=== PATIENT | female | born 1960 | race Caucasian/White ===

== ENCOUNTER → 2019-12-09 16:37 | Outpatient (BNVA) | payer OTHER, SELFPAY | PROVIDERS: Visit Provider Nurse Practitioner | DX: K21.9 Gastro-esophageal reflux disease without esophagitis (principal); K59.04 Chronic idiopathic constipation; R10.9 Unspecified abdominal pain; K58.9 Irritable bowel syndrome, unspecified; R35.0 Frequency of micturition | CPT/HCPCS: 99212 ==

== ENCOUNTER → 2020-02-11 11:12 | Outpatient (BNVA) | payer OTHER, SELFPAY | PROVIDERS: PCP Family Medicine; Visit Provider Student in an Organized Health Care Education/Training Program | DX: M17.11 Unilateral primary osteoarthritis, right knee (principal) | CPT/HCPCS: Q3014 ==

== ENCOUNTER → 2020-03-17 12:50 | Outpatient (BNVA) | payer OTHER, SELFPAY | PROVIDERS: PCP Nurse Practitioner Women's Health; Visit Provider Nurse Practitioner | DX: Z13.89 Encounter for screening for other disorder (principal) | CPT/HCPCS: Q3014 ==

== ENCOUNTER → 2021-07-05 10:05 | Outpatient (BNVA) | payer OTHER, SELFPAY | PROVIDERS: PCP Family Medicine; Visit Provider Nurse Practitioner | DX: K58.9 Irritable bowel syndrome, unspecified (principal); K59.04 Chronic idiopathic constipation; K21.9 Gastro-esophageal reflux disease without esophagitis; D36.9 Benign neoplasm, unspecified site; R10.33 Periumbilical pain | CPT/HCPCS: 99212 ==

== ENCOUNTER → 2021-08-30 10:55 | Outpatient (BNVA) | payer OTHER, SELFPAY | PROVIDERS: PCP Family Medicine; Visit Provider Nurse Practitioner | DX: K58.9 Irritable bowel syndrome, unspecified (principal); K21.9 Gastro-esophageal reflux disease without esophagitis; R10.33 Periumbilical pain; D36.9 Benign neoplasm, unspecified site | CPT/HCPCS: 99212 ==

== ENCOUNTER → 2022-01-13 14:17 | Outpatient (BNVA) | payer OTHER, SELFPAY | PROVIDERS: PCP Family Medicine; Referring Provider Family Medicine; Visit Provider Student in an Organized Health Care Education/Training Program | DX: M25.541 Pain in joints of right hand (principal) | CPT/HCPCS: 99202 ==

== ENCOUNTER 2022-01-27 14:10 | Outpatient (REF) | payer OTHER, SELFPAY ==
--- NOTE | ~2022-01-27 | XR_ITS ---
EXAMINATION: BILATERAL FOOT, BILATERAL ANKLE AND BILATERAL HAND AND WRIST. CLINICAL INFORMATION: Rheumatoid arthritis. COMPARISON: None TECHNIQUE: 3 views each foot 2 views each ankle and 3 views each hand/wrist. FINDINGS: Left foot and left ankle: The intertarsal, tarsometatarsal MTP and interphalangeal joints are maintained normal. No bony erosive changes or enthesophytes seen. Ankle mortise and subtalar joints are normal. No fracture, dislocation or soft tissue swelling seen. Right foot and right ankle: There is no visible acute fracture, dislocation. The ankle mortise and subtalar joints are normal. The right foot joints and visualized bones are grossly unremarkable. No bony erosive changes. No acute fracture or dislocation. Bilateral hand and wrist: There is mild loss of PIP and DIP joint space without periarticular spurring or bony erosive changes. The soft tissues are normal. No joint effusion suspected. No acute fracture or dislocation. XR/XR ankle RT min 3V IMPRESSION: Unremarkable bilateral foot and left ankle. Unremarkable bilateral hand and wrist.
--- NOTE | ~2022-01-27 | XR_ITS ---
EXAMINATION: BILATERAL FOOT, BILATERAL ANKLE AND BILATERAL HAND AND WRIST. CLINICAL INFORMATION: Rheumatoid arthritis. COMPARISON: None TECHNIQUE: 3 views each foot 2 views each ankle and 3 views each hand/wrist. FINDINGS: Left foot and left ankle: The intertarsal, tarsometatarsal MTP and interphalangeal joints are maintained normal. No bony erosive changes or enthesophytes seen. Ankle mortise and subtalar joints are normal. No fracture, dislocation or soft tissue swelling seen. Right foot and right ankle: There is no visible acute fracture, dislocation. The ankle mortise and subtalar joints are normal. The right foot joints and visualized bones are grossly unremarkable. No bony erosive changes. No acute fracture or dislocation. Bilateral hand and wrist: There is mild loss of PIP and DIP joint space without periarticular spurring or bony erosive changes. The soft tissues are normal. No joint effusion suspected. No acute fracture or dislocation. XR/XR foot RT min 3V IMPRESSION: Unremarkable bilateral foot and left ankle. Unremarkable bilateral hand and wrist.
--- NOTE | ~2022-01-27 | XR_ITS ---
EXAMINATION: BILATERAL FOOT, BILATERAL ANKLE AND BILATERAL HAND AND WRIST. CLINICAL INFORMATION: Rheumatoid arthritis. COMPARISON: None TECHNIQUE: 3 views each foot 2 views each ankle and 3 views each hand/wrist. FINDINGS: Left foot and left ankle: The intertarsal, tarsometatarsal MTP and interphalangeal joints are maintained normal. No bony erosive changes or enthesophytes seen. Ankle mortise and subtalar joints are normal. No fracture, dislocation or soft tissue swelling seen. Right foot and right ankle: There is no visible acute fracture, dislocation. The ankle mortise and subtalar joints are normal. The right foot joints and visualized bones are grossly unremarkable. No bony erosive changes. No acute fracture or dislocation. Bilateral hand and wrist: There is mild loss of PIP and DIP joint space without periarticular spurring or bony erosive changes. The soft tissues are normal. No joint effusion suspected. No acute fracture or dislocation. XR/XR foot LT min 3V IMPRESSION: Unremarkable bilateral foot and left ankle. Unremarkable bilateral hand and wrist.
--- NOTE | ~2022-01-27 | XR_ITS ---
EXAMINATION: BILATERAL FOOT, BILATERAL ANKLE AND BILATERAL HAND AND WRIST. CLINICAL INFORMATION: Rheumatoid arthritis. COMPARISON: None TECHNIQUE: 3 views each foot 2 views each ankle and 3 views each hand/wrist. FINDINGS: Left foot and left ankle: The intertarsal, tarsometatarsal MTP and interphalangeal joints are maintained normal. No bony erosive changes or enthesophytes seen. Ankle mortise and subtalar joints are normal. No fracture, dislocation or soft tissue swelling seen. Right foot and right ankle: There is no visible acute fracture, dislocation. The ankle mortise and subtalar joints are normal. The right foot joints and visualized bones are grossly unremarkable. No bony erosive changes. No acute fracture or dislocation. Bilateral hand and wrist: There is mild loss of PIP and DIP joint space without periarticular spurring or bony erosive changes. The soft tissues are normal. No joint effusion suspected. No acute fracture or dislocation. XR/XR hand wrist RT IMPRESSION: Unremarkable bilateral foot and left ankle. Unremarkable bilateral hand and wrist.
--- NOTE | ~2022-01-27 | XR_ITS ---
EXAMINATION: BILATERAL FOOT, BILATERAL ANKLE AND BILATERAL HAND AND WRIST. CLINICAL INFORMATION: Rheumatoid arthritis. COMPARISON: None TECHNIQUE: 3 views each foot 2 views each ankle and 3 views each hand/wrist. FINDINGS: Left foot and left ankle: The intertarsal, tarsometatarsal MTP and interphalangeal joints are maintained normal. No bony erosive changes or enthesophytes seen. Ankle mortise and subtalar joints are normal. No fracture, dislocation or soft tissue swelling seen. Right foot and right ankle: There is no visible acute fracture, dislocation. The ankle mortise and subtalar joints are normal. The right foot joints and visualized bones are grossly unremarkable. No bony erosive changes. No acute fracture or dislocation. Bilateral hand and wrist: There is mild loss of PIP and DIP joint space without periarticular spurring or bony erosive changes. The soft tissues are normal. No joint effusion suspected. No acute fracture or dislocation. XR/XR hand wrist LT IMPRESSION: Unremarkable bilateral foot and left ankle. Unremarkable bilateral hand and wrist.
--- NOTE | ~2022-01-27 | XR_ITS ---
EXAMINATION: BILATERAL FOOT, BILATERAL ANKLE AND BILATERAL HAND AND WRIST. CLINICAL INFORMATION: Rheumatoid arthritis. COMPARISON: None TECHNIQUE: 3 views each foot 2 views each ankle and 3 views each hand/wrist. FINDINGS: Left foot and left ankle: The intertarsal, tarsometatarsal MTP and interphalangeal joints are maintained normal. No bony erosive changes or enthesophytes seen. Ankle mortise and subtalar joints are normal. No fracture, dislocation or soft tissue swelling seen. Right foot and right ankle: There is no visible acute fracture, dislocation. The ankle mortise and subtalar joints are normal. The right foot joints and visualized bones are grossly unremarkable. No bony erosive changes. No acute fracture or dislocation. Bilateral hand and wrist: There is mild loss of PIP and DIP joint space without periarticular spurring or bony erosive changes. The soft tissues are normal. No joint effusion suspected. No acute fracture or dislocation. XR/XR ankle LT min 3V IMPRESSION: Unremarkable bilateral foot and left ankle. Unremarkable bilateral hand and wrist.
[2022-01-27 14:59] LABS: Basophils Absolute Auto 0.1 X10*3/uL (0.0-0.2); Basophils Percent Auto 0.6 % (0-2); Eosinophils Absolute Auto 0.2 X10*3/uL (0.0-0.4); Eosinophils Percent Auto 1.4 % (0-4); Hematocrit 36.6 % (37.0-47.0); Imm Gran Abs Auto 0.05 X10*3/uL (0.00-0.03); Imm Gran Pct Auto 0.3 % (0.0-0.4); Lymphocytes Absolute Auto 3.1 X10*3/uL (1.2-4.9); Lymphocytes Percent Auto 21.4 % (20-40); MANUAL DIFF FLAG NO; Mean Corpuscular HGB Conc 30.1 g/dl (31.0-35.0); Mean Corpuscular Hemoglobin 25.4 pg (27.0-33.0); Mean Corpuscular Volume 84.5 fL (80.0-98.0); Mean Platelet Volume 9.8 fL (9.4-12.3); Monocytes Absolute Auto 0.8 X10*3/uL (0.1-1.2); Monocytes Percent Auto 5.6 % (2-11); Neutrophils Absolute Auto 10.4 x10*3/uL (2.0-8.3); Neutrophils Percent Auto 70.7 % (45-73); Platelet Count 328 X10*3/uL (160-400); Red Blood Count 4.33 X10*6/uL (4.20-5.50); Red Cell Distribution Width 14.2 % (11.0-16.0); White Blood Count 14.7 X10*3/uL (4.8-10.8)
[2022-01-27 15:56] LABS: Alanine Aminotransferase 14 U/L (0-31); Albumin Level 4.1 g/dL (3.5-5.0); Alkaline Phosphatase 115 U/L (39-117); Anion Gap 16 (12-20); Aspartate Amino Transferase 14 U/L (5-31); Bilirubin Total 0.2 mg/dL (0.0-1.0); Blood Urea Nitrogen 16 mg/dL (9-16); C Reactive Protein 4.13 mg/dL (< or = 0.50); Calcium 9.1 mg/dL (8.4-10.2); Carbon Dioxide 22 mmol/L (22-29); Chloride 107 mmol/L (96-108); Estimated Glomerular Filt Rate > 60; Glucose Random 103 mg/dL (60-115); Potassium 4.5 mmol/L (3.3-5.1); Rheumatoid Factor < 13.0 IU/mL (<15.0); Sodium 140 mmol/L (135-145); Total Protein 7.1 g/dL (6.5-8.0); Uric Acid 4.9 mg/dL (2.4-5.7)
[2022-01-27 16:02] LABS: Estimated Average Glucose 105 mg/dL; Hemoglobin A1c % 5.3 %
[2022-01-27 16:23] LABS: Erythrocyte Sedimentation Rate 44 MM/HR (0-20)
[2022-01-29 12:33] LABS: Cyclic Citrullinated Peptide <16 UNITS
[2022-01-29 15:13] LABS: Anti Nuclear Antibody Screen NEGATIVE (NEGATIVE)
[2022-01-30 11:58] LABS: Complement C3 165 mg/dL (83-193)
[2022-01-30 13:47] LABS: Anti DNA DS Antibody 1 IU/mL; Antibody to SS-A Antigen <1.0 NEG AI (<1.0 NEG); Antibody to SS-B Antigen <1.0 NEG AI (<1.0 NEG); SM/Ribonucleoprotein Ab <1.0 NEG AI (<1.0 NEG); Smith Protein <1.0 NEG AI (<1.0 NEG)
[2022-01-30 18:54] LABS: Lyme Abs Screen <0.90 index
[2022-01-31 12:45] LABS: Prot Elec - Albumin 3.7 g/dL (3.8-4.8); Prot Elec - Alpha1 0.4 g/dL (0.2-0.3); Prot Elec - Alpha2 1.1 g/dL (0.5-0.9); Prot Elec - Beta 1 0.6 g/dL (0.4-0.6); Prot Elec - Beta 2 0.5 g/dL (0.2-0.5); Prot Elec - Gamma 0.7 g/dL (0.8-1.7)
[2022-01-31 15:24] LABS: IgA 383 mg/dL (47-310); IgG 578 mg/dL (600-1640); IgM 146 mg/dL (50-300)
[2022-01-31 19:29] LABS: TS Negative Control Passed; TS Panel A 0; TS Panel B 0; TS Positive Control Passed; TSpotTB Negative (Negative)
[2022-02-01 05:26] LABS: HBS Num1 1.39 mIU/mL (0-7.99); HBc Num1 0.14 S/CO (0.00-0.79); Hepatitis A Antibody IgM 0.16 Index (0-0.79); Hepatitis B Core Antibody Nonreactive (Nonreactive); ~HepC Num1 0.05 S/CO (0.00-0.79); ~Hepatitis A Antibody IgM Nonreactive (Nonreactive); ~Hepatitis B Surface Antibody NONREACTIVE (Nonreactive); ~Hepatitis C Antibody Nonreactive (Nonreactive)
[2022-02-01 05:37] LABS: HBsAGNum1 0.25 S/CO (0.00-0.99); Hepatitis B Surface Antigen Negative (Negative)
[2022-02-02 12:52] LABS: Angiotensin Converting Enzyme 8.6 U/L (9-67)
[2022-02-04 20:28] LABS: HLA B27 Negative (Negative)
== END 2022-01-27 14:11 | disposition home or self-care (01) ==
LOC: HO.LAB 14:10
PROVIDERS: PCP Nurse Practitioner Family; Visit Provider Student in an Organized Health Care Education/Training Program
DX: M06.9 Rheumatoid arthritis, unspecified (principal); R73.03 Prediabetes; M25.50 Pain in unspecified joint; G89.29 Other chronic pain; M54.50 Low back pain, unspecified; Z11.7 Encounter for testing for latent tuberculosis infection; Z11.59 Encounter for screening for other viral diseases
CPT/HCPCS: 36415; 73110; 73130; 73610; 73630; 80053; 82164; 82784; 83036; 84165; 84550; 85025; 85652; 86038; 86039; 86140; 86160; 86200; 86225; 86235; 86334; 86431; 86481; 86617; 86618; 86704; 86706; 86709; 86803; 86812; 87340

== ENCOUNTER 2022-02-08 17:42 | Outpatient (REF) | payer OTHER, SELFPAY | END 2022-02-08 17:43 | disposition home or self-care (01) | LOC: HO.MRI 17:42 | PROVIDERS: Visit Provider Student in an Organized Health Care Education/Training Program | DX: Z13.89 Encounter for screening for other disorder (principal) ==

== ENCOUNTER → 2022-03-14 11:47 | Outpatient (BNVA) | payer OTHER, SELFPAY | PROVIDERS: PCP Nurse Practitioner Family; Visit Provider Student in an Organized Health Care Education/Training Program | DX: M06.09 Rheumatoid arthritis without rheumatoid factor, multiple sites (principal); Z79.631 Long term (current) use of antimetabolite agent | CPT/HCPCS: 99212 ==

== ENCOUNTER 2022-03-26 00:47 | Emergency (ER) | payer OTHER, SELFPAY ==
--- NOTE | ~2022-03-26 | CT_ITS ---
EXAMINATION: CT ABDOMEN AND PELVIS WITHOUT CONTRAST CLINICAL INFORMATION: Acute lower abdominal pain COMPARISON: 09/16/2018 TECHNIQUE: Multidetector volumetric imaging was performed from the superior aspect of the liver through the pubic symphysis. Sagittal and coronal reformatted images were obtained on the technologist's workstation. This CT examination was performed using dose optimization techniques as appropriate, variously including the following: *Automated exposure control *Adjustment of mA and/or kV according to patient size (this includes techniques or standardized protocols for targeted exams where dose is matched to indication/reason for exam; i.e. extremities or head) *Use of iterative reconstruction technique DLP: 736 mGy-cm FINDINGS: LUNG BASES: The visualized lung bases are unremarkable. LIVER, GALLBLADDER, AND BILIARY TREE: The liver is normal in size, shape, and attenuation. No focal hepatic lesion or biliary ductal dilatation is present. Cholecystectomy PANCREAS: Unremarkable. SPLEEN: Unremarkable. ADRENAL GLANDS: Unremarkable. KIDNEYS AND URETERS: The kidneys are normal in size, shape, and attenuation. There our 3 if not 4 punctate nonobstructive calculi in the left kidney. No urinary calculi on the right. No ureteral calculi. No hydronephrosis or hydroureter.. No perinephric stranding. BLADDER: Unremarkable. GASTROINTESTINAL TRACT: The small and large bowel are unremarkable. Stool present throughout the colon. The appendix is unremarkable. ABDOMINAL WALL: No significant hernia is appreciated. LYMPH NODES: Normal. VASCULAR: Unremarkable. PELVIC VISCERA: Hysterectomy. No adnexal abnormalities. OSSEOUS STRUCTURES: No acute or suspicious osseous abnormalities. CT/CT abdomen pelvis wo IV con IMPRESSION: * No acute findings within the abdomen or pelvis to explain the patient's symptomatology. * Left nonobstructive nephrolithiasis. * No ureteral calculi or hydronephrosis. * Cholecystectomy and hysterectomy. Fleischner guidelines were followed.
[2022-03-26 01:08] VITALS: BP 160/58; PULSE 80; RESP 16; TEMP 36.6; O2SAT 99; BMI 25.7
[2022-03-26 02:22] LABS: Basophils Absolute Auto 0.1 X10*3/uL (0.0-0.2); Basophils Percent Auto 0.4 % (0-2); Eosinophils Absolute Auto 0.3 X10*3/uL (0.0-0.4); Eosinophils Percent Auto 1.9 % (0-4); Hematocrit 31.7 % (37.0-47.0); Hemoglobin 9.6 g/dl (12.0-16.0); Imm Gran Abs Auto 0.05 X10*3/uL (0.00-0.03); Imm Gran Pct Auto 0.3 % (0.0-0.4); Lymphocytes Absolute Auto 5.5 X10*3/uL (1.2-4.9); MANUAL DIFF FLAG SCAN; Mean Corpuscular HGB Conc 30.3 g/dl (31.0-35.0); Mean Corpuscular Hemoglobin 24.4 pg (27.0-33.0); Mean Corpuscular Volume 80.5 fL (80.0-98.0); Mean Platelet Volume 9.3 fL (9.4-12.3); Monocytes Percent Auto 6.6 % (2-11); Neutrophils Absolute Auto 7.6 x10*3/uL (2.0-8.3); Neutrophils Percent Auto 52.8 % (45-73); Platelet Count 331 X10*3/uL (160-400); Red Blood Count 3.94 X10*6/uL (4.20-5.50); Red Cell Distribution Width 14.6 % (11.0-16.0); SCAN SMEAR FLAG 1; White Blood Count 14.5 X10*3/uL (4.8-10.8)
[2022-03-26 02:43] LABS: Alanine Aminotransferase 17 U/L (0-31); Albumin Level 3.9 g/dL (3.5-5.0); Alkaline Phosphatase 86 U/L (39-117); Anion Gap 14 (12-20); Aspartate Amino Transferase 13 U/L (5-31); Bilirubin Total < 0.2 mg/dL (0.0-1.0); Blood Urea Nitrogen 16 mg/dL (9-16); Calcium 8.9 mg/dL (8.4-10.2); Carbon Dioxide 25 mmol/L (22-29); Chloride 105 mmol/L (96-108); Creatinine Clr Calc Pharmacy 83.9; Estimated Glomerular Filt Rate > 60; Glucose Fasting 135 mg/dL (60-99); Lipase 52 U/L (8-78); Potassium 3.9 mmol/L (3.3-5.1); Sodium 140 mmol/L (135-145); Total Protein 6.4 g/dL (6.5-8.0)
--- OUTSIDE RECORDS SUMMARY | 2022-03-26 02:43 | XMS_ITS | Continuity of Care Document ---
:1960 Author Organization [facility] Address [address] [place] [address]- Care Team Providers Name Role Phone Amilcar Hadley MD Primary Care Physician Encounter [facility] Date(s): 02/26/19 - 03/05/19 [facility] [address] [place] [address]- [facility] Encounter Diagnosis Encounter to establish care with new doctor (Discharge Diagnosis) - 02/26/19 Seizure disorder (Discharge Diagnosis) - 02/26/19 Hypertension (Discharge Diagnosis) - 02/26/19 S/P total hysterectomy and bilateral salpingo-oophorectomy (Discharge Diagnosis) - 02/26/19 Anemia (Discharge Diagnosis) - 02/26/19 COPD - Chronic obstructive pulmonary disease (Discharge Diagnosis) - 02/26/19 Bipolar disorder (Discharge Diagnosis) - 02/26/19 Health care maintenance (Discharge Diagnosis) - 02/26/19 Attending Physician: Amilcar Hadley MD Allergies, Adverse Reactions, Alerts Substance Reaction Severity Status propranolol Active doxycycline hives Active sulfamethoxazole-trimethoprim hives Ac tive aspirin dyspepsia Active morphine Morphine allergy Active nabumetone Active thiazide diuretics hives Active Bactrim hives Active Contrast Dye1 hives Active SEROquel XR unknown Active 1? Rash Immunizations Given and Recorded Vaccine Date Status Refusal Reason influenza virus vaccine, inactivated1 12/05/17 Given influenza virus vaccine, inactivated2 11/23/16 Given influenza virus vaccine, inactivated 12/23/15 Given influenza virus vaccine, inactivated3 12/11/13 Given influenza virus vaccine, inactivated 11/30/12 Given pneumococcal 13-valent vaccine4 11/23/16 Given pneumococcal 23-valent vaccine5 04/09/14 Given pneumococcal 23-valent vaccine6 04/09/14 Given pneumococcal 23-valent vaccine 11/30/12 Given tetanus/diphtheria/pertussis, acel(Tdap) 04/25/13 Given Not Given Vaccine Date Status Refusal Reason pneumococcal 23-valent vaccine 10/21/12 Not Given P atient Refuses 1Result Comment: [12/05/2017] [facility]#[id number] Comment: [11/23/2016] [facility] # [id number] Comment: [12/11/2013] vis [id number] Comment: [11/23/2016] [facility] # [id number] Comment: [04/09/2014] pt stated that she was never given the pneumo vaccine. pneumo given today Result Comment: [04/09/2014] PT CLEARLY STATED THAT SHE WAS NEVER OFFERED OR GIVEN THE PNEUMO VACCINE. PT HAS ASTHMA, SO VACCINE WAS GIVEN PER KATHIE[04/09/2014 Uncharted] enterred in error Medications Abilify 5 mg oral tablet 5 mg, 1, tablet, By Mouth, Daily, Refills 0, Maintenance, 01/15/17 13:19:45 Start Date: 01/15/17 Status: OrderedAdvair Diskus 500 mcg-50 mcg inhalation powder Inhalation, 2 times a day, Refills 0, Maintenance, 12/13/18 14:09:00 EDT Start Date: 12/13/18 Status: Orderedalbuterol CFC free 90 mcg/inh inhalation aerosol 1, puffs, Inhalation, 4 times a day, PRN, # 1 each, Refills 1, Tot. Refills 1, Maintenance, 02/13/2014:55:00 EST, Inhaler, Route to Pharmacy Electronically, [id number], [facility], 154.94, cm, 02/07/19 11:53:00 EST, He... Start Date: 02/13/19 Status: OrderedAllegra = 360 mg, By Mouth, 2 times a day, 0 Refills, Maintenance, 01/24/17 10:14:10 Start Date: 01/24/17 Status: OrderedAuto injector Freestyle lite for lancets Auto injector Freestyle lite for lancets, See Instructions, # 1 units, Refills 0, Tot. Refills 0, Maintenance, E11.9 test blood sugars daily as instructed, 01/10/18 10:17:47 EST, Compound Start Date: 01/10/18 Status: Orderedcholecalciferol 1000 intl units oral tablet 2 tablet = 2,000 International_Units, By Mouth, Daily, # 180 tablet, 3 Refills, Maintenance, 01/21/18 10:56:43 EST, Tablet Start Date: 01/21/18 Stop Date: 01/16/19 Status: OrderedCHOPAT SPLINT CHOPAT SPLINT, See Instructions, # 1 each, Refills 0, Tot. Refills 0, Maintenance, RIGHT KNEE PATEALL TENDONITIS, 06/28/17 11:45:06 EDT, Compound Start Date: 06/28/17 Status: OrderedCod Liver Oil oral capsule 1 capsule, By Mouth, Daily, # 90 capsule, 0 Refills, Maintenance, 02/26/19 10:39:00 EST, Capsule, [facility], 1 capsule By Mouth Daily, 154.94, cm, 02/26/19 10:16:00 EST, Height, 84, kg, 10/05/192:07:00 EDT, Dry Weight Start Date: 02/26/19 Status: OrderedCONTROL SUBSTANCE CONTROL SUBSTANCE, Refills 0, Maintenance, 02/23/16 14:19:04, Compound Start Date: 02/23/16 Status: Orderedepinephrine 0.3 mg injectable solution 0 Refills, Maintenance, 12/13/18 14:05:43 EDT Start Date: 12/13/18 Status: Orderedestradiol 0.05 mg/24 hours weekly transdermal film, extended release 1 patch, Topically, Every week, # 13 patch, 0 Refills, Maintenance, 02/27/19 13:56:00 EST, Patch, [facility], 158.5, cm, 02/27/19 13:31:00 EST, Height, 84, kg, 10/05/18 2:07:00 EDT, Dry Weight Start Date: 02/27/19 Stop Date: 05/28/19 Status: OrderedFish Oil 1000 mg oral capsule 1 capsule = 1,000 mg, By Mouth, Daily, # 90 capsule, 3 Refills, Maintenance, 02/26/19 10:39:00 EST, Capsule, [facility], 154.94, cm, 02/26/19 10:16:00 EST, Height, 84, kg, 10/05/18 2:07:00 EDT, Dry Weight Start Date: 02/26/19 Status: OrderedFreestyle Lite Monitor See Instructions, # 1 units, Maintenance, dx e11.9, 01/09/18 17:01:32 EST, Compound Start Date: 01/09/18 Status: OrderedFreestyle Lite Test Strips See Instructions, # 1 box, Refills 2, Tot. Refills 2, Maintenance, please test 2x daily, 08/14/17 16:46:21 EDT, dx e11.9, Compound Start Date: 08/14/17 Status: Orderedgabapentin 300 mg oral capsule 300 mg, 1, capsule, By Mouth, 3 times a day, # 90 capsule, Refills 0, Tot. Refills 0, Maintenance, 02/04/19 15:07:00 EST, Route to Pharmacy Electronically, [facility], 154.94, cm, 12/13/18 13:54:00 EDT, Height, 84, kg, 10/05/18 2:07:00 EDT, Dry... Start Date: 02/04/19 Status: OrderedGas-X = 80 mg, 3 times a day after meals and bedtime, 0 Refills, Maintenance, 12/13/18 14:08:05 EDT Start Date: 12/13/18 Status: OrderedHeating Pad See Instructions, # 1 each, Maintenance, apply to jaw for 20 minutes several times per day as neededfor pain, 01/08/18 13:12:50 EST, Compound Start Date: 01/08/18 Status: OrderedhydrOXYzine hydrochloride 25 mg oral tablet 1 tablet = 25 mg, By Mouth, Daily, # 30 tablet, 0 Refills, Maintenance, 12/13/18 14:06:45 EDT, Tablet Start Date: 12/13/18 Status: Orderedibuprofen 600 mg oral tablet 600 mg, 1, tablet, By Mouth, Every 8 hours, PRN, with food or milk, # 30 tablet, Refills 0, Tot. Refills 0, Maintenance, Pain , Moderate, 02/26/19 10:41:00 EST, Route to Pharmacy Electronically, [facility], 154.94, cm, 02/26/19 10:16:00 EST, Hei... Start Date: 02/26/19 Status: OrderedImitrex 100 mg oral tablet 1 tablet = 100 mg, By Mouth, Daily, PRN for migraine headache, may repeat dose after 2 hours up to amaximum of 2, # 9 tablet, 0 Refills, Maintenance, 12/13/18 14:08:24 EDT, Tablet Start Date: 12/13/18 Status: Orderedlactase 9000 u oral tablet 1 tablet = 9,000 units, By Mouth, Daily, 1 tablet by mouth daily with the first bite or drink, # 30 tablet, 5 Refills, Maintenance, 12/04/16 9:02:00, Tablet Start Date: 12/04/16 Stop Date: 06/02/17 Status: OrderedLancets See Instructions, # 100 each, Refills 7, Tot. Refills 7, Maintenance, Test blood sugar twice daily, 04/27/17 10:23:06, Compound Start Date: 04/27/17 Status: Orderedlisinopril 10 mg oral tablet 10 mg, 1, tablet, By Mouth, Daily, # 30 tablet, Refills 1, Tot. Refills 1, Soft Stop, 02/03/19 16:58:00 EST, Route to Pharmacy Electronically, [facility], 154.94, cm, 12/13/18 13:54:00 EDT, Height, 84, kg, 10/05/18 2:07:00 EDT, Dry Weight Start Date: 02/03/19 Status: Orderedmeclizine 25 mg oral tablet 1 tablet = 25 mg, By Mouth, 3 times a day, PRN for dizziness, # 30 tablet, 0 Refills, Maintenance, 12/13/18 14:05:55 EDT, Tablet Start Date: 12/13/18 Status: Orderedmelatonin 3 mg oral tablet 1 tablet = 3 mg, By Mouth, Daily at bedtime, PRN for insomnia, # 60 tablet, 0 Refills, Maintenance, 12/13/18 14:07:38 EDT, Tablet Start Date: 12/13/18 Status: OrderedmetFORMIN 750 mg oral tablet, extended release 1 tablet = 750 mg, By Mouth, Daily, with evening meal, # 30 tablet, 6 Refills, Maintenance, 02/28/2010:35:00 EST, ER Tablet, [facility], 158.5, cm, 02/27/19 13:31:00 EST, Height, 84, kg, 10/05/18 2:07:00 EDT, Dry Weight Start Date: 02/28/19 Stop Date: 09/26/19 Status: Orderedmontelukast 10 mg oral tablet See Instructions, # 90 tablet, Refills 1 Tot. Refills 1, TAKE ONE (1) TABLET BY MOUTH ONCE DAILY IN THE EVENING., [facility] Start Date: 10/31/18 Status: OrderedOne Touch Ultra 2 Glucose Meter See Instructions, # 1 each, Maintenance, Test fasting glucose daily in morning, and one random test.(Total twice daily), 04/27/17 10:22:17, Compound Start Date: 04/27/17 Status: OrderedOne Touch Ultra Test Strips See Instructions, # 100 each, Refills 7, Tot. Refills 7, Maintenance, Use with glucometer. Test twice dialy., 04/27/17 10:22:28, Compound Start Date: 04/27/17 Status: Orderedorphenadrine 100 mg oral tablet, extended release 100 mg, By Mouth, Daily at bedtime, # 90 each, Refills 1, Tot. Refills 1, Maintenance, 06/18/18 13:37:18 EDT, Route to Pharmacy Electronically, [id number], [facility] Start Date: 06/18/18 Status: OrderedOrthopedic shoes Orthopedic shoes, See Instructions, # 1 each, Refills 0, Tot. Refills 0, Maintenance, Orthopedic shoes DX osteoarthritis and knee pain, 06/07/16 9:49:36, Compound Start Date: 06/07/16 Status: OrderedOrthotics See Instructions, # 1 pair, Maintenance, Padded insoles with arch supports, 06/01/17 17:15:33 EDT, Compound Start Date: 06/01/17 Status: Orderedpantoprazole 40 mg oral delayed release tablet 40 mg, By Mouth, 2 times a day, # 180 each, Refills 3, Tot. Refills 3, Maintenance, 08/22/16 14:18:07, Route to Pharmacy Electronically, [id number], [facility] Start Date: 08/22/16 Stop Date: 08/17/17 Status: OrderedQvar Redihaler 80 mcg/inh inhalation aerosol Inhalation, 2 times a day, 0 Refills, Maintenance, 12/13/18 14:07:57 EDT Start Date: 12/13/18 Status: OrderedRisperidone = 3 mg, By Mouth, 2 times a day, 0 Refills, Maintenance, 05/08/18 14:51:59 EDT Start Date: 05/08/18 Status: OrderedSingulair 10 mg oral tablet 10 mg, 1, tablet, By Mouth, Daily in PM, # 90 tablet, Refills 0, Tot. Refills 0, Maintenance, 07/23/18 13:46:52 EDT, Route to Pharmacy Electronically, [id number], [facility] Start Date: 07/23/18 Status: OrderedSpiriva Respimat 1.25 mcg/inh inhalation aerosol 2 puffs, Inhalation, Daily, # 4 Gm, 0 Refills, Maintenance, 12/13/18 14:08:47 EDT, Aerosol Start Date: 12/13/18 Status: OrderedTEGretol 200 mg oral tablet See Instructions, 1 tablet By Mouth 2 times a day, PRN, Refills 0, Maintenance, 01/24/17 10:13:17 EST, Instructions Replace Required Details Start Date: 01/24/17 Status: OrderedTEGretol XR 400 mg oral tablet, extended release 400 mg, 1, tablet, By Mouth, 2 times a day, Refills 0, Maintenance, 01/24/17 10:12:52 Start Date: 01/24/17 Status: OrderedTopamax 100 mg oral tablet 1 tablet = 100 mg, By Mouth, 2 times a day, Take 100 + 50 for total 150 mg twice daily. neurologist,# 180 tablet, 0 Refills, Maintenance, 01/24/17 10:13:34 EST, Tablet Start Date: 01/24/17 Status: OrderedTopamax 50 mg oral tablet 1 tablet = 50 mg, By Mouth, 2 times a day, Take 100 + 50 for total 150 mg twice daily. Neurologist, PRN, # 180 tablet, 0 Refills, Maintenance, 01/24/17 10:13:43 EST, Tablet Start Date: 01/24/17 Status: OrderedTylenol Extra Strength 500 mg oral tablet 1-2 tablets, By Mouth, Every 4 hours, PRN for pain, no more than 6 tablets daily, # 50 tablet, 0 Refills, Maintenance, 02/26/19 10:41:00 EST, Tablet, [facility], 154.94, cm, 02/26/19 10:16:00 EST, Height, 84, kg, 10/05/18 2:07:00 EDT, Dry Weight Start Date: 02/26/19 Status: OrderedVitamin B Complex with Folic Acid oral tablet 1 tablet, By Mouth, Daily, # 90 tablet, 3 Refills, Maintenance, 02/26/19 10:39:00 EST, Tablet, [email or web address], 1 tablet By Mouth Daily, 154.94, cm, 02/26/19 10:16:00 EST, Height, 84, kg, 10/05/18 2:07:00 EDT, Dry Weight Start Date: 02/26/19 Status: OrderedVitamin B Complex with Folic Acid oral tablet 1 tablet, By Mouth, Daily, # 30 tablet, 11 Refills, Maintenance, 08/23/17 17:31:01 EDT, Tablet, 1 tablet By Mouth Daily,x30 days Start Date: 08/23/17 Stop Date: 08/18/18 Status: OrderedVitamin C 500 mg oral tablet 1 tablet = 500 mg, By Mouth, Daily, # 90 tablet, 0 Refills, Maintenance, 05/29/18 9:33:38 EDT, Tablet Start Date: 05/29/18 Stop Date: 08/27/18 Status: OrderedWALKER WITH WHEELS AND SEAT WALKER WITH WHEELS AND SEAT, See Instructions, # 1 each, Refills 0, Tot. Refills 0, Maintenance, walker with wheels and seat repair to brakes diagnosis: frequent falls, right knee pain,osteoarthritis, and seizure disorder, 08/02/16 16:25:07, Compound Start Date: 08/02/16 Status: OrderedWrist splint - Left and Right Wrist splint - Left and Right, See Instructions, # 1 pair, Refills 0, Tot. Refills 0, Maintenance, Dx: B Carpal Tunnel Syndrome, 03/22/17 10:57:09, Compound Start Date: 03/22/17 Status: OrderedXolair 150 mg subcutaneous injection 0 Refills, Maintenance, 12/13/18 14:05:26 EDT Start Date: 12/13/18 Status: Ordered Problem List Condition Effective Dates Status Health Status Informant Abdominal pain(Confirmed) Active Atopy(Confirmed)1, 2 05/05/10 Active Back pain(Confirmed) Active Bipolar disorder(Confirmed)3 Active COPD - Chronic obstructive pulmonary Active disease(Confirmed) GERD - Gastro-esophageal reflux Active disease(Confirmed)4 H/O: prolonged corticosteroid Active therapy(Confirmed) Hearing loss(Confirmed)5 Active S/P total hysterectomy and bilateral Active salpingo-oophorectomy(Confirmed) Hypertension(Confirmed) Active Kidney stones(Confirmed) Active Knee pain, right- 08/29/13 Xray showed Active loss of medial meniscus(Confirmed) Hx of long-term (current) use of Active postmenopausal hormone replacement therapy(Confirmed) UTI (lower urinary tract Active infection)(Confirmed) Migraine(Confirmed) Active OA - Osteoarthritis(Confirmed) Active Obesity(Confirmed) Active Pelvic pain in female(Confirmed) Active Pernicious anemia(Confirmed) Active PTSD (post-traumatic stress Active disorder)(Confirmed) Seasonal allergies(Confirmed) Active Shoulder pain, left(Confirmed) Active Shoulder pain, right(Confirmed) Active MRSA colonization(Confirmed) Active 1RAST 36 ALLERGENS, ALL 0, EXC 3+ ROACHES. IGE 83, WNL, 01/02/13.2skin test pos: mold, trees, [id number] Renae [id number] Diagnosis Diagnosis Type Effective Dates Health Clinical Infor mant Status Service Encounter to Discharge 02/26/19 establish care with Diagnosis new doctor Bipolar disorder Discharge 02/26/19 Diagnosis COPD - Chronic Discharge 02/26/19 obstructive Diagnosis pulmonary disease Seizure disorder Discharge 02/26/19 Diagnosis Hypertension Discharge 02/26/19 Diagnosis S/P total Discharge 02/26/19 hysterectomy and Diagnosis bilateral salpingo-oophorecto my Anemia Discharge 02/26/19 Diagnosis Health care Discharge 02/26/19 maintenance Diagnosis Vital Signs Most recent to oldest [Reference Range]: 1 Height 154.94 cm (02/26/19 10:16 AM) Weight 80.2 kg (02/26/19 10:16 AM) Oxygen Saturation [94-100 %] 95 % (02/26/19 10:16 AM) Pulse Rate [55-90 bpm] 74 bpm (02/26/19 10:16 AM) Body Mass Index [18.5-24.99] 33.41 *>HHI* (02/26/19 10:16 AM) Blood Pressure [90-138/55-84 mm Hg] 130/72 mm Hg (02/26/19 10:16 AM) Temperature [96.8-100.4 DegF] 97.4 DegF (02/26/19 10:16 AM) Blood pressure sites Arm, left (02/26/19 10:16 AM) Weight Obtained Via Standing scale (02/26/19 10:16 AM) Social History Social History Type Response Smoking Status Former smoker; Tobacco user in household: No; Type: Cigarettes; Tobacco use times per day: UP TO 3 PPD; Stopped at age: 52; entered on: 04/14/14 Sex
--- OUTSIDE RECORDS SUMMARY | 2022-03-26 02:43 | XMS_ITS | Continuity of Care Document ---
:1960 Author Organization [facility] MESMERIST Address [address] [place] [address]- Care Team Providers Name Role Phone Jomar RUBALCAVA, Amilcar Primary Care Physician Encounter [facility] Date(s): 02/27/19 - 03/06/19 [facility] [place] [address] [place] [address]- [facility] Attending Physician: Cami Guthrie MD Referring Physician: Cami Isaac MD Allergies, Adverse Reactions, Alerts Substance Reaction [...] Given P atient Refuses 1Result Comment: [12/05/2017] [facility]#[id number] Comment: [11/23/2016] [facility] # [id number] Comment: [12/11/2013] vis [id number] Comment: [11/23/2016] [facility] # [id number] Comment: [04/09/2014] pt stated that she was [...] 02/13/2014:55:00 EST, Inhaler, Route to Pharmacy Electronically, [id number], [facility], 154.94, cm, 02/07/19 11:53:00 EST, He... [...] 0 Refills, Maintenance, 02/26/19 10:39:00 EST, Capsule, [facility], 1 capsule By Mouth Daily, 154.94, cm, 02/26/19 10:16:00 EST, Height, 84, kg, 192:07:00 EDT, Dry Weight Start Date: 02/26/19 Status: OrderedCONTROL SUBSTANCE CONTROL SUBSTANCE, Refills 0, Maintenance, 02/23/16 14:19:04, Compound Start Date: 02/23/16 Status: Orderedepinephrine 0.3 mg injectable solution 0 Refills, Maintenance, 12/13/18 14:05:43 EDT Start Date: 12/13/18 Status: Orderedestradiol 0.05 mg/24 hours weekly transdermal film, extended release 1 patch, Topically, Every week, # 13 patch, 0 Refills, Maintenance, 02/27/19 13:56:00 EST, Patch, [facility], 158.5, cm, 02/27/19 13:31:00 EST, Height, 84, kg, 10/05/18 2:07:00 EDT, Dry Weight Start Date: 02/27/19 Stop Date: 05/28/19 Status: OrderedFish Oil 1000 mg oral capsule 1 capsule = 1,000 mg, By Mouth, Daily, # 90 capsule, 3 Refills, Maintenance, 02/26/19 10:39:00 EST, Capsule, [facility], 154.94, cm, 02/26/19 10:16:00 EST, Height, [...] 02/04/19 15:07:00 EST, Route to Pharmacy Electronically, [facility], 154.94, cm, 12/13/18 13:54:00 EDT, Height, [...] 02/26/19 10:41:00 EST, Route to Pharmacy Electronically, [facility], 154.94, cm, 02/26/19 10:16:00 EST, Hei... [...] 02/03/19 16:58:00 EST, Route to Pharmacy Electronically, [facility], 154.94, cm, 12/13/18 13:54:00 EDT, Height, [...] 6 Refills, Maintenance, 02/28/2010:35:00 EST, ER Tablet, [facility], 158.5, cm, 02/27/19 13:31:00 EST, Height, 84, kg, 10/05/18 2:07:00 EDT, Dry Weight Start Date: 02/28/19 Stop Date: 09/26/19 Status: Orderedmontelukast 10 mg oral tablet See Instructions, # 90 tablet, Refills 1 Tot. Refills 1, TAKE ONE (1) TABLET BY MOUTH ONCE DAILY IN THE EVENING., [facility] Start Date: 10/31/18 Status: OrderedOne Touch [...] 06/18/18 13:37:18 EDT, Route to Pharmacy Electronically, [id number], [facility] Start Date: 06/18/18 Status: OrderedOrthopedic shoes [...] Maintenance, 08/22/16 14:18:07, Route to Pharmacy Electronically, [id number], [facility] Start Date: 08/22/16 Stop Date: 08/17/17 [...] 07/23/18 13:46:52 EDT, Route to Pharmacy Electronically, [id number], [facility] Start Date: 07/23/18 Status: OrderedSpiriva Respimat [...] 0 Refills, Maintenance, 02/26/19 10:41:00 EST, Tablet, [facility], 154.94, cm, 02/26/19 10:16:00 EST, Height, 84, kg, 10/05/18 2:07:00 EDT, Dry Weight Start Date: 02/26/19 Status: OrderedVitamin B Complex with Folic Acid oral tablet 1 tablet, By Mouth, Daily, # 90 tablet, 3 Refills, Maintenance, 02/26/19 10:39:00 EST, Tablet, [facility], 1 tablet By Mouth Daily, 154.94, [...] 81, WNL, 01/02/13.2skin test pos: mold, trees, [id number] Renae [id number] pantozapole,[facility] Procedures Procedure Date Related Diagnosis Body Site Status Cataract care Completed Vital Signs Most recent to oldest [Reference Range]: 1 Height 158.5 cm (02/27/19 1:31 PM) Weight 80.6 kg (02/27/19 1:31 PM) Body Mass Index [18.5-24.99] 32.08 *>HHI* (02/27/19 1:31 PM) Blood Pressure [90-138/55-84 mm Hg] 106/56 mm Hg (02/27/19 1:31 PM) Blood pressure sites Arm, right (02/27/19 1:31 PM) Weight Obtained Via Standing scale (02/27/19 1:31 PM) Social History Social History Type Response Smoking Status Former smoker; Tobacco user in household: No; Type: Cigarettes; Tobacco use times per day: UP TO 3 PPD; Stopped at age: 52; entered on: 04/14/14 Sex
--- OUTSIDE RECORDS SUMMARY | 2022-03-26 02:43 | XMS_ITS | Continuity of Care Document ---
:1960 Author Organization [facility] Address [address] [place] [address]- Care Team Providers Name Role Phone Jomar RUBALCAVA, Amilcar Primary Care Physician Encounter [facility] Date(s): 09/11/19 - 10/11/19 [facility] [address] [place] [address]- [facility] Allergies, Adverse Reactions, Alerts Substance Reaction Severity Status propranolol Active doxycycline hives Active amoxicillin abdominal pain Active sulfamethoxazole-trimethoprim hives Ac tive aspirin dyspepsia [...] Given P atient Refuses 1Result Comment: [12/05/2017] [facility]#[id number] Comment: [11/23/2016] [facility] # [id number] Comment: [12/11/2013] vis [id number] Comment: [11/23/2016] [facility] # [id number] Comment: [04/09/2014] pt stated that she was never given the pneumo vaccine. pneumo given today Result Comment: [04/09/2014] PT CLEARLY STATED THAT SHE WAS NEVER OFFERED OR GIVEN THE PNEUMO VACCINE. PT HAS ASTHMA, SO VACCINE WAS GIVEN PER KATHIE[04/09/2014 Uncharted] enterred in error Medications Abilify 5 mg oral tablet See Instructions, 1.5 tablet By Mouth Daily, Refills 0, Maintenance, 01/15/17 13:19:45 EST, Instructions Replace Required Details Start Date: 01/15/17 Status: Orderedacetaminophen-oxyCODONE 325 mg-5 mg oral tablet 1, tablet, By Mouth, Every 6 hours, PRN, Refills 0, Tot. Refills 0, Maintenance, 07/31/19 11:10:00 EDT, Partial fill upon patient request Start Date: 07/31/19 Status: OrderedAdvair Diskus 500 mcg-50 mcg inhalation powder Inhalation, 2 times a day, Refills 0, Maintenance, 12/13/18 14:09:00 EDT Start Date: 12/13/18 Status: Orderedalbuterol CFC free 90 mcg/inh inhalation aerosol 1, puffs, Inhalation, 4 times a day, PRN, # 1 each, Refills 1, Tot. Refills 1, Maintenance, 02/13/2014:55:00 EST, Inhaler, Route to Pharmacy Electronically, [id number], [facility], 154.94, cm, 02/07/19 11:53:00 EST, He... Start Date: 02/13/19 Status: OrderedAlbuterol/Ipratropium 0 Refills, Maintenance Start Date: 07/31/19 Status: OrderedAllegra = 360 mg, By Mouth, [...] Daily, # 180 tablet, 3 Refills, Maintenance, 07/10/19 13:08:00 EDT, Tablet, [facility], 158.5, cm, 07/01/19 12:34:00 EDT, Height, 84, kg, 10/05/18 2:07:00 EDT, Dry Weight Start Date: 07/10/19 Stop Date: 07/04/20 Status: OrderedCHOPAT SPLINT CHOPAT SPLINT, See Instructions, # 1 each, Refills 0, Tot. Refills 0, Maintenance, RIGHT KNEE PATEALL TENDONITIS, 06/28/17 11:45:06 EDT, Compound Start Date: 06/28/17 Status: OrderedCod Liver Oil oral capsule 1 capsule, By Mouth, Daily, # 90 capsule, 0 Refills, Maintenance, 08/28/19 11:01:00 EDT, Capsule, [facility], 1 capsule By Mouth Daily, 158.5, cm, 08/27/19 12:39:00 EDT, Height, 84, kg, 10/05/18 2:07:00 EDT, Dry Weight Start Date: 08/28/19 Status: OrderedCONTROL SUBSTANCE CONTROL SUBSTANCE, Refills 0, Maintenance, 02/23/16 14:19:04, Compound Start Date: 02/23/16 Status: Ordereddiclofenac sodium 75 mg oral delayed release tablet 1 tablet = 75 mg, By Mouth, 2 times a day, with food, # 28 tablet, 0 Refills, Maintenance, 07/29/19 15:59:00 EDT, EC Tablet, [facility], 158.5, cm, 07/29/19 10:33:00 EDT, Height, 84, kg, :07:00 EDT, Dry Weight Start Date: 07/29/19 Stop Date: 08/12/19 Status: OrderedDicyclomine = 10 mg, QID PRN, 0 Refills, Maintenance, 07/31/19 11:13:00 EDT Start Date: 07/31/19 Status: OrderedDiflucan 150 mg oral tablet 1 tablet = 150 mg, By Mouth, Once, May repeat once in 72 hours if needed., # 1 tablet, 1 Refills, Soft Stop, 10/02/19 12:24:00 EDT, Tablet, [facility], 158.5, cm, 08/27/19 12:39:00 EDT, Height, 84, kg, 10/05/18 2:07:00 EDT, Dry Weight Start Date: 10/02/19 Status: Orderedepinephrine 0.3 mg injectable solution 0 Refills, Maintenance, 12/13/18 14:05:43 EDT Start Date: 12/13/18 Status: OrderedEstrace 1 mg oral tablet 1 mg, 1, tablet, By Mouth, Daily, # 90 tablet, Refills 0, Tot. Refills 0, Maintenance, 08/14/19 16:44:00 EDT, Route to Pharmacy Electronically, [facility], 158.5, cm, 07/29/19 10:33:00 EDT, Height, 84, kg, 10/05/18 2:07:00 EDT, Dry Weight Start Date: 08/14/19 Stop Date: 11/12/19 Status: OrderedFish Oil 1000 mg oral capsule 1 capsule = 1,000 mg, By Mouth, Daily, # 90 capsule, 3 Refills, Maintenance, 02/26/19 10:39:00 EST, Capsule, [facility], 154.94, cm, 02/26/19 10:16:00 EST, Height, 84, kg, 10/05/18 2:07:00 EDT, Dry Weight Start Date: 02/26/19 Status: OrderedFlomax 0.4 mg oral capsule 0.4 mg, 1, capsule, By Mouth, Daily, Refills 0, Maintenance, 07/31/19 11:04:00 EDT Start Date: 07/31/19 Status: OrderedFreestyle Lite Monitor See Instructions, # [...] times a day, # 90 capsule, Refills 2, Tot. Refills 2, Maintenance, 08/19/19 8:20:00 EDT, Route to Pharmacy Electronically, [facility], 158.5, cm, 08/04/19 16:24:00EDT, Height, 84, kg, 10/05/18 2:07:00 EDT, Dry We... Start Date: 08/19/19 Status: OrderedGas-X = 80 mg, 3 times a day after meals and bedtime, 0 Refills, Maintenance, 12/13/18 14:08:05 EDT Start Date: 12/13/18 Status: OrderedGuaifenesin Guaifenesin, Refills 0, Maintenance, 200mg QID x 7 days PRN cough, 07/31/19 11:16:00 EDT, Supply Start Date: 07/31/19 Status: OrderedHeating Pad See Instructions, # 1 [...] 10:41:00 EST, Route to Pharmacy Electronically, [facility], 154.94, cm, 02/26/19 10:16:00 EST, Hei... Start Date: 02/26/19 Status: OrderedImitrex 100 mg oral tablet 1 tablet = 100 mg, By Mouth, Daily, PRN for migraine headache, may repeat dose after 2 hours up to amaximum of 2, # 9 tablet, 1 Refills, Maintenance, 09/02/19 13:49:00 EDT, Tablet, [facility], 158.5, cm, 08/27/19 12:39:00 EDT, Height, 84, kg, 0... Start Date: 09/02/19 Status: Orderedlactase 9000 u oral tablet 1 [...] 04/27/17 10:23:06, Compound Start Date: 04/27/17 Status: OrderedLinzess By Mouth, Daily, 0 Refills, Maintenance, 07/31/19 11:06:00 EDT Start Date: 07/31/19 Status: Orderedlisinopril 10 mg oral tablet 10 mg, 1, tablet, By Mouth, Daily, # 30 tablet, Refills 5, Tot. Refills 5, Soft Stop, 04/27/19 11:24:00 EDT, Route to Pharmacy Electronically, [facility], 158.5, cm, 04/09/19 15:02:00 EST, Height, 84, kg, 10/05/18 2:07:00 EDT, Dry Weight Start Date: 04/27/19 Status: Orderedmeclizine 25 mg oral tablet 1 [...] Refills, Maintenance, 02/28/2010:35:00 EST, ER Tablet, [facility], 158.5, cm, 02/27/19 13:31:00 EST, Height, 84, kg, 10/05/18 2:07:00 EDT, Dry Weight Start Date: 02/28/19 Stop Date: 09/26/19 Status: Orderedmontelukast 10 mg oral tablet See Instructions, # 90 tablet, Refills 1 Tot. Refills 1, TAKE ONE (1) TABLET BY MOUTH ONCE DAILY IN THE EVENING., [facility] Start Date: 10/31/18 Status: OrderedOne Touch [...] 06/18/18 13:37:18 EDT, Route to Pharmacy Electronically, [id number], [facility] Start Date: 06/18/18 Status: OrderedOrthopedic shoes [...] Maintenance, 08/22/16 14:18:07, Route to Pharmacy Electronically, [id number], [facility] Start Date: 08/22/16 Stop Date: 08/17/17 [...] 07/23/18 13:46:52 EDT, Route to Pharmacy Electronically, [id number], [facility] Start Date: 07/23/18 Status: OrderedSpiriva Respimat [...] daily, # 50 tablet, 0 Refills, Maintenance, 07/30/19 11:47:00 EDT, Tablet, [facility], 158.5, cm, 07/29/19 10:33:00 EDT,Height, 84, kg, 10/05/18 2:07:00 EDT, Dry Weight Start Date: 07/30/19 Status: OrderedVitamin B Complex with Folic Acid oral tablet 1 tablet, By Mouth, Daily, # 30 tablet, 11 Refills, Maintenance, 08/23/17 17:31:01 EDT, Tablet, 1 tablet By Mouth Daily,x30 days Start Date: 08/23/17 Stop Date: 08/18/18 Status: OrderedVitamin B Complex with Folic Acid oral tablet 1 tablet, By Mouth, Daily, # 90 tablet, 3 Refills, Maintenance, 06/03/19 10:55:00 EDT, Tablet, [facility], 1 tablet By Mouth Daily, 158.5, cm, 04/09/19 15:02:00 EST, Height, 84, kg, 10/05/18 2:07:00 EDT, Dry Weight Start Date: 06/03/19 Status: OrderedVitamin C 500 mg oral tablet 1 tablet = 500 mg, By Mouth, Daily, # 90 tablet, 0 Refills, Maintenance, 06/20/19 8:43:00 EDT, Tablet, [facility], 158.5, cm, 06/18/19 13:31:00 EDT, Height, 84, kg, 10/05/18 2:07:00 EDT, Dry Weight Start Date: 06/20/19 Stop Date: 09/18/19 Status: OrderedWALKER WITH WHEELS AND SEAT WALKER [...] COPD - Chronic obstructive pulmonary Active disease(Confirmed) Diabetes mellitus(Confirmed) Active Current use of estrogen Active therapy(Confirmed) GERD - Gastro-esophageal reflux Active disease(Confirmed)4 H/O: prolonged corticosteroid Active therapy(Confirmed) Hearing loss(Confirmed)5 Active S/P total hysterectomy and bilateral Active salpingo-oophorectomy(Confirmed) Hypertension(Confirmed) Active Kidney stones(Confirmed) Active Knee pain, right- 08/29/13 Xray showed Active loss of medial meniscus(Confirmed) Hx of long-term (current) use of Active postmenopausal hormone replacement therapy(Confirmed) UTI (lower urinary tract Active infection)(Confirmed) Menopausal state(Confirmed) Active Migraine(Confirmed) Active OA - Osteoarthritis(Confirmed) Active Obesity(Confirmed) Active Pelvic pain in female(Confirmed) Active Pernicious anemia(Confirmed) Active PTSD (post-traumatic stress Active disorder)(Confirmed) Seasonal allergies(Confirmed) Active Shoulder pain, left(Confirmed) Active Shoulder pain, right(Confirmed) Active MRSA colonization(Confirmed) Active 1RAST 36 ALLERGENS, ALL 0, EXC 3+ ROACHES. IGE 83, WNL, 01/02/13.2skin test pos: mold, trees, [id number] Renae [id number] pantozapole,5[facility] audiology Social History Social History Type Response Smoking Status Former smoker; Tobacco user in household: No; Type: Cigarettes; Tobacco use times per day: UP TO 3 PPD; Stopped at age: 52; entered on: 04/14/14 Sex
--- OUTSIDE RECORDS SUMMARY | 2022-03-26 02:43 | XMS_ITS | Continuity of Care Document ---
:1960 Author Organization [facility] nter Address [address] [place] [address]- Care Team Providers Name Role Phone Prashant Arabella ALVARADO Primary Care Physician Encounter [facility] Date(s): 11/02/20 - 11/03/[address] [address]- Encounter Diagnosis Renal colic, bilateral (Final) - 11/03/20 Discharge Disposition: A-D/C Home Attending Physician: Torrey Moran DO Admitting Physician: Torrey Moran DO Referring Physician: Not on Staff, Referring MD Allergies, Adverse Reactions, Alerts Substance Reaction Severity Status propranolol Active doxycycline hives Active nabumetone Active thiazide diuretics hives Active Contrast Dye1 hives Active SEROquel XR unknown Active amoxicillin abdominal pain Active sulfamethoxazole-trimethoprim hives Ac tive aspirin dyspepsia Active Bactrim hives Active morphine Morphine allergy Active Augmentin stomach pain Active 1? Rash Immunizations Given and Recorded Vaccine Date Status Refusal Reason influenza virus vaccine, inactivated1 11/19/19 Given influenza virus vaccine, inactivated2 12/05/17 Given influenza virus vaccine, inactivated3 11/23/16 Given influenza virus vaccine, inactivated 12/23/15 Given influenza virus vaccine, inactivated4 12/11/13 Given influenza virus vaccine, inactivated 11/30/12 Given pneumococcal 13-valent vaccine5 11/23/16 Given pneumococcal 23-valent vaccine6 04/09/14 Given pneumococcal 23-valent vaccine7 04/09/14 Given pneumococcal 23-valent vaccine 11/30/12 Given tetanus/diphtheria/pertussis, acel(Tdap) 04/25/13 Given Not Given Vaccine Date Status Refusal Reason pneumococcal 23-valent vaccine 10/21/12 Not Given P atient Refuses 1Result Comment: [facility]:[phone] Comment: [12/05/2017] [facility]#[phone] Result Comment: [11/23/2016] [facility] # [id number] Comment: [12/11/2013] vis [id number] Comment: [11/23/2016] [facility] # [phone] Comment: [04/09/2014] pt stated that she was [...] Replace Required Details Start Date: 01/15/17 Status: OrderedAdvair Diskus 500 mcg-50 mcg inhalation powder Inhalation, 2 times a day, Refills 0, Maintenance, 12/13/18 14:09:00 EDT Start Date: 12/13/18 Status: Orderedalbuterol CFC free 90 mcg/inh inhalation aerosol 1, puffs, Inhalation, 4 times a day, PRN, # 1 each, Refills 1, Tot. Refills 1, Maintenance, 02/13/2014:55:00 EST, Inhaler, Route to Pharmacy Electronically, [id number], [facility], 154.94, cm, 02/07/19 11:53:00 [...] 10:17:47 EST, Compound Start Date: 01/10/18 Status: OrderedCentury Women's Daily Multivitamin Century Women's Daily Multivitamin, 1, tablet, By Mouth, Daily, # 100 tablet, Refills 0, Tot. Refills 0, Maintenance, 01/12/20 10:16:00 EST, May fill for less or equal to OTC bottle Qty, Supply, 158.5,cm, 01/07/20 15:56:00 EST, Height, 84, kg, ... Start Date: 01/12/20 Status: Orderedcholecalciferol 1000 intl units oral tablet 2 tablet = 2,000 International_Units, By Mouth, Daily, # 180 tablet, 3 Refills, Maintenance, 07/10/19 13:08:00 EDT, Tablet, [facility], 158.5, cm, 07/01/19 12:34:00 EDT, Height, [...] Daily, # 90 capsule, 0 Refills, Maintenance, 06/17/20 9:47:00 EDT, Capsule, [facility], 1 capsule By Mouth Daily, 156, cm, 01/22/20 18:13:00 EST, Height, 85, kg, 01/22/20 18:13:00 EST, Dry Weight Start Date: 06/17/20 Status: OrderedCONTROL SUBSTANCE CONTROL SUBSTANCE, Refills 0, Maintenance, 02/23/16 14:19:04, Compound Start Date: 02/23/16 Status: OrderedDicyclomine = 10 mg, QID PRN, 0 Refills, Maintenance, 07/31/19 11:13:00 EDT Start Date: 07/31/19 Status: OrderedDiflucan 150 mg oral tablet 1 tablet = 150 mg, By Mouth, Once, May repeat once in 72 hours if needed., # 1 tablet, 1 Refills, Soft Stop, 10/02/19 12:24:00 EDT, Tablet, [facility], 158.5, cm, 08/27/19 12:39:00 EDT, Height, 84, kg, 10/05/18 2:07:00 EDT, Dry Weight Start Date: 10/02/19 Status: Orderedepinephrine 0.3 mg injectable solution 0 Refills, Maintenance, 12/13/18 14:05:43 EDT Start Date: 12/13/18 Status: Orderedestradiol 1 mg oral tablet 1, tablet, By Mouth, Daily, # 90 tablet, Refills 0, Tot. Refills 0, Maintenance, 06/21/20 12:46:00 EDT, Route to Pharmacy Electronically, [facility], 155, cm, 06/18/20 0:35:00 EDT, Height, 80, kg, 06/18/20 0:35:00 EDT, Dry Weight Start Date: 06/21/20 Status: OrderedFish Oil 1000 mg oral capsule 1 capsule = 1,000 mg, By Mouth, Daily, # 90 capsule, 3 Refills, Maintenance, 02/26/19 10:39:00 EST, Capsule, [facility], 154.94, cm, 02/26/19 10:16:00 EST, [...] e11.9, Compound Start Date: 08/14/17 Status: Orderedgabapentin 600 mg oral tablet 1 tablet = 600 mg, By Mouth, 3 times a day, # 270 tablet, 0 Refills, Maintenance, 01/21/20 8:28:00 EST, Tablet, [facility], Partial fill upon patient request if the prescription is for a scheduleII opioid drug., 158.5, cm, 01/07/20 15:56:00 EST... Start Date: 01/21/20 Status: OrderedGas-X = 80 mg, 3 times [...] 14:06:45 EDT, Tablet Start Date: 12/13/18 Status: OrderedImitrex 100 mg oral tablet 1 tablet = 100 mg, By Mouth, Daily, PRN for migraine headache, may repeat dose after 2 hours up to amaximum of 2, # 9 tablet, 1 Refills, Maintenance, 01/12/20 9:22:00 EST, Tablet, [facility], 158.5, cm, 01/07/20 15:56:00 EST, Height, 84, kg, 08... Start Date: 01/12/20 Status: OrderedImitrex 100 mg oral tablet 1 tablet = 100 mg, By Mouth, Daily, PRN for migraine headache, may repeat dose after 2 hours up to amaximum of 2, # 9 tablet, 1 Refills, Maintenance, 10/14/19 15:06:00 EDT, Tablet, [facility], 158.5, cm, 08/27/19 12:39:00 EDT, Height, 84, kg, 0... Start Date: 10/14/19 Status: Orderedketorolac 30 mg/mL injectable solution = 60 mg, Intramuscular, Once, in urgent care, # 2 mL, 0 Refills, Soft Stop, 11/03/19 15:04:00 EDT Start Date: 11/03/19 Status: Orderedlactase 9000 u oral tablet 1 [...] Refills 5, Tot. Refills 5, Soft Stop, 11/06/19 10:32:00 EDT, Route to Pharmacy Electronically, [facility], 158.5, cm, 11/04/19 8:30:00 EDT, Height,84, kg, 10/05/18 2:07:00 EDT, Dry Weight Start Date: 11/06/19 Status: Orderedmeclizine 25 mg oral tablet 1 [...] EDT, Tablet Start Date: 12/13/18 Status: OrderedmetFORMIN 500 mg oral tablet, extended release 1 tablet = 500 mg, By Mouth, Daily, with evening meal, # 30 tablet, 5 Refills, Maintenance, 04/09/2111:50:00 EST, ER Tablet, [facility], 156, cm, 01/22/20 18:13:00 EST, Height, 85, kg, 01/22/20 18:13:00 EST, Dry Weight Start Date: 04/09/20 Status: Orderedmontelukast 10 mg oral tablet See Instructions, # 90 tablet, Refills 1 Tot. Refills 1, TAKE ONE (1) TABLET BY MOUTH ONCE DAILY IN THE EVENING., [facility] Start Date: 10/31/18 Status: Orderedmultivitamin Vitamin B Complex oral capsule 1 capsule, By Mouth, Daily, # 90 capsule, 0 Refills, Maintenance, 06/17/20 9:47:00 EDT, Capsule, [facility], Partial fill upon patient request if the prescription is for a schedule II opioid drug., 1 capsule By Mouth Daily, 156, cm, 01/22/20 18:... Start Date: 06/17/20 Status: OrderedOne Touch Ultra 2 Glucose Meter [...] 06/18/18 13:37:18 EDT, Route to Pharmacy Electronically, [id number], [facility] Start Date: 06/18/18 Status: OrderedOrthopedic [...] Maintenance, 08/22/16 14:18:07, Route to Pharmacy Electronically, [id number], [facility] Start Date: 08/22/16 Stop Date: 08/17/17 Status: OrderedQvar Redihaler 80 mcg/inh inhalation aerosol Inhalation, 2 times a day, 0 Refills, Maintenance, 12/13/18 14:07:57 EDT Start Date: 12/13/18 Status: OrderedRisperidone = 3 mg, By Mouth, 2 times a day, 0 Refills, Maintenance, 05/08/18 14:51:59 EDT Start Date: 05/08/18 Status: OrderedSpiriva Respimat 1.25 mcg/inh inhalation aerosol [...] oral tablet 1-2 tablets, By Mouth, Every 6 hours, PRN for pain, no more than 6 tablets daily, # 100 tablet, 1 Refills, Maintenance, 12/30/19 11:05:00 EST, Tablet, [facility], 158.5, cm, 12/10/19 14:54:00 EDT, Height, 84, kg, 10/05/18 2:07:00 EDT, Dry Weight Start Date: 12/30/19 Status: OrderedVitamin B Complex with Folic Acid oral tablet 1 tablet, By Mouth, Daily, # 90 tablet, 3 Refills, Maintenance, 06/03/19 10:55:00 EDT, Tablet, [facility], 1 tablet By Mouth Daily, 158.5, cm, 04/09/19 15:02:00 EST, Height, 84, kg, 10/05/18 2:07:00 EDT, Dry Weight Start Date: 06/03/19 Status: OrderedVitamin C 500 mg oral tablet 1 tablet = 500 mg, By Mouth, Daily, # 90 tablet, 0 Refills, Maintenance, 01/12/20 14:32:00 EST, Tablet, [facility], 158.5, cm, 01/07/20 15:56:00 EST, Height, 84, kg, 10/05/18 2:07:00 EDT, Dry Weight Start Date: 01/12/20 Stop Date: 04/11/20 Status: OrderedVoltaren 1% topical gel 1 application, Topically, 4 times a day, PRN for pain, # 100 Gm, 0 Refills, Maintenance, 01/07/20 16:13:00 EST, Gel, [facility], Partial fill upon patient request, 1 application Topically 4 timesa day,PRN:for pain, 158.5, cm, 01/07/20 15:56:00... Start Date: 01/07/20 Status: OrderedWALKER WITH WHEELS AND SEAT WALKER [...] Shoulder pain, right(Confirmed) Active MRSA colonization(Confirmed) Active Vertigo(Confirmed) Active 1RAST 36 ALLERGENS, ALL 0, EXC 3+ ROACHES. IGE 83, WNL, 01/02/13.2skin test pos: mold, trees, [id number] Renae [id number] pantozapole,[facility] Vital Signs Most recent to oldest [Reference Range]: 1 Height 155 cm (11/03/20 1:00 AM) Weight 84.5 kg (11/03/20 1:00 AM) Oxygen Saturation [94-100 %] 99 % (11/03/20 1:00 AM) Pulse Rate [55-90 bpm] 77 bpm (11/03/20 1:00 AM) Blood Pressure [90-138/55-84 mm Hg] 146/4 mm Hg *H* (11/03/20 1:00 AM) Respiratory Rate [16-30 br/min] 16 br/min (11/03/20 1:00 AM) Temperature [96.8-100.4 DegF] 97.7 DegF (11/03/20 1:00 AM) Mode of Delivery (Oxygen) Room air (11/03/20 1:00 AM) Temperature Route Oral (11/03/20 1:00 AM) Dry Weight 84.5 kg (11/03/20 1:00 AM) Weight Obtained Via Patient/family stated (11/03/20 1:00 AM) Dry Weight Obtained Via Patient/family stated (11/03/20 1:00 AM) Social History Social History Type Response Smoking Status Former smoker; Tobacco user in household: No; Type: Cigarettes; Tobacco use times per day: UP TO 3 PPD; Stopped at age: 52; entered on: 04/14/14 Sex
--- OUTSIDE RECORDS SUMMARY | 2022-03-26 02:43 | XMS_ITS | Continuity of Care Document ---
:1960 Author Organization [facility] nter Address [address] [place] [address]- Care Team Providers Name Role Phone Prashant Arabella ALVARADO Primary Care Physician Encounter [facility] Date(s): 06/21/21 - 06/22/[address] [address]- Encounter Diagnosis Anxiety (Final) - 06/22/21 Discharge Disposition: A-D/C Home Attending Physician: Nick Ponce DO Admitting Physician: Nick Ponce DO Referring Physician: Not on Staff, Referring MD Allergies, Adverse Reactions, Alerts Substance Reaction Severity Status propranolol Active doxycycline hives Active amoxicillin abdominal pain Active sulfamethoxazole-trimethoprim hives Ac tive aspirin dyspepsia Active morphine Morphine allergy Active nabumetone Active thiazide diuretics hives Active Augmentin stomach pain Active Bactrim hives Active Contrast Dye1 hives Active Fish Active SEROquel XR unknown Active 1? Rash [...] Given P atient Refuses 1Result Comment: [facility]:[id number] Comment: [12/05/2017] [facility]#[id number] Result Comment: [11/23/2016] [facility] # [phone] Comment: [12/11/2013] vis [id number] Comment: [11/23/2016] [facility] # [id number] Comment: [04/09/2014] pt stated that she was [...] 02/13/2014:55:00 EST, Inhaler, Route to Pharmacy Electronically, [id number], [facility], 154.94, cm, 02/07/19 11:53:00 EST, He... [...] 3 Refills, Maintenance, 07/10/19 13:08:00 EDT, Tablet, [facility], 158.5, cm, 07/01/19 12:34:00 EDT, Height, [...] 0 Refills, Maintenance, 06/17/20 9:47:00 EDT, Capsule, [facility], 1 capsule By Mouth Daily, 156, [...] Refills, Soft Stop, 10/02/19 12:24:00 EDT, Tablet, [facility], 158.5, cm, 08/27/19 12:39:00 EDT, Height, 84, kg, 10/05/18 2:07:00 EDT, Dry Weight Start Date: 10/02/19 Status: Orderedepinephrine 0.3 mg injectable solution 0 Refills, Maintenance, 12/13/18 14:05:43 EDT Start Date: 12/13/18 Status: Orderedestradiol 1 mg oral tablet 1, tablet, By Mouth, Daily, # 90 tablet, Refills 0, Tot. Refills 0, Maintenance, 06/21/20 12:46:00 EDT, Route to Pharmacy Electronically, [facility], 155, cm, 06/18/20 0:35:00 EDT, Height, 80, kg, 06/18/20 0:35:00 EDT, Dry Weight Start Date: 06/21/20 Status: OrderedFish Oil 1000 mg oral capsule 1 capsule = 1,000 mg, By Mouth, Daily, # 90 capsule, 3 Refills, Maintenance, 02/26/19 10:39:00 EST, Capsule, [facility], 154.94, cm, 02/26/19 10:16:00 EST, [...] e11.9, Compound Start Date: 08/14/17 Status: Orderedgabapentin 400 mg oral capsule 800 mg, Capsule, By Mouth, Once, Routine, 06/21/21 23:00:00 EDT, Stop date 06/21/21 23:00:00 EDT Start Date: 06/21/21 Stop Date: 06/21/21 Status: Completedgabapentin 600 mg oral tablet 1 tablet = 600 mg, By Mouth, 3 times a day, # 270 tablet, 0 Refills, Maintenance, 01/21/20 8:28:00 EST, Tablet, [facility], Partial fill upon patient request [...] 1 Refills, Maintenance, 01/12/20 9:22:00 EST, Tablet, [facility], 158.5, cm, 01/07/20 15:56:00 EST, Height, 84, kg, 08... Start Date: 01/12/20 Status: OrderedImitrex 100 mg oral tablet 1 tablet = 100 mg, By Mouth, Daily, PRN for migraine headache, may repeat dose after 2 hours up to amaximum of 2, # 9 tablet, 1 Refills, Maintenance, 10/14/19 15:06:00 EDT, Tablet, [facility], 158.5, cm, 08/27/19 12:39:00 EDT, [...] 11/06/19 10:32:00 EDT, Route to Pharmacy Electronically, [facility], 158.5, cm, 11/04/19 8:30:00 EDT, [...] 5 Refills, Maintenance, 04/09/2111:50:00 EST, ER Tablet, [facility], 156, cm, 01/22/20 18:13:00 EST, Height, 85, kg, 01/22/20 18:13:00 EST, Dry Weight Start Date: 04/09/20 Status: Orderedmontelukast 10 mg oral tablet See Instructions, # 90 tablet, Refills 1 Tot. Refills 1, TAKE ONE (1) TABLET BY MOUTH ONCE DAILY IN THE EVENING., [facility] Start Date: 10/31/18 Status: Orderedmultivitamin Vitamin B Complex oral capsule 1 capsule, By Mouth, Daily, # 90 capsule, 0 Refills, Maintenance, 06/17/20 9:47:00 EDT, Capsule, [facility], Partial fill upon patient request [...] 06/18/18 13:37:18 EDT, Route to Pharmacy Electronically, [id number], [facility] Start Date: 06/18/18 Status: OrderedOrthopedic shoes [...] Maintenance, 08/22/16 14:18:07, Route to Pharmacy Electronically, [id number], [facility] Start Date: 08/22/16 Stop Date: 08/17/17 Status: Orderedprazosin 1 mg oral capsule 4 mg, Capsule, By Mouth, 06/21/21 22:12:00 EDT Start Date: 06/21/21 Stop Date: 06/21/21 Status: CompletedQvar Redihaler 80 mcg/inh inhalation aerosol Inhalation, 2 [...] 1 Refills, Maintenance, 12/30/19 11:05:00 EST, Tablet, [facility], 158.5, cm, 12/10/19 14:54:00 EDT, Height, 84, kg, 10/05/18 2:07:00 EDT, Dry Weight Start Date: 12/30/19 Status: OrderedVitamin B Complex with Folic Acid oral tablet 1 tablet, By Mouth, Daily, # 90 tablet, 3 Refills, Maintenance, 06/03/19 10:55:00 EDT, Tablet, [facility], 1 tablet By Mouth Daily, 158.5, cm, 04/09/19 15:02:00 EST, Height, 84, kg, 10/05/18 2:07:00 EDT, Dry Weight Start Date: 06/03/19 Status: OrderedVitamin C 500 mg oral tablet 1 tablet = 500 mg, By Mouth, Daily, # 90 tablet, 0 Refills, Maintenance, 01/12/20 14:32:00 EST, Tablet, [facility], 158.5, cm, 01/07/20 15:56:00 EST, Height, 84, kg, 10/05/18 2:07:00 EDT, Dry Weight Start Date: 01/12/20 Stop Date: 04/11/20 Status: OrderedVoltaren 1% topical gel 1 application, Topically, 4 times a day, PRN for pain, # 100 Gm, 0 Refills, Maintenance, 01/07/20 16:13:00 EST, Gel, [facility], Partial fill upon patient request, 1 [...] Active Migraine(Confirmed) Active OA - Osteoarthritis(Confirmed) Active Obese class I(Confirmed) Active Obesity(Confirmed) Active Pelvic pain in female(Confirmed) Active Pernicious anemia(Confirmed) Active PTSD (post-traumatic stress Active disorder)(Confirmed) Seasonal allergies(Confirmed) Active Shoulder pain, left(Confirmed) Active Shoulder pain, right(Confirmed) Active MRSA colonization(Confirmed) Active Vertigo(Confirmed) Active 1RAST 36 ALLERGENS, ALL 0, EXC 3+ ROACHES. IGE 83, WNL, 01/02/13.2skin test pos: mold, trees, [id number] Renae Eoxiywuvtj6zxaenuf pantozapole,5[facility] Vital Signs Most recent to oldest 1 2 3 [Reference Range]: Height 155 cm 155 cm 155 cm (06/22/21:23 AM) (06/21/21 9:08 PM) (06/21/21 9:0 6 PM) Weight 81 kg 81 kg 81 kg (06/22/21:23 AM) (06/21/21 9:08 PM) (06/21/21 9:0 6 PM) Oxygen Saturation [94-100 98 % 97 % 98 % %] (06/22/21 9:01 AM) (06/22/21:23 AM) (06/21/21 8:5 9 PM) Pulse Rate [55-90 bpm] 68 bpm 66 bpm 72 bpm (06/22/21 9:01 AM) (06/22/21:23 AM) (06/21/21 8:5 9 PM) Body Mass Index 33.71 33.71 33.71 [18.5-24.99] *>HHI* *>HHI* *>HHI* (06/22/21:23 AM) (06/21/21 9:06 PM) (06/21/21 8:5 9 PM) Blood Pressure 129/55 mm Hg 117/44 mm Hg 133/63 mm Hg [90-138/55-84 mm Hg] (06/22/21 9:01 AM) (06/22/21:23 AM) ( 2 10:08 PM) Respiratory Rate [16-30 18 br/min 16 br/min 16 br/mi n br/min] (06/22/21 9:01 AM) (06/22/21:23 AM) (06/21/21 10: 16 PM) Temperature [96.8-100.4 97.9 DegF 98.2 DegF 97.8 Deg F DegF] (06/22/21 9:01 AM) (06/22/21 1:23 AM) (06/21/21 8:5 9 PM) Mode of Delivery (Oxygen) Room air room air Room a ir (06/22/21 9:01 AM) (06/22/21 1:23 AM) (06/21/21 8:5 9 PM) Blood pressure sites Arm, left Arm, left (06/22/21 9:01 AM) (06/21/21 8:59 PM) Temperature Route Oral Oral Oral (06/22/21 9:01 AM) (06/22/21 1:23 AM) (06/21/21 8:5 9 PM) Dry Weight 81 kg 81 kg 81 kg (06/22/21 1:23 AM) (06/21/21 9:08 PM) (06/21/21 9:0 6 PM) Weight Obtained Via Patient/family stated (06/21/21 8:59 PM) Dry Weight Obtained Via Patient/family stated (06/21/21 8:59 PM) Social History Social History Type Response Smoking Status Former smoker; Tobacco user in household: No; Type: Cigarettes; Tobacco use times per day: UP TO 3 PPD; Stopped at age: 52; entered on: 04/14/14 Sex
--- OUTSIDE RECORDS SUMMARY | 2022-03-26 02:43 | XMS_ITS | Continuity of Care Document ---
:1960 Author Organization [facility] Address [address] [place] [address]- Care Team Providers Name Role Phone Amilcar Hadley MD Primary Care Physician Encounter [facility] Date(s): 11/03/19 - 11/10/19 [facility] [address] [place] [address]- [facility] Encounter Diagnosis Back pain with left-sided sciatica (Discharge Diagnosis) - 11/03/19 Attending Physician: Swati Morris NP Referring Physician: Amilcar Hadley MD Allergies, Adverse Reactions, Alerts Substance Reaction Severity Status propranolol Active doxycycline hives Active amoxicillin abdominal pain Active morphine Morphine allergy Active nabumetone Active thiazide diuretics hives Active Contrast Dye1 hives Active SEROquel XR unknown Active sulfamethoxazole-trimethoprim hives Ac tive aspirin dyspepsia Active Bactrim hives Active 1? Rash Immunizations Given and Recorded [...] Given P atient Refuses 1Result Comment: [12/05/2017] [facility]#[id number] Comment: [11/23/2016] [facility] # [id number] Comment: [12/11/2013] vis [id number] Comment: [11/23/2016] [facility] # [id number] Comment: [04/09/2014] pt stated that she was [...] 02/13/2014:55:00 EST, Inhaler, Route to Pharmacy Electronically, [id number], [facility], 154.94, cm, 02/07/19 11:53:00 EST, He... [...] 13:08:00 EDT, Tablet, [facility], 158.5, cm, 07/01/19 12:34:00 EDT, Height, [...] 0 Refills, Maintenance, 08/28/19 11:01:00 EDT, Capsule, [facility], 1 capsule By Mouth Daily, 158.5, [...] 12:24:00 EDT, Tablet, [facility], 158.5, cm, 08/27/19 12:39:00 EDT, Height, 84, kg, 10/05/18 2:07:00 EDT, Dry Weight Start Date: 10/02/19 Status: Orderedepinephrine 0.3 mg injectable solution 0 Refills, Maintenance, 12/13/18 14:05:43 EDT Start Date: 12/13/18 Status: OrderedEstrace 1 mg oral tablet 1 mg, 1, tablet, By Mouth, Daily, # 90 tablet, Refills 1, Tot. Refills 1, Maintenance, 11/12/19 16:44:00 EDT, Route to Pharmacy Electronically, [facility], 158.5, cm, 08/27/19 12:39:00 EDT, Height, 84, kg, 10/05/18 2:07:00 EDT, Dry Weight Start Date: 11/12/19 Stop Date: 05/10/20 Status: OrderedEstrace 1 mg oral tablet 1 mg, 1, tablet, By Mouth, Daily, for 90 days, # 90 tablet, Refills 0, Tot. Refills 0, Hard Stop 11/12/19 16:44:00 EDT, 08/14/19 16:44:00 EDT, Route to Pharmacy Electronically, [facility], 158.5,cm, 07/29/19 10:33:00 EDT, Height, 84, kg, ... Start Date: 08/14/19 Stop Date: 11/12/19 Status: OrderedFish Oil 1000 mg oral capsule 1 capsule = 1,000 mg, By Mouth, Daily, # 90 capsule, 3 Refills, Maintenance, 02/26/19 10:39:00 EST, Capsule, [facility], 154.94, cm, 02/26/19 10:16:00 EST, Height, [...] to Pharmacy Electronically, [facility], 158.5, cm, 08/04/19 16:24:00EDT, Height, 84, [...] hours, PRN, with food or milk, # 42 tablet, Refills 0, Tot. Refills 0, Maintenance, Pain , Moderate, 11/06/19 12:00:00 EDT, Route to Pharmacy Electronically, [facility], 158.5, cm, 11/06/19 10:48:00 EDT, Heig... Start Date: 11/06/19 Stop Date: 11/20/19 Status: OrderedImitrex 100 mg oral tablet 1 tablet = 100 mg, By Mouth, Daily, PRN for migraine headache, may repeat dose after 2 hours up to amaximum of 2, # 9 tablet, 1 Refills, Maintenance, 10/14/19 15:06:00 EDT, Tablet, [facility], 158.5, cm, 08/27/19 12:39:00 EDT, Height, [...] 11/06/19 10:32:00 EDT, Route to Pharmacy Electronically, [facility], 158.5, cm, 11/04/19 8:30:00 EDT, Height,84, [...] meal, # 30 tablet, 5 Refills, Maintenance, 10/17/2011:57:00 EDT, ER Tablet, [facility], 158.5, cm, 08/27/19 12:39:00 EDT, Height, 84, kg, 10/05/18 2:07:00 EDT, Dry Weight Start Date: 10/17/19 Status: Orderedmontelukast 10 mg oral tablet See Instructions, # 90 tablet, Refills 1 Tot. Refills 1, TAKE ONE (1) TABLET BY MOUTH ONCE DAILY IN THE EVENING., [facility] Start Date: 10/31/18 Status: OrderedOne Touch [...] 06/18/18 13:37:18 EDT, Route to Pharmacy Electronically, [id number], [facility] Start Date: 06/18/18 Status: OrderedOrthopedic shoes [...] Maintenance, 08/22/16 14:18:07, Route to Pharmacy Electronically, [id number], [facility] Start Date: 08/22/16 Stop Date: [...] than 6 tablets daily, # 50 tablet, 1 Refills, Maintenance, 11/06/19 11:59:00 EDT, Tablet, [facility], 158.5, cm, 11/06/19 10:48:00 EDT,Height, 84, kg, 10/05/18 2:07:00 EDT, Dry Weight Start Date: 11/06/19 Status: OrderedVitamin B Complex with Folic Acid oral tablet 1 tablet, By Mouth, Daily, # 90 tablet, 3 Refills, Maintenance, 06/03/19 10:55:00 EDT, Tablet, [facility], 1 tablet By Mouth Daily, 158.5, cm, 04/09/19 15:02:00 EST, Height, 84, kg, 10/05/18 2:07:00 EDT, Dry Weight Start Date: 06/03/19 Status: OrderedVitamin C 500 mg oral tablet 1 tablet = 500 mg, By Mouth, Daily, # 90 tablet, 0 Refills, Maintenance, 10/14/19 14:32:00 EDT, Tablet, [facility], 158.5, cm, 08/27/19 12:39:00 EDT, Height, 84, kg, 10/05/18 2:07:00 EDT, Dry Weight Start Date: 10/14/19 Stop Date: 01/12/20 Status: OrderedWALKER WITH WHEELS AND SEAT WALKER [...] 81, WNL, 01/02/13.2skin test pos: mold, trees, [id number] [facility] Nlnqhpfrtf3ojbnhfr pantozapole,[address] [place] [address] audiology Diagnosis Diagnosis Type Effective Dates Health Status Clinical In formant Service Back pain with Discharge 11/03/19 left-sided Diagnosis sciatica Vital Signs Most recent to oldest [Reference Range]: 1 Height 158.5 cm (11/03/19 2:22 PM) Oxygen Saturation [94-100 %] 100 % (11/03/19 2:22 PM) Pulse Rate [55-90 bpm] 78 bpm (11/03/19 2:22 PM) Blood Pressure [90-138/55-84 mm Hg] 143/48 mm Hg *H* (11/03/19 2:22 PM) Respiratory Rate [16-30 br/min] 25 br/min (11/03/19 2:22 PM) Temperature [96.8-100.4 DegF] 97.2 DegF (11/03/19 2:22 PM) Mode of Delivery (Oxygen) Room air (11/03/19 2:22 PM) Blood pressure sites Arm, left (11/03/19 2:22 PM) Temperature Route Temporal (11/03/19 2:22 PM) Social History Social History Type Response Smoking Status Former smoker; Tobacco user in household: No; Type: Cigarettes; Tobacco use times per day: UP TO 3 PPD; Stopped at age: 52; entered on: 04/14/14 Sex
--- OUTSIDE RECORDS SUMMARY | 2022-03-26 02:43 | XMS_ITS | Continuity of Care Document ---
:1960 Author Organization [facility] Address [address] [place] [address]- Care Team Providers Name Role Phone Amilcar Hadley MD Primary Care Physician Encounter [facility] Date(s): 04/09/19 - 04/19/19 [facility] [address] [place] [address]- [facility] Attending Physician: Admbud, Tiffany Admitting Physician: AdmtrTiffany Referring Physician: Admtr, Ar8 Allergies, Adverse Reactions, Alerts Substance Reaction Severity [...] Given P atient Refuses 1Result Comment: [12/05/2017] [facility]#[id number] Comment: [11/23/2016] [facility] # [phone] Comment: [12/11/2013] vis [id number] Comment: [11/23/2016] [facility] # [id number] Comment: [04/09/2014] pt stated that she was [...] 02/13/2014:55:00 EST, Inhaler, Route to Pharmacy Electronically, [id number], [facility], 154.94, cm, 02/07/19 11:53:00 EST, [...] 0 Refills, Maintenance, 02/26/19 10:39:00 EST, Capsule, [facility], 1 capsule By Mouth Daily, 154.94, [...] 0 Refills, Maintenance, 02/27/19 13:56:00 EST, Patch, [facility], 158.5, cm, 02/27/19 13:31:00 EST, Height, 84, kg, 10/05/18 2:07:00 EDT, Dry Weight Start Date: 02/27/19 Stop Date: 05/28/19 Status: OrderedFish Oil 1000 mg oral capsule 1 capsule = 1,000 mg, By Mouth, Daily, # 90 capsule, 3 Refills, Maintenance, 02/26/19 10:39:00 EST, Capsule, [facility], 154.94, cm, 02/26/19 10:16:00 EST, Height, [...] capsule, Refills 2, Tot. Refills 2, Maintenance, 03/27/19 16:29:00 EST, Route to Pharmacy Electronically, [facility], 158.5, cm, 03/18/19 11:38:00 EST, Height, 84, kg, 10/05/18 2:07:00 EDT, Dry W... Start Date: 03/27/19 Status: OrderedGas-X = 80 mg, 3 times [...] 02/26/19 10:41:00 EST, Route to Pharmacy Electronically, [facility], 154.94, cm, 02/26/19 10:16:00 EST, [...] 02/03/19 16:58:00 EST, Route to Pharmacy Electronically, [facility], 154.94, cm, 12/13/18 13:54:00 EDT, Height, [...] 6 Refills, Maintenance, 02/28/2010:35:00 EST, ER Tablet, [facility], 158.5, cm, 02/27/19 13:31:00 EST, [...] 06/18/18 13:37:18 EDT, Route to Pharmacy Electronically, [id number], [facility] Start Date: 06/18/18 Status: OrderedOrthopedic shoes [...] Maintenance, 08/22/16 14:18:07, Route to Pharmacy Electronically, [id number], [facility] Start Date: 08/22/16 Stop Date: 08/17/17 [...] 07/23/18 13:46:52 EDT, Route to Pharmacy Electronically, [id number], [facility] Start Date: 07/23/18 Status: OrderedSpiriva Respimat [...] 0 Refills, Maintenance, 02/26/19 10:41:00 EST, Tablet, [facility], 154.94, cm, 02/26/19 10:16:00 EST, Height, 84, kg, 10/05/18 2:07:00 EDT, Dry Weight Start Date: 02/26/19 Status: OrderedVitamin B Complex with Folic Acid oral tablet 1 tablet, By Mouth, Daily, # 90 tablet, 3 Refills, Maintenance, 02/26/19 10:39:00 EST, Tablet, [facility], 1 tablet By Mouth Daily, 154.94, [...] Daily, # 90 tablet, 0 Refills, Maintenance, 03/10/19 8:42:00 EST, Tablet, [facility], 158.5, cm, 02/27/19 13:31:00 EST, Height, 84, kg, 10/05/18 2:07:00 EDT, Dry Weight Start Date: 03/10/19 Stop Date: 06/08/19 Status: OrderedWALKER WITH WHEELS AND SEAT WALKER [...] obstructive pulmonary Active disease(Confirmed) Diabetes mellitus(Confirmed) Active GERD - Gastro-esophageal reflux Active disease(Confirmed)4 H/O: [...] 81, WNL, 01/02/13.2skin test pos: mold, trees, [id number] Renae Pdhjgflaua5qkqfofp pantozapole,5[facility] audiology Social History Social History Type Response Smoking Status Former smoker; Tobacco user in household: No; Type: Cigarettes; Tobacco use times per day: UP TO 3 PPD; Stopped at age: 52; entered on: 04/14/14 Sex
--- OUTSIDE RECORDS SUMMARY | 2022-03-26 02:43 | XMS_ITS | Continuity of Care Document ---
:1960 Author Organization [facility] Address [address], [address] [place] [address]- Care Team Providers Name Role Phone Amilcar Hadley MD Primary Care Physician Encounter 09/01/19 - 09/08/19 [facility] [address], [address] [place] [address]- [facility] Attending Physician: Brittany Mello MD Admitting Physician: Brittany Mello MD Referring Physician: Brittany Mello MD Allergies, Adverse Reactions, Alerts Substance Reaction [...] Given P atient Refuses 1Result Comment: [12/05/2017] [facility]#[id number] Comment: [11/23/2016] [facility] # [id number] Comment: [12/11/2013] vis [id number] Comment: [11/23/2016] [facility] # [phone] Comment: [04/09/2014] pt stated that she was [...] 02/13/2014:55:00 EST, Inhaler, Route to Pharmacy Electronically, [id number], [facility], 154.94, cm, 02/07/19 11:53:00 [...] 3 Refills, Maintenance, 07/10/19 13:08:00 EDT, Tablet, [facility], 158.5, cm, 07/01/19 12:34:00 EDT, [...] 0 Refills, Maintenance, 08/28/19 11:01:00 EDT, Capsule, [facility], 1 capsule By Mouth Daily, 158.5, [...] Refills, Maintenance, 07/29/19 15:59:00 EDT, EC Tablet, [facility], 158.5, cm, 07/29/19 10:33:00 EDT, Height, 84, kg, 192:07:00 EDT, Dry Weight Start Date: 07/29/19 Stop Date: 08/12/19 Status: OrderedDicyclomine = 10 mg, QID PRN, 0 Refills, Maintenance, 07/31/19 11:13:00 EDT Start Date: 07/31/19 Status: Orderedepinephrine 0.3 mg injectable solution 0 Refills, Maintenance, 12/13/18 14:05:43 EDT Start Date: 12/13/18 Status: OrderedEstrace 1 mg oral tablet 1 mg, 1, tablet, By Mouth, Daily, # 90 tablet, Refills 0, Tot. Refills 0, Maintenance, 08/14/19 16:44:00 EDT, Route to Pharmacy Electronically, [facility], 158.5, cm, 07/29/19 10:33:00 EDT, Height, 84, kg, 10/05/18 2:07:00 EDT, Dry Weight Start Date: 08/14/19 Stop Date: 11/12/19 Status: OrderedFish Oil 1000 mg oral capsule 1 capsule = 1,000 mg, By Mouth, Daily, # 90 capsule, 3 Refills, Maintenance, 02/26/19 10:39:00 EST, Capsule, [facility], 154.94, cm, 02/26/19 10:16:00 EST, [...] 08/19/19 8:20:00 EDT, Route to Pharmacy Electronically, [facility], 158.5, cm, 08/04/19 16:24:00EDT, Height, [...] 02/26/19 10:41:00 EST, Route to Pharmacy Electronically, [facility], 154.94, cm, 02/26/19 10:16:00 EST, Hei... Start Date: 02/26/19 Status: OrderedImitrex 100 mg oral tablet 1 tablet = 100 mg, By Mouth, Daily, PRN for migraine headache, may repeat dose after 2 hours up to amaximum of 2, # 9 tablet, 1 Refills, Maintenance, 09/02/19 13:49:00 EDT, Tablet, [facility], 158.5, cm, 08/27/19 12:39:00 EDT, [...] 04/27/19 11:24:00 EDT, Route to Pharmacy Electronically, [facility], 158.5, cm, 04/09/19 15:02:00 EST, Height, [...] 6 Refills, Maintenance, 02/28/2010:35:00 EST, ER Tablet, [facility], 158.5, cm, 02/27/19 13:31:00 EST, Height, 84, kg, 10/05/18 2:07:00 EDT, Dry Weight Start Date: 02/28/19 Stop Date: 09/26/19 Status: Orderedmontelukast 10 mg oral tablet See Instructions, # 90 tablet, Refills 1 Tot. Refills 1, TAKE ONE (1) TABLET BY MOUTH ONCE DAILY IN THE EVENING., [facility] Start Date: 10/31/18 Status: OrderedOne Touch [...] 06/18/18 13:37:18 EDT, Route to Pharmacy Electronically, [id number], [facility] Start Date: 06/18/18 Status: OrderedOrthopedic shoes [...] Maintenance, 08/22/16 14:18:07, Route to Pharmacy Electronically, [id number], [facility] Start Date: 08/22/16 Stop Date: 08/17/17 [...] 07/23/18 13:46:52 EDT, Route to Pharmacy Electronically, [id number], [facility] Start Date: 07/23/18 Status: OrderedSpiriva Respimat [...] 0 Refills, Maintenance, 07/30/19 11:47:00 EDT, Tablet, [facility], 158.5, cm, 07/29/19 10:33:00 EDT,Height, 84, [...] 3 Refills, Maintenance, 06/03/19 10:55:00 EDT, Tablet, [facility], 1 tablet By Mouth Daily, 158.5, cm, 04/09/19 15:02:00 EST, Height, 84, kg, 10/05/18 2:07:00 EDT, Dry Weight Start Date: 06/03/19 Status: OrderedVitamin C 500 mg oral tablet 1 tablet = 500 mg, By Mouth, Daily, # 90 tablet, 0 Refills, Maintenance, 06/20/19 8:43:00 EDT, Tablet, [facility], 158.5, cm, 06/18/19 13:31:00 EDT, Height, [...] 81, WNL, 01/02/13.2skin test pos: mold, trees, [id number] Renae Ouxhpgrfwy6ortjfbg pantoz[place]ole,5[facility] audiology Social History Social History Type Response Smoking Status Former smoker; Tobacco user in household: No; Type: Cigarettes; Tobacco use times per day: UP TO 3 PPD; Stopped at age: 52; entered on: 04/14/14 Sex
--- OUTSIDE RECORDS SUMMARY | 2022-03-26 02:43 | XMS_ITS | Continuity of Care Document ---
:1960 Author Organization [facility] Address [address] [place] [address]- Care Team Providers Name Role Phone Amilcar Hadley MD Primary Care Physician [facility]counter [facility] Date(s): 02/28/19 - 04/12/19 [facility] [address] [place] [address]- [facility] Attending Physician: Amilcar Hadley MD Allergies, Adverse [...] P atient Refuses 1Result Comment: [12/05/2017] [facility]#[id number] Comment: [11/23/2016] [facility] # [id number] Comment: [12/11/2013] vis [id number] Comment: [11/23/2016] [facility] # [id number] Comment: [04/09/2014] pt stated that she was [...] 02/13/2014:55:00 EST, Inhaler, Route to Pharmacy Electronically, [id number], [facility], 154.94, cm, 02/07/19 [...] 0 Refills, Maintenance, 02/26/19 10:39:00 EST, Capsule, [facility], 1 capsule By Mouth Daily, 154.94, [...] 0 Refills, Maintenance, 02/27/19 13:56:00 EST, Patch, [facility], 158.5, cm, 02/27/19 13:31:00 EST, Height, 84, kg, 10/05/18 2:07:00 EDT, Dry Weight Start Date: 02/27/19 Stop Date: 05/28/19 Status: OrderedFish Oil 1000 mg oral capsule 1 capsule = 1,000 mg, By Mouth, Daily, # 90 capsule, 3 Refills, Maintenance, 02/26/19 10:39:00 EST, Capsule, [facility], 154.94, cm, 02/26/19 10:16:00 EST, Height, [...] 03/27/19 16:29:00 EST, Route to Pharmacy Electronically, [facility], 158.5, cm, 03/18/19 11:38:00 EST, [...] 02/26/19 10:41:00 EST, Route to Pharmacy Electronically, [facility], 154.94, cm, 02/26/19 10:16:00 EST, [...] 02/03/19 16:58:00 EST, Route to Pharmacy Electronically, [facility], 154.94, cm, 12/13/18 13:54:00 EDT, [...] 6 Refills, Maintenance, 02/28/2010:35:00 EST, ER Tablet, [facility], 158.5, cm, 02/27/19 13:31:00 EST, Height, 84, kg, 10/05/18 2:07:00 EDT, Dry Weight Start Date: 02/28/19 Stop Date: 09/26/19 Status: Orderedmontelukast 10 mg oral tablet See Instructions, # 90 tablet, Refills 1 Tot. Refills 1, TAKE ONE (1) TABLET BY MOUTH ONCE DAILY IN THE EVENING., [facility] Start Date: 10/31/18 Status: Orderednystatin topical [id number] u/gm powder 1 application, Topically, 2 times a day, for 7 days, # 30 Gm, 0 Refills, Acute 04/16/19 15:20:00 EST, 04/09/19 15:20:00 EST, Powder, [facility], 1 application Topically 2 times a day,x7 days, 158.5, cm, 04/09/19 15:02:00 EST, Height, 84, kg, ... Start Date: 04/09/19 Stop Date: 04/16/19 Status: OrderedOne Touch Ultra 2 Glucose Meter [...] 06/18/18 13:37:18 EDT, Route to Pharmacy Electronically, [id number], [facility] Start Date: 06/18/18 Status: OrderedOrthopedic shoes [...] Maintenance, 08/22/16 14:18:07, Route to Pharmacy Electronically, [id number], [facility] Start Date: 08/22/16 Stop Date: 08/17/17 [...] 07/23/18 13:46:52 EDT, Route to Pharmacy Electronically, [id number], [facility] Start Date: 07/23/18 Status: OrderedSpiriva Respimat [...] 0 Refills, Maintenance, 02/26/19 10:41:00 EST, Tablet, [facility], 154.94, cm, 02/26/19 10:16:00 EST, Height, 84, kg, 10/05/18 2:07:00 EDT, Dry Weight Start Date: 02/26/19 Status: OrderedVitamin B Complex with Folic Acid oral tablet 1 tablet, By Mouth, Daily, # 90 tablet, 3 Refills, Maintenance, 02/26/19 10:39:00 EST, Tablet, [facility], 1 tablet By Mouth Daily, 154.94, [...] 0 Refills, Maintenance, 03/10/19 8:42:00 EST, Tablet, [facility], 158.5, cm, 02/27/19 13:31:00 EST, Height, [...] 81, WNL, 01/02/13.2skin test pos: mold, trees, [id number] Renae Hzucpryond9ffwnuqh [place],5[facility] Social History Social History Type Response Smoking Status Former smoker; Tobacco user in household: No; Type: Cigarettes; Tobacco use times per day: UP TO 3 PPD; Stopped at age: 52; entered on: 04/14/14 Sex
--- OUTSIDE RECORDS SUMMARY | 2022-03-26 02:43 | XMS_ITS | Continuity of Care Document ---
:1960 Author Organization [facility] Address [address] [place] [address]- Care Team Providers Name Role Phone Jomar RUBALCAVA, Amilcar Primary Care Physician [facility] Date[facility]): 09/22[facility]19 - 10/22/19 [facility] [address] [place] [address]- [facility] Allergies, Adverse Reactions, Alerts Substance [...] Given P atient Refuses 1Result Comment: [12/05/2017] [facility]#[id number] Comment: [11/23/2016] [facility] # [id number] Comment: [12/11/2013] vis [id number] Comment: [11/23/2016] [facility] # [id number] Comment: [04/09/2014] pt stated that she was [...] 02/13/2014:55:00 EST, Inhaler, Route to Pharmacy Electronically, [id number], [facility], 154.94, cm, 02/07/19 11:53:00 EST, [...] 3 Refills, Maintenance, 07/10/19 13:08:00 EDT, Tablet, [facility], 158.5, cm, 07/01/19 12:34:00 EDT, Height, [...] 0 Refills, Maintenance, 08/28/19 11:01:00 EDT, Capsule, [facility], 1 capsule By Mouth Daily, 158.5, [...] Refills, Maintenance, 07/29/19 15:59:00 EDT, EC Tablet, [facility], 158.5, cm, 07/29/19 10:33:00 EDT, Height, [...] Refills, Soft Stop, 10/02/19 12:24:00 EDT, Tablet, [facility], 158.5, cm, 08/27/19 12:39:00 EDT, Height, 84, kg, 10/05/18 2:07:00 EDT, Dry Weight Start Date: 10/02/19 Status: Orderedepinephrine 0.3 mg injectable solution 0 Refills, Maintenance, 12/13/18 14:05:43 EDT Start Date: 12/13/18 Status: OrderedEstrace 1 mg oral tablet 1 mg, 1, tablet, By Mouth, Daily, # 90 tablet, Refills 1, Tot. Refills 1, Maintenance, 11/12/19 16:44:00 EDT, Route to Pharmacy Electronically, [facility], 158.5, cm, 08/27/19 12:39:00 EDT, Height, 84, kg, 10/05/18 2:07:00 EDT, Dry Weight Start Date: 11/12/19 Stop Date: 05/10/20 Status: OrderedEstrace 1 mg oral tablet 1 mg, 1, tablet, By Mouth, Daily, for 90 days, # 90 tablet, Refills 0, Tot. Refills 0, Hard Stop 11/12/19 16:44:00 EDT, 08/14/19 16:44:00 EDT, Route to Pharmacy Electronically, [facility], 158.5,cm, 07/29/19 10:33:00 EDT, Height, 84, kg, ... Start Date: 08/14/19 Stop Date: 11/12/19 Status: OrderedFish Oil 1000 mg oral capsule 1 capsule = 1,000 mg, By Mouth, Daily, # 90 capsule, 3 Refills, Maintenance, 02/26/19 10:39:00 EST, Capsule, [facility], 154.94, cm, 02/26/19 10:16:00 EST, Height, [...] 08/19/19 8:20:00 EDT, Route to Pharmacy Electronically, [facility], 158.5, cm, 08/04/19 16:24:00EDT, Height, 84, [...] 02/26/19 10:41:00 EST, Route to Pharmacy Electronically, [facility], 154.94, cm, 02/26/19 10:16:00 EST, Hei... Start Date: 02/26/19 Status: OrderedImitrex 100 mg oral tablet 1 tablet = 100 mg, By Mouth, Daily, PRN for migraine headache, may repeat dose after 2 hours up to amaximum of 2, # 9 tablet, 1 Refills, Maintenance, 10/14/19 15:06:00 EDT, Tablet, [facility], 158.5, cm, 08/27/19 12:39:00 EDT, Height, 84, kg, 0... Start Date: 10/14/19 Status: Orderedlactase 9000 u oral tablet 1 [...] 04/27/19 11:24:00 EDT, Route to Pharmacy Electronically, [facility], 158.5, cm, 04/09/19 15:02:00 EST, Height, [...] 5 Refills, Maintenance, 10/17/2011:57:00 EDT, ER Tablet, [facility], 158.5, cm, 08/27/19 12:39:00 EDT, Height, 84, kg, 10/05/18 2:07:00 EDT, Dry Weight Start Date: 10/17/19 Status: Orderedmontelukast 10 mg oral tablet See Instructions, # 90 tablet, Refills 1 Tot. Refills 1, TAKE ONE (1) TABLET BY MOUTH ONCE DAILY IN THE EVENING., [facility] Start Date: 10/31/18 Status: OrderedOne Touch [...] 06/18/18 13:37:18 EDT, Route to Pharmacy Electronically, [id number], [facility] Start Date: 06/18/18 Status: OrderedOrthopedic shoes [...] Maintenance, 08/22/16 14:18:07, Route to Pharmacy Electronically, [id number], [facility] Start Date: 08/22/16 Stop Date: 08/17/17 [...] 07/23/18 13:46:52 EDT, Route to Pharmacy Electronically, [id number], [facility] Start Date: 07/23/18 Status: OrderedSpiriva Respimat [...] 0 Refills, Maintenance, 07/30/19 11:47:00 EDT, Tablet, [facility], 158.5, cm, 07/29/19 10:33:00 EDT,Height, 84, [...] 3 Refills, Maintenance, 06/03/19 10:55:00 EDT, Tablet, [facility], 1 tablet By Mouth Daily, 158.5, cm, 04/09/19 15:02:00 EST, Height, 84, kg, 10/05/18 2:07:00 EDT, Dry Weight Start Date: 06/03/19 Status: OrderedVitamin C 500 mg oral tablet 1 tablet = 500 mg, By Mouth, Daily, # 90 tablet, 0 Refills, Maintenance, 10/14/19 14:32:00 EDT, Tablet, [facility], 158.5, cm, 08/27/19 12:39:00 EDT, Height, [...] 81, WNL, 01/02/13.2skin test pos: mold, trees, [id number] Renae [id number] pantozapole,5[facility] audiology Social History Social History Type Response Smoking Status Former smoker; Tobacco user in household: No; Type: Cigarettes; Tobacco use times per day: UP TO 3 PPD; Stopped at age: 52; entered on: 04/14/14 Sex
--- OUTSIDE RECORDS SUMMARY | 2022-03-26 02:44 | XMS_ITS | Continuity of Care Document ---
:1960 Author Organization [facility] Address [address] [place] [id number]- Care Team Providers Name Role Phone Prashant Arabella ALVARADO Primary Care Physician Encounter [facility] Date(s): 09/27/21 - 09/28/[address] [address]- Encounter Diagnosis Ureteral stone (Final) - 09/28/21 Abdominal pain (Final) - 09/28/21 Discharge Disposition: A-D/C Home Attending Physician: Nick Ponce DO Admitting Physician: Nick Ponce DO Referring Physician: Not on Staff, Referring MD Allergies, Adverse Reactions, Alerts Substance Reaction Severity Status propranolol Active amoxicillin abdominal pain Active morphine Morphine allergy Active nabumetone Active doxycycline hives Active thiazide diuretics hives Active Contrast Dye1 hives Active SEROquel XR unknown Active sulfamethoxazole-trimethoprim hives Ac tive aspirin dyspepsia Active Bactrim hives Active Augmentin stomach pain Active Fish Active 1? Rash Immunizations Given and Recorded [...] Not Given P atient Refuses 1Result Comment: [facility]:[id number] Comment: [12/05/2017] [facility]#[id number] Result Comment: [11/23/2016] [facility] # [id number] Comment: [12/11/2013] vis [id number] Comment: [11/23/2016] [facility] # [id number] Comment: [04/09/2014] pt stated that she was [...] 02/13/2014:55:00 EST, Inhaler, Route to Pharmacy Electronically, [id number], [facility], 154.94, cm, 02/07/19 11:53:00 [...] 3 Refills, Maintenance, 07/10/19 13:08:00 EDT, Tablet, [facility], 158.5, cm, 07/01/19 12:34:00 EDT, Height, [...] 0 Refills, Maintenance, 06/17/20 9:47:00 EDT, Capsule, [facility], 1 capsule By Mouth Daily, 156, [...] Refills, Soft Stop, 10/02/19 12:24:00 EDT, Tablet, [facility], 158.5, cm, 08/27/19 12:39:00 EDT, Height, 84, kg, 10/05/18 2:07:00 EDT, Dry Weight Start Date: 10/02/19 Status: Orderedepinephrine 0.3 mg injectable solution 0 Refills, Maintenance, 12/13/18 14:05:43 EDT Start Date: 12/13/18 Status: Orderedestradiol 1 mg oral tablet 1, tablet, By Mouth, Daily, # 90 tablet, Refills 0, Tot. Refills 0, Maintenance, 06/21/20 12:46:00 EDT, Route to Pharmacy Electronically, [facility], 155, cm, 06/18/20 0:35:00 EDT, Height, 80, kg, 06/18/20 0:35:00 EDT, Dry Weight Start Date: 06/21/20 Status: OrderedFish Oil 1000 mg oral capsule 1 capsule = 1,000 mg, By Mouth, Daily, # 90 capsule, 3 Refills, Maintenance, 02/26/19 10:39:00 EST, Capsule, [facility], 154.94, cm, 02/26/19 10:16:00 [...] 0 Refills, Maintenance, 01/21/20 8:28:00 EST, Tablet, [facility], Partial fill upon patient [...] 1 Refills, Maintenance, 01/12/20 9:22:00 EST, Tablet, [facility], 158.5, cm, 01/07/20 15:56:00 EST, Height, 84, kg, 08... Start Date: 01/12/20 Status: OrderedImitrex 100 mg oral tablet 1 tablet = 100 mg, By Mouth, Daily, PRN for migraine headache, may repeat dose after 2 hours up to amaximum of 2, # 9 tablet, 1 Refills, Maintenance, 10/14/19 15:06:00 EDT, Tablet, [facility], 158.5, cm, 08/27/19 12:39:00 EDT, [...] 11/06/19 10:32:00 EDT, Route to Pharmacy Electronically, [facility], 158.5, cm, 11/04/19 8:30:00 EDT, [...] 5 Refills, Maintenance, 04/09/2111:50:00 EST, ER Tablet, [facility], 156, cm, 01/22/20 18:13:00 EST, Height, 85, kg, 01/22/20 18:13:00 EST, Dry Weight Start Date: 04/09/20 Status: Orderedmontelukast 10 mg oral tablet See Instructions, # 90 tablet, Refills 1 Tot. Refills 1, TAKE ONE (1) TABLET BY MOUTH ONCE DAILY IN THE EVENING., [facility] Start Date: 10/31/18 Status: Orderedmultivitamin Vitamin B Complex oral capsule 1 capsule, By Mouth, Daily, # 90 capsule, 0 Refills, Maintenance, 06/17/20 9:47:00 EDT, Capsule, [facility], Partial fill upon patient request if the prescription is for a schedule II opioid drug., 1 capsule By Mouth Daily, 156, cm, 01/22/20 18:... Start Date: 06/17/20 Status: Orderedondansetron 4 mg oral tablet, disintegrating 1 tablet = 4 mg, By Mouth, 3 times a day, PRN as needed for nausea/vomiting, # 10 tablet, 0 Refills,Soft Stop, 09/28/21 0:26:00 EDT, DIS Tablet, [facility]/pharmacy #[id number], Partial fill upon patient request if the prescription is for a schedule II opioid moriah... Start Date: 09/28/21 Stop Date: 10/01/21 Status: OrderedOne Touch Ultra 2 Glucose Meter [...] 06/18/18 13:37:18 EDT, Route to Pharmacy Electronically, [id number], [facility] Start Date: 06/18/18 Status: OrderedOrthopedic shoes Orthopedic shoes, See Instructions, # 1 each, Refills 0, Tot. Refills 0, Maintenance, Orthopedic shoes DX osteoarthritis and knee pain, 06/07/16 9:49:36, Compound Start Date: 06/07/16 Status: OrderedOrthotics See Instructions, # 1 pair, Maintenance, Padded insoles with arch supports, 06/01/17 17:15:33 EDT, Compound Start Date: 06/01/17 Status: OrderedoxyCODONE 5 mg oral tablet 5 mg, Tablet, By Mouth, Once, STAT, 09/27/21 21:58:00 EDT, Stop date 09/27/21 21:58:00 EDT Start Date: 09/27/21 Stop Date: 09/27/21 Status: CompletedoxyCODONE 5 mg oral tablet 5 mg, 1, tablet, By Mouth, Every 6 hours, PRN, for 5 days, # 20 tablet, Refills 0, Tot. Refills 0, Acute 10/03/21 0:25:00 EDT, as needed for pain, 09/28/21 0:25:00 EDT, Route to Pharmacy Electronically, [facility]/pharmacy #[id number], Partial fill upon patient re... Start Date: 09/28/21 Stop Date: 10/03/21 Status: Orderedpantoprazole 40 mg oral delayed release tablet 40 mg, By Mouth, 2 times a day, # 180 each, Refills 3, Tot. Refills 3, Maintenance, 08/22/16 14:18:07, Route to Pharmacy Electronically, [id number], [facility] Start Date: 08/22/16 Stop Date: 08/17/17 [...] 1 Refills, Maintenance, 12/30/19 11:05:00 EST, Tablet, [facility], 158.5, cm, 12/10/19 14:54:00 EDT, Height, 84, kg, 10/05/18 2:07:00 EDT, Dry Weight Start Date: 12/30/19 Status: OrderedVitamin B Complex with Folic Acid oral tablet 1 tablet, By Mouth, Daily, # 90 tablet, 3 Refills, Maintenance, 06/03/19 10:55:00 EDT, Tablet, [facility], 1 tablet By Mouth Daily, 158.5, cm, 04/09/19 15:02:00 EST, Height, 84, kg, 10/05/18 2:07:00 EDT, Dry Weight Start Date: 06/03/19 Status: OrderedVitamin C 500 mg oral tablet 1 tablet = 500 mg, By Mouth, Daily, # 90 tablet, 0 Refills, Maintenance, 01/12/20 14:32:00 EST, Tablet, [facility], 158.5, cm, 01/07/20 15:56:00 EST, Height, 84, kg, 10/05/18 2:07:00 EDT, Dry Weight Start Date: 01/12/20 Stop Date: 04/11/20 Status: OrderedVoltaren 1% topical gel 1 application, Topically, 4 times a day, PRN for pain, # 100 Gm, 0 Refills, Maintenance, 01/07/20 16:13:00 EST, Gel, [facility], Partial fill upon patient request, 1 [...] 81, WNL, 01/02/13.2skin test pos: mold, trees, [id number] Renae Vxvxdnppis0yghctee pantozapole,5[facility] Vital Signs Most recent to oldest 1 2 3 [Reference Range]: Height 155 cm 155 cm (09/27/21 7:16 PM) (09/27/21 7:13 PM) Weight 81.5 kg 81.5 kg (09/27/21 7:16 PM) (09/27/21 7:13 PM) Oxygen Saturation [94-100 %] 98 % 98 % 97 % (09/27/21 11:00 PM) (09/27/21 9:00 PM) (09/27/21 7: 13 PM) Pulse Rate [55-90 bpm] 80 bpm 85 bpm 91 bpm (09/27/21 11:00 PM) (09/27/21 9:00 PM) *H* (09/27/21 7:13 PM ) Body Mass Index [18.5-24.99] 33.92 *>HHI* (09/27/21 7:13 PM) Blood Pressure [90-138/55-84 122/68 mm Hg 126/72 mm Hg 130 /70 mm Hg mm Hg] (09/27/21 11:00 PM) (09/27/21 9:00 PM) (09/27/21 7: 13 PM) Respiratory Rate [16-30 18 br/min 18 br/min 18 br/mi n br/min] (09/27/21 11:00 PM) (09/27/21 10:18 PM) (09/27/21 9 :00 PM) Temperature [96.8-100.4 DegF] 97.9 DegF (09/27/21 7:13 PM) Mode of Delivery (Oxygen) Room air Room air Room a ir (09/27/21 11:00 PM) (09/27/21 9:00 PM) (09/27/21 7: 13 PM) Blood pressure sites Arm, left Arm, right Arm, right (09/27/21 11:00 PM) (09/27/21 9:00 PM) (09/27/21 7: 13 PM) Temperature Route Temporal (09/27/21 7:13 PM) Dry Weight 81.5 kg 81.5 kg (09/27/21 7:16 PM) (09/27/21 7:13 PM) Social History Social History Type Response Smoking Status Former smoker; Tobacco user in household: No; Type: Cigarettes; Tobacco use times per day: UP TO 3 PPD; Stopped at age: 52; entered on: 04/14/14 Sex
--- OUTSIDE RECORDS SUMMARY | 2022-03-26 02:44 | XMS_ITS | Continuity of Care Document ---
:1960 Author Organization [facility] Address [address] [place] [address]- Care Team Providers Name Role Phone Amilcar Hadley MD Primary Care Physician [facility] Date[facility]s): 02/26/19 - 03/05/[address] [address]- [facility] Attending Physician: Amilcar Hadley MD Allergies, Adverse [...] 1Result Comment: [12/05/2017] [facility]#[phone] Comment: [11/23/2016] [facility] # [id number] Comment: [12/11/2013] vis [id number] Comment: [11/23/2016] [facility] # [id number] Comment: [04/09/2014] pt stated that she was [...] 02/13/2014:55:00 EST, Inhaler, Route to Pharmacy Electronically, [id number], [facility], 154.94, cm, 02/07/19 11:53:00 EST, [...] 0 Refills, Maintenance, 02/26/19 10:39:00 EST, Capsule, [facility], 1 capsule By Mouth Daily, 154.94, [...] 0 Refills, Maintenance, 02/27/19 13:56:00 EST, Patch, [facility], 158.5, cm, 02/27/19 13:31:00 EST, Height, 84, kg, 10/05/18 2:07:00 EDT, Dry Weight Start Date: 02/27/19 Stop Date: 05/28/19 Status: OrderedFish Oil 1000 mg oral capsule 1 capsule = 1,000 mg, By Mouth, Daily, # 90 capsule, 3 Refills, Maintenance, 02/26/19 10:39:00 EST, Capsule, [facility], 154.94, cm, 02/26/19 10:16:00 EST, Height, [...] 15:07:00 EST, Route to Pharmacy Electronically, [facility], 154.94, cm, 12/13/18 13:54:00 EDT, [...] 16:58:00 EST, Route to Pharmacy Electronically, [facility], 154.94, cm, 12/13/18 13:54:00 EDT, [...] 06/18/18 13:37:18 EDT, Route to Pharmacy Electronically, [id number], [facility] Start Date: 06/18/18 Status: OrderedOrthopedic shoes [...] Maintenance, 08/22/16 14:18:07, Route to Pharmacy Electronically, [id number], [facility] Start Date: 08/22/16 Stop Date: 08/17/17 [...] 07/23/18 13:46:52 EDT, Route to Pharmacy Electronically, [id number], [facility] Start Date: 07/23/18 Status: OrderedSpiriva [...] 0 Refills, Maintenance, 02/26/19 10:41:00 EST, Tablet, [facility], 154.94, cm, 02/26/19 10:16:00 EST, Height, 84, kg, 10/05/18 2:07:00 EDT, Dry Weight Start Date: 02/26/19 Status: OrderedVitamin B Complex with Folic Acid oral tablet 1 tablet, By Mouth, Daily, # 90 tablet, 3 Refills, Maintenance, 02/26/19 10:39:00 EST, Tablet, [facility], 1 tablet By Mouth Daily, 154.94, [...] 81, WNL, 01/02/13.2skin test pos: mold, trees, [id number] Renae [id number] pantozapole,5[facility] Social History Social History Type Response Smoking Status Former smoker; Tobacco user in household: No; Type: Cigarettes; Tobacco use times per day: UP TO 3 PPD; Stopped at age: 52; entered on: 04/14/14 Sex
--- OUTSIDE RECORDS SUMMARY | 2022-03-26 02:44 | XMS_ITS | Continuity of Care Document ---
:1960 Author Organization [facility] Address [address] [place] [address]- Care Team Providers Name Role Phone Jomar RUBALCAVA, Amilcar Primary Care Physician [facility]): [facility] - [facility]20 [facility] [address] [place] [address]- Allergies, Adverse Reactions, Alerts Substance Reaction Severity Status propranolol Active doxycycline hives Active amoxicillin abdominal pain Active sulfamethoxazole-trimethoprim hives Ac tive aspirin dyspepsia Active nabumetone Active thiazide diuretics hives Active Augmentin stomach pain Active Bactrim hives Active Contrast Dye1 hives Active SEROquel XR unknown Active morphine Morphine allergy Active 1? Rash Immunizations Given and Recorded [...] Given P atient Refuses 1Result Comment: [facility]:[id number] Comment: [12/05/2017] [facility]#[id number] Result Comment: [11/23/2016] [facility] # [id number] Comment: [12/11/2013] vis [id number] Comment: [11/23/2016] [facility] # [id number] Comment: [04/09/2014] pt stated that she was [...] 02/13/2014:55:00 EST, Inhaler, Route to Pharmacy Electronically, [id number], [facility], 154.94, cm, 02/07/19 11:53:00 EST, He... [...] Date: 01/10/18 Status: OrderedCentury Women's Daily Multivitamin [place] Women's Daily Multivitamin, 1, tablet, By Mouth, [...] 3 Refills, Maintenance, 07/10/19 13:08:00 EDT, Tablet, [facility], 158.5, cm, 07/01/19 12:34:00 EDT, Height, [...] Daily, # 90 capsule, 0 Refills, Maintenance, 12/19/19 14:27:00 EST, Capsule, [facility], 1 capsule By Mouth Daily, 158.5, cm, 12/10/19 14:54:00 EDT, Height, 84, kg, 10/05/18 2:07:00 EDT, Dry Weight Start Date: 12/19/19 Status: OrderedCONTROL SUBSTANCE CONTROL SUBSTANCE, Refills 0, Maintenance, 02/23/16 14:19:04, Compound Start Date: 02/23/16 Status: OrderedDicyclomine = 10 mg, QID PRN, 0 Refills, Maintenance, 07/31/19 11:13:00 EDT Start Date: 07/31/19 Status: OrderedDiflucan 150 mg oral tablet 1 tablet = 150 mg, By Mouth, Once, May repeat once in 72 hours if needed., # 1 tablet, 1 Refills, Soft Stop, 10/02/19 12:24:00 EDT, Tablet, [facility], 158.5, cm, 08/27/19 12:39:00 EDT, Height, 84, kg, 10/05/18 2:07:00 EDT, Dry Weight Start Date: 10/02/19 Status: Orderedepinephrine 0.3 mg injectable solution 0 Refills, Maintenance, 12/13/18 14:05:43 EDT Start Date: 12/13/18 Status: OrderedEstrace 1 mg oral tablet 1 mg, 1, tablet, By Mouth, Daily, # 90 tablet, Refills 1, Tot. Refills 1, Maintenance, 11/12/19 16:44:00 EDT, Route to Pharmacy Electronically, [facility], 158.5, cm, 08/27/19 12:39:00 EDT, Height, 84, kg, 10/05/18 2:07:00 EDT, Dry Weight Start Date: 11/12/19 Stop Date: 05/10/20 Status: OrderedFish Oil 1000 mg oral capsule 1 capsule = 1,000 mg, By Mouth, Daily, # 90 capsule, 3 Refills, Maintenance, 02/26/19 10:39:00 EST, Capsule, [facility], 154.94, cm, 02/26/19 10:16:00 EST, Height, [...] Refills, Maintenance, 01/21/20 8:28:00 EST, Tablet, [facility], Partial fill upon patient [...] Refills, Maintenance, 01/12/20 9:22:00 EST, Tablet, [facility], 158.5, cm, 01/07/20 15:56:00 EST, Height, 84, kg, 08... Start Date: 01/12/20 Status: OrderedImitrex 100 mg oral tablet 1 tablet = 100 mg, By Mouth, Daily, PRN for migraine headache, may repeat dose after 2 hours up to amaximum of 2, # 9 tablet, 1 Refills, Maintenance, 10/14/19 15:06:00 EDT, Tablet, [facility], 158.5, cm, 08/27/19 12:39:00 EDT, Height, [...] 11/06/19 10:32:00 EDT, Route to Pharmacy Electronically, [facility], 158.5, cm, 11/04/19 8:30:00 EDT, Height,84, [...] 5 Refills, Maintenance, 10/17/2011:57:00 EDT, ER Tablet, [facility], 158.5, cm, 08/27/19 12:39:00 EDT, Height, 84, kg, 10/05/18 2:07:00 EDT, Dry Weight Start Date: 10/17/19 Status: Orderedmontelukast 10 mg oral tablet See Instructions, # 90 tablet, Refills 1 Tot. Refills 1, TAKE ONE (1) TABLET BY MOUTH ONCE DAILY IN THE EVENING., [facility] Start Date: 10/31/18 Status: OrderedOne Touch [...] 06/18/18 13:37:18 EDT, Route to Pharmacy Electronically, [id number], [facility] Start Date: 06/18/18 Status: OrderedOrthopedic shoes [...] Maintenance, 08/22/16 14:18:07, Route to Pharmacy Electronically, [id number], [facility] Start Date: 08/22/16 Stop Date: [...] 1 Refills, Maintenance, 12/30/19 11:05:00 EST, Tablet, [facility], 158.5, cm, 12/10/19 14:54:00 EDT, Height, 84, kg, 10/05/18 2:07:00 EDT, Dry Weight Start Date: 12/30/19 Status: OrderedVitamin B Complex with Folic Acid oral tablet 1 tablet, By Mouth, Daily, # 90 tablet, 3 Refills, Maintenance, 06/03/19 10:55:00 EDT, Tablet, [facility], 1 tablet By Mouth Daily, 158.5, cm, 04/09/19 15:02:00 EST, Height, 84, kg, 10/05/18 2:07:00 EDT, Dry Weight Start Date: 06/03/19 Status: OrderedVitamin C 500 mg oral tablet 1 tablet = 500 mg, By Mouth, Daily, # 90 tablet, 0 Refills, Maintenance, 01/12/20 14:32:00 EST, Tablet, [facility], 158.5, cm, 01/07/20 15:56:00 EST, Height, 84, kg, 10/05/18 2:07:00 EDT, Dry Weight Start Date: 01/12/20 Stop Date: 04/11/20 Status: OrderedVoltaren 1% topical gel 1 application, Topically, 4 times a day, PRN for pain, # 100 Gm, 0 Refills, Maintenance, 01/07/20 16:13:00 EST, Gel, [facility], Partial fill upon patient request, 1 [...] 81, WNL, 01/02/13.2skin test pos: mold, trees, [id number] Renae [id number] pantozapole,5[facility] Social History Social History Type Response Smoking Status Former smoker; Tobacco user in household: No; Type: Cigarettes; Tobacco use times per day: UP TO 3 PPD; Stopped at age: 52; entered on: 04/14/14 Sex
--- OUTSIDE RECORDS SUMMARY | 2022-03-26 02:44 | XMS_ITS | Continuity of Care Document ---
:1960 Author Organization [facility] Address [address] [place] [address]- Care Team Providers Name Role Phone Cami Isaac MD Primary Care Physician [facility]counter [facility] Date(s): 02/07/19 - 02/14/19 [facility] [address] [place] [address]- [facility] Attending Physician: Eden RUBALCAVA, Sebastien Gomez Referring Physician: Cami Isaac MD Allergies, Adverse [...] Given P atient Refuses 1Result Comment: [12/05/2017] [facility][note 3]#[id number] Comment: [11/23/2016] [facility] # [id number] Comment: [12/11/2013] vis [id number] Comment: [11/23/2016] [facility] # [id number] Comment: [04/09/2014] pt stated that she was [...] 02/13/2014:55:00 EST, Inhaler, Route to Pharmacy Electronically, [id number], [facility], 154.94, cm, 02/07/19 11:53:00 EST, [...] capsule 1 capsule, By Mouth, Daily, # 30 capsule, 0 Refills, Maintenance, 12/17/17 10:24:56 EST, Capsule Start Date: 12/17/17 Status: OrderedCONTROL SUBSTANCE CONTROL SUBSTANCE, Refills 0, Maintenance, 02/23/16 14:19:04, Compound Start Date: 02/23/16 Status: Orderedepinephrine 0.3 mg injectable solution 0 Refills, Maintenance, 12/13/18 14:05:43 EDT Start Date: 12/13/18 Status: Orderedestradiol 2 mg oral tablet 1 tablet = 2 mg, By Mouth, Daily, # 30 tablet, 11 Refills, Maintenance, 02/14/18 11:35:41 EST, Tablet Start Date: 02/14/18 Stop Date: 02/09/19 Status: OrderedFish Oil By Mouth, 0 Refills, Maintenance, 07/24/15 16:04:49 Start Date: 07/24/15 Status: OrderedFreestyle Lite Monitor See Instructions, # [...] 02/04/19 15:07:00 EST, [facility] to [facility] Electronically, [facility], 154.94, cm, 12/13/18 13:54:00 EDT, Height, [...] tablet 600 mg, 1, tablet, By Mouth, 3 times a day, PRN, with food or milk, # 15 tablet, Refills 0, Tot. Refills 0, Maintenance, Pain , Moderate, 11/06/18 15:21:23 EDT, Route to Pharmacy Electronically, [id number], [facility] Start Date: 11/06/18 Stop Date: 11/11/18 Status: OrderedImitrex 100 mg oral tablet 1 [...] 02/03/19 16:58:00 EST, Route to Pharmacy Electronically, [facility], 154.94, cm, 12/13/18 13:54:00 EDT, Height, [...] 14:07:38 EDT, Tablet Start Date: 12/13/18 Status: Orderedmontelukast 10 mg oral tablet See Instructions, # 90 tablet, Refills 1 Tot. Refills 1, TAKE ONE (1) TABLET BY MOUTH ONCE DAILY IN THE EVENING., [facility] Start Date: 10/31/18 Status: OrderedMultivitamin Daily, 0 Refills, Maintenance, 12/13/18 14:07:46 EDT Start Date: 12/13/18 Status: OrderedOne Touch Ultra 2 Glucose Meter [...] 06/18/18 13:37:18 EDT, Route to Pharmacy Electronically, [id number], [facility] Start Date: 06/18/18 Status: OrderedOrthopedic [...] Maintenance, 08/22/16 14:18:07, Route to Pharmacy Electronically, [id number], [facility] Start Date: 08/22/16 Stop Date: 08/17/17 Status: OrderedpredniSONE 20 mg oral tablet See Instructions, 3 tabs PO QD x3 days, then 2 tabs PO QD x3 days, then 1 tab PO QD x3 days., # 18 tablet, 0 Refills, Acute 02/21/19 13:17:00 EST, 02/07/19 13:16:00 EST, Tablet, [facility], 154.94, cm, 02/07/19 11:53:00 EST, Height, 84, kg, 2... Start Date: 02/07/19 Stop Date: 02/21/19 Status: OrderedQvar Redihaler 80 mcg/inh inhalation aerosol [...] 07/23/18 13:46:52 EDT, Route to Pharmacy Electronically, [id number], [facility] Start Date: 07/23/18 Status: OrderedSpiriva Respimat [...] daily, # 50 tablet, 0 Refills, Maintenance, 12/26/17 13:54:42 EST, Tablet Start Date: 12/26/17 Status: OrderedVitamin B Complex with Folic Acid [...] Active Back pain(Confirmed) Active Bipolar disorder(Confirmed)3 Active GERD - Gastro-esophageal reflux Active disease(Confirmed)4 H/O: prolonged corticosteroid Active therapy(Confirmed) Hearing loss(Confirmed)5 Active Hypertension(Confirmed) Active Kidney stones(Confirmed) Active Knee pain, right- 08/29/13 Xray showed Active loss of medial meniscus(Confirmed) UTI (lower urinary tract Active infection)(Confirmed) Migraine(Confirmed) Active OA - Osteoarthritis(Confirmed) Active Obesity(Confirmed) Active Pelvic pain in female(Confirmed) Active Pernicious anemia(Confirmed) Active PTSD (post-traumatic stress Active disorder)(Confirmed) Seasonal allergies(Confirmed) Active Shoulder pain, left(Confirmed) Active Shoulder pain, right(Confirmed) Active MRSA colonization(Confirmed) Active 1RAST 36 ALLERGENS, ALL 0, EXC 3+ ROACHES. IGE 83, WNL, 01/02/13.2skin test pos: mold, trees, alszb5Ot Renae Trxyeenlbk3xcpobqi pantozapole,5[facility] Vital Signs Most recent to oldest [Reference Range]: 1 Height 154.94 cm (02/07/19 11:53 AM) Oxygen Saturation [94-100 %] 99 % (02/07/19 11:53 AM) Pulse Rate [55-90 bpm] 84 bpm (02/07/19 11:53 AM) Blood Pressure [90-138/55-84 mm Hg] 123/73 mm Hg (02/07/19 11:53 AM) Respiratory Rate [16-30 br/min] 20 br/min (02/07/19 11:53 AM) Temperature [96.8-100.4 DegF] 96.9 DegF (02/07/19 11:53 AM) Mode of Delivery (Oxygen) Room air (02/07/19 11:53 AM) Blood pressure sites Arm, left (02/07/19 11:53 AM) Temperature Route Oral (02/07/19 11:53 AM) Social History Social History Type Response Smoking Status Former smoker; Tobacco user in household: No; Type: Cigarettes; Tobacco use times per day: UP TO 3 PPD; Stopped at age: 52; entered on: 04/14/14 Sex
--- OUTSIDE RECORDS SUMMARY | 2022-03-26 02:44 | XMS_ITS | Continuity of Care Document ---
:1960 Author Organization [facility] Address [address] [place] [address]- Care Team Providers Name Role Phone Amilcar Hadley MD Primary Care Physician Encounter [facility] Date(s): 11/03/19 - 12/03/19 [facility] [address] [place] [address]- [facility] Attending Physician: Tiffany Denney Admitting Physician: Tiffany Denney Referring Physician: AdmtrTiffany Allergies, Adverse Reactions, Alerts Substance Reaction Severity [...] Not Given P atient Refuses 1Result Comment: [facility]:[id number] Comment: [12/05/2017] [facility]#[id number] Result Comment: [11/23/2016] [facility] # [id number] Comment: [12/11/2013] vis [id number] Comment: [11/23/2016] [facility] # [id number] Comment: [04/09/2014] pt stated that she was [...] 02/13/2014:55:00 EST, Inhaler, Route to Pharmacy Electronically, [id number], [facility], 154.94, cm, 02/07/19 11:53:00 [...] 3 Refills, Maintenance, 07/10/19 13:08:00 EDT, Tablet, [facility], 158.5, cm, 07/01/19 12:34:00 EDT, [...] 0 Refills, Maintenance, 08/28/19 11:01:00 EDT, Capsule, [facility], 1 capsule By Mouth Daily, [...] Refills, Soft Stop, 10/02/19 12:24:00 EDT, Tablet, [facility], 158.5, cm, 08/27/19 12:39:00 EDT, Height, 84, kg, 10/05/18 2:07:00 EDT, Dry Weight Start Date: 10/02/19 Status: Orderedepinephrine 0.3 mg injectable solution 0 Refills, Maintenance, 12/13/18 14:05:43 EDT Start Date: 12/13/18 Status: OrderedEstrace 1 mg oral tablet 1 mg, 1, tablet, By Mouth, Daily, # 90 tablet, Refills 1, Tot. Refills 1, Maintenance, 11/12/19 16:44:00 EDT, Route to Pharmacy Electronically, [facility], 158.5, cm, 08/27/19 12:39:00 EDT, Height, 84, kg, 10/05/18 2:07:00 EDT, Dry Weight Start Date: 11/12/19 Stop Date: 05/10/20 Status: OrderedFish Oil 1000 mg oral capsule 1 capsule = 1,000 mg, By Mouth, Daily, # 90 capsule, 3 Refills, Maintenance, 02/26/19 10:39:00 EST, Capsule, [facility], 154.94, cm, 02/26/19 10:16:00 EST, [...] 08/14/17 Status: Orderedgabapentin 300 mg oral capsule See Instructions, take 300 mg in am, 600 mg in afternoon and 300 mg in the evening., # 270 capsule, Refills 2, Tot. Refills 2, Maintenance, 11/21/19 15:41:00 EDT, Instructions Replace Required Details,Route to Pharmacy Electronically, [facility] Start Date: 11/21/19 Status: OrderedGas-X = 80 mg, 3 times [...] 11/06/19 12:00:00 EDT, Route to Pharmacy Electronically, [facility], 158.5, cm, 11/06/19 10:48:00 EDT, Heig... Start Date: 11/06/19 Stop Date: 11/20/19 Status: OrderedImitrex 100 mg oral tablet 1 tablet = 100 mg, By Mouth, Daily, PRN for migraine headache, may repeat dose after 2 hours up to amaximum of 2, # 9 tablet, 1 Refills, Maintenance, 11/21/19 13:47:00 EDT, Tablet, [facility], 158.5, cm, 11/19/19 15:50:00 EDT, Height, 84, kg, 0... Start Date: 11/21/19 Status: OrderedImitrex 100 mg oral tablet 1 tablet = 100 mg, By Mouth, Daily, PRN for migraine headache, may repeat dose after 2 hours up to amaximum of 2, # 9 tablet, 1 Refills, Maintenance, 10/14/19 15:06:00 EDT, Tablet, [facility], 158.5, cm, 08/27/19 12:39:00 EDT, [...] 11/06/19 10:32:00 EDT, Route to Pharmacy Electronically, [facility], 158.5, cm, 11/04/19 8:30:00 EDT, [...] 5 Refills, Maintenance, 10/17/2011:57:00 EDT, ER Tablet, [facility], 158.5, cm, 08/27/19 12:39:00 EDT, Height, 84, kg, 10/05/18 2:07:00 EDT, Dry Weight Start Date: 10/17/19 Status: Orderedmontelukast 10 mg oral tablet See Instructions, # 90 tablet, Refills 1 Tot. Refills 1, TAKE ONE (1) TABLET BY MOUTH ONCE DAILY IN THE EVENING., [facility] Start Date: 10/31/18 Status: OrderedOne [...] 06/18/18 13:37:18 EDT, Route to Pharmacy Electronically, [id number], [facility] Start Date: 06/18/18 Status: OrderedOrthopedic [...] Maintenance, 08/22/16 14:18:07, Route to Pharmacy Electronically, [id number], [facility] Start Date: 08/22/16 Stop Date: 08/17/17 [...] 1 Refills, Maintenance, 11/06/19 11:59:00 EDT, Tablet, [facility], 158.5, cm, 11/06/19 10:48:00 EDT,Height, 84, kg, 10/05/18 2:07:00 EDT, Dry Weight Start Date: 11/06/19 Status: OrderedVitamin B Complex with Folic Acid oral tablet 1 tablet, By Mouth, Daily, # 90 tablet, 3 Refills, Maintenance, 06/03/19 10:55:00 EDT, Tablet, [facility], 1 tablet By Mouth Daily, 158.5, cm, 04/09/19 15:02:00 EST, Height, 84, kg, 10/05/18 2:07:00 EDT, Dry Weight Start Date: 06/03/19 Status: OrderedVitamin C 500 mg oral tablet 1 tablet = 500 mg, By Mouth, Daily, # 90 tablet, 0 Refills, Maintenance, 10/14/19 14:32:00 EDT, Tablet, [facility], 158.5, cm, 08/27/19 12:39:00 EDT, [...] 81, WNL, 01/02/13.2skin test pos: mold, trees, [id number] Renae Wrliuosnfw7lahauce pantozapole,5[facility] Social History Social History Type Response Smoking Status Former smoker; Tobacco user in household: No; Type: Cigarettes; Tobacco use times per day: UP TO 3 PPD; Stopped at age: 52; entered on: 04/14/14 Sex
--- OUTSIDE RECORDS SUMMARY | 2022-03-26 02:44 | XMS_ITS | Continuity of Care Document ---
:1960 Author Organization [facility] Address [address] [place] [address]- Care Team Providers Name Role Phone Jomar RUBALCAVA, Amilcar Primary Care Physician Encounter [facility] Date(s): 06/17/19 - 06/24/19 [facility] [address] [place] [address]- [place] Encounter Diagnosis COPD - Chronic obstructive pulmonary disease (Discharge Diagnosis) - 06/17/19 Seasonal allergies (Discharge Diagnosis) - 06/17/19 Asthma (Discharge Diagnosis) - 06/17/19 Attending Physician: [employer], Crystal Allergies, Adverse Reactions, Alerts Substance Reaction Severity [...] Given P atient Refuses 1Result Comment: [12/05/2017] [facility]#[id number] Comment: [11/23/2016] [facility] # [id number] Comment: [12/11/2013] vis [id number] Comment: [11/23/2016] [facility] # [id number] Comment: [04/09/2014] pt stated that she was [...] 02/13/2014:55:00 EST, Inhaler, Route to Pharmacy Electronically, [id number], [facility], 154.94, cm, 02/07/19 11:53:00 EST, He... [...] 0 Refills, Maintenance, 02/26/19 10:39:00 EST, Capsule, [facility], 1 capsule By Mouth Daily, 154.94, [...] tablet, Refills 0, Tot. Refills 0, Maintenance, 05/16/19 16:44:00 EDT, Route to Pharmacy Electronically, [facility], 158.5, cm, 04/09/19 15:02:00 EST, Height, 84, kg, 10/05/18 2:07:00 EDT, Dry Weight Start Date: 05/16/19 Stop Date: 08/14/19 Status: OrderedFish Oil 1000 mg oral capsule [...] 03/27/19 16:29:00 EST, Route to Pharmacy Electronically, [facility], 158.5, cm, 03/18/19 11:38:00 EST, Height, [...] 02/26/19 10:41:00 EST, Route to Pharmacy Electronically, [facility], 154.94, cm, 02/26/19 10:16:00 EST, Hei... [...] 04/27/19 11:24:00 EDT, Route to Pharmacy Electronically, [facility], 158.5, cm, 04/09/19 15:02:00 EST, [...] 6 Refills, Maintenance, 02/28/2010:35:00 EST, ER Tablet, [facility], 158.5, cm, 02/27/19 13:31:00 EST, [...] 06/18/18 13:37:18 EDT, Route to Pharmacy Electronically, [id number], [facility] Start Date: 06/18/18 Status: OrderedOrthopedic shoes [...] Maintenance, 08/22/16 14:18:07, Route to Pharmacy Electronically, [id number], [facility] Start Date: 08/22/16 Stop Date: 08/17/17 [...] 07/23/18 13:46:52 EDT, Route to Pharmacy Electronically, [id number], [facility] Start Date: 07/23/18 Status: OrderedSpiriva Respimat 1.25 mcg/inh inhalation aerosol 2 puffs, Inhalation, Daily, # 4 Gm, 0 Refills, Maintenance, 12/13/18 14:08:47 EDT, Aerosol Start Date: 12/13/18 Status: OrderedSUMAtriptan 100 mg oral tablet 1 tablet = 100 mg, By Mouth, Daily, PRN for migraine headache, may repeat dose once in 2 hours. Max dose of 2 tabs, # 9 tablet, 0 Refills, Acute 07/21/19 12:45:00 EDT, 06/20/19 12:43:00 EDT, Tablet, [facility], 158.5, cm, 06/18/19 13:31:00 EDT,... Start Date: 06/20/19 Stop Date: 07/21/19 Status: OrderedTEGretol 200 mg oral tablet See [...] daily, # 50 tablet, 0 Refills, Maintenance, 05/26/19 14:13:00 EDT, Tablet, [facility], 158.5, cm, 04/09/19 15:02:00 EST,Height, 84, kg, 10/05/18 2:07:00 EDT, Dry Weight Start Date: 05/26/19 Status: OrderedVitamin B Complex with Folic Acid oral tablet 1 tablet, By Mouth, Daily, # 30 tablet, 11 Refills, Maintenance, 08/23/17 17:31:01 EDT, Tablet, 1 tablet By Mouth Daily,x30 days Start Date: 08/23/17 Stop Date: 08/18/18 Status: OrderedVitamin B Complex with Folic Acid oral tablet 1 tablet, By Mouth, Daily, # 90 tablet, 3 Refills, Maintenance, 06/03/19 10:55:00 EDT, Tablet, [facility], 1 tablet By Mouth Daily, 158.5, cm, 04/09/19 15:02:00 EST, Height, 84, kg, 10/05/18 2:07:00 EDT, Dry Weight Start Date: 06/03/19 Status: OrderedVitamin C 500 mg oral tablet 1 tablet = 500 mg, By Mouth, Daily, # 90 tablet, 0 Refills, Maintenance, 06/20/19 8:43:00 EDT, Tablet, [facility], 158.5, cm, 06/18/19 13:31:00 EDT, Height, [...] 81, WNL, 01/02/13.2skin test pos: mold, trees, reift7Wk Renae Ukolrvcsst3bzjkkho pantozapole,5[facility] Diagnosis Diagnosis Type Effective Dates Health Clinical Infor [facility] Status Service Asthma Discharge 06/17/19 Diagnosis Seasonal allergies Discharge 06/17/19 Diagnosis COPD - Chronic Discharge 06/17/19 obstructive Diagnosis pulmonary disease Social History Social History Type Response Smoking Status Former smoker; Tobacco user in household: No; Type: Cigarettes; Tobacco use times per day: UP TO 3 PPD; Stopped at age: 52; entered on: 04/14/14 Sex
--- OUTSIDE RECORDS SUMMARY | 2022-03-26 02:44 | XMS_ITS | Continuity of Care Document ---
:1960 Author Organization [facility] Address [address] [place] [address]- Care Team Providers Name Role Phone Jomar RUBALCAVA, Amilcar Primary Care Physician [facility] Date(s): 09/01/19 - 10/01/19 [facility] [address] [place] [address]- [facility] Allergies, Adverse Reactions, Alerts Substance Reaction Severity [...] Given P atient Refuses 1Result Comment: [12/05/2017] [facility]#[id number] Comment: [11/23/2016] [facility] # [id number] Comment: [12/11/2013] vis [id number] Comment: [11/23/2016] [facility] # [id number] Comment: [04/09/2014] pt stated that she was [...] 02/13/2014:55:00 EST, Inhaler, Route to Pharmacy Electronically, [id number], [facility], 154.94, cm, 02/07/19 11:53:00 EST, [...] 08/19/19 8:20:00 EDT, Route to Pharmacy Electronically, [facility], 158.5, cm, 08/04/19 16:24:00EDT, Height, [...] 1 Refills, Maintenance, 09/02/19 13:49:00 EDT, Tablet, [facility] 6 Refills, Maintenance, 02/28/2010:35:00 EST, ER Tablet, [facility], 158.5, cm, 02/27/19 13:31:00 EST, Height, [...] 06/18/18 13:37:18 EDT, Route to Pharmacy Electronically, [id number], [facility] Start Date: 06/18/18 Status: OrderedOrthopedic shoes [...] Maintenance, 08/22/16 14:18:07, Route to Pharmacy Electronically, [id number], [facility] Start Date: 08/22/16 Stop Date: 08/17/17 [...] 07/23/18 13:46:52 EDT, Route to Pharmacy Electronically, [id number], [facility] Start Date: 07/23/18 Status: OrderedSpiriva Respimat [...] 0 Refills, Maintenance, 07/30/19 11:47:00 EDT, Tablet, [facility], 158.5, cm, 07/29/19 10:33:00 EDT,Height, 84, [...] 3 Refills, Maintenance, 06/03/19 10:55:00 EDT, Tablet, [facility], 1 tablet By Mouth Daily, 158.5, cm, 04/09/19 15:02:00 EST, Height, 84, kg, 10/05/18 2:07:00 EDT, Dry Weight Start Date: 06/03/19 Status: OrderedVitamin C 500 mg oral tablet 1 tablet = 500 mg, By Mouth, Daily, # 90 tablet, 0 Refills, Maintenance, 06/20/19 8:43:00 EDT, Tablet, [facility], 158.5, cm, 06/18/19 13:31:00 EDT, Height, [...] 81, WNL, 01/02/13.2skin test pos: mold, trees, [id number] Renae Hjbwuhywas9fyylhoi pantozapole,5[facility] audiology Social History Social History Type Response Smoking Status Former smoker; Tobacco user in household: No; Type: Cigarettes; Tobacco use times per day: UP TO 3 PPD; Stopped at age: 52; entered on: 04/14/14 Sex
--- OUTSIDE RECORDS SUMMARY | 2022-03-26 02:44 | XMS_ITS | Continuity of Care Document ---
:1960 Author Organization [facility] nter Address [address] [place] [address]- Care Team Providers Name Role Phone Prashant COMMUNICATIONS WRITER, Arabella Gomez Primary Care Physician En[place] [facility] [place] Date(s): 06/18/20 - 06/18/[address] [address]- Discharge Disposition: A-D/C Home Attending Physician: Dion Noyola MD Admitting Physician: Dion Noyola MD Referring Physician: Not on Staff, Referring MD [...] Not Given P atient Refuses 1Result Comment: [facility]:[id number] Comment: [12/05/2017] [facility]#[id number] Result Comment: [11/23/2016] [facility] # [id number] Comment: [12/11/2013] vis [email or web address] Comment: [11/23/2016] [facility] # [id number] Comment: [04/09/2014] pt stated that she was [...] 02/13/2014:55:00 EST, Inhaler, Route to Pharmacy Electronically, [id number], [facility], 154.94, cm, 02/07/19 11:53:00 EST, He... [...] 3 Refills, Maintenance, 07/10/19 13:08:00 EDT, Tablet, [facility], 158.5, cm, 07/01/19 12:34:00 EDT, Height, [...] 0 Refills, Maintenance, 06/17/20 9:47:00 EDT, Capsule, [facility], 1 capsule By Mouth Daily, 156, [...] Refills, Soft Stop, 10/02/19 12:24:00 EDT, Tablet, [facility], 158.5, cm, 08/27/19 12:39:00 EDT, Height, 84, kg, 10/05/18 2:07:00 EDT, Dry Weight Start Date: 10/02/19 Status: OrderedDilaudid Inj 1 mg, Injection, IV Push Slowly, Every 15 minutes for 3 doses/times, PRN for Pain , Moderate, and SBP greater than 100, STAT, 06/18/20 1:34:00 EDT, Stop date Limited # of times Start Date: 06/18/20 Stop Date: 06/18/20 Status: Discontinuedepinephrine 0.3 mg injectable solution 0 Refills, Maintenance, 12/13/18 14:05:43 EDT Start Date: 12/13/18 Status: OrderedEstrace 1 mg oral tablet 1 mg, 1, tablet, By Mouth, Daily, # 90 tablet, Refills 1, Tot. Refills 1, Maintenance, 11/12/19 16:44:00 EDT, Route to Pharmacy Electronically, [facility], 158.5, cm, 08/27/19 12:39:00 EDT, Height, 84, kg, 10/05/18 2:07:00 EDT, Dry Weight Start Date: 11/12/19 Stop Date: 05/10/20 Status: OrderedFish Oil 1000 mg oral capsule 1 capsule = 1,000 mg, By Mouth, Daily, # 90 capsule, 3 Refills, Maintenance, 02/26/19 10:39:00 EST, Capsule, [facility], 154.94, cm, 02/26/19 10:16:00 EST, Height, [...] 0 Refills, Maintenance, 01/21/20 8:28:00 EST, Tablet, [facility], Partial fill upon patient request if [...] 1 Refills, Maintenance, 01/12/20 9:22:00 EST, Tablet, [facility], 158.5, cm, 01/07/20 15:56:00 EST, Height, 84, kg, 08... Start Date: 01/12/20 Status: OrderedImitrex 100 mg oral tablet 1 tablet = 100 mg, By Mouth, Daily, PRN for migraine headache, may repeat dose after 2 hours up to amaximum of 2, # 9 tablet, 1 Refills, Maintenance, 10/14/19 15:06:00 EDT, Tablet, [facility], 158.5, cm, 08/27/19 12:39:00 EDT, Height, [...] 11/06/19 10:32:00 EDT, Route to Pharmacy Electronically, [facility], 158.5, cm, 11/04/19 8:30:00 EDT, Height,84, [...] 5 Refills, Maintenance, 04/09/2111:50:00 EST, ER Tablet, [facility], 156, cm, 01/22/20 18:13:00 EST, Height, 85, kg, 01/22/20 18:13:00 EST, Dry Weight Start Date: 04/09/20 Status: Orderedmontelukast 10 mg oral tablet See Instructions, # 90 tablet, Refills 1 Tot. Refills 1, TAKE ONE (1) TABLET BY MOUTH ONCE DAILY IN THE EVENING., [facility] Start Date: 10/31/18 Status: Orderedmultivitamin Vitamin B Complex oral capsule 1 capsule, By Mouth, Daily, # 90 capsule, 0 Refills, Maintenance, 06/17/20 9:47:00 EDT, Capsule, [facility], Partial fill upon patient request if [...] 06/18/18 13:37:18 EDT, Route to Pharmacy Electronically, [id number], [facility] Start Date: 06/18/18 Status: OrderedOrthopedic shoes [...] Maintenance, 08/22/16 14:18:07, Route to Pharmacy Electronically, [id number], [facility] Start Date: 08/22/16 Stop Date: 08/17/17 [...] 1 Refills, Maintenance, 12/30/19 11:05:00 EST, Tablet, [facility], 158.5, cm, 12/10/19 14:54:00 EDT, Height, 84, kg, 10/05/18 2:07:00 EDT, Dry Weight Start Date: 12/30/19 Status: OrderedVitamin B Complex with Folic Acid oral tablet 1 tablet, By Mouth, Daily, # 90 tablet, 3 Refills, Maintenance, 06/03/19 10:55:00 EDT, Tablet, [facility], 1 tablet By Mouth Daily, 158.5, cm, 04/09/19 15:02:00 EST, Height, 84, kg, 10/05/18 2:07:00 EDT, Dry Weight Start Date: 06/03/19 Status: OrderedVitamin C 500 mg oral tablet 1 tablet = 500 mg, By Mouth, Daily, # 90 tablet, 0 Refills, Maintenance, 01/12/20 14:32:00 EST, Tablet, [facility], 158.5, cm, 01/07/20 15:56:00 EST, Height, 84, kg, 10/05/18 2:07:00 EDT, Dry Weight Start Date: 01/12/20 Stop Date: 04/11/20 Status: OrderedVoltaren 1% topical gel 1 application, Topically, 4 times a day, PRN for pain, # 100 Gm, 0 Refills, Maintenance, 01/07/20 16:13:00 EST, Gel, [facility], Partial fill upon patient request, 1 [...] 81, WNL, 01/02/13.2skin test pos: mold, trees, ofejk5Wa Renae Drkfefvsrm9rksjdsg pantozapole,5[facility] audiology Vital Signs Most recent to oldest 1 2 3 [Reference Range]: Height 155 cm (06/18/20 12:35 AM) Weight 80 kg (06/18/20 12:35 AM) Oxygen Saturation [94-100 %] 97 % 98 % (06/18/20 4:39 AM) (06/18/20 12:35 AM) Pulse Rate [55-90 bpm] 67 bpm 64 bpm (06/18/20 4:39 AM) (06/18/20 12:35 AM) Blood Pressure [90-138/55-84 mm 149/77 mm Hg 128/50 mm Hg Hg] *H* (06/18/20 12:35 AM) (06/18/20 4:39 AM) Respiratory Rate [16-30 br/min] 18 br/min 18 br/min 18 br/min (06/18/20 4:39 AM) (06/18/20 1:40 AM) (06/18/20 12:35 AM) Temperature [96.8-100.4 DegF] 98.3 DegF 97.6 DegF (06/18/20 4:39 AM) (06/18/20 12:35 AM) Mode of Delivery (Oxygen) Room air Room air (06/18/20 4:39 AM) (06/18/20 12:35 AM) Temperature Route Oral Oral (06/18/20 4:39 AM) (06/18/20 12:35 AM) Dry Weight 80 kg (06/18/20 12:35 AM) Social History Social History Type Response Smoking Status Former smoker; Tobacco user in household: No; Type: Cigarettes; Tobacco use times per day: UP TO 3 PPD; Stopped at age: 52; entered on: 04/14/14 Sex
--- OUTSIDE RECORDS SUMMARY | 2022-03-26 02:44 | XMS_ITS | Continuity of Care Document ---
:1960 Author Organization [facility] Address [address] [place] [address]- Care Team Providers Name Role Phone Jomar RUBALCAVA, Amilcar Primary Care Physician [place] [facility] [place]/20 [facility] [address] [place] [address]- Allergies, Adverse Reactions, Alerts Substance Reaction Severity [...] Given P atient Refuses 1Result Comment: [facility]:[id number] Comment: [12/05/2017] [facility]#[phone] Result Comment: [11/23/2016] [facility] # [phone] Comment: [12/11/2013] vis [id number] Comment: [11/23/2016] [facility] # [phone] Comment: [04/09/2014] pt stated that she was [...] 02/13/2014:55:00 EST, Inhaler, Route to Pharmacy Electronically, [id number], [facility], 154.94, cm, 02/07/19 11:53:00 EST, [...] Date: 01/10/18 Status: OrderedCentury Women's Daily Multivitamin [place] Women's Daily Multivitamin, 1, tablet, By Mouth, [...] 3 Refills, Maintenance, 07/10/19 13:08:00 EDT, Tablet, [facility], 158.5, cm, 07/01/19 12:34:00 EDT, [...] 0 Refills, Maintenance, 12/19/19 14:27:00 EST, Capsule, [facility], 1 capsule By Mouth Daily, [...] Refills, Soft Stop, 10/02/19 12:24:00 EDT, Tablet, [facility], 158.5, cm, 08/27/19 12:39:00 EDT, Height, 84, kg, 10/05/18 2:07:00 EDT, Dry Weight Start Date: 10/02/19 Status: Orderedepinephrine 0.3 mg injectable solution 0 Refills, Maintenance, 12/13/18 14:05:43 EDT Start Date: 12/13/18 Status: OrderedEstrace 1 mg oral tablet 1 mg, 1, tablet, By Mouth, Daily, # 90 tablet, Refills 1, Tot. Refills 1, Maintenance, 11/12/19 16:44:00 EDT, Route to Pharmacy Electronically, [facility], 158.5, cm, 08/27/19 12:39:00 EDT, Height, 84, kg, 10/05/18 2:07:00 EDT, Dry Weight Start Date: 11/12/19 Stop Date: 05/10/20 Status: OrderedFish Oil 1000 mg oral capsule 1 capsule = 1,000 mg, By Mouth, Daily, # 90 capsule, 3 Refills, Maintenance, 02/26/19 10:39:00 EST, Capsule, [facility], 154.94, cm, 02/26/19 10:16:00 EST, [...] 0 Refills, Maintenance, 01/21/20 8:28:00 EST, Tablet, [facility], Partial fill upon patient [...] 1 Refills, Maintenance, 01/12/20 9:22:00 EST, Tablet, [facility], 158.5, cm, 01/07/20 15:56:00 EST, Height, 84, kg, 08... Start Date: 01/12/20 Status: OrderedImitrex 100 mg oral tablet 1 tablet = 100 mg, By Mouth, Daily, PRN for migraine headache, may repeat dose after 2 hours up to amaximum of 2, # 9 tablet, 1 Refills, Maintenance, 10/14/19 15:06:00 EDT, Tablet, [facility], 158.5, cm, 08/27/19 12:39:00 EDT, [...] 11/06/19 10:32:00 EDT, Route to Pharmacy Electronically, [facility], 158.5, cm, 11/04/19 8:30:00 EDT, [...] 5 Refills, Maintenance, 10/17/2011:57:00 EDT, ER Tablet, [facility], 158.5, cm, 08/27/19 12:39:00 EDT, Height, 84, kg, 10/05/18 2:07:00 EDT, Dry Weight Start Date: 10/17/19 Status: Orderedmontelukast 10 mg oral tablet See Instructions, # 90 tablet, Refills 1 Tot. Refills 1, TAKE ONE (1) TABLET BY MOUTH ONCE DAILY IN THE EVENING., [facility] Start Date: 10/31/18 Status: OrderedOne [...] 06/18/18 13:37:18 EDT, Route to Pharmacy Electronically, [id number], [facility] Start Date: 06/18/18 Status: OrderedOrthopedic [...] Maintenance, 08/22/16 14:18:07, Route to Pharmacy Electronically, [id number], [facility] Start Date: 08/22/16 Stop Date: [...] 1 Refills, Maintenance, 12/30/19 11:05:00 EST, Tablet, [facility], 158.5, cm, 12/10/19 14:54:00 EDT, Height, 84, kg, 10/05/18 2:07:00 EDT, Dry Weight Start Date: 12/30/19 Status: OrderedVitamin B Complex with Folic Acid oral tablet 1 tablet, By Mouth, Daily, # 90 tablet, 3 Refills, Maintenance, 06/03/19 10:55:00 EDT, Tablet, [facility], 1 tablet By Mouth Daily, 158.5, cm, 04/09/19 15:02:00 EST, Height, 84, kg, 10/05/18 2:07:00 EDT, Dry Weight Start Date: 06/03/19 Status: OrderedVitamin C 500 mg oral tablet 1 tablet = 500 mg, By Mouth, Daily, # 90 tablet, 0 Refills, Maintenance, 01/12/20 14:32:00 EST, Tablet, [facility], 158.5, cm, 01/07/20 15:56:00 EST, Height, 84, kg, 10/05/18 2:07:00 EDT, Dry Weight Start Date: 01/12/20 Stop Date: 04/11/20 Status: OrderedVoltaren 1% topical gel 1 application, Topically, 4 times a day, PRN for pain, # 100 Gm, 0 Refills, Maintenance, 01/07/20 16:13:00 EST, Gel, [facility], Partial fill upon patient request, 1 [...] 81, WNL, 01/02/13.2skin test pos: mold, trees, [id number] Renae Xtjmkerolb2ckadszr pantozapole,[facility] Social History Social History Type Response Smoking Status Former smoker; Tobacco user in household: No; Type: Cigarettes; Tobacco use times per day: UP TO 3 PPD; Stopped at age: 52; entered on: 04/14/14 Sex
--- OUTSIDE RECORDS SUMMARY | 2022-03-26 02:44 | XMS_ITS | Continuity of Care Document ---
:1960 Author Organization [facility] Address [address] [place] [address]- Care Team Providers Name Role Phone Amilcar Hadley MD Primary Care Physician Encounter [facility] [place] Date(s): 07/23/19 - 07/30/19 [facility] [address] [place] [address]- [facility] Encounter Diagnosis Hospital discharge follow-up (Discharge Diagnosis) - 07/23/19 Attending Physician: Amilcar Hadley MD Allergies, Adverse [...] Refuses 1Result Comment: [12/05/2017] [facility]#[phone] Comment: [11/23/2016] [facility] # [id number] Comment: [12/11/2013] vis [id number] Comment: [11/23/2016] [facility] # [phone] Comment: [04/09/2014] pt stated that she was [...] 02/13/2014:55:00 EST, Inhaler, Route to Pharmacy Electronically, [id number], [facility], 154.94, cm, 02/07/19 11:53:00 EST, [...] 3 Refills, Maintenance, 07/10/19 13:08:00 EDT, Tablet, [facility], 158.5, cm, 07/01/19 12:34:00 EDT, Height, [...] 0 Refills, Maintenance, 02/26/19 10:39:00 EST, Capsule, [facility], 1 capsule By Mouth Daily, 154.94, [...] Refills, Maintenance, 07/29/19 15:59:00 EDT, EC Tablet, [facility], 158.5, cm, 07/29/19 10:33:00 EDT, Height, 84, kg, 192:07:00 EDT, Dry Weight Start Date: 07/29/19 Stop Date: 08/12/19 Status: Orderedepinephrine 0.3 mg injectable solution 0 Refills, Maintenance, 12/13/18 14:05:43 EDT Start Date: 12/13/18 Status: OrderedEstrace 1 mg oral tablet 1 mg, 1, tablet, By Mouth, Daily, # 90 tablet, Refills 0, Tot. Refills 0, Maintenance, 05/16/19 16:44:00 EDT, Route to Pharmacy Electronically, [facility], 158.5, cm, 04/09/19 15:02:00 EST, Height, 84, kg, 10/05/18 2:07:00 EDT, Dry Weight Start Date: 05/16/19 Stop Date: 08/14/19 Status: OrderedFish Oil 1000 mg oral capsule 1 capsule = 1,000 mg, By Mouth, Daily, # 90 capsule, 3 Refills, Maintenance, 02/26/19 10:39:00 EST, Capsule, [facility], 154.94, cm, 02/26/19 10:16:00 EST, Height, [...] 03/27/19 16:29:00 EST, Route to Pharmacy Electronically, [facility], 158.5, cm, 03/18/19 11:38:00 EST, Height, [...] 02/26/19 10:41:00 EST, Route to Pharmacy Electronically, [facility], 154.94, cm, 02/26/19 10:16:00 EST, Hei... Start Date: 02/26/19 Status: Orderedlactase 9000 u oral tablet 1 [...] 04/27/19 11:24:00 EDT, Route to Pharmacy Electronically, [facility], 158.5, cm, 04/09/19 15:02:00 EST, Height, [...] 6 Refills, Maintenance, 02/28/2010:35:00 EST, ER Tablet, [facility], 158.5, cm, 02/27/19 13:31:00 EST, Height, 84, kg, 10/05/18 2:07:00 EDT, Dry Weight Start Date: 02/28/19 Stop Date: 09/26/19 Status: Orderedmontelukast 10 mg oral tablet See Instructions, # 90 tablet, Refills 1 Tot. Refills 1, TAKE ONE (1) TABLET BY MOUTH ONCE DAILY IN THE EVENING., [facility] Start Date: 10/31/18 Status: OrderedOne Touch [...] 06/18/18 13:37:18 EDT, Route to Pharmacy Electronically, [id number], [facility] Start Date: 06/18/18 Status: OrderedOrthopedic shoes [...] Maintenance, 08/22/16 14:18:07, Route to Pharmacy Electronically, [id number], [facility] Start Date: 08/22/16 Stop Date: 08/17/17 [...] 07/23/18 13:46:52 EDT, Route to Pharmacy Electronically, [id number], [facility] Start Date: 07/23/18 Status: OrderedSpiriva Respimat [...] 0 Refills, Maintenance, 07/30/19 11:47:00 EDT, Tablet, [facility], 158.5, cm, 07/29/19 10:33:00 EDT,Height, 84, [...] 3 Refills, Maintenance, 06/03/19 10:55:00 EDT, Tablet, [facility], 1 tablet By Mouth Daily, 158.5, cm, 04/09/19 15:02:00 EST, Height, 84, kg, 10/05/18 2:07:00 EDT, Dry Weight Start Date: 06/03/19 Status: OrderedVitamin C 500 mg oral tablet 1 tablet = 500 mg, By Mouth, Daily, # 90 tablet, 0 Refills, Maintenance, 06/20/19 8:43:00 EDT, Tablet, [facility], 158.5, cm, 06/18/19 13:31:00 EDT, Height, [...] 81, WNL, 01/02/13.2skin test pos: mold, trees, [id number] Renae Jdsbxarzww1xtonhvz pantozapole,5[facility] Diagnosis Diagnosis Type Effective Dates Health Status Clinical In formant Service Hospital Discharge 07/23/19 discharge Diagnosis follow-up Vital Signs Most recent to oldest [Reference Range]: 1 Height 158.5 cm (07/23/19 2:14 PM) Social History Social History Type Response Smoking Status Former smoker; Tobacco user in household: No; Type: Cigarettes; Tobacco use times per day: UP TO 3 PPD; Stopped at age: 52; entered on: 04/14/14 Sex
--- OUTSIDE RECORDS SUMMARY | 2022-03-26 02:44 | XMS_ITS | Continuity of Care Document ---
:1960 Author Organization [facility] Address [address] [place] [address]- Care Team Providers Name Role Phone Jomar RUBALCAVA, Amilcar Primary Care Physician Encounter [facility] Date(s): 09/17/19 - 10/17/19 [facility] [address] [place] [address]- [facility] Allergies, Adverse Reactions, Alerts Substance Reaction Severity [...] Given P atient Refuses 1Result Comment: [12/05/2017] [facility]#[phone] Comment: [11/23/2016] [facility] # [id number] Comment: [12/11/2013] vis [id number] Comment: [11/23/2016] [facility] # [id number] Comment: [04/09/2014] pt stated that she was [...] 02/13/2014:55:00 EST, Inhaler, Route to Pharmacy Electronically, [id number], [facility], 154.94, cm, 02/07/19 11:53:00 EST, He... [...] 3 Refills, Maintenance, 07/10/19 13:08:00 EDT, Tablet, [facility], 158.5, cm, 07/01/19 [...] 0 Refills, Maintenance, 08/28/19 11:01:00 EDT, Capsule, [facility], 1 capsule By Mouth Daily, [...] Refills, Maintenance, 07/29/19 15:59:00 EDT, EC Tablet, [facility], 158.5, cm, 07/29/19 10:33:00 EDT, [...] Refills, Soft Stop, 10/02/19 12:24:00 EDT, Tablet, [facility], 158.5, cm, 08/27/19 [...] 11/12/19 16:44:00 EDT, Route to Pharmacy Electronically, [facility], 158.5, cm, 08/27/19 12:39:00 EDT, Height, 84, kg, 10/05/18 2:07:00 EDT, Dry Weight Start Date: 11/12/19 Stop Date: 05/10/20 Status: OrderedEstrace 1 mg oral tablet 1 mg, 1, tablet, By Mouth, Daily, for 90 days, # 90 tablet, Refills 0, Tot. Refills 0, Hard Stop 11/12/19 16:44:00 EDT, 08/14/19 16:44:00 EDT, Route to Pharmacy Electronically, [facility], 158.5,cm, 07/29/19 10:33:00 EDT, Height, 84, kg, ... Start Date: 08/14/19 Stop Date: 11/12/19 Status: OrderedFish Oil 1000 mg oral capsule 1 capsule = 1,000 mg, By Mouth, Daily, # 90 capsule, 3 Refills, Maintenance, 02/26/19 10:39:00 EST, Capsule, [facility], 154.94, cm, 02/26/19 [...] 08/19/19 8:20:00 EDT, Route to Pharmacy Electronically, [facility], 158.5, cm, 08/04/19 [...] 02/26/19 10:41:00 EST, Route to Pharmacy Electronically, [facility], 154.94, cm, 02/26/19 10:16:00 EST, Hei... Start Date: 02/26/19 Status: OrderedImitrex 100 mg oral tablet 1 tablet = 100 mg, By Mouth, Daily, PRN for migraine headache, may repeat dose after 2 hours up to amaximum of 2, # 9 tablet, 1 Refills, Maintenance, 10/14/19 15:06:00 EDT, Tablet, [facility], 158.5, cm, 08/27/19 [...] 04/27/19 11:24:00 EDT, Route to Pharmacy Electronically, [facility], 158.5, cm, 04/09/19 15:02:00 EST, [...] 5 Refills, Maintenance, 10/17/2011:57:00 EDT, ER Tablet, [facility], 158.5, cm, 08/27/19 12:39:00 EDT, Height, 84, kg, 10/05/18 2:07:00 EDT, Dry Weight Start Date: 10/17/19 Status: Orderedmontelukast 10 mg oral tablet See Instructions, # 90 tablet, Refills 1 Tot. Refills 1, TAKE ONE (1) TABLET BY MOUTH ONCE DAILY IN THE EVENING., [facility] Start Date: 10/31/18 [...] 06/18/18 13:37:18 EDT, Route to Pharmacy Electronically, [id number], [facility] Start Date: 06/18/18 [...] Maintenance, 08/22/16 14:18:07, Route to Pharmacy Electronically, [id number], [facility] Start Date: 08/22/16 Stop Date: 08/17/17 [...] 07/23/18 13:46:52 EDT, Route to Pharmacy Electronically, [id number], [facility] Start Date: 07/23/18 Status: OrderedSpiriva Respimat [...] 0 Refills, Maintenance, 07/30/19 11:47:00 EDT, Tablet, [facility], 158.5, cm, 07/29/19 10:33:00 EDT,Height, 84, [...] 3 Refills, Maintenance, 06/03/19 10:55:00 EDT, Tablet, [facility], 1 tablet By Mouth Daily, 158.5, cm, 04/09/19 15:02:00 EST, Height, 84, kg, 10/05/18 2:07:00 EDT, Dry Weight Start Date: 06/03/19 Status: OrderedVitamin C 500 mg oral tablet 1 tablet = 500 mg, By Mouth, Daily, # 90 tablet, 0 Refills, Maintenance, 10/14/19 14:32:00 EDT, Tablet, [facility], 158.5, cm, 08/27/19 12:39:00 EDT, Height, [...] 81, WNL, 01/02/13.2skin test pos: mold, trees, [id number] Renae [id number] pantozapole,5[place] [facility] audiology Social History Social History Type Response Smoking Status Former smoker; Tobacco user in household: No; Type: Cigarettes; Tobacco use times per day: UP TO 3 PPD; Stopped at age: 52; entered on: 04/14/14 Sex
--- NOTE | 2022-03-26 02:45 | MHC.EDTECH ---
Pt 1x assisted to bedside commode. Pt 1x assisted back to bed . Pt given warm blanket and call mccall in reach
--- OUTSIDE RECORDS SUMMARY | 2022-03-26 02:45 | XMS_ITS | Continuity of Care Document ---
:1960 Author Organization [facility] Address [address] [place] [address]- Care Team Providers Name Role Phone Jomar RUBALCAVA, Amilcar Primary Care Physician [facility] - 10/05/19 [facility] [address] [place] [address]- [facility] Allergies, Adverse Reactions, Alerts Substance Reaction Severity Status propranolol Active nabumetone Active doxycycline hives Active thiazide diuretics hives Active Contrast Dye1 hives Active SEROquel XR unknown Active sulfamethoxazole-trimethoprim hives Ac tive aspirin dyspepsia Active Bactrim hives Active morphine Morphine allergy Active 1? Rash [...] Given P atient Refuses 1Result Comment: [12/05/2017] [facility]#[id number] Comment: [11/23/2016] [facility] # [id number] Comment: [12/11/2013] vis [id number] Comment: [11/23/2016] [facility] # [id number] Comment: [04/09/2014] pt stated that she was [...] 02/13/2014:55:00 EST, Inhaler, Route to Pharmacy Electronically, [id number], [facility], 154.94, cm, 02/07/19 11:53:00 EST, He... Start Date: 02/13/19 Status: OrderedAlbuterol/Ipratropium 0 Refills, Maintenance Start Date: 07/31/19 Status: OrderedAllegra = 360 mg, By Mouth, 2 times a day, 0 Refills, Maintenance, 01/24/17 10:14:10 Start Date: 01/24/17 Status: OrderedAugmentin 500 mg-125 mg oral tablet 1 tablet, By Mouth, Every 12 hours, for 5 days, # 10 tablet, 0 Refills, Acute 10/07/19 15:35:00 EDT,10/02/19 15:35:00 EDT, Tablet, [facility], 158.5, cm, 08/27/19 12:39:00 EDT, Height, 84, kg, 10/05/18 2:07:00 EDT, Dry Weight Start Date: 10/02/19 Stop Date: 10/07/19 Status: OrderedAuto injector Freestyle lite for lancets Auto injector Freestyle lite for lancets, See Instructions, # 1 units, Refills 0, Tot. Refills 0, Maintenance, E11.9 test blood sugars daily as instructed, 01/10/18 10:17:47 EST, Compound Start Date: 01/10/18 Status: Orderedcholecalciferol 1000 intl units oral tablet 2 tablet = 2,000 International_Units, By Mouth, Daily, # 180 tablet, 3 Refills, Maintenance, 07/10/19 13:08:00 EDT, Tablet, [facility], 158.5, cm, 07/01/19 12:34:00 EDT, Height, [...] 0 Refills, Maintenance, 08/28/19 11:01:00 EDT, Capsule, [facility], 1 capsule By Mouth Daily, 158.5, [...] Refills, Maintenance, 07/29/19 15:59:00 EDT, EC Tablet, [facility], 158.5, cm, 07/29/19 10:33:00 EDT, [...] Refills, Soft Stop, 10/02/19 12:24:00 EDT, Tablet, [facility], 158.5, cm, 08/27/19 12:39:00 EDT, Height, 84, kg, 10/05/18 2:07:00 EDT, Dry Weight Start Date: 10/02/19 Status: Orderedepinephrine 0.3 mg injectable solution 0 Refills, Maintenance, 12/13/18 14:05:43 EDT Start Date: 12/13/18 Status: OrderedEstrace 1 mg oral tablet 1 mg, 1, tablet, By Mouth, Daily, # 90 tablet, Refills 0, Tot. Refills 0, Maintenance, 08/14/19 16:44:00 EDT, Route to Pharmacy Electronically, [facility], 158.5, cm, 07/29/19 10:33:00 EDT, Height, 84, kg, 10/05/18 2:07:00 EDT, Dry Weight Start Date: 08/14/19 Stop Date: 11/12/19 Status: OrderedFish Oil 1000 mg oral capsule 1 capsule = 1,000 mg, By Mouth, Daily, # 90 capsule, 3 Refills, Maintenance, 02/26/19 10:39:00 EST, Capsule, [facility], 154.94, cm, 02/26/19 10:16:00 [...] 08/19/19 8:20:00 EDT, Route to Pharmacy Electronically, [facility], 158.5, cm, 08/04/19 16:24:00EDT, Height, [...] 02/26/19 10:41:00 EST, Route to Pharmacy Electronically, [facility], 154.94, cm, 02/26/19 10:16:00 EST, Hei... Start Date: 02/26/19 Status: OrderedImitrex 100 mg oral tablet 1 tablet = 100 mg, By Mouth, Daily, PRN for migraine headache, may repeat dose after 2 hours up to amaximum of 2, # 9 tablet, 1 Refills, Maintenance, 09/02/19 13:49:00 EDT, Tablet, [facility], 158.5, cm, 08/27/19 12:39:00 [...] 04/27/19 11:24:00 EDT, Route to Pharmacy Electronically, [facility], 158.5, cm, 04/09/19 15:02:00 EST, [...] 6 Refills, Maintenance, 02/28/2010:35:00 EST, ER Tablet, [facility], 158.5, cm, 02/27/19 13:31:00 EST, Height, 84, kg, 10/05/18 2:07:00 EDT, Dry Weight Start Date: 02/28/19 Stop Date: 09/26/19 Status: Orderedmontelukast 10 mg oral tablet See Instructions, # 90 tablet, Refills 1 Tot. Refills 1, TAKE ONE (1) TABLET BY MOUTH ONCE DAILY IN THE EVENING., [facility] Start Date: 10/31/18 Status: OrderedOne Touch [...] 06/18/18 13:37:18 EDT, Route to Pharmacy Electronically, [id number], [facility] Start Date: 06/18/18 Status: [...] Maintenance, 08/22/16 14:18:07, Route to Pharmacy Electronically, [id number], [facility] Start Date: 08/22/16 Stop Date: 08/17/17 [...] 07/23/18 13:46:52 EDT, Route to Pharmacy Electronically, [id number], [facility] Start Date: 07/23/18 Status: OrderedSpiriva Respimat [...] 0 Refills, Maintenance, 07/30/19 11:47:00 EDT, Tablet, [facility], 158.5, cm, 07/29/19 10:33:00 EDT,Height, 84, [...] 3 Refills, Maintenance, 06/03/19 10:55:00 EDT, Tablet, [facility], 1 tablet By Mouth Daily, 158.5, cm, 04/09/19 15:02:00 EST, Height, 84, kg, 10/05/18 2:07:00 EDT, Dry Weight Start Date: 06/03/19 Status: OrderedVitamin C 500 mg oral tablet 1 tablet = 500 mg, By Mouth, Daily, # 90 tablet, 0 Refills, Maintenance, 06/20/19 8:43:00 EDT, Tablet, [facility], 158.5, cm, 06/18/19 13:31:00 EDT, Height, [...] 81, WNL, 01/02/13.2skin test pos: mold, trees, [id number] Renae Jgqcylrmcu1ysgdrcd pantozapole,5[facility] audiology Social History Social History Type Response Smoking Status Former smoker; Tobacco user in household: No; Type: Cigarettes; Tobacco use times per day: UP TO 3 PPD; Stopped at age: 52; entered on: 04/14/14 Sex
--- OUTSIDE RECORDS SUMMARY | 2022-03-26 02:45 | XMS_ITS | Continuity of Care Document ---
:1960 Author Organization [facility] Address [address] [place] [address]- Care Team Providers Name Role Phone Jomar RUBALCAVA, Amilcar Primary Care Physician [facility] Date[facility]): [facility]20 - 02/06/20 [facility] [address] [place], [place] [address] Allergies, Adverse Reactions, Alerts Substance Reaction Severity [...] Not Given P atient Refuses 1Result Comment: [facility]:[phone] Comment: [12/05/2017] [facility]#[phone] Result Comment: [11/23/2016] [facility] # [id number] Comment: [12/11/2013] vis [id number] Comment: [11/23/2016] [facility] # [id number] Comment: [04/09/2014] pt stated that she was [...] 02/13/2014:55:00 EST, Inhaler, Route to Pharmacy Electronically, [id number], [facility], 154.94, cm, 02/07/19 11:53:00 EST, He... [...] Date: 01/10/18 Status: OrderedCentury Women's Daily Multivitamin [place] Women's Daily Multivitamin, 1, tablet, By Mouth, [...] 13:08:00 EDT, Tablet, [facility], 158.5, cm, 07/01/19 12:34:00 EDT, Height, [...] 0 Refills, Maintenance, 12/19/19 14:27:00 EST, Capsule, [facility], 1 capsule By Mouth Daily, 158.5, [...] 12:24:00 EDT, Tablet, [facility], 158.5, cm, 08/27/19 12:39:00 EDT, Height, [...] to Pharmacy Electronically, [facility], 158.5, cm, 08/27/19 12:39:00 EDT, Height, 84, kg, 10/05/18 2:07:00 EDT, Dry Weight Start Date: 11/12/19 Stop Date: 05/10/20 Status: OrderedFish Oil 1000 mg oral capsule 1 capsule = 1,000 mg, By Mouth, Daily, # 90 capsule, 3 Refills, Maintenance, 02/26/19 10:39:00 EST, Capsule, [facility], 154.94, cm, 02/26/19 10:16:00 EST, Height, [...] 0 Refills, Maintenance, 01/21/20 8:28:00 EST, Tablet, [facility], Partial fill upon patient [...] 1 Refills, Maintenance, 01/12/20 9:22:00 EST, Tablet, [facility], 158.5, cm, 01/07/20 15:56:00 EST, Height, 84, kg, 08... Start Date: 01/12/20 Status: OrderedImitrex 100 mg oral tablet 1 tablet = 100 mg, By Mouth, Daily, PRN for migraine headache, may repeat dose after 2 hours up to amaximum of 2, # 9 tablet, 1 Refills, Maintenance, 10/14/19 15:06:00 EDT, Tablet, [facility], 158.5, cm, 08/27/19 12:39:00 EDT, Height, [...] 11/06/19 10:32:00 EDT, Route to Pharmacy Electronically, [facility], 158.5, cm, 11/04/19 8:30:00 EDT, Height,84, [...] EDT, ER Tablet, [facility], 158.5, cm, 08/27/19 12:39:00 EDT, Height, 84, kg, 10/05/18 2:07:00 EDT, Dry Weight Start Date: 10/17/19 Status: Orderedmontelukast 10 mg oral tablet See Instructions, # 90 tablet, Refills 1 Tot. Refills 1, TAKE ONE (1) TABLET BY MOUTH ONCE DAILY IN THE EVENING., [facility] Start Date: 10/31/18 Status: OrderedOne Touch [...] 06/18/18 13:37:18 EDT, Route to Pharmacy Electronically, [id number], [facility] Start Date: 06/18/18 Status: OrderedOrthopedic shoes [...] Maintenance, 08/22/16 14:18:07, Route to Pharmacy Electronically, [id number], [facility] Start Date: 08/22/16 Stop Date: [...] 1 Refills, Maintenance, 12/30/19 11:05:00 EST, Tablet, [facility], 158.5, cm, 12/10/19 14:54:00 EDT, Height, 84, kg, 10/05/18 2:07:00 EDT, Dry Weight Start Date: 12/30/19 Status: OrderedVitamin B Complex with Folic Acid oral tablet 1 tablet, By Mouth, Daily, # 90 tablet, 3 Refills, Maintenance, 06/03/19 10:55:00 EDT, Tablet, [facility], 1 tablet By Mouth Daily, 158.5, cm, 04/09/19 15:02:00 EST, Height, 84, kg, 10/05/18 2:07:00 EDT, Dry Weight Start Date: 06/03/19 Status: OrderedVitamin C 500 mg oral tablet 1 tablet = 500 mg, By Mouth, Daily, # 90 tablet, 0 Refills, Maintenance, 01/12/20 14:32:00 EST, Tablet, [facility], 158.5, cm, 01/07/20 15:56:00 EST, Height, 84, kg, 10/05/18 2:07:00 EDT, Dry Weight Start Date: 01/12/20 Stop Date: 04/11/20 Status: OrderedVoltaren 1% topical gel 1 application, Topically, 4 times a day, PRN for pain, # 100 Gm, 0 Refills, Maintenance, 01/07/20 16:13:00 EST, Gel, [facility], Partial fill upon patient request, 1 [...] 81, WNL, 01/02/13.2skin test pos: mold, trees, [id number] Renae Ytuehmbgys1gzympow pantozapole,5[facility] Social History Social History Type Response Smoking Status Former smoker; Tobacco user in household: No; Type: Cigarettes; Tobacco use times per day: UP TO 3 PPD; Stopped at age: 52; entered on: 04/14/14 Sex
--- OUTSIDE RECORDS SUMMARY | 2022-03-26 02:45 | XMS_ITS | Continuity of Care Document ---
:1960 Author Organization [facility] Address [address], [address] [place] [address]- Care Team Providers Name Role Phone Jomar RUBALCAVA, Amilcar Primary Care Physician Encounter 02/27/19 - 04/03/19 [facility] [address], [address] [place] [address]- [facility] Attending Physician: Cami Guthrie MD Admitting Physician: Cami Guthrie MD Referring Physician: Cami Guthrie MD Allergies, Adverse Reactions, Alerts Substance Reaction [...] Given P atient Refuses 1Result Comment: [12/05/2017] [facility]#[phone] Comment: [11/23/2016] [facility] # [id number] Comment: [12/11/2013] vis [id number] Comment: [11/23/2016] [facility] # [id number] Comment: [04/09/2014] pt stated that she was [...] 02/13/2014:55:00 EST, Inhaler, Route to Pharmacy Electronically, [id number], [facility], 154.94, cm, 02/07/19 11:53:00 EST, [...] 0 Refills, Maintenance, 02/26/19 10:39:00 EST, Capsule, [facility], 1 capsule By Mouth Daily, 154.94, [...] 0 Refills, Maintenance, 02/27/19 13:56:00 EST, Patch, [facility], 158.5, cm, 02/27/19 13:31:00 EST, Height, 84, kg, 10/05/18 2:07:00 EDT, Dry Weight Start Date: 02/27/19 Stop Date: 05/28/19 Status: OrderedFish Oil 1000 mg oral capsule 1 capsule = 1,000 mg, By Mouth, Daily, # 90 capsule, 3 Refills, Maintenance, 02/26/19 10:39:00 EST, Capsule, [facility], 154.94, cm, 02/26/19 10:16:00 EST, Height, [...] 03/27/19 16:29:00 EST, Route to Pharmacy Electronically, [facility], 158.5, cm, 03/18/19 11:38:00 EST, Height, [...] EST, Route to Pharmacy Electronically, [facility], 154.94, cm, 02/26/19 10:16:00 EST, Hei... [...] 02/03/19 16:58:00 EST, Route to Pharmacy Electronically, [facility], 154.94, cm, 12/13/18 13:54:00 EDT, Height, [...] Maintenance, 02/28/2010:35:00 EST, ER Tablet, [facility], 158.5, cm, 02/27/19 13:31:00 EST, Height, 84, kg, 10/05/18 2:07:00 EDT, Dry Weight Start Date: 02/28/19 Stop Date: 8/14/20 Status: Orderedmontelukast 10 mg oral tablet See [...] 06/18/18 13:37:18 EDT, Route to Pharmacy Electronically, [id number], [facility] Start Date: 06/18/18 Status: OrderedOrthopedic shoes [...] Maintenance, 08/22/16 14:18:07, Route to Pharmacy Electronically, [id number], [facility] Start Date: 08/22/16 Stop Date: 08/17/17 [...] 07/23/18 13:46:52 EDT, Route to Pharmacy Electronically, [id number], [facility] Start Date: 07/23/18 Status: OrderedSpiriva Respimat [...] 0 Refills, Maintenance, 02/26/19 10:41:00 EST, Tablet, [facility], 154.94, cm, 02/26/19 10:16:00 EST, Height, 84, kg, 10/05/18 2:07:00 EDT, Dry Weight Start Date: 02/26/19 Status: OrderedVitamin B Complex with Folic Acid oral tablet 1 tablet, By Mouth, Daily, # 90 tablet, 3 Refills, Maintenance, 02/26/19 10:39:00 EST, Tablet, [facility], 1 tablet By Mouth Daily, 154.94, [...] 0 Refills, Maintenance, 03/10/19 8:42:00 EST, Tablet, [facility], 158.5, cm, 02/27/19 13:31:00 EST, Height, [...] 81, WNL, 01/02/13.2skin test pos: mold, trees, [id number] Renae Bmjnujjigt2tihfhfk pantozapole,5[facility] audiology Social History Social History Type Response Smoking Status Former smoker; Tobacco user in household: No; Type: Cigarettes; Tobacco use times per day: UP TO 3 PPD; Stopped at age: 52; entered on: 04/14/14 Sex
--- OUTSIDE RECORDS SUMMARY | 2022-03-26 02:45 | XMS_ITS | Continuity of Care Document ---
:1960 Author Organization [facility] Address [address] [place] [address]- Care Team Providers Name Role Phone Amilcar Hadley MD Primary Care Physician Encounter [facility] Date(s): 05/16/19 - 05/26/19 [facility] [address] [place] [address]- [facility] Attending Physician: Tiffany Denney Admitting Physician: AdmtrTiffany Referring Physician: Admtr, Ar8 [...] Given P atient Refuses 1Result Comment: [12/05/2017] [facility]#[id number] Comment: [11/23/2016] [facility] # [id number] Comment: [12/11/2013] vis [id number] Comment: [11/23/2016] [facility] # [id number] Comment: [04/09/2014] pt stated that she was [...] 02/13/2014:55:00 EST, Inhaler, Route to Pharmacy Electronically, [id number], [facility], 154.94, cm, [...] 0 Refills, Maintenance, 02/26/19 10:39:00 EST, Capsule, [facility], 1 capsule By Mouth Daily, 154.94, [...] 05/16/19 16:44:00 EDT, Route to Pharmacy Electronically, [facility], 158.5, cm, 04/09/19 15:02:00 EST, Height, 84, kg, 10/05/18 2:07:00 EDT, Dry Weight Start Date: 05/16/19 Stop Date: 08/14/19 Status: OrderedFish Oil 1000 mg oral capsule 1 capsule = 1,000 mg, By Mouth, Daily, # 90 capsule, 3 Refills, Maintenance, 02/26/19 10:39:00 EST, Capsule, [facility], 154.94, cm, 02/26/19 10:16:00 EST, Height, [...] 03/27/19 16:29:00 EST, Route to Pharmacy Electronically, [facility], 158.5, cm, 03/18/19 11:38:00 EST, Height, [...] 11:24:00 EDT, Route to Pharmacy Electronically, [facility], 158.5, cm, 04/09/19 15:02:00 EST, Height, [...] 06/18/18 13:37:18 EDT, Route to Pharmacy Electronically, [id number], [facility] Start Date: 06/18/18 Status: OrderedOrthopedic shoes [...] Maintenance, 08/22/16 14:18:07, Route to Pharmacy Electronically, [id number], [facility] Start Date: 08/22/16 Stop Date: 08/17/17 [...] 07/23/18 13:46:52 EDT, Route to Pharmacy Electronically, [id number], [facility] Start Date: 07/23/18 [...] 0 Refills, Maintenance, 05/26/19 14:13:00 EDT, Tablet, [facility], 158.5, cm, 04/09/19 15:02:00 EST,Height, 84, kg, 10/05/18 2:07:00 EDT, Dry Weight Start Date: 05/26/19 Status: OrderedVitamin B Complex with Folic Acid oral tablet 1 tablet, By Mouth, Daily, # 90 tablet, 3 Refills, Maintenance, 02/26/19 10:39:00 EST, Tablet, [facility], 1 tablet By Mouth Daily, 154.94, [...] 0 Refills, Maintenance, 03/10/19 8:42:00 EST, Tablet, [facility], 158.5, cm, 02/27/19 13:31:00 EST, Height, [...] 81, WNL, 01/02/13.2skin test pos: mold, trees, [id number] Renae Xnyyrqdnqr7sichrjs pantozapole,5[facility] audiology Social History Social History Type Response Smoking Status Former smoker; Tobacco user in household: No; Type: Cigarettes; Tobacco use times per day: UP TO 3 PPD; Stopped at age: 52; entered on: 04/14/14 Sex
--- OUTSIDE RECORDS SUMMARY | 2022-03-26 02:45 | XMS_ITS | Continuity of Care Document ---
:1960 Author Organization [facility] Address [address] [place] [address]- Care Team Providers Name Role Phone Jomar RUBALCAVA, Amilcar Primary Care Physician [facility] Date[facility]s): 09/02/19 - 10/02/19 [facility] [address] [place] [address]- [facility] Allergies, Adverse Reactions, Alerts Substance Reaction Severity Status propranolol Active sulfamethoxazole-trimethoprim hives Ac tive aspirin dyspepsia Active morphine Morphine allergy Active nabumetone Active Bactrim hives Active doxycycline hives Active thiazide diuretics hives [...] Given P atient Refuses 1Result Comment: [12/05/2017] [facility]#[id number] Comment: [11/23/2016] [facility] # [id number] Comment: [12/11/2013] vis [id number] Comment: [11/23/2016] [facility] # [id number] Comment: [04/09/2014] pt stated that she was [...] 02/13/2014:55:00 EST, Inhaler, Route to Pharmacy Electronically, [id number], [facility], 154.94, cm, 02/07/19 11:53:00 EST, [...] Acute 10/07/19 15:35:00 EDT,10/02/19 15:35:00 EDT, Tablet, [facility], 158.5, cm, 08/27/19 12:39:00 [...] 3 Refills, Maintenance, 07/10/19 13:08:00 EDT, Tablet, [facility], 158.5, cm, 07/01/19 12:34:00 EDT, Height, [...] 0 Refills, Maintenance, 08/28/19 11:01:00 EDT, Capsule, [facility], 1 capsule By Mouth Daily, 158.5, [...] Refills, Maintenance, 07/29/19 15:59:00 EDT, EC Tablet, [facility], 158.5, cm, 07/29/19 10:33:00 EDT, [...] Refills, Soft Stop, 10/02/19 12:24:00 EDT, Tablet, [facility], 158.5, cm, 08/27/19 12:39:00 EDT, Height, 84, kg, 10/05/18 2:07:00 EDT, Dry Weight Start Date: 10/02/19 Status: Orderedepinephrine 0.3 mg injectable solution 0 Refills, Maintenance, 12/13/18 14:05:43 EDT Start Date: 12/13/18 Status: OrderedEstrace 1 mg oral tablet 1 mg, 1, tablet, By Mouth, Daily, # 90 tablet, Refills 0, Tot. Refills 0, Maintenance, 08/14/19 16:44:00 EDT, Route to Pharmacy Electronically, [facility], 158.5, cm, 07/29/19 10:33:00 EDT, Height, 84, kg, 10/05/18 2:07:00 EDT, Dry Weight Start Date: 08/14/19 Stop Date: 11/12/19 Status: OrderedFish Oil 1000 mg oral capsule 1 capsule = 1,000 mg, By Mouth, Daily, # 90 capsule, 3 Refills, Maintenance, 02/26/19 10:39:00 EST, Capsule, [facility], 154.94, cm, 02/26/19 [...] 08/19/19 8:20:00 EDT, Route to Pharmacy Electronically, [facility], 158.5, cm, 08/04/19 16:24:00EDT, Height, [...] 1 Refills, Maintenance, 09/02/19 13:49:00 EDT, Tablet, [facility], 158.5, cm, 08/27/19 12:39:00 [...] 04/27/19 11:24:00 EDT, Route to Pharmacy Electronically, [facility], 158.5, cm, 04/09/19 15:02:00 EST, [...] BY MOUTH ONCE DAILY IN THE EVENING., [facility] Start Date: 10/31/18 Status: OrderedOne Touch [...] 06/18/18 13:37:18 EDT, Route to Pharmacy Electronically, [id number], [facility] Start Date: 06/18/18 Status: OrderedOrthopedic [...] Maintenance, 08/22/16 14:18:07, Route to Pharmacy Electronically, [id number], [facility] Start Date: 08/22/16 Stop Date: 08/17/17 [...] 07/23/18 13:46:52 EDT, Route to Pharmacy Electronically, [id number], [facility] Start Date: 07/23/18 Status: OrderedSpiriva Respimat [...] 0 Refills, Maintenance, 07/30/19 11:47:00 EDT, Tablet, [facility], 158.5, cm, 07/29/19 10:33:00 EDT,Height, [...] 3 Refills, Maintenance, 06/03/19 10:55:00 EDT, Tablet, [facility], 1 tablet By Mouth Daily, 158.5, cm, 04/09/19 15:02:00 EST, Height, 84, kg, 10/05/18 2:07:00 EDT, Dry Weight Start Date: 06/03/19 Status: OrderedVitamin C 500 mg oral tablet 1 tablet = 500 mg, By Mouth, Daily, # 90 tablet, 0 Refills, Maintenance, 06/20/19 8:43:00 EDT, Tablet, [email or web address], 158.5, cm, 06/18/19 13:31:00 EDT, Height, [...] 81, WNL, 01/02/13.2skin test pos: mold, trees, [id number] Renae [id number] pantozapole,5[facility]iology Social History Social History Type Response Smoking Status Former smoker; Tobacco user in household: No; Type: Cigarettes; Tobacco use times per day: UP TO 3 PPD; Stopped at age: 52; entered on: 04/14/14 Sex
--- OUTSIDE RECORDS SUMMARY | 2022-03-26 02:45 | XMS_ITS | Continuity of Care Document ---
:1960 Author Organization [facility] n[facility] Address [address] [place] [address]- Care Team Providers Name Role Phone Amilcar Hadley MD Primary Care Physician Encounter [facility] [place] Date(s): 01/22/20 - 01/22/[address] [address]- Encounter Diagnosis Chronic right shoulder pain (Final) - 01/22/20 Discharge Disposition: A-D/C Home Attending Physician: Saroj Tenorio MD Admitting Physician: Saroj Tenorio MD Referring Physician: Not on Staff, Referring [...] Not Given P atient Refuses 1Result Comment: [facility]:[phone] Comment: [12/05/2017] [facility]#[phone] Result Comment: [11/23/2016] [facility] # [phone] Comment: [12/11/2013] vis [id number] Comment: [11/23/2016] [facility] # [phone] Comment: [04/09/2014] pt stated that she was [...] 02/13/2014:55:00 EST, Inhaler, Route to Pharmacy Electronically, [id number], [facility], 154.94, cm, 02/07/19 11:53:00 [...] Refills, Maintenance, 07/10/19 13:08:00 EDT, Tablet, [facility], 158.5, cm, 07/01/19 12:34:00 EDT, Height, [...] 0 Refills, Maintenance, 12/19/19 14:27:00 EST, Capsule, [facility], 1 capsule By Mouth Daily, 158.5, [...] 12:24:00 EDT, Tablet, [facility], 158.5, cm, 08/27/19 12:39:00 [...] to Pharmacy Electronically, [facility], 158.5, cm, 08/27/19 12:39:00 EDT, Height, 84, kg, 10/05/18 2:07:00 EDT, Dry Weight Start Date: 11/12/19 Stop Date: 05/10/20 Status: OrderedFish Oil 1000 mg oral capsule 1 capsule = 1,000 mg, By Mouth, Daily, # 90 capsule, 3 Refills, Maintenance, 02/26/19 10:39:00 EST, Capsule, [facility], 154.94, cm, 02/26/19 10:16:00 [...] 0 Refills, Maintenance, 01/21/20 8:28:00 EST, Tablet, [facility], Partial fill upon [...] EDT, Tablet Start Date: 12/13/18 Status: Orderedibuprofen 400 mg oral tablet 800 mg, 2, tablet, By Mouth, Every 4 hours, PRN, with food or milk take 400 mg in the am and again at night, # 120 tablet, Refills 0, Tot. Refills 0, Acute 02/05/20 18:46:00 EST, for fever, 01/22/20 18:45:00 EST, [facility], [facility] Start Date: 01/22/20 Stop Date: 02/05/20 Status: OrderedImitrex 100 mg oral tablet 1 tablet = 100 mg, By Mouth, Daily, PRN for migraine headache, may repeat dose after 2 hours up to amaximum of 2, # 9 tablet, 1 Refills, Maintenance, 01/12/20 9:22:00 EST, Tablet, [facility], 158.5, cm, 01/07/20 15:56:00 EST, Height, 84, kg, 08... Start Date: 01/12/20 Status: OrderedImitrex 100 mg oral tablet 1 tablet = 100 mg, By Mouth, Daily, PRN for migraine headache, may repeat dose after 2 hours up to amaximum of 2, # 9 tablet, 1 Refills, Maintenance, 10/14/19 15:06:00 EDT, Tablet, [facility], 158.5, cm, 08/27/19 12:39:00 [...] to Pharmacy Electronically, [facility], 158.5, cm, 11/04/19 8:30:00 EDT, Height,84, kg, 10/05/18 2:07:00 EDT, Dry Weight Start Date: 11/06/19 Status: Orderedmeclizine 25 mg oral tablet 1 tablet = 25 mg, By Mouth, 3 times a day, PRN for dizziness, # 30 tablet, 0 Refills, Maintenance, 12/13/18 14:05:55 EDT, Tablet Start Date: 12/13/18 Status: OrderedMedrol Dosepak 4 mg oral tablet 1 pack/packet, By Mouth, Daily, for 6 days, as directed on package labeling, # 21 tablet, 0 Refills,Acute 01/28/20 18:45:00 EST, 01/22/20 18:45:00 EST, Tablet, [facility]/pharmacy #[id number], Partial fill upon patient request if the prescription is for a schedul... Start Date: 01/22/20 Stop Date: 01/28/20 Status: Orderedmelatonin 3 mg oral tablet 1 [...] EDT, ER Tablet, [facility], 158.5, cm, 08/27/19 12:39:00 EDT, Height, 84, kg, 10/05/18 2:07:00 EDT, Dry Weight Start Date: 10/17/19 Status: Orderedmontelukast 10 mg oral tablet See Instructions, # 90 tablet, Refills 1 Tot. Refills 1, TAKE ONE (1) TABLET BY MOUTH ONCE DAILY IN THE EVENING., [facility] Start Date: 10/31/18 Status: [...] 06/18/18 13:37:18 EDT, Route to Pharmacy Electronically, [id number], [facility] Start Date: 06/18/18 Status: OrderedOrthopedic shoes [...] Maintenance, 08/22/16 14:18:07, Route to Pharmacy Electronically, [id number], [facility] Start Date: 08/22/16 Stop Date: 08/17/17 [...] 1 Refills, Maintenance, 12/30/19 11:05:00 EST, Tablet, [facility], 158.5, cm, 12/10/19 14:54:00 EDT, Height, 84, kg, 10/05/18 2:07:00 EDT, Dry Weight Start Date: 12/30/19 Status: OrderedVitamin B Complex with Folic Acid oral tablet 1 tablet, By Mouth, Daily, # 90 tablet, 3 Refills, Maintenance, 06/03/19 10:55:00 EDT, Tablet, [facility], 1 tablet By Mouth Daily, 158.5, cm, 04/09/19 15:02:00 EST, Height, 84, kg, 10/05/18 2:07:00 EDT, Dry Weight Start Date: 06/03/19 Status: OrderedVitamin C 500 mg oral tablet 1 tablet = 500 mg, By Mouth, Daily, # 90 tablet, 0 Refills, Maintenance, 01/12/20 14:32:00 EST, Tablet, [facility], 158.5, cm, 01/07/20 15:56:00 EST, Height, 84, kg, 10/05/18 2:07:00 EDT, Dry Weight Start Date: 01/12/20 Stop Date: 04/11/20 Status: OrderedVoltaren 1% topical gel 1 application, Topically, 4 times a day, PRN for pain, # 100 Gm, 0 Refills, Maintenance, 01/07/20 16:13:00 EST, Gel, [facility], Partial fill upon patient request, 1 [...] 81, WNL, 01/02/13.2skin test pos: mold, trees, [id number] Renae Luavdzqtiq3iengoip pantozapole,5HBoston [facility] audiology Vital Signs Most recent to oldest [Reference Range]: 1 Height 156 cm (01/22/20 6:00 PM) Weight 85 kg (01/22/20 6:00 PM) Oxygen Saturation [94-100 %] 96 % (01/22/20 6:00 PM) Pulse Rate [55-90 bpm] 73 bpm (01/22/20 6:00 PM) Blood Pressure [90-138/55-84 mm Hg] 125/76 mm Hg (01/22/20 6:00 PM) Respiratory Rate [16-30 br/min] 16 br/min (01/22/20 6:00 PM) Temperature [96.8-100.4 DegF] 98 DegF (01/22/20 6:00 PM) Mode of Delivery (Oxygen) Room air (01/22/20 6:00 PM) Temperature Route Oral (01/22/20 6:00 PM) Dry Weight 85 kg (01/22/20 6:00 PM) Weight Obtained Via Patient/family stated (01/22/20 6:00 PM) Social History Social History Type Response Smoking Status Former smoker; Tobacco user in household: No; Type: Cigarettes; Tobacco use times per day: UP TO 3 PPD; Stopped at age: 52; entered on: 04/14/14 Sex
--- OUTSIDE RECORDS SUMMARY | 2022-03-26 02:45 | XMS_ITS | Continuity of Care Document ---
:1960 Author Organization [facility] Address [address] [place] [address]- Care Team Providers Name Role Phone Jomar RUBALCAVA, Amilcar Primary Care Physician [place] [facility] [place] 05/15/19 [facility] [address] [place] [address]- [facility] Attending Physician: Tiffany Denney Admitting Physician: Tiffany [...] 1Result Comment: [12/05/2017] [facility]#[phone] Comment: [11/23/2016] [facility] # [phone] Comment: [12/11/2013] vis [id number] Comment: [11/23/2016] [facility] # [phone] Comment: [04/09/2014] pt stated that she was [...] 02/13/2014:55:00 EST, Inhaler, Route to Pharmacy Electronically, [id number], [facility], 154.94, cm, 02/07/19 11:53:00 EST, He... [...] 0 Refills, Maintenance, 02/26/19 10:39:00 EST, Capsule, [facility], 1 capsule By Mouth Daily, 154.94, [...] 0 Refills, Maintenance, 02/27/19 13:56:00 EST, Patch, [facility], 158.5, cm, 02/27/19 13:31:00 EST, Height, 84, kg, 10/05/18 2:07:00 EDT, Dry Weight Start Date: 02/27/19 Stop Date: 05/28/19 Status: OrderedFish Oil 1000 mg oral capsule 1 capsule = 1,000 mg, By Mouth, Daily, # 90 capsule, 3 Refills, Maintenance, 02/26/19 10:39:00 EST, Capsule, [facility], 154.94, cm, 02/26/19 10:16:00 EST, Height, [...] 03/27/19 16:29:00 EST, Route to Pharmacy Electronically, [facility], 158.5, cm, 03/18/19 11:38:00 EST, Height, [...] 02/26/19 10:41:00 EST, Route to Pharmacy Electronically, [facility], 154.94, cm, 02/26/19 10:16:00 [...] 04/27/19 11:24:00 EDT, Route to Pharmacy Electronically, [facility], 158.5, cm, 04/09/19 15:02:00 [...] 6 Refills, Maintenance, 02/28/2010:35:00 EST, ER Tablet, [facility], 158.5, cm, 02/27/19 13:31:00 EST, Height, 84, kg, 10/05/18 2:07:00 EDT, Dry Weight Start Date: 02/28/19 Stop Date: 09/26/19 Status: Orderedmontelukast 10 mg oral tablet See Instructions, # 90 tablet, Refills 1 Tot. Refills 1, TAKE ONE (1) TABLET BY MOUTH ONCE DAILY IN THE EVENING., [facility] Start Date: 10/31/18 Status: OrderedOne Touch [...] 06/18/18 13:37:18 EDT, Route to Pharmacy Electronically, [id number], [facility] Start Date: 06/18/18 Status: OrderedOrthopedic shoes [...] Maintenance, 08/22/16 14:18:07, Route to Pharmacy Electronically, [id number], [facility] Start Date: 08/22/16 Stop Date: 08/17/17 [...] 07/23/18 13:46:52 EDT, Route to Pharmacy Electronically, [id number], [facility] Start Date: 07/23/18 Status: OrderedSpiriva Respimat [...] 0 Refills, Maintenance, 02/26/19 10:41:00 EST, Tablet, [facility], 154.94, cm, 02/26/19 10:16:00 EST, Height, 84, kg, 10/05/18 2:07:00 EDT, Dry Weight Start Date: 02/26/19 Status: OrderedVitamin B Complex with Folic Acid oral tablet 1 tablet, By Mouth, Daily, # 90 tablet, 3 Refills, Maintenance, 02/26/19 10:39:00 EST, Tablet, [facility], 1 tablet By Mouth Daily, 154.94, [...] 0 Refills, Maintenance, 03/10/19 8:42:00 EST, Tablet, [facility], 158.5, cm, 02/27/19 13:31:00 EST, Height, [...] 81, WNL, 01/02/13.2skin test pos: mold, trees, [id number] Renae Hmxspsdebk6drwyxeo pantozapole,5[facility] audiology Social History Social History Type Response Smoking Status Former smoker; Tobacco user in household: No; Type: Cigarettes; Tobacco use times per day: UP TO 3 PPD; Stopped at age: 52; entered on: 04/14/14 Sex
--- OUTSIDE RECORDS SUMMARY | 2022-03-26 02:45 | XMS_ITS | Continuity of Care Document ---
:1960 Author Organization [facility] Address [address] [place] [address]- Care Team Providers Name Role Phone Amilcar Hadley MD Primary Care Physician [place] [facility] [place] 07/[place] - 10/04/19 [facility] [address] [place] [address]- [facility] Attending Physician: Amilcar Hadley MD Allergies, [...] P atient Refuses 1Result Comment: [12/05/2017] [facility]#[phone] Comment: [11/23/2016] [facility] # [id number] Comment: [12/11/2013] vis [id number] Comment: [11/23/2016] [facility] # [phone] Comment: [04/09/2014] pt stated that she was [...] 02/13/2014:55:00 EST, Inhaler, Route to Pharmacy Electronically, [id number], [facility], 154.94, cm, 02/07/19 11:53:00 EST, He... [...] Acute 10/07/19 15:35:00 EDT,10/02/19 15:35:00 EDT, Tablet, [facility], 158.5, cm, 08/27/19 12:39:00 EDT, Height, [...] 3 Refills, Maintenance, 07/10/19 13:08:00 EDT, Tablet, [facility], 158.5, cm, 07/01/19 12:34:00 EDT, Height, [...] 0 Refills, Maintenance, 08/28/19 11:01:00 EDT, Capsule, [facility], 1 capsule By Mouth Daily, 158.5, [...] Maintenance, 07/29/19 15:59:00 EDT, EC Tablet, [facility], 158.5, cm, 07/29/19 10:33:00 EDT, Height, [...] Soft Stop, 10/02/19 12:24:00 EDT, Tablet, [facility], 158.5, cm, 08/27/19 12:39:00 EDT, Height, [...] Electronically, [facility], 158.5, cm, 07/29/19 10:33:00 EDT, Height, [...] 8:20:00 EDT, Route to Pharmacy Electronically, [facility], 158.5, cm, 08/04/19 16:24:00EDT, Height, 84, [...] Refills, Maintenance, 09/02/19 13:49:00 EDT, Tablet, [facility], 158.5, cm, 08/27/19 12:39:00 EDT, Height, [...] MOUTH ONCE DAILY IN THE EVENING., [facility] Start Date: 10/31/18 Status: OrderedOne Touch [...] 06/18/18 13:37:18 EDT, Route to Pharmacy Electronically, [id number], [facility] Start Date: 06/18/18 Status: OrderedOrthopedic shoes [...] Maintenance, 08/22/16 14:18:07, Route to Pharmacy Electronically, [id number], [facility] Start Date: 08/22/16 Stop Date: 08/17/17 [...] 07/23/18 13:46:52 EDT, Route to Pharmacy Electronically, [id number], [facility] Start Date: 07/23/18 Status: OrderedSpiriva Respimat [...] 0 Refills, Maintenance, 07/30/19 11:47:00 EDT, Tablet, [facility], 158.5, cm, 07/29/19 10:33:00 EDT,Height, 84, [...] Refills, Maintenance, 06/03/19 10:55:00 EDT, Tablet, [facility], 1 tablet By Mouth Daily, 158.5, cm, 04/09/19 15:02:00 EST, Height, 84, kg, 10/05/18 2:07:00 EDT, Dry Weight Start Date: 06/03/19 Status: OrderedVitamin C 500 mg oral tablet 1 tablet = 500 mg, By Mouth, Daily, # 90 tablet, 0 Refills, Maintenance, 06/20/19 8:43:00 EDT, Tablet, [facility], 158.5, cm, 06/18/19 13:31:00 EDT, Height, [...] 81, WNL, 01/02/13.2skin test pos: mold, trees, [id number] Renae Tetylwdpof3tuzrvia pantozapole,5HP[facility] audiology Social History Social History Type Response Smoking Status Former smoker; Tobacco user in household: No; Type: Cigarettes; Tobacco use times per day: UP TO 3 PPD; Stopped at age: 52; entered on: 04/14/14 Sex
--- OUTSIDE RECORDS SUMMARY | 2022-03-26 02:45 | XMS_ITS | Continuity of Care Document ---
:1960 Author Organization [facility] Address [address] [place] [address]- Care Team Providers Name Role Phone Amilcar Hadley MD Primary Care Physician Encounter [facility] [place] Date(s): 11/04/19 - 11/11/19 [facility] [address] [place] [address]- [facility] Encounter Diagnosis Vertigo (Discharge Diagnosis) - 11/04/19 Right hip pain (Discharge Diagnosis) - 11/04/19 Attending Physician: Amilcar Hadley MD Allergies, Adverse [...] Comment: [12/05/2017] [facility]#[id number] Comment: [11/23/2016] [facility] # [phone] Comment: [12/11/2013] vis [id number] Comment: [11/23/2016] [facility] # [phone] Comment: [04/09/2014] pt stated that she was [...] 02/13/2014:55:00 EST, Inhaler, Route to Pharmacy Electronically, [id number], [facility], 154.94, cm, 02/07/19 11:53:00 [...] 3 Refills, Maintenance, 07/10/19 13:08:00 EDT, Tablet, [facility], 158.5, cm, 07/01/19 12:34:00 EDT, Height, [...] 0 Refills, Maintenance, 08/28/19 11:01:00 EDT, Capsule, [facility], 1 capsule By Mouth Daily, 158.5, [...] Refills, Soft Stop, 10/02/19 12:24:00 EDT, Tablet, [facility], 158.5, cm, 08/27/19 12:39:00 EDT, Height, 84, kg, 10/05/18 2:07:00 EDT, Dry Weight Start Date: 10/02/19 Status: Orderedepinephrine 0.3 mg injectable solution 0 Refills, Maintenance, 12/13/18 14:05:43 EDT Start Date: 12/13/18 Status: OrderedEstrace 1 mg oral tablet 1 mg, 1, tablet, By Mouth, Daily, # 90 tablet, Refills 1, Tot. Refills 1, Maintenance, 11/12/19 16:44:00 EDT, Route to Pharmacy Electronically, [facility], 158.5, cm, 08/27/19 12:39:00 EDT, Height, 84, kg, 10/05/18 2:07:00 EDT, Dry Weight Start Date: 11/12/19 Stop Date: 05/10/20 Status: OrderedEstrace 1 mg oral tablet 1 mg, 1, tablet, By Mouth, Daily, for 90 days, # 90 tablet, Refills 0, Tot. Refills 0, Hard Stop 11/12/19 16:44:00 EDT, 08/14/19 16:44:00 EDT, Route to Pharmacy Electronically, [facility], 158.5,cm, 07/29/19 10:33:00 EDT, Height, 84, kg, ... Start Date: 08/14/19 Stop Date: 11/12/19 Status: OrderedFish Oil 1000 mg oral capsule 1 capsule = 1,000 mg, By Mouth, Daily, # 90 capsule, 3 Refills, Maintenance, 02/26/19 10:39:00 EST, Capsule, [facility], 154.94, cm, 02/26/19 10:16:00 EST, Height, [...] EDT, Route to Pharmacy Electronically, [facility], 158.5, cm, 08/04/19 16:24:00EDT, Height, 84, [...] 11/06/19 12:00:00 EDT, Route to Pharmacy Electronically, [facility], 158.5, cm, 11/06/19 10:48:00 EDT, [place]... Start Date: 11/06/19 Stop Date: 11/20/19 Status: OrderedImitrex 100 mg oral tablet 1 tablet = 100 mg, By Mouth, Daily, PRN for migraine headache, may repeat dose after 2 hours up to amaximum of 2, # 9 tablet, 1 Refills, Maintenance, 10/14/19 15:06:00 EDT, Tablet, [facility], 158.5, cm, 08/27/19 12:39:00 EDT, Height, [...] 11/06/19 10:32:00 EDT, Route to Pharmacy Electronically, [facility], 158.5, cm, 11/04/19 8:30:00 EDT, Height,84, [...] 5 Refills, Maintenance, 10/17/2011:57:00 EDT, ER Tablet, [facility], 158.5, cm, 08/27/19 12:39:00 EDT, Height, 84, kg, 10/05/18 2:07:00 EDT, Dry Weight Start Date: 10/17/19 Status: Orderedmontelukast 10 mg oral tablet See Instructions, # 90 tablet, Refills 1 Tot. Refills 1, TAKE ONE (1) TABLET BY MOUTH ONCE DAILY IN THE EVENING., [facility] Start Date: 10/31/18 Status: OrderedOne Touch [...] 06/18/18 13:37:18 EDT, Route to Pharmacy Electronically, [id number], [facility] Start Date: 06/18/18 Status: OrderedOrthopedic shoes Orthopedic shoes, See Instructions, # 1 each, Refills 0, Tot. Refills 0, Maintenance, Orthopedic shoes DX osteoarthritis and knee pain, 04/26/17 9:49:36, Compound Start Date: 06/07/16 Status: OrderedOrthotics See Instructions, # 1 pair, Maintenance, Padded insoles with arch supports, 06/01/17 17:15:33 EDT, Compound Start Date: 06/01/17 Status: Orderedpantoprazole 40 mg oral delayed release tablet 40 mg, By Mouth, 2 times a day, # 180 each, Refills 3, Tot. Refills 3, Maintenance, 08/22/16 14:18:07, Route to Pharmacy Electronically, [id number], [facility] Start Date: 08/22/16 Stop Date: 08/17/17 [...] 1 Refills, Maintenance, 11/06/19 11:59:00 EDT, Tablet, [facility], 158.5, cm, 11/06/19 10:48:00 EDT,Height, 84, kg, 10/05/18 2:07:00 EDT, Dry Weight Start Date: 11/06/19 Status: OrderedVitamin B Complex with Folic Acid oral tablet 1 tablet, By Mouth, Daily, # 90 tablet, 3 Refills, Maintenance, 06/03/19 10:55:00 EDT, Tablet, [facility], 1 tablet By Mouth Daily, 158.5, cm, 04/09/19 15:02:00 EST, Height, 84, kg, 10/05/18 2:07:00 EDT, Dry Weight Start Date: 06/03/19 Status: OrderedVitamin C 500 mg oral tablet 1 tablet = 500 mg, By Mouth, Daily, # 90 tablet, 0 Refills, Maintenance, 10/14/19 14:32:00 EDT, Tablet, [facility], 158.5, cm, 08/27/19 12:39:00 EDT, Height, [...] 81, WNL, 01/02/13.2skin test pos: mold, trees, [id number] Renae Uqdctqdomh6dkpacoh pantozapole,5HB[facility] audiology Diagnosis Diagnosis Type Effective Dates Health Status Clinical In formant Service Vertigo Discharge 11/04/19 Diagnosis Right hip pain Discharge 11/04/19 Diagnosis Vital Signs Most recent to oldest [Reference Range]: 1 Height 158.5 cm (11/04/19 8:30 AM) Social History Social History Type Response Smoking Status Former smoker; Tobacco user in household: No; Type: Cigarettes; Tobacco use times per day: UP TO 3 PPD; Stopped at age: 52; entered on: 04/14/14 Sex
--- OUTSIDE RECORDS SUMMARY | 2022-03-26 02:45 | XMS_ITS | Continuity of Care Document ---
:1960 Author Organization [facility] Address [address] [place] [address]- Care Team Providers Name Role Phone Amilcar Hadley MD Primary Care Physician Encounter [facility] Date(s): 05/29/19 - 06/05/19 [facility] [address] [place] [address]- [facility] Attending Physician: Jhonathan RUBALCAVA, Elizabet Sharpe Referring Physician: Leona Ragland MD Allergies, Adverse Reactions, Alerts Substance Reaction [...] P atient Refuses 1Result Comment: [12/05/2017] [facility]#[id number] Comment: [11/23/2016] [facility] # [id number] Comment: [12/11/2013] vis [id number] Comment: [11/23/2016] [facility] # [id number] Comment: [04/09/2014] pt stated that she was [...] 02/13/2014:55:00 EST, Inhaler, Route to Pharmacy Electronically, [id number], [facility], 154.94, cm, 02/07/19 11:53:00 EST, He... [...] 0 Refills, Maintenance, 02/26/19 10:39:00 EST, Capsule, [facility], 1 capsule By Mouth Daily, 154.94, [...] 05/16/19 16:44:00 EDT, Route to Pharmacy Electronically, [facility], 158.5, cm, 04/09/19 15:02:00 EST, Height, 84, kg, 10/05/18 2:07:00 EDT, Dry Weight Start Date: 05/16/19 Stop Date: 08/14/19 Status: OrderedFish Oil 1000 mg oral capsule 1 capsule = 1,000 mg, By Mouth, Daily, # 90 capsule, 3 Refills, Maintenance, 02/26/19 10:39:00 EST, Capsule, [facility], 154.94, cm, 02/26/19 10:16:00 EST, Height, [...] 03/27/19 16:29:00 EST, Route to Pharmacy Electronically, [facility], 158.5, cm, 03/18/19 11:38:00 EST, Height, [...] 02/26/19 10:41:00 EST, Route to Pharmacy Electronically, [facility], 154.94, cm, 02/26/19 10:16:00 EST, Hei... [...] 04/27/19 11:24:00 EDT, Route to Pharmacy Electronically, [facility], 158.5, cm, 04/09/19 15:02:00 EST, Height, [...] 6 Refills, Maintenance, 02/28/2010:35:00 EST, ER Tablet, [facility], 158.5, cm, 02/27/19 13:31:00 EST, Height, [...] 06/18/18 13:37:18 EDT, Route to Pharmacy Electronically, [id number], [facility] Start Date: 06/18/18 Status: OrderedOrthopedic shoes [...] Maintenance, 08/22/16 14:18:07, Route to Pharmacy Electronically, [id number], [facility] Start Date: 08/22/16 Stop Date: 08/17/17 [...] 07/23/18 13:46:52 EDT, Route to Pharmacy Electronically, [id number], [facility] Start Date: 07/23/18 Status: OrderedSpiriva Respimat [...] 0 Refills, Maintenance, 05/26/19 14:13:00 EDT, Tablet, [facility], 158.5, cm, 04/09/19 15:02:00 EST,Height, 84, [...] 3 Refills, Maintenance, 06/03/19 10:55:00 EDT, Tablet, [facility], 1 tablet By Mouth Daily, 158.5, cm, 04/09/19 15:02:00 EST, Height, 84, kg, 10/05/18 2:07:00 EDT, Dry Weight Start Date: 06/03/19 Status: OrderedVitamin C 500 mg oral tablet 1 tablet = 500 mg, By Mouth, Daily, # 90 tablet, 0 Refills, Maintenance, 03/10/19 8:42:00 EST, Tablet, [facility], 158.5, cm, 02/27/19 13:31:00 EST, Height, [...] 81, WNL, 01/02/13.2skin test pos: mold, trees, [id number] Renae Jbewtcyijj0inkzabi pantozapole,5[facility] audiology Social History Social History Type Response Smoking Status Former smoker; Tobacco user in household: No; Type: Cigarettes; Tobacco use times per day: UP TO 3 PPD; Stopped at age: 52; entered on: 04/14/14 Sex
--- OUTSIDE RECORDS SUMMARY | 2022-03-26 02:45 | XMS_ITS | Continuity of Care Document ---
:1960 Author Organization [facility] Address [address] [place] [address]- Care Team Providers Name Role Phone Amilcar Hadley MD Primary Care Physician Encounter [facility] Date(s): 05/27/19 - 07/13/19 [facility] [address] [place] [address]- [facility] Attending Physician: Clover RUBALCAVA, Armando Sharpe Referring Physician: Leona Ragland MD Allergies, [...] 1Result Comment: [12/05/2017] [facility]#[id number] Comment: [11/23/2016] [facility] # [id number] Comment: [12/11/2013] vis [id number] Comment: [11/23/2016] [facility] # [id number] Comment: [04/09/2014] pt stated that she was [...] 02/13/2014:55:00 EST, Inhaler, Route to Pharmacy Electronically, [id number], [facility], 154.94, [...] 3 Refills, Maintenance, 07/10/19 13:08:00 EDT, Tablet, [facility], 158.5, cm, 07/01/19 12:34:00 [...] 0 Refills, Maintenance, 02/26/19 10:39:00 EST, Capsule, [facility], 1 capsule By Mouth Daily, 154.94, [...] 05/16/19 16:44:00 EDT, Route to Pharmacy Electronically, [facility], 158.5, cm, 04/09/19 15:02:00 EST, Height, 84, kg, 10/05/18 2:07:00 EDT, Dry Weight Start Date: 05/16/19 Stop Date: 08/14/19 Status: OrderedFish Oil 1000 mg oral capsule 1 capsule = 1,000 mg, By Mouth, Daily, # 90 capsule, 3 Refills, Maintenance, 02/26/19 10:39:00 EST, Capsule, [facility], 154.94, [...] 03/27/19 16:29:00 EST, Route to Pharmacy Electronically, [facility], 158.5, cm, 03/18/19 11:38:00 EST, Height, [...] 02/26/19 10:41:00 EST, Route to Pharmacy Electronically, [facility], 154.94, cm, 02/26/19 10:16:00 EST, Hei... Start Date: 02/26/19 Status: OrderedImitrex 100 mg oral tablet 1 tablet = 100 mg, By Mouth, Daily, PRN for migraine headache, may repeat dose after 2 hours up to amaximum of 2, # 9 tablet, 1 Refills, Acute 07/25/19 12:00:00 EDT, 07/01/19 13:17:00 EDT, Tablet, [facility], 158.5, cm, 07/01/19 12:34:00 EDT, H... Start Date: 07/01/19 Stop Date: 07/25/19 Status: Orderedlactase 9000 u oral tablet 1 [...] BY MOUTH ONCE DAILY IN THE EVENING., [facility] Start Date: 10/31/18 Status: [...] 06/18/18 13:37:18 EDT, Route to Pharmacy Electronically, [id number], [facility] Start Date: 06/18/18 Status: OrderedOrthopedic shoes Orthopedic shoes, See Instructions, # 1 each, Refills 0, Tot. Refills 0, Maintenance, Orthopedic shoes DX osteoarthritis and knee pain, 06/07/16 9:49:36, Compound Start Date: 06/07/16 Status: OrderedOrthotics See Instructions, # 1 pair, Maintenance, Padded insoles with arch supports, 06/01/17 17:15:33 EDT, Compound Start Date: 06/01/17 Status: OrderedoxyCODONE 5 mg oral tablet 5 mg, 1, tablet, By Mouth, Every 8 hours, PRN, for 7 days, Masspat checked, # 21 tablet, Refills 0, Tot. Refills 0, Acute 07/17/19 13:38:00 EDT, as needed for pain, 07/10/19 13:38:00 EDT, Route to Pharmacy Electronically, [facility], Partial ramesh... Start Date: 07/10/19 Stop Date: 07/17/19 Status: Orderedpantoprazole 40 mg oral delayed release tablet 40 mg, By Mouth, 2 times a day, # 180 each, Refills 3, Tot. Refills 3, Maintenance, 08/22/16 14:18:07, Route to Pharmacy Electronically, [id number], [facility] Start Date: 08/22/16 Stop Date: 08/17/17 [...] 07/23/18 13:46:52 EDT, Route to Pharmacy Electronically, [id number], [facility] Start [...] 07/21/19 12:45:00 EDT, 06/20/19 12:43:00 EDT, Tablet, [facility], 158.5, cm, 06/18/19 13:31:00 EDT,... Start [...] 0 Refills, Maintenance, 05/26/19 14:13:00 EDT, Tablet, [facility], 158.5, cm, 04/09/19 15:02:00 EST,Height, 84, [...] 3 Refills, Maintenance, 06/03/19 10:55:00 EDT, Tablet, [facility], 1 tablet By Mouth Daily, 158.5, cm, 04/09/19 15:02:00 EST, Height, 84, kg, 10/05/18 2:07:00 EDT, Dry Weight Start Date: 06/03/19 Status: OrderedVitamin C 500 mg oral tablet 1 tablet = 500 mg, By Mouth, Daily, # 90 tablet, 0 Refills, Maintenance, 06/20/19 8:43:00 EDT, Tablet, [facility], 158.5, cm, 06/18/19 13:31:00 EDT, Height, [...] 81, WNL, 01/02/13.2skin test pos: mold, trees, [id number] Renae Wqmzjlryfg5qpioals pantozapole,5[facility] aud[facility] Social History Social History Type Response Smoking Status Former smoker; Tobacco user in household: No; Type: Cigarettes; Tobacco use times per day: UP TO 3 PPD; Stopped at age: 52; entered on: 04/14/14 Sex
--- OUTSIDE RECORDS SUMMARY | 2022-03-26 02:46 | XMS_ITS | Continuity of Care Document ---
:1960 Author Organization [facility] Address [address] [place] [address]- Care Team Providers Name Role Phone Jomar RUBALCAVA, Amilcar Primary Care Physician Encounter [facility] Date(s): 10/14/19 - 11/13/19 [facility] [address] [place] [address]- [facility] Allergies, Adverse Reactions, Alerts Substance Reaction [...] Given P atient Refuses 1Result Comment: [12/05/2017] [facility]#[id number] Comment: [11/23/2016] [facility] # [id number] Comment: [12/11/2013] vis [id number] Comment: [11/23/2016] [facility] # [id number] Comment: [04/09/2014] pt stated that she was [...] 02/13/2014:55:00 EST, Inhaler, Route to Pharmacy Electronically, [id number], [facility], 154.94, cm, 02/07/19 11:53:00 [...] 13:08:00 EDT, Tablet, [facility], 158.5, cm, 07/01/19 12:34:00 [...] 11:01:00 EDT, Capsule, [facility], 1 capsule By Mouth [...] [facility], 158.5, cm, 08/04/19 16:24:00EDT, [...] [facility], 158.5, cm, 11/06/19 10:48:00 [...] 06/18/18 13:37:18 EDT, Route to Pharmacy Electronically, [id number], [facility] Start Date: 06/18/18 Status: OrderedOrthopedic [...] Maintenance, 08/22/16 14:18:07, Route to Pharmacy Electronically, [id number], [facility] Start Date: 08/22/16 Stop Date: [...] 11:59:00 EDT, Tablet, [facility], 158.5, cm, 11/06/19 10:48:00 EDT,Height, 84, kg, 10/05/18 2:07:00 EDT, Dry Weight Start Date: 11/06/19 Status: OrderedVitamin B Complex with Folic Acid oral tablet 1 tablet, By Mouth, Daily, # 90 tablet, 3 Refills, Maintenance, 06/03/19 10:55:00 EDT, Tablet, [facility], 1 tablet By Mouth Daily, 158.5, cm, 04/09/19 15:02:00 EST, Height, 84, kg, 10/05/18 2:07:00 EDT, Dry Weight Start Date: 06/03/19 Status: OrderedVitamin C 500 mg oral tablet 1 tablet = 500 mg, By Mouth, Daily, # 90 tablet, 0 Refills, Maintenance, 10/14/19 14:32:00 EDT, Tablet, [facility], 158.5, cm, 08/27/19 12:39:00 EDT, Height, [...] 81, WNL, 01/02/13.2skin test pos: mold, trees, [id number] Renae Wivmozgueb9idxvpdz pantozapole,5[facility] audiology Social History Social History Type Response Smoking Status Former smoker; Tobacco user in household: No; Type: Cigarettes; Tobacco use times per day: UP TO 3 PPD; Stopped at age: 52; entered on: 04/14/14 Sex
--- OUTSIDE RECORDS SUMMARY | 2022-03-26 02:46 | XMS_ITS | Continuity of Care Document ---
:1960 Author Organization [facility] Address [address] [place] [address]- Care Team Providers Name Role Phone Jomar RUBALCAVA, Amilcar Primary Care Physician Encounter [facility] Date(s): 12/29/19 - 01/28/20 [facility] [address] [place] [address]- Allergies, Adverse Reactions, Alerts Substance Reaction Severity [...] Not Given P atient Refuses 1Result Comment: [facility]:[id number] Comment: [12/05/2017] [facility]#[id number] Result Comment: [11/23/2016] [facility] # [id number] Comment: [12/11/2013] vis [id number] Comment: [11/23/2016] [facility] # [id number] Comment: [04/09/2014] pt stated that she was [...] 02/13/2014:55:00 EST, Inhaler, Route to Pharmacy Electronically, [id number], [facility], 154.94, cm, 02/07/19 [...] Date: 01/10/18 Status: OrderedCentury Women's Daily Multivitamin [place] Women's Daily Multivitamin, 1, tablet, By Mouth, [...] Refills, Maintenance, 07/10/19 13:08:00 EDT, Tablet, [facility], 158.5, cm, 07/01/19 12:34:00 EDT, Height, [...] 0 Refills, Maintenance, 12/19/19 14:27:00 EST, Capsule, [facility], 1 capsule By Mouth Daily, 158.5, [...] Electronically, [facility], 158.5, cm, 08/27/19 [...] 0 Refills, Maintenance, 01/21/20 8:28:00 EST, Tablet, [facility], Partial fill upon patient request if [...] 1 Refills, Maintenance, 01/12/20 9:22:00 EST, Tablet, [facility], 158.5, cm, 01/07/20 15:56:00 EST, Height, 84, kg, 08... Start Date: 01/12/20 Status: OrderedImitrex 100 mg oral tablet 1 tablet = 100 mg, By Mouth, Daily, PRN for migraine headache, may repeat dose after 2 hours up to amaximum of 2, # 9 tablet, 1 Refills, Maintenance, 10/14/19 15:06:00 EDT, Tablet, [facility], 158.5, [...] 10:32:00 EDT, Route to Pharmacy Electronically, [facility], 158.5, cm, 11/04/19 8:30:00 EDT, Height,84, [...] Refills, Maintenance, 10/17/2011:57:00 EDT, ER Tablet, [facility], 158.5, cm, 08/27/19 12:39:00 EDT, Height, 84, kg, 10/05/18 2:07:00 EDT, Dry Weight Start Date: 10/17/19 Status: Orderedmontelukast 10 mg oral tablet See Instructions, # 90 tablet, Refills 1 Tot. Refills 1, TAKE ONE (1) TABLET BY MOUTH ONCE DAILY IN THE EVENING., [facility] Start Date: 10/31/18 Status: OrderedOne Touch [...] 06/18/18 13:37:18 EDT, Route to Pharmacy Electronically, [id number], [facility] Start Date: 06/18/18 [...] Maintenance, 08/22/16 14:18:07, Route to Pharmacy Electronically, [id number], [facility] Start Date: 08/22/16 Stop Date: 08/17/17 [...] 1 Refills, Maintenance, 12/30/19 11:05:00 EST, Tablet, [facility], 158.5, cm, 12/10/19 14:54:00 EDT, Height, 84, kg, 10/05/18 2:07:00 EDT, Dry Weight Start Date: 12/30/19 Status: OrderedVitamin B Complex with Folic Acid oral tablet 1 tablet, By Mouth, Daily, # 90 tablet, 3 Refills, Maintenance, 06/03/19 10:55:00 EDT, Tablet, [facility], 1 tablet By Mouth Daily, 158.5, cm, 04/09/19 15:02:00 EST, Height, 84, kg, 10/05/18 2:07:00 EDT, Dry Weight Start Date: 06/03/19 Status: OrderedVitamin C 500 mg oral tablet 1 tablet = 500 mg, By Mouth, Daily, # 90 tablet, 0 Refills, Maintenance, 01/12/20 14:32:00 EST, Tablet, [facility], 158.5, cm, 01/07/20 15:56:00 EST, Height, 84, kg, 10/05/18 2:07:00 EDT, Dry Weight Start Date: 01/12/20 Stop Date: 04/11/20 Status: OrderedVoltaren 1% topical gel 1 application, Topically, 4 times a day, PRN for pain, # 100 Gm, 0 Refills, Maintenance, 01/07/20 16:13:00 EST, Gel, [facility], Partial fill upon patient request, 1 [...] 81, WNL, 01/02/13.2skin test pos: mold, trees, [id number] Renae Vhkyycemhk0jwgzopz pantozapole,5[facility] audiology Social History Social History Type Response Smoking Status Former smoker; Tobacco user in household: No; Type: Cigarettes; Tobacco use times per day: UP TO 3 PPD; Stopped at age: 52; entered on: 04/14/14 Sex
--- OUTSIDE RECORDS SUMMARY | 2022-03-26 02:46 | XMS_ITS | Continuity of Care Document ---
:1960 Author Organization [facility] Address [address] [place] [address]- Care Team Providers Name Role Phone Prashant ALVARADO, Arabella Gomez Primary Care Physician [facility] Date[facility]s): 05/[facility]20 - 06/04/20 [facility] [address] [place], [place] [address] Allergies, Adverse Reactions, Alerts Substance Reaction Severity [...] Not Given P atient Refuses 1Result Comment: [facility]:[id number] Comment: [12/05/2017] [facility]#[id number] Result Comment: [11/23/2016] [facility] # [id number] Comment: [12/11/2013] vis [id number] Comment: [11/23/2016] [facility] # [id number] Comment: [04/09/2014] pt stated that she was [...] 02/13/2014:55:00 EST, Inhaler, Route to Pharmacy Electronically, [id number], [facility], 154.94, [...] Date: 01/10/18 Status: OrderedCentury Women's Daily Multivitamin [place] Women's Daily Multivitamin, 1, tablet, By Mouth, [...] 3 Refills, Maintenance, 07/10/19 13:08:00 EDT, Tablet, [facility], 158.5, cm, 07/01/19 12:34:00 EDT, Height, [...] Daily, # 90 capsule, 0 Refills, Maintenance, 03/23/20 9:15:00 EST, Capsule, [facility], 1 capsule By Mouth Daily, 156, cm, 01/22/20 18:13:00 EST, Height, 85, kg, 01/22/20 18:13:00 EST, Dry Weight Start Date: 03/23/20 Status: OrderedCONTROL SUBSTANCE CONTROL SUBSTANCE, Refills 0, Maintenance, 02/23/16 14:19:04, Compound Start Date: 02/23/16 Status: OrderedDicyclomine = 10 mg, QID PRN, 0 Refills, Maintenance, 07/31/19 11:13:00 EDT Start Date: 07/31/19 Status: OrderedDiflucan 150 mg oral tablet 1 tablet = 150 mg, By Mouth, Once, May repeat once in 72 hours if needed., # 1 tablet, 1 Refills, Soft Stop, 10/02/19 12:24:00 EDT, Tablet, [facility], 158.5, cm, 08/27/19 12:39:00 EDT, Height, 84, kg, 10/05/18 2:07:00 EDT, Dry Weight Start Date: 10/02/19 Status: Orderedepinephrine 0.3 mg injectable solution 0 Refills, Maintenance, 12/13/18 14:05:43 EDT Start Date: 12/13/18 Status: OrderedEstrace 1 mg oral tablet 1 mg, 1, tablet, By Mouth, Daily, # 90 tablet, Refills 1, Tot. Refills 1, Maintenance, 11/12/19 16:44:00 EDT, Route to Pharmacy Electronically, [facility], 158.5, cm, 08/27/19 12:39:00 EDT, Height, [...] 0 Refills, Maintenance, 01/21/20 8:28:00 EST, Tablet, [facility], Partial fill upon patient request if [...] 1 Refills, Maintenance, 01/12/20 9:22:00 EST, Tablet, [facility], 158.5, cm, 01/07/20 15:56:00 EST, Height, 84, kg, 08... Start Date: 01/12/20 Status: OrderedImitrex 100 mg oral tablet 1 tablet = 100 mg, By Mouth, Daily, PRN for migraine headache, may repeat dose after 2 hours up to amaximum of 2, # 9 tablet, 1 Refills, Maintenance, 10/14/19 15:06:00 EDT, Tablet, [facility], 158.5, cm, 08/27/19 12:39:00 EDT, Height, [...] 11/06/19 10:32:00 EDT, Route to Pharmacy Electronically, [facility], 158.5, cm, 11/04/19 8:30:00 EDT, Height,84, [...] 5 Refills, Maintenance, 04/09/2111:50:00 EST, ER Tablet, [facility], 156, cm, 01/22/20 18:13:00 EST, Height, 85, kg, 01/22/20 18:13:00 EST, Dry Weight Start Date: 04/09/20 Status: Orderedmontelukast 10 mg oral tablet See Instructions, # 90 tablet, Refills 1 Tot. Refills 1, TAKE ONE (1) TABLET BY MOUTH ONCE DAILY IN THE EVENING., [facility] Start Date: 10/31/18 Status: Orderedmultivitamin Vitamin B Complex oral capsule 1 capsule, By Mouth, Daily, # 90 capsule, 0 Refills, Maintenance, 03/08/20 8:40:00 EST, Capsule, [facility], Partial fill upon patient request if the prescription is for a schedule II opioid drug., 1 capsule By Mouth Daily, 156, cm, 01/22/20 18:... Start Date: 03/08/20 Status: OrderedOne Touch Ultra 2 Glucose Meter [...] 06/18/18 13:37:18 EDT, Route to Pharmacy Electronically, [id number], [facility] Start Date: 06/18/18 Status: OrderedOrthopedic shoes [...] Maintenance, 08/22/16 14:18:07, Route to Pharmacy Electronically, [id number], [facility] Start Date: 08/22/16 Stop Date: 08/17/17 [...] 1 Refills, Maintenance, 12/30/19 11:05:00 EST, Tablet, [facility], 158.5, cm, 12/10/19 14:54:00 EDT, Height, 84, kg, 10/05/18 2:07:00 EDT, Dry Weight Start Date: 12/30/19 Status: OrderedVitamin B Complex with Folic Acid oral tablet 1 tablet, By Mouth, Daily, # 90 tablet, 3 Refills, Maintenance, 06/03/19 10:55:00 EDT, Tablet, [facility], 1 tablet By Mouth Daily, 158.5, cm, 04/09/19 15:02:00 EST, Height, 84, kg, 10/05/18 2:07:00 EDT, Dry Weight Start Date: 06/03/19 Status: OrderedVitamin C 500 mg oral tablet 1 tablet = 500 mg, By Mouth, Daily, # 90 tablet, 0 Refills, Maintenance, 01/12/20 14:32:00 EST, Tablet, [facility], 158.5, cm, 01/07/20 15:56:00 EST, Height, 84, kg, 10/05/18 2:07:00 EDT, Dry Weight Start Date: 01/12/20 Stop Date: 04/11/20 Status: OrderedVoltaren 1% topical gel 1 application, Topically, 4 times a day, PRN for pain, # 100 Gm, 0 Refills, Maintenance, 01/07/20 16:13:00 EST, Gel, [facility], Partial fill upon patient request, 1 [...] 81, WNL, 01/02/13.2skin test pos: mold, trees, [id number] Renae [id number] pantozapole,[facility] Social History Social History Type Response Smoking Status Former smoker; Tobacco user in household: No; Type: Cigarettes; Tobacco use times per day: UP TO 3 PPD; Stopped at age: 52; entered on: 04/14/14 Sex
--- OUTSIDE RECORDS SUMMARY | 2022-03-26 02:46 | XMS_ITS | Continuity of Care Document ---
:1960 Author Organization [facility] Address [address] [address]- Care Team Providers Name Role Phone Cami Isaac MD Primary Care Physician [facility]counter [facility] Date[facility]s): 12/09/18 - 02/16/19 [facility] [address] [facility] [address] [place] [address] [facility] Attending Physician: Ritesh Perez MD Admitting Physician: Ritesh Perez MD Referring Physician: Cami Isaac MD Allergies, [...] Given P atient Refuses 1Result Comment: [12/05/2017] [facility]#[id number] Comment: [11/23/2016] [facility] # [id number] Comment: [12/11/2013] vis [id number] Comment: [11/23/2016] [facility] # [id number] Comment: [04/09/2014] pt stated that she was [...] 02/13/2014:55:00 EST, Inhaler, Route to Pharmacy Electronically, [id number], [facility], 154.94, cm, 02/07/19 11:53:00 EST, [...] 02/04/19 15:07:00 EST, Route to Pharmacy Electronically, [facility], 154.94, cm, 12/13/18 13:54:00 EDT, Height, [...] 11/06/18 15:21:23 EDT, Route to Pharmacy Electronically, [id number], [facility] Start Date: 11/06/18 Stop Date: 11/11/18 [...] twice daily, 04/27/17 10:23:06, Compound Start Date: 3/16/18 Status: Orderedlisinopril 10 mg oral tablet 10 mg, 1, tablet, By Mouth, Daily, # 30 tablet, Refills 1, Tot. Refills 1, Soft Stop, 02/03/19 16:58:00 EST, Route to Pharmacy Electronically, [facility], 154.94, cm, 12/13/18 13:54:00 EDT, Height, [...] BY MOUTH ONCE DAILY IN THE EVENING., [facility] Start Date: 10/31/18 Status: OrderedMultivitamin Daily, [...] 06/18/18 13:37:18 EDT, Route to Pharmacy Electronically, [id number], [facility] Start Date: 06/18/18 Status: OrderedOrthopedic [...] Maintenance, 08/22/16 14:18:07, Route to Pharmacy Electronically, [id number], [facility] Start Date: 08/22/16 Stop Date: 08/17/17 Status: OrderedpredniSONE 20 mg oral tablet See Instructions, 3 tabs PO QD x3 days, then 2 tabs PO QD x3 days, then 1 tab PO QD x3 days., # 18 tablet, 0 Refills, Acute 02/21/19 13:17:00 EST, 02/07/19 13:16:00 EST, Tablet, [facility], 154.94, cm, 02/07/19 11:53:00 EST, Height, [...] 07/23/18 13:46:52 EDT, Route to Pharmacy Electronically, [id number], [facility] Start Date: 07/23/18 Status: OrderedSpiriva [...] 81, WNL, 01/02/13.2skin test pos: mold, trees, [id number] Renae Uwazdmhglb7lhkautf pantozapole,5[facility] Social History Social History Type Response Smoking Status Former smoker; Tobacco user in household: No; Type: Cigarettes; Tobacco use times per day: UP TO 3 PPD; Stopped at age: 52; entered on: 04/14/14 Sex
--- OUTSIDE RECORDS SUMMARY | 2022-03-26 02:46 | XMS_ITS | Continuity of Care Document ---
:1960 Author [facility] Address [address] [facility] [address] [place] [address]- Care Team Providers Name Role Phone Amilcar Hadley MD Primary Care Physician [facility] [place] 03/18/[facility] - 03/28/[facility] [address] [facility] [address] [place] [address]- [facility] Attending Physician: Tiffany Denney Admitting Physician: AdmtrTiffany [...] Refuses 1Result Comment: [12/05/2017] [facility]#[id number] Comment: [11/23/2016] [facility] # [id number] Comment: [12/11/2013] vis [id number] Comment: [11/23/2016] [facility] # [id number] Comment: [04/09/2014] pt stated that she was [...] 02/13/2014:55:00 EST, Inhaler, Route to Pharmacy Electronically, [id number], [facility], 154.94, cm, 02/07/19 11:53:00 EST, [...] 0 Refills, Maintenance, 02/26/19 10:39:00 EST, Capsule, [facility], 1 capsule By Mouth Daily, 154.94, [...] 0 Refills, Maintenance, 02/27/19 13:56:00 EST, Patch, [facility], 158.5, cm, 02/27/19 13:31:00 EST, Height, 84, kg, 10/05/18 2:07:00 EDT, Dry Weight Start Date: 02/27/19 Stop Date: 05/28/19 Status: OrderedFish Oil 1000 mg oral capsule 1 capsule = 1,000 mg, By Mouth, Daily, # 90 capsule, 3 Refills, Maintenance, 02/26/19 10:39:00 EST, Capsule, [facility], 154.94, cm, 02/26/19 10:16:00 EST, Height, [...] 16:29:00 EST, Route to Pharmacy Electronically, [facility], 158.5, cm, 03/18/19 11:38:00 EST, [...] 06/18/18 13:37:18 EDT, Route to Pharmacy Electronically, [id number], [facility] Start Date: 06/18/18 Status: OrderedOrthopedic [...] Maintenance, 08/22/16 14:18:07, Route to Pharmacy Electronically, [id number], [facility] Start Date: 08/22/16 Stop Date: 08/17/17 [...] 07/23/18 13:46:52 EDT, Route to Pharmacy Electronically, [id number], [facility] [...] 0 Refills, Maintenance, 02/26/19 10:41:00 EST, Tablet, [facility], 154.94, cm, 02/26/19 10:16:00 EST, Height, 84, kg, 10/05/18 2:07:00 EDT, Dry Weight Start Date: 02/26/19 Status: OrderedVitamin B Complex with Folic Acid oral tablet 1 tablet, By Mouth, Daily, # 90 tablet, 3 Refills, Maintenance, 02/26/19 10:39:00 EST, Tablet, [facility], 1 tablet By Mouth Daily, 154.94, [...] 0 Refills, Maintenance, 03/10/19 8:42:00 EST, Tablet, [facility], 158.5, cm, 02/27/19 13:31:00 EST, Height, [...] 81, WNL, 01/02/13.2skin test pos: mold, trees, [id number] Renae Utatkgwrfm8hqhpdns pantozapole,5[facility] Social History Social History Type Response Smoking Status Former smoker; Tobacco user in household: No; Type: Cigarettes; Tobacco use times per day: UP TO 3 PPD; Stopped at age: 52; entered on: 04/14/14 Sex
--- OUTSIDE RECORDS SUMMARY | 2022-03-26 02:46 | XMS_ITS | Continuity of Care Document ---
:1960 Author Organization [facility] Address [address] [place] [address]- Care Team Providers Name Role Phone Amilcar Hadley MD Primary Care Physician Encounter [facility] Date(s): 05/29/19 - 06/08/19 [facility] [address] [place] [address]- [facility] Attending Physician: Tiffany Denney Admitting Physician: AdmtrTiffany Referring Physician: Admtr ArFrancois Allergies, Adverse Reactions, Alerts Substance Reaction Severity [...] Given P atient Refuses 1Result Comment: [12/05/2017] [facility]#[id number] Comment: [11/23/2016] [facility] # [id number] Comment: [12/11/2013] vis [id number] Comment: [11/23/2016] [facility] # [id number] Comment: [04/09/2014] pt stated that she was [...] 02/13/2014:55:00 EST, Inhaler, Route to Pharmacy Electronically, [id number], [facility], 154.94, cm, 02/07/19 11:53:00 [...] 0 Refills, Maintenance, 02/26/19 10:39:00 EST, Capsule, [facility], 1 capsule By Mouth Daily, 154.94, cm, 02/26/19 10:16:00 EST, Height, 84, kg, :07:00 EDT, Dry Weight Start Date: 02/26/19 Status: [...] 05/16/19 16:44:00 EDT, Route to Pharmacy Electronically, [facility], 158.5, cm, 04/09/19 15:02:00 EST, Height, 84, kg, 10/05/18 2:07:00 EDT, Dry Weight Start Date: 05/16/19 Stop Date: 08/14/19 Status: OrderedFish Oil 1000 mg oral capsule 1 capsule = 1,000 mg, By Mouth, Daily, # 90 capsule, 3 Refills, Maintenance, 02/26/19 10:39:00 EST, Capsule, [facility], 154.94, cm, 02/26/19 10:16:00 [...] 03/27/19 16:29:00 EST, Route to Pharmacy Electronically, [facility], 158.5, cm, 03/18/19 11:38:00 [...] 02/26/19 10:41:00 EST, Route to Pharmacy Electronically, [facility], 154.94, cm, 02/26/19 10:16:00 [...] 04/27/19 11:24:00 EDT, Route to Pharmacy Electronically, [facility], 158.5, cm, 04/09/19 15:02:00 [...] 6 Refills, Maintenance, 02/28/2010:35:00 EST, ER Tablet, [facility], 158.5, cm, 02/27/19 13:31:00 EST, Height, 84, kg, 10/05/18 2:07:00 EDT, Dry Weight Start Date: 02/28/19 Stop Date: 09/26/19 Status: Orderedmontelukast 10 mg oral tablet See Instructions, # 90 tablet, Refills 1 Tot. Refills 1, TAKE ONE (1) TABLET BY MOUTH ONCE DAILY IN THE EVENING., [facility] Start Date: 10/31/18 Status: OrderedOne Touch [...] 06/18/18 13:37:18 EDT, Route to Pharmacy Electronically, [id number], [facility] Start Date: 06/18/18 Status: OrderedOrthopedic shoes [...] Maintenance, 08/22/16 14:18:07, Route to Pharmacy Electronically, [id number], [facility] Start Date: 08/22/16 Stop Date: 08/17/17 [...] 07/23/18 13:46:52 EDT, Route to Pharmacy Electronically, [id number], [facility] Start Date: 07/23/18 Status: OrderedSpiriva Respimat [...] 0 Refills, Maintenance, 05/26/19 14:13:00 EDT, Tablet, [facility], 158.5, cm, 04/09/19 15:02:00 EST,Height, [...] 3 Refills, Maintenance, 06/03/19 10:55:00 EDT, Tablet, [facility], 1 tablet By Mouth Daily, 158.5, cm, 04/09/19 15:02:00 EST, Height, 84, kg, 10/05/18 2:07:00 EDT, Dry Weight Start Date: 06/03/19 Status: OrderedVitamin C 500 mg oral tablet 1 tablet = 500 mg, By Mouth, Daily, # 90 tablet, 0 Refills, Maintenance, 03/10/19 8:42:00 EST, Tablet, [facility], 158.5, cm, 02/27/19 13:31:00 [...] Tunnel Syndrome, 03/22/17 10:57:09, Compound Start Date: 2/8/18 Status: OrderedXolair 150 mg subcutaneous injection 0 [...] 81, WNL, 01/02/13.2skin test pos: mold, trees, [id number] Renae Xjyjvvxbuo6bkokgmz pantozapole,5[facility] audiology Social History Social History Type Response Smoking Status Former smoker; Tobacco user in household: No; Type: Cigarettes; Tobacco use times per day: UP TO 3 PPD; Stopped at age: 52; entered on: 04/14/14 Sex
--- OUTSIDE RECORDS SUMMARY | 2022-03-26 02:46 | XMS_ITS | Continuity of Care Document ---
:1960 Author Organization [facility] Address [address] [place] [address]- Care Team Providers Name Role Phone Prashant ALVARADO, Arabella Gomez Primary Care Physician [facility] Date[facility]s): 08/30/21 - 09/29/21 [facility] [address] [place] [address]- Attending Physician: Tiffany Denney Admitting Physician: Tiffany [...] Not Given P atient Refuses 1Result Comment: [facility]:[id number] Comment: [12/05/2017] [facility]#[id number] Result Comment: [11/23/2016] [facility] # [phone] Comment: [12/11/2013] vis [id number] Comment: [11/23/2016] [facility] # [id number] Comment: [04/09/2014] pt stated that she was [...] 02/13/2014:55:00 EST, Inhaler, Route to Pharmacy Electronically, [id number], [facility], 154.94, cm, 02/07/19 11:53:00 [...] 3 Refills, Maintenance, 07/10/19 13:08:00 EDT, Tablet, [facility], 158.5, cm, 07/01/19 12:34:00 EDT, Height, [...] 0 Refills, Maintenance, 06/17/20 9:47:00 EDT, Capsule, [facility], 1 capsule By Mouth Daily, 156, [...] 06/21/20 12:46:00 EDT, Route to Pharmacy Electronically, [facility], 155, cm, 06/18/20 0:35:00 EDT, [...] 0 Refills, Maintenance, 01/21/20 8:28:00 EST, Tablet, [facility], Partial fill upon patient [...] 1 Refills, Maintenance, 01/12/20 9:22:00 EST, Tablet, [facility], 158.5, cm, 01/07/20 15:56:00 EST, Height, 84, kg, 08... Start Date: 01/12/20 Status: OrderedImitrex 100 mg oral tablet 1 tablet = 100 mg, By Mouth, Daily, PRN for migraine headache, may repeat dose after 2 hours up to amaximum of 2, # 9 tablet, 1 Refills, Maintenance, 10/14/19 15:06:00 EDT, Tablet, [facility], 158.5, cm, 08/27/19 12:39:00 EDT, Height, [...] 5 Refills, Maintenance, 04/09/2111:50:00 EST, ER Tablet, [facility], 156, cm, 01/22/20 18:13:00 EST, Height, 85, kg, 01/22/20 18:13:00 EST, Dry Weight Start Date: 04/09/20 Status: Orderedmontelukast 10 mg oral tablet See Instructions, # 90 tablet, Refills 1 Tot. Refills 1, TAKE ONE (1) TABLET BY MOUTH ONCE DAILY IN THE EVENING., [facility] Start Date: 10/31/18 Status: Orderedmultivitamin Vitamin B Complex oral capsule 1 capsule, By Mouth, Daily, # 90 capsule, 0 Refills, Maintenance, 06/17/20 9:47:00 EDT, Capsule, [facility], Partial fill upon patient request if the prescription is for a schedule II opioid drug., 1 capsule By Mouth Daily, 156, cm, 01/22/20 18:... Start Date: 06/17/20 Status: Orderedondansetron 4 mg oral tablet, disintegrating 1 tablet = 4 mg, By Mouth, 3 times a day, PRN as needed for nausea/vomiting, # 10 tablet, 0 Refills,Soft Stop, 09/28/21 0:26:00 EDT, DIS Tablet, [id number], Partial fill upon patient request if [...] 06/18/18 13:37:18 EDT, Route to Pharmacy Electronically, [id number], [facility] Start Date: 06/18/18 [...] 09/28/21 0:25:00 EDT, Route to Pharmacy Electronically, [id number], Partial fill upon patient re... Start Date: 09/28/21 Stop Date: 10/03/21 Status: Orderedpantoprazole 40 mg oral delayed release tablet 40 mg, By Mouth, 2 times a day, # 180 each, Refills 3, Tot. Refills 3, Maintenance, 08/22/16 14:18:07, Route to Pharmacy Electronically, [id number], [facility] Start Date: 08/22/16 Stop Date: 08/17/17 [...] 1 Refills, Maintenance, 12/30/19 11:05:00 EST, Tablet, [facility], 158.5, cm, 12/10/19 14:54:00 EDT, Height, 84, kg, 10/05/18 2:07:00 EDT, Dry Weight Start Date: 12/30/19 Status: OrderedVitamin B Complex with Folic Acid oral tablet 1 tablet, By Mouth, Daily, # 90 tablet, 3 Refills, Maintenance, 06/03/19 10:55:00 EDT, Tablet, [facility], 1 tablet By Mouth Daily, 158.5, cm, 04/09/19 15:02:00 EST, Height, 84, kg, 10/05/18 2:07:00 EDT, Dry Weight Start Date: 06/03/19 Status: OrderedVitamin C 500 mg oral tablet 1 tablet = 500 mg, By Mouth, Daily, # 90 tablet, 0 Refills, Maintenance, 01/12/20 14:32:00 EST, Tablet, [facility], 158.5, cm, 01/07/20 15:56:00 EST, Height, 84, kg, 10/05/18 2:07:00 EDT, Dry Weight Start Date: 01/12/20 Stop Date: 04/11/20 Status: OrderedVoltaren 1% topical gel 1 application, Topically, 4 times a day, PRN for pain, # 100 Gm, 0 Refills, Maintenance, 01/07/20 16:13:00 EST, Gel, [facility], Partial fill upon patient request, 1 [...] Active OA - Osteoarthritis(Confirmed) Active Obese class II(Confirmed) Active Obesity(Confirmed) Active Pelvic pain in female(Confirmed) Active Pernicious anemia(Confirmed) Active PTSD (post-traumatic stress Active disorder)(Confirmed) Seasonal allergies(Confirmed) Active Shoulder pain, left(Confirmed) Active Shoulder pain, right(Confirmed) Active MRSA colonization(Confirmed) Active Vertigo(Confirmed) Active 1RAST 36 ALLERGENS, ALL 0, EXC 3+ ROACHES. IGE 83, WNL, 01/02/13.2skin test pos: mold, trees, [id number] Renae Nxpgslbiqo9ahzyjxo pantozapole,5[facility] center audiology Social History Social History Type Response Smoking Status Former smoker; Tobacco user in household: No; Type: Cigarettes; Tobacco use times per day: UP TO 3 PPD; Stopped at age: 52; entered on: 04/14/14 Sex
--- OUTSIDE RECORDS SUMMARY | 2022-03-26 02:46 | XMS_ITS | Continuity of Care Document ---
:1960 Author Organization [facility] Address [address] [place] [address]- Care Team Providers Name Role Phone Jomar RUBALCAVA, Amilcar Primary Care Physician En[place] [facility] Date(s): 01/27/20 - 02/26/20 [facility] [address] [place] [address]- Allergies, Adverse Reactions, Alerts Substance Reaction Severity [...] Not Given P atient Refuses 1Result Comment: [facility]:[id number] Comment: [12/05/2017] [facility]#[id number] Result Comment: [11/23/2016] [facility] # [id number] Comment: [12/11/2013] vis [id number] Comment: [11/23/2016] [facility] # [id number] Comment: [04/09/2014] pt stated that she was [...] 02/13/2014:55:00 EST, Inhaler, Route to Pharmacy Electronically, [id number], [facility], 154.94, cm, 02/07/19 11:53:00 [...] Date: 01/10/18 Status: OrderedCentury Women's Daily Multivitamin [place] Women's Daily Multivitamin, 1, tablet, By Mouth, [...] 3 Refills, Maintenance, 07/10/19 13:08:00 EDT, Tablet, [facility], 158.5, cm, 07/01/19 12:34:00 [...] 0 Refills, Maintenance, 12/19/19 14:27:00 EST, Capsule, [facility], 1 capsule By Mouth [...] Stop, 10/02/19 12:24:00 EDT, Tablet, [facility], 158.5, cm, 08/27/19 12:39:00 [...] EDT, Route to Pharmacy Electronically, [facility], 158.5, cm, 08/27/19 12:39:00 EDT, Height, 84, kg, 10/05/18 2:07:00 EDT, Dry Weight Start Date: 11/12/19 Stop Date: 05/10/20 Status: OrderedFish Oil 1000 mg oral capsule 1 capsule = 1,000 mg, By Mouth, Daily, # 90 capsule, 3 Refills, Maintenance, 02/26/19 10:39:00 EST, Capsule, [facility], 154.94, cm, 02/26/19 10:16:00 [...] 0 Refills, Maintenance, 01/21/20 8:28:00 EST, Tablet, [facility], Partial fill upon patient request [...] 1 Refills, Maintenance, 01/12/20 9:22:00 EST, Tablet, [facility], 158.5, cm, 01/07/20 15:56:00 EST, Height, 84, kg, 08... Start Date: 01/12/20 Status: OrderedImitrex 100 mg oral tablet 1 tablet = 100 mg, By Mouth, Daily, PRN for migraine headache, may repeat dose after 2 hours up to amaximum of 2, # 9 tablet, 1 Refills, Maintenance, 10/14/19 15:06:00 EDT, Tablet, [facility], 158.5, cm, 08/27/19 12:39:00 [...] EDT, Route to Pharmacy Electronically, [facility], 158.5, cm, 11/04/19 8:30:00 [...] Maintenance, 10/17/2011:57:00 EDT, ER Tablet, [facility], 158.5, cm, 08/27/19 12:39:00 EDT, Height, 84, kg, 10/05/18 2:07:00 EDT, Dry Weight Start Date: 10/17/19 Status: Orderedmontelukast 10 mg oral tablet See Instructions, # 90 tablet, Refills 1 Tot. Refills 1, TAKE ONE (1) TABLET BY MOUTH ONCE DAILY IN THE EVENING., [facility] Start Date: 10/31/18 Status: [...] 06/18/18 13:37:18 EDT, Route to Pharmacy Electronically, [id number], [facility] Start Date: 06/18/18 Status: [...] Maintenance, 08/22/16 14:18:07, Route to Pharmacy Electronically, [id number], [facility] Start Date: 08/22/16 Stop Date: [...] 3 Refills, Maintenance, 06/03/19 10:55:00 EDT, Tablet, [facility], 1 tablet By Mouth Daily, 158.5, cm, 04/09/19 15:02:00 EST, Height, 84, kg, 10/05/18 2:07:00 EDT, Dry Weight Start Date: 06/03/19 Status: OrderedVitamin C 500 mg oral tablet 1 tablet = 500 mg, By Mouth, Daily, # 90 tablet, 0 Refills, Maintenance, 01/12/20 14:32:00 EST, Tablet, [facility], 158.5, cm, 01/07/20 15:56:00 EST, Height, 84, kg, 10/05/18 2:07:00 EDT, Dry Weight Start Date: 01/12/20 Stop Date: 04/11/20 Status: OrderedVoltaren 1% topical gel 1 application, Topically, 4 times a day, PRN for pain, # 100 Gm, 0 Refills, Maintenance, 01/07/20 16:13:00 EST, Gel, [facility], Partial fill upon patient request, 1 [...] 81, WNL, 01/02/13.2skin test pos: mold, trees, [id number] Renae Edvfwlpkjh8ongkiwb pantozapole,5[facility] Social History Social History Type Response Smoking Status Former smoker; Tobacco user in household: No; Type: Cigarettes; Tobacco use times per day: UP TO 3 PPD; Stopped at age: 52; entered on: 04/14/14 Sex
--- OUTSIDE RECORDS SUMMARY | 2022-03-26 02:46 | XMS_ITS | Continuity of Care Document ---
:1960 Author Organization [facility] Address [address] [place] [address]- Care Team Providers Name Role Phone Jomar RUBALCAVA, Amilcar Primary Care Physician [facility] - 12/06/19 [facility] [address] [place] [address]- [facility] Allergies, Adverse Reactions, Alerts Substance Reaction Severity [...] Not Given P atient Refuses 1Result Comment: [facility]:[phone] Comment: [12/05/2017] [facility]#[phone] Result Comment: [11/23/2016] [facility] # [id number] Comment: [12/11/2013] vis [id number] Comment: [11/23/2016] [facility] # [phone] Comment: [04/09/2014] pt stated that she was [...] 02/13/2014:55:00 EST, Inhaler, Route to Pharmacy Electronically, [id number], [facility], 154.94, cm, 02/07/19 11:53:00 [...] 3 Refills, Maintenance, 07/10/19 13:08:00 EDT, Tablet, [facility], 158.5, cm, 07/01/19 12:34:00 EDT, Height, [...] 0 Refills, Maintenance, 08/28/19 11:01:00 EDT, Capsule, [facility], 1 capsule By Mouth Daily, 158.5, [...] Refills, Soft Stop, 10/02/19 12:24:00 EDT, Tablet, [facility], 158.5, cm, 08/27/19 12:39:00 EDT, Height, [...] Instructions Replace Required Details,[facility] to [facility] Electronically[facility] Start Date: 11/21/19 Status: OrderedGas-X = [...] 11/06/19 12:00:00 EDT, Route to Pharmacy Electronically, [facility], 158.5, cm, 11/06/19 10:48:00 EDT, [place]... Start Date: 11/06/19 Stop Date: 11/20/19 Status: OrderedImitrex 100 mg oral tablet 1 tablet = 100 mg, By Mouth, Daily, PRN for migraine headache, may repeat dose after 2 hours up to amaximum of 2, # 9 tablet, 1 Refills, Maintenance, 11/21/19 13:47:00 EDT, Tablet, [facility], 158.5, cm, 11/19/19 15:50:00 EDT, Height, [...] 5 Refills, Maintenance, 10/17/2011:57:00 EDT, ER Tablet, [facility], 158.5, cm, 08/27/19 12:39:00 EDT, Height, 84, kg, 10/05/18 2:07:00 EDT, Dry Weight Start Date: 10/17/19 Status: Orderedmontelukast 10 mg oral tablet See Instructions, # 90 tablet, Refills 1 Tot. Refills 1, TAKE ONE (1) TABLET BY MOUTH ONCE DAILY IN THE EVENING., [facility] Start Date: 10/31/18 Status: OrderedOne Touch [...] 06/18/18 13:37:18 EDT, Route to Pharmacy Electronically, [id number], [facility] Start Date: 06/18/18 Status: OrderedOrthopedic shoes [...] Maintenance, 08/22/16 14:18:07, Route to Pharmacy Electronically, [id number], [facility] Start Date: 08/22/16 Stop Date: [...] 1 Refills, Maintenance, 11/06/19 11:59:00 EDT, Tablet, [email or web address], 158.5, cm, 11/06/19 10:48:00 EDT,Height, 84, kg, 10/05/18 2:07:00 EDT, Dry Weight Start Date: 11/06/19 Status: OrderedVitamin B Complex with Folic Acid oral tablet 1 tablet, By Mouth, Daily, # 90 tablet, 3 Refills, Maintenance, 06/03/19 10:55:00 EDT, Tablet, [email or web address], 1 tablet By Mouth Daily, 158.5, cm, 04/09/19 15:02:00 EST, Height, 84, kg, 10/05/18 2:07:00 EDT, Dry Weight Start Date: 06/03/19 Status: OrderedVitamin C 500 mg oral tablet 1 tablet = 500 mg, By Mouth, Daily, # 90 tablet, 0 Refills, Maintenance, 10/14/19 14:32:00 EDT, Tablet, [facility], 158.5, cm, 08/27/19 12:39:00 EDT, Height, [...] 81, WNL, 01/02/13.2skin test pos: mold, trees, irgon2Iv Renae Chyhksvvtq2cblmpxk pantozapole,5[facility] audiology Social History Social History Type Response Smoking Status Former smoker; Tobacco user in household: No; Type: Cigarettes; Tobacco use times per day: UP TO 3 PPD; Stopped at age: 52; entered on: 04/14/14 Sex
--- OUTSIDE RECORDS SUMMARY | 2022-03-26 02:46 | XMS_ITS | Continuity of Care Document ---
:1960 Author Organization [facility] Address [address] [place] [address]- Care Team Providers Name Role Phone Prashant UPPER CUTTER MACHINE, Arabella Gomez Primary Care Physician Encounter [facility] Date(s): 09/24/20 - 09/24/[address] [address]- Discharge Disposition: A-D/C Home Attending Physician: Sasha Montes De Oca MD Admitting Physician: Sasha Montes De Oca MD Referring Physician: Not on Staff, Referring MD Allergies, Adverse Reactions, Alerts Substance Reaction Severity Status propranolol Active nabumetone Active Augmentin stomach pain Active doxycycline hives Active thiazide diuretics hives [...] Not Given P atient Refuses 1Result Comment: NDC:[id number] Comment: [12/05/2017] [facility]#[id number] Result Comment: [11/23/2016] [facility] # [id number] Comment: [12/11/2013] vis [id number] Comment: [11/23/2016] [facility] # [phone] Comment: [04/09/2014] pt stated that she was [...] 02/13/2014:55:00 EST, Inhaler, Route to Pharmacy Electronically, [id number], [facility], 154.94, [...] 3 Refills, Maintenance, 07/10/19 13:08:00 EDT, Tablet, [facility], 158.5, cm, 07/01/19 12:34:00 EDT, Height, [...] 0 Refills, Maintenance, 06/17/20 9:47:00 EDT, Capsule, [facility], 1 capsule By Mouth Daily, 156, [...] 06/21/20 12:46:00 EDT, Route to Pharmacy Electronically, [facility], 155, cm, 06/18/20 0:35:00 EDT, Height, [...] Refills, Maintenance, 01/21/20 8:28:00 EST, Tablet, [facility], Partial fill upon patient request if [...] 1 Refills, Maintenance, 01/12/20 9:22:00 EST, Tablet, [facility], 158.5, cm, 01/07/20 15:56:00 EST, Height, 84, kg, 08... Start Date: 01/12/20 Status: OrderedImitrex 100 mg oral tablet 1 tablet = 100 mg, By Mouth, Daily, PRN for migraine headache, may repeat dose after 2 hours up to amaximum of 2, # 9 tablet, 1 Refills, Maintenance, 10/14/19 15:06:00 EDT, Tablet, [facility], 158.5, cm, 08/27/19 12:39:00 EDT, Height, [...] 0 Refills, Maintenance, 06/17/20 9:47:00 EDT, Capsule, [facility], [...] 06/18/18 13:37:18 EDT, Route to Pharmacy Electronically, [id number], [facility] Start [...] Maintenance, 08/22/16 14:18:07, Route to Pharmacy Electronically, [id number], [facility] Start Date: 08/22/16 Stop Date: [...] Refills, Maintenance, 12/30/19 11:05:00 EST, Tablet, [facility], 158.5, cm, 12/10/19 14:54:00 EDT, Height, 84, kg, 10/05/18 2:07:00 EDT, Dry Weight Start Date: 12/30/19 Status: OrderedVitamin B Complex with Folic Acid oral tablet 1 tablet, By Mouth, Daily, # 90 tablet, 3 Refills, Maintenance, 06/03/19 10:55:00 EDT, Tablet, [facility], 1 tablet By Mouth Daily, 158.5, cm, 04/09/19 15:02:00 EST, Height, 84, kg, 10/05/18 2:07:00 EDT, Dry Weight Start Date: 06/03/19 Status: OrderedVitamin C 500 mg oral tablet 1 tablet = 500 mg, By Mouth, Daily, # 90 tablet, 0 Refills, Maintenance, 01/12/20 14:32:00 EST, Tablet, [facility], 158.5, cm, 01/07/20 15:56:00 EST, Height, 84, kg, 10/05/18 2:07:00 EDT, Dry Weight Start Date: 01/12/20 Stop Date: 04/11/20 Status: OrderedVoltaren 1% topical gel 1 application, Topically, 4 times a day, PRN for pain, # 100 Gm, 0 Refills, Maintenance, 01/07/20 16:13:00 EST, Gel, [facility], Partial fill upon patient request, 1 [...] 81, WNL, 01/02/13.2skin test pos: mold, trees, [id number] Renae Ashwudijsn8hgwpbfl pantozapole,5[facility] audiology Vital Signs Most recent to oldest [Reference Range]: 1 2 Height 155 cm 155 cm (09/24/20 2:51 PM) (09/24/20 12:15 PM) Weight 82.6 kg 82.6 kg (09/24/20 2:51 PM) (09/24/20 12:15 PM) Oxygen Saturation [94-100 %] 96 % 96 % (09/24/20 2:51 PM) (09/24/20 12:15 PM) Pulse Rate [55-90 bpm] 83 bpm 81 bpm (09/24/20 2:51 PM) (09/24/20 12:15 PM) Body Mass Index [18.5-24.99] 34.38 *>HHI* (09/24/20 2:51 PM) Blood Pressure [90-138/55-84 mm Hg] 120/85 mm Hg 127/ 61 mm Hg (09/24/20 2:51 PM) (09/24/20 12:15 PM) Respiratory Rate [16-30 br/min] 20 br/min 19 br/mi n (09/24/20 2:51 PM) (09/24/20 12:15 PM) Temperature [96.8-100.4 DegF] 97.0 DegF 97.3 DegF (09/24/20 2:51 PM) (09/24/20 12:15 PM) Mode of Delivery (Oxygen) Room air Room air (09/24/20 2:51 PM) (09/24/20 12:15 PM) Blood pressure sites Arm, right Arm, right (09/24/20 2:51 PM) (09/24/20 12:15 PM) Temperature Route Oral Oral (09/24/20 2:51 PM) (09/24/20 12:15 PM) Dry Weight 82.6 kg 82.6 kg (09/24/20 2:51 PM) (09/24/20 12:15 PM) Social History Social History Type Response Smoking Status Former smoker; Tobacco user in household: No; Type: Cigarettes; Tobacco use times per day: UP TO 3 PPD; Stopped at age: 52; entered on: 04/14/14 Sex
--- OUTSIDE RECORDS SUMMARY | 2022-03-26 02:46 | XMS_ITS | Continuity of Care Document ---
:1960 Author Organization [facility] Address [address] [place] [address]- Care Team Providers Name Role Phone Jomar RUBALCAVA, Amilcar Primary Care Physician [facility] - [facility]/19 [facility] [address] [place] [address]- [facility] Allergies, Adverse Reactions, Alerts Substance Reaction Severity [...] Given P atient Refuses 1Result Comment: [12/05/2017] [facility]#[id number] Comment: [11/23/2016] [facility] # [id number] Comment: [12/11/2013] vis [id number] Comment: [11/23/2016] [facility] # [phone] Comment: [04/09/2014] pt stated that she was [...] 02/13/2014:55:00 EST, Inhaler, Route to Pharmacy Electronically, [id number], [facility], 154.94, cm, 02/07/19 11:53:00 EST, He... [...] 0 Refills, Maintenance, 08/28/19 11:01:00 EDT, Capsule, [facility], 1 capsule By Mouth Daily, 158.5, [...] Refills, Maintenance, 07/29/19 15:59:00 EDT, EC Tablet, [facility], 158.5, cm, 07/29/19 10:33:00 EDT, Height, [...] 08/14/19 16:44:00 EDT, Route to Pharmacy Electronically, [facility], 158.5,cm, 07/29/19 10:33:00 EDT, Height, 84, [...] 08/19/19 8:20:00 EDT, Route to Pharmacy Electronically, [facility], 158.5, cm, 08/04/19 16:24:00EDT, Height, 84, [...] 1 Refills, Maintenance, 10/14/19 15:06:00 EDT, Tablet, [facility] [...] 5 Refills, Maintenance, 10/17/2011:57:00 EDT, ER Tablet, [facility], 158.5, cm, 08/27/19 12:39:00 EDT, Height, 84, kg, 10/05/18 2:07:00 EDT, Dry Weight Start Date: 10/17/19 Status: Orderedmontelukast 10 mg oral tablet See Instructions, # 90 tablet, Refills 1 Tot. Refills 1, TAKE ONE (1) TABLET BY MOUTH ONCE DAILY IN THE EVENING., [facility] Start Date: 10/31/18 Status: OrderedOne Touch [...] 06/18/18 13:37:18 EDT, Route to Pharmacy Electronically, [id number], [facility] Start [...] Maintenance, 08/22/16 14:18:07, Route to Pharmacy Electronically, [id number], [facility] Start Date: 08/22/16 Stop Date: 08/17/17 [...] 07/23/18 13:46:52 EDT, Route to Pharmacy Electronically, [id number], [facility] Start Date: 07/23/18 Status: OrderedSpiriva Respimat [...] 0 Refills, Maintenance, 07/30/19 11:47:00 EDT, Tablet, [facility], 158.5, cm, 07/29/19 10:33:00 EDT,Height, 84, [...] 3 Refills, Maintenance, 06/03/19 10:55:00 EDT, Tablet, [facility], 1 tablet By Mouth Daily, 158.5, cm, 04/09/19 15:02:00 EST, Height, 84, kg, 10/05/18 2:07:00 EDT, Dry Weight Start Date: 06/03/19 Status: OrderedVitamin C 500 mg oral tablet 1 tablet = 500 mg, By Mouth, Daily, # 90 tablet, 0 Refills, Maintenance, 10/14/19 14:32:00 EDT, Tablet, [facility], 158.5, cm, 08/27/19 12:39:00 EDT, Height, [...] 81, WNL, 01/02/13.2skin test pos: mold, trees, [id number] Renae Yrnnitdnxt3bgfqwep pantozapole,5[facility] audiology Social History Social History Type Response Smoking Status Former smoker; Tobacco user in household: No; Type: Cigarettes; Tobacco use times per day: UP TO 3 PPD; Stopped at age: 52; entered on: 04/14/14 Sex
[2022-03-26 02:47] LABS: SLIDE REVIEW VERIFIED
--- OUTSIDE RECORDS SUMMARY | 2022-03-26 02:47 | XMS_ITS | Continuity of Care Document ---
:1960 Author Organization [facility] [employer] Address [address] [place] [address]- Care Team Providers Name Role Phone Jomar RUBALCAVA, Amilcar Primary Care Physician [facility]/19 [facility] [address] [place] [address]- [facility] Attending Physician: Cami Guthrie MD Allergies, Adverse Reactions, [...] Given P atient Refuses 1Result Comment: [12/05/2017] [facility]#[id number] Comment: [11/23/2016] [facility] # [id number] Comment: [12/11/2013] vis [id number] Comment: [11/23/2016] [facility] # [id number] Comment: [04/09/2014] pt stated that she was [...] 02/13/2014:55:00 EST, Inhaler, Route to Pharmacy Electronically, [id number], [facility], 154.94, cm, 02/07/19 [...] 06/18/18 13:37:18 EDT, Route to Pharmacy Electronically, [id number], [facility] Start Date: 06/18/18 Status: OrderedOrthopedic [...] Maintenance, 08/22/16 14:18:07, Route to Pharmacy Electronically, [id number], [facility] Start Date: 08/22/16 Stop Date: [...] 07/23/18 13:46:52 EDT, Route to Pharmacy Electronically, [id number], [facility] Start Date: 07/23/18 Status: OrderedSpiriva [...] 0 Refills, Maintenance, 02/26/19 10:41:00 EST, Tablet, [facility], 154.94, cm, 02/26/19 10:16:00 EST, Height, 84, kg, 10/05/18 2:07:00 EDT, Dry Weight Start Date: 02/26/19 Status: OrderedVitamin B Complex with Folic Acid oral tablet 1 tablet, By Mouth, Daily, # 90 tablet, 3 Refills, Maintenance, 02/26/19 10:39:00 EST, Tablet, [facility], 1 tablet By Mouth Daily, 154.94, [...] 0 Refills, Maintenance, 03/10/19 8:42:00 EST, Tablet, [facility], 158.5, cm, 02/27/19 13:31:00 EST, Height, [...] 81, WNL, 01/02/13.2skin test pos: mold, trees, tbxyn1Pw Renae Sliyplrwwi3zphcsil pantozapole,5[facility] Social History Social History Type Response Smoking Status Former smoker; Tobacco user in household: No; Type: Cigarettes; Tobacco use times per day: UP TO 3 PPD; Stopped at age: 52; entered on: 04/14/14 Sex
--- OUTSIDE RECORDS SUMMARY | 2022-03-26 02:47 | XMS_ITS | Continuity of Care Document ---
:1960 Author Organization [facility] Address [address] [place] [address]- Care Team Providers Name Role Phone Jomar RUBALCAVA, Amilcar Primary Care Physician [facility] - 10/25/19 [facility] [address] [place] [address]- [facility] Allergies, Adverse Reactions, Alerts Substance Reaction [...] Given P atient Refuses 1Result Comment: [12/05/2017] [facility]#[phone] Comment: [11/23/2016] [facility] # [id number] Comment: [12/11/2013] vis [id number] Comment: [11/23/2016] [facility] # [id number] Comment: [04/09/2014] pt stated that she was [...] 02/13/2014:55:00 EST, Inhaler, Route to Pharmacy Electronically, [id number], [facility], 154.94, cm, 02/07/19 11:53:00 [...] Refills, Soft Stop, 10/02/19 12:24:00 EDT, Tablet, [facility], 158.5, [...] 11/12/19 16:44:00 EDT, Route to Pharmacy Electronically, [facility], 158.5, cm, 08/27/19 12:39:00 EDT, Height, 84, kg, 10/05/18 2:07:00 EDT, Dry Weight Start Date: 11/12/19 Stop Date: 05/10/20 Status: OrderedEstrace 1 mg oral tablet 1 mg, 1, tablet, By Mouth, Daily, for 90 days, # 90 tablet, Refills 0, Tot. Refills 0, Hard Stop 11/12/19 16:44:00 EDT, 08/14/19 16:44:00 EDT, Route to Pharmacy Electronically, [facility], 158.5,cm, 07/29/19 10:33:00 EDT, Height, [...] 1 Refills, Maintenance, 10/14/19 15:06:00 EDT, Tablet, [facility], 158.5, [...] 5 Refills, Maintenance, 10/17/2011:57:00 EDT, ER Tablet, [facility], 158.5, cm, 08/27/19 12:39:00 EDT, Height, 84, kg, 10/05/18 2:07:00 EDT, Dry Weight Start Date: 10/17/19 Status: Orderedmontelukast 10 mg oral tablet See Instructions, # 90 tablet, Refills 1 Tot. Refills 1, TAKE ONE (1) TABLET BY MOUTH ONCE DAILY IN THE EVENING., [facility] Start Date: 10/31/18 Status: OrderedOne [...] 06/18/18 13:37:18 EDT, Route to Pharmacy Electronically, [id number], [facility] Start Date: 06/18/18 [...] Maintenance, 08/22/16 14:18:07, Route to Pharmacy Electronically, [id number], [facility] Start Date: 08/22/16 Stop Date: 08/17/17 [...] 07/23/18 13:46:52 EDT, Route to Pharmacy Electronically, [id number], [facility] Start Date: 07/23/18 Status: OrderedSpiriva Respimat [...] 0 Refills, Maintenance, 07/30/19 11:47:00 EDT, Tablet, [facility], 158.5, cm, 07/29/19 10:33:00 EDT,Height, [...] 3 Refills, Maintenance, 06/03/19 10:55:00 EDT, Tablet, [facility], 1 tablet By Mouth Daily, 158.5, cm, 04/09/19 15:02:00 EST, Height, 84, kg, 10/05/18 2:07:00 EDT, Dry Weight Start Date: 06/03/19 Status: OrderedVitamin C 500 mg oral tablet 1 tablet = 500 mg, By Mouth, Daily, # 90 tablet, 0 Refills, Maintenance, 10/14/19 14:32:00 EDT, Tablet, [facility], 158.5, cm, 08/27/19 12:39:00 EDT, Height, [...] 81, WNL, 01/02/13.2skin test pos: mold, trees, ygulr8Lu Renae Rjgyupqjbg4ohhpnrq pantozapole,5[facility] audiology Social History Social History Type Response Smoking Status Former smoker; Tobacco user in household: No; Type: Cigarettes; Tobacco use times per day: UP TO 3 PPD; Stopped at age: 52; entered on: 04/14/14 Sex
--- OUTSIDE RECORDS SUMMARY | 2022-03-26 02:47 | XMS_ITS | Continuity of Care Document ---
:1960 Author Organization [facility] Address [address] [place] [address]- Care Team Providers Name Role Phone Jomar RUBALCAVA, Amilcar Primary Care Physician [facility] - 09[facility]18/19 [facility] [address] [place] [address]- [facility] Allergies, Adverse Reactions, Alerts Substance Reaction [...] 1Result Comment: [12/05/2017] [facility]#[id number] Comment: [11/23/2016] [facility] # [id number] Comment: [12/11/2013] vis [id number] Comment: [11/23/2016] [facility] # [phone] Comment: [04/09/2014] pt stated that she was [...] 02/13/2014:55:00 EST, Inhaler, Route to Pharmacy Electronically, [id number], [facility], 154.94, cm, 02/07/19 11:53:00 EST, [...] 3 Refills, Maintenance, 07/10/19 13:08:00 EDT, Tablet, [facility], 158.5, cm, [...] 0 Refills, Maintenance, 08/28/19 11:01:00 EDT, Capsule, [facility], 1 capsule By Mouth [...] Refills, Maintenance, 07/29/19 15:59:00 EDT, EC Tablet, [facility], 158.5, cm, 07/29/19 10:33:00 [...] 08/14/19 16:44:00 EDT, Route to Pharmacy Electronically, [facility], 158.5, cm, 07/29/19 10:33:00 EDT, Height, 84, kg, 10/05/18 2:07:00 EDT, Dry Weight Start Date: 08/14/19 Stop Date: 11/12/19 Status: OrderedFish Oil 1000 mg oral capsule 1 capsule = 1,000 mg, By Mouth, Daily, # 90 capsule, 3 Refills, Maintenance, 02/26/19 10:39:00 EST, Capsule, [facility], 154.94, cm, [...] 08/19/19 8:20:00 EDT, Route to Pharmacy Electronically, [facility], 158.5, cm, 08/04/19 16:24:00EDT, [...] 10:41:00 EST, Route to Pharmacy Electronically, [facility], 154.94, cm, 02/26/19 10:16:00 EST, Hei... Start Date: 02/26/19 Status: OrderedImitrex 100 mg oral tablet 1 tablet = 100 mg, By Mouth, Daily, PRN for migraine headache, may repeat dose after 2 hours up to amaximum of 2, # 9 tablet, 1 Refills, Maintenance, 09/02/19 13:49:00 EDT, Tablet, [facility], 158.5, cm, 08/27/19 12:39:00 [...] 04/27/19 11:24:00 EDT, Route to Pharmacy Electronically, [facility], 158.5, cm, [...] Refills, Maintenance, 02/28/2010:35:00 EST, ER Tablet, [facility], 158.5, cm, [...] 06/18/18 13:37:18 EDT, Route to Pharmacy Electronically, [id number], [facility] Start Date: 06/18/18 Status: OrderedOrthopedic [...] Maintenance, 08/22/16 14:18:07, Route to Pharmacy Electronically, [id number], [facility] Start Date: 08/22/16 Stop Date: 08/17/17 [...] 07/23/18 13:46:52 EDT, Route to Pharmacy Electronically, [id number], [facility] Start Date: 07/23/18 Status: OrderedSpiriva [...] 0 Refills, Maintenance, 07/30/19 11:47:00 EDT, Tablet, [facility], 158.5, cm, 07/29/19 10:33:00 EDT,Height, 84, [...] 3 Refills, Maintenance, 06/03/19 10:55:00 EDT, Tablet, [facility], 1 tablet By Mouth Daily, 158.5, cm, 04/09/19 15:02:00 EST, Height, 84, kg, 10/05/18 2:07:00 EDT, Dry Weight Start Date: 06/03/19 Status: OrderedVitamin C 500 mg oral tablet 1 tablet = 500 mg, By Mouth, Daily, # 90 tablet, 0 Refills, Maintenance, 06/20/19 8:43:00 EDT, Tablet, [email or web address], 158.5, cm, 06/18/19 13:31:00 EDT, Height, [...] 81, WNL, 01/02/13.2skin test pos: mold, trees, [id number] Renae [id number] pantozapole,[facility] Social History Social History Type Response Smoking Status Former smoker; Tobacco user in household: No; Type: Cigarettes; Tobacco use times per day: UP TO 3 PPD; Stopped at age: 52; entered on: 04/14/14 Sex
--- OUTSIDE RECORDS SUMMARY | 2022-03-26 02:47 | XMS_ITS | Continuity of Care Document ---
:1960 Author Organization [facility] Address [address] [place] [address]- Care Team Providers Name Role Phone Jomar RUBALCAVA, Amilcar Primary Care Physician Encounter [facility] Date(s): 01/05/20 - 02/04/20 [facility] [address] [place] [address]- Allergies, Adverse Reactions, Alerts Substance Reaction Severity [...] Not Given P atient Refuses 1Result Comment: [facility]:[id number] Comment: [12/05/2017] [facility]#[id number] Result Comment: [11/23/2016] [facility] # [id number] Comment: [12/11/2013] vis [id number] Comment: [11/23/2016] [facility] # [phone] Comment: [04/09/2014] pt stated that she was [...] 02/13/2014:55:00 EST, Inhaler, Route to Pharmacy Electronically, [id number], [facility], 154.94, cm, 02/07/19 [...] Date: 01/10/18 Status: OrderedCentury Women's Daily Multivitamin [place] Women's Daily Multivitamin, 1, tablet, By Mouth, [...] 0 Refills, Maintenance, 12/19/19 14:27:00 EST, Capsule, [facility], 1 capsule [...] 0 Refills, Maintenance, 01/21/20 8:28:00 EST, Tablet, [facility], Partial fill upon patient [...] 1 Refills, Maintenance, 01/12/20 9:22:00 EST, Tablet, [facility], 158.5, cm, 01/07/20 15:56:00 [...] 11/06/19 10:32:00 EDT, Route to Pharmacy Electronically, [facility], 158.5, cm, 11/04/19 8:30:00 EDT, [...] 06/18/18 13:37:18 EDT, Route to Pharmacy Electronically, [id number], [facility] Start Date: 06/18/18 [...] Maintenance, 08/22/16 14:18:07, Route to Pharmacy Electronically, [id number], [facility] Start Date: 08/22/16 Stop Date: 08/17/17 [...] 1 Refills, Maintenance, 12/30/19 11:05:00 EST, Tablet, [facility], 158.5, cm, 12/10/19 14:54:00 EDT, Height, 84, kg, 10/05/18 2:07:00 EDT, Dry Weight Start Date: 12/30/19 Status: OrderedVitamin B Complex with Folic Acid oral tablet 1 tablet, By Mouth, Daily, # 90 tablet, 3 Refills, Maintenance, 06/03/19 10:55:00 EDT, Tablet, [facility], 1 tablet By Mouth Daily, 158.5, cm, 04/09/19 15:02:00 EST, Height, 84, kg, 10/05/18 2:07:00 EDT, Dry Weight Start Date: 06/03/19 Status: OrderedVitamin C 500 mg oral tablet 1 tablet = 500 mg, By Mouth, Daily, # 90 tablet, 0 Refills, Maintenance, 01/12/20 14:32:00 EST, Tablet, [facility], 158.5, cm, 01/07/20 15:56:00 EST, Height, 84, kg, 10/05/18 2:07:00 EDT, Dry Weight Start Date: 01/12/20 Stop Date: 04/11/20 Status: OrderedVoltaren 1% topical gel 1 application, Topically, 4 times a day, PRN for pain, # 100 Gm, 0 Refills, Maintenance, 01/07/20 16:13:00 EST, Gel, [facility], Partial fill upon patient request, 1 [...] 81, WNL, 01/02/13.2skin test pos: mold, trees, oucny7Og Renae Ekdaotatha3xkmplit pantozapole,5[facility] aud[facility] Social History Social History Type Response Smoking Status Former smoker; Tobacco user in household: No; Type: Cigarettes; Tobacco use times per day: UP TO 3 PPD; Stopped at age: 52; entered on: 04/14/14 Sex
--- OUTSIDE RECORDS SUMMARY | 2022-03-26 02:47 | XMS_ITS | Continuity of Care Document ---
:1960 Author Organization [facility] Address [address] [place] [address]- Care Team Providers Name Role Phone Amilcar Hadley MD Primary Care Physician Encounter [facility] Date(s): 12/10/19 - 12/17/19 [facility] [address] [place] [address]- [facility] Encounter Diagnosis Encounter for postoperative wound check (Discharge Diagnosis) - 12/10/19 Attending Physician: Sebastien Norman Referring Physician: Amilcar Hadley MD Allergies, Adverse [...] Not Given P atient Refuses 1Result Comment: [facility]:[phone] Comment: [12/05/2017] [facility]#[id number] Result Comment: [11/23/2016] [facility] # [phone] Comment: [12/11/2013] vis [id number] Comment: [11/23/2016] [facility] # [id number] Comment: [04/09/2014] pt stated that she was [...] 02/13/2014:55:00 EST, Inhaler, Route to Pharmacy Electronically, [id number], [facility], 154.94, cm, 02/07/19 11:53:00 EST, [...] 3 Refills, Maintenance, 07/10/19 13:08:00 EDT, Tablet, [facility], 158.5, cm, 07/01/19 12:34:00 EDT, [...] 0 Refills, Maintenance, 08/28/19 11:01:00 EDT, Capsule, [facility], 1 capsule By Mouth Daily, 158.5, [...] Refills, Soft Stop, 10/02/19 12:24:00 EDT, Tablet, [facility], 158.5, cm, 08/27/19 12:39:00 EDT, Height, 84, kg, 10/05/18 2:07:00 EDT, Dry Weight Start Date: 10/02/19 Status: Orderedepinephrine 0.3 mg injectable solution 0 Refills, Maintenance, 12/13/18 14:05:43 EDT Start Date: 12/13/18 Status: OrderedEstrace 1 mg oral tablet 1 mg, 1, tablet, By Mouth, Daily, # 90 tablet, Refills 1, Tot. Refills 1, Maintenance, 11/12/19 16:44:00 EDT, Route to Pharmacy Electronically, [facility], 158.5, cm, 08/27/19 12:39:00 EDT, Height, 84, kg, 10/05/18 2:07:00 EDT, Dry Weight Start Date: 11/12/19 Stop Date: 05/10/20 Status: OrderedFish Oil 1000 mg oral capsule 1 capsule = 1,000 mg, By Mouth, Daily, # 90 capsule, 3 Refills, Maintenance, 02/26/19 10:39:00 EST, Capsule, [facility], 154.94, cm, 02/26/19 10:16:00 EST, [...] Instructions Replace Required Details,[facility] to Pharm[facility] Electronically, [facility] Start Date: 11/21/19 Status: OrderedGas-X = [...] 11/06/19 12:00:00 EDT, Route to Pharmacy Electronically, [facility], 158.5, cm, 11/06/19 10:48:00 EDT, Heig... Start Date: 11/06/19 Stop Date: 11/20/19 Status: OrderedImitrex 100 mg oral tablet 1 tablet = 100 mg, By Mouth, Daily, PRN for migraine headache, may repeat dose after 2 hours up to amaximum of 2, # 9 tablet, 1 Refills, Maintenance, 11/21/19 13:47:00 EDT, Tablet, [facility], 158.5, cm, 11/19/19 15:50:00 EDT, Height, 84, kg, 0... Start Date: 11/21/19 Status: OrderedImitrex 100 mg oral tablet 1 tablet = 100 mg, By Mouth, Daily, PRN for migraine headache, may repeat dose after 2 hours up to amaximum of 2, # 9 tablet, 1 Refills, Maintenance, 10/14/19 15:06:00 EDT, Tablet, [facility], 158.5, cm, 08/27/19 12:39:00 EDT, [...] 11/06/19 10:32:00 EDT, Route to Pharmacy Electronically, [facility], 158.5, cm, 11/04/19 8:30:00 EDT, [...] 5 Refills, Maintenance, 10/17/2011:57:00 EDT, ER Tablet, [facility], 158.5, cm, 08/27/19 12:39:00 EDT, Height, 84, kg, 10/05/18 2:07:00 EDT, Dry Weight Start Date: 10/17/19 Status: Orderedmontelukast 10 mg oral tablet See Instructions, # 90 tablet, Refills 1 Tot. Refills 1, TAKE ONE (1) TABLET BY MOUTH ONCE DAILY IN THE EVENING., [facility] Start Date: 10/31/18 Status: OrderedOne [...] 06/18/18 13:37:18 EDT, Route to Pharmacy Electronically, [id number], [facility] Start Date: 06/18/18 Status: OrderedOrthopedic [...] 1, tablet, By Mouth, Every 6 hours, take 1 tab by mouth every 6 hours x 10 days. PRN: pain, # 28 tablet, Refills 0, Tot. Refills 0, Acute 12/18/19 16:57:00 EST, 12/09/19 16:59:00 EDT, Route to Pharmacy Electronically, [id number] ([employer]... Start Date: 12/09/19 Stop Date: 12/18/19 Status: Orderedpantoprazole 40 mg oral delayed release tablet 40 mg, By Mouth, 2 times a day, # 180 each, Refills 3, Tot. Refills 3, Maintenance, 08/22/16 14:18:07, Route to Pharmacy Electronically, [id number], [facility] Start Date: 08/22/16 Stop Date: [...] 1 Refills, Maintenance, 11/06/19 11:59:00 EDT, Tablet, [facility], 158.5, cm, 11/06/19 10:48:00 EDT,Height, 84, kg, 10/05/18 2:07:00 EDT, Dry Weight Start Date: 11/06/19 Status: OrderedVitamin B Complex with Folic Acid oral tablet 1 tablet, By Mouth, Daily, # 90 tablet, 3 Refills, Maintenance, 06/03/19 10:55:00 EDT, Tablet, [facility], 1 tablet By Mouth Daily, 158.5, cm, 04/09/19 15:02:00 EST, Height, 84, kg, 10/05/18 2:07:00 EDT, Dry Weight Start Date: 06/03/19 Status: OrderedVitamin C 500 mg oral tablet 1 tablet = 500 mg, By Mouth, Daily, # 90 tablet, 0 Refills, Maintenance, 10/14/19 14:32:00 EDT, Tablet, [facility], 158.5, cm, 08/27/19 12:39:00 EDT, Height, [...] 81, WNL, 01/02/13.2skin test pos: mold, trees, [id number] Renae Qklvoxbamu3fdrvept pantozapole,5[facility] Diagnosis Diagnosis Type Effective Dates Health Clinical Infor mant Status Service Encounter for Discharge 12/10/19 postoperative wound Diagnosis check Vital Signs Most recent to oldest [Reference Range]: 1 Height 158.5 cm (12/10/19 2:54 PM) Oxygen Saturation [94-100 %] 100 % (12/10/19 2:54 PM) Pulse Rate [55-90 bpm] 77 bpm (12/10/19 2:54 PM) Blood Pressure [90-138/55-84 mm Hg] 135/50 mm Hg (12/10/19 2:54 PM) Respiratory Rate [16-30 br/min] 16 br/min (12/10/19 2:54 PM) Temperature [96.8-100.4 DegF] 96.6 DegF *L* (12/10/19 2:54 PM) Mode of Delivery (Oxygen) Room air (12/10/19 2:54 PM) Blood pressure sites Arm, left (12/10/19 2:54 PM) Temperature Route Temporal (12/10/19 2:54 PM) Social History Social History Type Response Smoking Status Former smoker; Tobacco user in household: No; Type: Cigarettes; Tobacco use times per day: UP TO 3 PPD; Stopped at age: 52; entered on: 04/14/14 Sex
--- OUTSIDE RECORDS SUMMARY | 2022-03-26 02:47 | XMS_ITS | Continuity of Care Document ---
:1960 Author Organization [facility] Address [address] [place] [address]- Care Team Providers Name Role Phone Jomar RUBALCAVA, Amilcar Primary Care Physician [place] [facility] 02/[place]/20 [facility] [address] [place] [address]- Allergies, Adverse Reactions, Alerts Substance Reaction Severity [...] P atient Refuses 1Result Comment: [facility]:[phone] Comment: [12/05/2017] [facility]#[phone] Result Comment: [11/23/2016] [facility] # [id number] Comment: [12/11/2013] vis [id number] Comment: [11/23/2016] [facility] # [phone] Comment: [04/09/2014] pt stated that she was [...] 02/13/2014:55:00 EST, Inhaler, Route to Pharmacy Electronically, [id number], [facility], 154.94, cm, 02/07/19 11:53:00 EST, He... [...] Date: 01/10/18 Status: OrderedCentury Women's Daily Multivitamin [place] Women's Daily Multivitamin, 1, tablet, By Mouth, [...] 3 Refills, Maintenance, 07/10/19 13:08:00 EDT, Tablet, [facility], 158.5, cm, 07/01/19 12:34:00 EDT, Height, [...] 0 Refills, Maintenance, 12/19/19 14:27:00 EST, Capsule, [facility], 1 capsule By Mouth Daily, 158.5, [...] Refills, Soft Stop, 10/02/19 12:24:00 EDT, Tablet, [facility], 158.5, cm, 08/27/19 12:39:00 EDT, Height, 84, kg, 10/05/18 2:07:00 EDT, Dry Weight Start Date: 10/02/19 Status: Orderedepinephrine 0.3 mg injectable solution 0 Refills, Maintenance, 12/13/18 14:05:43 EDT Start Date: 12/13/18 Status: OrderedEstrace 1 mg oral tablet 1 mg, 1, tablet, By Mouth, Daily, # 90 tablet, Refills 1, Tot. Refills 1, Maintenance, 11/12/19 16:44:00 EDT, Route to Pharmacy Electronically, [facility], 158.5, cm, 08/27/19 12:39:00 EDT, Height, 84, kg, 10/05/18 2:07:00 EDT, Dry Weight Start Date: 11/12/19 Stop Date: 05/10/20 Status: OrderedFish Oil 1000 mg oral capsule 1 capsule = 1,000 mg, By Mouth, Daily, # 90 capsule, 3 Refills, Maintenance, 02/26/19 10:39:00 EST, Capsule, [facility], 154.94, cm, 02/26/19 10:16:00 EST, Height, [...] 0 Refills, Maintenance, 01/21/20 8:28:00 EST, Tablet, [facility], Partial fill upon patient request [...] 1 Refills, Maintenance, 01/12/20 9:22:00 EST, Tablet, [facility], 158.5, cm, 01/07/20 15:56:00 EST, Height, 84, kg, 08... Start Date: 01/12/20 Status: OrderedImitrex 100 mg oral tablet 1 tablet = 100 mg, By Mouth, Daily, PRN for migraine headache, may repeat dose after 2 hours up to amaximum of 2, # 9 tablet, 1 Refills, Maintenance, 10/14/19 15:06:00 EDT, Tablet, [facility], 158.5, cm, 08/27/19 12:39:00 EDT, Height, [...] 11/06/19 10:32:00 EDT, Route to Pharmacy Electronically, [facility], 158.5, cm, 11/04/19 8:30:00 EDT, Height,84, [...] 5 Refills, Maintenance, 10/17/2011:57:00 EDT, ER Tablet, [facility], 158.5, cm, 08/27/19 12:39:00 EDT, Height, 84, kg, 10/05/18 2:07:00 EDT, Dry Weight Start Date: 10/17/19 Status: Orderedmontelukast 10 mg oral tablet See Instructions, # 90 tablet, Refills 1 Tot. Refills 1, TAKE ONE (1) TABLET BY MOUTH ONCE DAILY IN THE EVENING., [facility] Start Date: 10/31/18 Status: OrderedOne Touch [...] 06/18/18 13:37:18 EDT, Route to Pharmacy Electronically, [id number], [facility] Start Date: 06/18/18 Status: OrderedOrthopedic shoes [...] Maintenance, 08/22/16 14:18:07, Route to Pharmacy Electronically, [id number], [facility] Start Date: 08/22/16 Stop Date: [...] 3 Refills, Maintenance, 06/03/19 10:55:00 EDT, Tablet, [facility], 1 tablet By Mouth Daily, 158.5, cm, 04/09/19 15:02:00 EST, Height, 84, kg, 10/05/18 2:07:00 EDT, Dry Weight Start Date: 06/03/19 Status: OrderedVitamin C 500 mg oral tablet 1 tablet = 500 mg, By Mouth, Daily, # 90 tablet, 0 Refills, Maintenance, 01/12/20 14:32:00 EST, Tablet, [facility], 158.5, cm, 01/07/20 15:56:00 EST, Height, 84, kg, 10/05/18 2:07:00 EDT, Dry Weight Start Date: 01/12/20 Stop Date: 04/11/20 Status: OrderedVoltaren 1% topical gel 1 application, Topically, 4 times a day, PRN for pain, # 100 Gm, 0 Refills, Maintenance, 01/07/20 16:13:00 EST, Gel, [facility], Partial fill upon patient request, 1 [...] 81, WNL, 01/02/13.2skin test pos: mold, trees, hyyou6It Renae Xmdxsushdk6mygcwow pantozapole,5[facility] audiology Social History Social History Type Response Smoking Status Former smoker; Tobacco user in household: No; Type: Cigarettes; Tobacco use times per day: UP TO 3 PPD; Stopped at age: 52; entered on: 04/14/14 Sex
--- OUTSIDE RECORDS SUMMARY | 2022-03-26 02:47 | XMS_ITS | Continuity of Care Document ---
:1960 Author Organization [facility] Address [address] [place] [address]- Care Team Providers Name Role Phone Jomar RUBALCAVA, Amilcar Primary Care Physician [place] [facility] [place] 11/25/19 [place] [address]- [facility] Discharge Disposition: A-D/C Home Attending Physician: Pérez Landis MD Admitting Physician: Pérez Landis MD Referring Physician: Pérez Landis MD Allergies, Adverse Reactions, Alerts Substance Reaction Severity Status propranolol Active doxycycline hives Active amoxicillin abdominal pain Active nabumetone Active thiazide diuretics hives Active [...] Not Given P atient Refuses 1Result Comment: [facility]:[id number] Comment: [12/05/2017] [facility]#[id number] Result Comment: [11/23/2016] [facility] # [phone] Comment: [12/11/2013] vis [id number] Comment: [11/23/2016] [facility] # [phone] Comment: [04/09/2014] pt stated that she was [...] 02/13/2014:55:00 EST, Inhaler, Route to Pharmacy Electronically, [id number], [facility], 154.94, cm, 02/07/19 [...] 3 Refills, Maintenance, 07/10/19 13:08:00 EDT, Tablet, [facility], 158.5, cm, 07/01/19 12:34:00 EDT, [...] 0 Refills, Maintenance, 08/28/19 11:01:00 EDT, Capsule, [facility], 1 capsule By Mouth Daily, [...] Refills, Soft Stop, 10/02/19 12:24:00 EDT, Tablet, [facility], 158.5, cm, 08/27/19 12:39:00 EDT, Height, 84, kg, 10/05/18 2:07:00 EDT, Dry Weight Start Date: 10/02/19 Status: Orderedepinephrine 0.3 mg injectable solution 0 Refills, Maintenance, 12/13/18 14:05:43 EDT Start Date: 12/13/18 Status: OrderedEstrace 1 mg oral tablet 1 mg, 1, tablet, By Mouth, Daily, # 90 tablet, Refills 1, Tot. Refills 1, Maintenance, 11/12/19 16:44:00 EDT, Route to Pharmacy Electronically, [facility], 158.5, cm, 08/27/19 12:39:00 EDT, Height, 84, kg, 10/05/18 2:07:00 EDT, Dry Weight Start Date: 11/12/19 Stop Date: 05/10/20 Status: OrderedFish Oil 1000 mg oral capsule 1 capsule = 1,000 mg, By Mouth, Daily, # 90 capsule, 3 Refills, Maintenance, 02/26/19 10:39:00 EST, Capsule, [facility], 154.94, cm, 02/26/19 10:16:00 EST, [...] Instructions Replace Required Details,Route to Pharmacy Electronically, [facility] Start Date: 11/21/19 Status: OrderedGas-X = [...] 11/06/19 12:00:00 EDT, Route to Pharmacy Electronically, [facility], 158.5, cm, 11/06/19 10:48:00 EDT, Heig... Start Date: 11/06/19 Stop Date: 11/20/19 Status: OrderedImitrex 100 mg oral tablet 1 tablet = 100 mg, By Mouth, Daily, PRN for migraine headache, may repeat dose after 2 hours up to amaximum of 2, # 9 tablet, 1 Refills, Maintenance, 11/21/19 13:47:00 EDT, Tablet, [facility], 158.5, cm, 11/19/19 15:50:00 EDT, Height, 84, kg, 0... Start Date: 11/21/19 Status: OrderedImitrex 100 mg oral tablet 1 tablet = 100 mg, By Mouth, Daily, PRN for migraine headache, may repeat dose after 2 hours up to amaximum of 2, # 9 tablet, 1 Refills, Maintenance, 10/14/19 15:06:00 EDT, Tablet, [facility], 158.5, cm, 08/27/19 12:39:00 EDT, [...] 11/06/19 10:32:00 EDT, Route to Pharmacy Electronically, [facility], 158.5, cm, 11/04/19 8:30:00 EDT, [...] 5 Refills, Maintenance, 10/17/2011:57:00 EDT, ER Tablet, [facility], 158.5, cm, 08/27/19 12:39:00 EDT, Height, 84, kg, 10/05/18 2:07:00 EDT, Dry Weight Start Date: 10/17/19 Status: Orderedmontelukast 10 mg oral tablet See Instructions, # 90 tablet, Refills 1 Tot. Refills 1, TAKE ONE (1) TABLET BY MOUTH ONCE DAILY IN THE EVENING., [facility] Start Date: 10/31/18 Status: OrderedOne [...] 06/18/18 13:37:18 EDT, Route to Pharmacy Electronically, [id number], [facility] Start Date: 06/18/18 Status: OrderedOrthopedic [...] Maintenance, 08/22/16 14:18:07, Route to Pharmacy Electronically, [id number], [facility] Start Date: 08/22/16 Stop Date: [...] 1 Refills, Maintenance, 11/06/19 11:59:00 EDT, Tablet, [facility], 158.5, cm, 11/06/19 10:48:00 EDT,Height, 84, kg, 10/05/18 2:07:00 EDT, Dry Weight Start Date: 11/06/19 Status: OrderedVitamin B Complex with Folic Acid oral tablet 1 tablet, By Mouth, Daily, # 90 tablet, 3 Refills, Maintenance, 06/03/19 10:55:00 EDT, Tablet, [facility], 1 tablet By Mouth Daily, 158.5, cm, 04/09/19 15:02:00 EST, Height, 84, kg, 10/05/18 2:07:00 EDT, Dry Weight Start Date: 06/03/19 Status: OrderedVitamin C 500 mg oral tablet 1 tablet = 500 mg, By Mouth, Daily, # 90 tablet, 0 Refills, Maintenance, 10/14/19 14:32:00 EDT, Tablet, [facility], 158.5, cm, 08/27/19 12:39:00 EDT, [...] 81, WNL, 01/02/13.2skin test pos: mold, trees, xyqfh5Sv Renae Vxunysheqz3xfjlhnc pantozapole,5[facility] audiology Social History Social History Type Response Smoking Status Former smoker; Tobacco user in household: No; Type: Cigarettes; Tobacco use times per day: UP TO 3 PPD; Stopped at age: 52; entered on: 04/14/14 Sex
--- OUTSIDE RECORDS SUMMARY | 2022-03-26 02:47 | XMS_ITS | Continuity of Care Document ---
:1960 Author Organization [facility] Address [address] [place] [address]- Care Team Providers Name Role Phone Amilcar Hadley MD Primary Care Physician [place] [facility] [place] Date(s): 07/31/19 - 08/07/19 [facility] [address] [place] [address]- [facility] Attending Physician: Brittany Mello MD Allergies, Adverse Reactions, [...] Given P atient Refuses 1Result Comment: [12/05/2017] [facility]#[id number] Comment: [11/23/2016] [facility] # [id number] Comment: [12/11/2013] vis [id number] Comment: [11/23/2016] [facility] # [phone] Comment: [04/09/2014] pt stated that she was [...] Replace Required Details Start Date: 01/15/17 Status: Orderedacetaminophen-HYDROcodone 325 mg-5 mg oral tablet 1 tablet, By Mouth, 2 times a day, PRN for pain, for 7 days, mass pat ck, ok to fill <rx, # 14 tablet, 0 Refills, Acute 08/11/19 17:23:00 EDT, 08/04/19 17:23:00 EDT, Tablet, [id number], Partial fill upon patient request, 1 tablet By Mouth 2 ti... Start Date: 08/04/19 Stop Date: 08/11/19 Status: Orderedacetaminophen-oxyCODONE 325 mg-5 mg oral tablet [...] 02/13/2014:55:00 EST, Inhaler, Route to Pharmacy Electronically, [id number], [facility], 154.94, cm, 02/07/19 11:53:00 EST, He... [...] 0 Refills, Maintenance, 02/26/19 10:39:00 EST, [facility]ule, [facility], 1 capsule By Mouth Daily, 154.94, [...] Refills, Maintenance, 07/29/19 15:59:00 EDT, EC Tablet, [facility], 158.5, cm, 07/29/19 10:33:00 [...] Refills 0, Tot. Refills 0, Hard Stop 08/14/19 16:44:00 EDT, 05/16/19 16:44:00 EDT, Route to Pharmacy Electronically, [facility], 158.5,cm, 04/09/19 15:02:00 EST, Height, 84, kg, ... Start Date: 05/16/19 Stop Date: 08/14/19 Status: OrderedEstrace 1 mg oral tablet 1 mg, 1, tablet, By Mouth, Daily, # 90 tablet, Refills 0, Tot. Refills 0, Maintenance, 08/14/19 16:44:00 EDT, Route to Pharmacy Electronically, [facility], 158.5, cm, 07/29/19 10:33:00 [...] 03/27/19 16:29:00 EST, Route to Pharmacy Electronically, [facility], 158.5, cm, 03/18/19 11:38:00 EST, [...] 02/26/19 10:41:00 EST, Route to Pharmacy Electronically, [facility], [...] 04/27/19 11:24:00 EDT, Route to Pharmacy Electronically, [facility], 158.5, cm, 04/09/19 15:02:00 [...] 6 Refills, Maintenance, 02/28/2010:35:00 EST, ER Tablet, [facility], 158.5, cm, 02/27/19 13:31:00 [...] 06/18/18 13:37:18 EDT, Route to Pharmacy Electronically, [id number], [facility] Start Date: 06/18/18 Status: OrderedOrthopedic shoes Orthopedic shoes, See Instructions, # 1 each, Refills 0, Tot. Refills 0, Maintenance, Orthopedic shoes DX osteoarthritis and knee pain, 06/07/16 9:49:36, Compound Start Date: 06/07/16 Status: OrderedOrthotics See Instructions, # 1 pair, Maintenance, Padded insoles with arch supports, 06/01/17 17:15:33 EDT, Compound Start Date: 4/20/18 Status: Orderedpantoprazole 40 mg oral delayed release tablet 40 mg, By Mouth, 2 times a day, # 180 each, Refills 3, Tot. Refills 3, Maintenance, 08/22/16 14:18:07, Route to Pharmacy Electronically, [id number], [facility] Start Date: 08/22/16 Stop Date: 08/17/17 [...] 07/23/18 13:46:52 EDT, Route to Pharmacy Electronically, [id number], [facility] Start Date: 07/23/18 Status: OrderedSpiriva Respimat [...] 0 Refills, Maintenance, 07/30/19 11:47:00 EDT, Tablet, [facility], 158.5, cm, 07/29/19 10:33:00 EDT,Height, 84, [...] 3 Refills, Maintenance, 06/03/19 10:55:00 EDT, Tablet, [facility], 1 tablet By Mouth Daily, 158.5, cm, 04/09/19 15:02:00 EST, Height, 84, kg, 10/05/18 2:07:00 EDT, Dry Weight Start Date: 06/03/19 Status: OrderedVitamin C 500 mg oral tablet 1 tablet = 500 mg, By Mouth, Daily, # 90 tablet, 0 Refills, Maintenance, 06/20/19 8:43:00 EDT, Tablet, [facility], 158.5, cm, 06/18/19 13:31:00 EDT, Height, [...] 81, WNL, 01/02/13.2skin test pos: mold, trees, [id number] Renae Vqwibnupma3crrgbmt pantozapole,5[facility] audiology Social History Social History Type Response Smoking Status Former smoker; Tobacco user in household: No; Type: Cigarettes; Tobacco use times per day: UP TO 3 PPD; Stopped at age: 52; entered on: 04/14/14 Sex
--- OUTSIDE RECORDS SUMMARY | 2022-03-26 02:47 | XMS_ITS | Continuity of Care Document ---
:1960 Author Organization [facility] Address [address] [place] [address]- Care Team Providers Name Role Phone Jomar RUBALCAVA, Amilcar Primary Care Physician Encounter [facility] Date(s): 05/26/19 - 06/02/19 [facility] [address] [place] [address]- [place] Encounter Diagnosis Knee pain, right- 08/29/13 Xray showed loss of medial meniscus (Discharge Diagnosis) - 05/26/19 Shoulder pain, right (Discharge Diagnosis) - 05/26/19 Attending Physician: Leona Ragland MD Allergies, Adverse Reactions, [...] Given P atient Refuses 1Result Comment: [12/05/2017] n[facility]#[id number] Comment: [11/23/2016] [facility] # [id number] Comment: [12/11/2013] vis [id number] Comment: [11/23/2016] [facility] # [id number] Comment: [04/09/2014] pt stated that she was [...] 02/13/2014:55:00 EST, Inhaler, Route to Pharmacy Electronically, [id number], [facility], 154.94, cm, 02/07/19 11:53:00 [...] 0 Refills, Maintenance, 02/26/19 10:39:00 EST, Capsule, [facility], 1 capsule By Mouth Daily, 154.94, [...] 05/16/19 16:44:00 EDT, Route to Pharmacy Electronically, [facility] [...] 03/27/19 16:29:00 EST, Route to Pharmacy Electronically, [facility], 158.5, cm, 03/18/19 11:38:00 [...] 6 Refills, Maintenance, 02/28/2010:35:00 EST, ER Tablet, [facility], 158.5, cm, 02/27/19 13:31:00 [...] 06/18/18 13:37:18 EDT, Route to Pharmacy Electronically, [id number], [facility] Start Date: 06/18/18 Status: OrderedOrthopedic [...] Maintenance, 08/22/16 14:18:07, Route to Pharmacy Electronically, [id number], [facility] Start Date: 08/22/16 Stop Date: [...] 07/23/18 13:46:52 EDT, Route to Pharmacy Electronically, [id number], [facility] Start Date: 07/23/18 Status: [...] 0 Refills, Maintenance, 05/26/19 14:13:00 EDT, Tablet, [facility], 158.5, cm, 04/09/19 15:02:00 EST,Height, 84, kg, 10/05/18 2:07:00 EDT, Dry Weight Start Date: 05/26/19 Status: OrderedVitamin B Complex with Folic Acid oral tablet 1 tablet, By Mouth, Daily, # 90 tablet, 3 Refills, Maintenance, 02/26/19 10:39:00 EST, Tablet, [facility], 1 tablet By Mouth Daily, 154.94, [...] 0 Refills, Maintenance, 03/10/19 8:42:00 EST, Tablet, [facility], 158.5, cm, 02/27/19 13:31:00 EST, Height, [...] 81, WNL, 01/02/13.2skin test pos: mold, trees, mtorm1Al Renae Oqsawucdfu1xubcddo pantozapole,5[facility] audiology Diagnosis Diagnosis Type Effective Dates Health Status Clinical In formant Service Knee pain, Discharge 05/26/19 right- 08/29/13 Diagnosis Xray showed loss of medial meniscus Shoulder pain, Discharge 05/26/19 right Diagnosis Social History Social History Type Response Smoking Status Former smoker; Tobacco user in household: No; Type: Cigarettes; Tobacco use times per day: UP TO 3 PPD; Stopped at age: 52; entered on: 04/14/14 Sex
--- OUTSIDE RECORDS SUMMARY | 2022-03-26 02:47 | XMS_ITS | Continuity of Care Document ---
:1960 Author Organization [facility] Address [address] [place] [address]- Care Team Providers Name Role Phone Cami Isaac MD Primary Care Physician Encounter [facility] Date(s): 02/14/19 - 02/14/[address] [address]- [facility] Attending Physician: Melvina Rick Allergies, Adverse Reactions, Alerts Substance Reaction Severity [...] Given P atient Refuses 1Result Comment: [12/05/2017] [facility]#[id number] Comment: [11/23/2016] [facility] # [id number] Comment: [12/11/2013] vis [id number] Comment: [11/23/2016] [facility] # [id number] Comment: [04/09/2014] pt stated that she was [...] 02/13/2014:55:00 EST, Inhaler, Route to Pharmacy Electronically, [id number], [facility], 154.94, cm, 02/07/19 11:53:00 [...] 02/04/19 15:07:00 EST, Route to Pharmacy Electronically, [facility], 154.94, cm, 12/13/18 13:54:00 EDT, [...] 11/06/18 15:21:23 EDT, Route to Pharmacy Electronically, [id number], [facility] Start Date: 11/06/18 Stop Date: 11/11/18 [...] 02/03/19 16:58:00 EST, Route to Pharmacy Electronically, [facility], 154.94, cm, 12/13/18 13:54:00 EDT, [facility] Start Date: 10/31/18 Status: OrderedMultivitamin Daily, [...] 06/18/18 13:37:18 EDT, Route to Pharmacy Electronically, [id number], [facility] Start Date: 06/18/18 [...] Maintenance, 08/22/16 14:18:07, Route to Pharmacy Electronically, [id number], [facility] Start Date: 08/22/16 Stop Date: 08/17/17 Status: OrderedpredniSONE 20 mg oral tablet See Instructions, 3 tabs PO QD x3 days, then 2 tabs PO QD x3 days, then 1 tab PO QD x3 days., # 18 tablet, 0 Refills, Acute 02/21/19 13:17:00 EST, 02/07/19 13:16:00 EST, Tablet, [facility], 154.94, cm, 02/07/19 11:53:00 EST, Height, [...] 07/23/18 13:46:52 EDT, Route to Pharmacy Electronically, [id number], [facility] Start Date: 07/23/18 Status: OrderedSpiriva [...] 81, WNL, 01/02/13.2skin test pos: mold, trees, enlpf5Co Renae Spgfmspstp6okeslrg pantozapole,5HF[facility] audiology Social History Social History Type Response Smoking Status Former smoker; Tobacco user in household: No; Type: Cigarettes; Tobacco use times per day: UP TO 3 PPD; Stopped at age: 52; entered on: 04/14/14 Sex
--- OUTSIDE RECORDS SUMMARY | 2022-03-26 02:47 | XMS_ITS | Continuity of Care Document ---
:1960 Author Organization [facility] Address [address], [address] [place] [address]- Care Team Providers Name Role Phone Amilcar Hadley MD Primary Care Physician Encounter 12/10/19 - 12/17/19 [facility] [address], [address] [place] [address]- [facility] Attending Physician: Amilcar Hadley MD Admitting Physician: Amilcar Hadley MD Referring Physician: Amilcar Hadley MD Allergies, Adverse [...] atient Refuses 1Result Comment: [facility]:[id number] Comment: [12/05/2017] [facility]#[id number] Result Comment: [11/23/2016] [facility] # [id number] Comment: [12/11/2013] vis [id number] Comment: [11/23/2016] [facility] # [id number] Comment: [04/09/2014] pt stated that she was [...] 02/13/2014:55:00 EST, Inhaler, Route to Pharmacy Electronically, [id number], [facility], 154.94, cm, 02/07/19 11:53:00 [...] Refills, Maintenance, 07/10/19 13:08:00 EDT, Tablet, [facility], 158.5, cm, 07/01/19 12:34:00 EDT, Height, [...] 0 Refills, Maintenance, 08/28/19 11:01:00 EDT, Capsule, [facility], 1 capsule By Mouth Daily, 158.5, [...] 11/12/19 16:44:00 EDT, Route to Pharmacy Electronically, [facility], 158.5, cm, 08/27/19 [...] Instructions Replace Required Details,Route to Pharmacy Electronically, [facility] Start Date: 11/21/19 Status: OrderedGas-X [...] 11/06/19 12:00:00 EDT, Route to Pharmacy Electronically, [facility], 158.5, cm, 11/06/19 10:48:00 EDT, [facility]... Start Date: 11/06/19 Stop Date: 11/20/19 Status: OrderedImitrex 100 mg oral tablet 1 tablet = 100 mg, By Mouth, Daily, PRN for migraine headache, may repeat dose after 2 hours up to amaximum of 2, # 9 tablet, 1 Refills, Maintenance, 11/21/19 13:47:00 EDT, Tablet, [facility], 158.5, cm, 11/19/19 15:50:00 EDT, [...] 5 Refills, Maintenance, 10/17/2011:57:00 EDT, ER Tablet, [facility], 158.5, cm, 08/27/19 12:39:00 EDT, Height, 84, kg, 10/05/18 2:07:00 EDT, Dry Weight Start Date: 10/17/19 Status: Orderedmontelukast 10 mg oral tablet See Instructions, # 90 tablet, Refills 1 Tot. Refills 1, TAKE ONE (1) TABLET BY MOUTH ONCE DAILY IN THE EVENING., [facility] Start Date: 10/31/18 Status: OrderedOne [...] 06/18/18 13:37:18 EDT, Route to Pharmacy Electronically, [id number], [facility] Start Date: 06/18/18 Status: [...] 12/09/19 16:59:00 EDT, Route to Pharmacy Electronically, [id number] [id number] [facility] Start Date: 12/09/19 Stop Date: 12/18/19 Status: Orderedpantoprazole 40 mg oral delayed release tablet 40 mg, By Mouth, 2 times a day, # 180 each, Refills 3, Tot. Refills 3, Maintenance, 08/22/16 14:18:07, Route to Pharmacy Electronically, [id number], [facility] Start Date: 08/22/16 Stop Date: [...] 1 Refills, Maintenance, 11/06/19 11:59:00 EDT, Tablet, [facility], 158.5, cm, 11/06/19 10:48:00 EDT,Height, 84, kg, 10/05/18 2:07:00 EDT, Dry Weight Start Date: 11/06/19 Status: OrderedVitamin B Complex with Folic Acid oral tablet 1 tablet, By Mouth, Daily, # 90 tablet, 3 Refills, Maintenance, 06/03/19 10:55:00 EDT, Tablet, [facility], 1 tablet By Mouth Daily, 158.5, cm, 04/09/19 15:02:00 EST, Height, 84, kg, 10/05/18 2:07:00 EDT, Dry Weight Start Date: 06/03/19 Status: OrderedVitamin C 500 mg oral tablet 1 tablet = 500 mg, By Mouth, Daily, # 90 tablet, 0 Refills, Maintenance, 10/14/19 14:32:00 EDT, Tablet, [facility], 158.5, [...] 81, WNL, 01/02/13.2skin test pos: mold, trees, nhoge6Nn Renae Ulzmyzurit4dtukxnt pantozapole,5HB[facility] audiology Social History Social History Type Response Smoking Status Former smoker; Tobacco user in household: No; Type: Cigarettes; Tobacco use times per day: UP TO 3 PPD; Stopped at age: 52; entered on: 04/14/14 Sex
--- OUTSIDE RECORDS SUMMARY | 2022-03-26 02:48 | XMS_ITS | Continuity of Care Document ---
:1960 Author Organization [facility] Address [address] [facility] [address] [place] [address]- Care Team Providers Name Role Phone Jomar RUBALCAVA, Amilcar Primary Care Physician Encounter [facility] Date(s): 03/18/19 - 03/25/19 [facility] [address] [place] [address]- [facility] Encounter Diagnosis Asthma (Discharge Diagnosis) - 03/18/19 Attending Physician: Kai Gomez MD Admitting Physician: Kai Gomez MD Referring Physician: Cami Isaac MD Allergies, [...] Given P atient Refuses 1Result Comment: [12/05/2017] [facility]#[id number] Comment: [11/23/2016] [facility] # [id number] Comment: [12/11/2013] vis [id number] Comment: [11/23/2016] [facility] # [phone] Comment: [04/09/2014] pt stated that she was [...] 02/13/2014:55:00 EST, Inhaler, Route to Pharmacy Electronically, [id number], [facility], 154.94, cm, 02/07/19 11:53:00 [...] 0 Refills, Maintenance, 02/26/19 10:39:00 EST, Capsule, [facility], 1 capsule By Mouth Daily, 154.94, [...] 0 Refills, Maintenance, 02/27/19 13:56:00 EST, Patch, [facility], 158.5, cm, 02/27/19 13:31:00 EST, Height, 84, kg, 10/05/18 2:07:00 EDT, Dry Weight Start Date: 02/27/19 Stop Date: 05/28/19 Status: OrderedFish Oil 1000 mg oral capsule 1 capsule = 1,000 mg, By Mouth, Daily, # 90 capsule, 3 Refills, Maintenance, 02/26/19 10:39:00 EST, Capsule, [facility], 154.94, cm, 02/26/19 10:16:00 EST, Height, [...] 02/26/19 10:41:00 EST, Route to Pharmacy Electronically, [facility], 154.94, cm, 02/26/19 [...] 6 Refills, Maintenance, 02/28/2010:35:00 EST, ER Tablet, [facility], 158.5, cm, 02/27/19 13:31:00 EST, [...] 06/18/18 13:37:18 EDT, Route to Pharmacy Electronically, [id number], [facility] Start Date: 06/18/18 Status: OrderedOrthopedic [...] Maintenance, 08/22/16 14:18:07, Route to Pharmacy Electronically, [id number], [facility] Start Date: 08/22/16 Stop Date: [...] 07/23/18 13:46:52 EDT, Route to Pharmacy Electronically, [id number], [facility] Start Date: 07/23/18 Status: OrderedSpiriva [...] 0 Refills, Maintenance, 02/26/19 10:41:00 EST, Tablet, [facility], 154.94, cm, 02/26/19 10:16:00 EST, Height, 84, kg, 10/05/18 2:07:00 EDT, Dry Weight Start Date: 02/26/19 Status: OrderedVitamin B Complex with Folic Acid oral tablet 1 tablet, By Mouth, Daily, # 90 tablet, 3 Refills, Maintenance, 02/26/19 10:39:00 EST, Tablet, [facility], 1 tablet By Mouth Daily, 154.94, [...] 0 Refills, Maintenance, 03/10/19 8:42:00 EST, Tablet, [facility], 158.5, cm, 02/27/19 13:31:00 EST, Height, [...] 81, WNL, 01/02/13.2skin test pos: mold, trees, gjmsu7Tn Renae Edgnsgvrsc8btjfklp pantozapole,5HB[facility] audiology Diagnosis Diagnosis Type Effective Dates Health Status Clinical Serv ice Informant Asthma Discharge 03/18/19 Diagnosis Vital Signs Most recent to oldest [Reference Range]: 1 Height 158.5 cm (03/18/19 11:38 AM) Weight 79.6 kg (03/18/19 11:38 AM) Oxygen Saturation [94-100 %] 96 % (03/18/19 11:38 AM) Pulse Rate [55-90 bpm] 76 bpm (03/18/19 11:38 AM) Body Mass Index [18.5-24.99] 31.69 *>HHI* (03/18/19 11:38 AM) Blood Pressure [90-138/55-84 mm Hg] 114/70 mm Hg (03/18/19 11:38 AM) Mode of Delivery (Oxygen) Room air (03/18/19 11:38 AM) Blood pressure sites Arm, left (03/18/19 11:38 AM) Weight Obtained Via Standing scale (03/18/19 11:38 AM) Social History Social History Type Response Smoking Status Former smoker; Tobacco user in household: No; Type: Cigarettes; Tobacco use times per day: UP TO 3 PPD; Stopped at age: 52; entered on: 04/14/14 Sex
--- OUTSIDE RECORDS SUMMARY | 2022-03-26 02:48 | XMS_ITS | Continuity of Care Document ---
:1960 Author Organization [facility] Address [address] [place] [address]- Care Team Providers Name Role Phone Jomar RUBALCAVA, Amilcar Primary Care Physician Encounter [facility] Date(s): 01/20/20 - 02/19/20 [facility] [address] [place] [address]- Allergies, Adverse Reactions, Alerts Substance Reaction Severity [...] Not Given P atient Refuses 1Result Comment: [facility]:[id number] Comment: [12/05/2017] [facility]#[phone] Result Comment: [11/23/2016] [facility] # [id number] Comment: [12/11/2013] vis [id number] Comment: [11/23/2016] [facility] # [id number] Comment: [04/09/2014] pt stated that she was [...] 02/13/2014:55:00 EST, Inhaler, Route to Pharmacy Electronically, [id number], [facility], 154.94, cm, 02/07/19 11:53:00 EST, [...] Date: 01/10/18 Status: OrderedCentury Women's Daily Multivitamin [place] Women's Daily Multivitamin, 1, tablet, By Mouth, [...] 3 Refills, Maintenance, 07/10/19 13:08:00 EDT, Tablet, [facility], 158.5, cm, 07/01/19 12:34:00 EDT, [...] 0 Refills, Maintenance, 12/19/19 14:27:00 EST, Capsule, [facility], 1 capsule By Mouth Daily, [...] Refills, Soft Stop, 10/02/19 12:24:00 EDT, Tablet, [facility], 158.5, cm, 08/27/19 12:39:00 EDT, Height, 84, kg, 10/05/18 2:07:00 EDT, Dry Weight Start Date: 10/02/19 Status: Orderedepinephrine 0.3 mg injectable solution 0 Refills, Maintenance, 12/13/18 14:05:43 EDT Start Date: 12/13/18 Status: OrderedEstrace 1 mg oral tablet 1 mg, 1, tablet, By Mouth, Daily, # 90 tablet, Refills 1, Tot. Refills 1, Maintenance, 11/12/19 16:44:00 EDT, Route to Pharmacy Electronically, [facility], 158.5, cm, 08/27/19 12:39:00 EDT, Height, 84, kg, 10/05/18 2:07:00 EDT, Dry Weight Start Date: 11/12/19 Stop Date: 05/10/20 Status: OrderedFish Oil 1000 mg oral capsule 1 capsule = 1,000 mg, By Mouth, Daily, # 90 capsule, 3 Refills, Maintenance, 02/26/19 10:39:00 EST, Capsule, [facility], 154.94, cm, 02/26/19 10:16:00 EST, [...] 01/12/20 9:22:00 EST, Tablet, [facility], 158.5, cm, 01/07/20 15:56:00 EST, Height, 84, kg, 08... Start Date: 01/12/20 Status: OrderedImitrex 100 mg oral tablet 1 tablet = 100 mg, By Mouth, Daily, PRN for migraine headache, may repeat dose after 2 hours up to amaximum of 2, # 9 tablet, 1 Refills, Maintenance, 10/14/19 15:06:00 EDT, Tablet, [facility], 158.5, cm, 08/27/19 12:39:00 EDT, Height, [...] 11/06/19 10:32:00 EDT, Route to Pharmacy Electronically, [facility], 158.5, cm, 11/04/19 8:30:00 EDT, [...] 5 Refills, Maintenance, 10/17/2011:57:00 EDT, ER Tablet, [facility], 158.5, cm, 08/27/19 12:39:00 EDT, Height, 84, kg, 10/05/18 2:07:00 EDT, Dry Weight Start Date: 10/17/19 Status: Orderedmontelukast 10 mg oral tablet See Instructions, # 90 tablet, Refills 1 Tot. Refills 1, TAKE ONE (1) TABLET BY MOUTH ONCE DAILY IN THE EVENING., [facility] Start Date: 10/31/18 Status: OrderedOne [...] 06/18/18 13:37:18 EDT, Route to Pharmacy Electronically, [id number], [facility] Start Date: 06/18/18 Status: OrderedOrthopedic [...] Maintenance, 08/22/16 14:18:07, Route to Pharmacy Electronically, [id number], [facility] Start Date: 08/22/16 Stop Date: [...] 1 Refills, Maintenance, 12/30/19 11:05:00 EST, Tablet, [facility], 158.5, cm, 12/10/19 14:54:00 EDT, Height, 84, kg, 10/05/18 2:07:00 EDT, Dry Weight Start Date: 12/30/19 Status: OrderedVitamin B Complex with Folic Acid oral tablet 1 tablet, By Mouth, Daily, # 90 tablet, 3 Refills, Maintenance, 06/03/19 10:55:00 EDT, Tablet, [facility], 1 tablet By Mouth Daily, 158.5, cm, 04/09/19 15:02:00 EST, Height, 84, kg, 10/05/18 2:07:00 EDT, Dry Weight Start Date: 06/03/19 Status: OrderedVitamin C 500 mg oral tablet 1 tablet = 500 mg, By Mouth, Daily, # 90 tablet, 0 Refills, Maintenance, 01/12/20 14:32:00 EST, Tablet, [facility], 158.5, cm, 01/07/20 15:56:00 EST, Height, 84, kg, 10/05/18 2:07:00 EDT, Dry Weight Start Date: 01/12/20 Stop Date: 04/11/20 Status: OrderedVoltaren 1% topical gel 1 application, Topically, 4 times a day, PRN for pain, # 100 Gm, 0 Refills, Maintenance, 01/07/20 16:13:00 EST, Gel, [facility], Partial fill upon patient request, 1 [...] 81, WNL, 01/02/13.2skin test pos: mold, trees, [id number] Renae [id number] pantozapole,[facility] Social History Social History Type Response Smoking Status Former smoker; Tobacco user in household: No; Type: Cigarettes; Tobacco use times per day: UP TO 3 PPD; Stopped at age: 52; entered on: 04/14/14 Sex
--- OUTSIDE RECORDS SUMMARY | 2022-03-26 02:48 | XMS_ITS | Continuity of Care Document ---
:1960 Author Organization [facility] Address [address] [place] [address]- Care Team Providers Name Role Phone Jomar RUBALCAVA, Amilcar Primary Care Physician Encounter [facility] Date(s): 09/29/19 - 10/29/19 [facility] [address] [place] [address]- [facility] Allergies, Adverse Reactions, Alerts Substance Reaction [...] Given P atient Refuses 1Result Comment: [12/05/2017] [facility]#[id number] Comment: [11/23/2016] [facility] # [id number] Comment: [12/11/2013] vis [id number] Comment: [11/23/2016] [facility] # [id number] Comment: [04/09/2014] pt stated that she was [...] 02/13/2014:55:00 EST, Inhaler, Route to Pharmacy Electronically, [id number], [facility], 154.94, cm, 02/07/19 11:53:00 [...] 3 Refills, Maintenance, 07/10/19 13:08:00 EDT, Tablet, [facility], 158.5, cm, 07/01/19 12:34:00 [...] 0 Refills, Maintenance, 08/28/19 11:01:00 EDT, Capsule, [facility], 1 capsule By Mouth [...] Refills, Maintenance, 07/29/19 15:59:00 EDT, EC Tablet, [facility], 158.5, cm, 07/29/19 10:33:00 [...] Refills, Soft Stop, 10/02/19 12:24:00 EDT, Tablet, [facility], 158.5, cm, 08/27/19 12:39:00 EDT, Height, 84, kg, 10/05/18 2:07:00 EDT, Dry Weight Start Date: 10/02/19 Status: Orderedepinephrine 0.3 mg injectable solution 0 Refills, Maintenance, 12/13/18 14:05:43 EDT Start Date: 12/13/18 Status: OrderedEstrace 1 mg oral tablet 1 mg, 1, tablet, By Mouth, Daily, # 90 tablet, Refills 1, Tot. Refills 1, Maintenance, 11/12/19 16:44:00 EDT, Route to Pharmacy Electronically, [facility], 158.5, cm, 08/27/19 12:39:00 EDT, Height, 84, kg, 10/05/18 2:07:00 EDT, Dry Weight Start Date: 11/12/19 Stop Date: 05/10/20 Status: OrderedEstrace 1 mg oral tablet 1 mg, 1, tablet, By Mouth, Daily, for 90 days, # 90 tablet, Refills 0, Tot. Refills 0, Hard Stop 11/12/19 16:44:00 EDT, 08/14/19 16:44:00 EDT, Route to Pharmacy Electronically, [facility], 158.5,cm, 07/29/19 10:33:00 EDT, Height, 84, kg, ... Start Date: 08/14/19 Stop Date: 11/12/19 Status: OrderedFish Oil 1000 mg oral capsule 1 capsule = 1,000 mg, By Mouth, Daily, # 90 capsule, 3 Refills, Maintenance, 02/26/19 10:39:00 EST, Capsule, [facility], 154.94, cm, 02/26/19 10:16:00 [...] 08/19/19 8:20:00 EDT, Route to Pharmacy Electronically, [facility], 158.5, cm, 08/04/19 16:24:00EDT, [...] 02/26/19 10:41:00 EST, Route to Pharmacy Electronically, [facility], 154.94, cm, 02/26/19 10:16:00 EST, Hei... Start Date: 02/26/19 Status: OrderedImitrex 100 mg oral tablet 1 tablet = 100 mg, By Mouth, Daily, PRN for migraine headache, may repeat dose after 2 hours up to amaximum of 2, # 9 tablet, 1 Refills, Maintenance, 10/14/19 15:06:00 EDT, Tablet, [facility], 158.5, cm, 08/27/19 12:39:00 [...] 04/27/19 11:24:00 EDT, Route to Pharmacy Electronically, [facility], 158.5, cm, 04/09/19 15:02:00 [...] 5 Refills, Maintenance, 10/17/2011:57:00 EDT, ER Tablet, [facility], 158.5, cm, 08/27/19 12:39:00 EDT, Height, 84, kg, 10/05/18 2:07:00 EDT, Dry Weight Start Date: 10/17/19 Status: Orderedmontelukast 10 mg oral tablet See Instructions, # 90 tablet, Refills 1 Tot. Refills 1, TAKE ONE (1) TABLET BY MOUTH ONCE DAILY IN THE EVENING., [facility] Start Date: 10/31/18 Status: [...] 06/18/18 13:37:18 EDT, Route to Pharmacy Electronically, [id number], [facility] Start Date: 06/18/18 Status: [...] Maintenance, 08/22/16 14:18:07, Route to Pharmacy Electronically, [id number], [facility] Start Date: 08/22/16 Stop Date: 08/17/17 [...] 07/23/18 13:46:52 EDT, Route to Pharmacy Electronically, [id number], [facility] Start Date: 07/23/18 Status: OrderedSpiriva Respimat [...] 0 Refills, Maintenance, 07/30/19 11:47:00 EDT, Tablet, [facility], 158.5, cm, 07/29/19 10:33:00 [...] Refills, Maintenance, 06/03/19 10:55:00 EDT, Tablet, [facility], 1 tablet By Mouth Daily, 158.5, cm, 04/09/19 15:02:00 EST, Height, 84, kg, 10/05/18 2:07:00 EDT, Dry Weight Start Date: 06/03/19 Status: OrderedVitamin C 500 mg oral tablet 1 tablet = 500 mg, By Mouth, Daily, # 90 tablet, 0 Refills, Maintenance, 10/14/19 14:32:00 EDT, Tablet, [facility], 158.5, cm, 08/27/19 12:39:00 EDT, Height, [...] 81, WNL, 01/02/13.2skin test pos: mold, trees, [id number] Renae [id number] pantozapole,5[facility] audiology Social History Social History Type Response Smoking Status Former smoker; Tobacco user in household: No; Type: Cigarettes; Tobacco use times per day: UP TO 3 PPD; Stopped at age: 52; entered on: 04/14/14 Sex
--- OUTSIDE RECORDS SUMMARY | 2022-03-26 02:48 | XMS_ITS | Continuity of Care Document ---
:1960 Author Organization [facility] Address [address] [place] [address]- Care Team Providers Name Role Phone Cami Isaca MD Primary Care Physician Encounter [facility] Date(s): 01/17/19 - 01/27/19 [facility] [address] [place] [id number]- [facility] Attending Physician: Tiffany Denney Admitting Physician: AdmTiffany farrell Referring Physician: AdmtrTiffany Allergies, Adverse Reactions, Alerts [...] P atient Refuses 1Result Comment: [12/05/2017] [facility] [place]#[id number] Comment: [11/23/2016] [facility] # [id number] Comment: [12/11/2013] vis [id number] Comment: [11/23/2016] [facility] # [id number] Comment: [04/09/2014] pt stated that she was [...] 12/13/18 14:09:00 EDT Start Date: 12/13/18 Status: OrderedAllegra = 360 mg, By Mouth, [...] dx e11.9, Compound Start Date: 08/14/17 Status: OrderedGas-X = 80 mg, 3 times [...] 11/06/18 15:21:23 EDT, Route to Pharmacy Electronically, [id number], [facility] Start Date: 11/06/18 Stop Date: 11/11/18 [...] 04/27/17 Status: Orderedlisinopril 10 mg oral tablet See Instructions, # 30 tablet, Refills 2 Tot. Refills 2, TAKE ONE (1) TABLET BY MOUTH ONCE DAILY, [facility] Start Date: 08/06/18 Status: Orderedmeclizine 25 mg oral tablet 1 [...] BY MOUTH ONCE DAILY IN THE EVENING., [facility] Start Date: 10/31/18 Status: OrderedMultivitamin Daily, [...] 06/18/18 13:37:18 EDT, Route to Pharmacy Electronically, [id number], [facility] Start Date: 06/18/18 Status: OrderedOrthopedic shoes [...] Maintenance, 08/22/16 14:18:07, Route to Pharmacy Electronically, [id number], [facility] Start Date: 08/22/16 Stop Date: 08/17/17 [...] 07/23/18 13:46:52 EDT, Route to Pharmacy Electronically, [id number], [facility] Start Date: 07/23/18 Status: OrderedSpiriva Respimat [...] 13:54:42 EST, Tablet Start Date: 12/26/17 Status: OrderedVentolin 90 mcg Inhaler 2, puffs, Inhalation, 4 times a day, Refills 0, Maintenance, 12/13/18 14:08:36 EDT Start Date: 12/13/18 Status: OrderedVitamin B Complex with Folic Acid [...] 81, WNL, 01/02/13.2skin test pos: mold, trees, [id number] Renae Zfipooicct6dmewocq pantozapole,5[facility] audiology Social History Social History Type Response Smoking Status Former smoker; Tobacco user in household: No; Type: Cigarettes; Tobacco use times per day: UP TO 3 PPD; Stopped at age: 52; entered on: 04/14/14 Sex
--- OUTSIDE RECORDS SUMMARY | 2022-03-26 02:48 | XMS_ITS | Continuity of Care Document ---
:1960 Author Organization [facility] nter Address [address] [place] [address]- Care Team Providers Name Role Phone Steve RUBALCAVA, Clare Busby Primary Care Physician [place] [facility] [place] - 12/26/[address] [address]- Encounter Diagnosis Depression (Final) - 12/25/21 Discharge Disposition: A-D/C Home Attending Physician: Sasha [...] Date Status Refusal Reason pneumococcal 23-valent vaccine 9/9/13 Not Given P atient Refuses 1Result Comment: [facility]:[id number] Comment: [12/05/2017] [facility] [place] [facility][id number] Result Comment: [11/23/2016] [facility] # [id number] Comment: [12/11/2013] vis [id number] Comment: [11/23/2016] [facility] # [id number] Comment: [04/09/2014] pt stated that she was never given the pneumo vaccine. pneumo given today Result Comment: [04/09/2014] PT CLEARLY STATED THAT SHE WAS NEVER OFFERED OR GIVEN THE PNEUMO VACCINE. PT HAS ASTHMA, SO VACCINE WAS GIVEN PER KATHIE[04/09/2014 Uncharted] enterred in error Medications Abilify 5 mg oral tablet See Instructions, 2 tablet By Mouth Daily, Refills 0, Maintenance, 01/15/17 13:19:45 EST, Instructions Replace Required Details Start Date: 01/15/17 Status: OrderedAllegra = 360 mg, By Mouth, 2 times a day, 0 Refills, Maintenance, 01/24/17 10:14:10 Start Date: 01/24/17 Status: Orderedaspirin 81 mg oral capsule 1 capsule = 81 mg, By Mouth, Every 4 hours, 0 Refills, Maintenance, 12/25/21 22:59:00 EST, Partial fill upon patient request if the prescription is for a schedule II opioid drug. Start Date: 12/25/21 Status: OrderedcarBAMazepine 100 mg oral capsule, extended release 4 capsule = 400 mg, By Mouth, 2 times a day, # 60 capsule, 0 Refills, Maintenance, 12/25/21 22:49:00EST, CR Capsule, Partial fill upon patient request if the prescription is for a schedule II opioid drug. Start Date: 12/25/21 Status: Orderedcholecalciferol 1000 intl units oral tablet 2 tablet = 2,000 International_Units, By Mouth, Daily, # 180 tablet, 3 Refills, Maintenance, 07/10/19 13:08:00 EDT, Tablet, [facility], 158.5, cm, 07/01/19 12:34:00 EDT, Height, 84, kg, 10/05/18 2:07:00 EDT, Dry Weight Start Date: 07/10/19 Stop Date: 07/04/20 Status: OrderedDicyclomine = 20 mg, QID PRN, 0 Refills, Maintenance, 07/31/19 11:13:00 EDT Start Date: 07/31/19 Status: Orderedestradiol 1 mg oral tablet 1, tablet, By Mouth, Daily, # 90 tablet, Refills 0, Tot. Refills 0, Maintenance, 06/21/20 12:46:00 EDT, Route to Pharmacy Electronically, [facility], 155, cm, 06/18/20 0:35:00 EDT, Height, 80, kg, 06/18/20 0:35:00 EDT, Dry Weight Start Date: 06/21/20 Status: Orderedgabapentin 800 mg oral tablet 1 tablet = 800 mg, By Mouth, 2 times a day, # 90 tablet, 0 Refills, Maintenance, 12/25/21 22:42:00 EST, Tablet, Partial fill upon patient request if the prescription is for a schedule II opioid drug. Start Date: 12/25/21 Status: OrderedhydrOXYzine hydrochloride 25 mg oral tablet [...] 1 Refills, Maintenance, 01/12/20 9:22:00 EST, Tablet, [facility], 158.5, cm, 01/07/20 15:56:00 EST, Height, 84, kg, 08... Start Date: 01/12/20 Status: OrderedIncruse Ellipta 62.5 mcg/inh inhalation powder 1 each, Inhalation, Every 24 hours, doses should be taken at least 24 hours apart, # 30 each, 0 Refills, Maintenance, 12/25/21 22:57:00 EST, Powder, Partial fill upon patient request if the prescription is for a schedule II opioid drug. Start Date: 12/25/21 Status: OrderedLactaid Fast Action 9000 units oral tablet 1 tab, Daily, PRN, 0 Refills, Maintenance, 12/25/21 22:57:00 EST, Partial fill upon patient request if the prescription is for a schedule II opioid drug. Start Date: 12/25/21 Status: Orderedlisinopril 10 mg oral tablet 10 mg, 1, tablet, By Mouth, Daily, # 30 tablet, Refills 5, Tot. Refills 5, Soft Stop, 11/06/19 10:32:00 EDT, Route to Pharmacy Electronically, [facility], 158.5, cm, 11/04/19 8:30:00 EDT, Height,84, kg, 10/05/18 2:07:00 EDT, Dry Weight Start Date: 11/06/19 Status: Orderedmeclizine 25 mg oral tablet 1 tablet = 25 mg, By Mouth, 4 times a day, PRN for dizziness, # [...] 5 Refills, Maintenance, 04/09/2111:50:00 EST, ER Tablet, [facility], 156, cm, 01/22/20 18:13:00 EST, Height, 85, kg, 01/22/20 18:13:00 EST, Dry Weight Start Date: 04/09/20 Status: Orderedmontelukast 10 mg oral tablet See Instructions, # 90 tablet, Refills 1 Tot. Refills 1, TAKE ONE (1) TABLET BY MOUTH ONCE DAILY IN THE EVENING., [facility] Start Date: 10/31/18 Status: Orderedmultivitamin Vitamin B Complex oral capsule 1 capsule, By Mouth, Daily, # 90 capsule, 0 Refills, Maintenance, 06/17/20 9:47:00 EDT, Capsule, [facility], Partial fill upon patient request if the prescription is for a schedule II opioid drug., 1 capsule By Mouth Daily, 156, cm, 01/22/20 18:... Start Date: 06/17/20 Status: Orderedondansetron 4 mg oral tablet, disintegrating 1 tablet = 4 mg, By Mouth, 3 times a day, PRN as needed for nausea/vomiting, # 10 tablet, 0 Refills,Soft Stop, 09/28/21 0:26:00 EDT, DIS Tablet, [facility]/pharmacy #[id number], Partial fill upon patient request if the prescription is for a schedule II opioid moriah... Start Date: 09/28/21 Stop Date: 10/01/21 Status: Orderedpantoprazole 40 mg oral delayed release tablet 40 mg, By Mouth, 2 times a day, # 180 each, Refills 3, Tot. Refills 3, Maintenance, 08/22/16 14:18:07, Route to Pharmacy Electronically, [id number], [facility] Start Date: 08/22/16 Stop Date: 08/17/17 Status: Orderedprazosin 1 mg oral capsule 2 mg, Capsule, By Mouth, 12/25/21 23:43:00 EST Start Date: 12/25/21 Stop Date: 12/26/21 Status: Completedprazosin 2 mg oral capsule 2 capsule = 4 mg, By Mouth, Daily at bedtime, # 90 capsule, 0 Refills, Maintenance, 12/25/21 22:54:00 EST, Capsule, Partial fill upon patient request if the prescription is for a schedule II opioid drug. Start Date: 12/25/21 Status: OrderedRisperDAL 3 mg oral tablet 3 mg, 1, tablet, By Mouth, Daily in AM, # 30 tablet, Refills 0, Maintenance, 12/25/21 22:28:00 EST, Partial fill upon patient request if the prescription is for a schedule II opioid drug. Start Date: 12/25/21 Status: OrderedRisperidone = 9 mg, By Mouth, Daily at bedtime, 0 Refills, Maintenance, 05/08/18 14:51:59 EDT Start Date: 05/08/18 Status: OrderedrOPINIRole 0.25 mg oral tablet 1 tablet = 0.25 mg, By Mouth, Daily at bedtime, 0 Refills, Maintenance, 12/25/21 22:55:00 EST, Partial fill upon patient request if the prescription is for a schedule II opioid drug. Start Date: 12/25/21 Status: OrderedTopamax 100 mg oral tablet 1 [...] for total 150 mg twice daily. Neurologist, [facility], # 180 tablet, 0 Refills, Maintenance, 01/24/17 10:13:43 EST, Tablet Start Date: 01/24/17 Status: OrderedVitamin B Complex with Folic Acid oral tablet 1 tablet, By Mouth, Daily, # 90 tablet, 3 Refills, Maintenance, 06/03/19 10:55:00 EDT, Tablet, [facility], 1 tablet By Mouth Daily, 158.5, cm, 04/09/19 15:02:00 EST, Height, 84, kg, 10/05/18 2:07:00 EDT, Dry Weight Start Date: 06/03/19 Status: OrderedVitamin C 500 mg oral tablet 1 tablet = 500 mg, By Mouth, Daily, # 90 tablet, 0 Refills, Maintenance, 01/12/20 14:32:00 EST, Tablet, [facility], 158.5, cm, 01/07/20 15:56:00 EST, Height, 84, kg, 10/05/18 2:07:00 EDT, Dry Weight Start Date: 01/12/20 Stop Date: 04/11/20 Status: OrderedWixela Inhub 500 mcg-50 mcg inhalation powder 1 inhalation, Inhalation, 2 times a day, rinse mouth and throat after use, 0 Refills, Maintenance, 12/25/21 22:59:00 EST, Powder, Partial fill upon patient request if the prescription is for a scheduleII opioid drug. Start Date: 12/25/21 Status: Ordered Problem List Condition Confirmation Course Effective Dates Status Health I nformant Status Abdominal pain Confirmed Active Atopy1, 2 Confirmed 05/05/10 Active Back pain Confirmed Active Bipolar disorder3 Confirmed Active COPD - Chronic Confirmed Active obstructive pulmonary disease Diabetes mellitus Confirmed Active Current use of Confirmed Active estrogen therapy GERD - Confirmed Active Gastro-esophageal reflux disease4 H/O: prolonged Confirmed Active corticosteroid therapy Hearing loss5 Confirmed Active S/P total Confirmed Active hysterectomy and bilateral salpingo-oophorectomy Hypertension Confirmed Active Kidney stones Confirmed Active Knee pain, right- Confirmed Active 08/29/13 Xray showed loss of medial meniscus Hx of long-term Confirmed Active (current) use of postmenopausal hormone replacement therapy UTI (lower urinary Confirmed Active tract infection) Menopausal state Confirmed Active Migraine Confirmed Active OA - Osteoarthritis Confirmed Active Obese class II Confirmed Active Obesity Confirmed Active Pelvic pain in female Confirmed Active Pernicious anemia Confirmed Active PTSD (post-traumatic Confirmed Active stress disorder) Seasonal allergies Confirmed Active Shoulder pain, left Confirmed Active Shoulder pain, right Confirmed Active MRSA colonization Confirmed Active Vertigo Confirmed Active 1RAST 36 ALLERGENS, ALL 0, EXC 3+ ROACHES. IGE 83, WNL, 01/02/13.2skin test pos: mold, trees, [id number] Renae Flcpksogid2axfwjno pantozapole,5[facility] Vital Signs Most recent to oldest 1 2 3 [Reference Range]: Height 155 cm (12/25/21 7:55 PM) Weight 84 kg (12/25/21 7:55 PM) Oxygen Saturation [94-100 96 % 94 % 96 % %] (12/26/21 8:18 AM) (12/25/21 11:06 PM) (12/25/21 7:55 PM) Pulse Rate [55-90 bpm] 104 bpm 78 bpm 84 bpm *H* (12/25/21 11:06 PM) (12/25/21 7: 55 PM) (12/26/21 8:18 AM) Blood Pressure 114/49 mm Hg 115/68 mm Hg 115/46 mm Hg [90-138/55-84 mm Hg] (12/26/21 8:18 AM) (12/26/21 12:59 AM) ( 11:06 PM) Respiratory Rate [16-30 18 br/min 16 br/min 17 br/mi n br/min] (12/26/21 8:18 AM) (12/26/21 5:01 AM) (12/26/21 3:00 AM) Temperature [96.8-100.4 97.6 DegF 97.7 DegF 97.8 Deg F DegF] (12/26/21 8:18 AM) (12/25/21 11:06 PM) (12/25/21 7:55 PM) Mode of Delivery (Oxygen) Room air Room air Room a ir (12/26/21 8:18 AM) (12/25/21 11:06 PM) (12/25/21 7:55 PM) Blood pressure sites Arm, right Arm, right (12/25/21 11:06 PM) (12/25/21 7:55 PM) Temperature Route Temporal Oral Temporal (12/26/21 8:18 AM) (12/25/21 11:06 PM) (12/25/21 7:55 PM) Dry Weight 84 kg (12/25/21 7:55 PM) Social History Social History Type Response Smoking Status Former smoker; Tobacco user in household: No; Type: Cigarettes; Tobacco use times per day: UP TO 3 PPD; Stopped at age: 52; entered on: 04/14/14 Sex Note Sasha Montes De Oca MD: PERFORM Event Display: Patient Education Leaflets Authored Date: [id number] Depression ?? [id number] Depression Depression is a very common mental health problem. It's not just a state of being unhappy or sad. It's a true disease. The cause seems to be linked to a change in chemicals that send signals in the brain. These things increase a person???s risk of depression: ??? A family history of depression, alcoholism, or suicide ??? Chronic illness ??? Chronic pain ???Migraine headaches ??? High emotional stress Depression may be easier to see in others. You may have a hard time seeing it in yourself. It can show in many physical and emotional ways. These include: ??? Loss of appetite ??? Overeating ??? Not being able to sleep ??? Sleeping too much ??? A lot of tiredness not linked to physical activity ??? Restlessness or irritability ??? Slowness of movement or speech ??? Feeling sad or withdrawn ??? Loss of interest in things you once enjoyed ??? Trouble??concentrating, remembering,??or making decisions ??? Thoughts of harming or killing yourself, or thoughts that life is not worth living ??? Low self-esteem The treatment for depression may include both medicine and psychotherapy. Antidepressants can ease symptoms. They can also make it easier for you to do daily tasks. Therapy can offer emotional support. It can also help you understand things that may be causing the depression. Home care ??? Ongoing care and support help people manage this disease. Find a healthcare provider and therapist who meet your needs. Get help when you feel like you may be getting ill. ??? Be kind toyourself. Make it a point to do things that you enjoy. This may be gardening, walking in nature, or going to a movie. Reward yourself for small successes. ??? Take care of your body. Eat a balanced diet. Eat foods low in saturated fat. Eat a lot of fruits and vegetables. Exercise at least 3 times a week for 30 minutes. Even mild to moderate exercise like brisk walking can make you feel better. ??? Take medicine as prescribed. Don't stop your medicine or change the dose unless you talk with your healthcare provider. ??? Once you start medicine, expect your symptoms to get better slowly. Depression will lift over time. It doesn't get better right away. Ask your healthcare provider how long it will take for a medicine to start working. ??? Don't share your medicine. Don???t use someone else's medicine. ??? Tell your healthcare providers all the medicines you take. This includes prescription and lbij-psd-oqkstst medicines. It includes vitamins and herbal supplements. Some supplements can interact with medicines. They can cause dangerous side effects. Ask your pharmacist about medicine interactionswhen you have questions. ??? Don't make major decisions until you feel better. This includes things such as a job change, a divorce, or a marriage. ??? Don't drink alcohol. It can make depression worse. ??? Talk with your family and??trusted friends??about your feelings and thoughts.??Ask them to helpyou notice behavior changes early. You can then get help and, if needed, your medicine can be changed. ??? Talk with your healthcare provider if you are not getting better. They may change your medicine or have you try another treatment. ?? Follow-up care Follow up with your healthcare provider as advised. ?? Crisis care Call 988 if you have thoughts of harming yourself or others. When you call or text [phone], you will beconnected to trained crisis counselors. An online chat option is also available. [employer] Playlist is free and available 04/09. 988 counselors will work with 911 to help you get the care you need. Call 988 if you: ??? Have suicidal thoughts, a suicide plan, and a way to carry out the plan ??? Have serious thoughts of hurting someone else ??? Have trouble breathing ??? Are??very confused ??? Feel very drowsy or have??trouble awakening ??? Faint ??? Have new chest pain that becomes more severe, lasts longer, or spreads into your shoulder, arm, neck, jaw, or back ?? When to get medical care Call your healthcare provider right away if any of these happen: ??? Your symptoms get worse ??? You have extreme depression, fear, anxiety, or anger toward yourself or others ??? You feel out of control ??? You feel that you may try to harm yourself or another ??? You hear voices other people don't hear ??? You see things other people don't see ??? You don't sleep or eat for 3 days in a row ??? Friends or family express concern over your behavior and ask you to get help ?? Last Reviewed Date: 2021 ?? [id number] [employer]. All rights reserved. This information is not intended as a substitute for professional medical care. Always follow your healthcare professional's instructions. ?? Patient Care team information Care Team PersonnelName: Roxana MAHARAJ, Jakub Position: S RN Member Role: Primary Care Nurse Name: Clare Wilson MD Position: Reference Physician Member Role: PCP Address: Address: [address] [place] [address]- Name: Brittany Mello MD Position: S ROLL FORMING SUPERVISOR MD Member Role: [employer] ROLL FORMING SUPERVISOR Physician Address: Address: [address] [place] [address] [place] [address]- [place] Name: Hernandez ÓscarOrthodoxy Position: [facility] Outreach Member Role: [employer] Consulting Physician Name: Sasha Montes De Oca MD Position: [facility] ED Medicine MD Member Role: Admitting Physician Address: Address: [address] [place] [id number]- Name: Postema Luis MAHARAJ Position: [facility] ED RN W/OE and Tasks Member Role: Patient Care Provider Care Team Related PersonsName: ELVIA CANTU Address: home [facility] [address]
--- OUTSIDE RECORDS SUMMARY | 2022-03-26 02:48 | XMS_ITS | Continuity of Care Document ---
:1960 Author Organization [facility] Address [address] [place] [address]- Care Team Providers Name Role Phone Amilcar Hadley MD Primary Care Physician [place] [facility] [place]19 [facility] [address] [place] [address]- [facility] Attending Physician: Amilcar Hadley MD Allergies, [...] 1Result Comment: [12/05/2017] [facility]#[id number] Comment: [11/23/2016] [facility] # [id number] Comment: [12/11/2013] vis [id number] Comment: [11/23/2016] [facility] # [id number] Comment: [04/09/2014] pt stated that she was [...] 02/13/2014:55:00 EST, Inhaler, Route to Pharmacy Electronically, [id number], [facility], 154.94, cm, 02/07/19 11:53:00 [...] 3 Refills, Maintenance, 07/10/19 13:08:00 EDT, [facility], 158.5, cm, 07/01/19 12:34:00 EDT, Height, [...] 0 Refills, Maintenance, 08/28/19 11:01:00 EDT, Capsule, [facility], 1 capsule By Mouth Daily, 158.5, [...] Refills, Soft Stop, 10/02/19 12:24:00 EDT, Tablet, [facility], 158.5, cm, 08/27/19 12:39:00 EDT, Height, 84, kg, 10/05/18 2:07:00 EDT, Dry Weight Start Date: 10/02/19 Status: Orderedepinephrine 0.3 mg injectable solution 0 Refills, Maintenance, 12/13/18 14:05:43 EDT Start Date: 12/13/18 Status: OrderedEstrace 1 mg oral tablet 1 mg, 1, tablet, By Mouth, Daily, # 90 tablet, Refills 1, Tot. Refills 1, Maintenance, 11/12/19 16:44:00 EDT, Route to Pharmacy Electronically, [facility] [...] 08/14/19 16:44:00 EDT, Route to Pharmacy Electronically, [facility], 158.5,cm, 07/29/19 10:33:00 EDT, [...] 08/19/19 8:20:00 EDT, [facility] Pharmacy Electronically, [facility] [...] 11/06/19 12:00:00 EDT, Route to Pharmacy Electronically, [facility], 158.5, cm, 11/06/19 10:48:00 EDT, Heig... Start Date: 11/06/19 Stop Date: 11/20/19 Status: OrderedImitrex 100 mg oral tablet 1 tablet = 100 mg, By Mouth, Daily, PRN for migraine headache, may repeat dose after 2 hours up to amaximum of 2, # 9 tablet, 1 Refills, Maintenance, 10/14/19 15:06:00 EDT, Tablet, [facility] [...] 11/06/19 10:32:00 EDT, Route to Pharmacy Electronically, [facility], 158.5, cm, 11/04/19 8:30:00 [...] 5 Refills, Maintenance, 10/17/2011:57:00 EDT, ER Tablet, [facility] [...] 06/18/18 13:37:18 EDT, Route to Pharmacy Electronically, [id number], [facility] Start [...] Maintenance, 08/22/16 14:18:07, Route to Pharmacy Electronically, [id number], [facility] Start [...] 1 Refills, Maintenance, 11/06/19 11:59:00 EDT, [facility]t, [facility], 158.5, cm, 11/06/19 10:48:00 EDT,Height, 84, kg, 10/05/18 2:07:00 EDT, Dry Weight Start Date: 11/06/19 Status: OrderedVitamin B Complex with Folic Acid oral tablet 1 tablet, By Mouth, Daily, # 90 tablet, 3 Refills, Maintenance, 06/03/19 10:55:00 EDT, Tablet, [facility], 1 tablet By Mouth Daily, 158.5, cm, 04/09/19 15:02:00 EST, Height, 84, kg, 10/05/18 2:07:00 EDT, Dry Weight Start Date: 06/03/19 Status: OrderedVitamin C 500 mg oral tablet 1 tablet = 500 mg, By Mouth, Daily, # 90 tablet, 0 Refills, Maintenance, 10/14/19 14:32:00 EDT, Tablet, [facility], 158.5, cm, 08/27/19 12:39:00 EDT, Height, [...] 81, WNL, 01/02/13.2skin test pos: mold, trees, [id number] Renae Ncpkpyiobm1lyhtcch pantozapole,5[facility] Social History Social History Type Response Smoking Status Former smoker; Tobacco user in household: No; Type: Cigarettes; Tobacco use times per day: UP TO 3 PPD; Stopped at age: 52; entered on: 04/14/14 Sex
--- OUTSIDE RECORDS SUMMARY | 2022-03-26 02:48 | XMS_ITS | Continuity of Care Document ---
:1960 Author Organization [facility] Address [address] [place] [address]- Care Team Providers Name Role Phone Jomar RUBALCAVA, Amilcar Primary Care Physician Encounter [facility] [place] Date(s): 06/18/19 - 06/25/19 [facility] [address] [place] [address]- [facility] Encounter Diagnosis COPD - Chronic obstructive pulmonary disease (Discharge Diagnosis) - 06/18/19 Asthma (Discharge Diagnosis) - 06/18/19 Seasonal allergies (Discharge Diagnosis) - 06/18/19 Attending Physician: Keon D[employer], Crystal Allergies, Adverse Reactions, Alerts Substance Reaction [...] Given P atient Refuses 1Result Comment: [12/05/2017] [facility]#[id number] Comment: [11/23/2016] [facility] # [id number] Comment: [12/11/2013] vis [id number] Comment: [11/23/2016] [facility] # [id number] Comment: [04/09/2014] pt stated that she was [...] 02/13/2014:55:00 EST, Inhaler, Route to Pharmacy Electronically, [id number], [facility], 154.94, cm, 02/07/19 11:53:00 [...] 0 Refills, Maintenance, 02/26/19 10:39:00 EST, Capsule, [facility], 1 capsule By Mouth Daily, 154.94, [...] 05/16/19 16:44:00 EDT, Route to Pharmacy Electronically, [facility] [...] 03/27/19 16:29:00 EST, Route to Pharmacy Electronically, [facility], 158.5, cm, 03/18/19 11:38:00 EST, Height, [...] 02/26/19 10:41:00 EST, Route to Pharmacy Electronically, [facility], 154.94, cm, 02/26/19 10:16:00 EST, Hei... [...] 6 Refills, Maintenance, 02/28/2010:35:00 EST, ER Tablet, [facility], 158.5, cm, 02/27/19 13:31:00 [...] 06/18/18 13:37:18 EDT, Route to Pharmacy Electronically, [id number], [facility] Start Date: 06/18/18 Status: OrderedOrthopedic [...] Maintenance, 08/22/16 14:18:07, Route to Pharmacy Electronically, [id number], [facility] Start Date: 08/22/16 Stop Date: 08/17/17 [...] 07/23/18 13:46:52 EDT, Route to Pharmacy Electronically, [id number], [facility] Start Date: 07/23/18 Status: [...] 07/21/19 12:45:00 EDT, 06/20/19 12:43:00 EDT, Tablet, [facility], 158.5, cm, 06/18/19 13:31:00 [...] 0 Refills, Maintenance, 05/26/19 14:13:00 EDT, Tablet, [facility], [...] 3 Refills, Maintenance, 06/03/19 10:55:00 EDT, Tablet, [facility], 1 tablet By Mouth Daily, 158.5, cm, 04/09/19 15:02:00 EST, Height, 84, kg, 10/05/18 2:07:00 EDT, Dry Weight Start Date: 06/03/19 Status: OrderedVitamin C 500 mg oral tablet 1 tablet = 500 mg, By Mouth, Daily, # 90 tablet, 0 Refills, Maintenance, 06/20/19 8:43:00 EDT, Tablet, [facility], 158.5, cm, 06/18/19 13:31:00 EDT, Height, [...] 81, WNL, 01/02/13.2skin test pos: mold, trees, bnstr5By Renae Bpvseiyxrq5hbzjzkx pantozapole,5[facility] Diagnosis Diagnosis Type Effective Dates Health Clinical Infor [facility] Status Service Asthma Discharge 06/18/19 Diagnosis Seasonal allergies Discharge 06/18/19 Diagnosis COPD - Chronic Discharge 06/18/19 obstructive Diagnosis pulmonary disease Vital Signs Most recent to oldest [Reference Range]: 1 Height 158.5 cm (06/18/19 1:31 PM) Social History Social History Type Response Smoking Status Former smoker; Tobacco user in household: No; Type: Cigarettes; Tobacco use times per day: UP TO 3 PPD; Stopped at age: 52; entered on: 04/14/14 Sex
--- OUTSIDE RECORDS SUMMARY | 2022-03-26 02:48 | XMS_ITS | Continuity of Care Document ---
:1960 Author Organization [facility] Address [address] [place] [address]- Care Team Providers Name Role Phone Amilcar Hadley MD Primary Care Physician Encounter [facility] Date(s): 11/19/19 - 11/26/19 [facility] [address] [place] [address]- [facility] Encounter Diagnosis Diabetes mellitus (Discharge Diagnosis) - 11/19/19 Carpal tunnel syndrome (Discharge Diagnosis) - 11/19/19 Attending Physician: Amilcar Hadley MD Allergies, Adverse [...] Not Given P atient Refuses 1Result Comment: NDC:[id number] Comment: [12/05/2017] [facility]#[phone] Result Comment: [11/23/2016] [facility] # [id number] Comment: [12/11/2013] vis [id number] Comment: [11/23/2016] [facility] # [id number] Comment: [04/09/2014] pt stated that she was [...] 02/13/2014:55:00 EST, Inhaler, Route to Pharmacy Electronically, [id number], [facility], 154.94, cm, 02/07/19 11:53:00 EST, [...] 0 Refills, Maintenance, 08/28/19 11:01:00 EDT, Capsule, [facility] [...] Instructions Replace Required Details,Route to Pharmacy Electronically, [facility] Start Date: 11/21/19 Status: OrderedGas-X [...] 11/06/19 12:00:00 EDT, Route to Pharmacy Electronically, [facility], 158.5, cm, 11/06/19 10:48:00 EDT, Heig... Start Date: 11/06/19 Stop Date: 11/20/19 Status: OrderedImitrex 100 mg oral tablet 1 tablet = 100 mg, By Mouth, Daily, PRN for migraine headache, may repeat dose after 2 hours up to amaximum of 2, # 9 tablet, 1 Refills, Maintenance, 11/21/19 13:47:00 EDT, Tablet, [facility], 158.5, cm, 11/19/19 15:50:00 EDT, [...] 06/18/18 13:37:18 EDT, Route to Pharmacy Electronically, [id number], [facility] [...] Maintenance, 08/22/16 14:18:07, Route to Pharmacy Electronically, [id number], [facility] Start Date: 08/22/16 Stop Date: [...] 1 Refills, Maintenance, 11/06/19 11:59:00 EDT, Tablet, [facility], 158.5, cm, 11/06/19 10:48:00 EDT,Height, 84, kg, 10/05/18 2:07:00 EDT, Dry Weight Start Date: 11/06/19 Status: OrderedVitamin B Complex with Folic Acid oral tablet 1 tablet, By Mouth, Daily, # 90 tablet, 3 Refills, Maintenance, 06/03/19 10:55:00 EDT, Tablet, [facility], 1 tablet By Mouth Daily, 158.5, cm, 04/09/19 15:02:00 EST, Height, 84, kg, 10/05/18 2:07:00 EDT, Dry Weight Start Date: 06/03/19 Status: OrderedVitamin C 500 mg oral tablet 1 tablet = 500 mg, By Mouth, Daily, # 90 tablet, 0 Refills, Maintenance, 10/14/19 14:32:00 EDT, Tablet, [facility], 158.5, cm, 08/27/19 12:39:00 EDT, Height, [...] 81, WNL, 01/02/13.2skin test pos: mold, trees, [id number] Renae Actcvgdxzh0vehoejf pantozapole,5HP[facility] aud[facility] Diagnosis Diagnosis Type Effective Dates Health Status Clinical In formant Service Diabetes Discharge 11/19/19 mellitus Diagnosis Carpal tunnel Discharge 11/19/19 syndrome Diagnosis Vital Signs Most recent to oldest [Reference Range]: 1 Height 158.5 cm (11/19/19 3:50 PM) Oxygen Saturation [94-100 %] 99 % (11/19/19 3:50 PM) Pulse Rate [55-90 bpm] 67 bpm (11/19/19 3:50 PM) Blood Pressure [90-138/55-84 mm Hg] 136/74 mm Hg (11/19/19 3:50 PM) Mode of Delivery (Oxygen) Room air (11/19/19 3:50 PM) Blood pressure sites Arm, left (11/19/19 3:50 PM) Social History Social History Type Response Smoking Status Former smoker; Tobacco user in household: No; Type: Cigarettes; Tobacco use times per day: UP TO 3 PPD; Stopped at age: 52; entered on: 04/14/14 Sex
--- OUTSIDE RECORDS SUMMARY | 2022-03-26 02:48 | XMS_ITS | Continuity of Care Document ---
:1960 Author Organization [facility] Address [address] [place] [address]- Care Team Providers Name Role Phone Amilcar Hadley MD Primary Care Physician Encounter [facility] Date(s): 08/04/19 - 08/11/19 [facility] [address] [place] [address] Encounter Diagnosis Left groin pain (Discharge Diagnosis) - 08/04/19 Attending Physician: Rina Moura MD Allergies, Adverse Reactions, Alerts Substance Reaction [...] P atient Refuses 1Result Comment: [12/05/2017] [facility]#[id number] Comment: [11/23/2016] [facility] # [id number] Comment: [12/11/2013] vis [id number] Comment: [11/23/2016] [facility] # [id number] Comment: [04/09/2014] pt stated that she was [...] 02/13/2014:55:00 EST, Inhaler, Route to Pharmacy Electronically, [id number], [facility], 154.94, cm, 02/07/19 11:53:00 EST, He... Start Date: 02/13/19 Status: OrderedAlbuterol/Ipratropium 0 Refills, Maintenance Start Date: 07/31/19 Status: OrderedAllegra = 360 mg, By Mouth, 2 times a day, 0 Refills, Maintenance, 01/24/17 10:14:10 Start Date: 12/13/17 Status: OrderedAuto injector Freestyle lite for lancets Auto injector Freestyle lite for lancets, See Instructions, # 1 units, Refills 0, Tot. Refills 0, Maintenance, E11.9 test blood sugars daily as instructed, 01/10/18 10:17:47 EST, Compound Start Date: 01/10/18 Status: Orderedcholecalciferol 1000 intl units oral tablet 2 tablet = 2,000 International_Units, By Mouth, Daily, # 180 tablet, 3 Refills, Maintenance, 07/10/19 13:08:00 EDT, Tablet, [facility], 158.5, cm, 07/01/19 12:34:00 EDT, Height, [...] Refills, Maintenance, 02/26/19 10:39:00 EST, Capsule, [facility], 1 capsule By Mouth Daily, 154.94, [...] Refills, Maintenance, 07/29/19 15:59:00 EDT, EC Tablet, [facility], 158.5, cm, 07/29/19 10:33:00 EDT, Height, [...] [facility], 158.5,cm, 04/09/19 15:02:00 EST, Height, 84, [...] BY MOUTH ONCE DAILY IN THE EVENING., [facility] Start Date: 10/31/18 Status: OrderedOne Touch [...] 06/18/18 13:37:18 EDT, Route to Pharmacy Electronically, [id number], [facility] Start Date: 06/18/18 Status: OrderedOrthopedic shoes [...] Maintenance, 08/22/16 14:18:07, Route to Pharmacy Electronically, [id number], [facility] Start Date: 08/22/16 Stop Date: 08/17/17 [...] 07/23/18 13:46:52 EDT, Route to Pharmacy Electronically, [id number], [facility] [...] 3 Refills, Maintenance, 06/03/19 10:55:00 EDT, Tablet, [facility], 1 tablet By Mouth Daily, 158.5, cm, 04/09/19 15:02:00 EST, Height, 84, kg, 10/05/18 2:07:00 EDT, Dry Weight Start Date: 06/03/19 Status: OrderedVitamin C 500 mg oral tablet 1 tablet = 500 mg, By Mouth, Daily, # 90 tablet, 0 Refills, Maintenance, 06/20/19 8:43:00 EDT, Tablet, [facility], 158.5, cm, 06/18/19 13:31:00 [...] 81, WNL, 01/02/13.2skin test pos: mold, trees, gsnuw2In Renae Dftdfqztls4erocxnk pantozapole,5[facility] audiology Diagnosis Diagnosis Type Effective Dates Health Status Clinical In formant Service Left groin pain Discharge 08/04/19 Diagnosis Vital Signs Most recent to oldest [Reference Range]: 1 Height 158.5 cm (08/04/19 4:24 PM) Oxygen Saturation [94-100 %] 98 % (08/04/19 4:24 PM) Pulse Rate [55-90 bpm] 72 bpm (08/04/19 4:24 PM) Blood Pressure [90-138/55-84 mm Hg] 92/60 mm Hg (08/04/19 4:24 PM) Respiratory Rate [16-30 br/min] 18 br/min (08/04/19 4:24 PM) Temperature [96.8-100.4 DegF] 97.2 DegF (08/04/19 4:24 PM) Blood pressure sites Arm, right (08/04/19 4:24 PM) Temperature Route Temporal (08/04/19 4:24 PM) Social History Social History Type Response Smoking Status Former smoker; Tobacco user in household: No; Type: Cigarettes; Tobacco use times per day: UP TO 3 PPD; Stopped at age: 52; entered on: 04/14/14 Sex
--- OUTSIDE RECORDS SUMMARY | 2022-03-26 02:48 | XMS_ITS | Continuity of Care Document ---
:1960 Author Organization [facility] Address [address] [place] [address]- Care Team Providers Name Role Phone Jomar RUBALCAVA, Amilcar Primary Care Physician Encounter [facility] Date(s): 01/09/20 - 02/08/20 [facility] [address] [place] [address]- Allergies, Adverse Reactions, Alerts Substance Reaction Severity [...] Not Given P atient Refuses 1Result Comment: [facility][NOTE 3]:[id number] Comment: [12/05/2017] [facility]#[id number] Result Comment: [11/23/2016] [facility] # [id number] Comment: [12/11/2013] vis [id number] Comment: [11/23/2016] [facility][NOTE 3] # [id number] Comment: [04/09/2014] pt stated that she was [...] 02/13/2014:55:00 EST, Inhaler, Route to Pharmacy Electronically, [id number], [facility], 154.94, cm, 02/07/19 11:53:00 EST, He... [...] Date: 01/10/18 Status: OrderedCentury Women's Daily Multivitamin [facility] Daily Multivitamin, 1, tablet, By Mouth, [...] Refills, Maintenance, 07/10/19 13:08:00 EDT, Tablet, [facility], 158.5, cm, 07/01/19 12:34:00 EDT, Height, [...] 0 Refills, Maintenance, 12/19/19 14:27:00 EST, Capsule, [facility], 1 capsule By Mouth Daily, 158.5, [...] Refills, Soft Stop, 10/02/19 12:24:00 EDT, Tablet, [facility], 158.5, cm, 08/27/19 12:39:00 EDT, Height, 84, kg, 10/05/18 2:07:00 EDT, Dry Weight Start Date: 10/02/19 Status: Orderedepinephrine 0.3 mg injectable solution 0 Refills, Maintenance, 12/13/18 14:05:43 EDT Start Date: 12/13/18 Status: OrderedEstrace 1 mg oral tablet 1 mg, 1, tablet, By Mouth, Daily, # 90 tablet, Refills 1, Tot. Refills 1, Maintenance, 11/12/19 16:44:00 EDT, Route to Pharmacy Electronically, [facility], 158.5, cm, 08/27/19 12:39:00 EDT, Height, [...] 0 Refills, Maintenance, 01/21/20 8:28:00 EST, Tablet, [facility], Partial fill upon patient request [...] 1 Refills, Maintenance, 01/12/20 9:22:00 EST, Tablet, [facility], 158.5, cm, 01/07/20 15:56:00 EST, Height, 84, kg, 08... Start Date: 01/12/20 Status: OrderedImitrex 100 mg oral tablet 1 tablet = 100 mg, By Mouth, Daily, PRN for migraine headache, may repeat dose after 2 hours up to amaximum of 2, # 9 tablet, 1 Refills, Maintenance, 10/14/19 15:06:00 EDT, Tablet, [facility], 158.5, cm, 08/27/19 12:39:00 EDT, Height, [...] 11/06/19 10:32:00 EDT, Route to Pharmacy Electronically, [facility], 158.5, cm, 11/04/19 8:30:00 EDT, Height,84, [...] 5 Refills, Maintenance, 10/17/2011:57:00 EDT, ER Tablet, [facility], 158.5, cm, 08/27/19 12:39:00 EDT, Height, [...] 06/18/18 13:37:18 EDT, Route to Pharmacy Electronically, [id number], [facility] [...] Maintenance, 08/22/16 14:18:07, Route to Pharmacy Electronically, [id number], [facility] Start Date: 08/22/16 Stop Date: [...] 1 Refills, Maintenance, 12/30/19 11:05:00 EST, Tablet, [facility], 158.5, cm, 12/10/19 14:54:00 EDT, Height, 84, kg, 10/05/18 2:07:00 EDT, Dry Weight Start Date: 12/30/19 Status: OrderedVitamin B Complex with Folic Acid oral tablet 1 tablet, By Mouth, Daily, # 90 tablet, 3 Refills, Maintenance, 06/03/19 10:55:00 EDT, Tablet, [facility], 1 tablet By Mouth Daily, 158.5, cm, 04/09/19 15:02:00 EST, Height, 84, kg, 10/05/18 2:07:00 EDT, Dry Weight Start Date: 06/03/19 Status: OrderedVitamin C 500 mg oral tablet 1 tablet = 500 mg, By Mouth, Daily, # 90 tablet, 0 Refills, Maintenance, 01/12/20 14:32:00 EST, Tablet, [facility], 158.5, cm, 01/07/20 15:56:00 EST, Height, 84, kg, 10/05/18 2:07:00 EDT, Dry Weight Start Date: 01/12/20 Stop Date: 04/11/20 Status: OrderedVoltaren 1% topical gel 1 application, Topically, 4 times a day, PRN for pain, # 100 Gm, 0 Refills, Maintenance, 01/07/20 16:13:00 EST, Gel, [facility], Partial fill upon patient request, 1 [...] 81, WNL, 01/02/13.2skin test pos: mold, trees, [id number] Renae Nbywhaivcz7pwoawav pantozapole,5HB[facility] audiology Social History Social History Type Response Smoking Status Former smoker; Tobacco user in household: No; Type: Cigarettes; Tobacco use times per day: UP TO 3 PPD; Stopped at age: 52; entered on: 04/14/14 Sex
--- OUTSIDE RECORDS SUMMARY | 2022-03-26 02:48 | XMS_ITS | Continuity of Care Document ---
:1960 Author Organization [facility] Address [address] [place] [address]- Care Team Providers Name Role Phone Jomar RUBALCAVA, Amilcar Primary Care Physician Encounter [facility] Date(s): 11/13/19 - 12/13/19 [facility] [address] [place] [address]- [facility] Allergies, Adverse Reactions, Alerts Substance [...] Not Given P atient Refuses 1Result Comment: [facility]:[id number] Comment: [12/05/2017] [facility]#[id number] Result Comment: [11/23/2016] [facility] # [phone] Comment: [12/11/2013] vis [id number] Comment: [11/23/2016] [facility] # [phone] Comment: [04/09/2014] pt stated that she was [...] 02/13/2014:55:00 EST, Inhaler, Route to Pharmacy Electronically, [id number], [facility], 154.94, [...] 3 Refills, Maintenance, 07/10/19 13:08:00 EDT, Tablet, [facility], 158.5, cm, 07/01/19 12:34:00 EDT, Height, [...] 0 Refills, Maintenance, 08/28/19 11:01:00 EDT, Capsule, [facility], 1 capsule By Mouth Daily, 158.5, [...] Refills, Soft Stop, 10/02/19 12:24:00 EDT, Tablet, [facility], 158.5, cm, 08/27/19 12:39:00 EDT, Height, [...] Instructions Replace Required Details,Route to Pharmacy Electronically, [facility] Start Date: 11/21/19 Status: OrderedGas-X = [...] 12:00:00 EDT, Route to Pharmacy Electronically, [facility], 158.5, cm, 11/06/19 10:48:00 EDT, Heig... Start Date: 11/06/19 Stop Date: 11/20/19 Status: OrderedImitrex 100 mg oral tablet 1 tablet = 100 mg, By Mouth, Daily, PRN for migraine headache, may repeat dose after 2 hours up to amaximum of 2, # 9 tablet, 1 Refills, Maintenance, 11/21/19 13:47:00 EDT, Tablet, [facility], 158.5, cm, 11/19/19 15:50:00 EDT, Height, [...] 06/18/18 13:37:18 EDT, Route to Pharmacy Electronically, [id number], [facility] Start Date: 06/18/18 [...] 12/09/19 16:59:00 EDT, Route to Pharmacy Electronically, [facility] [id number] ([place]... Start Date: 12/09/19 Stop Date: 12/18/19 Status: Orderedpantoprazole 40 mg oral delayed release tablet 40 mg, By Mouth, 2 times a day, # 180 each, Refills 3, Tot. Refills 3, Maintenance, 08/22/16 14:18:07, Route to Pharmacy Electronically, [id number], [facility] Start Date: 08/22/16 Stop Date: 08/17/17 [...] 1 Refills, Maintenance, 11/06/19 11:59:00 EDT, Tablet, [facility], 158.5, cm, 11/06/19 10:48:00 EDT,Height, 84, kg, 10/05/18 2:07:00 EDT, Dry Weight Start Date: 11/06/19 Status: OrderedVitamin B Complex with Folic Acid oral tablet 1 tablet, By Mouth, Daily, # 90 tablet, 3 Refills, Maintenance, 06/03/19 10:55:00 EDT, Tablet, [facility], 1 tablet By Mouth Daily, 158.5, cm, 04/09/19 15:02:00 EST, Height, 84, kg, 10/05/18 2:07:00 EDT, Dry Weight Start Date: 06/03/19 Status: OrderedVitamin C 500 mg oral tablet 1 tablet = 500 mg, By Mouth, Daily, # 90 tablet, 0 Refills, Maintenance, 10/14/19 14:32:00 EDT, Tablet, [facility], 158.5, cm, 08/27/19 12:39:00 EDT, Height, [...] 81, WNL, 01/02/13.2skin test pos: mold, trees, [id number] Renae Yunlczfjwd5oahfccp pantozapole,5HLemuel [facility] audiology Social History Social History Type Response Smoking Status Former smoker; Tobacco user in household: No; Type: Cigarettes; Tobacco use times per day: UP TO 3 PPD; Stopped at age: 52; entered on: 04/14/14 Sex
--- OUTSIDE RECORDS SUMMARY | 2022-03-26 02:49 | XMS_ITS | Continuity of Care Document ---
:1960 Author Organization [facility] Address [address] [place] [address]- Care Team Providers Name Role Phone Amilcar Hadley MD Primary Care Physician Encounter [facility] [place] [place] Date(s): 07/31/19 - 08/30/19 [facility] [address] [place] [address]- [facility] Attending Physician: AdmTiffany farrell Admitting Physician: AdmTiffany farrell Referring Physician: AdmtrTiffany [...] Given P atient Refuses 1Result Comment: [12/05/2017] [facility]#[phone] Comment: [11/23/2016] [facility] # [id number] Comment: [12/11/2013] vis [id number] Comment: [11/23/2016] [facility] # [id number] Comment: [04/09/2014] pt stated that she was [...] 02/13/2014:55:00 EST, Inhaler, Route to Pharmacy Electronically, [id number], [facility], 154.94, cm, 02/07/19 11:53:00 EST, He... [...] 06/18/18 13:37:18 EDT, Route to Pharmacy Electronically, [id number], [facility] Start Date: 06/18/18 Status: OrderedOrthopedic shoes [...] Maintenance, 08/22/16 14:18:07, Route to Pharmacy Electronically, [id number], [facility] Start Date: 08/22/16 Stop Date: [...] 07/23/18 13:46:52 EDT, Route to Pharmacy Electronically, [id number], [facility] [...] 3 Refills, Maintenance, 06/03/19 10:55:00 EDT, Tablet, MD [facility], 1 tablet By Mouth Daily, 158.5, cm, 04/09/19 15:02:00 EST, Height, 84, kg, 10/05/18 2:07:00 EDT, Dry Weight Start Date: 06/03/19 Status: OrderedVitamin C 500 mg oral tablet 1 tablet = 500 mg, By Mouth, Daily, # 90 tablet, 0 Refills, Maintenance, 06/20/19 8:43:00 EDT, Tablet, MD [facility], 158.5, cm, 06/18/19 13:31:00 EDT, Height, [...] 81, WNL, 01/02/13.2skin test pos: mold, trees, apioj1Ha Renae [id number] pantozapole,[facility] Social History Social History Type Response Smoking Status Former smoker; Tobacco user in household: No; Type: Cigarettes; Tobacco use times per day: UP TO 3 PPD; Stopped at age: 52; entered on: 04/14/14 Sex
--- OUTSIDE RECORDS SUMMARY | 2022-03-26 02:49 | XMS_ITS | Continuity of Care Document ---
:1960 Author Organization [facility] Address [address] [place] [address]- Care Team Providers Name Role Phone Jomar RUBALCAVA, Amilcar Primary Care Physician Encounter [facility] Date(s): 11/18/19 - 12/18/19 [facility] [address] [place] [address]- Allergies, Adverse Reactions, Alerts Substance Reaction Severity [...] Given P atient Refuses 1Result Comment: [facility]:[phone] Comment: [12/05/2017] [facility]#[phone] Result Comment: [11/23/2016] [facility] # [id number] Comment: [12/11/2013] vis [id number] Comment: [11/23/2016] [facility] # [id number] Comment: [04/09/2014] pt stated that she was [...] 02/13/2014:55:00 EST, Inhaler, Route to Pharmacy Electronically, [id number], [facility], 154.94, [...] 3 Refills, Maintenance, 07/10/19 13:08:00 EDT, Tablet, [facility], 158.5, cm, 07/01/19 12:34:00 EDT, Height, [...] 0 Refills, Maintenance, 08/28/19 11:01:00 EDT, Capsule, [facility], 1 capsule By Mouth Daily, 158.5, [...] Refills, Soft Stop, 10/02/19 12:24:00 EDT, Tablet, [facility], 158.5, cm, 08/27/19 12:39:00 EDT, Height, [...] Instructions Replace Required Details,Route to Pharm[facility] Electronically, [facility] Start Date: 11/21/19 Status: OrderedGas-X = [...] 11/06/19 12:00:00 EDT, Route to Pharmacy Electronically, [facility], 158.5, cm, 11/06/19 10:48:00 EDT, [place]... Start Date: 11/06/19 Stop Date: 11/20/19 Status: OrderedImitrex 100 mg oral tablet 1 tablet = 100 mg, By Mouth, Daily, PRN for migraine headache, may repeat dose after 2 hours up to amaximum of 2, # 9 tablet, 1 Refills, Maintenance, 11/21/19 13:47:00 EDT, Tablet, [facility], 158.5, cm, 11/19/19 15:50:00 EDT, Height, [...] 06/18/18 13:37:18 EDT, Route to Pharmacy Electronically, [id number], [facility] Start [...] Maintenance, 08/22/16 14:18:07, Route to Pharmacy Electronically, [id number], [facility] Start Date: 08/22/16 Stop Date: [...] 1 Refills, Maintenance, 11/06/19 11:59:00 EDT, Tablet, [facility], 158.5, cm, 11/06/19 10:48:00 EDT,Height, 84, kg, 10/05/18 2:07:00 EDT, Dry Weight Start Date: 11/06/19 Status: OrderedVitamin B Complex with Folic Acid oral tablet 1 tablet, By Mouth, Daily, # 90 tablet, 3 Refills, Maintenance, 06/03/19 10:55:00 EDT, Tablet, [facility], 1 tablet By Mouth Daily, 158.5, cm, 04/09/19 15:02:00 EST, Height, 84, kg, 10/05/18 2:07:00 EDT, Dry Weight Start Date: 06/03/19 Status: OrderedVitamin C 500 mg oral tablet 1 tablet = 500 mg, By Mouth, Daily, # 90 tablet, 0 Refills, Maintenance, 10/14/19 14:32:00 EDT, Tablet, [facility] [...] 81, WNL, 01/02/13.2skin test pos: mold, trees, [id number] Renae Mywhmtytmt0pwrgtmf pantozapole,5[facility] Social History Social History Type Response Smoking Status Former smoker; Tobacco user in household: No; Type: Cigarettes; Tobacco use times per day: UP TO 3 PPD; Stopped at age: 52; entered on: 04/14/14 Sex
--- OUTSIDE RECORDS SUMMARY | 2022-03-26 02:49 | XMS_ITS | Continuity of Care Document ---
:1960 Author Organization [facility] Address [address] [place] [address]- Care Team Providers Name Role Phone Amilcar Hadley MD Primary Care Physician [facility]counter [facility] Date(s): 02/27/19 - 06/27/19 [facility] [address] [place] [address]- [facility] Attending Physician: Amilcar Hadley MD Allergies, [...] P atient Refuses 1Result Comment: [12/05/2017] [facility]#[phone] Comment: [11/23/2016] [facility] # [id number] Comment: [12/11/2013] vis [id number] Comment: [11/23/2016] [facility] # [id number] Comment: [04/09/2014] pt stated that she was [...] 02/13/2014:55:00 EST, Inhaler, Route to Pharmacy Electronically, [id number], [facility], 154.94, [...] 0 Refills, Maintenance, 02/26/19 10:39:00 EST, Capsule, [facility], 1 capsule By Mouth Daily, 154.94, [...] 06/18/18 13:37:18 EDT, Route to Pharmacy Electronically, [id number], [facility] Start Date: 06/18/18 Status: OrderedOrthopedic [...] Maintenance, 08/22/16 14:18:07, Route to Pharmacy Electronically, [id number], [facility] Start Date: 08/22/16 Stop Date: 08/17/17 [...] 07/23/18 13:46:52 EDT, Route to Pharmacy Electronically, [id number], [facility] Start Date: 07/23/18 Status: OrderedSpiriva [...] 07/21/19 12:45:00 EDT, 06/20/19 12:43:00 EDT, Tablet, [facility], 158.5, cm, 06/18/19 13:31:00 EDT,... Start [...] 0 Refills, Maintenance, 05/26/19 14:13:00 EDT, Tablet, [facility], 158.5, cm, 04/09/19 15:02:00 EST,Height, 84, [...] 0 Refills, Maintenance, 06/20/19 8:43:00 EDT, Tablet, [facility], 158.5, cm, 06/18/19 13:31:00 EDT, Height, [...] 81, WNL, 01/02/13.2skin test pos: mold, trees, [id number] Renae Ykkudkyvpt9kpthyjm pantozapole,5[facility] audiology Social History Social History Type Response Smoking Status Former smoker; Tobacco user in household: No; Type: Cigarettes; Tobacco use times per day: UP TO 3 PPD; Stopped at age: 52; entered on: 04/14/14 Sex
--- OUTSIDE RECORDS SUMMARY | 2022-03-26 02:49 | XMS_ITS | Continuity of Care Document ---
:1960 Author Organization [facility] Address [address] [place] [address]- Care Team Providers Name Role Phone Amilcar Hadley MD Primary Care Physician Encounter [facility] Date(s): 12/24/19 - 03/17/20 [facility] [address] [place] [address]- Attending Physician: Brittany Mello MD Referring Physician: Amilcar Hadley MD Allergies, [...] atient Refuses 1Result Comment: [facility]:[id number] Comment: [12/05/2017] [facility]#[phone] Result Comment: [11/23/2016] [facility] # [id number] Comment: [12/11/2013] vis [id number] Comment: [11/23/2016] [facility] # [phone] Comment: [04/09/2014] pt stated that she was [...] 02/13/2014:55:00 EST, Inhaler, Route to Pharmacy Electronically, [id number], [facility], 154.94, cm, 02/07/19 11:53:00 EST, [...] E11.9 test blood sugars daily as instructed, 11/29/18 10:17:47 EST, Compound Start Date: 01/10/18 Status: [...] 3 Refills, Maintenance, 07/10/19 13:08:00 EDT, Tablet, [facility], 158.5, cm, 07/01/19 12:34:00 EDT, Height, [...] 0 Refills, Maintenance, 12/19/19 14:27:00 EST, Capsule, [facility], 1 capsule By Mouth Daily, 158.5, [...] Soft Stop, 10/02/19 12:24:00 EDT, Tablet, [facility], 158.5, cm, 08/27/19 12:39:00 EDT, Height, 84, kg, 10/05/18 2:07:00 EDT, Dry Weight Start Date: 10/02/19 Status: Orderedepinephrine 0.3 mg injectable solution 0 Refills, Maintenance, 12/13/18 14:05:43 EDT Start Date: 12/13/18 Status: OrderedEstrace 1 mg oral tablet 1 mg, 1, tablet, By Mouth, Daily, # 90 tablet, Refills 1, Tot. Refills 1, Maintenance, 11/12/19 16:44:00 EDT, Route to Pharmacy Electronically, [facility], 158.5, cm, 08/27/19 12:39:00 EDT, Height, 84, kg, 10/05/18 2:07:00 EDT, Dry Weight Start Date: 11/12/19 Stop Date: 05/10/20 Status: OrderedFish Oil 1000 mg oral capsule 1 capsule = 1,000 mg, By Mouth, Daily, # 90 capsule, 3 Refills, Maintenance, 02/26/19 10:39:00 EST, Capsule, [facility], 154.94, cm, 02/26/19 10:16:00 EST, [...] 0 Refills, Maintenance, 01/21/20 8:28:00 EST, Tablet, [facility], Partial fill upon patient request if [...] 1 Refills, Maintenance, 01/12/20 9:22:00 EST, Tablet, [facility], 158.5, cm, 01/07/20 15:56:00 EST, Height, 84, kg, 08... Start Date: 01/12/20 Status: OrderedImitrex 100 mg oral tablet 1 tablet = 100 mg, By Mouth, Daily, PRN for migraine headache, may repeat dose after 2 hours up to amaximum of 2, # 9 tablet, 1 Refills, Maintenance, 10/14/19 15:06:00 EDT, Tablet, [facility], 158.5, cm, 08/27/19 12:39:00 EDT, [...] 10:32:00 EDT, Route to Pharmacy Electronically, [facility], 158.5, cm, 11/04/19 8:30:00 EDT, [...] Refills, Maintenance, 10/17/2011:57:00 EDT, ER Tablet, [facility], 158.5, cm, 08/27/19 12:39:00 EDT, Height, 84, kg, 10/05/18 2:07:00 EDT, Dry Weight Start Date: 10/17/19 Status: Orderedmontelukast 10 mg oral tablet See Instructions, # 90 tablet, Refills 1 Tot. Refills 1, TAKE ONE (1) TABLET BY MOUTH ONCE DAILY IN THE EVENING., [facility] Start Date: 10/31/18 Status: Orderedmultivitamin Vitamin B Complex oral capsule 1 capsule, By Mouth, Daily, # 90 capsule, 0 Refills, Maintenance, 03/08/20 8:40:00 EST, Capsule, [facility], Partial fill upon patient request [...] 06/18/18 13:37:18 EDT, Route to Pharmacy Electronically, [id number], [facility] Start Date: 06/18/18 Status: OrderedOrthopedic [...] Maintenance, 08/22/16 14:18:07, Route to Pharmacy Electronically, [id number], [facility] Start Date: 08/22/16 Stop Date: [...] 1 Refills, Maintenance, 12/30/19 11:05:00 EST, Tablet, [facility], 158.5, cm, 12/10/19 14:54:00 EDT, Height, 84, kg, 10/05/18 2:07:00 EDT, Dry Weight Start Date: 12/30/19 Status: OrderedVitamin B Complex with Folic Acid oral tablet 1 tablet, By Mouth, Daily, # 90 tablet, 3 Refills, Maintenance, 06/03/19 10:55:00 EDT, Tablet, [facility], 1 tablet By Mouth Daily, 158.5, cm, 04/09/19 15:02:00 EST, Height, 84, kg, 10/05/18 2:07:00 EDT, Dry Weight Start Date: 06/03/19 Status: OrderedVitamin C 500 mg oral tablet 1 tablet = 500 mg, By Mouth, Daily, # 90 tablet, 0 Refills, Maintenance, 01/12/20 14:32:00 EST, Tablet, [facility], 158.5, cm, 01/07/20 15:56:00 EST, Height, 84, kg, 10/05/18 2:07:00 EDT, Dry Weight Start Date: 01/12/20 Stop Date: 04/11/20 Status: OrderedVoltaren 1% topical gel 1 application, Topically, 4 times a day, PRN for pain, # 100 Gm, 0 Refills, Maintenance, 01/07/20 16:13:00 EST, Gel, [facility], Partial fill upon patient request, 1 [...] 81, WNL, 01/02/13.2skin test pos: mold, trees, inicz1Qh Renae Amyxroknrp9kguloha pantozapole,5[facility] audiology Social History Social History Type Response Smoking Status Former smoker; Tobacco user in household: No; Type: Cigarettes; Tobacco use times per day: UP TO 3 PPD; Stopped at age: 52; entered on: 04/14/14 Sex
--- OUTSIDE RECORDS SUMMARY | 2022-03-26 02:49 | XMS_ITS | Continuity of Care Document ---
:1960 Author Organization [facility] Address [address] [place] [address]- Care Team Providers Name Role Phone Amilcar Hadley MD Primary Care Physician [facility] Date(s): 08/27/19 - 09/03/19 [facility] [address] [place] [address]- [facility] Encounter Diagnosis Educated about COVID-19 virus infection (Discharge Diagnosis) - 08/27/19 Vertigo (Discharge Diagnosis) - 08/27/19 Attending Physician: Amilcar Hadley MD Allergies, Adverse [...] Refuses 1Result Comment: [12/05/2017] [facility]#[id number] Comment: [11/23/2016] [facility] # [id number] Comment: [12/11/2013] vis [id number] Comment: [11/23/2016] [facility] # [id number] Comment: [04/09/2014] pt stated that she was [...] 02/13/2014:55:00 EST, Inhaler, Route to Pharmacy Electronically, [id number], [facility], 154.94, cm, 02/07/19 11:53:00 [...] Refills, Maintenance, 07/10/19 13:08:00 EDT, Tablet, [facility], 158.5, cm, 07/01/19 12:34:00 EDT, Height, [...] 0 Refills, Maintenance, 08/28/19 11:01:00 EDT, Capsule, [facility], 1 capsule By Mouth Daily, 158.5, [...] Refills, Maintenance, 07/29/19 15:59:00 EDT, EC Tablet, [facility], 158.5, cm, 07/29/19 10:33:00 EDT, Height, [...] 08/14/19 16:44:00 EDT, Route to Pharmacy Electronically, [facility], 158.5, cm, 07/29/19 10:33:00 EDT, [...] 08/19/19 8:20:00 EDT, Route to Pharmacy Electronically, [facility], 158.5, cm, 08/04/19 16:24:00EDT, Height, [...] 02/26/19 10:41:00 EST, Route to Pharmacy Electronically, [facility], 154.94, cm, 02/26/19 10:16:00 EST, Hei... Start Date: 02/26/19 Status: OrderedImitrex 100 mg oral tablet 1 tablet = 100 mg, By Mouth, Daily, PRN for migraine headache, may repeat dose after 2 hours up to amaximum of 2, # 9 tablet, 1 Refills, Maintenance, 09/02/19 13:49:00 EDT, Tablet, [facility], 158.5, [...] 04/27/19 11:24:00 EDT, Route to Pharmacy Electronically, [facility], 158.5, cm, 04/09/19 15:02:00 EST, [...] 6 Refills, Maintenance, 02/28/2010:35:00 EST, ER Tablet, [facility], 158.5, cm, 02/27/19 13:31:00 EST, [...] 06/18/18 13:37:18 EDT, Route to Pharmacy Electronically, [id number], [facility] Start Date: 06/18/18 Status: OrderedOrthopedic shoes [...] Maintenance, 08/22/16 14:18:07, Route to Pharmacy Electronically, [id number], [facility] Start Date: 08/22/16 Stop Date: 08/17/17 [...] 07/23/18 13:46:52 EDT, Route to Pharmacy Electronically, [id number], [facility] Start Date: 07/23/18 Status: OrderedSpiriva Respimat [...] 0 Refills, Maintenance, 07/30/19 11:47:00 EDT, Tablet, [facility], 158.5, cm, 07/29/19 10:33:00 EDT,Height, [...] 06/03/19 10:55:00 EDT, Tablet, [facility], 1 tablet By Mouth Daily, 158.5, cm, 04/09/19 15:02:00 EST, Height, 84, kg, 10/05/18 2:07:00 EDT, Dry Weight Start Date: 06/03/19 Status: OrderedVitamin C 500 mg oral tablet 1 tablet = 500 mg, By Mouth, Daily, # 90 tablet, 0 Refills, Maintenance, 06/20/19 8:43:00 EDT, Tablet, [facility], 158.5, cm, 06/18/19 13:31:00 EDT, [...] 81, WNL, 01/02/13.2skin test pos: mold, trees, [id number] Renae Ewcdimhzab8qayezzx pantozapole,5[facility] aud[facility] Diagnosis Diagnosis Type Effective Dates Health Status Clinical In formant Service Vertigo Discharge 08/27/19 Diagnosis Educated about Discharge 08/27/19 COVID-19 virus Diagnosis infection Vital Signs Most recent to oldest [Reference Range]: 1 Height 158.5 cm (08/27/19 12:39 PM) Social History Social History Type Response Smoking Status Former smoker; Tobacco user in household: No; Type: Cigarettes; Tobacco use times per day: UP TO 3 PPD; Stopped at age: 52; entered on: 04/14/14 Sex
--- OUTSIDE RECORDS SUMMARY | 2022-03-26 02:49 | XMS_ITS | Continuity of Care Document ---
:1960 Author Organization [facility] Address [address] [place] [address]- Care Team Providers Name Role Phone Jomar RUBALCAVA, Amilcar Primary Care Physician [facility]): 10[facility] - 11/01/19 [facility] [address] [place] [address]- [facility] Allergies, Adverse Reactions, Alerts Substance Reaction [...] 1Result Comment: [12/05/2017] [facility]#[id number] Comment: [11/23/2016] [facility] # [id number] Comment: [12/11/2013] vis [id number] Comment: [11/23/2016] [facility] # [id number] Comment: [04/09/2014] pt stated that she was [...] 02/13/2014:55:00 EST, Inhaler, Route to Pharmacy Electronically, [id number], [facility], 154.94, [...] 3 Refills, Maintenance, 07/10/19 13:08:00 EDT, Tablet, [facility], 158.5, cm, 07/01/19 12:34:00 EDT, Height, [...] 0 Refills, Maintenance, 08/28/19 11:01:00 EDT, Capsule, [facility], 1 capsule By Mouth Daily, 158.5, [...] Refills, Maintenance, 07/29/19 15:59:00 EDT, EC Tablet, [facility], 158.5, cm, 07/29/19 10:33:00 EDT, Height, [...] Refills, Soft Stop, 10/02/19 12:24:00 EDT, Tablet, [facility], 158.5, cm, 08/27/19 12:39:00 EDT, Height, 84, kg, 10/05/18 2:07:00 EDT, Dry Weight Start Date: 10/02/19 Status: Orderedepinephrine 0.3 mg injectable solution 0 Refills, Maintenance, 12/13/18 14:05:43 EDT Start Date: 12/13/18 Status: OrderedEstrace 1 mg oral tablet 1 mg, 1, tablet, By Mouth, Daily, # 90 tablet, Refills 1, Tot. Refills 1, Maintenance, 11/12/19 16:44:00 EDT, Route to Pharmacy Electronically, [facility], 158.5, cm, 08/27/19 12:39:00 EDT, Height, 84, kg, 10/05/18 2:07:00 EDT, Dry Weight Start Date: 11/12/19 Stop Date: 05/10/20 Status: OrderedEstrace 1 mg oral tablet 1 mg, 1, tablet, By Mouth, Daily, for 90 days, # 90 tablet, Refills 0, Tot. Refills 0, Hard Stop 11/12/19 16:44:00 EDT, 08/14/19 16:44:00 EDT, Route to Pharmacy Electronically, [facility], 158.5,cm, 07/29/19 10:33:00 EDT, Height, 84, kg, ... Start Date: 08/14/19 Stop Date: 11/12/19 Status: OrderedFish Oil 1000 mg oral capsule 1 capsule = 1,000 mg, By Mouth, Daily, # 90 capsule, 3 Refills, Maintenance, 02/26/19 10:39:00 EST, Capsule, [facility], 154.94, cm, 02/26/19 10:16:00 EST, Height, [...] 08/19/19 8:20:00 EDT, Route to Pharmacy Electronically, [facility], 158.5, cm, 08/04/19 16:24:00EDT, Height, 84, [...] 02/26/19 10:41:00 EST, Route to Pharmacy Electronically, [facility], 154.94, cm, 02/26/19 10:16:00 EST, Hei... Start Date: 02/26/19 Status: OrderedImitrex 100 mg oral tablet 1 tablet = 100 mg, By Mouth, Daily, PRN for migraine headache, may repeat dose after 2 hours up to amaximum of 2, # 9 tablet, 1 Refills, Maintenance, 10/14/19 15:06:00 EDT, Tablet, [facility], 158.5, cm, 08/27/19 12:39:00 EDT, Height, [...] 04/27/19 11:24:00 EDT, Route to Pharmacy Electronically, [facility], 158.5, cm, 04/09/19 15:02:00 EST, Height, [...] 5 Refills, Maintenance, 10/17/2011:57:00 EDT, ER Tablet, [facility], 158.5, cm, 08/27/19 12:39:00 EDT, Height, 84, kg, 10/05/18 2:07:00 EDT, Dry Weight Start Date: 10/17/19 Status: Orderedmontelukast 10 mg oral tablet See Instructions, # 90 tablet, Refills 1 Tot. Refills 1, TAKE ONE (1) TABLET BY MOUTH ONCE DAILY IN THE EVENING., [facility] Start Date: 10/31/18 Status: OrderedOne Touch [...] 06/18/18 13:37:18 EDT, Route to Pharmacy Electronically, [id number], [facility] Start Date: 06/18/18 Status: OrderedOrthopedic shoes [...] Maintenance, 08/22/16 14:18:07, Route to Pharmacy Electronically, [id number], [facility] Start Date: 08/22/16 Stop Date: 08/17/17 [...] 07/23/18 13:46:52 EDT, Route to Pharmacy Electronically, [id number], [facility] Start Date: 07/23/18 Status: OrderedSpiriva Respimat [...] 0 Refills, Maintenance, 07/30/19 11:47:00 EDT, Tablet, [facility], 158.5, cm, 07/29/19 10:33:00 EDT,Height, 84, [...] 10:55:00 EDT, Tablet, [facility], 1 tablet By Mouth Daily, 158.5, cm, 04/09/19 15:02:00 EST, Height, 84, kg, 10/05/18 2:07:00 EDT, Dry Weight Start Date: 06/03/19 Status: OrderedVitamin C 500 mg oral tablet 1 tablet = 500 mg, By Mouth, Daily, # 90 tablet, 0 Refills, Maintenance, 10/14/19 14:32:00 EDT, Tablet, [facility], 158.5, cm, 08/27/19 12:39:00 EDT, Height, [...] 81, WNL, 01/02/13.2skin test pos: mold, trees, hotog1Ka Renae Kzqyehwyhu1ognvpuj pantozapole,5[facility] audiology Social History Social History Type Response Smoking Status Former smoker; Tobacco user in household: No; Type: Cigarettes; Tobacco use times per day: UP TO 3 PPD; Stopped at age: 52; entered on: 04/14/14 Sex
--- OUTSIDE RECORDS SUMMARY | 2022-03-26 02:49 | XMS_ITS | Continuity of Care Document ---
:1960 Author Organization [facility] Address [address] [place] [address]- Care Team Providers Name Role Phone Amilcar Hadley MD Primary Care Physician Encounter [facility] [place] Date(s): 09/23/19 - 09/30/19 [facility] [address] [place] [address]- [facility] Encounter Diagnosis Hospital discharge follow-up (Discharge Diagnosis) - 09/23/19 Bipolar disorder (Discharge Diagnosis) - 09/23/19 Diabetes mellitus (Discharge Diagnosis) - 09/23/19 Attending Physician: Amilcar Hadley MD Allergies, Adverse [...] P atient Refuses 1Result Comment: [12/05/2017] [facility]#[id number] Comment: [11/23/2016] [facility] # [phone] Comment: [12/11/2013] vis [email or web address] Comment: [11/23/2016] [facility] # [phone] Comment: [04/09/2014] pt stated that she was [...] 02/13/2014:55:00 EST, Inhaler, Route to Pharmacy Electronically, [id number], [facility], 154.94, cm, 02/07/19 11:53:00 EST, [...] 3 Refills, Maintenance, 07/10/19 13:08:00 EDT, Tablet, [facility], 158.5, cm, 07/01/19 12:34:00 EDT, Height, [...] Refills, Maintenance, 08/28/19 11:01:00 EDT, Capsule, [facility], 1 capsule By Mouth Daily, 158.5, [...] Refills, Maintenance, 07/29/19 15:59:00 EDT, EC Tablet, [facility], 158.5, cm, 07/29/19 10:33:00 EDT, Height, 84, kg, 08/24/192:07:00 EDT, Dry Weight Start Date: 07/29/19 Stop [...] 08/14/19 16:44:00 EDT, Route to Pharmacy Electronically, [facility], 158.5, cm, 07/29/19 10:33:00 EDT, Height, 84, kg, 10/05/18 2:07:00 EDT, Dry Weight Start Date: 08/14/19 Stop Date: 11/12/19 Status: OrderedFish Oil 1000 mg oral capsule 1 capsule = 1,000 mg, By Mouth, Daily, # 90 capsule, 3 Refills, Maintenance, 02/26/19 10:39:00 EST, Capsule, [facility], 154.94, cm, 02/26/19 10:16:00 EST, Height, [...] 08/19/19 8:20:00 EDT, Route to Pharmacy Electronically, [facility], 158.5, cm, 08/04/19 16:24:00EDT, Height, 84, [...] 02/26/19 10:41:00 EST, Route to Pharmacy Electronically, [facility], 154.94, cm, 02/26/19 10:16:00 EST, Hei... Start Date: 02/26/19 Status: OrderedImitrex 100 mg oral tablet 1 tablet = 100 mg, By Mouth, Daily, PRN for migraine headache, may repeat dose after 2 hours up to amaximum of 2, # 9 tablet, 1 Refills, Maintenance, 09/02/19 13:49:00 EDT, Tablet, [facility], 158.5, cm, 08/27/19 12:39:00 EDT, Height, [...] 04/27/19 11:24:00 EDT, Route to Pharmacy Electronically, [facility], 158.5, cm, 04/09/19 15:02:00 EST, Height, [...] 6 Refills, Maintenance, 02/28/2010:35:00 EST, ER Tablet, [facility], 158.5, cm, 02/27/19 13:31:00 EST, Height, [...] 06/18/18 13:37:18 EDT, Route to Pharmacy Electronically, [id number], [facility] Start Date: 06/18/18 Status: OrderedOrthopedic [...] Maintenance, 08/22/16 14:18:07, Route to Pharmacy Electronically, [id number], [facility] Start Date: 08/22/16 Stop Date: 08/17/17 [...] 07/23/18 13:46:52 EDT, Route to Pharmacy Electronically, [id number], [facility] Start Date: 07/23/18 Status: OrderedSpiriva Respimat [...] 0 Refills, Maintenance, 07/30/19 11:47:00 EDT, Tablet, [facility], 158.5, cm, 07/29/19 10:33:00 EDT,Height, 84, [...] Refills, Maintenance, 06/03/19 10:55:00 EDT, Tablet, [facility], 1 tablet By Mouth Daily, 158.5, cm, 04/09/19 15:02:00 EST, Height, 84, kg, 10/05/18 2:07:00 EDT, Dry Weight Start Date: 06/03/19 Status: OrderedVitamin C 500 mg oral tablet 1 tablet = 500 mg, By Mouth, Daily, # 90 tablet, 0 Refills, Maintenance, 06/20/19 8:43:00 EDT, Tablet, [facility], 158.5, cm, 06/18/19 13:31:00 EDT, Height, [...] 81, WNL, 01/02/13.2skin test pos: mold, trees, [id number] Renae Migyjkcbcx8lthubux pantozapole,[facility] Diagnosis Diagnosis Type Effective Dates Health Status Clinical In [facility] Discharge 09/23/19 discharge Diagnosis follow-up Bipolar disorder Discharge 09/23/19 Diagnosis Diabetes Discharge 09/23/19 mellitus Diagnosis Social History Social History Type Response Smoking Status Former smoker; Tobacco user in household: No; Type: Cigarettes; Tobacco use times per day: UP TO 3 PPD; Stopped at age: 52; entered on: 04/14/14 Sex
--- OUTSIDE RECORDS SUMMARY | 2022-03-26 02:49 | XMS_ITS | Continuity of Care Document ---
:1960 Author Organization [facility] Address [address] [place] [address]- Care Team Providers Name Role Phone Leona Ragland MD Primary Care Physician [phone] Encounter [facility] [place] Date(s): 12/13/18 - 01/30/[address] [address] [phone] Attending Physician: Kai Gomez MD Admitting Physician: Kai Gomez MD Referring Physician: Kai Gomez MD Allergies, Adverse Reactions, Alerts Substance Reaction [...] [12/05/2017] [facility][note 3]#[phone] Comment: [11/23/2016] [facility] # [id number] Comment: [12/11/2013] vis [id number] Comment: [11/23/2016] [facility] # [id number] Comment: [04/09/2014] pt stated that she was [...] 11/06/18 15:21:23 EDT, Route to Pharmacy Electronically, [id number], [facility] Start Date: 11/06/18 Stop Date: 11/11/18 [...] ONE (1) TABLET BY MOUTH ONCE DAILY, [facility] Start Date: 08/06/18 Status: Orderedmeclizine 25 [...] BY MOUTH ONCE DAILY IN THE EVENING., [facility] Start Date: 10/31/18 Status: OrderedMultivitamin Daily, [...] 06/18/18 13:37:18 EDT, Route to Pharmacy Electronically, [id number], [facility] Start Date: 06/18/18 Status: OrderedOrthopedic shoes [...] Maintenance, 08/22/16 14:18:07, Route to Pharmacy Electronically, [id number], [facility] Start Date: 08/22/16 Stop Date: 08/17/17 [...] 07/23/18 13:46:52 EDT, Route to Pharmacy Electronically, [id number], [facility] [...] 81, WNL, 01/02/13.2skin test pos: mold, trees, [id number] Renae Aaqdownzns8lorzxyg pantozapole,5[facility] audiology Social History Social History Type Response Smoking Status Former smoker; Tobacco user in household: No; Type: Cigarettes; Tobacco use times per day: UP TO 3 PPD; Stopped at age: 52; entered on: 04/14/14 Sex
--- OUTSIDE RECORDS SUMMARY | 2022-03-26 02:49 | XMS_ITS | Continuity of Care Document ---
:1960 Author Organization [facility] Address [address] [place] [address]- Care Team Providers Name Role Phone Jomar RUBALCAVA, Amilcar Primary Care Physician [facility] Date(s): 08/27[facility]19 - 09/26/19 [facility] [address] [place] [address]- [facility] Allergies, Adverse Reactions, Alerts Substance Reaction Severity [...] 1Result Comment: [12/05/2017] [facility]#[id number] Comment: [11/23/2016] [facility] # [id number] Comment: [12/11/2013] vis [id number] Comment: [11/23/2016] [facility] # [id number] Comment: [04/09/2014] pt stated that she was [...] 02/13/2014:55:00 EST, Inhaler, Route to Pharmacy Electronically, [id number], [facility], 154.94, cm, 02/07/19 11:53:00 [...] Maintenance, 07/10/19 13:08:00 EDT, Tablet, [facility], 158.5, cm, 07/01/19 12:34:00 EDT, [...] 0 Refills, Maintenance, 08/28/19 11:01:00 EDT, Capsule, [facility], 1 capsule By Mouth Daily, [...] 07/29/19 15:59:00 EDT, EC Tablet, [facility], 158.5, cm, 07/29/19 10:33:00 EDT, [...] EDT, Route to Pharmacy Electronically, [facility], 158.5, cm, 07/29/19 10:33:00 EDT, Height, 84, kg, 10/05/18 2:07:00 EDT, Dry Weight Start Date: 08/14/19 Stop Date: 11/12/19 Status: OrderedFish Oil 1000 mg oral capsule 1 capsule = 1,000 mg, By Mouth, Daily, # 90 capsule, 3 Refills, Maintenance, 02/26/19 10:39:00 EST, Capsule, [facility], 154.94, cm, 02/26/19 10:16:00 EST, [...] EDT, Route to Pharmacy Electronically, [facility], 158.5, cm, 08/04/19 16:24:00EDT, Height, [...] EST, Route to Pharmacy Electronically, [facility], 154.94, cm, 02/26/19 10:16:00 EST, Hei... Start Date: 02/26/19 Status: OrderedImitrex 100 mg oral tablet 1 tablet = 100 mg, By Mouth, Daily, PRN for migraine headache, may repeat dose after 2 hours up to amaximum of 2, # 9 tablet, 1 Refills, Maintenance, 09/02/19 13:49:00 EDT, Tablet, [facility], 158.5, cm, 08/27/19 12:39:00 EDT, [...] EDT, Route to Pharmacy Electronically, [facility], 158.5, cm, 04/09/19 15:02:00 EST, [...] Maintenance, 02/28/2010:35:00 EST, ER Tablet, [facility], 158.5, cm, 02/27/19 13:31:00 EST, [...] 06/18/18 13:37:18 EDT, Route to Pharmacy Electronically, [id number], [facility] Start Date: 06/18/18 Status: OrderedOrthopedic [...] Maintenance, 08/22/16 14:18:07, Route to Pharmacy Electronically, [id number], [facility] Start Date: 08/22/16 Stop Date: 08/17/17 [...] 07/23/18 13:46:52 EDT, Route to Pharmacy Electronically, [id number], [facility] Start Date: 07/23/18 Status: OrderedSpiriva [...] 3 Refills, Maintenance, 06/03/19 10:55:00 EDT, Tablet, [facility], 1 tablet By Mouth Daily, 158.5, cm, 04/09/19 15:02:00 EST, Height, 84, kg, 10/05/18 2:07:00 EDT, Dry Weight Start Date: 06/03/19 Status: OrderedVitamin C 500 mg oral tablet 1 tablet = 500 mg, By Mouth, Daily, # 90 tablet, 0 Refills, Maintenance, 06/20/19 8:43:00 EDT, Tablet, [facility], 158.5, cm, 06/18/19 13:31:00 EDT, Height, [...] 81, WNL, 01/02/13.2skin test pos: mold, trees, [id number] Renae Jzheckbkdo5jtfmwtw pantozapole,[facility] Social History Social History Type Response Smoking Status Former smoker; Tobacco user in household: No; Type: Cigarettes; Tobacco use times per day: UP TO 3 PPD; Stopped at age: 52; entered on: 04/14/14 Sex
--- OUTSIDE RECORDS SUMMARY | 2022-03-26 02:49 | XMS_ITS | Continuity of Care Document ---
:1960 Author Organization [facility] Address [address] [place] [address]- Care Team Providers Name Role Phone Jomar RUBALCAVA, Amilcar Primary Care Physician [facility] Date[facility]s): 08/[facility]19 - 09/17/19 [facility] [address] [place] [address]- [facility] Allergies, Adverse Reactions, Alerts Substance Reaction Severity [...] P atient Refuses 1Result Comment: [12/05/2017] [facility]#[id number] Comment: [11/23/2016] [facility] # [phone] Comment: [12/11/2013] vis [id number] Comment: [11/23/2016] [facility] # [id number] Comment: [04/09/2014] pt stated that she was [...] 02/13/2014:55:00 EST, Inhaler, Route to Pharmacy Electronically, [id number], [facility], 154.94, cm, 02/07/19 11:53:00 EST, [...] 1 Refills, Maintenance, 09/02/19 13:49:00 EDT, Tablet, [facility] BY MOUTH ONCE DAILY IN THE EVENING., [facility] Start Date: 10/31/18 Status: OrderedOne Touch [...] 06/18/18 13:37:18 EDT, Route to Pharmacy Electronically, [id number], [facility] Start Date: 06/18/18 Status: OrderedOrthopedic [...] Maintenance, 08/22/16 14:18:07, Route to Pharmacy Electronically, [id number], [facility] Start Date: 08/22/16 Stop Date: [...] 07/23/18 13:46:52 EDT, Route to Pharmacy Electronically, [id number], [facility] Start Date: 07/23/18 Status: OrderedSpiriva [...] 3 Refills, Maintenance, 06/03/19 10:55:00 EDT, Tablet, [facility], 1 tablet By Mouth Daily, 158.5, cm, 04/09/19 15:02:00 EST, Height, 84, kg, 10/05/18 2:07:00 EDT, Dry Weight Start Date: 06/03/19 Status: OrderedVitamin C 500 mg oral tablet 1 tablet = 500 mg, By Mouth, Daily, # 90 tablet, 0 Refills, Maintenance, 06/20/19 8:43:00 EDT, Tablet, [facility], 158.5, cm, 06/18/19 13:31:00 EDT, Height, [...] 81, WNL, 01/02/13.2skin test pos: mold, trees, [id number] Renae Foxnmtdwxw1kamwupr pantozapole,[facility] Social History Social History Type Response Smoking Status Former smoker; Tobacco user in household: No; Type: Cigarettes; Tobacco use times per day: UP TO 3 PPD; Stopped at age: 52; entered on: 04/14/14 Sex
--- OUTSIDE RECORDS SUMMARY | 2022-03-26 02:49 | XMS_ITS | Continuity of Care Document ---
:1960 Author Organization [facility] Address [address] [place] [address]- Care Team Providers Name Role Phone Jomar RUBALCAVA, Amilcar Primary Care Physician [facility] Date[facility]s): 12/24[facility]19 - 01/23/20 [facility] [address] [place] [address]- Allergies, Adverse Reactions, Alerts Substance Reaction Severity [...] Not Given P atient Refuses 1Result Comment: [facility]:[phone] Comment: [12/05/2017] [facility]#[phone] Result Comment: [11/23/2016] [facility] # [id number] Comment: [12/11/2013] vis [id number] Comment: [11/23/2016] [facility] # [id number] Comment: [04/09/2014] pt stated that she was [...] 02/13/2014:55:00 EST, Inhaler, Route to Pharmacy Electronically, [id number], [facility], 154.94, cm, 02/07/19 11:53:00 EST, [...] Date: 01/10/18 Status: OrderedCentury Women's Daily Multivitamin [place] Women's Daily Multivitamin, 1, tablet, By Mouth, [...] 3 Refills, Maintenance, 07/10/19 13:08:00 EDT, Tablet, [facility], 158.5, cm, 07/01/19 12:34:00 EDT, [...] 0 Refills, Maintenance, 12/19/19 14:27:00 EST, Capsule, [facility], 1 capsule By Mouth Daily, [...] Refills, Soft Stop, 10/02/19 12:24:00 EDT, Tablet, [facility], 158.5, cm, 08/27/19 12:39:00 EDT, Height, 84, kg, 10/05/18 2:07:00 EDT, Dry Weight Start Date: 10/02/19 Status: Orderedepinephrine 0.3 mg injectable solution 0 Refills, Maintenance, 12/13/18 14:05:43 EDT Start Date: 12/13/18 Status: OrderedEstrace 1 mg oral tablet 1 mg, 1, tablet, By Mouth, Daily, # 90 tablet, Refills 1, Tot. Refills 1, Maintenance, 11/12/19 16:44:00 EDT, Route to Pharmacy Electronically, [facility], 158.5, cm, 08/27/19 12:39:00 EDT, Height, 84, kg, 10/05/18 2:07:00 EDT, Dry Weight Start Date: 11/12/19 Stop Date: 05/10/20 Status: OrderedFish Oil 1000 mg oral capsule 1 capsule = 1,000 mg, By Mouth, Daily, # 90 capsule, 3 Refills, Maintenance, 02/26/19 10:39:00 EST, Capsule, [facility], 154.94, cm, 02/26/19 [...] 0 Refills, Maintenance, 01/21/20 8:28:00 EST, Tablet, [facility], Partial fill upon patient request if [...] 1 Refills, Maintenance, 01/12/20 9:22:00 EST, Tablet, [facility], 158.5, cm, 01/07/20 15:56:00 EST, Height, 84, kg, 08... Start Date: 01/12/20 Status: OrderedImitrex 100 mg oral tablet 1 tablet = 100 mg, By Mouth, Daily, PRN for migraine headache, may repeat dose after 2 hours up to amaximum of 2, # 9 tablet, 1 Refills, Maintenance, 10/14/19 15:06:00 EDT, Tablet, [facility], 158.5, cm, 08/27/19 12:39:00 EDT, [...] 11/06/19 10:32:00 EDT, Route to Pharmacy Electronically, [facility], 158.5, cm, 11/04/19 8:30:00 EDT, [...] 01/28/20 18:45:00 EST, 01/22/20 18:45:00 EST, Tablet, [facility] #[id number], Partial fill upon patient request if [...] 5 Refills, Maintenance, 10/17/2011:57:00 EDT, ER Tablet, [facility], 158.5, cm, 08/27/19 12:39:00 EDT, Height, 84, kg, 10/05/18 2:07:00 EDT, Dry Weight Start Date: 10/17/19 Status: Orderedmontelukast 10 mg oral tablet See Instructions, # 90 tablet, Refills 1 Tot. Refills 1, TAKE ONE (1) TABLET BY MOUTH ONCE DAILY IN THE EVENING., [facility] Start Date: 10/31/18 Status: OrderedOne [...] 06/18/18 13:37:18 EDT, Route to Pharmacy Electronically, [id number], [facility] Start Date: 06/18/18 Status: OrderedOrthopedic shoes [...] Maintenance, 08/22/16 14:18:07, Route to Pharmacy Electronically, [id number], [facility] Start Date: 08/22/16 Stop Date: 08/17/17 [...] 1 Refills, Maintenance, 12/30/19 11:05:00 EST, Tablet, [facility], 158.5, cm, 12/10/19 14:54:00 EDT, Height, 84, kg, 10/05/18 2:07:00 EDT, Dry Weight Start Date: 12/30/19 Status: OrderedVitamin B Complex with Folic Acid oral tablet 1 tablet, By Mouth, Daily, # 90 tablet, 3 Refills, Maintenance, 06/03/19 10:55:00 EDT, Tablet, [facility], 1 tablet By Mouth Daily, 158.5, cm, 04/09/19 15:02:00 EST, Height, 84, kg, 10/05/18 2:07:00 EDT, Dry Weight Start Date: 06/03/19 Status: OrderedVitamin C 500 mg oral tablet 1 tablet = 500 mg, By Mouth, Daily, # 90 tablet, 0 Refills, Maintenance, 01/12/20 14:32:00 EST, Tablet, [facility], 158.5, cm, 01/07/20 15:56:00 EST, Height, 84, kg, 10/05/18 2:07:00 EDT, Dry Weight Start Date: 01/12/20 Stop Date: 04/11/20 Status: OrderedVoltaren 1% topical gel 1 application, Topically, 4 times a day, PRN for pain, # 100 Gm, 0 Refills, Maintenance, 01/07/20 16:13:00 EST, Gel, [facility], Partial fill upon patient request, 1 [...] 81, WNL, 01/02/13.2skin test pos: mold, trees, [id number] Renae Jwtlcjjplb9yxrtpxf pantozapole,5[facility] Social History Social History Type Response Smoking Status Former smoker; Tobacco user in household: No; Type: Cigarettes; Tobacco use times per day: UP TO 3 PPD; Stopped at age: 52; entered on: 04/14/14 Sex
--- OUTSIDE RECORDS SUMMARY | 2022-03-26 02:50 | XMS_ITS | Continuity of Care Document ---
:1960 Author Organization [facility] Address [address] [place] [address]- Care Team Providers Name Role Phone Leona Ragland MD Primary Care Physician [phone] [facility] Date[facility]): 02/07[facility]19 - 02/07/[address] [address]- [facility] Attending Physician: Isi Dalton Allergies, Adverse Reactions, Alerts Substance Reaction Severity [...] Refuses 1Result Comment: [12/05/2017] [facility]#[id number] Comment: [11/23/2016] [facility] # [id number] Comment: [12/11/2013] vis [id number] Comment: [11/23/2016] [facility] # [id number] Comment: [04/09/2014] pt stated that she was [...] 02/04/19 15:07:00 EST, Route to Pharmacy Electronically, [facility], 154.94, cm, 12/13/18 13:54:00 EDT, [...] 11/06/18 15:21:23 EDT, Route to Pharmacy Electronically, [id number], [facility] Start Date: 11/06/18 Stop Date: 11/11/18 [...] 02/03/19 16:58:00 EST, Route to Pharmacy Electronically, [facility], 154.94, cm, 12/13/18 13:54:00 EDT, Height, 84, kg, 10/05/18 2:07:00 EDT, Dry Weight Start Date: 02/03/19 Status: OrderedMacrobid macrocrystals-monohydrate 100 mg oral capsule 1 capsule = 100 mg, By Mouth, 2 times a day, for 7 days, # 14 capsule, 0 Refills, Acute 02/14/19 13:16:00 EST, 02/07/19 13:16:00 EST, Capsule, [facility], 154.94, cm, 02/07/19 11:53:00 EST, Height, 84, kg, 10/05/18 2:07:00 EDT, Dry Weight Start Date: 02/07/19 Stop Date: 02/14/19 Status: Orderedmeclizine 25 mg oral tablet 1 [facility] Start Date: 10/31/18 Status: OrderedMultivitamin [...] 06/18/18 13:37:18 EDT, Route to Pharmacy Electronically, [id number], [facility] Start Date: 06/18/18 [...] Maintenance, 08/22/16 14:18:07, Route to Pharmacy Electronically, [id number], [facility] Start Date: 08/22/16 Stop Date: 08/17/17 Status: OrderedpredniSONE 20 mg oral tablet See Instructions, 3 tabs PO QD x3 days, then 2 tabs PO QD x3 days, then 1 tab PO QD x3 days., # 18 tablet, 0 Refills, Acute 02/21/19 13:17:00 EST, 02/07/19 13:16:00 EST, Tablet, [facility], 154.94, cm, 02/07/19 [...] 07/23/18 13:46:52 EDT, Route to Pharmacy Electronically, [id number], [facility] Start Date: 07/23/18 Status: OrderedSpiriva [...] 81, WNL, 01/02/13.2skin test pos: mold, trees, [id number] Renae Pfmiwiyris3yseellm pantozapole,[address] [place] [address] audiology Social History Social History Type Response Smoking Status Former smoker; Tobacco user in household: No; Type: Cigarettes; Tobacco use times per day: UP TO 3 PPD; Stopped at age: 52; entered on: 04/14/14 Sex
--- OUTSIDE RECORDS SUMMARY | 2022-03-26 02:50 | XMS_ITS | Continuity of Care Document ---
:1960 Author Organization [facility] Address [address] [place] [address]- Care Team Providers Name Role Phone Amilcar Hadley MD Primary Care Physician [place] [facility] [place] 09/22/19 - 09/29/19 [facility] [address] [place] [address]- [facility] Encounter Diagnosis Sciatica of left side (Discharge Diagnosis) - 09/22/19 Body aches (Discharge Diagnosis) - 09/22/19 Attending Physician: Sebastien Harmon MD Referring Physician: Amilcar Hadley MD Allergies, [...] Comment: [12/05/2017] [facility]#[phone] Comment: [11/23/2016] [facility] # [phone] Comment: [12/11/2013] vis [id number] Comment: [11/23/2016] [facility] # [phone] Comment: [04/09/2014] pt stated that she was [...] 02/13/2014:55:00 EST, Inhaler, Route to Pharmacy Electronically, [id number], [facility], 154.94, cm, 02/07/19 11:53:00 [...] 3 Refills, Maintenance, 07/10/19 13:08:00 EDT, Tablet, [facility], 158.5, cm, 07/01/19 12:34:00 EDT, Height, [...] 0 Refills, Maintenance, 08/28/19 11:01:00 EDT, Capsule, [facility], 1 capsule By Mouth Daily, 158.5, [...] Refills, Maintenance, 07/29/19 15:59:00 EDT, EC Tablet, [facility], 158.5, cm, 07/29/19 10:33:00 EDT, Height, [...] [facility], 158.5, cm, 07/29/19 10:33:00 EDT, Height, [...] [facility], 158.5, cm, 08/04/19 16:24:00EDT, Height, 84, [...] [facility], 154.94, cm, 02/26/19 10:16:00 EST, Hei... Start Date: 02/26/19 Status: OrderedImitrex 100 mg oral tablet 1 tablet = 100 mg, By Mouth, Daily, PRN for migraine headache, may repeat dose after 2 hours up to amaximum of 2, # 9 tablet, 1 Refills, Maintenance, 09/02/19 13:49:00 EDT, Tablet, [facility], 158.5, cm, 04/09/19 15:02:00 EST, Height, [...] 02/28/2010:35:00 EST, ER Tablet, [facility], 158.5, cm, 02/27/19 13:31:00 EST, Height, [...] 06/18/18 13:37:18 EDT, Route to Pharmacy Electronically, [id number], [facility] Start Date: 06/18/18 Status: OrderedOrthopedic [...] Maintenance, 08/22/16 14:18:07, Route to Pharmacy Electronically, [id number], [facility] Start Date: 08/22/16 Stop Date: 08/17/17 [...] 07/23/18 13:46:52 EDT, Route to Pharmacy Electronically, [id number], [facility] Start Date: 07/23/18 Status: OrderedSpiriva Respimat [...] 07/30/19 11:47:00 EDT, Tablet, [facility], 158.5, cm, 07/29/19 10:33:00 EDT,Height, 84, [...] 06/20/19 8:43:00 EDT, Tablet, [facility], 158.5, cm, 06/18/19 13:31:00 EDT, Height, [...] 81, WNL, 01/02/13.2skin test pos: mold, trees, [id number] Renae Pjffrdrwvh1wcafnfc pantozapole,[facility] Diagnosis Diagnosis Type Effective Dates Health Status Clinical In formant Service Sciatica of left Discharge 09/22/19 side Diagnosis Body aches Discharge 09/22/19 Diagnosis Social History Social History Type Response Smoking Status Former smoker; Tobacco user in household: No; Type: Cigarettes; Tobacco use times per day: UP TO 3 PPD; Stopped at age: 52; entered on: 04/14/14 Sex
--- OUTSIDE RECORDS SUMMARY | 2022-03-26 02:50 | XMS_ITS | Continuity of Care Document ---
:1960 Author Organization [facility] Address [address] [place] [address]- Care Team Providers Name Role Phone Jomar RUBALCAVA, Amilcar Primary Care Physician [facility] Date(s): 10/02/19 - 11/01/19 [facility] [address] [place] [address]- [facility] Allergies, Adverse Reactions, Alerts Substance [...] Given P atient Refuses 1Result Comment: [12/05/2017] [facility]#[id number] Comment: [11/23/2016] [facility] # [phone] Comment: [12/11/2013] vis [id number] Comment: [11/23/2016] [facility] # [id number] Comment: [04/09/2014] pt stated that she was [...] 02/13/2014:55:00 EST, Inhaler, Route to Pharmacy Electronically, [id number], [facility], 154.94, cm, [...] 3 Refills, Maintenance, 07/10/19 13:08:00 EDT, Tablet, [facility], 158.5, cm, 07/01/19 12:34:00 [...] 0 Refills, Maintenance, 08/28/19 11:01:00 EDT, Capsule, [facility], 1 capsule By Mouth Daily, [...] Refills, Maintenance, 07/29/19 15:59:00 EDT, EC Tablet, [facility], 158.5, cm, 07/29/19 10:33:00 EDT, [...] Refills, Soft Stop, 10/02/19 12:24:00 EDT, Tablet, [facility], 158.5, cm, 08/27/19 12:39:00 EDT, Height, 84, kg, 10/05/18 2:07:00 EDT, Dry Weight Start Date: 10/02/19 Status: Orderedepinephrine 0.3 mg injectable solution 0 Refills, Maintenance, 12/13/18 14:05:43 EDT Start Date: 12/13/18 Status: OrderedEstrace 1 mg oral tablet 1 mg, 1, tablet, By Mouth, Daily, # 90 tablet, Refills 1, Tot. Refills 1, Maintenance, 11/12/19 16:44:00 EDT, Route to Pharmacy Electronically, [facility], 158.5, cm, 08/27/19 12:39:00 EDT, Height, 84, kg, 10/05/18 2:07:00 EDT, Dry Weight Start Date: 11/12/19 Stop Date: 05/10/20 Status: OrderedEstrace 1 mg oral tablet 1 mg, 1, tablet, By Mouth, Daily, for 90 days, # 90 tablet, Refills 0, Tot. Refills 0, Hard Stop 11/12/19 16:44:00 EDT, 08/14/19 16:44:00 EDT, Route to Pharmacy Electronically, [facility], 158.5,cm, 07/29/19 10:33:00 EDT, Height, 84, kg, ... Start Date: 08/14/19 Stop Date: 11/12/19 Status: OrderedFish Oil 1000 mg oral capsule 1 capsule = 1,000 mg, By Mouth, Daily, # 90 capsule, 3 Refills, Maintenance, 02/26/19 10:39:00 EST, Capsule, [facility], 154.94, cm, 02/26/19 10:16:00 [...] 08/19/19 8:20:00 EDT, Route to Pharmacy Electronically, [facility], 158.5, cm, 08/04/19 16:24:00EDT, Height, [...] 02/26/19 10:41:00 EST, Route to Pharmacy Electronically, [facility], 154.94, cm, 02/26/19 10:16:00 EST, Hei... Start Date: 02/26/19 Status: OrderedImitrex 100 mg oral tablet 1 tablet = 100 mg, By Mouth, Daily, PRN for migraine headache, may repeat dose after 2 hours up to amaximum of 2, # 9 tablet, 1 Refills, Maintenance, 10/14/19 15:06:00 EDT, Tablet, [facility], 158.5, cm, 08/27/19 12:39:00 [...] 04/27/19 11:24:00 EDT, Route to Pharmacy Electronically, [facility], 158.5, cm, 04/09/19 15:02:00 EST, [...] 5 Refills, Maintenance, 10/17/2011:57:00 EDT, ER Tablet, [facility], 158.5, cm, 08/27/19 12:39:00 EDT, Height, 84, kg, 10/05/18 2:07:00 EDT, Dry Weight Start Date: 10/17/19 Status: Orderedmontelukast 10 mg oral tablet See Instructions, # 90 tablet, Refills 1 Tot. Refills 1, TAKE ONE (1) TABLET BY MOUTH ONCE DAILY IN THE EVENING., [facility] Start Date: 10/31/18 Status: [...] 06/18/18 13:37:18 EDT, Route to Pharmacy Electronically, [id number], [facility] Start Date: 06/18/18 Status: [...] Maintenance, 08/22/16 14:18:07, Route to Pharmacy Electronically, [id number], [facility] Start Date: 08/22/16 Stop Date: 08/17/17 [...] 07/23/18 13:46:52 EDT, Route to Pharmacy Electronically, [id number], [facility] Start Date: 07/23/18 Status: OrderedSpiriva Respimat [...] 0 Refills, Maintenance, 07/30/19 11:47:00 EDT, Tablet, [facility], 158.5, cm, 07/29/19 10:33:00 EDT,Height, [...] 06/03/19 10:55:00 EDT, Tablet, [facility], 1 tablet By Mouth Daily, 158.5, cm, 04/09/19 15:02:00 EST, Height, 84, kg, 10/05/18 2:07:00 EDT, Dry Weight Start Date: 06/03/19 Status: OrderedVitamin C 500 mg oral tablet 1 tablet = 500 mg, By Mouth, Daily, # 90 tablet, 0 Refills, Maintenance, 10/14/19 14:32:00 EDT, Tablet, [facility], 158.5, cm, 08/27/19 12:39:00 EDT, Height, [...] 81, WNL, 01/02/13.2skin test pos: mold, trees, [id number] Renae Knhcmbhmyp5lvvafmy pantozapole,5[facility] audiology Social History Social History Type Response Smoking Status Former smoker; Tobacco user in household: No; Type: Cigarettes; Tobacco use times per day: UP TO 3 PPD; Stopped at age: 52; entered on: 04/14/14 Sex
--- OUTSIDE RECORDS SUMMARY | 2022-03-26 02:50 | XMS_ITS | Continuity of Care Document ---
:1960 Author Organization [facility] Address [address] [place] [address]- Care Team Providers Name Role Phone Jomar RUBALCAVA, Amilcar Primary Care Physician Encounter [facility] Date(s): 01/16/20 - 02/15/20 [facility] [address] [place] [address]- Allergies, Adverse Reactions, Alerts Substance Reaction Severity [...] Not Given P atient Refuses 1Result Comment: [facility]:[id number] Comment: [12/05/2017] [facility]#[id number] Result Comment: [11/23/2016] [facility] # [id number] Comment: [12/11/2013] vis [id number] Comment: [11/23/2016] [facility] # [id number] Comment: [04/09/2014] pt stated that she was [...] 02/13/2014:55:00 EST, Inhaler, Route to Pharmacy Electronically, [id number], [facility] [...] Date: 01/10/18 Status: OrderedCentury Women's Daily Multivitamin [place] Women's Daily Multivitamin, 1, tablet, By Mouth, [...] 0 Refills, Maintenance, 01/21/20 8:28:00 EST, Tablet, [facility], Partial fill upon [...] 1 Refills, Maintenance, 01/12/20 9:22:00 EST, Tablet, [facility], 158.5, cm, 01/07/20 15:56:00 EST, Height, 84, kg, 08... Start Date: 01/12/20 Status: OrderedImitrex 100 mg oral tablet 1 tablet = 100 mg, By Mouth, Daily, PRN for migraine headache, may repeat dose after 2 hours up to amaximum of 2, # 9 tablet, 1 Refills, Maintenance, 10/14/19 15:06:00 EDT, Tablet, [facility], 158.5, cm, 08/27/19 12:39:00 EDT, Height, [...] 06/18/18 13:37:18 EDT, Route to Pharmacy Electronically, [id number], [facility] [...] Maintenance, 08/22/16 14:18:07, Route to Pharmacy Electronically, [id number], [facility] Start Date: 08/22/16 Stop Date: [...] 1 Refills, Maintenance, 12/30/19 11:05:00 EST, Tablet, [facility], 158.5, cm, 12/10/19 14:54:00 EDT, Height, 84, kg, 10/05/18 2:07:00 EDT, Dry Weight Start Date: 12/30/19 Status: OrderedVitamin B Complex with Folic Acid oral tablet 1 tablet, By Mouth, Daily, # 90 tablet, 3 Refills, Maintenance, 06/03/19 10:55:00 EDT, Tablet, [facility], 1 tablet By Mouth Daily, 158.5, cm, 04/09/19 15:02:00 EST, Height, 84, kg, 10/05/18 2:07:00 EDT, Dry Weight Start Date: 06/03/19 Status: OrderedVitamin C 500 mg oral tablet 1 tablet = 500 mg, By Mouth, Daily, # 90 tablet, 0 Refills, Maintenance, 01/12/20 14:32:00 EST, Tablet, [facility], 158.5, cm, 01/07/20 15:56:00 EST, Height, 84, kg, 10/05/18 2:07:00 EDT, Dry Weight Start Date: 01/12/20 Stop Date: 04/11/20 Status: OrderedVoltaren 1% topical gel 1 application, Topically, 4 times a day, PRN for pain, # 100 Gm, 0 Refills, Maintenance, 01/07/20 16:13:00 EST, Gel, [facility], Partial fill upon patient request, 1 [...] 81, WNL, 01/02/13.2skin test pos: mold, trees, [id number] Renae Exayqcumtk4exgawgo pantozapole,5[facility] audiology Social History Social History Type Response Smoking Status Former smoker; Tobacco user in household: No; Type: Cigarettes; Tobacco use times per day: UP TO 3 PPD; Stopped at age: 52; entered on: 04/14/14 Sex
--- OUTSIDE RECORDS SUMMARY | 2022-03-26 02:50 | XMS_ITS | Continuity of Care Document ---
:1960 Author Organization [facility] Address [address] [place] [address]- Care Team Providers Name Role Phone Jomar RUBALCAVA, Amilcar Primary Care Physician Encounter [facility] Date(s): 09/19/19 - 10/19/19 [facility] [address] [place] [address]- [facility] Allergies, Adverse Reactions, Alerts Substance [...] atient Refuses 1Result Comment: [12/05/2017] [facility]#[id number] Comment: [11/23/2016] [facility] # [id number] Comment: [12/11/2013] vis [id number] Comment: [11/23/2016] [facility] # [phone] Comment: [04/09/2014] pt stated that she was [...] 02/13/2014:55:00 EST, Inhaler, Route to Pharmacy Electronically, [id number], [facility], 154.94, cm, 02/07/19 11:53:00 EST, [...] Refills, Maintenance, 07/29/19 15:59:00 EDT, EC Tablet, [facility], 158.5, cm, [...] to Pharmacy Electronically, [facility], 158.5,cm, 07/29/19 10:33:00 EDT, Height, [...] 06/18/18 13:37:18 EDT, Route to Pharmacy Electronically, [id number], [facility] Start Date: 06/18/18 [...] Maintenance, 08/22/16 14:18:07, Route to Pharmacy Electronically, [id number], [facility] Start Date: 08/22/16 Stop Date: 08/17/17 [...] 07/23/18 13:46:52 EDT, Route to Pharmacy Electronically, [id number], [facility] Start Date: 07/23/18 Status: OrderedSpiriva Respimat [...] 3 Refills, Maintenance, 06/03/19 10:55:00 EDT, Tablet, [facility], 1 tablet By Mouth Daily, 158.5, cm, 04/09/19 15:02:00 EST, Height, 84, kg, 10/05/18 2:07:00 EDT, Dry Weight Start Date: 06/03/19 Status: OrderedVitamin C 500 mg oral tablet 1 tablet = 500 mg, By Mouth, Daily, # 90 tablet, 0 Refills, Maintenance, 10/14/19 14:32:00 EDT, Tablet, [facility], 158.5, cm, 08/27/19 12:39:00 EDT, Height, [...] 81, WNL, 01/02/13.2skin test pos: mold, trees, [id number] Renae Hxezractdo4pxgnpua pantozapole,5[facility] audiology Social History Social History Type Response Smoking Status Former smoker; Tobacco user in household: No; Type: Cigarettes; Tobacco use times per day: UP TO 3 PPD; Stopped at age: 52; entered on: 04/14/14 Sex
--- OUTSIDE RECORDS SUMMARY | 2022-03-26 02:50 | XMS_ITS | Continuity of Care Document ---
:1960 Author Organization [facility] Address [address] [place] [address]- Care Team Providers Name Role Phone Jomar RUBALCAVA, Amilcar Primary Care Physician Encounter [facility] Date(s): 01/23/20 - 02/22/20 [facility] [address] [place] [address]- Allergies, Adverse Reactions, Alerts Substance Reaction Severity [...] Given P atient Refuses 1Result Comment: [facility][[place] 2]:[id number] Comment: [12/05/2017] [facility]#[id number] Result Comment: [11/23/2016] [facility] # [id number] Comment: [12/11/2013] vis [id number] Comment: [11/23/2016] [facility] # [id number] Comment: [04/09/2014] pt stated that she was [...] 02/13/2014:55:00 EST, Inhaler, Route to Pharmacy Electronically, [id number], [facility], 154.94, cm, 02/07/19 11:53:00 EST, [...] Date: 01/10/18 Status: OrderedCentury Women's Daily Multivitamin [place] Women's Daily Multivitamin, 1, tablet, By [...] Maintenance, 12/19/19 14:27:00 EST, Capsule, [facility], 1 [...] Stop, 10/02/19 12:24:00 EDT, Tablet, [facility], [...] Maintenance, 01/21/20 8:28:00 EST, Tablet, [facility], Partial fill upon patient request [...] Maintenance, 01/12/20 9:22:00 EST, Tablet, [facility], 158.5, cm, 01/07/20 15:56:00 EST, Height, 84, kg, 08... Start Date: 01/12/20 Status: OrderedImitrex 100 mg oral tablet 1 tablet = 100 mg, By Mouth, Daily, PRN for migraine headache, may repeat dose after 2 hours up to amaximum of 2, # 9 tablet, 1 Refills, Maintenance, 10/14/19 15:06:00 EDT, Tablet, [facility], [...] [facility], 158.5, cm, 11/04/19 8:30:00 EDT, [...] Maintenance, 10/17/2011:57:00 EDT, ER Tablet, [facility], 158.5, cm, 08/27/19 12:39:00 EDT, Height, 84, kg, 10/05/18 2:07:00 EDT, Dry Weight Start Date: 10/17/19 Status: Orderedmontelukast 10 mg oral tablet See Instructions, # 90 tablet, Refills 1 Tot. Refills 1, TAKE ONE (1) TABLET BY MOUTH ONCE DAILY IN THE EVENING., [facility] Start Date: 10/31/18 Status: OrderedOne [...] 06/18/18 13:37:18 EDT, Route to Pharmacy Electronically, [id number], [facility] Start Date: 06/18/18 Status: OrderedOrthopedic [...] Maintenance, 08/22/16 14:18:07, Route to Pharmacy Electronically, [id number], [facility] Start Date: 08/22/16 Stop Date: [...] 3 Refills, Maintenance, 06/03/19 10:55:00 EDT, Tablet, [facility], 1 tablet By Mouth Daily, 158.5, cm, 04/09/19 15:02:00 EST, Height, 84, kg, 10/05/18 2:07:00 EDT, Dry Weight Start Date: 06/03/19 Status: OrderedVitamin C 500 mg oral tablet 1 tablet = 500 mg, By Mouth, Daily, # 90 tablet, 0 Refills, Maintenance, 01/12/20 14:32:00 EST, Tablet, [facility], 158.5, cm, 01/07/20 15:56:00 EST, Height, 84, kg, 10/05/18 2:07:00 EDT, Dry Weight Start Date: 01/12/20 Stop Date: 04/11/20 Status: OrderedVoltaren 1% topical gel 1 application, Topically, 4 times a day, PRN for pain, # 100 Gm, 0 Refills, Maintenance, 01/07/20 16:13:00 EST, Gel, [facility], Partial fill upon patient request, 1 [...] 81, WNL, 01/02/13.2skin test pos: mold, trees, [id number] Renae Xjuctighpz6axyvgyw pantozapole,5[facility] aud[facility] Social History Social History Type Response Smoking Status Former smoker; Tobacco user in household: No; Type: Cigarettes; Tobacco use times per day: UP TO 3 PPD; Stopped at age: 52; entered on: 04/14/14 Sex
--- OUTSIDE RECORDS SUMMARY | 2022-03-26 02:50 | XMS_ITS | Continuity of Care Document ---
:1960 Author Organization [facility] Address [address] [place] [address]- Care Team Providers Name Role Phone Amilcar Hadley MD Primary Care Physician Encounter [facility] Date(s): 01/06/20 - 02/05/20 [facility] [address] [place] [address]- Encounter Diagnosis Suspected 2019 novel coronavirus infection (Discharge Diagnosis) - 06/20/19 Attending Physician: Tiffany Denney Admitting Physician: Tiffany Denney Referring Physician: Tiffany Denney Allergies, Adverse Reactions, Alerts Substance Reaction Severity [...] Given P atient Refuses 1Result Comment: [facility]:[id number] Comment: [12/05/2017] [facility]#[phone] Result Comment: [11/23/2016] [facility] # [id number] Comment: [12/11/2013] vis [id number] Comment: [11/23/2016] [facility] # [id number] Comment: [04/09/2014] pt stated that she was [...] 02/13/2014:55:00 EST, Inhaler, Route to Pharmacy Electronically, [id number], [facility], 154.94, cm, 02/07/19 11:53:00 [...] Refills, Maintenance, 07/10/19 13:08:00 EDT, Tablet, [facility], 158.5, cm, 07/01/19 12:34:00 EDT, Height, [...] 0 Refills, Maintenance, 12/19/19 14:27:00 EST, Capsule, [facility], 1 capsule By Mouth Daily, 158.5, [...] Refills, Soft Stop, 10/02/19 12:24:00 EDT, Tablet, [facility] [...] 0 Refills, Maintenance, 01/21/20 8:28:00 EST, Tablet, [facility], Partial fill upon patient request if [...] 1 Refills, Maintenance, 01/12/20 9:22:00 EST, Tablet, [facility], 158.5, cm, 01/07/20 15:56:00 EST, Height, [...] 06/18/18 13:37:18 EDT, Route to Pharmacy Electronically, [id number], [facility] Start [...] Maintenance, 08/22/16 14:18:07, Route to Pharmacy Electronically, [id number], [facility] Start Date: 08/22/16 Stop Date: [...] 1 Refills, Maintenance, 12/30/19 11:05:00 EST, Tablet, [facility], 158.5, cm, 12/10/19 14:54:00 EDT, Height, 84, kg, 10/05/18 2:07:00 EDT, Dry Weight Start Date: 12/30/19 Status: OrderedVitamin B Complex with Folic Acid oral tablet 1 tablet, By Mouth, Daily, # 90 tablet, 3 Refills, Maintenance, 06/03/19 10:55:00 EDT, Tablet, [facility], 1 tablet By Mouth Daily, 158.5, cm, 04/09/19 15:02:00 EST, Height, 84, kg, 10/05/18 2:07:00 EDT, Dry Weight Start Date: 06/03/19 Status: OrderedVitamin C 500 mg oral tablet 1 tablet = 500 mg, By Mouth, Daily, # 90 tablet, 0 Refills, Maintenance, 01/12/20 14:32:00 EST, [facility]t, [facility], 158.5, cm, 01/07/20 15:56:00 EST, Height, 84, kg, 10/05/18 2:07:00 EDT, Dry Weight Start Date: 01/12/20 Stop Date: 04/11/20 Status: OrderedVoltaren 1% topical gel 1 application, Topically, 4 times a day, PRN for pain, # 100 Gm, 0 Refills, Maintenance, 01/07/20 16:13:00 EST, Gel, [facility], [facility] fill upon patient request, 1 [...] 81, WNL, 01/02/13.2skin test pos: mold, trees, [id number] Renae [id number] pantozapole,[facility] Diagnosis Diagnosis Type Effective Dates Health Clinical Infor mant Status Service Suspected 2019 Discharge 06/20/19 novel coronavirus Diagnosis infection Social History Social History Type Response Smoking Status Former smoker; Tobacco user in household: No; Type: Cigarettes; Tobacco use times per day: UP TO 3 PPD; Stopped at age: 52; entered on: 04/14/14 Sex
--- OUTSIDE RECORDS SUMMARY | 2022-03-26 02:50 | XMS_ITS | Continuity of Care Document ---
:1960 Author Organization [facility] Address [address] [place] [address]- Care Team Providers Name Role Phone Cami Isaac MD Primary Care Physician [facility] Date[facility]s): 02/07/19 - 02/17/19 [facility] [address] [place] [address]- [facility] Attending Physician: Tiffany Denney Admitting Physician: AdmTiffany [...] Given P atient Refuses 1Result Comment: [12/05/2017] [facility]#[id number] Comment: [11/23/2016] [facility] # [id number] Comment: [12/11/2013] vis [id number] Comment: [11/23/2016] [facility] # [id number] Comment: [04/09/2014] pt stated that she was [...] 02/13/2014:55:00 EST, Inhaler, Route to Pharmacy Electronically, [id number], [facility], 154.94, cm, 02/07/19 11:53:00 [...] 02/04/19 15:07:00 EST, Route to Pharmacy Electronically, [facility], 154.94, cm, 12/13/18 13:54:00 [...] 11/06/18 15:21:23 EDT, Route to Pharmacy Electronically, [id number], [facility] Start Date: 11/06/18 Stop Date: 11/11/18 [...] EST, Route to Pharmacy Electronically, [facility], 154.94, cm, 12/13/18 13:54:00 [...] ONCE DAILY IN THE EVENING., [facility] Start Date: 10/31/18 Status: OrderedMultivitamin Daily, [...] 06/18/18 13:37:18 EDT, Route to Pharmacy Electronically, [id number], [facility] Start Date: 06/18/18 Status: [...] Maintenance, 08/22/16 14:18:07, Route to Pharmacy Electronically, [id number], [facility] Start Date: 08/22/16 Stop Date: 08/17/17 Status: OrderedpredniSONE 20 mg oral tablet See Instructions, 3 tabs PO QD x3 days, then 2 tabs PO QD x3 days, then 1 tab PO QD x3 days., # 18 tablet, 0 Refills, Acute 02/21/19 13:17:00 EST, 02/07/19 13:16:00 EST, Tablet, [facility], 154.94, cm, 02/07/19 11:53:00 EST, Height, [...] 07/23/18 13:46:52 EDT, Route to Pharmacy Electronically, [id number], [facility] Start Date: 07/23/18 Status: OrderedSpiriva [...] 81, WNL, 01/02/13.2skin test pos: mold, trees, byzsg6Ub Renae Fdklxizrue2ovvxxki pantozapole,5[facility] Social History Social History Type Response Smoking Status Former smoker; Tobacco user in household: No; Type: Cigarettes; Tobacco use times per day: UP TO 3 PPD; Stopped at age: 52; entered on: 04/14/14 Sex
--- OUTSIDE RECORDS SUMMARY | 2022-03-26 02:50 | XMS_ITS | Continuity of Care Document ---
:1960 Author Organization [facility] Address [address] [place] [address]- Care Team Providers Name Role Phone Amilcar Hadley MD Primary Care Physician Encounter [facility] Date(s): 07/25/19 - 08/24/19 [facility] [address] [place] [address]- [facility] Attending Physician: Randi ALVARADO, Elizabeth Sharpe Allergies, Adverse Reactions, Alerts Substance Reaction Severity [...] P atient Refuses 1Result Comment: [12/05/2017] [facility]#[id number] Comment: [11/23/2016] [facility] # [id number] Comment: [12/11/2013] vis [id number] Comment: [11/23/2016] [facility] # [phone] Comment: [04/09/2014] pt stated that she was [...] 02/13/2014:55:00 EST, Inhaler, Route to Pharmacy Electronically, [id number], [facility], 154.94, cm, [...] 3 Refills, Maintenance, 07/10/19 13:08:00 EDT, Tablet, [facility], 158.5, cm, 07/01/19 12:34:00 EDT, Height, [...] 0 Refills, Maintenance, 02/26/19 10:39:00 EST, Capsule, [facility], 1 capsule By Mouth Daily, 154.94, [...] Refills, Maintenance, 07/29/19 15:59:00 EDT, EC Tablet, [facility], 158.5, cm, 07/29/19 10:33:00 EDT, Height, [...] 04/27/17 10:23:06, Compound Start Date: 3/16/18 Status: OrderedLinzess By Mouth, Daily, 0 Refills, [...] 06/18/18 13:37:18 EDT, Route to Pharmacy Electronically, [id number], [facility] Start Date: 06/18/18 Status: OrderedOrthopedic shoes [...] Maintenance, 08/22/16 14:18:07, Route to Pharmacy Electronically, [id number], [facility] Start Date: 08/22/16 Stop Date: 08/17/17 [...] 07/23/18 13:46:52 EDT, Route to Pharmacy Electronically, [id number], [facility] Start Date: 07/23/18 Status: OrderedSpiriva Respimat [...] 3 Refills, Maintenance, 06/03/19 10:55:00 EDT, Tablet, [facility], 1 tablet By Mouth Daily, 158.5, cm, 04/09/19 15:02:00 EST, Height, 84, kg, 10/05/18 2:07:00 EDT, Dry Weight Start Date: 06/03/19 Status: OrderedVitamin C 500 mg oral tablet 1 tablet = 500 mg, By Mouth, Daily, # 90 tablet, 0 Refills, Maintenance, 06/20/19 8:43:00 EDT, Tablet, [facility], 158.5, cm, 06/18/19 13:31:00 EDT, Height, [...] 81, WNL, 01/02/13.2skin test pos: mold, trees, ihhqb2Zb Renae Zjdpytpnas8ubbkqia pantozapole,5[facility] Social History Social History Type Response Smoking Status Former smoker; Tobacco user in household: No; Type: Cigarettes; Tobacco use times per day: UP TO 3 PPD; Stopped at age: 52; entered on: 04/14/14 Sex
--- OUTSIDE RECORDS SUMMARY | 2022-03-26 02:50 | XMS_ITS | Continuity of Care Document ---
:1960 Author Organization [facility] Address [address] [place] [address]- Care Team Providers Name Role Phone Jomar RUBALCAVA, Amilcar Primary Care Physician [facility] Date[facility]s): 09/25/19 - 10/25/19 [facility] [address] [place] [address]- [facility] Allergies, Adverse Reactions, Alerts Substance Reaction Severity [...] P atient Refuses 1Result Comment: [12/05/2017] [facility]#[phone] Comment: [11/23/2016] [facility] # [id number] Comment: [12/11/2013] vis [id number] Comment: [11/23/2016] [facility] # [phone] Comment: [04/09/2014] pt stated that she was [...] 02/13/2014:55:00 EST, Inhaler, Route to Pharmacy Electronically, [id number], [facility], 154.94, cm, 02/07/19 11:53:00 EST, He... [...] 0 Refills, Maintenance, 08/28/19 11:01:00 EDT, Capsule, [facility], 1 capsule [...] Refills, Soft Stop, 10/02/19 12:24:00 EDT, Tablet, [facility], 158.5, cm, 08/27/19 12:39:00 EDT, Height, 84, kg, 10/05/18 2:07:00 EDT, Dry Weight Start Date: 10/02/19 Status: Orderedepinephrine 0.3 mg injectable solution 0 Refills, Maintenance, 12/13/18 14:05:43 EDT Start Date: 12/13/18 Status: OrderedEstrace 1 mg oral tablet 1 mg, 1, tablet, By Mouth, Daily, # 90 tablet, Refills 1, Tot. Refills 1, Maintenance, 11/12/19 16:44:00 EDT, Route to Pharmacy Electronically, [facility], 158.5, cm, 08/27/19 12:39:00 EDT, Height, 84, kg, 10/05/18 2:07:00 EDT, Dry Weight Start Date: 11/12/19 Stop Date: 05/10/20 Status: OrderedEstrace 1 mg oral tablet 1 mg, 1, tablet, By Mouth, Daily, for 90 days, # 90 tablet, Refills 0, Tot. Refills 0, Hard Stop 11/12/19 16:44:00 EDT, 08/14/19 16:44:00 EDT, Route to Pharmacy Electronically, [facility], 158.5,cm, 07/29/19 10:33:00 EDT, Height, 84, [...] 08/19/19 8:20:00 EDT, Route to Pharmacy Electronically, [facility], 158.5, cm, 08/04/19 16:24:00EDT, Height, 84, [...] 1 Refills, Maintenance, 10/14/19 15:06:00 EDT, Tablet, [facility], 158.5, cm, 08/27/19 12:39:00 EDT, Height, [...] 5 Refills, Maintenance, 10/17/2011:57:00 EDT, ER Tablet, [facility], 158.5, cm, 08/27/19 12:39:00 EDT, Height, [...] 06/18/18 13:37:18 EDT, Route to Pharmacy Electronically, [id number], [facility] Start Date: 06/18/18 [...] Maintenance, 08/22/16 14:18:07, Route to Pharmacy Electronically, [id number], [facility] Start Date: 08/22/16 Stop Date: 08/17/17 [...] 07/23/18 13:46:52 EDT, Route to Pharmacy Electronically, [id number], [facility] Start Date: 07/23/18 Status: OrderedSpiriva Respimat [...] 3 Refills, Maintenance, 06/03/19 10:55:00 EDT, Tablet, [facility], 1 tablet By Mouth Daily, 158.5, cm, 04/09/19 15:02:00 EST, Height, 84, kg, 10/05/18 2:07:00 EDT, Dry Weight Start Date: 06/03/19 Status: OrderedVitamin C 500 mg oral tablet 1 tablet = 500 mg, By Mouth, Daily, # 90 tablet, 0 Refills, Maintenance, 10/14/19 14:32:00 EDT, Tablet, [facility], 158.5, cm, 08/27/19 12:39:00 EDT, Height, [...] 81, WNL, 01/02/13.2skin test pos: mold, trees, ooggm9Qb Renae Gqwlbidlwg3fqxcorm pantozapole,5[facility] audiology Social History Social History Type Response Smoking Status Former smoker; Tobacco user in household: No; Type: Cigarettes; Tobacco use times per day: UP TO 3 PPD; Stopped at age: 52; entered on: 04/14/14 Sex
--- OUTSIDE RECORDS SUMMARY | 2022-03-26 02:50 | XMS_ITS | Continuity of Care Document ---
:1960 Author Organization [facility] Address [address] [place] [address]- Care Team Providers Name Role Phone Jomar RUBALCAVA, Amilcar Primary Care Physician [facility] Date[facility]s): 04/23/19 - 06/04/19 [facility] [address] [place] [address]- [facility] Attending Physician: Cami Guthrie MD Allergies, [...] Comment: [12/05/2017] [facility]#[phone] Comment: [11/23/2016] [facility] # [phone] Comment: [12/11/2013] vis [id number] Comment: [11/23/2016] [facility] # [phone] Comment: [04/09/2014] pt stated that she was [...] 02/13/2014:55:00 EST, Inhaler, Route to Pharmacy Electronically, [id number], [facility], 154.94, [...] Refills, Maintenance, 02/26/19 10:39:00 EST, Capsule, [facility], 1 capsule By Mouth Daily, 154.94, [...] BY MOUTH ONCE DAILY IN THE EVENING., [facility] Start Date: 10/31/18 Status: OrderedOne Touch [...] 06/18/18 13:37:18 EDT, Route to Pharmacy Electronically, [id number], [facility] Start Date: 06/18/18 Status: OrderedOrthopedic shoes [...] Maintenance, 08/22/16 14:18:07, Route to Pharmacy Electronically, [id number], [facility] Start Date: 08/22/16 Stop Date: 08/17/17 [...] 07/23/18 13:46:52 EDT, Route to Pharmacy Electronically, [id number], [facility] Start Date: 07/23/18 Status: OrderedSpiriva [...] 3 Refills, Maintenance, 06/03/19 10:55:00 EDT, Tablet, [facility], 1 tablet By Mouth Daily, 158.5, cm, 04/09/19 15:02:00 EST, Height, 84, kg, 10/05/18 2:07:00 EDT, Dry Weight Start Date: 06/03/19 Status: OrderedVitamin C 500 mg oral tablet 1 tablet = 500 mg, By Mouth, Daily, # 90 tablet, 0 Refills, Maintenance, 03/10/19 8:42:00 EST, Tablet, [facility], [...] 81, WNL, 01/02/13.2skin test pos: mold, trees, ooxum0Ba Renae Oktuqkcksc1zkahshs pantozapole,5[facility] audiology Social History Social History Type Response Smoking Status Former smoker; Tobacco user in household: No; Type: Cigarettes; Tobacco use times per day: UP TO 3 PPD; Stopped at age: 52; entered on: 04/14/14 Sex
--- OUTSIDE RECORDS SUMMARY | 2022-03-26 02:50 | XMS_ITS | Continuity of Care Document ---
:1960 Author Organization [facility] Address [address] [place] [address]- Care Team Providers Name Role Phone Amilcar Hadley MD Primary Care Physician Encounter [facility] Date(s): 11/13/19 - 12/20/19 [facility] [address] [place] [address]- Attending Physician: Not on Staff, Attending MD Referring Physician: Amilcar Hadley MD Allergies, Adverse Reactions, Alerts Substance Reaction Severity Status propranolol Active amoxicillin abdominal pain Active nabumetone Active doxycycline hives Active thiazide [...] Not Given P atient Refuses 1Result Comment: [facility]:[phone] Comment: [12/05/2017] [facility]#[id number] Result Comment: [11/23/2016] [facility] # [phone] Comment: [12/11/2013] vis [id number] Comment: [11/23/2016] [facility] # [phone] Comment: [04/09/2014] pt stated that she was [...] 02/13/2014:55:00 EST, Inhaler, Route to Pharmacy Electronically, [id number], [facility], 154.94, cm, 02/07/19 11:53:00 EST, [...] 3 Refills, Maintenance, 07/10/19 13:08:00 EDT, Tablet, [facility], 158.5, cm, 07/01/19 12:34:00 EDT, Height, [...] 0 Refills, Maintenance, 12/19/19 14:27:00 EST, Capsule, [facility], 1 capsule By Mouth Daily, 158.5, [...] Instructions Replace Required Details,Route to Pharmacy Electronically, [facility] Start Date: 11/21/19 Status: OrderedGas-X = [...] Refills, Maintenance, 11/21/19 13:47:00 EDT, Tablet, [facility], 158.5, cm, 11/19/19 15:50:00 EDT, Height, [...] 06/18/18 13:37:18 EDT, Route to Pharmacy Electronically, [id number], [facility] [...] Maintenance, 08/22/16 14:18:07, Route to Pharmacy Electronically, [id number], [facility] Start Date: 08/22/16 Stop [...] 81, WNL, 01/02/13.2skin test pos: mold, trees, nfbeo9Pk Renae Xldtuhvkbs8jqdaprh pantozapole,5[facility] audiology Social History Social History Type Response Smoking Status Former smoker; Tobacco user in household: No; Type: Cigarettes; Tobacco use times per day: UP TO 3 PPD; Stopped at age: 52; entered on: 04/14/14 Sex
--- OUTSIDE RECORDS SUMMARY | 2022-03-26 02:51 | XMS_ITS | Continuity of Care Document ---
:1960 Author Organization [facility] Address [address] [place] [address]- Care Team Providers Name Role Phone Jomar RUBALCAVA, Amilcar Primary Care Physician [facility] Date(s): 12/29/19 - 01/28/20 [facility] [address] [place] [address]- Allergies, Adverse Reactions, Alerts Substance Reaction Severity [...] Not Given P atient Refuses 1Result Comment: [facility]:[phone] Comment: [12/05/2017] [facility]#[phone] Result Comment: [11/23/2016] [facility] # [id number] Comment: [12/11/2013] vis [id number] Comment: [11/23/2016] [facility] # [phone] Comment: [04/09/2014] pt stated that she was [...] 02/13/2014:55:00 EST, Inhaler, Route to Pharmacy Electronically, [id number], [facility], 154.94, cm, 02/07/19 [...] Date: 01/10/18 Status: OrderedCentury Women's Daily Multivitamin [place] Women's Daily Multivitamin, 1, tablet, By Mouth, [...] 0 Refills, Maintenance, 01/21/20 8:28:00 EST, Tablet, [facility], Partial fill upon patient request [...] 1 Refills, Maintenance, 01/12/20 9:22:00 EST, Tablet, [facility], 158.5, cm, 01/07/20 15:56:00 EST, [...] 06/18/18 13:37:18 EDT, Route to Pharmacy Electronically, [id number], [facility] Start Date: 06/18/18 Status: OrderedOrthopedic [...] Maintenance, 08/22/16 14:18:07, Route to Pharmacy Electronically, [id number], [facility] Start Date: 08/22/16 Stop Date: [...] 1 Refills, Maintenance, 12/30/19 11:05:00 EST, Tablet, [facility], 158.5, cm, 12/10/19 14:54:00 EDT, Height, 84, kg, 10/05/18 2:07:00 EDT, Dry Weight Start Date: 12/30/19 Status: OrderedVitamin B Complex with Folic Acid oral tablet 1 tablet, By Mouth, Daily, # 90 tablet, 3 Refills, Maintenance, 06/03/19 10:55:00 EDT, Tablet, [facility], 1 tablet By Mouth Daily, 158.5, cm, 04/09/19 15:02:00 EST, Height, 84, kg, 10/05/18 2:07:00 EDT, Dry Weight Start Date: 06/03/19 Status: OrderedVitamin C 500 mg oral tablet 1 tablet = 500 mg, By Mouth, Daily, # 90 tablet, 0 Refills, Maintenance, 01/12/20 14:32:00 EST, Tablet, [facility], 158.5, cm, 01/07/20 15:56:00 EST, Height, 84, kg, 10/05/18 2:07:00 EDT, Dry Weight Start Date: 01/12/20 Stop Date: 04/11/20 Status: OrderedVoltaren 1% topical gel 1 application, Topically, 4 times a day, PRN for pain, # 100 Gm, 0 Refills, Maintenance, 01/07/20 16:13:00 EST, Gel, [facility], Partial fill upon patient request, 1 [...] 81, WNL, 01/02/13.2skin test pos: mold, trees, jqdhr7Td Renae Zlmczvfidq1ujdmrpg pantozapole,5[facility] audiology Social History Social History Type Response Smoking Status Former smoker; Tobacco user in household: No; Type: Cigarettes; Tobacco use times per day: UP TO 3 PPD; Stopped at age: 52; entered on: 04/14/14 Sex
--- OUTSIDE RECORDS SUMMARY | 2022-03-26 02:51 | XMS_ITS | Continuity of Care Document ---
:1960 Author Organization [facility] Address [address] [place] [address]- Care Team Providers Name Role Phone Amilcar Hadley MD Primary Care Physician [place] [facility] [place](s[place] 04/09/19 - 04/16/19 [facility] [address] [place] [address]- [facility] Encounter Diagnosis Hospital discharge follow-up (Discharge Diagnosis) - 04/09/19 Diabetes mellitus (Discharge Diagnosis) - 04/09/19 Candidiasis of skin (Discharge Diagnosis) - 04/09/19 Pleuritis (Discharge Diagnosis) - 04/09/19 Attending Physician: Amilcar Hadley MD Allergies, Adverse [...] P atient Refuses 1Result Comment: [12/05/2017] [facility]#[id number] Comment: [11/23/2016] [facility] # [phone] Comment: [12/11/2013] vis [id number] Comment: [11/23/2016] [facility] # [phone] Comment: [04/09/2014] pt stated that she was [...] 02/13/2014:55:00 EST, Inhaler, Route to Pharmacy Electronically, [id number], [facility], 154.94, cm, 02/07/19 11:53:00 EST, [...] 0 Refills, Maintenance, 02/26/19 10:39:00 EST, Capsule, [facility], 1 capsule By Mouth Daily, 154.94, [...] 0 Refills, Maintenance, 02/27/19 13:56:00 EST, Patch, [facility], 158.5, cm, 02/27/19 13:31:00 EST, Height, 84, kg, 10/05/18 2:07:00 EDT, Dry Weight Start Date: 02/27/19 Stop Date: 05/28/19 Status: OrderedFish Oil 1000 mg oral capsule 1 capsule = 1,000 mg, By Mouth, Daily, # 90 capsule, 3 Refills, Maintenance, 02/26/19 10:39:00 EST, Capsule, [facility], 154.94, cm, 02/26/19 10:16:00 EST, Height, [...] EST, Route to Pharmacy Electronically, [facility], 158.5, cm, 03/18/19 11:38:00 [...] EST, Route to Pharmacy Electronically, [facility], 154.94, [...] EST, Route to Pharmacy Electronically, [facility], 154.94, cm, 12/13/18 13:54:00 EDT, [...] Maintenance, 02/28/2010:35:00 EST, ER Tablet, [facility], 158.5, cm, 02/27/19 13:31:00 [...] 06/18/18 13:37:18 EDT, Route to Pharmacy Electronically, [id number], [facility] Start Date: 06/18/18 Status: OrderedOrthopedic [...] Maintenance, 08/22/16 14:18:07, Route to Pharmacy Electronically, [id number], [facility] Start Date: 08/22/16 Stop Date: [...] 07/23/18 13:46:52 EDT, Route to Pharmacy Electronically, [id number], [facility] Start Date: 07/23/18 Status: [...] 0 Refills, Maintenance, 02/26/19 10:41:00 EST, Tablet, [facility], 154.94, cm, 02/26/19 10:16:00 EST, Height, 84, kg, 10/05/18 2:07:00 EDT, Dry Weight Start Date: 02/26/19 Status: OrderedVitamin B Complex with Folic Acid oral tablet 1 tablet, By Mouth, Daily, # 90 tablet, 3 Refills, Maintenance, 02/26/19 10:39:00 EST, Tablet, [facility], 1 tablet By Mouth Daily, 154.94, [...] 0 Refills, Maintenance, 03/10/19 8:42:00 EST, Tablet, [facility], 158.5, cm, 02/27/19 13:31:00 EST, Height, [...] 81, WNL, 01/02/13.2skin test pos: mold, trees, teghw0Ih Renae Fgdtgwzbnx3wojrzub pantozapole,5[facility] audiology Diagnosis Diagnosis Type Effective Dates Health Clinical Infor mant Status Service Candidiasis of Discharge 04/09/19 skin Diagnosis Pleuritis Discharge 04/09/19 Diagnosis Diabetes mellitus Discharge 04/09/19 Diagnosis Hospital discharge Discharge 04/09/19 follow-up Diagnosis Vital Signs Most recent to oldest [Reference Range]: 1 Height 158.5 cm (04/09/19 3:02 PM) Oxygen Saturation [94-100 %] 98 % (04/09/19 3:02 PM) Pulse Rate [55-90 bpm] 95 bpm *H* (04/09/19 3:02 PM) Blood Pressure [90-138/55-84 mm Hg] 120/60 mm Hg (04/09/19 3:02 PM) Temperature [96.8-100.4 DegF] 98.1 DegF (04/09/19 3:02 PM) Mode of Delivery (Oxygen) Room air (04/09/19 3:02 PM) Blood pressure sites Arm, left (04/09/19 3:02 PM) Temperature Route Oral (04/09/19 3:02 PM) Social History Social History Type Response Smoking Status Former smoker; Tobacco user in household: No; Type: Cigarettes; Tobacco use times per day: UP TO 3 PPD; Stopped at age: 52; entered on: 04/14/14 Sex
--- OUTSIDE RECORDS SUMMARY | 2022-03-26 02:51 | XMS_ITS | Continuity of Care Document ---
:1960 Author Organization [facility] Address [address] [place] [address]- Care Team Providers Name Role Phone Jomar RUBALCAVA, Amilcar Primary Care Physician Encounter [facility] Date(s): 11/06/19 - 11/13/19 [facility] [address] [place] [address]- [facility] Encounter Diagnosis Radicular low back pain (Discharge Diagnosis) - 11/06/19 Attending Physician: Keon FILTRATION OPERATOR, Crystal Allergies, Adverse Reactions, Alerts Substance Reaction [...] Given P atient Refuses 1Result Comment: [12/05/2017] [facility]#[id number] Comment: [11/23/2016] [facility] # [id number] Comment: [12/11/2013] vis [id number] Comment: [11/23/2016] [facility] # [id number] Comment: [04/09/2014] pt stated that she was [...] 02/13/2014:55:00 EST, Inhaler, Route to Pharmacy Electronically, [id number], [facility], 154.94, cm, 02/07/19 [...] 3 Refills, Maintenance, 07/10/19 13:08:00 EDT, Tablet, [facility], 158.5, cm, 07/01/19 12:34:00 EDT, Height, [...] 0 Refills, Maintenance, 08/28/19 11:01:00 EDT, Capsule, [facility], 1 capsule By Mouth Daily, 158.5, [...] Refills, Soft Stop, 10/02/19 12:24:00 EDT, Tablet, [facility], 158.5, cm, 08/27/19 12:39:00 EDT, Height, [...] 08/19/19 8:20:00 EDT, Route to Pharmacy Electronically, [facility], 158.5, cm, 08/04/19 16:24:00EDT, [...] 11/06/19 12:00:00 EDT, Route to Pharmacy Electronically, [facility], 158.5, cm, 11/06/19 10:48:00 EDT, [...] 5 Refills, Maintenance, 10/17/2011:57:00 EDT, ER Tablet, [facility], 158.5, cm, 08/27/19 12:39:00 EDT, Height, 84, kg, 10/05/18 2:07:00 EDT, Dry Weight Start Date: 10/17/19 Status: Orderedmontelukast 10 mg oral tablet See Instructions, # 90 tablet, Refills 1 Tot. Refills 1, TAKE ONE (1) TABLET BY MOUTH ONCE DAILY IN THE EVENING., [facility] Start Date: 10/31/18 Status: OrderedOne [...] 06/18/18 13:37:18 EDT, Route to Pharmacy Electronically, [id number], [facility] Start Date: 06/18/18 [...] Maintenance, 08/22/16 14:18:07, Route to Pharmacy Electronically, [id number], [facility] Start Date: 08/22/16 Stop Date: 08/17/17 [...] 1 Refills, Maintenance, 11/06/19 11:59:00 EDT, Tablet, [facility], 158.5, cm, 11/06/19 10:48:00 EDT,Height, 84, kg, 10/05/18 2:07:00 EDT, Dry Weight Start Date: 11/06/19 Status: OrderedVitamin B Complex with Folic Acid oral tablet 1 tablet, By Mouth, Daily, # 90 tablet, 3 Refills, Maintenance, 06/03/19 10:55:00 EDT, Tablet, [facility], 1 tablet By Mouth Daily, 158.5, cm, 04/09/19 15:02:00 EST, Height, 84, kg, 10/05/18 2:07:00 EDT, Dry Weight Start Date: 06/03/19 Status: OrderedVitamin C 500 mg oral tablet 1 tablet = 500 mg, By Mouth, Daily, # 90 tablet, 0 Refills, Maintenance, 10/14/19 14:32:00 EDT, Tablet, [facility], 158.5, cm, 08/27/19 12:39:00 EDT, Height, [...] 81, WNL, 01/02/13.2skin test pos: mold, trees, [id number] Renae Uvhmorkpzc8howpakw pantozapole,5[facility] Diagnosis Diagnosis Type Effective Dates Health Status Clinical In formant Service Radicular low Discharge 11/06/19 back pain Diagnosis Vital Signs Most recent to oldest [Reference Range]: 1 Height 158.5 cm (11/06/19 10:48 AM) Social History Social History Type Response Smoking Status Former smoker; Tobacco user in household: No; Type: Cigarettes; Tobacco use times per day: UP TO 3 PPD; Stopped at age: 52; entered on: 04/14/14 Sex
--- OUTSIDE RECORDS SUMMARY | 2022-03-26 02:51 | XMS_ITS | Continuity of Care Document ---
:1960 Author Organization [facility] Address [address] [place] [address]- Care Team Providers Name Role Phone Jomar RUBALCAVA, Amilcar Primary Care Physician [facility] Date[facility]s): [facility] - 12/14/19 [facility] [address] [place] [address]- [facility] Allergies, Adverse Reactions, Alerts Substance Reaction [...] Not Given P atient Refuses 1Result Comment: [facility]:[id number] Comment: [12/05/2017] [facility]#[id number] Result Comment: [11/23/2016] [facility] # [id number] Comment: [12/11/2013] vis [id number] Comment: [11/23/2016] [facility] # [id number] Comment: [04/09/2014] pt stated that she was [...] 02/13/2014:55:00 EST, Inhaler, Route to Pharmacy Electronically, [id number], [facility], 154.94, cm, 02/07/19 11:53:00 [...] 3 Refills, Maintenance, 07/10/19 13:08:00 EDT, Tablet, [facility], 158.5, cm, 07/01/19 12:34:00 EDT, Height, [...] 0 Refills, Maintenance, 08/28/19 11:01:00 EDT, Capsule, [facility], 1 capsule By Mouth Daily, 158.5, [...] Refills, Soft Stop, 10/02/19 12:24:00 EDT, Tablet, [facility], 158.5, cm, 08/27/19 12:39:00 EDT, Height, 84, kg, 10/05/18 2:07:00 EDT, Dry Weight Start Date: 10/02/19 Status: Orderedepinephrine 0.3 mg injectable solution 0 Refills, Maintenance, 12/13/18 14:05:43 EDT Start Date: 12/13/18 Status: OrderedEstrace 1 mg oral tablet 1 mg, 1, tablet, By Mouth, Daily, # 90 tablet, Refills 1, Tot. Refills 1, Maintenance, 11/12/19 16:44:00 EDT, Route to Pharmacy Electronically, [facility], 158.5, cm, 08/27/19 12:39:00 EDT, Height, 84, kg, 10/05/18 2:07:00 EDT, Dry Weight Start Date: 11/12/19 Stop Date: 05/10/20 Status: OrderedFish Oil 1000 mg oral capsule 1 capsule = 1,000 mg, By Mouth, Daily, # 90 capsule, 3 Refills, Maintenance, 02/26/19 10:39:00 EST, Capsule, [facility], 154.94, cm, 02/26/19 10:16:00 EST, Height, [...] Instructions Replace Required Details,Route to Pharm[facility] Electronically, [facility] Start Date: 11/21/19 Status: OrderedGas-X = [...] 11/06/19 12:00:00 EDT, Route to Pharmacy Electronically, [facility], 158.5, cm, 11/06/19 10:48:00 EDT, Heig... Start Date: 11/06/19 Stop Date: 11/20/19 Status: OrderedImitrex 100 mg oral tablet 1 tablet = 100 mg, By Mouth, Daily, PRN for migraine headache, may repeat dose after 2 hours up to amaximum of 2, # 9 tablet, 1 Refills, Maintenance, 11/21/19 13:47:00 EDT, Tablet, [facility], 158.5, cm, 11/19/19 15:50:00 EDT, Height, 84, kg, 0... Start Date: 11/21/19 Status: OrderedImitrex 100 mg oral tablet 1 tablet = 100 mg, By Mouth, Daily, PRN for migraine headache, may repeat dose after 2 hours up to amaximum of 2, # 9 tablet, 1 Refills, Maintenance, 10/14/19 15:06:00 EDT, Tablet, [facility], 158.5, cm, 08/27/19 12:39:00 EDT, Height, [...] 5 Refills, Maintenance, 10/17/2011:57:00 EDT, ER Tablet, [facility], 158.5, cm, 08/27/19 12:39:00 EDT, Height, 84, kg, 10/05/18 2:07:00 EDT, Dry Weight Start Date: 10/17/19 Status: Orderedmontelukast 10 mg oral tablet See Instructions, # 90 tablet, Refills 1 Tot. Refills 1, TAKE ONE (1) TABLET BY MOUTH ONCE DAILY IN THE EVENING., [facility] Start Date: 10/31/18 Status: OrderedOne Touch [...] 06/18/18 13:37:18 EDT, Route to Pharmacy Electronically, [id number], [facility] Start Date: 06/18/18 Status: OrderedOrthopedic shoes [...] 12/09/19 16:59:00 EDT, Route to Pharmacy Electronically, [facility] [id number] ([employer]... Start Date: 12/09/19 Stop Date: 12/18/19 Status: Orderedpantoprazole 40 mg oral delayed release tablet 40 mg, By Mouth, 2 times a day, # 180 each, Refills 3, Tot. Refills 3, Maintenance, 08/22/16 14:18:07, Route to Pharmacy Electronically, [id number], [facility] [...] 1 Refills, Maintenance, 11/06/19 11:59:00 EDT, Tablet, [facility], 158.5, cm, 11/06/19 10:48:00 EDT,Height, 84, kg, 10/05/18 2:07:00 EDT, Dry Weight Start Date: 11/06/19 Status: OrderedVitamin B Complex with Folic Acid oral tablet 1 tablet, By Mouth, Daily, # 90 tablet, 3 Refills, Maintenance, 06/03/19 10:55:00 EDT, Tablet, [facility], 1 tablet By Mouth Daily, 158.5, cm, 04/09/19 15:02:00 EST, Height, 84, kg, 10/05/18 2:07:00 EDT, Dry Weight Start Date: 06/03/19 Status: OrderedVitamin C 500 mg oral tablet 1 tablet = 500 mg, By Mouth, Daily, # 90 tablet, 0 Refills, Maintenance, 10/14/19 14:32:00 EDT, Tablet, [facility], 158.5, cm, 08/27/19 12:39:00 EDT, Height, [...] 81, WNL, 01/02/13.2skin test pos: mold, trees, [id number] Renae Mfsnvsbpyh0xvksyze pantozapole,5[facility] Social History Social History Type Response Smoking Status Former smoker; Tobacco user in household: No; Type: Cigarettes; Tobacco use times per day: UP TO 3 PPD; Stopped at age: 52; entered on: 04/14/14 Sex
--- OUTSIDE RECORDS SUMMARY | 2022-03-26 02:51 | XMS_ITS | Continuity of Care Document ---
:1960 Author Organization [facility] Address [address] [place] [address]- Care Team Providers Name Role Phone Amilcar Hadley MD Primary Care Physician [facility] Date[facility]s): 03/24/19 - 05/01/19 [facility] [address] [place] [address]- [facility] Attending Physician: Amilcar Hadley MD [...] atient Refuses 1Result Comment: [12/05/2017] [facility]#[id number] Comment: [11/23/2016] [facility] # [id number] Comment: [12/11/2013] vis [id number] Comment: [11/23/2016] [facility] # [id number] Comment: [04/09/2014] pt stated that she was [...] 02/13/2014:55:00 EST, Inhaler, Route to Pharmacy Electronically, [id number], [facility], 154.94, cm, 02/07/19 11:53:00 EST, [...] 0 Refills, Maintenance, 02/26/19 10:39:00 EST, Capsule, [facility], 1 capsule By Mouth Daily, 154.94, [...] 0 Refills, Maintenance, 02/27/19 13:56:00 EST, Patch, [facility], 158.5, cm, 02/27/19 13:31:00 EST, Height, 84, kg, 10/05/18 2:07:00 EDT, Dry Weight Start Date: 02/27/19 Stop Date: 05/28/19 Status: OrderedFish Oil 1000 mg oral capsule 1 capsule = 1,000 mg, By Mouth, Daily, # 90 capsule, 3 Refills, Maintenance, 02/26/19 10:39:00 EST, Capsule, [facility], 154.94, cm, 02/26/19 10:16:00 EST, Height, [...] Pharmacy Electronically, [facility], 158.5, cm, 03/18/19 11:38:00 [...] [facility], 154.94, cm, 02/26/19 10:16:00 [...] EDT, Route to Pharmacy Electronically, [facility], 158.5, cm, 04/09/19 15:02:00 [...] Maintenance, 02/28/2010:35:00 EST, ER Tablet, [facility], 158.5, cm, 02/27/19 13:31:00 [...] 06/18/18 13:37:18 EDT, Route to Pharmacy Electronically, [id number], [facility] Start Date: 06/18/18 Status: OrderedOrthopedic [...] Maintenance, 08/22/16 14:18:07, Route to Pharmacy Electronically, [id number], [facility] Start Date: 08/22/16 Stop Date: 08/17/17 [...] 07/23/18 13:46:52 EDT, Route to Pharmacy Electronically, [id number], [facility] Start Date: 07/23/18 Status: [...] 0 Refills, Maintenance, 02/26/19 10:41:00 EST, Tablet, [facility], 154.94, cm, 02/26/19 10:16:00 EST, Height, 84, kg, 10/05/18 2:07:00 EDT, Dry Weight Start Date: 02/26/19 Status: OrderedVitamin B Complex with Folic Acid oral tablet 1 tablet, By Mouth, Daily, # 90 tablet, 3 Refills, Maintenance, 02/26/19 10:39:00 EST, Tablet, [facility], 1 tablet By Mouth Daily, 154.94, [...] 0 Refills, Maintenance, 03/10/19 8:42:00 EST, Tablet, [facility], 158.5, cm, 02/27/19 13:31:00 EST, Height, [...] 81, WNL, 01/02/13.2skin test pos: mold, trees, [id number] Renae Jsesjkkkqq6crwuztk pantozapole,5[facility] Social History Social History Type Response Smoking Status Former smoker; Tobacco user in household: No; Type: Cigarettes; Tobacco use times per day: UP TO 3 PPD; Stopped at age: 52; entered on: 04/14/14 Sex
--- OUTSIDE RECORDS SUMMARY | 2022-03-26 02:51 | XMS_ITS | Continuity of Care Document ---
:1960 Author Organization [facility] Address [address] [place] [address]- Care Team Providers Name Role Phone Jomar RUBALCAVA, Amilcar Primary Care Physician [facility] [address] [place] [address]- [facility] Allergies, Adverse Reactions, Alerts Substance [...] atient Refuses 1Result Comment: [12/05/2017] [facility]#[id number] Comment: [11/23/2016] [facility] # [id number] Comment: [12/11/2013] vis [id number] Comment: [11/23/2016] [facility] # [phone] Comment: [04/09/2014] pt stated that she was [...] 02/13/2014:55:00 EST, Inhaler, Route to Pharmacy Electronically, [id number], [facility], 154.94, cm, 02/07/19 11:53:00 EST, He... [...] 0 Refills, Maintenance, 08/28/19 11:01:00 EDT, Capsule, [facility], 1 capsule By Mouth Daily, 158.5, [...] – [facility], 158.5, cm, 11/06/19 10:48:00 EDT, Heig... Start Date: 11/06/19 Stop Date: 11/20/19 Status: OrderedImitrex 100 mg oral tablet 1 tablet = 100 mg, By Mouth, Daily, PRN for migraine headache, may repeat dose after 2 hours up to amaximum of 2, # 9 tablet, 1 Refills, Maintenance, 10/14/19 15:06:00 EDT, Tablet, [facility], 158.5, cm, 11/04/19 8:30:00 EDT, [...] EDT, ER Tablet, [facility] [...] 06/18/18 13:37:18 EDT, Route to Pharmacy Electronically, [id number], [facility] Start Date: 06/18/18 Status: OrderedOrthopedic [...] Maintenance, 08/22/16 14:18:07, Route to Pharmacy Electronically, [id number], [facility] Start Date: 08/22/16 Stop Date: [...] 11:59:00 EDT, Tablet, [facility], 158.5, cm, 11/06/19 10:48:00 EDT,Height, 84, kg, 10/05/18 2:07:00 EDT, Dry Weight Start Date: 11/06/19 Status: OrderedVitamin B Complex with Folic Acid oral tablet 1 tablet, By Mouth, Daily, # 90 tablet, 3 Refills, Maintenance, 06/03/19 10:55:00 EDT, Tablet, [facility], 1 tablet By Mouth Daily, 158.5, cm, 04/09/19 15:02:00 EST, Height, 84, kg, 10/05/18 2:07:00 EDT, Dry Weight Start Date: 06/03/19 Status: OrderedVitamin C 500 mg oral tablet 1 tablet = 500 mg, By Mouth, Daily, # 90 tablet, 0 Refills, Maintenance, 10/14/19 14:32:00 EDT, Tablet, [facility], 158.5, cm, 08/27/19 12:39:00 EDT, [...] 81, WNL, 01/02/13.2skin test pos: mold, trees, aznga9El Renae Nmqqjotlwg3glosyza pantozapole,5[facility] audiology Social History Social History Type Response Smoking Status Former smoker; Tobacco user in household: No; Type: Cigarettes; Tobacco use times per day: UP TO 3 PPD; Stopped at age: 52; entered on: 04/14/14 Sex
--- OUTSIDE RECORDS SUMMARY | 2022-03-26 02:51 | XMS_ITS | Continuity of Care Document ---
:1960 Author Organization [facility] Address [address] [place] [address]- Care Team Providers Name Role Phone Amilcar Hadley MD Primary Care Physician [facility] Date[facility] 03[facility]13[facility]19 - 05/01/19 [facility] [address] [place] [address]- [facility] Attending Physician: Amilcar Hadley MD Allergies, [...] Given P atient Refuses 1Result Comment: [12/05/2017] [facility]#[id number] Comment: [11/23/2016] [facility] # [id number] Comment: [12/11/2013] vis [id number] Comment: [11/23/2016] [facility] # [id number] Comment: [04/09/2014] pt stated that she was [...] 02/13/2014:55:00 EST, Inhaler, Route to Pharmacy Electronically, [id number], [facility], 154.94, [...] 0 Refills, Maintenance, 02/26/19 10:39:00 EST, Capsule, [facility], 1 capsule By Mouth Daily, 154.94, [...] 0 Refills, Maintenance, 02/27/19 13:56:00 EST, Patch, [facility], 158.5, cm, 02/27/19 13:31:00 EST, Height, 84, kg, 10/05/18 2:07:00 EDT, Dry Weight Start Date: 02/27/19 Stop Date: 05/28/19 Status: OrderedFish Oil 1000 mg oral capsule 1 capsule = 1,000 mg, By Mouth, Daily, # 90 capsule, 3 Refills, Maintenance, 02/26/19 10:39:00 EST, Capsule, [facility], 154.94, cm, 02/26/19 10:16:00 EST, Height, [...] [facility], 158.5, cm, 04/09/19 15:02:00 [...] BY MOUTH ONCE DAILY IN THE EVENING., [facility] Start Date: 10/31/18 Status: OrderedOne Touch [...] 06/18/18 13:37:18 EDT, Route to Pharmacy Electronically, [id number], [facility] Start Date: 06/18/18 Status: OrderedOrthopedic shoes [...] Maintenance, 08/22/16 14:18:07, Route to Pharmacy Electronically, [id number], [facility] Start Date: 08/22/16 Stop Date: 08/17/17 [...] 07/23/18 13:46:52 EDT, Route to Pharmacy Electronically, [id number], [facility] Start [...] 0 Refills, Maintenance, 02/26/19 10:41:00 EST, Tablet, [facility], 154.94, cm, 02/26/19 10:16:00 EST, Height, 84, kg, 10/05/18 2:07:00 EDT, Dry Weight Start Date: 02/26/19 Status: OrderedVitamin B Complex with Folic Acid oral tablet 1 tablet, By Mouth, Daily, # 90 tablet, 3 Refills, Maintenance, 02/26/19 10:39:00 EST, Tablet, [facility], 1 tablet By Mouth Daily, 154.94, [...] 0 Refills, Maintenance, 03/10/19 8:42:00 EST, Tablet, [facility], 158.5, cm, 02/27/19 13:31:00 EST, Height, [...] 81, WNL, 01/02/13.2skin test pos: mold, trees, [id number] Renae Jxpephrobj5afftmuu pantozapole,5[facility] Social History Social History Type Response Smoking Status Former smoker; Tobacco user in household: No; Type: Cigarettes; Tobacco use times per day: UP TO 3 PPD; Stopped at age: 52; entered on: 04/14/14 Sex
--- OUTSIDE RECORDS SUMMARY | 2022-03-26 02:51 | XMS_ITS | Continuity of Care Document ---
:1960 Author Organization [facility] Address [address] [place] [address]- Care Team Providers Name Role Phone Amilcar Hadley MD Primary Care Physician [facility] 09[facility] - 10/22/19 [facility] [address] [place] [address]- [facility] Attending Physician: Tiffany Denney Admitting Physician: [...] Given P atient Refuses 1Result Comment: [12/05/2017] [facility]#[phone] Comment: [11/23/2016] [facility] # [id number] Comment: [12/11/2013] vis [id number] Comment: [11/23/2016] [facility] # [phone] Comment: [04/09/2014] pt stated that she was [...] 02/13/2014:55:00 EST, Inhaler, Route to Pharmacy Electronically, [id number], [facility], 154.94, cm, 02/07/19 11:53:00 EST, [...] 3 Refills, Maintenance, 07/10/19 13:08:00 EDT, Tablet, [facility], 158.5, cm, 07/01/19 12:34:00 EDT, Height, [...] 0 Refills, Maintenance, 08/28/19 11:01:00 EDT, Capsule, [facility], 1 capsule By Mouth Daily, 158.5, [...] Refills, Maintenance, 07/29/19 15:59:00 EDT, EC Tablet, [facility], 158.5, cm, 07/29/19 10:33:00 EDT, Height, [...] 08/14/19 16:44:00 EDT, Route to Pharmacy Electronically, [facility], 158.5,cm, 07/29/19 10:33:00 EDT, Height, 84, [...] 08/19/19 8:20:00 EDT, Route to Pharmacy Electronically, [facility], 158.5, cm, 08/04/19 16:24:00EDT, Height, 84, [...] 02/26/19 10:41:00 EST, Route to Pharmacy Electronically, [facility], 154.94, cm, 02/26/19 10:16:00 EST, Hei... [...] 04/27/19 11:24:00 EDT, Route to Pharmacy Electronically, [facility], 158.5, cm, 04/09/19 15:02:00 EST, Height, [...] 06/18/18 13:37:18 EDT, Route to Pharmacy Electronically, [id number], [facility] Start Date: 06/18/18 [...] Maintenance, 08/22/16 14:18:07, Route to Pharmacy Electronically, [id number], [facility] Start Date: 08/22/16 Stop Date: 08/17/17 [...] 07/23/18 13:46:52 EDT, Route to Pharmacy Electronically, [id number], [facility] Start Date: 07/23/18 Status: OrderedSpiriva Respimat [...] 0 Refills, Maintenance, 07/30/19 11:47:00 EDT, Tablet, [facility], 158.5, cm, 07/29/19 10:33:00 EDT,Height, 84, [...] 3 Refills, Maintenance, 06/03/19 10:55:00 EDT, Tablet, [facility], 1 tablet By Mouth Daily, 158.5, cm, 04/09/19 15:02:00 EST, Height, 84, kg, 10/05/18 2:07:00 EDT, Dry Weight Start Date: 06/03/19 Status: OrderedVitamin C 500 mg oral tablet 1 tablet = 500 mg, By Mouth, Daily, # 90 tablet, 0 Refills, Maintenance, 10/14/19 14:32:00 EDT, Tablet, [facility], 158.5, cm, 08/27/19 12:39:00 EDT, Height, [...] 81, WNL, 01/02/13.2skin test pos: mold, trees, [id number] Renae [id number] pantozapole,5H[facility] Social History Social History Type Response Smoking Status Former smoker; Tobacco user in household: No; Type: Cigarettes; Tobacco use times per day: UP TO 3 PPD; Stopped at age: 52; entered on: 04/14/14 Sex
--- OUTSIDE RECORDS SUMMARY | 2022-03-26 02:51 | XMS_ITS | Continuity of Care Document ---
:1960 Author Organization [facility] Address [address] [place] [address]- Care Team Providers Name Role Phone Jomar RUBALCAVA, Amilcar Primary Care Physician [facility]19 [facility] [address] [place] [address]- [facility] Allergies, Adverse Reactions, Alerts Substance Reaction Severity [...] P atient Refuses 1Result Comment: [12/05/2017] [facility]#[id number] Comment: [11/23/2016] [facility] # [id number] Comment: [12/11/2013] vis [email or web address] Comment: [11/23/2016] [facility] # [id number] Comment: [04/09/2014] pt stated that she was [...] 02/13/2014:55:00 EST, Inhaler, Route to Pharmacy Electronically, [id number], [facility], 154.94, cm, 02/07/19 11:53:00 [...] 06/18/18 13:37:18 EDT, Route to Pharmacy Electronically, [id number], [facility] [...] Maintenance, 08/22/16 14:18:07, Route to Pharmacy Electronically, [id number], [facility] Start Date: 08/22/16 Stop Date: 08/17/17 [...] 07/23/18 13:46:52 EDT, Route to Pharmacy Electronically, [id number], [facility] Start Date: 07/23/18 Status: OrderedSpiriva Respimat [...] Refills, Maintenance, 06/03/19 10:55:00 EDT, Tablet, [facility], 1 tablet By Mouth Daily, 158.5, cm, 04/09/19 15:02:00 EST, Height, 84, kg, 10/05/18 2:07:00 EDT, Dry Weight Start Date: 06/03/19 Status: OrderedVitamin C 500 mg oral tablet 1 tablet = 500 mg, By Mouth, Daily, # 90 tablet, 0 Refills, Maintenance, 10/14/19 14:32:00 EDT, Tablet, [facility], 158.5, cm, 08/27/19 12:39:00 EDT, Height, [...] 81, WNL, 01/02/13.2skin test pos: mold, trees, [id number] Renae Ttymbhzphv7gzmttyc pantozapole,5[facility] audiology Social History Social History Type Response Smoking Status Former smoker; Tobacco user in household: No; Type: Cigarettes; Tobacco use times per day: UP TO 3 PPD; Stopped at age: 52; entered on: 04/14/14 Sex
--- OUTSIDE RECORDS SUMMARY | 2022-03-26 02:51 | XMS_ITS | Continuity of Care Document ---
:1960 Author Organization [facility] Address [address] [place] [address]- Care Team Providers Name Role Phone Jomar RUBALCAVA, Amilcar Primary Care Physician [facility] Date[facility]s): 10/[facility]/19 - 11/01/19 [facility] [address] [place] [address]- [facility] Allergies, Adverse Reactions, Alerts Substance [...] Comment: [12/05/2017] [facility]#[phone] Comment: [11/23/2016] [facility] # [id number] Comment: [12/11/2013] vis [id number] Comment: [11/23/2016] [facility] # [id number] Comment: [04/09/2014] pt stated that she was [...] 02/13/2014:55:00 EST, Inhaler, Route to Pharmacy Electronically, [id number], [facility], 154.94, cm, 02/07/19 11:53:00 EST, [...] Pharmacy Electronically, [facility], 158.5,cm, 07/29/19 10:33:00 EDT, Height, [...] MOUTH ONCE DAILY IN THE EVENING., [facility] Start Date: 10/31/18 Status: OrderedOne Touch [...] 06/18/18 13:37:18 EDT, Route to Pharmacy Electronically, [id number], [facility] Start Date: [...] Maintenance, 08/22/16 14:18:07, Route to Pharmacy Electronically, [id number], [facility] Start Date: 08/22/16 Stop Date: 08/17/17 [...] 07/23/18 13:46:52 EDT, Route to Pharmacy Electronically, [id number], [facility] Start Date: 07/23/18 Status: OrderedSpiriva Respimat [...] Maintenance, 07/30/19 11:47:00 EDT, Tablet, [facility], 158.5, cm, 07/29/19 10:33:00 EDT,Height, [...] Maintenance, 06/03/19 10:55:00 EDT, Tablet, [facility], 1 tablet By Mouth Daily, 158.5, cm, 04/09/19 15:02:00 EST, Height, 84, kg, 10/05/18 2:07:00 EDT, Dry Weight Start Date: 06/03/19 Status: OrderedVitamin C 500 mg oral tablet 1 tablet = 500 mg, By Mouth, Daily, # 90 tablet, 0 Refills, Maintenance, 10/14/19 14:32:00 EDT, Tablet, [facility], 158.5, cm, 08/27/19 12:39:00 EDT, Height, [...] 81, WNL, 01/02/13.2skin test pos: mold, trees, [id number] Renae Fwrwytodcg2guhyvgg pantozapole,5[facility] audiology Social History Social History Type Response Smoking Status Former smoker; Tobacco user in household: No; Type: Cigarettes; Tobacco use times per day: UP TO 3 PPD; Stopped at age: 52; entered on: 04/14/14 Sex
--- OUTSIDE RECORDS SUMMARY | 2022-03-26 02:51 | XMS_ITS | Continuity of Care Document ---
:1960 Author Organization [facility] Address [address] [place] [address]- Care Team Providers Name Role Phone Prashant SILVER CHASER, Arabella Gomez Primary Care Physician Encounter [facility] Date(s): 09/29/21 - 09/30/[address] [address]- Discharge Disposition: A-D/C Home Attending Physician: Courtney Avalos MD Admitting Physician: Courtney Avalos MD Referring Physician: Not on Staff, Referring MD Allergies, Adverse Reactions, Alerts Substance Reaction Severity Status propranolol Active amoxicillin abdominal pain Active nabumetone Active Augmentin stomach pain Active Fish Active doxycycline hives Active thiazide diuretics hives [...] P atient Refuses 1Result Comment: [facility]:[id number] Comment: [12/05/2017] [facility]#[id number] Result Comment: [11/23/2016] [facility] # [id number] Comment: [12/11/2013] vis [id number] Comment: [11/23/2016] [facility] # [id number] Comment: [04/09/2014] pt stated that she was [...] 02/13/2014:55:00 EST, Inhaler, Route to Pharmacy Electronically, [id number], [facility], 154.94, cm, 02/07/19 11:53:00 EST, He... [...] 3 Refills, Maintenance, 07/10/19 13:08:00 EDT, Tablet, [facility], 158.5, cm, 07/01/19 12:34:00 EDT, Height, [...] 0 Refills, Maintenance, 06/17/20 9:47:00 EDT, Capsule, [facility], 1 capsule By Mouth Daily, 156, [...] 06/21/20 12:46:00 EDT, Route to Pharmacy Electronically, [facility], 155, cm, 06/18/20 0:35:00 EDT, Height, [...] oral capsule 800 mg, Capsule, By Mouth, 09/30/21 9:00:00 EDT Start Date: 09/30/21 Stop Date: 09/30/21 Status: Completedgabapentin 600 mg oral tablet 1 tablet = 600 mg, By Mouth, 3 times a day, # 270 tablet, 0 Refills, Maintenance, 01/21/20 8:28:00 EST, Tablet, [facility], Partial fill upon patient request if [...] 1 Refills, Maintenance, 01/12/20 9:22:00 EST, Tablet, [facility], 158.5, cm, 01/07/20 15:56:00 EST, Height, 84, kg, 08... Start Date: 01/12/20 Status: OrderedImitrex 100 mg oral tablet 1 tablet = 100 mg, By Mouth, Daily, PRN for migraine headache, may repeat dose after 2 hours up to amaximum of 2, # 9 tablet, 1 Refills, Maintenance, 10/14/19 15:06:00 EDT, Tablet, [facility], [...] EDT, Dry Weight Start Date: 11/06/19 Status: Orderedlisinopril 10 mg oral tablet 10 mg, Tablet, By Mouth, 09/30/21 9:00:00 EDT Start Date: 09/30/21 Stop Date: 09/30/21 Status: Completedmeclizine 25 mg oral tablet 1 tablet = [...] 5 Refills, Maintenance, 04/09/2111:50:00 EST, ER Tablet, [facility], 156, cm, 01/22/20 18:13:00 EST, Height, 85, kg, 01/22/20 18:13:00 EST, Dry Weight Start Date: 04/09/20 Status: Orderedmontelukast 10 mg oral tablet See Instructions, # 90 tablet, Refills 1 Tot. Refills 1, TAKE ONE (1) TABLET BY MOUTH ONCE DAILY IN THE EVENING., [facility] Start Date: 10/31/18 Status: Orderedmultivitamin Vitamin B Complex oral capsule 1 capsule, By Mouth, Daily, # 90 capsule, 0 Refills, Maintenance, 06/17/20 9:47:00 EDT, Capsule, [facility], Partial fill upon patient request if the prescription is for a schedule II opioid drug., 1 capsule By Mouth Daily, 156, cm, 01/22/20 18:... Start Date: 06/17/20 Status: Orderedondansetron 4 mg oral tablet, disintegrating 1 tablet = 4 mg, By Mouth, 3 times a day, PRN as needed for nausea/vomiting, # 10 tablet, 0 Refills,Soft Stop, 09/28/21 0:26:00 EDT, DIS Tablet, [facility]/pharmacy #[id number], Partial fill upon patient request if the prescription is for a schedule II opioid moriah... Start Date: 09/28/21 Stop Date: 10/01/21 Status: OrderedOne Touch Ultra 2 Glucose Meter See Instructions, # 1 each, Maintenance, Test fasting glucose daily in morning, and one random test.(Total twice daily), 04/27/17 10:22:17, Compound Start Date: 3/16/18 Status: OrderedOne Touch Ultra Test Strips See Instructions, # 100 each, Refills 7, Tot. Refills 7, Maintenance, Use with glucometer. Test twice dialy., 04/27/17 10:22:28, Compound Start Date: 04/27/17 Status: Orderedorphenadrine 100 mg oral tablet, extended release 100 mg, By Mouth, Daily at bedtime, # 90 each, Refills 1, Tot. Refills 1, Maintenance, 06/18/18 13:37:18 EDT, Route to Pharmacy Electronically, [id number], [facility] Start Date: [...] 09/28/21 0:25:00 EDT, Route to Pharmacy Electronically, [facility]/pharmacy #[id number], Partial fill upon patient re... Start Date: 09/28/21 Stop Date: 10/03/21 Status: OrderedoxyCODONE 5 mg oral tablet 5 mg, Tablet, By Mouth, Every 6 hours, PRN for Pain , Moderate, Routine, 09/30/21 0:18:00 EDT Start Date: 09/30/21 Stop Date: 09/30/21 Status: Discontinuedpantoprazole 40 mg oral delayed release tablet 40 mg, By Mouth, 2 times a day, # 180 each, Refills 3, Tot. Refills 3, Maintenance, 08/22/16 14:18:07, Route to Pharmacy Electronically, [id number], [facility] Start Date: 08/22/16 Stop Date: 08/17/17 Status: Orderedprazosin 1 mg oral capsule 2 mg, Capsule, By Mouth, 09/29/21 23:23:00 EDT Start Date: 09/29/21 Stop Date: 09/30/21 Status: CompletedQvar Redihaler 80 mcg/inh inhalation aerosol [...] 1 Refills, Maintenance, 12/30/19 11:05:00 EST, Tablet, [facility], 158.5, cm, 12/10/19 14:54:00 EDT, Height, 84, kg, 10/05/18 2:07:00 EDT, Dry Weight Start Date: 12/30/19 Status: OrderedVitamin B Complex with Folic Acid oral tablet 1 tablet, By Mouth, Daily, # 90 tablet, 3 Refills, Maintenance, 06/03/19 10:55:00 EDT, Tablet, [facility], 1 tablet By Mouth Daily, 158.5, cm, 04/09/19 15:02:00 EST, Height, 84, kg, 10/05/18 2:07:00 EDT, Dry Weight Start Date: 06/03/19 Status: OrderedVitamin C 500 mg oral tablet 1 tablet = 500 mg, By Mouth, Daily, # 90 tablet, 0 Refills, Maintenance, 01/12/20 14:32:00 EST, Tablet, [facility], 158.5, cm, 01/07/20 15:56:00 EST, Height, 84, kg, 10/05/18 2:07:00 EDT, Dry Weight Start Date: 01/12/20 Stop Date: 04/11/20 Status: OrderedVoltaren 1% topical gel 1 application, Topically, 4 times a day, PRN for pain, # 100 Gm, 0 Refills, Maintenance, 01/07/20 16:13:00 EST, Gel, [facility], Partial fill upon patient request, 1 [...] 81, WNL, 01/02/13.2skin test pos: mold, trees, [id number] Renae Vweyljloxs0lywwybk pantozapole,5[facility] Vital Signs Most recent to oldest 1 2 3 [Reference Range]: Height 155 cm 155 cm 155 cm (09/30/21 12:31 AM) (09/29/21 10:17 PM) (09/29/21 1 0:15 PM) Weight 85.3 kg 85.3 kg 85.3 kg (09/30/21 12:31 AM) (09/29/21 10:17 PM) (09/29/21 1 0:15 PM) Oxygen Saturation [94-100 %] 96 % 96 % 95 % (09/30/21 9:09 AM) (09/30/21 12:31 AM) (09/29/21 10 :15 PM) Pulse Rate [55-90 bpm] 90 bpm 84 bpm 98 bpm (09/30/21 9:09 AM) (09/30/21 12:31 AM) *H* (09/29/21 10:15 P M) Body Mass Index [18.5-24.99] 35.5 35.5 *>HHI* *>HHI* (09/30/21 12:31 AM) (09/29/21 10:15 PM) Blood Pressure [90-138/55-84 123/52 mm Hg 123/64 mm Hg 123 /64 mm Hg mm Hg] (09/30/21 9:03 AM) (09/30/21 12:31 AM) (09/30/21 12 :20 AM) Respiratory Rate [16-30 18 br/min 18 br/min 18 br/mi n br/min] (09/30/21 9:03 AM) (09/30/21 9:02 AM) (09/30/21 12: 31 AM) Temperature [96.8-100.4 97.6 DegF 98.0 DegF DegF] (09/30/21 9:09 AM) (09/29/21 10:15 PM) Mode of Delivery (Oxygen) Room air Room air Room a ir (09/30/21 9:09 AM) (09/30/21 12:31 AM) (09/29/21 10 :15 PM) Blood pressure sites Arm, left (09/29/21 10:15 PM) Temperature Route Oral Temporal (09/30/21 9:09 AM) (09/29/21 10:15 PM) Dry Weight 85.3 kg 85.3 kg 85.3 kg (09/30/21 12:31 AM) (09/29/21 10:17 PM) (09/29/21 1 0:15 PM) Social History Social History Type Response Smoking Status Former smoker; Tobacco user in household: No; Type: Cigarettes; Tobacco use times per day: UP TO 3 PPD; Stopped at age: 52; entered on: 3/3/15 Sex
--- OUTSIDE RECORDS SUMMARY | 2022-03-26 02:52 | XMS_ITS | Continuity of Care Document ---
:1960 Author Organization [facility] Address [address] [place] [address]- Care Team Providers Name Role Phone Amilcar Hadley MD Primary Care Physician Encounter [facility] Date(s): 11/06/19 - 12/19/19 [facility] [address] [place] [address]- Attending Physician: Amilcar Hadley MD Allergies, Adverse [...] Not Given P atient Refuses 1Result Comment: [facility]:[id number] Comment: [12/05/2017] [facility]#[phone] Result Comment: [11/23/2016] [facility] # [id number] Comment: [12/11/2013] vis [id number] Comment: [11/23/2016] [facility] # [phone] Comment: [04/09/2014] pt stated that she was [...] 02/13/2014:55:00 EST, Inhaler, Route to Pharmacy Electronically, [id number], [facility], 154.94, [...] 3 Refills, Maintenance, 07/10/19 13:08:00 EDT, Tablet, [facility], 158.5, cm, 07/01/19 12:34:00 EDT, Height, [...] 0 Refills, Maintenance, 12/19/19 14:27:00 EST, Capsule, [facility], 1 capsule By Mouth Daily, 158.5, [...] Stop, 10/02/19 12:24:00 EDT, Tablet, [facility], 158.5, cm, 08/27/19 12:39:00 [...] [facility], 158.5, cm, 08/27/19 12:39:00 EDT, Height, 84, kg, 10/05/18 2:07:00 EDT, Dry Weight Start Date: 11/12/19 Stop Date: 05/10/20 Status: OrderedFish Oil 1000 mg oral capsule 1 capsule = 1,000 mg, By Mouth, Daily, # 90 capsule, 3 Refills, Maintenance, 02/26/19 10:39:00 EST, Capsule, [facility], 154.94, cm, [...] Instructions Replace Required Details,Route to Pharmacy Electronically, [facility] Start Date: 11/21/19 Status: OrderedGas-X = [...] [facility], 158.5, cm, 11/06/19 10:48:00 EDT, Heig... Start Date: 11/06/19 Stop Date: 11/20/19 Status: OrderedImitrex 100 mg oral tablet 1 tablet = 100 mg, By Mouth, Daily, PRN for migraine headache, may repeat dose after 2 hours up to amaximum of 2, # 9 tablet, 1 Refills, Maintenance, 11/21/19 13:47:00 EDT, Tablet, [facility], 158.5, cm, 11/19/19 15:50:00 EDT, Height, 84, kg, 0... Start Date: 11/21/19 Status: OrderedImitrex 100 mg oral tablet 1 tablet = 100 mg, By Mouth, Daily, PRN for migraine headache, may repeat dose after 2 hours up to amaximum of 2, # 9 tablet, 1 Refills, Maintenance, 10/14/19 15:06:00 EDT, Tablet, [facility], 158.5, cm, 08/27/19 12:39:00 [...] [facility], 158.5, cm, 11/04/19 8:30:00 [...] Maintenance, 10/17/2011:57:00 EDT, ER Tablet, [facility], 158.5, cm, 08/27/19 12:39:00 [...] 06/18/18 13:37:18 EDT, Route to Pharmacy Electronically, [id number], [facility] Start Date: [...] Maintenance, 08/22/16 14:18:07, Route to Pharmacy Electronically, [id number], [facility] Start Date: 08/22/16 Stop Date: [...] Refills, Maintenance, 11/06/19 11:59:00 EDT, Tablet, [facility], 158.5, cm, 11/06/19 10:48:00 EDT,Height, 84, kg, 10/05/18 2:07:00 EDT, Dry Weight Start Date: 11/06/19 Status: OrderedVitamin B Complex with Folic Acid oral tablet 1 tablet, By Mouth, Daily, # 90 tablet, 3 Refills, Maintenance, 06/03/19 10:55:00 EDT, Tablet, [facility], 1 tablet By Mouth Daily, 158.5, cm, 04/09/19 15:02:00 EST, Height, 84, kg, 10/05/18 2:07:00 EDT, Dry Weight Start Date: 06/03/19 Status: OrderedVitamin C 500 mg oral tablet 1 tablet = 500 mg, By Mouth, Daily, # 90 tablet, 0 Refills, Maintenance, 10/14/19 14:32:00 EDT, Tablet, [facility], 158.5, cm, 08/27/19 12:39:00 EDT, Height, [...] 81, WNL, 01/02/13.2skin test pos: mold, trees, [id number] Renae [id number] pantozapole,5[facility] Social History Social History Type Response Smoking Status Former smoker; Tobacco user in household: No; Type: Cigarettes; Tobacco use times per day: UP TO 3 PPD; Stopped at age: 52; entered on: 04/14/14 Sex
--- NOTE | 2022-03-26 03:33 | ED.GENADULT ---
HPI - General Adult General Chief complaint: General Medical Stated complaint: GI problems, headache Time Seen by Provider: 03/26/22 03:08 Source: patient Mode of arrival: ambulatory Limitations: no limitations History of Present Illness HPI narrative: 61-year-old female presents with lower abdominal pain. The pain is severe. His lower abdomen. Does not radiate. It is intermittent. There is no clear relieving or exacerbating symptoms. Associated constipation, nausea and 1 episode of vomiting. She has had no fevers or chills. She does have urinary frequency but no urgency, dysuria or hematuria patient scribe's or symptoms is severe. The pain is described as crampy in nature. She denies any sick contacts. Patient denies any chest pain, shortness breath, palpitations, cough, mucus production or other systemic Related Data Home Medications Medication Instructions Recorded Confirmed albuterol (refill) 90 mcg inhalation 02/11/20 mcg/actuation aerosol inhaler carbamazepine 400 mg 400 mg PO BID 02/11/20 tablet,extended release,12 hr (Tegretol XR) cholecalciferol (vitamin D3) 50 50 mcg PO DAILY 02/11/20 mcg (2,000 unit) capsule montelukast 10 mg tablet 10 mg PO BEDTIME 02/11/20 (Singulair) risperidone 3 mg tablet (Risperdal) 3 mg PO BID 02/11/20 topiramate 100 mg tablet (Topamax) 100 mg PO BID 02/11/20 aspirin 81 mg tablet,delayed 81 mg PO DAILY 07/05/21 release melatonin 3 mg capsule 9 mg PO BEDTIME PRN 07/05/21 aripiprazole 10 mg tablet 10 mg PO DAILY 08/30/21 fexofenadine 180 mg tablet 0 mg PO BID 08/30/21 gabapentin 800 mg tablet 0 mg PO 08/30/21 meclizine 25 mg tablet 0 mg PO BID 08/30/21 melatonin 3 mg tablet 0 mg PO 08/30/21 prazosin 2 mg capsule 0 mg PO 08/30/21 ropinirole 0.25 mg tablet 0.25 mg PO BEDTIME 08/30/21 benztropine 1 mg tablet 1 mg PO DAILY 01/13/22 estradiol 1 mg tablet 1 mg PO DAILY 01/13/22 lisinopril 10 mg tablet 10 mg PO DAILY 01/13/22 topiramate 50 mg tablet 50 mg PO BID 01/13/22 Previous Rx's Medication Instructions Recorded dicyclomine 20 mg tablet 20 mg PO .QID AC AND HS 30 days 03/17/20 #120 tabs peg 3350-electrolytes 236 240 ml PO Q10M 1 day #4,000 mL 07/05/21 gram-22.74 gram-6.74 gram-5.86 gram solution (Golytely) folic acid 1 mg tablet 1 mg PO DAILY #90 tabs 03/14/22 methotrexate sodium 2.5 mg tablet 15 mg PO QWEEK #24 tabs 03/14/22 pantoprazole 40 mg tablet,delayed 40 mg PO BID #60 tabs 03/14/22 release methylprednisolone 4 mg tablet See Rx Instructions PO .COMPLEX 03/22/22 (Medrol) #84 tabs dicyclomine 20 mg tablet 20 mg PO TID #10 tabs 03/26/22 ondansetron 4 mg disintegrating 4 mg PO Q8H PRN nausea and 03/26/22 tablet vomiting #10 tabs Allergies Allergy/AdvReac Type Severity Reaction Status Date / Time Iodinated Contrast Media Allergy Intermediate DIFF Verified 03/26/22 03:44 [IV CONTRAST] BREATHING morphine [MORPHINE] Allergy Intermediate HIVES Verified 03/26/22 03:44 nabumetone [NABUMETONE] Allergy Intermediate HIVES Verified 03/26/22 03:44 sulfamethoxazole Allergy Intermediate HIVES Verified 03/26/22 03:44 [From BACTRIM] trimethoprim [From BACTRIM] Allergy Intermediate HIVES Verified 03/26/22 03:44 dicloxacillin Allergy Unknown Rash Verified 03/26/22 03:44 dyclonine Allergy Unknown Unknown Verified 03/26/22 03:44 propranolol [Inderal LA] Allergy Unknown unknown Verified 03/26/22 03:44 quetiapine [Seroquel] Allergy Unknown rash Verified 03/26/22 03:44 Sulfa (Sulfonamide Allergy Unknown hives Verified 03/26/22 03:44 Antibiotics) amoxicillin [From Augmentin] Allergy stomach Verified 03/26/22 03:44 pain clavulanic acid Allergy stomach Verified 03/26/22 03:44 [From Augmentin] pain doxycycline [DOXYCYCLINE] AdvReac Intermediate NAUSEA & Verified 03/26/22 03:44 VOMITTING From INDERAL Allergy Intermediate RASH Uncoded 03/14/22 11:52 Codeine Sulfate Allergy Unknown Unknown Uncoded 03/14/22 11:52 Review of Systems Review of Systems: CONSTITUTIONAL: Denies weight loss, fever and chills. HEENT: Denies changes in vision and hearing. RESPIRATORY: Denies SOB and cough. CV: Denies palpitations no CP. GI: + abdominal pain, nausea, vomiting - diarrhea. : Denies dysuria and urinary + frequency. MSK: Denies myalgia and joint pain. SKIN: Denies rash and pruritus. NEUROLOGICAL: Denies headache and syncope. PSYCHIATRIC: Denies recent changes in mood. Denies anxiety and depression. All other ROS are negative unless in HPI [facility] Past Medical History Medical History (Updated 03/26/22 @ 03:39 by Remington Kumari MD) Anxiety Arthritis of right knee Asthma Chronic idiopathic constipation COPD (chronic obstructive pulmonary disease) Depression Migraine Prediabetes Spinal stenosis TMJ (dislocation of temporomandibular joint) Umbilical hernia Surgical History H/O eye surgery History of esophagogastroduodenoscopy (EGD) Hx of colonoscopy Hx of hand surgery Hx of hysterectomy Family History Family History Father Bone cancer Mother Diabetes Family/Other Family history of breast cancer Social History Social History Alcohol intake: current Alcohol intake frequency: does not drink Advance Directives: No Physical Exam ED Vital Signs: Vital Signs - 24 hr 03/26/22 01:08 Temperature 97.8 F Pulse Rate 80 Respiratory Rate 16 Blood Pressure 160/58 H Pulse Oximetry 99 Oxygen Delivery Method Room Air BMI result Body Mass Index 25.7 GEN: Well developed, no acute distress, alert, oriented HEENT: Normocephalic, atraumatic, normal external ears, nose appears normal, no oropharyngeal edema or exudates Eyes: Normal to appearance Neck: Supple, no lymphadenopathy Respiratory: Talks in complete sentences, no respiratory distress, clear to auscultation bilaterally Cardiovascular: Regular rate and rhythm, no murmurs rubs or gallops Abdomen: soft, lower abdominal tenderness with guarding no rebound, negative McBurney's point tenderness, negative Vazquez sign Neurologic: No focal neurologic deficits, cranial nerves 2-12 intact, strength is 5/5 bilaterally, gait normal Skin: No rash Course Course Course Narrative: . 61-year-old female presents with lower abdominal pain. Pain is severe. Does not radiate. It is intermittent. There is no clear relieving or exacerbating features. Associated with the constipation but no diarrhea. No fevers or chills. She has had nausea vomiting. Examination revealed tenderness without rebound or guarding. CT scan tonight I would elucidate the etiology of her symptoms. She did complain of some urinary frequency urinalysis did not identify any pyuria or consistency with a urinary tract infection. At this time, patient is comfortable. We will treat her symptoms never follow up with her primary care provider. She was instructed to return for any worsening or concerning symptoms. Medications Administered Discontinued Medications Generic Name Dose Route Start Last Admin Trade Name Freq PRN Reason Stop Dose Admin Hydromorphone HCl 0.5 mg 03/26/22 03:32 03/26/22 03:51 Hydromorphone Hcl 0.5 Mg/0.5 Ml Syringe IVPUSH 03/26/22 03:33 0.5 mg ONCE ONE Administration Protocol Sodium Chloride 1,000 mls @ 999 mls/hr 03/26/22 03:45 03/26/22 03:47 Ns IV 03/26/22 04:45 999 mls/hr .Q1H1M DAGMAR Administration Ondansetron HCl 4 mg 03/26/22 03:32 03/26/22 03:47 Ondansetron Hcl 4 Mg/2 Ml Vial IVPUSH 03/26/22 03:33 4 mg ONCE ONE Administration Medical Decision Making Medical Decision Making [facility] Narrative: 61-year-old female presents with lower abdominal pain. On exam she had guarding but no rebound. Tentative in McBurney's point tenderness. Differential diagnosis however could include appendicitis, cholecystitis, diverticulitis, colitis, gastroenteritis. Will obtain laboratory results, CT scan the abdomen pelvis. In the meantime, will give patient IV fluids, analgesics, antiemetics Differential Diagnosis Differential Diagnoses: The differential diagnosis associated with the presentation includes ( Colitis, diverticulitis, appendicitis, cholecystitis, IBS, IBD, UTI, pyelonephritis) Admission/Observation Consideration of admission/observation: Escalation of care including admission/observation considered Lab Data [facility] Lab Attestation statement: I reviewed the patient's lab results. 03/26/22 02:18 03/26/22 02:17 Labs: Lab Results 03/26/22 03/26/22 03/26/22 Range/Units 02:17 02:18 05:07 WBC 14.5 H (4.8-10.8) X10*3/uL RBC 3.94 L (4.20-5.50) X10*6/uL Hgb 9.6 L (12.0-16.0) g/dl Hct 31.7 L (37.0-47.0) % MCV 80.5 (80.0-98.0) fL MCH 24.4 L (27.0-33.0) pg MCHC 30.3 L (31.0-35.0) g/dl RDW 14.6 (11.0-16.0) % Plt Count 331 (160-400) X10*3/uL MPV 9.3 L (9.4-12.3) fL Immature Gran % (Auto) 0.3 (0.0-0.4) % Neut % (Auto) 52.8 (45-73) % Lymph % (Auto) 38.0 (20-40) % [place] % (Auto) 6.6 (2-11) % Eos % (Auto) 1.9 (0-4) % Baso % (Auto) 0.4 (0-2) % Lymph # (Auto) 5.5 H (1.2-4.9) X10*3/uL [place] # (Auto) 1.0 (0.1-1.2) X10*3/uL Eos # (Auto) 0.3 (0.0-0.4) X10*3/uL Baso # (Auto) 0.1 (0.0-0.2) X10*3/uL Abs Immat Gran (auto) 0.05 H (0.00-0.03) X10*3/uL Absolute Neuts (auto) 7.6 (2.0-8.3) x10*3/uL Absolute Nucleated RBC 0.000 (0.0-0.012) X10*3/uL Nucleated RBC % (auto) 0.0 (0.0-0.2) /100WBC Smear Tech's Comments VERIFIED Sodium 140 (135-145) mmol/L Potassium 3.9 (3.3-5.1) mmol/L Chloride 105 (96-108) mmol/L Carbon Dioxide 25 (22-29) mmol/L Anion Gap 14 (12-20) BUN 16 (9-16) mg/dL Creatinine 0.71 (0.5-1.4) mg/dL Estim Creat Clear Calc 83.9 Estimated GFR > 60 Fasting Glucose 135 H (60-99) mg/dL Calcium 8.9 (8.4-10.2) mg/dL Total Bilirubin < 0.2 (0.0-1.0) mg/dL AST 13 (5-31) U/L ALT 17 (0-31) U/L Alkaline Phosphatase 86 (39-117) U/L Total Protein 6.4 L (6.5-8.0) g/dL Albumin 3.9 (3.5-5.0) g/dL Lipase 52 (8-78) U/L Urine Color Yellow Urine Appearance Clear Urine pH 8.0 (5.0-9.0) Ur Specific [place] 1.010 (1.005-1.025) Urine Protein Negative (Neg-Trace) mg/dL Urine Glucose (UA) Negative (Negative) mg/dL Urine Ketones Negative (Negative) mg/dL Urine Blood Negative (Negative) Urine Nitrite Negative (Negative) Ur Leukocyte Esterase Moderate (2+) H (Negative) Urine RBC 0-2 (0-2) /HPF Urine WBC 0-5 (0-5) /HPF Ur Squamous Epith Cells 0-2 (0-2) /HPF Urine Bacteria None Seen (None Seen) Hyaline Casts 0-2 (0-2) /LPF Radiology Impression Discussion of test interpretation with radiology: I have reviewed the radiologist's reading. (IMPRESSION: * No acute findings within the abdomen or pelvis to explain the patient's symptomatology. * Left nonobstructive nephrolithiasis. * No ureteral calculi or hydronephrosis. * Cholecystectomy and hysterectomy. Fleischner guidelines were followed. Dictated By:Aaron Oneil MDSigned ) External Record Review External record reviewed: Office record ( gastroenterology note 08/30/2021) Prescription Management I considered prescription management with: Pain Medication Chronic Conditions Patient?s care impacted by: Hypertension Discharge Plan Discharge Clinical Impression: Leukocytosis, Elevated blood sugar, Elevated blood pressure reading, Abdominal pain Patient Disposition: Home, Self-Care Instructions: Leukocytosis (ED), Hypotension (ED), Low-Sodium Diet (ED), Nondiabetic Hyperglycemia (ED) Additional Instructions: your previous lab tests have been much of an elevated white blood cell count. This should be investigated further by her primary care provider. Additionally, your blood pressure was noted to be elevated, please follow-up with your primary care provider regarding treatment. Finally, you you had an elevated blood sugar. This may represent an acute stress state, however, this should be followed up with her provider as well. Prescriptions: New dicyclomine 20 mg tablet 20 mg PO TID Qty: 10 0RF ondansetron 4 mg tablet,disintegrating 4 mg PO Q8H PRN (Reason: nausea and vomiting) Qty: 10 0RF No Action pantoprazole 40 mg tablet,delayed release (DR/EC) 40 mg PO BID Qty: 60 0RF methylprednisolone [Medrol] 4 mg tablet See Rx Instructions PO .COMPLEX Qty: 84 1RF Rx Instructions: Take 6 tabs by mouth once daily with breakfast for 1 week then 4 tabs daily for 1 week then 2 tabs daily for 1 week then stop albuterol (refill) 90 mcg/actuation aerosol inhalation carbamazepine [Tegretol XR] 400 mg tablet extended release 12 hr 400 mg PO BID topiramate [Topamax] 100 mg tablet 100 mg PO BID cholecalciferol (vitamin D3) 50 mcg (2,000 unit) capsule 50 mcg PO DAILY montelukast [Singulair] 10 mg tablet 10 mg PO BEDTIME risperidone [Risperdal] 3 mg tablet 3 mg PO BID melatonin 3 mg capsule 9 mg PO BEDTIME PRN Rx Instructions: 3 tabs at hs dicyclomine 20 mg tablet 20 mg PO .QID AC AND HS 30 Days Qty: 120 6RF Rx Instructions: PLEASE TAKE NOW BEFORE EACH MEAL AND QHS NOT PRN gabapentin 800 mg tablet 0 mg PO melatonin 3 mg tablet 0 mg PO meclizine 25 mg tablet 0 mg PO BID aripiprazole 10 mg tablet 10 mg PO DAILY fexofenadine 180 mg tablet 0 mg PO BID ropinirole 0.25 mg tablet 0.25 mg PO BEDTIME prazosin 2 mg capsule 0 mg PO topiramate 50 mg tablet 50 mg PO BID estradiol 1 mg tablet 1 mg PO DAILY lisinopril 10 mg tablet 10 mg PO DAILY benztropine 1 mg tablet 1 mg PO DAILY methotrexate sodium 2.5 mg tablet 15 mg PO QWEEK Qty: 24 1RF folic acid 1 mg tablet 1 mg PO DAILY Qty: 90 1RF aspirin 81 mg tablet,delayed release (DR/EC) 81 mg PO DAILY peg 3350-electrolytes [Golytely] 236-22.74-6.74 -5.86 gram recon soln 240 ml PO Q10M 1 Days Qty: 4000 0RF Rx Instructions: until fecal effluent is clear; do not exceed a total volume of 2,000 mL Referrals: Arabella Cerda NP [Primary Care Provider] - 3 days
[2022-03-26] MEDS: ondansetron HCL 4 MG/2 ML VIAL IVPUSH (03:47)
[2022-03-26] MEDS: 0.9 % Sodium Chloride 1,000 ML 999 ML IV (03:47)
[2022-03-26] MEDS: HYDROmorphone HCl 0.5 MG/0.5 ML SYRINGE IVPUSH (03:51)
[2022-03-26 05:14] LABS: Appearance Urine Clear; Color Urine Yellow; Glucose Urine UA Negative (Negative); Leukocyte Esterase Urine Moderate (2+) (Negative); Nitrite Urine Negative (Negative); UMIC TRIGGER UACC YES; Urine Blood Negative (Negative); Urine Ketones Negative (Negative); Urine Protein Negative (Neg-Trace)
[2022-03-26 05:26] LABS: Bacteria Urine None Seen (None Seen); Hyaline Casts Urine 0-2 /LPF (0-2); RBC Urine 0-2 /HPF (0-2); Squamous Epithelial Cell Urine 0-2 /HPF (0-2); WBC Urine 0-5 /HPF (0-5)
[2022-03-26 06:01] VITALS: BP 140/60; PULSE 101; RESP 16; TEMP 36.6; O2SAT 94
== END 2022-03-26 06:17 | disposition home or self-care (01) ==
PROVIDERS: Emergency Provider Emergency Medicine; PCP Nurse Practitioner Family
DX: R10.13 Epigastric pain (principal); R51.9 Headache, unspecified; R73.9 Hyperglycemia, unspecified; D72.829 Elevated white blood cell count, unspecified; Z79.899 Other long term (current) drug therapy
CPT/HCPCS: 36415; 74176; 80053; 81001; 83690; 85025; 96361; 96374; 96375; 99284; J1170; J2405

== ENCOUNTER 2022-05-12 09:49 | Outpatient (REF) | payer OTHER, SELFPAY ==
[2022-05-12 11:15] LABS: MANUAL DIFF FLAG NO
[2022-05-12 12:08] LABS: Basophils Absolute Auto 0.1 X10*3/uL (0.0-0.2); Basophils Percent Auto 0.7 % (0-2); Eosinophils Absolute Auto 0.2 X10*3/uL (0.0-0.4); Eosinophils Percent Auto 2.3 % (0-4); Hematocrit 34.1 % (37.0-47.0); Hemoglobin 10.4 g/dl (12.0-16.0); Imm Gran Abs Auto 0.04 X10*3/uL (0.00-0.03); Imm Gran Pct Auto 0.4 % (0.0-0.4); Lymphocytes Absolute Auto 3.3 X10*3/uL (1.2-4.9); Lymphocytes Percent Auto 31.2 % (20-40); Mean Corpuscular HGB Conc 30.5 g/dl (31.0-35.0); Mean Corpuscular Hemoglobin 24.8 pg (27.0-33.0); Mean Corpuscular Volume 81.4 fL (80.0-98.0); Monocytes Absolute Auto 0.7 X10*3/uL (0.1-1.2); Monocytes Percent Auto 6.6 % (2-11); Neutrophils Absolute Auto 6.2 x10*3/uL (2.0-8.3); Neutrophils Percent Auto 58.8 % (45-73); Platelet Count 403 X10*3/uL (160-400); Red Blood Count 4.19 X10*6/uL (4.20-5.50); Red Cell Distribution Width 16.9 % (11.0-16.0); White Blood Count 10.6 X10*3/uL (4.8-10.8)
[2022-05-12 12:26] LABS: Estimated Average Glucose 146 mg/dL; Hemoglobin A1c % 6.7 %
[2022-05-12 12:46] LABS: Alanine Aminotransferase 13 U/L (0-31); Albumin Level 4.1 g/dL (3.5-5.0); Alkaline Phosphatase 110 U/L (39-117); Anion Gap 16 (12-20); Aspartate Amino Transferase 12 U/L (5-31); Bilirubin Total 0.2 mg/dL (0.0-1.0); Blood Urea Nitrogen 12 mg/dL (9-16); C Reactive Protein 3.26 mg/dL (< or = 0.50); Calcium 9.3 mg/dL (8.4-10.2); Carbon Dioxide 22 mmol/L (22-29); Chloride 106 mmol/L (96-108); Estimated Glomerular Filt Rate > 60; Glucose Random 116 mg/dL (60-115); Potassium 4.4 mmol/L (3.3-5.1); Sodium 140 mmol/L (135-145); Total Protein 6.7 g/dL (6.5-8.0)
[2022-05-12 13:10] LABS: Erythrocyte Sedimentation Rate 34 MM/HR (0-20)
[2022-05-17 11:14] LABS: Transglutaminase Ab IgG <1.0 U/mL; Transglutaminase IgA <1.0 U/mL
== END 2022-05-12 09:50 | disposition home or self-care (01) ==
LOC: HO.LAB 09:49
PROVIDERS: Absent Provider Student in an Organized Health Care Education/Training Program; PCP Nurse Practitioner Family; Visit Provider Nurse Practitioner
DX: R19.7 Diarrhea, unspecified (principal); M06.9 Rheumatoid arthritis, unspecified; K21.9 Gastro-esophageal reflux disease without esophagitis; K58.9 Irritable bowel syndrome, unspecified; D36.9 Benign neoplasm, unspecified site; Z91.09 Other allergy status, other than to drugs and biological substances; R73.03 Prediabetes
CPT/HCPCS: 36415; 80053; 83036; 85025; 85652; 86003; 86140; 86364; 99212

== ENCOUNTER → 2022-05-30 15:23 | Outpatient (BNVA) | payer OTHER, SELFPAY | PROVIDERS: PCP Nurse Practitioner Family; Visit Provider Student in an Organized Health Care Education/Training Program | DX: M79.89 Other specified soft tissue disorders (principal); M06.09 Rheumatoid arthritis without rheumatoid factor, multiple sites | CPT/HCPCS: 99212 ==

== ENCOUNTER 2022-06-07 14:22 | Outpatient (REF) | payer OTHER, SELFPAY ==
--- NOTE | ~2022-06-07 | XR_ITS ---
EXAMINATION: XR KNEE, RIGHT XR KNEE, LEFT XR KNEE AP STANDING CLINICAL INFORMATION: Rheumatoid arthritis. COMPARISON: None available. TECHNIQUE: Lateral and axial views of the right knee are submitted. Lateral and axial views of the left knee are submitted. AP bilateral standing view of the knees was obtained. FINDINGS: Right knee: Bones and soft tissues are normal. No fracture or joint effusion. Alignment is anatomic. There is no varus or valgus configuration. Joint spaces are well maintained. No abnormal soft tissue calcification. Left knee: Bones and soft tissues are normal. No fracture or joint effusion. Alignment is anatomic. There is no varus or valgus configuration. Joint spaces are well maintained. No abnormal soft tissue calcification. XR/XR knee standing BI IMPRESSION: Unremarkable radiographs of the bilateral knees.
--- NOTE | ~2022-06-07 | XR_ITS ---
EXAMINATION: XR KNEE, RIGHT XR KNEE, LEFT XR KNEE AP STANDING CLINICAL INFORMATION: Rheumatoid arthritis. COMPARISON: None available. TECHNIQUE: Lateral and axial views of the right knee are submitted. Lateral and axial views of the left knee are submitted. AP bilateral standing view of the knees was obtained. FINDINGS: Right knee: Bones and soft tissues are normal. No fracture or joint effusion. Alignment is anatomic. There is no varus or valgus configuration. Joint spaces are well maintained. No abnormal soft tissue calcification. Left knee: Bones and soft tissues are normal. No fracture or joint effusion. Alignment is anatomic. There is no varus or valgus configuration. Joint spaces are well maintained. No abnormal soft tissue calcification. XR/XR knee LT 3V IMPRESSION: Unremarkable radiographs of the bilateral knees.
--- NOTE | ~2022-06-07 | XR_ITS ---
EXAMINATION: XR HAND, RIGHT CLINICAL INFORMATION: Pain. COMPARISON: Radiographs dated 01/27/2022. TECHNIQUE: PA, lateral, and oblique views of the right hand. FINDINGS: The bones and soft tissues are normal. No fracture. Alignment is anatomic. Joint spaces are maintained. No erosions or soft tissue calcifications. XR/XR hand RT min 3V IMPRESSION: Normal right hand.
--- NOTE | ~2022-06-07 | XR_ITS ---
EXAMINATION: XR KNEE, RIGHT XR KNEE, LEFT XR KNEE AP STANDING CLINICAL INFORMATION: Rheumatoid arthritis. COMPARISON: None available. TECHNIQUE: Lateral and axial views of the right knee are submitted. Lateral and axial views of the left knee are submitted. AP bilateral standing view of the knees was obtained. FINDINGS: Right knee: Bones and soft tissues are normal. No fracture or joint effusion. Alignment is anatomic. There is no varus or valgus configuration. Joint spaces are well maintained. No abnormal soft tissue calcification. Left knee: Bones and soft tissues are normal. No fracture or joint effusion. Alignment is anatomic. There is no varus or valgus configuration. Joint spaces are well maintained. No abnormal soft tissue calcification. XR/XR knee RT 3V IMPRESSION: Unremarkable radiographs of the bilateral knees.
== END 2022-06-07 14:23 | disposition home or self-care (01) ==
LOC: HO.XRAY 14:22
PROVIDERS: Absent Provider Physician Assistant; PCP Nurse Practitioner Family; Visit Provider Student in an Organized Health Care Education/Training Program
DX: M06.9 Rheumatoid arthritis, unspecified (principal); M79.89 Other specified soft tissue disorders
CPT/HCPCS: 73130; 73562; 73564; 73565

== ENCOUNTER 2022-06-08 07:06 | Outpatient (REF) | payer OTHER, SELFPAY | END 2022-06-08 07:07 | disposition home or self-care (01) | LOC: HO.HOSX 07:06 | PROVIDERS: Visit Provider Physician Assistant | DX: M79.89 Other specified soft tissue disorders (principal); M79.644 Pain in right finger(s) | CPT/HCPCS: 99202 ==

== ENCOUNTER → 2022-06-13 14:08 | Outpatient (BNVA) | payer OTHER, SELFPAY | PROVIDERS: PCP Nurse Practitioner Family; Visit Provider Student in an Organized Health Care Education/Training Program | DX: M06.09 Rheumatoid arthritis without rheumatoid factor, multiple sites (principal); M79.89 Other specified soft tissue disorders | CPT/HCPCS: 99212 ==

== ENCOUNTER → 2022-06-20 10:58 | Outpatient (BNVA) | payer OTHER, SELFPAY | PROVIDERS: PCP Nurse Practitioner Family; Visit Provider Physician Assistant | DX: R20.0 Anesthesia of skin (principal); R79.89 Other specified abnormal findings of blood chemistry | CPT/HCPCS: 99212 ==

== ENCOUNTER 2022-06-29 10:39 | Outpatient (RCR) | payer OTHER, SELFPAY ==
--- NOTE | 2022-06-29 16:29 | MHC.OT.EP ---
[address] [phone] Occupational Therapy Plan of Care Patient Name: Elizabeth Huang Date of Evaluation: 06/29/22 Diagnosis: Swelling of right thumb Pain Location: Right wrist and thumb IP joint Pain Score: 10 Pain Scale Used: Numeric (0 - 10) Aggravating Factors: Texting. Gripping and pinching Alleviating Factors: Some improvement with Tylenol and with thumb spica Assessment: Pt is a 61 yp female with recent onset of right thumb pain and swelling now improving . Pt wearing a comfort cool thumb spica issued at [facility] . Pt presents with reports of moderate to severe right thumb and wrist pain and thumb swelling improved some over the past few weeks. Today her wrist and thumb AROM and pain threshold improved significantly after heat and ther ex. Began instruction on protection techniques to promote healing, in particular to avoid, modify or minimize texting with her right hand thumb. Pt will benefit from OT for jt protection , thermal modalities and ther ex to improve right hand and wrist pain and function Frequency and Duration: The patient will be seen 2x wk x 3 wks Short Term Goals: Demo indep with HEP Demo compliance with jt protection techniques Wrist and hand AROM to WNL Tolerate right hand use with light ADL and light IADL Fci Goals: Same as above Treatment Plan: Therapeutic Exercise Therapeutic Activity Home Exercise Program Patient Education ADL Training [facility] Kinesiot[employer] Electronically Signed By: Jenniffer Freed OT CHT CLT Please Sign and return to therapist. Thank you once again for your referral.
== END 2022-07-25 13:54 | disposition home or self-care (01) ==
LOC: HO.OT 10:39
PROVIDERS: PCP Nurse Practitioner Family; Visit Provider Physician Assistant
DX: M79.89 Other specified soft tissue disorders (principal)
CPT/HCPCS: 97110; 97166

== ENCOUNTER → 2022-08-02 11:39 | Outpatient (BNVA) | payer OTHER, SELFPAY | PROVIDERS: Visit Provider Nurse Practitioner | DX: D36.9 Benign neoplasm, unspecified site (principal); R10.9 Unspecified abdominal pain; K21.9 Gastro-esophageal reflux disease without esophagitis; K58.9 Irritable bowel syndrome, unspecified | CPT/HCPCS: 99212 ==

== ENCOUNTER 2022-08-03 08:48 | Outpatient (REF) | payer OTHER, SELFPAY ==
--- NOTE | 2022-08-03 09:06 | EMG_ITS ---
FINDINGS: Right median and ulnar sensory and motor studies were performed. Right radial sensory study was performed and paraspinal muscles were tested with a needle. IMPRESSION: 1. Mild right median neuropathy across carpal tunnel. 2. Mild right ulnar neuropathy across cubital tunnel. MD DUC Rivero/SHARIFA / [id number]
== END 2022-08-03 08:49 | disposition home or self-care (01) ==
LOC: HO.NEURO 08:48
PROVIDERS: PCP Nurse Practitioner Family; Visit Provider Physician Assistant
DX: R60.0 Localized edema (principal); R20.0 Anesthesia of skin
CPT/HCPCS: 95886; 95909

== ENCOUNTER 2022-09-08 09:22 | Outpatient (AMB) | payer OTHER, SELFPAY ==
[2022-09-08 09:27] VITALS: BP 128/72; PULSE 82; TEMP 36.2; O2SAT 97; BMI 32.1
--- NOTE | 2022-09-08 09:27 | MHC.OFFVIS ---
Intake Vital Signs 09/08/22 09:27 Height 5 ft 1 in Weight 169 lb 12.095 oz BMI 32.1 BP 128/72 Blood Pressure Location Rt brachial Position Sitting Pulse 82 Pulse Source Pulse Oximeter Temp 97.2 F Temp Source Skin Pulse Oximetry (%) 97 Intake Visit Reasons: RA Intake Note: Pt seen today for RA follow up C/o hand pain States she had EMG done with Ortho, would like to know results. Skein Bleacher Required: No Accompanied by: Self / Same As Patient Allergies cephalexin Allergy (Intermediate, Verified 09/08/22 09:29) Diarrhea Iodinated Contrast Media [IV CONTRAST] Allergy (Intermediate, Verified 09/08/22 09:29) DIFF BREATHING morphine [MORPHINE] Allergy (Intermediate, Verified 09/08/22 09:29) HIVES nabumetone [NABUMETONE] Allergy (Intermediate, Verified 09/08/22 09:29) HIVES sulfamethoxazole [From BACTRIM] Allergy (Intermediate, Verified 09/08/22 09:29) HIVES trimethoprim [From BACTRIM] Allergy (Intermediate, Verified 09/08/22 09:29) HIVES dicloxacillin Allergy (Unknown, Verified 09/08/22 09:29) Rash dyclonine Allergy (Unknown, Verified 09/08/22 09:29) Unknown propranolol [Inderal LA] Allergy (Unknown, Verified 09/08/22 09:29) unknown quetiapine [Seroquel] Allergy (Unknown, Verified 09/08/22 09:29) rash Sulfa (Sulfonamide Antibiotics) Allergy (Unknown, Verified 09/08/22 09:29) hives amoxicillin [From Augmentin] Allergy (Verified 09/08/22 09:29) stomach pain clavulanic acid [From Augmentin] Allergy (Verified 09/08/22 09:29) stomach pain polyethylene glycol [From Golytely] Adverse Reaction (Severe, Verified 09/08/22 09:29) Hallucinations polyethylene glycol 3350 [From Golytely] Adverse Reaction (Severe, Verified 09/08/22 09:29) Hallucinations potassium chloride [From Golytely] Adverse Reaction (Severe, Verified 09/08/22 09:29) Hallucinations sodium [From Golytely] Adverse Reaction (Severe, Verified 09/08/22 09:29) Hallucinations sodium bicarbonate [From Golytely] Adverse Reaction (Severe, Verified 09/08/22 09:29) Hallucinations sodium chloride [From Golytely] Adverse Reaction (Severe, Verified 09/08/22 09:29) Hallucinations sodium sulfate [From Golytely] Adverse Reaction (Severe, Verified 09/08/22 09:29) Hallucinations doxycycline [DOXYCYCLINE] Adverse Reaction (Intermediate, Verified 09/08/22 09:29) NAUSEA & VOMITTING From INDERAL Allergy (Intermediate, Uncoded 09/08/22 09:29) RASH Codeine Sulfate Allergy (Unknown, Uncoded 09/08/22 09:29) Unknown Medication List - Last Reconciled 09/08/22 by Nael Yang MD albuterol sulfate 90 mcg/actuation (Ventolin HFA) 2 puffs inhalation Q4H PRN aripiprazole 15 mg PO DAILY aspirin 81 mg PO DAILY carbamazepine ER (Tegretol XR) 400 mg PO BID cholecalciferol (vitamin D3) 50 mcg PO DAILY estradiol 1 mg PO DAILY fexofenadine 0 mg PO BID fluticasone propion-salmeterol 500-50 mcg/dose 1 ea inhalation BID folic acid 1 mg PO DAILY gabapentin 800 mg PO TID lisinopril 10 mg PO DAILY meclizine 25 mg PO QID melatonin 9 mg PO BEDTIME metformin 500 mg PO BID methotrexate sodium 15 mg (6 x 2.5 mg) PO QWEEK montelukast (Singulair) 10 mg PO BEDTIME omalizumab (Xolair) mg subcut omalizumab (Xolair) mg subcut ondansetron 4 mg PO Q8H PRN pantoprazole 40 mg PO BID prazosin 2 mg PO BEDTIME PRN pseudoephedrine HCl (Sudogest) 30 mg PO risperidone (Risperdal) 3 mg PO BID ropinirole 1 mg PO BID sod sulf-pot chloride-mag sulf 1.479-0.188- 0.225 gram (Sutab) PO PER PKG DIR sumatriptan succinate 100 mg PO DAILY PRN topiramate 50 mg PO BID topiramate 100 mg PO BID umeclidinium 62.5 mcg/actuation (Incruse Ellipta) 1 inh inhalation DAILY vitamin B complex (Vitamins B Complex capsule) 1 cap PO DAILY HPI HPI Comments History of Present Illness Details 61-year-old female with seronegative arthritis returns for follow-up. She has been taking methotrexate 15 mg once weekly since last visit. The swelling of her right thumb has resolved. She is feeling well overall with regards to her joint pain but she gets some stiffness across her right hand knuckles when she makes a fist. Denies any swollen joints. Denies any side effects related to methotrexate. Initial history:This is a 61-year-old female with complex past medical history including asthma/COPD, anxiety, depression, migraines, lumbar spinal stenosis who presents for evaluation of diffuse joint pain. Patient has had bilateral knee pain for at least 6 years. She had numerous intra-articular steroid injections without any relief. She used to see Dr. Chance Christina as well as Dr. Mayorga at [facility] and was most recently following up with Dr. Lucero. Patient received prednisone in the past for her arthritis without any significant relief. Also the intra-articular steroid injections do not provide any relief. Over the last year she has been having pain of her knuckles, wrists, fingers associated with morning stiffness lasting 2 hours improved with moving her hands around. Continues to have chronic knee pain that is unchanged. She stated that her older sister was diagnosed with rheumatoid arthritis. She was just recently started on prednisone 20 mg Twice daily for asthma attack. She stated that prednisone does not significantly improve her joint pain [facility] Medical History Anxiety Arthritis of right knee Asthma Chronic idiopathic constipation COPD (chronic obstructive pulmonary disease) Depression Migraine Prediabetes Spinal stenosis TMJ (dislocation of temporomandibular joint) Umbilical hernia Surgical History H/O eye surgery History of esophagogastroduodenoscopy (EGD) Hx of colonoscopy Hx of hand surgery Hx of hysterectomy Family History Father Bone cancer Mother Diabetes Family/Other Family history of breast cancer Social History Household Members: None Alcohol intake: current Alcohol intake frequency: does not drink Patient Tobacco Use Status: Former Tobacco user Review of Systems [facility] [place] Reports arthralgias and Reports stiffness Physical Exam Vital Signs: Last Vital Signs Temp 97.2 F 09/08/22 09:27 Pulse 82 09/08/22 09:27 BP 128/72 09/08/22 09:27 Pulse Ox 97 09/08/22 09:27 BMI result Body Mass Index 32.1 Const General: cooperative and no acute distress Nutritional Appearance: obese morbidly obese Limitations: ambulation with walker HEENT Head: Yes normocephalic and Yes atraumatic Resp Effort & Inspection: normal respiratory effort and able to speak in complete sentences Extrem Other: Right thumb swelling has resolved No swollen or tender joints except for positive right hand MCP squeeze test Bilateral knee crepitus Bilateral knee pain with full extension Results Reviewed Results Reviewed: Right hand/ wrist MSK ultrasound 03/06? Impression:? Mild tenosynovitis of the 2nd extensor compartment Assessment & Plan Assessment & Plan (1) Rheumatoid arthritis: Comment: seroneg dx 03/06 Right thumb dactylitis 06/04 MTX started 07/04 effective Code(s): M06.9 - Rheumatoid arthritis, unspecified Qualifiers: Rheumatoid arthritis location: multiple sites Rheumatoid factor presence: without rheumatoid factor Qualified Code(s): M06.09 - Rheumatoid arthritis without rheumatoid factor, multiple sites Plan: 62-year-old female with seronegative arthritis (more consistent with psoriatic arthritis given 1 episode of dactylitis) returns for follow-up. Doing much better overall on methotrexate 15 mg once weekly and folic acid daily. Patient did not do safety labs as requested. Advised patient to get safety labs done as soon as she can. Labs before next visit in 3 months Infectious screening: Hepatitis panel and T spot negative 02/02 (2) correction methotrexate user: Code(s): Z79.631 - correction (current) use of antimetabolite agent Plan: Side effects of methotrexate were discussed with the patient in detail including oral ulcers, elevated LFTs, abdominal discomfort, and possible pancytopenias. Will monitor patient for side effects with frequent lab work. Advised patient to take folic acid daily to prevent complications of methotrexate. Plan I spent 26 minutes reviewing patient's chart, evaluating patient, ordering diagnostic workup, counseling patient and documenting in the chart Orders: Orders Comprehensive Met. 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
== END 2022-09-08 09:45 | disposition home or self-care (01) ==
PROVIDERS: PCP Nurse Practitioner Family; Visit Provider Student in an Organized Health Care Education/Training Program
DX: M06.09 Rheumatoid arthritis without rheumatoid factor, multiple sites (principal); Z79.631 Long term (current) use of antimetabolite agent
CPT/HCPCS: 99214

== ENCOUNTER → 2022-09-08 09:22 | Outpatient (BNVA) | payer OTHER, SELFPAY | PROVIDERS: PCP Nurse Practitioner Family; Visit Provider Student in an Organized Health Care Education/Training Program | DX: M06.09 Rheumatoid arthritis without rheumatoid factor, multiple sites (principal); Z79.631 Long term (current) use of antimetabolite agent | CPT/HCPCS: 99212 ==

== ENCOUNTER 2022-09-08 09:51 | Outpatient (REF) | payer OTHER, SELFPAY ==
[2022-09-08 10:58] LABS: MANUAL DIFF FLAG NO
[2022-09-08 11:03] LABS: Basophils Percent Auto 0.4 % (0-2); Eosinophils Absolute Auto 0.2 X10*3/uL (0.0-0.4); Eosinophils Percent Auto 1.5 % (0-4); Hematocrit 34.4 % (37.0-47.0); Hemoglobin 10.4 g/dl (12.0-16.0); Imm Gran Abs Auto 0.03 X10*3/uL (0.00-0.03); Imm Gran Pct Auto 0.3 % (0.0-0.4); Lymphocytes Absolute Auto 2.4 X10*3/uL (1.2-4.9); Lymphocytes Percent Auto 24.1 % (20-40); Mean Corpuscular HGB Conc 30.2 g/dl (31.0-35.0); Mean Corpuscular Hemoglobin 24.2 pg (27.0-33.0); Mean Corpuscular Volume 80.2 fL (80.0-98.0); Mean Platelet Volume 9.3 fL (9.4-12.3); Monocytes Absolute Auto 0.7 X10*3/uL (0.1-1.2); Monocytes Percent Auto 7.5 % (2-11); Neutrophils Absolute Auto 6.6 x10*3/uL (2.0-8.3); Neutrophils Percent Auto 66.2 % (45-73); Platelet Count 443 X10*3/uL (160-400); Red Blood Count 4.29 X10*6/uL (4.20-5.50); Red Cell Distribution Width 19.7 % (11.0-16.0); White Blood Count 9.9 X10*3/uL (4.8-10.8)
[2022-09-08 11:13] LABS: Alanine Aminotransferase 16 U/L (0-31); Albumin Level 3.8 g/dL (3.5-5.0); Alkaline Phosphatase 121 U/L (39-117); Anion Gap 16 (12-20); Aspartate Amino Transferase 13 U/L (5-31); Bilirubin Total 0.1 mg/dL (0.0-1.0); Blood Urea Nitrogen 9 mg/dL (9-16); C Reactive Protein 4.38 mg/dL (< or = 0.50); Calcium 9.2 mg/dL (8.4-10.2); Carbon Dioxide 19 mmol/L (22-29); Chloride 105 mmol/L (96-108); Estimated Glomerular Filt Rate > 60; Glucose Random 150 mg/dL (60-115); Potassium 3.9 mmol/L (3.3-5.1); Sodium 136 mmol/L (135-145); Total Protein 7.2 g/dL (6.5-8.0)
[2022-09-08 11:44] LABS: Erythrocyte Sedimentation Rate 48 MM/HR (0-20)
== END 2022-09-08 09:52 | disposition home or self-care (01) ==
LOC: HO.10HDL 09:51
PROVIDERS: Visit Provider Student in an Organized Health Care Education/Training Program
DX: M06.09 Rheumatoid arthritis without rheumatoid factor, multiple sites (principal); Z79.631 Long term (current) use of antimetabolite agent
CPT/HCPCS: 36415; 80053; 85025; 85652; 86140

== ENCOUNTER 2022-09-19 11:12 | Outpatient (AMB) | payer OTHER, SELFPAY ==
--- NOTE | 2022-09-19 11:47 | MHC.OFFVIS ---
Intake Vital Signs 09/19/22 11:54 Height 5 ft 1 in Weight 169 lb BMI 31.9 Intake Visit Reasons: OV- EMG Review Numbness of right thumb Intake Note: Elizabeth 61-year-old right hand dominant female presents today for her follow up visit of right thumb edema and EMG review. The patient reports a burning sensation in her right thumb. Last seen with Sandy Myers on 06/20/22, who would like patient to be further evaluated by Dr. Alejo. Allergies cephalexin Allergy (Intermediate, Verified 09/19/22 11:53) Diarrhea Iodinated Contrast Media [IV CONTRAST] Allergy (Intermediate, Verified 09/19/22 11:53) DIFF BREATHING morphine [MORPHINE] Allergy (Intermediate, Verified 09/19/22 11:53) HIVES nabumetone [NABUMETONE] Allergy (Intermediate, Verified 09/19/22 11:53) HIVES sulfamethoxazole [From BACTRIM] Allergy (Intermediate, Verified 09/19/22 11:53) HIVES trimethoprim [From BACTRIM] Allergy (Intermediate, Verified 09/19/22 11:53) HIVES dicloxacillin Allergy (Unknown, Verified 09/19/22 11:53) Rash dyclonine Allergy (Unknown, Verified 09/19/22 11:53) Unknown propranolol [Inderal LA] Allergy (Unknown, Verified 09/19/22 11:53) unknown quetiapine [Seroquel] Allergy (Unknown, Verified 09/19/22 11:53) rash Sulfa (Sulfonamide Antibiotics) Allergy (Unknown, Verified 09/19/22 11:53) hives amoxicillin [From Augmentin] Allergy (Verified 09/19/22 11:53) stomach pain clavulanic acid [From Augmentin] Allergy (Verified 09/19/22 11:53) stomach pain polyethylene glycol [From Golytely] Adverse Reaction (Severe, Verified 09/19/22 11:53) Hallucinations polyethylene glycol 3350 [From Golytely] Adverse Reaction (Severe, Verified 09/19/22 11:53) Hallucinations potassium chloride [From Golytely] Adverse Reaction (Severe, Verified 09/19/22 11:53) Hallucinations sodium [From Golytely] Adverse Reaction (Severe, Verified 09/19/22 11:53) Hallucinations sodium bicarbonate [From Golytely] Adverse Reaction (Severe, Verified 09/19/22 11:53) Hallucinations sodium chloride [From Golytely] Adverse Reaction (Severe, Verified 09/19/22 11:53) Hallucinations sodium sulfate [From Golytely] Adverse Reaction (Severe, Verified 09/19/22 11:53) Hallucinations doxycycline [DOXYCYCLINE] Adverse Reaction (Intermediate, Verified 09/19/22 11:53) NAUSEA & VOMITTING From INDERAL Allergy (Intermediate, Uncoded 09/19/22 11:53) RASH Codeine Sulfate Allergy (Unknown, Uncoded 09/19/22 11:53) Unknown HPI OV- EMG Review Numbness of right thumb HPI Details Elizabeth is a 62 year old right hand dominant woman who presents for a NCS review of her right hand. She has numbness in the median nerve distribution of the right thumb. Symptoms intermittent, but daily, worse at night. She says her numbness in her thumb has become more constant recently. She also complains of a burning pain in her right thumb. She says she has been living on Tylenol for the last few weeks She is seen today wearing a comfort cool splint. She was seen by KINA Myers on 06/20/22 She is a Diabetic, which she says is well controlled. She denies blood thinners but takes daily aspirin. She has RA and follows with Dr. Yang for this, she takes Methotrexate weekly. [facility] Medical History Anxiety Arthritis of right knee Asthma Chronic idiopathic constipation COPD (chronic obstructive pulmonary disease) Depression Migraine Prediabetes Spinal stenosis TMJ (dislocation of temporomandibular joint) Umbilical hernia Surgical History H/O eye surgery History of esophagogastroduodenoscopy (EGD) Hx of colonoscopy Hx of hand surgery Hx of hysterectomy Family History Father Bone cancer Mother Diabetes Family/Other Family history of breast cancer Social History Household Members: None Alcohol intake: current Alcohol intake frequency: does not drink Patient Tobacco Use Status: Former Tobacco user Review of Systems Const All systems reviewed & are unremarkable except as noted in HPI and below Physical Exam Vital Signs: BMI result Body Mass Index 31.9 Const General: cooperative, healthy appearing and no acute distress Orientation/consciousness: patient oriented x3 HEENT Head: Yes normocephalic and Yes atraumatic Eyes EOM: EOMs intact bilaterally Resp Effort & Inspection: normal respiratory effort and able to speak in complete sentences Cardio Jugular venous distension: no JVD Skin General skin exam: turgor normal Rashes: no rashes Neuro General: patient oriented x3 Extrem Other: Evaluation of Right Upper Extremity: The patient is alert, oriented, and in no acute distress Neuro: Dense numbness in the thumb, reduced sensation in the index and middle fingers. Normal sensation in the ulnar nerve distribution No thenar or intrinsic wasting Good APB muscle belly firing and good finger cross Vascular: Cap refill brisk ROM: Mild stiffness With encouragement she could make a fist and extend all her digits She could oppose her thumb to the tips of all digits Skin: No lacerations or abrasions. General: No Ecchymosis. No Erythema or evidence of infection. Nerve Conduction Study: IMPRESSION:? 1. Mild right median neuropathy across carpal tunnel. 2. Mild right ulnar neuropathy across cubital tunnel. Kamala Mike MD 08/03/2022 Psych Appearance: grossly normal Affect: normal affect Attitude: cooperative Assessment & Plan Assessment & Plan (1) Carpal tunnel syndrome of right wrist: Code(s): G56.01 - Carpal tunnel syndrome, right upper limb (2) Cubital tunnel syndrome on right: Code(s): G56.21 - Lesion of ulnar nerve, right upper limb (3) Stiffness of finger joint of right hand: Code(s): M25.641 - Stiffness of right hand, not elsewhere classified (4) Rheumatoid arthritis: Comment: seroneg dx 03/06 Right thumb dactylitis 06/04 MTX started 07/04 effective Code(s): M06.9 - Rheumatoid arthritis, unspecified Qualifiers: Rheumatoid arthritis location: multiple sites Rheumatoid factor presence: without rheumatoid factor Qualified Code(s): M06.09 - Rheumatoid arthritis without rheumatoid factor, multiple sites (5) Diabetes mellitus: Code(s): E11.9 - Type 2 diabetes mellitus without complications Plan Assessment & Plan: 1. Right Carpal tunnel syndrome, mild Symptoms intermittent, but daily, worse at night Dense numbness in the thumb I educated her about this condition I discussed operative and non-operative treatment options The patient would like to proceed with surgery The risks and benefits of operative treatment were discussed with the patient and the patient wishes to proceed with surgery. These risks include, but are not limited to risk of damage to blood vessels, nerves, tendons, infection, recurrence, incomplete relief of preoperative symptoms, persistent pain, possible need for further surgery and the risks associated with regional blocks and anesthesia. The plan is to take the patient to the operating room sometime in the next few weeks for the following procedures: 1. Right Carpal tunnel release, under local All of the preoperative paperwork including the consent was filled out today. All the patient's questions were answered. The patient understands that they will be contacted by our traffic line painter soon to schedule this procedure She denies blood thinners, asthma, heart, kidney issues She is a Diabetic, her most recent HgA1c was 6.7% on 05/11/22 She has asthma and takes daily Aspirin 2. Right Cubital tunnel syndrome, mild Asymptomatic I educated her about this condition. This will be managed conservatively at this time 3. Right hand stiffness I demonstrated ROM exercises today in clinic that she will perform 20x daily at home She will discontinue her splint at this time and focus on her motion prior to surgery Scribed for Lula Alejo MD by Ishmael Marsh, medical corps officer, on 09/19/22 at 12:00 PM, EST. Coding Level of Care Code Est Pt Level 4 (01302) Diagnoses Carpal tunnel syndrome of right wrist G56.01 Cubital tunnel syndrome on right G56.21 Stiffness of finger joint of right hand M25.641 Rheumatoid arthritis M06.09 Rheumatoid arthritis location: multiple sites Rheumatoid factor presence: without rheumatoid factor Diabetes mellitus E11.9
[2022-09-19 11:54] VITALS: BMI 31.9
== END 2022-09-19 12:03 | disposition home or self-care (01) ==
PROVIDERS: PCP Nurse Practitioner Family; Visit Provider Orthopaedic Surgery
DX: G56.01 Carpal tunnel syndrome, right upper limb (principal); G56.21 Lesion of ulnar nerve, right upper limb; M25.641 Stiffness of right hand, not elsewhere classified; M06.89 Other specified rheumatoid arthritis, multiple sites
CPT/HCPCS: 99214

== ENCOUNTER → 2022-09-19 11:12 | Outpatient (BNVA) | payer OTHER, SELFPAY | PROVIDERS: PCP Nurse Practitioner Family; Visit Provider Orthopaedic Surgery | DX: G56.01 Carpal tunnel syndrome, right upper limb (principal); G56.21 Lesion of ulnar nerve, right upper limb; M25.641 Stiffness of right hand, not elsewhere classified; M06.09 Rheumatoid arthritis without rheumatoid factor, multiple sites; E11.9 Type 2 diabetes mellitus without complications | CPT/HCPCS: 99212 ==

== ENCOUNTER 2022-10-09 10:11 | Day surgery (SDC) | payer OTHER, SELFPAY ==
--- NOTE | 2022-10-09 10:13 | W.PM.OPN ---
Operative Note Operative Note Date of Service: 10/09/22 Narrative: Preop diagnosis: 1. right Carpal tunnel syndrome Postop diagnosis: same Procedure: 1. right Carpal tunnel release Surgeon: Lula Alejo MD Anesthesia: local block using 1% lidocaine with epinephrine Findings: Thickened transverse carpal ligament. EBL: Less than 5 mL Specimens: None Complications: None Disposition: Brought to recovery room in stable condition Plan: This was a REPEAT CTR, as the pt disclosed today she had a R CTR within the last 1-2 yrs Follow-up for 10-14 days for wound check and suture removal Indications: The patient is 62 years old, with right carpal tunnel syndrome that has been unresponsive to nonoperative management. The risks and benefits of operative treatment including but not limited to risk of damage to blood vessels, nerves, tendons, infection, persistent pain, persistent symptoms, or possible need for additional surgery were discussed with the patient and the patient wishes to proceed with surgery. Procedure: Once consent was obtained a local block was performed using a combination of 1% lidocaine with epinephrine. The patient was then brought back to the operating suite and placed on the operative table in supine position. The right upper extremity was prepped and draped in a standard surgical fashion. Once assured that we had a good block, a 2.0 cm longitudinal incision was made centered over the carpal tunnel. The incision was made through the skin to the subcutaneous tissues using a #15 blade. She was noted to have some thickened scar tissue. I carefully made a longitudinal incision down to the level of the carpal tunnel using a #15 blade, then using tenotomy scissors under direct visualization. Once satisfied with our carpal tunnel release the wound was copiously irrigated with normal saline and hemostasis was obtained with a brief period of local pressure. The skin edges were reapproximated with some 5.0 nylon suture material and a sterile dressing was applied. The patient appears to have tolerated the procedure well and with no complications. All digits were well vascularized at the conclusion of the case.
--- OUTSIDE RECORDS SUMMARY | 2022-10-09 10:16 | XMS_ITS | Continuity of Care Document ---
Author Name Unknown Organization [facility] ter Address [address] [place] [id number]- Care Team Providers Care Board Catcher Name Role Phone Prashant ALVARADO, Arabella Gomez Primary Care Physician [phone] [facility] Date(s): 07/04/22 - 07/05/[address] [address]- Encounter Diagnosis Fall(Final) - 07/04/22 Discharge Disposition: A-D/C Home Attending Physician: Kalia Crocker MD Admitting Physician: Uri Esteban MD Referring Physician: Not on Staff, Referring MD Allergies, Adverse Reactions, Alerts Substance Reaction Severity Status propranolol Active nabumetone Active doxycycline hives Active thiazide diuretics hives Active amoxicillin abdominal pain Active penicillin hives Active morphine 1 hives Morphine allergy Active Augmentin hives stomach pain Active sulfamethoxazole-trimethoprim hives Active aspirin dyspepsia Active Bactrim hives Active Contrast Dye 2 hives Active SEROquel XR unknown Active Fish Active 1hives 2? Rash Immunizations Given and Recorded Vaccine Date Status Refusal Reason influenza virus vaccine, inactivated 1 11/19/19 Gi sonja influenza virus vaccine, inactivated 2 12/05/17 Gi sonja influenza virus vaccine, inactivated 3 11/23/16 Gi sonja influenza virus vaccine, inactivated 12/23/15 Give n influenza virus vaccine, inactivated 4 12/11/13 Gi sonja influenza virus vaccine, inactivated 11/30/12 Give n pneumococcal 13-valent vaccine 5 11/23/16 Given pneumococcal 23-valent vaccine 6 04/09/14 Given pneumococcal 23-valent vaccine 7 04/09/14 Given pneumococcal 23-valent vaccine 11/30/12 Given tetanus/diphtheria/pertussis, acel(Tdap) 04/25/13 Given Not Given Vaccine Date Status Refusal Reason pneumococcal 23-valent vaccine 10/21/12 Not Given Patient Refuses 1Result Comment: [facility]:[id number] 2Result Comment: [12/05/2017] [facility]#[id number] 3Result Comment: [11/23/2016] [facility] # [id number] 4Result Comment: [12/11/2013] vis given 5Result Comment: [11/23/2016] [facility] # [id number] 6Result Comment: [04/09/2014] pt stated that she was never given the pneumo vaccine. pneumo given today 04/09/14 7Result Comment: [04/09/2014] PT CLEARLY STATED THAT SHE WAS NEVER OFFERED OR GIVEN THE PNEUMO VACCINE. PT HAS ASTHMA, SO VACCINE WAS GIVEN PER KATHIE[04/09/2014 Uncharted] enterred in error Medications Abilify 5 mg oral tablet See Instructions, 2 tablet By Mouth Daily, Refills 0, Maintenance, 01/15/17 13:19:45 EST, Instructions Replace Required Details Start Date: 01/15/17 Status: Ordered Johanny = 360 mg, By Mouth, 2 times a day, 0 Refills, Maintenance, 01/24/17 10:14:10 Start Date: 01/24/17 Status: Ordered ARIPiprazole 15 mg oral tablet 15 mg, 1, tablet, By Mouth, Daily, # 30 tablet, Refills 0, Maintenance, 07/04/22 14:49:00 EDT, Partial fill upon patient request if the prescription is for a schedule II opioid drug. Start Date: 07/04/22 Status: Ordered aspirin 81 mg oral capsule 1 capsule = 81 mg, By Mouth, Every 4 hours, 0 Refills, Maintenance, 12/25/21 22:59:00 EST, Partial fill upon patient request if the prescription is for a schedule II opioid drug. Start Date: 12/25/21 Status: Ordered Aspirin Low Dose 81 mg oral delayed release tablet 1 tablet = 81 mg, By Mouth, Daily, # 30 tablet, 0 Refills, Maintenance, 07/04/22 14:48:00 EDT, EC Tablet, Partial fill upon patient request if the prescription is for a schedule II opioid drug. Start Date: 07/04/22 Status: Ordered carBAMazepine 100 mg oral capsule, extended release 4 capsule = 400 mg, By Mouth, 2 times a day, # 60 capsule, 0 Refills, Maintenance, 12/25/21 22:49:00 EST, CR Capsule, Partial fill upon patient request if the prescription is for a schedule II opioiddrug. Start Date: 12/25/21 Status: Ordered carBAMazepine 400 mg oral tablet, extended release 400 mg, 1, tablet, By Mouth, 2 times a day, # 180 tablet, Refills 0, Maintenance, 07/04/22 14:48:00EDT, Partial fill upon patient request if the prescription is for a schedule II opioid drug. Start Date: 07/04/22 Status: Ordered cefpodoxime 200 mg oral tablet 1 tablet = 200 mg, By Mouth, Every 12 hours, for 10 days, # 20 tablet, 0 Refills, Acute 07/15/22 9:37:00 EDT, 07/05/22 9:37:00 EDT, Tablet, [facility] 3, Partial fill upon patient requestif the prescription is for a schedule II opioid moriah... Start Date: 07/05/22 Stop Date: 07/15/22 Status: Ordered cholecalciferol 1000 intl units oral tablet 2 tablet = 2,000 International_Units, By Mouth, Daily, # 180 tablet, 3 Refills, Maintenance, 07/10/19 13:08:00 EDT, Tablet, [facility], 158.5, cm, 07/01/19 12:34:00 EDT, Height, 84, kg, 10/05/18 2:07:00 EDT, Dry Weight Start Date: 07/10/19 Stop Date: 07/04/20 Status: Ordered Dicyclomine = 20 mg, QID PRN, 0 Refills, Maintenance, 07/31/19 11:13:00 EDT Start Date: 07/31/19 Status: Ordered Dilaudid Inj 0.5 mg, Injection, IV Push Slowly, Every 4 hours, PRN for Pain , Severe, Routine, 07/04/22 14:04:00EDT Start Date: 07/04/22 Stop Date: 07/05/22 Status: Discontinued EPINEPHrine 0.3 mg injectable solution 0 Refills, Maintenance, 07/04/22 14:51:00 EDT, Partial fill upon patient request if the prescription is for a schedule II opioid drug. Start Date: 07/04/22 Status: Ordered estradiol 1 mg oral tablet 1 mg, 1, tablet, By Mouth, Daily, # 30 tablet, Refills 0, Maintenance, 07/04/22 14:49:00 EDT, Partial fill upon patient request if the prescription is for a schedule II opioid drug. Start Date: 07/04/22 Status: Ordered estradiol 1 mg oral tablet 1, tablet, By Mouth, Daily, # 90 tablet, Refills 0, Tot. Refills 0, Maintenance, 06/21/20 12:46:00 EDT, Route to Pharmacy Electronically, [facility], 155, cm, 06/18/20 0:35:00 EDT, Height, 80, kg, 06/18/20 0:35:00 EDT, Dry Weight Start Date: 06/21/20 Status: Ordered fexofenadine 180 mg oral tablet 1 tablet = 180 mg, By Mouth, Daily, # 30 tablet, 0 Refills, Maintenance, 07/04/22 14:49:00 EDT, Tablet, Partial fill upon patient request if the prescription is for a schedule II opioid drug. Start Date: 07/04/22 Status: Ordered fluticasone-salmeterol 500 mcg-50 mcg inhalation powder 1, inhalation, Inhalation, 2 times a day, rinse mouth and throat after use, Refills 0, Maintenance,07/04/22 14:49:00 EDT, Powder Start Date: 07/04/22 Status: Ordered folic acid 1 mg oral tablet 1 mg, 1, tablet, By Mouth, Daily, # 90 tablet, Refills 0, Maintenance, 07/04/22 14:51:00 EDT, Partial fill upon patient request if the prescription is for a schedule II opioid drug. Start Date: 07/04/22 Status: Ordered gabapentin 400 mg oral capsule 800 mg, Capsule, By Mouth, Hold for: lethargy, 07/05/22 9:00:00 EDT Start Date: 07/05/22 Stop Date: 07/05/22 Status: Completed gabapentin 800 mg oral tablet 1 tablet = 800 mg, By Mouth, 3 times a day, # 270 tablet, 0 Refills, Maintenance, 07/04/22 14:48:00EDT, Tablet, Partial fill upon patient request if the prescription is for a schedule II opioid drug. Start Date: 07/04/22 Status: Ordered gabapentin 800 mg oral tablet 1 tablet = 800 mg, By Mouth, 2 times a day, # 90 tablet, 0 Refills, Maintenance, 12/25/21 22:42:00 EST, Tablet, Partial fill upon patient request if the prescription is for a schedule II opioid drug. Start Date: 12/25/21 Status: Ordered hydrOXYzine hydrochloride 25 mg oral tablet 1 tablet = 25 mg, By Mouth, Daily, # 30 tablet, 0 Refills, Maintenance, 12/13/18 14:06:45 EDT, Tablet Start Date: 12/13/18 Status: Ordered Imitrex 100 mg oral tablet 1 tablet = 100 mg, By Mouth, Daily, PRN for migraine headache, may repeat dose after 2 hours up to a maximum of 2, # 9 tablet, 1 Refills, Maintenance, 01/12/20 9:22:00 EST, Tablet, [facility], 158.5, cm, 01/07/20 15:56:00 EST, Height, 84, kg, 08... Start Date: 01/12/20 Status: Ordered Incruse Ellipta 62.5 mcg/inh inhalation powder 1 each, Inhalation, Every 24 hours, doses should be taken at least 24 hours apart, # 30 each, 0 Refills, Maintenance, 07/04/22 14:48:00 EDT, Powder, Partial fill upon patient request if the prescription is for a schedule II opioid drug. Start Date: 07/04/22 Status: Ordered Incruse Ellipta 62.5 mcg/inh inhalation powder 1 each, Inhalation, Every 24 hours, doses should be taken at least 24 hours apart, # 30 each, 0 Refills, Maintenance, 12/25/21 22:57:00 EST, Powder, Partial fill upon patient request if the prescription is for a schedule II opioid drug. Start Date: 12/25/21 Status: Ordered Lactaid Fast Action 9000 units oral tablet 1 tab, Daily, PRN, 0 Refills, Maintenance, 12/25/21 22:57:00 EST, Partial fill upon patient requestif the prescription is for a schedule II opioid drug. Start Date: 12/25/21 Status: Ordered LACTASE ENZ TAB 3000UNIT LACTASE ENZ TAB 3000UNIT, 0 Refills, Maintenance, 07/04/22 14:48:00 EDT Start Date: 07/04/22 Status: Ordered lisinopril 10 mg oral tablet 10 mg, 1, tablet, By Mouth, Daily, # 30 tablet, Refills 0, Maintenance, 07/04/22 14:49:00 EDT, Partial fill upon patient request if the prescription is for a schedule II opioid drug. Start Date: 07/04/22 Status: Ordered lisinopril 10 mg oral tablet 10 mg, 1, tablet, By Mouth, Daily, # 30 tablet, Refills 5, Tot. Refills 5, Soft Stop, 11/06/19 10:32:00 EDT, Route to Pharmacy Electronically, [facility], 158.5, cm, 11/04/19 8:30:00 EDT, Height, 84, kg, 10/05/18 2:07:00 EDT, Dry Weight Start Date: 11/06/19 Status: Ordered meclizine 25 mg oral tablet 1 tablet = 25 mg, By Mouth, Every 6 hours, # 60 tablet, 0 Refills, Maintenance, 07/04/22 14:50:00 EDT, Tablet, Partial fill upon patient request if the prescription is for a schedule II opioid drug. Start Date: 07/04/22 Status: Ordered meclizine 25 mg oral tablet 1 tablet = 25 mg, By Mouth, 4 times a day, PRN for dizziness, # 30 tablet, 0 Refills, Maintenance, 12/13/18 14:05:55 EDT, Tablet Start Date: 12/13/18 Status: Ordered melatonin 3 mg oral tablet 1 tablet = 3 mg, By Mouth, Daily at bedtime, PRN for insomnia, # 60 tablet, 0 Refills, Maintenance,12/13/18 14:07:38 EDT, Tablet Start Date: 12/13/18 Status: Ordered metFORMIN 500 mg oral tablet 1 tablet = 500 mg, By Mouth, Daily, with meals, # 30 tablet, 0 Refills, Maintenance, 07/04/22 14:48:00 EDT, Tablet, Partial fill upon patient request if the prescription is for a schedule II opioid drug. Start Date: 07/04/22 Status: Ordered metFORMIN 500 mg oral tablet, extended release 1 tablet = 500 mg, By Mouth, Daily, with evening meal, # 30 tablet, 5 Refills, Maintenance, 04/09/20 12:50:00 EST, ER Tablet, [facility], 156, cm, 01/22/20 18:13:00 EST, Height, 85, kg, 01/22/20 18:13:00 EST, Dry Weight Start Date: 04/09/20 Status: Ordered methotrexate 2.5 mg oral tablet 1 tablet = 2.5 mg, By Mouth, Every week, # 4 tablet, 0 Refills, Maintenance, 07/04/22 14:51:00 EDT,Tablet, Partial fill upon patient request if the prescription is for a schedule II opioid drug. Start Date: 07/04/22 Status: Ordered MethylPREDNISolone Dose Pack 4 mg oral tablet 1 pack/packet, By Mouth, Daily, as directed on package labeling, # 21 tablet, 0 Refills, Maintenance, 07/04/22 14:50:00 EDT, Tablet, Partial fill upon patient request if the prescription is for a schedule II opioid drug. Start Date: 07/04/22 Stop Date: 07/10/22 Status: Ordered metroNIDAZOLE 250 mg oral tablet 1 tablet = 250 mg, By Mouth, Every 8 hours, for 10 days, # 30 tablet, 0 Refills, Acute 07/15/22 9:37:00 EDT, 07/05/22 9:37:00 EDT, Tablet, [facility] 3, Partial fill upon patient request if the prescription is for a schedule II opioid drug... Start Date: 07/05/22 Stop Date: 07/15/22 Status: Ordered montelukast 10 mg oral tablet 10 mg, 1, tablet, By Mouth, Daily, Refills 0, Maintenance, 07/04/22 14:49:00 EDT, Partial fill uponpatient request if the prescription is for a schedule II opioid drug. Start Date: 07/04/22 Status: Ordered montelukast 10 mg oral tablet See Instructions, # 90 tablet, Refills 1 Tot. Refills 1, TAKE ONE (1) TABLET BY MOUTH ONCE DAILY INTHE EVENING., [facility] Start Date: 10/31/18 Status: Ordered multivitamin Vitamin B Complex oral capsule 1 capsule, By Mouth, Daily, # 30 capsule, 0 Refills, Maintenance, 07/04/22 14:51:00 EDT, Capsule, Partial fill upon patient request if the prescription is for a schedule II opioid drug. Start Date: 07/04/22 Status: Ordered multivitamin Vitamin B Complex oral capsule 1 capsule, By Mouth, Daily, # 90 capsule, 0 Refills, Maintenance, 06/17/20 9:47:00 EDT, Capsule, [facility], Partial fill upon patient request if the prescription is for a schedule II opioid drug., 1 capsule By Mouth Daily, 156, cm, 01/22/20 18:... Start Date: 06/17/20 Status: Ordered ondansetron 4 mg oral tablet, disintegrating 1 tablet = 4 mg, By Mouth, 3 times a day, PRN as needed for nausea/vomiting, # 10 tablet, 0 Refills, Soft Stop, 09/28/21 0:26:00 EDT, DIS Tablet, [facility]/pharmacy #[id number], Partial fill upon patient requestif the prescription is for a schedule II opioid moriah... Start Date: 09/28/21 Stop Date: 10/01/21 Status: Ordered oxyCODONE 5 mg oral tablet 5 mg, 1, tablet, By Mouth, Every 6 hours, PRN, for 3 days, # 12 tablet, Refills 0, Tot. Refills 0, Acute 07/08/22 9:37:00 EDT, Pain , Moderate, 07/05/22 9:37:00 EDT, Route to Pharmacy Electronically,[facility] 3, Partial fill upon patient... Start Date: 07/05/22 Stop Date: 07/08/22 Status: Ordered pantoprazole 40 mg oral delayed release tablet 40 mg, By Mouth, 2 times a day, # 180 each, Refills 3, Tot. Refills 3, Maintenance, 08/22/16 14:18:07, Route to Pharmacy Electronically, [id number], [facility] Start Date: 08/22/16 Stop Date: 08/17/17 Status: Ordered pantoprazole 40 mg oral delayed release tablet 1 tablet = 40 mg, By Mouth, Daily, # 30 tablet, 0 Refills, Maintenance, 07/04/22 14:48:00 EDT, EC Tablet Start Date: 07/04/22 Status: Ordered prazosin 2 mg oral capsule = 4 mg, By Mouth, Daily at bedtime, # 270 capsule, 0 Refills, Maintenance, 07/04/22 14:49:00 EDT, Capsule, Partial fill upon patient request if the prescription is for a schedule II opioid drug. Start Date: 07/04/22 Status: Ordered prazosin 2 mg oral capsule 2 capsule = 4 mg, By Mouth, Daily at bedtime, # 90 capsule, 0 Refills, Maintenance, 12/25/21 22:54:00 EST, Capsule, Partial fill upon patient request if the prescription is for a schedule II opioid drug. Start Date: 12/25/21 Status: Ordered RisperDAL 3 mg oral tablet 3 mg, 1, tablet, By Mouth, Daily in AM, # 30 tablet, Refills 0, Maintenance, 12/25/21 22:28:00 EST,Partial fill upon patient request if the prescription is for a schedule II opioid drug. Start Date: 12/25/21 Status: Ordered Risperidone = 9 mg, By Mouth, Daily at bedtime, 0 Refills, Maintenance, 05/08/18 14:51:59 EDT Start Date: 05/08/18 Status: Ordered risperiDONE 3 mg oral tablet See Instructions, 1 tablet By Mouth Daily, Refills 0, Maintenance, 07/04/22 14:50:00 EDT, Instructions Replace Required Details, Partial fill upon patient request if the prescription is for a schedule II opioid drug. Start Date: 07/04/22 Status: Ordered rOPINIRole 0.25 mg oral tablet 1 tablet = 0.25 mg, By Mouth, Daily at bedtime, 0 Refills, Maintenance, 12/25/21 22:55:00 EST, Partial fill upon patient request if the prescription is for a schedule II opioid drug. Start Date: 12/25/21 Status: Ordered rOPINIRole 0.5 mg oral tablet See Instructions, 1 tablet By Mouth 3 times a day, 0 Refills, Maintenance, 07/04/22 14:51:00 EDT, Tablet, Partial fill upon patient request if the prescription is for a schedule II opioid drug. Start Date: 07/04/22 Status: Ordered SudoGest 30 mg oral tablet 1 tablet = 30 mg, By Mouth, Every 6 hours, PRN as needed for cold symptoms, 0 Refills, Maintenance,07/04/22 14:51:00 EDT, Tablet, Partial fill upon patient request if the prescription is for a schedule II opioid drug. Start Date: 07/04/22 Status: Ordered SUMAtriptan 100 mg oral tablet 1 tablet = 100 mg, By Mouth, Once, PRN for migraine headache, # 9 tablet, 0 Refills, Maintenance, 07/04/22 14:52:00 EDT, Tablet, Partial fill upon patient request if the prescription is for a schedule II opioid drug. Start Date: 07/04/22 Status: Ordered Topamax 100 mg oral tablet 1 tablet = 100 mg, By Mouth, 2 times a day, Take 100 + 50 for total 150 mg twice daily. neurologist, # 180 tablet, 0 Refills, Maintenance, 01/24/17 10:13:34 EST, Tablet Start Date: 01/24/17 Status: Ordered Topamax 50 mg oral tablet 1 tablet = 50 mg, By Mouth, 2 times a day, Take 100 + 50 for total 150 mg twice daily. Neurologist,PRN, # 180 tablet, 0 Refills, Maintenance, 01/24/17 10:13:43 EST, Tablet Start Date: 01/24/17 Status: Ordered topiramate 50 mg oral tablet 1 tablet = 50 mg, By Mouth, 2 times a day, # 180 tablet, 0 Refills, Maintenance, 07/04/22 14:50:00 EDT, Tablet, Partial fill upon patient request if the prescription is for a schedule II opioid drug. Start Date: 07/04/22 Status: Ordered Ventolin HFA 108 mcg/inh inhalation aerosol with adapter INHALE 2 PUFFS BY MOUTH EVERY 4 HOURS NEEDED Start Date: 07/04/22 Status: Ordered Vitamin B Complex with Folic Acid oral tablet 1 tablet, By Mouth, Daily, # 90 tablet, 3 Refills, Maintenance, 06/03/19 10:55:00 EDT, Tablet, [facility], 1 tablet By Mouth Daily, 158.5, cm, 04/09/19 15:02:00 EST, Height, 84, kg, 10/05/18 2:07:00 EDT, Dry Weight Start Date: 06/03/19 Status: Ordered Vitamin C 500 mg oral tablet 1 tablet = 500 mg, By Mouth, Daily, # 30 tablet, 0 Refills, Maintenance, 07/04/22 14:51:00 EDT, Tablet, Partial fill upon patient request if the prescription is for a schedule II opioid drug. Start Date: 07/04/22 Status: Ordered Vitamin C 500 mg oral tablet 1 tablet = 500 mg, By Mouth, Daily, # 90 tablet, 0 Refills, Maintenance, 01/12/20 14:32:00 EST, Tablet, [facility], 158.5, cm, 01/07/20 15:56:00 EST, Height, 84, kg, 10/05/18 2:07:00 EDT, Dry Weight Start Date: 01/12/20 Stop Date: 04/11/20 Status: Ordered Vitamin D3 1000 intl units oral tablet 1 tablet = 25 mcg, By Mouth, Daily, # 30 tablet, 0 Refills, Maintenance, 07/04/22 14:50:00 EDT, Tablet, Partial fill upon patient request if the prescription is for a schedule II opioid drug. Start Date: 07/04/22 Status: Ordered Wixela Inhub 500 mcg-50 mcg inhalation powder 1 inhalation, Inhalation, 2 times a day, rinse mouth and throat after use, 0 Refills, Maintenance, 12/25/21 22:59:00 EST, Powder, Partial fill upon patient request if the prescription is for a schedule II opioid drug. Start Date: 12/25/21 Status: Ordered Xolair Prefilled Syringe 75 mg/0.5 mL subcutaneous solution 0 Refills, Maintenance, 07/04/22 14:49:00 EDT, Partial fill upon patient request if the prescription is for a schedule II opioid drug. Start Date: 07/04/22 Status: Ordered Problem List Condition Confirmation Course Effective Dates Status H ealth Status Informant Abdominal pain Confirmed Active Atopy 1, 2 Confirmed 05/05/10 Active Back pain Confirmed Active Bipolar disorder 3 Confirmed Active COPD - Chronic obstructive pulmonary disease Confirmed Active Diabetes mellitus Confirmed Active Current use of estrogen therapy Confirmed Active GERD - Gastro-esophageal reflux disease 4 Confirmed Active H/O: prolonged corticosteroid therapy Confirmed Active Hearing loss 5 Confirmed Active S/P total hysterectomy and bilateral salpingo-oophorectomy Confirmed Active Hypertension Confirmed Active Kidney stones Confirmed Active Knee pain, right- 08/29/13 Xray showed loss of medial meniscus Confirmed Active Hx of long-term (current) use of postmenopausal hormone replacement therapy Confirmed Active UTI (lower urinary tract infection) Confirmed Active Menopausal state Confirmed Active Migraine Confirmed Active OA - Osteoarthritis Confirmed Active Obese class I Confirmed Active Obese class II Confirmed Active Obesity Confirmed Active Pelvic pain in female Confirmed Active Pernicious anemia Confirmed Active PTSD (post-traumatic stress disorder) Confirmed Active Seasonal allergies Confirmed Active Shoulder pain, left Confirmed Active Shoulder pain, right Confirmed Active MRSA colonization Confirmed Active Vertigo Confirmed Active 1RAST 36 ALLERGENS, ALL 0, EXC 3+ ROACHES. IGE 83, WNL, 01/02/13. 2skin test pos: mold, trees, mites 3Dr Renae Servicenet 4chronic pantozapole, [address] [place] [address] audiology Results Radiology Reports (Most Recent Ten) * Exam Date Time Procedure Performing Provider Status 07/05/22 5:38 AM Chest 2 Views Frontal and Lat Von Oliveros; Auth (Verified) Notes: (Chest 2 Views Frontal and Lat) Reason For Exam: Rib fx f/u ?pneumo;Other: RESULT: Chest 2 Views Frontal and Lat Chest 2 Views Frontal and Lat Reason: Other:; Rib fx f u ?pneumo; Clinical Question(s): Pneumothorax COMPARISON: 07/04/2022. CT scan of the chest dated 07/04/2022 at 8:21 AM. FINDINGS: Slightly limited examination due to the patient's body habitus. Fine bony detail is lacking. LINES AND TUBES: None. LUNGS AND PLEURA: Clear lungs. Normal pulmonary vascularity. No pleural effusion. No pneumothorax. No apical pneumothorax seen bilaterally. HEART, MEDIASTINUM AND HIREN: Heart is normal in size. Normal mediastinal and hilar contour. BONES AND SOFT TISSUES: No acute abnormality. No definite displaced rib fractures are noted bilaterally. IMPRESSION: No acute abnormality. No significant interval change. WSN: [id number] Ordering Physician: Clay Vigil Dictated By: Say Valencia MD, V Dictated Date/Time: 07/05/22 9:32 am Reviewed By: Say Valencia MD, V Signed By: Say Valencia MD, V Signed Date/Time: 07/05/22 9:32 am Transcribed By: BESS Transcribed Date/Time: 07/05/22 9:29 am * Exam Date Time Procedure Performing Provider Status 07/04/22 4:[address] Maxilloface W/O Contrast Whit Cosme; Auth (Verified) Notes: (CT Maxilloface W/O Contrast) Reason For Exam: inferior orbital wall fracture;Trauma RESULT: CT Maxilloface W/O Contrast CT Maxilloface W/O Contrast INDICATION: Reason: Trauma; inferior orbital wall fracture; Clinical Question(s): Fracture; Order Comment: / Fracture TECHNIQUE: Noncontrast maxillofacial CT was performed. Reformats were performed in 3 planes. Automatic tube modulation and/or iterative dose reconstruction were used optimize scan parameters. COMPARISON: CT head without contrast 07/04/2022 FINDINGS: Cumulative Effects Analyst View Findings, Lines and Tubes: None. Facial soft tissues: There is a small soft tissue contusion and hematoma superior to the left orbitanterior to the frontal bone (230/203). There is a punctate focus of gas within the soft tissue, possibly related to a small laceration. Orbits: Both globes are intact as No intraorbital hematoma. There is a mildly comminuted and moderately displaced fracture of the left inferior orbital wall with herniation of orbital fat through thefracture defect. The fracture extends into the inferior orbital foramen and medially to involve theinferior margin of the lamina papyracea. No herniation of the inferior rectus muscle. Nasal bones: No fracture. Zygomatic arches: No fracture. Pterygoid plates: No fracture. Maxilla and alveolus: No fracture. Mandible: No fracture or dislocation. Paranasal sinuses: There is a small amount of layering hemorrhage in the left maxillary sinus and inferior left ethmoid air cells. Previously observed hemorrhage in the left nasal cavity is a longer identified. The remainder of the paranasal sinuses are clear. Other findings: Visualized intracranial structures are unremarkable. IMPRESSION: 1. Comminuted moderately displaced fracture of the inferior orbital wall with herniation of orbitalfat through the defect. No entrapment of the inferior rectus muscle. The fracture lines extend intothe inferior orbital foramen laterally and medially to the inferior portions of the left lamina papyracea. 2. Small soft tissue contusion and hematoma superior to the left orbit anterior to the frontal bone WSN: [id number] Ordering Physician: Igor Vincent Dictated By: Luis Fair MD Dictated Date/Time: 07/04/22 5:01 pm Reviewed By: Luis Fair MD Signed By: Luis Fair MD Signed Date/Time: 07/04/22 5:01 pm Transcribed By: BESS Transcribed Date/Time: 07/04/22 4:46 pm * Exam Date Time Procedure Performing Provider Status 07/04/22 9:28 AM Knee 1 or 2 Views Left Abbe , Melissa; Auth (Verified) Notes: (Knee 1 or 2 Views Left) Reason For Exam: with Pain;Trauma RESULT: Knee 1 or 2 Views Left Knee 1 or 2 Views Left INDICATION: Reason: Trauma; with Pain; Clinical Question(s): Fracture TECHNIQUE: AP and lateral views.. COMPARISON: None. FINDINGS: There is no fracture or focal bony lesion. The joint spaces are normal including no degenerative change. There is no chondrocalcinosis. There is there is no joint effusion. IMPRESSION: 1. No bony injury. 2. No joint abnormality. WSN: [id number] Ordering Physician: Igor Vincent Dictated By: Micheal Santos MD Dictated Date/Time: 07/04/22 9:47 am Reviewed By: Micheal Santos MD Signed By: Micheal Santos MD Signed Date/Time: 07/04/22 9:47 am Transcribed By: BESS Transcribed Date/Time: 07/04/22 9:47 am * Exam Date Time Procedure Performing Provider Status 07/04/22 9:28 AM Knee 1 or 2 Views Right Abbe , Melissa ; Auth (Verified) Notes: (Knee 1 or 2 Views Right) Reason For Exam: with Pain;Trauma RESULT: Knee 1 or 2 Views Right Knee 1 or 2 Views Right INDICATION: Posttraumatic knee pain. TECHNIQUE: AP and lateral views. COMPARISON: None. FINDINGS: There is no fracture or focal bony lesion. The joint spaces are normal including no degenerative change. There is no chondrocalcinosis. There is a small joint effusion. IMPRESSION: 1. No bony injury. 2. No arthritic changes. 3. Small joint effusion.. WSN: [id number] Ordering Physician: Igor Vincent Dictated By: Micheal Santos MD Dictated Date/Time: 07/04/22 9:46 am Reviewed By: Micheal Santos MD Signed By: Micheal Santos MD Signed Date/Time: 07/04/22 9:46 am Transcribed By: BESS Transcribed Date/Time: 07/04/22 9:46 am * Exam Date Time Procedure Performing Provider Status 07/04/22 9:28 AM Hand Min 3 Views Left Abbe , Melissa; Auth (Verified) Notes: (Hand Min 3 Views Left) Reason For Exam: with Pain;Trauma RESULT: Hand Min 3 Views Left Hand Min 3 Views Left INDICATION / CLINICAL QUESTION: Posttraumatic left hand pain. COMPARISON: None.. TECHNIQUE: AP, oblique, and lateral views. FINDINGS: There is no fracture or focal bony lesion . The joint spaces are normal. There is no significant soft tissue abnormality. IMPRESSION: 1. No bony injury. 2. No joint abnormality.. WSN: [id number] Ordering Physician: Igor Vincent Dictated By: Micheal Santos MD Dictated Date/Time: 07/04/22 9:46 am Reviewed By: Micheal Santos MD Signed By: Micheal Santos MD Signed Date/Time: 07/04/22 9:46 am Transcribed By: BESS Transcribed Date/Time: 07/04/22 9:45 am * Exam Date Time Procedure Performing Provider Status 07/04/22 9:28 AM Elbow Min 3 Views Right Melissa Mcadams ; Auth (Verified) Notes: (Elbow Min 3 Views Right) Reason For Exam: with Pain;Trauma RESULT: Elbow Min 3 Views Right Elbow Min 3 Views Right INDICATION / CLINICAL QUESTION: Posttraumatic elbow pain. TECHNIQUE: AP, lateral, and oblique views. COMPARISON: None. FINDINGS: There is no fracture or focal bony lesion. There is no dislocation. There is no joint effusion. There is no evidence of arthritis. IMPRESSION: 1. There is no bone or joint abnormality seen. WSN: [id number] Ordering Physician: Igor Vincent Dictated By: Micheal Santos MD Dictated Date/Time: 07/04/22 9:45 am Reviewed By: Micheal Santos MD Signed By: Micheal Santos MD Signed Date/Time: 07/04/22 9:45 am Transcribed By: CSB Transcribed Date/Time: 07/04/22 9:44 am * Exam Date Time Procedure Performing Provider Status 07/04/22 9:[address] Thoracic Spine W/ Contrast Whit Jensen; Auth (Verified) Notes: (CT Thoracic Spine W/ Contrast) Reason For Exam: Spine fracture, thoracic, traumatic;Other: RESULT: CT Thoracic Spine W/ Contrast CT Chest W/ Contrast, CT Abd/Pelvis W/ IV Contrast Only, CT Lumbar Spine W/ Contrast, CT Thoracic Spine W/ Contrast INDICATION: Reason: Other:; Chest trauma, blunt; Clinical Question(s): Other:; Aortic hilar injury TECHNIQUE: Helical CT scan of the chest, abdomen, and pelvis with IV contrast, formatted in 3 planes. The original dataset was reconstructed with a small field of view around the thoracic and lumbar spine utilizing soft tissue and bone algorithm reconstructions in 3 planes. 100 cc of Omnipaque 300 was administered intravenously. This study was performed without oral contrast. Weight-based protocol was performed using automatic exposure control. CTDIvol Body: 14.70 mGy, DLP Body: 1037 mGy*cm. COMPARISON: None. FINDINGS: Cumulative Effects Analyst view findings, lines and tubes: None. Trachea and airways: Patent without evidence of tracheal or endobronchial lesion. Lungs and pleura: Mild parenchymal scarring in lung apices. No discrete focal consolidation. No pulmonary contusion or laceration. No effusion or pneumothorax. Mediastinum and hiren: No mass or hematoma. No mediastinal or hilar lymphadenopathy. No esophageal abnormality. Heart: Heart is normal in size. No pericardial effusion. Moderate coronary artery calcification. Aorta: Moderate vascular calcification but no aneurysm. Moderate noncalcified atherosclerotic plaque of the brachiocephalic artery. Pulmonary arteries: Normal caliber. No evidence of pulmonary embolism on this study performed without angiographic technique. Chest wall soft tissues: No acute abnormality. Diaphragm: Intact. Liver: Normal in attenuation and morphology. No suspicious lesion. Gallbladder: Absent consistent with prior cholecystectomy. Bile ducts: No biliary ductal dilation. Spleen: Normal in size. Pancreas: No suspicious lesion or ductal dilatation. Adrenal glands: No nodule. Kidneys and ureters: No hydronephrosis, stone, or suspicious lesion. Bladder: No wall thickening or surrounding stranding. Reproductive organs: The uterus surgically absent. No adnexal mass. Stomach, small bowel, and large bowel: Stomach, small bowel and large bowel are normal in caliber. No evidence of bowel obstruction. No acute inflammatory process of the bowel. Appendix: Normal appendix. Peritoneum and retroperitoneum: No ascites or pneumoperitoneum. No omental or mesenteric lesions. Lymph nodes: No enlarged lymph nodes. Blood vessels: Moderate atherosclerotic vascular calcification. No aortic aneurysm. No evidence of venous thrombosis. Abdominal and pelvic wall soft tissues: No acute abnormality. Bones: No acute abnormality. The pelvic ring is intact. Both proximal femurs are intact. No traumatic malalignment of the thoracic and lumbar spine. No acute vertebral body fracture. Sternum is intact. No displaced rib fractures. There is however some very subtle cortical irregularity of the anterior left fourth through eighth ribs, which could represent nondisplaced fractures. IMPRESSION: 1. Very subtle cortical irregularity of the anterior left fourth through eighth ribs, which could represent nondisplaced fractures. No displaced rib fractures. Recommend correlation for point tenderness over the chest wall. 2. Otherwise no other CT evidence of acute traumatic injury to the chest abdomen or pelvis. WSN: [id number] Ordering Physician: Igor Vincent Dictated By: Luis Fair MD Dictated Date/Time: 07/04/22 9:45 am Reviewed By: Luis Fair MD Signed By: Luis Fair MD Signed Date/Time: 07/04/22 9:45 am Transcribed By: BESS Transcribed Date/Time: 07/04/22 9:31 am * Exam Date Time Procedure Performing Provider Status 07/04/22 9:[address] Lumbar Spine W/ Contrast Whit Cosme; Umm (Verified) Notes: (CT Lumbar Spine W/ Contrast) Reason For Exam: Spine fracture, lumbar, traumatic;Other: RESULT: CT Lumbar Spine W/ Contrast CT Chest W/ Contrast, CT Abd/Pelvis W/ IV Contrast Only, CT Lumbar Spine W/ Contrast, CT Thoracic Spine W/ Contrast INDICATION: Reason: Other:; Chest trauma, blunt; Clinical Question(s): Other:; Aortic hilar injury TECHNIQUE: Helical CT scan of the chest, abdomen, and pelvis with IV contrast, formatted in 3 planes. The original dataset was reconstructed with a small field of view around the thoracic and lumbar spine utilizing soft tissue and bone algorithm reconstructions in 3 planes. 100 cc of Omnipaque 300 was administered intravenously. This study was performed without oral contrast. Weight-based protocol was performed using automatic exposure control. CTDIvol Body: 14.70 mGy, DLP Body: 1037 mGy*cm. COMPARISON: None. FINDINGS: Cumulative Effects Analyst view findings, lines and tubes: None. Trachea and airways: Patent without evidence of tracheal or endobronchial lesion. Lungs and pleura: Mild parenchymal scarring in lung apices. No discrete focal consolidation. No pulmonary contusion or laceration. No effusion or pneumothorax. Mediastinum and hiren: No mass or hematoma. No mediastinal or hilar lymphadenopathy. No esophageal abnormality. Heart: Heart is normal in size. No pericardial effusion. Moderate coronary artery calcification. Aorta: Moderate vascular calcification but no aneurysm. Moderate noncalcified atherosclerotic plaque of the brachiocephalic artery. Pulmonary arteries: Normal caliber. No evidence of pulmonary embolism on this study performed without angiographic technique. Chest wall soft tissues: No acute abnormality. Diaphragm: Intact. Liver: Normal in attenuation and morphology. No suspicious lesion. Gallbladder: Absent consistent with prior cholecystectomy. Bile ducts: No biliary ductal dilation. Spleen: Normal in size. Pancreas: No suspicious lesion or ductal dilatation. Adrenal glands: No nodule. Kidneys and ureters: No hydronephrosis, stone, or suspicious lesion. Bladder: No wall thickening or surrounding stranding. Reproductive organs: The uterus surgically absent. No adnexal mass. Stomach, small bowel, and large bowel: Stomach, small bowel and large bowel are normal in caliber. No evidence of bowel obstruction. No acute inflammatory process of the bowel. Appendix: Normal appendix. Peritoneum and retroperitoneum: No ascites or pneumoperitoneum. No omental or mesenteric lesions. Lymph nodes: No enlarged lymph nodes. Blood vessels: Moderate atherosclerotic vascular calcification. No aortic aneurysm. No evidence of venous thrombosis. Abdominal and pelvic wall soft tissues: No acute abnormality. Bones: No acute abnormality. The pelvic ring is intact. Both proximal femurs are intact. No traumatic malalignment of the thoracic and lumbar spine. No acute vertebral body fracture. Sternum is intact. No displaced rib fractures. There is however some very subtle cortical irregularity of the anterior left fourth through eighth ribs, which could represent nondisplaced fractures. IMPRESSION: 1. Very subtle cortical irregularity of the anterior left fourth through eighth ribs, which could represent nondisplaced fractures. No displaced rib fractures. Recommend correlation for point tenderness over the chest wall. 2. Otherwise no other CT evidence of acute traumatic injury to the chest abdomen or pelvis. WSN: [id number] Ordering Physician: Igor Vincent Dictated By: Luis Fair MD Dictated Date/Time: 07/04/22 9:45 am Reviewed By: Luis Fair MD Signed By: Luis Fair MD Signed Date/Time: 07/04/22 9:45 am Transcribed By: BESS Transcribed Date/Time: 07/04/22 9:31 am * Exam Date Time Procedure Performing Provider Status 07/04/22 9:[address] Abd/Pelvis W/ IV Contrast Only Annieaustin Whit; Auth (Verified) Notes: (CT Abd/Pelvis W/ IV Contrast Only) Reason For Exam: Abd trauma, blunt;Other: RESULT: CT Abd/Pelvis W/ IV Contrast Only CT Chest W/ Contrast, CT Abd/Pelvis W/ IV Contrast Only, CT Lumbar Spine W/ Contrast, CT Thoracic Spine W/ Contrast INDICATION: Reason: Other:; Chest trauma, blunt; Clinical Question(s): Other:; Aortic hilar injury TECHNIQUE: Helical CT scan of the chest, abdomen, and pelvis with IV contrast, formatted in 3 planes. The original dataset was reconstructed with a small field of view around the thoracic and lumbar spine utilizing soft tissue and bone algorithm reconstructions in 3 planes. 100 cc of Omnipaque 300 was administered intravenously. This study was performed without oral contrast. Weight-based protocol was performed using automatic exposure control. CTDIvol Body: 14.70 mGy, DLP Body: 1037 mGy*cm. COMPARISON: None. FINDINGS: Cumulative Effects Analyst view findings, lines and tubes: None. Trachea and airways: Patent without evidence of tracheal or endobronchial lesion. Lungs and pleura: Mild parenchymal scarring in lung apices. No discrete focal consolidation. No pulmonary contusion or laceration. No effusion or pneumothorax. Mediastinum and hiren: No mass or hematoma. No mediastinal or hilar lymphadenopathy. No esophageal abnormality. Heart: Heart is normal in size. No pericardial effusion. Moderate coronary artery calcification. Aorta: Moderate vascular calcification but no aneurysm. Moderate noncalcified atherosclerotic plaque of the brachiocephalic artery. Pulmonary arteries: Normal caliber. No evidence of pulmonary embolism on this study performed without angiographic technique. Chest wall soft tissues: No acute abnormality. Diaphragm: Intact. Liver: Normal in attenuation and morphology. No suspicious lesion. Gallbladder: Absent consistent with prior cholecystectomy. Bile ducts: No biliary ductal dilation. Spleen: Normal in size. Pancreas: No suspicious lesion or ductal dilatation. Adrenal glands: No nodule. Kidneys and ureters: No hydronephrosis, stone, or suspicious lesion. Bladder: No wall thickening or surrounding stranding. Reproductive organs: The uterus surgically absent. No adnexal mass. Stomach, small bowel, and large bowel: Stomach, small bowel and large bowel are normal in caliber. No evidence of bowel obstruction. No acute inflammatory process of the bowel. Appendix: Normal appendix. Peritoneum and retroperitoneum: No ascites or pneumoperitoneum. No omental or mesenteric lesions. Lymph nodes: No enlarged lymph nodes. Blood vessels: Moderate atherosclerotic vascular calcification. No aortic aneurysm. No evidence of venous thrombosis. Abdominal and pelvic wall soft tissues: No acute abnormality. Bones: No acute abnormality. The pelvic ring is intact. Both proximal femurs are intact. No traumatic malalignment of the thoracic and lumbar spine. No acute vertebral body fracture. Sternum is intact. No displaced rib fractures. There is however some very subtle cortical irregularity of the anterior left fourth through eighth ribs, which could represent nondisplaced fractures. IMPRESSION: 1. Very subtle cortical irregularity of the anterior left fourth through eighth ribs, which could represent nondisplaced fractures. No displaced rib fractures. Recommend correlation for point tenderness over the chest wall. 2. Otherwise no other CT evidence of acute traumatic injury to the chest abdomen or pelvis. WSN: [id number] Ordering Physician: Igor Vincent Dictated By: Luis Fair MD Dictated Date/Time: 07/04/22 9:45 am Reviewed By: Luis Fair MD Signed By: Luis Fair MD Signed Date/Time: 07/04/22 9:45 am Transcribed By: BESS Transcribed Date/Time: 07/04/22 9:31 am * Exam Date Time Procedure Performing Provider Status 07/04/22 9:[address] Chest W/ Contrast Ara Cosme on; Auth (Verified) Notes: (CT Chest W/ Contrast) Reason For Exam: Chest trauma, blunt;Other: RESULT: CT Chest W/ Contrast CT Chest W/ Contrast, CT Abd/Pelvis W/ IV Contrast Only, CT Lumbar Spine W/ Contrast, CT Thoracic Spine W/ Contrast INDICATION: Reason: Other:; Chest trauma, blunt; Clinical Question(s): Other:; Aortic hilar injury TECHNIQUE: Helical CT scan of the chest, abdomen, and pelvis with IV contrast, formatted in 3 planes. The original dataset was reconstructed with a small field of view around the thoracic and lumbar spine utilizing soft tissue and bone algorithm reconstructions in 3 planes. 100 cc of Omnipaque 300 was administered intravenously. This study was performed without oral contrast. Weight-based protocol was performed using automatic exposure control. CTDIvol Body: 14.70 mGy, DLP Body: 1037 mGy*cm. COMPARISON: None. FINDINGS: Cumulative Effects Analyst view findings, lines and tubes: None. Trachea and airways: Patent without evidence of tracheal or endobronchial lesion. Lungs and pleura: Mild parenchymal scarring in lung apices. No discrete focal consolidation. No pulmonary contusion or laceration. No effusion or pneumothorax. Mediastinum and hiren: No mass or hematoma. No mediastinal or hilar lymphadenopathy. No esophageal abnormality. Heart: Heart is normal in size. No pericardial effusion. Moderate coronary artery calcification. Aorta: Moderate vascular calcification but no aneurysm. Moderate noncalcified atherosclerotic plaque of the brachiocephalic artery. Pulmonary arteries: Normal caliber. No evidence of pulmonary embolism on this study performed without angiographic technique. Chest wall soft tissues: No acute abnormality. Diaphragm: Intact. Liver: Normal in attenuation and morphology. No suspicious lesion. Gallbladder: Absent consistent with prior cholecystectomy. Bile ducts: No biliary ductal dilation. Spleen: Normal in size. Pancreas: No suspicious lesion or ductal dilatation. Adrenal glands: No nodule. Kidneys and ureters: No hydronephrosis, stone, or suspicious lesion. Bladder: No wall thickening or surrounding stranding. Reproductive organs: The uterus surgically absent. No adnexal mass. Stomach, small bowel, and large bowel: Stomach, small bowel and large bowel are normal in caliber. No evidence of bowel obstruction. No acute inflammatory process of the bowel. Appendix: Normal appendix. Peritoneum and retroperitoneum: No ascites or pneumoperitoneum. No omental or mesenteric lesions. Lymph nodes: No enlarged lymph nodes. Blood vessels: Moderate atherosclerotic vascular calcification. No aortic aneurysm. No evidence of venous thrombosis. Abdominal and pelvic wall soft tissues: No acute abnormality. Bones: No acute abnormality. The pelvic ring is intact. Both proximal femurs are intact. No traumatic malalignment of the thoracic and lumbar spine. No acute vertebral body fracture. Sternum is intact. No displaced rib fractures. There is however some very subtle cortical irregularity of the anterior left fourth through eighth ribs, which could represent nondisplaced fractures. IMPRESSION: 1. Very subtle cortical irregularity of the anterior left fourth through eighth ribs, which could represent nondisplaced fractures. No displaced rib fractures. Recommend correlation for point tenderness over the chest wall. 2. Otherwise no other CT evidence of acute traumatic injury to the chest abdomen or pelvis. WSN: [id number] Ordering Physician: Igor Vincent Dictated By: Luis Fair MD Dictated Date/Time: 07/04/22 9:45 am Reviewed By: Luis Fair MD Signed By: Luis Fair MD Signed Date/Time: 07/04/22 9:45 am Transcribed By: BESS Transcribed Date/Time: 07/04/22 9:31 am Vital Signs Most recent to oldest [Reference Range]: 1 2 3 Height 154.9 cm (07/05/22 7:27 AM) 154.9 cm (07/05/22 4:21 AM) 154.9 cm (07/04/22 11:10 PM) Weight 80.2 kg (07/04/22 1:18 PM) Oxygen Saturation [94-100 %] 98 % (07/05/22 7: AM) 96 % (07/05/22 4:21 AM) 94 % (07/04/22 11:10 PM) Pulse Rate [55-90 bpm] 81 bpm (07/05/22 7:27 AM) 71 bpm (07/05/22 4:21 AM) 98 bpm *H* (07/04/22 11:10 PM) Body Mass Index [18.5-24.99 kg/m2] 33.43 kg/m2 *>HHI* (07/04/22 1:18 PM) Blood Pressure [90-138/55-84 mm Hg] 149/56mm Hg *H* (07/05/22 7:27 AM) 122/59mm Hg (07/05/22 4:21 AM) 122/59mm Hg (07/04/22 11:10 PM) Respiratory Rate [16-30 br/min] 18 br/min (07/05/22 9:12 AM) 20 br/min (07/05/22 7:27 AM) 16 br/min (07/05/22 5:11 AM) Temperature [96.8-100.4 DegF] 98.3 DegF (07/05/22 7:27 AM) 98 DegF (07/05/22 4:21 AM) 98.2 DegF (07/04/22 11:10 PM) Liters per Minute 2 L/min (07/04/22 12:02 PM) Mode of Delivery (Oxygen) Room air (07/05/22 7:27 AM) Room air (07/05/22 4:21 AM) Room air (07/04/22 11:10 PM) Blood pressure sites Arm, left (07/05/22 7:27 AM) Arm, left (07/05/22 4:21 AM) Arm, left (07/04/22 11:10 PM) Temperature Route Oral (07/05/22 7:27 AM) Oral (07/05/22 4:21 AM) Oral (07/04/22 11:10 PM) Dry Weight 80.2 kg (07/04/22 1:18 PM) Weight Obtained Via Standing scale (07/04/22 1:18 PM) Social History Social History Type Response Smoking Status Former smoker; Tobac co user in household: No; Type: Cigarettes; Tobacco use times per day: UP TO 3 PPD; Stopped at age: 52; entered on: 04/14/14 Sex Consult note * Musa RUBALCAVA, Clay: PERFORM, MODIFY Event Display: Consult Authored Date: Patient: ??ELIZABETH MERCEDES ? Age:??61 Years?Sex:??Female?:??[id number]?? Chief Complaint/Reason for Consult Comes in as a category 1 trauma after he sustained ground-level fall with head strike. History of Present Illness 61yoF cat1 trauma s/p fall. -LOC, EtOH unknown, GCS 13. Per EMS, patient had a fall outside from ground level, getting car to go to an appt, -LOC, screaming after fall. Confused on EMS arrival, refused collar. Decline in mental status during ambulance transport with development of garbled speech. Upon arrival, primary survey was completed and is as follows: airway patent, breath sounds present equal bilaterally, BP 78/60, repeat 94/72 pupils 3mm and reactive, GCS 13 (E3 V4 M6). Secondary surveywas completed and is documented below. Lopeno collar was placed for c-spine precaution. 1L IV fluidswere administered as well as 1 bag of O- pRBCs for persistent hypotension. Patient underwent CT head and found to have an inferior orbital wall fx. Max face CT??was done and confirmed the findings. Trauma Max face was consulted for evaluation and management. ?? Review of Systems A 14-point review of systems was negative except as documented above?? Physical Exam Vitals & Measurements T:??97.5?F?? HR:??87??(Peripheral)?? RR:??17?? BP:??144/57?? SpO2:??98%?? HT:??154.9??cm?? WT:??80.2??kg?? BMI:??33.43? General: no acute distress, alert, awake Head: normocephalic, no hematomas, no deformities Face:??1cm laceration to the left eyebrow with??ecchymosis Eyes: pupils are 3 mm, equal, round, and reactive; extraocular movement intact Ears: no hemotympanum, no blood in external auditory canal, no abrasions, no miranda's sign Nose: no epistaxis, no deformity Mandible: no deformity, no malocclusion Heart: regular rate and rhythm Lungs: clear to auscultation bilaterally Abdomen: soft, nondistended, nontender, no wounds, no ecchymosis, no hematoma Extremities:??abrasion on inside of left arm, abrasion of right elbow, abrasion on left and right knee. No long bone deformities, no wounds, no ecchymosis, no hematomas, full active range of motion Neurologic: GCS 13; 5/5 strength and sensation to light touch intact in the bilateral upper and lower extremities Vascular: palpable dorsalis pedis and radial pulses bilaterally ?? Assessment/Plan 61yoF cat1 trauma s/p fall. -LOC, EtOH unknown, GCS 13. Per EMS, patient had a fall outside from ground level, getting car to go to an appointment, -LOC, screaming after fall.??Work up From the trauma team included a CT head and subsequent max face that showed in inferior orbital wall fracture withherniation of periorbital fat but no evidence of muscle entrapment. On exam patient??does not have evidence of entrapment??but does have mild periorbital swelling and ecchymosis. Injuries do not needto be repaired emergently. Patient can follow up??in one week in the??office.??The following shouldbe??initiated at this time: ?? Recommendations: Augmentin 10 days (Ordered Cefpodoxime and Flagyl per pharmacy recommendation in setting of Augmentin allergy) Sinus precautions Outpatient follow up [address] Cuevas??when swelling has come down. Ophthalmology??outpatient follow up. ?? Case discussed with Dr. [facility] [id number] Problem List/Past Medical History Ongoing Obese class I Procedure/Surgical History No qualifying data available. Home Medications Albuterol: INHALE 2 PUFFS BY MOUTH EVERY 4 HOURS NEEDED Aripiprazole: 15 mg = 1 tablet, By Mouth, Daily Ascorbic Acid: 500 mg = 1 tablet, By Mouth, Daily Aspirin: 81 mg = 1 tablet, By Mouth, Daily Capsaicin Topical: 1 application, Topically, 2 times a day Carbamazepine: 400 mg = 1 tablet, By Mouth, 2 times a day Cefpodoxime: 200 mg = 1 tablet, By Mouth, Every 12 hours Cholecalciferol: 25 mcg = 1 tablet, By Mouth, Daily EPINEPHrine Estradiol: 1 mg = 1 tablet, By Mouth, Daily Fexofenadine: 180 mg = 1 tablet, By Mouth, Daily Fluticasone-Salmeterol: 1 inhalation, Inhalation, 2 times a day, rinse mouth and throat after use Folic Acid: 1 mg = 1 tablet, By Mouth, Daily Gabapentin: 800 mg = 1 tablet, By Mouth, 3 times a day Lisinopril: 10 mg = 1 tablet, By Mouth, Daily Meclizine: 25 mg = 1 tablet, By Mouth, Every 6 hours Melatonin: 3 mg = 1 tablet, By Mouth, Daily at bedtime, PRN (for insomnia) Meloxicam: 7.5 mg = 1 tablet, By Mouth, Daily Metformin: 500 mg = 1 tablet, By Mouth, Daily, with meals Methotrexate: 2.5 mg = 1 tablet, By Mouth, Every week MethylPREDNISolone: 1 pack/packet, By Mouth, Daily, as directed on package labeling Miscellaneous Rx (LACTASE ENZ ??TAB 3000UNIT) Montelukast: 10 mg = 1 tablet, By Mouth, Daily Multivitamin: 1 capsule, By Mouth, Daily omalizumab Pantoprazole: 40 mg = 1 tablet, By Mouth, Daily Prazosin: 4 mg, By Mouth, Daily at bedtime Pseudoephedrine: 30 mg = 1 tablet, By Mouth, Every 6 hours, PRN (as needed for cold symptoms) Risperidone: See Instructions, 1 tablet By Mouth Daily Ropinirole: See Instructions, 1 tablet By Mouth 3 times a day Sumatriptan: 100 mg = 1 tablet, By Mouth, Once, PRN (for migraine headache) Topiramate: 50 mg = 1 tablet, By Mouth, 2 times a day umeclidinium: 1 each, Inhalation, Every 24 hours, doses should be taken at least 24 hours apart Allergies Augmentin??(hives) Bactrim??(hives) morphine??(hives) penicillin??(hives) Family History No family history recorded. Lab Results Labs Last 24 Hours BLOOD COUNT & DIFF ? Event Name?? Event Result?? Date/Time?? WBC 13.9 k/mm3??High 07/04/22 08:37:00 RBC 3.75 m/mm3??Low 07/04/22 08:37:00 Hgb 8.8 Gm/dL??Low 07/04/22 08:37:00 Hct 30.3 %??Low 07/04/22 08:37:00 MCV 80.8 femtoliters 07/04/22 08:37:00 MCH 23.5 pg??Low 07/04/22 08:37:00 MCHC 29 g/dL??Low 07/04/22 08:37:00 Platelet Count 292 k/mm3 07/04/22 08:37:00 MPV 10 femtoliters 07/04/22 08:37:00 Nucleated RBC (Automated) 0 #/100 WBC'S 07/04/22 08:37:00 ? COAG ? Event Name?? Event Result?? Date/Time?? INR 1 07/04/22 08:37:00 Protime (PT) 10.2 seconds 07/04/22 08:37:00 APTT 22.2 seconds??Low 07/04/22 08:37:00 ? CHEM GENERAL ? Event Name?? Event Result?? Date/Time?? Sodium 139 mmol/L 07/04/22 08:37:00 Chloride 106 mmol/L 07/04/22 08:37:00 Bicarbonate Level 22 mmol/L 07/04/22 08:37:00 Anion Gap 11 07/04/22 08:37:00 Glucose Level 166 mg/dL??High 07/04/22 08:37:00 BUN 35 mg/dL??High 07/04/22 08:37:00 Creatinine-Blood 1.1 mg/dL??High 07/04/22 08:37:00 Amylase 68 units/L 07/04/22 08:37:00 ? Images RESULT: CT Maxilloface W/O Contrast CT Maxilloface W/O Contrast? INDICATION: Reason: Trauma; inferior orbital wall fracture; Clinical Question(s): Fracture; Order Comment: / Fracture ?? TECHNIQUE: Noncontrast maxillofacial CT was performed. Reformats were performed in 3 planes. Automatic tube modulation and/or iterative dose reconstruction were used optimize scan parameters. ? COMPARISON: CT head without contrast 07/04/2022 ?? FINDINGS:? Cumulative Effects Analyst View Findings, Lines and Tubes: None. ?? Facial soft tissues: There is a small soft tissue contusion and hematoma superior to the left orbitanterior to the frontal bone (230/203). There is a punctate focus of gas within the soft tissue, possibly related to a small laceration. ?? Orbits: Both globes are intact as No intraorbital hematoma. There is a mildly comminuted and moderately displaced fracture of the left inferior orbital wall with herniation of orbital fat through thefracture defect. The fracture extends into the inferior orbital foramen and medially to involve theinferior margin of the lamina papyracea. No herniation of the inferior rectus muscle. ?? Nasal bones: No fracture. ?? Zygomatic arches: No fracture. ?? Pterygoid plates: No fracture. ?? Maxilla and alveolus: No fracture. ?? Mandible: No fracture or dislocation. ?? Paranasal sinuses: There is a small amount of layering hemorrhage in the left maxillary sinus and inferior left ethmoid air cells. Previously observed hemorrhage in the left nasal cavity is a longer identified. The remainder of the paranasal sinuses are clear. ?? Other findings: Visualized intracranial structures are unremarkable. ? IMPRESSION:? 1. ??Comminuted moderately ??displaced fracture of the inferior orbital wall with herniation of orbital fat through the defect. No entrapment of the inferior rectus muscle. The fracture lines extend into the inferior orbital foramen laterally and medially to the inferior portions of the left laminapapyracea. 2. ??Small soft tissue contusion and hematoma superior to the left orbit anterior to the frontal bone?? History and physical note * Igor Vincent: VERIFY, MODIFY, SIGN, MODIFY, MODIFY, SIGN, MODIFY, PERFORM, MODIFY, MODIFY, MODIFY Event Display: History and Physical Hospital Authored Date: Patient: ELIZABETH MERCEDES Age: 61 years Sex: Female : 1960 Associated Diagnoses: None Author: Igor Vincent Trauma History Elizabeth Mercedes 61yoF cat1 trauma s/p fall. -LOC, EtOH unknown, GCS 13. Per EMS, patient had a fall outside from ground level, getting car to go to an appt, -LOC, screaming after fall. Confused on EMS arrival, refused collar. Decline in mental status during ambulance transport with development of garbled speech. POC 194, 194/165 RR 16 on EMS vitals. Upon arrival, primary survey was completed and is as follows: airway patent, breath sounds present equal bilaterally, BP 78/60, repeat 94/72 pupils 3mm and reactive, GCS 13 (E3 V4 M6). Secondary survey was completed and is documented below. Lopeno collar was placed for c-spine precaution. 1L IV fluids were administered as well as 1 bag of O- pRBCs for persistent hypotension. Patient was placed on 5L NC for SpO2 < 90% which subsequently improved to 94%. Following CXR, the patient was taken to CT for further workup. Past Medical History COPD, HTN, DM, Bipolar disorder, PTSD Past Surgical History Unknown Medications Unknown Allergies Unknown Family History Unknown Social History Unknown Review of Systems A 14-point review of systems was negative except as documented above Physical Examination Vital Signs: T 97.8, BP 94/72, HR 98, RR 16, SpO2 94% on 5L NC General: no acute distress, alert, awake Head: normocephalic, no hematomas, no deformities Face: 1cm laceration to the left eyebrow. no ecchymosis, no abrasions. Eyes: pupils are 3 mm, equal, round, and reactive; extraocular movement intact Ears: no hemotympanum, no blood in external auditory canal, no abrasions, no miranda's sign Nose: no epistaxis, no deformity Mandible: no deformity, no malocclusion Neck: cervical-collar in place, no hematoma, no ecchymosis, no wounds, trachea midline Chest: symmetric, no deformity, sternum, chest wall, and clavicles are nontender to palpation, no crepitus appreciated Heart: regular rate and rhythm Lungs: clear to auscultation bilaterally Abdomen: soft, nondistended, nontender, no wounds, no ecchymosis, no hematoma Pelvis: stable, nontender Back: no ecchymosis, no abrasions, no hematoma, no wounds Cervical spine: +tenderness. no midline deformities or stepoffs, cervical-collar in place Thoracic spine: +tenderness. no midline deformities or stepoffs Lumbar spine: +tenderness. no midline deformities or stepoffs Extremities: abrasion on inside of left arm, abrasion of right elbow, abrasion on left and right knee. No long bone deformities, no wounds, no ecchymosis, no hematomas, full active range of motion Neurologic: GCS 13; 5/5 strength and sensation to light touch intact in the bilateral upper and lower extremities Vascular: palpable dorsalis pedis and radial pulses bilaterally Results Review 7 day results Labs & Documents Laboratory : LABORATORY 07/04/2022 8:37 EDT WBC 13.9 k/mm3 H RBC 3.75 m/mm3 L Hgb 8.8 Gm/dL L Hct 30.3 % L MCV 80.8 femtoliters MCH 23.5 pg L MCHC 29.0 g/dL L Platelet Count 292 k/mm3 RDW-SD 46.4 femtoliters MPV 10.0 femtoliters Nucleated RBC (Automated) 0.0 #/100 WBC'S Abs. NRBC 0.0 k/mm3 Abs. Neut 10.5 k/mm3 H Abs. Lymph 2.1 k/mm3 Abs. Estill 1.0 k/mm3 H Abs. Eo 0.2 k/mm3 Abs. Baso 0.1 k/mm3 Neut % 75.3 % Lymph % 15.0 % Estill % 7.1 % Eos % 1.5 % Baso % 0.4 % Imm Gran 0.7 % Abs. Imm Gran 0.1 k/mm3 INR 1.0 Protime (PT) 10.2 seconds APTT 22.2 seconds L Sodium 139 mmol/L Potassium 4.1 mmol/L Chloride 106 mmol/L Bicarbonate Level 22 mmol/L Anion Gap 11 Glucose Level 166 mg/dL H BUN 35 mg/dL H (Modified) Creatinine-Blood 1.1 mg/dL H Estimated GFR Creatinine 38 ML/MIN/1.73 M2 Calcium 8.6 mg/dL Amylase 68 units/L Lactate 3.0 mmol/L H Ethanol, Serum or Plasma NONE DETECTED mg/dL Hold Red Top SPECIMEN DISCARDED AFTER 1 WEEK 07/04/2022 8:14 EDT Blood Type O Positive Antibody Screen Negative RESULT: CT Head/Brain W/O Contrast CT Head/Brain W/O Contrast, CT Cervical Spine W/O Contrast INDICATION: Reason: Other:; Head trauma, mod-severe; Clinical Question(s): Hematoma TECHNIQUE: Noncontrast head CT using axial technique was reconstructed in axial and coronal planes.Noncontrast spiral CT through the cervical spine was formatted in 3 planes. Automatic tube modulation was used for the cervical spine and iterative dose reconstruction was used for both the head and cervical spine to optimize scan parameters and image quality. CTDIvol Body: 15.40 mGy, DLP Body: 374 mGy*cm. CTDIvol Head: 39.60 mGy, DLP Head: 672 mGy*cm. COMPARISON: None. FINDINGS: Cumulative Effects Analyst View Findings, Lines and Tubes: None. BRAIN AND EXTRA-AXIAL SPACES: No parenchymal hemorrhage, midline shift, or mass effect. Corrales-white matter differentiation is wellpreserved. No acute infarct. Negative insular ribbon and hyperdense vessel signs. Ventricles, sulci, and basilar cisterns are normal. No white matter lesions. No subarachnoid hemorrhage. No subdural or epidural collection. CALVARIUM, SKULL BASE, AND SOFT TISSUES: No basal skull fracture. There is a fracture of the left inferior orbital wall with herniation of orbital fat into the fracture defect. The fracture likely extends to the infraorbital canal laterally, though assessment is limited due to incomplete in visualization. There is a moderate amount of high attenuation blood products in the left ethmoid and left maxillary sinus. The remainder the visualized paranasal sinuses are clear. The frontal sinuses are not pneumatized. Trace fluid in the left mastoid air cells posteriorly. Normal aeration of the right mastoid air cells. Status-post bilateral lens extraction. The extracranial soft tissues are unremarkable. CERVICAL SPINE: No fracture. No acute osseous abnormalities. Normal alignment. No locked or perched facet. Intervertebral disc spaces and vertebral body heightsare preserved. OTHER BONES: No acute abnormality. CERVICAL SOFT TISSUES AND LUNG APICES: Mild atherosclerotic calcification of the carotid bulbs. Cervical soft tissues are otherwise unremarkable. Few small apical blebs. Mild scarring in the lung apices. IMPRESSION: 1. No acute intracranial hemorrhage. No acute calvarial fracture. 2. No acute cervical spine fracture. 3. Left inferior orbital wall fracture with herniation of orbital fat into the fracture defect and suspected extension of the fracture line into the inferior orbital foramen. Associated hemorrhage inthe left ethmoid and left maxillary sinus Further assessment with maxillofacial CT is recommended for definitive fracture pattern characterization RESULT: CT Cervical Spine W/O Contrast CT Head/Brain W/O Contrast, CT Cervical Spine W/O Contrast INDICATION: Reason: Other:; Head trauma, mod-severe; Clinical Question(s): Hematoma TECHNIQUE: Noncontrast head CT using axial technique was reconstructed in axial and coronal planes.Noncontrast spiral CT through the cervical spine was formatted in 3 planes. Automatic tube modulation was used for the cervical spine and iterative dose reconstruction was used for both the head and cervical spine to optimize scan parameters and image quality. CTDIvol Body: 15.40 mGy, DLP Body: 374 mGy*cm. CTDIvol Head: 39.60 mGy, DLP Head: 672 mGy*cm. COMPARISON: None. FINDINGS: Cumulative Effects Analyst View Findings, Lines and Tubes: None. BRAIN AND EXTRA-AXIAL SPACES: No parenchymal hemorrhage, midline shift, or mass effect. Corrales-white matter differentiation is wellpreserved. No acute infarct. Negative insular ribbon and hyperdense vessel signs. Ventricles, sulci, and basilar cisterns are normal. No white matter lesions. No subarachnoid hemorrhage. No subdural or epidural collection. CALVARIUM, SKULL BASE, AND SOFT TISSUES: No basal skull fracture. There is a fracture of the left inferior orbital wall with herniation of orbital fat into the fracture defect. The fracture likely extends to the infraorbital canal laterally, though assessment is limited due to incomplete in visualization. There is a moderate amount of high attenuation blood products in the left ethmoid and left maxillary sinus. The remainder the visualized paranasal sinuses are clear. The frontal sinuses are not pneumatized. Trace fluid in the left mastoid air cells posteriorly. Normal aeration of the right mastoid air cells. Status-post bilateral lens extraction. The extracranial soft tissues are unremarkable. CERVICAL SPINE: No fracture. No acute osseous abnormalities. Normal alignment. No locked or perched facet. Intervertebral disc spaces and vertebral body heightsare preserved. OTHER BONES: No acute abnormality. CERVICAL SOFT TISSUES AND LUNG APICES: Mild atherosclerotic calcification of the carotid bulbs. Cervical soft tissues are otherwise unremarkable. Few small apical blebs. Mild scarring in the lung apices. IMPRESSION: 1. No acute intracranial hemorrhage. No acute calvarial fracture. 2. No acute cervical spine fracture. 3. Left inferior orbital wall fracture with herniation of orbital fat into the fracture defect and suspected extension of the fracture line into the inferior orbital foramen. Associated hemorrhage inthe left ethmoid and left maxillary sinus Further assessment with maxillofacial CT is recommended for definitive fracture pattern characterization Findings communicated via [employer] secure message to Igor Vincent at 07/04/2022 9:24 AM. WSN: [id number] RESULT: CT Chest W/ Contrast CT Chest W/ Contrast, CT Abd/Pelvis W/ IV Contrast Only, CT Lumbar Spine W/ Contrast, CT Thoracic Spine W/ Contrast INDICATION: Reason: Other:; Chest trauma, blunt; Clinical Question(s): Other:; Aortic hilar injury TECHNIQUE: Helical CT scan of the chest, abdomen, and pelvis with IV contrast, formatted in 3 planes. The original dataset was reconstructed with a small field of view around the thoracic and lumbar spine utilizing soft tissue and bone algorithm reconstructions in 3 planes. 100 cc of Omnipaque 300 was administered intravenously. This study was performed without oral contrast. Weight-based protocol was performed using automatic exposure control. CTDIvol Body: 14.70 mGy, DLP Body: 1037 mGy*cm. COMPARISON: None. FINDINGS: Cumulative Effects Analyst view findings, lines and tubes: None. Trachea and airways: Patent without evidence of tracheal or endobronchial lesion. Lungs and pleura: Mild parenchymal scarring in lung apices. No discrete focal consolidation. No pulmonary contusion or laceration. No effusion or pneumothorax. Mediastinum and hiren: No mass or hematoma. No mediastinal or hilar lymphadenopathy. No esophageal abnormality. Heart: Heart is normal in size. No pericardial effusion. Moderate coronary artery calcification. Aorta: Moderate vascular calcification but no aneurysm. Moderate noncalcified atherosclerotic plaque of the brachiocephalic artery. Pulmonary arteries: Normal caliber. No evidence of pulmonary embolism on this study performed without angiographic technique. Chest wall soft tissues: No acute abnormality. Diaphragm: Intact. Liver: Normal in attenuation and morphology. No suspicious lesion. Gallbladder: Absent consistent with prior cholecystectomy. Bile ducts: No biliary ductal dilation. Spleen: Normal in size. Pancreas: No suspicious lesion or ductal dilatation. Adrenal glands: No nodule. Kidneys and ureters: No hydronephrosis, stone, or suspicious lesion. Bladder: No wall thickening or surrounding stranding. Reproductive organs: The uterus surgically absent. No adnexal mass. Stomach, small bowel, and large bowel: Stomach, small bowel and large bowel are normal in caliber. No evidence of bowel obstruction. No acute inflammatory process of the bowel. Appendix: Normal appendix. Peritoneum and retroperitoneum: No ascites or pneumoperitoneum. No omental or mesenteric lesions. Lymph nodes: No enlarged lymph nodes. Blood vessels: Moderate atherosclerotic vascular calcification. No aortic aneurysm. No evidence of venous thrombosis. Abdominal and pelvic wall soft tissues: No acute abnormality. Bones: No acute abnormality. The pelvic ring is intact. Both proximal femurs are intact. No traumatic malalignment of the thoracic and lumbar spine. No acute vertebral body fracture. Sternum is intact. No displaced rib fractures. There is however some very subtle cortical irregularity of the anterior left fourth through eighth ribs, which could represent nondisplaced fractures. IMPRESSION: 1. Very subtle cortical irregularity of the anterior left fourth through eighth ribs, which could represent nondisplaced fractures. No displaced rib fractures. Recommend correlation for point tenderness over the chest wall. 2. Otherwise no other CT evidence of acute traumatic injury to the chest abdomen or pelvis. WSN: [id number] RESULT: Elbow Min 3 Views Right Elbow Min 3 Views Right INDICATION / CLINICAL QUESTION: Posttraumatic elbow pain. TECHNIQUE: AP, lateral, and oblique views. COMPARISON: None. FINDINGS: There is no fracture or focal bony lesion. There is no dislocation. There is no joint effusion. There is no evidence of arthritis. IMPRESSION: 1. There is no bone or joint abnormality seen. WSN: [id number] RESULT: Hand Min 3 Views Left Hand Min 3 Views Left INDICATION / CLINICAL QUESTION: Posttraumatic left hand pain. COMPARISON: None.. TECHNIQUE: AP, oblique, and lateral views. FINDINGS: There is no fracture or focal bony lesion . The joint spaces are normal. There is no significant soft tissue abnormality. IMPRESSION: 1. No bony injury. 2. No joint abnormality.. WSN: [id number] RESULT: Knee 1 or 2 Views Left Knee 1 or 2 Views Left INDICATION: Reason: Trauma; with Pain; Clinical Question(s): Fracture TECHNIQUE: AP and lateral views.. COMPARISON: None. FINDINGS: There is no fracture or focal bony lesion. The joint spaces are normal including no degenerative change. There is no chondrocalcinosis. There is there is no joint effusion. IMPRESSION: 1. No bony injury. 2. No joint abnormality. WSN: [id number] RESULT: Knee 1 or 2 Views Right Knee 1 or 2 Views Right INDICATION: Posttraumatic knee pain. TECHNIQUE: AP and lateral views. COMPARISON: None. FINDINGS: There is no fracture or focal bony lesion. The joint spaces are normal including no degenerative change. There is no chondrocalcinosis. There is a small joint effusion. IMPRESSION: 1. No bony injury. 2. No arthritic changes. 3. Small joint effusion.. WSN: [id number] Procedure FAST Exam Normal - no fluid x 4 quadrants. Fluid noted: No free fluid appreciated, but bladder unable to be visualized. Impression and Plan 61 yoF cat1 trauma s/p fall from standing with decline in mental status. -LOC, EtOH unknown, GCS 13. Found to have left inferior orbital wall fracture. Injuries Left inferior orbital wall fracture with herniation of orbital fat into fracture defect Hemorrhage in left ethmoid and left maxillary sinus Possible nondisplaced L 4-8 rib fractures Small right knee joint effusion Interventions 1L LR 1 u pRBCs C-collar Laceration repair Consultants None Plan CT max/face for further characterization of orbital wall fracture Repair of eyebrow laceration Clear C-collar when able Tertiary exam in the AM SW consult Close monitoring of BP and mental status Discussed with Dr. Alfredo. Igor Vincent, DO Emergency Medicine, PGY-1 Pager #[phone] Admission evaluation note * Dena Hill: MODIFY, MODIFY, PERFORM, MODIFY, MODIFY, MODIFY, MODIFY, MODIFY Event Display: Admission Note Authored Date: Patient: ??ELIZABETH MERCEDES ? Age:??61 Years?Sex:??Female?:??1960?? Chief Complaint/Reason for Consultation Comes in as a category 1 trauma after he sustained ground-level fall with head strike. History of Present Illness Patient is a 61-year-old female with past medical history of essential hypertension, non-insulin dependent T2DM, rheumatoid arthritis, restless legs,??vertigo, PTSD, anxiety, asthma, GERD. [facility] as she gets her care from [facility]. ?? She was brought in today as a category 1 trauma after sustaining an??unwitnessed fall fall with head strike.?? HPI is obtained from the patient, review of EMS report and [facility]. ??Patient patient tells this author that??this morning she felt lightheaded and dizzy??and had a presyncopal event at home??before she even??went outside??for her appointment. ??Subsequently, as she was approaching the car??she felt??lightheaded/dizzy and??what sounds like had a syncopal event. ??There was a positive head strike.?Per??review of witness??(the pole truck driver who was supposed to take patient for an appointment)??the pole truck driver??was sitting??inside a car and suddenly heard a thud against the car and got out of the car and found patient on the ground, responsive and screaming.?? Hence EMS was activated.?? Aside from dizziness, that she attributes to her vertigo, she denied associated/preceding chest pain/back pain/abdominal pain/pleuritic pain.?? EMS found patient on the ground screaming that her head is hurting her; refused c-collar??but excepted a??towel??horse shoe??collar. ??Per EMS report, in route to the hospital patient had transient??episode of lethargy, however as a reapproaching??the emergency department??she perked up??and was wide-awake. ?? ED course: On arrival patient was grossly normotensive with BPs in the soft/normal range in the teens/60smmHg.?? No tachycardia/tachypnea or hypoxia.?? No fevers.?? Immediately assessed by ED and trauma team, with GCS of 13, multiple abrasions mostly on her upper extremities.?? Initial lab work was notable for mild leukocytosis with WBC count of 13.9; normocytic anemia with H/H of 8.8/30.3, unfortunately no priors are available for comparison; platelet count unremarkable; general chemistry panel was notable for possible CINTIA versus CKD with a creatinine 1.1/BUN 35 (unfortunately no prior lab work is available for comparison;, lactate was slightly elevated at 3.0.?? No electrolyte derangements.?? Urine toxicity screen was negative. High-sensitivity troponin was hemolyzed.?? Redraw is pending.??Twelve-lead EKG (personally reviewedby this author) demonstrated normal sinus at a rate of 97 bpm; SHAGGY 200; otherwise normal QRS/QTc prolongations.?? No evidence of acute ischemic findings.?? No prior studies are available for comparison. Extensive CT imaging,as well as simple radiographs, were performed including CT of the abdomen/pelvis/thoracic/lumbar/cervical spine and chest; as well as a CT of the head, and were only notable for [1] left inferior orbital wall fracture with suspected extension into the inferior orbital foramen as well, as associated hemorrhage in the left ethmoid and left maxillary sinus (with recommendation for dedicated maxillofacial CT); [2] also possible non-displaced left 4th -8th fractures. Review of Systems Constitutional symptoms: ??Negative except as documented in HPI.?? Eye symptoms:??No visual problems, no double vision. Respiratory symptoms:?No dyspnea, cough. No pleuritic pain. Cardiovascular symptoms:?+ x2 fainting episodes, preceded by dizziness. No chest pain. Gastrointestinal symptoms: ??Negative Genitourinary symptoms: ??Negative Musculoskeletal symptoms:?Back pain Neurologic symptoms:??Negative Objective Measurements?? Height: 154.9 cm (07/04/22) Weight: 80.2 kg (07/04/22) Dry Weight: 80.2 kg (07/04/22) Body Mass Index:??33.43 kg/m2??Critical (07/04/22) ?? Vital Signs?? Temperature: 97.5 DegF (07/04/22 16:16:00) Temperature Route: Oral (07/04/22 16:16:00) Pulse Rate: 87 bpm (07/04/22 16:16:00) Respiratory Rate: 17 br/min (07/04/22 16:16:00) Systolic Blood Pressure:??144 mm Hg??High (07/04/22 16:16:00) Diastolic Blood Pressure: 57 mm Hg (07/04/22 16:16:00) Blood pressure sites: Arm, left (07/04/22 16:16:00) Mean Arterial Pressure: 86 mm Hg (07/04/22 16:16:00) Pulse Pressure: 87 mm Hg (07/04/22 16:16:00) Oxygen Saturation: 98 % (07/04/22 16:16:00) Liters per Minute: 2 L/min (07/04/22 12:02:00) Mode of Delivery (Oxygen): Room air (07/04/22 16:16:00) Early Warning Score: 2 (07/04/22 16:28:00) ? Pain Scores Pain relief acceptable: Yes (14:00) ? Intake/Output?? No Data Available ? Physical Exam GEN:??CAOx3. Non-toxic. Complains of low back pain. HEENT: head is normocephalic and atraumatic. + left periorbital ecchymosis. + repaired small eyebrow laceration. CV: Regular rate and rhythm. S1 and S2 normal . No murmurs. PULM: ??BS clear to auscultation BL. BACK:??Paraspinal tenderness at the lumbar region, no deformity/step-offs ABD: Soft. Nontender. Non-distended. Normal bowel sounds present x4 quadrants NEURO: CNII-XII are intact. PERRLA, EOMIs are intact. Speech is clear/well paced. Motor: 5/5 of both UEs. 5/5 both lower extremities. UE strength equal BL and 5/5. Sensation to touch is intact throughout. SKIN: Multiple superficial abrasions on both knees, and right elbow. Skin is otherwise well perfused/dry. PSYCH: AOx3.Patient is calm and pleasant.? Assessment/Plan Patient is a 61-year-old female with past medical history of essential hypertension, non-insulin dependent T2DM, rheumatoid arthritis, restless legs,??vertigo, PTSD, anxiety, asthma, GERD. Patient was??presented as a category 1 trauma after??what is described by the patient is a syncopalepisode with collapse and subsequent trauma??resulting in left orbital wall fracture as well as possible left??rib fractures.?? Needs admission for syncope work-up as well as??tertiary??trauma monitoring. ? Diagnoses Fall ??(W19.XXXA) Fall ??(W19.XXXA) 1. ??Orbital fracture ??(S02.85XA) 2. ??Back pain ??(M54.9) ?? Dizziness, presyncope x2, with ground-level fall and trauma Patient describes first presyncopal episode at home prior to going outside, second event was as lightheadedness with resulting syncopal event, and subsequent trauma Possible contributing factors could be polypharmacy as she was on multiple antipsychotic medications with sedating potential.?? She also has history of vertigo and in fact takes scheduled doses of meclizine; she did take her morning meclizine.?? Twelve-lead EKG and first high-sensitivity troponin are reassuring. -Admit to medicine floor, with telemetry monitoring -c-spine was cleared by surgery ??? Serial neuro rechecks q4hrs ???1st HsTrop 10. ??Trend troponins as per hospital protocol x2 times ??? will obtain orthostatic vitals, when clinically appropriate -if nothing noted on telemetry/cardiac work-up, consider psychiatry evaluation to review of her psych medications ? Traumatic left inferior orbital wall fracture, hemorrhage of the left ethmoid and left maxillary sinus Possible nondisplaced left 4???8 rib fractures ??? Very much appreciate recommendations from trauma and maxillofacial trauma surgery consultants. -given augmentin allergy, surgery recommended 10-day course with Cefpodoxime and Flagyl (ordered) -Patient should follow-up with Dr. Cuevas of [facility] in 1 week -Patient should follow-up with ophthalmology following her discharge -PRN Tylenol/oxycodone/Dilaudid and lidocaine patches???PT evaluation ??? Case management, requested -repeat CXR in AM ?? Mild leukocytosis??WBC count at 13.9 Mild lactate at 3.0 ?Suspect secondary to above,??stress related.?? Imaging??not concerning for infectious process.?? Symptoms are also reassuring. ??We will continue to closely monitor -Patient received 1 L??IV fluid bolus from the ED.?? Will continue to encourage??p.o. food/fluid intake ? will trend lactate until resolution ??? will repeat CBC in the morning ? Chronic and Stable Issues: Essential hypertension -Tonight will hold lisinopril, please resume when clinically appropriate ? Rheumatoid arthritis -Resume methotrexate, methylprednisolone, and folate supplementation -Continue gabapentin ? History of vertigo -Continue scheduled meclizine 25 mg q6hrs ?? PTSD Anxiety ?Bipolar disease: -Continue aripiprazole 15 mg, carbamazepine 400 mg BID, prazosin 4 mg QD, risperidone that patient takes 3 mg in the morning and 6 mg at nighttime, ?? Restless legs ??? Resume Requip ?? Migraine headaches: No acute issues ??? On as needed sumatriptan, will hold for now -Continue topiramate 50 mg BID ?? Asthma: Not in exacerbation -Continue as needed albuterol for wheezing/dyspnea -Breo Ellipta as a formulary substitute for Incruse Ellipta ?? Hysterectomy with oophorectomy ??? Continue estradiol 1 mg QD ?? T2DM -On metformin, with hold. ???POC TID and QHS -SSI w/ lispro -Hypoglycemia protocol in place ?? GERD: Continue pantoprazole ? Quality Measures: DVT prophylaxis: Pneumatic compression boots Diet: Lactose -restricted diet Code Status: FULL CODE-as discussed with??patient ? Histories Allergies Allergies ?(Active and Proposed Allergies Only) penicillin? (Severity: Unknown severity, Onset: Unknown) ?Reactions: hives Augmentin? (Severity: Unknown severity, Onset: Unknown) ?Reactions: hives Bactrim? (Severity: Unknown severity, Onset: Unknown) ?Reactions: hives morphine? (Severity: Unknown severity, Onset: Unknown) ?Reactions: hives ?Comments: hives ? Past Medical History/Problem List Active Problems??(1) Obese class I ? Past Surgical History Hiatal hernia repair cholecystectomy eye surgery ? Social History Former smoker, quit 11 years ago Quit??any alcohol 11 years ago Denied recreational drug use ? Psychosocial History ??Lives at home with VNA and PCT services ?? Family History Mother: when patient was 7 years old Father: in 2018, cause??unknown Sister: alive, rheumatoid arthritis Medications Home Medications Albuterol (Ventolin HFA 108 mcg/inh inhalation aerosol with adapter)?INHALE 2 PUFFS BY MOUTH EVERY 4 HOURS NEEDED Aripiprazole (ARIPiprazole 15 mg oral tablet)?15?Milligram?1?tablet?By Mouth?Daily Ascorbic Acid (Vitamin C 500 mg oral tablet)?1?tab(s)?500?Milligram?By Mouth?Daily Aspirin (Aspirin Low Dose 81 mg oral delayed release tablet)?1?tab(s)?81?Milligram?By Mouth?Daily Capsaicin Topical (capsaicin 0.075% topical cream)?1?rebecca?Topically?2 times a day Carbamazepine (carBAMazepine 400 mg oral tablet, extended release)?400?Milligram?1?tablet?By Mouth?2 times a day Cefpodoxime (cefpodoxime 200 mg oral tablet)?1?tab(s)?200?Milligram?By Mouth?Every 12 hours?for 10?Days Cholecalciferol (Vitamin D3 1000 intl units oral tablet)?1?tab(s)?25?Microgram?By Mouth?Daily Estradiol (estradiol 1 mg oral tablet)?1?Milligram?1?tablet?By Mouth?Daily Fexofenadine (fexofenadine 180 mg oral tablet)?1?tab(s)?180?Milligram?By Mouth?Daily Fluticasone-Salmeterol (fluticasone-salmeterol 500 mcg-50 mcg inhalation powder)?1?inhalation?Inhalation?2 times a day?rinse mouth and throat after use Folic Acid (folic acid 1 mg oral tablet)?1?Milligram?1?tablet?By Mouth?Daily Gabapentin (gabapentin 800 mg oral tablet)?1?tab(s)?800?Milligram?By Mouth?3 times a day Lisinopril (lisinopril 10 mg oral tablet)?10?Milligram?1?tablet?By Mouth?Daily Meclizine (meclizine 25 mg oral tablet)?1?tab(s)?25?Milligram?By Mouth?Every 6 hours Melatonin (Melatonin 3 mg oral tablet)?1?tab(s)?3?Milligram?By Mouth?Daily at bedtime?as needed?for insomnia Meloxicam (meloxicam 7.5 mg oral tablet)?1?tab(s)?7.5?Milligram?By Mouth?Daily Metformin (metFORMIN 500 mg oral tablet)?1?tab(s)?500?Milligram?By Mouth?Daily?with meals Methotrexate (methotrexate 2.5 mg oral tablet)?1?tab(s)?2.5?Milligram?By Mouth?Every week MethylPREDNISolone (MethylPREDNISolone Dose Pack 4 mg oral tablet)?1?pack/packet?By Mouth?Daily?for 6?Days?as directed on package labeling Montelukast (montelukast 10 mg oral tablet)?10?Milligram?1?tablet?By Mouth?Daily Multivitamin (multivitamin Vitamin B Complex oral capsule)?1?capsule?By Mouth?Daily Pantoprazole (pantoprazole 40 mg oral delayed release tablet)?1?tab(s)?40?Milligram?By Mouth?Daily Prazosin (prazosin 2 mg oral capsule)?4?Milligram?By Mouth?Daily at bedtime Pseudoephedrine (SudoGest 30 mg oral tablet)?1?tab(s)?30?Milligram?By Mouth?Every6 hours?as needed?as needed for cold symptoms Risperidone (risperiDONE 3 mg oral tablet)?See Instructions?1 tablet By Mouth Daily Ropinirole (rOPINIRole 0.5 mg oral tablet)?See Instructions?1 tablet By Mouth 3 times a day Sumatriptan (SUMAtriptan 100 mg oral tablet)?1?tab(s)?100?Milligram?By Mouth?Once?as needed?for migraine headache Topiramate (topiramate 50 mg oral tablet)?1?tab(s)?50?Milligram?By Mouth?2 times a day umeclidinium (Incruse Ellipta 62.5 mcg/inh inhalation powder)?1?Each?Inhalation?Every 24 hours?doses should be taken at least 24 hours apart ? Results Recent Labs BLOOD BANK Blood Type O Positive ()?? 07/04/2022 08:14 Antibody Screen Negative ()?? 07/04/2022 08:14 RBC Unit ID [id number] ()?? 07/04/2022 10:32 RBC Available PI ()?? 07/04/2022 10:32 ?? BLOOD COUNT & DIFF WBC 13.9 k/mm3 (High)?? 07/04/2022 08:37 RBC 3.75 m/mm3 (Low)?? 07/04/2022 08:37 Hgb 8.8 Gm/dL (Low)?? 07/04/2022 08:37 Hct 30.3 % (Low)?? 07/04/2022 08:37 MCV 80.8 femtoliters ()?? 07/04/2022 08:37 MCH 23.5 pg (Low)?? 07/04/2022 08:37 MCHC 29.0 g/dL (Low)?? 07/04/2022 08:37 Platelet Count 292 k/mm3 ()?? 07/04/2022 08:37 RDW-SD 46.4 femtoliters ()?? 07/04/2022 08:37 MPV 10.0 femtoliters ()?? 07/04/2022 08:37 Nucleated RBC (Automated) 0.0 #/100 WBC'S ()?? 07/04/2022 08:37 Abs. NRBC 0.0 k/mm3 ()?? 07/04/2022 08:37 Abs. Neut 10.5 k/mm3 (High)?? 07/04/2022 08:37 Abs. Lymph 2.1 k/mm3 ()?? 07/04/2022 08:37 Abs. Estill 1.0 k/mm3 (High)?? 07/04/2022 08:37 Abs. Eo 0.2 k/mm3 ()?? 07/04/2022 08:37 Abs. Baso 0.1 k/mm3 ()?? 07/04/2022 08:37 Neut % 75.3 % ()?? 07/04/2022 08:37 Lymph % 15.0 % ()?? 07/04/2022 08:37 Estill % 7.1 % ()?? 07/04/2022 08:37 Eos % 1.5 % ()?? 07/04/2022 08:37 Baso % 0.4 % ()?? 07/04/2022 08:37 Imm Gran 0.7 % ()?? 07/04/2022 08:37 Abs. Imm Gran 0.1 k/mm3 ()?? 07/04/2022 08:37 ?? CARDIAC High Sensitivity Troponin (HSTnT) HEMOLYZED ng/L ()?? 07/04/2022 13:38 ?? CHEM GENERAL Sodium 139 mmol/L ()?? 07/04/2022 08:37 Potassium 4.1 mmol/L ()?? 07/04/2022 08:37 Chloride 106 mmol/L ()?? 07/04/2022 08:37 Bicarbonate Level 22 mmol/L ()?? 07/04/2022 08:37 Anion Gap 11 ()?? 07/04/2022 08:37 Glucose Level 166 mg/dL (High)?? 07/04/2022 08:37 BUN 35 mg/dL (High)?? 07/04/2022 08:37 Creatinine-Blood 1.1 mg/dL (High)?? 07/04/2022 08:37 Estimated GFR Creatinine 38 ML/MIN/1.73 M2 ()?? 07/04/2022 08:37 Calcium 8.6 mg/dL ()?? 07/04/2022 08:37 Amylase 68 units/L ()?? 07/04/2022 08:37 Lactate 1.6 mmol/L ()?? 07/04/2022 15:34 ?? COAG INR 1.0 ()?? 07/04/2022 08:37 Protime (PT) 10.2 seconds ()?? 07/04/2022 08:37 APTT 22.2 seconds (Low)?? 07/04/2022 08:37 ?? HEME OTHER Hold Lavender Top SPECIMEN DISCARDED AFTER 24 HOURS. ()?? 07/04/2022 13:38 ?? MISC. CHEMISTRY Hold Red Top SPECIMEN DISCARDED AFTER 1 WEEK ()?? 07/04/2022 08:37 ?? TOXICOLOGY/TDM Ethanol, Serum or Plasma NONE DETECTED mg/dL ()?? 07/04/2022 08:37 Barbiturate Screen, Urine NONE DETECTED ()?? 07/04/2022 12:45 Cannabinoid Screen, Urine NONE DETECTED ()?? 07/04/2022 12:45 Cocaine Metabolite Screen, Urine NONE DETECTED ()?? 07/04/2022 12:45 Benzodiazepine Screen, Urine NONE DETECTED ()?? 07/04/2022 12:45 Amphetamine Screen, Urine NONE DETECTED ()?? 07/04/2022 12:45 Opiate Screen, Urine NONE DETECTED ()?? 07/04/2022 12:45 ?? URINE OTHER Est Creatinine Clearance 41.52 mL/min ()?? 07/04/2022 15:12 ?? VIROLOGY COVID-19 by RT-PCR NEGATIVE ()?? 07/04/2022 08:38 ? Imaging(s) ?CT Head/Brain W/O Contrast ?? 07/04/2022 09:06??by Luis Fair MD ?IMPRESSION: ?? 1. No acute intracranial hemorrhage. No acute calvarial fracture. 2. No acute cervical spine fracture. 3. Left inferior orbital wall fracture with herniation of orbital fat into the fracture defect and suspected extension of the fracture line into the inferior orbital foramen. Associated hemorrhage inthe left ethmoid and left maxillary sinus Further assessment with maxillofacial CT is recommended for definitive fracture pattern characterization ?CT Chest W/ Contrast ?? 07/04/2022 09:11??by Luis Fiar MD ?IMPRESSION: ?? 1. Very subtle cortical irregularity of the anterior left fourth through eighth ribs, which could represent nondisplaced fractures. No displaced rib fractures. Recommend correlation for point tenderness over the chest wall. 2. Otherwise no other CT evidence of acute traumatic injury to the chest abdomen or pelvis. ?CT Cervical Spine W/O Contrast ?? 07/04/2022 09:06??by Luis Fair MD ?IMPRESSION: ?? 1. No acute intracranial hemorrhage. No acute calvarial fracture. 2. No acute cervical spine fracture. 3. Left inferior orbital wall fracture with herniation of orbital fat into the fracture defect and suspected extension of the fracture line into the inferior orbital foramen. Associated hemorrhage inthe left ethmoid and left maxillary sinus Further assessment with maxillofacial CT is recommended for definitive fracture pattern characterization ?CT Thoracic Spine W/ Contrast ?? 07/04/2022 09:11??by Luis Fair MD ?IMPRESSION: ?? 1. Very subtle cortical irregularity of the anterior left fourth through eighth ribs, which could represent nondisplaced fractures. No displaced rib fractures. Recommend correlation for point tenderness over the chest wall. 2. Otherwise no other CT evidence of acute traumatic injury to the chest abdomen or pelvis. ?CT Lumbar Spine W/ Contrast ?? 07/04/2022 09:11??by Luis Fair MD ?IMPRESSION: ?? 1. Very subtle cortical irregularity of the anterior left fourth through eighth ribs, which could represent nondisplaced fractures. No displaced rib fractures. Recommend correlation for point tenderness over the chest wall. 2. Otherwise no other CT evidence of acute traumatic injury to the chest abdomen or pelvis. ?Chest Portable ?? 07/04/2022 08:31??by Paul Meza MD ?IMPRESSION: ?? No evidence of acute abnormality. ?Pelvis 1 or 2 Views ?? 07/04/2022 08:31??by Paul Meza MD ? IMPRESSION: ?? No evidence of acute osseous abnormality. ?Elbow Min 3 Views Right ?? 07/04/2022 09:28??by Micheal Santos MD ?IMPRESSION: 1. There is no bone or joint abnormality seen. ?Hand Min 3 Views Left ?? 07/04/2022 09:28??by Micheal Santos MD ?IMPRESSION: 1. No bony injury. 2. No joint abnormality.. ?Knee 1 or 2 Views Left ?? 07/04/2022 09:28??by Micheal Santos MD ?IMPRESSION: 1. No bony injury. 2. No joint abnormality. ?Knee 1 or 2 Views Right ?? 07/04/2022 09:28??by Micheal Santos MD ? IMPRESSION: 1. No bony injury. 2. No arthritic changes. 3. Small joint effusion.. ?CT Abd/Pelvis W/ IV Contrast Only ?? 07/04/2022 09:11??by Luis Fair MD ?IMPRESSION: ?? 1. Very subtle cortical irregularity of the anterior left fourth through eighth ribs, which could represent nondisplaced fractures. No displaced rib fractures. Recommend correlation for point tenderness over the chest wall. 2. Otherwise no other CT evidence of acute traumatic injury to the chest abdomen or pelvis ? Cardiology * Event Display: Cardiac Rhythm Strips Authored Date: Hospital Progress note * Cami Wu MD: MODIFY, SIGN, VERIFY, MODIFY, SIGN, MODIFY, SIGN, MODIFY, PERFORM Event Display: Progress Note Hospital Authored Date: Patient: ELIZABETH MERCEDES Age: 61 years Sex: Female : 1960 Associated Diagnoses: None Author: Cami Wu MD Subjective Patient underwent CT maxface overnight which showed a comminuted moderately displaced fracture of the inferior orbital wall with herniation of orbital fat through the defect without entrapment of theinferior rectus muscle. Fracture lines seen to extend into the inferior orbital foramen laterally/medially to the inferior portions of the left lamina papyracea. Based on these results, OMFS was consulted and recommended Augmentin 10 days (Ordered Cefpodoxime and Flagyl per pharmacy recommendation in setting of Augmentin allergy), sinus precautions, outpatient follow up 1 wk and ophthalmology follow up outpatient. Patient seen and examined on rounds this AM. Denies having any F/C/N/V. No dyspnea or CP/palpitations. No changes in vision. Objective Vitals: Temperature 98.3 (07:27) Systolic Blood Pressure 149 (07:27) Diastolic Blood Pressure 56 (07:27) Pulse 81 (07:27) SpO2 98 (07:27) Respiratory Rate 20 (07:27) Tertiary Exam: General: no acute distress, alert, awake Head: normocephalic, no hematomas, no deformities Face: 1cm laceration to the left eyebrow s/p repair. no ecchymosis, no abrasions. Eyes: pupils are 3 mm, equal, round, and reactive; extraocular movement intact Ears: no hemotympanum, no blood in external auditory canal, no abrasions, no miranda's sign Nose: no epistaxis, no deformity Mandible: no deformity, no malocclusion Neck: no hematoma, no ecchymosis, no wounds, trachea midline Chest: symmetric, no deformity, midsternal ttp; left anterior chest wall ttp; clavicles are nontender to palpation, no crepitus appreciated; IS 500-750 Heart: regular rate and rhythm Lungs: clear to auscultation bilaterally Abdomen: soft, nondistended, nontender, no wounds, no ecchymosis, no hematoma Pelvis: stable, nontender Back: no ecchymosis, no abrasions, no hematoma, no wounds Cervical spine: no tenderness. no midline deformities or stepoffs Thoracic spine: no tenderness. no midline deformities or stepoffs Lumbar spine: no tenderness. no midline deformities or stepoffs Extremities: abrasion on inside of left arm, abrasion of right elbow, abrasion on left and right knee. No long bone deformities, no wounds, ecchymosis over bilateral knees without ttp, no hematomas, full active range of motion Neurologic: GCS 15; 5/5 strength and sensation to light touch intact in the bilateral upper and lower extremities Vascular: palpable dorsalis pedis and radial pulses bilaterally Results Review BLOOD BANK Blood Type O Positive () 07/04/2022 08:14 Antibody Screen Negative () 07/04/2022 08:14 RBC Unit ID [id number] () 07/04/2022 10:32 RBC Available PT () 07/04/2022 10:32 BLOOD COUNT & DIFF WBC 13.4 k/mm3 (High) 07/05/2022 01:52 RBC 3.76 m/mm3 (Low) 07/05/2022 01:52 Hgb 9.1 Gm/dL (Low) 07/05/2022 01:52 Hct 30.8 % (Low) 07/05/2022 01:52 MCV 81.9 femtoliters () 07/05/2022 01:52 MCH 24.2 pg (Low) 07/05/2022 01:52 MCHC 29.5 g/dL (Low) 07/05/2022 01:52 Platelet Count 299 k/mm3 () 07/05/2022 01:52 RDW-SD 47.8 femtoliters (High) 07/05/2022 01:52 MPV 9.8 femtoliters () 07/05/2022 01:52 Nucleated RBC (Automated) 0.0 #/100 WBC'S () 07/05/2022 01:52 Abs. NRBC 0.0 k/mm3 () 07/05/2022 01:52 Abs. Neut 7.9 k/mm3 (High) 07/05/2022 01:52 Abs. Lymph 4.0 k/mm3 (High) 07/05/2022 01:52 Abs. Estill 1.1 k/mm3 (High) 07/05/2022 01:52 Abs. Eo 0.3 k/mm3 () 07/05/2022 01:52 Abs. Baso 0.1 k/mm3 () 07/05/2022 01:52 Neut % 59.1 % () 07/05/2022 01:52 Lymph % 29.4 % () 07/05/2022 01:52 Estill % 7.9 % () 07/05/2022 01:52 Eos % 2.4 % () 07/05/2022 01:52 Baso % 0.5 % () 07/05/2022 01:52 Imm Gran 0.7 % () 07/05/2022 01:52 Abs. Imm Gran 0.1 k/mm3 () 07/05/2022 01:52 CARDIAC High Sensitivity Troponin (HSTnT) 9 ng/L () 07/04/2022 20:26 CHEM GENERAL Sodium 142 mmol/L () 07/05/2022 01:52 Potassium 4.9 mmol/L () 07/05/2022 01:52 Chloride 108 mmol/L (High) 07/05/2022 01:52 Bicarbonate Level 25 mmol/L () 07/05/2022 01:52 Anion Gap 9 () 07/05/2022 01:52 Glucose Level 125 mg/dL (High) 07/05/2022 01:52 BUN 21 mg/dL (High) 07/05/2022 01:52 Creatinine-Blood 0.8 mg/dL () 07/05/2022 01:52 Estimated GFR Creatinine 84 ML/MIN/1.73 M2 () 07/05/2022 01:52 Calcium 8.6 mg/dL () 07/05/2022 01:52 Magnesium 2.0 mg/dL () 07/05/2022 01:52 Amylase 68 units/L () 07/04/2022 08:37 Lactate 1.6 mmol/L () 07/04/2022 15:34 COAG INR 1.0 () 07/04/2022 08:37 Protime (PT) 10.2 seconds () 07/04/2022 08:37 APTT 22.2 seconds (Low) 07/04/2022 08:37 HEME OTHER Hold Lavender Top SPECIMEN DISCARDED AFTER 24 HOURS. () 07/04/2022 13:38 MISC. CHEMISTRY Hold Red Top SPECIMEN DISCARDED AFTER 1 WEEK () 07/04/2022 08:37 TOXICOLOGY/TDM Ethanol, Serum or Plasma NONE DETECTED mg/dL () 07/04/2022 08:37 Barbiturate Screen, Urine NONE DETECTED () 07/04/2022 12:45 Cannabinoid Screen, Urine NONE DETECTED () 07/04/2022 12:45 Cocaine Metabolite Screen, Urine NONE DETECTED () 07/04/2022 12:45 Benzodiazepine Screen, Urine NONE DETECTED () 07/04/2022 12:45 Amphetamine Screen, Urine NONE DETECTED () 07/04/2022 12:45 Opiate Screen, Urine NONE DETECTED () 07/04/2022 12:45 URINE OTHER Est Creatinine Clearance 57.09 mL/min () 07/05/2022 02:50 VIROLOGY COVID-19 by RT-PCR NEGATIVE () 07/04/2022 08:38 Impression and Plan 61 yoF cat1 trauma s/p fall from standing with decline in mental status. -LOC, EtOH unknown, GCS 13. Found to have left inferior orbital wall fracture. CT maxface obtained which showed a comminuted moderately displaced fracture of the inferior orbital wall with herniation of orbital fat through thedefect without entrapment of the inferior rectus muscle. Fracture lines seen to extend into the inferior orbital foramen laterally/medially to the inferior portions of the left lamina papyracea. Based on these results, OMFS was consulted and recommended Augmentin 10 days (Ordered Cefpodoxime and Flagyl per pharmacy recommendation in setting of Augmentin allergy), sinus precautions, outpatient follow up 1 wk and ophthalmology follow up outpatient. Tertiary Exam performed on 07/05 with evidence of left chin ecchymosis, mid sternal ttp, and L anterior chest wall ttp. However, all imaging negative for injuries. At this time, we recommend rib fracture protocol with multimodal pain control, IS, CPT/duonebs. AM CXR negative for acute abnormality. Injuries Left inferior orbital wall fracture with herniation of orbital fat into fracture defect Hemorrhage in left ethmoid and left maxillary sinus Possible nondisplaced L 4-8 rib fractures Small right knee joint effusion Interventions 1L LR 1 u pRBCs C-collar Laceration repair Consultants None Plan -no trauma surgical intervention -rib fracture protocol -CPT/duonebs -multimodal pain control -IS -f/u OMFS recommendations: Augmentin 10 days (Ordered Cefpodoxime and Flagyl per pharmacy recommendation in setting of Augmentin allergy) Sinus precautions Outpatient follow up [address] Cuevas when swelling has come down. Ophthalmology outpatient follow up -dispo: follow up outpatient in trauma surgery clinic in 2 wks upon discharge; will need 2-view AP/lat CXR prior to appointment. Will arrange. -please notify trauma team when patient will be discharged -rest of care per primary team Will sign off at this time. Discussed with Dr. Alfredo. [place] [phone] with any questions * Ermias MAHARAJ, Carline Rivera: VERIFY, PERFORM, SIGN Event Display: Progress Note Hospital Authored Date: Patient: ELIZABETH MERCEDES Age: 61 years Sex: Female : 1960 Associated Diagnoses: None Author: Ermias MAHARAJ, Carline Rivera Findings Evaluation pt alert and oriented x3. meclizine given for dizziness as ordered. pain meds given as well for allover generalized pain s/p fall. purewick applied. see flowsheets for full assessments. bed alarm onfor safety. stable WCTM. * Theodore MAHARAJ, Julia: VERIFY, PERFORM, SIGN Event Display: Progress Note Hospital Authored Date: Patient: ELIZABETH MERCEDES Age: 61 years Sex: Female : 1960 Associated Diagnoses: None Author: Julia Jaimes RN Findings Problem Related to Alteration in Musculoskeletal : Alteration in Musculoskeletal Func/new 07/04/2022 18:59 EDT Alteration in Musculoskeletal Related to Fracture, Other: s/p fall Goals & Outcomes, Musculoskeletal Affected extremity will maintain color/motion/sensation, Pt able to perform ADL's to best of ability, Pt will ambulate safely with assistive device, Pt will be free from complications of immobility, Pt will demonstrate ability to participate in ADL's, Pt will report acceptable level of comfort/pain relief Interventions, Musculoskeletal Monitor patients ambulation status, monitor Color/Motion/Sensation, Assist with repositioning BH Goals/Interventions, Musculoskeletal Yes Musculoskeletal, Problem Start 07/04/2022 18:59 Reviewed Plan with, Musculoskeletal Patient Patient Progression, Musculoskeletal Plan Initiation . Nursing Data Cardiac Data. : Cardiac Data. 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 Gastrointestinal Data. : Gastrointestinal Data. 07/04/2022 14:00 EDT Gastrointestinal Symptoms None Abdomen Soft Bowel Sounds LUQ Present Bowel Sounds RUQ Present Bowel Sounds LLQ Present Bowel Sounds RLQ Present Last Bowel Movement 07/03/2022 GI WNL except Normal Bowel Pattern Every other day . Genitourinary Data. : Genitourinary Data. 07/04/2022 14:00 EDT WNL . HEENT Data. : HEENT Assessment 07/04/2022 14:00 EDT HEENT, Adult WNL except Eye Location, Adult Eye, left Eye Symptoms, Adult Pain, Periorbital edema HEENT Comment, Adult Pt has L fractured periorbital . Integumentary Data. : Integumentary Data. 07/04/2022 14:00 EDT Skin Abnormality Fragile Skin Color Normal for ethnicity, Pale Skin Integrity Intact Mucous Membrane Color [place] Mucous Membrane Description Moist Sensory Perception No impairment Sensory Perception No impairment Moisture Occasionally moist Activity Walks occasionally Activity Walks occasionally Mobility Slightly limited Mobility Slightly limited Nutrition Adequate Friction and Shear Potential problem Jaiden Score 18 Nursing Care Plan initiated/updated Yes Integumentary WNL except . Musculoskeletal Data. : Musculoskeletal Data. 07/04/2022 14:00 EDT Musculoskeletal Symptoms Weakness Musculoskeletal WNL except . Neurological Data. : Neurological Data. 07/04/2022 18:00 EDT Neurological Assessment Status Unchanged from recorder's assessment 07/04/2022 16:00 EDT Neurological Assessment Status Unchanged from recorder's assessment 07/04/2022 14:00 EDT Neurological Symptoms Vertigo (feeling of spinning), Weakness or loss of musclestrength, Other: denies vertigo at this time but patient reported taking medication for her vertigo Level of Consciousness Full Consciousness Orientated to person, place, time Person, Place, Time, Event Facial Symmetry Intact Characteristics of Speech Clear and normal Swallowing Difficulty None Pupil description, left Regular Pupil description, right Regular Strength LUE 5-Active movement against gravity & full resistance Strength RUE 5-Active movement against gravity & full resistance Strength LLE 5-Active movement against gravity & full resistance Strength RLE 5-Active movement against gravity & full resistance Tone LUE Normal Tone RUE Normal Tone LLE Normal Tone RLE Normal Sensation LUE Intact Sensation RUE Intact Sensation LLE Intact Sensation RLE Intact Movement LUE To command Movement RUE To command Movement LLE To command Movement RLE To command Gait Steady Pain Location Abdomen, left lower Quality Aching Pain Interventions Heat, PRN medication, Repositioning, Rest Pain relief acceptable Yes Neuro WNL except Eyes and Movements Conjugate gaze: Move in same direction at same speed Swallow - Neuro Normal . Vital Signs : VITAL SIGNS SECTION 07/04/2022 17:07 EDT Pulse Rate, Sitting 88 bpm Systolic Blood Pressure, Sitting 142 mm Hg Diastolic Blood Pressure, Sitting 98 mm Hg Pulse Rate, Standing 94 bpm Systolic Blood Pressure, Standing 122 mm Hg Diastolic Blood Pressure, Standing 66 mm Hg 07/04/2022 16:16 EDT Temperature 97.5 DegF Temperature Route Oral Pulse Rate 87 bpm Respiratory Rate 17 br/min Systolic Blood Pressure 144 mm Hg H Diastolic Blood Pressure 57 mm Hg Blood pressure sites Arm, left Mean Arterial Pressure 86 mm Hg Pulse Pressure 87 mm Hg Oxygen Saturation 98 % Mode of Delivery (Oxygen) Room air 07/04/2022 13:18 EDT Temperature 98.4 DegF Temperature Route Oral Pulse Rate 85 bpm Respiratory Rate 19 br/min Systolic Blood Pressure 117 mm Hg Diastolic Blood Pressure 63 mm Hg Blood pressure sites Arm, left Mean Arterial Pressure 81 mm Hg Pulse Pressure 54 mm Hg . Evaluation Pt arrived to unit at approximately 1300, she is a&o x4, moaning in 11/21 pain, mostly to L side. Utilized PRNs. Up to bedside commode. SR on tele, VSS on RA. Stated she has vertigo. Orthos done.Family/friends updated. Trending labs. Neuros intact. Able to communicate needs. wctm. See [facility] for full assessment. Note * Kalia Crocker MD: PERFORM Event Display: Discharge/Transfer Note Hospital Authored Date: [id number] Patient: ??ELIZABETH MERCEDES ? Age:??61 Years?Sex:??Female?:??1960?? Patient Information Discharge Location: [facility] Primary Care Physician: Steve RUBALCAVA, Clare Busby Admit Date/Time: 07/04/22 08:11 Discharge Disposition Discharge Disposition: ?? Discharge Diagnosis Orbital fracture (S02.85XA) Back pain (M54.9) Fall (W19.XXXA) ?? _ Discharge Medications Albuterol (Ventolin HFA 108 mcg/inh inhalation aerosol with adapter)?INHALE 2 PUFFS BY MOUTH EVERY 4 HOURS NEEDED Aripiprazole (ARIPiprazole 15 mg oral tablet)?15?Milligram?1?tablet?By Mouth?Daily Ascorbic Acid (Vitamin C 500 mg oral tablet)?1?tab(s)?500?Milligram?By Mouth?Daily Aspirin (Aspirin Low Dose 81 mg oral delayed release tablet)?1?tab(s)?81?Milligram?By Mouth?Daily Carbamazepine (carBAMazepine 400 mg oral tablet, extended release)?400?Milligram?1?tablet?By Mouth?2 times a day Cefpodoxime (cefpodoxime 200 mg oral tablet)?1?tab(s)?200?Milligram?By Mouth?Every 12 hours?for 10?Days Cholecalciferol (Vitamin D3 1000 intl units oral tablet)?1?tab(s)?25?Microgram?By Mouth?Daily Estradiol (estradiol 1 mg oral tablet)?1?Milligram?1?tablet?By Mouth?Daily Fexofenadine (fexofenadine 180 mg oral tablet)?1?tab(s)?180?Milligram?By Mouth?Daily Fluticasone-Salmeterol (fluticasone-salmeterol 500 mcg-50 mcg inhalation powder)?1?inhalation?Inhalation?2 times a day?rinse mouth and throat after use Folic Acid (folic acid 1 mg oral tablet)?1?Milligram?1?tablet?By Mouth?Daily Gabapentin (gabapentin 800 mg oral tablet)?1?tab(s)?800?Milligram?By Mouth?3 times a day Lisinopril (lisinopril 10 mg oral tablet)?10?Milligram?1?tablet?By Mouth?Daily Meclizine (meclizine 25 mg oral tablet)?1?tab(s)?25?Milligram?By Mouth?Every 6 hours Metformin (metFORMIN 500 mg oral tablet)?1?tab(s)?500?Milligram?By Mouth?Daily?with meals Methotrexate (methotrexate 2.5 mg oral tablet)?1?tab(s)?2.5?Milligram?By Mouth?Every week MethylPREDNISolone (MethylPREDNISolone Dose Pack 4 mg oral tablet)?1?pack/packet?By Mouth?Daily?for 6?Days?as directed on package labeling Metronidazole (metroNIDAZOLE 250 mg oral tablet)?1?tab(s)?250?Milligram?By Mouth?Every 8 hours?for 10?Days Montelukast (montelukast 10 mg oral tablet)?10?Milligram?1?tablet?By Mouth?Daily Multivitamin (multivitamin Vitamin B Complex oral capsule)?1?capsule?By Mouth?Daily Oxycodone (oxyCODONE 5 mg oral tablet)?5?Milligram?1?tablet?By Mouth?Every 6 hours?as needed?for 3?Days?Pain , Moderate Pantoprazole (pantoprazole 40 mg oral delayed release tablet)?1?tab(s)?40?Milligram?By Mouth?Daily Prazosin (prazosin 2 mg oral capsule)?4?Milligram?By Mouth?Daily at bedtime Pseudoephedrine (SudoGest 30 mg oral tablet)?1?tab(s)?30?Milligram?By Mouth?Every6 hours?as needed?as needed for cold symptoms Risperidone (risperiDONE 3 mg oral tablet)?See Instructions?1 tablet By Mouth Daily Ropinirole (rOPINIRole 0.5 mg oral tablet)?See Instructions?1 tablet By Mouth 3 times a day Sumatriptan (SUMAtriptan 100 mg oral tablet)?1?tab(s)?100?Milligram?By Mouth?Once?as needed?for migraine headache Topiramate (topiramate 50 mg oral tablet)?1?tab(s)?50?Milligram?By Mouth?2 times a day umeclidinium (Incruse Ellipta 62.5 mcg/inh inhalation powder)?1?Each?Inhalation?Every 24 hours?doses should be taken at least 24 hours apart ? Objective Assessment and Plan Orbital fracture (S02.85XA):??61-year-old female with past medical history of essential hypertension, non-insulin dependent T2DM, rheumatoid arthritis, restless legs, vertigo, PTSD, anxiety, asthma, GERD. ??Patient was presented as a category 1 trauma after??fall patient reported she was feeling dizzy??she has history of vertigo and lost her balance??and??hit the ground. ?? Dizziness,??history of??vertigo,??presyncope??with ground-level fall and trauma ??Patient describes first presyncopal episode at home prior to going outside, second event was as lightheadedness with resulting syncopal event, and subsequent trauma Reports she has??previous vertiginous spells she denies any loss of consciousness She denies using??any substances and has not been drinking for more than 20 years Treatment done by the trauma team was unremarkable ??-c-spine was cleared by surgery ?EKG without any acute ST changes lab work was unremarkable ? Traumatic left inferior orbital wall fracture, hemorrhage of the left ethmoid and left maxillary sinus ??Possible nondisplaced left 4???8 rib fractures recommendations from trauma and maxillofacial trauma surgery consultants. ??-given augmentin allergy, surgery recommended 10-day course with Cefpodoxime and Flagyl (ordered) ??-Patient should follow-up with Dr. Cuevas of [facility] in 1 week ??-Patient should follow-up with ophthalmology following her discharge ??-Continue with Tylenol and oxycodone as needed for pain Mild leukocytosis WBC count at 13.9 ??Mild lactate at 3.0 ??? Suspect secondary to above, stress related. Imaging not concerning for infectious process.?Remains afebrile ? Chronic and Stable Issues: ??Essential hypertension ??-on lisinopril,?Rheumatoid arthritis ??-Resume methotrexate, methylprednisolone, and folate supplementation ??-Continue gabapentin ?History of vertigo ??-Continue scheduled meclizine 25 mg q6hrs ?? PTSD ??Anxiety ???Bipolar disease: ??-Continue aripiprazole 15 mg, carbamazepine 400 mg BID, prazosin 4 mg QD, risperidone that patient takes 3 mg in the morning and 6 mg at nighttime, ?? Restless legs ??? Resume Requip ?? Migraine headaches: No acute issues ??? On as needed sumatriptan, will hold for now ??-Continue topiramate 50 mg BID ?? Asthma: Not in exacerbation ??-Continue as needed albuterol for wheezing/dyspnea ??-Breo Ellipta as a formulary substitute for Incruse Ellipta ?? Hysterectomy with oophorectomy ??? Continue estradiol 1 mg QD ?? T2DM ??-On metformin, with hold. ???POC TID and QHS ??-SSI w/ lispro ??-Hypoglycemia protocol in place ?? GERD: ??Continue pantoprazole ?? Dispo, home ? Discharge Planning:? Vital Signs?? Temperature: 98.3 DegF (07/05/22 07:27:00) Temperature Route: Oral (07/05/22 07:27:00) Pulse Rate: 81 bpm (07/05/22 07:27:00) Pulse Rate, Sittin bpm (07/04/22 17:07:00) Systolic Blood Pressure, Sittin mm Hg (07/04/22 17:07:00) Diastolic Blood Pressure, Sittin mm Hg (07/04/22 17:07:00) Pulse Rate, Standin bpm (07/04/22 17:07:00) Systolic Blood Pressure, Standin mm Hg (07/04/22 17:07:00) Diastolic Blood Pressure, Stand[place] mm Hg (07/04/22 17:07:00) Respiratory Rate: 18 br/min (07/05/22 09:12:00) Systolic Blood Pressure:??149 mm Hg??High (07/05/22 07:27:00) Diastolic Blood Pressure: 56 mm Hg (07/05/22 07:27:00) Blood pressure sites: Arm, left (07/05/22 07:27:00) Mean Arterial Pressure: 87 mm Hg (07/05/22 07:27:00) Pulse Pressure: 93 mm Hg (07/05/22 07:27:00) Oxygen Saturation: 98 % (07/05/22 07:27:00) Liters per Minute: 2 L/min (07/04/22 12:02:00) Mode of Delivery (Oxygen): Room air (07/05/22 07:27:00) Early Warning Score: 0 (07/05/22 09:15:04) ? . Physical Exam General: [Alert, in no acute cardiopulmonary distress.] Mental Status: [Oriented to person, place and time. Normal affect.] Head: [Normocephalic.]?? Left??periorbital hematoma Eyes: [Pupils are equal, round and reactive to light. Extraocular muscles intact.] Ear, Nose and Throat: [Oropharynx clear, mucous membranes moist. left eye ecchymosis Neck: [Supple, Full range of motion.] Respiratory: [Clear to auscultation and percussion. No wheezing, rales or rhonchi.] Cardiovascular: [Heart sounds normal. No thrills. Regular rate and rhythm, no murmurs, rubs or gallops.] Gastrointestinal: [Abdomen soft, non-tender, non-distended. Normal bowel sounds. No pulsatile mass.No hepatosplenomegaly.] Genitourinary: [No costovertebral angle tenderness.] Neurologic: [Cranial nerves II-XII grossly intact. No focal neurological deficits. Musculoskeletal: [No cyanosis or clubbing. No gross deformities. Normal range of motion.] .] Pending Results No Pending Results Follow-Up Appointments Added Follow Up ?Time Frame ?Comments Steve RUBALCAVA, Clare Busby?1 to 2 weeks Post Discharge Care Discharge ?07/05/22 9:35:00 EDT Home Health Face to Face ^HomeHealthFTF Results Discharge Labs BLOOD BANK Blood Type O Positive ()?? 07/04/2022 08:14 Antibody Screen Negative ()?? 07/04/2022 08:14 RBC Unit ID [id number] ()?? 07/04/2022 10:32 RBC Available PT ()?? 07/04/2022 10:32 ?? BLOOD COUNT & DIFF WBC 13.4 k/mm3 (High)?? 07/05/2022 01:52 RBC 3.76 m/mm3 (Low)?? 07/05/2022 01:52 Hgb 9.1 Gm/dL (Low)?? 07/05/2022 01:52 Hct 30.8 % (Low)?? 07/05/2022 01:52 MCV 81.9 femtoliters ()?? 07/05/2022 01:52 MCH 24.2 pg (Low)?? 07/05/2022 01:52 MCHC 29.5 g/dL (Low)?? 07/05/2022 01:52 Platelet Count 299 k/mm3 ()?? 07/05/2022 01:52 RDW-SD 47.8 femtoliters (High)?? 07/05/2022 01:52 MPV 9.8 femtoliters ()?? 07/05/2022 01:52 Nucleated RBC (Automated) 0.0 #/100 WBC'S ()?? 07/05/2022 01:52 Abs. NRBC 0.0 k/mm3 ()?? 07/05/2022 01:52 Abs. Neut 7.9 k/mm3 (High)?? 07/05/2022 01:52 Abs. Lymph 4.0 k/mm3 (High)?? 07/05/2022 01:52 Abs. [place] 1.1 k/mm3 (High)?? 07/05/2022 01:52 Abs. Eo 0.3 k/mm3 ()?? 07/05/2022 01:52 Abs. Baso 0.1 k/mm3 ()?? 07/05/2022 01:52 Neut % 59.1 % ()?? 07/05/2022 01:52 Lymph % 29.4 % ()?? 07/05/2022 01:52 Estill % 7.9 % ()?? 07/05/2022 01:52 Eos % 2.4 % ()?? 07/05/2022 01:52 Baso % 0.5 % ()?? 07/05/2022 01:52 Imm Gran 0.7 % ()?? 07/05/2022 01:52 Abs. Imm Gran 0.1 k/mm3 ()?? 07/05/2022 01:52 ?? CARDIAC High Sensitivity Troponin (HSTnT) 9 ng/L ()?? 07/04/2022 20:26 ? CHEM GENERAL Sodium 142 mmol/L ()?? 07/05/2022 01:52 Potassium 4.9 mmol/L ()?? 07/05/2022 01:52 Chloride 108 mmol/L (High)?? 07/05/2022 01:52 Bicarbonate Level 25 mmol/L ()?? 07/05/2022 01:52 Anion Gap 9 ()?? 07/05/2022 01:52 Glucose Level 125 mg/dL (High)?? 07/05/2022 01:52 BUN 21 mg/dL (High)?? 07/05/2022 01:52 Creatinine-Blood 0.8 mg/dL ()?? 07/05/2022 01:52 Estimated GFR Creatinine 84 ML/MIN/1.73 M2 ()?? 07/05/2022 01:52 Calcium 8.6 mg/dL ()?? 07/05/2022 01:52 Magnesium 2.0 mg/dL ()?? 07/05/2022 01:52 Amylase 68 units/L ()?? 07/04/2022 08:37 Lactate 1.6 mmol/L ()?? 07/04/2022 15:34 ? COAG INR 1.0 ()?? 07/04/2022 08:37 Protime (PT) 10.2 seconds ()?? 07/04/2022 08:37 APTT 22.2 seconds (Low)?? 07/04/2022 08:37 ? HEME OTHER Hold Lavender Top SPECIMEN DISCARDED AFTER 24 HOURS. ()?? 07/04/2022 13:38 ? MISC. CHEMISTRY Hold Red Top SPECIMEN DISCARDED AFTER 1 WEEK ()?? 07/04/2022 08:37 ? TOXICOLOGY/TDM Ethanol, Serum or Plasma NONE DETECTED mg/dL ()?? 07/04/2022 08:37 Barbiturate Screen, Urine NONE DETECTED ()?? 07/04/2022 12:45 Cannabinoid Screen, Urine NONE DETECTED ()?? 07/04/2022 12:45 Cocaine Metabolite Screen, Urine NONE DETECTED ()?? 07/04/2022 12:45 Benzodiazepine Screen, Urine NONE DETECTED ()?? 07/04/2022 12:45 Amphetamine Screen, Urine NONE DETECTED ()?? 07/04/2022 12:45 Opiate Screen, Urine NONE DETECTED ()?? 07/04/2022 12:45 ? URINE OTHER Est Creatinine Clearance 57.09 mL/min ()?? 07/05/2022 02:50 ? VIROLOGY COVID-19 by RT-PCR NEGATIVE ()?? 07/04/2022 08:38 ? Microbiology ?? COVID-19 (Novel Coronavirus), Rapid PCR?? Completed?? Source: Nasal Body Site: Nose Collected Dt/Tm: 07/04/2022 08:14 Last Updated Dt/Tm: 07/04/2022 13:06 ? 25??minutes spent on discharge * Obi RUBALCAVA, Kalia: PERFORM Event Display: Discharge/Transfer Note Hospital Authored Date: [id number] documentation patient is??homebound due to unsteady gait, dizziness and vertigo,??PT for??gait strengthening,??fci for home safety medication reconciliation * Jennyfer Crowder RN: PERFORM, SIGN, VERIFY Event Display: Case Management Discharge Plan Authored Date: [id number] Patient: ELIZABETH MERCEDES Age: 61 years Sex: Female : 1960 Associated Diagnoses: None Author: Jennyfer Crowder RN Discharge Plan Case Management Discharge Plan : Case Management Discharge Plan Data 07/05/2022 10:47 EDT Discharge Level of Care at Discharge Homehealth/VNA Discharge V[facility]/Hospice/Home Care [facility] Name of Agency [facility]1 [facility] Service Categories #1 Residential Service Comments #1 Discharged today to resume services * Roxie Benavides RN: PERFORM Event Display: Patient Education/Instruction Authored Date: Inpatient Adult Discharge Instructions [address] [id number] Name: ELIZABETH MERCEDES : 1960 Visit: 07/04/2022 08:11:00 Current Date: 07/05/2022 11:20 Account: [id number] Inpatient Adult Discharge Instructions We would like to thank you for allowing us to assist you with your healthcare needs. The following includes patient education materials and information regarding your injury/illness. Our entire staffstrives to provide an excellent experience for our patients and their families. PLEASE ENSURE YOU FOLLOW-UP PER THE INSTRUCTIONS BELOW! ?? YOUR OPINION IS IMPORTANT TO US! Please complete the survey you may receive by mail or email. Your feedback will be used to make improvements to the healthcare experiences of our patients and their families. Surveys are administered by [employer] ?? If further treatment with your primary care physician or another doctor is recommended, it is important for you to keep the appointment. Call your primary care physician or return to the Emergency Department immediately if your condition worsens, fails to improve, or new symptoms develop. If you need to find a doctor, you can call [facility] for a referral at [phone] or toll free at [phone] or log in to [email or web address] ?? You can view and manage your care through the patient portal or by using a health care rebecca of your choosing. [employer] is a website that allows you to securely view your medical information including your hospital discharge summary, office visit summaries, medications and follow-up visits. You can also request appointments, renew medications, and request access to your medical information using a health care rebecca of your choosing, or just ask a question. You can enroll at [email or web address] or register during your next office visit. You have been discharged from [facility], Patient Care Unit: D3B. If you have any questions regarding these instructions after you leave, please call us and we will be happy to assist you. [facility] Your Care Team Attending Physician Kalia Crocker MD Discharging Providers Kalia Crocker MD Reason for Your Visit Comes in as a category 1 trauma after he sustained ground-level fall with head strike. Your Diagnosis Orbital fracture Back pain Tests Performed Below is a partial list of the tests performed during your hospitalization. You may have had other tests and procedures not included in this list. Please discuss all test results with your provider. Alcohol Level Amphetamine Urine Screen Amylase Barbiturate Urine Screen Basic Metabolic Panel Benzodiazepine Urine Screen Cannabinoid Urine Screen CBC w/ Differential Cocaine Urine Screen COVID-19 (Novel Coronavirus), Rapid PCR High??Sensitivity??Troponin T HOLD LAVENDER TUBE Hold Red Top Tube Lactate Level Lactic Acid Level Magnesium Level Opiate Screen Urine PT (INR) PTT Troponin T, High Sensitivity Type and Screen CT Abd/Pelvis W/ IV Contrast Only CT Cervical Spine W/O Contrast CT Chest W/ Contrast CT Head/Brain W/O Contrast CT Lumbar Spine W/ IV Contrast CT Maxilloface W/O Contrast CT Thoracic Spine W/ IV Contrast CXR W/ Frontal and Lat XR Chest Portable XR Elbow Min 3 Views Right XR Hand Min 3 Views Left XR Knee 1 or 2 Views Left XR Knee 1 or 2 Views Right XR Pelvis 1 or 2 Views Primary Care Provider Steve RUBALCAVA, Clare Busby Advance Directive . Discharge Vitals Temperature: 98.3 DegF Height: 154.9 cm Pulse Rate: 81 bpm Weight: 80.2 kg Respiratory Rate: 18 br/min Body Mass Index:??33.43 kg/m2??Critical Systolic Blood Pressure:??149 mm Hg??High Body surface area: 1.86 Diastolic Blood Pressure: 56 mm Hg ?? Oxygen Saturation: 98 % ?? Studies Pending All tests and labs ordered during this hospital stay have been completed unless listed below. Please discuss all pending results with your provider listed above in these instructions. ?? No incomplete studies found What to do next Instructions From Your Doctor Discharge Orders You Need to Schedule the Following Appointments Follow Up with??Steve RUBALCAVA, Clare Busby When:??Within 1 to 2 weeks Discharge Medications ELIZABETH MERCEDES :1960 Visit Date:07/04/2022 Medications: Please continue your medications until treatment is completed or stopped by your provider. Medications not listed below should be discontinued. Discuss any questions related to medications with your provider. What How Much When Instructions Next Dose New Metronidazole (metroNIDAZOLE 250 mg oral tablet) 1 tab(s) Oral Every 8 hours Duration: 10 Days Pickup at [facility] 3 1pm New Oxycodone (oxyCODONE 5 mg oral tablet) 1 tab(s) Oral Every 6 hours as needed for Pain , Moderate Duration: 3 Days Pickup at [facility] 3 as needed Unchanged Albuterol (Ventolin HFA 108 mcg/ inh inhalation aerosol with adapter) INHALE 2 PUFFS BY MOUTH EVERY 4 HOURS NEEDED ?? as needed Unchanged Aripiprazole (ARIPiprazole 15 mg oral tablet) 1 tab(s) Oral Daily 8am Unchanged Ascorbic Acid (Vitamin C 500 mg oral tablet) 1 tab(s) Oral Daily 8am Unchanged Aspirin (Aspirin Low Dose 81 mg oral delayed release tablet) 1 tab(s) Oral Daily 8am Unchanged Carbamazepine (carBAMazepine 400 mg oral tablet, extended release) 1 tab(s) Oral Twice a day 8pm Unchanged Cefpodoxime (cefpodoxime 200 mg oral tablet) 1 tab(s) Oral Every 12 hours Duration: 10 Days Pickup at [place] [id number] 8pm Unchanged Cholecalciferol (Vitamin D3 1000 intl units oral tablet) 1 tab(s) Oral Daily 8am Unchanged EPINEPHrine (EPINEPHrine 0.3 mg injectable solution) Unchanged Estradiol (estradiol 1 mg oral tablet) 1 tab(s) Oral Daily 8am Unchanged Fexofenadine (fexofenadine 180 mg oral tablet) 1 tab(s) Oral Daily 8am Unchanged Fluticasone-Salmeterol (fluticasone-salmeterol 500 mcg-50 mcg inhalation powder) 1 inhalation Inhalation Twice a day rinse mouth and throat after use ?? 8pm Unchanged Folic Acid (folic acid 1 mg oral tablet) 1 tab(s) Oral Daily 8am Unchanged Gabapentin (gabapentin 800 mg oral tablet) 1 tab(s) Oral 3 times a day 3pm Unchanged Lisinopril (lisinopril 10 mg oral tablet) 1 tab(s) Oral Daily 8am Unchanged Meclizine (meclizine 25 mg oral tablet) 1 tab(s) Oral Every 6 hours 1pm Unchanged Metformin (metFORMIN 500 mg oral tablet) 1 tab(s) Oral Daily with meals ?? 8am Unchanged Methotrexate (methotrexate 2.5 mg oral tablet) 1 tab(s) Oral Every week as instructed Unchanged MethylPREDNISolone (MethylPREDNISolone Dose Pack 4 mg oral tablet) 1 pack/packet Oral Daily Duration: 6 Days as directed on package labeling ?? 8am Unchanged Miscellaneous Rx (LACTASE ENZ TAB 3000UNIT) Unchanged Montelukast (montelukast 10 mg oral tablet) 1 tab(s) Oral Daily 8am Unchanged Multivitamin (multivitamin Vitamin B Complex oral capsule) 1 capsule Oral Daily 8am Unchanged omalizumab (Xolair Prefilled Syringe 75 mg/ 0.5 mL subcutaneous solution) as instructed Unchanged Pantoprazole (pantoprazole 40 mg oral delayed release tablet) 1 tab(s) Oral Daily 8am Unchanged Prazosin (prazosin 2 mg oral capsule) 4 Milligram Oral Daily at Bedtime bedtime Unchanged Pseudoephedrine (SudoGest 30 mg oral tablet) 1 tab(s) Oral Every 6 hours as needed for as needed for cold symptoms as needed Unchanged Risperidone (risperiDONE 3 mg oral tablet) See instructions 1 tablet By Mouth Daily ?? 8am Unchanged Ropinirole (rOPINIRole 0.5 mg oral tablet) See instructions 1 tablet By Mouth 3 times a day ?? 1pm Unchanged Sumatriptan (SUMAtriptan 100 mg oral tablet) 1 tab(s) Oral Once as needed for for migraine headache once as needed Unchanged Topiramate (topiramate 50 mg oral tablet) 1 tab(s) Oral Twice a day 8pm Unchanged umeclidinium (Incruse Ellipta 62.5 mcg/ inh inhalation powder) 1 Each Inhalation Every 24 hours doses should be taken at least 24 hours apart ?? as instructed Pharmacy Information [facility] 3: [address], [place] [id number] [phone] ?? What How Much When Comments Stop Taking Capsaicin Topical (capsaicin 0.075% topical cream) 1 rebecca Topically Twice a day Stop Taking Melatonin (Melatonin 3 mg oral tablet) 1 tab(s) Oral Daily at Bedtime as needed for for insomnia Stop Taking Meloxicam (meloxicam 7.5 mg oral tablet) 1 tab(s) Oral Daily Test Results Below is a partial list of the most recent Laboratory test results done prior to this discharge. You may have had other tests and procedures not included in this list. Please discuss all test resultswith your provider. Est Creatinine Clearance - 57.09 mL/min (07/05/2022) RBC Available - PT (07/04/2022) RBC Unit ID - [id number] (07/04/2022) Alcohol Level (07/04/2022) ???Ethanol, Serum or Plasma - NONE DETECTED Amphetamine Urine Screen (07/04/2022) ???Amphetamine Screen, Urine - NONE DETECTED Amylase (07/04/2022) ???Amylase - 68 units/L Barbiturate Urine Screen (07/04/2022) ???Barbiturate Screen, Urine - NONE DETECTED Basic Metabolic Panel (07/05/2022) ???Sodium - 142 mmol/L???Potassium - 4.9 mmol/L???Chloride - 108 mmol/L???Bicarbonate Level - 25 mmol/L???Anion Gap - 9???Glucose Level - 125 mg/dL???BUN - 21 mg/dL???Creatinine-Blood - 0.8 mg/dL???Estimated GFR Creatinine - 84 ML/MIN/1.73 M2???Calcium - 8.6 mg/dL Benzodiazepine Urine Screen (07/04/2022) ???Benzodiazepine Screen, Urine - NONE DETECTED Cannabinoid Urine Screen (07/04/2022) ???Cannabinoid Screen, Urine - NONE DETECTED CBC w/ Differential (07/05/2022) ???WBC - 13.4 k/mm3???RBC - 3.76 m/mm3???Hgb - 9.1 Gm/dL???Hct - 30.8 %???MCV - 81.9 femtoliters???MCH - 24.2 pg???MCHC - 29.5 g/dL???Platelet Count - 299 k/mm3???RDW-SD - 47.8 femtoliters???MPV - 9.8 femtoliters???Nucleated RBC (Automated) - 0.0 #/100 WBC'S???Abs. NRBC - 0.0 k/mm3???Abs. Neut - 7.9 k/mm3???Abs. Lymph - 4.0 k/mm3???Abs. Estill - 1.1 k/mm3???Abs. Eo - 0.3 k/mm3???Abs. Baso - 0.1 k/mm3???Neut % - 59.1 %???Lymph % - 29.4 %???Estill % - 7.9 %???Eos % - 2.4 %???Baso % - 0.5 %???Imm Gran- 0.7 %???Abs. Imm Gran - 0.1 k/mm3 Cocaine Urine Screen (07/04/2022) ???Cocaine Metabolite Screen, Urine - NONE DETECTED COVID-19 (Novel Coronavirus), Rapid PCR (07/04/2022) ???COVID-19 by RT-PCR - NEGATIVE High??Sensitivity??Troponin T (07/04/2022) ???High Sensitivity Troponin (HSTnT) - HEMOLYZED HOLD LAVENDER TUBE (07/04/2022) ???Hold Lavender Top - SPECIMEN DISCARDED AFTER 24 HOURS. Hold Red Top Tube (07/04/2022) ???Hold Red Top - SPECIMEN DISCARDED AFTER 1 WEEK Lactate Level (07/04/2022) ???Lactate - 1.6 mmol/L Lactic Acid Level (07/04/2022) ???Lactate - 3.0 mmol/L Magnesium Level (07/05/2022) ???Magnesium - 2.0 mg/dL Opiate Screen Urine (07/04/2022) ???Opiate Screen, Urine - NONE DETECTED PT (INR) (07/04/2022) ???INR - 1.0???Protime (PT) - 10.2 seconds PTT (07/04/2022) ???APTT - 22.2 seconds Troponin T, High Sensitivity (07/04/2022) ???High Sensitivity Troponin (HSTnT) - 9 ng/L Type and Screen (07/04/2022) ???Blood Type - O Positive???Antibody Screen - Negative Allergies (NKA means No Known Allergies) Augmentin??(hives) Bactrim??(hives) morphine??(hives) penicillin??(hives) Problems Active Problems??(1) Obese class I?? Education Materials Below is the list of Educational Leaflet Providered with your Discharge Instructions. Vertigo (Unknown Cause)?? Valuables and Belongings I fully understand and agree that [facility] accepts no responsibility for all my personal property including clothing, toilet articles, radios, jewelry, dentures, hearing aids, rings, money, or any other property that is in my possession or is brought to me after admission. I understand certain valuables may be placed in a hospital safe for a short period of time. I understand that the hospital is not liable for loss or damage due to accident, fire, or other natural occurrence while said property is in the safe. I accept full responsibility for any personal property that I keep with me, and will not hold the hospital responsible in case of loss or disappearance. I acknowledge that i have been encouraged to send valuables and belongings home. ?? Date for Pt to Sign Valuables/Belongings: 07/04/22 16:24:00 ?? Other Discharge Information ? Case Management Discharge Plan?? Discharge Plan?? Discharge Agency Information?? Discharge Level of Care at Discharge: Homehealth/VNA Name of Agency #1: [facility] Care: [facility] Service Categories #1: Residential ?? Service Comments #1: Discharged today to resume services ?? Pulmonary Rehab Status?? Pulmonary Rehab Discharge Status?? Respiratory Rate: 18 br/min ? Common Emergency Awareness Tips IS IT A STROKE? Act FAST and Check for these signs: FACE Does the face look uneven? ARM Does one arm drift down? SPEECH Does their speech sound strange? TIME Call at any sign of stroke ?? Heart Attack Signs Chest discomfort: Most heart attacks involve discomfort in the center of the chest and lasts more than a few minutes, or goes away and comes back. It can feel like uncomfortable pressure, squeezing, fullness or pain. Discomfort in upper body: Symptoms can include pain or discomfort in one or both arms, back, neck, jaw or stomach. Shortness of breath: With or without discomfort. Other signs: Breaking out in a cold sweat, nausea, or lightheaded. Remember, MINUTES DO MATTER. If you experience any of these heart attack warning signs, call to get immediate medical attention! ?? Smoking can increase your chances of developing chronic health problems and can cause harmful effects to other family members in your house. If you smoke, you are strongly encouraged to quit. Please call [facility] at [phone] or [phone] [phone] or log in to [email or web address] for referrals to smoking cessation programs. ?? 537 Suicide & Crisis Lifeline is available 04/09 if you or someone you know needs to find a reason to keep living. By calling 763 you'll be connected to a skilled, trained counselor at a crisis center in your area. INPATIENT DISCHARGE INSTRUCTIONS SIGNATURE PAGE ELIZABETH MERCEDES Location:[facility] Registration Date and Time:07/04/2022 08:11 EDT Primary Care Physician: Steve RUBALCAVA, Clare Busby, Attending Physician: Kalia Crocker MD, ELIZABETH NELSON, have received the above patient education materials/instructions and have verbalized understanding. If ambulance or transport services are being used I further acknowledge being given a choice of service. ?? If you need to contact me, please call me at this number: . Patient/Industrial Design Engineer Name: Patient/Industrial Design Engineer Signature: Relationship to Patient: Witness Name/Signature: Date: * Roxie Benavides RN: PERFORM Event Display: Patient Education Leaflets Authored Date: [id number] Vertigo (Unknown Cause) ?? [id number] Vertigo (Unknown Cause) Vertigo is a false feeling of motion. You aren't moving, but it feels as if you are. This feeling can be caused by problems in the inner ear. In addition to helping with hearing, the inner ear is part of the balance center of your body. When something affects the balance center, you can have vertigo. Often it feels as if you or the room are spinning. A vertigo attack may cause sudden nausea, vomiting, and heavy sweating. Severe vertigo causes a loss of balance and can make you fall. During vertigo, small head movements and changes in body position will often make the symptoms worse. You may also have ringing in the ears (tinnitus). An episode of vertigo may last seconds, minutes, or hours. Once you are over the first episode, it may never come back. But symptoms may return off and on. Often your provider will have you do certain head and body movements in the office to treat your vertigo. The cause of your vertigo is not yet known.??Possible causes of vertigo include: ??? Inner ear inflammation ??? Disease of the nerves to the inner ear ??? Movement of calcium particles in the inner ear ??? Poor blood flow to the balance centers of the brain ??? Migraine headaches??? In older adults, the use of more than one medicine along with some health conditions Home care ??? If symptoms are severe, rest quietly in bed. Change positions very slowly. There is often one position that will feel best. This may be lying on one side or lying on your back with yourhead slightly raised on pillows. Until you have no symptoms, you are at a higher risk of falling. Let someone help you when you get up. Get rid of home hazards such as loose electrical cords, clutter, toys on the floor, and throw rugs. Don???t walk in unfamiliar areas that are not lighted. Use night-lights in bathrooms and guerita. ??? Don't drive??a car??or work with dangerous machinery until symptoms have been gone for at least 1 week. ??? Take medicine as prescribed to ease your symptoms. Unless another medicine was prescribed for symptoms of nausea, vomiting, and dizziness, you may use ibgj-air-wopehhl motion sickness pills.??If you have any questions about an srfk-aze-upersjj medicineor its side effects, talk with your healthcare provider or pharmacist before taking it. Let your pharmacist know all of the other medicines you are taking and if you have any allergies to medicines. ?? Follow-up care Follow up with your healthcare provider as directed. If you are referred to a specialist or for testing, make the appointment right away. ?? When to get medical advice Call your healthcare provider if you have any of the following: ??? Fever of 100.4??F (38??C) or higher, or as directed by your healthcare provider ??? Vertigo gets worse or is not controlled by??prescribed??medicine? Repeated vomiting that doesn't stop after taking prescribed??medicine? Severe headache ??? Confusion ??? Trouble with vision ?? Call 911 Call 911 if any of these occur: ??? Feeling faint (loss of consciousness) ??? Seizure ??? Weakness of an arm, leg, or one side of the face ??? Trouble with speech ?? Last Reviewed Date: 2021 ?? [id number] [employer]. All rights reserved. This information is not intended as a substitute for professional medical care. Always follow your healthcare professional's instructions. ?? Portable XR Chest Views * [employer] , CIS S: TRANSCRIBE Paul Meza MD: VERIFY Event Display: Result: Authored Date: Chest Portable INDICATION: Pain; Clinical Question(s): Other:; Fracture, pneumothorax, pulmonary contusion / Other: COMPARISON: Subsequent chest CT FINDINGS: LINES AND TUBES: None. LUNGS AND PLEURA: Clear lungs. Normal pulmonary vascularity. No pleural effusion. No pneumothorax. HEART, MEDIASTINUM AND HIREN: Heart is normal in size. Normal mediastinal and hilar contour. BONES AND SOFT TISSUES: No acute abnormality. There are surgical clips in the right upper quadrant. IMPRESSION: No evidence of acute abnormality. WSN: [id number] Ordering Physician: Igor Vincent Dictated By: Paul Meza MD Dictated Date/Time: 07/04/22 9:14 am Reviewed By: Paul Meza MD Signed By: Paul Meza MD Signed Date/Time: 07/04/22 9:14 am Transcribed By: BESS Transcribed Date/Time: 07/04/22 9:13 am XR Pelvis 1 or 2 Views * [employer] , CIS S: TRANSCRIBE Paul Meza MD: VERIFY Event Display: Result: Authored Date: [id number] Pelvis 1 or 2 Views REASON: Trauma; with Pain; Clinical Question(s): Fracture COMPARISON: Subsequent CT. FINDINGS: There is no fracture or dislocation. Normal hips and sacroiliac joints. Normal soft tissues. IMPRESSION: No evidence of acute osseous abnormality. WSN: [id number] Ordering Physician: Igor Vincent Dictated By: Paul Meza MD Dictated Date/Time: 07/04/22 9:15 am Reviewed By: Paul Meza MD Signed By: Paul Meza MD Signed Date/Time: 07/04/22 9:15 am Transcribed By: BESS Transcribed Date/Time: 07/04/22 9:[address] Cervical spine WO contrast * [employer] , CIS S: TRANSCRIBE Luis Fair MD: VERIFY Event Display: Result: Authored Date: [id number] CT Head/Brain W/O Contrast, CT Cervical Spine W/O Contrast INDICATION: Reason: Other:; Head trauma, mod-severe; Clinical Question(s): Hematoma TECHNIQUE: Noncontrast head CT using axial technique was reconstructed in axial and coronal planes.Noncontrast spiral CT through the cervical spine was formatted in 3 planes. Automatic tube modulation was used for the cervical spine and iterative dose reconstruction was used for both the head and cervical spine to optimize scan parameters and image quality. CTDIvol Body: 15.40 mGy, DLP Body: 374 mGy*cm. CTDIvol Head: 39.60 mGy, DLP Head: 672 mGy*cm. COMPARISON: None. FINDINGS: Cumulative Effects Analyst View Findings, Lines and Tubes: None. BRAIN AND EXTRA-AXIAL SPACES: No parenchymal hemorrhage, midline shift, or mass effect. Corrales-white matter differentiation is wellpreserved. No acute infarct. Negative insular ribbon and hyperdense vessel signs. Ventricles, sulci, and basilar cisterns are normal. No white matter lesions. No subarachnoid hemorrhage. No subdural or epidural collection. CALVARIUM, SKULL BASE, AND SOFT TISSUES: No basal skull fracture. There is a fracture of the left inferior orbital wall with herniation of orbital fat into the fracture defect. The fracture likely extends to the infraorbital canal laterally, though assessment is limited due to incomplete in visualization. There is a moderate amount of high attenuation blood products in the left ethmoid and left maxillary sinus. The remainder the visualized paranasal sinuses are clear. The frontal sinuses are not pneumatized. Trace fluid in the left mastoid air cells posteriorly. Normal aeration of the right mastoid air cells. Status-post bilateral lens extraction. The extracranial soft tissues are unremarkable. CERVICAL SPINE: No fracture. No acute osseous abnormalities. Normal alignment. No locked or perched facet. Intervertebral disc spaces and vertebral body heightsare preserved. OTHER BONES: No acute abnormality. CERVICAL SOFT TISSUES AND LUNG APICES: Mild atherosclerotic calcification of the carotid bulbs. Cervical soft tissues are otherwise unremarkable. Few small apical blebs. Mild scarring in the lung apices. IMPRESSION: 1. No acute intracranial hemorrhage. No acute calvarial fracture. 2. No acute cervical spine fracture. 3. Left inferior orbital wall fracture with herniation of orbital fat into the fracture defect and suspected extension of the fracture line into the inferior orbital foramen. Associated hemorrhage inthe left ethmoid and left maxillary sinus Further assessment with maxillofacial CT is recommended for definitive fracture pattern characterization Findings communicated via [employer] secure message to Igor Vincent at 07/04/2022 9:24 AM. WSN: [id number] Ordering Physician: Igor Vincent Dictated By: Luis Fair MD Dictated Date/Time: 07/04/22 9:50 am Reviewed By: Luis Fair MD Signed By: Luis Fair MD Signed Date/Time: 07/04/22 9:50 am Transcribed By: BESS Transcribed Date/Time: 07/04/22 9:[address] Head WO contrast * [employer] , CIS S: TRANSCRIBE Luis Fair MD: VERIFY Event Display: Result: Authored Date: [id number] CT Head/Brain W/O Contrast, CT Cervical Spine W/O Contrast INDICATION: Reason: Other:; Head trauma, mod-severe; Clinical Question(s): Hematoma TECHNIQUE: Noncontrast head CT using axial technique was reconstructed in axial and coronal planes.Noncontrast spiral CT through the cervical spine was formatted in 3 planes. Automatic tube modulation was used for the cervical spine and iterative dose reconstruction was used for both the head and cervical spine to optimize scan parameters and image quality. CTDIvol Body: 15.40 mGy, DLP Body: 374 mGy*cm. CTDIvol Head: 39.60 mGy, DLP Head: 672 mGy*cm. COMPARISON: None. FINDINGS: Cumulative Effects Analyst View Findings, Lines and Tubes: None. BRAIN AND EXTRA-AXIAL SPACES: No parenchymal hemorrhage, midline shift, or mass effect. Corrales-white matter differentiation is wellpreserved. No acute infarct. Negative insular ribbon and hyperdense vessel signs. Ventricles, sulci, and basilar cisterns are normal. No white matter lesions. No subarachnoid hemorrhage. No subdural or epidural collection. CALVARIUM, SKULL BASE, AND SOFT TISSUES: No basal skull fracture. There is a fracture of the left inferior orbital wall with herniation of orbital fat into the fracture defect. The fracture likely extends to the infraorbital canal laterally, though assessment is limited due to incomplete in visualization. There is a moderate amount of high attenuation blood products in the left ethmoid and left maxillary sinus. The remainder the visualized paranasal sinuses are clear. The frontal sinuses are not pneumatized. Trace fluid in the left mastoid air cells posteriorly. Normal aeration of the right mastoid air cells. Status-post bilateral lens extraction. The extracranial soft tissues are unremarkable. CERVICAL SPINE: No fracture. No acute osseous abnormalities. Normal alignment. No locked or perched facet. Intervertebral disc spaces and vertebral body heightsare preserved. OTHER BONES: No acute abnormality. CERVICAL SOFT TISSUES AND LUNG APICES: Mild atherosclerotic calcification of the carotid bulbs. Cervical soft tissues are otherwise unremarkable. Few small apical blebs. Mild scarring in the lung apices. IMPRESSION: 1. No acute intracranial hemorrhage. No acute calvarial fracture. 2. No acute cervical spine fracture. 3. Left inferior orbital wall fracture with herniation of orbital fat into the fracture defect and suspected extension of the fracture line into the inferior orbital foramen. Associated hemorrhage inthe left ethmoid and left maxillary sinus Further assessment with maxillofacial CT is recommended for definitive fracture pattern characterization Findings communicated via [employer] secure message to Igor Vincent at 07/04/2022 9:24 AM. WSN: [id number] Ordering Physician: Igor Vincent Dictated By: Luis Fair MD Dictated Date/Time: 07/04/22 9:50 am Reviewed By: Luis Fair MD Signed By: Luis Fair MD Signed Date/Time: 07/04/22 9:50 am Transcribed By: BESS Transcribed Date/Time: 07/04/22 9:25 am XR Elbow - right GE 3 Views * [employer] , CIS S: TRANSCRIMicheal Rankin MD: VERIFY Event Display: Result: Authored Date: Elbow Min 3 Views Right INDICATION / CLINICAL QUESTION: Posttraumatic elbow pain. TECHNIQUE: AP, lateral, and oblique views. COMPARISON: None. FINDINGS: There is no fracture or focal bony lesion. There is no dislocation. There is no joint effusion. There is no evidence of arthritis. IMPRESSION: 1. There is no bone or joint abnormality seen. WSN: [id number] Ordering Physician: Igor Vincent Dictated By: Micheal Santos MD Dictated Date/Time: 07/04/22 9:45 am Reviewed By: Micheal Santos MD Signed By: Micheal Santos MD Signed Date/Time: 07/04/22 9:45 am Transcribed By: BESS Transcribed Date/Time: 07/04/22 9:[address] Thoracic spine W contrast IV * SHEYLA Suh S: TRANSCRILuis Zaragoza MD: VERIFY Event Display: Result: Authored Date: [id number] CT Chest W/ Contrast, CT Abd/Pelvis W/ IV Contrast Only, CT Lumbar Spine W/ Contrast, CT Thoracic Spine W/ Contrast INDICATION: Reason: Other:; Chest trauma, blunt; Clinical Question(s): Other:; Aortic hilar injury TECHNIQUE: Helical CT scan of the chest, abdomen, and pelvis with IV contrast, formatted in 3 planes. The original dataset was reconstructed with a small field of view around the thoracic and lumbar spine utilizing soft tissue and bone algorithm reconstructions in 3 planes. 100 cc of Omnipaque 300 was administered intravenously. This study was performed without oral contrast. Weight-based protocol was performed using automatic exposure control. CTDIvol Body: 14.70 mGy, DLP Body: 1037 mGy*cm. COMPARISON: None. FINDINGS: Cumulative Effects Analyst view findings, lines and tubes: None. Trachea and airways: Patent without evidence of tracheal or endobronchial lesion. Lungs and pleura: Mild parenchymal scarring in lung apices. No discrete focal consolidation. No pulmonary contusion or laceration. No effusion or pneumothorax. Mediastinum and hiren: No mass or hematoma. No mediastinal or hilar lymphadenopathy. No esophageal abnormality. Heart: Heart is normal in size. No pericardial effusion. Moderate coronary artery calcification. Aorta: Moderate vascular calcification but no aneurysm. Moderate noncalcified atherosclerotic plaque of the brachiocephalic artery. Pulmonary arteries: Normal caliber. No evidence of pulmonary embolism on this study performed without angiographic technique. Chest wall soft tissues: No acute abnormality. Diaphragm: Intact. Liver: Normal in attenuation and morphology. No suspicious lesion. Gallbladder: Absent consistent with prior cholecystectomy. Bile ducts: No biliary ductal dilation. Spleen: Normal in size. Pancreas: No suspicious lesion or ductal dilatation. Adrenal glands: No nodule. Kidneys and ureters: No hydronephrosis, stone, or suspicious lesion. Bladder: No wall thickening or surrounding stranding. Reproductive organs: The uterus surgically absent. No adnexal mass. Stomach, small bowel, and large bowel: Stomach, small bowel and large bowel are normal in caliber. No evidence of bowel obstruction. No acute inflammatory process of the bowel. Appendix: Normal appendix. Peritoneum and retroperitoneum: No ascites or pneumoperitoneum. No omental or mesenteric lesions. Lymph nodes: No enlarged lymph nodes. Blood vessels: Moderate atherosclerotic vascular calcification. No aortic aneurysm. No evidence of venous thrombosis. Abdominal and pelvic wall soft tissues: No acute abnormality. Bones: No acute abnormality. The pelvic ring is intact. Both proximal femurs are intact. No traumatic malalignment of the thoracic and lumbar spine. No acute vertebral body fracture. Sternum is intact. No displaced rib fractures. There is however some very subtle cortical irregularity of the anterior left fourth through eighth ribs, which could represent nondisplaced fractures. IMPRESSION: 1. Very subtle cortical irregularity of the anterior left fourth through eighth ribs, which could represent nondisplaced fractures. No displaced rib fractures. Recommend correlation for point tenderness over the chest wall. 2. Otherwise no other CT evidence of acute traumatic injury to the chest abdomen or pelvis. WSN: [id number] Ordering Physician: Igor Vincent Dictated By: Luis Fair MD Dictated Date/Time: 07/04/22 9:45 am Reviewed By: Luis Fair MD Signed By: Luis Fair MD Signed Date/Time: 07/04/22 9:45 am Transcribed By: BESS Transcribed Date/Time: 07/04/22 9:[address] Lumbar spine W contrast IV * [employer] , CIS S: TRANSCRIBE Luis Fair MD: VERIFY Event Display: Result: Authored Date: [id number] CT Chest W/ Contrast, CT Abd/Pelvis W/ IV Contrast Only, CT Lumbar Spine W/ Contrast, CT Thoracic Spine W/ Contrast INDICATION: Reason: Other:; Chest trauma, blunt; Clinical Question(s): Other:; Aortic hilar injury TECHNIQUE: Helical CT scan of the chest, abdomen, and pelvis with IV contrast, formatted in 3 planes. The original dataset was reconstructed with a small field of view around the thoracic and lumbar spine utilizing soft tissue and bone algorithm reconstructions in 3 planes. 100 cc of Omnipaque 300 was administered intravenously. This study was performed without oral contrast. Weight-based protocol was performed using automatic exposure control. CTDIvol Body: 14.70 mGy, DLP Body: 1037 mGy*cm. COMPARISON: None. FINDINGS: Cumulative Effects Analyst view findings, lines and tubes: None. Trachea and airways: Patent without evidence of tracheal or endobronchial lesion. Lungs and pleura: Mild parenchymal scarring in lung apices. No discrete focal consolidation. No pulmonary contusion or laceration. No effusion or pneumothorax. Mediastinum and hiren: No mass or hematoma. No mediastinal or hilar lymphadenopathy. No esophageal abnormality. Heart: Heart is normal in size. No pericardial effusion. Moderate coronary artery calcification. Aorta: Moderate vascular calcification but no aneurysm. Moderate noncalcified atherosclerotic plaque of the brachiocephalic artery. Pulmonary arteries: Normal caliber. No evidence of pulmonary embolism on this study performed without angiographic technique. Chest wall soft tissues: No acute abnormality. Diaphragm: Intact. Liver: Normal in attenuation and morphology. No suspicious lesion. Gallbladder: Absent consistent with prior cholecystectomy. Bile ducts: No biliary ductal dilation. Spleen: Normal in size. Pancreas: No suspicious lesion or ductal dilatation. Adrenal glands: No nodule. Kidneys and ureters: No hydronephrosis, stone, or suspicious lesion. Bladder: No wall thickening or surrounding stranding. Reproductive organs: The uterus surgically absent. No adnexal mass. Stomach, small bowel, and large bowel: Stomach, small bowel and large bowel are normal in caliber. No evidence of bowel obstruction. No acute inflammatory process of the bowel. Appendix: Normal appendix. Peritoneum and retroperitoneum: No ascites or pneumoperitoneum. No omental or mesenteric lesions. Lymph nodes: No enlarged lymph nodes. Blood vessels: Moderate atherosclerotic vascular calcification. No aortic aneurysm. No evidence of venous thrombosis. Abdominal and pelvic wall soft tissues: No acute abnormality. Bones: No acute abnormality. The pelvic ring is intact. Both proximal femurs are intact. No traumatic malalignment of the thoracic and lumbar spine. No acute vertebral body fracture. Sternum is intact. No displaced rib fractures. There is however some very subtle cortical irregularity of the anterior left fourth through eighth ribs, which could represent nondisplaced fractures. IMPRESSION: 1. Very subtle cortical irregularity of the anterior left fourth through eighth ribs, which could represent nondisplaced fractures. No displaced rib fractures. Recommend correlation for point tenderness over the chest wall. 2. Otherwise no other CT evidence of acute traumatic injury to the chest abdomen or pelvis. WSN: [id number] Ordering Physician: Igor Vincent Dictated By: Luis Fair MD Dictated Date/Time: 07/04/22 9:45 am Reviewed By: Luis Fair MD Signed By: Luis aFir MD Signed Date/Time: 07/04/22 9:45 am Transcribed By: BESS Transcribed Date/Time: 07/04/22 9:[address] Abdomen and Pelvis W contrast IV * BHSPowerscribe , CIS S: TRANSCRIBE Luis Fair MD: VERIFY Event Display: Result: Authored Date: [id number] CT Chest W/ Contrast, CT Abd/Pelvis W/ IV Contrast Only, CT Lumbar Spine W/ Contrast, CT Thoracic Spine W/ Contrast INDICATION: Reason: Other:; Chest trauma, blunt; Clinical Question(s): Other:; Aortic hilar injury TECHNIQUE: Helical CT scan of the chest, abdomen, and pelvis with IV contrast, formatted in 3 planes. The original dataset was reconstructed with a small field of view around the thoracic and lumbar spine utilizing soft tissue and bone algorithm reconstructions in 3 planes. 100 cc of Omnipaque 300 was administered intravenously. This study was performed without oral contrast. Weight-based protocol was performed using automatic exposure control. CTDIvol Body: 14.70 mGy, DLP Body: 1037 mGy*cm. COMPARISON: None. FINDINGS: Cumulative Effects Analyst view findings, lines and tubes: None. Trachea and airways: Patent without evidence of tracheal or endobronchial lesion. Lungs and pleura: Mild parenchymal scarring in lung apices. No discrete focal consolidation. No pulmonary contusion or laceration. No effusion or pneumothorax. Mediastinum and hiren: No mass or hematoma. No mediastinal or hilar lymphadenopathy. No esophageal abnormality. Heart: Heart is normal in size. No pericardial effusion. Moderate coronary artery calcification. Aorta: Moderate vascular calcification but no aneurysm. Moderate noncalcified atherosclerotic plaque of the brachiocephalic artery. Pulmonary arteries: Normal caliber. No evidence of pulmonary embolism on this study performed without angiographic technique. Chest wall soft tissues: No acute abnormality. Diaphragm: Intact. Liver: Normal in attenuation and morphology. No suspicious lesion. Gallbladder: Absent consistent with prior cholecystectomy. Bile ducts: No biliary ductal dilation. Spleen: Normal in size. Pancreas: No suspicious lesion or ductal dilatation. Adrenal glands: No nodule. Kidneys and ureters: No hydronephrosis, stone, or suspicious lesion. Bladder: No wall thickening or surrounding stranding. Reproductive organs: The uterus surgically absent. No adnexal mass. Stomach, small bowel, and large bowel: Stomach, small bowel and large bowel are normal in caliber. No evidence of bowel obstruction. No acute inflammatory process of the bowel. Appendix: Normal appendix. Peritoneum and retroperitoneum: No ascites or pneumoperitoneum. No omental or mesenteric lesions. Lymph nodes: No enlarged lymph nodes. Blood vessels: Moderate atherosclerotic vascular calcification. No aortic aneurysm. No evidence of venous thrombosis. Abdominal and pelvic wall soft tissues: No acute abnormality. Bones: No acute abnormality. The pelvic ring is intact. Both proximal femurs are intact. No traumatic malalignment of the thoracic and lumbar spine. No acute vertebral body fracture. Sternum is intact. No displaced rib fractures. There is however some very subtle cortical irregularity of the anterior left fourth through eighth ribs, which could represent nondisplaced fractures. IMPRESSION: 1. Very subtle cortical irregularity of the anterior left fourth through eighth ribs, which could represent nondisplaced fractures. No displaced rib fractures. Recommend correlation for point tenderness over the chest wall. 2. Otherwise no other CT evidence of acute traumatic injury to the chest abdomen or pelvis. WSN: [id number] Ordering Physician: Igor Vincent Dictated By: Luis Fair MD Dictated Date/Time: 07/04/22 9:45 am Reviewed By: Luis Fair MD Signed By: Luis Fair MD Signed Date/Time: 07/04/22 9:45 am Transcribed By: BESS Transcribed Date/Time: 07/04/22 9:[address] Chest W contrast IV * BHSPowerscriabdoulaye , CIS S: Luis Shannon MD: VERIFY Event Display: Result: Authored Date: [id number] CT Chest W/ Contrast, CT Abd/Pelvis W/ IV Contrast Only, CT Lumbar Spine W/ Contrast, CT Thoracic Spine W/ Contrast INDICATION: Reason: Other:; Chest trauma, blunt; Clinical Question(s): Other:; Aortic hilar injury TECHNIQUE: Helical CT scan of the chest, abdomen, and pelvis with IV contrast, formatted in 3 planes. The original dataset was reconstructed with a small field of view around the thoracic and lumbar spine utilizing soft tissue and bone algorithm reconstructions in 3 planes. 100 cc of Omnipaque 300 was administered intravenously. This study was performed without oral contrast. Weight-based protocol was performed using automatic exposure control. CTDIvol Body: 14.70 mGy, DLP Body: 1037 mGy*cm. COMPARISON: None. FINDINGS: Cumulative Effects Analyst view findings, lines and tubes: None. Trachea and airways: Patent without evidence of tracheal or endobronchial lesion. Lungs and pleura: Mild parenchymal scarring in lung apices. No discrete focal consolidation. No pulmonary contusion or laceration. No effusion or pneumothorax. Mediastinum and hiren: No mass or hematoma. No mediastinal or hilar lymphadenopathy. No esophageal abnormality. Heart: Heart is normal in size. No pericardial effusion. Moderate coronary artery calcification. Aorta: Moderate vascular calcification but no aneurysm. Moderate noncalcified atherosclerotic plaque of the brachiocephalic artery. Pulmonary arteries: Normal caliber. No evidence of pulmonary embolism on this study performed without angiographic technique. Chest wall soft tissues: No acute abnormality. Diaphragm: Intact. Liver: Normal in attenuation and morphology. No suspicious lesion. Gallbladder: Absent consistent with prior cholecystectomy. Bile ducts: No biliary ductal dilation. Spleen: Normal in size. Pancreas: No suspicious lesion or ductal dilatation. Adrenal glands: No nodule. Kidneys and ureters: No hydronephrosis, stone, or suspicious lesion. Bladder: No wall thickening or surrounding stranding. Reproductive organs: The uterus surgically absent. No adnexal mass. Stomach, small bowel, and large bowel: Stomach, small bowel and large bowel are normal in caliber. No evidence of bowel obstruction. No acute inflammatory process of the bowel. Appendix: Normal appendix. Peritoneum and retroperitoneum: No ascites or pneumoperitoneum. No omental or mesenteric lesions. Lymph nodes: No enlarged lymph nodes. Blood vessels: Moderate atherosclerotic vascular calcification. No aortic aneurysm. No evidence of venous thrombosis. Abdominal and pelvic wall soft tissues: No acute abnormality. Bones: No acute abnormality. The pelvic ring is intact. Both proximal femurs are intact. No traumatic malalignment of the thoracic and lumbar spine. No acute vertebral body fracture. Sternum is intact. No displaced rib fractures. There is however some very subtle cortical irregularity of the anterior left fourth through eighth ribs, which could represent nondisplaced fractures. IMPRESSION: 1. Very subtle cortical irregularity of the anterior left fourth through eighth ribs, which could represent nondisplaced fractures. No displaced rib fractures. Recommend correlation for point tenderness over the chest wall. 2. Otherwise no other CT evidence of acute traumatic injury to the chest abdomen or pelvis. WSN: [id number] Ordering Physician: Igor Vincent Dictated By: Luis Fair MD Dictated Date/Time: 07/04/22 9:45 am Reviewed By: Luis Fair MD Signed By: Luis Fair MD Signed Date/Time: 07/04/22 9:45 am Transcribed By: BESS Transcribed Date/Time: 07/04/22 9:31 am XR Hand - left GE 3 Views * [facility]SP[facility]erscribe , CIS S: TRANSCRIBE Micheal Santos MD: VERIFY Event Display: Result: Authored Date: [id number] Hand Min 3 Views Left INDICATION / CLINICAL QUESTION: Posttraumatic left hand pain. COMPARISON: None.. TECHNIQUE: AP, oblique, and lateral views. FINDINGS: There is no fracture or focal bony lesion . The joint spaces are normal. There is no significant soft tissue abnormality. IMPRESSION: 1. No bony injury. 2. No joint abnormality.. WSN: [id number] Ordering Physician: Igor Vincent Dictated By: Micheal Santos MD Dictated Date/Time: 07/04/22 9:46 am Reviewed By: Micheal Santos MD Signed By: Micheal Santos MD Signed Date/Time: 07/04/22 9:46 am Transcribed By: BESS Transcribed Date/Time: 07/04/22 9:45 am XR Knee - right 1 or 2 Views * KALLISPowerscbeckybe , CIS S: TRANSCRIMicheal Rankin MD: VERIFY Event Display: Result: Authored Date: [id number] Knee 1 or 2 Views Right INDICATION: Posttraumatic knee pain. TECHNIQUE: AP and lateral views. COMPARISON: None. FINDINGS: There is no fracture or focal bony lesion. The joint spaces are normal including no degenerative change. There is no chondrocalcinosis. There is a small joint effusion. IMPRESSION: 1. No bony injury. 2. No arthritic changes. 3. Small joint effusion.. WSN: [id number] Ordering Physician: gIor Vincent Dictated By: Micheal Santos MD Dictated Date/Time: 07/04/22 9:46 am Reviewed By: Micheal Santos MD Signed By: Micheal Santos MD Signed Date/Time: 07/04/22 9:46 am Transcribed By: BESS Transcribed Date/Time: 07/04/22 9:46 am XR Knee - left 1 or 2 Views * KALLISPowerscribe , CIS S: TRANSCRIMicheal Rankin MD: VERIFY Event Display: Result: Authored Date: [id number] Knee 1 or 2 Views Left INDICATION: Reason: Trauma; with Pain; Clinical Question(s): Fracture TECHNIQUE: AP and lateral views.. COMPARISON: None. FINDINGS: There is no fracture or focal bony lesion. The joint spaces are normal including no degenerative change. There is no chondrocalcinosis. There is there is no joint effusion. IMPRESSION: 1. No bony injury. 2. No joint abnormality. WSN: [id number] Ordering Physician: Igor Vincent Dictated By: Micheal Santos MD Dictated Date/Time: 07/04/22 9:47 am Reviewed By: Micheal Santos MD Signed By: Micheal Santos MD Signed Date/Time: 07/04/22 9:47 am Transcribed By: CSB Transcribed Date/Time: 07/04/22 9:[address] Maxillofacial region WO contrast * KALLISPowerscbeckybe , CIS S: TRANSCRILuis Zaragoza MD: VERIFY Event Display: Result: Authored Date: [id number] CT Maxilloface W/O Contrast INDICATION: Reason: Trauma; inferior orbital wall fracture; Clinical Question(s): Fracture; Order Comment: / Fracture TECHNIQUE: Noncontrast maxillofacial CT was performed. Reformats were performed in 3 planes. Automatic tube modulation and/or iterative dose reconstruction were used optimize scan parameters. COMPARISON: CT head without contrast 07/04/2022 FINDINGS: Cumulative Effects Analyst View Findings, Lines and Tubes: None. Facial soft tissues: There is a small soft tissue contusion and hematoma superior to the left orbitanterior to the frontal bone (230/203). There is a punctate focus of gas within the soft tissue, possibly related to a small laceration. Orbits: Both globes are intact as No intraorbital hematoma. There is a mildly comminuted and moderately displaced fracture of the left inferior orbital wall with herniation of orbital fat through thefracture defect. The fracture extends into the inferior orbital foramen and medially to involve theinferior margin of the lamina papyracea. No herniation of the inferior rectus muscle. Nasal bones: No fracture. Zygomatic arches: No fracture. Pterygoid plates: No fracture. Maxilla and alveolus: No fracture. Mandible: No fracture or dislocation. Paranasal sinuses: There is a small amount of layering hemorrhage in the left maxillary sinus and inferior left ethmoid air cells. Previously observed hemorrhage in the left nasal cavity is a longer identified. The remainder of the paranasal sinuses are clear. Other findings: Visualized intracranial structures are unremarkable. IMPRESSION: 1. Comminuted moderately displaced fracture of the inferior orbital wall with herniation of orbitalfat through the defect. No entrapment of the inferior rectus muscle. The fracture lines extend intothe inferior orbital foramen laterally and medially to the inferior portions of the left lamina papyracea. 2. Small soft tissue contusion and hematoma superior to the left orbit anterior to the frontal bone WSN: [id number] Ordering Physician: Igor Vincent Dictated By: Luis Fair MD Dictated Date/Time: 07/04/22 5:01 pm Reviewed By: Luis Fair MD Signed By: Luis Fair MD Signed Date/Time: 07/04/22 5:01 pm Transcribed By: BESS Transcribed Date/Time: 07/04/22 4:46 pm Laboratory * [facility]SP[facility]erscribe , CIS S: TRANSCRIBE Say Valencia MD V: VERIFY Event Display: Result: Authored Date: [id number] Chest 2 Views Frontal and Lat Reason: Other:; Rib fx f u ?pneumo; Clinical Question(s): Pneumothorax COMPARISON: 07/04/2022. CT scan of the chest dated 07/04/2022 at 8:21 AM. FINDINGS: Slightly limited examination due to the patient's body habitus. Fine bony detail is lacking. LINES AND TUBES: None. LUNGS AND PLEURA: Clear lungs. Normal pulmonary vascularity. No pleural effusion. No pneumothorax. No apical pneumothorax seen bilaterally. HEART, MEDIASTINUM AND HIREN: Heart is normal in size. Normal mediastinal and hilar contour. BONES AND SOFT TISSUES: No acute abnormality. No definite displaced rib fractures are noted bilaterally. IMPRESSION: No acute abnormality. No significant interval change. WSN: [id number] Ordering Physician: Clay Vigil Dictated By: Say Valencia MD, V Dictated Date/Time: 07/05/22 9:32 am Reviewed By: Say Valencia MD, V Signed By: Say Valencia MD, V Signed Date/Time: 07/05/22 9:32 am Transcribed By: CSChristiana Transcribed Date/Time: 07/05/22 9:29 am Patient Care team information Care Team Personnel Name: Jakub Schmidt RN Position: [facility] RN Member Role: Primary Care Nurse Name: Julia Jaimes RN Position: [facility] RN Member Role: Primary Care Nurse Name: Arabella Cerda NP Position: [facility] Outreach Member Role: PCP Address: Address: [address] [place] [id number] Name: Brittany Mello MD Position: [facility] CIVIL ENGINEERING MANAGER MD Member Role: Lifetime CIVIL ENGINEERING MANAGER Physician Address: Address: [address] [place] [address]- Name: Carline Monson RN Position: [facility] RN Member Role: Primary Care Nurse Name: Jona Hernandez Position: [facility] Outreach Member Role: Lifetime Consulting Physician Name: *[facility], Trauma Attending Position: [facility] ED Attendings Patient Name: *[facility], Trauma Resident Position: [facility] ED Medicine MD Name: Matt Cervantes Position: [facility] ED TA [facility] Member Role: Patient Care Provider Name: Sara Martinez RN Position: [facility] ED RN W/OE and Tasks Member Role: Patient Care Provider Care Team Related Persons Name: ELVIA CANTU Address: home [facility] [place] [address]
--- OUTSIDE RECORDS SUMMARY | 2022-10-09 10:16 | XMS_ITS | Continuity of Care Document ---
Author Name Unknown Organization [facility] [place] Address [address] [place] [address] [address] [place] [address]- Care Team Providers Care Headlight Assembler Name Role Phone Prashant ALVARADO, Arabella Gomez Primary Care Physician [phone] Encounter [facility] Date(s): 07/26/22 - 08/25/22 [facility] Plastic Surgery [address] [place] [address] Drive [address] [place] [address]- Attending Physician: Tiffany Denney Admitting Physician: AdmtrTiffany Referring Physician: [id number] Allergies, Adverse Reactions, Alerts Substance Reaction Severity Status propranolol Active doxycycline hives Active amoxicillin abdominal pain Active penicillin hives Active sulfamethoxazole-trimethoprim hives Active aspirin dyspepsia Active morphine 1 hives Morphine allergy Active nabumetone Active thiazide diuretics hives Active Augmentin hives stomach pain Active Bactrim hives Active Contrast Dye 2 hives Active Fish Active SEROquel XR unknown Active 1hives 2? Rash Immunizations Given and [...] 10/21/12 Not Given Patient Refuses 1Result Comment: [facility]:[id number] 2Result Comment: [12/05/2017] [facility]#[id number] 3Result Comment: [11/23/2016] [facility] # [id number] 4Result Comment: [12/11/2013] vis given 5Result Comment: [11/23/2016] [facility] # [id number] 6Result Comment: [04/09/2014] pt stated that she [...] opioid drug. Start Date: 07/04/22 Status: Ordered cholecalciferol 1000 intl units oral [...] 11:13:00 EDT Start Date: 07/31/19 Status: Ordered EPINEPHrine 0.3 mg injectable solution 0 Refills, [...] 06/21/20 12:46:00 EDT, Route to Pharmacy Electronically, [facility], 155, cm, 06/18/20 0:35:00 EDT, [...] 1 Refills, Maintenance, 01/12/20 9:22:00 EST, Tablet, [facility], 158.5, cm, 01/07/20 15:56:00 EST, [...] Refills, Maintenance, 04/09/20 12:50:00 EST, ER Tablet, [facility], 156, cm, 01/22/20 18:13:00 EST, Height, 85, [...] Date: 07/04/22 Stop Date: 07/10/22 Status: Ordered montelukast 10 mg oral tablet [...] TABLET BY MOUTH ONCE DAILY INTHE EVENING., [facility] Start Date: 10/31/18 Status: Ordered [...] 0 Refills, Maintenance, 06/17/20 9:47:00 EDT, Capsule, [facility], Partial fill upon patient request [...] Soft Stop, 09/28/21 0:26:00 EDT, DIS Tablet, [facility]/pharmacy #[id number], Partial fill upon patient requestif the prescription is for a schedule II opioid moriah... Start Date: 09/28/21 Stop Date: 10/01/21 Status: Ordered pantoprazole 40 mg oral delayed release tablet 40 mg, By Mouth, 2 times a day, # 180 each, Refills 3, Tot. Refills 3, Maintenance, 08/22/16 14:18:07, Route to Pharmacy Electronically, [id number], [facility] Start Date: 08/22/16 [...] Maintenance, 06/03/19 10:55:00 EDT, Tablet, [facility], 1 tablet By Mouth Daily, [...] 0 Refills, Maintenance, 01/12/20 14:32:00 EST, Tablet, [facility], 158.5, cm, 01/07/20 15:56:00 EST, [...] Confirmed Active Obese class I Confirmed Active Obesity Confirmed Active Pelvic pain [...] trees, mites 3Dr Renae Servicenet 4chronic pantozapole, 5[facility] audiology Social History Social History Type Response Smoking Status Former smoker; Tobac co user in household: No; Type: Cigarettes; Tobacco use times per day: UP TO 3 PPD; Stopped at age: 52; entered on: 04/14/14 Sex Patient Care team information Care Team Personnel Name: Jakub Schmidt RN Position: [facility] RN Member Role: Primary Care Nurse Name: Julia Jaimes RN Position: [facility] RN Member Role: Primary Care Nurse Name: Arabella Cerda NP Position: [facility] Outreach Member Role: PCP Address: Address: [address] [place] [id number] Name: Brittany Mello MD Position: [facility] PLASTIC SURGERY COORDINATOR MD Member Role: Lifetime PLASTIC SURGERY COORDINATOR Physician Address: Address: [address] [place] [address] [employer] [place] [address]- Name: Carline Monson RN Position: [facility] RN Member Role: Primary Care Nurse Name: Jona Hernandez Position: [facility] Outreach Member Role: Lifetime Consulting Physician Care Team Related Persons Name: ELVIA CANTU Address: home [facility] [place] [address]
--- OUTSIDE RECORDS SUMMARY | 2022-10-09 10:17 | XMS_ITS | Continuity of Care Document ---
Author Name Unknown Organization [facility] [place] Address [address] [place] [address] [address] [place] [address]- Care Team Providers Care Hot Knife Cutter Name Role Phone Prashant ALVARADO, Arabella Gomez Primary Care Physician Encounter [facility] Date(s): 07/26/22 - 08/02/22 [facility] Plastic Surgery [address] [place] [address] Drive [address] [place] [address]- Attending Physician: Dionte Cuevas MD Referring Physician: Not on Staff, Referring [...] 10/21/12 Not Given Patient Refuses 1Result Comment: [facility]:[id number] 2Result Comment: [12/05/2017] [facility]#[id number] 3Result Comment: [11/23/2016] [facility] # [id number] 4Result Comment: [12/11/2013] vis given 5Result Comment: [11/23/2016] [facility] # [id number] 6Result Comment: [04/09/2014] pt stated that she [...] Maintenance, 07/10/19 13:08:00 EDT, Tablet, [facility], 158.5, cm, 07/01/19 12:34:00 [...] 06/21/20 12:46:00 EDT, Route to Pharmacy Electronically, [facility], 155, cm, 06/18/20 0:35:00 EDT, Height, [...] 1 Refills, Maintenance, 01/12/20 9:22:00 EST, Tablet, [facility], 158.5, cm, 01/07/20 15:56:00 EST, Height, [...] [facility], 158.5, cm, 11/04/19 8:30:00 EDT, Height, [...] Refills, Maintenance, 04/09/20 12:50:00 EST, ER Tablet, [facility], 156, cm, 01/22/20 18:13:00 EST, Height, [...] TABLET BY MOUTH ONCE DAILY INTHE EVENING., [facility] Start Date: 10/31/18 Status: Ordered multivitamin [...] 0 Refills, Maintenance, 06/17/20 9:47:00 EDT, Capsule, [facility], Partial fill upon patient request if [...] Soft Stop, 09/28/21 0:26:00 EDT, DIS Tablet, [facility]/pharmacy #[id number], Partial fill upon patient requestif the prescription is for a schedule II opioid moriah... Start Date: 09/28/21 Stop Date: 10/01/21 Status: Ordered pantoprazole 40 mg oral delayed release tablet 40 mg, By Mouth, 2 times a day, # 180 each, Refills 3, Tot. Refills 3, Maintenance, 08/22/16 14:18:07, Route to Pharmacy Electronically, [id number], [facility] Start Date: [...] Maintenance, 06/03/19 10:55:00 EDT, Tablet, [facility], 1 tablet By Mouth Daily, 158.5, [...] 0 Refills, Maintenance, 01/12/20 14:32:00 EST, Tablet, [facility], 158.5, cm, 01/07/20 15:56:00 EST, Height, [...] trees, mites 3Dr Renae Servicenet 4chronic pantozapole, [facility] Vital Signs Most recent to oldest [Reference Range]: 1 Height 154.9 cm (07/26/22 10:07 AM) Weight 81.36 kg (07/26/22 10:07 AM) Body Mass Index [18.5-24.99 kg/m2] 33.91 kg/m2 *>HHI* (07/26/22 10:07 AM) Weight Obtained Via Standing scale (07/26/22 10:07 AM) Social History Social History Type Response Smoking Status Former smoker; Tobac co user in household: No; Type: Cigarettes; Tobacco use times per day: UP TO 3 PPD; Stopped at age: 52; entered on: 04/14/14 Sex Patient Care team information Care Team Personnel Name: Jakub Schmidt RN Position: [facility] RN Member Role: Primary Care Nurse Name: Julia Jaimes RN Position: [facility] RN Member Role: Primary Care Nurse Name: Arabella Cerda NP Position: [facility] Outreach Member Role: PCP Address: Address: [address] [place] [id number] Name: Brittany Mello MD Position: [facility] ASSEMBLER METAL BUILDING MD Member Role: Lifetime ASSEMBLER METAL BUILDING Physician Address: Address: [address] Salon/Spa Manager [place], [place] [address] Name: Carline Monson RN Position: [facility] RN Member Role: Primary Care Nurse Name: Jona Hernandez Position: S Outreach Member Role: Lifetime Consulting Physician Care Team Related Persons Name: ELVIA CANTU Address: [place] [address]
--- OUTSIDE RECORDS SUMMARY | 2022-10-09 10:18 | XMS_ITS | Continuity of Care Document ---
Author Name Unknown Organization [facility] [place] Address [address] [place] [address] [address] [place] [address]- Care Team Providers Care Plastic Cnc Machine Operator Name Role Phone Prashant ALVARADO, Arabella Gomez Primary Care Physician Encounter [facility] Date(s): 07/17/22 - 07/24/22 [facility] Plastic [address] [place] [address]- Attending Physician: Dionte Cuevas MD Referring Physician: Not on Staff, Referring MD Allergies, Adverse Reactions, Alerts Substance Reaction Severity Status propranolol Active penicillin hives Active morphine 1 hives Morphine allergy Active nabumetone Active Augmentin hives stomach pain Active Bactrim hives Active doxycycline hives Active thiazide diuretics hives Active Contrast Dye 2 hives Active amoxicillin abdominal pain Active sulfamethoxazole-trimethoprim hives Active aspirin dyspepsia Active Fish Active SEROquel XR unknown Active [...] 10/21/12 Not Given Patient Refuses 1Result Comment: [facility]:[id number] 2Result Comment: [12/05/2017] [facility]#[id number] 3Result Comment: [11/23/2016] [facility] # [id number] 4Result Comment: [12/11/2013] vis given 5Result Comment: [11/23/2016] [facility] # [id number] 6Result Comment: [04/09/2014] pt stated that she [...] 06/21/20 12:46:00 EDT, Route to Pharmacy Electronically, [facility], 155, cm, 06/18/20 0:35:00 EDT, [...] 1 Refills, Maintenance, 01/12/20 9:22:00 EST, Tablet, [facility], 158.5, cm, 01/07/20 15:56:00 EST, Height, [...] [facility], 158.5, cm, 11/04/19 8:30:00 EDT, Height, [...] 04/09/20 12:50:00 EST, ER Tablet, [facility], 156, cm, 01/22/20 18:13:00 EST, Height, [...] TABLET BY MOUTH ONCE DAILY INTHE EVENING., [facility] Start Date: 10/31/18 Status: Ordered multivitamin [...] 0 Refills, Maintenance, 06/17/20 9:47:00 EDT, Capsule, [facility], Partial fill upon patient request [...] Soft Stop, 09/28/21 0:26:00 EDT, DIS Tablet, [id number], Partial fill upon patient requestif the prescription is for a schedule II opioid moriah... Start Date: 09/28/21 Stop Date: 10/01/21 Status: Ordered pantoprazole 40 mg oral delayed release tablet 40 mg, By Mouth, 2 times a day, # 180 each, Refills 3, Tot. Refills 3, Maintenance, 08/22/16 14:18:07, Route to Pharmacy Electronically, [id number], [facility] Start Date: 08/22/16 Stop [...] 10:55:00 EDT, Tablet, [facility], 1 tablet By Mouth Daily, [...] 0 Refills, Maintenance, 01/12/20 14:32:00 EST, Tablet, [facility] [...] trees, mites 3Dr Renae Servicenet 4chronic pantozapole, [facility] Social History Social History Type Response Smoking Status Former smoker; Tobac co user in household: No; Type: Cigarettes; Tobacco use times per day: UP TO 3 PPD; Stopped at age: 52; entered on: 04/14/14 Sex Patient Care team information Care Team Personnel Name: Jakub Schmidt RN Position: [facility] RN Member Role: Primary Care Nurse Name: Julia Jaimes RN Position: [facility] RN Member Role: Primary Care Nurse Name: Arabella Cerda NP Position: [facility] Outreach Member Role: PCP Address: Address: [address] [place] [address]- Name: Brittany Mello MD Position: [facility] GLUE DRIER OPERATOR MD Member Role: Lifetime GLUE DRIER OPERATOR Physician Address: Address: [address] [place], [place] [address]s [facility] [place] [address]- Name: Carline Monson RN Position: [facility] RN Member Role: Primary Care Nurse Name: Jona Hernandez Position: [facility] Outreach Member Role: Lifetime Consulting Physician Care Team Related Persons Name: ELVIA CANTU Address: home [facility] [place] [address]
--- OUTSIDE RECORDS SUMMARY | 2022-10-09 10:20 | XMS_ITS | Continuity of Care Document ---
Author Name Unknown Organization [facility] [place] Address [address] [place] [address] [address] [place] [address]- Care Team Providers Care Sand Car Worker Name Role Phone Prashant ALVARADO, Arabella Gomez Primary Care Physician [phone] Encounter [facility] Date(s): 07/11/22 - 08/10/22 [facility] Plastic Surgery [address] [place] [address] Drive [address] [place], [place] [address] Allergies, Adverse Reactions, Alerts Substance Reaction Severity Status propranolol Active doxycycline hives Active nabumetone Active thiazide diuretics hives Active Bactrim hives Active amoxicillin abdominal pain Active penicillin hives Active morphine 1 hives Morphine allergy Active Augmentin hives stomach pain Active sulfamethoxazole-trimethoprim hives Active aspirin dyspepsia Active Contrast Dye 2 hives Active Fish [...] Refuses 1Result Comment: [facility]:[id number] 2Result Comment: [12/05/2017] [facility]#[id number] 3Result Comment: [11/23/2016] [facility] # [id number] 4Result Comment: [12/11/2013] vis given 5Result Comment: [11/23/2016] [facility] # [id number] 6Result Comment: [04/09/2014] pt stated that she [...] Maintenance, 01/12/20 9:22:00 EST, Tablet, [facility], 158.5, cm, 01/07/20 15:56:00 EST, Height, [...] [facility], 158.5, cm, 11/04/19 8:30:00 EDT, Height, [...] 04/09/20 12:50:00 EST, ER Tablet, [facility], 156, cm, 01/22/20 18:13:00 EST, Height, [...] TABLET BY MOUTH ONCE DAILY INTHE EVENING., [facility] Start Date: 10/31/18 Status: Ordered multivitamin [...] Soft Stop, 09/28/21 0:26:00 EDT, DIS Tablet, [facility]/pharm[facility] #[id number], Partial fill upon patient requestif the prescription is for a schedule II opioid moriah... Start Date: 09/28/21 Stop Date: 10/01/21 Status: Ordered pantoprazole 40 mg oral delayed release tablet 40 mg, By Mouth, 2 times a day, # 180 each, Refills 3, Tot. Refills 3, Maintenance, 08/22/16 14:18:07, Route to Pharmacy Electronically, [id number], [facility] Start [...] 3 Refills, Maintenance, 06/03/19 10:55:00 EDT, Tablet, [facility], 1 tablet By Mouth Daily, 158.5, [...] 0 Refills, Maintenance, 01/12/20 14:32:00 EST, Tablet, [facility], 158.5, cm, 01/07/20 15:56:00 EST, Height, [...] trees, mites 3Dr Renae Servicenet 4chronic pantozapole, [facility] Social History Social History Type Response Smoking Status Former smoker; Tobac co user in household: No; Type: Cigarettes; Tobacco use times per day: UP TO 3 PPD; Stopped at age: 52; entered on: 04/14/14 Sex Patient Care team information Care Team Personnel Name: Jakub Schmidt RN Position: [facility] RN Member Role: Primary Care Nurse Name: Julia Jaimes RN Position: [facility] RN Member Role: Primary Care Nurse Name: Arabella Cerda NP Position: [facility] Outreach Member Role: PCP Address: Address: [address] [place] [address]- Name: Brittany Mello MD Position: [facility] NIGHT SHIFT SUPERVISOR MD Member Role: Lifetime NIGHT SHIFT SUPERVISOR Physician Address: Address: [address] [place], [place] [address]s [facility] Oilseed Meat Presser [place], [place] [address] Name: Carline Monson RN Position: [facility] RN Member Role: Primary Care Nurse Name: Jona Hernandez Position: [facility] Outreach Member Role: Lifetime Consulting Physician Care Team Related Persons Name: PEPE ELVIA Address: home [facility] [place] [address]
--- OUTSIDE RECORDS SUMMARY | 2022-10-09 10:20 | XMS_ITS | Continuity of Care Document ---
Author Name Unknown Organization [facility] [place] Address [address] [place] [address] [address] [place] [address]- Care Team Providers Care Bulk Driver Name Role Phone Prashant ALVARADO, Arabella Gomez Primary Care Physician Encounter [facility] Date(s): 07/11/22 - 08/10/22 [facility] Plastic Surgery [address] [place] [address] Drive [address] [place] [address]- Allergies, Adverse Reactions, Alerts Substance Reaction Severity [...] 10/21/12 Not Given Patient Refuses 1Result Comment: [facility]:[id number] 2Result Comment: [12/05/2017] [facility]#[id number] 3Result Comment: [11/23/2016] [facility] # [id number] 4Result Comment: [12/11/2013] vis given 5Result Comment: [11/23/2016] [facility] # [id number] 6Result Comment: [04/09/2014] pt stated that she [...] Electronically, [facility], 155, cm, 06/18/20 0:35:00 [...] 1 Refills, Maintenance, 01/12/20 9:22:00 EST, Tablet, [facility], 158.5, cm, 01/07/20 15:56:00 EST, Height, 84, [...] Refills, Maintenance, 04/09/20 12:50:00 EST, ER Tablet, [facility], 156, cm, 01/22/20 18:13:00 EST, Height, 85, [...] MOUTH ONCE DAILY INTHE EVENING., [facility] [...] Maintenance, 06/17/20 9:47:00 EDT, Capsule, [facility], Partial fill upon patient [...] Soft Stop, 09/28/21 0:26:00 EDT, DIS Tablet, [facility]/pharmacy #[id number], Partial fill upon patient requestif the prescription is for a schedule II opioid moriah... Start Date: 09/28/21 Stop Date: 10/01/21 Status: Ordered pantoprazole 40 mg oral delayed release tablet 40 mg, By Mouth, 2 times a day, # 180 each, Refills 3, Tot. Refills 3, Maintenance, 08/22/16 14:18:07, Route to Pharmacy Electronically, [id number], [facility] Start Date: 08/22/16 Stop [...] 3 Refills, Maintenance, 06/03/19 10:55:00 EDT, Tablet, [facility], 1 tablet By Mouth Daily, [...] Maintenance, 01/12/20 14:32:00 EST, Tablet, [facility], 158.5, cm, 01/07/20 15:56:00 [...] trees, mites 3Dr Renae Servicenet 4chronic pantozapole, [facility] Social History Social History Type Response Smoking Status Former smoker; Tobac co user in household: No; Type: Cigarettes; Tobacco use times per day: UP TO 3 PPD; Stopped at age: 52; entered on: 04/14/14 Sex Patient Care team information Care Team Personnel Name: Jakub Schmidt RN Position: [facility] RN Member Role: Primary Care Nurse Name: Julia Jaimes RN Position: [facility] RN Member Role: Primary Care Nurse Name: Arabella Cerda NP Position: [facility] Outreach Member Role: PCP Address: Address: [address] [place] [address]- Name: Brittany Mello MD Position: [facility] EXECUTIVE ASST MD Member Role: Lifetime EXECUTIVE ASST Physician Address: Address: [address] [place], [place] [address]s [facility] Steel Worker [place], [place] [address] Name: Carline Monson RN Position: [facility] RN Member Role: Primary Care Nurse Name: Jona Hernandez Position: [facility] Outreach Member Role: Lifetime Consulting Physician Care Team Related Persons Name: GUILLERMOAleyda ELVIA Address: home [facility] [place] [address]
--- OUTSIDE RECORDS SUMMARY | 2022-10-09 10:21 | XMS_ITS | Continuity of Care Document ---
Author Name Unknown Organization [facility] [place]astic [place] Address [address] [place] [address] D[address] [place] [address]- Care Team Providers Care Air Hammer Operator Name Role Phone Prashant ALVARADO, Arabella Gomez Primary Care Physician En[place] [facility] Date(s): 07/17/22 - 08/16/22 [facility] Plastic [address] [place] [address]- Attending Physician: Tiffany Denney Admitting Physician: AdmTiffany farrell Referring Physician: AdmtrTiffany Allergies, Adverse Reactions, Alerts Substance Reaction Severity Status propranolol Active doxycycline hives Active penicillin hives Active morphine 1 hives [...] 10/21/12 Not Given Patient Refuses 1Result Comment: [facility]:[id number] 2Result Comment: [12/05/2017] [facility]#[id number] 3Result Comment: [11/23/2016] [facility] # [id number] 4Result Comment: [12/11/2013] vis given 5Result Comment: [11/23/2016] [facility] # [id number] 6Result Comment: [04/09/2014] pt stated that she [...] 06/21/20 12:46:00 EDT, Route to Pharmacy Electronically, [facility], 155, cm, 06/18/20 0:35:00 EDT, [...] 1 Refills, Maintenance, 01/12/20 9:22:00 EST, Tablet, [facility], 158.5, cm, 01/07/20 15:56:00 EST, [...] Refills, Maintenance, 04/09/20 12:50:00 EST, ER Tablet, [facility], 156, cm, 01/22/20 18:13:00 EST, Height, [...] TABLET BY MOUTH ONCE DAILY INTHE EVENING., [facility] Start Date: 10/31/18 Status: Ordered [...] 0 Refills, Maintenance, 06/17/20 9:47:00 EDT, Capsule, [facility], Partial fill upon patient request [...] Soft Stop, 09/28/21 0:26:00 EDT, DIS Tablet, [facility]/pharmacy #[id number], Partial fill upon patient requestif the prescription is for a schedule II opioid moriah... Start Date: 09/28/21 Stop Date: 10/01/21 Status: Ordered pantoprazole 40 mg oral delayed release tablet 40 mg, By Mouth, 2 times a day, # 180 each, Refills 3, Tot. Refills 3, Maintenance, 08/22/16 14:18:07, Route to Pharmacy Electronically, [id number], [facility] [...] 3 Refills, Maintenance, 06/03/19 10:55:00 EDT, Tablet, [facility], 1 tablet By Mouth Daily, 158.5, [...] 0 Refills, Maintenance, 01/12/20 14:32:00 EST, Tablet, [facility], 158.5, cm, 01/07/20 15:56:00 EST, [...] trees, mites 3Dr Renae Servicenet 4chronic pantozapole, [facility] Social History Social History Type Response Smoking Status Former smoker; Tobac co user in household: No; Type: Cigarettes; Tobacco use times per day: UP TO 3 PPD; Stopped at age: 52; entered on: 04/14/14 Sex Patient Care team information Care Team Personnel Name: Jakub Schmidt RN Position: [facility] RN Member Role: Primary Care Nurse Name: Julia Jaimes RN Position: [facility] RN Member Role: Primary Care Nurse Name: Arabella Cerda NP Position: [facility] Outreach Member Role: PCP Address: Address: [address] [place] [id number] Name: Brittany Mello MD Position: [facility] ENTERPRISE ACCOUNT EXECUTIVE MD Member Role: Lifetime ENTERPRISE ACCOUNT EXECUTIVE Physician Address: Address: [address] [place] [address]'s [facility] [place] [address]- Name: Carline Monson RN Position: [facility] RN Member Role: Primary Care Nurse Name: Jona Hernandez Position: [facility] Outreach Member Role: Lifetime Consulting Physician Care Team Related Persons Name: GUILLERMOAleydaELVIA Address: [place] [address]
[2022-10-09 10:48] VITALS: BP 107/48; PULSE 82; RESP 16; TEMP 36.3; O2SAT 95; BMI 33.8
[2022-10-09 12:41] VITALS: BP 142/56; PULSE 77; RESP 18; O2SAT 97
--- NOTE | 2022-10-09 13:15 | MHC.SHP ---
Pre-Procedural Eval Section A Date of Service: 10/09/22 The patient is an INPATIENT: No Changes since office visit: No Cold of Flu in the past 2 weeks, No New Medical Problems, No Changes in Medication and No Patient answered all questions The History & Physical has been completed within 30 days and I have reviewed it.: Yes Section B Chief Complaint: Carpal tunnel syndrome, right upper limb Allergies: Allergies Allergy/AdvReac Type Severity Reaction Status Date / Time cephalexin Allergy Intermediate Diarrhea Verified 09/19/22 11:53 Iodinated Contrast Media Allergy Intermediate DIFF Verified 09/19/22 11:53 [IV CONTRAST] BREATHING morphine [MORPHINE] Allergy Intermediate HIVES Verified 09/19/22 11:53 nabumetone [NABUMETONE] Allergy Intermediate HIVES Verified 09/19/22 11:53 sulfamethoxazole Allergy Intermediate HIVES Verified 09/19/22 11:53 [From BACTRIM] trimethoprim [From BACTRIM] Allergy Intermediate HIVES Verified 09/19/22 11:53 dicloxacillin Allergy Unknown Rash Verified 09/19/22 11:53 dyclonine Allergy Unknown Unknown Verified 09/19/22 11:53 propranolol [Inderal LA] Allergy Unknown unknown Verified 09/19/22 11:53 quetiapine [Seroquel] Allergy Unknown rash Verified 09/19/22 11:53 Sulfa (Sulfonamide Allergy Unknown hives Verified 09/19/22 11:53 Antibiotics) amoxicillin [From Augmentin] Allergy stomach Verified 09/19/22 11:53 pain clavulanic acid Allergy stomach Verified 09/19/22 11:53 [From Augmentin] pain polyethylene glycol AdvReac Severe Hallucinati Verified 09/19/22 11:53 [From Golytely] ons polyethylene glycol 3350 AdvReac Severe Hallucinati Verified 09/19/22 11:53 [From Golytely] ons potassium chloride AdvReac Severe Hallucinati Verified 09/19/22 11:53 [From Golytely] ons sodium [From Golytely] AdvReac Severe Hallucinati Verified 09/19/22 11:53 ons sodium bicarbonate AdvReac Severe Hallucinati Verified 09/19/22 11:53 [From Golytely] ons sodium chloride AdvReac Severe Hallucinati Verified 09/19/22 11:53 [From Golytely] ons sodium sulfate AdvReac Severe Hallucinati Verified 09/19/22 11:53 [From Golytely] ons doxycycline [DOXYCYCLINE] AdvReac Intermediate NAUSEA & Verified 09/19/22 11:53 VOMITTING From INDERAL Allergy Intermediate RASH Uncoded 09/19/22 11:53 Codeine Sulfate Allergy Unknown Unknown Uncoded 09/19/22 11:53 Plan I have reviewed the history and physical and performed a pertinent physical examination on my patient. No changes have occurred unless specified. Time Spent With Patient Time: Total time managing care of this patient today ____ minutes.
== END 2022-10-09 12:42 | disposition home or self-care (01) ==
PROVIDERS: PCP Nurse Practitioner Family; Visit Provider Orthopaedic Surgery
PROC: (CPT 64721; principal; 2022-10-09 11:30)
DX: G56.01 Carpal tunnel syndrome, right upper limb (principal); M25.641 Stiffness of right hand, not elsewhere classified; R20.0 Anesthesia of skin; R60.9 Edema, unspecified; E11.9 Type 2 diabetes mellitus without complications; M06.9 Rheumatoid arthritis, unspecified; R20.2 Paresthesia of skin; J44.9 Chronic obstructive pulmonary disease, unspecified; Z79.82 Long term (current) use of aspirin; Z79.84 Long term (current) use of oral hypoglycemic drugs; Z79.899 Other long term (current) drug therapy; Z91.041 Radiographic dye allergy status; Z88.1 Allergy status to other antibiotic agents; Z88.2 Allergy status to sulfonamides; Z88.5 Allergy status to narcotic agent; Z87.891 Personal history of nicotine dependence
CPT/HCPCS: 64721; J0171

== ENCOUNTER → 2022-10-09 10:11 | Outpatient (BNV) | payer OTHER, SELFPAY | PROVIDERS: PCP Nurse Practitioner Family; Visit Provider Orthopaedic Surgery | DX: G56.01 Carpal tunnel syndrome, right upper limb (principal) | CPT/HCPCS: 64721 ==

== ENCOUNTER 2022-10-25 11:21 | Outpatient (AMB) | payer OTHER, SELFPAY ==
[2022-10-25 11:30] VITALS: BP 112/58; PULSE 91; TEMP 36.5; O2SAT 95; BMI 32.3
--- NOTE | 2022-10-25 11:30 | MHC.OFFVIS ---
Intake Vital Signs 10/25/22 11:30 Height 5 ft 1 in Weight 170 lb 13.732 oz BMI 32.3 BP 112/58 L Blood Pressure Location Rt brachial Position Sitting Pulse 91 Pulse Source Pulse Oximeter Temp 97.7 F Temp Source Skin Pulse Oximetry (%) 95 Intake Visit Reasons: Bilat knee pain Intake Note: Pt seen today for follow up and test results. 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: No Accompanied by: Self / Same As Patient Allergies cephalexin Allergy (Intermediate, Verified 10/25/22 11:33) Diarrhea Iodinated Contrast Media [IV CONTRAST] Allergy (Intermediate, Verified 10/25/22 11:) DIFF BREATHING morphine [MORPHINE] Allergy (Intermediate, Verified 10/25/22 11:) HIVES nabumetone [NABUMETONE] Allergy (Intermediate, Verified 10/25/22 11:) HIVES sulfamethoxazole [From BACTRIM] Allergy (Intermediate, Verified 10/25/22 11:) HIVES trimethoprim [From BACTRIM] Allergy (Intermediate, Verified 10/25/22:) HIVES dicloxacillin Allergy (Unknown, Verified 10/25/22 11:33) Rash dyclonine Allergy (Unknown, Verified 10/25/22 11:33) Unknown propranolol [Inderal LA] Allergy (Unknown, Verified 10/25/22 11:33) unknown quetiapine [Seroquel] Allergy (Unknown, Verified 10/25/22 11:33) rash Sulfa (Sulfonamide Antibiotics) Allergy (Unknown, Verified 10/25/22 11:33) hives amoxicillin [From Augmentin] Allergy (Verified 10/25/22 11:33) stomach pain clavulanic acid [From Augmentin] Allergy (Verified 10/25/22 11:33) stomach pain polyethylene glycol [From Golytely] Adverse Reaction (Severe, Verified 10/25/22 11:33) Hallucinations polyethylene glycol 3350 [From Golytely] Adverse Reaction (Severe, Verified 10/25/22 11:33) Hallucinations potassium chloride [From Golytely] Adverse Reaction (Severe, Verified 10/25/22 11:33) Hallucinations sodium [From Golytely] Adverse Reaction (Severe, Verified 10/25/22 11:33) Hallucinations sodium bicarbonate [From Golytely] Adverse Reaction (Severe, Verified 10/25/22 11:33) Hallucinations sodium chloride [From Golytely] Adverse Reaction (Severe, Verified 10/25/22 11:33) Hallucinations sodium sulfate [From Golytely] Adverse Reaction (Severe, Verified 10/25/22 11:33) Hallucinations doxycycline [DOXYCYCLINE] Adverse Reaction (Intermediate, Verified 10/25/22 11:33) NAUSEA & VOMITTING From INDERAL Allergy (Intermediate, Uncoded 10/25/22 11:33) RASH Codeine Sulfate Allergy (Unknown, Uncoded 10/25/22 11:33) Unknown Medication List - Last Reconciled 10/25/22 by Nael Yang MD albuterol sulfate 90 mcg/actuation (Ventolin HFA) 2 puffs inhalation Q4H PRN aripiprazole 15 mg PO DAILY aspirin 81 mg PO DAILY carbamazepine ER (Tegretol XR) 400 mg PO BID cephalexin 500 mg PO QID cholecalciferol (vitamin D3) 50 mcg PO DAILY estradiol 1 mg PO DAILY fexofenadine 0 mg PO BID fluticasone propion-salmeterol 500-50 mcg/dose 1 ea inhalation BID folic acid 1 mg PO DAILY gabapentin 800 mg PO TID lisinopril 10 mg PO DAILY meclizine 25 mg PO QID melatonin 9 mg PO BEDTIME metformin 500 mg PO BID methotrexate sodium 20 mg (8 x 2.5 mg) PO QWEEK montelukast (Singulair) 10 mg PO BEDTIME omalizumab (Xolair) mg subcut omalizumab (Xolair) mg subcut ondansetron 4 mg PO Q8H PRN oxycodone-acetaminophen 5-325 mg 1 tab PO Q6H PRN pantoprazole 40 mg PO BID prazosin 2 mg PO BEDTIME PRN pseudoephedrine HCl (Sudogest) 30 mg PO risperidone (Risperdal) 3 mg PO BID ropinirole 1 mg PO BID sod sulf-pot chloride-mag sulf 1.479-0.188- 0.225 gram (Sutab) PO PER PKG DIR sumatriptan succinate 100 mg PO DAILY PRN topiramate 50 mg PO BID topiramate 100 mg PO BID umeclidinium 62.5 mcg/actuation (Incruse Ellipta) 1 inh inhalation DAILY vitamin B complex (Vitamins B Complex capsule) 1 cap PO DAILY HPI HPI Comments History of Present Illness Details 62-year-old female with seronegative arthritis (likely PsA)returns for follow-up. On methotrexate 20 mg once weekly. States that the pain in her hands has resolved however she is having right shoulder and right elbow pain. The pain in her right shoulder is chronic. she had rotator cuff surgeries twice already, she follows up with Orthopedics. She also had steroid injections but continues to have shoulder pain. She has difficulty moving her right shoulder. She is also having bilateral knee pain. Initial history:This is a 61-year-old female with complex past medical history including asthma/COPD, anxiety, depression, migraines, lumbar spinal stenosis who presents for evaluation of diffuse joint pain. Patient has had bilateral knee pain for at least 6 years. She had numerous intra-articular steroid injections without any relief. She used to see Dr. Chance Christina as well as Dr. Mayorga at [place] and was most recently following up with Dr. Lucero. Patient received prednisone in the past for her arthritis without any significant relief. Also the intra-articular steroid injections do not provide any relief. Over the last year she has been having pain of her knuckles, wrists, fingers associated with morning stiffness lasting 2 hours improved with moving her hands around. Continues to have chronic knee pain that is unchanged. She stated that her older sister was diagnosed with rheumatoid arthritis. She was just recently started on prednisone 20 mg Twice daily for asthma attack. She stated that prednisone does not significantly improve her joint pain [facility] Medical History (Updated 10/25/22 @ 12:06 by Nael Yang MD) Spinal stenosis TMJ (dislocation of temporomandibular joint) Migraine COPD (chronic obstructive pulmonary disease) Asthma Depression Anxiety Prediabetes Arthritis of right knee Umbilical hernia Chronic idiopathic constipation Surgical History History of carpal tunnel release Hx of colonoscopy History of esophagogastroduodenoscopy (EGD) Hx of hand surgery H/O eye surgery Hx of hysterectomy Family History Father Bone cancer Mother Diabetes Family/Other Family history of breast cancer Social History Household Members: None Alcohol intake: current Alcohol intake frequency: does not drink Patient Tobacco Use Status: Former Tobacco user Review of Systems [facility] Reports arthralgias, Reports limited range of motion and Reports stiffness Physical Exam Vital Signs: Last Vital Signs Temp 97.7 F 10/25/22 11:30 Pulse 91 10/25/22 11:30 BP 112/58 L 10/25/22 11:30 Pulse Ox 95 10/25/22 11:30 BMI result Body Mass Index 32.3 Const General: cooperative and no acute distress Nutritional Appearance: obese morbidly obese Limitations: ambulation with walker HEENT Head: Yes normocephalic and Yes atraumatic Resp Effort & Inspection: normal respiratory effort and able to speak in complete sentences Extrem Other: Significant right shoulder pain with right shoulder abduction Bilateral knee crepitus Bilateral knee pain with full extension Results Reviewed Results Reviewed: Right hand/ wrist [facility] ultrasound 03/06? Impression:? Mild tenosynovitis of the 2nd extensor compartment Assessment & Plan Assessment & Plan (1) Psoriatic arthritis: Comment: dx 03/06 Right thumb dactylitis 06/04 MTX started 07/04 effective Code(s): L40.50 - Arthropathic psoriasis, unspecified Plan: This is a 62-year-old female with psoriatic arthritis who presents for follow-up. On methotrexate 20 mg weekly. States that the methotrexate is helping especially her hands. However she has been having bilateral knee pain. Labs show high inflammatory markers. Will need to add DMARDs. Discussed risks and benefits of Humira. Patient agreed to proceed. 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 Will monitor patient for side effects with frequent lab work. Advised patient to take folic acid daily to prevent complications of methotrexate. (3) Tendinopathy of right rotator cuff: Code(s): M67.911 - Unspecified disorder of synovium and tendon, right shoulder Plan: S/p multiple surgeries. Follow-up with orthopedics Plan I spent 26 minutes reviewing patient's chart, evaluating patient, ordering diagnostic workup, counseling patient and documenting in the chart Orders: Orders Complete Blood Count Auto Diff 3 Months L40.50 - Arthropathic psoriasis, unspecified Comprehensive Met. 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
== END 2022-10-25 12:02 | disposition home or self-care (01) ==
PROVIDERS: PCP Nurse Practitioner Family; Visit Provider Student in an Organized Health Care Education/Training Program
DX: L40.50 Arthropathic psoriasis, unspecified (principal); Z79.631 Long term (current) use of antimetabolite agent; M67.911 Unspecified disorder of synovium and tendon, right shoulder
CPT/HCPCS: 99214

== ENCOUNTER → 2022-10-25 11:21 | Outpatient (BNVA) | payer OTHER, SELFPAY | PROVIDERS: PCP Nurse Practitioner Family; Visit Provider Student in an Organized Health Care Education/Training Program | DX: Z48.811 Encounter for surgical aftercare following surgery on the nervous system (principal); L40.50 Arthropathic psoriasis, unspecified; M67.911 Unspecified disorder of synovium and tendon, right shoulder; Z79.631 Long term (current) use of antimetabolite agent; Z86.69 Personal history of other diseases of the nervous system and sense organs | CPT/HCPCS: 99212 ==

== ENCOUNTER 2022-10-25 12:10 | Outpatient (AMB) | payer OTHER, SELFPAY ==
--- NOTE | 2022-10-25 12:17 | A.OFFVIS_ITS ---
Intake Intake Visit Reasons: PO RT CTR 10/09/22AR Intake Note: Elizabeth is a 62 year old -- hand dominant female who presents today for a post operative appointment s/p Right Carpal Tunnel Release 10/09/22. Sutures removed, steris applied. Patient instructed to not submerge hand in any water, but it isokay to wash with warm soapy water Allergies cephalexin Allergy (Intermediate, Verified 10/25/22 11:33) Diarrhea Iodinated Contrast Media [IV CONTRAST] Allergy (Intermediate, Verified 10/25/22 11:33) DIFF BREATHING morphine [MORPHINE] Allergy (Intermediate, Verified 10/25/22 11:33) HIVES nabumetone [NABUMETONE] Allergy (Intermediate, Verified 10/25/22 11:33) HIVES sulfamethoxazole [From BACTRIM] Allergy (Intermediate, Verified 10/25/22 11:33) HIVES trimethoprim [From BACTRIM] Allergy (Intermediate, Verified 10/25/22 11:33) HIVES dicloxacillin Allergy (Unknown, Verified 10/25/22 11:33) Rash dyclonine Allergy (Unknown, Verified 10/25/22 11:33) Unknown propranolol [Inderal LA] Allergy (Unknown, Verified 10/25/22 11:33) unknown quetiapine [Seroquel] Allergy (Unknown, Verified 10/25/22 11:33) rash Sulfa (Sulfonamide Antibiotics) Allergy (Unknown, Verified 10/25/22 11:33) hives amoxicillin [From Augmentin] Allergy (Verified 10/25/22 11:33) stomach pain clavulanic acid [From Augmentin] Allergy (Verified 10/25/22 11:33) stomach pain polyethylene glycol [From Golytely] Adverse Reaction (Severe, Verified 10/25/22 11:33) Hallucinations polyethylene glycol 3350 [From Golytely] Adverse Reaction (Severe, Verified 10/25/22 11:33) Hallucinations potassium chloride [From Golytely] Adverse Reaction (Severe, Verified 10/25/22 11:33) Hallucinations sodium [From Golytely] Adverse Reaction (Severe, Verified 10/25/22 11:33) Hallucinations sodium bicarbonate [From Golytely] Adverse Reaction (Severe, Verified 10/25/22 11:33) Hallucinations sodium chloride [From Golytely] Adverse Reaction (Severe, Verified 10/25/22 11:33) Hallucinations sodium sulfate [From Golytely] Adverse Reaction (Severe, Verified 10/25/22 11:33) Hallucinations doxycycline [DOXYCYCLINE] Adverse Reaction (Intermediate, Verified 10/25/22 11:33) NAUSEA & VOMITTING From INDERAL Allergy (Intermediate, Uncoded 10/25/22 11:33) RASH Codeine Sulfate Allergy (Unknown, Uncoded 10/25/22 11:33) Unknown HPI PO RT CTR 10/09/22AR HPI Details The patient is a 62-year-old woman who is status post a right carpal tunnel release on 10/09/2022. She says that she is doing well. She has had some improvement in her sensation. [facility] Medical History (Updated 10/25/22 @ 12:06 by Nael Yang MD) Spinal stenosis TMJ (dislocation of temporomandibular joint) Migraine COPD (chronic obstructive pulmonary disease) Asthma Depression Anxiety Prediabetes Arthritis of right knee Umbilical hernia Chronic idiopathic constipation Surgical History History of carpal tunnel release Hx of colonoscopy History of esophagogastroduodenoscopy (EGD) Hx of hand surgery H/O eye surgery Hx of hysterectomy Family History Father Bone cancer Mother Diabetes Family/Other Family history of breast cancer Social History Household Members: None Alcohol intake: current Alcohol intake frequency: does not drink Patient Tobacco Use Status: Former Tobacco user Physical Exam Extrem Other: The patient was alert oriented and in no acute distress. Her wound is healing well with no erythema drainage or evidence of infection. Sutures were removed and Steri-Strips applied. She can make a fist and extend all of her digits. She still has some numbness in the thumb. All in all sensation appears to be improved per patient. I educated her about the postoperative course. I talked about activity modification and not doing too much for the next couple of weeks. This point she can follow up p.r.n.. Coding Level of Care Code Global (53459)
== END 2022-10-25 13:18 | disposition home or self-care (01) ==
PROVIDERS: PCP Nurse Practitioner Family; Visit Provider Orthopaedic Surgery
DX: Z48.89 Encounter for other specified surgical aftercare (principal)
CPT/HCPCS: 99024

== ENCOUNTER 2022-11-23 10:48 | Inpatient (IN) | payer OTHER, SELFPAY ==
[2022-11-23] VITALS (13 sets, daily range): BP systolic 93–127; BP diastolic 40–78; PULSE 80–118; RESP 16–23; TEMP 37–38.3; O2SAT 91–98; BMI 32.7; BMI 34.2
--- NOTE | ~2022-11-23 | XR_ITS ---
EXAMINATION: XR CHEST CLINICAL INFORMATION: Shortness of breath COMPARISON: None available. TECHNIQUE: 2 views of the chest were obtained. FINDINGS: There is a region of parenchymal density within the left upper lobe consistent with pneumonia. No pneumothorax or pleural effusion. Heart normal size. No evidence of pulmonary edema. XR/XR chest 2V IMPRESSION: Left upper lobe density consistent with pneumonia. Underlying mass is not excluded and follow-up study in 4-6 weeks is recommended.
--- NOTE | 2022-11-23 11:02 | ED_ITS ---
HPI - General Adult General Chief complaint: Upper Respiratory Symptoms Stated complaint: upper respiratory problems Time Seen by Provider: 11/23/22 15:44 Source: patient Mode of arrival: ambulatory Limitations: no limitations History of Present Illness HPI narrative: Patient is a 62-year-old female with history of asthma, COPD, prediabetes presenting to the emergency department from [facility] complaining of cough and shortness of breath for 2 days. Reports she is unsure if she has had fever, as her temperature has not been checked at [facility]. Denies chills. States that she was recently inpatient at [facility] for depression. Reports chest pain only with coughing. Denies ear pain, sore throat. Denies abdominal pain, nausea, vomiting, or diarrhea. MD complaint: cough, shortness of breath Onset (ago): day(s) Location: chest Pain Consistency: intermittent (only with coughing) Associated symptoms: cough and shortness of breath Treatments prior to arrival: none Related Data Home Medications Medication Instructions Recorded Confirmed carbamazepine 400 mg 400 mg PO BID 02/11/20 09/08/22 tablet,extended release,12 hr (Tegretol XR) cholecalciferol (vitamin D3) 50 50 mcg PO DAILY 02/11/20 09/08/22 mcg (2,000 unit) capsule montelukast 10 mg tablet 10 mg PO BEDTIME 02/11/20 09/08/22 (Singulair) aspirin 81 mg tablet,delayed 81 mg PO DAILY 07/05/21 09/08/22 release fexofenadine 180 mg tablet 0 mg PO BID 08/30/21 09/08/22 estradiol 1 mg tablet 1 mg PO DAILY 01/13/22 09/08/22 lisinopril 10 mg tablet 10 mg PO DAILY 01/13/22 09/08/22 topiramate 50 mg tablet 50 mg PO BID 01/13/22 09/08/22 gabapentin 800 mg tablet 800 mg PO TID 05/12/22 09/08/22 meclizine 25 mg tablet 25 mg PO QID 05/12/22 09/08/22 prazosin 2 mg capsule 2 mg PO BEDTIME PRN 05/12/22 09/08/22 risperidone 3 mg tablet (Risperdal) 3 mg PO BID 05/12/22 09/08/22 aripiprazole 15 mg tablet 15 mg PO DAILY 05/30/22 09/08/22 fluticasone 500 mcg-salmeterol 50 1 ea inhalation BID 05/30/22 09/08/22 mcg/dose blistr powdr for inhalation metformin 500 mg tablet 500 mg PO BID 05/30/22 09/08/22 omalizumab 150 mg/mL subcutaneous mg subcut 05/30/22 09/08/22 syringe (Xolair) omalizumab 75 mg/0.5 mL mg subcut 05/30/22 09/08/22 subcutaneous syringe (Xolair) vitamin B complex (Vitamins B 1 cap PO DAILY 05/30/22 09/08/22 Complex capsule) pseudoephedrine HCl 30 mg tablet 30 mg PO 08/02/22 09/08/22 (Sudogest) ropinirole 1 mg tablet 1 mg PO BID 08/02/22 09/08/22 topiramate 100 mg tablet 100 mg PO BID 08/02/22 09/08/22 umeclidinium 62.5 mcg/actuation 1 inh inhalation DAILY 08/02/22 09/08/22 blister powder for inhalation (Incruse Ellipta) albuterol sulfate 90 mcg/actuation 2 puff inhalation Q4H PRN 09/08/22 09/08/22 aerosol inhaler (Ventolin HFA) melatonin 3 mg tablet 9 mg PO BEDTIME 09/08/22 09/08/22 sumatriptan succinate 100 mg tablet 100 mg PO DAILY PRN 09/08/22 09/08/22 cephalexin 500 mg capsule 500 mg PO QID 10/25/22 Previous Rx's Medication Instructions Recorded ondansetron 4 mg disintegrating 4 mg PO Q8H PRN nausea and 03/26/22 tablet vomiting #10 tabs sodium sul 1.479 gram-potas ch See Rx Instructions PO PER PKG DIR 08/02/22 0.188 gram-magnes sul 0.225 gram #24 tabs tablet (Sutab) folic acid 1 mg tablet 1 mg PO DAILY #90 tabs 09/08/22 methotrexate sodium 2.5 mg tablet 20 mg (8 x 2.5 mg) PO QWEEK #96 09/08/22 tabs oxycodone-acetaminophen 5 mg-325 1 tab PO Q6H PRN pain #5 tabs 08/28/23 mg tablet Humira(CF) Pen 40 mg/0.4 mL See Rx Instructions subcut 10/31/22 subcutaneous kit (adalimumab) .COMPLEX #2 ea pantoprazole 40 mg tablet,delayed 40 mg PO BID #60 tabs 11/03/22 release Allergies Allergy/AdvReac Type Severity Reaction Status Date / Time cephalexin Allergy Intermediate Diarrhea Verified 11/23/22 10:58 Iodinated Contrast Media Allergy Intermediate DIFF Verified 11/23/22 10:58 [IV CONTRAST] BREATHING morphine [MORPHINE] Allergy Intermediate HIVES Verified 11/23/22 10:58 nabumetone [NABUMETONE] Allergy Intermediate HIVES Verified 11/23/22 10:58 sulfamethoxazole Allergy Intermediate HIVES Verified 11/23/22 10:58 [From BACTRIM] trimethoprim [From BACTRIM] Allergy Intermediate HIVES Verified 11/23/22 10:58 dicloxacillin Allergy Unknown Rash Verified 11/23/22 10:58 dyclonine Allergy Unknown Unknown Verified 11/23/22 10:58 propranolol [Inderal LA] Allergy Unknown unknown Verified 11/23/22 10:58 quetiapine [Seroquel] Allergy Unknown rash Verified 11/23/22 10:58 Sulfa (Sulfonamide Allergy Unknown hives Verified 11/23/22 10:58 Antibiotics) amoxicillin [From Augmentin] Allergy stomach Verified 11/23/22 10:58 pain clavulanic acid Allergy stomach Verified 11/23/22 10:58 [From Augmentin] pain polyethylene glycol AdvReac Severe Hallucinati Verified 11/23/22 10:58 [From Golytely] ons polyethylene glycol 3350 AdvReac Severe Hallucinati Verified 11/23/22 10:58 [From Golytely] ons potassium chloride AdvReac Severe Hallucinati Verified 11/23/22 10:58 [From Golytely] ons sodium [From Golytely] AdvReac Severe Hallucinati Verified 11/23/22 10:58 ons sodium bicarbonate AdvReac Severe Hallucinati Verified 11/23/22 10:58 [From Golytely] ons sodium chloride AdvReac Severe Hallucinati Verified 11/23/22 10:58 [From Golytely] ons sodium sulfate AdvReac Severe Hallucinati Verified 11/23/22 10:58 [From Golytely] ons doxycycline [DOXYCYCLINE] AdvReac Intermediate NAUSEA & Verified 11/23/22 10:58 VOMITTING From INDERAL Allergy Intermediate RASH Uncoded 11/23/22 10:58 Codeine Sulfate Allergy Unknown Unknown Uncoded 11/23/22 10:58 Review of Systems 2 Review of Systems: As per HPI. Yes all other systems are reviewed and are negative Constitutional: Constitutional: Reports as per HPI [facility] Past Medical History Medical History (Updated 11/23/22 @ 17:43 by Lilia Garcia NP) Spinal stenosis TMJ (dislocation of temporomandibular joint) Migraine COPD (chronic obstructive pulmonary disease) Asthma Depression Anxiety Prediabetes Arthritis of right knee Umbilical hernia Chronic idiopathic constipation Surgical History History of carpal tunnel release Hx of colonoscopy History of esophagogastroduodenoscopy (EGD) Hx of hand surgery H/O eye surgery Hx of hysterectomy Family History Family History Father Bone cancer Mother Diabetes Family/Other Family history of breast cancer Social History Social History Household Members: None Alcohol intake: current Alcohol intake frequency: does not drink Patient Tobacco Use Status: Former Tobacco user Smoked in Last 30 Days: No Use of substances other than those prescribed or required for medical reasons: No Advance Directives: No Advance Directives Information Provided: No Physical Exam ED Vital Signs: Vital Signs - 24 hr 11/23/22 10:59 11/23/22 15:45 11/23/22 15:45 Temperature 99.5 F 100.2 F Pulse Rate 118 H 97 Respiratory Rate 22 H 20 Blood Pressure 108/78 109/40 L Pulse Oximetry 91 L 95 95 Oxygen Delivery Method Room Air Room Air Room Air 11/23/22 16:06 11/23/22 17:12 Temperature 100.9 F H Pulse Rate 88 98 Respiratory Rate 18 Blood Pressure 113/51 L Pulse Oximetry 95 Oxygen Delivery Method Room Air BMI result Body Mass Index 32.7 Vital signs have been reviewed and appear to be correct. Blood pressure normal initially, MAP low on repeat reading. Heart rate normal, initially tachycardic. Respiratory rate mildly elevated initially, now normal. Temperature normal but increasing. Oxygen saturation low initially, improved now. Const General: cooperative, healthy appearing and no acute distress Orientation/consciousness: oriented to person, oriented to place, oriented to time and patient oriented x3 Limitations: no limitations HENMT Head: Yes normocephalic and Yes atraumatic Ears: external ears normal General nose exam: Normal external nose present Face and sinus: Yes face symmetric Mouth: oropharynx normal and moist mucous membranes Throat: Yes uvula midline Eyes Pupils: Equal, round and reactive pupils present Neck Neck: Yes normal visual inspection and Yes supple Chest Chest palpation & inspection: normal inspection of the chest and normal palpation of entire chest wall Resp Effort & Inspection: normal respiratory effort and able to speak in complete sentences Auscultation: wheezes expiratory wheezes and inspiratory wheezes Cardio Rate: regular rate Rhythm: regular rhythm Heart sounds: S1 normal heart sound present and S2 normal heart sound present GI Palpation (GI): Soft to palpation and nontender Auscultation: normoactive bowel sounds General: Yes no CVA tenderness Back/Spine/Pelvis Back: no CVA tenderness Skin General skin exam: elasticity normal and turgor normal Neuro General: oriented to person, oriented to place, oriented to time, patient oriented x3, moves all extremities, no focal motor deficits and CN's II-XI intact bilaterally Cranial nerves: Yes Equal, round and reactive pupils present Cognition (Neuro): normal cognition Extrem General: Yes full ROM, Yes no pedal edema and Yes no calf tenderness Psych Mental Status: mental status grossly normal Affect: normal affect Thought process: Normal thought process present Course Course Course Narrative: RME- 62-year-old female presents for evaluation cough congestion, shortness of breath chest pain. Plan for COVID swab and chest x-ray Medications Administered Generic Name Dose Route Start Last Admin Trade Name Freq PRN Reason Stop Dose Admin Levofloxacin 750 mg in 150 mls @ 100 mls/hr 11/23/22 16:28 11/23/22 17:00 Levaquin IV 11/23/22 17:57 100 mls/hr ONCE ONE Administration Sodium Chloride 1,000 mls @ 999 mls/hr 11/23/22 17:15 11/23/22 17:00 Ns IV 11/23/22 18:15 999 mls/hr .Q1H1M DAGMAR Administration Discontinued Medications Generic Name Dose Route Start Last Admin Trade Name Freq PRN Reason Stop Dose Admin Acetaminophen 650 mg 11/23/22 16:37 11/23/22 17:27 Acetaminophen 325 Mg Tablet PO 11/23/22 16:38 650 mg ONCE ONE Administration Albuterol Sulfate 2.5 mg/ 0 mg 11/23/22 16:01 11/23/22 16:06 Albuterol/Ipratropium 3 ml INHALE 11/23/22 16:02 2.5 dose ONCE ONE Administration Medical Decision Making Medical Decision Making [facility] Narrative: 16:00 Patient is a 62-year-old female with history of asthma, COPD, prediabetes presenting to the emergency department from [facility] complaining of cough and shortness of breath for 2 days. On exam patient is awake, A+Ox3, BP low, heart rate initially tachycardic now improved, oxygen saturation initially low, now improved, temperature increasing, normal respiratory rate, normal neurological exam without focal deficits, physical exam findings as above. Given reported symptoms and physical exam findings, initial differential includes pneumonia, asthma exacerbation, COPD exacerbation, bronchitis, viral illness. Concern for sepsis as patient initially tachycardic, hypoxic. IV antibiotics and 30 mL/kg fluids ordered based on adjusted ideal body weight. LR ordered initially as patient has documented allergy to saline, however, patient reports this is erroneous and has tolerated normal saline in the past. X-ray notable for left upper lobe density consistent with pneumonia. My interpretation is in agreement with the radiologist's interpretation. Covid test negative. 17:18: Labs notable for leukocytosis of 26.4 with left shift, anemia with H&H of 8.2/26.4. She reports that she was having vaginal bleeding while recently inpatient at [facility] but states she has had a total hysterectomy. Denies known hematochezia or melena. Normal lactate. Mild hyponatremia, patient is receiving NS. No other significant electrolyte abnormalities. [place] text to KINA Sanchez who accepts admission. [place] Body Weight and Adjusted Body Weight from [employer] on 11/23/2022 All calculations should be rechecked by clinician prior to use RESULT SUMMARY: 105 lbs [place] Body Weight Equivalent to 48 kg Actual body weight is 165% (1.6x) ideal body weight 132 lbs Adjusted Body Weight Equivalent to 60 kg INPUTS: Sex ?> 1 = Female Height ?> 61 in Actual body weight ?> 78.5 kg Differential Diagnosis Differential Diagnoses: The differential diagnosis associated with the presentation includes As per [facility] Admission/Observation Consideration of admission/observation: Escalation of care including admission/observation considered Consult Healthcare Provider Management of the patient was discussed with: Hospitalist (KINA Sanchez) Lab Data [facility] Lab Attestation statement: I reviewed the patient's lab results. As per [facility]. 11/23/22 16:54 11/23/22 16:54 Labs: Lab Results 11/23/22 11/23/22 Range/Units 11:04 16:54 WBC 26.4 H (4.8-10.8) X10*3/uL RBC 3.33 L D (4.20-5.50) X10*6/uL Hgb 8.2 L D (12.0-16.0) g/dl Hct 26.4 L D (37.0-47.0) % MCV 79.3 L (80.0-98.0) fL MCH 24.6 L (27.0-33.0) pg MCHC 31.1 (31.0-35.0) g/dl RDW 17.6 H (11.0-16.0) % Plt Count 355 (160-400) X10*3/uL MPV 9.1 L (9.4-12.3) fL Immature Gran % (Auto) 0.7 H (0.0-0.4) % Neut % (Auto) 76.4 H (45-73) % Lymph % (Auto) 11.7 L (20-40) % Swisher % (Auto) 10.9 (2-11) % Eos % (Auto) 0.0 (0-4) % Baso % (Auto) 0.3 (0-2) % Lymph # (Auto) 3.1 (1.2-4.9) X10*3/uL Swisher # (Auto) 2.9 H (0.1-1.2) X10*3/uL Eos # (Auto) 0.0 (0.0-0.4) X10*3/uL Baso # (Auto) 0.1 (0.0-0.2) X10*3/uL Abs Immat Gran (auto) 0.19 H (0.00-0.03) X10*3/uL Absolute Neuts (auto) 20.2 H (2.0-8.3) x10*3/uL Absolute Nucleated RBC 0.000 (0.0-0.012) X10*3/uL Nucleated RBC % (auto) 0.0 (0.0-0.2) /100WBC Sodium 132 L (135-145) mmol/L Potassium 4.4 (3.3-5.1) mmol/L Chloride 100 (96-108) mmol/L Carbon Dioxide 20 L (22-29) mmol/L Anion Gap 16 (12-20) BUN 29 H (9-16) mg/dL Creatinine 0.98 (0.5-1.4) mg/dL Estim Creat Clear Calc 57.9 Estimated GFR 58 Random Glucose 114 (60-115) mg/dL Lactic Acid 0.8 (0.5-2.0) mmol/L Calcium 9.0 (8.4-10.2) mg/dL Total Bilirubin 0.3 (0.0-1.0) mg/dL AST 16 (5-31) U/L ALT 16 (0-31) U/L Alkaline Phosphatase 91 (39-117) U/L Total Protein 6.6 (6.5-8.0) g/dL Albumin 3.5 (3.5-5.0) g/dL COVID-19 (DHIRAJ) Negative (Negative) COVID-19 Clin Com See Note Independent Interpretation I performed an independent interpretation of an: EKG and Plain X-Ray Interpretation: Normal sinus rhythm, rate 98bpm, normal NV and QT intervals, no evidence of STEMI Left upper lobe pneumonia Radiology Impression Discussion of test interpretation with radiology: I have reviewed the radiologist's reading. Radiologist Impression: XR/XR chest 2V IMPRESSION: Left upper lobe density consistent with pneumonia. Underlying mass is not excluded and follow-up study in 4-6 weeks is recommended. External Record Review External record reviewed: Inpatient record, Office record and Outpatient record Prescription Management I considered prescription management with: Antibiotic Critical Care Time Critical Care Time Critical Care Time: Yes Total Critical Care Time: 40 Attestation: I have personally provided critical care time exclusive of time spent on separately billable procedures. Time includes review of lab data, radiology results, discussion with consultants, and monitoring for potential decompensation. Intervention performed as documented. Discharge Plan Discharge Clinical Impression: Left upper lobe pneumonia Qualifiers: Pneumonia type: due to unspecified organism Qualified Code(s): J18.9 - Pneumonia, unspecified organism Sepsis Qualifiers: Sepsis type: sepsis due to unspecified organism Sepsis acute organ dysfunction status: unspecified Qualified Code(s): A41.9 - Sepsis, unspecified organism Patient Disposition: Admitted As Inpatient
[2022-11-23 11:30] LABS: COVID-19 Test Negative (Negative); IDNOW Serial# BCCEAD1C
[2022-11-23] MEDS: Albuterol Sulfate 2.5 MG, Albuterol/Iprat 2.5/0.5MG 3 ML 3 ML INHALE (16:06)
--- NOTE | 2022-11-23 16:29 | ECG_ITS ---
Test Reason : DYSPNEA Blood Pressure : / mmHG Vent. Rate : 098 BPM Atrial Rate : 098 BPM P-R Int : 168 ms QRS Dur : 078 ms QT Int : 336 ms P-R-T Axes : 041 050 079 degrees QTc Int : 428 ms Normal sinus rhythm Low voltage QRS RSR' or QR pattern in V1 suggests right ventricular conduction delay Borderline ECG No previous ECGs available Referred By: Lilia Garcia Electronically Signed By:SELWYN SALINAS MD
--- NOTE | 2022-11-23 16:38 | PC.NURSE ---
provider justina lopez rn's have tried for blood and IV- [employer] reaching out to a PA to assist w/US-guided
--- NOTE | 2022-11-23 16:40 | PC.NURSE ---
KINA Davidson at bedside to place US IV as pt difficult stick and 2 nurses have tried for both bloodwork and IV access prior to this.,
--- NOTE | 2022-11-23 16:58 | PC.NURSE ---
labs all sent including x2 sets of BC's
[2022-11-23] MEDS: levoFLOXacin/D5W 750 MG/150 ML PIGGYBACK 100 MG IV (17:00)
[2022-11-23] MEDS: 0.9 % Sodium Chloride 1,000 ML 999 ML IV ×2 (17:00→18:05)
[2022-11-23 17:05] LABS: Basophils Absolute Auto 0.1 X10*3/uL (0.0-0.2); Basophils Percent Auto 0.3 % (0-2); Hematocrit 26.4 % (37.0-47.0); Hemoglobin 8.2 g/dl (12.0-16.0); Imm Gran Abs Auto 0.19 X10*3/uL (0.00-0.03); Imm Gran Pct Auto 0.7 % (0.0-0.4); Lymphocytes Absolute Auto 3.1 X10*3/uL (1.2-4.9); Lymphocytes Percent Auto 11.7 % (20-40); MANUAL DIFF FLAG SCAN; Mean Corpuscular HGB Conc 31.1 g/dl (31.0-35.0); Mean Corpuscular Hemoglobin 24.6 pg (27.0-33.0); Mean Corpuscular Volume 79.3 fL (80.0-98.0); Mean Platelet Volume 9.1 fL (9.4-12.3); Monocytes Absolute Auto 2.9 X10*3/uL (0.1-1.2); Monocytes Percent Auto 10.9 % (2-11); Neutrophils Absolute Auto 20.2 x10*3/uL (2.0-8.3); Neutrophils Percent Auto 76.4 % (45-73); Platelet Count 355 X10*3/uL (160-400); Red Blood Count 3.33 X10*6/uL (4.20-5.50); Red Cell Distribution Width 17.6 % (11.0-16.0); SCAN SMEAR FLAG 1; White Blood Count 26.4 X10*3/uL (4.8-10.8)
[2022-11-23 17:16] LABS: Lactic Acid 0.8 mmol/L (0.5-2.0)
[2022-11-23 17:21] LABS: Alanine Aminotransferase 16 U/L (0-31); Albumin Level 3.5 g/dL (3.5-5.0); Alkaline Phosphatase 91 U/L (39-117); Anion Gap 16 (12-20); Aspartate Amino Transferase 16 U/L (5-31); Bilirubin Total 0.3 mg/dL (0.0-1.0); Blood Urea Nitrogen 29 mg/dL (9-16); Carbon Dioxide 20 mmol/L (22-29); Chloride 100 mmol/L (96-108); Creatinine Clr Calc Pharmacy 57.9; Estimated Glomerular Filt Rate 58; Glucose Random 114 mg/dL (60-115); Potassium 4.4 mmol/L (3.3-5.1); Sodium 132 mmol/L (135-145); Total Protein 6.6 g/dL (6.5-8.0)
--- NOTE | 2022-11-23 17:21 | PC.NURSE ---
palliative senior np jimbo roberts at bedside- aware pt spo2 in low 90'%s at time- currently 92-95% o2% when sleeping, 97% when talking. full sentences w/o distress. BP stable MAP 71.
[2022-11-23] MEDS: Acetaminophen 325 MG TABLET 650 MG PO (17:27)
[2022-11-23 18:00] LABS: SLIDE REVIEW VERIFIED
[2022-11-23 18:07] LABS: OBS Int Ctl Valid YES; OBS1 NEGATIVE (NEGATIVE)
--- NOTE | 2022-11-23 18:29 | PC.NURSE ---
resting. full sentences w/o issue. no distress
--- NOTE | 2022-11-23 19:14 | PM.IMHP ---
History of Present Illness Date of Service: 11/23/22 Chief Complaint: Cough and dyspnea This is a 62-year-old female with pertinent history of mood disorder, essential hypertension, fay-dzdeiap-hpnbsazsp diabetes mellitus, COPD not on home oxygen, migraine, unspecified arthritis who presents to the emergency department for evaluation of cough and dyspnea. Patient states she has been having productive cough that started 2 days prior to presentation. It has been constant, progressive and without any relieving factors. It is associated with dyspnea, worse with exertion. Patient is unsure if she has had a fever. No chest discomfort, chills, abdominal pain, palpitations, changes in urinary or bowel habits. In the emergency department, patient was found to be septic and imaging concerning for pneumonia Review of Systems Constitutional: Constitutional: Reports fatigue and Reports lethargy Cardiovascular: Cardiovascular: Reports dyspnea on exertion Respiratory: Respiratory: Reports cough and Reports dyspnea on exertion Gastrointestinal: Gastrointestinal: Reports no additional gastrointestinal complaints Genitourinary: Genitourinary: Reports no additional female genitourinary complaints Endocrine: Endocrine: Reports fatigue PMFSH Medical History Spinal stenosis TMJ (dislocation of temporomandibular joint) Migraine COPD (chronic obstructive pulmonary disease) Asthma Depression Anxiety Prediabetes Arthritis of right knee Umbilical hernia Chronic idiopathic constipation Family History Father Bone cancer Mother Diabetes Family/Other Family history of breast cancer Surgical History History of carpal tunnel release Hx of colonoscopy History of esophagogastroduodenoscopy (EGD) Hx of hand surgery H/O eye surgery Hx of hysterectomy Social History Household Members: None Alcohol intake: current Alcohol intake frequency: does not drink Patient Tobacco Use Status: Former Tobacco user Smoked in Last 30 Days: No Use of substances other than those prescribed or required for medical reasons: No Advance Directives: No Advance Directives Information Provided: No Meds Allergies Allergy/AdvReac Type Severity Reaction Status Date / Time cephalexin Allergy Intermediate Diarrhea Verified 11/23/22 10:58 Iodinated Contrast Media Allergy Intermediate DIFF Verified 11/23/22 10:58 [IV CONTRAST] BREATHING morphine [MORPHINE] Allergy Intermediate HIVES Verified 11/23/22 10:58 nabumetone [NABUMETONE] Allergy Intermediate HIVES Verified 11/23/22 10:58 sulfamethoxazole Allergy Intermediate HIVES Verified 11/23/22 10:58 [From BACTRIM] trimethoprim [From BACTRIM] Allergy Intermediate HIVES Verified 11/23/22 10:58 dicloxacillin Allergy Unknown Rash Verified 11/23/22 10:58 dyclonine Allergy Unknown Unknown Verified 11/23/22 10:58 propranolol [Inderal LA] Allergy Unknown unknown Verified 11/23/22 10:58 quetiapine [Seroquel] Allergy Unknown rash Verified 11/23/22 10:58 Sulfa (Sulfonamide Allergy Unknown hives Verified 11/23/22 10:58 Antibiotics) amoxicillin [From Augmentin] Allergy stomach Verified 11/23/22 10:58 pain clavulanic acid Allergy stomach Verified 11/23/22 10:58 [From Augmentin] pain polyethylene glycol AdvReac Severe Hallucinati Verified 11/23/22 10:58 [From Golytely] ons polyethylene glycol 3350 AdvReac Severe Hallucinati Verified 11/23/22 10:58 [From Golytely] ons potassium chloride AdvReac Severe Hallucinati Verified 11/23/22 10:58 [From Golytely] ons sodium [From Golytely] AdvReac Severe Hallucinati Verified 11/23/22 10:58 ons sodium bicarbonate AdvReac Severe Hallucinati Verified 11/23/22 10:58 [From Golytely] ons sodium chloride AdvReac Severe Hallucinati Verified 11/23/22 10:58 [From Golytely] ons sodium sulfate AdvReac Severe Hallucinati Verified 11/23/22 10:58 [From Golytely] ons doxycycline [DOXYCYCLINE] AdvReac Intermediate NAUSEA & Verified 11/23/22 10:58 VOMITTING From INDERAL Allergy Intermediate RASH Uncoded 11/23/22 10:58 Codeine Sulfate Allergy Unknown Unknown Uncoded 11/23/22 10:58 Active Medications: Current Medications Acetaminophen (Acetaminophen 325 Mg Tablet) 650 mg PO Q6H PRN PRN Reason: Pain, Mild (Pain Scale 1-3) Acetaminophen (Acetaminophen Supp 650 Mg Supp.Rect) 650 mg MA Q6H PRN PRN Reason: Pain, Mild (Pain Scale 1-3) Enoxaparin Sodium (Enoxaparin Sodium 40 Mg/0.4 Ml Syringe) 40 mg SUBCUT Q24H [facility] Melatonin (Melatonin 3 Mg Tablet) 6 mg PO BEDTIME PRN PRN Reason: Insomnia Ondansetron HCl (Ondansetron Hcl 4 Mg/2 Ml Vial) 4 mg IVPUSH Q8H PRN PRN Reason: Nausea and Vomiting Sodium Chloride (0.9 % Sodium Chloride Flush 3 Ml Syringe) 3 ml IVFLUSH QSHIFT [facility] Home Medications Medication Instructions Recorded Confirmed Last Taken Type carbamazepine 400 mg 400 mg PO BID 02/11/20 11/23/22 Unknown History tablet,extended release,12 hr (Tegretol XR) cholecalciferol (vitamin D3) 50 50 mcg PO DAILY 02/11/20 11/23/22 Unknown History mcg (2,000 unit) capsule montelukast 10 mg tablet 10 mg PO BEDTIME 02/11/20 11/23/22 Unknown History (Singulair) aspirin 81 mg tablet,delayed 81 mg PO DAILY 07/05/21 11/23/22 Unknown History release fexofenadine 180 mg tablet 180 mg PO BID 08/30/21 11/23/22 Unknown History estradiol 1 mg tablet 1 mg PO DAILY 01/13/22 11/23/22 Unknown History lisinopril 10 mg tablet 10 mg PO DAILY 01/13/22 11/23/22 Unknown History meclizine 25 mg tablet 25 mg PO QID 05/12/22 11/23/22 Unknown History prazosin 2 mg capsule 2 mg PO DAILY PRN Agitation 05/12/22 11/23/22 Unknown History risperidone 3 mg tablet (Risperdal) 3 mg PO BID 05/12/22 11/23/22 Unknown History aripiprazole 15 mg tablet 15 mg PO DAILY 05/30/22 11/23/22 Unknown History fluticasone 500 mcg-salmeterol 50 1 ea inhalation BID 05/30/22 11/23/22 Unknown History mcg/dose blistr powdr for inhalation metformin 500 mg tablet 500 mg PO BID 05/30/22 11/23/22 Unknown History omalizumab 150 mg/mL subcutaneous mg subcut 05/30/22 09/08/22 Unknown History syringe (Xolair) omalizumab 75 mg/0.5 mL mg subcut 05/30/22 09/08/22 Unknown History subcutaneous syringe (Xolair) vitamin B complex (Vitamins B 1 cap PO DAILY 05/30/22 11/23/22 Unknown History Complex capsule) topiramate 100 mg tablet 150 mg PO BID 08/02/22 11/23/22 Unknown History umeclidinium 62.5 mcg/actuation 1 inh inhalation DAILY 08/02/22 11/23/22 Unknown History blister powder for inhalation (Incruse Ellipta) albuterol sulfate 90 mcg/actuation 2 puff inhalation Q4H PRN Wheezing 09/08/22 11/23/22 Unknown History aerosol inhaler (Ventolin HFA) melatonin 3 mg tablet 9 mg PO BEDTIME 09/08/22 11/23/22 Unknown History sumatriptan succinate 100 mg tablet 100 mg PO DAILY PRN Migraine 09/08/22 11/23/22 Unknown History Headache ascorbic acid (vitamin C) 250 mg 500 mg PO DAILY 11/23/22 11/23/22 Unknown History chewable tablet (Vitamin C) diclofenac sodium 1 % topical gel 1 g topical QID PRN Pain 11/23/22 11/23/22 Unknown History dicyclomine 10 mg capsule 10 mg PO Q6H PRN GI UPSET 11/23/22 11/23/22 Unknown History docusate sodium 100 mg capsule 100 mg PO BID 11/23/22 11/23/22 Unknown History gabapentin 300 mg capsule 600 mg PO TID 11/23/22 11/23/22 Unknown History lactase 3,000 unit tablet 3,000 - 6,000 unit PO TIDAC PRN 11/23/22 11/23/22 Unknown History DAIRY INTOLERANCE multivitamin with folic acid 400 1 tab PO DAILY 11/23/22 11/23/22 Unknown History mcg tablet (Daily-Maikel (with folic acid)) prazosin 2 mg capsule 4 mg PO BEDTIME 11/23/22 11/23/22 Unknown History Physical Exam Vital Signs and Narrative: Vital Signs: Last Vital Signs Temp 99.3 F 11/23/22 17:44 Pulse 95 11/23/22 17:44 Resp 23 H 11/23/22 17:44 BP 110/52 L 11/23/22 18:09 Pulse Ox 96 11/23/22 18:09 O2 Del Method Room Air 11/23/22 18:09 BMI result Body Mass Index 32.7 Middle-aged female lying in bed in no distress Neck supple, no JVD Regular rate and rhythm, S1-S2 heard Left-sided crackles without wheezing Abdomen soft nontender, no guarding, no rigidity Patient is drowsy and awakens to verbal stimulus, oriented to place and time Psych: Lethargic No pedal edema Results Labs 11/23/22 16:54 11/23/22 16:54 Labs: Laboratory Results - last 24 hr 11/23/22 11/23/22 11/23/22 11:04 16:54 17:59 MCV 79.3 L MCH 24.6 L MCHC 31.1 RDW 17.6 H Plt Count 355 MPV 9.1 L Immature Gran % (Auto) 0.7 H Neut % (Auto) 76.4 H Lymph % (Auto) 11.[address] [place] % (Auto) 10.9 Eos % (Auto) 0.0 Baso % (Auto) 0.3 Lymph # (Auto) 3.1 [place] # (Auto) 2.9 H Eos # (Auto) 0.0 Baso # (Auto) 0.1 Abs Immat Gran (auto) 0.19 H Absolute Neuts (auto) 20.2 H Absolute Nucleated RBC 0.000 Nucleated RBC % (auto) 0.0 Smear Tech's Comments VERIFIED Anion Gap 16 Estim Creat Clear Calc 57.9 Estimated GFR 58 Random Glucose 114 Lactic Acid 0.8 Calcium 9.0 Total Bilirubin 0.3 AST 16 ALT 16 Alkaline Phosphatase 91 Total Protein 6.6 Albumin 3.5 Stool Occult Blood NEGATIVE COVID-19 (DHIRAJ) Negative COVID-19 Clin Com See Note Imaging Radiologist's Impressions: Impressions Chest X-Ray 11/23/22 11:15 IMPRESSION: Left upper lobe density consistent with pneumonia. Underlying mass is not excluded and follow-up study in 4-6 weeks is recommended. Assessment and Plan (1) Sepsis: Qualifiers: Sepsis acute organ dysfunction status: unspecified Sepsis type: sepsis due to unspecified organism Qualified Code(s): A41.9 - Sepsis, unspecified organism Status: Acute (2) Left upper lobe pneumonia: Qualifiers: Pneumonia type: due to unspecified organism Qualified Code(s): J18.9 - Pneumonia, unspecified organism Status: Acute Plan This is a 62-year-old female with pertinent history of mood disorder, essential hypertension, bos-onaktpd-oyqormnby diabetes mellitus, COPD not on home oxygen, migraine, unspecified arthritis who presents to the emergency department for evaluation of cough and dyspnea. #. Sepsis due to left-sided pneumonia. Resuscitated with IV crystalloids. Blood culture and sputum culture pending. Lactic acid obtained. Initiating empiric IV antibiotics for CAP #. Essential hypertension. Hold antihypertensives in the setting of sepsis #. COPD. No exacerbation during admission. Continue home inhalers #. Gfp-iptsfcm-ouniiofny diabetes mellitus. Hold metformin. Initiating Accu-Cheks with sliding scale insulin #. Microcytic anemia. Obtaining iron panel #. Mood disorder. Continue home mood stabilizers #. Unspecified arthritis: Long-term use of methotrexate Med rec pending DVT prophylaxis: Lovenox Full code Admit as inpatient and will require two night minimum hospital stay for IV antibiotics Time Spent With Patient Time: Total time managing care of this patient today ____ minutes. Quality Stroke Does the patient have a stroke diagnosis?: No VTE Prior VTE?: No VTE Risk Level:: Medical - moderate - high VTE Device Contraindication: Treatment Not Indicated VTE Drug Contraindication: N/A - Med Ordered
--- NOTE | 2022-11-23 19:27 | PC.NURSE ---
MD Alba notified via page 96/54 with MAP 68, hr 80s, spo2 92-94%s, rr 17, and pt nodding off and very tired per pt report when trying to do med rec with pharmacist/nurse. +[facility] at this time.
--- NOTE | 2022-11-23 19:34 | PHA.MEDREC ---
Pharmacy Consult ? Medication Reconciliation Pharmacy has completed the medication reconciliation. Patient is unarousable. She slightly wakes up and mumbles I'm tired. Med rec done by claim history. Geno Hollis, PharmD
[2022-11-23] MEDS: cefTRIAXone sodium 1 GM in 0.9 % Sodium Chloride 50 ML IV (19:50)
--- NOTE | 2022-11-23 20:05 | PC.NURSE ---
md notified pt etco2 24-. somnolent. needed sternal rub to awaken pt and pt nodded back off to sleep. md ordering ABG. +CMS.
[2022-11-23] MEDS: Lactated Ringers 1,000 ML 100 ML IVCONT (20:23)
--- NOTE | 2022-11-23 20:35 | PC.NURSE ---
[place] on [address] notified pt will need waste picker to go to floor as this rn now notified no transport is on for ed to floor. pt ABG complete and sent by RT- pt alert now, able to talk w/RN. pt alert, awake.
[2022-11-23 20:37] LABS: ABG Base Excess -4.6 mmol/L; ABG HCO3 19 mmol/L (22-26); ABG pCO2 29 mmHg (32-45); ABG pH 7.41 (7.35-7.45); ABG pO2 92 mmHg (83-108)
--- NOTE | 2022-11-23 20:40 | PC.NURSE ---
pt to floor with x2 floor staff to go up in stretcher. pt alert, talking, no respiratory distress. +CMS. no lethargy. aox4.
[2022-11-23 20:44] LABS: Iron 14 mcg/dL (30-160); Percent Iron Saturation 5 % (15-50); Total Iron Binding Capacity 280 mcg/dL (228-428); Unsaturated Iron Binding 266 ug/dL
[2022-11-23 21:02] LABS: Glucose, Whole Blood 81 mg/dL (60-115)
[2022-11-23] MEDS: Enoxaparin Sodium 40 MG/0.4 ML SYRINGE SUBCUT (21:19)
[2022-11-23] MEDS: Azithromycin 500 MG in 0.9 % Sodium Chloride 250 ML 125 MG IV (21:20)
[2022-11-23 21:56] LABS: Glucose, Whole Blood 126 mg/dL (60-115)
[2022-11-24] VITALS (9 sets, daily range): BP systolic 108–127; BP diastolic 52–60; PULSE 82–102; RESP 17–20; TEMP 36.4–36.8; O2SAT 94–96
[2022-11-24] MEDS: Topiramate 25 MG TABLET 150 MG PO ×3 (00:05→20:18)
[2022-11-24] MEDS: Gabapentin 300 MG CAPSULE 600 MG PO ×4 (00:06→20:16)
[2022-11-24] MEDS: carBAMazepine 200 MG TABLET 400 MG PO (00:06)
[2022-11-24] MEDS: risperiDONE 3 MG TABLET PO ×3 (00:07→20:16)
[2022-11-24 00:15] LABS: ABG Refer to POC result
--- NOTE | 2022-11-24 01:19 | PC.NURSE ---
2345; Patient ambulated to bathroom with rolling walker and 1 assist/standby assist. Patient attempted to void, unable to void, reporting has the urge to void. Patient assisted back into bed. Bladder scan showed 458 mls, Dr. Alba made aware. Order for straight cath, patient tolerated well. Patient straight cath for 500 mls dark yellow urine.
[2022-11-24 05:13] LABS: Appearance Urine Clear; Color Urine Dark Yellow; Glucose Urine UA Negative (Negative); Leukocyte Esterase Urine Negative (Negative); Nitrite Urine Negative (Negative); Specific Gravity - Urine 1.015 (1.005-1.025); Urine Blood Negative (Negative); Urine Ketones Negative (Negative); Urine Protein Negative (Neg-Trace)
[2022-11-24 07:07] LABS: Glucose, Whole Blood 89 mg/dL (60-115)
[2022-11-24] MEDS: lisinopriL 10 MG TABLET PO (09:01)
[2022-11-24] MEDS: methylPREDNISolone Sod Succ 40 MG/ML VIAL IVPUSH ×2 (09:01→20:04)
[2022-11-24] MEDS: ARIPiprazole 15 MG TABLET PO (09:02)
[2022-11-24] MEDS: Multivitamin TABLET 1 TAB PO (09:02)
[2022-11-24] MEDS: Aspirin Enteric Coated 81 MG TABLET.DR PO (09:02)
[2022-11-24] MEDS: Cholecalciferol (Vitamin D3) 25 MCG TABLET 50 MCG PO (09:02)
[2022-11-24] MEDS: estradioL 0.5 MG TABLET 1 MG PO (09:02)
[2022-11-24] MEDS: Folic Acid 1 MG TABLET PO (09:02)
[2022-11-24] MEDS: Ascorbic Acid 500 MG TABLET PO (09:02)
[2022-11-24] MEDS: Albuterol Sulfate 90 MCG 8 GM INHALER 2 PUFF INHALE (09:20)
--- NOTE | 2022-11-24 09:40 | HO.PM.IMPN ---
Subjective Subjective Date of Service: 11/24/22 Interval History: sob, cough Physical Exam Vital Signs: Vital Signs: Last Vital Signs Temp 97.8 F 11/24/22 06:54 Pulse 102 H 11/24/22 09:22 Resp 20 11/24/22 09:22 BP 125/56 L 11/24/22 06:54 Pulse Ox 95 11/24/22 06:54 O2 Del Method Room Air 11/24/22 06:54 BMI result Body Mass Index 34.2 bilateral wheezes Objective Data Active Medications Acetaminophen (Acetaminophen 325 Mg Tablet) 650 mg PO Q6H PRN PRN Reason: Pain, Mild (Pain Scale 1-3) Acetaminophen (Acetaminophen Supp 650 Mg Supp.Rect) 650 mg DC Q6H PRN PRN Reason: Pain, Mild (Pain Scale 1-3) Albuterol Sulfate (Albuterol Sulfate 90 Mcg 8 Gm Inhaler) 2 puff INHALE Q4H PRN PRN Reason: Wheezing Last Admin: 11/24/22 09:20 Dose: 2 puff Documented By: JULIO Aripiprazole (Aripiprazole 15 Mg Tablet) 15 mg PO DAILY [facility] Last Admin: 11/24/22 09:02 Dose: 15 mg Documented By: AVIVA Ascorbic Acid (Ascorbic Acid 500 Mg Tablet) 500 mg PO DAILY [facility] Last Admin: 11/24/22 09:02 Dose: 500 mg Documented By: AVIVA Aspirin (Aspirin Enteric Coated 81 Mg Tablet.Dr) 81 mg PO DAILY [facility] Last Admin: 11/24/22 09:02 Dose: 81 mg Documented By: AVIVA Dextrose (Dextrose 50 % 25 Gm/50 Ml Syringe) 25 gm IVPUSH Q15M PRN; Protocol PRN Reason: per Hypoglycemia Standing Ord. Dicyclomine HCl (Dicyclomine Hcl 10 Mg Capsule) 10 mg PO Q6H PRN PRN Reason: GI UPSET Enoxaparin Sodium (Enoxaparin Sodium 40 Mg/0.4 Ml Syringe) 40 mg SUBCUT Q24H [facility] Last Admin: 11/23/22 21:19 Dose: 40 mg Documented By: JAGUAR Comments: ed admission; late d/t not given in ed Estradiol (Estradiol 0.5 Mg Tablet) 1 mg PO DAILY [facility] Last Admin: 11/24/22 09:02 Dose: 1 mg Documented By: AVIVA Folic Acid (Folic Acid 1 Mg Tablet) 1 mg PO DAILY [facility] Last Admin: 11/24/22 09:02 Dose: 1 mg Documented By: AVIVA Gabapentin (Gabapentin 300 Mg Capsule) 600 mg PO TID [facility] Last Admin: 11/24/22 09:29 Dose: 600 mg Documented By: AVIVA Glucose (Glucose Gel 15 Gm Gel..Gram.) 15 gm PO Q15M PRN; Protocol PRN Reason: per Hypoglycemia Standing Ord. Azithromycin 500 mg/ Sodium (Chloride) 250 mls @ 125 mls/hr IV Q24H [facility] Last Infusion: 11/23/22 23:20 Dose: Infused Documented By: JAGUAR Ceftriaxone Sodium 1 gm/ (Sodium Chloride) 50 mls @ 100 mls/hr IV Q24H [facility] Last Infusion: 11/23/22 20:45 Dose: Infused Documented By: MARLENA Insulin Human Lispro (Insulin Lispro 100 Unit/Ml 3 Ml Vial) 0 unit SUBCUT QIDACHS [facility]; Protocol Last Admin: 11/24/22 07:10 Dose: Not Given Documented By: AVIVA Non-Admin Reason: No Insulin Coverage Lisinopril (Lisinopril 10 Mg Tablet) 10 mg PO DAILY [facility]; Protocol Last Admin: 11/24/22 09:01 Dose: 10 mg Documented By: AVIVA Melatonin (Melatonin 3 Mg Tablet) 6 mg PO BEDTIME PRN PRN Reason: Insomnia Methylprednisolone Sodium Succinate (Methylprednisolone Sod Succ 40 Mg/Ml Vial) 40 mg IVPUSH Q12H [facility] Last Admin: 11/24/22 09:01 Dose: 40 mg Documented By: AVIVA Montelukast Sodium (Montelukast Sodium 10 Mg Tablet) 10 mg PO BEDTIME [facility] Multivitamins/Vitamin C (Multivitamin Tablet) 1 tab PO DAILY [facility] Last Admin: 11/24/22 09:02 Dose: 1 tab Documented By: AVIVA Non-Formulary Medication (Carbamazepine [Tegretol Xr]) 400 mg PO BID [facility] Ondansetron HCl (Ondansetron Hcl 4 Mg/2 Ml Vial) 4 mg IVPUSH Q8H PRN PRN Reason: Nausea and Vomiting Prazosin HCl (Prazosin Hcl 1 Mg Capsule) 4 mg PO BEDTIME DAGMAR; Protocol Prazosin HCl (Prazosin Hcl 1 Mg Capsule) 2 mg PO DAILY PRN; Protocol PRN Reason: Agitation Risperidone (Risperidone 3 Mg Tablet) 3 mg PO BID [facility] Last Admin: 11/24/22 09:01 Dose: 3 mg Documented By: AVIVA Sodium Chloride (0.9 % Sodium Chloride Flush 3 Ml Syringe) 3 ml IVFLUSH QSHIFT [facility] Last Admin: 11/24/22 07:11 Dose: Not Given Documented By: AVIVA Non-Admin Reason: IV Running Sumatriptan Succinate (Sumatriptan Succinate 100 Mg Tablet) 100 mg PO DAILY PRN PRN Reason: Migraine Headache Topiramate (Topiramate 25 Mg Tablet) 150 mg PO BID [facility] Last Admin: 11/24/22 09:01 Dose: 150 mg Documented By: AVIVA Vitamin D (Cholecalciferol (Vitamin D3) 25 Mcg Tablet) 50 mcg PO DAILY [facility] Last Admin: 11/24/22 09:02 Dose: 50 mcg Documented By: AVIVA Labs 11/23/22 16:54 11/23/22 16:54 Labs: Laboratory Results - last 24 hr 11/23/22 11/23/22 11/23/22 11:04 16:54 17:59 MCV 79.3 L MCH 24.6 L MCHC 31.1 RDW 17.6 H Plt Count 355 MPV 9.1 L Immature Gran % (Auto) 0.7 H Neut % (Auto) 76.4 H Lymph % (Auto) 11.7 L [place] % (Auto) 10.9 Eos % (Auto) 0.0 Baso % (Auto) 0.3 Lymph # (Auto) 3.1 [place] # (Auto) 2.9 H Eos # (Auto) 0.0 Baso # (Auto) 0.1 Abs Immat Gran (auto) 0.19 H Absolute Neuts (auto) 20.2 H Absolute Nucleated RBC 0.000 Nucleated RBC % (auto) 0.0 Smear Tech's Comments VERIFIED O2 Saturation ABG pH at Pt Temp ABG pCO2 at Pt Temp ABG pO2 at Pt Temp ABG HCO3 ABG Base Excess (Actual) Anion Gap 16 Estim Creat Clear Calc 57.9 Estimated GFR 58 POC Glucose Random Glucose 114 Lactic Acid 0.8 Calcium 9.0 Iron TIBC % Saturation Unsat Iron Binding Total Bilirubin 0.3 AST 16 ALT 16 Alkaline Phosphatase 91 Total Protein 6.6 Albumin 3.5 Urine Color Urine Appearance Urine pH Ur Specific [address] Urine Protein Urine Glucose (UA) Urine Ketones Urine Blood Urine Nitrite Ur Leukocyte Esterase Stool Occult Blood NEGATIVE COVID-19 (DHIRAJ) Negative COVID-19 Clin Com See Note 11/23/22 11/23/22 11/23/22 20:14 20:33 20:42 MCV MCH MCHC RDW Plt Count MPV Immature Gran % (Auto) Neut % (Auto) Lymph % (Auto) [place] % (Auto) Eos % (Auto) Baso % (Auto) Lymph # (Auto) [place] # (Auto) Eos # (Auto) Baso # (Auto) Abs Immat Gran (auto) Absolute Neuts (auto) Absolute Nucleated RBC Nucleated RBC % (auto) Smear Tech's Comments O2 Saturation 98.0 ABG pH at Pt Temp 7.41 ABG pCO2 at Pt Temp 29 L ABG pO2 at Pt Temp 92 ABG HCO3 19 L ABG Base Excess (Actual) -4.6 Anion Gap Estim Creat Clear Calc Estimated GFR POC Glucose 81 Random Glucose Lactic Acid Calcium Iron 14 L TIBC 280 % Saturation 5 L Unsat Iron Binding 266 Total Bilirubin AST ALT Alkaline Phosphatase Total Protein Albumin Urine Color Urine Appearance Urine pH Ur Specific [address] Urine Protein Urine Glucose (UA) Urine Ketones Urine Blood Urine Nitrite Ur Leukocyte Esterase Stool Occult Blood COVID-19 (DHIRAJ) COVID-19 [employer] Com 11/23/22 11/24/22 11/24/22 21:51 01:06 07:01 MCV MCH MCHC RDW Plt Count MPV Immature Gran % (Auto) Neut % (Auto) Lymph % (Auto) [place] % (Auto) Eos % (Auto) Baso % (Auto) Lymph # (Auto) [place] # (Auto) Eos # (Auto) Baso # (Auto) Abs Immat Gran (auto) Absolute Neuts (auto) Absolute Nucleated RBC Nucleated RBC % (auto) Smear Tech's Comments O2 Saturation ABG pH at Pt Temp ABG pCO2 at Pt Temp ABG pO2 at Pt Temp ABG HCO3 ABG Base Excess (Actual) Anion Gap Estim Creat Clear Calc Estimated GFR POC Glucose 126 H 89 Random Glucose Lactic Acid Calcium Iron TIBC % Saturation Unsat Iron Binding Total Bilirubin AST ALT Alkaline Phosphatase Total Protein Albumin Urine Color Dark Yellow Urine Appearance Clear Urine pH 6.[address] 1.015 Urine Protein Negative Urine Glucose (UA) Negative Urine Ketones Negative Urine Blood Negative Urine Nitrite Negative Ur Leukocyte Esterase Negative Stool Occult Blood COVID-19 (DHIRAJ) COVID-19 Clin Com Assessment and Plan (1) Sepsis: Status: Acute Plan 62F PMH moderate persistent asthma, psoriatic arthritis, mood disorder, htn, dm, copd, migraine presented with sob sepsis due to left sided pneumonia in immunicompromised patient joaquín dove, follow up cultures moderate persistent asthma/ copd with acute decompensation steroids, albuterol htn Lisinopri DM insulin mood disorder Continue Abilify DVT prophylaxis with Lovenox Full code Reason for continued hospitalization: Awaiting defervesence Time Spent With Patient Time: Total time managing care of this patient today ____ minutes. Quality Stroke Does the patient have a stroke diagnosis?: No VTE Prior VTE?: No VTE Risk Level:: Medical - moderate - high VTE Device Contraindication: Treatment Not Indicated VTE Drug Contraindication: N/A - Med Ordered
[2022-11-24 10:25] LABS: Basophils Absolute Auto 0.1 X10*3/uL (0.0-0.2); Basophils Percent Auto 0.3 % (0-2); Eosinophils Absolute Auto 0.1 X10*3/uL (0.0-0.4); Eosinophils Percent Auto 0.4 % (0-4); Hematocrit 24.5 % (37.0-47.0); Hemoglobin 7.6 g/dl (12.0-16.0); Imm Gran Abs Auto 0.13 X10*3/uL (0.00-0.03); Imm Gran Pct Auto 0.7 % (0.0-0.4); Lymphocytes Absolute Auto 1.7 X10*3/uL (1.2-4.9); Lymphocytes Percent Auto 8.7 % (20-40); MANUAL DIFF FLAG SCAN; Mean Corpuscular Hemoglobin 24.9 pg (27.0-33.0); Mean Corpuscular Volume 80.3 fL (80.0-98.0); Mean Platelet Volume 9.5 fL (9.4-12.3); Monocytes Absolute Auto 1.8 X10*3/uL (0.1-1.2); Neutrophils Absolute Auto 16.1 x10*3/uL (2.0-8.3); Neutrophils Percent Auto 80.9 % (45-73); Platelet Count 327 X10*3/uL (160-400); Red Blood Count 3.05 X10*6/uL (4.20-5.50); Red Cell Distribution Width 17.6 % (11.0-16.0); SCAN SMEAR FLAG 1; White Blood Count 19.9 X10*3/uL (4.8-10.8)
[2022-11-24 10:40] LABS: Anion Gap 13 (12-20); Blood Urea Nitrogen 20 mg/dL (9-16); Calcium 8.3 mg/dL (8.4-10.2); Carbon Dioxide 20 mmol/L (22-29); Chloride 105 mmol/L (96-108); Creatinine Clr Calc Pharmacy 90.7; Estimated Glomerular Filt Rate > 60; Glucose Random 149 mg/dL (60-115); Potassium 3.9 mmol/L (3.3-5.1); Sodium 134 mmol/L (135-145)
[2022-11-24 10:48] LABS: SLIDE REVIEW VERIFIED
[2022-11-24 10:52] LABS: MRSA Nasal PCR NEGATIVE (Negative); SA Nasal PCR POSITIVE (Negative)
[2022-11-24 11:10] LABS: Glucose, Whole Blood 147 mg/dL (60-115)
[2022-11-24] MEDS: Albuterol/Iprat 2.5/0.5MG 3 ML AMPUL.NEB INHALE ×3 (12:15→19:04)
--- NOTE | 2022-11-24 12:21 | PC.NURSE ---
Pt requested to have someone bring in carbemazepin from home. Electrical Instrument Technician brought in all home medications. All medications verified by this RN and brought to pharmacy, paperwork in physical chart. Pt belongings also brought in. Tote bag of clothing, backpack. 2 chargers, 1 phone, and 1 iPad. Pt belongings in pt room.
--- NOTE | 2022-11-24 12:58 | MHC.CM.PN ---
IMM 11/24/22 Patient lives alone in an apartment in [facility]. She came to the ER from [facility] [place]. She was discharged to respite from [facility]. [employer] has delivered the patients belongings. Patient uses a walker to ambulate safely. [employer] provides SN and PIE FILLER services. [employer] delivers food daily to the patient. Patient utilizes [facility] for transportation. If Patient qualifies for STR her preference is [facility]. A referral has been sent. [facility] declined the offer to document a HCP. DP home with resumption of services/[place], via [facility] vs STR via BLS.
[2022-11-24 16:09] LABS: Glucose, Whole Blood 146 mg/dL (60-115)
[2022-11-24] MEDS: 0.9 % Sodium Chloride Flush 3 ML SYRINGE IVFLUSH ×2 (16:23→19:24)
[2022-11-24] MEDS: Lactase TABLET 1 TAB PO ×2 (17:24→20:15)
--- NOTE | 2022-11-24 19:15 | PC.NURSE ---
Patient tachycardiac on arrival to the floor, O2 sat's low 80s, diaphoretic. Provider notified - received order for EKG, placed patient on 2L NC. provider at bedside
[2022-11-24] MEDS: Enoxaparin Sodium 40 MG/0.4 ML SYRINGE SUBCUT (19:25)
[2022-11-24] MEDS: cefTRIAXone sodium 1 GM in 0.9 % Sodium Chloride 50 ML IV (19:36)
[2022-11-24 20:06] LABS: Glucose, Whole Blood 111 mg/dL (60-115)
[2022-11-24] MEDS: Montelukast Sodium 10 MG TABLET PO (20:16)
[2022-11-24] MEDS: Prazosin HCL 1 MG CAPSULE 4 MG PO (20:17)
[2022-11-24] MEDS: Azithromycin 500 MG in 0.9 % Sodium Chloride 250 ML 125 MG IV (20:22)
[2022-11-24] MEDS: Acetaminophen 325 MG TABLET 650 MG PO (21:09)
[2022-11-25] VITALS (8 sets, daily range): BP systolic 112–145; BP diastolic 58–73; PULSE 77–108; RESP 18–20; TEMP 36–36.3; O2SAT 94–97
[2022-11-25] MEDS: Melatonin 3 MG TABLET 6 MG PO (01:08)
[2022-11-25] MEDS: Meclizine HCl 25 MG TABLET PO (01:08)
[2022-11-25] MEDS: Albuterol Sulfate 90 MCG 8 GM INHALER 2 PUFF INHALE (01:19)
--- NOTE | 2022-11-25 02:50 | PC.NURSE ---
Acquired care at midnight. pt is awake in bed. C/O dizziness. Reported that she has vertigo and taking miclizine 3 x day as baseline. MD notified. Pt was given 1 time dose of Miclizine.
[2022-11-25 06:07] LABS: Hematocrit 23.3 % (37.0-47.0); Hemoglobin 7.2 g/dl (12.0-16.0); Mean Corpuscular HGB Conc 30.9 g/dl (31.0-35.0); Mean Corpuscular Hemoglobin 24.7 pg (27.0-33.0); Mean Corpuscular Volume 80.1 fL (80.0-98.0); Mean Platelet Volume 9.6 fL (9.4-12.3); Platelet Count 340 X10*3/uL (160-400); Red Blood Count 2.91 X10*6/uL (4.20-5.50); Red Cell Distribution Width 17.5 % (11.0-16.0); White Blood Count 18.6 X10*3/uL (4.8-10.8)
[2022-11-25 06:26] LABS: Anion Gap 15 (12-20); Blood Urea Nitrogen 16 mg/dL (9-16); Calcium 8.8 mg/dL (8.4-10.2); Carbon Dioxide 21 mmol/L (22-29); Chloride 102 mmol/L (96-108); Creatinine Clr Calc Pharmacy 101.8; Estimated Glomerular Filt Rate > 60; Glucose Fasting 115 mg/dL (60-99); Potassium 3.8 mmol/L (3.3-5.1); Sodium 134 mmol/L (135-145)
[2022-11-25 07:29] LABS: Glucose, Whole Blood 95 mg/dL (60-115)
[2022-11-25] MEDS: Albuterol/Iprat 2.5/0.5MG 3 ML AMPUL.NEB INHALE ×4 (07:54→19:16)
[2022-11-25] MEDS: Cholecalciferol (Vitamin D3) 25 MCG TABLET 50 MCG PO (08:12)
[2022-11-25] MEDS: Topiramate 25 MG TABLET 150 MG PO ×2 (08:13→21:11)
[2022-11-25] MEDS: Gabapentin 300 MG CAPSULE 600 MG PO ×3 (08:14→21:12)
[2022-11-25] MEDS: Multivitamin TABLET 1 TAB PO (08:15)
[2022-11-25] MEDS: Ascorbic Acid 500 MG TABLET PO (08:15)
[2022-11-25] MEDS: risperiDONE 3 MG TABLET PO ×2 (08:15→21:12)
[2022-11-25] MEDS: Lactase TABLET 1 TAB PO ×4 (08:15→21:18)
[2022-11-25] MEDS: lisinopriL 10 MG TABLET PO (08:15)
[2022-11-25] MEDS: SUMAtriptan succinate 100 MG TABLET PO (08:15)
[2022-11-25] MEDS: estradioL 0.5 MG TABLET 1 MG PO (08:16)
[2022-11-25] MEDS: Aspirin Enteric Coated 81 MG TABLET.DR PO (08:16)
[2022-11-25] MEDS: 0.9 % Sodium Chloride Flush 3 ML SYRINGE IVFLUSH ×2 (08:17→16:14)
[2022-11-25] MEDS: methylPREDNISolone Sod Succ 40 MG/ML VIAL IVPUSH (08:17)
[2022-11-25] MEDS: ARIPiprazole 15 MG TABLET PO (08:17)
[2022-11-25] MEDS: Folic Acid 1 MG TABLET PO (10:42)
[2022-11-25] MEDS: Sodium Ferric Gluconat/Sucrose 125 MG in 0.9 % Sodium Chloride 100 ML 100 MG IV (11:18)
[2022-11-25 11:39] LABS: Glucose, Whole Blood 188 mg/dL (60-115)
--- NOTE | 2022-11-25 12:17 | P.PNIM_ITS ---
Subjective Subjective Date of Service: 11/25/22 Interval History: sob, cough Physical Exam 2 Vital Signs: Vital Signs: Last Vital Signs Temp 96.8 F 11/25/22 07:21 Pulse 87 11/25/22 11:46 Resp 18 11/25/22 11:46 BP 145/63 H 11/25/22 07:21 Pulse Ox 94 11/25/22 07:21 O2 Del Method Room Air 11/25/22 07:21 BMI result Body Mass Index 34.2 bilateral wheezes Objective Data Active Medications Acetaminophen (Acetaminophen 325 Mg Tablet) 650 mg PO Q6H PRN PRN Reason: Pain, Mild (Pain Scale 1-3) Last Admin: 11/24/22 21:09 Dose: 650 mg Documented By: MARIE Acetaminophen (Acetaminophen Supp 650 Mg Supp.Rect) 650 mg [place] Q6H PRN PRN Reason: Pain, Mild (Pain Scale 1-3) Albuterol Sulfate (Albuterol Sulfate 90 Mcg 8 Gm Inhaler) 2 puff INHALE Q4H PRN PRN Reason: Wheezing Last Admin: 11/25/22 01:19 Dose: 2 puff Documented By: ASHLEY Albuterol/Ipratropium (Albuterol/Iprat 2.5/0.5mg 3 Ml Ampul.Neb) 3 ml INHALE RQ4H WHILE AWAKE [facility] Last Admin: 11/25/22 11:45 Dose: 3 ml Documented By: MARY Aripiprazole (Aripiprazole 15 Mg Tablet) 15 mg PO DAILY [facility] Last Admin: 11/25/22 08:17 Dose: 15 mg Documented By: PRINCESS Ascorbic Acid (Ascorbic Acid 500 Mg Tablet) 500 mg PO DAILY [facility] Last Admin: 11/25/22 08:15 Dose: 500 mg Documented By: PRINCESS Aspirin (Aspirin Enteric Coated 81 Mg Tablet.Dr) 81 mg PO DAILY [facility] Last Admin: 11/25/22 08:16 Dose: 81 mg Documented By: PRINCESS Dextrose (Dextrose 50 % 25 Gm/50 Ml Syringe) 25 gm IVPUSH Q15M PRN; Protocol PRN Reason: per Hypoglycemia Standing Ord. Dicyclomine HCl (Dicyclomine Hcl 10 Mg Capsule) 10 mg PO Q6H PRN PRN Reason: GI UPSET Enoxaparin Sodium (Enoxaparin Sodium 40 Mg/0.4 Ml Syringe) 40 mg SUBCUT Q24H [facility] Last Admin: 11/24/22 19:25 Dose: 40 mg Documented By: MARIE Estradiol (Estradiol 0.5 Mg Tablet) 1 mg PO DAILY [facility] Last Admin: 11/25/22 08:16 Dose: 1 mg Documented By: PRINCESS Folic Acid (Folic Acid 1 Mg Tablet) 1 mg PO DAILY [facility] Last Admin: 11/25/22 10:42 Dose: 1 mg Documented By: PRINCESS Gabapentin (Gabapentin 300 Mg Capsule) 600 mg PO TID [facility] Last Admin: 11/25/22 08:14 Dose: 600 mg Documented By: PRINCESS Glucose (Glucose Gel 15 Gm Gel..Gram.) 15 gm PO Q15M PRN; Protocol PRN Reason: per Hypoglycemia Standing Ord. Azithromycin 500 mg/ Sodium (Chloride) 250 mls @ 125 mls/hr IV Q24H [facility] Last Infusion: 11/24/22 23:06 Dose: Infused Documented By: MARIE Ceftriaxone Sodium 1 gm/ (Sodium Chloride) 50 mls @ 100 mls/hr IV Q24H [facility] Last Infusion: 11/24/22 20:13 Dose: Infused Documented By: MARIE Ferric Sodium Gluconate Complex 125 mg/ Sodium Chloride 110 mls @ 100 mls/hr IV DAILY [facility] Stop: 11/27/22 10:05 Last Admin: 11/25/22 11:18 Dose: 100 mls/hr Documented By: PRINCESS Insulin Human Lispro (Insulin Lispro 100 Unit/Ml 3 Ml Vial) 0 unit SUBCUT QIDACHS [facility]; Protocol Last Admin: 11/25/22 08:24 Dose: Not Given Documented By: PRINCESS Non-Admin Reason: No Insulin Coverage Lactase (Lactase Tablet) 1 tab PO TIDWM [facility] Last Admin: 11/25/22 08:15 Dose: 1 tab Documented By: PRINCESS Lisinopril (Lisinopril 10 Mg Tablet) 10 mg PO DAILY [facility]; Protocol Last Admin: 11/25/22 08:15 Dose: 10 mg Documented By: PRINCESS Melatonin (Melatonin 3 Mg Tablet) 6 mg PO BEDTIME PRN PRN Reason: Insomnia Last Admin: 11/25/22 01:08 Dose: 6 mg Documented By: ASHLEY Methylprednisolone Sodium Succinate (Methylprednisolone Sod Succ 40 Mg/Ml Vial) 40 mg IVPUSH Q12H [facility] Last Admin: 11/25/22 08:17 Dose: 40 mg Documented By: PRINCESS Montelukast Sodium (Montelukast Sodium 10 Mg Tablet) 10 mg PO BEDTIME [facility] Last Admin: 11/24/22 20:16 Dose: 10 mg Documented By: MARIE Multivitamins/Vitamin C (Multivitamin Tablet) 1 tab PO DAILY [facility] Last Admin: 11/25/22 08:15 Dose: 1 tab Documented By: PRINCESS Non-Formulary Medication (Carbamazepine [Tegretol Xr]) 400 mg PO BID [facility] Last Admin: 11/25/22 08:12 Dose: 400 mg Documented By: PRINCESS Omeprazole (Omeprazole 20 Mg Capsule.Dr) 20 mg PO BID@0630,1630 [facility] Ondansetron HCl (Ondansetron Hcl 4 Mg/2 Ml Vial) 4 mg IVPUSH Q8H PRN PRN Reason: Nausea and Vomiting Prazosin HCl (Prazosin Hcl 1 Mg Capsule) 4 mg PO BEDTIME [facility]; Protocol Last Admin: 11/24/22 20:17 Dose: 4 mg Documented By: MARIE Prazosin HCl (Prazosin Hcl 1 Mg Capsule) 2 mg PO DAILY PRN; Protocol PRN Reason: Agitation Risperidone (Risperidone 3 Mg Tablet) 3 mg PO BID [facility] Last Admin: 11/25/22 08:15 Dose: 3 mg Documented By: PRINCESS Sodium Chloride (0.9 % Sodium Chloride Flush 3 Ml Syringe) 3 ml IVFLUSH QSHIFT [facility] Last Admin: 11/25/22 08:17 Dose: 3 ml Documented By: PRINECSS Sumatriptan Succinate (Sumatriptan Succinate 100 Mg Tablet) 100 mg PO DAILY PRN PRN Reason: Migraine Headache Last Admin: 11/25/22 08:15 Dose: 100 mg Documented By: PRINCESS Topiramate (Topiramate 25 Mg Tablet) 150 mg PO BID [facility] Last Admin: 11/25/22 08:13 Dose: 150 mg Documented By: PRINCESS Vitamin D (Cholecalciferol (Vitamin D3) 25 Mcg Tablet) 50 mcg PO DAILY [facility] Last Admin: 11/25/22 08:12 Dose: 50 mcg Documented By: PRINCESS Labs 11/25/22 05:32 10/14/23 05:32 Labs: Laboratory Results - last 24 hr 11/24/22 11/24/22 11/25/22 16:05 20:02 05:32 MCV 80.1 MCH 24.7 L MCHC 30.9 L RDW 17.5 H Plt Count 340 MPV 9.6 Absolute Nucleated RBC 0.000 Nucleated RBC % (auto) 0.0 Anion Gap 15 Estim Creat Clear Calc 101.8 Estimated GFR > 60 POC Glucose 146 H 111 Fasting Glucose 115 H Calcium 8.8 D 11/25/22 11/25/22 07:23 11:34 MCV MCH MCHC RDW Plt Count MPV Absolute Nucleated RBC Nucleated RBC % (auto) Anion Gap Estim Creat Clear Calc Estimated GFR POC Glucose 95 188 H Fasting Glucose Calcium Microbiology Microbiology Results: Microbiology 11/24/22 01:06 Gram Stain - Final Sputum - Expectorated Sputum Culture - Preliminary Culture in progress. 11/23/22 16:54 Blood Culture - Preliminary Blood - Venous No growth after 24 hours. 11/23/22 16:58 Blood Culture - Preliminary Blood - Venous No growth after 24 hours. Assessment and Plan (1) Sepsis: Status: Acute Plan 62F PMH moderate persistent asthma, psoriatic arthritis, mood disorder, htn, dm, copd, migraine presented with sob sepsis due to left sided pneumonia in immunicompromised patient joaquín dove, moderate persistent asthma/ copd with acute decompensation steroids, albuterol, still sob iron deficiency anemia acute on chronic iv iron htn Lisinopri DM insulin mood disorder Continue Abilify DVT prophylaxis with Lovenox Full code Reason for continued hospitalization: Awaiting defervesence Time Spent With Patient Time: Total time managing care of this patient today ____ minutes. Quality Stroke Does the patient have a stroke diagnosis?: No VTE Prior VTE?: No VTE Risk Level:: Medical - moderate - high VTE Device Contraindication: Treatment Not Indicated VTE Drug Contraindication: N/A - Med Ordered
[2022-11-25] MEDS: Insulin Lispro 100 UNIT/ML 3 ML VIAL SUBCUT ×2 (12:47→21:13)
[2022-11-25] MEDS: Omeprazole 20 MG CAPSULE.DR PO (16:13)
[2022-11-25 17:12] LABS: Glucose, Whole Blood 78 mg/dL (60-115)
[2022-11-25] MEDS: Acetaminophen 325 MG TABLET 650 MG PO (18:52)
[2022-11-25 20:12] LABS: Glucose, Whole Blood 169 mg/dL (60-115)
[2022-11-25] MEDS: Enoxaparin Sodium 40 MG/0.4 ML SYRINGE SUBCUT (21:10)
[2022-11-25] MEDS: Montelukast Sodium 10 MG TABLET PO (21:11)
[2022-11-25] MEDS: Prazosin HCL 1 MG CAPSULE 4 MG PO (21:11)
[2022-11-26] VITALS (9 sets, daily range): BP systolic 114–150; BP diastolic 55–70; PULSE 83–102; RESP 16–20; TEMP 26.6–36.8; O2SAT 93–96
[2022-11-26] MEDS: Albuterol Sulfate 90 MCG 8 GM INHALER 2 PUFF INHALE ×2 (00:59→22:50)
[2022-11-26] MEDS: Meclizine HCl 25 MG TABLET PO (01:56)
--- NOTE | 2022-11-26 02:06 | PC.NURSE ---
pt's IV infiltrated while IV zithromax was running.attempted several times to restart IV.finishing range supervisor notified and tried and was unsuccessful.We asked if we could try in her foot he said yes.Telephone Sterilizer attempted to get an IV in her foot.Telephone Sterilizer said she will send someone from the er with the u/s to try.
[2022-11-26] MEDS: Albuterol/Iprat 2.5/0.5MG 3 ML AMPUL.NEB INHALE ×5 (03:38→19:15)
[2022-11-26] MEDS: Omeprazole 20 MG CAPSULE.DR PO ×2 (06:17→16:01)
[2022-11-26 06:57] LABS: Hematocrit 25.4 % (37.0-47.0); Hemoglobin 7.9 g/dl (12.0-16.0); Mean Corpuscular HGB Conc 31.1 g/dl (31.0-35.0); Mean Corpuscular Volume 80.4 fL (80.0-98.0); Platelet Count 426 X10*3/uL (160-400); Red Blood Count 3.16 X10*6/uL (4.20-5.50); Red Cell Distribution Width 17.3 % (11.0-16.0); White Blood Count 15.2 X10*3/uL (4.8-10.8)
[2022-11-26 07:12] LABS: Anion Gap 14 (12-20); Blood Urea Nitrogen 10 mg/dL (9-16); Calcium 8.7 mg/dL (8.4-10.2); Carbon Dioxide 20 mmol/L (22-29); Chloride 109 mmol/L (96-108); Creatinine Clr Calc Pharmacy 109.5; Estimated Glomerular Filt Rate > 60; Glucose Fasting 119 mg/dL (60-99); Potassium 3.9 mmol/L (3.3-5.1); Sodium 139 mmol/L (135-145)
[2022-11-26 07:20] LABS: Glucose, Whole Blood 113 mg/dL (60-115)
[2022-11-26] MEDS: Topiramate 25 MG TABLET 150 MG PO ×2 (09:11→20:53)
[2022-11-26] MEDS: Gabapentin 300 MG CAPSULE 600 MG PO ×3 (09:12→20:52)
[2022-11-26] MEDS: Ascorbic Acid 500 MG TABLET PO (09:12)
[2022-11-26] MEDS: Cholecalciferol (Vitamin D3) 25 MCG TABLET 50 MCG PO (09:12)
[2022-11-26] MEDS: Multivitamin TABLET 1 TAB PO (09:12)
[2022-11-26] MEDS: estradioL 0.5 MG TABLET 1 MG PO (09:12)
[2022-11-26] MEDS: ARIPiprazole 15 MG TABLET PO (09:12)
[2022-11-26] MEDS: Folic Acid 1 MG TABLET PO (09:12)
[2022-11-26] MEDS: Lactase TABLET 1 TAB PO ×4 (09:12→21:23)
[2022-11-26] MEDS: risperiDONE 3 MG TABLET PO ×2 (09:13→20:51)
[2022-11-26] MEDS: lisinopriL 10 MG TABLET PO (09:13)
[2022-11-26] MEDS: Aspirin Enteric Coated 81 MG TABLET.DR PO (09:13)
--- NOTE | 2022-11-26 10:24 | P.PNIM_ITS ---
Subjective Subjective Date of Service: 11/26/22 Interval History: a bit better Physical Exam 2 Vital Signs: Vital Signs: Last Vital Signs Temp 97.4 F 11/26/22 03:46 Pulse 87 11/26/22 07:34 Resp 18 11/26/22 07:34 BP 150/70 H 11/26/22 07:16 Pulse Ox 93 11/26/22 07:16 O2 Del Method Room Air 11/26/22 07:16 BMI result Body Mass Index 34.2 less wheezing Objective Data Active Medications Acetaminophen (Acetaminophen 325 Mg Tablet) 650 mg PO Q6H PRN PRN Reason: Pain, Mild (Pain Scale 1-3) Last Admin: 11/25/22 18:52 Dose: 650 mg Documented By: PRINCESS Acetaminophen (Acetaminophen Supp 650 Mg Supp.Rect) 650 mg [place] Q6H PRN PRN Reason: Pain, Mild (Pain Scale 1-3) Albuterol Sulfate (Albuterol Sulfate 90 Mcg 8 Gm Inhaler) 2 puff INHALE Q4H PRN PRN Reason: Wheezing Last Admin: 11/26/22 00:59 Dose: 2 puff Documented By: BEULAH Albuterol/Ipratropium (Albuterol/Iprat 2.5/0.5mg 3 Ml Ampul.Neb) 3 ml INHALE RQ4H WHILE AWAKE [facility] Last Admin: 11/26/22 07:33 Dose: 3 ml Documented By: MARY Aripiprazole (Aripiprazole 15 Mg Tablet) 15 mg PO DAILY [facility] Last Admin: 11/26/22 09:12 Dose: 15 mg Documented By: JARROD Ascorbic Acid (Ascorbic Acid 500 Mg Tablet) 500 mg PO DAILY [facility] Last Admin: 11/26/22 09:12 Dose: 500 mg Documented By: JARROD Aspirin (Aspirin Enteric Coated 81 Mg Tablet.Dr) 81 mg PO DAILY [facility] Last Admin: 11/26/22 09:13 Dose: 81 mg Documented By: JARROD Cefuroxime Axetil (Cefuroxime Axetil 500 Mg Tablet) 500 mg PO Q12H [facility] Dextrose (Dextrose 50 % 25 Gm/50 Ml Syringe) 25 gm IVPUSH Q15M PRN; Protocol PRN Reason: per Hypoglycemia Standing Ord. Dicyclomine HCl (Dicyclomine Hcl 10 Mg Capsule) 10 mg PO Q6H PRN PRN Reason: GI UPSET Enoxaparin Sodium (Enoxaparin Sodium 40 Mg/0.4 Ml Syringe) 40 mg SUBCUT Q24H [facility] Last Admin: 11/25/22 21:10 Dose: 40 mg Documented By: AYDEE Estradiol (Estradiol 0.5 Mg Tablet) 1 mg PO DAILY [facility] Last Admin: 11/26/22 09:12 Dose: 1 mg Documented By: JARROD Folic Acid (Folic Acid 1 Mg Tablet) 1 mg PO DAILY [facility] Last Admin: 11/26/22 09:12 Dose: 1 mg Documented By: JARROD Gabapentin (Gabapentin 300 Mg Capsule) 600 mg PO TID [facility] Last Admin: 11/26/22 09:12 Dose: 600 mg Documented By: JARROD Glucose (Glucose Gel 15 Gm Gel..Gram.) 15 gm PO Q15M PRN; Protocol PRN Reason: per Hypoglycemia Standing Ord. Ferric Sodium Gluconate Complex 125 mg/ Sodium Chloride 110 mls @ 100 mls/hr IV DAILY [facility] Stop: 11/27/22 10:05 Last Admin: 11/26/22 10:16 Dose: Not Given Documented By: JARROD Non-Admin Reason: No Access Insulin Human Lispro (Insulin Lispro 100 Unit/Ml 3 Ml Vial) 0 unit SUBCUT QIDACHS [facility]; Protocol Last Admin: 11/26/22 08:20 Dose: Not Given Documented By: JARROD Non-Admin Reason: IV Running Lactase (Lactase Tablet) 1 tab PO TIDWM [facility] Last Admin: 11/26/22 09:12 Dose: 1 tab Documented By: JARROD Lisinopril (Lisinopril 10 Mg Tablet) 10 mg PO DAILY [facility]; Protocol Last Admin: 11/26/22 09:13 Dose: 10 mg Documented By: JARROD Melatonin (Melatonin 3 Mg Tablet) 6 mg PO BEDTIME PRN PRN Reason: Insomnia Last Admin: 11/25/22 01:08 Dose: 6 mg Documented By: ASHLEY Montelukast Sodium (Montelukast Sodium 10 Mg Tablet) 10 mg PO BEDTIME [facility] Last Admin: 11/25/22 21:11 Dose: 10 mg Documented By: AYDEE Multivitamins/Vitamin C (Multivitamin Tablet) 1 tab PO DAILY [facility] Last Admin: 11/26/22 09:12 Dose: 1 tab Documented By: JARROD Non-Formulary Medication (Carbamazepine [Tegretol Xr]) 400 mg PO BID [facility] Last Admin: 11/26/22 09:14 Dose: 400 mg Documented By: JARROD Omeprazole (Omeprazole 20 Mg Capsule.Dr) 20 mg PO BID@0630,1630 [facility] Last Admin: 11/26/22 06:17 Dose: 20 mg Documented By: AYDEE Ondansetron HCl (Ondansetron Hcl 4 Mg/2 Ml Vial) 4 mg IVPUSH Q8H PRN PRN Reason: Nausea and Vomiting Prazosin HCl (Prazosin Hcl 1 Mg Capsule) 4 mg PO BEDTIME [facility]; Protocol Last Admin: 11/25/22 21:11 Dose: 4 mg Documented By: AYDEE Prazosin HCl (Prazosin Hcl 1 Mg Capsule) 2 mg PO DAILY PRN; Protocol PRN Reason: Agitation Prednisone (Prednisone 20 Mg Tablet) 40 mg PO DAILY [facility] Risperidone (Risperidone 3 Mg Tablet) 3 mg PO BID [facility] Last Admin: 11/26/22 09:13 Dose: 3 mg Documented By: JARROD Sodium Chloride (0.9 % Sodium Chloride Flush 3 Ml Syringe) 3 ml IVFLUSH QSHIFT [facility] Last Admin: 11/26/22 09:09 Dose: Not Given Documented By: JARROD Non-Admin Reason: No Access Sumatriptan Succinate (Sumatriptan Succinate 100 Mg Tablet) 100 mg PO DAILY PRN PRN Reason: Migraine Headache Last Admin: 11/25/22 08:15 Dose: 100 mg Documented By: PRINCESS Topiramate (Topiramate 25 Mg Tablet) 150 mg PO BID [facility] Last Admin: 11/26/22 09:11 Dose: 150 mg Documented By: JARROD Vitamin D (Cholecalciferol (Vitamin D3) 25 Mcg Tablet) 50 mcg PO DAILY [facility] Last Admin: 11/26/22 09:12 Dose: 50 mcg Documented By: JARROD Labs 11/26/22 06:44 11/26/22 06:44 Labs: Laboratory Results - last 24 hr 11/25/22 11/25/22 11/25/22 11:34 17:07 20:03 MCV MCH MCHC RDW Plt Count MPV Absolute Nucleated RBC Nucleated RBC % (auto) Anion Gap Estim Creat Clear Calc Estimated GFR POC Glucose 188 H 78 169 H Fasting Glucose Calcium 11/26/22 11/26/22 06:44 07:16 MCV 80.4 MCH 25.0 L MCHC 31.1 RDW 17.3 H Plt Count 426 H D MPV 9.0 L Absolute Nucleated RBC 0.000 Nucleated RBC % (auto) 0.0 Anion Gap 14 Estim Creat Clear Calc 109.5 Estimated GFR > 60 POC Glucose 113 Fasting Glucose 119 H Calcium 8.7 Microbiology Microbiology Results: Microbiology 11/24/22 01:06 Gram Stain - Final Sputum - Expectorated Sputum Culture - Final 11/23/22 16:58 Blood Culture - Preliminary Blood - Venous No growth after 48 hours. 11/23/22 16:54 Blood Culture - Preliminary Blood - Venous No growth after 48 hours. Assessment and Plan (1) Sepsis: Status: Acute Plan 62F PMH moderate persistent asthma, psoriatic arthritis, mood disorder, htn, dm, copd, migraine presented with sob sepsis due to left sided pneumonia in immunicompromised patient joaquín dove, moderate persistent asthma/ copd with acute decompensation steroids, albuterol, still sob iron deficiency anemia acute on chronic htn Lisinopril DM insulin mood disorder Continue Abilify DVT prophylaxis with Lovenox Full code Reason for continued hospitalization: still sob Time Spent With Patient Time: Total time managing care of this patient today ____ minutes. Quality Stroke Does the patient have a stroke diagnosis?: No VTE Prior VTE?: No VTE Risk Level:: Medical - moderate - high VTE Device Contraindication: Treatment Not Indicated VTE Drug Contraindication: N/A - Med Ordered
[2022-11-26] MEDS: predniSONE 20 MG TABLET 40 MG PO (10:25)
[2022-11-26 11:01] LABS: Glucose, Whole Blood 124 mg/dL (60-115)
--- NOTE | 2022-11-26 16:05 | MHC.CM.PN ---
CM MET WITH PT AT HER REQUEST SHE REPORTS SHE SPOKE TO HER VISITING NURSE AND HE TOLD HER SHE SHOULD NOT RETURN HOME WITHOUT STR SHE REPORTS SHE FEELS SHE NEEDS STR SHE WAS INFORMED SHE WOULD NEED TO WAIT FOR A PT EVAL TOMORROW THEY ARE NOT IN ON SUNDAY AND THAT A REFERRAL WAS MADE TO [facility] PER HER REQUEST TO THE PREVIOUS CM.
[2022-11-26 16:34] LABS: Glucose, Whole Blood 153 mg/dL (60-115)
[2022-11-26] MEDS: Insulin Lispro 100 UNIT/ML 3 ML VIAL SUBCUT (17:08)
[2022-11-26] MEDS: Enoxaparin Sodium 40 MG/0.4 ML SYRINGE SUBCUT (20:51)
[2022-11-26] MEDS: Montelukast Sodium 10 MG TABLET PO (20:52)
[2022-11-26] MEDS: Prazosin HCL 1 MG CAPSULE 4 MG PO (20:52)
[2022-11-26 21:07] LABS: Glucose, Whole Blood 129 mg/dL (60-115)
[2022-11-27] VITALS (8 sets, daily range): BP systolic 138–158; BP diastolic 59–66; PULSE 71–97; RESP 16–20; TEMP 36–36.8; O2SAT 93–97
[2022-11-27] MEDS: Albuterol/Iprat 2.5/0.5MG 3 ML AMPUL.NEB INHALE ×4 (00:35→19:35)
[2022-11-27] MEDS: Melatonin 3 MG TABLET 6 MG PO ×2 (00:46→20:12)
[2022-11-27] MEDS: Omeprazole 20 MG CAPSULE.DR PO ×2 (06:22→16:15)
[2022-11-27 07:00] LABS: Hematocrit 25.6 % (37.0-47.0); Hemoglobin 7.7 g/dl (12.0-16.0); Mean Corpuscular HGB Conc 30.1 g/dl (31.0-35.0); Mean Corpuscular Hemoglobin 24.7 pg (27.0-33.0); Mean Corpuscular Volume 82.1 fL (80.0-98.0); Mean Platelet Volume 9.1 fL (9.4-12.3); Platelet Count 422 X10*3/uL (160-400); Red Blood Count 3.12 X10*6/uL (4.20-5.50); Red Cell Distribution Width 17.7 % (11.0-16.0); White Blood Count 14.7 X10*3/uL (4.8-10.8)
[2022-11-27 07:18] LABS: Anion Gap 13 (12-20); Blood Urea Nitrogen 14 mg/dL (9-16); Calcium 8.8 mg/dL (8.4-10.2); Carbon Dioxide 21 mmol/L (22-29); Chloride 110 mmol/L (96-108); Creatinine Clr Calc Pharmacy 101.8; Estimated Glomerular Filt Rate > 60; Glucose Fasting 133 mg/dL (60-99); Potassium 3.7 mmol/L (3.3-5.1); Sodium 140 mmol/L (135-145)
[2022-11-27 08:06] LABS: Glucose, Whole Blood 146 mg/dL (60-115)
[2022-11-27] MEDS: Topiramate 25 MG TABLET 150 MG PO ×2 (08:33→20:01)
[2022-11-27] MEDS: Gabapentin 300 MG CAPSULE 600 MG PO ×3 (08:34→20:00)
[2022-11-27] MEDS: Lactase TABLET 1 TAB PO ×4 (08:34→20:15)
[2022-11-27] MEDS: Aspirin Enteric Coated 81 MG TABLET.DR PO (08:34)
[2022-11-27] MEDS: estradioL 0.5 MG TABLET 1 MG PO (08:34)
[2022-11-27] MEDS: Cholecalciferol (Vitamin D3) 25 MCG TABLET 50 MCG PO (08:34)
[2022-11-27] MEDS: ARIPiprazole 15 MG TABLET PO (08:35)
[2022-11-27] MEDS: predniSONE 20 MG TABLET 40 MG PO (08:35)
[2022-11-27] MEDS: risperiDONE 3 MG TABLET PO ×2 (08:35→20:00)
[2022-11-27] MEDS: lisinopriL 10 MG TABLET PO (08:35)
[2022-11-27] MEDS: Ascorbic Acid 500 MG TABLET PO (08:35)
[2022-11-27] MEDS: Multivitamin TABLET 1 TAB PO (08:35)
[2022-11-27] MEDS: Folic Acid 1 MG TABLET PO (08:35)
--- NOTE | 2022-11-27 09:01 | HO.PM.IMPN ---
Subjective Subjective Date of Service: 11/27/22 Interval History: a bit better Physical Exam Vital Signs: Vital Signs: Last Vital Signs Temp 96.8 F 11/27/22 07:44 Pulse 85 11/27/22 07:44 Resp 20 11/27/22 07:44 BP 158/64 H 11/27/22 07:44 Pulse Ox 93 11/27/22 07:44 O2 Del Method Room Air 11/27/22 07:44 BMI result Body Mass Index 34.2 less wheezing Objective Data Active Medications Acetaminophen (Acetaminophen 325 Mg Tablet) 650 mg PO Q6H PRN PRN Reason: Pain, Mild (Pain Scale 1-3) Last Admin: 11/25/22 18:52 Dose: 650 mg Documented By: PRINCESS Acetaminophen (Acetaminophen Supp 650 Mg Supp.Rect) 650 mg [place] Q6H PRN PRN Reason: Pain, Mild (Pain Scale 1-3) Albuterol Sulfate (Albuterol Sulfate 90 Mcg 8 Gm Inhaler) 2 puff INHALE Q4H PRN PRN Reason: Wheezing Last Admin: 11/26/22 22:50 Dose: 2 puff Documented By: PIOTR Albuterol/Ipratropium (Albuterol/Iprat 2.5/0.5mg 3 Ml Ampul.Neb) 3 ml INHALE RQ4H WHILE AWAKE [facility] Last Admin: 11/27/22 08:01 Dose: Not Given Documented By: OMAR Non-Admin Reason: Patient Asleep Aripiprazole (Aripiprazole 15 Mg Tablet) 15 mg PO DAILY [facility] Last Admin: 11/27/22 08:35 Dose: 15 mg Documented By: SAHRA Ascorbic Acid (Ascorbic Acid 500 Mg Tablet) 500 mg PO DAILY [facility] Last Admin: 11/27/22 08:35 Dose: 500 mg Documented By: SAHRA Aspirin (Aspirin Enteric Coated 81 Mg Tablet.Dr) 81 mg PO DAILY [facility] Last Admin: 11/27/22 08:34 Dose: 81 mg Documented By: SAHRA Cefuroxime Axetil (Cefuroxime Axetil 500 Mg Tablet) 500 mg PO Q12H [facility] Last Admin: 11/26/22 20:52 Dose: 500 mg Documented By: PIOTR Dextrose (Dextrose 50 % 25 Gm/50 Ml Syringe) 25 gm IVPUSH Q15M PRN; Protocol PRN Reason: per Hypoglycemia Standing Ord. Dicyclomine HCl (Dicyclomine Hcl 10 Mg Capsule) 10 mg PO Q6H PRN PRN Reason: GI UPSET Enoxaparin Sodium (Enoxaparin Sodium 40 Mg/0.4 Ml Syringe) 40 mg SUBCUT Q24H [facility] Last Admin: 11/26/22 20:51 Dose: 40 mg Documented By: PIOTR Estradiol (Estradiol 0.5 Mg Tablet) 1 mg PO DAILY [facility] Last Admin: 11/27/22 08:34 Dose: 1 mg Documented By: SAHRA Folic Acid (Folic Acid 1 Mg Tablet) 1 mg PO DAILY [facility] Last Admin: 11/27/22 08:35 Dose: 1 mg Documented By: SAHRA Gabapentin (Gabapentin 300 Mg Capsule) 600 mg PO TID [facility] Last Admin: 11/27/22 08:34 Dose: 600 mg Documented By: SAHRA Glucose (Glucose Gel 15 Gm Gel..Gram.) 15 gm PO Q15M PRN; Protocol PRN Reason: per Hypoglycemia Standing Ord. Ferric Sodium Gluconate Complex 125 mg/ Sodium Chloride 110 mls @ 100 mls/hr IV DAILY [facility] Stop: 11/27/22 10:05 Last Admin: 11/26/22 10:16 Dose: Not Given Documented By: JARROD Non-Admin Reason: No Access Insulin Human Lispro (Insulin Lispro 100 Unit/Ml 3 Ml Vial) 0 unit SUBCUT QIDACHS [facility]; Protocol Last Admin: 11/27/22 08:18 Dose: Not Given Documented By: SAHRA Non-Admin Reason: No Insulin Coverage Lactase (Lactase Tablet) 1 tab PO TIDWM [facility] Last Admin: 11/27/22 08:34 Dose: 1 tab Documented By: SAHRA Lisinopril (Lisinopril 10 Mg Tablet) 10 mg PO DAILY [facility]; Protocol Last Admin: 11/27/22 08:35 Dose: 10 mg Documented By: SAHRA Melatonin (Melatonin 3 Mg Tablet) 6 mg PO BEDTIME PRN PRN Reason: Insomnia Last Admin: 11/27/22 00:46 Dose: 6 mg Documented By: PIOTR Montelukast Sodium (Montelukast Sodium 10 Mg Tablet) 10 mg PO BEDTIME [facility] Last Admin: 11/26/22 20:52 Dose: 10 mg Documented By: PIOTR Multivitamins/Vitamin C (Multivitamin Tablet) 1 tab PO DAILY [facility] Last Admin: 11/27/22 08:35 Dose: 1 tab Documented By: SAHRA Non-Formulary Medication (Carbamazepine [Tegretol Xr]) 400 mg PO BID [facility] Last Admin: 11/27/22 08:35 Dose: 400 mg Documented By: SAHRA Omeprazole (Omeprazole 20 Mg Capsule.Dr) 20 mg PO BID@0630,1630 [facility] Last Admin: 11/27/22 06:22 Dose: 20 mg Documented By: PIOTR Ondansetron HCl (Ondansetron Hcl 4 Mg/2 Ml Vial) 4 mg IVPUSH Q8H PRN PRN Reason: Nausea and Vomiting Prazosin HCl (Prazosin Hcl 1 Mg Capsule) 4 mg PO BEDTIME [facility]; Protocol Last Admin: 11/26/22 20:52 Dose: 4 mg Documented By: PIOTR Prazosin HCl (Prazosin Hcl 1 Mg Capsule) 2 mg PO DAILY PRN; Protocol PRN Reason: Agitation Prednisone (Prednisone 20 Mg Tablet) 40 mg PO DAILY [facility] Last Admin: 11/27/22 08:35 Dose: 40 mg Documented By: SAHRA Risperidone (Risperidone 3 Mg Tablet) 3 mg PO BID [facility] Last Admin: 11/27/22 08:35 Dose: 3 mg Documented By: SAHRA Sodium Chloride (0.9 % Sodium Chloride Flush 3 Ml Syringe) 3 ml IVFLUSH QSHIFT [facility] Last Admin: 11/26/22 23:48 Dose: Not Given Documented By: PIOTR Non-Admin Reason: No Access Sumatriptan Succinate (Sumatriptan Succinate 100 Mg Tablet) 100 mg PO DAILY PRN PRN Reason: Migraine Headache Last Admin: 11/25/22 08:15 Dose: 100 mg Documented By: PRINCESS Topiramate (Topiramate 25 Mg Tablet) 150 mg PO BID [facility] Last Admin: 11/27/22 08:33 Dose: 150 mg Documented By: SAHRA Vitamin D (Cholecalciferol (Vitamin D3) 25 Mcg Tablet) 50 mcg PO DAILY [facility] Last Admin: 11/27/22 08:34 Dose: 50 mcg Documented By: SAHRA Labs 11/27/22 06:28 11/27/22 06:28 Labs: Laboratory Results - last 24 hr 11/26/22 11/26/22 11/26/22 10:57 16:27 21:01 MCV MCH MCHC RDW Plt Count MPV Absolute Nucleated RBC Nucleated RBC % (auto) Anion Gap Estim Creat Clear Calc Estimated GFR POC Glucose 124 H 153 H 129 H Fasting Glucose Calcium 11/27/22 11/27/22 06:28 08:00 MCV 82.1 MCH 24.7 L MCHC 30.1 L RDW 17.7 H Plt Count 422 H MPV 9.1 L Absolute Nucleated RBC 0.000 Nucleated RBC % (auto) 0.0 Anion Gap 13 Estim Creat Clear Calc 101.8 Estimated GFR > 60 POC Glucose 146 H Fasting Glucose 133 H Calcium 8.8 Microbiology Microbiology Results: Microbiology 11/24/22 01:06 Gram Stain - Final Sputum - Expectorated Sputum Culture - Final Assessment and Plan (1) Sepsis: Status: Acute Plan 62F PMH moderate persistent asthma, psoriatic arthritis, mood disorder, htn, dm, copd, migraine presented with sob sepsis due to left sided pneumonia in immunicompromised patient cefuroxime moderate persistent asthma/ copd with acute decompensation prednisone, nebs iron deficiency anemia acute on chronic htn Lisinopril DM insulin mood disorder Continue Abilify DVT prophylaxis with Lovenox Full code Reason for continued hospitalization: awaiting pt eval Time Spent With Patient Time: Total time managing care of this patient today ____ minutes. Quality Stroke Does the patient have a stroke diagnosis?: No VTE Prior VTE?: No VTE Risk Level:: Medical - moderate - high VTE Device Contraindication: Treatment Not Indicated VTE Drug Contraindication: N/A - Med Ordered
[2022-11-27 11:26] LABS: Glucose, Whole Blood 175 mg/dL (60-115)
[2022-11-27] MEDS: Insulin Lispro 100 UNIT/ML 3 ML VIAL SUBCUT ×2 (12:12→16:15)
--- NOTE | 2022-11-27 15:14 | MHC.CM.PN ---
IMM 11/27/22 Patient has received a bed offer from her SNF preference, [facility]. They have offered a bed for tomorrow. Patient has accepted the bed. EVITA weinstein via BLS.
[2022-11-27 16:12] LABS: Glucose, Whole Blood 160 mg/dL (60-115)
[2022-11-27] MEDS: Acetaminophen 325 MG TABLET 650 MG PO (17:54)
[2022-11-27] MEDS: Dicyclomine HCl 10 MG CAPSULE PO (17:54)
[2022-11-27] MEDS: valACYclovir HCL 500 MG TABLET PO ×2 (17:54→20:00)
[2022-11-27] MEDS: Enoxaparin Sodium 40 MG/0.4 ML SYRINGE SUBCUT (19:52)
[2022-11-27] MEDS: 0.9 % Sodium Chloride Flush 3 ML SYRINGE IVFLUSH (19:54)
[2022-11-27 19:58] LABS: Glucose, Whole Blood 113 mg/dL (60-115)
[2022-11-27] MEDS: Montelukast Sodium 10 MG TABLET PO (20:01)
[2022-11-27] MEDS: Prazosin HCL 1 MG CAPSULE 4 MG PO (20:09)
[2022-11-28 04:00] VITALS: BP 157/67; PULSE 99; RESP 20; TEMP 36.1; O2SAT 93
[2022-11-28] MEDS: Omeprazole 20 MG CAPSULE.DR PO (05:28)
[2022-11-28] MEDS: Albuterol/Iprat 2.5/0.5MG 3 ML AMPUL.NEB INHALE ×3 (05:58→15:59)
[2022-11-28 06:00] VITALS: PULSE 95; RESP 16; O2SAT 94
[2022-11-28 06:58] VITALS: BP 171/71; PULSE 83; RESP 20; TEMP 36; O2SAT 95
[2022-11-28 07:20] LABS: Glucose, Whole Blood 145 mg/dL (60-115)
[2022-11-28] MEDS: estradioL 0.5 MG TABLET 1 MG PO (08:14)
[2022-11-28] MEDS: Gabapentin 300 MG CAPSULE 600 MG PO ×2 (08:14→14:37)
[2022-11-28] MEDS: valACYclovir HCL 500 MG TABLET PO (08:15)
[2022-11-28] MEDS: Topiramate 25 MG TABLET 150 MG PO (08:15)
[2022-11-28] MEDS: Lactase TABLET 1 TAB PO ×2 (08:15→11:50)
[2022-11-28] MEDS: Cholecalciferol (Vitamin D3) 25 MCG TABLET 50 MCG PO (08:15)
[2022-11-28] MEDS: lisinopriL 10 MG TABLET PO (08:15)
[2022-11-28] MEDS: predniSONE 20 MG TABLET 40 MG PO (08:15)
[2022-11-28] MEDS: ARIPiprazole 15 MG TABLET PO (08:15)
[2022-11-28] MEDS: Ascorbic Acid 500 MG TABLET PO (08:16)
[2022-11-28] MEDS: Aspirin Enteric Coated 81 MG TABLET.DR PO (08:16)
[2022-11-28] MEDS: Multivitamin TABLET 1 TAB PO (08:16)
[2022-11-28] MEDS: Folic Acid 1 MG TABLET PO (08:16)
[2022-11-28] MEDS: risperiDONE 3 MG TABLET PO (08:16)
--- NOTE | 2022-11-28 09:09 | PM.DS ---
DS: Providers Provider Date of Service: 11/28/22 Date of admission: 11/23/22 19:11 Primary care physician: Arabella Cerda NP DS: Diagnosis Discharge Diagnosis (1) Sepsis: Status: Acute DS: Summary Hospital Course Hospital Course: from initial hpi: 62-year-old female with pertinent history of mood disorder, essential hypertension, say-ihcckig-fasorasxb diabetes mellitus, COPD not on home oxygen, migraine, unspecified arthritis who presents to the emergency department for evaluation of cough and dyspnea. Patient states she has been having productive cough that started 2 days prior to presentation. It has been constant, progressive and without any relieving factors. It is associated with dyspnea, worse with exertion. Patient is unsure if she has had a fever. No chest discomfort, chills, abdominal pain, palpitations, changes in urinary or bowel habits. In the emergency department, patient was found to be septic and imaging concerning for pneumonia hospital course: Patient was admitted for sepsis due to pneumonia in immunocompromised patient. Complicated by moderate persistent asthma/COPD with acute decompensation. She was treated with steroids, ceftriaxone, bronchodilators. Symptoms improved, wheezing resolved. She will be discharged on 5 more days of prednisone and Ceftin. Also noted to have acute on chronic iron deficiency anemia. She was treated with IV iron. For hypertension was continue lisinopril. For diabetes was continue insulin. Further disorders continue on Abilify. For herpes simplex eruption was started on Valtrex. Due to debility from acute illness and psoriatic arthritis was seen by Physical therapy who recommended short-term rehab at residential facility to which patient will be discharged. She is expected require less than 30 days. Time Spent with Patient Time attestation: Total time managing care of this patient today ____ minutes. Discharge coordination time: Greater than 30 minutes Quality: Safe Use of Opioids Does Pt have an Active Cancer Diagnosis on the Problem List?: No Quality: Stroke Does the patient have a stroke diagnosis?: No Physical Exam Vital Signs: Vital Signs: Last Vital Signs Temp 96.8 F 11/28/22 06:58 Pulse 83 11/28/22 06:58 Resp 20 11/28/22 06:58 BP 171/71 H 11/28/22 06:58 Pulse Ox 95 11/28/22 06:58 O2 Del Method Room Air 11/28/22 06:58 BMI result Body Mass Index 34.2 General: AO X 3, no acute distress Resp: CTA bilateral, no accessory muscles used CVS: S1,S2,RRR GI: soft, non tender, non distended Neuro: motor grossly intact, alert Psych: appropriate affect, appropriate insight herpes simplex eruption on lips DS: Data Data Completed and Pending Labs on day of discharge: Laboratory Results - last 24 hr 11/27/22 11/27/22 11/27/22 11:23 16:07 19:55 POC Glucose 175 H 160 H 113 11/28/22 07:02 POC Glucose 145 H Preliminary micro results at discharge 11/23/22 16:58 Blood Culture - Preliminary Blood - Venous No growth after 48 hours. 11/23/22 16:54 Blood Culture - Preliminary Blood - Venous No growth after 48 hours. Discharge Plan Discharge Anticipated Discharge Date/Time: 11/28/22 08:58 Patient Disposition: Xfer SNF Discharge Diagnosis: pna, asthma Referrals: [facility] [Outside] - 1 Week Arabella Cerda NP [Primary Care Provider] - 1 Week Discharge Medications: New prednisone 20 mg Tablet 40 mg PO DAILY 5 Days Qty: 0 0RF valacyclovir 500 mg Tablet 500 mg PO BID 7 Days Qty: 0 0RF cefuroxime axetil 500 mg Tablet 500 mg PO Q12H 5 Days Qty: 0 0RF Continued methotrexate sodium 2.5 mg tablet 20 mg PO QWEEK Qty: 96 0RF folic acid 1 mg tablet 1 mg PO DAILY Qty: 90 1RF Humira(CF) Pen 40 mg/0.4 mL pen injector kit See Rx Instructions subcut .COMPLEX Qty: 2 2RF Rx Instructions: inject one - 40 mg/0.4 mL pen every 2 weeks subcut pantoprazole 40 mg tablet,delayed release (DR/EC) 40 mg PO BID Qty: 60 2RF ondansetron 4 mg tablet,disintegrating 4 mg PO Q8H PRN (Reason: nausea and vomiting) Qty: 10 0RF ascorbic acid (vitamin C) [Vitamin C] 250 mg tablet,chewable 500 mg PO DAILY lactase 3,000 unit tablet 3,000 - 6,000 unit PO TIDAC PRN (Reason: DAIRY INTOLERANCE) docusate sodium 100 mg capsule 100 mg PO BID gabapentin 300 mg capsule 600 mg PO TID dicyclomine 10 mg capsule 10 mg PO Q6H PRN (Reason: GI UPSET) prazosin 2 mg capsule 4 mg PO BEDTIME diclofenac sodium 1 % gel 1 g topical QID PRN (Reason: Pain) multivitamin with folic acid [Daily-Maikel (with folic acid)] 400 mcg tablet 1 tab PO DAILY carbamazepine [Tegretol XR] 400 mg tablet extended release 12 hr 400 mg PO BID cholecalciferol (vitamin D3) 50 mcg (2,000 unit) capsule 50 mcg PO DAILY montelukast [Singulair] 10 mg tablet 10 mg PO BEDTIME risperidone [Risperdal] 3 mg tablet 3 mg PO BID Patient Comments: 3 mg in the morning and 6 mg at bedtime. fexofenadine 180 mg tablet 180 mg PO BID meclizine 25 mg tablet 25 mg PO QID prazosin 2 mg capsule 2 mg PO DAILY PRN (Reason: Agitation) Rx Instructions: 2 mg PRN and 4 mg at bedtime. estradiol 1 mg tablet 1 mg PO DAILY lisinopril 10 mg tablet 10 mg PO DAILY vitamin B complex [Vitamins B Complex] Capsule 1 cap PO DAILY fluticasone propion-salmeterol 500-50 mcg/dose blister with device 1 ea inhalation BID aripiprazole 15 mg tablet 15 mg PO DAILY Xolair 150 mg/mL syringe subcut metformin 500 mg tablet 500 mg PO BID Xolair 75 mg/0.5 mL syringe subcut aspirin 81 mg tablet,delayed release (DR/EC) 81 mg PO DAILY topiramate 100 mg tablet 150 mg PO BID Incruse Ellipta 62.5 mcg/actuation blister with device 1 inh inhalation DAILY albuterol sulfate [Ventolin HFA] 90 mcg/actuation HFA aerosol inhaler 2 puff inhalation Q4H PRN (Reason: Wheezing) melatonin 3 mg tablet 9 mg PO BEDTIME sumatriptan succinate 100 mg tablet 100 mg PO DAILY PRN (Reason: Migraine Headache) Discharge Orders: Discharge Order (Routine); Ordered 11/28/22 Ordered By: Santos Quevedo Diet: Advance to usual diet Activity on Discharge: As tolerated Stand Alone Forms: Patient Portal Discharge page Care Plan Goals: recovery Health Concerns: leoncio, pna Plan of Treatment: prednisone, ceftin, vbaltrex for herpes simplex eruption Assessment: see above
--- NOTE | 2022-11-28 11:00 | MHC.CM.PN ---
IMM 11/27/22 [facility] is [facility] [place] today. She will transport via BLS @ 4pm.
[2022-11-28 11:16] LABS: Glucose, Whole Blood 265 mg/dL (60-115)
[2022-11-28] MEDS: Insulin Lispro 100 UNIT/ML 3 ML VIAL SUBCUT (11:49)
[2022-11-28 11:50] VITALS: PULSE 83; RESP 16; O2SAT 95
[2022-11-28 12:58] VITALS: BP 130/60; PULSE 92; RESP 20; TEMP 36.1; O2SAT 94
[2022-11-28] MEDS: Acetaminophen 325 MG TABLET 650 MG PO (13:02)
[2022-11-28] MEDS: Dicyclomine HCl 10 MG CAPSULE PO (13:02)
[2022-11-28 16:00] VITALS: BP 142/63; PULSE 85; PULSE 92; RESP 16; RESP 20; TEMP 36; O2SAT 94; O2SAT 96
[2022-11-28 17:01] LABS: Glucose, Whole Blood 147 mg/dL (60-115)
[2022-11-30 03:28] LABS: Legionella Ag Urine Not Detected (Not Detected)
== END 2022-11-28 17:16 | disposition skilled nursing facility (03) | DRG 871 ==
LOC: HO.ED 17:43 → HO.EDOVER 19:19 → HO.S3 19:36
PROVIDERS: Physician Assistant; Registered Nurse Emergency; Admitting Provider Student in an Organized Health Care Education/Training Program; Emergency Provider Student in an Organized Health Care Education/Training Program; PCP Nurse Practitioner Family; Visit Provider Internal Medicine
DX: A41.9 Sepsis, unspecified organism (principal); J18.9 Pneumonia, unspecified organism; J44.0 Chronic obstructive pulmonary disease with (acute) lower respiratory infection; J44.1 Chronic obstructive pulmonary disease with (acute) exacerbation; J45.41 Moderate persistent asthma with (acute) exacerbation; E87.1 Hypo-osmolality and hyponatremia; D84.9 Immunodeficiency, unspecified; E11.9 Type 2 diabetes mellitus without complications; F39 Unspecified mood [affective] disorder; D50.9 Iron deficiency anemia, unspecified; L40.50 Arthropathic psoriasis, unspecified; Z20.822 Contact with and (suspected) exposure to COVID-19; Z87.891 Personal history of nicotine dependence; Z79.82 Long term (current) use of aspirin; Z79.51 Long term (current) use of inhaled steroids; Z79.84 Long term (current) use of oral hypoglycemic drugs; Z79.631 Long term (current) use of antimetabolite agent; Z79.899 Other long term (current) drug therapy
CPT/HCPCS: 36415; 36600; 71046; 80048; 80053; 81003; 82272; 82803; 82947; 83540; 83605; 85025; 85027; 87040; 87070; 87205; 87449; 87635; 87640; 87641; 93005; 94640; 97161; 99285; J0456; J0696; J1650; J1956; J2916; J2920

== ENCOUNTER → 2022-11-23 19:11 | Outpatient (BNV) | payer OTHER, SELFPAY | PROVIDERS: Admitting Provider Student in an Organized Health Care Education/Training Program; Emergency Provider Student in an Organized Health Care Education/Training Program; PCP Nurse Practitioner Family; Visit Provider Student in an Organized Health Care Education/Training Program | DX: A41.9 Sepsis, unspecified organism (principal) | CPT/HCPCS: 99222; 99232; 99233; 99239 ==

== ENCOUNTER 2022-12-20 12:15 | Outpatient (AMB) | payer OTHER, SELFPAY ==
--- NOTE | 2022-12-20 12:33 | A.OFFVIS_ITS ---
Intake Vital Signs 12/20/22 12:34 Height 5 ft 1 in Weight 171 lb 15.369 oz BMI 32.5 BP 132/74 Blood Pressure Location Rt brachial Position Sitting Pulse 71 Pulse Source Pulse Oximeter Temp 97.5 F Temp Source Skin Pulse Oximetry (%) 97 Intake Visit Reasons: PSA Intake Note: Pt last seen 10/25/22, presents today for follow up and test results. She is on MTX 20mg weekly and Humira was d/c when she was in the hospital admitted for pneumonia. 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: No Accompanied by: Self / Same As Patient Allergies cephalexin Allergy (Intermediate, Verified 12/20/22 12:38) Diarrhea Iodinated Contrast Media [IV CONTRAST] Allergy (Intermediate, Verified 12/20/22 12:38) DIFF BREATHING morphine [MORPHINE] Allergy (Intermediate, Verified 12/20/22 12:38) HIVES nabumetone [NABUMETONE] Allergy (Intermediate, Verified 12/20/22 12:38) HIVES sulfamethoxazole [From BACTRIM] Allergy (Intermediate, Verified 12/20/22 12:38) HIVES trimethoprim [From BACTRIM] Allergy (Intermediate, Verified 12/20/22 12:38) HIVES dicloxacillin Allergy (Unknown, Verified 12/20/22 12:38) Rash dyclonine Allergy (Unknown, Verified 12/20/22 12:38) Unknown propranolol [Inderal LA] Allergy (Unknown, Verified 12/20/22 12:38) unknown quetiapine [Seroquel] Allergy (Unknown, Verified 12/20/22 12:38) rash Sulfa (Sulfonamide Antibiotics) Allergy (Unknown, Verified 12/20/22 12:38) hives amoxicillin [From Augmentin] Allergy (Verified 12/20/22 12:38) stomach pain clavulanic acid [From Augmentin] Allergy (Verified 12/20/22 12:38) stomach pain polyethylene glycol [From Golytely] Adverse Reaction (Severe, Verified 12/20/22 12:38) Hallucinations polyethylene glycol 3350 [From Golytely] Adverse Reaction (Severe, Verified 12/20/22 12:38) Hallucinations potassium chloride [From Golytely] Adverse Reaction (Severe, Verified 12/20/22 12:38) Hallucinations sodium [From Golytely] Adverse Reaction (Severe, Verified 12/20/22 12:38) Hallucinations sodium bicarbonate [From Golytely] Adverse Reaction (Severe, Verified 12/20/22 12:38) Hallucinations sodium chloride [From Golytely] Adverse Reaction (Severe, Verified 12/20/22 12:38) Hallucinations sodium sulfate [From Golytely] Adverse Reaction (Severe, Verified 12/20/22 12:38) Hallucinations doxycycline [DOXYCYCLINE] Adverse Reaction (Intermediate, Verified 12/20/22 12:38) NAUSEA & VOMITTING From INDERAL Allergy (Intermediate, Uncoded 12/20/22 12:38) RASH Codeine Sulfate Allergy (Unknown, Uncoded 12/20/22 12:38) Unknown Medication List - Last Reconciled 12/20/22 by Nael Yang MD albuterol sulfate 90 mcg/actuation (Ventolin HFA) 2 puffs inhalation Q4H PRN aripiprazole 15 mg PO DAILY ascorbic acid (vitamin C) (Vitamin C) 500 mg PO DAILY aspirin 81 mg PO DAILY carbamazepine ER (Tegretol XR) 400 mg PO BID cefuroxime axetil 500 mg PO Q12H 5 days cholecalciferol (vitamin D3) 50 mcg PO DAILY diclofenac sodium 1% 1 g topical QID PRN dicyclomine 10 mg PO Q6H PRN docusate sodium 100 mg PO BID estradiol 1 mg PO DAILY fexofenadine 180 mg PO BID fluticasone propion-salmeterol 500-50 mcg/dose 1 ea inhalation BID folic acid 1 mg PO DAILY gabapentin 600 mg PO TID Humira(CF) Pen (adalimumab) inject one - 40 mg/0.4 mL pen every 2 weeks subcut NS lactase 3,000 - 6,000 units PO TIDAC PRN lisinopril 10 mg PO DAILY meclizine 25 mg PO QID melatonin 9 mg PO BEDTIME metformin 500 mg PO BID methotrexate sodium 20 mg (8 x 2.5 mg) PO QWEEK montelukast (Singulair) 10 mg PO BEDTIME multivitamin with folic acid 400 mcg (Daily-Maikel (with folic acid)) 1 tab PO DAILY omalizumab (Xolair) mg subcut omalizumab (Xolair) mg subcut ondansetron 4 mg PO Q8H PRN pantoprazole 40 mg PO BID prazosin 4 mg PO BEDTIME prazosin 2 mg PO DAILY PRN prednisone 40 mg (2 x 20 mg) PO DAILY 5 days risperidone (Risperdal) 3 mg PO BID sumatriptan succinate 100 mg PO DAILY PRN topiramate 150 mg PO BID umeclidinium 62.5 mcg/actuation (Incruse Ellipta) 1 inh inhalation DAILY valacyclovir 500 mg PO BID 7 days vitamin B complex (Vitamins B Complex capsule) 1 cap PO DAILY HPI HPI Comments History of Present Illness Details 62-year-old female with seronegative art hritis (likely PsA)returns for follow-up. Last visit Humira was added to her methotrexate. Patient was admitted to the hospital last month and was found to have a pneumonia. Humira was discontinued. She was admitted to the hospital for about 5 days. She did not require oxygen and did not require pressors. Was discharged on antibiotics and prednisone. She states that recently she was diagnosed with laryngitis. She states that the Humira was helping. She has been having pain in her hands and knees. Initial history:This is a 61-year-old female with complex past medical history including asthma/COPD, anxiety, depression, migraines, lumbar spinal stenosis who presents for evaluation of diffuse joint pain. Patient has had bilateral knee pain for at least 6 years. She had numerous intra-articular steroid injections without any relief. She used to see Dr. Chance Christina as well as Dr. Mayorga at [place] and was most recently following up with Dr. Lucero. Patient received prednisone in the past for her arthritis without any significant relief. Also the intra-articular steroid injections do not provide any relief. Over the last year she has been having pain of her knuckles, wrists, fingers associated with morning stiffness lasting 2 hours improved with moving her hands around. Continues to have chronic knee pain that is unchanged. She stated that her older sister was diagnosed with rheumatoid arthritis. She was just recently started on prednisone 20 mg Twice daily for asthma attack. She stated that prednisone does not significantly improve her joint pain [facility] Medical History Spinal stenosis TMJ (dislocation of temporomandibular joint) Migraine COPD (chronic obstructive pulmonary disease) Asthma Depression Anxiety Prediabetes Arthritis of right knee Umbilical hernia Chronic idiopathic constipation Surgical History History of carpal tunnel release Hx of colonoscopy History of esophagogastroduodenoscopy (EGD) Hx of hand surgery H/O eye surgery Hx of hysterectomy Family History Father Bone cancer Mother Diabetes Family/Other Family history of breast cancer Social History Household Members: None Housing: Apartment Do you presently have visiting nurse or other home services: Yes (nursing once a week, home health aid 4x week) Alcohol intake: current Alcohol intake frequency: does not drink Patient Tobacco Use Status: Former Tobacco user service: No Review of Systems ENT Details: Laryngitis. Loss of voice Musc Reports arthralgias, Reports limited range of motion and Reports stiffness Physical Exam Const General: cooperative and no acute distress Nutritional Appearance: obese morbidly obese Limitations: ambulation with walker HEENT Head: Yes normocephalic and Yes atraumatic Resp Effort & Inspection: normal respiratory effort and able to speak in complete sentences Extrem Other: Significant right shoulder pain with right shoulder abduction Mild swelling of entire right thumb Bilateral knee crepitus Bilateral knee pain with full extension Office Procedures Joint Injection/Drain Joint Injection/Drain Primary Site: right knee Secondary Site: left knee Prep: site was prepped using sterile technique and ethochloride spray was applied Injected: 40 mg of and other (2 mL of 1% lidocaine) Approach Used: medial parapatellar Procedure: The patient tolerated the procedure well Coding Details: With the patient's consent the left knee was prepped with ChloraPrep and alcoho l. The skin was anesthetized with 2 cc of 1% lidocaine. The knee was then injected with 40 mg of triamcinolone and 2 cc of I % lidocaine. The patient tolerated the procedure with no immediate adverse effects. With the patient's consent the right knee was prepped with ChloraPrep and alcohol. The skin was anesthetized with 2 cc of 1% lidocaine. The knee was then injected with 40 mg of triamcinolone and 2 cc of I % lidocaine. The patient tolerated the procedure with no immediate adverse effects. 01797 - Large joint (X2) Procedure code (CPT) selection complete Results Reviewed Results Reviewed: Right hand/ wrist MSK ultrasound 03/06? Impression:? Mild tenosynovitis of the 2nd extensor compartment Assessment & Plan Assessment & Plan (1) Psoriatic arthritis: Comment: dx 03/06 Right thumb dactylitis 06/04 MTX started 07/04 effective Humira added 11/04 DC 12/04 due to pneumonia admission Code(s): L40.50 - Arthropathic psoriasis, unspecified Plan: This is a 62-year-old female with psoriatic arthritis who presents for follow- up. On methotrexate 20 mg weekly. Humira was discontinued as patient was ad mitted to the hospital last month with pneumonia. She did not require pressors or oxygen supplementation. Today patient is having laryngitis symptoms. On exam today she has swelling of right thumb as well as bilateral knee joint pain. With patient's consent, both knees were injected with Kenalog today. Follow-up in 6 weeks. Will consider other DMARDs next visit Labs before next visit in 6 weeks Infectious screening hepatitis panel and T spot negative 01/2022 (2) [facility]PC methotrexate user: Code(s): Z79.631 - terminal carman (current) use of antimetabolite agent Plan: Monitor safety labs (3) Tendinopathy of right rotator cuff: Code(s): M67.911 - Unspecified disorder of synovium and tendon, right shoulder Plan: S/p multiple surgeries. Follow-up with orthopedics Plan I spent 26 minutes reviewing patient's chart, evaluating patient, ordering diagnostic workup, counseling patient and documenting in the chart Orders: Orders Complete Blood Count Auto Diff 6 Weeks L40.50 - Arthropathic psoriasis, unspecified Erythrocyte Sedimentation Rate 6 Weeks L40.50 - Arthropathic psoriasis, unspecified AMB Joint Injection/Aspiration Today L40.50 - Arthropathic psoriasis, unspecified Comprehensive Met. Panel 6 Weeks L40.50 - Arthropathic psoriasis, unspecified C Reactive Protein 6 Weeks L40.50 - Arthropathic psoriasis, unspecified Coding Level of Care Code Est Pt Level 4 (87615) Diagnoses Psoriatic arthritis L40.50 terminal carman methotrexate user Z79.631 Tendinopathy of right rotator cuff M67.911 CPT Codes Coding - Large joint: 70018 - Large joint ([id number])
[2022-12-20 12:34] VITALS: BP 132/74; PULSE 71; TEMP 36.4; O2SAT 97; BMI 32.5
== END 2022-12-20 13:10 | disposition home or self-care (01) ==
PROVIDERS: PCP Nurse Practitioner Family; Visit Provider Student in an Organized Health Care Education/Training Program
DX: L40.50 Arthropathic psoriasis, unspecified (principal); Z79.631 Long term (current) use of antimetabolite agent; M67.911 Unspecified disorder of synovium and tendon, right shoulder; M25.561 Pain in right knee; M25.562 Pain in left knee
CPT/HCPCS: 20610; 99214

== ENCOUNTER → 2022-12-20 12:15 | Outpatient (BNVA) | payer OTHER, SELFPAY | PROVIDERS: PCP Nurse Practitioner Family; Visit Provider Student in an Organized Health Care Education/Training Program | DX: L40.50 Arthropathic psoriasis, unspecified (principal); M67.911 Unspecified disorder of synovium and tendon, right shoulder; Z79.631 Long term (current) use of antimetabolite agent | CPT/HCPCS: 20610; 99212 ==

== ENCOUNTER 2023-02-13 08:49 | Outpatient (AMB) | payer OTHER, SELFPAY ==
--- NOTE | 2023-02-13 09:19 | A.OFFVIS_ITS ---
Intake Vital Signs 02/13/23 09:20 Height 5 ft 1 in Weight 166 lb 0.129 oz BMI 31.4 BP 118/62 Pulse 67 Pulse Source Pulse Oximeter Temp 97 F Temp Source Skin Pulse Oximetry (%) 97 Oxygen Delivery Method Room Air Intake Visit Reasons: PSA Intake Note: Pt last seen 12/20/22 presents today for follow up and test results. Reports jose hand pain. Reports Humira d/c due to sepsis. Plasticator Required: No Accompanied by: Self / Same As Patient Allergies cephalexin Allergy (Intermediate, Verified 02/13/23 09:22) Diarrhea Iodinated Contrast Media [IV CONTRAST] Allergy (Intermediate, Verified 02/13/23 09:22) DIFF BREATHING morphine [MORPHINE] Allergy (Intermediate, Verified 02/13/23 09:22) HIVES nabumetone [NABUMETONE] Allergy (Intermediate, Verified 02/13/23 09:22) HIVES sulfamethoxazole [From BACTRIM] Allergy (Intermediate, Verified 02/13/23 09:22) HIVES trimethoprim [From BACTRIM] Allergy (Intermediate, Verified 02/13/23 09:22) HIVES dicloxacillin Allergy (Unknown, Verified 02/13/23 09:22) Rash dyclonine Allergy (Unknown, Verified 02/13/23 09:22) Unknown propranolol [Inderal LA] Allergy (Unknown, Verified 02/13/23 09:22) unknown quetiapine [Seroquel] Allergy (Unknown, Verified 02/13/23 09:22) rash Sulfa (Sulfonamide Antibiotics) Allergy (Unknown, Verified 02/13/23 09:22) hives amoxicillin [From Augmentin] Allergy (Verified 02/13/23 09:22) stomach pain clavulanic acid [From Augmentin] Allergy (Verified 02/13/23 09:22) stomach pain polyethylene glycol [From Golytely] Adverse Reaction (Severe, Verified 02/13/23 09:22) Hallucinations polyethylene glycol 3350 [From Golytely] Adverse Reaction (Severe, Verified 02/13/23 09:22) Hallucinations potassium chloride [From Golytely] Adverse Reaction (Severe, Verified 02/13/23 09:22) Hallucinations sodium [From Golytely] Adverse Reaction (Severe, Verified 02/13/23 09:22) Hallucinations sodium bicarbonate [From Golytely] Adverse Reaction (Severe, Verified 02/13/23 09:22) Hallucinations sodium chloride [From Golytely] Adverse Reaction (Severe, Verified 02/13/23 09:22) Hallucinations sodium sulfate [From Golytely] Adverse Reaction (Severe, Verified 02/13/23 09:22) Hallucinations doxycycline [DOXYCYCLINE] Adverse Reaction (Intermediate, Verified 02/13/23 09:22) NAUSEA & VOMITTING From INDERAL Allergy (Intermediate, Uncoded 02/13/23 09:22) RASH Codeine Sulfate Allergy (Unknown, Uncoded 02/13/23 09:22) Unknown Medication List - Last Reconciled 02/13/23 by Nael Yang MD albuterol sulfate 90 mcg/actuation (Ventolin HFA) 2 puffs inhalation Q4H PRN aripiprazole 15 mg PO DAILY ascorbic acid (vitamin C) (Vitamin C) 500 mg PO DAILY carbamazepine ER (Tegretol XR) 400 mg PO BID cefuroxime axetil 500 mg PO Q12H 5 days cholecalciferol (vitamin D3) 50 mcg PO DAILY diclofenac sodium 1% 1 g topical QID PRN dicyclomine 10 mg PO Q6H PRN docusate sodium 100 mg PO BID estradiol 1 mg PO DAILY fexofenadine 180 mg PO BID fluticasone propion-salmeterol 500-50 mcg/dose 1 ea inhalation BID folic acid 1 mg PO DAILY gabapentin 600 mg PO TID Humira(CF) Pen (adalimumab) inject one - 40 mg/0.4 mL pen every 2 weeks subcut NS lactase 3,000 - 6,000 units PO TIDAC PRN lisinopril 10 mg PO DAILY meclizine 25 mg PO QID melatonin 9 mg PO BEDTIME metformin 500 mg PO BID methotrexate sodium 20 mg (8 x 2.5 mg) PO QWEEK montelukast (Singulair) 10 mg PO BEDTIME multivitamin with folic acid 400 mcg (Daily-Maikel (with folic acid)) 1 tab PO DAILY omalizumab (Xolair) mg subcut omalizumab (Xolair) mg subcut ondansetron 4 mg PO Q8H PRN pantoprazole 40 mg PO BID prazosin 4 mg PO BEDTIME prazosin 2 mg PO DAILY PRN risperidone (Risperdal) 3 mg PO BID sumatriptan succinate 100 mg PO DAILY PRN topiramate 150 mg PO BID umeclidinium 62.5 mcg/actuation (Incruse Ellipta) 1 inh inhalation DAILY valacyclovir 500 mg PO BID 7 days vitamin B complex (Vitamins B Complex capsule) 1 cap PO DAILY HPI HPI Comments History of Present Illness Details 62-year-old female with seronegative art hritis (likely PsA)returns for follow-up. Patient is on methotrexate 20 mg weekly. Folic acid 1 mg daily. She states that she has been having worsening bilateral hand pain, bilateral shoulder pain, worse on the right as well as bilateral knee pain. Initial history:This is a 61-year-old female with complex past medical history including asthma/COPD, anxiety, depression, migraines, lumbar spinal stenosis who presents for evaluation of diffuse joint pain. Patient has had bilateral knee pain for at least 6 years. She had numerous intra-articular steroid injections without any relief. She used to see Dr. Chance Christina as well as Dr. Mayorga at [facility] and was most recently following up with Dr. Lucero. Patient received prednisone in the past for her arthritis without any significant relief. Also the intra-articular steroid injections do not provide any relief. Over the last year she has been having pain of her knuckles, wrists, fingers associated with morning stiffness lasting 2 hours improved with moving her hands around. Continues to have chronic knee pain that is unchanged. She stated that her older sister was diagnosed with rheumatoid arthritis. She was just recently started on prednisone 20 mg Twice daily for asthma attack. She stated that prednisone does not significantly improve her joint pain PFSH Medical History Spinal stenosis TMJ (dislocation of temporomandibular joint) Migraine COPD (chronic obstructive pulmonary disease) Asthma Depression Anxiety Prediabetes Arthritis of right knee Umbilical hernia Chronic idiopathic constipation Surgical History History of carpal tunnel release Hx of colonoscopy History of esophagogastroduodenoscopy (EGD) Hx of hand surgery H/O eye surgery Hx of hysterectomy Family History Father Bone cancer Mother Diabetes Family/Other Family history of breast cancer Social History Household Members: None Housing: Apartment Do you presently have visiting nurse or other home services: Yes (nursing once a week, home health aid 4x week) Alcohol intake: current Alcohol intake frequency: does not drink Patient Tobacco Use Status: Former Tobacco user service: No Review of Systems Musc Reports arthralgias, Reports limited range of motion and Reports stiffness Physical Exam Vital Signs: Last Vital Signs Temp 97 F 02/13/23 09:20 Pulse 67 02/13/23 09:20 BP 118/62 02/13/23 09:20 Pulse Ox 97 02/13/23 09:20 Oxygen Delivery Method Room Air 02/13/23 09:20 BMI result Body Mass Index 31.4 Const General: cooperative and no acute distress Nutritional Appearance: obese morbidly obese Limitations: ambulation with walker HEENT Head: Yes normocephalic and Yes atraumatic Resp Effort & Inspection: normal respiratory effort and able to speak in complete sentences Extrem Other: Significant right shoulder pain with right shoulder abduction Bilateral wrist pain with flexion and extension bilateral diffuse MCP, PIP and DIP tenderness without significant swelling Bilateral knee crepitus Bilateral knee pain with full extension Results Reviewed Results Reviewed: Right hand/ wrist MSK ultrasound 03/06? Impression:? Mild tenosynovitis of the 2nd extensor compartment Assessment & Plan Assessment & Plan (1) Psoriatic arthritis: Comment: dx 03/06 Right thumb dactylitis 06/04 MTX started 07/04 effective Humira added 11/04 DC 12/04 due to pneumonia admission Code(s): L40.50 - Arthropathic psoriasis, unspecified Plan: This is a 62-year-old female with psoriatic arthritis who presents for follow- up. On methotrexate 20 mg weekly. Continues to have active synovitis. Will need to DMARDs. Patient was admitted to the hospital with pneumonia after Humira was started. Discussed risks and benefits of Orencia. Amongst biologics, Orencia has been shown to have lower risk of hospitalized infection. PMID:?[id number] https://pubmed.ncbi.nlm.nih.gov/99879758 Patient agreed to proceed. 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 Follow-up with orthopedics Plan I spent 26 minutes reviewing patient's chart, evaluating patient, ordering diagnostic workup, counseling patient and documenting in the chart Orders: Orders Complete Blood Count Auto Diff 3 Months Z79.631 - assisted (current) use of antimetabolite agent C Reactive Protein 3 Months Z79.631 - workday consultant (current) use of antimetabolite agent Complete Blood Count Auto Diff Today Z79.631 - assisted (current) use of antimetabolite agent Comprehensive Met. Panel 3 Months Z79.631 - assisted (current) use of antimetabolite agent Erythrocyte Sedimentation Rate 3 Months Z79.631 - workday consultant (current) use of antimetabolite agent Comprehensive Met. 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
[2023-02-13 09:20] VITALS: BP 118/62; PULSE 67; TEMP 36.1; O2SAT 97; BMI 31.4
== END 2023-02-13 09:39 | disposition home or self-care (01) ==
LOC: HO.RHE 08:49
PROVIDERS: PCP Nurse Practitioner Family; Visit Provider Student in an Organized Health Care Education/Training Program
DX: L40.50 Arthropathic psoriasis, unspecified (principal); Z79.631 Long term (current) use of antimetabolite agent; M67.911 Unspecified disorder of synovium and tendon, right shoulder
CPT/HCPCS: 99214

== ENCOUNTER → 2023-02-13 08:49 | Outpatient (BNVA) | payer OTHER, SELFPAY | PROVIDERS: PCP Nurse Practitioner Family; Visit Provider Student in an Organized Health Care Education/Training Program | DX: L40.50 Arthropathic psoriasis, unspecified (principal); M67.911 Unspecified disorder of synovium and tendon, right shoulder; Z79.631 Long term (current) use of antimetabolite agent | CPT/HCPCS: 99212 ==

== ENCOUNTER 2023-02-13 09:44 | Outpatient (REF) | payer OTHER, SELFPAY ==
[2023-02-13 11:21] LABS: MANUAL DIFF FLAG NO
[2023-02-13 11:23] LABS: Basophils Absolute Auto 0.1 X10*3/uL (0.0-0.2); Basophils Percent Auto 1.1 % (0-2); Eosinophils Absolute Auto 0.2 X10*3/uL (0.0-0.4); Eosinophils Percent Auto 2.8 % (0-4); Imm Gran Abs Auto 0.02 X10*3/uL (0.00-0.03); Imm Gran Pct Auto 0.3 % (0.0-0.4); Lymphocytes Absolute Auto 2.2 X10*3/uL (1.2-4.9); Lymphocytes Percent Auto 33.6 % (20-40); Mean Corpuscular HGB Conc 32.4 g/dl (31.0-35.0); Mean Corpuscular Hemoglobin 28.2 pg (27.0-33.0); Mean Corpuscular Volume 86.9 fL (80.0-98.0); Mean Platelet Volume 9.5 fL (9.4-12.3); Monocytes Absolute Auto 0.5 X10*3/uL (0.1-1.2); Monocytes Percent Auto 7.4 % (2-11); Neutrophils Absolute Auto 3.5 x10*3/uL (2.0-8.3); Neutrophils Percent Auto 54.8 % (45-73); Platelet Count 305 X10*3/uL (160-400); Red Blood Count 4.26 X10*6/uL (4.20-5.50); Red Cell Distribution Width 18.3 % (11.0-16.0); White Blood Count 6.5 X10*3/uL (4.8-10.8)
[2023-02-13 11:56] LABS: Alanine Aminotransferase 16 U/L (0-31); Alkaline Phosphatase 93 U/L (39-117); Anion Gap 12 (12-20); Aspartate Amino Transferase 15 U/L (5-31); Bilirubin Total 0.1 mg/dL (0.0-1.0); Blood Urea Nitrogen 12 mg/dL (9-16); C Reactive Protein 1.21 mg/dL (< or = 0.50); Carbon Dioxide 27 mmol/L (22-29); Chloride 105 mmol/L (96-108); Estimated Glomerular Filt Rate > 60; Glucose Random 121 mg/dL (60-115); Potassium 4.3 mmol/L (3.3-5.1); Sodium 140 mmol/L (135-145); Total Protein 6.9 g/dL (6.5-8.0)
[2023-02-13 12:00] LABS: Erythrocyte Sedimentation Rate 12 MM/HR (0-20)
== END 2023-02-13 09:45 | disposition home or self-care (01) ==
LOC: HO.10HDL 09:44
PROVIDERS: Visit Provider Student in an Organized Health Care Education/Training Program
DX: L40.50 Arthropathic psoriasis, unspecified (principal); Z79.631 Long term (current) use of antimetabolite agent
CPT/HCPCS: 36415; 80053; 85025; 85652; 86140

== ENCOUNTER 2023-02-23 20:08 | Emergency (ER) | payer OTHER, SELFPAY ==
[2023-02-23 20:20] VITALS: BP 186/110; PULSE 66; O2SAT 99
[2023-02-23 20:42] VITALS: BP 125/49; PULSE 68; RESP 17; TEMP 36.5; O2SAT 97; BMI 31.5
--- NOTE | 2023-02-23 20:44 | ED_ITS ---
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 She denies any fevers or chills and denies noticing any redness or swelling Related Data Home Medications Medication Instructions Recorded Confirmed carbamazepine 400 mg 400 mg PO BID 02/11/20 11/23/22 tablet,extended release,12 hr (Tegretol XR) cholecalciferol (vitamin D3) 50 50 mcg PO DAILY 02/11/20 11/23/22 mcg (2,000 unit) capsule montelukast 10 mg tablet 10 mg PO BEDTIME 02/11/20 11/23/22 (Singulair) fexofenadine 180 mg tablet 180 mg PO BID 08/30/21 11/23/22 estradiol 1 mg tablet 1 mg PO DAILY 01/13/22 11/23/22 lisinopril 10 mg tablet 10 mg PO DAILY 01/13/22 11/23/22 meclizine 25 mg tablet 25 mg PO QID 05/12/22 11/23/22 prazosin 2 mg capsule 2 mg PO DAILY PRN Agitation 05/12/22 11/23/22 risperidone 3 mg tablet (Risperdal) 3 mg PO BID 05/12/22 11/23/22 aripiprazole 15 mg tablet 15 mg PO DAILY 05/30/22 11/23/22 fluticasone 500 mcg-salmeterol 50 1 ea inhalation BID 05/30/22 11/23/22 mcg/dose blistr powdr for inhalation metformin 500 mg tablet 500 mg PO BID 05/30/22 11/23/22 omalizumab 150 mg/mL subcutaneous mg subcut 05/30/22 09/08/22 syringe (Xolair) omalizumab 75 mg/0.5 mL mg subcut 05/30/22 09/08/22 subcutaneous syringe (Xolair) vitamin B complex (Vitamins B 1 cap PO DAILY 05/30/22 11/23/22 Complex capsule) topiramate 100 mg tablet 150 mg PO BID 08/02/22 11/23/22 umeclidinium 62.5 mcg/actuation 1 inh inhalation DAILY 08/02/22 11/23/22 blister powder for inhalation (Incruse Ellipta) albuterol sulfate 90 mcg/actuation 2 puff inhalation Q4H PRN Wheezing 09/08/22 11/23/22 aerosol inhaler (Ventolin HFA) melatonin 3 mg tablet 9 mg PO BEDTIME 09/08/22 11/23/22 sumatriptan succinate 100 mg tablet 100 mg PO DAILY PRN Migraine 09/08/22 11/23/22 Headache ascorbic acid (vitamin C) 250 mg 500 mg PO DAILY 11/23/22 11/23/22 chewable tablet (Vitamin C) diclofenac sodium 1 % topical gel 1 g topical QID PRN Pain 11/23/22 11/23/22 dicyclomine 10 mg capsule 10 mg PO Q6H PRN GI UPSET 11/23/22 11/23/22 docusate sodium 100 mg capsule 100 mg PO BID 11/23/22 11/23/22 gabapentin 300 mg capsule 600 mg PO TID 11/23/22 11/23/22 lactase 3,000 unit tablet 3,000 - 6,000 unit PO TIDAC PRN 11/23/22 11/23/22 DAIRY INTOLERANCE multivitamin with folic acid 400 1 tab PO DAILY 11/23/22 11/23/22 mcg tablet (Daily-Maikel (with folic acid)) prazosin 2 mg capsule 4 mg PO BEDTIME 11/23/22 11/23/22 Previous Rx's Medication Instructions Recorded ondansetron 4 mg disintegrating 4 mg PO Q8H PRN nausea and 03/26/22 tablet vomiting #10 tabs folic acid 1 mg tablet 1 mg PO DAILY #90 tabs 09/08/22 Humira(CF) Pen 40 mg/0.4 mL See Rx Instructions subcut 10/31/22 subcutaneous kit (adalimumab) .COMPLEX #2 ea pantoprazole 40 mg tablet,delayed 40 mg PO BID #60 tabs 11/03/22 release cefuroxime axetil 500 mg tablet 500 mg PO Q12H 5 days #0 tabs 11/28/22 valacyclovir 500 mg tablet 500 mg PO BID 7 days #0 tabs 11/28/22 methotrexate sodium 2.5 mg tablet 20 mg (8 x 2.5 mg) PO QWEEK #96 01/29/23 tabs Taltz Autoinjector 80 mg/mL See Rx Instructions subcut Q4W #2 02/19/23 subcutaneous (ixekizumab) mL Allergies Allergy/AdvReac Type Severity Reaction Status Date / Time cephalexin Allergy Intermediate Diarrhea Verified 02/23/23 20:20 Iodinated Contrast Media Allergy Intermediate DIFF Verified 02/23/23 20:20 [IV CONTRAST] BREATHING morphine [MORPHINE] Allergy Intermediate HIVES Verified 02/23/23 20:20 nabumetone [NABUMETONE] Allergy Intermediate HIVES Verified 02/23/23 20:20 sulfamethoxazole Allergy Intermediate HIVES Verified 02/23/23 20:20 [From BACTRIM] trimethoprim [From BACTRIM] Allergy Intermediate HIVES Verified 02/23/23 20:20 dicloxacillin Allergy Unknown Rash Verified 02/23/23 20:20 dyclonine Allergy Unknown Unknown Verified 02/23/23 20:20 propranolol [Inderal LA] Allergy Unknown unknown Verified 02/23/23 20:20 quetiapine [Seroquel] Allergy Unknown rash Verified 02/23/23 20:20 Sulfa (Sulfonamide Allergy Unknown hives Verified 02/23/23 20:20 Antibiotics) amoxicillin [From Augmentin] Allergy stomach Verified 02/23/23 20:20 pain clavulanic acid Allergy stomach Verified 02/23/23 20:20 [From Augmentin] pain polyethylene glycol AdvReac Severe Hallucinati Verified 02/23/23 20:20 [From Golytely] ons polyethylene glycol 3350 AdvReac Severe Hallucinati Verified 02/23/23 20:20 [From Golytely] ons potassium chloride AdvReac Severe Hallucinati Verified 02/23/23 20:20 [From Golytely] ons sodium [From Golytely] AdvReac Severe Hallucinati Verified 02/23/23 20:20 ons sodium bicarbonate AdvReac Severe Hallucinati Verified 02/23/23 20:20 [From Golytely] ons sodium chloride AdvReac Severe Hallucinati Verified 02/23/23 20:20 [From Golytely] ons sodium sulfate AdvReac Severe Hallucinati Verified 02/23/23 20:20 [From Golytely] ons doxycycline [DOXYCYCLINE] AdvReac Intermediate NAUSEA & Verified 02/23/23 20:20 VOMITTING From INDERAL Allergy Intermediate RASH Uncoded 02/23/23 20:20 Codeine Sulfate Allergy Unknown Unknown Uncoded 02/23/23 20:20 Review of Systems 2 Review of Systems: Pertinent positives and negatives as stated in the HPI [facility] Past Medical History Source: nursing notes reviewed Onset Date is defined in the Problem List Problems that require an onset date and time if occurred within 24 hrs of arrival to the ED Aortic Dissection and Rupture; Neurologic impairment; Cardiopulmonary Arrest; Endotracheal Intubation; Insertion or Replacement of Mechanical Circulatory Assist Device Medical History Spinal stenosis TMJ (dislocation of temporomandibular joint) Migraine COPD (chronic obstructive pulmonary disease) Asthma Depression Anxiety Prediabetes Arthritis of right knee Umbilical hernia Chronic idiopathic constipation Surgical History History of carpal tunnel release Hx of colonoscopy History of esophagogastroduodenoscopy (EGD) Hx of hand surgery H/O eye surgery Hx of hysterectomy Family History Family History Father Bone cancer Mother Diabetes Family/Other Family history of breast cancer Social History Social History Household Members: None Housing: Apartment Do you presently have visiting nurse or other home services: Yes (nursing once a week, home health aid 4x week) Alcohol intake: current Alcohol intake frequency: does not drink Patient Tobacco Use Status: Former Tobacco user Smoked in Last 30 Days: No Use of substances other than those prescribed or required for medical reasons: No Any prior treatment program specific to substance use: No Advance Directives: No Advance Directives Information Provided: Yes Patient : No service: No Physical Exam ED Vital Signs: Vital Signs - 24 hr 02/23/23 20:42 02/23/23 22:51 Temperature 97.7 F 97.8 F Pulse Rate 68 65 Respiratory Rate 17 18 Blood Pressure 125/49 L 135/46 L Pulse Oximetry 97 97 Oxygen Delivery Method Room Air Room Air BMI result Body Mass Index 31.5 VITAL SIGNS: Reviewed. GENERAL: Well developed, well nourished, in no acute distress. HEAD: Normocephalic/atraumatic EYES: PERRLA, EOMI EARS: Ext canals without abnormality NOSE: Nares patent bilateral OROPHARYNX: no oral lesions noted, posterior pharynx clear NECK: Supple, no adenopathy LUNGS: Normal breath sounds. No adventitious sounds or accessory muscle use. SpO2<97> CARDIOVASCULAR: Regular rate and rhythm without noted murmurs ABDOMEN: Soft, non-tender, non-distended with bowel sounds. MUSCULOSKELETAL: No tenderness, deformities, or effusions noted on gross inspection. EXTREMITIES: No cyanosis, clubbing or edema. BILATERAL KNEES/BILATERAL SHOULDERS: No erythema or induration, no obvious deformity, no effusions, no swelling SKIN: Inspection of the skin reveals no rashes NEUROLOGIC: Alert and oriented x 4. Strength and sensation to light touch were grossly intact x 4. Course Course Course Narrative: This is an RME: Additional HPI, ROS, PE not included below will be deferred to primary provider. Patient is a 62-year-old female who presents emergency department for evaluation of arthralgias. She reports recent diagnosis of rheumatoid arthritis approximately a month ago she is currently on methotrexate. Over the past week she states she has been having significant increase of pain to the bilateral upper extremities shoulders and knees. Atraumatic. She is followed by rheumatology here at [facility]. She reports some rhinorrhea, attributes to allergies, no other URI sx. Plan: Labs, viral testing Medications Administered Discontinued Medications Generic Name Dose Route Start Last Admin Trade Name Freq PRN Reason Stop Dose Admin Acetaminophen 975 mg 02/24/23 00:19 02/24/23 00:37 Acetaminophen 325 Mg Tablet PO 02/24/23 00:20 Not Given ONCE ONE Medical Decision Making Medical Decision Making MDM Narrative: This is a 62-year-old female with history and clinical presentation, DDX: RA pain, possible action, viral illness I reviewed all investigations and hematologic indices are negative for leukocytosis or left shift, there is no anemia or thrombocytopenia. Chemistry indices do not demonstrate any CINTIA and there is no electrolyte or liver enzyme derangements. I do note a mild drop in sodium. Viral testing is negative for influenza or COVID-19. I did offer patient Tylenol which she declined, and when I ask the patient what medication I could give her she states she does not know. She is otherwise stable for discharge back to home and she was strongly encouraged to keep her appointment tomorrow for the injection. Differential Diagnosis Differential Diagnoses: The differential diagnosis associated with the presentation includes Please see the discussion above Admission/Observation Consideration of admission/observation: Escalation of care including admission/observation considered Please see the discussion above Lab Data MDM Lab Attestation statement: I reviewed the patient's lab results. Please see the discussion above 02/23/23 21:48 02/23/23 21:48 Labs: Lab Results 02/23/23 Range/Units 21:48 WBC 9.5 (4.8-10.8) X10*3/uL RBC 4.40 (4.20-5.50) X10*6/uL Hgb 12.6 (12.0-16.0) g/dl Hct 38.3 (37.0-47.0) % MCV 87.0 (80.0-98.0) fL MCH 28.6 (27.0-33.0) pg MCHC 32.9 (31.0-35.0) g/dl RDW 17.0 H (11.0-16.0) % Plt Count 258 (160-400) X10*3/uL MPV 9.4 (9.4-12.3) fL Immature Gran % (Auto) 0.2 (0.0-0.4) % Neut % (Auto) 47.8 (45-73) % Lymph % (Auto) 41.0 H (20-40) % Independence % (Auto) 7.9 (2-11) % Eos % (Auto) 2.5 (0-4) % Baso % (Auto) 0.6 (0-2) % Lymph # (Auto) 3.9 (1.2-4.9) X10*3/uL Independence # (Auto) 0.8 (0.1-1.2) X10*3/uL Eos # (Auto) 0.2 (0.0-0.4) X10*3/uL Baso # (Auto) 0.1 (0.0-0.2) X10*3/uL Abs Immat Gran (auto) 0.02 (0.00-0.03) X10*3/uL Absolute Neuts (auto) 4.6 (2.0-8.3) x10*3/uL Absolute Nucleated RBC 0.000 (0.0-0.012) X10*3/uL Nucleated RBC % (auto) 0.0 (0.0-0.2) /100WBC Sodium 133 L (135-145) mmol/L Potassium 4.8 (3.3-5.1) mmol/L Chloride 100 (96-108) mmol/L Carbon Dioxide 25 (22-29) mmol/L Anion Gap 13 (12-20) BUN 10 (9-16) mg/dL Creatinine 0.67 (0.5-1.4) mg/dL Estim Creat Clear Calc 83.1 Estimated GFR > 60 Random Glucose 86 (60-115) mg/dL Calcium 9.0 (8.4-10.2) mg/dL Magnesium 2.0 (1.6-2.6) mg/dL Total Bilirubin 0.2 (0.0-1.0) mg/dL AST 16 (5-31) U/L ALT 18 (0-31) U/L Alkaline Phosphatase 97 (39-117) U/L Total Protein 7.2 (6.5-8.0) g/dL Albumin 4.2 (3.5-5.0) g/dL COVID-19 (DHIRAJ) Negative (Negative) COVID-19 Clin Com See Note Influenza Type A (MANNY) Negative (Negative) Influenza Type B (MANNY) Negative (Negative) Influenza A & B Note See Note External Record Review External record reviewed: Outpatient record and Prior outpatient labs Discharge Plan Discharge Clinical Impression: Polyarthralgia Patient Disposition: Home, Self-Care Instructions: Arthralgia (ED) Additional Instructions: 1. Resume all home medications as prescribed. 2. Please keep the appointment for your rheumatoid arthritis medicine tomorrow 3. Please follow-up with your cement or concrete finishing supervisor at your earliest convenience. Return to the ER for any worsening symptoms Prescriptions: No Action folic acid 1 mg tablet 1 mg PO DAILY Qty: 90 1RF Humira(CF) Pen 40 mg/0.4 mL pen injector kit See Rx Instructions subcut .COMPLEX Qty: 2 2RF Rx Instructions: inject one - 40 mg/0.4 mL pen every 2 weeks subcut pantoprazole 40 mg tablet,delayed release (DR/EC) 40 mg PO BID Qty: 60 2RF methotrexate sodium 2.5 mg tablet 20 mg PO QWEEK Qty: 96 0RF Taltz Autoinjector 80 mg/mL auto-injector See Rx Instructions subcut Q4W Qty: 2 2RF Rx Instructions: 160 mg (2 pens) at week 0, then 80 mg every 4 weeks ondansetron 4 mg tablet,disintegrating 4 mg PO Q8H PRN (Reason: nausea and vomiting) Qty: 10 0RF ascorbic acid (vitamin C) [Vitamin C] 250 mg tablet,chewable 500 mg PO DAILY lactase 3,000 unit tablet 3,000 - 6,000 unit PO TIDAC PRN (Reason: DAIRY INTOLERANCE) docusate sodium 100 mg capsule 100 mg PO BID gabapentin 300 mg capsule 600 mg PO TID dicyclomine 10 mg capsule 10 mg PO Q6H PRN (Reason: GI UPSET) prazosin 2 mg capsule 4 mg PO BEDTIME diclofenac sodium 1 % gel 1 g topical QID PRN (Reason: Pain) multivitamin with folic acid [Daily-Maikel (with folic acid)] 400 mcg tablet 1 tab PO DAILY valacyclovir 500 mg Tablet 500 mg PO BID 7 Days Qty: 0 0RF cefuroxime axetil 500 mg Tablet 500 mg PO Q12H 5 Days Qty: 0 0RF carbamazepine [Tegretol XR] 400 mg tablet extended release 12 hr 400 mg PO BID cholecalciferol (vitamin D3) 50 mcg (2,000 unit) capsule 50 mcg PO DAILY montelukast [Singulair] 10 mg tablet 10 mg PO BEDTIME risperidone [Risperdal] 3 mg tablet 3 mg PO BID Patient Comments: 3 mg in the morning and 6 mg at bedtime. fexofenadine 180 mg tablet 180 mg PO BID meclizine 25 mg tablet 25 mg PO QID prazosin 2 mg capsule 2 mg PO DAILY PRN (Reason: Agitation) Rx Instructions: 2 mg PRN and 4 mg at bedtime. estradiol 1 mg tablet 1 mg PO DAILY lisinopril 10 mg tablet 10 mg PO DAILY vitamin B complex [Vitamins B Complex] Capsule 1 cap PO DAILY fluticasone propion-salmeterol 500-50 mcg/dose blister with device 1 ea inhalation BID aripiprazole 15 mg tablet 15 mg PO DAILY Xolair 150 mg/mL syringe subcut metformin 500 mg tablet 500 mg PO BID Xolair 75 mg/0.5 mL syringe subcut topiramate 100 mg tablet 150 mg PO BID Incruse Ellipta 62.5 mcg/actuation blister with device 1 inh inhalation DAILY albuterol sulfate [Ventolin HFA] 90 mcg/actuation HFA aerosol inhaler 2 puff inhalation Q4H PRN (Reason: Wheezing) melatonin 3 mg tablet 9 mg PO BEDTIME sumatriptan succinate 100 mg tablet 100 mg PO DAILY PRN (Reason: Migraine Headache) Referrals: Arabella Cerda NP [Primary Care Provider] -
[2023-02-23 21:54] LABS: MANUAL DIFF FLAG NO
[2023-02-23 21:57] LABS: Basophils Absolute Auto 0.1 X10*3/uL (0.0-0.2); Basophils Percent Auto 0.6 % (0-2); Eosinophils Absolute Auto 0.2 X10*3/uL (0.0-0.4); Eosinophils Percent Auto 2.5 % (0-4); Hematocrit 38.3 % (37.0-47.0); Hemoglobin 12.6 g/dl (12.0-16.0); Imm Gran Abs Auto 0.02 X10*3/uL (0.00-0.03); Imm Gran Pct Auto 0.2 % (0.0-0.4); Lymphocytes Absolute Auto 3.9 X10*3/uL (1.2-4.9); Mean Corpuscular HGB Conc 32.9 g/dl (31.0-35.0); Mean Corpuscular Hemoglobin 28.6 pg (27.0-33.0); Mean Platelet Volume 9.4 fL (9.4-12.3); Monocytes Absolute Auto 0.8 X10*3/uL (0.1-1.2); Monocytes Percent Auto 7.9 % (2-11); Neutrophils Absolute Auto 4.6 x10*3/uL (2.0-8.3); Neutrophils Percent Auto 47.8 % (45-73); Platelet Count 258 X10*3/uL (160-400); White Blood Count 9.5 X10*3/uL (4.8-10.8)
[2023-02-23 22:10] LABS: COVID-19 Test Negative (Negative); IDNOW Serial# 152EDE1D
[2023-02-23 22:11] LABS: IDNOW Serial# 08D9AD1C; Influenza A Negative (Negative); Influenza B2 Negative (Negative)
[2023-02-23 22:12] LABS: Alanine Aminotransferase 18 U/L (0-31); Albumin Level 4.2 g/dL (3.5-5.0); Alkaline Phosphatase 97 U/L (39-117); Anion Gap 13 (12-20); Aspartate Amino Transferase 16 U/L (5-31); Bilirubin Total 0.2 mg/dL (0.0-1.0); Blood Urea Nitrogen 10 mg/dL (9-16); Carbon Dioxide 25 mmol/L (22-29); Chloride 100 mmol/L (96-108); Creatinine Clr Calc Pharmacy 83.1; Estimated Glomerular Filt Rate > 60; Glucose Random 86 mg/dL (60-115); Potassium 4.8 mmol/L (3.3-5.1); Sodium 133 mmol/L (135-145); Total Protein 7.2 g/dL (6.5-8.0)
[2023-02-23 22:51] VITALS: BP 135/46; PULSE 65; RESP 18; TEMP 36.6; O2SAT 97
== END 2023-02-24 01:45 | disposition home or self-care (01) ==
PROVIDERS: Nurse Practitioner Family; Emergency Provider Student in an Organized Health Care Education/Training Program; PCP Nurse Practitioner Family
DX: M25.511 Pain in right shoulder (principal); M25.512 Pain in left shoulder; Z79.899 Other long term (current) drug therapy; Z11.52 Encounter for screening for COVID-19; Z20.828 Contact with and (suspected) exposure to other viral communicable diseases
CPT/HCPCS: 80053; 83735; 85025; 87502; 87635; 99283; 99284

== ENCOUNTER 2023-03-12 06:19 | Outpatient (REF) | payer OTHER, SELFPAY ==
--- NOTE | ~2023-03-12 | XR_ITS ---
EXAMINATION: XR ELBOW, LEFT CLINICAL INFORMATION: Pain in unspecified elbow. COMPARISON: None available. TECHNIQUE: AP, lateral, and oblique views of the left elbow. FINDINGS: Small rounded calcifications in the superficial soft tissues. Alignment preserved. Mild spurring along the dorsal aspect of the olecranon. Mild degenerative changes with spurring along the ventral aspect of the elbow. No significant joint effusion. XR/XR elbow LT min 3V IMPRESSION: 1. Mild degenerative changes. 2. Recommend follow up images in 10-14 days if fracture is suspected.
== END 2023-03-12 06:20 | disposition home or self-care (01) ==
LOC: HO.HOSX 06:19
PROVIDERS: Visit Provider Physician Assistant
DX: M77.12 Lateral epicondylitis, left elbow (principal)
CPT/HCPCS: 73080; 99212

== ENCOUNTER 2023-03-12 10:59 | Outpatient (AMB) | payer OTHER, SELFPAY ==
--- NOTE | 2023-03-12 11:10 | MHC.OFFVIS ---
Intake Intake Visit Reasons: New Prob - left elbow pain Intake Note: Elizabeth is a 62 year old right hand dominant female who presents today for a evaluation of her right elbow pain. Patient reports ongoing pain for about a year due to her trying to remove a lidocaine patch from her back using her left arm. She states that her pain today is a 10/10 on the pain scale due to the cold weather. She is taking ibuprofen with mild relief. Allergies cephalexin Allergy (Intermediate, Verified 03/12/23 11:13) Diarrhea Iodinated Contrast Media [IV CONTRAST] Allergy (Intermediate, Verified 03/12/23 11:13) DIFF BREATHING morphine [MORPHINE] Allergy (Intermediate, Verified 03/12/23 11:13) HIVES nabumetone [NABUMETONE] Allergy (Intermediate, Verified 03/12/23 11:13) HIVES sulfamethoxazole [From BACTRIM] Allergy (Intermediate, Verified 03/12/23 11:13) HIVES trimethoprim [From BACTRIM] Allergy (Intermediate, Verified 03/12/23 11:13) HIVES dicloxacillin Allergy (Unknown, Verified 03/12/23 11:13) Rash dyclonine Allergy (Unknown, Verified 03/12/23 11:13) Unknown propranolol [Inderal LA] Allergy (Unknown, Verified 03/12/23 11:13) unknown quetiapine [Seroquel] Allergy (Unknown, Verified 03/12/23 11:13) rash Sulfa (Sulfonamide Antibiotics) Allergy (Unknown, Verified 03/12/23 11:13) hives amoxicillin [From Augmentin] Allergy (Verified 03/12/23 11:13) stomach pain clavulanic acid [From Augmentin] Allergy (Verified 03/12/23 11:13) stomach pain polyethylene glycol [From Golytely] Adverse Reaction (Severe, Verified 03/12/23 11:13) Hallucinations polyethylene glycol 3350 [From Golytely] Adverse Reaction (Severe, Verified 03/12/23 11:13) Hallucinations potassium chloride [From Golytely] Adverse Reaction (Severe, Verified 03/12/23 11:13) Hallucinations sodium [From Golytely] Adverse Reaction (Severe, Verified 03/12/23 11:13) Hallucinations sodium bicarbonate [From Golytely] Adverse Reaction (Severe, Verified 03/12/23 11:13) Hallucinations sodium chloride [From Golytely] Adverse Reaction (Severe, Verified 03/12/23 11:13) Hallucinations sodium sulfate [From Golytely] Adverse Reaction (Severe, Verified 03/12/23 11:13) Hallucinations doxycycline [DOXYCYCLINE] Adverse Reaction (Intermediate, Verified 03/12/23 11:13) NAUSEA & VOMITTING From INDERAL Allergy (Intermediate, Uncoded 02/23/23 20:20) RASH Codeine Sulfate Allergy (Unknown, Uncoded 02/23/23 20:20) Unknown HPI New Prob - left elbow pain HPI Details 62-year-old right hand dominant female who presents in the office today for an evaluation of left elbow pain. The patient reports ongoing pain for a year due to her trying to remove a Lidocaine patch from her back with her left arm. She claims her pain today is a 10/10, but states the cold weather is contributing to this. She confirms the use of ibuprofen with mild relief. [facility] Medical History Spinal stenosis TMJ (dislocation of temporomandibular joint) Migraine COPD (chronic obstructive pulmonary disease) Asthma Depression Anxiety Prediabetes Arthritis of right knee Umbilical hernia Chronic idiopathic constipation Surgical History History of carpal tunnel release Hx of colonoscopy History of esophagogastroduodenoscopy (EGD) Hx of hand surgery H/O eye surgery Hx of hysterectomy Family History Father Bone cancer Mother Diabetes Family/Other Family history of breast cancer Social History Household Members: None Housing: Apartment Do you presently have visiting nurse or other home services: Yes (nursing once a week, home health aid 4x week) Alcohol intake: current Alcohol intake frequency: does not drink Patient Tobacco Use Status: Former Tobacco user service: No Review of Systems Const All systems reviewed & are unremarkable except as noted in HPI and below Physical Exam Const General: cooperative, healthy appearing and no acute distress Resp Effort & Inspection: normal respiratory effort and able to speak in complete sentences Cardio Rate: regular rate Peripheral pulses: Peripheral pulses 2+ throughout GI Palpation (GI): Soft to palpation Skin Lesions: no lesions Rashes: no rashes Extrem Other: Left elbow: Normal to inspection. No ecchymosis, erythema, or edema. No tenderness to palpation over the olecranon. Tenderness to the medial or lateral epicondyle. NVI. Assessment & Plan Assessment & Plan (1) Left tennis elbow: Code(s): M77.12 - Lateral epicondylitis, left elbow Plan Ms. Huang is a 62-year-old right hand dominant female who presents in the office today for an evaluation of left elbow pain. The patient reports ongoing pain for a year due to her trying to remove a Lidocaine patch from her back with her left arm. She claims her pain today is a 10/10, but states the cold weather is contributing to this. She confirms the use of ibuprofen with mild relief. We discussed the role of cortisone injections but the patient would like to hold off at this time until she has completed her course of physical therapy. I have sent a prescription for Dicolfenac 75 mg PO BID PRN to the pharmacy. Follow up will be after completion of physical therapy, or sooner if needed. X-rays of the left elbow which were obtained while in the office today and were reviewed by me, Lucia Krueger PA-C, revealed no acute fracture or dislocation. Medications: New diclofenac sodium 75 mg PO BID PRN 60 tabs 0RF pain Patient Instructions: Scribed for Lucia Krueger PA-C by Barbara Gomez bilingual medical receptionist, on 03/12/2023 at 10:01 am, EST. Coding Level of Care Code Est Pt Level 4 (67017) Diagnoses Left tennis elbow M77.12
== END 2023-03-12 11:29 | disposition home or self-care (01) ==
PROVIDERS: PCP Nurse Practitioner Family; Visit Provider Physician Assistant
DX: M77.12 Lateral epicondylitis, left elbow (principal)
CPT/HCPCS: 99214

== ENCOUNTER 2023-04-10 09:17 | Outpatient (AMB) | payer OTHER, SELFPAY ==
[2023-04-10 09:21] VITALS: BP 107/57; PULSE 66; BMI 32.4
--- NOTE | 2023-04-10 09:21 | MHC.OFFVIS ---
Intake Vital Signs 04/10/23 09:21 Height 5 ft 1 in Weight 171 lb 8.314 oz BMI 32.4 BP 107/57 L Blood Pressure Location Rt brachial Position Sitting Pulse 66 Intake Visit Reasons: 6 month fu Intake Note: Patient presents to in office visit today in follow up of abdominal pain. CC: Patient c/o abdominal cramps and acid reflux. She states she is taking Protonix but she believes it needs to be increased. Per patient she has not being able to have colonoscopy done because every time she is scheduled she ends up getting sick. Fiscal Manager Required: No Accompanied by: community health outreach worker Allergies cephalexin Allergy (Intermediate, Verified 04/10/23 09:35) Diarrhea Iodinated Contrast Media [IV CONTRAST] Allergy (Intermediate, Verified 04/10/23 09:35) DIFF BREATHING morphine [MORPHINE] Allergy (Intermediate, Verified 04/10/23 09:35) HIVES nabumetone [NABUMETONE] Allergy (Intermediate, Verified 04/10/23 09:35) HIVES sulfamethoxazole [From BACTRIM] Allergy (Intermediate, Verified 04/10/23 09:35) HIVES trimethoprim [From BACTRIM] Allergy (Intermediate, Verified 04/10/23 09:35) HIVES dicloxacillin Allergy (Unknown, Verified 04/10/23 09:35) Rash dyclonine Allergy (Unknown, Verified 04/10/23 09:35) Unknown propranolol [Inderal LA] Allergy (Unknown, Verified 04/10/23 09:35) unknown quetiapine [Seroquel] Allergy (Unknown, Verified 04/10/23 09:35) rash seafood Allergy (Unknown, Verified 04/10/23 09:35) Unknown Sulfa (Sulfonamide Antibiotics) Allergy (Unknown, Verified 04/10/23 09:35) hives amoxicillin [From Augmentin] Allergy (Verified 04/10/23 09:35) stomach pain clavulanic acid [From Augmentin] Allergy (Verified 04/10/23 09:35) stomach pain polyethylene glycol [From Golytely] Adverse Reaction (Severe, Verified 04/10/23 09:35) Hallucinations polyethylene glycol 3350 [From Golytely] Adverse Reaction (Severe, Verified 04/10/23 09:35) Hallucinations potassium chloride [From Golytely] Adverse Reaction (Severe, Verified 04/10/23 09:35) Hallucinations sodium [From Golytely] Adverse Reaction (Severe, Verified 04/10/23 09:35) Hallucinations sodium bicarbonate [From Golytely] Adverse Reaction (Severe, Verified 04/10/23 09:35) Hallucinations sodium chloride [From Golytely] Adverse Reaction (Severe, Verified 04/10/23 09:35) Hallucinations sodium sulfate [From Golytely] Adverse Reaction (Severe, Verified 04/10/23 09:35) Hallucinations doxycycline [DOXYCYCLINE] Adverse Reaction (Intermediate, Verified 04/10/23 09:35) NAUSEA & VOMITTING From INDERAL Allergy (Intermediate, Uncoded 02/23/23 20:20) RASH Codeine Sulfate Allergy (Unknown, Uncoded 02/23/23 20:20) Unknown HPI 6 month fu HPI Details Assessment & Plan (1) Tubular adenoma: Comment: 2016 scope=TA, repeat 2021 Code(s): D36.9 - Benign neoplasm, unspecified site Plan: She feels she had an allergic reaction to the peg prep when she tried to drink it. She really wants the pill prep; although this is comprised of many of the same elements as the peg prep. She again asks if she can have someone with her during the procedure and even says I was a lot calmer and I think this effected my ability to drink the prep. Again, we can not accommodate this anymore with new rules around sterility etc. however, this does confirm my thought that her problem with the prep is more behavioral/psychiatric that it is an allergy. She says she is having some BRB on TT recently and some mixed into the stools, which ay be IH but we should try to get the colonoscopy in the near future. We will try to see if a pill practice available if we can get covered. WE review the labs and I explain the difference between a food intolerance and food allergies. Specifically she seems to be lactose intolerant and she continue to avoid foods that give her trouble. She continues on her pantoprazole twice a day with good control of her heartburn and dyspepsia. ROV 6 mos. (2) GERD (gastroesophageal reflux disease): Code(s): K21.9 - Gastro-esophageal reflux disease without esophagitis (3) Abdominal cramping: Code(s): R10.9 - Unspecified abdominal pain (4) IBS (irritable bowel syndrome): Code(s): K58.9 - Irritable bowel syndrome without diarrhea Medications: New sod sulf-pot chlor julienne-mag sulf 1.479 -0.188- 0.225 gram (Sutab) PO PER PKG DIR 24 tabs 0RF D36.9 - Benign jefferson plasm, unspecified site EGD/COLONOSCOPY CORRESPONDENCE On 11/24/22 @ 14:41 Brandi Pena Wrote To Kyree,May pt just wanted me to let you know she is hospitalized with pneumonia and that is why she wasn't able to do her procedure and her follow up she has been very sick as of late. TODAY'S VISIT She says she was hospitalized with pneumonia and sepsis in October. She was hospitalized for a week, then she went to [address] and came down with COVID, so she has had a tough time! She missed her colonoscopy because of this which is understandable. Now that she is home and she feels she is ready I will send a note to our schedulers to get her back on the schedule for the EGD/colonoscopy. She has a new dx of RA and was on Humira but now is on TALZ. She has a lot of body aches, and fatigue. She still has the prep at home. She continues on her dicyclomine, Colace, Lactaid tablets, and pantoprazole twice a day. They seem to be controlling her GI conditions well. Return office visit in 6 months and after the colonoscopy. [facility] Medical History Spinal stenosis TMJ (dislocation of temporomandibular joint) Migraine COPD (chronic obstructive pulmonary disease) Asthma Depression Anxiety Prediabetes Arthritis of right knee Umbilical hernia Chronic idiopathic constipation Surgical History History of carpal tunnel release Hx of colonoscopy History of esophagogastroduodenoscopy (EGD) Hx of hand surgery H/O eye surgery Hx of hysterectomy Family History Father Bone cancer Mother Diabetes Family/Other Family history of breast cancer Social History Household Members: None Housing: Apartment Do you presently have visiting nurse or other home services: Yes (nursing once a week, home health aid 4x week) Alcohol intake: current Alcohol intake frequency: does not drink Patient Tobacco Use Status: Former Tobacco user service: No Review of Systems Const Reports fatigue, Denies fever(s), Reports headache(s), Reports lethargy, Denies night sweats, Denies poor appetite and Denies weight loss Eyes Details: glasses Reports requires corrective lenses ENT Details: hoarse voice Reports Normal hearing present, Denies dental pain, Denies dysphagia, Reports headache(s), Denies hearing loss, Denies mouth pain, Denies odynophagia, Denies throat swelling, Denies tongue swelling and Reports other (Dentition adequate) Card Reports no additional complaints Resp Reports cough GI Details: Denies abdominal pain, Denies melena, Denies bloating, Denies hematochezia, Reports constipation, Reports GI cramping, Denies dysphagia, Denies excessive flatus, Denies early satiety, Reports heartburn, Denies diarrhea, Denies nausea, Denies odynophagia, Denies vomiting and Denies hematemesis Musc Reports back pain, Reports myalgias, Reports arthralgias and Reports stiffness Skin/Breast Denies pruritus, Denies lesions, Denies rash and Denies jaundice Neuro Reports Normal hearing present, Denies Abnormal speech present and Reports headache(s) Endo Reports fatigue Aller/Immun Denies throat swelling and Denies tongue swelling Physical Exam Vital Signs: Last Vital Signs Pulse 66 04/10/23 09:21 BP 107/57 L 04/10/23 09:21 BMI result Body Mass Index 32.4 Const General: cooperative, no acute distress, well developed and well groomed Nutritional Appearance: well nourished and obese Orientation/consciousness: oriented to person, oriented to place and oriented to time Limitations: No language barrier and ambulation with walker HEENT Head: Yes normocephalic and Yes atraumatic Eyes General: appearance normal, both eyes and all related structures Pupils: Equal, round and reactive pupils present Neck Neck: Yes normal visual inspection and Yes no lymphadenopathy Thyroid: Thyroid normal Resp Effort & Inspection: normal respiratory effort and able to speak in complete sentences Auscultation: clear to auscultation bilaterally Cardio Rate: regular rate Rhythm: regular rhythm Heart sounds: Normal, physiologic split S2 sound present Peripheral pulses: radial pulses present and posterior tibial pulses present GI Inspection: No distended, Yes Abdominal panniculus present and Yes obesity Palpation (GI): Soft to palpation, nontender, no guarding, not rigid and No hepatosplenomegaly present Percussion: Yes normal to percussion Auscultation: normal bowel sounds Rectal Exam - Female: deferred Skin General skin exam: no rashes or lesions noted, turgor normal, skin not dry, no jaundice, No spider nevi and no striae Rashes: no rashes Nails: normal Neuro General: oriented to person, oriented to place and oriented to time Cranial nerves: Yes Equal, round and reactive pupils present and Yes Normal hearing present Speech: No Abnormal speech present Extrem General: Yes normal to inspection, No clubbing, No cyanosis and No edema Psych Appearance: grossly normal and well kempt Mental Status: mental status grossly normal Speech and movement: Normal speech and movement present Affect: normal affect Attitude: cooperative Thought process: Normal thought process present and not confabulating Thought content: Normal thought content present Insight: Limited insight present (Psych) Judgement: Limited judgement present (Psych) Assessment & Plan Assessment & Plan (1) Tubular adenoma: Comment: 2016 scope=TA, repeat 2021 Code(s): D36.9 - Benign neoplasm, unspecified site (2) GERD (gastroesophageal reflux disease): Code(s): K21.9 - Gastro-esophageal reflux disease without esophagitis (3) IBS (irritable bowel syndrome): Code(s): K58.9 - Irritable bowel syndrome without diarrhea Plan She says she was hospitalized with pneumonia and sepsis in October. She was hospitalized for a week, then she went to [address] and came down with COVID, so she has had a tough time! She missed her colonoscopy because of this which is understandable. Now that she is home and she feels she is ready I will send a note to our schedulers to get her back on the schedule for the EGD/colonoscopy. She has a new dx of RA and was on Humira but now is on TALZ. She has a lot of body aches, and fatigue. She still has the prep at home. She continues on her dicyclomine, Colace, Lactaid tablets, and pantoprazole twice a day. They seem to be controlling her GI conditions well. Return office visit in 6 months and after the colonoscopy. EGD/COLONOSCOPY BIOPSY Medications: New dicyclomine 10 mg PO Q6H PRN 120 caps 6RF GI UPSET lactase 3,000 - 6,000 units (1 - 2 x 3,000 unit) PO TIDAC PRN 120 tabs 6RF DAIRY INTOLERANCE docusate sodium 100 mg PO BID 60 caps 6RF Refilled ondansetron 4 mg PO Q8H PRN 10 tabs 0RF nausea and vomiting pantoprazole 40 mg PO BID 60 tabs 6RF K21.9 - Gastro-esophageal reflux disease without esophagitis Coding Level of Care Code Est Pt Level 3 (44652) Diagnoses Tubular adenoma D36.9 GERD (gastroesophageal reflux disease) K21.9 IBS (irritable bowel syndrome) K58.9
== END 2023-04-10 10:10 | disposition home or self-care (01) ==
PROVIDERS: PCP Nurse Practitioner Family; Visit Provider Nurse Practitioner
DX: D36.9 Benign neoplasm, unspecified site (principal); K21.9 Gastro-esophageal reflux disease without esophagitis; K58.9 Irritable bowel syndrome, unspecified
CPT/HCPCS: 99213

== ENCOUNTER → 2023-04-10 09:17 | Outpatient (BNVA) | payer OTHER, SELFPAY | PROVIDERS: PCP Nurse Practitioner Family; Visit Provider Nurse Practitioner | DX: D36.9 Benign neoplasm, unspecified site (principal); K21.9 Gastro-esophageal reflux disease without esophagitis; K58.9 Irritable bowel syndrome, unspecified | CPT/HCPCS: 99212 ==

== ENCOUNTER 2023-05-30 11:59 | Outpatient (AMB) | payer OTHER, SELFPAY ==
--- NOTE | 2023-05-30 11:59 | A.OFFVIS_ITS ---
Intake Intake Visit Reasons: PsA Intake Note: Patient last seen 02/13/23, today she requested telehealth appt due to transportation issues. Tolerating taltz states her RA is acting up Customer Experience Professional Required: No Allergies cephalexin Allergy (Intermediate, Verified 05/30/23 12:00) Diarrhea Iodinated Contrast Media [IV CONTRAST] Allergy (Intermediate, Verified 05/30/23 12:00) DIFF BREATHING morphine [MORPHINE] Allergy (Intermediate, Verified 05/30/23 12:00) HIVES nabumetone [NABUMETONE] Allergy (Intermediate, Verified 05/30/23 12:00) HIVES sulfamethoxazole [From BACTRIM] Allergy (Intermediate, Verified 05/30/23 12:00) HIVES trimethoprim [From BACTRIM] Allergy (Intermediate, Verified 05/30/23 12:00) HIVES dicloxacillin Allergy (Unknown, Verified 05/30/23 12:00) Rash dyclonine Allergy (Unknown, Verified 05/30/23 12:00) Unknown propranolol [Inderal LA] Allergy (Unknown, Verified 05/30/23 12:00) unknown quetiapine [Seroquel] Allergy (Unknown, Verified 05/30/23 12:00) rash seafood Allergy (Unknown, Verified 05/30/23 12:00) Unknown Sulfa (Sulfonamide Antibiotics) Allergy (Unknown, Verified 05/30/23 12:00) hives amoxicillin [From Augmentin] Allergy (Verified 05/30/23 12:00) stomach pain clavulanic acid [From Augmentin] Allergy (Verified 05/30/23 12:00) stomach pain polyethylene glycol [From Golytely] Adverse Reaction (Severe, Verified 05/30/23 12:00) Hallucinations polyethylene glycol 3350 [From Golytely] Adverse Reaction (Severe, Verified 05/30/23 12:00) Hallucinations potassium chloride [From Golytely] Adverse Reaction (Severe, Verified 05/30/23 12:00) Hallucinations sodium [From Golytely] Adverse Reaction (Severe, Verified 05/30/23 12:00) Hallucinations sodium bicarbonate [From Golytely] Adverse Reaction (Severe, Verified 05/30/23 12:00) Hallucinations sodium chloride [From Golytely] Adverse Reaction (Severe, Verified 05/30/23 12:00) Hallucinations sodium sulfate [From Golytely] Adverse Reaction (Severe, Verified 05/30/23 12:00) Hallucinations doxycycline [DOXYCYCLINE] Adverse Reaction (Intermediate, Verified 05/30/23 12:00) NAUSEA & VOMITTING From INDERAL Allergy (Intermediate, Uncoded 05/30/23 12:00) RASH Codeine Sulfate Allergy (Unknown, Uncoded 05/30/23 12:00) Unknown Medication List - Last Reconciled 05/30/23 by Nael Yang MD albuterol sulfate 90 mcg/actuation (Ventolin HFA) 2 puffs inhalation Q4H PRN aripiprazole 10 mg PO DAILY ascorbic acid (vitamin C) (Vitamin C) 500 mg PO DAILY carbamazepine ER (Tegretol XR) 400 mg PO BID cholecalciferol (vitamin D3) 50 mcg PO DAILY diclofenac sodium 1% 1 g topical QID PRN diclofenac sodium 75 mg PO BID PRN dicyclomine 10 mg PO Q6H PRN docusate sodium 100 mg PO BID estradiol 1 mg PO DAILY fexofenadine 180 mg PO BID fluticasone propion-salmeterol 500-50 mcg/dose 1 ea inhalation BID folic acid 1 mg PO DAILY gabapentin 600 mg PO TID lactase 3,000 - 6,000 units (1 - 2 x 3,000 unit) PO TIDAC PRN lisinopril 10 mg PO DAILY meclizine 25 mg PO QID melatonin 9 mg PO BEDTIME metformin 500 mg PO BID methotrexate sodium 20 mg (8 x 2.5 mg) PO QWEEK montelukast (Singulair) 10 mg PO BEDTIME multivitamin with folic acid 400 mcg (Daily-Maikel (with folic acid)) 1 tab PO DAILY omalizumab (Xolair) mg subcut Q2W omalizumab (Xolair) mg subcut Q2W ondansetron 4 mg PO Q8H PRN pantoprazole 40 mg PO BID prazosin 4 mg PO BEDTIME risperidone (Risperdal) 3 mg PO BID sumatriptan succinate 100 mg PO DAILY PRN Taltz Autoinjector (ixekizumab) 160 mg (2 pens) at week 0, then 80 mg every 4 weeks NS topiramate 150 mg PO BID umeclidinium 62.5 mcg/actuation (Incruse Ellipta) 1 inh inhalation DAILY valacyclovir 500 mg PO BID 7 days vitamin B complex (Vitamins B Complex capsule) 1 cap PO DAILY HPI HPI Comments History of Present Illness Details 62-year-old female with seronegative art hritis (likely PsA)returns for telehealth phone visit. She could not come into clinic due to transportation issues. Patient is on methotrexate 20 mg weekly. Started Taltz after last visit. Folic acid 1 mg daily. She states that she has been having worsening bilateral shoulder pain, worse on the left and she recently had an MRI of the left shoulder. She will follow-up with her orthopedist for the results. She has also been having some bilateral knee pain. Initial history:This is a 61-year-old female with complex past medical history including asthma/COPD, anxiety, depression, migraines, lumbar spinal stenosis who presents for evaluation of diffuse joint pain. Patient has had bilateral knee pain for at least 6 years. She had numerous intra-articular steroid injections without any relief. She used to see Dr. Chance Christina as well as Dr. Mayorga at [place] and was most recently following up with Dr. Lucero. Patient received prednisone in the past for her arthritis without any significant relief. Also the intra-articular steroid injections do not provide any relief. Over the last year she has been having pain of her knuckles, wrists, fingers associated with morning stiffness lasting 2 hours improved with moving her hands around. Continues to have chronic knee pain that is unchanged. She stated that her older sister was diagnosed with rheumatoid arthritis. She was just recently started on prednisone 20 mg Twice daily for asthma attack. She stated that prednisone does not significantly improve her joint pain PFSH Medical History Spinal stenosis TMJ (dislocation of temporomandibular joint) Migraine COPD (chronic obstructive pulmonary disease) Asthma Depression Anxiety Prediabetes Arthritis of right knee Umbilical hernia Chronic idiopathic constipation Surgical History History of carpal tunnel release Hx of colonoscopy History of esophagogastroduodenoscopy (EGD) Hx of hand surgery H/O eye surgery Hx of hysterectomy Family History Father Bone cancer Mother Diabetes Family/Other Family history of breast cancer Social History Household Members: None Housing: Apartment Do you presently have visiting nurse or other home services: Yes (nursing once a week, home health aid 4x week) Alcohol intake: current Alcohol intake frequency: does not drink Patient Tobacco Use Status: Former Tobacco user service: No Review of Systems Musc Reports arthralgias, Reports limited range of motion and Reports stiffness Physical Exam Const Other: Telehealth visit. General: cooperative Orientation/consciousness: patient oriented x3 Resp Effort & Inspection: able to speak in complete sentences Neuro General: patient oriented x3 Results Reviewed Results Reviewed: Right hand/ wrist MSK ultrasound 03/06? Impression:? Mild tenosynovitis of the 2nd extensor compartment Assessment & Plan Assessment & Plan (1) Psoriatic arthritis: Comment: dx 03/06 Right thumb dactylitis 06/04 MTX started 07/04 effective Humira added 11/04 DC 12/04 due to pneumonia admission Code(s): L40.50 - Arthropathic psoriasis, unspecified Plan: This is a 62-year-old female with psoriatic arthritis who presents for follow- up. On methotrexate 20 mg weekly, folic acid 1 mg daily and Taltz started 3 months ago. Patient continues to complain of diffuse joint pain. However in inflammatory markers are normalized. Likely her inflammatory arthritis is well controlled. Unfortunately patient could not come into clinic today for a physical exam however I believe she can should continue with this regimen for now. Likely her pains are coming from degenerative arthritis. 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 Follow-up with orthopedics Plan I spent 8 minutes on the phone with patient, additional 8 minutes were spent reviewing her chart , placing orders and documenting. 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
== END 2023-05-30 13:19 | disposition home or self-care (01) ==
LOC: HO.RHE 11:59
PROVIDERS: PCP Nurse Practitioner Family; Visit Provider Student in an Organized Health Care Education/Training Program
DX: L40.50 Arthropathic psoriasis, unspecified (principal); Z79.631 Long term (current) use of antimetabolite agent; M67.911 Unspecified disorder of synovium and tendon, right shoulder
CPT/HCPCS: 99441

== ENCOUNTER → 2023-05-30 11:59 | Outpatient (BNVA) | payer OTHER, SELFPAY | PROVIDERS: PCP Nurse Practitioner Family; Visit Provider Student in an Organized Health Care Education/Training Program ==

== ENCOUNTER 2023-07-02 18:57 | Emergency (ER) | payer OTHER, SELFPAY ==
--- NOTE | ~2023-07-02 | XR_ITS ---
EXAMINATION: XR ABDOMEN KUB CLINICAL INDICATION: Abdominal pain. COMPARISON: None available. TECHNIQUE: AP view of the abdomen. FINDINGS: The bowel gas pattern is normal with no evidence of ileus or obstruction. No unusual soft tissue calcifications are noted. The bones are unremarkable. XR/XR KUB IMPRESSION: Unremarkable examination.
[2023-07-02 19:07] VITALS: BP 133/70; PULSE 68; O2SAT 99
[2023-07-02 19:56] VITALS: BP 145/58; PULSE 70; RESP 18; TEMP 36.6; O2SAT 100; BMI 32.9
--- NOTE | 2023-07-02 19:56 | ED.ABDPAIN ---
HPI - Abdominal Pain General Chief Complaint: Abdominal Pain Stated Complaint: low abd pain Time Seen by Provider: 07/03/23 03:35 Source: patient Mode of arrival: EMS History of Present Illness ED Provider: Dr. Rausch HPI narrative: 62-year-old female who arrives via ambulance with complaints of lower abdominal discomfort that started when she woke up today, last bowel movement was yesterday, she denies any nausea or vomiting/fever or chills but does report pain and burning on urination. Related Data Home Medications ?Medication ?Instructions ?Recorded ?Confirmed carbamazepine 400 mg 400 mg PO BID 02/11/20 11/23/22 tablet,extended release,12 hr (Tegretol XR) cholecalciferol (vitamin D3) 50 50 mcg PO DAILY 02/11/20 11/23/22 mcg (2,000 unit) capsule montelukast 10 mg tablet 10 mg PO BEDTIME 02/11/20 11/23/22 (Singulair) fexofenadine 180 mg tablet 180 mg PO BID 08/30/21 11/23/22 estradiol 1 mg tablet 1 mg PO DAILY 01/13/22 11/23/22 lisinopril 10 mg tablet 10 mg PO DAILY 01/13/22 11/23/22 meclizine 25 mg tablet 25 mg PO QID 05/12/22 11/23/22 risperidone 3 mg tablet (Risperdal) 3 mg PO BID 05/12/22 11/23/22 fluticasone 500 mcg-salmeterol 50 1 ea inhalation BID 05/30/22 11/23/22 mcg/dose blistr powdr for inhalation metformin 500 mg tablet 500 mg PO BID 05/30/22 11/23/22 vitamin B complex (Vitamins B 1 cap PO DAILY 05/30/22 11/23/22 Complex capsule) topiramate 100 mg tablet 150 mg PO BID 08/02/22 11/23/22 umeclidinium 62.5 mcg/actuation 1 inh inhalation DAILY 08/02/22 11/23/22 blister powder for inhalation (Incruse Ellipta) albuterol sulfate 90 mcg/actuation 2 puff inhalation Q4H PRN Wheezing 09/08/22 11/23/22 aerosol inhaler (Ventolin HFA) melatonin 3 mg tablet 9 mg PO BEDTIME 09/08/22 11/23/22 sumatriptan succinate 100 mg tablet 100 mg PO DAILY PRN Migraine 09/08/22 11/23/22 Headache ascorbic acid (vitamin C) 250 mg 500 mg PO DAILY 11/23/22 11/23/22 chewable tablet (Vitamin C) diclofenac sodium 1 % topical gel 1 g topical QID PRN Pain 11/23/22 11/23/22 gabapentin 300 mg capsule 600 mg PO TID 11/23/22 11/23/22 multivitamin with folic acid 400 1 tab PO DAILY 11/23/22 11/23/22 mcg tablet (Daily-Maikel (with folic acid)) prazosin 2 mg capsule 4 mg PO BEDTIME 11/23/22 11/23/22 aripiprazole 10 mg tablet 10 mg PO DAILY 04/10/23 omalizumab 150 mg/mL subcutaneous mg subcut Q2W 04/10/23 syringe (Xolair) omalizumab 75 mg/0.5 mL mg subcut Q2W 04/10/23 subcutaneous syringe (Xolair) Previous Rx's ?Medication ?Instructions ?Recorded valacyclovir 500 mg tablet 500 mg PO BID 7 days #0 tabs 11/28/22 Taltz Autoinjector 80 mg/mL See Rx Instructions subcut Q4W #2 02/19/23 subcutaneous (ixekizumab) mL diclofenac sodium 75 mg 75 mg PO BID PRN pain #60 tabs 03/12/23 tablet,delayed release dicyclomine 10 mg capsule 10 mg PO Q6H PRN GI UPSET #120 caps 04/10/23 docusate sodium 100 mg capsule 100 mg PO BID #60 caps 04/10/23 lactase 3,000 unit tablet 3,000 - 6,000 unit (1 - 2 x 3,000 04/10/23 unit) PO TIDAC PRN DAIRY INTOLERANCE #120 tabs ondansetron 4 mg disintegrating 4 mg PO Q8H PRN nausea and 04/10/23 tablet vomiting #10 tabs pantoprazole 40 mg tablet,delayed 40 mg PO BID #60 tabs 04/10/23 release methotrexate sodium 2.5 mg tablet 20 mg (8 x 2.5 mg) PO QWEEK #96 04/16/23 tabs folic acid 1 mg tablet 1 mg PO DAILY #90 tabs 04/30/23 Allergies Allergy/AdvReac Type Severity Reaction Status Date / Time cephalexin Allergy Intermediate Diarrhea Verified 07/02/23 19:58 Iodinated Contrast Media Allergy Intermediate DIFF Verified 07/02/23 19:58 [IV CONTRAST] BREATHING morphine [MORPHINE] Allergy Intermediate HIVES Verified 07/02/23 19:58 nabumetone [NABUMETONE] Allergy Intermediate HIVES Verified 07/02/23 19:58 sulfamethoxazole Allergy Intermediate HIVES Verified 07/02/23 19:58 [From BACTRIM] trimethoprim [From BACTRIM] Allergy Intermediate HIVES Verified 07/02/23 19:58 dicloxacillin Allergy Unknown Rash Verified 07/02/23 19:58 dyclonine Allergy Unknown Unknown Verified 07/02/23 19:58 propranolol [Inderal LA] Allergy Unknown unknown Verified 07/02/23 19:58 quetiapine [Seroquel] Allergy Unknown rash Verified 07/02/23 19:58 seafood Allergy Unknown Unknown Verified 07/02/23 19:58 Sulfa (Sulfonamide Allergy Unknown hives Verified 07/02/23 19:58 Antibiotics) amoxicillin [From Augmentin] Allergy stomach Verified 07/02/23 19:58 pain clavulanic acid Allergy stomach Verified 07/02/23 19:58 [From Augmentin] pain polyethylene glycol AdvReac Severe Hallucinati Verified 07/02/23 19:58 [From Golytely] ons polyethylene glycol 3350 AdvReac Severe Hallucinati Verified 07/02/23 19:58 [From Golytely] ons potassium chloride AdvReac Severe Hallucinati Verified 07/02/23 19:58 [From Golytely] ons sodium [From Golytely] AdvReac Severe Hallucinati Verified 07/02/23 19:58 ons sodium bicarbonate AdvReac Severe Hallucinati Verified 07/02/23 19:58 [From Golytely] ons sodium chloride AdvReac Severe Hallucinati Verified 07/02/23 19:58 [From Golytely] ons sodium sulfate AdvReac Severe Hallucinati Verified 07/02/23 19:58 [From Golytely] ons doxycycline [DOXYCYCLINE] AdvReac Intermediate NAUSEA & Verified 07/02/23 19:58 VOMITTING From INDERAL Allergy Intermediate RASH Uncoded 05/30/23 12:00 Codeine Sulfate Allergy Unknown Unknown Uncoded 05/30/23 12:00 Review of Systems Review of Systems Pertinent positives and negatives as stated in HPI [facility] Past Medical History Source: nursing notes reviewed Medical History Spinal stenosis TMJ (dislocation of temporomandibular joint) Migraine COPD (chronic obstructive pulmonary disease) Asthma Depression Anxiety Prediabetes Arthritis of right knee Umbilical hernia Chronic idiopathic constipation Surgical History History of carpal tunnel release Hx of colonoscopy History of esophagogastroduodenoscopy (EGD) Hx of hand surgery H/O eye surgery Hx of hysterectomy Family History Family History Father Bone cancer Mother Diabetes Family/Other Family history of breast cancer Social History Social History Household Members: None Housing: Apartment Do you presently have visiting nurse or other home services: Yes (nursing once a week, home health aid 4x week) Alcohol intake: current Alcohol intake frequency: does not drink Patient Tobacco Use Status: Former Tobacco user Advance Directives: Yes Advance Directives Information Provided: No Advance Directives on File: No service: No Physical Exam ED Vital Signs: Vital Signs - 24 hr 07/02/23 19:56 07/03/23 00:12 07/03/23 00:28 Temperature 97.9 F 98.1 F 97.8 F Pulse Rate 70 70 58 Respiratory Rate 18 20 16 Blood Pressure 145/58 H 147/42 H 166/52 H Pulse Oximetry 100 99 96 Oxygen Delivery Method Room Air Room Air Room Air 07/03/23 02:41 Temperature 98.7 F Pulse Rate 58 Respiratory Rate 16 Blood Pressure 130/53 L Pulse Oximetry 97 Oxygen Delivery Method Room Air BMI result Body Mass Index 32.9 VITAL SIGNS: Reviewed. GENERAL: Well developed, well nourished, in no acute distress. HEAD: Normocephalic/atraumatic EYES: PERRLA, EOMI LUNGS: Normal breath sounds. No adventitious sounds or accessory muscle use. SpO2<97> CARDIOVASCULAR: Regular rate and rhythm without noted murmurs ABDOMEN: Soft, lower abdominal discomfort without rebound, non-distended with bowel sounds. MUSCULOSKELETAL: No tenderness, deformities, or effusions noted on gross inspection. EXTREMITIES: No cyanosis, clubbing or edema. SKIN: Inspection of the skin reveals no rashes NEUROLOGIC: Alert and oriented x 4. Strength and sensation to light touch were grossly intact x 4. Course Course Course Narrative: This is an RME: Additional HPI, ROS, PE not included below will be deferred to primary provider. RME assessment and note performed by: Kathy Wooten PA-C This is a [id number]-female, with a hx of spinal stenosis, asthma, COPD, who presents to the ER with complaints of lower abdominal pain and dysuria since this AM. When asked where her pain is, she reports diffuse abdominal pain. Patient's abdomen is diffusely tender. She does report she had some bright red blood with bowel movement today, only seen on toilet paper. Plan: Labs, UA, further ER evaluation needed. Medical Decision Making Medical Decision Making [facility] Narrative: 62-year-old female with history and clinical presentation, DDX: Constipation, UTI, lower clinical suspicion for diverticulitis/appendicitis/obstruction I reviewed all investigations and hematologic indices are negative for leukocytosis/anemia/thrombocytopenia. Chemistry indices are negative for CINTIA/electrolyte or liver enzyme derangements. Urinalysis is negative for a UTI. KUB is negative for any evidence to suggest bowel obstruction or ileus and otherwise no acute findings. Patient is otherwise discharged with instructions to follow-up with your primary care doctor for re-evaluation and further outpatient management. Differential Diagnosis Differential Diagnoses: The differential diagnosis associated with the presentation includes Please see the discussion above Admission/Observation Consideration of admission/observation: Escalation of care including admission/observation considered Please see the discussion above Lab Data [facility] Lab Attestation statement: I reviewed the patient's lab results. Please see the discussion above 07/02/23 20:07 07/02/23 20:07 Labs: Lab Results 07/02/23 07/03/23 Range/Units 20:07 00:22 WBC 10.2 (4.8-10.8) X10*3/uL RBC 3.95 L (4.20-5.50) X10*6/uL Hgb 12.0 (12.0-16.0) g/dl Hct 36.2 L (37.0-47.0) % MCV 91.6 (80.0-98.0) fL MCH 30.4 (27.0-33.0) pg MCHC 33.1 (31.0-35.0) g/dl RDW 12.9 (11.0-16.0) % Plt Count 274 (160-400) X10*3/uL MPV 9.4 (9.4-12.3) fL Immature Gran % (Auto) 0.4 (0.0-0.4) % Neut % (Auto) 58.3 (45-73) % Lymph % (Auto) 29.8 (20-40) % [place] % (Auto) 8.7 (2-11) % Eos % (Auto) 2.4 (0-4) % Baso % (Auto) 0.4 (0-2) % Lymph # (Auto) 3.0 (1.2-4.9) X10*3/uL [place] # (Auto) 0.9 (0.1-1.2) X10*3/uL Eos # (Auto) 0.3 (0.0-0.4) X10*3/uL Baso # (Auto) 0.0 (0.0-0.2) X10*3/uL Abs Immat Gran (auto) 0.04 H (0.00-0.03) X10*3/uL Absolute Neuts (auto) 6.0 (2.0-8.3) x10*3/uL Absolute Nucleated RBC 0.000 (0.0-0.012) X10*3/uL Nucleated RBC % (auto) 0.0 (0.0-0.2) /100WBC Sodium 137 (135-145) mmol/L Potassium 4.0 (3.3-5.1) mmol/L Chloride 104 (96-108) mmol/L Carbon Dioxide 23 (22-29) mmol/L Anion Gap 14 (12-20) BUN 12 (9-16) mg/dL Creatinine 0.56 (0.5-1.4) mg/dL Estim Creat Clear Calc 101.6 Estimated GFR > 60 Random Glucose 91 (60-115) mg/dL Calcium 8.6 (8.4-10.2) mg/dL Total Bilirubin 0.2 (0.0-1.0) mg/dL Direct Bilirubin < 0.2 (0.0-0.5) mg/dL AST 14 (5-31) U/L ALT 22 (0-31) U/L Alkaline Phosphatase 82 (39-117) U/L Total Protein 6.5 (6.5-8.0) g/dL Albumin 3.9 (3.5-5.0) g/dL Lipase 42 (8-78) U/L Urine Color Yellow Urine Appearance Clear Urine pH 8.5 (5.0-9.0) Ur Specific [place] 1.010 (1.005-1.025) Urine Protein Negative (Neg-Trace) mg/dL Urine Glucose (UA) Negative (Negative) mg/dL Urine Ketones Negative (Negative) mg/dL Urine Blood Negative (Negative) Urine Nitrite Negative (Negative) Ur Leukocyte Esterase Moderate (2+) H (Negative) Urine RBC 0-2 (0-2) /HPF Urine WBC 0-5 (0-5) /HPF Ur Squamous Epith Cells 0-2 (0-2) /HPF Urine Bacteria None Seen (None Seen) Hyaline Casts 0-2 (0-2) /LPF Radiology Impression Discussion of test interpretation with radiology: I have reviewed the radiologist's reading. Radiologist Impression: Please see the discussion above External Record Review External record reviewed: Outpatient record and Prior outpatient labs Critical Care Time Critical Care Time Critical Care Time: Yes Total Critical Care Time: 30 Attestation: I personally attest to this time spent taking care of the patient. Discharge Plan Discharge Clinical Impression: Abdominal discomfort Patient Disposition: Home, Self-Care Instructions: Abdominal Pain (ED) Additional Instructions: 1. Resume all home medications as prescribed. 2. Please follow-up with your primary care doctor in the next 2-3 days. Return to the ER for any worsening symptoms. Prescriptions: No Action Taltz Autoinjector 80 mg/mL auto-injector See Rx Instructions subcut Q4W Qty: 2 2RF Rx Instructions: 160 mg (2 pens) at week 0, then 80 mg every 4 weeks methotrexate sodium 2.5 mg tablet 20 mg PO QWEEK Qty: 96 0RF folic acid 1 mg tablet 1 mg PO DAILY Qty: 90 1RF ascorbic acid (vitamin C) [Vitamin C] 250 mg tablet,chewable 500 mg PO DAILY gabapentin 300 mg capsule 600 mg PO TID prazosin 2 mg capsule 4 mg PO BEDTIME diclofenac sodium 1 % gel 1 g topical QID PRN (Reason: Pain) multivitamin with folic acid [Daily-Maikel (with folic acid)] 400 mcg tablet 1 tab PO DAILY valacyclovir 500 mg Tablet 500 mg PO BID 7 Days Qty: 0 0RF carbamazepine [Tegretol XR] 400 mg tablet extended release 12 hr 400 mg PO BID cholecalciferol (vitamin D3) 50 mcg (2,000 unit) capsule 50 mcg PO DAILY montelukast [Singulair] 10 mg tablet 10 mg PO BEDTIME risperidone [Risperdal] 3 mg tablet 3 mg PO BID Patient Comments: 3 mg in the morning and 6 mg at bedtime. fexofenadine 180 mg tablet 180 mg PO BID meclizine 25 mg tablet 25 mg PO QID estradiol 1 mg tablet 1 mg PO DAILY lisinopril 10 mg tablet 10 mg PO DAILY vitamin B complex [Vitamins B Complex] Capsule 1 cap PO DAILY fluticasone propion-salmeterol 500-50 mcg/dose blister with device 1 ea inhalation BID metformin 500 mg tablet 500 mg PO BID Xolair 150 mg/mL syringe subcut Q2W Xolair 75 mg/0.5 mL syringe subcut Q2W topiramate 100 mg tablet 150 mg PO BID Incruse Ellipta 62.5 mcg/actuation blister with device 1 inh inhalation DAILY albuterol sulfate [Ventolin HFA] 90 mcg/actuation HFA aerosol inhaler 2 puff inhalation Q4H PRN (Reason: Wheezing) melatonin 3 mg tablet 9 mg PO BEDTIME sumatriptan succinate 100 mg tablet 100 mg PO DAILY PRN (Reason: Migraine Headache) diclofenac sodium 75 mg tablet,delayed release (DR/EC) 75 mg PO BID PRN (Reason: pain) Qty: 60 0RF aripiprazole 10 mg tablet 10 mg PO DAILY ondansetron 4 mg tablet,disintegrating 4 mg PO Q8H PRN (Reason: nausea and vomiting) Qty: 10 0RF pantoprazole 40 mg tablet,delayed release (DR/EC) 40 mg PO BID Qty: 60 6RF dicyclomine 10 mg capsule 10 mg PO Q6H PRN (Reason: GI UPSET) Qty: 120 6RF docusate sodium 100 mg capsule 100 mg PO BID Qty: 60 6RF lactase 3,000 unit tablet 3,000 - 6,000 unit PO TIDAC PRN (Reason: DAIRY INTOLERANCE) Qty: 120 6RF Referrals: Arabella Cerda [facility] ASSOCIATE [Primary Care Provider] - Print Language: Mauritian
[2023-07-02 20:39] LABS: MANUAL DIFF FLAG NO
[2023-07-02 20:43] LABS: Basophils Percent Auto 0.4 % (0-2); Eosinophils Absolute Auto 0.3 X10*3/uL (0.0-0.4); Eosinophils Percent Auto 2.4 % (0-4); Hematocrit 36.2 % (37.0-47.0); Imm Gran Abs Auto 0.04 X10*3/uL (0.00-0.03); Imm Gran Pct Auto 0.4 % (0.0-0.4); Lymphocytes Percent Auto 29.8 % (20-40); Mean Corpuscular HGB Conc 33.1 g/dl (31.0-35.0); Mean Corpuscular Hemoglobin 30.4 pg (27.0-33.0); Mean Corpuscular Volume 91.6 fL (80.0-98.0); Mean Platelet Volume 9.4 fL (9.4-12.3); Monocytes Absolute Auto 0.9 X10*3/uL (0.1-1.2); Monocytes Percent Auto 8.7 % (2-11); Neutrophils Percent Auto 58.3 % (45-73); Platelet Count 274 X10*3/uL (160-400); Red Blood Count 3.95 X10*6/uL (4.20-5.50); Red Cell Distribution Width 12.9 % (11.0-16.0); White Blood Count 10.2 X10*3/uL (4.8-10.8)
[2023-07-02 21:02] LABS: Alanine Aminotransferase 22 U/L (0-31); Albumin Level 3.9 g/dL (3.5-5.0); Alkaline Phosphatase 82 U/L (39-117); Anion Gap 14 (12-20); Aspartate Amino Transferase 14 U/L (5-31); Bilirubin Direct < 0.2 mg/dL (0.0-0.5); Bilirubin Total 0.2 mg/dL (0.0-1.0); Blood Urea Nitrogen 12 mg/dL (9-16); Calcium 8.6 mg/dL (8.4-10.2); Carbon Dioxide 23 mmol/L (22-29); Chloride 104 mmol/L (96-108); Creatinine Clr Calc Pharmacy 101.6; Estimated Glomerular Filt Rate > 60; Glucose Random 91 mg/dL (60-115); Lipase 42 U/L (8-78); Sodium 137 mmol/L (135-145); Total Protein 6.5 g/dL (6.5-8.0)
[2023-07-03 00:12] VITALS: BP 147/42; PULSE 70; RESP 20; TEMP 36.7; O2SAT 99
[2023-07-03 00:28] VITALS: BP 166/52; PULSE 58; RESP 16; TEMP 36.6; O2SAT 96
[2023-07-03 00:30] LABS: Appearance Urine Clear; Color Urine Yellow; Glucose Urine UA Negative (Negative); Leukocyte Esterase Urine Moderate (2+) (Negative); Nitrite Urine Negative (Negative); PH 8.5 (5.0-9.0); UMIC TRIGGER UACC YES; Urine Blood Negative (Negative); Urine Ketones Negative (Negative); Urine Protein Negative (Neg-Trace)
[2023-07-03 00:49] LABS: Bacteria Urine None Seen (None Seen); Hyaline Casts Urine 0-2 /LPF (0-2); RBC Urine 0-2 /HPF (0-2); Squamous Epithelial Cell Urine 0-2 /HPF (0-2); WBC Urine 0-5 /HPF (0-5)
[2023-07-03 02:41] VITALS: BP 130/53; PULSE 58; RESP 16; TEMP 37.1; O2SAT 97
[2023-07-03 05:06] VITALS: BP 165/54; PULSE 62; RESP 16; TEMP 36.7; O2SAT 95
[2023-07-03 05:27] VITALS: BP 165/54; PULSE 62; RESP 16; TEMP 36.7; O2SAT 95
== END 2023-07-03 07:11 | disposition home or self-care (01) ==
PROVIDERS: Physician Assistant Medical; Emergency Provider Student in an Organized Health Care Education/Training Program; PCP Nurse Practitioner Family
DX: R10.30 Lower abdominal pain, unspecified (principal); J45.909 Unspecified asthma, uncomplicated; Z79.899 Other long term (current) drug therapy
CPT/HCPCS: 36415; 74018; 80048; 80076; 81001; 83690; 85025; 99283

== ENCOUNTER 2023-07-27 07:53 | Outpatient (AMB) | payer OTHER, SELFPAY ==
--- NOTE | 2023-07-27 08:04 | A.OFFVIS_ITS ---
Intake Visit Reasons: OV-Left elbow/hand pain Intake Note: Elizabeth is a 62 year old right hand dominant female who presents today for a evaluation of her left elbow pain. Patient reports this pain started about a year ago. Pt denies any injury to her elbow. Pt states she has swelling and pain everyday. Pt states tylenol and ibuprofen no longer are working. Pt states she tried PT with no relief. Allergies cephalexin Allergy (Intermediate, Verified 07/27/23 08:04) Diarrhea Iodinated Contrast Media [IV CONTRAST] Allergy (Intermediate, Verified 07/27/23 08:04) DIFF BREATHING morphine [MORPHINE] Allergy (Intermediate, Verified 07/27/23 08:04) HIVES nabumetone [NABUMETONE] Allergy (Intermediate, Verified 07/27/23 08:04) HIVES sulfamethoxazole [From BACTRIM] Allergy (Intermediate, Verified 07/27/23 08:04) HIVES trimethoprim [From BACTRIM] Allergy (Intermediate, Verified 07/27/23 08:04) HIVES dicloxacillin Allergy (Unknown, Verified 07/27/23 08:04) Rash dyclonine Allergy (Unknown, Verified 07/27/23 08:04) Unknown propranolol [Inderal LA] Allergy (Unknown, Verified 07/27/23 08:04) unknown quetiapine [Seroquel] Allergy (Unknown, Verified 07/27/23 08:04) rash seafood Allergy (Unknown, Verified 07/27/23 08:04) Unknown Sulfa (Sulfonamide Antibiotics) Allergy (Unknown, Verified 07/27/23 08:04) hives amoxicillin [From Augmentin] Allergy (Verified 07/27/23 08:04) stomach pain clavulanic acid [From Augmentin] Allergy (Verified 07/27/23 08:04) stomach pain polyethylene glycol [From Golytely] Adverse Reaction (Severe, Verified 07/27/23 08:04) Hallucinations polyethylene glycol 3350 [From Golytely] Adverse Reaction (Severe, Verified 07/27/23 08:04) Hallucinations potassium chloride [From Golytely] Adverse Reaction (Severe, Verified 07/27/23 08:04) Hallucinations sodium [From Golytely] Adverse Reaction (Severe, Verified 07/27/23 08:04) Hallucinations sodium bicarbonate [From Golytely] Adverse Reaction (Severe, Verified 07/27/23 08:04) Hallucinations sodium chloride [From Golytely] Adverse Reaction (Severe, Verified 07/27/23 08:04) Hallucinations sodium sulfate [From Golytely] Adverse Reaction (Severe, Verified 07/27/23 08:04) Hallucinations doxycycline [DOXYCYCLINE] Adverse Reaction (Intermediate, Verified 07/27/23 08:04) NAUSEA & VOMITTING From INDERAL Allergy (Intermediate, Uncoded 07/27/23 08:04) RASH Codeine Sulfate Allergy (Unknown, Uncoded 07/27/23 08:04) Unknown HPI HPI OV-Left elbow/hand pain: Details: 62-year-old right hand dominant female who presents in the office today for a follow-up of left elbow pain. I last saw the patient in the office on 03/12/2023 when we discussed cortisone injections, but the patient wished to trial physical therapy first. I also prescribed diclofenac 75 mg PO BID PRN to aid in relief. Patient is currently followed by Rheumatology for psoriatic arthritis. While in the office today the patient confirmed her pain began about a year ago, in 2022. She denies any known injury to the left elbow. She reports edema and pain daily. She claims OTC Tylenol and ibuprofen are no longer giving her relief. She also reports trial and failure of physical therapy treatment. [facility] Medical History Spinal stenosis TMJ (dislocation of temporomandibular joint) Migraine COPD (chronic obstructive pulmonary disease) Asthma Depression Anxiety Prediabetes Arthritis of right knee Umbilical hernia Chronic idiopathic constipation Surgical History History of carpal tunnel release Hx of colonoscopy History of esophagogastroduodenoscopy (EGD) Hx of hand surgery H/O eye surgery Hx of hysterectomy Family History Father Bone cancer Mother Diabetes Family/Other Family history of breast cancer Social History Household Members: None Housing: Apartment Do you presently have visiting nurse or other home services: Yes (nursing once a week, home health aid 4x week) Alcohol intake: current Alcohol intake frequency: does not drink Patient Tobacco Use Status: Former Tobacco user service: No Review of Systems Const All systems reviewed & are unremarkable except as noted in HPI and below Physical Exam Const General: cooperative, healthy appearing and no acute distress Resp Effort & Inspection: normal respiratory effort and able to speak in complete sentences Cardio Rate: regular rate Peripheral pulses: Peripheral pulses 2+ throughout GI Palpation (GI): Soft to palpation Skin Lesions: no lesions Rashes: no rashes Extrem Other: Left elbow: Normal to inspection. No ecchymosis, erythema, or edema. No tenderness to palpation over the olecranon. Tenderness to the medial or lateral epicondyle. NVI. Assessment & Plan Assessment & Plan (1) Left tennis elbow: Code(s): M77.12 - Lateral epicondylitis, left elbow Category: Medical Plan Ms. Huang is a 62-year-old right hand dominant female who presents in the office today for a follow-up of left elbow pain. I last saw the patient in the office on 03/12/2023 when we discussed cortisone injections, but the patient wished to trial physical therapy first. I also prescribed diclofenac 75 mg PO BID PRN to aid in relief. Patient is currently followed by Rheumatology for psoriatic arthritis. While in the office today the patient confirmed her pain began about a year ago, in 2022. She denies any known injury to the left elbow. She reports edema and pain daily. She claims OTC Tylenol and ibuprofen are no longer giving her relief. She also reports trial and failure of physical therapy treatment. We discussed the role of cortisone injections; however, the patient reports she has had cortisone injections in this area in the past with no relief. Therefore, she is not interested in repeating them at this time. We discussed the role of physical therapy, but she states she has attended therapy, and it made her pain worse. We discussed that there is no surgical intervention warranted for this condition. I offered the patient an off the shelf tennis elbow brace, which she has agreed to trial at this time. I sent a prescription for a topical pain cream. If the patient continues to have pain I would recommend an evaluation by Pain Management. Follow-up will be PRN, or sooner if needed. X-rays of the left hand which were obtained while in the office today and were reviewed by me, Lucia Krueger PA-C, revealed no acute fracture or dislocation. Mild arthritic changes. Orders: Orders XR hand LT min 3V Today M79.643 - Pain in unspecified hand Patient Instructions: Scribed by Barbara Gomez medical records library professor, for Lucia Krueger PA-C on 07/27/2023 at 8:13 am, EST. Coding Level of Care Code Est Pt Level 3 (15746) Diagnoses Left tennis elbow M77.12
== END 2023-07-27 08:49 | disposition home or self-care (01) ==
PROVIDERS: PCP Nurse Practitioner Family; Visit Provider Physician Assistant
DX: M77.12 Lateral epicondylitis, left elbow (principal)
CPT/HCPCS: 99213

== ENCOUNTER 2023-07-27 08:56 | Outpatient (REF) | payer OTHER, SELFPAY | END 2023-07-27 08:57 | disposition home or self-care (01) | LOC: HO.HOSX 08:56 | PROVIDERS: Visit Provider Physician Assistant | DX: M79.642 Pain in left hand (principal); M77.12 Lateral epicondylitis, left elbow | CPT/HCPCS: 73130; 99212 ==

== ENCOUNTER 2023-08-01 10:03 | Outpatient (AMB) | payer OTHER, SELFPAY ==
[2023-08-01 10:10] VITALS: BP 132/78; PULSE 76; O2SAT 97; BMI 32.9
--- NOTE | 2023-08-01 10:10 | MHC.OFFVIS ---
Vital Signs 08/01/23 10:10 Height 5 ft 1 in Weight 174 lb 2.643 oz BMI 32.9 BP 132/78 Blood Pressure Location Rt brachial Position Sitting Pulse 76 Pulse Source Pulse Oximeter Pulse Oximetry (%) 97 Oxygen Delivery Method Room Air Intake Visit Reasons: PSA/CM Intake Note: Patient last seen 05/30/23 presents today for follow up and test results. Se did not do her bloodwork. She will do this here today after the visit. Reports left hand and elbow pain Surface Lay Out Technician Required: No Accompanied by: Self / Same As Patient Allergies cephalexin Allergy (Intermediate, Verified 08/01/23 10:17) Diarrhea Iodinated Contrast Media [IV CONTRAST] Allergy (Intermediate, Verified 08/01/23 10:17) DIFF BREATHING morphine [MORPHINE] Allergy (Intermediate, Verified 08/01/23 10:17) HIVES nabumetone [NABUMETONE] Allergy (Intermediate, Verified 08/01/23 10:17) HIVES sulfamethoxazole [From BACTRIM] Allergy (Intermediate, Verified 08/01/23 10:17) HIVES trimethoprim [From BACTRIM] Allergy (Intermediate, Verified 08/01/23 10:17) HIVES dicloxacillin Allergy (Unknown, Verified 08/01/23 10:17) Rash dyclonine Allergy (Unknown, Verified 08/01/23 10:17) Unknown propranolol [Inderal LA] Allergy (Unknown, Verified 08/01/23 10:17) unknown quetiapine [Seroquel] Allergy (Unknown, Verified 08/01/23 10:17) rash seafood Allergy (Unknown, Verified 08/01/23 10:17) Unknown Sulfa (Sulfonamide Antibiotics) Allergy (Unknown, Verified 08/01/23 10:17) hives amoxicillin [From Augmentin] Allergy (Verified 08/01/23 10:17) stomach pain clavulanic acid [From Augmentin] Allergy (Verified 08/01/23 10:17) stomach pain polyethylene glycol [From Golytely] Adverse Reaction (Severe, Verified 08/01/23 10:17) Hallucinations polyethylene glycol 3350 [From Golytely] Adverse Reaction (Severe, Verified 08/01/23 10:17) Hallucinations potassium chloride [From Golytely] Adverse Reaction (Severe, Verified 08/01/23 10:17) Hallucinations sodium [From Golytely] Adverse Reaction (Severe, Verified 08/01/23 10:17) Hallucinations sodium bicarbonate [From Golytely] Adverse Reaction (Severe, Verified 08/01/23 10:17) Hallucinations sodium chloride [From Golytely] Adverse Reaction (Severe, Verified 08/01/23 10:17) Hallucinations sodium sulfate [From Golytely] Adverse Reaction (Severe, Verified 08/01/23 10:17) Hallucinations doxycycline [DOXYCYCLINE] Adverse Reaction (Intermediate, Verified 08/01/23 10:17) NAUSEA & VOMITTING From INDERAL Allergy (Intermediate, Uncoded 08/01/23 10:17) RASH Codeine Sulfate Allergy (Unknown, Uncoded 08/01/23 10:17) Unknown Medication List - Last Reconciled 08/01/23 by Nael Yang MD albuterol sulfate 90 mcg/actuation (Ventolin HFA) 2 puffs inhalation Q4H PRN aripiprazole 10 mg PO DAILY ascorbic acid (vitamin C) (Vitamin C) 500 mg PO DAILY carbamazepine ER (Tegretol XR) 400 mg PO BID cholecalciferol (vitamin D3) 50 mcg PO DAILY diclofenac sodium 1% 1 g topical QID PRN diclofenac sodium 75 mg PO BID PRN dicyclomine 10 mg PO Q6H PRN docusate sodium 100 mg PO BID estradiol 1 mg PO DAILY fexofenadine 180 mg PO BID fluticasone propion-salmeterol 500-50 mcg/dose 1 ea inhalation BID folic acid 1 mg PO DAILY gabapentin 600 mg PO TID lactase 3,000 - 6,000 units (1 - 2 x 3,000 unit) PO TIDAC PRN lisinopril 10 mg PO DAILY meclizine 25 mg PO QID melatonin 9 mg PO BEDTIME metformin 500 mg PO BID methotrexate sodium 20 mg (8 x 2.5 mg) PO QWEEK montelukast (Singulair) 10 mg PO BEDTIME multivitamin with folic acid 400 mcg (Daily-Maikel (with folic acid)) 1 tab PO DAILY omalizumab (Xolair) mg subcut Q2W omalizumab (Xolair) mg subcut Q2W ondansetron 4 mg PO Q8H PRN pantoprazole 40 mg PO BID prazosin 4 mg PO BEDTIME risperidone (Risperdal) 3 mg PO BID sumatriptan succinate 100 mg PO DAILY PRN Taltz Autoinjector (ixekizumab) 160 mg (2 pens) at week 0, then 80 mg every 4 weeks NS topiramate 150 mg PO BID umeclidinium 62.5 mcg/actuation (Incruse Ellipta) 1 inh inhalation DAILY valacyclovir 500 mg PO BID 7 days vitamin B complex (Vitamins B Complex capsule) 1 cap PO DAILY [wrist splint Wear nightly and as much as possible throughout the day] HPI Comments Details: 62-year-old female with psoriatic arthritis returns for follow-up. She is on methotrexate 20 mg weekly, Taltz injection every 4 weeks. She states that she has been having left elbow and left hand pain. She also feels numbness in her left hand fingers. Usually worse at night. Her joints feel well otherwise. She states that she was recently diagnosed with a respiratory infection and was just started on a prednisone taper yesterday. Not on antibiotics. Initial history:This is a 61-year-old female with complex past medical history including asthma/COPD, anxiety, depression, migraines, lumbar spinal stenosis who presents for evaluation of diffuse joint pain. Patient has had bilateral knee pain for at least 6 years. She had numerous intra-articular steroid injections without any relief. She used to see Dr. Chance Christina as well as Dr. Mayorga at [place] and was most recently following up with Dr. Lucero. Patient received prednisone in the past for her arthritis without any significant relief. Also the intra-articular steroid injections do not provide any relief. Over the last year she has been having pain of her knuckles, wrists, fingers associated with morning stiffness lasting 2 hours improved with moving her hands around. Continues to have chronic knee pain that is unchanged. She stated that her older sister was diagnosed with rheumatoid arthritis. She was just recently started on prednisone 20 mg Twice daily for asthma attack. She stated that prednisone does not significantly improve her joint pain [facility] Medical History Spinal stenosis TMJ (dislocation of temporomandibular joint) Migraine COPD (chronic obstructive pulmonary disease) Asthma Depression Anxiety Prediabetes Arthritis of right knee Umbilical hernia Chronic idiopathic constipation Surgical History History of carpal tunnel release Hx of colonoscopy History of esophagogastroduodenoscopy (EGD) Hx of hand surgery H/O eye surgery Hx of hysterectomy Family History Father Bone cancer Mother Diabetes Family/Other Family history of breast cancer Social History Household Members: None Housing: Apartment Do you presently have visiting nurse or other home services: Yes (nursing once a week, home health aid 4x week) Alcohol intake: current Alcohol intake frequency: does not drink Patient Tobacco Use Status: Former Tobacco user service: No Review of Systems Musc Reports arthralgias, Reports limited range of motion, Reports numbness, Reports stiffness and Reports tingling Neuro Reports numbness and Reports tingling Physical Exam Vital Signs: Last Vital Signs Pulse 76 08/01/23 10:10 BP 132/78 08/01/23 10:10 Pulse Ox 97 08/01/23 10:10 Oxygen Delivery Method Room Air 08/01/23 10:10 BMI result Body Mass Index 32.9 Const General: cooperative and no acute distress Nutritional Appearance: obese morbidly obese Limitations: ambulation with walker HEENT Head: Yes normocephalic and Yes atraumatic Resp Effort & Inspection: normal respiratory effort and able to speak in complete sentences Skin General skin exam: no rashes or lesions noted Extrem Other: Normal range of motion of right shoulder without pain Significantly limited left range of motion. Right hand, wrists, elbows without synovitis Left elbow pain with full flexion and extension Left wrist pain with full flexion-extension Multiple tender MCPs and PIP is left hand Positive Tinel sign on the left No swollen joints No role range of motion of knees without pain Results Reviewed Results Reviewed: Right hand/ wrist MSK ultrasound 03/06? Impression:? Mild tenosynovitis of the 2nd extensor compartment Assessment & Plan Assessment & Plan (1) Psoriatic arthritis: Comment: dx 03/06 Right thumb dactylitis 06/04 MTX started 07/04 effective Humira added 11/04 DC 12/04 due to pneumonia admission Taltz 02/2023 effective Code(s): L40.50 - Arthropathic psoriasis, unspecified Category: Medical Plan: This is a 62-year-old female with psoriatic arthritis who presents for follow-up. On methotrexate 20 mg weekly, folic acid 1 mg daily and Taltz 80 mg q.4 weeks Patient is doing quite well overall. She only has few tender joints. She was started on a prednisone taper for a respiratory infection yesterday, this should help her joint pain. 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 Advised patient to wear a wrist splint. Follow-up with hand surgeon if no improvement Plan I spent 30 minutes reviewing patient's chart, evaluating patient, ordering diagnostic workup, counseling patient and documenting in the chart Orders: Orders Complete Blood Count Auto Diff 3 Months L40.50 - Arthropathic psoriasis, unspecified, Z79.631 - intermediate (current) use of antimetabolite agent Erythrocyte Sedimentation Rate 3 Months L40.50 - Arthropathic psoriasis, unspecified, Z79.631 - intermediate (current) use of antimetabolite agent Comprehensive Met. 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
== END 2023-08-01 10:41 | disposition home or self-care (01) ==
PROVIDERS: PCP Nurse Practitioner Family; Visit Provider Student in an Organized Health Care Education/Training Program
DX: L40.50 Arthropathic psoriasis, unspecified (principal); Z79.631 Long term (current) use of antimetabolite agent; G56.02 Carpal tunnel syndrome, left upper limb
CPT/HCPCS: 99214; G2211

== ENCOUNTER → 2023-08-01 10:03 | Outpatient (BNVA) | payer OTHER, SELFPAY | PROVIDERS: PCP Nurse Practitioner Family; Visit Provider Student in an Organized Health Care Education/Training Program | DX: L40.50 Arthropathic psoriasis, unspecified (principal); G56.02 Carpal tunnel syndrome, left upper limb; Z79.631 Long term (current) use of antimetabolite agent | CPT/HCPCS: 99212 ==

== ENCOUNTER 2023-08-01 11:07 | Outpatient (REF) | payer OTHER, SELFPAY ==
[2023-08-01 11:37] LABS: MANUAL DIFF FLAG NO
[2023-08-01 11:43] LABS: Basophils Percent Auto 0.2 % (0-2); Hematocrit 37.2 % (37.0-47.0); Hemoglobin 12.1 g/dl (12.0-16.0); Imm Gran Abs Auto 0.05 X10*3/uL (0.00-0.03); Imm Gran Pct Auto 0.6 % (0.0-0.4); Lymphocytes Absolute Auto 1.2 X10*3/uL (1.2-4.9); Lymphocytes Percent Auto 13.4 % (20-40); Mean Corpuscular HGB Conc 32.5 g/dl (31.0-35.0); Mean Corpuscular Hemoglobin 30.9 pg (27.0-33.0); Mean Corpuscular Volume 95.1 fL (80.0-98.0); Mean Platelet Volume 9.6 fL (9.4-12.3); Monocytes Absolute Auto 0.2 X10*3/uL (0.1-1.2); Neutrophils Absolute Auto 7.5 x10*3/uL (2.0-8.3); Neutrophils Percent Auto 83.8 % (45-73); Platelet Count 286 X10*3/uL (160-400); Red Blood Count 3.91 X10*6/uL (4.20-5.50); Red Cell Distribution Width 13.2 % (11.0-16.0)
[2023-08-01 12:25] LABS: Erythrocyte Sedimentation Rate 23 MM/HR (0-20)
[2023-08-01 12:58] LABS: Alanine Aminotransferase 16 U/L (0-31); Alkaline Phosphatase 85 U/L (39-117); Anion Gap 12 (12-20); Aspartate Amino Transferase 13 U/L (5-31); Bilirubin Total 0.1 mg/dL (0.0-1.0); Blood Urea Nitrogen 10 mg/dL (9-16); C Reactive Protein 1.39 mg/dL (< or = 0.50); Calcium 8.5 mg/dL (8.4-10.2); Carbon Dioxide 22 mmol/L (22-29); Chloride 109 mmol/L (96-108); Estimated Glomerular Filt Rate > 60; Glucose Random 185 mg/dL (60-115); Potassium 4.3 mmol/L (3.3-5.1); Sodium 139 mmol/L (135-145)
[2023-08-01 13:13] LABS: HBS Num1 0.74 mIU/mL (0-7.99); HBc Num1 0.11 S/CO (0.00-0.79); Hepatitis A Antibody IgM 0.14 Index (0-0.79); Hepatitis B Core Antibody Nonreactive (Nonreactive); Hepatitis B Surface Antigen Negative (Negative); ~Hepatitis A Antibody IgM Nonreactive (Nonreactive); ~Hepatitis B Surface Antibody NONREACTIVE (Nonreactive); ~Hepatitis C Antibody Nonreactive (Nonreactive)
[2023-08-06 21:53] LABS: TS Negative Control Passed; TS Panel A 0; TS Panel B 0; TS Positive Control Passed; TSpotTB Negative (Negative)
== END 2023-08-01 11:08 | disposition home or self-care (01) ==
LOC: HO.10HDL 11:07
PROVIDERS: Visit Provider Student in an Organized Health Care Education/Training Program
DX: K21.9 Gastro-esophageal reflux disease without esophagitis (principal); K58.9 Irritable bowel syndrome, unspecified; Z86.010 Personal history of colon polyps; L40.50 Arthropathic psoriasis, unspecified; Z11.7 Encounter for testing for latent tuberculosis infection; Z11.59 Encounter for screening for other viral diseases; Z72.89 Other problems related to lifestyle
CPT/HCPCS: 36415; 80053; 85025; 85652; 86140; 86481; 86704; 86706; 86709; 86803; 87340; 99212

== ENCOUNTER 2023-08-01 15:27 | Outpatient (AMB) | payer OTHER, SELFPAY ==
--- NOTE | 2023-08-01 15:30 | A.OFFVIS_ITS ---
Vital Signs 08/01/23 15:32 Height 5 ft 1 in Weight 174 lb BMI 32.9 BP 151/57 H Blood Pressure Location Lt brachial Position Sitting Pulse 66 Intake Visit Reasons: Gerd Intake Note: Elizabeth presents to in office visit today in follow up of GERD. CC: Patient c/o RUQ abdominal pain with radiation to mid and lower abdomen. Patient reports that she's had this pain for 2 weeks. Pain on and off and pain scale 10/10 per patient. Editing Clerk Required: No Accompanied by: Self / Same As Patient Allergies cephalexin Allergy (Intermediate, Verified 08/01/23 15:39) Diarrhea Iodinated Contrast Media [IV CONTRAST] Allergy (Intermediate, Verified 08/01/23 15:39) DIFF BREATHING morphine [MORPHINE] Allergy (Intermediate, Verified 08/01/23 15:39) HIVES nabumetone [NABUMETONE] Allergy (Intermediate, Verified 08/01/23 15:39) HIVES sulfamethoxazole [From BACTRIM] Allergy (Intermediate, Verified 08/01/23 15:39) HIVES trimethoprim [From BACTRIM] Allergy (Intermediate, Verified 08/01/23 15:39) HIVES dicloxacillin Allergy (Unknown, Verified 08/01/23 15:39) Rash dyclonine Allergy (Unknown, Verified 08/01/23 15:39) Unknown propranolol [Inderal LA] Allergy (Unknown, Verified 08/01/23 15:39) unknown quetiapine [Seroquel] Allergy (Unknown, Verified 08/01/23 15:39) rash seafood Allergy (Unknown, Verified 08/01/23 15:39) Unknown Sulfa (Sulfonamide Antibiotics) Allergy (Unknown, Verified 08/01/23 15:39) hives amoxicillin [From Augmentin] Allergy (Verified 08/01/23 15:39) stomach pain clavulanic acid [From Augmentin] Allergy (Verified 08/01/23 15:39) stomach pain polyethylene glycol [From Golytely] Adverse Reaction (Severe, Verified 08/01/23 15:39) Hallucinations polyethylene glycol 3350 [From Golytely] Adverse Reaction (Severe, Verified 08/01/23 15:39) Hallucinations potassium chloride [From Golytely] Adverse Reaction (Severe, Verified 08/01/23 15:39) Hallucinations sodium [From Golytely] Adverse Reaction (Severe, Verified 08/01/23 15:39) Hallucinations sodium bicarbonate [From Golytely] Adverse Reaction (Severe, Verified 08/01/23 15:39) Hallucinations sodium chloride [From Golytely] Adverse Reaction (Severe, Verified 08/01/23 15:39) Hallucinations sodium sulfate [From Golytely] Adverse Reaction (Severe, Verified 08/01/23 15:39) Hallucinations doxycycline [DOXYCYCLINE] Adverse Reaction (Intermediate, Verified 08/01/23 15:39) NAUSEA & VOMITTING From INDERAL Allergy (Intermediate, Uncoded 08/01/23 10:17) RASH Codeine Sulfate Allergy (Unknown, Uncoded 08/01/23 10:17) Unknown HPI HPI Gerd: Details: Assessment & Plan (1) Tubular adenoma: Comment: 2016 scope=TA, repeat 2021 Code(s): D36.9 - Benign neoplasm, unspecified site (2) GERD (gastroesophageal reflux disease): Code(s): K21.9 - Gastro-esophageal reflux disease without esophagitis (3) IBS (irritable bowel syndrome): Code(s): K58.9 - Irritable bowel syndrome without diarrhea Plan She says she was hospitalized with pneumonia and sepsis in October. She was hospitalized for a week, then she went to [address] and came down with COVID, so she has had a tough time! She missed her colonoscopy because of this which is understandable. Now that she is home and she feels she is ready I will send a note to our schedulers to get her back on the schedule for the EGD/colonoscopy. She has a new dx of RA and was on Humira but now is on TALZ. She has a lot of body aches, and fatigue. She still has the prep at home. She continues on her dicyclomine, Colace, Lactaid tablets, and pantoprazole twice a day. They seem to be controlling her GI conditions well. Return office visit in 6 months and after the colonoscopy. Medications: New dicyclomine 10 mg PO Q6H PRN 120 caps 6RF GI UPSET lactase 3,000 - 6,000 units (1 - 2 x 3,000 unit) PO TIDAC PRN 120 tabs 6RF DAIRY INTOLERANCE docusate sodium 100 mg PO BID 60 caps 6RF Refilled ondansetron 4 mg PO Q8H PRN 10 tabs 0RF nausea and vomiting pantoprazole 40 mg PO BID 60 tabs 6RF K21.9 - Gastro-esophageal reflux disease without esophagitis On 11/24/22 @ 14:41 Brandi Pena Wrote To KyreeMay pt just wanted me to let you know she is hospitalized with pneumonia and that is why she wasn't able to do her procedure and her follow up she has been very sick as of late. CT ABDOMEN AND PELVIS-PERFORMED AT ANOTHER FACILITY UNCERTAIN WHERE STATUS POST CHOLECYSTECTOMY WITH MILD BILIARY DUCT DILATION UNCHANGED, NO SPLENOMEGALY, SOME SMALL RENAL CALCULI, BOWELS NO DILATION OR WALL THICKENING. OCCASIONAL SIGMOID DIVERTICULOSIS. CORRESPONDENCE On 07/31/23 @ 16:07 Samia Stauffer Wrote To KyreeMay Patient scheduled for 08/01/23. On 07/30/23 @ 16:58 Samia Stauffer Wrote To Samia Stauffer Called Elizabeth and LVM offering appointment this week and to call back the office. On 07/27/23 @ 15:28 Ana Maria Adorno Wrote To Samia Stauffer Ok to book earlier V On 07/27/23 @ 14:30 Brandi Pena Wrote To KyreeMay (2) Patient called and stated that she has been having bad stomach pains, she had a CT done and the report is scanned in and I tasked you. She wants a sooner appointment than the one in September. Please advise on how you would like me to move forward for her thank you TODAY'S VISIT She developed sudden onset RLQ pain 3 weeks ago. She has had a CT and an US that showed only, on US, ? of renal stone. The pain feels like someone id stabbing her with a knife and radiates to her back. The pain comes and goes, but will last hours when it starts, She can not ID any precipitating factors, and only is better with laying on her left side. The pain is worse when she urinates but is not worse with BM. She has been taking tylenol and motrin which only takes the edge off. The pain is 10/10. She continues on her dicyclomine, Colace, Lactaid tablets, and pantoprazole twice a day. I am afraid that she may have smoldering appendicitis since this can frequently be difficult to diagnose. I am going to try treating her with an antibiotic to see if it gets any better and I did let her know that if it gets severely where she should report to the ER that this can be a tricky thing to diagnose. Will also get a urinalysis to see if this any blood in the urine in any reason to suspect that she is passing kidney stone. Will give her some ibuprofen since this together with Tylenol should help her with the pain. Return office visit in 1 week given the mysterious and sudden onset of her pain. [facility] Medical History Spinal stenosis TMJ (dislocation of temporomandibular joint) Migraine COPD (chronic obstructive pulmonary disease) Asthma Depression Anxiety Prediabetes Arthritis of right knee Umbilical hernia Chronic idiopathic constipation Surgical History History of carpal tunnel release Hx of colonoscopy History of esophagogastroduodenoscopy (EGD) Hx of hand surgery H/O eye surgery Hx of hysterectomy Family History Father Bone cancer Mother Diabetes Family/Other Family history of breast cancer Social History Household Members: None Housing: Apartment Do you presently have visiting nurse or other home services: Yes (nursing once a week, home health aid 4x week) Alcohol intake: current Alcohol intake frequency: does not drink Patient Tobacco Use Status: Former Tobacco user service: No Review of Systems Const Denies fatigue, Denies fever(s), Denies night sweats, Denies poor appetite and Denies weight loss Eyes Details: glasses Reports requires corrective lenses ENT Reports Normal hearing present, Denies dental pain, Denies dysphagia, Denies hearing loss, Denies mouth pain, Denies odynophagia, Denies throat swelling, Denies tongue swelling and Reports other (Dentition adequate) Card Reports no additional complaints Resp Reports no additional complaints GI Details: Reports abdominal pain, Denies melena, Denies bloating, Denies hematochezia, Reports constipation, Denies GI cramping, Denies dysphagia, Denies excessive flatus, Denies early satiety, Reports heartburn, Denies diarrhea, Reports nausea, Denies odynophagia, Denies vomiting and Denies hematemesis Reports dysuria, Reports pelvic pain and Reports flank pain Musc Reports back pain Skin/Breast Denies pruritus, Denies lesions, Denies rash and Denies jaundice Neuro Reports Normal hearing present and Denies Abnormal speech present Endo Denies fatigue Aller/Immun Denies throat swelling and Denies tongue swelling Physical Exam Vital Signs: Last Vital Signs Pulse 66 08/01/23 15:32 BP 151/57 H 08/01/23 15:32 BMI result Body Mass Index 32.9 Const General: cooperative, no acute distress, well developed and well groomed Nutritional Appearance: well nourished and obese Orientation/consciousness: oriented to person, oriented to place and oriented to time Limitations: No language barrier HEENT Head: Yes normocephalic and Yes atraumatic Eyes General: appearance normal, both eyes and all related structures Pupils: Equal, round and reactive pupils present Neck Neck: Yes normal visual inspection and Yes no lymphadenopathy Thyroid: Thyroid normal Resp Effort & Inspection: normal respiratory effort and able to speak in complete sentences Auscultation: clear to auscultation bilaterally Cardio Rate: regular rate Rhythm: regular rhythm Heart sounds: Normal, physiologic split S2 sound present Peripheral pulses: radial pulses present and posterior tibial pulses present GI Inspection: No distended, Yes Abdominal panniculus present and Yes obesity Palpation (GI): Soft to palpation, Tenderness to palpation present (GI) in the RLQ, in the RUQ, obturator sign positive and with rebound tenderness, no guarding, not rigid and No hepatosplenomegaly present Percussion: Yes normal to percussion Auscultation: normal bowel sounds Rectal Exam - Female: deferred Skin General skin exam: no rashes or lesions noted, turgor normal, skin not dry, no jaundice, No spider nevi and no striae Rashes: no rashes Nails: normal Neuro General: oriented to person, oriented to place and oriented to time Cranial nerves: Yes Equal, round and reactive pupils present and Yes Normal hearing present Speech: No Abnormal speech present Extrem General: Yes normal to inspection, No clubbing, No cyanosis and No edema Psych Appearance: grossly normal and well kempt Mental Status: mental status grossly normal Speech and movement: Normal speech and movement present Affect: normal affect Attitude: cooperative Thought process: Normal thought process present and not confabulating Thought content: Normal thought content present Insight: Limited insight present (Psych) and Poor insight present (Psych) Judgement: Limited judgement present (Psych) and Poor judgement present (Psych) Results Reviewed Results Reviewed: CT ABDOMEN AND PELVIS-PERFORMED AT ANOTHER FACILITY UNCERTAIN WHERE STATUS POST CHOLECYSTECTOMY WITH MILD BILIARY DUCT DILATION UNCHANGED, NO SPLENOMEGALY, SOME SMALL RENAL CALCULI, BOWELS NO DILATION OR WALL THICKENING. OCCASIONAL SIGMOID DIVERTICULOSIS. Assessment & Plan Assessment & Plan (1) RLQ abdominal pain: Code(s): R10.31 - Right lower quadrant pain Category: Medical (2) Diarrhea: Code(s): R19.7 - Diarrhea, unspecified Category: Medical (3) GERD (gastroesophageal reflux disease): Code(s): K21.9 - Gastro-esophageal reflux disease without esophagitis Category: Medical (4) IBS (irritable bowel syndrome): Code(s): K58.9 - Irritable bowel syndrome without diarrhea Category: Medical Plan She developed sudden onset RLQ pain 3 weeks ago. She has had a CT and an US that showed only, on US, ? of renal stone. The pain feels like someone id stabbing her with a knife and radiates to her back. The pain comes and goes, but will last hours when it starts, She can not ID any precipitating factors, and only is better with laying on her left side. The pain is worse when she urinates but is not worse with BM. She has been taking tylenol and motrin which only takes the edge off. The pain is 10/10. She continues on her dicyclomine, Colace, Lactaid tablets, and pantoprazole twice a day. I am afraid that she may have smoldering appendicitis since this can frequently be difficult to diagnose. I am going to try treating her with an antibiotic to see if it gets any better and I did let her know that if it gets severely where she should report to the ER that this can be a tricky thing to diagnose. Will also get a urinalysis to see if this any blood in the urine in any reason to suspect that she is passing kidney stone. Will give her some ibuprofen since this together with Tylenol should help her with the pain. Return office visit in 1 week given the mysterious and sudden onset of her pain. Orders: Orders UA CC w/rflx Micro + Cult 08/01/23 R10.31 - Right lower quadrant pain Medications: New metronidazole 500 mg PO TID 30 tabs 0RF 10 days ibuprofen 600 mg PO TID 90 tabs 0RF pain R10.31 - Right lower quadrant pain levofloxacin 500 mg PO DAILY 14 tabs 0RF R10.31 - Right lower quadrant pain Coding Level of Care Code Est Pt Level 3 (47978) Diagnoses RLQ abdominal pain R10.31 Diarrhea R19.7 GERD (gastroesophageal reflux disease) K21.9 IBS (irritable bowel syndrome) K58.9
[2023-08-01 15:32] VITALS: BP 151/57; PULSE 66; BMI 32.9
== END 2023-08-01 16:11 | disposition home or self-care (01) ==
PROVIDERS: PCP Nurse Practitioner Family; Visit Provider Nurse Practitioner
DX: R10.31 Right lower quadrant pain (principal); R19.7 Diarrhea, unspecified; K21.9 Gastro-esophageal reflux disease without esophagitis; K58.9 Irritable bowel syndrome, unspecified
CPT/HCPCS: 99213

== ENCOUNTER 2023-11-06 10:01 | Outpatient (AMB) | payer OTHER, SELFPAY ==
--- NOTE | 2023-11-06 10:14 | A.OFFVIS_ITS ---
Vital Signs 11/06/23 10:18 Height 5 ft 1 in Weight 181 lb 14.102 oz BMI 34.4 BP 134/78 Blood Pressure Location Rt brachial Position Sitting Pulse 96 Pulse Source Pulse Oximeter Pulse Oximetry (%) 95 Oxygen Delivery Method Room Air Intake Visit Reasons: PsA Intake Note: Patient presents for PsA. Allergies cephalexin Allergy (Intermediate, Verified 11/06/23 10:17) Diarrhea Iodinated Contrast Media [IV CONTRAST] Allergy (Intermediate, Verified 11/06/23 10:17) DIFF BREATHING morphine [MORPHINE] Allergy (Intermediate, Verified 11/06/23 10:17) HIVES nabumetone [NABUMETONE] Allergy (Intermediate, Verified 11/06/23 10:17) HIVES sulfamethoxazole [From BACTRIM] Allergy (Intermediate, Verified 11/06/23 10:17) HIVES trimethoprim [From BACTRIM] Allergy (Intermediate, Verified 11/06/23 10:17) HIVES dicloxacillin Allergy (Unknown, Verified 11/06/23 10:17) Rash dyclonine Allergy (Unknown, Verified 11/06/23 10:17) Unknown propranolol [Inderal LA] Allergy (Unknown, Verified 11/06/23 10:17) unknown quetiapine [Seroquel] Allergy (Unknown, Verified 11/06/23 10:17) rash seafood Allergy (Unknown, Verified 11/06/23 10:17) Unknown Sulfa (Sulfonamide Antibiotics) Allergy (Unknown, Verified 11/06/23 10:17) hives amoxicillin [From Augmentin] Allergy (Verified 11/06/23 10:17) stomach pain clavulanic acid [From Augmentin] Allergy (Verified 11/06/23 10:17) stomach pain polyethylene glycol [From Golytely] Adverse Reaction (Severe, Verified 11/06/23 10:17) Hallucinations polyethylene glycol 3350 [From Golytely] Adverse Reaction (Severe, Verified 11/06/23 10:17) Hallucinations potassium chloride [From Golytely] Adverse Reaction (Severe, Verified 11/06/23 10:17) Hallucinations sodium [From Golytely] Adverse Reaction (Severe, Verified 11/06/23 10:17) Hallucinations sodium bicarbonate [From Golytely] Adverse Reaction (Severe, Verified 11/06/23 10:17) Hallucinations sodium chloride [From Golytely] Adverse Reaction (Severe, Verified 11/06/23 10:17) Hallucinations sodium sulfate [From Golytely] Adverse Reaction (Severe, Verified 11/06/23 10:17) Hallucinations doxycycline [DOXYCYCLINE] Adverse Reaction (Intermediate, Verified 11/06/23 10:17) NAUSEA & VOMITTING From INDERAL Allergy (Intermediate, Uncoded 08/01/23 10:17) RASH Codeine Sulfate Allergy (Unknown, Uncoded 08/01/23 10:17) Unknown Medication List - Last Reconciled 11/06/23 by Nael Yang MD albuterol sulfate 90 mcg/actuation (Ventolin HFA) 2 puffs inhalation Q4H PRN aripiprazole 10 mg PO DAILY ascorbic acid (vitamin C) (Vitamin C) 500 mg PO DAILY carbamazepine ER (Tegretol XR) 400 mg PO BID cholecalciferol (vitamin D3) PO diclofenac sodium 1% 1 g topical QID PRN diclofenac sodium 75 mg PO BID PRN dicyclomine 10 mg PO Q6H PRN docusate sodium 100 mg PO BID epinastine 0.05% drps ophthalmic (eye) estradiol 1 mg PO DAILY fexofenadine 180 mg PO BID fluticasone propion-salmeterol 500-50 mcg/dose 1 ea inhalation BID folic acid 1 mg PO DAILY gabapentin 800 mg PO TID ibuprofen 600 mg PO TID lactase 3,000 - 6,000 units (1 - 2 x 3,000 unit) PO TIDAC PRN levofloxacin 500 mg PO DAILY lidocaine 5% 1 patch topical DAILY lisinopril 10 mg PO DAILY lorazepam 1 mg PO DAILY PRN meclizine 25 mg PO QID melatonin 9 mg PO BEDTIME metformin 500 mg PO BID methotrexate sodium 20 mg (8 x 2.5 mg) PO QWEEK metronidazole 500 mg PO TID 10 days montelukast (Singulair) 10 mg PO BEDTIME multivitamin 1 tab PO DAILY multivitamin with folic acid 400 mcg (Daily-Maikel (with folic acid)) 1 tab PO DAILY omalizumab (Xolair) mg subcut Q2W omalizumab (Xolair) mg subcut Q2W ondansetron 4 mg PO Q8H PRN pantoprazole 40 mg PO BID prazosin 4 mg PO BEDTIME prednisone Take 3 tabs daily for 1 week, 2 tabs daily for 1 week, 1 tab daily for 1 week then stop risperidone (Risperdal) 3 mg PO BID risperidone 4 mg PO BEDTIME sertraline 50 mg PO DAILY sumatriptan succinate 100 mg PO DAILY PRN Taltz Autoinjector (ixekizumab) 80 mg subcut Q4W NS topiramate 150 mg PO BID topiramate 50 mg PO BID trazodone mg PO umeclidinium 62.5 mcg/actuation (Incruse Ellipta) 1 inh inhalation DAILY valacyclovir 500 mg PO BID 7 days vitamin B complex (Vitamins B Complex capsule) 1 cap PO DAILY [wrist splint Wear nightly and as much as possible throughout the day] HPI Comments Details: 63-year-old female with psoriatic arthritis returns for follow-up. She is on methotrexate 20 mg weekly, Taltz injection every 4 weeks. She states that her left shoulder has not been doing well recently and she will be going for shoulder surgery sometime soon. She was also started on intravenous immunoglobulins by Allergy/immunology due to low immunoglobulins. She states that her 1st infusion would be tomorrow. She is having a rash under her right breast. She was prescribed a powder for it Initial history:This is a 61-year-old female with complex past medical history including asthma/COPD, anxiety, depression, migraines, lumbar spinal stenosis who presents for evaluation of diffuse joint pain. Patient has had bilateral knee pain for at least 6 years. She had numerous intra-articular steroid injections without any relief. She used to see Dr. Chance Christina as well as Dr. Mayorga at [facility] and was most recently following up with Dr. Lucero. Patient received prednisone in the past for her arthritis without any significant relief. Also the intra-articular steroid injections do not provide any relief. Over the last year she has been having pain of her knuckles, wrists, fingers associated with morning stiffness lasting 2 hours improved with moving her hands around. Continues to have chronic knee pain that is unchanged. She stated that her older sister was diagnosed with rheumatoid arthritis. She was just recently started on prednisone 20 mg Twice daily for asthma attack. She stated that prednisone does not significantly improve her joint pain [facility] Medical History Spinal stenosis TMJ (dislocation of temporomandibular joint) Migraine COPD (chronic obstructive pulmonary disease) Asthma Depression Anxiety Prediabetes Arthritis of right knee Umbilical hernia Chronic idiopathic constipation Surgical History History of carpal tunnel release Hx of colonoscopy History of esophagogastroduodenoscopy (EGD) Hx of hand surgery H/O eye surgery Hx of hysterectomy Family History Father Bone cancer Mother Diabetes Family/Other Family history of breast cancer Social History Household Members: None Housing: Apartment Do you presently have visiting nurse or other home services: Yes (nursing once a week, home health aid 4x week) Alcohol intake: current Alcohol intake frequency: does not drink Patient Tobacco Use Status: Former Tobacco user service: No Review of Systems Musc Reports arthralgias and Reports limited range of motion Skin/Breast Reports rash Physical Exam Vital Signs: Last Vital Signs Pulse 96 11/06/23 10:18 BP 134/78 11/06/23 10:18 Pulse Ox 95 11/06/23 10:18 Oxygen Delivery Method Room Air 11/06/23 10:18 BMI result Body Mass Index 34.4 Const General: cooperative and no acute distress Nutritional Appearance: obese morbidly obese Limitations: ambulation with walker HEENT Head: Yes normocephalic and Yes atraumatic Resp Effort & Inspection: normal respiratory effort and able to speak in complete se ntences Skin Other: Rash under right breast consistent with candidal intertrigo Extrem Other: Normal range of motion of right shoulder without pain Significantly limited left range of motion. Right hand, wrists, elbows without synovitis No elbow pain with flexion-extension bilaterally No swollen joints Mild right knee pain with full flexion Results Reviewed Results Reviewed: Right hand/ wrist MSK ultrasound 03/06? Impression:? Mild tenosynovitis of the 2nd extensor compartment Assessment & Plan Assessment & Plan (1) Psoriatic arthritis: Comment: dx 03/06 Right thumb dactylitis 06/04 MTX started 07/04 effective Humira added 11/04 DC 12/04 due to pneumonia admission Lars 02/2023 effective Code(s): L40.50 - Arthropathic psoriasis, unspecified Category: Medical Plan: This is a 63-year-old female with psoriatic arthritis who presents for follow- up. On methotrexate 20 mg weekly, folic acid 1 mg daily and Taltz 80 mg q.4 weeks Patient is doing quite well overall. There is no active synovitis on exam. She states that she was recently started on IVIG by Allergy/immunology. 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
[2023-11-06 10:18] VITALS: BP 134/78; PULSE 96; O2SAT 95; BMI 34.4
== END 2023-11-06 11:02 | disposition home or self-care (01) ==
PROVIDERS: PCP Nurse Practitioner Family; Visit Provider Student in an Organized Health Care Education/Training Program
DX: L40.50 Arthropathic psoriasis, unspecified (principal); Z79.631 Long term (current) use of antimetabolite agent
CPT/HCPCS: 99214

== ENCOUNTER → 2023-11-06 10:01 | Outpatient (BNVA) | payer OTHER, SELFPAY | PROVIDERS: PCP Nurse Practitioner Family; Visit Provider Student in an Organized Health Care Education/Training Program | DX: L40.50 Arthropathic psoriasis, unspecified (principal); Z79.631 Long term (current) use of antimetabolite agent | CPT/HCPCS: 99212 ==

== ENCOUNTER 2024-03-10 13:14 | Outpatient (AMB) | payer OTHER, SELFPAY ==
--- NOTE | 2024-03-10 13:18 | MHC.OFFVIS ---
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 Allergies cephalexin Allergy (Intermediate, Verified 03/10/24 13:25) Diarrhea Iodinated Contrast Media [IV CONTRAST] Allergy (Intermediate, Verified 03/10/24 13:25) DIFF BREATHING morphine [MORPHINE] Allergy (Intermediate, Verified 03/10/24 13:25) HIVES nabumetone [NABUMETONE] Allergy (Intermediate, Verified 03/10/24 13:25) HIVES sulfamethoxazole [From BACTRIM] Allergy (Intermediate, Verified 03/10/24 13:25) HIVES trimethoprim [From BACTRIM] Allergy (Intermediate, Verified 03/10/24 13:25) HIVES dicloxacillin Allergy (Unknown, Verified 03/10/24 13:25) Rash dyclonine Allergy (Unknown, Verified 03/10/24 13:25) Unknown propranolol [Inderal LA] Allergy (Unknown, Verified 03/10/24 13:25) unknown quetiapine [Seroquel] Allergy (Unknown, Verified 03/10/24 13:25) rash seafood Allergy (Unknown, Verified 03/10/24 13:25) Unknown Sulfa (Sulfonamide Antibiotics) Allergy (Unknown, Verified 03/10/24 13:25) hives amoxicillin [From Augmentin] Allergy (Verified 03/10/24 13:25) stomach pain clavulanic acid [From Augmentin] Allergy (Verified 03/10/24 13:25) stomach pain polyethylene glycol [From Golytely] Adverse Reaction (Severe, Verified 03/10/24 13:25) Hallucinations polyethylene glycol 3350 [From Golytely] Adverse Reaction (Severe, Verified 03/10/24 13:25) Hallucinations potassium chloride [From Golytely] Adverse Reaction (Severe, Verified 03/10/24 13:25) Hallucinations sodium [From Golytely] Adverse Reaction (Severe, Verified 03/10/24 13:25) Hallucinations sodium bicarbonate [From Golytely] Adverse Reaction (Severe, Verified 03/10/24 13:25) Hallucinations sodium chloride [From Golytely] Adverse Reaction (Severe, Verified 03/10/24 13:25) Hallucinations sodium sulfate [From Golytely] Adverse Reaction (Severe, Verified 03/10/24 13:25) Hallucinations doxycycline [DOXYCYCLINE] Adverse Reaction (Intermediate, Verified 03/10/24 13:25) NAUSEA & VOMITTING From INDERAL Allergy (Intermediate, Uncoded 08/01/23 10:17) RASH Codeine Sulfate Allergy (Unknown, Uncoded 08/01/23 10:17) Unknown HPI HPI Lateral epicondylitis, left elbow: Details: Patient is a 63 years old female with history of arthritis, spinal stenosis, anxiety and depression, recent left shoulder surgery 01/2024 at [facility], right carpal tunnel release 09/2022, COPD, asthma, presents today for initial evaluation of left elbow pain and left shoulder pain. She was referred to our office by [facility]. Patient reports cortisone injections are no longer effective and she is interested in alternative treatment options. She resides in [facility] and is accompanied by [facility] [facility] staff. Patient reports global left shoulder and elbow pain with localized tenderness to anterior and posterior aspects of shoulder and lateral aspect of elbow without any swelling, redness or warmth. Pain affects her daily activities and functioning, mood, sleep, social interactions and quality of life. Denies any neck pain, fever or chills, dizziness, chest pain, shortness of breath, numbness or tingling, bladder or bowel dysfunction or saddle anesthesia. Location: Left shoulder and left elbow Duration: Chronic pain >1 year, recent left shoulder surgery at [facility] Characteristics of symptom or complaint: aching, sharp, dull,tingling Aggravating or associated factors: Movements, ROM, lifting, pulling, overhead reaches, cold weather Relieving factors: Rest, avoiding using left arm, elevation, Tylenol, NSAID, gabapentin Treatment: Injections at Orthopedics, recent left shoulder surgery at [facility] Medical History (Updated 03/10/24 @ 13:57 by WINSTON Peterson) Spinal stenosis TMJ (dislocation of temporomandibular joint) Migraine COPD (chronic obstructive pulmonary disease) Asthma Depression Anxiety Prediabetes Arthritis of right knee Umbilical hernia Chronic idiopathic constipation Surgical History (Updated 03/10/24 @ 13:57 by WINSTON Peterson) History of shoulder surgery (~01/2024) History of carpal tunnel release Hx of colonoscopy History of esophagogastroduodenoscopy (EGD) Hx of hand surgery H/O eye surgery Hx of hysterectomy Family History Father Bone cancer Mother Diabetes Family/Other Family history of breast cancer Social History Household Members: None Housing: Apartment Do you presently have visiting nurse or other home services: Yes (nursing once a week, home health aid 4x week) Alcohol intake: current Alcohol intake frequency: does not drink Patient Tobacco Use Status: Former Tobacco user service: No Review of Systems Const All systems reviewed & are unremarkable except as noted in HPI and below Physical Exam Vital Signs: Last Vital Signs Pulse 70 03/10/24 13:26 BP 145/64 H 03/10/24 13:26 BMI result Body Mass Index 33.3 General: Appears afebrile. Alert and oriented. Mood and affect appropriate. Follows and participates in conversation appropriately. Respiratory effort is unlabored. No cough. Able to transition from sit to stand unassisted. Uses walker with seat for ambulation. Ambulates with bilaterally normal heel strike and toe off. Extrem General: Yes capillary refill normal, Yes no clubbing, cyanosis or edema and Yes no calf tenderness Left upper extremity: shoulder/upper arm (Limited ROM, increased pain with internal rotation. Limited overhead reach) Details: inspection abnormal, tenderness (global left shoulder) and other (well healed scars); no swelling, no ecchymosis, no crepitus and no unsual warmth and elbow/forearm Details: normal to inspection, tenderness Location: of the lateral epicondyle and of the medial epicondyle, normal ROM, distal pulses intact and other; no swelling, no unusual warmth, no ecchymosis and no crepitus Results Reviewed Results Reviewed: XR ELBOW, LEFT 03/12/23 CLINICAL INFORMATION: Pain in unspecified elbow. COMPARISON: None available. TECHNIQUE: AP, lateral, and oblique views of the left elbow. FINDINGS: Small rounded calcifications in the superficial soft tissues. Alignment preserved. Mild spurring along the dorsal aspect of the olecranon. Mild degenerative changes with spurring along the ventral aspect of the elbow. No significant joint effusion. IMPRESSION: 1. Mild degenerative changes. 2. Recommend follow up images in 10-14 days if fracture is suspected. Assessment & Plan Assessment & Plan (1) Left tennis elbow: Code(s): M77.12 - Lateral epicondylitis, left elbow Category: Medical (2) Left shoulder pain: Code(s): M25.512 - Pain in left shoulder Category: Medical (3) History of shoulder surgery: Onset Date: ~01/2024 Code(s): Z98.890 - Other specified postprocedural states Category: Surgical Plan Discussed interventional treatments for left shoulder and elbow chronic pain with recent history of left shoulder surgery at [facility]. We will request left shoulder imaging and surgical report. Schedule Diagnostic Left suprascapular/axillary and lateral pectoral nerve blocks with local and US guidance for potential RFA or Sprint PNS trial. Expectations, risks and benefits were reviewed with patient and her [employer]OR. Patient is aware she will be contacted to schedule this procedure. All questions were answered and the patient is in agreement of plan. Follow-up after injections and sooner as needed. Coding Level of Care Code New Pt Level 4 (28006) Complex EM visit Add On G2211 Diagnoses Left tennis elbow M77.12 Left shoulder pain M25.512 History of shoulder surgery Z98.890
[2024-03-10 13:26] VITALS: BP 145/64; PULSE 70; BMI 33.3
--- OUTSIDE RECORDS SUMMARY | 2024-03-10 17:57 | XMS_ITS | Continuity of Care Document ---
Author Organization [facility] [place] [facility] - [facility] Address [address] [place] [phone] Care Team Providers Care Journeyman Glazier Name Role Phone HIM CCA OTHER Assessment Encounter Date Assessment Date Assessment LastModified by Organization Details LastModified Time 02/10/2024 02/10/2024 I provided real -time medical direction via phone for this encounter and was available for additional phone-based assistance as needed. I have reviewed and agree with the Assessment and Plan as documented by the T[employer]ot Knitter. Patient given the opportunity to ask questions. Our service contacted for an assessment of: abd pain As per above, patient not feeling well for several days. States everyone is sick in the building. Denies F/C/CP/SOB/CONDON. C/o some URI and urinary symptoms however does not endorse any flank, suprapubic pain, frequency, urgency, N/V/diarrhea, or constipation. Eating and drinking normally. Per quill cleaning machine operator on the scene, VSS, AF. Non-focal exam. Abd is soft, BS+ COVID, Flu are both negative. U/A is rather bland for a UTI. Impression: ? viral syndrome. vs cystitis - Plan: Take Tylenol prn. Monitor and observe symptoms. Check urine culture. Red flags discussed Allergies: Reviewed PCP f/u: We discussed the diagnostic uncertainty of home visits and the risk associated with this. In this case, the patient and I felt this to be an acceptable and reasonable amount of risk given the benefit of avoiding an ED visit. We discussed the need to seek care urgently/emerge ntly in the setting of any new or worsening serious symptoms, particularly fever chills [email or web address] Not available 02/11/2024 09:20:48 Plan of Treatment Reminders Order Date Submit Date Provider Last Modified By Organization Details Last Modified Time Details Appointments None recorded. Lab culture, urine 2023 024 [facility], [address] [place] [place], [address], 4 18:05:32 urinalysis , dipstick [address] [facility], [address] [place] [address], [phone], 4 19:59:34 Referral None recorded. Procedures None recorded. Surgeries None recorded. Imaging None recorded. Medication Orders None recorded. Patient TargetsNo targets recorded. Patient InstructionsNo instructions recorded. Reason for Referral None Reported. Results Created Date Observation Date Name Description Value Unit Range Abnormal Flag Note LastModifiedBy Organization Detail LastModifiedTime Result Notes None recorded. Medical Equipment None Reported. Allergies Allergen ID Allergen Name Allergen Category Reaction Reaction Severity Criticality Documentation Date Start Date Code Code System Note Provider Name and Address Organization Details Recorded Time 2117 aspirin medicatio n Not available Not available Not available 04/30/2022 1191 RxNorm Not Available [facility] - [facility] 4 03:41:14 2118 morphine medicatio n Not available Not available Not available 04/30/2022 7052 RxNorm Not Available [facility] - production 4 03:41:14 2120 Augmentin medicatio n diarrhea Not available low 04/30/2022 24843 2 RxNorm GAURAV DHILLON MD [address] [place] [address],[address], [place], [phone], [place] 4 09:58:09 4312 Bactrim medicatio n Not available Not available Not available 02/20/2023 17158 9 RxNorm Not Available [facility] - production 4 03:41:14 4313 sulfameth oxazole / trimethop rim medicatio n Not available Not available Not available 02/20/2023 33001 RxNorm Marita Ramos MD [address] [place] [address],[address], [place], [phone], [facility] 4 14:13:42 4314 doxycycli ne Not available Not available Not available Not available 02/20/2023 3640 RxNorm Not Available [facility] - production 03:41:14 5895 Seroquel medicatio n Not available Not available Not available 09/30/2023 57333 RxNofrankie DHILLON MD [address] [place] [address],[address], [place], [address], [place] 4 18:08:17 5896 fluoxetin e medicatio n Not available Not available Not available 09/30/2023 4493 RxQue DHILLON MD [address] [place] [address],[address], [place], [address], [place] 18:08:31 5897 nabumeton e medicatio n Not available Not available Not available 09/30/2023 68996 Mitch DHILLON MD [address] [place] [address],[address], [place], [address], [place] 18:08:46 5898 propranol ol medicatio n Not available Not available Not available 09/30/2023 8787 RxQue DHILLON MD [address] [place] [address],[address], [place], [address], [place] 18:09:03 7995 Product containin g penicilli n and antibioti c (product) medicatio n Not available Not available Not available 12/11/2023 56833 05 SNOMED Not Available [facility] - production 03:41:14 Medications Name Sig Start Date Stop Date Status Note LastModified by Organization Details LastModified Time Prescription - Renewal active Not Available Not Available No t Available cod liver cap active Not Available Not Available Not Available multivitamin tablet active Not Available Not Available Not Available ketorolac 15 mg/mL injection solution Inject 15 mg by intramuscul ar route for 1 day. 2023 active Not Available Not Available Not Avai lable cyclobenzapr ine 10 mg tablet TAKE 1 TO 2 TABLETS BY MOUTH TWICE DAILY FOR PAIN. MAX 4 TABLETS DAILY active Not Available Not Available No t Available amoxicillin 500 mg capsule active Not Available Not Available Not Available metformin 500 mg tablet active Not Available Not Available Not Available Sore Throat (phenol) 1.4 % aerosol spray 1-2 sprays on throat every 6 hours as needed for sore throat 2022 active Not Available Not Available Not Avai lable clonidine HCl 0.1 mg tablet active Not Available Not Available Not Available acetaminophe n 325 mg tablet Take 2 tablets every 6 hours by oral route for 10 days. active Not Available Not Available No t Available prednisone 10 mg tablet 4 TABS ORALLY DAILY X4 DAYS, 2 TABS X2 DAYS,THEN 1 TAB X2 DAYS,THEN 1/2 TAB X2 DAYS.TAKE W/BREAKFAST active Not Available Not Available Not Available gabapentin 600 mg tablet active Not Available Not Available Not Available benztropine 0.5 mg tablet active Not Available Not Available Not Available ropinirole 1 mg tablet active Not Available Not Available No t Available ipratropium 0.5 mg-albuterol 3 mg (2.5 mg base)/3 mL nebulization soln 3 ml unid ose neb x 1 2022 active Not Available Not Available Not Avai lable clindamycin HCl 300 mg capsule active Not Available Not Available Not Available albuterol sulfate 2.5 mg/3 mL (0.083 %) solution for nebulization active Not Available Not Available Not Available Vitamin C 500 mg tablet active Not Available Not Available Not Available trazodone 50 mg tablet active Not Available Not Available No t Available cefpodoxime 200 mg tablet Take 1 tablet every 12 hours by oral route for 6 days. active Not Available Not Available Not Available azithromycin 250 mg tablet TAKE 1 TABLET BY MOUTH ONCE DAILY FOR 4 DAYS AT SAME TIME EACH DAY WITH FOOD active Not Available Not Available No t Available ibuprofen 800 mg tablet active Not Available Not Available Not Available fluconazole 150 mg tablet Take 1 tablet by oral route for 1 day. active Not Available Not Available N ot Available benzonatate 200 mg capsule TAKE 1 CAPSULE BY MOUTH THREE TIMES A DAY NEEDED FOR COUGH *NOT COVERED* active Not Available Not Available No t Available risperidone 4 mg tablet active Not Available Not Available Not Available sumatriptan 100 mg tablet TAKE 1 TAB DAILY NEEDED FOR MIGRAINE HEADACHE.MA Y REPEAT AFTER 2 HRS IF NEEDED.MAX 2 TABS/DAY active Not Available Not Available N ot Available hydrocodone 5 mg-acetamino phen 325 mg tablet active Not Available Not Available Not Available Nystop 100,000 unit/gram topical powder active Not Available Not Available Not Available sucralfate 100 mg/mL oral suspension active Not Available Not Available N ot Available FreeStyle Lancets 28 gauge USE TWICE DAILY DIRECTED FOR MONITORING GLUCOSE, DX CODE E11.9 active Not Available Not Available N ot Available famotidine 40 mg tablet active Not Available Not Available Not Available prednisone 20 mg tablet 2 tablets now active Not Available Not Available No t Available prednisone 5 mg tablet PLEASE SEE ATTACHED FOR DETAILED DIRECTIONS active Not Available Not Available N ot Available metronidazol e 250 mg tablet TAKE 1 TABLET BY MOUTH EVERY 8 HOURS FOR 10 DAYS active Not Available Not Available No t Available Pyridium 200 mg tablet Take 1 tablet 3 times a day by oral route for 2 days. 2023 active Not Available Not Available Not Avai lable naproxen 250 mg tablet TAKE 1 TABLET TWICE A DAY BY ORAL ROUTE NEEDED. active Not Available Not Available No t Available metronidazol e 500 mg tablet active Not Available Not Available Not Available melatonin 3 mg tablet active Not Available Not Available No t Available fexofenadine 180 mg tablet active Not Available Not Available Not Available ciprofloxaci n 250 mg tablet Take 1 tablet twice a day by oral route for 5 days. active Not Available Not Available No t Available aspirin 81 mg tablet,delay ed release active Not Available Not Available N ot Available tramadol 50 mg tablet TAKE 1 TABLET BY MOUTH TWICE DAILY NEEDED active Not Available Not Available No t Available acetaminophe n 500 mg tablet TAKE 1 TO 2 TABLETS BY MOUTH EVERY 6 HOURS NEEDED FOR PAIN. NO MORE THAN 6 TABLETS DAILY active Not Available Not Available No t Available risperidone 3 mg tablet active Not Available Not Available Not Available Sudogest 30 mg tablet active Not Available Not Available No t Available ketorolac 30 mg/mL (1 mL) injection solution 30 mg IM x 1 2022 active Not Available Not Available Not Avai lable pantoprazole 20 mg tablet,delay ed release active Not Available Not Available N ot Available Vitamin C 250 mg chewable tablet active Not Available Not Available Not Available carbamazepin e ER 400 mg tablet,exten ded release,12 hr active Not Available Not Available Not Available meloxicam 7.5 mg tablet TAKE 1 TABLET BY MOUTH TWICE DAILY FOR 14 DAYS. active Not Available Not Available No t Available oxycodone-ac etaminophen 5 mg-325 mg tablet active Not Available Not Available Not Available terbinafine HCl 250 mg tablet active Not Available Not Available Not Available ceftriaxone 1 gram solution for injection Take 1 g by injection route for 1 day. 2023 active Not Available Not Available Not Avai lable ofloxacin 0.3 % ear drops INSTILL 5 DROPS BY EACH EAR ROUTE 2 TIMES A DAY FOR 7 DAYS. active Not Available Not Available Not Available estradiol 1 mg tablet active Not Available Not Available No t Available methotrexate sodium 2.5 mg tablet active Not Available Not Available No t Available gabapentin 800 mg tablet active Not Available Not Available Not Available ropinirole 0.25 mg tablet active Not Available Not Available Not Available dicyclomine 20 mg tablet TAKE 1 TAB ORALLY 3 TIMES A DAY active Not Available Not Available Not Available meclizine 25 mg tablet active Not Available Not Available No t Available ascorbic acid (vitamin C) 250 mg tablet active Not Available Not Available Not Available phenazopyrid ine 100 mg tablet TAKE 1 TABLET 3 TIMES A DAY NEEDED FOR 2 DAYS. active Not Available Not Available Not Available cephalexin 500 mg capsule TAKE 1 CAPSULE BY MOUTH THREE TIMES A DAY FOR 3 DAYS active Not Available Not Available N ot Available methylpredni solone 8 mg tablet active Not Available Not Available Not Available pantoprazole 40 mg tablet,delay ed release active Not Available Not Available N ot Available triamcinolon e acetonide 0.1 % topical ointment active Not Available Not Available Not Available ropinirole 0.5 mg tablet active Not Available Not Available Not Available olopatadine 0.1 % eye drops active Not Available Not Available Not Available lisinopril 10 mg tablet active Not Available Not Available Not Available lidocaine 5 % topical patch active Not Available Not Available Not Available fluticasone 500 mcg-salmeter ol 50 mcg/dose blistr powdr for inhalation active Not Available Not Available N ot Available oxycodone 5 mg capsule TAKE 1 CAPSULE BY MOUTH EVERY 6 HOURS NEEDED FOR MODERATE PAIN active Not Available Not Available No t Available ibuprofen 400 mg tablet active Not Available Not Available Not Available benztropine 1 mg tablet active Not Available Not Available Not Available nystatin-tri amcinolone 100,000 unit/g-0.1 % topical cream APPLY TO THE AFFECTED AREA(S) BY TOPICAL ROUTE 2 TIMES PER DAY IN THE MORNING AND EVENING active Not Available Not Available No t Available ibuprofen 200 mg tablet 600 mg po 2022 active Not Available Not Available Not Avai lable Gas Relief Extra Strength 125 mg capsule active Not Available Not Available N ot Available docusate sodium 100 mg capsule active Not Available Not Available N ot Available gabapentin 300 mg capsule active Not Available Not Available Not Available lidocaine HCl 2 % mucosal solution active Not Available Not Available Not Available diclofenac sodium 75 mg tablet,delay ed release active Not Available Not Available N ot Available folic acid 1 mg tablet active Not Available Not Available No t Available hydrocortiso ne 2.5 % topical cream APPLY A THIN LAYER TO THE FOREARM RASH BY TOPICAL ROUTE 2 TIMES PER DAY FOR 2 WEEKS MAX active Not Available Not Available No t Available montelukast 10 mg tablet active Not Available Not Available Not Available Dairy-Aid 3,000 unit tablet TAKE ONE TABLET BY MOUTH WHEN FIRST BITE OF DAIRY-CONTA INING FOOD ONCE DAILY active Not Available Not Available N ot Available mupirocin 2 % topical ointment APPLY TO AFFECTED AREA 3 TIMES A DAY active Not Available Not Available Not Available lorazepam 1 mg tablet active Not Available Not Available No t Available hydroxychlor oquine 200 mg tablet active Not Available Not Available No t Available epinephrine 0.3 mg/0.3 mL injection, auto-injecto r active Not Available Not Available Not Available ibuprofen 600 mg tablet Take 1 tablet every 6-8 hours as needed for pain with food active Not Available Not Available No t Available cefuroxime axetil 500 mg tablet active Not Available Not Available No t Available levofloxacin 500 mg tablet Take 1 tablet every 24 hours by oral route for 6 days. active Not Available Not Available Not Available levofloxacin 750 mg tablet Take 1 tablet every day by oral route for 7 days. active Not Available Not Available No t Available methylpredni solone 4 mg tablets in a dose pack active Not Available Not Available No t Available albuterol sulfate HFA 90 mcg/actuatio n aerosol inhaler INHALE 2 PUFFS BY MOUTH EVERY 4 HOURS NEEDED active Not Available Not Available No t Available ketorolac 60 mg/2 mL intramuscula r solution Inject 0.5 mL every 6 hours by intramuscul ar route. 2021 active Not Available Not Available Not Avai lable celecoxib 100 mg capsule Take 1 tab PO daily as needed for severe pain, continue other pain meds as well 2022 active Not Available Not Available Not Avai lable ketoconazole 2 % topical cream APPLY TO THE AFFECTED AREA(S) BY TOPICAL ROUTE ONCE DAILY active Not Available Not Available No t Available ondansetron 4 mg disintegrati ng tablet TAKE 1 TAB ORALLY EVERY 8 HOURS NEEDED FOR NAUSEA AND VOMITING active Not Available Not Available No t Available topiramate 100 mg tablet active Not Available Not Available Not Available fluticasone propionate 50 mcg/actuatio n nasal spray,suspen zoe [place] 1 spray every day by intranasal route. active Not Available Not Available No t Available sertraline 50 mg tablet active Not Available Not Available Not Available dicyclomine 10 mg capsule active Not Available Not Available Not Available prazosin 2 mg capsule active Not Available Not Available N ot Available mometasone 0.1 % topical cream active Not Available Not Available Not Available vitamin B complex capsule active Not Available Not Available Not Available oxycodone 5 mg tablet TAKE 1 TABLET BY MOUTH TONIGHT AT BEDTIME active Not Available Not Available No t Available neomycin-juliet ymyxin-hydro callum 3.5 mg-10,000 unit/mL-1 % ear drops,susp SHAKE LIQUID AND INSTILL 4 DROPS TO AFFECTED EAR THREE TIMES DAILY active Not Available Not Available Not Available Arthritis Pain Relief (capsaicin) 0.075 % topical cream active Not Available Not Available Not Available Mucinex 600 mg tablet, extended release Take 1 tablet every 12 hours by oral route. 2023 active Not Available Not Available Not Avai lable azithromycin 500 mg tablet TAKE 1 TABLET BY MOUTH EVERY DAY FOR 5 DAYS active Not Available Not Available No t Available Saline Nasal 0.65 % spray aerosol active Not Available Not Available Not Available aripiprazole 10 mg tablet active Not Available Not Available Not Available aripiprazole 15 mg tablet active Not Available Not Available Not Available Arthritis Pain Relief (acetaminoph en) ER 650 mg tablet,exten d release Take 1 tablet 6 times a day by oral route as needed. active Not Available Not Available No t Available cyclobenzapr ine 5 mg tablet TAKE 1 TO 2 TABLETS BY MOUTH DAILY FOR 7 DAYS FOR JAW PAIN OR MUSCLE SPASM active Not Available Not Available No t Available Xolair 150 mg subcutaneous solution active Not Available Not Available Not Available aripiprazole 5 mg tablet active Not Available Not Available Not Available Alcohol Prep Pads USE TWICE DAILY DIRECTED FOR MONITORING GLUCOSE, DX CODE E11.9 active Not Available Not Available N ot Available epinastine 0.05 % eye drops active Not Available Not Available Not Available topiramate 50 mg tablet active Not Available Not Available Not Available nitrofuranto in monohydrate/ macrocrystal s 100 mg capsule Take 1 capsule every 12 hours by oral route for 7 days. active Not Available Not Available Not Available Flovent HFA 220 mcg/actuatio n aerosol inhaler active Not Available Not Available Not Available risperidone 3 mg disintegrati ng tablet active Not Available Not Available No t Available cholecalcife rol (vitamin D3) 25 mcg (1,000 unit) tablet active Not Available Not Available Not Available FreeStyle Lite Meter kit USE TWICE DAILY DIRECTED FOR MONITORING GLUCOSE, DX CODE E11.9 active Not Available Not Available N ot Available FreeStyle Lite Strips USE TWICE DAILY DIRECTED FOR MONITORING GLUCOSE, DX CODE E11.9 active Not Available Not Available N ot Available FeroSul 325 mg (65 mg iron) tablet active Not Available Not Available Not Available diclofenac 1 % topical gel APPLY 2 GRAMS TO THE AFFECTED AREA(S) BY TOPICAL ROUTE 4 TIMES PER DAY 2023 active Not Available Not Available Not Avai lable GaviLyte-G 236 gram-22.74 gram-6.74 gram-5.86 gram oral solution active Not Available Not Available Not Available Creon 24,000-76,00 0-120,000 unit capsule,felicia yed release active Not Available Not Available Not Available ketorolac 30 mg/mL injection solution Inject 1 mL by intravenous route. 2023 active Not Available Not Available Not Avai lable Banophen 50 mg capsule active Not Available Not Available N ot Available lidocaine 5 % topical ointment active Not Available Not Available Not Available Antifungal (miconazole) 2 % topical powder active Not Available Not Available Not Available Incruse Ellipta 62.5 mcg/actuatio n powder for inhalation active Not Available Not Available N ot Available Taltz Autoinjector 80 mg/mL subcutaneous active Not Available Not Available Not Available Clenpiq 10 mg-3.5 gram-12 gram/160 mL oral solution active Not Available Not Available Not Available Humira(CF) Pen 40 mg/0.4 mL subcutaneous kit active Not Available Not Available Not Available Xolair 75 mg/0.5 mL subcutaneous syringe active Not Available Not Available Not Available Xolair 150 mg/mL subcutaneous syringe active Not Available Not Available Not Available Tab-A-Maikel 400 mcg tablet active Not Available Not Available Not Available Sutab 1.479-0.188- 0.225 gram tablet active Not Available Not Available Not Available QuickVue At-Home COVID-19 Test kit active Not Available Not Available Not Available Vitals Date Recorded Body temperature Body weight Respiratory rate Body height Oxygen saturation Oxygen saturation in Arterial blood by Pulse oximetry Heart rate Systolic blood pressure Diastolic blood pressure Provider Name and Address Organization Details Last Updated DateTime 4 98.2 [degF] 09306.1 92 g 18 /min 154.94 cm 99 % 99 % 68 /min 131 mm[Hg] 72 mm[Hg] Not Available [facility] - production 4 17:37:44 Social History None recorded. Functional Status None recorded. Mental Status None recorded. Family History Nothing Reported. Medical History No medical history recorded. Gynecological HistoryNo gynecological history recorded. Obstetrics History GPAL:G 0 P 0 0 0 0 Past Encounters Encounter ID Performer Location Encounter Start Date Encounter Closed Date Diagnosis/Indication Diagnosis SNOMED-CT Code Diagnosis ICD10 Code Diagnosis Note [id number] Wes Regan MD [facility] [address] [place] [phone] 01/16/2024 19:06:51 01/17/2024 08:57:49 History of operative procedure on shoulder 342697880 Z98.890 [id number] Luis Cutler MD [facility] [address] [place] [phone] 01/20/2024 18:38:49 01/20/2024 21:54:58 Shoulder pain 25796646 M25.519 As noted, we were called to see this patient regarding concerns of severe shoulder pain apparently due to an injury in a sensitive recently post-op patient. Evaluation in the field was performed by my quill cleaning machine operator colleague, as noted above, I provided real-time direction and supervisio n for this visit. Impression :Severe shoulder pain, refractory to OTC APAP Plan:IV or IM ketorolac 30 mg [id number] Marita Ramos MD [facility] [address] [place] [phone] 02/10/2024 17:37:40 02/12/2024 21:08:43 Urinary symptoms 870209794 R39.9 Health Concerns Section Related Observation LastModified by Organization Detai ls LastModified Time None Recorded Concern Status LastModified by Organization Details LastModified Time None Recorded Payers Encounter Date Sequence Insurance Name Policy Number Policy Valdez Covered Member ID Valdez Member ID Guarantor Name 02/10/2024 1 [facility] - DOS ON OR AFTER 2022 - DUAL ELIGIBLE - CUSTODIAL OPTIONS AND ONE CARE (MEDICARE REPLACEMENT/ADV ANTAGE - HMO) Elizabeth Huang [id number] Elizabeth Huang Notes Date Note Type Note Provider Name and Address Organization Details Recorded Time 02/10/2024 text/html [facility] Nurse Triage Notes (Alberto Morocho - RN): Patient Reports: Painful urination; Frequent and increased urination with flank pain; Painful urination with or without fever; Inability to fully empty bladderDenies: Unable to void greater than 5 hours Fall or trauma that results in urinary incontinence in the setting of pain Fall or injury that results in incontinence in the absence of pain Lower back pain either unilateral or bilateral, unable to void, painful urination -hematuria Chief Complaints: Abdominal painPMH: COPD/Asthma, Severe Persistent Mental Illness (SPMI), HypertensionComments : Package Car Driver verified the Pt.'s name//address and phone number. Education provided on the response time and the Pt. was advised to monitor reported s/s and seek emergency treatment if needed. Pt reports feeling unwell with urinary symptoms - Increased urgency, frequency and burning - Bladder pain - Pain is 10/10 - Urine is yellow with an odor - S/S started this AM - Denies N/V - Reports able to obtain temp. Concerns expressed - ER treatment declined. [employer]itter Organization Information for Cheyanne Wilson Cinda MING Legal Name: [employer]? Address: [address] [place] [address], Veterinary Virus Serum Inspector: Burton Kruse MD CLIA No.: [id number] [employer] POC Test Results from Cheyanne Wilson - [facility]ING Urine Dipstick (17:32:44) Urine leukocytes: 15+- MOHAMUD Urine nitrites: - NIT Urine urobilinogen: 0.2 3.5 URO Urine protein: - PRO Urine pH: 6.0 pH Urine blood: - BLO Urine specific gravity: 1.015 SG Urine ketones: - KET Urine bilirubin: - DENY Urine glucose: - GLU Attachments uploaded as part of this test result can be found under Documents section. Rapid COVID antigen (17:40:51) COVID: - Rapid influenza antigen (17:40:53) Flu: - MIH makes pt contact after walking through the door to her small and cluttered apartment. She is sitting at her table just inside the door w/ her head resting in her L hand, elbow resting on the table. She is conscious and alert and turns her head and greets [facility]. She is not in acute distress, no stridor or sonorous respirations are heard. No facial droop, slurred speech, or one-sided weakness are noted and she is not bleeding anywhere. She is wiggling around in her chair and is c/o alvarez and body aches, but is denying fever/chills. Pt endorses two days of abdominal discomfort, back pain, and painful urination. She says she has a hx of UTI, but is unable to recount if her current symptoms are consistent w/ previous incidents. She is denying cp, sob, vomiting, or diarrhea. She endorses nausea yesterday, but non today. She also says everyone in the building is sick. She requests to be tested for COVID and flu and consents to evaluation today. [facility] obtains vital signs and assesses pt. Nothing remarkable is noted upon inspection other than some mild tenderness to her lower abd quadrants w/ palpation. Pt is provided w/ castile soap and urinary hat for clean urine catch. Sample is obtained for culture and dip stick analysis is performed. [facility] contacts [facility] to discuss the above findings. [facility] orders a urine culture and advises pt monitor and treat the symptoms she has w/ supportive care until the culture comes back. [facility] advises pt to keep herself hydrated and continue w/ her OTC pain reliever. Pt is advised of red flags such as high fever, ams, syncope, and uncontrollable n/v/d, which should indicate to her she needs to call 911. Pt thanks [facility] for coming. [facility] is clear. Report completed by ROULA Wilson [id number]. Marita Ramos MD [address], [place], [address], [employer] 02/11/2024 09:20:58 OBGyn Episode No OBEpisode recorded.
--- OUTSIDE RECORDS SUMMARY | 2024-03-10 17:57 | XMS_ITS | Continuity of Care Document ---
Author Organization [facility] [place] [facility] Address [address] [place] [phone] Care Team Providers Care Director Digital Marketing Name Role Phone HIM CCA OTHER Assessment No assessment recorded. Plan of Treatment Reminders Order Date Submit Date Provider Last Modified By Organization Details Last Modified Time Details Appointments None recorded. Lab None recorded. Referral None recorded. Procedures None recorded. Surgeries None recorded. Imaging None recorded. Medication Orders ketorolac 30 mg/mL injection solution 2024 025 [facility], [address] [place] [address], [address], 5 20:19:13 Patient TargetsNo targets recorded. Patient InstructionsNo instructions recorded. Reason for Referral None Reported. Medical Equipment None Reported. Allergies Allergen ID [...] medicatio n diarrhea Not available low 04/30/2022 86903 2 RxNorm EMELY DHILLON MD [address] [facility],[address], [place], [address] [facility] [employer] 4 09:58:09 4312 Bactrim medicatio n Not available Not available Not available 02/20/2023 79499 9 RxNorm Not Available [facility] - production 4 03:41:14 4313 sulfameth oxazole / trimethop rim medicatio n Not available Not available Not available 02/20/2023 23026 RxNorm Marita Ramos MD [address] [place] [address],[address], [place], [address], Jelli 4 14:13:42 4314 doxycycli ne Not available Not available Not available Not available 02/20/2023 3640 RxNorm Not Available [facility] - production 03:41:14 5895 Seroquel medicatio n Not available Not available Not available 09/30/2023 94240 RxNorm EMELY DHILLON MD [address] [place] [address],[address], [place], [address], Jelli 4 18:08:17 5896 fluoxetin e medicatio n Not available Not available Not available 09/30/2023 4493 RxNorm EMELY DHILLON MD [address] [place] [address],[address], [place], [address], Jelli 4 18:08:31 5897 nabumeton e medicatio n Not available Not available Not available 09/30/2023 37217 RxNorm EMELY DHILLON MD [address] [place] [address],[address], [place], [address], Jelli 4 18:08:46 5898 propranol ol medicatio n Not available Not available Not available 09/30/2023 8787 RxNorm EMELY DHILLON MD [address] [place] [address],[address], [place], [address], Jelli 4 18:09:03 7995 Product containin g penicilli n and antibioti c (product) medicatio n Not available Not available Not available 12/11/2023 18392 05 SNOMED Not Available [facility] - production [...] propionate 50 mcg/actuatio n nasal spray,suspen zoe Peculiar 1 spray every day by intranasal route. [...] Not Available Not Available Vitals Date Recorded Heart rate Body temperature Respiratory rate Oxygen saturation Oxygen saturation in Arterial blood by Pulse oximetry Systolic blood pressure Diastolic blood pressure Systolic blood pressure Diastolic blood pressure Provider Name and Address Organization Details Last Updated DateTime 5 77 /min 98.2 [degF] 16 /min 98 % 98 % 150 mm[Hg] 40 mm[Hg] 150 mm[Hg] 70 mm[Hg] Not Available [facility] - production 5 20:57:06 Social History None recorded. Functional Status None recorded. Mental Status None recorded. Family History Nothing Reported. Medical History No medical history recorded. Gynecological HistoryNo gynecological history recorded. Obstetrics History GPAL:G 0 P 0 0 0 0 Past Encounters Encounter ID Performer Location Encounter Start Date Encounter Closed Date Diagnosis/Indication Diagnosis SNOMED-CT Code Diagnosis ICD10 Code Diagnosis Note [id number] Wes Regan MD [facility] - [address] [address] 01/16/2024 19:06:51 01/17/2024 08:57:49 History of operative procedure on shoulder [id number] Z98.890 [id number] Luis Cutler MD [facility] - [address] [address] 01/20/2024 18:38:49 01/20/2024 21:54:58 Shoulder pain [id number] M25.519 As noted, we were called to see this patient regarding concerns of severe shoulder pain apparently due to an injury in a sensitive recently post-op patient. Evaluation in the field was performed by my truck service manager colleague, as noted above, I provided real-time direction and supervisio n for this visit. Impression :Severe shoulder pain, refractory to OTC APAP Plan:IV or IM ketorolac 30 mg [id number] Marita Ramos MD [facility] - [address] [address] 02/10/2024 17:37:40 02/12/2024 21:08:43 Urinary symptoms [id number] R39.9 [id number] EMELY DHILLON MD [facility] [address] [place] [phone] 02/16/2024 20:12:37 02/18/2024 00:14:16 Pain of left shoulder joint [id number] M25.512 Evaluation in the field was performed by my truck service manager colleague, as noted above, I provided real-time direction and supervisio n for this visit. The evaluation revealed a 63-year-ol d female presenting with complaints of left shoulder pain. Pt is s/p left shoulder surgery 01/15, The patient experience d a mechanical fall today, landing on her left arm, which exacerbate d her pain. She was seen by us last on 01/19 and received Toradol with similar complaints and received Ketorolac 30 mg . She took gabapentin and Tylenol, but these have not provided significan t relief. Reports that will go to tomorrow for x-ray. Has not started PT yet . She denies fever, chills, chest pain, shortness of breath, weakness, numbness in the left arm, nausea, or vomiting.V SS.Exam with : No erythema, swelling, or deformity noted in the left arm. Circulatio n, motor, and sensory are intact. No neurologic al deficits observed. Range of motion is decreased, but the patient reports no changes since surgery.Manny cloud reviewed Impression :Acute Left shoulder pain s/p fall Plan:-The presentati on is consistent with acute left shoulder pain, without concern for a traumatic or infectious etiology.- Administer ed Ketorolac 30 mg IM x1 for pain relief.-Ad vised the patient to use ice, take Tylenol, and continue gabapentin for pain management .-Recommen ded the patient go to urgent care for an X-ray of the left shoulder.- Red flags were reviewed with the patient, including worsening pain, numbness, tingling, or inability to move the shoulder. Primary care, considerPT since pt has had shoulder surgery 1 month ago and has not started it yet. Dispositio n: We discussed the diagnostic uncertaint y of home visits and the risk associated with this. In this case, the patient and I felt this to be an acceptable and reasonable amount of risk given the benefit of avoiding an ED visit. We discussed the need to seek care urgently/e mergently in the setting of any new or worsening serious symptoms, particular ly fever, chills, worsening pain on the left shoulder, weakness, numbness of the left arm, CP, SOB or any other concerns. Health Concerns Section Related Observation LastModified by Organization Detai ls LastModified Time None Recorded Concern Status LastModified by Organization Details LastModified Time None Recorded Payers Encounter Date Sequence Insurance Name Policy Number Policy Valdez Covered Member ID Valdez Member ID Guarantor Name 02/16/2024 1 [facility] - DOS ON OR AFTER 2022 - DUAL ELIGIBLE - NURSING HOME OPTIONS AND ONE CARE (MEDICARE REPLACEMENT/ADV ANTAGE - HMO) Elizabeth Huang [id number] Elizabeth Huang Notes Date Note Type Note Provider Name and Address Organization Details Recorded Time 02/16/2024 text/html [facility] Nurse Triage Notes (Alberto Morocho - CAROL ANN): Reason For Request: Pt reporting left shoulder pain due to smacking it against the counter (notes its the same shoulder she had surgery on) Denies: Worst Headache of life New onset of vision loss Sudden onset -unilateral weakness/gait disturbance Fall with head strike and altered LOC New onset of Slurred speech or difficulty finding words Sudden Mental status changes Head pain with fever chills and neck pain Seizure activity Chief Complaints: Joint pain/swelling PMH: COPD/Asthma, Severe Persistent Mental Illness (SPMI), Hypertension Comments: Topographical Surveyor verified the Pt.'s name//address and phone number. Education provided on the response time and the Pt. was advised to monitor reported s/s and seek emergency treatment if needed. Pt reports left shoulder pain - Reports hitting it against the counter - No bruising - Denies fever - Pt reports she is going to take Tylenol for pain - Wellness visit requested .................. .................. .................. .................. .................. .................. .................. ............... Carrier Packer Note From Jacques Nix: Dispatched to the call address for the elderly female with shoulder pain. Pt states she had shoulder surgery a month ago today. She states she didn't have her glasses on earlier today and tripped over the chair and fell onto her back on her shoulder. Pt denies head strike or LOC. Pt states she is going to urgent care tomorrow for imaging and just is looking for relief of the pain until then. Pt denies chest pain, diff breathing or SoB. Pt denies allergies to NSAIDs and states she has had ketorolac before. Pt was found sitting at kitchen table, in no apparent distress, breathing non labored, able to speak in full sentences, -JVD, -HEENT, skin PWD with good turgor, mucous membranes pink and moist, +CMSx4, Pt with baseline ROM, -edema/swelling, abd soft non tender/distended. C consulted. 5 Med rights confirmed. Pt given 30mg IM Ketorolac (Right deltoid). Red flags discussed. ALL times are approx. .................. .................. .................. .................. .................. .................. .................. ............... [facility] Consulted: Emely Dhillon .................. .................. .................. .................. .................. .................. .................. ............... Disposition: Fulfilled EMELY DHILLON MD [address] [place] [address], [place], [address], MARY - FAHAD BLAS 02/17/2024 00:54:25 OBGyn Episode No OBEpisode recorded.
--- OUTSIDE RECORDS SUMMARY | 2024-03-10 17:58 | XMS_ITS | Encounter Summary ---
Author Organization [facility] Address [address] [place] [address] Care Team Providers Care Mock Up Maker Name Role Phone Clare Wilson Primary Care Provider [phone] Reason for Visit * Auth/Cert (Routine) Specialty Diagnoses / Procedures Referred By Contshanna t Referred To Contact Diagnoses Chronic left shoulder pain Chronic left shoulder pain [M25.512, G89.29] Procedures UT SHLDR ARTHROSCOP,SURG,W/ROTAT CUFF REPR UT SHLDR ARTHROSCOP,EXTEN DEBRIDE UT REPAIR BICEPS LONG TENDON ARTHROSCOPY, SHOULDER, SURGICAL;?? WITH ROTATOR CUFF REPAIR ARTHROSCOPY, SHOULDER, SURGICAL;?? DEBRIDEMENT, EXTENSIVE TENODESIS OF LONG TENDON OF BICEPS Luis Minor MD [address] [place] [address] Phone: tel: fax: Referral ID Status Reason Start Date Expiration Date Visits Re quested Visits Authorized [id number] 10/03/2023 99 99 Encounter Details Date Type Department Care Team (Late st Contact Info) Description 01/16/2024 2:50 PM EST Hospital Encounter Social History Tobacco Use Types Packs/Day Years Used Date Smoking Tobacco: Former Cigarettes 3 36 1 - 12/03/2011 Smokeless Tobacco: Never Alcohol Use Standard Drinks/Week Comments Not Currently 0 (1 standard drink = 0.6 oz pur e alcohol) Quit 23 years ago Comments No Sex and Gender Information Value Date Recorded Sex Assigned at Female 08/31/2023 2:04 PM EDT Legal Sex Female 1:30 PM EDT Gender Identity Non-binary 08/31/2023 2:04 PM EDT Sexual Orientation Not on file documented as of this encounter Plan of Treatment Upcoming Encounters Date Type Department Care Team (Late st Contact Info) Description 03/20/2024 2:15 PM EST Follow-Up [facility] [address] [place] [address] Luis Minor MD [address] [place] [address] documented as of this encounter Visit Diagnoses Diagnosis Shoulder pain- Primary Pain in joint, shoulder region documented in this encounter Admitting Diagnoses Diagnosis Shoulder pain Pain in joint, shoulder region documented in this encounter Care Teams Mock Up Maker Relationship Specialty Start Date End Date Clare Wilson [address] [place] [address] PCP - General Family Medicine 09/10/23 documented as of this encounter
--- OUTSIDE RECORDS SUMMARY | 2024-03-10 17:58 | XMS_ITS | Continuity of Care Document ---
Author Organization [employer] [employer] Address [address] [place] [phone] Care Team Providers Care Power Plant Inspector Name Role Phone HIM CCA OTHER Assessment Encounter Date Assessment Date Assessment LastModified by Organization Details LastModified Time 03/05/2024 03/05/2024 I provided real -time medical direction via phone for this encounter and was available for additional phone-based assistance as needed. I have reviewed and agree with the Assessment and Plan as documented by the Information Security Consultant. Patient given the opportunity to ask questions. Our service contacted for an assessment of: Breathing issues As per above, patient with a history of asthma overlap syndrome. She is seen by Allergy and immunology. She recently developed URI symptoms. She noticed that she was out of her inhaler and recently got in touch with her PCP who prescribed a new inhaler however there was a delay in getting it from the pharmacy. The patient called this service early this morning however the medication did arrive prior to the medic arriving on the scene. The patient feels like she is making improvements and she has also been taking tatk-pek-hlzfwil medications. She denies shortness of breath, dyspnea on exertion, chest pain. She denies fever or chills. Per museum tour guide on the scene, vital signs vital signs are stable the patient is afebrile. There is no increased work of breathing. The patient is hemodynamically stable. There is no hypoxia present. Patient shows good understanding of use of her inhaler. service. Impression: Asthma Plan: She did state that her nebulizers are subsequently however the medic was able to locate and proximally week supply of the medication. We advised that she contact her nurse practitioner for a renewal of her albuterol MDI as and inhaler and that she use the medication as prescribed. Patient voiced understanding and we also discussed red flags as to when to seek a higher level of care or recall the Allergies: Reviewed PCP f/u: We discussed the diagnostic uncertainty of home visits and the risk associated with this. In this case, the patient and I felt this to be an acceptable and reasonable amount of risk given the benefit of avoiding an ED visit. We discussed the need to seek care urgently/emergentl y in the setting of any new or worsening serious symptoms, particularly fever chills [email or web address] Not available 03/05/2024 16:46:41 Plan of Treatment Reminders Order Date Submit Date Provider Last Modified By Organization Details Last Modified Time Details Appointments None record ed. Lab None record ed. Referral None record ed. Procedures None record ed. Surgeries None record ed. Imaging None record ed. Medication Orders None record ed. Patient TargetsNo targets recorded. Patient InstructionsNo instructions [...] Not Available [facility] - production 4 03:41:14 2119 morphine medicatio n Not available Not available Not available 04/30/2022 7052 RxNorm Not Available [facility] - production 4 03:41:14 2120 Augmentin medicatio n diarrhea Not available low 04/30/2022 23897 2 RxNorm GAURAV DHILLON MD [address] [place] [address],[address], [place], [phone], [facility] 4 09:58:09 4312 Bactrim medicatio n Not available Not available Not available 02/20/2023 65629 9 RxNorm Not Available [facility] - production 4 03:41:14 4313 sulfameth oxazole / trimethop rim medicatio n Not available Not available Not available 02/20/2023 26227 RxNorm Marita Ramos MD [address] [facility],[address], [place], [phone], Audiam 4 14:13:42 4314 doxycycli ne Not available Not available Not available Not available 02/20/2023 3640 RxNorm Not Available [facility] - production 03:41:14 5895 Seroquel medicatio n Not available Not available Not available 09/30/2023 20481 RxQue DHILLON MD [address] [place] [address],[address], [place], [phone], Audiam 4 18:08:17 5896 fluoxetin e medicatio n Not available Not available Not available 09/30/2023 4493 RxQue DHILLON MD [address] [place] [address],[address], [place], [phone], Aud[facility] 4 18:08:31 5897 nabumeton e medicatio n Not available Not available Not available 09/30/2023 52229 RxQue DHILLON MD [address] [place] [address],[address], [place], [address], Audiam 4 18:08:46 5898 propranol ol medicatio n Not available Not available Not available 09/30/2023 8787 RxQue DHILLON MD [address] [place] [address],[address], [place], [address], Audiam 4 18:09:03 7995 Product containin g penicilli n and antibioti c (product) medicatio n Not available Not available Not available 12/11/2023 84188 05 SNOMED Not Available [facility] - production [...] propionate 50 mcg/actuatio n nasal spray,suspen zoe [place] 1 spray every day by intranasal route. [...] Not Available Not Available Vitals Date Recorded Oxygen saturation Oxygen saturation in Arterial blood by Pulse oximetry Body temperature Body weight Heart rate Respiratory rate Systolic blood pressure Diastolic blood pressure Provider Name and Address Organization Details Last Updated DateTime 5 97 % 97 % 98.7 [degF] 31057.1 92 g 68 /min 16 /min 162 mm[Hg] 90 mm[Hg] Not Available [facility] - production 5 16:43:19 Social History None recorded. Functional Status None recorded. Mental Status None recorded. Family History Nothing Reported. Medical History No medical history recorded. Gynecological HistoryNo gynecological history recorded. Obstetrics History GPAL:G 0 P 0 0 0 0 Past Encounters Encounter ID Performer Location Encounter Start Date Encounter Closed Date Diagnosis/Indication Diagnosis SNOMED-CT Code Diagnosis ICD10 Code Diagnosis Note [id number] Marita Ramos MD [facility] - [address] [address] 02/10/2024 17:37:40 02/12/2024 21:08:43 Urinary symptoms 253627897 R39.9 [id number] GAURAV DHILLON MD [facility] - [address] [address] 02/16/2024 20:12:37 02/18/2024 00:14:16 Pain of left shoulder joint [id number] 4299345 M25.512 Evaluation in the field was performed by my museum tour guide colleague, as noted above, I provided real-time [...] arm, CP, SOB or any other concerns. [id number] Loi Wu MD [facility] [address] [place] [phone] 02/28/2024 13:48:17 02/28/2024 20:22:02 Upper respiratory infection [id number] J06.9 [id number] Marita Ramos MD [facility] [address] [place] [phone] 03/05/2024 16:43:16 03/05/2024 19:19:50 Asthma 526164236 J45.909 Health Concerns Section Related Observation LastModified by Organization Detai ls LastModified Time None Recorded Concern Status LastModified by Organization Details LastModified Time None Recorded Payers Encounter Date Sequence Insurance Name Policy Number Policy Valdez Covered Member ID Valdez Member ID Guarantor Name 03/05/2024 1 [facility] - DOS ON OR AFTER 2022 - DUAL ELIGIBLE - LONG-TERM OPTIONS AND ONE CARE (MEDICARE REPLACEMENT/ADV ANTAGE - HMO) Elizabeth Huang [id number] Elizabeth Huang Notes Date Note Type Note Provider Name and Address Organization Details Recorded Time 03/05/2024 text/html [facility] Nurse Triage Notes (Shira Henning - RN): Reason For Request: Patient is having breathing problems, and doesn't have her medicine, and there is a delay in getting her medicine. - Patient Reports: Cough, fever greater than 2 days ; History of asthma, increased use of inhaler; Cough; Shortness of breath with exertion Denies: Increased work of breathing/labored ? with or without fever Unable to speak in full sentences without distress Discoloration of skin -cyanosis Needs to sleep sitting up, can? t catch breath Shortness of breath in setting of confusion COPD COVID Exposure Sputum increase Pain with inspiration Chief Complaints: Breathing problems PMH: COPD/Asthma, Severe Persistent Mental Illness (SPMI), Hypertension PMH Reviewed at 03/04/2024 - : Allergies Reviewed at 03/04/2024:15 Comments: Dice Maker verified the name//address and phone number. Pt calling for sob. She feels her asthma is acting up. She has a dry cough. She has exp wheeze. She does have her albuterol neb but she thinks it is . Her TRAFFIC ENGINEER called in a new inhaler but the pharmacy did not have it. She is taking cough medicine and it is helping slightly. She was started on prednisone 20 mg and a z pack. She is aware the visit is for 03/05 and will go to the ER if her breathing gets worse Education provided on the response time and the Patient was advised to monitor reported s/s and seek emergency treatment if needed .................. .................. .................. .................. .................. .................. .................. ............... Information Security Consultant Note From Doroteo Lagn: Pt co continued cough and feeling unwell. Pt sts the albuterol inhaler prescribed to her arrived this morning and she used with relief. Pt sts she also felt her Albuterol for the nebulizer machine . Some of her supply was Jan 05 and she had 2 packs 07/06. Pt took tussin Cough syrup during visit. Pt denies fever, headache, NVD, NC. Pt already on prednisone and pack for current symptoms. Pt denies CP, or abdominal pain. Baseline vitals assessed, WNL, Lungs clear bilaterally. Pt was experiencing a dry cough during visit. Pt was Afebrile. Good skin color and turgor. [facility] contacted and advised pt to follow up with crime scene photographer for refill on albuterol for her machine as they are who prescribes for her. Pt reassured her lungs are clear and she didn't have a fever. Pt education on signs indicating the ER. Pt advised to follow up with PCP if symptoms persist. Pt cooperative during visit. .................. .................. .................. .................. .................. .................. .................. ............... [facility] Consulted: Marita Ramos .................. .................. .................. .................. .................. .................. .................. ............... Disposition: Fulfilled Marita Ramos MD [address] [facility] [place], [phone], MARY - [place], FAHAD 03/05/2024 16:46:53 OBGyn Episode No OBEpisode recorded.
--- OUTSIDE RECORDS SUMMARY | 2024-03-10 17:58 | XMS_ITS | Encounter Summary ---
Author Organization [facility] Address [address] [place] [address] Care Team Providers Care Senior Ios Developer Name Role Phone Clare Wilson Primary Care Provider [phone] Reason for Visit * Reason Onset Date Comments pac- post op-Iván 02/28/2024 Encounter Details Date Type Department Care Team (Late st Contact Info) Description 02/28/2024 [place] [address] Telephone Intake, Staff pac- post op-Iván Social History Tobacco Use Types Packs/Day Years [...] on file documented as of this encounter Miscellaneous Notes * Telephone Encounter - Oliva Mora - 02/28/2024 9:52 AM EST Patient needs to cancel the post op appt with Dr. Minor, please call her outreach counselor to schedule. Nithin's cell is on TE Thank you documented in this encounter Plan of Treatment Upcoming Encounters Date Type Department Care Team (Late st Contact Info) Description 03/20/2024 2:15 PM EST Follow-Up [facility] [address] [place] [phone] Luis Minor MD [address] [place] [phone] documented as of this encounter Visit Diagnoses Not on filedocumented in this encounter Care Teams Senior Ios Developer Relationship Specialty Start Date End Date Clare Wilson [address] [place] [phone] PCP - General Family Medicine 09/10/23 documented as of this encounter
--- OUTSIDE RECORDS SUMMARY | 2024-03-10 17:58 | XMS_ITS | Encounter Summary ---
Author Organization [facility] Address [address] [place] [address] Care Team Providers Care Account Information Clerk Name Role Phone Clare Wilson Primary Care Provider [phone] Encounter Details Date Type Department Care Team (Late Contact Info) Description 01/16/2024 Orders Only [facility] [address] [place] [address] Jesus Gillis MD [address] [place] [address] Social History Tobacco Use Types Packs/Day Years [...] Encounters Date Type Department Care Team (Late Contact Info) Description 03/20/2024 2:15 PM EST Follow-Up [facility] [address] [place] [phone] Luis Minor MD [address] [place] [phone] documented as of this encounter Visit Diagnoses Not on filedocumented in this encounter Care Teams Account Information Clerk Relationship Specialty Start Date End Date Clare Wilson [address] [place] [phone] PCP - General Family Medicine 09/10/23 documented as of this encounter
--- OUTSIDE RECORDS SUMMARY | 2024-03-10 17:58 | XMS_ITS | Clinical Summary ---
Author Organization [facility] Address [address] [place] [address] Care Team Providers Care Business Education Teacher Name Role Phone Lexa Wilsonsun Sharpe Primary Care Provider [phone] Allergies Active Allergy Reactions Criticality Noted Date Comments Amoxicillin Abdominal Pain High 10/28/2019 augmentin Aspirin Indigestion 06/18/2013 Doxycycline Nausea And Vomiting 06/18/2013 Fish Derived Unknown 12/01/2018 Iodinated Contrast Media Hives 08/03/2019 Methyclothiazide Other (see comments),Unknown 05/27/2015 Pt states do not recall reaction Pt states do not recall reaction Morphine Hives High 06/18/2013 Nabumetone Hives 06/18/2013 Other Headache 09/04/2019 Chocolate, Onion, Gravy, Pickles, Aspartame, Causes migraines Penicillins Other (see comments) High 10/28/2019 augmentin Propranolol Hives 06/18/2013 Quetiapine Hives,Other (see comments) 06/18/2013 Tolerates Seroquel Sulfa (Sulfonamide Antibiotics) Hives 06/18/2013 Sulfamethoxazole-Trimetho prim Hives High 05/27/2015 Thiazides Unknown 11/06/2021 Other reaction(s): hives Medications ARIPiprazole (ABILIFY) 10 mg tablet Take 10 mg by mouth every morning. 0 Active ascorbic acid, vitamin C, (VITAMIN C) 250 mg tablet Take 250 mg by mouth daily. 9 Active QVAR REDIHALER 80 mcg/actuation HFA aerosol breath activated as needed. allergies 0 Active carBAMazepine XR (TEGretol XR) 200 mg tablet Take 400 mg by mouth 2 times a day. 9 Active cholecalciferol (VITAMIN D3) 1,000 unit tablet Take 2,000 Units by mouth daily. 9 Active EPINEPHrine 1 mg/mL kit daily as needed. Active estradioL (ESTRACE) 1 mg tablet Take 1 mg by mouth every morning. 0 Active fluticasone propion-salmeter oL (ADVAIR DISKUS) 500-50 mcg inhaler Inhale 1 puff by mouth 2 times a day. 0 Active gabapentin (NEURONTIN) 800 mg tablet Take 800 mg by mouth 3 times a day. 0 Active lisinopriL (PRINIVIL,ZESTRI L) 10 mg tablet Take 10 mg by mouth every morning. 0 Active meclizine (ANTIVERT) 25 mg tablet Take 25 mg by mouth 4 times a day. 0 Active melatonin 3 mg tablet Take 9 mg by mouth nightly. 0 Active metFORMIN ER (GLUCOPHAGE XR) 500 mg tablet Take 500 mg by mouth 2 (two) times a day. 0 Active montelukast (SINGULAIR) 10 mg tablet Take 10 mg by mouth nightly. dinner 0 Active olopatadine (PATANOL) 0.1 % ophthalmic solution as needed. 0 Active XOLAIR 150 mg injection Inject 150 mg under the skin every 28 days. [address] (PROTONIX) 40 mg tablet 2 (two) times a day. 0 Active risperiDONE (RisperDAL) 3 mg tablet Take 3 mg by mouth every 12 hours. 3mg po in AM; and 4mg po in PM 0 Active SUMAtriptan (IMITREX) 100 mg tablet once as needed. 0 Active topiramate (TOPAMAX) 50 mg tablet Take 150 mg by mouth 2 times a day. 0 Active albuterol (PROAIR HFA,VENTOLIN HFA) 90 mcg inhaler Inhale 1-2 puffs by mouth every 4 hours as needed for wheezing or shortness of breath. Use with spacer. Active Pain Relief Extra Strength 500 mg tablet Take 1 tablet by mouth as needed. 1-2 tabs every 6 hrs prn 1 Active ibuprofen (MOTRIN) 400 mg tablet Take 200 mg by mouth every 8 hours as needed. prn 0 Active multivitamin tablet every morning. 1 Active Vitamins B Complex capsule 1 tab daily am 1 Active dicyclomine (BENTYL) 20 mg tablet 20 mg 4 times daily and hs 1 Active Sudogest 30 mg tablet Prn allergies 1 Active Incruse Ellipta 62.5 mcg/actuation blister with device Inhale 62.5 mcg by mouth every morning. 1 Active prazosin (MINIPRESS) 2 mg capsule Take 2 mg by mouth nightly. 2 Active lidocaine (LIDODERM) 5% patch Apply 1 patch topically to the affected area once a day. shoulder 2 Active traMADoL (ULTRAM) 50 mg tablet Take 1 tablet (50 mg total) by mouth every 6 hours as needed for pain. 10 tablet 2 Active Additional Information Patient taking differently: 100 mgoral2 times daily, Reported on 01/07/2024 Taltz Autoinjector 80 mg/mL auto-injector Inject 80 mg under the skin. Active aspirin 81 mg EC tablet Take 1 tablet (81 mg total) by mouth 2 (two) times a day. 28 tablet 4 Active Active Problems Problem Noted Date Diagnosed Date Chronic obstructive pulmonary disease 12/05/2021 Calculus of kidney 12/05/2021 Abdominal pain 12/05/2021 Knee pain 12/05/2021 Diabetes mellitus 12/05/2021 Hearing loss 12/05/2021 Overview (12/05/2021): [facility] audiology History of total hysterectom y with bilateral salpingo-oophorectomy (BSO) 12/05/2021 Lower urinary tract infectious disease 2 Menopausal syndrome 12/05/2021 Obesity 12/05/2021 Osteoarthritis 12/05/2021 Pelvic pain in female 12/05/2021 Pernicious anemia 12/05/2021 Posttraumatic stress disorder 12/05/2021 Respiratory abnormalities 12/05/2021 Shoulder pain 12/05/2021 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 She was vaccinated with the Moderna vaccine, first dose 04/29/2020 and second dose 05/27/2020. Covid swab on 11/25 noted to be positive. Repeat swab on 11/[address] Kauffman from infectious diseases recommends following protocol - patient is aware that she will have to self isolate for 10 days. She is agreeable with this and I explained how asymptomatic people can still transmit Covid. Ureterolithiasis 11/25/2020 Overview (12/05/2021): Last Assessment & Plan: Without ureteral obstruction. POD #3 s/p laser lithotripsy, cystoscopy, uteroscopy, retrograde stone extraction. -Patient will need to follow-up with urology as an outpatient -urine cx from 11/25 no growth Epidural lipomatosis 09/14/2020 Hypertension 12/03/2019 Heart murmur 12/03/2019 Glaucoma 12/03/2019 Bilateral carpal tunnel syndrome 11/13/2019 Severe recurrent major depre ssion without psychotic features 11/25/2018 Seizure disorder (CMS/HCC) 06/16/2013 Overview (12/05/2021): Seizure disorder Seizure disorder Last Assessment & Plan: No seizures while inpatient. Continue carbamazepine and topiramate as prescribed. Migraine headache 06/16/2013 Overview (12/05/2021): Migraine Gastroesophageal reflux disease 06/16/2013 Overview (12/05/2021): Gastroesophageal reflux disease chronic pantozapole, Bipolar disorder 06/16/2013 Overview (12/05/2021): Bipolar disorder Bipolar disorder Last Assessment & Plan: Mood is stable. No SI. Continue Abilify, risperidone, and prazosin as prescribed. Dr [facility] Asthma 06/16/2013 Overview (12/05/2021): Asthma Asthma Last Assessment & Plan: No acute symptoms, continue outpatient medications Seasonal allergic rhinitis 06/16/2013 Overview (12/05/2021): Allergic rhinitis Encounters Date Type Department Care Team Description 03/05/[address] [address] Telephone Intake, Staff PAC Dr. Minor_ Left shoulder rotatorcuff_ PostOP 02/28/[address] [address] Telephone Intake, Staff pac- post op-Iván 01/31/2024 11:15 AM EST Follow-Up [address] [address] Luis Minor MD Left shoulder pain, unspecified chronicity (Primary Dx) 01/31/2024 Orders Only [address] [address] Mason Montesinos MD 01/21/2024 Orders Only [facility] [address] [place] [address] Luis Minor MD 01/20/2024 Telephone [facility] [address] [place] [address] Abbey Dutta MD 01/19/2024 Telephone [facility] [address] [place] [address] Nael Chang MD PhD 01/16/2024 2:50 PM EST - 01/16/2024 4:55 PM EST [facility] [address] [address] Luis Minor MD ARTHROSCOPY, SHOULDER, SURGICAL;?? WITH ROTATOR CUFF REPAIR [[id number] (CPT??)] 01/16/2024 2:50 PM EST Hospital Encounter 01/16/2024 Orders Only [facility] [address] [place] [address] Jesus Gillis MD from Last 3 Months Family History Medical History Relation Name Comments Diabetes Mother Relation Name Status Comments Father Mother Social History Tobacco Use Types Packs/Day Years Used Date Smoking Tobacco: Former Cigarettes 3 36 1 - 12/03/2011 Smokeless Tobacco: Never Tobacco Cessation:Counseling Given: Not Answered Alcohol Use Standard Drinks/Week Comments Not Currently 0 (1 standard drink = 0.6 oz pur e alcohol) Quit 23 years ago Comments No Sex and Gender Information Value Date Recorded Sex Assigned at Female 08/31/2023 2:04 PM EDT Legal Sex Female 1:30 PM EDT Gender Identity Non-binary 08/31/2023 2:04 PM EDT Sexual Orientation Not on file Last Filed Vital Signs Vital Sign Reading Time Taken Comments Blood Pressure 116/69 05/06/2020 9:10 AM EDT Pulse 82 05/06/2020 9:10 AM EDT Temperature 36.3 ??C (97.4 ??F) 05/06/2020 9:10 AM ED T Respiratory Rate 20 05/06/2020 9:10 AM EDT Oxygen Saturation 99% 05/06/2020 9:10 AM EDT Inhaled Oxygen Concentration - - Weight 80.5 kg (177 lb 7.5 oz) 05/06/2020 7:00 A M EDT Height 154.9 cm (5' 1 ) 04/29/2020 3:04 PM EDT Body Mass Index 33.53 04/29/2020 3:04 PM EDT Plan of Treatment Upcoming Encounters Date Type Department Care Team (Late st Contact Info) Description 03/20/2024 2:15 PM EST Follow-Up [facility] [address] [place] [address] Luis Minor MD [address] [place] [address] Health Maintenance Due Date Last Done Comments Cologuard 1962 Colon Cancer Screening 1962 Colonoscopy 1962 FOBT / Fit Test 1962 HIV Screening 1962 Hepatitis C Screening 1962 Sigmoidoscopy 1962 Ophthalmology Exam 1972 Urine Microalbumin 1972 RSV Vaccine (60+ years old and patients) (1 - Risk 60-74 years 1-dose series) 2022 COVID-19 Vaccine (2023-2 5 season) 2023 10/22/2021, 06/11/2021, 01/02/2021, Additional history exists Alcohol/Substance Use Screening 02/13/2024 Depression Evaluation 02/13/2024 Social Drivers of Health Nia ual Screening 02/13/2024 CT Lung Cancer Screening (Baseline) 04/23/2024 04/24/2023 Hemoglobin A1C 06/07/2024 12/08/2023, 11/11/2022 Basic Metabolic Panel 12/08/2024 12/09/2023 , 12/06/2023, 11/07/2023, Additional history exists Mammogram 12/08/2025 12/09/2023 DTaP,Tdap,and Td Vaccines (5 - Td or Tdap) 05/26/2030 05/26/2020, 06/01/2018, 04/25/2013, Additional history exists Hepatitis B Vaccines Completed 04/01/2009, 10/22/2008, 09/21/2008 Zoster Vaccines Completed 02/11/2021, 09/07/2020 CT Lung Cancer Screening (12 months, previous LungRADS 1 or 2) Discontinued 04/24/2023 Pneumococcal Vaccine: Pediat kranthi (0-5 Years) and At-Risk Patients (6-64 Years) Completed 10/22/2023, 11/23/2016, 04/09/2014, Additional history exists Influenza Vaccine Completed 10/31/2023, , 12/10/2020, Additional history exists Medical Devices Implanted Type Area New Car Driver Device Identifier Shelf Expiration Date Model / Serial / Lot Laurel Suture Double Loaded With White/Blue White/Black Suturetape [employer] - [id number] Implanted:Qty: 1 on 04/02/2020 by Luis Minor MD at [facility] Implant Right: Shoulder [employer] 01/11/2023 [id number] / / [id number] Procedures * Due to [place] [employer] law, this organization might not be sharing negative HIV tests. Procedure Name Priority Date/Time Associated Diagnosis Comments XR SHOULDER 2+ VW LEFT Routine 01/31/2024 11:41 AM EST Left shoulder pain, unspecified chronicity from Last 3 Months Results * Due to [place] [employer] law, this organization might not be sharing negative HIV tests. * XR Shoulder 2+ vw Left (01/31/2024 11:41 AM EST) Anatomical Region Laterality Modality Upper Extremities, Shoulder Left Comp uted Radiography 02/01/2024 5:51 PM EST Impressions 02/01/2024 5:52 PM EST FINDINGS/IMPRESSION: No radiographic evidence of acute fracture or dislocation. The glenohumeral joint is congruent. Mild to moderate acromioclavicular arthropathy. Apparent inferolateral tilting acromion. Thoracic aortic atherosclerotic calcifications. If this radiology report contains a blank impression section, it is an incomplete radiology report. ??Please contact the interpreting radiologist or applicable radiology division as soon as possible to obtain the completed interpretation. ? Workstation ID: [id number] Narrative 02/01/2024 5:52 PM EST COMPARISON: 07/15/2022. Resulting Agency Comment [id number] Procedure Note Johnson Bose MD - 02/01/2024 COMPARISON: 07/15/2022. IMPRESSION: FINDINGS/IMPRESSION: No radiographic evidence of acute fracture or dislocation. Theglenohumeral joint is congruent. Mild to moderate acromioclaviculararthropathy. Apparent inferolateral tilting acromion. Thoracic aorticatherosclerotic calcifications. If this radiology report contains a blank impression section, it is anincomplete radiology report. Please contact the interpreting radiologistor applicable radiology division as soon as possible to obtain thecompleted interpretation. Workstation ID: [id number] us Luis Minor MD IMG XR PROCEDURES Final Resul t from Last 3 Months Insurance [facility] Advance Directives * Full Code (Latest Code Status on File) Date Activated Date Inactivated Comments 04/02/2020 10:29 AM 04/02/2020 6:36 PM Healthcare Agents on File Name Relationship Healthcare Agent Relationshi p Communication Pilarberna Olvera Sister Next of Kin [phone] (Kamala griffin) Care Teams Business Education Teacher Relationship Specialty Start Date End Date Clare Wilson [address] [place] [phone] PCP - General Family Medicine 09/10/23
--- OUTSIDE RECORDS SUMMARY | 2024-03-10 17:58 | XMS_ITS | Continuity of Care Document ---
Author Organization Ullink Mears, [place] in - [facility] Address [address] [place] [phone] Care Team Providers Care Internal Communications Specialist Name Role Phone HIM CCA OTHER Assessment Encounter Date Assessment Date Assessment LastModified by Organization Details LastModified Time 02/28/2024 02/28/2024 As noted, we were called to see this patient regarding concerns of sore throat. Evaluation in the field was performed by my product demonstrator colleague, as noted above, I provided real-time direction and supervision for this visit. The evaluation revealed COVID, FLU, strep negative. Lungs are clear and no erythema in oropharynx. Presentation consistent with URI. Recommended PO hydration, OTC anti-tussive. Impression: URI Plan: supportive treatment, f/u with PCP Primary care, consider CXR is symptoms don't resolve Disposition: We discussed the diagnostic uncertainty of home visits and the risk associated with this. In this case, the patient and I felt this to be an acceptable and reasonable amount of risk given the benefit of avoiding an ED visit. We discussed the need to seek care urgently/emerge ntly in the setting of any new or worsening serious symptoms, particularly fever, chest pain, shortness of breath. [email or web address] Not available 02/28/2024 14:31:34 Plan of Treatment Reminders Order Date Submit Date Provider Last Modified By Organization Details Last Modified Time Details Appointments None recorded. Lab rapid SARS CoV 2 Ag, QL IA, respiratory specimen 2024 025 [email or web address] [facility], [address] [place] [address], [phone], 13:54:02 rapid flu (A+B) 2024 025 [email or web address] [facility], [address] [place] [address], [phone], 5 13:54:02 rapid strep group A, throat [email or web address] [facility], [address] [place] [address], [phone], 5 13:54:02 Referral None recorded. Procedures None recorded. Surgeries [...] Not available 04/30/2022 1191 RxNorm Not Available [facility] 4 03:41:14 2118 morphine medicatio n Not available Not available Not available 04/30/2022 7052 RxNorm Not Available [facility] - production 4 03:41:14 2120 Augmentin medicatio n diarrhea Not available low 04/30/2022 28315 2 RxNorm GAURAV DHILLON MD [address] [place] [address],[address], [place], [phone], [employer] 4 09:58:09 4312 Bactrim medicatio n Not available Not available Not available 02/20/2023 43373 9 RxNorm Not Available [facility] 4 03:41:14 4313 sulfameth oxazole / trimethop rim medicatio n Not available Not available Not available 02/20/2023 65030 RxNorm Marita Ramos MD [address] [place] [address],[address], [place], [phone], [employer] 4 14:13:42 4314 doxycycli ne Not available Not available Not available Not available 02/20/2023 3640 RxNorm Not Available [facility] - production 4 03:41:14 5895 Seroquel medicatio n Not available Not available Not available 09/30/2023 59862 RxNorm GAURAV DHILLON MD [address] [place] [address],[address], [place], [place], [address] [place] [address] 0, [employer] 4 18:08:17 5896 fluoxetin e medicatio n Not available Not available Not available 09/30/2023 4493 RxNorm GAURAV DHILLON MD [address] [place] [address],[address], [place], [place], [address] [place] [address] 0, [employer] 4 18:08:31 5897 nabumeton e medicatio n Not available Not available Not available 09/30/2023 23456 RxNorm GAURAV DHILLON MD [address] [place] [address],[address], [place], [place], [address] [place] [address] 0, [employer] 4 18:08:46 5898 propranol ol medicatio n Not available Not available Not available 09/30/2023 8787 RxNorm GAURAV DHILLON MD [address] [place] [address],[address], [place], [place], [address] [place] [address] 0, [employer] 4 18:09:03 7995 Product containin g penicilli n and antibioti c (product) medicatio n Not available Not available Not available 12/11/2023 12575 05 SNOMED Not Available [facility] - production [...] propionate 50 mcg/actuatio n nasal spray,suspen zoe [place] 1 spray every day by intranasal route. [...] Available Not Available Vitals Date Recorded Body weight Respiratory rate Body temperature Heart rate Body height Oxygen saturation Oxygen saturation in Arterial blood by Pulse oximetry Systolic blood pressure Diastolic blood pressure Provider Name and Address Organization Details Last Updated DateTime 5 04367.1 92 g 16 /min 98.5 [degF] 86 /min 154.94 cm 96 % 96 % 115 mm[Hg] 74 mm[Hg] Not Available [facility] - production 5 13:48:19 Social History None recorded. Functional Status None recorded. Mental Status None recorded. Family History Nothing Reported. Medical History No medical history recorded. Gynecological HistoryNo gynecological history recorded. Obstetrics History GPAL:G 0 P 0 0 0 0 Past Encounters Encounter ID Performer Location Encounter Start Date Encounter Closed Date Diagnosis/Indication Diagnosis SNOMED-CT Code Diagnosis ICD10 Code Diagnosis Note [id number] Marita Ramos MD [address] [phone] 02/10/2024 17:37:40 02/12/2024 21:08:43 Urinary symptoms 474009403 R39.9 [id number] GAURAV DHILLON MD [address] [phone] 02/16/2024 20:12:37 02/18/2024 00:14:16 Pain of left shoulder joint 7123876231 1547765 M25.512 Evaluation in the field was performed by my product demonstrator colleague, as noted above, I provided real-time [...] arm, CP, SOB or any other concerns. [id number] Loi Wu MD Main - [facility] [address] [place] [phone] 02/28/2024 13:48:17 02/28/2024 20:22:02 Upper respiratory infection 33139586 J06.9 Health Concerns Section Related Observation LastModified by Organization Detai ls LastModified Time None Recorded Concern Status LastModified by Organization Details LastModified Time None Recorded Payers Encounter Date Sequence Insurance Name Policy Number Policy Valdez Covered Member ID Valdez Member ID Guarantor Name 02/28/2024 1 [facility] - DOS ON OR AFTER 2022 - DUAL ELIGIBLE - [facility] OPTIONS AND ONE CARE (MEDICARE REPLACEMENT/ADV ANTAGE - HMO) Elizabeth Huang [id number] Elizabeth Huang Notes Date Note Type Note Provider Name and Address Organization Details Recorded Time 02/28/2024 text/html CRC Nurse Triage Notes (Marcia Oliveira - RN): Reason For Request: Patient has throat problems and lost her voice, want's it checked out, can barely talk. Chief Complaints: Sore throat, Cough PMH: COPD/Asthma, Severe Persistent Mental Illness (SPMI), Hypertension PMH Reviewed at 02/28/2024: Allergies Reviewed at 02/28/2024:04 Comments: Patient has a hoarse voice since she was in the hospital this past week. Patient was admitted for psychatric evaluation. Patient reports a cough and sore throat. Productive cough, yellow sputum. Was not swabbed in the hospital. Denies shortness of breath. Education provided on the response time and the member was advised to monitor reported s/s and seek emergency treatment if needed. Remote Advisor Organization Information for Igor Casas - Jose E Legal Name: [employer]? Address: [address] [place] [address], Record Searcher: Burton Kruse MD SIDDHARTHA No.: [id number] Remote Advisor POC Test Results from [facility] - MING Rapid COVID antigen (13:44:27) COVID: - Rapid influenza antigen (13:44:28) Flu: - Rapid strep test (13:44:28) Strep: - .................. .................. .................. .................. .................. .................. .................. ............... Remote Advisor Note From Augusto Igor: [facility] visit for female pt. Pt called today concerned about sore throat/hoarse voice with cough and congestion. V/S taken as listed. Pt afebrile. Lung sounds clear bilaterally. Pt swabbed for flu covid and strep and all negative. No redness noted in posterior pharynx on exam. Consulted with [facility] [place]. Wu who recommended supportive care. Reviewed red flags for ED. Pt education provided. .................. .................. .................. .................. .................. .................. .................. ............... [facility] Consulted: Loi Wu .................. .................. .................. .................. .................. .................. .................. ............... Disposition: Fulfilled Loi Wu MD [address] [facility], [place], [phone], [employer] - FAHAD BLAS 02/28/2024 16:17:44 OBGyn Episode No OBEpisode recorded.
--- OUTSIDE RECORDS SUMMARY | 2024-03-10 17:58 | XMS_ITS | Encounter Summary ---
Author Organization [facility] Address [address] [place] [address] Care Team Providers Care Farm Butcher Name Role Phone Clare Wilson Primary Care Provider Reason for Visit * Reason Onset Date Comments PAC Dr. Minor_ Left shoulder rotatorcuff_ PostOP 03/05/2024 Encounter Details Date Type Department Care Team (Late st Contact Info) Description 03/05/2024 Telephone [facility] [address] [place] [phone] Telephone Intake, Staff PAC Dr. Minor_ Left shoulder rotatorcuff_ PostOP Social History Tobacco Use Types Packs/Day Years [...] encounter Miscellaneous Notes * Telephone Encounter - Frances Johnson - 03/05/2024 9:07 AM EST Patient is requesting to rebook PostOP please call Nithin back to lisbeth [phone] -Thank you documented in this encounter Plan of Treatment Upcoming Encounters Date Type Department Care Team (Late st Contact Info) Description 03/20/2024 2:15 PM EST Follow-Up [facility] [address] [place] [phone] Luis Minor MD [address] [place] [phone] documented as of this encounter Visit Diagnoses Not on filedocumented in this encounter Care Teams Farm Butcher Relationship Specialty Start Date End Date Clare Wilson [address] [place] [phone] PCP - General Family Medicine 09/10/23 documented as of this encounter
--- OUTSIDE RECORDS SUMMARY | 2024-03-10 17:58 | XMS_ITS | Data Portability ---
Author Organization [place] - [facility], Allergy Address [address] [address] Assessment No assessment recorded. Plan of Treatment [...] Abnormal Flag Note LastModifiedBy Organization Detail LastModifiedTime 10/02/19 24 05/11/2018 imagi ng/di agnos tic resul t No observ ation record ed. [email or web address] Not Available 12:58:23 10/02/19 24 01/25/2023 imagi ng/di agnos tic resul t No observ ation record ed. [email or web address] Not Available 12:58:24 11/20/19 24 10/02/2023 CT, face, w/o contr ast No observ ation record ed. [email or web address] Not Available 11/26 10:15:02 11/20/19 24 11/02/2023 XR, abdom en, 2 or more views + XR, chest , 1 view No observ ation record ed. [email or web address] Not Available 11/26 10:15:02 11/20/19 24 10/02/2023 CT, face, w/o contr ast No observ ation record ed. [email or web address] Not Available 11/26 10:15:02 Result Notes None recorded. Problems Name Problem SNOMED Code Status Onset Date Resolution Date Notes Provider Name and Address Organization Details Recorded Time Bilateral tinnitus [id number] 02 Active 2015 Tinnitus, bilateral ; Note: Date Diagnosed : 06/22/2015 2:10 PM (H93.13) Not Available [facility] 4 02:46:51 Otitis externa of bilateral ears [id number] 99419 Active 2015 Other otitis externa, bilateral ; Note: Date Diagnosed : 05/12/2015 12:59 AM (H60.8X3) Not Available [facility] 4 02:46:49 Dizziness and giddiness 437107880 Active 2015 Dizziness and giddiness ; Note: Date Diagnosed : 06/22/2015 2:10 PM (R42) Not Available [facility] 4 02:46:50 Arthralgi a of temporoma ndibular joint 79971066 Active 2015 Arthralgi a of temporoma ndibular joint; Note: Date Diagnosed : 05/12/2015 12:58 AM (M26.62) Not Available [facility] 4 02:46:52 Impacted cerumen in right ear 50737671340 52186 Active 2017 Impacted cerumen, right ear; Note: Date Diagnosed : 03/06/2017 4:03 PM (H61.21) Not Available [facility] 4 02:46:52 Sensorine ural hearing loss of bilateral ears 949994853 Active 2015 Sensorine ural hearing loss, bilateral ; Note: Date Diagnosed : 06/22/2015 2:10 PM (H90.3) Not Available [facility] 4 02:46:54 Impacted cerumen of bilateral ears 48202850577 82828 Active 2016 Impacted cerumen, bilateral ; Note: Date Diagnosed : 08/08/2016 2:34 PM (H61.23) Not Available [facility] 4 02:46:56 Diffuse otitis externa 81198363 Active 2018 Diffuse otitis externa, right ear; Note: Date Diagnosed : 02/25/2018 4:53 PM (H60.311) Not Available [facility] 4 02:46:56 Nasal congestio n 34387008 Active 2023 JUAN PABLO KABA MD 100 [facility],[place] [address], [place], [address] , [facility] - [facility] 4 21:32:56 Foreign body in right ear [id number] 322392 Active 2023 JUAN PABLO KABA MD 100 [facility] [address], [place], [address] , [facility] [place] 21:33:01 Problem Notes None recorded. Procedures Surgical History Date Name Laterality Status Provider Name and Address Organization Details Recorded Time Removal of foreign body from ear canal completed JUAN PABLO KABA MD 100 [facility],[place] [address], [place], [address], [facility] 10/07/2023 21:35:30 Imaging Results Imaging Date Name Status LastModified by [facility] Details LastModified Time 05/11/2018 imaging/diagn ostic result completed Information not available 10/02/2023 12:58:23 01/25/2023 imaging/diagn ostic result completed Information not available 10/02/2023 12:58:24 10/02/2023 CT, face, w/o contrast completed Information not available 11/27/2023 10:15:02 11/02/2023 XR, abdomen, 2 or more views + XR, chest, 1 view completed Information not available 11/27/2023 10:15:02 10/02/2023 CT, face, w/o contrast completed Information not available 11/27/2023 10:15:02 Procedure Notes None recorded. Medical Equipment None Reported. Medications Name Sig Start Date Stop Date Status Note LastModified by Organization Details LastModified Time multivita min tablet active Not Available Not Available Not Available amoxicill in 500 mg capsule active Not Available Not Available Not Available mineral oil oral 2015 active Medicati on ID: [id number] D uration Value: 23 Brand Name: mineral oil Send Method: E-Prescr ibed Sub s Allowed: subs OK Medic ationGen ericName : mineral oil Not Available Not Available Not Available metformin 500 mg tablet active Not Available Not Available Not Available acetamino phen 325 mg tablet active Not Available Not Available No t Available prednison e 10 mg tablet 4 TABS ORALLY DAILY X4 DAYS, 2 TABS X2 DAYS,THE N 1 TAB X2 DAYS,THE N 1/2 TAB X2 DAYS.ESTHER E W/BREAKF AST active Not Available Not Available No t Available benztropi ne 0.5 mg tablet active Not Available Not Available Not Available naproxen 375 mg tablet 2015 active Medicati on ID: [id number] D uration Value: 5 Brand Name: naproxen Send Method: E-Prescr ibed Sub s Allowed: subs OK Medic ationGen ericName : naproxen Not Available Not Available Not Available ropinirol e 1 mg tablet active Not Available Not Available Not Available clindamyc in HCl 300 mg capsule 1 capsule by mouth active Not Available Not Available No t Available albuterol sulfate 2.5 mg/3 mL (0.083 %) solution for nebulizat ion active Not Available Not Available Not Available Vitamin C 500 mg tablet active Not Available Not Available Not Available trazodone 50 mg tablet active Not Available Not Available Not Available cefpodoxi me 200 mg tablet TAKE 1 TABLET BY MOUTH 2 TIMES A DAY FOR 5 DAYS. active Not Available Not Available No t Available azithromy zeynep 250 mg tablet active Not Available Not Available No t Available ibuprofen 800 mg tablet active Not Available Not Available Not Available fluconazo le 150 mg tablet PLEASE SEE ATTACHED FOR DETAILED DIRECTIO NS active Not Available Not Available No t Available ranitidin e 300 mg tablet 2015 active Medicati on ID: [id number] D uration Value: 30 Brand Name: ranitidi ne HCl Send Method: E-Prescr ibed Sub s Allowed: subs OK Medic ationGen ericName : ranitidi ne HCl Not Available Not Available Not Available risperido ne 4 mg tablet active Not Available Not Available Not Available sumatript an 100 mg tablet active Not Available Not Available Not Available prednison e 20 mg tablet TAKE 2 TABLETS BY MOUTH EVERY DAY FOR 4 DAYS . TAKE WITH FOOD active Not Available Not Available No t Available sertralin e 100 mg tablet 02/25 completed Medicati on ID: [id number] D uration Value: 30 Brand Name: sertrali ne Send Method: E-Prescr ibed Sub s Allowed: subs OK Medic ationGen ericName : sertrali ne Not Available Not Available Not Available prednison e 5 mg tablet active Not Available Not Available Not Available quetiapin e 200 mg tablet 02/25 completed Medicati on ID: [id number] D uration Value: 30 Brand Name: quetiapi ne Send Method: E-Prescr ibed Sub s Allowed: subs OK Medic ationGen ericName : quetiapi ne Not Available Not Available Not Available metronida zole 500 mg tablet active Not Available Not Available No t Available melatonin 3 mg tablet active Not Available Not Available Not Available fexofenad ine 180 mg tablet active Not Available Not Available No t Available ciproflox acin 500 mg tablet 03/07 completed Medicati on ID: [id number] D uration Value: 10 Prescri bed By Name: CELIO Herrera nd Name: ciproflo xacin HCl Send Method: E-Prescr ibed Sub s Allowed: subs OK Speci al Instruct ion: 1 po BID for 10 days Med ication enericNa me: ciproflo xacin HCl Not Available Not Available Not Available aspirin 81 mg tablet,de layed release active Not Available Not Available Not Available tramadol 50 mg tablet 02/25 completed Medicati on ID: [id number] D uration Value: 30 Brand Name: tramadol Send Method: E-Prescr ibed Sub s Allowed: subs OK Speci al Instruct ion: TAKE 2 TABLETS BY MOUTH 3 TIMES A DAY Medi cation nericNam e: tramadol Not Available Not Available Not Available acetamino phen 500 mg tablet TAKE 1 TO 2 TABLETS BY MOUTH EVERY 6 HOURS NEEDED FOR PAIN. NO MORE THAN 6 TABLETS DAILY active Not Available Not Available No t Available risperido ne 3 mg tablet active Not Available Not Available Not Available Sudogest 30 mg tablet active Not Available Not Available Not Available pantopraz ole 20 mg tablet,de layed release active Not Available Not Available Not Available Vitamin C 250 mg chewable tablet active Not Available Not Available Not Available carbamaze pine ER 400 mg tablet,ex tended release,1 2 hr active Not Available Not Available Not Available meloxicam 7.5 mg tablet TAKE 1 TABLET BY MOUTH TWICE DAILY FOR 14 DAYS. active Not Available Not Available No t Available oxycodone -acetamin ophen 5 mg-325 mg tablet active Not Available Not Available Not Available ofloxacin 0.3 % ear drops INSTILL 5 DROPS BY EACH EAR ROUTE 2 TIMES A DAY FOR 7 DAYS. active Not Available Not Available No t Available estradiol 1 mg tablet active Not Available Not Available Not Available methotrex ate sodium 2.5 mg tablet active Not Available Not Available Not Available gabapenti n 800 mg tablet active Not Available Not Available Not Available meclizine 25 mg tablet active Not Available Not Available Not Available ascorbic acid (vitamin C) 250 mg tablet active Not Available Not Available Not Available carbamaze pine ER 200 mg tablet,ex tended release,1 2 hr 2015 active Medicati on ID: [id number] D uration Value: 30 Brand Name: carbamaz epine Se nd Method: E-Prescr ibed Sub s Allowed: subs OK Medic ationGen ericName : carbamaz epine Not Available Not Available Not Available cephalexi n 500 mg capsule TAKE 1 CAPSULE BY MOUTH THREE TIMES A DAY FOR 3 DAYS active Not Available Not Available No t Available pantopraz ole 40 mg tablet,de layed release active Not Available Not Available Not Available lisinopri l 10 mg tablet active Not Available Not Available Not Available lidocaine 5 % topical patch active Not Available Not Available Not Available fluticaso ne 500 mcg-salme terol 50 mcg/dose blistr powdr for inhalatio n active Not Available Not Available Not Available progester one micronize d 200 mg capsule 2015 active Medicati on ID: [id number] D uration Value: 12 Brand Name: progeste keya microniz ed Send Method: E-Prescr ibed Sub s Allowed: subs OK Medic ationGen ericName : progeste keya microniz ed Not Available Not Available Not Available docusate sodium 100 mg capsule active Not Available Not Available Not Available gabapenti n 300 mg capsule active Not Available Not Available Not Available lidocaine HCl 2 % mucosal solution active Not Available Not Available Not Available diclofena c sodium 75 mg tablet,de layed release active Not Available Not Available Not Available folic acid 1 mg tablet active Not Available Not Available Not Available monteluka st 10 mg tablet active Not Available Not Available Not Available Dairy-Aid 3,000 unit tablet active Not Available Not Available Not Available mupirocin 2 % topical ointment APPLY TO AFFECTED AREA 3 TIMES A DAY active Not Available Not Available No t Available gabapenti n 100 mg capsule 02/25 completed Medicati on ID: [id number] D uration Value: 30 Brand Name: gabapent in Send Method: E-Prescr ibed Sub s Allowed: subs OK Medic ationGen ericName : gabapent in Not Available Not Available Not Available lorazepam 1 mg tablet 1 tablet by mouth active Not Available Not Available No t Available epinephri ne 0.3 mg/0.3 mL injection , auto-inje ctor active Not Available Not Available Not Available ibuprofen 600 mg tablet active Not Available Not Available Not Available levofloxa zeynep 500 mg tablet active Not Available Not Available No t Available levofloxa zeynep 750 mg tablet active Not Available Not Available No t Available methylpre dnisolone 4 mg tablets in a dose pack active Not Available Not Available Not Available albuterol sulfate HFA 90 mcg/actua tion aerosol inhaler active Not Available Not Available Not Available ondansetr on 4 mg disintegr ating tablet active Not Available Not Available Not Available topiramat e 100 mg tablet active Not Available Not Available Not Available sertralin e 50 mg tablet active Not Available Not Available Not Available dicyclomi ne 10 mg capsule active Not Available Not Available Not Available prazosin 2 mg capsule active Not Available Not Available Not Available vitamin B complex capsule active Not Available Not Available Not Available diazepam 5 mg tablet 2015 active Medicati on ID: [id number] D uration Value: 30 Brand Name: diazepam Send Method: E-Prescr ibed Sub s Allowed: subs OK Medic ationGen ericName : diazepam Not Available Not Available Not Available amoxicill in 875 mg-potass ium clavulana te 125 mg tablet 05/29 completed Medicati on ID: [id number] D uration Value: 20 Reason: () Brand Name: amoxicil violet-pot clavulan ate Send Method: E-Prescr ibed Sub s Allowed: subs OK Medic ationGen ericName : amoxicil violet-pot clavulan ate Not Available Not Available Not Available oxycodone 5 mg tablet active Not Available Not Available Not Available neomycin- polymyxin -hydrocor t 3.5 mg-10,000 unit/mL-1 % ear drops,shakeel p SHAKE LIQUID AND INSTILL 4 DROPS TO AFFECTED EAR THREE TIMES DAILY active Not Available Not Available No t Available azithromy zeynep 500 mg tablet TAKE 1 TABLET BY MOUTH EVERY DAY FOR 5 DAYS active Not Available Not Available No t Available Saline Nasal 0.65 % spray aerosol active Not Available Not Available Not Available aripipraz ole 10 mg tablet active Not Available Not Available Not Available aripipraz ole 15 mg tablet active Not Available Not Available Not Available Xolair 150 mg subcutane ous solution 2015 active Medicati on ID: [id number] D uration Value: 28 Brand Name: Xolair S end Method: E-Prescr ibed Sub s Allowed: subs OK Medic ationGen ericName : Xolair Not Available Not Available Not Available Ciprodex 0.3 %-0.1 % ear drops,shakeel pension 4 drop into both ears 2015 active Medicati on ID: [id number] D uration Value: 7 Prescri bed By Name: Juan Pablo mancini MD Brand Name: Ciprodex Send Method: E-Prescr ibed Sub s Allowed: subs OK Medic ationGen ericName : Ciprodex Not Available Not Available Not Available epinastin e 0.05 % eye drops active Not Available Not Available No t Available topiramat e 50 mg tablet active Not Available Not Available Not Available Spiriva with HandiHale r 18 mcg and inhalatio n capsules 2015 active Medicati on ID: [id number] D uration Value: 30 Brand Name: Spiriva with HandiHal er Send Method: E-Prescr ibed Sub s Allowed: subs OK Medic ationGen ericName : Spiriva with HandiHal er Not Available Not Available Not Available nitrofura ntoin monohydra te/macroc rystals 100 mg capsule active Not Available Not Available Not Available risperido ne 3 mg disintegr ating tablet active Not Available Not Available Not Available cholecalc iferol (vitamin D3) 25 mcg (1,000 unit) tablet active Not Available Not Available Not Available FeroSul 325 mg (65 mg iron) tablet active Not Available Not Available Not Available butalbita l-acetami nophen-ca ffeine 50 mg-300 mg-40 mg capsule 2015 active Medicati on ID: [id number] D uration Value: 20 Brand Name: butalbit al-aceta minophen -caff Se nd Method: E-Prescr ibed Sub s Allowed: subs OK Medic ationGen ericName : butalbit al-aceta minophen -caff Not Available Not Available Not Available Incruse Ellipta 62.5 mcg/actua tion powder for inhalatio n active Not Available Not Available Not Available Taltz Autoinjec tor 80 mg/mL subcutane ous active Not Available Not Available Not Available Humira(CF ) Pen 40 mg/0.4 mL subcutane ous kit active Not Available Not Available Not Available Xolair 75 mg/0.5 mL subcutane ous syringe active Not Available Not Available Not Available Xolair 150 mg/mL subcutane ous syringe active Not Available Not Available Not Available Tab-A-Vit e 400 mcg tablet active Not Available Not Available Not Available Vitals None Recorded Social History None recorded. Functional Status None recorded. Mental Status None recorded. Family History Relationship Description Onset Age of this Age Resolved Age Notes LastModified by Organization Details LastModified Time Father No current problems or disability [email or web address] Not available 09/13 21:28:46 Mother No current problems or disability [email or web address] Not available 09/13 21:28:46 Medical History Condition Response Anxiety Y Migraines Y Depression Y Asthma Y Hypertension Y Gynecological HistoryNo gynecological history recorded. Obstetrics History GPAL:G 0 P 0 0 0 0 Past Encounters Encounter ID Performer Location Encounter Start Date Encounter Closed Date Diagnosis/Indication Diagnosis SNOMED-CT Code Diagnosis ICD10 Code Diagnosis Note [id number] JUAN PABLO KABA MD [facility] on [address] [place] [phone] 10/02/2023 09:52:16 10/02/2023 12:00:59 Foreign body in right ear [id number] T16.1XXA Nasal congestion 3823084 0 R09.81 63-year-ol d female presents today for evaluation of nasal abscess which was noted on CT scan in January 2023. She has had some mild pain in this area. Physical exam does not reveal any erythema, ulceration , perforatio n, fluctuance . It appears that the abscess is healed. She may follow-up for any acute change in symptoms.I ncidentall y noted on exam is a right ear foreign body which appears to be part of her hearing aid. This was removed and tolerated well and she had subjective improvemen t in her hearing. She may follow-up as needed. Health Concerns Section Related Observation LastModified by Organization Detai ls LastModified Time None Recorded Concern Status LastModified by Organization Details LastModified Time None Recorded Advance Directives Directive None Recorded Payers Encounter Date Sequence Insurance Name Policy Number Policy Valdez Covered Member ID Valdez Member ID Guarantor Name 10/02/2023 1 [facility] - DOS ON OR AFTER 2022 - MEDICARE [place]VANTAGE [place]MEDICARE REPLACEMENT/ADV ANTAGE - PPO) Elizabeth Huang [id number] Elizabeth Huang Notes Date Note Type Note Provider Name and Address Organization Details Recorded Time 10/02/2023 text/html 63-year-old rolo carrington presents today for evaluation of nasal abscess. It is not clear why she is here today as she was treated for this in January. She had a CT scan showing a phlegmon/poorly organized abscess versus necrotic lesion overlying the anterior maxillary spine with likely extension to the cartilaginous nasal septum she was treated with antibiotics. She notes some mild pain. No epistaxis. JUAN PABLO KABA MD [address] [place] [address], [place], [address], [facility] - [facility] 10/07/2023 21:36:00 OBGyn Episode No OBEpisode recorded.
--- OUTSIDE RECORDS SUMMARY | 2024-03-10 17:58 | XMS_ITS | Referral Summary ---
Author Organization [facility] Address [address] [place] [address] Care Team Providers Care Manager Php Name Role Phone SteveClare Annemarie Primary Care Provider [phone] Encounters Date Type Department Care Team Description 03/05/[address] [address] Telephone Intake, Staff PAC Dr. Minor_ Left shoulder rotatorcuff_ PostOP 02/28/[address] [address] Telephone Intake, Staff pac- post op-Iván 01/31/2024 Orders Only [address] [address] Mason Montesinos MD 01/31/2024 11:15 AM EST Follow-Up [address] [address] Luis Minor MD Left shoulder pain, unspecified chronicity (Primary Dx) 01/21/2024 Orders Only [facility] [address] [place] [address] Luis Minor MD 01/20/2024 Telephone [facility] [address] [place] [address] Abbey Dutta MD 01/19/2024 Telephone [facility] [address] [place] [address] Nael Chang MD PhD 01/16/2024 Orders Only [facility] [address] [place] [address] Jesus Gillis MD 01/16/2024 2:50 PM EST - 01/16/2024 4:55 PM EST Surgery [employer] [facility] [address] [place] [address] Luis Minor MD ARTHROSCOPY, SHOULDER, SURGICAL;?? WITH ROTATOR CUFF REPAIR [[id number] (CPT??)] 01/16/2024 2:50 PM EST Hospital Encounter from Last 3 Months Allergies Active Allergy Reactions Criticality Noted Date [...] mellitus 12/05/2021 Hearing loss 12/05/2021 Overview (12/05/2021): [facility] audiology History of total hysterectom y with bilateral salpingo-oophorectomy (BSO) 12/05/2021 Lower urinary tract infectious disease 2 Menopausal syndrome 12/05/2021 Obesity 12/05/2021 Osteoarthritis 12/05/2021 Pelvic pain in female 12/05/2021 Pernicious anemia 12/05/2021 Posttraumatic stress disorder 12/05/2021 Respiratory abnormalities 12/05/2021 Shoulder pain 12/05/2021 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 Overview (12/05/2021): Asthma Asthma Last Assessment & Plan: No acute symptoms, continue outpatient medications Seasonal allergic rhinitis 06/16/2013 Overview (12/05/2021): Allergic rhinitis Social History Tobacco Use Types Packs/Day Years [...] Info) Description 03/20/2024 2:15 PM EST Follow-Up [facility] [address] [place] [id number] Luis Minor MD [address] [place] [id number] Medical Devices Implanted Type Area Embossing Toolsetter Device Identifier Shelf Expiration Date Model / Serial / Lot [place] Suture Double Loaded With White/Blue White/Black Suturetape [employer] - [id number] Implanted:Qty: 1 on 04/02/2020 by Luis Minor MD at [facility] Implant Right: Shoulder [employer] 01/11/2023 [id number] / / [id number] Procedures * Due to [place] Ald[place] law, this organization might not be sharing negative HIV tests. Procedure Name Priority Date/Time Associated Diagnosis Comments XR SHOULDER 2+ VW LEFT Routine 01/31/2024 11:41 AM EST Left shoulder pain, unspecified chronicity from Last 3 Months Results * Due to [place] Ald[place] law, this organization might not be sharing [...] obtain the completed interpretation. ? Workstation ID: [id number] Narrative 02/01/2024 5:52 PM EST COMPARISON: 07/15/2022. Resulting Agency Comment [id number] Procedure Note Johnson Bose MD - 02/01/2024 [...] possible to obtain thecompleted interpretation. Workstation ID: [id number] us Luis Minor MD IMG XR PROCEDURES Final Resul t from Last 3 Months Insurance [facility] [place] [id number] Advance Directives * Full Code (Latest Code Status on File) Date Activated Date Inactivated Comments 04/02/2020 10:29 AM 04/02/2020 6:36 PM Healthcare Agents on File Name Relationship Healthcare Agent Relationshi p Communication Pilar Olvera Sister Next of Kin [phone] (Kamala griffin) Care Teams Manager Php Relationship Specialty Start Date End Date Clare Wilson [address] [place] [phone] PCP - General Family Medicine 09/10/23
--- OUTSIDE RECORDS SUMMARY | 2024-03-10 17:59 | XMS_ITS | Data Portability ---
Author Organization [employer] Address [address] [place] [id number] Care Team Providers Care Project Manager Industrial Name Role Phone HIM CCA OTHER Assessment Encounter Date Assessment Date Assessment LastModified by Organization Details LastModified Time 02/10/2024 02/10/2024 I provided real -time medical direction via phone for this encounter and was available for additional phone-based assistance as needed. I have reviewed and agree with the Assessment and Plan as documented by the Bat Boy/Girl. Patient given the opportunity to ask questions. Our service contacted for an assessment of: abd pain As per above, patient not feeling well for several days. States everyone is sick in the building. Denies F/C/CP/SOB/CONDON. C/o some URI and urinary symptoms however does not endorse any flank, suprapubic pain, frequency, urgency, N/V/diarrhea, or constipation. Eating and drinking normally. Per account director on the scene, VSS, AF. Non-focal exam. [...] or worsening serious symptoms, particularly fever chills Not available 02/11/2024 09:20:48 02/28/2024 02/28/2024 As noted, we wer e called to see this patient regarding concerns of sore throat. Evaluation in the field was performed by my account director colleague, as noted above, I provided real-time [...] of breath. [email or web address] Not available 02/28/2024 14:31:34 03/05/2024 03/05/2024 I provided real -time medical direction via phone for this encounter and was available for additional phone-based assistance as needed. I have reviewed and agree with the Assessment and Plan as documented by the Bat Boy/Girl. Patient given the opportunity to ask questions. [...] improvements and she has also been taking haiu-pqi-elitycz medications. She denies shortness of breath, dyspnea on exertion, chest pain. She denies fever or chills. Per account director on the scene, vital signs vital signs [...] or worsening serious symptoms, particularly fever chills Not available 03/05/2024 16:46:41 Plan of Treatment Reminders Order Date Submit Date Provider Last Modified By Organization Details Last Modified Time Details Appointments None recorded. Lab culture, urine 2023 024 [place] [facility], [address], [place], [address], 4 18:05:32 urinalysis, dipstick 2023 024 [place] [facility], [address] [place] [address], [address], 4 19:59:34 rapid SARS CoV 2 Ag, QL IA, respiratory specimen 2024 025 [email or web address] [facility] [address] [place] [address], [id number], 5 13:54:02 rapid flu (A+B) 2024 025 [email or web address] [facility], [address] [place] [address], [address], 5 13:54:02 rapid strep group A, throat 2024 025 [employer] [facility], [address] [place] [address], [address], 5 13:54:02 Referral None recorded. Procedures None recorded. Surgeries None recorded. Imaging None recorded. Medication Orders ketorolac 30 mg/mL injection solution [email or web address] [facility], [address] [place] [address], [address], 4 18:40:24 ketorolac 30 mg/mL injection solution 2024 025 [email or web address] [address] [place] [address], [address], 5 20:19:13 Patient TargetsNo targets recorded. Patient InstructionsNo instructions recorded. Reason for Referral None Reported. Results Created Date Observation Date Name Description Value Unit Range Abnormal Flag Note LastModifiedBy Organization Detail LastModifiedTime 02/10/20 24 02/11/2024 URINA LYSIS , ROUTI NE specific gravity TNP Test not perfo rmed. [place] top urine tube is for urine cultu re and is not suita ble for urina lysis . Not Available [facility] ([facility]) [address] [facility], [place], [address], 02/11/2024 12:05:44 02/10/20 24 02/11/2024 URINA LYSIS , ROUTI NE pH TNP Test not perfo rmed Not Available [facility] ([facility]) [address] [place], [address], 02/11/2024 12:05:44 02/10/20 24 02/11/2024 URINA LYSIS , ROUTI NE urine-color NETWORK OPERATIONS TECHNICIAN Not Available [facility] ([facility]) [address] [place], [address], 02/11/2024 12:05:44 02/10/20 24 02/11/2024 URINA LYSIS , ROUTI NE appearance NETWORK OPERATIONS TECHNICIAN Not Available [facility] ([facility]) [address] [place], [address], 02/11/2024 12:05:44 02/10/20 24 02/11/2024 URINA LYSIS , ROUTI NE WBC esterase NETWORK OPERATIONS TECHNICIAN Not Available [facility]) [address] [place], [address], 02/11/2024 12:05:44 02/10/20 24 02/11/2024 URINA LYSIS , ROUTI NE protein TNP Test not perfo rmed Not Available [facility] ([facility]) [address] [facility], [place], [address], 02/11/2024 12:05:44 02/10/20 24 02/11/2024 URINA LYSIS , ROUTI NE glucose TNP Test not perfo rmed Not Available [facility] ([facility]) [address] [facility], [place], [address], 02/11/2024 12:05:44 02/10/2002/11/2024 URINA LYSIS , ROUTI NE ketones TNP Test not perfo rmed Not Available [facility] ([facility]) [address] [facility], [place], [address], 02/11/2024 12:05:44 02/10/20 24 02/11/2024 URINA LYSIS , ROUTI NE occult blood NETWORK OPERATIONS TECHNICIAN Not Available [facility] ([facility]) [address] [facility], [place], [address], 02/11/2024 12:05:44 02/10/20 24 02/11/2024 URINA LYSIS , ROUTI NE bilirubin NETWORK OPERATIONS TECHNICIAN Not Available [facility] ([facility]) [address] [facility], [place], [address], 02/11/2024 12:05:44 02/10/20 24 02/11/2024 URINA LYSIS , ROUTI NE urobilinogen ,semi-qn NETWORK OPERATIONS TECHNICIAN Not Available [facility] ([facility]) [address] [place], [address], 02/11/2024 12:05:44 02/10/20 24 02/11/2024 URINA LYSIS , ROUTI NE nitrite, urine NETWORK OPERATIONS TECHNICIAN Not Available [facility] ([facility]) [address] [place], [address], 02/11/2024 12:05:44 02/10/20 24 02/11/2024 URINA LYSIS , ROUTI NE microscopic examination NETWORK OPERATIONS TECHNICIAN Not Available [facility]) [address] [facility], [place], [address], 02/11/2024 12:05:44 02/10/20 24 02/11/2024 URINE CULTU RE, ROUTI NE urine culture, routine Final report Not Available [facility] ([facility]) [address] [facility], [place], [address], 02/11/2024 18:05:32 02/10/20 24 02/11/2024 URINE CULTU RE, ROUTI NE result 1 No growth Not Available [facility] ([facility]) [address] [facility], [place], [address], 02/11/2024 18:05:32 Result Notes None recorded. Medical Equipment None [...] Available [facility] 4 03:41:14 2119 Augmentin medicatio n diarrhea Not available low 04/30/2022 55529 2 RxNorm EMELY DHILLON MD [address] [facility],[address], [place], [address], [facility] [employer] [employer] 4 09:58:09 4312 Bactrim medicatio n Not available Not available Not available 02/20/2023 78270 9 RxNorm Not Available [facility] 4 03:41:14 4313 sulfameth oxazole / trimethop rim medicatio n Not available Not available Not available 02/20/2023 37396 RxNorm Marita Ramos MD [address], [place], [address], [employer] 4 14:13:42 4314 doxycycli ne Not available Not available Not available Not available 02/20/2023 3640 RxNorm Not Available [facility] - production 03:41:14 5895 Seroquel medicatio n Not available Not available Not available 09/30/2023 89258 RxNorm EMELY DHILLON MD [address] [place] [address],[address], [place], [address], [employer] 4 18:08:17 5896 fluoxetin e medicatio n Not available Not available Not available 09/30/2023 4493 RxNorm EMELY DHILLON MD [address] [place] [address],[address], [place], [address], [employer] 4 18:08:31 5897 nabumeton e medicatio n Not available Not available Not available 09/30/2023 73596 RxNorm EMELY DHILLON MD [address] [place] [address],[address], [place], [address], [employer] 4 18:08:46 5898 propranol ol medicatio n Not available Not available Not available 09/30/2023 8787 RxNorm EMELY DHILLON MD [address] [place] [address],[address], [place], [address], [employer] 4 18:09:03 7995 Product containin g penicilli n and antibioti c (product) medicatio n Not available Not available Not available 12/11/2023 85212 05 SNOMED Not Available [facility] - production [...] propionate 50 mcg/actuatio n nasal spray,suspen zoe Avenel 1 spray every day by intranasal route. [...] Available Vitals Date Recorded Heart rate Body weight Respiratory rate Oxygen saturation Oxygen saturation in Arterial blood by Pulse oximetry Body height Systolic blood pressure Diastolic blood pressure Provider Name and Address Organization Details Last Updated DateTime 4 78 /min 59323.5 6 g 18 /min 98 % 98 % 154.94 cm 160 mm[Hg] 100 mm[Hg] Not Available [facility] [employer] 4 18:38:52 Date Recorded Body temperature Body weight Respiratory rate Body height Oxygen saturation Oxygen saturation in Arterial blood by Pulse oximetry Heart rate Systolic blood pressure Diastolic blood pressure Provider Name and Address Organization Details Last Updated DateTime 4 98.2 [degF] 28253.1 92 g 18 /min 154.94 cm 99 % 99 % 68 /min 131 mm[Hg] 72 mm[Hg] Not Available [employer] 4 17:37:44 Date Recorded Heart rate Body temperature Respiratory rate Oxygen saturation Oxygen saturation in Arterial blood by Pulse oximetry Systolic blood pressure Diastolic blood pressure Systolic blood pressure Diastolic blood pressure Provider Name and Address Organization Details Last Updated DateTime 5 77 /min 98.2 [degF] 16 /min 98 % 98 % 150 mm[Hg] 40 mm[Hg] 150 mm[Hg] 70 mm[Hg] Not Available [employer] 5 20:57:06 Date Recorded Body weight Respiratory rate Body temperature Heart rate Body height Oxygen saturation Oxygen saturation in Arterial blood by Pulse oximetry Systolic blood pressure Diastolic blood pressure Provider Name and Address Organization Details Last Updated DateTime 5 08408.1 92 g 16 /min 98.5 [degF] 86 /min 154.94 cm 96 % 96 % 115 mm[Hg] 74 mm[Hg] Not Available [employer] 5 13:48:19 Date Recorded Oxygen saturation Oxygen saturation in Arterial blood by Pulse oximetry Body temperature Body weight Heart rate Respiratory rate Systolic blood pressure Diastolic blood pressure Provider Name and Address Organization Details Last Updated DateTime 5 97 % 97 % 98.7 [degF] 52776.1 92 g 68 /min 16 /min 162 [...] SNOMED-CT Code Diagnosis ICD10 Code Diagnosis Note 112 Amisha Huntley MD [facility] [address] [place] [address] 03/31/2021 20:59:17 08/30/2021 11:57:03 Osteoarthritis of right knee joint 0822395324 59879 M17.11 Pain of ri ght knee joint 4855443498 24393 M25.561 1721 Luis Cutler MD [facility] [address] [place] [phone] 07/03/2021 12:08:30 10/26/2021 13:35:38 Urinary tract infectious disease 63580162 N39.0 This order set is for complicate d UTIs -- those with concern for early pyelo, abnormal anatomy, indwelling catheter, or other higher-ris k features. For MDRO options see UTI-MDRO Kidney stone 38387399 N2 0.0 Acute cystitis 06434368 N30.00 These are first-line agents for lower-risk , uncomplica sharmin UTI. For resistance concerns, early pyelo, or other complicati ons, see complicate d UTI 2887 Maryanne Yip MD [facility] [address] [place] [phone] 09/04/2021 13:33:24 10/18/2021 16:29:06 Pain in right foot [id number] 74682 M79.671 Pt p/w acute onset atraumatic foot pain without signs of inflammati on to suggest cellulitis , DVT, fracture, inflammato ry process (gout). DDx overuse injury/OA vs Moncada's neuroma. Recommend RICE and that pt reach out to PCP for podiatry referral. Encouraged to call again if sig change to exam. I have reviewed and agree with the assessment and plan as documented by the account director. I provided real time medical direction for this encounter and was immediatel y available to provide additional phone based assistance as needed. 4782 Luis Cutler MD [facility] [address] [place] [phone] 12/04/2021 16:52:50 12/05/2021 14:55:01 Upper respiratory infection 71170418 J06.9 6649 Amisha Huntley MD [facility] [address] [place] [phone] 02/11/2022 14:16:07 02/14/2022 16:09:43 COVID-19 [id number] U07.1 pat on carbamazep ine expl paxlovid contraindi cated cannot abruptly stop medPat states her rheumatolo gist told her not to be on prednisone before her US of her hand and wrist- does not know time frame - scheduled for 03/13/22. Advised more important to control breathing - can delay/resc hedule US if needed/adv ised to touch base w/ her on Sunday- inform re 5 day course of steroid-pa t responded well to neb -lungs cta- reassure re exam- has refill on her albuterol mdi but pharmacy informed her cannot fill before 02/23- will try and send refill- she requests Rx go to [facility] in [facility] due to holiday weekend( nl uses [facility]) Due to dark green sputum may have bacterial superinfec tion in sinuses or lungs will cover w/ azithromyc in which she reports she tolerates well. Advised Tylenol for pain/ fever has 500 mg caps- can take 1000 mg 3x /24 hrs based on her stated weight [id number] Luis Soto MD [facility] [address] [place] [phone] 02/14/2022 19:31:12 02/16/2022 10:53:42 COVID-19 [id number] U07.1 [id number] Rogelio Vasquez MD [facility] [address] [place] [phone] 02/18/2022 19:38:25 02/20/2022 10:27:07 Acute exacerbation of chronic obstructive pulmonary disease 336879104 J44.1 Wheezing on exam. Was not candidate for anti-viral s for COVID. Prednisone improved symptoms. WIll rx for additional 5 days. COVID-19 929949377 U07.1 Was not candidate for anti-viral s. Prednisone improved symptoms. WIll rx for additional 5 days. 7057 Maryanne Yip MD [facility] [address] [place] [phone] 02/26/2022 16:27:03 02/28/2022 12:34:42 Exacerbation of moderate persistent asthma 709312781 J45.41 Pt with recent COVID infection (now resolved) c/b asthma exacerbati on s/p pred burst now w/ recurrent sx iso likely viral URI w/ prominent sore throat but ongoing cough so low suspicion for strep. Flu and COVID neg. Recommend repeat prednisone burst, albuterol q4hr, and symptomati c mgmt sore throat. Red flag symptoms reviewed, pt instructed to call 911 if condition worsens or new symptoms develop, pt expressed understand ing. I have reviewed and agree with the assessment and plan as documented by the account director. I provided real time medical direction for this encounter and was immediatel y available to provide additional phone based assistance as needed. 7393 Luis Cutler MD [facility] [address] [place] [phone] 03/12/2022 21:49:28 03/14/2022 10:01:04 Postviral cough 367614199 R05.3 As noted, we were called to see this patient regarding concerns of cough and respirator y symptoms following COVID and PNA, treated with cefpodoxim e and possibly also azithro. Evaluation in the field was performed by my account director colleague, as noted above, I provided real-time direction and supervisio n for this visit. The evaluation revealed a non-distre ssed, non-toxic patient with reassuring vital signs other than the respirator y rate, which likely reflects shallow breathing due to her chest wall pain and desire to avoid provoking a coughing fit. Vitals argue against PNA, as do lack of other systemic sx or classic PNA sx (anorexia) and the fact that she's been treated. Other considerat ions, especially effusion, are not suggested by exam and history. Most likely this reflects a post-viral inflammato ry state that will gradually self-resol ve.She has not been using nebs as did not know how to use machine, so hopefully this will help. She mentions tessalon was prescribed but not covered. Impression :_Post-vir al cough on a backdrop of COPD, s/p active treatments and this seems more like slow-resol ving inflammati on. Plan:Reass uranceEduc ation on nebs, use PRN Q4HNo role for abx, I think, as she was already treated; likewise with steroidTes salon and DM not covered and not that effective anywayGood hydration and waitingDis cussed red flags Primary care, considersu pportive call to reassure; other options for cough reduction. Dispositio n: We discussed the diagnostic uncertaint [...] new or worsening serious symptoms, particular ly worsening dyspnea, fever. 7820 Luis Soto MD [facility] [address] [place] [phone] 03/30/2022 16:57:05 04/06/2022 14:01:29 Acute urinary tract infection [id number] N39.0 7909 Mandy Portillo MD [facility] [address] [place] [phone] 04/03/2022 20:15:34 04/06/2022 15:58:00 Viral upper respiratory tract infection 951573999 J06.9 8239 Maryanne Yip MD [facility] [address] [place] [phone] 04/16/2022 13:22:29 04/18/2022 09:19:04 Productive cough 45543827 R05.9 Evaluation in the field was performed by my account director colleague, as noted above, I provided real-time direction and supervisio n for this visit. 61yo F with PMHx COPD, recent COVID infection s/p multiple pred bursts for post-viral cough p/w recurrence of productive cough a/w malaise and diarrhea. VS reassuring w/ sat 94% RA iso COPD, no tachycardi a. COVID and flu negative today. Exam w/ rhonchi that clear w/ cough. Not meeting criteria for COPD exac (increase sputum only), most c/w viral syndrome. Recommend symptomati c mgmt w/ standing nebs, mucinex, cough suppressan t and re-eval if worsening or not improving. We discussed the diagnostic uncertaint y of home visits and the risk associated with this. In this case, the patient and I felt this to be an acceptable and reasonable amount of risk given the benefit of avoiding an ED visit. We discussed the need to seek care urgently/e mergently in the setting of any new or worsening serious symptoms, including shortness of breath, cough, chest pain, fever. 8475 Mandy Portillo MD [facility] [address] [place] [phone] 04/24/2022 18:57:17 04/26/2022 10:49:34 Flank pain 339155079 R10.9 8654 Amisha Huntley MD [facility] [address] [place] [phone] 04/30/2022 18:17:58 05/02/2022 09:44:42 Pain of right shoulder joint 2836192409 4394938 M25.511 pat had nl renal function 03/02/22( Bun 22/ cr.5- per old record)-on ly on baby asa- no other anticoagul ants-has had ketorolac in the past- has no tylenol at home- will send RX. Medic fashioned sling for her. Advised ice / wrapped in a towel q 3-4H w/a to affected area- Advised to call her ortho tomorrow am for re eval- aware may need imaging- she verbalized understand ing of instructio ns 6102 Rogelio Vasquez MD [facility] [address] [place] [phone] 05/21/2022 19:11:05 05/22/2022 10:54:13 Paronychia of finger of right hand [id number] 8969611 L03.011 No s/s of cellulitis . Advised to do warm soaks and if persistent pain to go to PCP for removal of potential ingrown nail 9550 Mandy Portillo MD [facility] [address] [place] [phone] 05/29/2022 18:58:29 05/30/2022 11:45:45 Pain in right thumb 2660291392 725634 M79.644 [id number] Maryanne Yip MD [facility] [address] [place] [phone] 06/17/2022 12:55:35 06/19/2022 10:39:24 Thoracic back pain 813600346 M54.6 Evaluation in the field was performed by my account director colleague, as noted above, I provided real-time direction and supervisio n for this visit. 61yo F with PMHx prior pleural effusion per report unclear etiology who p/w atraumatic upper R sided back pain, worse w/ certain head positions. Exam notable for ?pleural rub and mild TTP w/o clear muscle spasm. VS reassuring w/ normal sat, afebrile. DDx includes muscle strain vs pleural effusion vs other cause pleuritis. Recommend symptomati c tx ibuprofen prn and non-emerge nt chest imaging through PCP, encouraged to call office Sunday to arrange. If sx worsen or fail to improve recommend ED eval. We discussed the diagnostic uncertaint y of home visits and the risk associated with this. In this case, the patient and I felt this to be an acceptable and reasonable amount of risk given the benefit of avoiding an ED visit. We discussed the need to seek care urgently/e mergently in the setting of any new or worsening serious symptoms, shortness of breath, cough, chest pain, fever. [id number] Kindra Wright MD [facility] [address] [place] [phone] 07/03/2022 20:06:35 07/04/2022 15:03:54 Rheumatoid arthritis 47704635 M06.9 [id number] Luis Cutler MD [facility] [address] [place] [phone] 07/08/2022 12:56:39 07/10/2022 18:48:54 Pain 46036030 R52 As noted, we were called to see this patient regarding concerns of pain in rib and with inspiratio n subsequent to fall. Evaluation in the field was performed by my account director colleague, as noted above, I provided real-time direction and supervisio n for this visit. The evaluation revealed known fractures and an uncomforta ble appearing patient with low O2 sat and diminished breath sounds L side. After nebulizer and with some encouragem ent, she was able to inspire more deeply and O2 sat kylee to 96% on RA, though this was uncomforta ble. Breath sounds were much better with some wheeze and good air entry heard. Pt currently taking oxycodone 5 mg Q6 PRN and tylenol 500x2 TID PRN, and taking these reliably, but still has bothersome pain. Also has lidoderm patch. Impression :Traumatic rib pain despite two meds. Not much more we can add but reasonable to give toradol now and rx for celecoxib for short-term use, which is safer than other NSAIDs due to PHAM-2 selectivit y. Plan:IM toradol 30 mg givencelec oxib 100 mg QD PRN, along with other medsCounse led on red flags and when to seek care, and on using incentive spirometer at least hourly Primary care, considerch asim-in call Sunday and other pain control considerat ions Dispositio n: We discussed the diagnostic uncertaint [...] new or worsening serious symptoms, particular ly confusion, fever, worsening dyspnea, LH, or anything unusual. Fracture of rib [id number] S22.32XA [id number] TOÑITO VARELA MD [facility] [address] [place] [phone] 07/09/2022 13:21:31 07/10/2022 19:03:27 Rib pain [id number] R07.81 [id number] Elizabeth Victoria MD [facility] [address] [place] [phone] 0 07/11/2022 20:04:39 07/12/2022 09:35:01 Chronic obstructive pulmonary disease 73159524 J44.9 [id number] Yuliya Maldonado MD [facility] [address] [place] [phone] 0 07/16/2022 16:26:39 07/26/2022 10:17:58 Rib pain 398505991 R07.81 case supervised and discussed with account director. Patient was given opportunit y to ask questions, warning signs/symp toms of pertinent medical emergency reviewed. mechanical fall several weeks ago, seen at two different [facility] without identified etiology on imaging (xrays, no fractures) but prescribed oxycodone. Continues to experience excruciati ng pain, reproducib le on palpation. Explained to patient that [facility] does not have any imaging capabiliti es for diagnostic purposes, so wont be able to provide much additional insight to the etiology of her acute pain. Pt adamant she wanted a diagnosis JERMAINE and additional therapeuti cs, for which I explained she would have to present to the ED. Pt requested account director call ambulance. [id number] Abida Mcleod MD [facility] - [address] [phone] 08/27/2022 13:28:03 08/28/2022 12:04:02 Urinary symptoms [id number] R39.9 61 year old female being evaluated for urinary symptoms for the last 3 days. Patient reports pain with urination, along with flank pain. Patient reports having UTI's every few months, does not recall the medication she receives. Exam notable for normal vital signs, positive CVA tenderness with radiation down her leg, POC urinalysis notable for positive leukocytes . Presentati on suggestive of possible recurrent UTI, will defer treatment until culture results given patient clinically stable (CVA tenderness with radiation down leg may signify underlying lumbar radiculopa thy rather than brewing pyelonephr itis), and is at risk of MDR with multiple medication allergies. Tylenol prn in the interim for pain, advised to notify team if glenda a fever or develops new symptoms before culture data are available. [id number] Mandy Portillo MD [facility] - [address] [phone] 08/27/2022 18:13:48 08/28/2022 10:29:08 Pain [id number] R52 [id number] Amisha Huntley MD [address] [phone] 09/04/2022 11:12:04 09/04/2022 16:13:04 Sinus headache [id number] R51.9 Patient is already taking Johanny and she states she took Sudafed at 8 AM which helped. I advised caution with Kp with a history of hypertensi on as it can exacerbate her HTN. I advised warm compresses to her face several times a day in addition to the medication she is taking, do not exceed 3 g of Tylenol per 24 hours.-We will add brief course of Motrin for pain relief. she denies having other nsaids in home- has had previously - is on methotrexa te. (ADDENDUM- 09/06/22 phone call to pharmacy- requested not to refill motrin due to methotrexa te) Given that she is afebrile with only clear nasal discharge I do not feel that antibiotic s are indicated at this time which I discussed with the patient [id number] Maryanne Yip MD [facility] - [facility] [address] [place] [phone] 09/11/2022 19:18:28 09/11/2022 23:12:11 Contact dermatitis [id number] L25.9 Evaluation in the field was performed by my account director colleague, as noted above, I provided real-time direction and supervisio n for this visit. 62yo F recently started on benztropin e p/w localized erythemato us patches on L forearm, pruritic, no other signs of systemic allergic reaction, rash not c/w hives as not raised. VS reassuring . Most c/w contact dermatitis of unclear trigger. Trial topical steroid. If no improvemen t or develops lesions on mucous membranes or more diffusely recommend re-evaluat ion. We discussed the diagnostic uncertaint y of home visits and the risk associated with this. In this case, the patient and I felt this to be an acceptable and reasonable amount of risk given the benefit of avoiding an ED visit. We discussed the need to seek care urgently/e mergently in the setting of any new or worsening serious symptoms, shortness of breath, cough, chest pain, fever. [id number] Yuliya Maldonado MD [facility] - [facility] [address] [place] [phone] 09/23/2022 17:13:29 09/26/2022 15:32:41 Pain in throat [id number] R07.0 1-2 d sore throat iso increased exposure to high volume AC. Strep negative. Some possible sick contacts. No fevers/chi lls or other infectious sx on exam or history. takes johanny bid, endorses post nasal drip but states that any nasal spray gives her a head ache. Dicsussed monitoring and supportive care with tea/honey etc. Warning signs/sx reviewed, pt and account director agree with plan. [id number] Liam Cheung MD [facility] - [facility] [address] [place] [phone] 0 09/24/2022 13:32:56 09/26/2022 15:37:52 Acute pharyngitis [id number] J02.9 Patient with pharyngiti s/laryngit is. No signs of bacterial superinfec tion. POC COVID and Strep neg. Advised continued supportive care. [id number] Amisha Huntley MD [facility] - [facility] [address] [place] [phone] 0 09/30/2022 18:28:05 10/02/2022 07:15:34 Acute exacerbation of chronic obstructive pulmonary disease [id number] J44.1 With possible minor URIadvised to use her albuterol neb while feeling ill every 4 hours. Will trial short course of prednisone . Lungs clear after DuoNeb.I offered Tessalon but the patient is aware it is not covered and she cannot afford OTC meds-advis e close follow-up with her PCP on Sunday in 48 hours.Advi sed rest lots of fluids/ gargle with warm salt water.I made her aware the prednisone could increase her blood sugar slightly transientl y, but her blood sugar is normal [id number] Marita Ramos MD [facility] - [facility] [address] [place] [phone] 0 10/12/2022 13:11:26 10/12/2022 19:18:57 Respiratory tract congestion and cough [id number] R05.9 [id number] Jas Woodall MD [facility] - [facility] [address] [place] [phone] 0 10/14/2022 11:55:33 10/16/2022 20:25:38 Pain of right wrist [id number] 35893 M25.531 Dizziness [id number] R42 [id number] Elizabeth Victoria MD [facility] - [facility] [address] [place] [phone] 10/19/2022 20:24:42 10/19/2022 23:38:55 Dysuria [id number] R30.0 Urinary symptoms [id number] R39.9 [id number] Yuliya Maldonado MD [facility] - [facility] [address] [place] [phone] 0 10/29/2022 10:52:45 12/12/2022 15:05:16 Cough [id number] R05.9 I provided real -time medical direction via phone for this encounter, and was available for additional phone based assistance as needed. I have reviewed and agree with the Assessment and Plan as documented by the Bat Boy/Girl. Patient given the opportunit y to ask questions. 62 yo F recently dx with CAP, on azithromyc in, c/o persistent non productive cough, fatigue and nasal congestion . Denies fevers/chi lls/dyspne a. Flu and covid negative. Suspect that she either has had a viral URI since beginning of sx or was exposed relatively recently. For time being would favor continuing azithro and monitoring . Reviewed supportive care strategies and warning signs/sx. [id number] Elizabeth Victoria MD [facility] - [facility] [address] [place] [phone] 0 10/31/2022 19:47:09 11/01/2022 12:07:59 Acute viral pharyngitis [id number] J02.9 [id number] Abida Mcleod MD [facility] - [facility] [address] [place] [phone] 0 11/03/2022 19:45:46 11/05/2022 18:05:51 Pharyngitis [id number] J02.9 62 year old female being evaluated for several weeks of sore throat. Patient reports persistent symptoms since treated for pneumonia 2 weeks ago, no fever/chil ls, and is able to eat and drink. Trying tea and honey with minimal benefit, has not tried much else thus far. Exam notable for normal vital signs, mild pharyngeal erythema and adenopathy , POC strep is negative. Presentati on consistent with likely viral pharyngiti s, uncomplica sharmin. Recommende d continued symptom control with current home remedies, with the addition of PO NSAIDS. I have reviewed and agree with the assessment and plan as documented by the account director. I provided real-time medical direction for this encounter and was immediatel y available to provide additional phone-base d assistance as needed. [id number] Maryanne Yip MD [facility] - [facility] [address] [place] [phone] 11/05/2022 11:22:03 11/05/2022 18:18:37 Acute pharyngitis [id number] J02.9 Evaluation in the field was performed by my account director colleague, as noted above, I provided real-time direction and supervisio n for this visit. 62yo F evaluated for several weeks of sore throat. Patient reports persistent symptoms since treated for pneumonia 2 weeks ago, no fever/chil ls, and is able to eat and drink though less. Using lozenges which help but ran out and cannot get to pharmacy. Recent [facility] visit 11/03 w/ POC strep negative. Today VS with mild tachycardi a but well hydrated and afebrile. Presentati on consistent with likely viral pharyngiti s with possible component of post-nasal drip. Recommend nasal saline however pt declines. Offered IVF however pt declines as able to take PO and will try to increase intake. Recommend phenol throat spray for symptomati c relief and toradol x1. Recommend in person eval We discussed the diagnostic uncertaint y of home visits and the risk associated with this. In this case, the patient and I felt this to be an acceptable and reasonable amount of risk given the benefit of avoiding an ED visit. We discussed the need to seek care urgently/e mergently in the setting of any new or worsening serious symptoms, shortness of breath, cough, chest pain, fever. [id number] Mandy Portillo MD [facility] [address] [place] [phone] 12/19/2022 20:38:38 12/27/2022 18:34:30 Hoarse [id number] R49.0 [id number] Marita Ramos MD [facility] [address] [place] [phone] 0 12/21/2022 15:09:02 12/22/2022 13:12:24 Nausea and vomiting [id number] R11.2 [id number] Luis Cutler MD [facility] - [facility] [address] [place] [phone] 0 12/24/2022 17:29:23 12/25/2022 14:41:46 Cellulitis [id number] L03.90 As noted, we were called to see this patient regarding concerns of cellulitis . Evaluation in the field was performed by my account director colleague, as noted above, I provided real-time direction and supervisio n for this visit. The evaluation revealed skin changes and hx c/w cellulitis , a dx made yesterday for which she is on abx. Today she reports very bothersome pain. VS are reassuring and exam not concerning for some other serious cause, e.g. necrotizin g faciitis, etc. Impression :Painful cellulitis , again, no significan t concern for other causes. Plan:Tylen ol 1000 mg nowContinu e per usual dosing -- no more than 1000 mg TIDI did not think IV/IM ketorolac was necessary given she has not tried oral options yet Primary care, considerch asim-in call this coming week Dispositio n:We discussed the diagnostic uncertaint y of home visits and the risk associated with this. In this case, the patient and I felt this to be an acceptable and reasonable amount of risk given the benefit of avoiding an ED visit. We discussed the need to seek care urgently/e mergently in the setting of any new or worsening serious symptoms, particular ly high fever, unresolvin g pain. [id number] Marita Ramos MD [facility] [address] [place] [address] [phone] 0 12/27/2022 19:57:19 12/27/2022 22:46:42 Cellulitis [id number] L03.90 [id number] Elizabeth Victoria MD [facility] [address] [place] [phone] 0 01/23/2023 20:58:40 01/24/2023 13:37:45 Acute sinusitis [id number] J01.90 [id number] EMELY DHILLON MD [facility] [address] [place] [address] [phone] 0 01/27/2023 19:31:06 01/30/2023 10:07:25 Abscess [id number] L02.91 As noted, we were called to see this patient regarding concerns of recurring right nostril abscess Evaluation in the field was performed by my account director colleague, as noted above, I provided real-time direction and supervisio n for this visit. The evaluation revealed 62 yo female who was seen by us on 01/23 for possible sinus infection, was told to continue to take her abx as prescribed from PCP for sinusitis, and to try benadryl for sleep. Patient went to the ED on 01/24 night as the sinus pain was so severe, they subsequent ly found an abscess in her nose, which was drained and given abx. Member was suppose to follow up with an ENT surgeon, but no appt available until May.Per account director exam, right nostril blocked completely with puss Impression :Right nare abscess Plan:Pt was send to ED for I& D and possible IV antibiotic sNo Tramadol give since increases risk of bleeding during the I&D Primary care, consider__ _ Dispositio n: We discussed the situation and I recommende d referral to the emergency department . [id number] Yuliya Maldonado MD [facility] [address] [place] [phone] 0 02/17/2023 18:16:57 02/18/2023 15:31:40 Acute urinary tract infection [id number] N39.0 62 yo h/o recurrent UTis today p/w 1d severe flank pain. UA positive for LE and nitrites. Pt is in significan t distress 2/2 pain on exam, reports this is much worse than prior. Requesting transport to ED. [id number] Marita Ramos MD [facility] [address] [place] [address] [phone] 0 02/20/2023 14:07:45 02/21/2023 11:03:01 Renal angle tenderness [id number] R10.829 Dysuria [id number] R30.0 [id number] Rangel Robledo MD [facility] [address] [place] [phone] 02/23/2023 17:39:45 02/26/2023 17:26:50 Chronic thoracic back pain [id number] 41489 M54.6 [id number] Ninoska Juarez MD [facility] [address] [place] [address] [phone] 03/10/2023 16:45:25 03/11/2023 15:32:12 Viral upper respiratory tract infection [id number] J06.9 [id number] Elizabeth Victoria MD [facility] [address] [place] [address] [phone] 0 04/10/2023 20:36:05 04/11/2023 17:22:36 Pain in left foot [id number] 46210 M79.672 [id number] Sam Perez MD [facility] - [facility] [address] [place] [address] [phone] 0 04/25/2023 15:11:36 04/25/2023 22:44:01 Pain in left arm [id number] M79.602 This 62-year-ol d female has a three month history of left upper back and shoulder pain with no history of trauma. She has been taking Tylenol, but today the pain is worse. I ordered Toradol 15 mg IM. I also recommende d she alternate ibuprofen with the Tylenol. She will follow-up with her PCP. The patient agreed with this plan. [id number] Elizabeth Victoria MD [facility] [address] [place] [address] [phone] 05/10/2023 20:23:10 05/14/2023 18:12:54 Acute urinary tract infection [id number] N39.0 servce called for abd painfound 62 girish withDiabet es,COPD/As thma,Hyper tensionrec urrent UTIc/o 2-3 lower abd pain, urinary frequency, back painmost recent UCx 10/2022 with mixed floraAll: augmentin, bactrimVS noted elev BPreported examabd tender LLQ and RLQ #UTIempiri c macrobidf/ up Ucx [id number] Mandy Portillo MD [facility] [address] [place] [phone] 05/29/2023 21:28:01 05/29/2023 22:30:30 Urinary symptoms [id number] R39.9 [id number] Sara Rucker MD [facility] [address] [place] [address] [phone] 05/30/2023 13:40:04 05/30/2023 15:20:06 Pyelonephritis 73013388 N12 Urinary symptoms [id number] 08 R39.9 [id number] Ninoska Juarez MD [facility] [address] [place] [address] [phone] 0 06/17/2023 20:18:31 06/19/2023 11:51:51 Community acquired pneumonia [id number] J18.9 [id number] Abida Mcleod MD [facility] [address] [place] [address] [phone] 0 07/02/2023 18:08:47 07/03/2023 17:43:48 Abdominal pain [id number] R10.9 62 year old female being evaluated for abdominal pain and since this morning. Patient reports hard stools lately, last one was a small BM this morning. Patient reports 10/10 pain that comes and goes, no vomiting, no fever. Patient not on any stool softeners. Patient's stools were normal colored, with a small amount of red blood this morning with her BM. Patient reports pain is worse with meals. Patient reports no previous abdominal surgery aside from a cholecyste ctomy. Exam notable for normal vital signs, pain out of proportion to exam, with a soft mildly distended abdomen that is diffusely tender to palpation, without guarding or rebound. Presentati on suggestive of constipati on, no evidence of bowel obstructio n on today's visit, also possible would be mesenteric ischemia. Discussed the option of trying a bowel regimen to see if pain improves with passage of more stool given largely reassuring exam, however patient ultimately opted to go to the ER. I have reviewed and agree with the assessment and plan as documented by the account director. I provided real-time medical direction for this encounter and was immediatel y available to provide additional phone-base d assistance as needed. We discussed the diagnostic uncertaint y of home visits and associated risks. We discussed the need to seek care urgently/e mergently in the setting of any new or worsening symptoms. [id number] EMELY DHILLON MD [facility] [address] [place] [phone] 0 07/14/2023 20:33:44 07/16/2023 10:38:00 Urinary symptoms [id number] R39.9 Evaluation in the field was performed by my account director colleague, as noted above, I provided real-time direction and supervisio n for this visit. The evaluation revealed 62 yo female who was seen by us on 07/01 with abdominal pain 11/21 and was sent to the ED. Pt reports that had labs and CT abdomen and was told to take OTC pain meds and treat constipati on. Pt called today with complains of suprapubic pain , one episode of vomiting, increased frequency and dysuria. Denies CP, SOB, nausea, diarrhea, dizziness . Albe to tolerate PO . VSS per discussion with the paramedicU A shows positive leucocytes and Ketone.The last 2 Ucx with us have shown 10-25 K Lactobacil saundra species Impression :UTI/ Pyelo Plan:-Init ial plan for BMP and IV hydration, but account director unable to place a PIV or draw blood-Ceft riaxone 1 gr IV x1 ( pt reports allergy to multiple Abx but has tolerated Ceftriaxon e with us in the past )-Rx for Cefpodoxim e 200 mg BID x6 more days sent to her pharmacy-P yridium 200 mg TID x2 days-Ketor olac 15 mg IM x1 ( pt denies CKD, Hx of GI bleed. Not on anticoagul ation )-Urine culture sent to the lab. will follow results.-R ed flags discussed with the patient Primary care, consider__ _ Dispositio n: We discussed the diagnostic uncertaint [...] new or worsening serious symptoms, particular ly fever. chills, CP, SOB, N/V/D, weakness, worsening abdominal pain CVA tenderness or any other concerns. [id number] EMELY DHILLON MD [facility] [address] [place] [address] [phone] 0 07/15/2023 20:22:18 07/16/2023 10:43:33 Left lower quadrant pain [id number] R10.32 Evaluation in the field was performed by my account director colleague, as noted above, I provided real-time direction and supervisio n for this visit. The evaluation revealed 62 yo female who was seen yesterday with UTI S/S, which included urinary frequency, urinary urgency, burning sensation when urinating, suprapubic pain, and back pain. She was positive for CVA tenderness the day prior as well , and had reported it worse on the left side. She denied any N/V or fevers that day, and stated the pain on her left side had become much worse. She stated it was unbearable , and that it radiated down the front of her left thigh. She reported similar S/S when she had a kidney stone on her right side 1 yr prior. She denied ALVAREZ, dizziness, cough, sore throat, CP, SOB, diarrhea.P kimberli was treated with ceftriaxon e and Ketorolac yesterday but unfortunat parag no IV could be placed so she did not received any fluids but I believe the pain today is more consistent with kidney stone, less likely ovarian in nature of diverticul itis given normal BM Impression :LLQ pain with radiation to thigh concerning for kidney stone Plan:Since pt with severe pain, no IV acces for fluids that might have helped , I discussed with the patient the need for imaging and treatment based on the findings, requiring ED visit. Pt reluctant since she feels she often is dismissed by the ED staff, but agree to go via ambulance after expect was called [facility] Primary care, consider__ _ Dispositio n:ER [id number] Marita Ramos MD Main - [address] [phone] 07/25/2023 08:03:15 07/26/2023 09:54:40 Seasonal allergy [id number] J30.2 [id number] Abida Mcleod MD Main - [address] [phone] 0 09/28/2023 18:39:05 09/28/2023 20:43:24 Pain of left shoulder joint [id number] 6333945 M25.512 63 year old female being evaluated for acute on chronic left shoulder pain and swelling. Patient denies recent trauma or fever, has been evaluated by orthopedic s in the past, and is in the process of arranging follow up. Patient currently taking gabapentin and tylenol with little benefit. Exam notable for normal vital signs, left arm with slight local swelling at deltoid region compared to R. Presentati on consistent with acute on chronic left shoulder pain without concern for traumatic or infectious etiology. Patient noted to have an allergy to aspirin, however has received toradol, and reports aspirin mostly causes upset stomach. IM toradol administer ed today, with plan to continue outpatient follow up to finalize long-term plan. I have reviewed and agree with the assessment and plan as documented by the account director. I provided real-time medical direction for this encounter and was immediatel y available to provide additional phone-base d assistance as needed. We discussed the diagnostic uncertaint y of home visits and associated risks. We discussed the need to seek care urgently/e mergently in the setting of any new or worsening symptoms. [id number] EMELY DHILLON MD [facility] [address] [place] [address] [phone] 09/30/2023 18:55:46 10/01/2023 12:23:23 Pain of left shoulder joint [id number] M25.512 Evaluation in the field was performed by my account director colleague, as noted above, I provided real-time direction and supervisio n for this visit. The evaluation revealed 63-year-ol d female with complains of for acute on chronic left shoulder pain . The patient denies recent trauma or fever. She reports being told that she has calcium deposits in her left shoulder and is awaiting a consultati on with Orthopedic s tomorrow to schedule surgery. The patient was seen by us on 09/27 and received 30 mg of ketorolac IM, as gabapentin and Tylenol have not provided significan t relief. She denies fever, chills, chest pain, shortness of breath, weakness, numbness in the left arm, nausea, or vomiting. The patient is not on anticoagul ation and denies any history of kidney disease VSS.Exam with : No erythema , swelling or deformity in left arm, positive CMS. No neuro deficitsBM P with normal electrolyt es and renal function: BUN/sCr 13/0.7Pati ent noted to have an allergy to aspirin, mostly causes upset stomach per patient . Tolerate IM toradol 2 days prior. Impression :Acute on chronic Left shoulder pain Plan:-Pres entation consistent with acute on chronic left shoulder pain without concern for traumatic or infectious etiology.- Ketorolac 15 mg IM x1 was administer ed .-The patient was advised to avoid NSAIDs until at least tomorrow.- Advised the patient to consult with Orthopedic s regarding the possibilit y of a cortisone injection or other pain relief modalities to manage pain until surgery is performed. -Rx for diclofenac gel was sent to her pharmacy-R ed flags were reviewed with the patient. Primary care, consider__ _ Dispositio n: We discussed the diagnostic uncertaint [...] arm, CP, SOB or any other concerns. [id number] EMELY DHILLON MD [facility] [address] [place] [address] [phone] 10/03/2023 18:14:26 10/04/2023 12:20:55 Pain of left shoulder joint [id number] M25.512 Evaluation in the field was performed by my account director colleague, as noted above, I provided real-time direction and supervisio n for this visit. The evaluation revealed a 63-year-ol d female presenting with complaints of acute-on-c hronic left shoulder pain. The patient experience d a mechanical fall today, landing on her left arm, which exacerbate d her pain. She was seen by us on 09/27 and 09/29 with similar complaints and received Ketorolac during those visits. The patient reports she is scheduled for surgery with orthopedic s on that shoulder on 10/16. She is prescribed gabapentin and Tylenol, but these have not provided significan t relief. Diclofenac gel was prescribed at her last visit; however, the patient reports it is not covered by her insurance. She denies fever, chills, chest pain, shortness of breath, weakness, numbness in the left arm, nausea, or vomiting. The patient took Ibuprofen 800 mg approximat parag 3 hours prior to the visit. VSS.Exam with : No erythema , swelling or deformity in left arm, positive CMS. No neuro deficits Impression :Acute on chronic Left shoulder pain s/p fall Plan:-Pres entation consistent with acute on chronic left shoulder pain without concern for traumatic or infectious etiology.- Since she took Ibuprofen 3 hrs prior , she is not a candidate for Ketorolac .-Advised to use Ice, Tylenol, gabapentin -Rx for Lidocaine gel sent to her pharmacy- [facility] the pharmacy was closed , so could not confirmed if cover. Pt will call tomorrow .-Red flags were reviewed with the patient. Primary care, consider__ _ Dispositio n: We discussed the diagnostic uncertaint [...] arm, CP, SOB or any other concerns. [id number] EMELY DHILLON MD Main - [address] [phone] 10/12/2023 09:53:35 10/12/2023 22:05:57 Acute sinusitis [id number] J01.90 Evaluation in the field was performed by my account director colleague, as noted above, I provided real-time direction and supervisio n for this visit. The evaluation revealed a 63-year-ol d female with complaints of headache, sore throat, postnasal drip, facial pain and pressure, bilateral ear pain, and myalgia for the past 2-3 days. She denies chest pain, shortness of breath, nausea, vomiting, and diarrhea. The patient reports feeling feverish earlier this morning and took Tylenol. She was recently in the ED and is concerned that she may have contracted something there. Vital signs stable. Low-grade temperatur e of 99.9? ? ?F (post-Tyle nol).Exam reveals maxillary sinus tenderness and erythemato us oropharynx without exudate. Lungs clear to auscultati on. No lower extremity edema.COVI D, Flu, and rapid strep tests were negative.E CG: QTc 398 msec. Impression :Acute sinus infection Plan:-Give n the fever, headache, and facial pain, the decision was made to start antibiotic s. The patient has multiple allergies and was started on Levofloxac in 500 mg daily for 7 days. The first dose was administer ed by the account director. -A prescripti on for Flonase was sent to her pharmacy.- The patient was encouraged to continue supportive measures, including Tylenol 1 gram every 8 hours as needed for pain, fever, and myalgia, as well as tea with honey and gargling with salt water.-Red flags were discussed with the patient. Primary care, consider__ _ Dispositio n: We discussed the diagnostic uncertaint [...] new or worsening serious symptoms, particular ly worsening headache, fever, chills, CP, SOB, nausea, vomiting, inability to tolerate PO, weakness or any other concerns. [id number] EMELY DHILLON MD Main - [facility] [address] [place] [phone] 11/08/2023 17:29:57 11/08/2023 23:24:56 Candidal intertrigo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
== END 2024-03-10 13:57 | disposition home or self-care (01) ==
PROVIDERS: PCP Nurse Practitioner Family; Visit Provider Nurse Practitioner Family
DX: M77.12 Lateral epicondylitis, left elbow (principal); M25.512 Pain in left shoulder; Z98.890 Other specified postprocedural states
CPT/HCPCS: 99204; G2211

== ENCOUNTER → 2024-03-10 13:14 | Outpatient (BNVA) | payer OTHER, SELFPAY | PROVIDERS: PCP Nurse Practitioner Family; Visit Provider Nurse Practitioner Family | DX: M77.12 Lateral epicondylitis, left elbow (principal); M25.512 Pain in left shoulder; Z98.890 Other specified postprocedural states | CPT/HCPCS: 99202 ==

== ENCOUNTER 2024-04-21 10:15 | Outpatient (AMB) | payer OTHER, SELFPAY ==
--- NOTE | 2024-04-21 10:16 | A.OFFVIS_ITS ---
Vital Signs 04/21/24 10:17 Height 5 ft 1 in Weight 176 lb BMI 33.3 BP 126/71 Blood Pressure Location Lt brachial Position Sitting Respiration 16 Pulse 90 Pulse Source Pulse Oximeter Pulse Oximetry (%) 97 Oxygen Delivery Method Room Air Intake Visit Reasons: Left Dx suprascap/axillary NB Residential Recycle Driver Required: No Handmade Tile Artist: Handmade Tile Artist Present Accompanied by: Agustin T Allergies cephalexin Allergy (Intermediate, Verified 04/21/24 10:19) Diarrhea Iodinated Contrast Media [IV CONTRAST] Allergy (Intermediate, Verified 04/21/24 10:19) DIFF BREATHING morphine [MORPHINE] Allergy (Intermediate, Verified 04/21/24 10:19) HIVES nabumetone [NABUMETONE] Allergy (Intermediate, Verified 04/21/24 10:19) HIVES sulfamethoxazole [From BACTRIM] Allergy (Intermediate, Verified 04/21/24 10:19) HIVES trimethoprim [From BACTRIM] Allergy (Intermediate, Verified 04/21/24 10:19) HIVES dicloxacillin Allergy (Unknown, Verified 04/21/24 10:19) Rash dyclonine Allergy (Unknown, Verified 04/21/24 10:19) Unknown propranolol [Inderal LA] Allergy (Unknown, Verified 04/21/24 10:19) unknown quetiapine [Seroquel] Allergy (Unknown, Verified 04/21/24 10:) rash seafood Allergy (Unknown, Verified 04/21/24 10:19) Unknown Sulfa (Sulfonamide Antibiotics) Allergy (Unknown, Verified 04/21/24 10:19) hives amoxicillin [From Augmentin] Allergy (Verified 04/21/24 10:19) stomach pain clavulanic acid [From Augmentin] Allergy (Verified 04/21/24 10:19) stomach pain polyethylene glycol [From Golytely] Adverse Reaction (Severe, Verified 04/21/24 10:19) Hallucinations polyethylene glycol 3350 [From Golytely] Adverse Reaction (Severe, Verified 04/21/24 10:19) Hallucinations potassium chloride [From Golytely] Adverse Reaction (Severe, Verified 04/21/24 10:19) Hallucinations sodium [From Golytely] Adverse Reaction (Severe, Verified 04/21/24 10:19) Hallucinations sodium bicarbonate [From Golytely] Adverse Reaction (Severe, Verified 04/21/24 10:19) Hallucinations sodium chloride [From Golytely] Adverse Reaction (Severe, Verified 04/21/24 10:19) Hallucinations sodium sulfate [From Golytely] Adverse Reaction (Severe, Verified 04/21/24 10:19) Hallucinations doxycycline [DOXYCYCLINE] Adverse Reaction (Intermediate, Verified 04/21/24 10:19) NAUSEA & VOMITTING From INDERAL Allergy (Intermediate, Uncoded 04/21/24 10:19) RASH Codeine Sulfate Allergy (Unknown, Uncoded 04/21/24 10:19) Unknown Medication List - Last Reconciled 04/21/24 by Shannon Webb LPN albuterol sulfate 90 mcg/actuation (Ventolin HFA) 2 puffs inhalation Q4H PRN aripiprazole 10 mg PO DAILY ascorbic acid (vitamin C) (Vitamin C) 500 mg PO DAILY carbamazepine ER (Tegretol XR) 400 mg PO BID cholecalciferol (vitamin D3) PO diclofenac sodium 1% 1 g topical QID PRN diclofenac sodium 75 mg PO BID PRN dicyclomine 10 mg PO Q6H PRN docusate sodium 100 mg PO BID epinastine 0.05% drkelle ophthalmic (eye) estradiol 1 mg PO DAILY fexofenadine 180 mg PO BID fluticasone propion-salmeterol 500-50 mcg/dose 1 ea inhalation BID folic acid 1 mg PO DAILY gabapentin 800 mg PO TID ibuprofen 600 mg PO TID lactase 3,000 - 6,000 units (1 - 2 x 3,000 unit) PO TIDAC PRN levofloxacin 500 mg PO DAILY lidocaine 5% 1 patch topical DAILY lisinopril 10 mg PO DAILY lorazepam 1 mg PO DAILY PRN meclizine 25 mg PO QID melatonin 9 mg PO BEDTIME metformin 500 mg PO BID methotrexate sodium 20 mg (8 x 2.5 mg) PO QWEEK metronidazole 500 mg PO TID 10 days montelukast (Singulair) 10 mg PO BEDTIME multivitamin 1 tab PO DAILY multivitamin with folic acid 400 mcg (Daily-Maikel (with folic acid)) 1 tab PO DAILY omalizumab (Xolair) mg subcut Q2W omalizumab (Xolair) mg subcut Q2W ondansetron 4 mg PO Q8H PRN pantoprazole 40 mg PO BID prazosin 4 mg PO BEDTIME prednisone Take 3 tabs daily for 1 week, 2 tabs daily for 1 week, 1 tab daily for 1 week then stop risperidone (Risperdal) 3 mg PO BID risperidone 4 mg PO BEDTIME sertraline 50 mg PO DAILY sod sulf-pot chloride-mag sulf 1.479-0.188- 0.225 gram (Sutab) PO Per [facility] Gastroenterology instructions sumatriptan succinate 100 mg PO DAILY PRN Taltz Autoinjector (ixekizumab) 80 mg subcut Q4W NS topiramate 150 mg PO BID topiramate 50 mg PO BID trazodone mg PO umeclidinium 62.5 mcg/actuation (Incruse Ellipta) 1 inh inhalation DAILY valacyclovir 500 mg PO BID 7 days vitamin B complex (Vitamins B Complex capsule) 1 cap PO DAILY [wrist splint Wear nightly and as much as possible throughout the day] HPI HPI Left Dx suprascap/axillary NB: Details: History of Present Illness The patient is a 63-year-old female presenting with chronic left shoulder pain. She underwent surgical intervention on January 15 to address her shoulder issues. Post-operatively, the shoulder pain persisted, and the condition was further complicated by two falls onto the shoulder. These events have contributed to the maintenance of chronic pain, affecting her daily functionality and life quality. The failure of the primary surgical intervention to alleviate pain has led to the planning of procedural evaluations and interventions, including the current diagnostic suprascapular nerve block. A comprehensive evaluation is underway to determine the efficacy of nerve-based interventions for pain management. Pain Description - Onset: Persistent post-surgery, January 15 - Quality and character: Not explicitly detailed in the conversation - Primary location: Left shoulder - Radiation: Not discussed - Aggravating factors: Falls onto the shoulder - Relieving factors: None mentioned - Functional interference: Affects daily living activities Physical Exam - Musculoskeletal- Focus on the left shoulder area for procedural setup Results - Tests and Diagnostics: Use of ultrasound for visualization of the left suprascapular notch Pain Management - Affect: Chronic left shoulder pain affecting daily activities - Analgesia: Local anesthetic (ropivacaine) used for diagnostic block with unknown long-term effect - Adverse Effects: Not applicable to current management - Activities of Daily Living: Pain affects function and recovery post-surgery - Aberrant Drug Related Behaviors: None reported Procedure - Left Suprascapular Nerve Block Diagnostic - Informed consent was obtained for the procedure - The left side was identified and ultrasound guidance was utilized - An 80 mm 21-gauge echogenic needle was advanced under ultrasound, with 2 mL of 0.5% ropivacaine injected at the suprascapular notch - Skin anesthetized with ethyl chloride spray prior to needle insertion - The patient tolerated the procedure well - An image of the ultrasound exam was saved to the patient's record [facility] Medical History (Updated 03/10/24 @ 13:57 by WINSTON Peterson) Spinal stenosis TMJ (dislocation of temporomandibular joint) Migraine COPD (chronic obstructive pulmonary disease) Asthma Depression Anxiety Prediabetes Arthritis of right knee Umbilical hernia Chronic idiopathic constipation Surgical History (Updated 03/10/24 @ 13:57 by WINSTON Peterson) History of shoulder surgery (~01/2024) History of carpal tunnel release Hx of colonoscopy History of esophagogastroduodenoscopy (EGD) Hx of hand surgery H/O eye surgery Hx of hysterectomy Family History Father Bone cancer Mother Diabetes Family/Other Family history of breast cancer Social History Household Members: None Housing: Apartment Do you presently have visiting nurse or other home services: Yes (nursing once a week, home health aid 4x week) Alcohol intake: current Alcohol intake frequency: does not drink Patient Tobacco Use Status: Former Tobacco user service: No Physical Exam Vital Signs: Last Vital Signs Pulse 90 04/21/24 10:17 Resp 16 04/21/24 10:17 BP 126/71 04/21/24 10:17 Pulse Ox 97 04/21/24 10:17 Oxygen Delivery Method Room Air 04/21/24 10:17 BMI result Body Mass Index 33.3 Assessment & Plan Assessment & Plan (1) Left shoulder pain: Code(s): M25.512 - Pain in left shoulder Category: Medical Plan Plan The patient's chronic left shoulder pain was addressed with a diagnostic left suprascapular nerve block to assess potential benefit from nerve-targeted pain management strategies. The patient will be monitored for any improvement in pain symptoms. If the procedure shows effectiveness in relieving pain, the plan will consider implantation of a left suprascapular nerve stimulator for long-term pain management. Patient was informed and verbally consented to the use of an ambient scribe for clinic note documentation during this visit. Discussion Notes I discussed the approach to manage the patient's chronic left shoulder pain via a diagnostic left suprascapular nerve block. We reviewed how this procedure may offer temporary relief by numbing the targeted nerve, serving as a test for possible further intervention. If significant pain relief is achieved, we considered the future placement of a nerve stimulator. The procedure's risks, benefits, alternatives, and potential outcomes were clearly communicated, and informed consent was obtained. I advised the patient to observe and document changes in her pain over the next day or so, and to contact my office for follow-up to inform decision-making on further management. Patient Instructions - Monitor pain relief over the next day - Report changes in pain to the office - Follow up with the office as advised - Maintain awareness of shoulder activity to avoid further trauma Coding Level of Care Code Procedure Only Diagnoses Left shoulder pain M25.512
[2024-04-21 10:17] VITALS: BP 126/71; PULSE 90; RESP 16; O2SAT 97; BMI 33.3
--- OUTSIDE RECORDS SUMMARY | 2024-04-21 11:27 | XMS_ITS | Continuity of Care Document ---
Author Organization [employer] [facility] Address [address] [place] [phone] Care Team Providers Care Broom Worker Name Role Phone HIM JANETH OTHER PONCHO BAHENA OTHER Assessment Encounter Date Assessment Date Assessment LastModified by Organization Details LastModified Time 03/29/2024 03/29/2024 As noted, we were called to see this patient regarding concerns of pharyngitis. Evaluation in the field was performed by my water resource project manager colleague, as noted above, I provided real-time direction and supervision for this visit. The evaluation revealed 63y F with recurrent episodes of pharyngitis with mild congestion since early Feb. CVP exam reassuring, VSS, POC labs negative. Reassurance, counseling on comfort measures, precautoins provided. Impression: viral pharyngitis Plan: comfort measures, f/u w PCP Primary care, consider f/u in 7-10d for re-evaluatoin Disposition: We discussed the diagnostic uncertainty of home visits and the risk associated with this. In this case, the patient and I felt this to be an acceptable and reasonable amount of risk given the benefit of avoiding an ED visit. We discussed the need to seek care urgently/emerge ntly in the setting of any new or worsening serious symptoms, particularly fever, chills, confusion, dizziness, shob, ches tpain, cough atilhou Not available 03/29/2024 18:07:00 Plan of Treatment Reminders Order Date Submit Date Provider Last Modified By Organization Details Last Modified Time Details Appointments None recorded. Lab rapid SARS CoV 2 Ag, QL IA, respiratory specimen 2024 025 LORE [facility], [address] [place] [address], [phone], 19:53:01 rapid flu (A+B) 2024 025 LORE [facility], [address] [place] [address], [phone], 19:52:39 Referral None recorded. Procedures None recorded. Surgeries None recorded. Imaging None recorded. Medication Orders None recorded. Patient TargetsNo targets recorded. Patient InstructionsNo instructions recorded. Reason for Referral None Reported. Results Created Date Observation Date Name Description Value Unit Range Abnormal Flag Note LastModifiedBy Organization Detail LastModifiedTime 03/29/19 25 03/29/2024 rapid SARS CoV 2 Ag, QL IA, respi rator y speci men rapid SARS CoV 2 Ag, QL IA, respiratory specimen negati ve Not Available [facility] ed [address] [place] [address], [phone], 03/29/2024 18:05:28 03/29/19 25 03/29/2024 rapid flu (A+B) Flu negati ve Not Available [facility] ed [address] [place] [address], [phone], 03/29/2024 18:05:28 Result Notes None recorded. Medical Equipment None [...] 2120 Augmentin medicatio n diarrhea Not available [facility] 04/30/2022 43692 2 RxNorm GAURAV DHILLON MD [address] [place] [address],[address], [place], [phone], [facility] 4 09:58:09 4312 Bactrim medicatio n Not available Not available Not available 02/20/2023 14929 9 RxNorm Not Available [facility] - production 4 03:41:14 4313 sulfameth oxazole / trimethop rim medicatio n Not available Not available Not available 02/20/2023 17458 RxNorm Marita Ramos MD [address] [place] [address],[address], [place], [phone], [employer] 4 14:13:42 4314 doxycycli ne Not available Not available Not available Not available 02/20/2023 3640 RxNorm Not Available [facility] - production 03:41:14 5895 Seroquel medicatio n Not available Not available Not available 09/30/2023 17625 RxNorm GAURAV DHILLON MD [address] [place] [address],[address], [place], [place], [address] [place] [address] 0, [employer] 4 18:08:17 5896 fluoxetin e medicatio n Not available Not available Not available 09/30/2023 4493 RxNorm GAURAV DHILLON MD [address] [place] [address],[address], [place], [place], [address] [place] [address] 0, [employer] 4 18:08:31 5897 nabumeton e medicatio n Not available Not available Not available 09/30/2023 47195 RxNorm GAURAV DHILLON MD [address] [place] [address],[address], [place], [address], [employer] 4 18:08:46 5898 propranol ol medicatio n Not available Not available Not available 09/30/2023 8787 RxNorm GAURAV DHILLON MD [address] [place] [address],[address], [place], [place], [address] [place] [address] 0, [employer] 4 18:09:03 7995 Product containin g penicilli n (product) medicatio n Not available Not available Not available 12/11/2023 84184 8001 SNOMED Not Available [facility] production 4 03:41:14 Medications Name Sig Start Date Stop [...] propionate 50 mcg/actuatio n nasal spray,suspen zoe [place] 1 spray every day by intranasal route. [...] Not Available Not Available Vitals Date Recorded Respiratory rate Heart rate Oxygen saturation Oxygen saturation in Arterial blood by Pulse oximetry Body temperature Systolic blood pressure Diastolic blood pressure Provider Name and Address Organization Details Last Updated DateTime 5 16 /min 67 /min 96 % 96 % 97.4 [degF] 116 mm[Hg] 69 mm[Hg] Not Available [facility] - [facility] 5 17:58:46 Social History None recorded. Functional Status None recorded. Mental Status None recorded. Family History Nothing Reported. Medical History No medical history recorded. Gynecological HistoryNo gynecological history recorded. Obstetrics History GPAL:G 0 P 0 0 0 0 Past Encounters Encounter ID Performer Location Encounter Start Date Encounter Closed Date Diagnosis/Indication Diagnosis SNOMED-CT Code Diagnosis ICD10 Code Diagnosis Note [id number] Loi Wu MD [facility] - [facility] [address] [place] [phone] 02/28/2024 13:48:17 02/28/2024 20:22:02 Upper respiratory infection [id number] J06.9 [id number] [facility] [address] [place] [phone] 03/05/2024 16:43:16 03/05/2024 19:19:50 Asthma [id number] J45.909 [id number] Maryanne Yip MD Main - [facility] [address] [place] [id number] 03/15/2024 14:54:03 03/18/2024 16:38:13 Upper respiratory infection 37659013 J06.9 Evaluation in the field was performed by my water resource project manager colleague, as noted above, I provided real-time direction and supervisio n for this visit. 63yo F asthma, HTN p/w ongoing nasal congestion , cough. On prednisone x 48 hrs without improvemen t. Denies feveres, orthopnea, PND. On water resource project manager eval sat 97% rest also wnl, exam without sig wheezing, good air movement. POC COVID and flu negative. Recommend symptomati c mgmt, pt frustrated as she is unable to afford OTCs. Encouraged f/up with allergy/im munology and PCP given chronicity of symptoms. PCP: given frequent pt visits for URI symptoms consider developing care plan so [facility] can best support. We discussed the diagnostic uncertaint y of [...] shortness of breath, cough, chest pain, fever. [id number] Rogelio Vasquez MD Main - [facility] [address] [place] [phone] 03/16/2024 10:41:49 03/18/2024 17:02:49 Viral upper respiratory tract infection [id number] J06.9 Patient 4 days into prednisone course. Vitals stable. Taking inhalers at home though mild wheezing noted by water resource project manager and administer ed duoneb with good effect. Declined COVID/flu testing as out of window for treatment. Discussed red flag signs for which to seek higher level of care. [id number] Rangel Robledo MD Main - [facility] [address] [place] [phone] 03/27/2024 11:44:09 03/27/2024 14:25:14 Sore throat 919824594 J02.9 [id number] Ninoska Juarez MD Main - [facility] [address] [place] [phone] 03/29/2024 17:58:44 03/30/2024 15:29:24 Pharyngitis 920467747 J02.9 Health Concerns Section Related Observation LastModified by Organization Detai ls LastModified Time None Recorded Concern Status LastModified by Organization Details LastModified Time None Recorded Payers Encounter Date Sequence Insurance Name Policy Number Policy Valdez Covered Member ID Valdez Member ID Guarantor Name 03/29/2024 1 [facility]INT [facility] - DOS ON OR AFTER 2022 - DUAL ELIGIBLE - [facility] OPTIONS AND ONE C[employer] (MEDICARE REPLACEMENT/ADV ANTAGE - HMO) Elizabeth Huang [id number] Elizabeth Huang Notes Date Note Type Note Provider Name and Address Organization Details Recorded Time 03/29/2024 text/html [facility] Nurse Triage Notes (Jaylen Escobar - RN): Reason For Request: Patient lost her voice, sore throat. Denies: Sudden onset of dental pain, unable to manage own secretions Nosebleed lasting longer than one hour; unable to stop bleeding Throat swelling/difficult swallowing Chief Complaints: Sore throat PMH: COPD/Asthma, Severe Persistent Mental Illness (SPMI), Hypertension PMH Reviewed at 03/29/2024 - 14: Allergies Reviewed at 03/29/2024 - :11 Comments: Banquet Coordinator verified the patient's name//address and phone number. Pt calling reporting she has been feeling sick since February 12. Pt states she has lost her voice. Pt difficult to understand over the phone at times. Pt reports painful to swallow and she is having a hard time eating and drinking due to the pain. Pt does have COPD & Asthma, states taking inhalers as prescribed, denies any increased SOB from baseline. Education provided on the response time and the patient was advised to monitor reported s/s and seek emergency treatment if needed -Allison Escobar RN Traveling Buyer Organization Information for Deonte Max [employer] Legal Name: [facility] Address: [address] [place] [address], [place] [address], Line Pilot: Edward Anna MD [place] No.: [id number] Traveling Buyer POC Test Results from [facility] Rapid COVID antigen (17:57:58) COVID: - Rapid influenza antigen (17:57:59) Flu: - Rapid strep test (17:57:59) Strep: - .................... .................... .................... .................... .................... .................... .................... . Traveling Buyer Note From Deonte Max: This 63-year-old female with a history including but not limited to COPD, HTN, depression/anxiety requested a visit today to address 10 weeks of URI symptoms. Patient states that her current most bothersome complaint is a dry itchy sore throat causing her difficulty speaking. Patient denies any chest pain, shortness of breath, headaches, fevers, nausea, vomiting, diarrhea. Patient is using OTC antihistamines, prescribed inhalers and throat lozenges. Patient presents awake and alert, in no acute distress and speaking full sentences. Her vital signs are reasonably stable and she is afebrile. Nonfocal neurological exam. Normal gait. Normal oropharynx exam. Lungs are clear throughout auscultation. Abdomen is soft, nontender, nondistended. No lower extremity edema. Rapid COVID, flu and strep testing are all negative. We discussed the diagnostic uncertainty of home visits and the risk associated with this. In this case, the patient and I felt this to be an acceptable and reasonable amount of risk given the benefit of avoiding an ED visit. I provided education on additional OTC/supportive care therapy and recommend the patient follows up with her primary care physician next week. I instructed her to present to the emergency department for any new or worsening severe symptoms such as chest pain, shortness of breath, high fever, altered mental status. The patient was given the opportunity to ask questions and is agreeable to this plan. .................... .................... .................... .................... .................... .................... .................... . [facility] Consulted: Ninoska Juarez .................... .................... .................... .................... .................... .................... .................... . Disposition: Fulfilled Ninoska Juarez MD [address] [place] [address],[address], [place], [phone], [employer] [facility] 03/29/2024 18:27:39 OBGyn Episode No OBEpisode recorded.
--- OUTSIDE RECORDS SUMMARY | 2024-04-21 11:27 | XMS_ITS | Encounter Summary ---
Author Organization [facility] Address [address] [place] [address] Care Team Providers Care Paper Bag Inspector Name Role Phone Clare Wilson Primary Care Provider [phone] Reason for Visit * Reason Onset Date Comments PAC Dr. Minor_ Left shoulder rotatorcuff_ PostOP 03/05/2024 Encounter Details Date Type Department Care Team (Late st Contact Info) Description 03/05/2024 Telephone [facility] Medicine [address] [place] [phone] Telephone Intake, Staff PAC Dr. Minor_ Left [...] PostOP please call Nithin back to lisbeth [phone] -Thank you documented in this encounter Plan of Treatment Upcoming Encounters Date Type Department Care Team (Late st Contact Info) Description 06/06/2024 2:45 PM EDT Procedure visit [address] [address] Sandy Snyder DO [address] [place] [phone] 07/17/2024 11:30 AM EDT Follow-Up [address] [address] Luis Minor MD [address] [place] [phone] documented as of this encounter Visit Diagnoses Not on filedocumented in this encounter Care Teams Paper Bag Inspector Relationship Specialty Start Date End Date Clare Wilson [address] [place] [phone] PCP - General Family Medicine 09/10/23 documented as of this encounter
--- OUTSIDE RECORDS SUMMARY | 2024-04-21 11:27 | XMS_ITS | Referral Summary ---
Author Organization [facility] Address [address] [place] [address] Care Team Providers Care Ibm Bpm Developer Name Role Phone SteveClare Annemarie Primary Care Provider Encounters Date Type Department Care Team Description 04/03/2024 2:00 PM EST Follow-Up [address] [address] Luis Minor MD Adhesive capsulitis of left shoulder (Primary Dx) 03/20/[address] [address] Telephone Intake, Staff PAC Appt Request - Established_Iván 03/05/[address] [address] Telephone Intake, Staff PAC Dr. Minor_ Left shoulder rotatorcuff_ PostOP 02/28/[address] [address] Telephone Intake, Staff pac- post op-Iván 01/31/2024 Orders Only [address] [address] Mason Montesinos MD 01/31/2024 11:15 AM EST Follow-Up [address] [address] Luis Minor MD Left shoulder pain, unspecified chronicity (Primary Dx) from Last 3 Months Allergies Active Allergy [...] 100 mgoral2 times daily, Reported on 01/07/2024 invendo medical Autoinjector 80 mg/mL auto-injector Inject 80 mg under the skin. Active aspirin 81 mg EC tablet Take 1 tablet (81 mg total) by mouth 2 (two) times a day. 28 tablet 4 Active Active Problems Problem Noted Date Diagnosed Date Chronic obstructive pulmonary disease 12/05/2021 Calculus of kidney 12/05/2021 Abdominal pain 12/05/2021 Knee pain 12/05/2021 Diabetes mellitus 12/05/2021 Hearing loss 12/05/2021 Overview (12/05/2021): [facility] audiology History of total hysterectom y with bilateral salpingo-oophorectomy (BSO) 12/05/2021 Lower urinary tract infectious disease 2 Menopausal syndrome 12/05/2021 Obesity 12/05/2021 Osteoarthritis 12/05/2021 Pelvic pain in female 12/05/2021 Pernicious anemia 12/05/2021 Posttraumatic stress disorder 12/05/2021 Respiratory abnormalities 12/05/2021 Shoulder pain 12/05/2021 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 Dr Macdonald [facility] Ast[facility] 06/16/2013 Overview (12/05/2021): Asthma Asthma Last [...] Description 06/06/2024 2:45 PM EDT Procedure visit [facility] [address] [place] [address] Sandy Snyder DO [address] [place] [address] 07/17/2024 11:30 AM EDT Follow-Up [facility] [address] [place] [address] Luis Minor MD [address] [place] [address] Medical Devices Implanted Type Area Rivet Spinner Device Identifier Shelf Expiration Date Model / Serial / Lot [employer] Suture Double Loaded With White/Blue White/Black Suturetape [employer] - [id number] Implanted:Qty: 1 on 04/02/2020 by Luis Minor MD at [facility] Implant Right: Shoulder [employer] 01/11/2023 [id number] / / [id number] Procedures * Due to [place] [employer] law, this organization might not be sharing negative HIV tests. Procedure Name Priority Date/Time Associated Diagnosis Comments XR SHOULDER 2+ VW LEFT Routine 01/31/2024 11:41 AM EST Left shoulder pain, unspecified chronicity from Last 3 Months Results * Due to [place] [employer] law, this organization might not be sharing [...] obtain the completed interpretation. ? Workstation ID: [id number] Narrative 02/01/2024 5:52 PM EST COMPARISON: 07/15/2022. Resulting Agency Comment [id number] Procedure Note Johnson Bose MD - 02/01/2024 [...] possible to obtain thecompleted interpretation. Workstation ID: [id number] us Luis Minor MD IMG XR PROCEDURES Final Resul t from Last 3 Months Insurance [facility] [place] [id number] Advance Directives * Full Code (Latest Code Status on File) Date Activated Date Inactivated Comments 04/02/2020 10:29 AM 04/02/2020 6:36 PM Healthcare Agents on File Name Relationship Healthcare Agent Relationshi p Communication Pilar Olvera Sister Next of Kin [phone] (M obile) Care Teams Ibm Bpm Developer Relationship Specialty Start Date End Date Clare Wilson [address] [place] [phone] PCP - General Family Medicine 09/10/23
--- OUTSIDE RECORDS SUMMARY | 2024-04-21 11:27 | XMS_ITS | Encounter Summary ---
Author Organization [facility] Address [address] [place] [address] Care Team Providers Care Manufacturing Group Leader Name Role Phone Clare Wilson Primary Care Provider [phone] Reason for Visit * Reason Onset Date Comments PAC Appt Request - Established_Iván 03/20/2024 Encounter Details Date Type Department Care Team (Late st Contact Info) Description 03/20/[address] [address] Telephone Intake, Staff PAC Appt Request - Established_Iván Social History Tobacco Use Types Packs/Day Years [...] encounter Miscellaneous Notes * Telephone Encounter - Arina Quiroga - 03/20/2024 10:54 AM EST Nithin Patients clinical case manager calling to reschedule todays L shoulder post op due to weather. Please call him to reschedule at [phone]. Thank you documented in this encounter Plan of Treatment Upcoming Encounters Date Type Department Care Team (Late st Contact Info) Description 06/06/2024 2:45 PM EDT Procedure visit [address] [address] Sandy Snyder DO [address] [place] [address] 07/17/2024 11:30 AM EDT Follow-Up [address] [address] Luis Minor MD [address] [place] [address] documented as of this encounter Visit Diagnoses Not on filedocumented in this encounter Care Teams Manufacturing Group Leader Relationship Specialty Start Date End Date Clare Wilson [address] [place] [phone] PCP - General Family Medicine 09/10/23 documented as of this encounter
--- OUTSIDE RECORDS SUMMARY | 2024-04-21 11:27 | XMS_ITS | Encounter Summary ---
Author Organization [facility] Address [address] [place] [address] Care Team Providers Care Coyote Hunter Name Role Phone Clare Wilson Primary Care Provider [phone] Reason for Visit * Reason Onset Date Comments pac- post op-Iván 02/28/2024 Encounter Details Date Type Department Care Team (Late st Contact Info) Description 02/28/20[address] [place] [address] Telephone Intake, Staff pac- post op-Iván Social [...] Description 06/06/2024 2:45 PM EDT Procedure visit [address] [address] Sandy Snyder DO [address] [place] [address] 07/17/2024 11:30 AM EDT Follow-Up [address] [address] Luis Minor MD [address] [place] [address] documented as of this encounter Visit Diagnoses Not on filedocumented in this encounter Care Teams Coyote Hunter Relationship Specialty Start Date End Date Clare Wilson [address] [place] [phone] PCP - General Family Medicine 09/10/23 documented as of this encounter
--- OUTSIDE RECORDS SUMMARY | 2024-04-21 11:27 | XMS_ITS ---
Author Organization [facility] on Care Team Providers Care Pearl Stringer Name Role Phone Becca Cai Unavailable Unavailable Colton Cordoba Unavailable Unavailable Landen Lunsford Unavailable Unavailable Elizabeth Piedra Unavailable Unavailable Breanna Ortega Unavailable Unavailable Roxie Perez Unavailable Unavailable Allergies and adverse reactions Code CodeSystem Substance Reaction Severity StartDate Concern Status 89624 RXNORM Trimethoprim Morbilliform eruption (code- 894989776, SNOMED CT) Moderate 11/28/2022 active 22952 RXNORM Sulfamethoxazole Morbillifor m eruption (code- 848940590, SNOMED CT) Moderate 11/28/[address] Sulfa Antibiotics Morbillifo rm eruption (code- 156355902, SNOMED CT) Unknown 11/28/[address] Sodium Benzoate Severe 11/28/2022 a ctive Shell Fish Anaphylaxis (code- 90701816, SNOMED CT) Severe 11/28/2022 active 95851 RXNORM QUEtiapine Unknown 11/28/2022 active 8787 RXNORM Propranolol Unknown 11/28/2022 active 8591 RXNORM Potassium Chloride Severe 11/28/2022 ac tive 8516 RXNORM Polyethylene Glycol Severe 11/28/2022 active Onion Nausea (code- 988393263, SNOMED CT) Severe 11/28/2022 active 57333 RXNORM Nabumetone Morbilliform eruption (code- 207793821, SNOMED CT) Moderate 11/28/2022 active 7052 RXNORM Morphine Morbilliform eruption (code- 217963693, SNOMED CT) Moderate 11/28/2022 active Milk & Milk Products Nausea (code- 296244379, SNOMED CT) Moderate 11/28/[address] Iodinated Contra st Media Anaphylaxis (code- 62698920, SNOMED CT) Moderate 11/28/2022 active Fish Anaphylaxis (code- 27568579, SNOMED CT) Severe 11/28/2022 active Dyazide Unknown 11/28/2022 active 3640 RXNORM Doxycycline Nausea (code- 933575340, SNOMED CT) Unknown 11/28/2022 active 3356 RXNORM Dicloxacillin Morbilliform eruption (code- 851185262, SNOMED CT) Unknown 11/28/2022 active 2670 RXNORM Codeine Moderate 11/28/2022 active 58598 RXNORM Clavulanic Acid Nausea (code - 428629332, SNOMED CT) Unknown 11/28/2022 active Chocolate Nausea (code- 823301296, SNOMED CT) Moderate 11/28/2022 active 2231 RXNORM Cephalexin Nausea (code- 235120052, SNOMED CT) Moderate 11/28/2022 active 723 RXNORM Amoxicillin Nausea (code- 971329722, SNOMED CT) Unknown 11/28/2022 active Care Team Name Role Address Phone Organization Dates Landen Lunsford PCP [address] [place] [address], [address], [place] (Office): : [facility] 11/28/2022 - 12/07/2022 Becca Cai Attending Physician [address] [place] [address], [phone], [place] (Office): [facility] 11/28/2022 - 12/07/2022 Colton Cordoba Attending Physician [address] [place] [address], [address], [place] (Office): [facility] 11/28/2022 - 12/07/2022 Elizabeth Piedra Attending Physician [address] [place] [address], [address], [place] (Office[place] : [facility] 11/28/2022 - 12/07/2022 Breanna Ortega Attending Physician [address], [address], [place] (Office): : [facility] 11/28/2022 - 12/07/2022 Roxie Perez Attending Physician [address] [facility] [address], [place], [address], [place] (Office): : [facility] 11/28/2022 - 12/07/2022 Immunizations Immunization Status Vaccine Details Vaccine Code CodeSystem Date Notes Influenza completed Influenza, split virus, trivalent, injectable, contains preservative 141 CVX created date: 11/30/19 administ ered date: 01/29/20 22 verified by [facility] Pneumococcal Polysaccharide Vaccine (PPSV23) completed pneumococcal polysaccharide vaccine, 23 valent 33 CVX created date: 11/30/19 23 administ ered date: 11/28/19 02 verified by [facility] SARS-COV-2 (COVID-19) completed SARS-COV-2 (COVID-19) vaccine, mRNA, spike protein, LNP, preservative free, 100 mcg/0.5mL dose or 50 mcg/0.25mL dose Step 2 of Multi-step with next step required 207 CVX created date: 11/30/19 administ ered date: 05/28/19 21 modernaverified by [facility] SARS-COV-2 (COVID-19) completed SARS-COV-2 (COVID-19) vaccine, mRNA, spike protein, LNP, preservative free, 100 mcg/0.5mL dose or 50 mcg/0.25mL dose Step 1 of Multi-step with next step required 207 CVX created date: 11/30/19 administ ered date: 04/30/19 21 modernaverified by [facility] completed zoster vaccine recombinant 187 CVX created date: 11/30/19 administ ered date: 02/12/20 21 verified by [employer] SARS-COV-2 (COVID-19 BOOSTER) completed SARS-COV-2 (COVID-19) vaccine, mRNA, spike protein, LNP, bivalent, preservative free, 50 mcg/0.5 mL or 25 mcg/0.25 mL dose 229 CVX created date: 11/30/19 23 administ ered date: 10/23/19 22 moderna bivalent boosterverified by [facility] SARS-COV-2 (COVID-19 BOOSTER) completed SARS-COV-2 (COVID-19) vaccine, mRNA, spike protein, LNP, preservative free, 100 mcg/0.5mL dose or 50 mcg/0.25mL dose 207 CVX created date: 11/30/19 administ ered date: 06/12/19 22 modernaverified by [facility] SARS-COV-2 (COVID-19 BOOSTER) completed SARS-COV-2 (COVID-19) vaccine, mRNA, spike protein, LNP, preservative free, 100 mcg/0.5mL dose or 50 mcg/0.25mL dose 207 CVX created date: 11/30/19 23 administ ered date: 01/03/20 21 modernaverified by [facility] Mental Status Section Date Assessment Total Score Description 12/07/2022 BIMS 15 cognitively int act CAM 0 No delirium ind icated Problems Problem # Description Date of onset Resolved Date Code CodeSystem Concern Status 1 COVID-[address] active 2 ANEMIA, UNSPECIFIED [address] active 3 ANXIETY DISORDER, UNSPECIFIED [address] active 4 BIPOLAR DISORDER, UNSPECIFIED [address] active 5 CHRONIC IDIOPATHIC CONSTIPATION [address] active 6 CHRONIC OBSTRUCTIVE PULMONARY DISEASE, UNSPECIFIED [address] active 7 HERPESVIRAL INFECTION, UNSPECIFIED [address] active 8 IMMUNODEFICIENCY DUE TO DRUGS [address] active 9 MAJOR DEPRESSIVE DISORDER, RECURRENT, UNSPECIFIED [address] active 10 MIGRAINE, UNSPECIFIED, NOT INTRACTABLE, WITHOUT STATUS MIGRAINOSUS [address] active 11 PNEUMONIA, UNSPECIFIED ORGANISM [address] active 12 PSORIATIC ARTHRITIS MUTILANS [address] active 13 RIGHT TEMPOROMANDIBULAR JOINT DISORDER, UNSPECIFIED [address] active 14 SEPSIS, UNSPECIFIED ORGANISM [address] active 15 TYPE 2 DIABETES MELLITUS WITHOUT COMPLICATIONS [address] active Reason for Referral No Reasons for Referral Entered Social History Social History Observation Description Start Date End Date Code Code System Current Smoking Status Tobacco smoking consumption unknown 868982550 SNOMED CT Sex Assigned At Female 1960 85431-3 [facility] Vital Signs Code Code System Vitals Name Values and Units Timing Information 9279-1 [facility] Respiratory Rate Value=18.0 Units=/m in 12/07/2022 8462-4 [facility] Blood Pressure-Diastolic Value=76 Un its=mmHg 12/07/2022 8480-6 [facility] Blood Pressure-Systolic Mvjlj=873 Un its=mmHg 12/07/2022 8310-5 [facility] Body Temperature Value=97.5 Units=?? F 12/07/2022 8867-4 [facility] Heart rate Value=77.0 Units=/min 86611-4 [facility] O2 % BldC Oximetry Value=96.0 Units= % 12/07/2022 60500-7 [facility] Pain Level Value=0.0 12/06/2022 12196-3 [facility] Weight Boemi=767.0 Units=Lbs 8302-2 [facility] Height Value=61.0 Units=Inches 11/29/2022
--- OUTSIDE RECORDS SUMMARY | 2024-04-21 11:27 | XMS_ITS | Encounter Summary ---
Author Organization [facility] Address [address] [place] [address] Care Team Providers Care Supervising Broker Name Role Phone Clare Wilson Primary Care Provider [phone] Reason for Referral * Physical Therapy (Routine) - Pending Review Specialty Diagnoses / Procedures Referred By Gerardo ag Referred To Contact Physical Therapy Diagnoses Adhesive capsulitis of left shoulder Luis Minor MD [address] [place] [address] Phone: tel: fax: Referral ID Status Reason Start Date Expiration Date Visits Requested Visits Authorized [id number] Pending Review Specialty Services Required 04/03/2024 10/03/2025 6 6 Reason for Visit * Reason Comments Follow-up Encounter Details Date Type Department Care Team (Late st Contact Info) Description 04/03/2024 2:00 PM EST Follow-Up [facility] [address] [place] [address] Luis Minor MD [address] [place] [address] Adhesive capsulitis of left shoulder (Primary Dx) Social History Tobacco Use Types Packs/Day Years [...] on file documented as of this encounter Progress Notes * Luis Minor MD - 04/03/2024 2:11 PM EST Date of exam: 04/03/2024 Elizabeth Huang 1960 Subjective The patient continues to note left shoulder stiffness and pain. She has not done physical therapy. She has had 2 falls since I saw her last. Objective Physical Exam: Left shoulder exam shows normal contour. Active forward elevation is limited to about 95 degrees bypain. There is no crepitation. Strength not aggressively tested. No gross neurovascular deficits distally. Imaging: None Assessment & Plan The patient is having substantial pain and stiffness. I recommended an ultrasound-guided cortisone injection followed by course of physical therapy. The patient was interested in this so I provided the appropriate referrals. I counseled her to choose a physical therapy place that is close and convenient because she states that the reason that she did not do physical therapy before was that she believes that she had to [facility] to [facility] physical therapy. Follow-up in about 8 to 12 weeks. Questions answered. documented in this encounter Plan of Treatment Upcoming Encounters Date Type Department Care Team (Late st Contact Info) Description 06/06/2024 2:45 PM EDT Procedure visit [facility] [address] [place] [address] Sandy Snyder DO [address] [place] [address] 07/17/2024 11:30 AM EDT Follow-Up [address] [address] Luis Minor MD [address] [place] [address] Scheduled Referrals Name Type Priority Associated Diagnoses Order Schedule Ambulatory referral to Physical Therapy Outpatient Referral Routine Adhesive capsulitis of left shoulder 1 Occurrences starting 04/03/2024 until 10/01/2024 documented as of this encounter Visit Diagnoses Diagnosis Adhesive capsulitis of left shoulder- Primary documented in this encounter Care Teams Supervising Broker Relationship Specialty Start Date End Date Clare Wilson [address] [place] [phone] PCP - General Family Medicine 09/10/23 documented as of this encounter
--- OUTSIDE RECORDS SUMMARY | 2024-04-21 11:27 | XMS_ITS | Data Portability ---
Author Organization [place] - [facility] Address [address] [place] [id number] Assessment Encounter Date Assessment Date Assessment LastModified by Organization Details LastModified Time 08/19/2019 08/19/2019 Overview/History : Pt is a 58yo F with PMH sig for Asthma, Depression, DM, HTN, IBS and Vertigo. Pt states that her vertigo started acting up around 0900 today. Reports that sx are consistent to when her vertigo starts to be an issue. she states the room feels like it is spinning. She has had some n/v today as well and has vomited 2 twice the most recent about 1 hour prior to DH team arrival. She states she feels off balance when she is walking as well. Exam: Pt is A/Ox3, non-toxic but ill appearing, VSS, HRR, resp reg and unlabored on RA, lungs CTA bilat. Neuro exam grossly normal, unable to finish CN exam as pt reported dizziness was too great to have her eyes follow APPs finger. No nystagmus noted with lateral EOM noted. EKG shows DDx considered, but not limited to: Vertigo: likely given pt has known hx and sx consistent with prior episodes CVA: unlikely as neuro exam is grossly normal. ACS: unlikely, pt denies SOB, CP, VSS Dehydration: unlikely as BUN/Cr WNL Eltrolyte Derangement: unlikely as lytes WNL on POC labs Work up/Results: Chem 6/Cr: WNL EKG: unable to perform d/t equipment malfunction Plan/Discussion: Pt given 500ml of IVF and 4mg of Zofran to help with sx of n/v associated with dizziness. Disscussed risks and benefits of going to the ER and limitations of at home exam given sx. However, sx are consistent with prior episodes and pt is other craig stable so at time of visit it was deemed pt was safe to stay at home. Patients PCP contacted and updated on patient status. Patient verbalized understanding of discharge instructions and when to follow up with PCP/911/ED as needed. Patient in agreement with current plan and treatment. In order to obtain further information and compare any laboratory results/values, I have accessed old patient records. This information was pertinent in my medical decision making today. Time On Scene with Patient: 00:59:24 [email or web address] Not available 08/19/2019 21:14:47 08/31/2019 08/31/2019 Overview/History : Pt is a 58yo F with PMH sig for Asthma, Depression, DM, HTN and IBS. Pt reports left hip/leg pain. She states she was diagnosed with sciatica by her PCP and a hip specialist. She had an intial evaluation for PT but is awaiting insurance approval for the remainder of the treatment. She reports 10/10 pain to the left hip and leg. Reports it as shooting pain. Has been using APAP and diclofanac gel with little relief of sx. Exam: Pt is A/Ox3, non-toxic appearing, VSS, HRR, resp reg and unlabored on RA, lungs CTA bilat. Pt noted to have pain with palpation of the left hip and low back. Pt noted to have slightly decreased strength on the left LE, reflexes WNL, proprioception intact, normal ROM but guarded d/t pain. DDx considered, but not limited to: sciatica: likely given pt reports recent dx by hip specialist and PCP with referral to PT Radiculapathy: possible given reports of shooting pain through the left leg Cauda Equina: unlikely, no bilat LE weakness, no loss of control of kylee/bladder Work up/Results: pt has already recieved through work up for this complaint, no other tests indicated at this time. Plan/Discussion: Pt given script for lidocaine ointment and prednisone to help with sciatic pain and advised to follow up with PCP and hip specialist. Patients PCP contacted and updated on patient status. Patient verbalized understanding of discharge instructions and when to follow up with PCP/911/ED as needed. Patient in agreement with current plan and treatment. In order to obtain further information and compare any laboratory results/values, I have accessed old patient records. This information was pertinent in my medical decision making today. Time On Scene with Patient: 00:27:28 [email or web address] Not available 08/31/2019 16:56:26 11/01/2019 11/01/2019 Pt with persiste nt left lumbar hip/leg sciatica. Has been seen by ortho and told nothing can be done for it. Is using Biofreeze, and alternating OTC Tylenol and Ibuprofen. Pain starts in left low back and extends down the left buttock into the left hip/groin and down the left lateral knee. Sometimes feels like the left leg is going to give out Exam: The vital signs are stable. Obese, NAD, non-toxic appearance, afebrile. Neck: FROM and supple. Pulm: CTA t/o, CV: RRR, No M/G/R, Abd: soft, NTND, no organomegaly. and without suprapubic or CVA tenderness. Musc: MS: 5/5 t/o, pain on palpation over the L3-L5 Left paraspinal muscles. Limited ROM with flexion/extension of lumbar spine.FROM through both L/R hip movements with no deficits. Neuro: A&O x 3. CNII-XII intact. DTR's 2+ t/o. Negative straight leg raise bilaterally. Ext: No C/C/E, Psych: Behavior appropriate, speech pattern normal. DDx: Sciatica, DDD, lumbar strain, hip sprain. POC Workup/labs: No xrays ordered. Plan: Persistent lumbago and LLE Sciatica. Given Toradol 60mg IM at TOV.. Pt is to start her Robaxin and Lidoderm today. She may use heat and ice alternating. We will get some lumbosacral films to evaluate for any DDD since she has not had any done. [facility] to arrange and we will decide further Tx once we receive those results. Proper Personal Protective Equipment (PPE), including gloves, eye protection and masks were donned and doffed appropriately and all equipment cleaned using approved technique with germicidal disposable wipes prior to and after care of this patient according to [facility]'s infection prevention protocols. Time On Scene with Patient: 00:41:51 Not available 11/01/2019 16:50:03 11/23/2019 11/23/2019 Overview/History : 59[facility], DM, HTN is seen today for R wrist pain. Patient has known carpal tunnel and is scheduled for surgery 12/04/2019. Patient is taking Tylenol 500-1000mg 4 times a day, Ibuprofen 600mg 3 times a day and Gabapentin TID and he afternoon dose was just increased yesterday. Denies any fevers. Denies any other complkaints. Exam: VSS Patient well appearing Heart and lung sounds clear R wrist pulses intact Full rOM of R wrist without any redness or swelling DDx considered, but not limited to: Carpal tunnel no signs of vascular compromise No signs of septic joint Work up/Results: none at this time Plan/Discussion: Patient is hemodynamically stable non toxic appearing seen today for continued R wrist pain. She is scheduled for surgery on the of this month. Will dc the ibuprofen and try a course of Narpoxen. Patient denies any hx of kidney issues in the past. Patient will continue with her Tylenol and Gabapentin. She was encouraged to call her surgeon if she continues with sig pain. Patient verbalized understanding and was agreeable with the plan. Proper Personal Protective Equipment (PPE), including gloves, eye protection and masks were donned and doffed appropriately and all equipment cleaned using approved technique with germicidal disposable wipes prior to and after care of this patient according to [facility] infection prevention protocols. Time On Scene with Patient: 00:18:09 [email or web address] Not available 11/23/2019 11:49:44 Plan of Treatment Reminders Order Date Submit Date Provider Last Modified By Organization Details Last Modified Time Details Appointments None recorded. Lab 6+ iStat 2019 020 zak Spr - Home, [address] [place], [address], 0 21:16:36 creatinin e, blood 2019 020 zak Spr - Home, [address] [place], [address], 0 21:16:35 Referral None recorded. Procedures None recorded. Surgeries None recorded. Imaging XR, lumbosacr al spine - No COIVD Sxs or exposure 2019 [facility] ([facility]), [address] , [place], [address], 0 17:40:23 Medication Orders naproxen 500 mg tablet 2019 [email or web address] [facility]/Pharmacy #[id number], [address] [place] [address], [address], 0 09:58:29 Lidoderm 5 % topical patch 2019 INTERFACE [facility]/Pharmacy #[id number], [address] [place] [address], [address], 0 15:29:37 methocarb bhavani 500 mg tablet 2019 INTERFACE [facility]/Pharmacy #[id number], [address] [place] [address], [address], 0 15:29:37 ketorolac 30 mg/mL (1 mL) injection solution 2019 020 [email or web address] [facility]/Pharmacy #[id number], [address] [place] [address], [address], 0 15:30:29 prednison e 10 mg tablet 2019 020 [email or web address] Not available 0 18:42:27 lidocaine 4 % topical cream 2019 INTERFACE [facility], [address] [place] [address], [address], 0 16:25:56 prednison e 20 mg tablet 2019 INTERFACE [facility], [address] [place] [address], [address], 0 16:26:02 sodium chloride 0.9 % intraveno us solution 2019 [email or web address] [facility]/Pharmacy #[id number], [address] [place] [address], [address], 0 16:13:18 Zofran 2 mg/mL intraveno us solution 2019 020 [email or web address] [facility]/Pharmacy #[id number], [address] [facility] [place], [address], 0 21:16:37 Patient TargetsNo targets recorded. Patient Instructions Encounter Date Encounter Id Patient Instructions Last Modified By Organization Details Last Modified Time 08/19/[id number] Thank you for yo ur visit with [facility] [employer] today. We cannot always find the exact cause of your symptoms during your initial visit. Please follow up with your primary care provider or specialist as needed to be rechecked or seek medical attention if your symptoms do not go away or get worse. If you develop any new or worsening symptoms and need after hours care, please go to nearest ER and/or call 911. If you have additional concerns or develop a change in your condition between 8am-10pm, please call [employer] at [phone] to help navigate your care. Acute Nausea and Vomiting/Diarrhea BASIC INFORMATION Acute nausea and vomiting often start suddenly, worsen quickly, and last a few hours to 24 hours. Nausea and vomiting most often occur together, although they can occur alone. Cases of acute nausea and vomiting are often from gastrointestinal viruses such as norovirus, rotavirus and influenza. Less often it can be caused by toxins released from food that ? g oes bad? as well as some types of bacteria and parasites. Diarrhea can also occur. Your nurse practitioner will conduct a careful history to help determine if you have one of the more serious causes. The cause of your nausea and vomiting may be unknown. INSTRUCTIONS Medicines: 1) Anti-nausea: You may have been given a prescription for an anti nausea medicine such as Zofran, Phenergan or Compazine. These can be used every 6-8 hours to help prevent nausea and vomiting. They can make you sleepy, so do not drive after taking them. Be sure to read all of the drug information from the pharmacy. 2) Tylenol: Low grade fever is common with acute nausea and vomiting. You may use Tylenol, per the recommended dosing on the label, to help control fever. If you have liver disease, do not use Tylenol. Ask your [employer] how to address fever if you are concerned about Tylenol use. 3) Anti-diarrheal medicines: These are available [id number]-[id number], but in some cases are not recommended and can even worsen some cases of intestinal problems. Ask your [employer] if you should use them. In children under 12, the only anti-diarrheal that should be considered is Kaopectate. Diet: 1) For the next 12-24 hours, take clear liquids only. No dairy and no caffeinated beverages. After you have not vomited for a complete hour (either with or without the help of the anti-nausea medicine), begin by taking one tablespoon of clear liquid every 15 minutes for one hour. If you are able to tolerate this, you may increase the amount to 2 tablespoons every hour for the next 2 hours. 2) Clear liquids such as gatorade, pedialyte or broth are recommended because of the electrolytes and sugars that will help replenish the losses from vomiting and diarrhea. 3) If you are able to tolerate clear liquids as instructed above, you may begin to take a bland diet. Plain pasta/noodles or toast are suggestions. If you have had diarrhea, bananas, rice and applesauce are suggested as these can help make the stools more solid. Avoid greasy, fatty or fried foods FOLLOW UP You should make an appointment to see your primary care provider within 24 hours or sooner for worsening condition as described below. If you do not have a primary care doctor, you should follow up with one of the PCP suggestions from [facility]. SEEK CARE IMMEDIATELY IF: 1) You are still unable to tolerate any oral intake after 24 hours 2) You have blood in your vomit or stool 3) You develop severe abdominal pain that does not go away after an episode of vomiting or diarrhea 4) You have severe dizziness, heart palpitations or are passing out 5) You develop severe muscle cramps or weakness 6) You have not made urine in over 24 hours If you develop any new or worsening symptoms and need after hours care, please go to nearest ER and/or call 911. If you have additional concerns or develop a change in your condition between 8am-10pm, please call [facility] at [phone] to help navigate your care. [email or web address] Not available 08/19/2019 20:45:42 08/31/2019 [id number] Thank you for yo ur visit with [facility] [employer] today. We cannot always find the exact cause of your symptoms during your initial visit. Please follow up with your primary care provider or specialist as needed to be rechecked or seek medical attention if your symptoms do not go away or get worse. If you develop any new or worsening symptoms and need after hours care, please go to nearest ER and/or call 911. If you have additional concerns or develop a change in your condition between 8am-10pm, please call [facility] [employer] at [phone] to help navigate your care. Thank you for your visit with [facility] today. You do not appear to have a fracture or dislocation that requires immediate surgical intervention. However, small breaks or ligament tears may not be obvious on initial examination. Given this concern, we may have placed you in a temporary splint. If an xray is indicated, we will help direct you to the best option to obtain your imaging study. We have also given you follow up directions. Please follow up with your primary care physician or specialist as directed. If you develop any new or worsening symptoms and need after hours care, please go to nearest ER and/or call 911. If you have additional concerns or develop a change in your condition between 8am-10pm, please call [employer] at [phone] to help navigate your care. [email or web address] Not available 08/31/2019 16:24:13 11/01/2019 [id number] Thank you for yo ur visit with [facility] today. It appears you have lower back and sciatica. You may alternate ice/heat every 20 minutes. I have given you a Toradol injection and prescribed a pain patch and a muscle relaxant. You may start them both today. Do not lift over 5 lbs for the next 2 weeks. We cannot always find the exact cause of your symptoms during your initial visit. If you develop a rash or symtpoms worsen then please follow up with [facility]. Follow up with your primary care provider or specialist within 12-24 hours within 24-48 hours to be rechecked . I have ordered an xray of your lumbar spine and [facility] will contact you to arrange a time to come do it. We will call you with those results as soon as we receive them. We will recommend any further treatment at that time. If you develop any new or worsening symptoms and need after hours care, please go to nearest ER and/or call 911. If you have additional concerns or develop a change in your condition between 8am-10pm, please call [facility] at [phone] to help navigate your care. Not available 11/01/2019 15:29:26 11/23/2019 [id number] STOP TAKING THE IBUPROFEN BEGIN TAKING THE NAPROXEN TWICE A DAY AND TAKE IT WITH FOOD CALL YOUR PRIMARY CARE PROVIDER AND LET THEM KNOW I HAVE STARTED YOU ON THIS MEDICATION CONTINUE TAKING THE TYLENOL BUT DO NOT EXCEED 4000MG IN ONE DAY CONTINUE TO TAKE THE GABAPENTIN PRESCRIBED IF YOU CONTINUE TO HAVE SEVERE PAIN CALL YOUR SURGEON SEEK IMMEDIATE CARE IF YOU DEVELOP WORSENED PAIN Thank [facility]. We cannot always find the exact cause of your symptoms during your initial visit. Please follow up with your primary care provider or specialist as needed to be rechecked or seek medical attention if your symptoms do not go away or get worse. If you develop any new or worsening symptoms and need after hours care, please go to nearest ER and/or call 911. If you have additional concerns or develop a change in your condition between 8am-10pm, please call [facility] at [phone] to help navigate your care. [email or web address] Not available 11/23/2019 09:58:05 06/03/2021 [id number] Sinusitis Instructions Basic Information Sinusitis is an inflammation of the lining of the sinuses. Sinuses are lined with mucous membranes and are filled with air. When sinuses become blocked, fluid can back up within sinuses and this creates a condition where the sinuses become swollen and can cause pain and other symptoms. Sometimes, this will allow germs such as viruses, bacteria and mold to grow and cause infection. Sinuses can become blocked due to the common cold, environmental allergies, deformities such as nose injuries or deviated septum, or growths such as polyps. Symptoms include facial pain and pressure, nasal discharge, ear pressure, having to clear the throat often, dental pain and diminished sense of smell and taste. At times fever and bad breath occur. Most cases of sinusitis (90-98 %) are viral. True bacterial sinusitis is actually quite rare. A popular belief is that is your nasal discharge is green, then it is bacterial and you need an antibiotic. Antibiotics are usually not indicated unless the following is present: symptoms last for 10 days of more and are not improving fever of at least 102 degrees facial pain that is constant for 3-4 days in a row a typical cold resolves after one week and then sudden return of symptoms with increased nasal discharge, headache and sinus pressure Instructions Medications: Decongestants: Rqld-egg-wvqqent decongestants such as sudafed are helpful. You should not use these for prolonged periods of time and they may not be contraindicated due to drug interactions with your regular medications or if you have medical problems such as high blood pressure. Ask your [employer]. decongestant sprays such as Afrin and Yury-synephrine may also help your symptoms. However, if theses are used for over 3 days in a row, the congestion can actually get worse when you stop using them. So, use sparingly. If you have high blood pressure, your [employer] may not recommend use. nasal steroid drops/spray These MAY help decrease the inflammation in the mucous membrane lining of the sinuses (there is no strong evidence to support this claim). They work best with regular use while you have your symptoms. They also work best if used a few minutes after sinus irrigation treatment (see below) Pain relief: Ibuprofen and Tylenol may be used for comfort. The maximum dose of Tylenol for adults is 4000 mg/day (or 2 extra strength tablets 4 times per day) and the recommended dose of Ibuprofen for adults 400 mg every 6 hours. Both of these medicines work best if you take them regularly for 3 days. Please follow the recommended dosage instructions on the bottle. Antibiotics: If your provider prescribed these for you, be sure that you complete the whole course. Self Care: Sinus irrigations: Obtain an ear bulb syringe from the pharmacy (a typical nose syringe, used often for infants, is too small). Cut the tip of the syringe so that it can fit snuggly in your nostril. Mix a cup of warm water with a teaspoon of non-iodized table salt and generous pinch of baking soda. Draw up some of the solution into the syringe. Plug one side of your nose while you insert the bulb syringe into the other side. Squeeze the syringe firmly but gently while you ? b reathe in? the solution through your nose. Alternate both sides until you complete the cup of solution. Do this 2-4 times per day. After each irrigation, be sure to clean the bulb syringe in a dilute bleach solution and rinse well. Local heat: Moisten a washcloth and place this over your sinuses (cheeks and around the eyes). Over the washcloth, place a heating pad set on low. Do this for 20 minutes 4-6 times per day Hydration: drink eight, 8 oz. glasses of clear liquid per day Follow up: See your regular MD or Ear Nose and Throat doctor (if recommended by your provider) within 10 days for follow up. Seek Care Immediately if you: -develop a rash -notice significant redness or swelling around your eye -have fever that does not respond to tylenol/ibuprofen or remains >101.4 (adults) > 100.4 (children) for greater than 3 days -have a stiff neck or severe headache If you develop any new or worsening symptoms and need after hours care, please go to nearest ER and/or call 911. If you have additional concerns or develop a change in your condition between 8am-10pm, please call [facility] at [phone] to help navigate your care. [email or web address] Not available 06/03/2021 15:24:52 Reason for Referral None Reported. Results Created Date Observation Date Name Description Value Unit Range Abnormal Flag Note LastModifiedBy Organization Detail LastModifiedTime 08/19/19 20 08/19/2019 creat inine , blood crea 0.5 mg/dL 0.6-1. 3 Not Available Spr - Home [address] [place], [address], 08/19/2019 20:44:44 08/19/19 20 08/19/2019 6+ iStat Na 140 mmol/ L 138-14 6 Not Available Spr - Home [address] [place], [address], 08/19/2019 20:44:38 08/19/19 20 08/19/2019 6+ iStat K 3.7 mmol/ L 3.5-4. 9 Not Available Spr - Home [address] [place], [address], 08/19/2019 20:44:38 08/19/19 20 08/19/2019 6+ iStat cL 108 mmol/ L 98-109 Not Available Spr - Home [address] [place], [address], 08/19/2019 20:44:38 08/19/19 20 08/19/2019 6+ iStat BUN 10 mg/dL 8-26 Not Available Spr - Home [address] [place], [address], 08/19/2019 20:44:38 08/19/19 20 08/19/2019 6+ iStat glu 98 mg/dL 70-105 Not Available Spr - [place] [address] [place], [address], 08/19/2019 20:44:38 08/19/19 20 08/19/2019 6+ iStat HCT 38 %_pcv 37-47 Not Available Spr - Home [address] [place], [address], 08/19/2019 20:44:38 08/19/19 20 08/19/2019 6+ iStat Hb 12.9 g/dL 12-17 Not Available Spr - [place] [address] [place], [address], 08/19/2019 20:44:38 08/03/19 20 08/03/2019 urina lysis , dipst ick Appearance cloudy Not Available Spr - H [address]me [address] [place], [address], 08/03/2019 17:19:58 08/03/19 20 08/03/2019 urina lysis , dipst ick Color yellow Not Available Spr - Home [address] [place], [address], 08/03/2019 17:19:58 08/03/19 20 08/03/2019 urina lysis , dipst ick Glucose negati ve Not Available Spr - Home [address] [place], [address], 08/03/2019 17:19:58 08/03/19 20 08/03/2019 urina lysis , dipst ick Bilirubin negati ve Not Available Spr - Home [address] [place], [address], 08/03/2019 17:19:58 08/03/19 20 08/03/2019 urina lysis , dipst ick Ketones NEG Not Available Spr - Home [address] [place], [address], 08/03/2019 17:19:58 08/03/19 20 08/03/2019 urina lysis , dipst ick Sp. Stow 1.015 Not Available Spr - Home [address] [place], [address], 08/03/2019 17:19:58 08/03/19 20 08/03/2019 urina lysis , dipst ick Blood NEG Not Available Spr - Home [address] [place], [address], 08/03/2019 17:19:58 08/03/19 20 08/03/2019 urina lysis , dipst ick pH 6.5 Not Available Spr - Home [address] [place], [address], 08/03/2019 17:19:58 08/03/19 20 08/03/2019 urina lysis , dipst ick Protein negati ve Not Available [facility] [address] [place], [address], 08/03/2019 17:19:58 08/03/19 20 08/03/2019 urina lysis , dipst ick Urobilirubin negati ve Not Available [facility] [address] [place], [address], 08/03/2019 17:19:58 08/03/19 20 08/03/2019 urina lysis , dipst ick Nitrites NEG Not Available [facility] - [facility] [address] [place], [address], 08/03/2019 17:19:58 08/03/19 20 08/03/2019 urina lysis , dipst ick Leukocytes + Not Available [facility] [address], [place], [address], 08/03/2019 17:19:58 11/01/19 20 11/01/2019 XR, lumbo sacra l spine LUMBAR SPINE W/ OBLIQ FINDIN GS: Lumbar verteb ral bodies show a mild degree of degene rative osteop hytic spurri ng. A mild amount of disc height reduct ion is seen. No acute osseou s injury is visual ized. Radiod ensiti es overli e the patien t, possib ly artifa ctual. Surgic al clips are seen. CONCLU DONOVAN: Mild degene rative change s. ELECTR ONICAL LY SIGNED BY Antonio ARMENDARIZO. 020 5:34:0 0 PM EDT. LUMBAR SPINE W/ OBLIQ Result s: Lumbar verteb ral bodies show a mild degree of degene rative osteop hytic spurri ng. A mild amount of disc height reduct ion is seen. No acute osseou s injury is visual ized. Radiod ensiti es overli e the patien t, possib ly artifa ctual. Surgic al clips are seen. Conclu donovan: Mild degene rative change s. Electr onical ly signed by Annemarie ARMENDARIZ.O. 020 5:34:0 0 PM EDT. [email or web address] [facility] ([facility]) [address] , [place], [address], 11/27/2019 11:20:00 Result Notes None recorded. Problems Name Problem SNOMED Code Status Onset Date Resolution Date Notes Provider Name and Address Organization Details Recorded Time Asthma 481664454 Active ANI MERRITT NP [address] [place], [address] , [place] [facility] 0 17:18:03 Problem Notes None recorded. Procedures Surgical History Date Name Laterality Status Provider Name and Address Organization Details Recorded Time 0 IV Start Procedure - DH completed ANI MERRITT NP [address] [place], [address], [place] [facility] 08/19/2019 20:40:42 Imaging Results Imaging Date Name Status LastModified by Organiz ation Details LastModified Time 11/01/2019 XR, lumbosacral spine completed [email or web address] [facility] ([facility]) [address] , [place], [address], 11/27/2019 11:20:00 Procedure Notes None recorded. Medical Equipment None Reported. Allergies Allergen ID Allergen Name Allergen Category Reaction Reaction Severity Criticality Documentation Date Start Date Code Code System Note Provider Name and Address Organization Details Recorded Time 590508 Bactrim medicatio n Not available Not available Not available 08/03/2019 29058 9 RxNorm ANI RENÉ , [employer] [address], [place], [address], [place] [facility] 0 17:09:16 014946 morphine medicatio n Not available Not available Not available 08/03/2019 7052 RxNorm ANI KRAUSJACINTO , CHRISTIANO [address], [place], [address], [place] [facility] 0 17:09:23 [id number] Inderal medicatio n Not available Not available Not available 08/03/2019 79971 0 RxNorm ANI KRAUSJACINTO , CHRISTIANO [address], [place], [address], [place] [facility] 0 17:09:56 [id number] Iodinated contrast media (substanc e) medicatio n Not available Not available Not available 08/03/2019 53928 2004 SNOMED ANI MERRITT NP [address], [place], [address], [place] [facility] 0 17:10:22 [id number] Product containin g penicilli n (product) medicatio n Not available Not available Not available 11/01/2019 28761 8001 SNOMED KINA PHILLIPS [address], [place], [place], [address], [place] [facility] 0 15:05:40 Medications Name Sig Start Date Stop Date Status Note LastModified by Organization Details LastModified Time cod liver cap active Not Available Not Available Not Available cyclobenzap rine 10 mg tablet TAKE 1 TO 2 TABLETS BY MOUTH TWICE DAILY FOR PAIN. MAX 4 TABLETS DAILY active Not Available Not Available No t Available Dramamine 50 mg tablet TAKE 1 TABLET BY MOUTH EVERY 6 HOURS NEEDED TRAVEL SICKNESS active Not Available Not Available No t Available methocarbam ol 500 mg tablet 1-2 tablets PO QID PRN back pain active Not Available Not Available No t Available desonide 0.05 % topical cream 08/02 completed Not Available Not Available Not Available metformin 500 mg tablet active Not Available Not Available Not Available clonidine HCl 0.1 mg tablet active Not Available Not Available Not Available prednisone 10 mg tablet 40 mg PO administe red on scene. Time administe red: active Not Available Not Available No t Available gabapentin 600 mg tablet active Not Available Not Available Not Available ipratropium 0.5 mg-albutero l 3 mg (2.5 mg base)/3 mL nebulizatio n soln active Not Available Not Available Not Available clindamycin HCl 300 mg capsule 08/02 completed Not Available Not Available Not Available Vitamin C 500 mg tablet active Not Available Not Available Not Available cetirizine 10 mg tablet active Not Available Not Available Not Available cefpodoxime 200 mg tablet TAKE 1 TABLET BY MOUTH 2 TIMES A DAY FOR 10 DAYS. active Not Available Not Available No t Available azithromyci n 250 mg tablet TAKE 2 TABLETS BY MOUTH TODAY, THEN TAKE 1 TABLET DAILY FOR 4 DAYS 06/03 completed Not Available Not Available Not Available tramadol 37.5 mg-acetamin ophen 325 mg tablet 08/02 completed Not Available Not Available Not Available fluconazole 150 mg tablet active Not Available Not Available Not Available cod liver oil capsule active Not Available Not Available Not Available sumatriptan 100 mg tablet TAKE 1 TAB DAILY NEEDED FOR MIGRAINE HEADACHE. MAY REPEAT AFTER 2 HRS IF NEEDED.MA X 2 TABS/DAY active Not Available Not Available No t Available hydrocodone 5 mg-acetamin ophen 325 mg tablet 08/30 completed Not Available Not Available Not Available meloxicam 15 mg tablet active Not Available Not Available Not Available FreeStyle Lancets 28 gauge USE TWICE DAILY DIRECTED FOR MONITORIN G GLUCOSE, DX CODE E11.9 active Not Available Not Available No t Available ondansetron HCl 4 mg tablet 08/02 completed Not Available Not Available Not Available famotidine 40 mg tablet active Not Available Not Available Not Available prednisone 20 mg tablet TAKE 1 TABLE BY MOUTH TWICE DAILY FOR 5 DAYS active Not Available Not Available No t Available estradiol 0.05 mg/24 hr weekly transdermal patch 08/02 completed Not Available Not Available Not Available prednisone 5 mg tablet 08/02 completed Not Available Not Available Not Available lidocaine 4 % topical cream active Not Available Not Available Not Available hydroxyzine HCl 50 mg tablet 08/02 completed Not Available Not Available Not Available melatonin 3 mg tablet active Not Available Not Available No t Available fexofenadin e 180 mg tablet active Not Available Not Available Not Available aspirin 81 mg tablet,felicia yed release TAKE 1 TABLET BY MOUTH EVERY DAY active Not Available Not Available No t Available Vitamins B Complex capsule active Not Available Not Available Not Available tramadol 50 mg tablet active Not Available Not Available No t Available acetaminoph en 500 mg tablet active Not Available Not Available Not Available risperidone 3 mg tablet TAKE 1 TABLET EVERY DAY TO BE TAKEN IN ADDITION TO 3 MG TWICE DAILY active Not Available Not Available No t Available Sudogest 30 mg tablet active Not Available Not Available No t Available ketorolac 30 mg/mL (1 mL) injection solution 60 mg IM administe red on scene. Time administe red: 1525 2019 active Not Available Not Available Not Avai lable guaifenesin 200 mg tablet 08/02 completed Not Available Not Available Not Available ketorolac 10 mg tablet 08/02 completed Not Available Not Available Not Available Serevent Diskus 50 mcg/dose powder for inhalation 08/02 completed Not Available Not Available Not Available carbamazepi ne ER 400 mg tablet,exte nded release,12 hr active Not Available Not Available Not Available oxycodone-a cetaminophe n 5 mg-325 mg tablet active Not Available Not Available No t Available alprazolam 0.5 mg tablet active Not Available Not Available Not Available famotidine 20 mg tablet active Not Available Not Available Not Available estradiol 1 mg tablet active Not Available Not Available No t Available tamsulosin 0.4 mg capsule 08/02 completed Not Available Not Available Not Available gabapentin 800 mg tablet active Not Available Not Available Not Available ropinirole 0.25 mg tablet active Not Available Not Available Not Available dicyclomine 20 mg tablet active Not Available Not Available Not Available meclizine 25 mg tablet active Not Available Not Available Not Available carbamazepi ne ER 200 mg tablet,exte nded release,12 hr 08/02 completed Not Available Not Available Not Available phenazopyri dine 100 mg tablet TAKE 1 TABLET 3 TIMES A DAY NEEDED FOR 2 DAYS. active Not Available Not Available No t Available cephalexin 500 mg capsule 06/03 completed Not Available Not Available Not Available pantoprazol e 40 mg tablet,felicia yed release TAKE 1 TABLET BY MOUTH TWICE A DAY active Not Available Not Available No t Available olopatadine 0.1 % eye drops active Not Available Not Available Not Available lisinopril 10 mg tablet active Not Available Not Available Not Available lidocaine 5 % topical patch APPLY 1 PATCH BY TOPICAL ROUTE ONCE DAILY (MAY WEAR UP TO 12HOURS.) active Not Available Not Available No t Available ibuprofen 400 mg tablet TAKE 2 TABLETS BY MOUTH EVERY 4 HOURS NEEDED FOR FEVER WITH FOOD OR MILK active Not Available Not Available No t Available orphenadrin e citrate ER 100 mg tablet,exte nded release active Not Available Not Available Not Available lactase 3,000 unit tablet TAKE ONE TABLET BY MOUTH WHEN FIRST BITE OF DAIRY-CON TAINING FOOD ONCE DAILY active Not Available Not Available No t Available Gas Relief Extra Strength 125 mg capsule active Not Available Not Available Not Available gabapentin 300 mg capsule active Not Available Not Available Not Available Banophen 25 mg capsule active Not Available Not Available N ot Available estradiol 2 mg tablet 08/02 completed Not Available Not Available Not Available diclofenac sodium 75 mg tablet,felicia yed release 08/30 completed Not Available Not Available Not Available vitamin B complex tablet active Not Available Not Available Not Available montelukast 10 mg tablet active Not Available Not Available Not Available hydroxyzine HCl 25 mg tablet active Not Available Not Available Not Available capsaicin 0.025 % topical cream active Not Available Not Available Not Available sodium chloride 0.9 % intravenous solution 500 mL administe red on scene. Time administe red: 08/30 completed Not Available Not Available Not Available nystatin 100,000 unit/gram topical powder 08/02 completed Not Available Not Available Not Available lorazepam 1 mg tablet TAKE 1 TABLET 30 MINS PRIOR TO MRI ON 03/16/2020 active Not Available Not Available No t Available epinephrine 0.3 mg/0.3 mL injection, auto-inject or active Not Available Not Available Not Available ibuprofen 600 mg tablet active Not Available Not Available Not Available methylpredn isolone 4 mg tablets in a dose pack 1 PACK/PACK ET BY MOUTH DAILY,X6 DAYS,INST R DIRECTED ON PACKAGE LABELING active Not Available Not Available No t Available Vitamin C 250 mg tablet active Not Available Not Available Not Available ondansetron 4 mg disintegrat ing tablet active Not Available Not Available N ot Available Zofran 2 mg/mL intravenous solution 4 mg IV administe red on scene. Time administe red: 2029 active Not Available Not Available Not Avai lable topiramate 100 mg tablet PLEASE SEE ATTACHED FOR DETAILED DIRECTION S active Not Available Not Available No t Available dicyclomine 10 mg capsule active Not Available Not Available Not Available sulindac 200 mg tablet TAKE 1 TABLET BY MOUTH TWICE A DAY NEEDED active Not Available Not Available No t Available prazosin 2 mg capsule active Not Available Not Available N ot Available naproxen 500 mg tablet Take 1 tablet twice a day by oral route for 14 days. 2019 active Not Available Not Available Not Avai lable mometasone 0.1 % topical cream active Not Available Not Available Not Available amoxicillin 875 mg-potassiu m clavulanate 125 mg tablet TAKE 1 TABLET BY MOUTH TWICE A DAY 10/31 completed Not Available Not Available Not Available amoxicillin 500 mg-potassiu m clavulanate 125 mg tablet 10/31 completed Not Available Not Available Not Available Ventolin HFA 90 mcg/actuati on aerosol inhaler active Not Available Not Available Not Available oxycodone 5 mg tablet TAKE 1 TABLET BY MOUTH TWICE DAILY NEEDED active Not Available Not Available No t Available One Daily Multivitami n tablet active Not Available Not Available Not Available aripiprazol e 10 mg tablet active Not Available Not Available Not Available aripiprazol e 15 mg tablet active Not Available Not Available Not Available cyclobenzap rine 5 mg tablet TAKE 1 TO 2 TABLETS BY MOUTH DAILY FOR 7 DAYS FOR JAW PAIN OR MUSCLE SPASM active Not Available Not Available No t Available metformin ER 750 mg tablet,exte nded release 24 hr active Not Available Not Available Not Available Xolair 150 mg subcutaneou s solution active Not Available Not Available N ot Available aripiprazol e 5 mg tablet TAKE 1 & 1/2 TABLETS BY MOUTH EVERY DAY active Not Available Not Available No t Available Alcohol Prep Pads USE TWICE DAILY DIRECTED FOR MONITORIN G GLUCOSE, DX CODE E11.9 active Not Available Not Available No t Available topiramate 50 mg tablet active Not Available Not Available Not Available nitrofurant oin monohydrate /macrocryst als 100 mg capsule 08/02 completed Not Available Not Available Not Available vitamin B complex-fol ic acid 0.4 mg tablet 08/02 completed Not Available Not Available Not Available Flovent HFA 220 mcg/actuati on aerosol inhaler active Not Available Not Available Not Available cholecalcif beth (vitamin D3) 25 mcg (1,000 unit) tablet active Not Available Not Available Not Available Fish Oil 340 mg-1,000 mg capsule 08/02 completed Not Available Not Available Not Available FreeStyle Lite Meter kit USE TWICE DAILY DIRECTED FOR MONITORIN G GLUCOSE, DX CODE E11.9 active Not Available Not Available No t Available FreeStyle Lite Strips USE TWICE DAILY DIRECTED FOR MONITORIN G GLUCOSE, DX CODE E11.9 active Not Available Not Available No t Available Lactase Fast Acting 9,000 unit tablet active Not Available Not Available Not Available diclofenac 1 % topical gel active Not Available Not Available Not Available cholecalcif beth (vitamin D3) 50 mcg (2,000 unit) tablet active Not Available Not Available Not Available Creon 24,000-76,0 00-120,000 unit capsule,del ayed release active Not Available Not Available Not Available Banophen 50 mg capsule active Not Available Not Available N ot Available Linzess 145 mcg capsule active Not Available Not Available Not Available Konsyl (sugar) 3.4 gram oral powder packet 08/02 completed Not Available Not Available Not Available Incruse Ellipta 62.5 mcg/actuati on powder for inhalation active Not Available Not Available N ot Available Spiriva Respimat 1.25 mcg/actuati on solution for inhalation 08/02 completed Not Available Not Available Not Available Qvar RediHaler 80 mcg/actuati on HFA breath activated aerosol active Not Available Not Available Not Available Clenpiq 10 mg-3.5 gram-12 gram/160 mL oral solution active Not Available Not Available Not Available Xolair 75 mg/0.5 mL subcutaneou s syringe active Not Available Not Available No t Available Xolair 150 mg/mL subcutaneou s syringe active Not Available Not Available No t Available Wixela Inhub 500 mcg-50 mcg/dose powder for inhalation active Not Available Not Available N ot Available Vitals Date Recorded Body temperature Respiratory rate Heart rate Oxygen saturation Oxygen saturation in Arterial blood by Pulse oximetry Systolic blood pressure Diastolic blood pressure Provider Name and Address Organization Details Last Updated DateTime 0 97.9 [degF] 14 /min 68 /min 97 % 97 % 118 mm[Hg] 80 mm[Hg] Not Available [facility] 0 20:20:07 Date Recorded Respiratory rate Oxygen saturation Oxygen saturation in Arterial blood by Pulse oximetry Heart rate Body temperature Systolic blood pressure Diastolic blood pressure Provider Name and Address Organization Details Last Updated DateTime 0 18 /min 97 % 97 % 75 /min 97.9 [degF] 106 mm[Hg] 64 mm[Hg] Not Available [facility] 0 16:13:19 Date Recorded Heart rate Body temperature Oxygen saturation Oxygen saturation in Arterial blood by Pulse oximetry Respiratory rate Systolic blood pressure Diastolic blood pressure Provider Name and Address Organization Details Last Updated DateTime 0 75 /min 97.2 [degF] 97 % 97 % 16 /min 112 mm[Hg] 68 mm[Hg] Not Available [facility] 0 15:09:28 Date Recorded Heart rate Oxygen saturation Oxygen saturation in Arterial blood by Pulse oximetry Body temperature Respiratory rate Systolic blood pressure Diastolic blood pressure Provider Name and Address Organization Details Last Updated DateTime 0 90 /min 98 % 98 % 98.3 [degF] 18 /min 112 mm[Hg] 58 mm[Hg] Not Available [facility] 0 09:52:46 Date Recorded Respiratory rate Oxygen saturation Oxygen saturation in Arterial blood by Pulse oximetry Body temperature Heart rate Systolic blood pressure Diastolic blood pressure Provider Name and Address Organization Details Last Updated DateTime 2 18 /min 98 % 98 % 97.7 [degF] 74 /min 114 mm[Hg] 68 mm[Hg] Not Available [facility] 2 14:57:34 Social History Question Answer Notes LastModified by Organizat ion Details LastModified Time Tobacco Smoking Status Former Smoker ANI MERRITT NP [address] [facility] [place], [address], [place] [facility] 08/03/2019 17:19:22 Do You Have An Advance Directive? No Information not available 08/03/2019 What Is Your Code Status? Full Code Information not available 08/03/2019 Excessive Alcohol Or Drug Use No Information not available 08/03/2019 How Many Years Have You Smoked Tobacco? 35 Information not available 08/03/2019 Sex: Unknown Functional Status None recorded. Mental Status None recorded. Family History Nothing Reported. Medical History Condition Response Diabetes Y Coronary Artery Disease N High Cholesterol N Pulmonary Embolism N Cancer N Hypertension Y Stroke N Asthma Y COPD N Depression Y Kidney Disease N Gynecological HistoryNo gynecological history recorded. Obstetrics History GPAL:G 0 P 0 0 0 0 Past Encounters Encounter ID Performer Location Encounter Start Date Encounter Closed Date Diagnosis/Indication Diagnosis SNOMED-CT Code Diagnosis ICD10 Code Diagnosis Note [id number] ANI MERRITT NP [facility] [address] [place] [address] 08/03/2019 17:07:49 08/04/2019 16:16:45 Abdominal pain 29294325 R10.9 [id number] ANI MERRITT NP [facility] [address] [place] [address] 08/19/2019 20:15:27 08/20/2019 17:21:09 Dizziness present 692807665 R42 Acute vomiting 76682443 R11.10 [id number] ANI MERRITT NP [facility] [address] [facility] [place] [address] 08/31/2019 16:09:02 09/03/2019 13:28:55 Sciatica 90412125 M54.32 [id number] KINA PHILLIPS [facility] [address] [place] [address] 11/01/2019 14:16:21 11/03/2019 15:44:39 Lumbago with sciatica 613636900 M54.42 [id number] KINA ROGERS [facility] [address] [place] [address] 11/23/2019 09:30:22 11/27/2019 10:52:45 Pain of right wrist [id number] 44907 M25.531 [id number] KINA Kothari [facility] [address] [place] [address] 06/03/2021 14:53:00 06/06/2021 19:57:36 Viral syndrome 619770413 B34.9 Proper Personal Protective Equipment (PPE), including {{gloves, eye protection , masks, and gowns, shoe covers florin ves, eye protection and masks* florin ves, eye protection gloves, eye protection , N95 mask, gown, and shoe covers wendy gical mask with face-shiel d, gloves, gown and shoe covers wendy gical mask with face-shiel d, gloves}} were donned and doffed approprzuri tuttle and all equipment cleaned using approved technique with germicidal disposable wipes prior to and after care of this patient according to [facility]'s infection prevention protocols. Overview/H istory: 60 yo female with 2-3 days of sinus pressure, congestion and clear drinage, dry cough, and sore throat is seen for eval. She was placed on pred 20mg QD x5d by her residential solar sales consultant yesterday. Exam: neuro exam wnl, ENT exam without significan t finding, AVSS, nontoxic appearing, NAD, no resp distress DDx considered , but not limited to:viral syndromesi nusitispha ryngitisAO Mtesion headache Plan/Discu ssion:-giv en collection of symptoms, viral syndrome most likley-giv en lenght of symptoms, no abx for bacterial sinustis indicated yet-she will continue her prednisone -APAP as needed for discomfort -saline nasal spray as needed-con tinue to push free fluid intake-and will discuss with her residential solar sales consultant sunday if there are no improvemen t of symptoms-i f symptoms worsen, she will see emergent re-eval Health Concerns Section Related Observation LastModified by Organization Detai ls LastModified Time None Recorded Concern Status LastModified by Organization Details LastModified Time None Recorded Advance Directives Directive N: Payers Encounter Date Sequence Insurance Name Policy Number Policy Valdez Covered Member ID Valdez Member ID Guarantor Name 08/19/2019 1 [facility] - DOS PRIOR TO 2022 - DUAL ELIGIBLE (MEDICARE REPLACEMENT/ADV ANTAGE - HMO) Elizabeth Leot [id number] Elizabeth Leot 08/31/2019 1 [facility] [employer] - DOS PRIOR TO 2022 - DUAL ELIGIBLE (MEDICARE REPLACEMENT/ADV ANTAGE - HMO) Elizabeth Perezgent [id number] Elizabeth Perezgent 11/01/2019 1 [facility] - DOS PRIOR TO 2022 - DUAL ELIGIBLE (MEDICARE REPLACEMENT/ADV ANTAGE - HMO) Elizabeth Perezgent [id number] Elizabeth Perezgent 11/23/2019 1 [facility] - DOS PRIOR TO 2022 - DUAL ELIGIBLE (MEDICARE REPLACEMENT/ADV ANTAGE - HMO) Elizabeth Perezgent [id number] Elizabeth Perezgent 06/03/2021 1 [facility] - DOS PRIOR TO 2022 - DUAL ELIGIBLE (MEDICARE REPLACEMENT/ADV ANTAGE - HMO) Elizabeth Huang [id number] Elizabeth Huang Notes Date Note Type Note Provider Name and Address Organization Details Recorded Time 08/19/2019 text/html Pt reports she h as a hx of vertigo, states it started to act up today around 0900. She reports taking 2 dose of meclizine without any relief of sx. She reports she has been vomiting today as well. Reports she vomited twice today. Pt states this feels typical for her when her vertigo starts to act up. She reports a wicked headache States that it feels like the room is spinning. She states that she has stayed on the couch most of the day and felt off balance when she had to get up to go to the bathroom. States that she last threw up about 1 hour ago. ANI MERRITT, CHRISTIANO [address], [place], [address], [place] [facility] 08/19/2019 21:17:01 08/31/2019 text/html Pt reports left hip pain that has been dx as sciatica. She has gone for an evaluation for PT and is awaiting insurance approval. Pt has been referred to a hip specialist at [facility] and confirmed that it was sciatica. Pt reports she has been taking APAP and using diclofenac gel to try and help with the pain. Pt reports that the pain has been a 10/ all weekend. Pt denies any significant relief of sx with use of APAP and diclofenac. She reports poor sleep d/t the pain. Pt has had xrays of the pelvis and hip performed. Reports radiating pain down her thigh. She reports she has been to the ER to be evaluated for the hip pain as well. ANI MERRITT, CHRISTIANO [address], [place], [address], [place] [facility] 08/31/2019 16:58:16 11/01/2019 text/html 59 yo female kno wn to and new to this provider c/o persistent left lumbar hip/leg sciatica. Has been seen by ortho and told nothing can be done for it. Is using Biofreeze, and alternating OTC Tylenol and Ibuprofen which is not helping. Has not had any xrays to evaluate for DDD in the lumbosacral area. Pain starts in left low back and extends down the left buttock into the left hip/groin and down the left lateral knee. Sometimes feels like the left leg is going to give out. Uses a walker to ambulate safely. Denies: saddle anesthesia or loss of B/B control. KINA PHILLIPS [address], [place], [address], [place] [facility] 11/01/2019 16:52:45 11/23/2019 text/html 59yoF known to D H pmhx asthma, depression, DM and HTN is sen today for R wrist pain. Patient has known Carpal tunnel is scheduled for 12/04/2019 for a R carpal tunnel Lysis. She is currently taking Ibuprofen 600mg every 8 hours and Tylenol 500-1000mg 4 times a day. She is taking Gabapentin and it was increased yesterday to have her take two tablets in the afternoon. She denies any other complaints. KINA ROGERS [address], [place], [address], [place] [facility] 11/23/2019 11:49:51 06/03/2021 text/html 60 yo female new to provider known to [facility] reports a sinus infection going on (+) sinus headache 2-3 dayspain now /10 improved with APAPpt reports she spoke with her residential solar sales consultant Lakshmi Luna yesterdayand she was prednisone 20mg QD x5dshe has not called them back since yesterdaynares are patent and she reports some clear to green drainageshe has some assoc sore throat, and dry cough KINA Kothari [address] [place] [address], [phone], [place] [facility] 06/03/2021 15:30:17 OBGyn Episode No OBEpisode recorded.
--- OUTSIDE RECORDS SUMMARY | 2024-04-21 11:27 | XMS_ITS | Encounter Summary ---
Author Organization [facility] Address [address] [place] [address] Care Team Providers Care Actuarial Associate Name Role Phone Clare Wilson Annemarie Primary Care Provider [phone] Encounter Details Date Type Department Care Team (Late Contact Info) Description 01/16/2024 Orders Only [facility] Surgery [address] [place], [place] [phone] Jesus Gillis MD [address] [place] [address] Social History Tobacco Use Types Packs/Day Years [...] Department Care Team (Late Contact Info) Description 06/06/2024 2:45 PM EDT Procedure visit [facility] Medicine [address] [place], [place] [phone] Sandy Snyder DO [address] [place] [address] 07/17/2024 11:30 AM EDT Follow-Up [facility] [address] [place] [phone] Luis Minor MD [address] [place] [address] documented as of this encounter Visit Diagnoses Not on filedocumented in this encounter Care Teams Actuarial Associate Relationship Specialty Start Date End Date Clare Wilson [address] [place] [phone] PCP - General Family Medicine 09/10/23 documented as of this encounter
--- OUTSIDE RECORDS SUMMARY | 2024-04-21 11:28 | XMS_ITS | Continuity of Care Document ---
Author Organization [facility] [place] [facility] Address [address] [place] [address] Care Team Providers Care Bellows Tester Name Role Phone HIM JANETH OTHER PONCHO BAHENA OTHER Assessment Encounter Date Assessment Date Assessment LastModified by Organization Details LastModified Time 03/27/2024 03/27/2024 I have reviewed and agree with the assessment and plan as documented by the culinary specialist. I provided real time medical direction for this encounter and was immediately available to provide additional phone based assistance as needed. History as noted by culinary specialist. Pt with history of bipolar disorder, seizure disorder, GERD, asthma. Pt reports that for the last 2 months she has had persistent URI symptoms with sore throat, productive cough and SOB. [facility] and alvarez had multiple negative Covid and flu tests. Pt has been using her albuterol MDI and completed a course of prednisone 5 days ago that had been prescribed for her asthma, but pt reports that the prednisone didn't help . She has also been treated with 5 days of azithromycin with no improvement. Today pt is reporting sore throat with odynophagia and hoarse voice. No dysphagia. No SOB or fevers. She is using her albuterol MDI and throat lozenges with only minimal relief. On exam, pt alert, no distress. Vitals normal. Voice is hoarse and raspy . Lungs clear, no wheezing. Throat: medic unable to visualize well. No swelling, edema, drooling or stridor. Rapid strep negative. Impression: Pt with history as noted, reporting about 2 months of persistent URI symptoms with productive cough and sore throat. She describes odynophagia but no dysphagia or fevers. Medic is unable to visualize posterior phayrnx on today's exam. Pt afebrile. Lungs clear. No drooling or stridor. Given pt's persistent symptoms with hoarse voice and pain, I feel that pt needs to be evaluated by ENT for direct visualization of her throat. No e/o abscess, angioedema or airway compromise on today's evaluation. Pt is told that she should continue her MDI and throat lozenges but needs to call her primary care team today to have them arrange for in office visit as well as ENT follow up. To primary care team: Please arrange for this pt to have in office close follow up evaluation as well as ENT follow up for evaluation of pt's persistent throat symptoms and hoarse voice. Pt instructed to seek medical attention right away with any worsening or new symptoms, which are reviewed with her. btils Not available 03/27/2024 12:43:25 Plan of Treatment Reminders Order Date Submit Date Provider Last Modified By Organization Details Last Modified Time Details Appointments None recorded . Lab rapid strep group A, throat 025 03/27/19 btils [facility], [address] [place] [address], [phone], 12:07:25 Referral None recorded . Procedures None recorded . Surgeries None recorded . Imaging None recorded . Medication Orders None recorded . Patient TargetsNo targets recorded. Patient InstructionsNo instructions recorded. Reason for Referral None Reported. Results Created Date Observation Date Name Description Value Unit Range Abnormal Flag Note LastModifiedBy Organization Detail LastModifiedTime 03/27/1903/27/2024 rapid strep group A, throa t Strep negati ve Not Available [address], [phone], 03/27/2024 11:54:46 Result Notes None recorded. Medical Equipment None Reported. Allergies Allergen ID Allergen Name Allergen Category Reaction Reaction Severity Criticality Documentation Date Start Date Code Code System Note Provider Name and Address Organization Details Recorded Time 2117 aspirin medicatio n Not available Not available Not available 04/30/2022 1191 RxNorm Not Available [facility] - production 03:41:14 2118 morphine medicatio n Not available Not available Not available 04/30/2022 7052 RxNorm Not Available [facility] production 4 03:41:14 2120 Augmentin medicatio n diarrhea Not available low 04/30/2022 46720 2 RxNorm GAURAV DHILLON MD [address] [facility],[address], [place], [phone], [employer] 4 09:58:09 4312 Bactrim medicatio n Not available Not available Not available 02/20/2023 99142 9 RxNorm Not Available [facility] - production 4 03:41:14 4313 sulfameth oxazole / trimethop rim medicatio n Not available Not available Not available 02/20/2023 99714 RxNorm Marita Ramos MD [address] [place] [address],[address], [place], [address], [employer] 14:13:42 4314 doxycycli ne Not available Not available Not available Not available 02/20/2023 3640 RxNorm Not Available [facility] - production 4 03:41:14 5895 Seroquel medicatio n Not available Not available Not available 09/30/2023 57355 RxNorm GAURAV DHILLON MD [address] [place] [address],[address], [place], [address], [employer] 4 18:08:17 5896 fluoxetin e medicatio n Not available Not available Not available 09/30/2023 4493 RxNorm GAURAV DHILLON MD [address] [place] [address],[address], [place], [address], [employer] 4 18:08:31 5897 nabumeton e medicatio n Not available Not available Not available 09/30/2023 64616 RxNorm GAURAV DHILLON MD [address] [place] [address],[address], [place], [address], [employer] 4 18:08:46 5898 propranol ol medicatio n Not available Not available Not available 09/30/2023 8787 RxNorm GAURAV DHILLON MD [address] [facility],[address], [place], [address], [employer] 4 18:09:03 7995 Product containin g penicilli n (product) medicatio n Not available Not available Not available 12/11/2023 24005 8001 SNOMED Not Available [facility] 4 03:41:14 Medications Name Sig [...] propionate 50 mcg/actuatio n nasal spray,suspen zoe [place] 1 spray every day by intranasal route. [...] blood by Pulse oximetry Body temperature Body height Body weight Systolic blood pressure Diastolic blood pressure Provider Name and Address Organization Details Last Updated DateTime 5 18 /min 68 /min 96 % 96 % 98 [degF] 154.94 cm 48045.2 72 g 128 mm[Hg] 80 mm[Hg] Not Available [facility] 5 11:44:14 Social History None recorded. Functional Status None recorded. Mental Status None recorded. Family History Nothing Reported. Medical History No medical history recorded. Gynecological HistoryNo gynecological history recorded. Obstetrics History GPAL:G 0 P 0 0 0 0 Past Encounters Encounter ID Performer Location Encounter Start Date Encounter Closed Date Diagnosis/Indication Diagnosis SNOMED-CT Code Diagnosis ICD10 Code Diagnosis Note [id number] Loi Wu MD [facility] [address] [place] [phone] 02/28/2024 13:48:17 02/28/2024 20:22:02 Upper respiratory infection 47705423 J06.9 [id number] Marita Ramos MD [facility] [address] [place] [phone] 03/05/2024 16:43:16 03/05/2024 19:19:50 Asthma [id number] J45.909 [id number] Maryanne Yip MD [facility] [address] [place] [phone] 03/15/2024 14:54:03 03/18/2024 16:38:13 Upper respiratory infection 45390916 J06.9 Evaluation in the field was performed by my culinary specialist colleague, as noted above, I provided real-time direction and supervisio n for this visit. 63yo F asthma, HTN p/w ongoing nasal congestion , cough. On prednisone x 48 hrs without improvemen t. Denies feveres, orthopnea, PND. On culinary specialist eval sat 97% rest also wnl, exam [...] shortness of breath, cough, chest pain, fever. [id number] Rogelio Vasquez MD [facility] [address] [place] [phone] 03/16/2024 10:41:49 03/18/2024 17:02:49 Viral upper respiratory tract infection 952605164 J06.9 Patient 4 days into prednisone course. Vitals stable. Taking inhalers at home though mild wheezing noted by culinary specialist and administer ed duoneb with good effect. Declined COVID/flu testing as out of window for treatment. Discussed red flag signs for which to seek higher level of care. [id number] Rangel Robledo MD [facility] [address] [place] [phone] 03/27/2024 11:44:09 03/27/2024 14:25:14 Sore throat 126975466 J02.9 Health Concerns Section Related Observation LastModified by Organization Detai ls LastModified Time None Recorded Concern Status LastModified by Organization Details LastModified Time None Recorded Payers Encounter Date Sequence Insurance Name Policy Number Policy Valdez Covered Member ID Valdez Member ID Guarantor Name 03/27/2024 1 [facility] - DOS ON OR AFTER 2022 - DUAL ELIGIBLE - LONG-TERM OPTIONS AND ONE CARE (MEDICARE REPLACEMENT/ADV ANTAGE - HMO) Elizabeth Huang [id number] Elizabeth Huang Notes Date Note Type Note Provider Name and Address Organization Details Recorded Time 03/27/2024 text/html This was a supervised home visit with culinary specialist Nithin Altamirano. [facility] Nurse Triage Notes (Barbara Campos - RN): Reason For Request: Sore throat, Hard to speak, voice comes and goes. Chief Complaints: Common cold symptoms, Cough PMH: COPD/Asthma, Severe Persistent Mental Illness (SPMI), Hypertension PMH Reviewed at 03/26/2024 - Allergies Reviewed at 03/26/2024 - :44 Comments: Patient calling in to place a referral, identified via name and . Patient with 7 weeks of cold symptoms, she reports being seen by [facility] several times, and covid/flu always negative. She reports a sore throat, laryngitis, an a croupy cough with light yellow phlegm. She denies chest pain, no shortness of breath, no congestion or wheezing, no fever/chills, no nausea, vomiting or diarrhea, no headache or body aches. She has been using her Proair inhaler with no relief. She is in no acute distress during intake, speaking in full, complete sentences. She is aware we cannot accommodate a visit this evening, she is agreeable to a visit tomorrow 03/27. Analyst [employer] Organization Information for Nithin Altamirano Legal Name: [employer] [address]: [address] [place] [address], Sales Data Analyst: Burton MARTINEZ No.: [id number] Analyst [employer] Intelligence POC Test Results from Nithin Altamirano Rapid strep test (11:24:07) Strep: - Attachments uploaded as part of this test result can be found under Documents section. .................. .................. .................. .................. .................. .................. .................. ............... [employer] Note From Nithin Altamirano: SC8 dispatched to the address listed above for the report of a female democrat with sore throat. Arrival on scene, patient found inside apartment seated in chair, alert and oriented x4, patent airway, breathing non labored speaking in complete sentences, voice very raspy, skin WPD. +/= Chest rise. -SOB, -CP, -NVD, -Trauma, -Fever. GCS 15. Lung sounds clear in all becerra. Patient reports that she has been experiencing productive cough with yellow sputum, sore throat, raspy voice, and congestion x7 weeks. Patient [facility] and tested negative for [facility]/FLU every time, advised she has not been tested for strep. Patient reports that she has complete course of Azithromycin with no improvement, reports she also completed course of Prednisone with no improvement. Patient reports she has been managing symptoms with albuterol inhaler with no improvement along which cough drops which have had some improvement. Patient reports normal fluid intake and has been compliant with medications. Patient denies any difficulty breathing, NVD or chest pain. Patient vital signs obtained as noted. Strep test performed which was negative. [facility] consulted, advised patient to continue with current regiment for symptoms management and to follow up with PCP for referral to ENT. Red flags discussed with patient and advised to go to the hospital if condition worsens. SC8 clear. .................. .................. .................. .................. .................. .................. .................. ............... [facility] Consulted: Rangel Robledo .................. .................. .................. .................. .................. .................. .................. ............... Disposition: Fulfilled Rangel Robledo MD [address] [facility],[address] [facility], [place], [phone], [facility] 03/27/2024 12:43:40 OBGyn Episode No OBEpisode recorded.
--- OUTSIDE RECORDS SUMMARY | 2024-04-21 11:28 | XMS_ITS | Encounter Summary ---
Author Organization [facility] Address [address] [place] [address] Care Team Providers Care Clinical Appeals Specialist Name Role Phone Clare Wilson Primary Care Provider [phone] Reason for Visit * Auth/Cert (Routine) Specialty Diagnoses / Procedures Referred By Contshanna t Referred To Contact Diagnoses Chronic left shoulder pain Chronic left shoulder pain [M25.512, G89.29] Procedures [place] SHLDR ARTHROSCOP,SURG,W/ROTAT CUFF REPR [place] SHLDR ARTHROSCOP,EXTEN DEBRIDE [place] REPAIR BICEPS LONG TENDON ARTHROSCOPY, SHOULDER, SURGICAL;?? WITH ROTATOR CUFF REPAIR ARTHROSCOPY, SHOULDER, SURGICAL;?? DEBRIDEMENT, EXTENSIVE TENODESIS OF LONG TENDON OF BICEPS Luis Minor MD [address] [place] [address] Phone: tel: fax: Referral ID Status Reason Start Date Expiration Date Visits Re quested Visits Authorized [id number] 10/03/2023 99 99 Encounter Details Date Type [...] Description 06/06/2024 2:45 PM EDT Procedure visit [address] [address] Sandy Snyder DO [address] [place] [address] 07/17/2024 11:30 AM EDT Follow-Up [address] [address] Luis Minor MD [address] [place] [address] documented as of this encounter Visit Diagnoses Diagnosis Shoulder pain- Primary Pain in joint, shoulder region documented in this encounter Admitting Diagnoses Diagnosis Shoulder pain Pain in joint, shoulder region documented in this encounter Care Teams Clinical Appeals Specialist Relationship Specialty Start Date End Date Clare Wilson [address] [place] [phone] PCP - General Family Medicine 09/10/23 documented as of this encounter
--- OUTSIDE RECORDS SUMMARY | 2024-04-21 11:28 | XMS_ITS | Clinical Summary ---
Author Organization [facility] Address [address] [place] [address] Care Team Providers Care Shell Machine Operator Name Role Phone Lexa Wilsonsun Sharpe Primary Care Provider [phone] Allergies Active Allergy Reactions Criticality Noted Date [...] mellitus 12/05/2021 Hearing loss 12/05/2021 Overview (12/05/2021): [facility] audiology History of total hysterectom y with bilateral salpingo-oophorectomy (BSO) 12/05/2021 Lower urinary tract infectious disease 2 Menopausal syndrome 12/05/2021 Obesity 12/05/2021 Osteoarthritis 12/05/2021 Pelvic pain in female 12/05/2021 Pernicious anemia 12/05/2021 Posttraumatic stress disorder 12/05/2021 Respiratory abnormalities 12/05/2021 Shoulder pain 12/05/2021 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 [facility] Asthma 06/16/2013 Overview (12/05/2021): Asthma Asthma Last Assessment & Plan: No acute symptoms, continue outpatient medications Seasonal allergic rhinitis 06/16/2013 Overview (12/05/2021): Allergic rhinitis Encounters Date Type Department Care Team Description 04/03/2024 2:00 PM EST Follow-Up [address] [address] Luis Minor MD Adhesive capsulitis of left shoulder (Primary Dx) 03/20/[address] [address] Telephone Intake, Staff PAC Appt Request - Established_Iván 03/05/[address] [address] Telephone Intake, Staff PAC Dr. Minor_ Left shoulder rotatorcuff_ PostOP 02/28/[address] [address] Telephone Intake, Staff pac- post op-Iván 01/31/2024 11:15 AM EST Follow-Up [address] [address] Luis Minor MD Left shoulder pain, unspecified chronicity (Primary Dx) 01/31/2024 Orders Only [address] [address] Mason Montesinos MD from Last 3 Months Family History [...] Description 06/06/2024 2:45 PM EDT Procedure visit [address] [address] Sandy Snyder DO [address] [place] [address] 07/17/2024 11:30 AM EDT Follow-Up [facility] [address] [place] [address] Luis Minor MD [address] [place] [address] Health Maintenance Due Date Last Done Comments Cologuard 1962 Colon Cancer Screening 1962 Colonoscopy 1962 FOBT / Fit Test 1962 HIV Screening 1962 Hepatitis C Screening 1962 Sigmoidoscopy 1962 Ophthalmology Exam 1972 Urine Microalbumin 1972 RSV Vaccine (60+ years old a nd patients) (1 - Risk 60-74 years 1-dose series) 2022 COVID-19 Vaccine (2023-2 5 season) 2023 10/22/2021, 06/11/2021, 01/02/2021, Additional history exists Alcohol/Substance Use Screening 02/13/2024 Depression Evaluation 02/13/2024 Social Drivers of Health Nia ual Screening 02/13/2024 CT Lung Cancer Screening (Baseline) 04/23/2024 04/24/2023 Hemoglobin A1C 06/07/2024 12/08/2023, 11/11/2022 Basic Metabolic Panel 02/17/2025 02/18/2024 , 02/11/2024, 12/09/2023, Additional history exists Mammogram 12/08/2025 12/09/2023 DTaP,Tdap,and Td Vaccines (5 - Td or Tdap) 05/26/2030 05/26/2020, 06/01/2018, 04/25/2013, Additional history exists Hepatitis B Vaccines Completed 04/01/2009, 10/22/2008, 09/21/2008 Zoster Vaccines Completed 02/11/2021, 09/07/2020 CT Lung Cancer Screening (12 months, previous LungRADS 1 or 2) Discontinued 04/24/2023 Pneumococcal Vaccine: 50+ Years Completed 10/22/2023, 11/23/2016, 04/09/2014, Additional history exists Influenza Vaccine Completed 10/31/2023, , 12/10/2020, Additional history exists Medical Devices Implanted Type Area Dupligraph Operator Device Identifier Shelf Expiration Date Model / Serial / Lot [place] Suture Double Loaded With White/Blue White/Black Suturetape [employer] - [id number] Implanted:Qty: 1 on 04/02/2020 by Luis Minor MD at [facility] Implant Right: Shoulder [employer] 01/11/2023 [id number] / / [id number] Procedures * Due to [place] iTagged law, this organization might not be sharing negative HIV tests. Procedure Name Priority Date/Time Associated Diagnosis Comments XR SHOULDER 2+ VW LEFT Routine 01/31/2024 11:41 AM EST Left shoulder pain, unspecified chronicity from Last 3 Months Results * Due to [place] iTagged law, this organization might not be sharing [...] obtain the completed interpretation. ? Workstation ID: [id number] Narrative 02/01/2024 5:52 PM EST COMPARISON: 07/15/2022. Resulting Agency Comment [id number] Procedure Note Johnson Bose MD - 02/01/2024 [...] possible to obtain thecompleted interpretation. Workstation ID: [id number] us Luis Minor MD IMG XR PROCEDURES Final Resul t from Last 3 Months Insurance [facility] [place] [id number] Advance Directives * Full Code (Latest Code Status on File) Date Activated Date Inactivated Comments 04/02/2020 10:29 AM 04/02/2020 6:36 PM Healthcare Agents on File Name Relationship Healthcare Agent Relationshi p Communication Pilar Olvera Sister Next of Kin [phone] (Kamala griffin) Care Teams Shell Machine Operator Relationship Specialty Start Date End Date Clare Wilson [address] [place] [phone] PCP - General Family Medicine 09/10/23
--- OUTSIDE RECORDS SUMMARY | 2024-04-21 11:28 | XMS_ITS | Continuity of Care Document ---
Author Organization [employer] [employer] [place] Address [address] [place] [address] Care Team Providers Care Manager Clinical Applications Name Role Phone HIM JANETH OTHER PONCHO BAHENA OTHER Assessment No assessment recorded. Plan of [...] 2120 Augmentin medicatio n diarrhea Not available [facility] 04/30/2022 07579 2 RxNorm GAURAV DHILLON MD [address] [facility],[address], [place], [address] [facility] [employer] 4 09:58:09 4312 Bactrim medicatio n Not available Not available Not available 02/20/2023 87809 9 RxNorm Not Available [facility] - production 4 03:41:14 4313 sulfameth oxazole / trimethop rim medicatio n Not available Not available Not available 02/20/2023 79877 RxNorm Marita Ramos MD [address] [place] [address],[address], [place], [address], [facility] 4 14:13:42 4314 doxycycli ne Not available Not available Not available Not available 02/20/2023 3640 Rx[facility] Not Available [facility] 4 03:41:14 5895 Seroquel medicatio n Not available Not available Not available 09/30/2023 06458 RxNorm GAURAV DHILLON MD [address] [place] [address],[address], [place], [address], [facility] 4 18:08:17 5896 fluoxetin e medicatio n Not available Not available Not available 09/30/2023 4493 RxNorm GAURAV DHILLON MD [address] [place] [address],[address], [place], [address], [facility] 4 18:08:31 5897 nabumeton e medicatio n Not available Not available Not available 09/30/2023 42429 RxNorm GAURAV DHILLON MD [address] [place] [address],[address], [place], [address], [facility] 4 18:08:46 5898 propranol ol medicatio n Not available Not available Not available 09/30/2023 8787 RxNorm GAURAV DHILLON MD [address] [place] [address],[address], [place], [address], [facility] 4 18:09:03 7995 Product containin g penicilli n (product) medicatio n Not available Not available Not available 12/11/2023 88257 8001 SNOMED Not Available [facility] 4 03:41:14 Medications Name Sig [...] propionate 50 mcg/actuatio n nasal spray,suspen zoe [place] 1 spray every day by intranasal route. [...] Not Available Vitals Date Recorded Heart rate Respiratory rate Oxygen saturation Oxygen saturation in Arterial blood by Pulse oximetry Body temperature Systolic blood pressure Diastolic blood pressure Provider Name and Address Organization Details Last Updated DateTime 67 /min 16 /min 99 % 99 % 98.5 [degF] 142 mm[Hg] 70 mm[Hg] Not Available [facility] - production 18:36:07 Social History None recorded. Functional Status None recorded. Mental Status None recorded. Family History Nothing Reported. Medical History No medical history recorded. Gynecological HistoryNo gynecological history recorded. Obstetrics History GPAL:G 0 P 0 0 0 0 Past Encounters Encounter ID Performer Location Encounter Start Date Encounter Closed Date Diagnosis/Indication Diagnosis SNOMED-CT Code Diagnosis ICD10 Code Diagnosis Note [id number] Rangle Robledo MD [facility] [address] [place] [address] 03/27/2024 11:44:09 03/27/2024 14:25:14 Sore throat 664479447 J02.9 [id number] Ninoska Juarez MD [facility] [address] [place] [address] 03/29/2024 17:58:44 03/30/2024 15:29:24 Pharyngitis 025917445 J02.9 [id number] Rangel Robledo MD [facility] [address] [place] [phone] 04/13/2024 12:47:37 04/14/2024 09:49:23 Viral upper respiratory tract infection 075924022 J06.9 Acute pharyngitis 740665 003 J02.9 [id number] Rogelio Vasquez MD [facility] [address] [place] [address] 04/17/2024 18:32:56 04/17/2024 21:18:53 Effusion of joint of right knee 8396201618 78434 M25.461 Effusion with difficulty walking; in past has required drainage. Given severity of pain advised to go to ED for evaluation and patient in agreement in order to get aspiration . Health Concerns Section Related Observation LastModified by Organization Detai ls LastModified Time None Recorded Concern Status LastModified by Organization Details LastModified Time None Recorded Payers Encounter Date Sequence Insurance Name Policy Number Policy Valdez Covered Member ID Valdez Member ID Guarantor Name 04/17/2024 1 [facility] - DOS ON OR AFTER 2022 - DUAL ELIGIBLE - [employer] AND [employer] (MEDICARE REPLACEMENT/ADV ANTAGE - HMO) Elizabeth Perezgent [id number] Elizabeth M Reina Notes Date Note Type Note Provider Name and Address Organization Details Recorded Time 04/17/2024 text/html [facility] Nurse Triage Notes (Nicky Seth): Reason For Request: right knee is swollen, pt experiencing pain while walking, knee is sensitive to the touch Chief Complaints: Extremity Pain, Wound Care, Rash PMH: COPD/Asthma, Severe Persistent Mental Illness (SPMI), Hypertension, Anxiety Disorder, Rheumatoid Arthritis PMH Reviewed at 04/17/2024 - 17: Allergies Reviewed at 04/17/2024 - :02 Comments: c/o right knee swelling, pain, hot to touch. Limited ROM, hard to bear weight on, uses walker @ baseline. Onset was one day. Hx of arthroscopy in the right knee, incidence has happened before. Feels like fluid around the knee. Educated about response time and verified info. Micheline RN Will place referral for cellulitis w/u, pain assessment, vs more interventions needed for drainage. Home health Aid is with this member at this time. ................... ................... ................... ................... ................... ................... ................... ........ Science Technician Note From Jacques Nix: Dispatched to the call address for the female with knee swelling and pain. Pt states last night she started having difficulty with her right knee stating it felt like it was going to give out. Pt advises she feels like there is fluid in her knee. She has had this issue before but does not remember what the treatment was. Pt denies fevers, n/v/d, chest pain or difficulty breathing. Pt was found sitting at kitchen table, CAOx4, airway open and patent, breathing non labored, able to speak in full sentences, -JVD, -HEENT, skin PWD with good turgor, mucous membranes pink and moist, +CMSx4, Afebrile, right knee with swelling on medial side with tenderness. [facility] consulted. Pt advised of ED for further work up and treatment. Pt agreeable. 911 called on behalf of the Pt. [facility] ALS unit transported Pt to [facility] ED per her request. All times are approx. ................... ................... ................... ................... ................... ................... ................... ........ [facility] Consulted: Víctor Vasquez ................... ................... ................... ................... ................... ................... ................... ........ Disposition: Jamie Vasquez MD [address] [facility],[address], [place], [address], MARY - [email or web address] 04/17/2024 20:43:33 OBGyn Episode No OBEpisode recorded.
--- OUTSIDE RECORDS SUMMARY | 2024-04-21 11:28 | XMS_ITS | Data Portability ---
Author Organization [place] [facility], Allergy Address [address] [address] Assessment No assessment recorded. Plan of Treatment Reminders Order Date Submit Date Provider Last Modified By Organization Details Last Modified Time Details Appointments Establish ed 15 2024 11:00A M RICKIE ARMSTRONG PA-C Not available Not available Not available Lab None recorded. Referral None recorded. Procedures [...] Address Organization Details Recorded Time Bilateral tinnitus [id number] 02 Active 2015 Tinnitus, bilateral ; Note: Date Diagnosed : 06/22/2015 2:10 PM (H93.13) Not Available [facility] 4 02:46:51 Otitis externa of bilateral ears [id number] 35971 Active 2015 Other otitis externa, bilateral ; Note: Date Diagnosed : 05/12/2015 12:59 AM (H60.8X3) Not Available [facility] 4 02:46:49 Dizziness and giddiness 636766276 Active 2015 Dizziness and giddiness ; Note: Date Diagnosed : 06/22/2015 2:10 PM (R42) Not Available [facility] 4 02:46:50 Arthralgi a of temporoma ndibular joint 13873914 Active 2015 Arthralgi a of temporoma ndibular joint; Note: Date Diagnosed : 05/12/2015 12:58 AM (M26.62) Not Available [facility] 4 02:46:52 Impacted cerumen in right ear 26277967582 35147 Active 2017 Impacted cerumen, right ear; Note: Date Diagnosed : 03/06/2017 4:03 PM (H61.21) Not Available [facility] 4 02:46:52 Sensorine ural hearing loss of bilateral ears 085548176 Active 2015 Sensorine ural hearing loss, bilateral ; Note: Date Diagnosed : 06/22/2015 2:10 PM (H90.3) Not Available [facility] 4 02:46:54 Impacted cerumen of bilateral ears 61364467035 57115 Active 2016 Impacted cerumen, bilateral ; Note: Date Diagnosed : 08/08/2016 2:34 PM (H61.23) Not Available [facility] 4 02:46:56 Diffuse otitis externa 21111594 Active 2018 Diffuse otitis externa, right ear; Note: Date Diagnosed : 02/25/2018 4:53 PM (H60.311) Not Available [facility] 4 02:46:56 Nasal congestio n 73357687 Active 2023 JUAN PABLO KABA MD [address],[place] [address], [place], [address] , [facility] 4 21:32:56 Foreign body in right ear 86582690971 719259 Active 2023 JUAN PABLO KABA MD [address],[facility] [address], [place], [address] , [facility] - [facility] 4 21:33:01 Problem Notes None recorded. Procedures Surgical History Date Name Laterality Status Provider Name and Address Organization Details Recorded Time Removal of foreign body from ear canal completed JUAN PABLO KABA MD [address] [facility], [place], [address], [facility] 10/07/2023 21:35:30 Imaging Results Imaging Date Name Status LastModified by Organiz ation Details LastModified Time 05/11/2018 imaging/diagn ostic result [...] oil oral 2015 active Medicati on ID: 106248 D uration Value: 23 Brand Name: mineral [...] mg tablet 2015 active Medicati on ID: 680556 D uration Value: 5 Brand Name: naproxen [...] mg tablet 2015 active Medicati on ID: 643505 D uration Value: 30 Brand Name: ranitidi [...] mg tablet 02/25 completed Medicati on ID: 640536 D uration Value: 30 Brand Name: sertrali ne Send Method: E-Prescr ibed Sub s Allowed: subs OK Medic ationGen ericName : sertrali ne Not Available Not Available Not Available prednison e 5 mg tablet active Not Available Not Available Not Available quetiapin e 200 mg tablet 02/25 completed Medicati on ID: 836403 D uration Value: 30 Brand Name: quetiapi [...] mg tablet 03/07 completed Medicati on ID: 454828 D uration Value: 10 Prescri bed By Name: CELIO Herrera nd Name: ciproflo xacin HCl Send Method: E-Prescr ibed Sub s Allowed: subs OK Speci al Instruct ion: 1 po BID for 10 days Med icationG enericNa me: ciproflo xacin HCl Not Available Not Available Not Available aspirin 81 mg tablet,de layed release active Not Available Not Available Not Available tramadol 50 mg tablet 02/25 completed Medicati on ID: 534338 D uration Value: 30 Brand Name: tramadol Send Method: E-Prescr ibed Sub s Allowed: subs OK Speci al Instruct ion: TAKE 2 TABLETS BY MOUTH 3 TIMES A DAY Medi cationGe nericNam e: tramadol Not Available Not Available [...] 2 hr 2015 active Medicati on ID: 914832 D uration Value: 30 Brand Name: carbamaz [...] mg capsule 2015 active Medicati on ID: 960388 D uration Value: 12 Brand Name: progeste [...] mg capsule 02/25 completed Medicati on ID: 456494 D uration Value: 30 Brand Name: gabapent [...] mg tablet 2015 active Medicati on ID: 565336 D uration Value: 30 Brand Name: diazepam Send Method: E-Prescr ibed Sub s Allowed: subs OK Medic ationGen ericName : diazepam Not Available Not Available Not Available amoxicill in 875 mg-potass ium clavulana te 125 mg tablet 05/29 completed Medicati on ID: 205723 D uration Value: 20 Reason: () Brand [...] ous solution 2015 active Medicati on ID: 224870 D uration Value: 28 Brand Name: Xolair S end Method: E-Prescr ibed Sub s Allowed: subs OK Medic ationGen ericName : Xolair Not Available Not Available Not Available Ciprodex 0.3 %-0.1 % ear drops,shakeel pension 4 drop into both ears 2015 active Medicati on ID: 386054 D uration Value: 7 Prescri bed By [...] n capsules 2015 active Medicati on ID: 556642 D uration Value: 30 Brand Name: Spiriva [...] mg capsule 2015 active Medicati on ID: 871402 D uration Value: 20 Brand Name: butalbit [...] SNOMED-CT Code Diagnosis ICD10 Code Diagnosis Note [id number] JUAN PABLO KABA MD [facility] [address] [place] [address] 10/02/2023 09:52:16 10/02/2023 12:00:59 Foreign body in right ear [id number] 9818784 T16.1XXA Nasal congestion 9547066 0 R09.81 63-year-ol d female presents today [...] Member ID Guarantor Name 10/02/2023 1 [facility] - DOS ON OR AFTER 2022 - MEDICARE ADVANTAGE [place] (MEDICARE REPLACEMENT/ADV ANTAGE - PPO) Elizabeth Reina [id number] Elizabeth Huang Notes Date Note Type Note Provider Name and Address Organization Details Recorded Time 10/02/2023 text/html 63-year-old femevita carrington presents today for evaluation of nasal [...] pain. No epistaxis. JUAN PABLO KABA MD [address] [place] [address], [place], [address], [facility] 10/07/2023 21:36:00 OBGyn Episode No OBEpisode recorded.
--- OUTSIDE RECORDS SUMMARY | 2024-04-21 11:29 | XMS_ITS | Continuity of Care Document ---
Author Organization [email or web address], [place] Address [address] [place] [address] Care Team Providers Care Sales Representative Public Utilities Name Role Phone HIM JANETH OTHER PONCHO BAHENA OTHER Assessment Encounter Date Assessment Date Assessment LastModified by Organization Details LastModified Time 04/13/2024 04/13/2024 I have reviewed and agree with the assessment and plan as documented by the plant operations worker. I provided real time medical direction for this encounter and was immediately available to provide additional phone based assistance as needed. History as noted by plant operations worker. Pt with history of COPD, ex smoker, quit about 12 yrs ago. She reports she has had sore throat and hoarse voice for 2 months. She has had intermittent cough as well as congestion as well, but her sore that and hoarse voice have persisted. She is currently on a course of cefuroxime prescribed by her doctor with no improvement. She has also been treated recently with a course of prednisone with no change in symptoms. She denies any SOB or fevers. No dysphagia. On exam, pt afebrile. Throat appears normal except for mild erythema. Lungs with slight exp wheezing. Rapid covid, flu and strep all negative. Impression: Pt with 2 months of persistent sore throat, describing painful swallowing and hoarse voice with no dysphagia or stridor. Symptoms have persisted despite antibiotics and course of prednisone. Symptoms may be related to prolonged viral infection but are concerning for possible laryngeal or vocal cord pathology. Pt should have close follow up with ENT for direct laryngoscopy. This is all reviewed with the pt. Pt is told that she needs to call her primary care team tomorrow to discuss her symptoms and to request that they refer her to ENT this week. Pt instructed to seek medical attention right away with any worsening or new symptoms, which are reviewed with her. To primary care team: Please follow up with patient tomorrow and arrange for close ENT follow up and evaluation. [email or web address] Not available 04/13/2024 13:10:03 Plan of Treatment Reminders Order Date Submit Date Provider Last Modified By Organization Details Last Modified Time Details Appointments None recorded. Lab rapid strep group A, [facility] [address] [place] [address], [id number], 5 12:55:09 rapid SARS CoV 2 Ag, QL [place], respiratory specimen [facility] [address] [place] [address], [id number], 5 12:55:09 rapid flu (A+B) 2024 025 [facility], [address] [place] [address], [id number], 5 12:55:09 Referral None recorded. Procedures None recorded. Surgeries [...] Not Available [facility] - production 4 03:41:14 0 Augmentin medicatio n diarrhea Not available low 04/30/2022 58222 2 RxNorm GAURAV DHILLON MD [address] [place] [address],[address], [place], [phone], [facility] - [employer] [facility] 4 09:58:09 4312 Bactrim medicatio n Not available Not available Not available 02/20/2023 05429 9 RxNorm Not Available [facility] - production 03:41:14 4313 sulfameth oxazole / trimethop rim medicatio n Not available Not available Not available 02/20/2023 58111 RxNorm Marita Ramos MD [address] [place] [address],[address], [place], [phone], [employer] 14:13:42 4314 doxycycli ne Not available Not available Not available Not available 02/20/2023 3640 RxNorm Not Available [facility] - production 03:41:14 5895 Seroquel medicatio n Not available Not available Not available 09/30/2023 52161 RxNorm GAURAV DHILLON MD [address] [place] [address],[address], [place], [phone], [employer] 18:08:17 5896 fluoxetin e medicatio n Not available Not available Not available 09/30/2023 4493 RxNorm GAURAV DHILLON MD [address] [place] [address],[address], [place], [address], [employer] 4 18:08:31 5897 nabumeton e medicatio n Not available Not available Not available 09/30/2023 94753 RxNorm GAURAV DHILLON MD [address] [place] [address],[address], [place], [address], [employer] 4 18:08:46 5898 propranol ol medicatio n Not available Not available Not available 09/30/2023 8787 RxNorm GAURAV DHILLON MD [address] [place] [address],[address], [place], [address], [employer] 4 18:09:03 7995 Product containin g penicilli n (product) medicatio n Not available Not available Not available 12/11/2023 13282 8001 SNOMED Not Available [facility] - production 03:41:14 [...] injection solution 30 mg IM x 1 03/19/ 2023 active Not Available Not Available Not [...] propionate 50 mcg/actuatio n nasal spray,suspen zoe [place] 1 spray every day by intranasal route. [...] Recorded Heart rate Body weight Respiratory rate Body temperature Oxygen saturation Oxygen saturation in Arterial blood by Pulse oximetry Body height Systolic blood pressure Diastolic blood pressure Provider Name and Address Organization Details Last Updated DateTime 5 85 /min 44776.1 52 g 18 /min 98.4 [degF] 94 % 94 % 154.94 cm 133 mm[Hg] 75 mm[Hg] Not Available [facility] - production 5 12:47:43 Social History None recorded. Functional Status None recorded. Mental Status None recorded. Family History Nothing Reported. Medical History No medical history recorded. Gynecological HistoryNo gynecological history recorded. Obstetrics History GPAL:G 0 P 0 0 0 0 Past Encounters Encounter ID Performer Location Encounter Start Date Encounter Closed Date Diagnosis/Indication Diagnosis SNOMED-CT Code Diagnosis ICD10 Code Diagnosis Note [id number] Rogelio Vasquez MD Main - [facility] [address] 03/16/2024 10:41:49 03/18/2024 17:02:49 Viral upper respiratory tract infection 148388104 J06.9 Patient 4 days into prednisone course. Vitals stable. Taking inhalers at home though mild wheezing noted by plant operations worker and administer ed duoneb with good effect. Declined COVID/flu testing as out of window for treatment. Discussed red flag signs for which to seek higher level of care. [id number] Rangel Robledo MD Main - [facility] [address] [place] [phone] 03/27/2024 11:44:09 03/27/2024 14:25:14 Sore throat 305520391 J02.9 [id number] Ninoska Juarez MD Main - [facility] [address] [place] [phone] 03/29/2024 17:58:44 03/30/2024 15:29:24 Pharyngitis 013790370 J02.9 [id number] Rangel Robledo MD Main - [facility] [address] [place] [address] 04/13/2024 12:47:37 04/14/2024 09:49:23 Viral upper respiratory tract infection [id number] J06.9 Acute pharyngitis 096182 003 J02.9 Health Concerns Section Related Observation LastModified by Organization Detai ls LastModified Time None Recorded Concern Status LastModified by Organization Details LastModified Time None Recorded Payers Encounter Date Sequence Insurance Name Policy Number Policy Valdez Covered Member ID Valdez Member ID Guarantor Name 04/13/2024 1 [facility] - DOS ON OR AFTER 2022 - DUAL ELIGIBLE - ALF OPTIONS AND ONE CARE (MEDICARE REPLACEMENT/ADV ANTAGE - HMO) Elizabeth Huang [id number] Elizabeth Huang Notes Date Note Type Note Provider Name and Address Organization Details Recorded Time 04/13/2024 text/html This was a super vised home visit with plant operations worker Cheyanne Wilson. CRC Nurse Triage Notes (Alberto Morocho): Reason For Request: sick since Feb 12/voice is lost Patient Reports: Needs to sleep sitting up, can? t catch breath; Cough, fever greater than 2 days ; History of asthma, increased use of inhaler; COPD; Sputum increase ; Cough; Shortness of breath with exertionDenies: Increased work of breathing/labored ? with or without fever Unable to speak in full sentences without distress Discoloration of skin -cyanosis Shortness of breath in setting of confusion Lower extremity swelling Pain with inspiration Chief Complaints: Common ColdPMH: COPD/Asthma, Severe Persistent Mental Illness (SPMI), HypertensionPMH Reviewed at 04/13/2024 - 11:34Allergies Reviewed at 04/13/2024 - 11:34Comments: Costumed Character Entertainer verified the Pt.'s name//address and phone number. Education provided on the response time and the Pt. was advised to monitor reported s/s and seek emergency treatment if needed. Pt calling reporting she has been feeling [...] s/s and seek emergency treatment if needed - [facility]. ER treatment declined Cloth Finisher Organization Information for Cheyanne Wilson Legal Name: [facility]?Address: [address] [place] [id number], Medical Director: Burton Kruse [facility] No.: [id number] Cloth Finisher POC Test Results from Cheyanne Wilson - MING Rapid strep test (12:41:36)Strep: -Attachments uploaded as part of this test result can be found under Documents section. Rapid COVID antigen (12:42:22)COVID: -Attachments uploaded as part of this test result can be found under Documents section. Rapid influenza antigen (12:42:23)Flu: - ..................... ..................... ..................... ..................... ..................... ..................... ............... Cloth Finisher Note From Cheyanne Wilson: [facility] makes pt contact. She is walking around her apartment talking on the phone. She is smiling and not in acute distress. Her voice is hoarse w/ an airy quality to it. No stridor or sonorous respirations are present and she has no obvious neurological s/s present. Pt endorses being sick w/ a URI since the beginning of February and she got laryngitis the first part of March and has no success in regaining the voice. She says she has tried everything including hot tea and lemon, gargling w/ warm salt water, throat lozenges, and is currently on an abx and has a few days left on the course. Pt has an appointment w/ her PCP tomorrow and a pulmonary functions test on Sunday. She denies any diagnostic throat scopes on her vocal cords. She is denying fevers/chills, n/v/d, cp, and sob. [facility] obtains vistal signs and pt is assessed. Lungs present w/ expiratory wheezes. Throat appears to have some irritation, but no drainage, swelling, or pustules are noted. Neck is supple, trachea is midline w/ no swelling noted. Auscultation of the throat is clear. Pt is swabbed for COVID/flu, and strep A and all tests are negative. [facility] contacts [facility] and discusses the above. [facility] recommends pt speak w/ her PCP about seeing an ENT for a scope of her vocal cords. [facility] will send a note to pt's primary care team w/ the recommendation as well and recommends pt continue w/ her current course of care. Pt is amendable to the plan. [facility] is clear. Report completed by ROULA Wilson [id number]. [facility] Lab Orders: rapid strep group A, throat: Performed rapid SARS CoV 2 Ag, QL IA, respiratory specimen: Performed rapid flu (A+B): Performed ..................... ..................... ..................... ..................... ..................... ..................... ............... [facility] Consulted: Rangel Robledo ..................... ..................... ..................... ..................... ..................... ..................... ............... Disposition: Fulfilled Rangel Robledo MD [address] [facility],[address], [place], [address], FAHAD GALEANA 04/13/2024 15:27:33 OBGyn Episode No OBEpisode recorded.
== END 2024-04-21 10:30 | disposition home or self-care (01) ==
PROVIDERS: Visit Provider Internal Medicine
DX: M25.512 Pain in left shoulder (principal)
CPT/HCPCS: 64418; 76942

== ENCOUNTER → 2024-04-21 10:15 | Outpatient (BNVA) | payer OTHER, SELFPAY | PROVIDERS: Visit Provider Internal Medicine | DX: M25.512 Pain in left shoulder (principal) | CPT/HCPCS: 64418 ==

== ENCOUNTER 2024-05-06 13:12 | Outpatient (AMB) | payer OTHER, SELFPAY ==
[2024-05-06 13:14] VITALS: BP 141/63; PULSE 70; O2SAT 96; BMI 32.9
--- NOTE | 2024-05-06 13:14 | MHC.OFFVIS ---
Vital Signs 05/06/24 13:14 Height 5 ft 1 in Weight 174 lb 3 oz BMI 32.9 BP 141/63 H Blood Pressure Location Rt brachial Position Sitting Pulse 70 Pulse Source Pulse Oximeter Pulse Oximetry (%) 96 Oxygen Delivery Method Room Air Intake Visit Reasons: FU for procedure after NB inj Intake Note: Pain today 07/22 Nanoelectronics Engineer Required: No Accompanied by: Store Grocery Merchandiser Allergies cephalexin Allergy (Intermediate, Verified 05/06/24 13:16) Diarrhea Iodinated Contrast Media [IV CONTRAST] Allergy (Intermediate, Verified 05/06/24 13:16) DIFF BREATHING morphine [MORPHINE] Allergy (Intermediate, Verified 05/06/24 13:16) HIVES nabumetone [NABUMETONE] Allergy (Intermediate, Verified 05/06/24 13:16) HIVES sulfamethoxazole [From BACTRIM] Allergy (Intermediate, Verified 05/06/24 13:16) HIVES trimethoprim [From BACTRIM] Allergy (Intermediate, Verified 05/06/24 13:16) HIVES dicloxacillin Allergy (Unknown, Verified 05/06/24 13:16) Rash dyclonine Allergy (Unknown, Verified 05/06/24 13:16) Unknown propranolol [Inderal LA] Allergy (Unknown, Verified 05/06/24 13:16) unknown quetiapine [Seroquel] Allergy (Unknown, Verified 05/06/24 13:16) rash seafood Allergy (Unknown, Verified 05/06/24 13:16) Unknown Sulfa (Sulfonamide Antibiotics) Allergy (Unknown, Verified 05/06/24 13:16) hives amoxicillin [From Augmentin] Allergy (Verified 05/06/24 13:16) stomach pain clavulanic acid [From Augmentin] Allergy (Verified 05/06/24 13:16) stomach pain polyethylene glycol [From Golytely] Adverse Reaction (Severe, Verified 05/06/24 13:16) Hallucinations polyethylene glycol 3350 [From Golytely] Adverse Reaction (Severe, Verified 05/06/24 13:16) Hallucinations potassium chloride [From Golytely] Adverse Reaction (Severe, Verified 05/06/24 13:16) Hallucinations sodium [From Golytely] Adverse Reaction (Severe, Verified 05/06/24 13:16) Hallucinations sodium bicarbonate [From Golytely] Adverse Reaction (Severe, Verified 05/06/24 13:16) Hallucinations sodium chloride [From Golytely] Adverse Reaction (Severe, Verified 05/06/24 13:16) Hallucinations sodium sulfate [From Golytely] Adverse Reaction (Severe, Verified 05/06/24 13:16) Hallucinations doxycycline [DOXYCYCLINE] Adverse Reaction (Intermediate, Verified 05/06/24 13:16) NAUSEA & VOMITTING From INDERAL Allergy (Intermediate, Uncoded 04/21/24 10:19) RASH Codeine Sulfate Allergy (Unknown, Uncoded 04/21/24 10:19) Unknown HPI Comments Details: The patient is a 63-year-old female for follow up for left shoulder pain. She underwent diagnostic left suprascapular nerve block on April 21, which initially offered her full pain relief for a four-day period. This intervention enabled her to resume activities involving lifting her arm and reaching overhead without pain and improved her sleep quality. However, the pain relief was temporary, and the symptoms re-emerged. Previously, the patient reported disturbances in sleep and compromised use of her left arm due to the pain. We reviewed Sprint peripheral nerve stimulation device and shoulder RFA to offer extended pain relief. Patient would like to proceed with Sprint PNS trial. Denies any recent cough, cold, infection, fever or any significant changes in medical history since last office visit. Past Procedures: 04/21/24:Diagnostic left suprascapular nerve block-100% pain for 4 days PRIOR: Patient is a 63 years old female with history of arthritis, spinal stenosis, anxiety and depression, recent left shoulder surgery 01/2024 at [facility], right carpal tunnel release 09/2022, COPD, asthma, presents today for initial evaluation of left elbow pain and left shoulder pain. She was referred to our office by [facility]. Patient reports cortisone injections are no longer effective and she is interested in alternative treatment options. She resides in [facility] and is accompanied by STATEMENT CLERKS SUPERVISOR staff. Patient reports global left shoulder and elbow pain with localized tenderness to anterior and posterior aspects of shoulder and lateral aspect of elbow without any swelling, redness or warmth. Pain affects her daily activities and functioning, mood, sleep, social interactions and quality of life. Denies any neck pain, fever or chills, dizziness, chest pain, shortness of breath, numbness or tingling, bladder or bowel dysfunction or saddle anesthesia. Location: Left shoulder and left elbow Duration: Chronic pain >1 year, recent left shoulder surgery at [facility] Characteristics of symptom or complaint: aching, sharp, dull,tingling Aggravating or associated factors: Movements, ROM, lifting, pulling, overhead reaches, cold weather Relieving factors: Rest, avoiding using left arm, elevation, Tylenol, NSAID, gabapentin Treatment: Injections at Orthopedics, recent left shoulder surgery at [facility] Medical History Spinal stenosis TMJ (dislocation of temporomandibular joint) Migraine COPD (chronic obstructive pulmonary disease) Asthma Depression Anxiety Prediabetes Arthritis of right knee Umbilical hernia Chronic idiopathic constipation Surgical History History of shoulder surgery (~01/2024) History of carpal tunnel release Hx of colonoscopy History of esophagogastroduodenoscopy (EGD) Hx of hand surgery H/O eye surgery Hx of hysterectomy Family History Father Bone cancer Mother Diabetes Family/Other Family history of breast cancer Social History Household Members: None Housing: Apartment Do you presently have visiting nurse or other home services: Yes (nursing once a week, home health aid 4x week) Alcohol intake: current Alcohol intake frequency: does not drink Patient Tobacco Use Status: Former Tobacco user service: No Review of Systems Const All systems reviewed & are unremarkable except as noted in HPI and below Physical Exam Vital Signs: Last Vital Signs Pulse 70 05/06/24 13:14 BP 141/63 H 05/06/24 13:14 Pulse Ox 96 05/06/24 13:14 Oxygen Delivery Method Room Air 05/06/24 13:14 BMI result Body Mass Index 32.9 General: Appears afebrile. Alert and oriented. Mood and affect appropriate. Follows and participates in conversation appropriately. Respiratory effort is unlabored. No cough. Able to transition from sit to stand unassisted. Uses walker with seat for ambulation. Ambulates with bilaterally normal heel strike and toe off. Extrem Left upper extremity: shoulder/upper arm (Limited ROM, increased pain with internal rotation. Limited overhead reach) Details: inspection abnormal, tenderness (global left shoulder) and other (well healed scars); no swelling, no ecchymosis, no crepitus and no unsual warmth Results Reviewed Results Reviewed: XR ELBOW, LEFT 03/12/23 CLINICAL INFORMATION: Pain in unspecified elbow. COMPARISON: None available. TECHNIQUE: AP, lateral, and oblique views of the left elbow. FINDINGS: Small rounded calcifications in the superficial soft tissues. Alignment preserved. Mild spurring along the dorsal aspect of the olecranon. Mild degenerative changes with spurring along the ventral aspect of the elbow. No significant joint effusion. IMPRESSION: 1. Mild degenerative changes. 2. Recommend follow up images in 10-14 days if fracture is suspected. Assessment & Plan Assessment & Plan (1) Left shoulder pain: Code(s): M25.512 - Pain in left shoulder Category: Medical (2) History of shoulder surgery: Onset Date: ~01/2024 Code(s): Z98.890 - Other specified postprocedural states Category: Surgical Plan Given excellent results with recent left diagnostic suprascapular nerve block, we discussed the potential use of a Sprint peripheral nerve stimulation device, which may offer pain relief for up to 8-10 months. The patient was informed that insurance approval is necessary, and we will proceed once obtained. Alternatively, radiofrequency ablation RFA) was discussed as a secondary option if the Sprint device does not succeed. Weekly visits will be necessary for eight weeks, following which pain will be monitored and weekly dressing changes will be conducted. Potentially, patient reports her STATEMENT CLERKS SUPERVISOR staff might assist with dressing changes. If the Sprint device does not provide adequate relief, a repeat assessment for RFA might be considered. Schedule Left suprascapular Sprint PNS trial with local and fluoroscopy guidance. Expectations, risks and benefits were reviewed with patient and her STATEMENT CLERKS SUPERVISOR. Patient is aware she will be contacted to schedule this procedure. All questions were answered and the patient is in agreement of plan. Follow-up after Sprint placement and sooner as needed. Patient was informed and verbally consented to the use of an ambient scribe for clinic note documentation during this visit. Coding Level of Care Code Est Pt Level 3 (48401) Complex EM visit Add On G2211 Diagnoses Left shoulder pain M25.512 History of shoulder surgery Z98.890
--- OUTSIDE RECORDS SUMMARY | 2024-05-06 16:00 | XMS_ITS | Continuity of Care Document ---
Author Organization [employer] Address [address] [place] [address] Care Team Providers Care Training And Development Assistant Name Role Phone HIM CCA OTHER PONCHO BAHENA Primary Care Provider [phone] Assessment Encounter Date Assessment Date Assessment LastModified by Organization Details LastModified Time 04/21/2024 04/21/2024 I provided real -time medical direction via phone for this encounter and was available for additional phone-based assistance as needed. I have reviewed and agree with the Assessment and Plan as documented by the Ross Carrier Driver. Patient given the opportunity to ask questions. Our service contacted for an assessment of: Palpitations As per above, patient with a history of excessive caffeine intake and generalized anxiety disorder. Calls this service for concern of racing heart rate after stating she had excessive caffeine intake. Denies dyspnea on exertion and shortness of breath. Per chief informatics officer on the scene, vital signs are stable patient is afebrile. Pulses regular and strong at 70 without any irregularity. Impression: Likely generalized anxiety disorder Plan: Patient with frequent calls to this service to report excessive caffeine intake and associated signs and symptoms. Vital signs are reassuringly stable. Observation warranted as well as education regarding caffeine intake. Red flags discussed as to when to seek a higher level of care. Allergies: Reviewed PCP f/u: We discussed the [...] or worsening serious symptoms, particularly fever chills lightheadedness altered mental status [email or web address] Not available 04/21/2024 20:32:44 Plan of Treatment Reminders Order Date Submit [...] Not available 04/30/2022 7052 [facility] Available [facility] 03:41:14 2120 Augmentin medicatio n diarrhea Not available low 04/30/2022 85917 2 RxNorm GAURAV DHILLON MD [address] [place] [address],[address], [place], [address], [employer] 4 09:58:09 4312 Bactrim medicatio n Not available Not available Not available 02/20/2023 04058 9 RxNorm Not Available [facility] 4 03:41:14 4313 sulfameth oxazole / trimethop rim medicatio n Not available Not available Not available 02/20/2023 94070 RxNorm Marita Ramos MD [address] [place] [address],[address], [place], [address], [employer] 4 14:13:42 4314 doxycycli ne Not available Not available Not available Not available 02/20/2023 3640 RxNorm Not Available [facility] 4 03:41:14 5895 Seroquel medicatio n Not available Not available Not available 09/30/2023 84746 RxNorm GAURAV DHILLON MD [address] [place] [address],[address], [place], [address], [employer] 4 18:08:17 5896 fluoxetin e medicatio n Not available Not available Not available 09/30/2023 4493 RxNorm GAURAV DHILLON MD [address], [place], [address], [employer] 4 18:08:31 5897 nabumeton e medicatio n Not available Not available Not available 09/30/2023 92025 Mitch DHILLON MD [address], [place], [address], [employer] 4 18:08:46 5898 propranol ol medicatio n Not available Not available Not available 09/30/2023 8787 Mitch DHILLON MD [address], [place], [address], [employer] 4 18:09:03 7995 Product containin g penicilli n (product) medicatio n Not available Not available Not available 12/11/2023 54119 8001 SNOMED Not Available [facility] - production [...] propionate 50 mcg/actuatio n nasal spray,suspen zoe [place] 1 spray every day by intranasal route. [...] by Pulse oximetry Body temperature Heart rate Respiratory rate Systolic blood pressure Diastolic blood pressure Provider Name and Address Organization Details Last Updated DateTime 5 99 % 99 % 98.2 [degF] 78 /min 16 /min 134 mm[Hg] 84 mm[Hg] Not Available [facility] - production 5 20:25:47 Social History None recorded. Functional Status None recorded. Mental Status None recorded. Family History Nothing Reported. Medical History No medical history recorded. Gynecological HistoryNo gynecological history recorded. Obstetrics History GPAL:G 0 P 0 0 0 0 Past Encounters Encounter ID Performer Location Encounter Start Date Encounter Closed Date Diagnosis/Indication Diagnosis SNOMED-CT Code Diagnosis ICD10 Code Diagnosis Note [id number] Rangel Robledo MD [facility] [address] [place] [phone] 03/27/2024 11:44:09 03/27/2024 14:25:14 Sore throat 575300276 J02.9 [id number] Ninoska Juarez MD [facility] [address] [place] [id number] 03/29/2024 17:58:44 03/30/2024 15:29:24 Pharyngitis 942584124 J02.9 [id number] Rangel Robledo MD [facility] [address] [place] [id number] 04/13/2024 12:47:37 04/14/2024 09:49:23 Viral upper respiratory tract infection 802669263 J06.9 Acute pharyngitis 148398 003 J02.9 [id number] Rogelio Vasquez MD [facility] [address] [place] [id number] 04/17/2024 18:32:56 04/17/2024 21:18:53 Effusion of joint of right knee 9427076049 44629 M25.461 Effusion with difficulty walking; in past has required drainage. Given severity of pain advised to go to ED for evaluation and patient in agreement in order to get aspiration . [id number] Marita Ramos MD [facility] [address] [place] [phone] 04/21/2024 20:25:45 04/22/2024 10:22:29 Generalized anxiety disorder 32582073 F41.1 Health Concerns Section Related Observation LastModified by Organization Detai ls LastModified Time None Recorded Concern Status LastModified by Organization Details LastModified Time None Recorded Payers Encounter Date Sequence Insurance Name Policy Number Policy Valdez Covered Member ID Valdez Member ID Guarantor Name 04/21/[address] [facility] - DOS ON OR AFTER 2022 - DUAL ELIGIBLE - [employer] OPTIONS AND ONE CARE (MEDICARE REPLACEMENT/ADV ANTAGE - HMO) Elizabeth Huang [id number] Elizabeth Huang Notes Date Note Type Note Provider Name and Address Organization Details Recorded Time 04/21/2024 text/html [facility] Nurse Triage Notes (Jaylen Escobar): Reason For Request: drank too much caffeine /feeling jittery Patient Reports: Diaphoretic/Sweat ing Denies: History of Heart Attack, in the setting of active chest pain Active Chest pain, radiates to neck jaw and or arm Describes as ? c rushing? Sudden onset of nausea/Vomiting and shortness of breath. Shortness of Breath Unable to speak in full sentences without distress Chief Complaints: Heart Rate Problems PMH: COPD/Asthma, Severe Persistent Mental Illness (SPMI), Hypertension, Anxiety Disorder, Rheumatoid Arthritis PMH Reviewed at 04/21/2024 - :49 Allergies Reviewed at 04/21/2024 - :49 Comments: Alternative Financing Specialist verified the patient's name//address and phone number. Pt calling reporting she put two shots of espresso in her coffee today, states I haven't done this in over 10 years . Pt states she is having panic attacks from it. Pt states it feels like I have drank 3 pots of coffee . Pt states her heart is racing. Education provided on the response time and the patient was advised to monitor reported s/s and seek emergency treatment if needed -Allison Escobar RN ................. ................. ................. ................. ................. ................. ................. ................. ..... Ross Carrier Driver Note From Jacques Nix: Dispatched to the call address for the female who drank too much caffeine and feels anxious. Pt states she drank two shots of expresso in her coffee earlier today and felt jittery and anxious. She states now she just feels lousy and has a headache. She took 1g of Tylenol and stated she would take some Motrin. Pt denies chest pain, diff breathing/SoB, n/v/d, blurred vision or dizziness. Pt was found laying on living room couch in no obvious distress watching TV, CAOx4, airway open and patent, breathing non labored, able to speak in full sentences, -JVD, -HEENT, skin PWD with good turgor, mucous membranes pink and moist, abd soft non tender/distended, pupils PERRL, lungs CTA, Afebrile, +CMSx4, -edema/swelling. [facility] consulted. ALL times are approx. ................. ................. ................. ................. ................. ................. ................. ................. ..... C Consulted: Marita Ramos ................. ................. ................. ................. ................. ................. ................. ................. ..... Disposition: Fulfilled Marita Ramos MD [address] [facility],[address], [place], [address], [employer] 04/22/2024 08:15:29 OBGyn Episode No OBEpisode recorded.
--- OUTSIDE RECORDS SUMMARY | 2024-05-06 16:01 | XMS_ITS | Clinical Summary ---
Author Organization [facility] Address [address] [place] [address] Care Team Providers Care Assistant Women'S Tennis Coach Name Role Phone Lexa Wilsonsun Sharpe Primary Care Provider [phone] Allergies Active Allergy Reactions Criticality Noted Date [...] mellitus 12/05/2021 Hearing loss 12/05/2021 Overview (12/05/2021): [facility] audiology History of total hysterectom y with bilateral salpingo-oophorectomy (BSO) 12/05/2021 Lower urinary tract infectious disease 2 Menopausal syndrome 12/05/2021 Obesity 12/05/2021 Osteoarthritis 12/05/2021 Pelvic pain in female 12/05/2021 Pernicious anemia 12/05/2021 Posttraumatic stress disorder 12/05/2021 Respiratory abnormalities 12/05/2021 Shoulder pain 12/05/2021 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 06/16/2013 Overview (12/05/2021): Asthma Asthma Last Assessment & Plan: No acute symptoms, continue outpatient medications Seasonal allergic rhinitis 06/16/2013 Overview (12/05/2021): Allergic rhinitis Encounters Date Type Department Care Team Description 04/03/2024 2:00 [place] [address] Luis Minor MD Adhesive capsulitis of left shoulder (Primary Dx) 03/20/[address] [address] Telephone Intake, Staff PAC Appt Request - Established_Iván 03/05/[address] [address] Telephone Intake, Staff PAC Dr. Minor_ Left shoulder rotatorcuff_ PostOP 02/28/[address] [address] Telephone Intake, Staff pac- post op-Iván from Last 3 Months Family History Medical [...] 06/06/2024 2:45 PM EDT Procedure visit [address] [address] Sandy Snyder DO [address] [place] [address] 07/17/2024 11:30 AM EDT Follow-Up [address] [address] Luis Minor MD [address] [place] [id number] Health Maintenance Due Date Last Done Comments [...] history exists Alcohol/Substance Use Screening 02/13/2024 Depression Screening and Follow-Up 02/13/2024 [facility] ual Screening 02/13/2024 CT [...] history exists Medical Devices Implanted Type Area Railcar Foreman Device Identifier Shelf Expiration Date Model / Serial / Lot Allison Suture Double Loaded With White/Blue White/Black Suturetape [employer] - [id number] Implanted:Qty: 1 on 04/02/2020 by Luis Minor MD at [facility] Implant Right: Shoulder [employer] 01/11/2023 [id number] / / [id number] Insurance [facility] [place] [id number] Advance Directives * Full Code (Latest Code Status on File) Date Activated Date Inactivated Comments 04/02/2020 10:29 AM 04/02/2020 6:36 PM Healthcare Agents on File Name Relationship Healthcare Agent Relationsil p Communication Pilar Olvera Sister Next of Kin [phone] (Kamala griffin) Care Teams Assistant Women'S Tennis Coach Relationship Specialty Start Date End Date Clare Wilson [address] [place] [phone] PCP - General Family Medicine 09/10/23
--- OUTSIDE RECORDS SUMMARY | 2024-05-06 16:01 | XMS_ITS | Data Portability ---
Author Organization [place] - [facility], Allergy Address [address] [place] [address] Assessment Encounter Date Assessment Date Assessment LastModified by Organization Details LastModified Time 04/25/2024 04/25/2024 63 year old female former smoker with hoarseness following upper respiratory infection in February. Fiberoptic laryngoscopy was unrevealing. Discussed that her reflux likely plays a role as well as her recent URI. I encouraged voice rest for a couple of weeks as well as adequate hydration. I have issued her a referral to voice therapy. We will plan for follow up in 2-3 months to assure that her voice has improved. [email or web address] Not available 04/25/2024 12:34:54 Plan of Treatment Reminders Order Date Submit Date Provider Last Modified By Organization Details Last Modified Time Details Appointments Establish ed 15 2024 11:00A M RICKIE ARMSTRONG PA-C Not available Not available Not available Lab None recorded. Referral speech therapy referral 2024 025 [facility], [address] [place] [address] [place], [address], 04/29/2024 10:52:29 Procedures None recorded. Surgeries None recorded. Imaging None recorded. Medication Orders None recorded. Patient TargetsNo targets recorded. Patient InstructionsNo instructions recorded. Reason for Referral Referring Physician: Rickie Whitaker ot, Otolaryngology, Encounter Date: 04/25/2024 Results Created Date Observation Date Name Description [...] Address Organization Details Recorded Time Bilateral tinnitus 85801339907 02 Active 2015 Tinnitus, bilateral ; Note: Date Diagnosed : 06/22/2015 2:10 PM (H93.13) Not Available [facility] 4 02:46:51 Otitis externa of bilateral ears 78820960693 07672 Active 2015 Other otitis externa, bilateral ; Note: Date Diagnosed : 05/12/2015 12:59 AM (H60.8X3) Not Available [facility] 4 02:46:49 Dizziness and giddiness 827085886 Active 2015 Dizziness and giddiness ; Note: Date Diagnosed : 06/22/2015 2:10 PM (R42) Not Available [facility] 4 02:46:50 Arthralgi a of temporoma ndibular joint 44241111 Active 2015 Arthralgi a of temporoma ndibular joint; Note: Date Diagnosed : 05/12/2015 12:58 AM (M26.62) Not Available [facility] 4 02:46:52 Impacted cerumen in right ear 93279963230 42543 Active 2017 Impacted cerumen, right ear; Note: Date Diagnosed : 03/06/2017 4:03 PM (H61.21) Not Available [facility] 4 02:46:52 Sensorine ural hearing loss of bilateral ears 416025351 Active 2015 Sensorine ural hearing loss, bilateral ; Note: Date Diagnosed : 06/22/2015 2:10 PM (H90.3) Not Available [facility] 4 02:46:54 Impacted cerumen of bilateral ears 54012364152 10568 Active 2016 Impacted cerumen, bilateral ; Note: Date Diagnosed : 08/08/2016 2:34 PM (H61.23) Not Available [facility] 4 02:46:56 Diffuse otitis externa 53045581 Active 2018 Diffuse otitis externa, right ear; Note: Date Diagnosed : 02/25/2018 4:53 PM (H60.311) Not Available [facility] 4 02:46:56 Nasal congestio n 27645998 Active 2023 JUAN PABLO KABA MD [address] [facility],[place] [address], [place], [address] , [place] - [facility] 4 21:32:56 Foreign body in right ear 30705074465 809515 Active 2023 JUAN PABLO KABA MD [address] [facility],[place] [address], [place], [address] , [place] - [facility] 4 21:33:01 Chronic hoarsenes s 74371564059 05 Active 2024 RICKIE ARMSTRONG PA-C [address] [facility],[place] [address], [place], [address] , [place] - [facility] 5 11:50:32 Gastroeso phageal reflux disease without esophagit is 486167361 Active 2024 RICKIE ARMSTRONG PA-C [address] [facility], [place], [address] , [place] - [facility] 5 12:33:50 Problem Notes None recorded. Procedures Surgical History Date Name Laterality Status Provider Name and Address Organization Details Recorded Time 5 FOL_DP completed RICKIE ARMSTRONG PA-C [address] [facility], [place], [address], [facility] - [facility] 04/25/2024 12:31:13 4 Removal of foreign body from ear canal completed JUAN PABLO KABA MD [address] [facility], [place], [address], [facility] - [facility] 10/07/2023 21:35:30 Imaging Results Imaging Date Name [...] oil oral 2015 active Medicati on ID: [id number] D uration Value: 23 Brand Name: mineral oil Send Method: E-Prescr ibed Sub s Allowed: subs OK Medic ationGen ericName : mineral oil Not Available Not Available Not Available clotrimaz ole 10 mg sarah active Not Available Not Available Not Available [...] mg tablet 2015 active Medicati on ID: [id number] D uration Value: 5 Brand Name: naproxen [...] mg tablet 2015 active Medicati on ID: [id number] D uration Value: 30 Brand Name: ranitidi [...] Available Not Available Not Available lisinopri l 20 mg tablet active Not Available Not Available Not Available prednison e 20 mg tablet TAKE 2 TABLETS BY MOUTH EVERY DAY FOR 4 DAYS . TAKE WITH FOOD active Not Available Not Available No t Available gabapenti n 400 mg capsule active Not Available Not Available Not Available sertralin e 100 mg tablet 02/25 completed Medicati on ID: [id number] D uration Value: 30 Brand Name: sertrali ne Send Method: E-Prescr ibed Sub s Allowed: subs OK Medic ationGen ericName : sertrali ne Not Available Not Available Not Available prednison e 5 mg tablet active Not Available Not Available Not Available quetiapin e 200 mg tablet 02/25 completed Medicati on ID: [id number] D uration Value: 30 Brand Name: quetiajc ne Send Method: E-Prescr ibed Sub s [...] mg tablet 03/07 completed Medicati on ID: [id number] D uration Value: 10 Prescri bed By Name: CELIO Herrera nd Name: ciproflo xacin HCl Send Method: E-Prescr ibed Sub s Allowed: subs OK Speci al Instruct ion: 1 po BID for [facility] ciproflo xacin HCl Not Available Not [...] active Not Available Not Available Not Available terbinafi ne HCl 250 mg tablet active Not Available Not Available Not Available ofloxacin 0.3 % ear drops INSTILL 5 DROPS BY EACH EAR ROUTE 2 TIMES A DAY FOR 7 DAYS. active Not Available Not Available No t Available lorazepam 0.5 mg tablet active Not Available Not [...] 2 hr 2015 active Medicati on ID: [id number] D uration Value: 30 Brand Name: carbamaz [...] active Not Available Not Available Not Available triamcino lone acetonide 0.1 % topical ointment active Not Available Not Available Not Available lisinopri l 10 mg tablet active Not Available Not Available Not Available lidocaine 5 % topical patch active Not Available Not Available Not Available progester one micronize d 200 mg capsule 2015 active Medicati on ID: [id number] D uration Value: 12 Brand Name: progeste keya microniz ed Send Method: E-Prescr ibed Sub s Allowed: subs OK Medic ationGen ericName : progeste keya microniz ed Not Available Not Available Not Available nystatin- triamcino lone 100,000 unit/g-0. 1 % topical cream active Not Available Not Available Not Available docusate sodium 100 mg capsule active Not Available Not Available Not Available gabapenti n 300 mg capsule active Not Available Not Available Not Available sertralin e 25 mg tablet active Not Available Not [...] active Not Available Not Available Not Available bisacodyl 5 mg tablet,de layed release active Not Available Not Available Not Available mupirocin 2 % topical ointment APPLY TO AFFECTED AREA 3 TIMES A DAY active Not Available Not Available No t Available gabapenti n 100 mg capsule 02/25 completed Medicati on ID: [id number] D uration Value: 30 Brand Name: gabapent [...] active Not Available Not Available Not Available cefuroxim e axetil 500 mg tablet active Not Available [...] active Not Available Not Available Not Available ketoconaz ole 2 % topical cream active Not Available Not Available Not Available ondansetr on 4 mg disintegr ating tablet active Not Available Not Available Not Available cefdinir 300 mg capsule active Not Available Not [...] mg tablet 2015 active Medicati on ID: [id number] D uration Value: 30 Brand Name: diazepam Send Method: E-Prescr ibed Sub s Allowed: subs OK Medic ationGen ericName : diazepam Not Available Not Available Not Available amoxicill in 875 mg-potass ium clavulana te 125 mg tablet 05/29 completed Medicati on ID: [id number] D uration Value: 20 Reason: () Brand [...] ous solution 2015 active Medicati on ID: [id number] D uration Value: 28 Brand Name: Xolair S end Method: E-Prescr ibed Sub s Allowed: subs OK Medic ationGen ericName : Xolair Not Available Not Available Not Available ciproflox acin 0.3 %-dexamet hasone 0.1 % ear drops,shakeel pension 4 drop into both ears active Not Available Not Available No t Available epinastin e 0.05 % eye drops active Not Available Not Available No t Available topiramat e 50 mg tablet active Not Available Not Available Not Available Spiriva with HandiH[employer] r 18 mcg and inhalatio n capsules 2015 active Medicati on ID: [id number] D uration Value: 30 Brand Name: Spiriva [...] mg capsule 2015 active Medicati on ID: [id number] D uration Value: 20 Brand Name: butalbit al-aceta minophen -caff Se nd Method: E-Prescr ibed Sub s Allowed: subs OK Medic ationGen ericName : butalbit al-aceta minophen -caff Not Available Not Available Not Available Antifunga l (miconazo le) 2 % topical powder active Not Available Not Available Not Available Incruse Ellipta 62.5 mcg/actua tion powder for inhalatio n active Not Available Not Available Not Available ProAir RespiClic k 90 mcg/actua tion breath activated active Not Available Not Available No t Available Taltz Autoinjec tor 80 mg/mL subcutane ous active Not Available Not Available Not Available Humira(CF ) Pen 40 mg/0.4 mL subcutane ous kit active Not Available Not Available Not Available Xolair 75 mg/0.5 mL subcutane ous syringe active Not Available Not Available Not Available Xolair 150 mg/mL subcutane ous syringe active Not Available Not Available Not Available Wixela Inhub 500 mcg-50 mcg/dose powder for inhalatio n active Not Available Not Available Not Available Tab-A-Vit e 400 mcg tablet active Not Available Not Available Not Available Sutab 1.479-0.1 88-0.225 gram tablet active Not Available Not Available Not Available Vitals Date Recorded Body height Body mass index (BMI) Body weight Provider Name and Address Organization Details Last Updated DateTime 04/25/2024 154.94 cm 32.7 kg/m2 18850.48 g Saima Morejon [place] - [facility] 04/25/2024 11:00:15 Social History None recorded. Functional Status None recorded. Mental Status None recorded. Family History Relationship Description Onset Age of this Age Resolved Age Notes LastModified by Organization Details LastModified Time Father No current problems or disability [email or web address] Not available 09/13 21:28:46 Mother No current problems or disability [email or web address] Not available 09/13 21:28:46 Medical History Condition Response Migraines Y Hypertension Y Anxiety Y Depression Y Asthma Y Gynecological HistoryNo gynecological history recorded. Obstetrics History GPAL:G 0 P 0 0 0 0 Past Encounters Encounter ID Performer Location Encounter Start Date Encounter Closed Date Diagnosis/Indication Diagnosis SNOMED-CT Code Diagnosis ICD10 Code Diagnosis Note [id number] JUAN PABLO KABA MD [facility] on [address] [place] [address] 10/02/2023 09:52:16 10/02/2023 12:00:59 Foreign body in right ear 1438911602 0721553 T16.1XXA Nasal congestion 0081520 0 R09.81 63-year-ol d female presents today [...] her hearing. She may follow-up as needed. [id number] SULEMAN SCHULTZ MD [facility] [address] [address] 04/25/2024 10:31:44 04/25/2024 11:53:14 Chronic hoarseness 7509640251 105 R49.0 Gastroesop hageal reflux disease without esophagitis 685168341 K21.9 Health Concerns Section Related Observation LastModified by Organization Detai ls LastModified Time None Recorded Concern Status LastModified by Organization Details LastModified Time None Recorded Advance Directives Directive None Recorded Payers Encounter Date Sequence Insurance Name Policy Number Policy Valdez Covered Member ID Valdez Member ID Guarantor Name 10/02/2023 1 [facility] - DOS ON OR AFTER 2022 - [place]ICARE [place]/ADV ANTAGE - PPO) Elizabeth Huang [id number] Elizabeth Huang 04/25/2024 1 [facility] - DOS ON OR AFTER 2022 - [place]V [place]TAGE - [place]PO) Elizabeth Huang [id number] Elizabeth Huang Notes Date Note Type Note [...] pain. No epistaxis. JUAN PABLO KABA MD [address] [facility],[address], [address], [place] - [facility] 10/07/2023 21:36:00 04/25/2024 text/html 63 year old rolo carrington presents reporting three weeks of laryngitis. She had a cold all of February and in March lost her voice. She also had an episode of laryngitis in the fall as well with upper respiratory infection. She has GERD and is on Pantoprazole. She denies throat pain. No fever, chills, unintended weight loss. She quit smoking in 2011. She does have COPD and reports that she is prediabetic. SULEMAN SCHULTZ MD [address] [place] [address],[address], [address], [place] - [facility] 04/25/2024 16:52:12 OBGyn Episode No OBEpisode recorded.
--- OUTSIDE RECORDS SUMMARY | 2024-05-06 16:01 | XMS_ITS ---
Author Organization [facility] on Care Team Providers Care Diamond Mounter Name Role Phone Becca Cai Unavailable Unavailable Colton Cordoba Unavailable Unavailable Landen Lunsford Unavailable Unavailable Elizabeth Piedra Unavailable Unavailable Breanna Ortega Unavailable Unavailable Roxie Perez Unavailable Unavailable Allergies and adverse reactions Code CodeSystem Substance Reaction Severity StartDate Concern Status 89943 RXNORM Trimethoprim Morbilliform eruption (code- 633366021, SNOMED CT) Moderate 11/28/2022 active 26790 RXNORM Sulfamethoxazole Morbillifor m eruption (code- 624006592, SNOMED CT) Moderate 11/28/[address] Sulfa Antibiotics Morbillifo rm eruption (code- 021327827, SNOMED CT) Unknown 11/28/[address] Sodium Benzoate Severe 11/28/2022 a ctive Shell Fish Anaphylaxis (code- 70310927, SNOMED CT) Severe 11/28/2022 active 31120 RXNORM QUEtiapine Unknown 11/28/2022 active 8787 RXNORM Propranolol Unknown 11/28/2022 active 8591 RXNORM Potassium Chloride Severe 11/28/2022 ac tive 8516 RXNORM Polyethylene Glycol Severe 11/28/2022 active Onion Nausea (code- 729432986, SNOMED CT) Severe 11/28/2022 active 98983 RXNORM Nabumetone Morbilliform eruption (code- 794871613, SNOMED CT) Moderate 11/28/2022 active 7052 RXNORM Morphine Morbilliform eruption (code- 125513088, SNOMED CT) Moderate 11/28/2022 active Milk & Milk Products Nausea (code- 245326614, SNOMED CT) Moderate 11/28/[address] Iodinated Contra [address] Media Anaphylaxis (code- 51131536, SNOMED CT) Moderate 11/28/2022 active Fish Anaphylaxis (code- 59111511, SNOMED CT) Severe 11/28/2022 active Dyazide Unknown 11/28/2022 active 3640 RXNORM Doxycycline Nausea (code- 478253436, SNOMED CT) Unknown 11/28/2022 active 3356 RXNORM Dicloxacillin Morbilliform eruption (code- 187679487, SNOMED CT) Unknown 11/28/2022 active 2670 RXNORM Codeine Moderate 11/28/2022 active 06487 RXNORM Clavulanic Acid Nausea (code - 460208902, SNOMED CT) Unknown 11/28/2022 active Chocolate Nausea (code- 951231234, SNOMED CT) Moderate 11/28/2022 active 2231 RXNORM Cephalexin Nausea (code- 383414866, SNOMED CT) Moderate 11/28/2022 active 723 RXNORM Amoxicillin Nausea (code- 557076799, SNOMED CT) Unknown 11/28/2022 active Care Team Name Role Address Phone Organization Dates Landen Lunsford PCP [address] [place] [address], [address], [place] (Office): : [facility] 11/28/2022 - 12/07/2022 Becca Cai Attending Physician [address] [place] [address], [address], [place] (Office): [facility] 11/28/2022 - 12/07/2022 Colton Cordoba Attending Physician [address] [place] [address], [address], [place] (Office): [facility] 11/28/2022 - 12/07/2022 Elizabeth Piedra Attending Physician [address] [place] [address], [address], [place] (Office): : [facility] 11/28/2022 - 12/07/2022 Breanna Ortega Attending Physician [address], [address], [place] (Office): : [facility] 11/28/2022 - 12/07/2022 Roxie Perez Attending Physician [address] [facility] [address], [place], [address], [place] (Office): : [facility] 11/28/2022 - 12/07/2022 Immunizations Immunization Status Vaccine [...] administ ered date: 04/30/19 21 modernaverified by [employer] completed zoster vaccine recombinant 187 CVX created date: 11/30/19 administ ered date: 02/12/20 21 verified by [facility] SARS-COV-2 (COVID-19 BOOSTER) completed SARS-COV-2 (COVID-19) vaccine, mRNA, spike protein, LNP, bivalent, preservative free, 50 mcg/0.5 mL or 25 mcg/0.25 mL dose 229 CVX created date: 11/30/19 23 administ ered date: 10/23/19 22 moderna bivalent boosterverified by [facility] SARS-COV-2 (COVID-19 BOOSTER) completed SARS-COV-2 (COVID-19) vaccine, mRNA, spike protein, LNP, preservative free, 100 mcg/0.5mL dose or 50 mcg/0.25mL dose 207 CVX created date: 11/30/19 administ ered date: 06/12/19 22 modernaverified by [employer] SARS-COV-2 (COVID-19 BOOSTER) completed SARS-COV-2 (COVID-19) vaccine, mRNA, spike protein, LNP, preservative free, 100 mcg/0.5mL dose or 50 mcg/0.25mL dose 207 CVX created date: 11/30/19 23 administ ered date: 01/03/20 21 modernaverified by [employer] Mental Status Section Date Assessment Total Score Description 12/07/2022 BIMS 15 cognitively int act CAM 0 No delirium ind icated Problems Problem # Description Date of onset Resolved Date Code CodeSystem Concern Status 1 COVID-[address] active 2 ANEMIA, UNSPECIFIED [address] active 3 ANXIETY DISORDER, UNSPECIFIED [address] active 4 BIPOLAR DISORDER, UNSPECIFIED [address] active 5 CHRONIC IDIOPATHIC CONSTIPATION [address] active 6 CHRONIC OBSTRUCTIVE PULMONARY DISEASE, UNSPECIFIED [address] active 7 HERPESVIRAL INFECTION, UNSPECIFIED [address] active 8 IMMUNODEFICIENCY DUE TO DRUGS [address] active 9 MAJOR DEPRESSIVE DISORDER, RECURRENT, UNSPECIFIED [address] active 10 MIGRAINE, UNSPECIFIED, NOT INTRACTABLE, WITHOUT STATUS MIGRAINOSUS [address] active 11 PNEUMONIA, UNSPECIFIED ORGANISM [address] active 12 PSORIATIC ARTHRITIS MUTILANS [address] active 13 RIGHT TEMPOROMANDIBULAR JOINT DISORDER, UNSPECIFIED [address] active 14 SEPSIS, UNSPECIFIED ORGANISM [address] active 15 TYPE 2 DIABETES MELLITUS WITHOUT COMPLICATIONS [address] active Reason for Referral No Reasons for Referral Entered Social History Social History Observation Description Start Date End Date Code Code System Current Smoking Status Tobacco smoking consumption unknown 988487608 SNOMED CT Sex Assigned At Female 1960 48956-6 [facility] Vital Signs Code Code System Vitals Name Values and Units Timing Information 9279-1 [facility] Respiratory Rate Value=18.0 Units=/m in 12/07/2022 8462-4 [facility] Blood Pressure-Diastolic Value=76 Un its=mmHg 12/07/2022 8480-6 [facility] Blood Pressure-Systolic Zuewc=329 Un its=mmHg 12/07/2022 8310-5 [facility] Body Temperature Value=97.5 Units=?? F 12/07/2022 8867-4 [facility] Heart rate Value=77.0 Units=/min 74622-5 [facility] O2 % BldC Oximetry Value=96.0 Units= % 12/07/2022 77214-6 [facility] Pain Level Value=0.0 12/06/2022 57149-6 [facility] Weight Ledrp=240.0 Units=Lbs 8302-2 [facility] Height Value=61.0 Units=Inches 11/29/2022
--- OUTSIDE RECORDS SUMMARY | 2024-05-06 16:01 | XMS_ITS | Encounter Summary ---
Author Organization [facility] Address [address] [place] [address] Care Team Providers Care Binding Machine Operator Name Role Phone Clare Wilson Primary Care Provider [phone] Reason for Visit * Auth/Cert (Routine) Specialty Diagnoses / Procedures Referred By Contshanna t Referred To Contact Diagnoses Chronic left shoulder pain Chronic left shoulder pain [M25.512, G89.29] Procedures OR SHLDR ARTHROSCOP,SURG,W/ROTAT CUFF REPR OR SHLDR ARTHROSCOP,EXTEN DEBRIDE OR REPAIR BICEPS LONG TENDON ARTHROSCOPY, SHOULDER, SURGICAL;?? WITH ROTATOR CUFF REPAIR ARTHROSCOPY, SHOULDER, SURGICAL;?? DEBRIDEMENT, EXTENSIVE TENODESIS OF LONG TENDON OF BICEPS Luis Minor MD [address] [place] [address] Phone: tel: fax: Referral ID Status Reason Start Date Expiration Date Visits Re quested Visits Authorized [id number] 10/03/2023 99 99 Encounter Details Date Type [...] Description 06/06/2024 2:45 PM EDT Procedure visit [address] [address] Sandy Snyder DO [address] [place] [address] 07/17/2024 11:30 AM EDT Follow-Up [address] [address] Luis Minor MD [address] [place] [address] documented as of this encounter Visit Diagnoses Diagnosis Shoulder pain- Primary Pain in joint, shoulder region documented in this encounter Admitting Diagnoses Diagnosis Shoulder pain Pain in joint, shoulder region documented in this encounter Care Teams Binding Machine Operator Relationship Specialty Start Date End Date Clare Wilson [address] [place] [phone] PCP - General Family Medicine 09/10/23 documented as of this encounter
--- OUTSIDE RECORDS SUMMARY | 2024-05-06 16:01 | XMS_ITS | Data Portability ---
Author Organization [place] [facility]ly [facility] Address [address] [place] [id number] Assessment Encounter Date Assessment Date Assessment LastModified [...] after care of this patient according to [facility]'s infection prevention protocols. Time On Scene with Patient: 00:41:51 Not available 11/01/2019 16:50:03 11/23/2019 11/23/2019 Overview/History : 59[facility], DM, HTN is seen [...] after care of this patient according to [facility] infection prevention protocols. Time On Scene with Patient: 00:18:09 Not available 11/23/2019 11:49:44 Plan of Treatment Reminders Order Date Submit Date Provider Last Modified By Organization Details Last Modified Time Details Appointments None recorded. Lab 6+ iStat 2019 020 zak Spr - Home, [address] [place], [address], 0 21:16:36 creatinin e, blood 2019 020 zak Spr - Home, [address] [place], [address], 0 21:16:35 Referral None recorded. Procedures None recorded. Surgeries None recorded. Imaging XR, lumbosacr al spine - No COIVD Sxs or exposure 2019 [facility] ([facility]), [address] , [place], [address], 0 17:40:23 Medication Orders naproxen 500 mg tablet 2019 [facility][id number], [address] [place] [address], [address], 0 09:58:29 Lidoderm 5 % topical patch 2019 INTERFACE [facility]0447, [address] [place] [address], [address], 0 15:29:37 methocarb bhavani 500 mg tablet 2019 INTERFACE [facility]044[facility], [address] [place] [address], [address], 0 15:29:37 ketorolac 30 mg/mL (1 mL) injection solution 2019 020 [email or web address] [facility]0447, [address] [place] [address], [address], 0 15:30:29 prednison e 10 mg tablet 2019 020 [email or web address] Not available 0 18:42:27 lidocaine 4 % topical cream 2019 INTERFACE [facility], [address] [place] [address], [address], 0 16:25:56 prednison e 20 mg tablet 2019 INTERFACE [facility], [address] [place] [address], [address], 0 16:26:02 sodium chloride 0.9 % intraveno us solution 2019 [email or web address] [facility]0447, [address] [place] [address], [address], 0 16:13:18 Zofran 2 mg/mL intraveno us solution 2019 020 [email or web address] [facility]8807, [address] [facility] [place], [address], 0 21:16:37 Patient TargetsNo targets recorded. Patient Instructions Encounter Date Encounter Id Patient Instructions Last Modified By Organization Details Last Modified Time 08/19/[id number] Thank you for yo ur visit with [facility] today. We cannot always find the exact [...] in your condition between 8am-10pm, please call [facility] at [phone] to help navigate your care. Acute Nausea [...] disease, do not use Tylenol. Ask your CNC MACHINE PROGRAMMER how to address fever if you are concerned about Tylenol use. 3) Anti-diarrheal medicines: These are available phkq-dub-ccttscg, but in some cases are not recommended and can even worsen some cases of intestinal problems. Ask your CNC MACHINE PROGRAMMER if you should use them. In children [...] with one of the PCP suggestions from [facility]. SEEK CARE IMMEDIATELY IF: 1) You are [...] in your condition between 8am-10pm, please call [facility] at [phone] to help navigate your care. [email or web address] Not available 08/19/2019 20:45:42 08/31/2019 [id number] Thank you for yo ur visit with [facility] today. We cannot always find the exact [...] in your condition between 8am-10pm, please call [facility] at [phone] to help navigate your care. Thank you for your visit with [facility] today. You do not appear to have [...] in your condition between 8am-10pm, please call [facility] at [phone] to help navigate your care. [email or web address] Not available 08/31/2019 16:24:13 11/01/2019 [id number] Thank you for yo ur visit with [facility] today. It appears you have lower back [...] symtpoms worsen then please follow up with [facility]. Follow up with your primary care provider [...] condition between 8am-10pm, please call [facility] at [phone] to help navigate your care. Not available 11/01/2019 15:29:26 11/23/2019 [id number] STOP TAKING THE IBUPROFEN BEGIN TAKING THE [...] PAIN Thank you [facility]. We cannot always find the exact [...] condition between 8am-10pm, please call [facility] at [phone] to help navigate your care. [email or web address] Not available 11/23/2019 09:58:05 06/03/2021 [id number] Sinusitis Instructions Basic Information Sinusitis is an [...] headache and sinus pressure Instructions Medications: Decongestants: Qltn-lnz-dylpgoc decongestants such as sudafed are helpful. You should not use these for prolonged periods of time and they may not be contraindicated due to drug interactions with your regular medications or if you have medical problems such as high blood pressure. Ask your CNC MACHINE PROGRAMMER. decongestant sprays such as Afrin and Yury-synephrine may also help your symptoms. However, if theses are used for over 3 days in a row, the congestion can actually get worse when you stop using them. So, use sparingly. If you have high blood pressure, your CNC MACHINE PROGRAMMER may not recommend use. nasal steroid drops/spray [...] in your condition between 8am-10pm, please call [facility] at [phone] to help navigate your care. [email or web address] Not available 06/03/2021 15:24:52 Reason for Referral None Reported. Results Created Date Observation Date Name Description Value Unit Range Abnormal Flag Note LastModifiedBy Organization Detail LastModifiedTime 08/19/19 20 08/19/2019 creat inine , blood crea 0.5 mg/dL 0.6-1. 3 Not Available Spr - Home [address] [place], [address], 08/19/2019 20:44:44 08/19/19 20 08/19/2019 6+ iStat Na 140 mmol/ L 138-14 6 Not Available Spr - Home [address] [place], [address], 08/19/2019 20:44:38 08/19/19 20 08/19/2019 6+ iStat K 3.7 mmol/ L 3.5-4. 9 Not Available Spr - Home [address] [place], [address], 08/19/2019 20:44:38 08/19/19 20 08/19/2019 6+ iStat cL 108 mmol/ L 98-109 Not Available Spr - Home [address] [place], [address], 08/19/2019 20:44:38 08/19/19 20 08/19/2019 6+ iStat BUN 10 mg/dL 8-26 Not Available Spr - Home [address] [place], [address], 08/19/2019 20:44:38 08/19/19 20 08/19/2019 6+ iStat glu 98 mg/dL 70-105 Not Available Spr - Home [address] [place], [address], 08/19/2019 20:44:38 08/19/19 20 08/19/2019 6+ iStat HCT 38 %_pcv 37-47 Not Available Spr - Home [address] [place], [address], 08/19/2019 20:44:38 08/19/19 20 08/19/2019 6+ iStat Hb 12.9 g/dL 12-17 Not Available Spr - Home [address] [place], [address], 08/19/2019 20:44:38 08/03/19 20 08/03/2019 urina lysis , dipst ick Appearance cloudy Not Available Spr - H ome [address] [place], [address], 08/03/2019 17:19:58 08/03/19 20 08/03/2019 urina lysis , dipst ick Color yellow Not Available Spr - Home [address] [place], [address], 08/03/2019 17:19:58 08/03/19 20 08/03/2019 urina lysis , dipst ick Glucose negati ve Not Available Spr - Home [address] [place], [address], 08/03/2019 17:19:58 08/03/19 20 08/03/2019 urina lysis , dipst ick Bilirubin negati ve Not Available Spr - Home [address] [place], [address], 08/03/2019 17:19:58 08/03/19 20 08/03/2019 urina lysis , dipst ick Ketones NEG Not Available Spr - Home [address] [place], [address], 08/03/2019 17:19:58 08/03/19 20 08/03/2019 urina lysis , dipst ick Sp. [place] 1.015 Not Available Spr - Home [address] [place], [address], 08/03/2019 17:19:58 08/03/19 20 08/03/2019 urina lysis , dipst ick Blood NEG Not Available Spr - Home [address] [place], [address], 08/03/2019 17:19:58 08/03/19 20 08/03/2019 urina lysis , dipst ick pH 6.5 Not Available Spr - Home [address] [place], [address], 08/03/2019 17:19:58 08/03/19 20 08/03/2019 urina lysis , dipst ick Protein negati ve Not Available Spr - Home [address] [place], [address], 08/03/2019 17:19:58 08/03/19 20 08/03/2019 urina lysis , dipst ick Urobilirubin negati ve Not Available Spr - Home [address] [place], [address], 08/03/2019 17:19:58 08/03/19 20 08/03/2019 urina lysis , dipst ick Nitrites NEG Not Available Spr - Maximino e [address] [place], [address], 08/03/2019 17:19:58 08/03/19 20 08/03/2019 urina lysis , dipst ick Leukocytes + Not Available Spr - H ome [address], [place], [address], 08/03/2019 17:19:58 11/01/19 20 11/01/2019 XR, lumbo [...] Annemarie ARMENDARIZ.O. 020 5:34:0 0 PM EDT. [facility] ([facility]) [address] , [place], [address], 11/27/2019 11:20:00 Result Notes None recorded. Problems Name Problem SNOMED Code Status Onset Date Resolution Date Notes Provider Name and Address Organization Details Recorded Time Asthma 667939944 Active ANI MERRITT NP [address] [place], [address] , [place] [facility] 0 17:18:03 Problem Notes None recorded. Procedures Surgical History Date Name Laterality Status Provider Name and Address Organization Details Recorded Time 0 IV Start Procedure - DH completed ANI MERRITT NP [address] [place], [address], [place] [facility] 08/19/2019 20:40:42 Imaging Results Imaging Date Name Status LastModified by Organiz ation Details LastModified Time 11/01/2019 XR, lumbosacral spine completed [email or web address] [facility] ([facility]) [address] , [place], [address], 11/27/2019 11:20:00 Procedure Notes None recorded. Medical Equipment None Reported. Allergies Allergen ID Allergen Name Allergen Category Reaction Reaction Severity Criticality Documentation Date Start Date Code Code System Note Provider Name and Address Organization Details Recorded Time 340585 Bactrim medicatio n Not available Not available Not available 08/03/2019 29412 9 RxNorm ANI RENÉ , CNC MACHINE PROGRAMMER [address], [place], [address], [place] [facility] 0 17:09:16 854588 morphine medicatio n Not available Not available Not available 08/03/2019 7052 RxNorm ANI KRAUSJACINTO , CHRISTIANO [address], [place], [address], [place] [facility] 0 17:09:23 853441 Inderal medicatio n Not available Not available Not available 08/03/2019 33450 0 RxNorm ANI KRAUSJACINTO , CHRISTIANO [address], [place], [address], [place] [facility] 0 17:09:56 968143 Iodinated contrast media (substanc e) medicatio n Not available Not available Not available 08/03/2019 63952 2004 SNOMED ANI MERRITT NP [address], [place], [address], [place] [facility] 0 17:10:22 586550 Product containin g penicilli n (product) medicatio n Not available Not available Not available 11/01/2019 19853 8001 SNOMED KINA PHILLIPS [address], [place], [place], [address], [place] [facility] 0 [...] % 118 mm[Hg] 80 mm[Hg] Not Available [facility] 0 20:20:07 Date Recorded Respiratory rate Oxygen saturation Oxygen saturation in Arterial blood by Pulse oximetry Heart rate Body temperature Systolic blood pressure Diastolic blood pressure Provider Name and Address Organization Details Last Updated DateTime 0 18 /min 97 % 97 % 75 /min 97.9 [degF] 106 mm[Hg] 64 mm[Hg] Not Available Critical [facility] hospital 0 16:13:19 Date Recorded Heart rate Body temperature Oxygen saturation Oxygen saturation in Arterial blood by Pulse oximetry Respiratory rate Systolic blood pressure Diastolic blood pressure Provider Name and Address Organization Details Last Updated DateTime 0 75 /min 97.2 [degF] 97 % 97 % 16 /min 112 mm[Hg] 68 mm[Hg] Not Available Critical access hospital 0 15:09:28 Date Recorded Heart rate Oxygen saturation Oxygen saturation in Arterial blood by Pulse oximetry Body temperature Respiratory rate Systolic blood pressure Diastolic blood pressure Provider Name and Address Organization Details Last Updated DateTime 0 90 /min 98 % 98 % 98.3 [degF] 18 /min 112 mm[Hg] 58 mm[Hg] Not Available Critical access hospital 0 09:52:46 Date Recorded Respiratory rate Oxygen saturation Oxygen saturation in Arterial blood by Pulse oximetry Body temperature Heart rate Systolic blood pressure Diastolic blood pressure Provider Name and Address Organization Details Last Updated DateTime 2 18 /min 98 % 98 % 97.7 [degF] 74 /min 114 mm[Hg] 68 mm[Hg] Not Available Critical access hospital 2 14:57:34 Social History Question Answer Notes LastModified by Organizat ion Details LastModified Time Tobacco Smoking Status Former Smoker ANI MERRITT NP [address] [facility] [place], [address], [place] [facility] 08/03/2019 17:19:22 Do You Have An Advance [...] Coronary Artery Disease N High Cholesterol N Cancer N Pulmonary Embolism N Stroke N Hypertension Y Asthma Y COPD N Depression Y Kidney Disease N Gynecological HistoryNo gynecological history recorded. Obstetrics History GPAL:G 0 P 0 0 0 0 Past Encounters Encounter ID Performer Location Encounter Start Date Encounter Closed Date Diagnosis/Indication Diagnosis SNOMED-CT Code Diagnosis ICD10 Code Diagnosis Note [id number] ANI MERRITT NP [facility] [address] [place] [address] 08/03/2019 17:07:49 08/04/2019 16:16:45 Abdominal pain 88596191 R10.9 [id number] ANI MERRITT NP [facility] - [facility] [address] [place] [address] 08/19/2019 20:15:27 08/20/2019 17:21:09 Dizziness present 876110741 R42 Acute vomiting 79931440 R11.10 [id number] ANI MERRITT NP [facility] - [facility] [address] [place] [address] 08/31/2019 16:09:02 09/03/2019 13:28:55 Sciatica 35060833 M54.32 [id number] KINA PHILLIPS [facility] [address] [place] [address] 11/01/2019 14:16:21 11/03/2019 15:44:39 Lumbago with sciatica 788265828 M54.42 [id number] KINA ROGERS [facility] [address] [place] [address] 11/23/2019 09:30:22 11/27/2019 10:52:45 Pain of right wrist 6528723650 29020 M25.531 [id number] KINA Kothari [facility] - [facility] [address] [place] [address] 06/03/2021 14:53:00 06/06/2021 19:57:36 Viral syndrome 147178485 B34.9 Proper Personal Protective Equipment (PPE), including [...] after care of this patient according to Count includes the [facility]'s infection prevention protocols. Overview/H istory: 60 yo female with 2-3 days of sinus pressure, congestion and clear drinage, dry cough, and sore throat is seen for eval. She was placed on pred 20mg QD x5d by her whiskey proof reader yesterday. Exam: neuro exam wnl, ENT exam [...] free fluid intake-and will discuss with her whiskey proof reader sunday if there are no improvemen t [...] Valdez Member ID Guarantor Name 08/19/2019 1 [facility] - DOS PRIOR TO 2022 - DUAL ELIGIBLE (MEDICARE REPLACEMENT/ADV ANTAGE - HMO) Elizabeth Leot [id number] Elizabeth Leot 08/31/2019 1 [facility] - DOS PRIOR TO 2022 - DUAL ELIGIBLE (MEDICARE REPLACEMENT/ADV ANTAGE - HMO) Elizabeth Perezgent [id number] Elizabeth Perezgent 11/01/2019 1 [facility] - DOS PRIOR TO 2022 - DUAL ELIGIBLE (MEDICARE REPLACEMENT/ADV ANTAGE - HMO) Elizabeth Perezgent [id number] Elizabeth Perezgent 11/23/2019 1 [facility] - DOS PRIOR TO 2022 - DUAL ELIGIBLE (MEDICARE REPLACEMENT/ADV ANTAGE - HMO) Elizabeth Perezgent [id number] Elizabeth Perezgent 06/03/2021 1 [facility] - DOS PRIOR TO 2022 - DUAL ELIGIBLE (MEDICARE REPLACEMENT/ADV ANTAGE - HMO) Elizabeth Huang [id number] Elizabeth Huang Notes Date Note Type Note [...] ago. ANI MERRITT, CHRISTIANO [address], [place], [address], [place] [facility] 08/19/2019 21:17:01 08/31/2019 text/html Pt reports left hip pain that has been dx as sciatica. She has gone for an evaluation for PT and is awaiting insurance approval. Pt has been referred to a hip specialist at [facility] and confirmed that it was sciatica. Pt [...] well. ANI MERRITT, CHRISTIANO [address], [place], [address], [place] [facility] 08/31/2019 16:58:16 11/01/2019 text/html [...] B/B control. KINA PHILLIPS [address], [place], [address], [place] [facility] 11/01/2019 16:52:45 11/23/2019 text/html [...] other complaints. KINA ROGERS [address], [place], [address], [place] [facility] 11/23/2019 11:49:51 06/03/2021 text/html 60 yo female new to provider known to [facility] reports a sinus infection going on (+) sinus headache 2-3 dayspain now /10 improved with APAPpt reports she spoke with her whiskey proof reader Lakshmi Luna yesterdayand she was prednisone 20mg QD x5dshe has not called them back since yesterdaynares are patent and she reports some clear to green drainageshe has some assoc sore throat, and dry cough KINA Kothari [address] [place] [address], [address], [place] [facility] 06/03/2021 15:30:17 OBGyn Episode No OBEpisode recorded.
--- OUTSIDE RECORDS SUMMARY | 2024-05-06 16:01 | XMS_ITS | Continuity of Care Document ---
Author Organization [facility] Address [address] [place] [address] Care Team Providers Care Child Development Consultant Name Role Phone HIM CCA OTHER PONCHO BAHENA Primary Care Provider Assessment No assessment recorded. Plan of Treatment [...] 2120 Augmentin medicatio n diarrhea Not available [facility] 04/30/2022 41575 2 RxNorm GAURAV DHILLON MD [address] [place] [address],[address], [place], [address] [facility] 4 09:58:09 4312 Bactrim medicatio n Not available Not available Not available 02/20/2023 98380 9 RxNorm Not Available [facility] - production 4 03:41:14 4313 sulfameth oxazole / trimethop rim medicatio n Not available Not available Not available 02/20/2023 98461 RxNorm Marita Ramos MD [address] [place] [address],[address], [place], [address], [facility] 4 14:13:42 4314 doxycycli ne Not available Not available Not available Not available 02/20/2023 3640 Rx[facility] Not Available [facility] 4 03:41:14 5895 Seroquel medicatio n Not available Not available Not available 09/30/2023 11959 RxNorm GAURAV DHILLON MD [address] [place] [address],[address], [place], [address], [facility] 4 18:08:17 5896 fluoxetin e medicatio n Not available Not available Not available 09/30/2023 4493 RxNorm GAURAV DHILLON MD [address] [place] [address],[address], [place], [address], [facility] 4 18:08:31 5897 nabumeton e medicatio n Not available Not available Not available 09/30/2023 67951 RxNorm GAURAV DHILLON MD [address] [place] [address],[address], [place], [address], [facility] 4 18:08:46 5898 propranol ol medicatio n Not available Not available Not available 09/30/2023 8787 RxNorm GAURAV DHILLON MD [address] [place] [address],[address], [place], [address], [facility] 4 18:09:03 7995 Product containin g penicilli n (product) medicatio n Not available Not available Not available 12/11/2023 12252 8001 SNOMED Not Available [facility] 4 03:41:14 Medications Name Sig [...] propionate 50 mcg/actuatio n nasal spray,suspen zoe Huxley 1 spray every day by intranasal route. [...] Address Organization Details Last Updated DateTime 5 67 /min 16 /min 99 % 99 [...] SNOMED-CT Code Diagnosis ICD10 Code Diagnosis Note [id number] Rangel Robledo MD Main - [facility] [address] [place] [address] 03/27/2024 11:44:09 03/27/2024 14:25:14 Sore throat 741628812 J02.9 [id number] Ninoska Juarez MD Main - [facility] [address] [place] [address] 03/29/2024 17:58:44 03/30/2024 15:29:24 Pharyngitis 902022802 J02.9 [id number] [facility] [address] [place] [address] 04/13/2024 12:47:37 04/14/2024 09:49:23 Viral upper respiratory tract infection 700635092 J06.9 Acute pharyngitis 982588 003 J02.9 [id number] Rogelio Vasquez MD Main - [facility] [address] [place] [address] 04/17/2024 18:32:56 04/17/2024 21:18:53 Effusion of joint of right knee 6785896200 75904 M25.461 Effusion with difficulty walking; in past [...] Valdez Member ID Guarantor Name 04/17/2024 1 [facility] - DOS ON OR AFTER 2022 - DUAL ELIGIBLE - [employer] OPTIONS AND ONE CARE (MEDICARE REPLACEMENT/ADV ANTAGE - HMO) Elizabeth Perezgent [id number] Elizabeth Kamala Reina Notes Date Note Type Note Provider [...] Rheumatoid Arthritis PMH Reviewed at 04/17/2024 - 17:02 Allergies Reviewed at 04/17/2024 - :02 Comments: [...] ................... ................... ................... ................... ................... ................... ........ Jewelry Estimator Note From Jacques Nix: Dispatched to the [...] 911 called on behalf of the Pt. [facility] ALS unit transported Pt to [facility] ED per her request. All times are approx. ................... ................... ................... ................... ................... ................... ................... ........ [facility] Consulted: Víctor Vasquez ................... ................... ................... ................... ................... ................... ................... ........ Disposition: Jamie Vasquez MD [address] [facility], [place], [address], [place] - [place], [facility] 04/17/2024 20:43:33 OBGyn Episode No OBEpisode recorded.
--- OUTSIDE RECORDS SUMMARY | 2024-05-06 16:01 | XMS_ITS | Encounter Summary ---
Author Organization [facility] Address [address] [place] [address] Care Team Providers Care Configuration Technician Name Role Phone Clare Wilson Annemarie Primary Care Provider [phone] Encounter Details Date Type Department Care Team (Late Contact Info) Description 01/16/2024 Orders Only [facility] Surgery [address] [place], [place] [id number] Jesus Gillis MD [address] [place] [address] Social History Tobacco Use Types Packs/Day Years [...] Description 06/06/2024 2:45 PM EDT Procedure visit [facility] Medicine [address], [place] [id number] Sandy Snyder DO [address] [place] [address] 07/17/2024 11:30 AM EDT Follow-[facility] [address] [place] [address] Luis Minor MD [address] [place] [address] documented as of this encounter Visit Diagnoses Not on filedocumented in this encounter Care Teams Configuration Technician Relationship Specialty Start Date End Date Clare Wilson [address] [place] [address] PCP - General Family Medicine 09/10/23 documented as of this encounter
--- OUTSIDE RECORDS SUMMARY | 2024-05-06 16:01 | XMS_ITS | Continuity of Care Document ---
Author Organization [facility], [facility] Address [address] [place] [address] Care Team Providers Care Undercollar Baster Name Role Phone HIM CCA OTHER PONCHO BAHENA Primary Care Provider [phone] Assessment No assessment recorded. Plan of Treatment Reminders Order Date Submit Date Provider Last Modified By Organization Details Last Modified Time Details Appointments None recorded. Lab None recorded. Referral None recorded. Procedures None recorded. Surgeries None recorded. Imaging None recorded. Medication Orders ketorolac 30 mg/mL injection solution 2024 025 [facility], [address] [place] [address], [address], 5 18:04:09 Patient TargetsNo targets recorded. Patient InstructionsNo instructions [...] medicatio n diarrhea Not available low 04/30/2022 22678 2 RxNorm EMELY DHILLON MD [address] [facility],[address], [place], [address] , [facility] [employer] [facility] 4 09:58:09 4312 Bactrim medicatio n Not available Not available Not available 02/20/2023 03009 9 RxNorm Not Available [facility] - production 4 03:41:14 4313 sulfameth oxazole / trimethop rim medicatio n Not available Not available Not available 02/20/2023 85937 RxNorm Marita Ramos MD [address] [place] [address],[address], [place], [place], [address] [place] [address] 0, [facility] 4 14:13:42 4314 doxycycli ne Not available Not available Not available Not available 02/20/2023 3640 RxNorm Not Available [facility] - production 03:41:14 5895 Seroquel medicatio n Not available Not available Not available 09/30/2023 43648 RxNorm EMELY DHILLON MD [address] [place] [address],[address], [place], [place], [address] [place] [address] 0, [facility] 4 18:08:17 5896 fluoxetin e medicatio n Not available Not available Not available 09/30/2023 4493 RxNorm EMELY DHILLON MD [address] [place] [address],[address], [place], [address] [place] [address] 0, [facility] 4 18:08:31 5897 nabumeton e medicatio n Not available Not available Not available 09/30/2023 81384 RxNorm EMELY DHILLON MD [address] [place] [address],[address], [place], [address] [place] [address] 0, [facility] 4 18:08:46 5898 propranol ol medicatio n Not available Not available Not available 09/30/2023 8787 RxNorm EMELY DHILLON MD [address] [place] [address],[address], [place], [address] [place] [address] 0, [facility] 4 18:09:03 7995 Product containin g penicilli n (product) medicatio n Not available Not available Not available 12/11/2023 31297 8001 SN[facility]ED [facility] Available [facility] 03:41:14 Medications Name Sig Start [...] propionate 50 mcg/actuatio n nasal spray,suspen zoe [place] 1 spray every day by intranasal route. [...] Vitals Date Recorded Respiratory rate Heart rate Body weight Body temperature Body height Oxygen saturation Oxygen saturation in Arterial blood by Pulse oximetry Systolic blood pressure Diastolic blood pressure Provider Name and Address Organization Details Last Updated DateTime 5 20 /min 59 /min 59042.4 16 g 97.9 [degF] 154.94 cm 98 % 98 % 118 mm[Hg] 80 mm[Hg] Not Available [facility] - production 18:00:08 Social History None recorded. Functional Status None recorded. Mental Status None recorded. Family History Nothing Reported. Medical History No medical history recorded. Gynecological HistoryNo gynecological history recorded. Obstetrics History GPAL:G 0 P 0 0 0 0 Past Encounters Encounter ID Performer Location Encounter Start Date Encounter Closed Date Diagnosis/Indication Diagnosis SNOMED-CT Code Diagnosis ICD10 Code Diagnosis Note [id number] Rangel Robledo MD [facility] - [address] [address] 04/13/2024 12:47:37 04/14/2024 09:49:23 Viral upper respiratory tract infection 459900528 J06.9 Acute pharyngitis 542684 003 J02.9 [id number] [facility] [address] [place] [id number] 04/17/2024 18:32:56 04/17/2024 21:18:53 Effusion of joint of right knee 7928369158 48158 M25.461 Effusion with difficulty walking; in past has required drainage. Given severity of pain advised to go to ED for evaluation and patient in agreement in order to get aspiration . [id number] Marita Ramos MD Main - [address] [address] 04/21/2024 20:25:45 04/22/2024 10:22:29 Generalized anxiety disorder 24410536 F41.1 [id number] EMELY DHILLON MD Main - [facility] [address] [place] [phone] 05/03/2024 18:00:06 05/05/2024 13:55:51 Pain of right knee joint [id number] 50831 M25.561 Evaluation in the field was performed by my clinical trials systems administrator colleague, as noted above, I provided real-time direction and supervisio n for this visit. The evaluation revealed a 63-year-ol d female presenting with progressiv parag worsening right knee pain over the past two weeks. The patient reports that her right knee pain has been steadily increasing in intensity for the past two weeks. She has been managing the pain with ice and Tylenol, which have provided some relief. The pain began while walking down the hallway in her apartment building and has become significan tly sore. She denies any specific traumatic event such as twisting or injuring the knee. To assist with mobility, she has been using a walker, which she had for a different issue. The patient has an upcoming appointmen t with an orthopedic clinic in two days but is seeking assistance with pain management due to the severity of her current symptoms in the interim.De nies fever, chills, chest pain, shortness of breath, weakness, numbness in the left arm, nausea, or vomiting.N o history of chronic kidney disease .No gastrointe stinal issuesNot on anticoagul ation.Last received Ketorolac on February 15 for shoulder pain. VS stableExam done and discussed with the clinical trials systems administrator : R knee reveals visible swelling and palpable warmth, as compared to the L, but no redness, streaking, or other obvious signs of infection are noted. Anterior/p osterior drawer, valgus/sudhir us test, and McConnells tests are negative. Pt has pain and begins to cry w/ testing and palpation, so no pivot shift or grind test are performed. Nothing remarkable noted w/ palpation of patella, patellar tendon, MCL/LCLAll ergies reviewed Impression :Right knee pain/ swelling Plan:-The presentati on is consistent with acute on chronic right knee pain pain, without concern for a traumatic or infectious etiology.- Administer ed Ketorolac 30 mg IM x1 for pain relief.-Ad vised the patient to use ice, take Tylenol, and continue gabapentin for pain management .-Recommen ded the patient go keep her Appointmen t with Orthopedic as scheduled on Friday 05/05-Red flags were reviewed with the patient, including worsening pain, swelling redness, fever, chills or inability to move put weight on that leg Primary care, consider__ _ Dispositio n: We [...] or worsening serious symptoms, particular ly worsening pain, swelling redness, fever, chills or inability to move put weight on that leg Health Concerns Section Related Observation LastModified by Organization Detai ls LastModified Time None Recorded Concern Status LastModified by Organization Details LastModified Time None Recorded Payers Encounter Date Sequence Insurance Name Policy Number Policy Valdez Covered Member ID Valdez Member ID Guarantor Name 05/03/2024 1 [facility] - DOS ON OR AFTER 2022 - DUAL ELIGIBLE - CORRECTION OPTIONS AND ONE CARE (MEDICARE REPLACEMENT/ADV ANTAGE - HMO) Elizabeth Huang [id number] Elizabeth Huang Notes Date Note Type Note Provider Name and Address Organization Details Recorded Time 05/03/2024 text/html [facility] Nurse Triage Notes (Alberto Morocho): Reason For Request: knee painDenies: Worst Headache of life New onset of vision loss Sudden onset -unilateral weakness/gait disturbance Fall with head strike and altered LOC New onset of Slurred speech or difficulty finding words Sudden Mental status changes Head pain with fever chills and neck pain Seizure activity Chief Complaints: Extremity SwellingPMH: COPD/Asthma, Severe Persistent Mental Illness (SPMI), Hypertension, Anxiety Disorder, Rheumatoid ArthritisPMH Reviewed at 05/03/2024 - :54Allergies Reviewed at 05/03/2024 - :54Comments: Bonding Molder verified the Pt.'s name//address and phone number. Education provided on the response time and the Pt. was advised to monitor reported s/s and seek emergency treatment if needed. Pt reports right knee pain -Radiating down her leg -History of same - Warm to the touch - Ortho appointment scheduled on Sunday - Swelling - Denies bruising - Reports taking Tylenol and Motrin with some relief. .................. .................. .................. .................. .................. .................. .................. ............... Still Operator Brandy Note From Cheyanne Wilson: AMINA makes pt contact. She is laying supine on the sofa of her apartment speaking to a friend who is in the kitchen area. She is resting w/ her head resting on her arm and her R pant leg is pulled up over her knee. She is not in acute distress. There is no ashen or richey color noted, no painful grimace or neurological s/s observed, and she is not bleeding anywhere. Pt endorses R knee pain that has been getting steadily worse over the past two weeks. She does have an appointment w/ an orthopedic clinic in two days, but the pain is getting intolerable, and she is wanting some help w/ pain control as a bridge to her appt. She has been icing and taking Tylenol, which is helping some . Pt denies any single traumatic event where she twisted or otherwise injured the knee. She says she began experiencing pain while walking down the hallway in her apartment building and it started to feel very sore. She has been using a walker she has had for a different issue in order to get around. Pt says [facility] visited her a week ago for the same thing and it has continued to get worse. She has no other complaints at this time. [facility] obtains vital signs and pt is assessed. Focused assessment on pt's R knee reveals visible swelling and palpable warmth, as compared to the L, but no redness, streaking, or other obvious signs of infection are noted. Anterior/posterior drawer, valgus/varus test, and McConnells tests are negative. Pt has pain and begins to cry w/ testing and palpation, so no pivot shift or grind test are performed. Nothing remarkable noted w/ palpation of patella, patellar tendon, MCL/LCL. All tests performed in comparison to the L. [facility] contacts [facility] and discusses the above. [facility] orders 30mg ketorolac IM for pt. [facility] administers 30mg ketorolac in the R deltoid and covers w/ an adhesive bandage. [facility] recommends pt continue w/ ice and Tylenol for pain and continue w/ elevation and limiting activity on the knee until she has her appt on Sunday. Pt is also encouraged to call back if necessary. [facility] is clear. Report completed by ROULA Wilson [id number]. [facility] Medication Orders: ketorolac 30 mg/mL injection solution: Administered .................. .................. .................. .................. .................. .................. .................. ............... [facility] Consulted: Emely Dhillon .................. .................. .................. .................. .................. .................. .................. ............... Disposition: Jamie DHILLON MD [address] [facility],[address], [place], [address], [facility] 05/03/2024 19:14:21 OBGyn Episode No OBEpisode recorded.
--- OUTSIDE RECORDS SUMMARY | 2024-05-06 16:01 | XMS_ITS | Encounter Summary ---
Author Organization [facility] Address [address] [place] [address] Care Team Providers Care Carpenter And Joiner Name Role Phone Clare Wilson Primary Care Provider [phone] Reason for Visit * Reason Onset Date Comments PAC Appt Request - Established_Iván 03/20/2024 Encounter Details Date Type Department Care Team (Late st Contact Info) Description 03/20/[address] [address] Telephone Intake, Staff PAC Appt Request - [...] - 03/20/2024 10:54 AM EST Nithin Patients lead case manager calling to reschedule todays L shoulder post op due to weather. Please call him to reschedule at [phone]. Thank you documented in this encounter Plan of Treatment Upcoming Encounters Date Type Department Care Team (Late st Contact Info) Description 06/06/2024 2:45 PM EDT Procedure visit [address] [address] Sandy Snyder DO [address] [place] [phone] 07/17/2024 11:30 AM EDT Follow-Up [address] [address] Luis Minor MD [address] [place] [phone] documented as of this encounter Visit Diagnoses Not on filedocumented in this encounter Care Teams Carpenter And Joiner Relationship Specialty Start Date End Date Clare Wilson [address] [place] [phone] PCP - General Family Medicine 09/10/23 documented as of this encounter
--- OUTSIDE RECORDS SUMMARY | 2024-05-06 16:01 | XMS_ITS | Referral Summary ---
Author Organization [facility] Address [address] [place] [address] Care Team Providers Care Health Care / Medical Job Titles Name Role Phone Clare Wilson Annemarie Primary Care Provider [phone] Encounters Date Type Department Care Team Description 04/03/2024 2:00 [place] [address] Luis Minor MD Adhesive capsulitis of left shoulder (Primary Dx) 03/20/[address] [address] Telephone Intake, Staff PAC Appt Request - Established_Iván 03/05/[address] [address] Telephone Intake, Staff PAC Dr. Minor_ Left shoulder rotatorcuff_ PostOP 02/28/[address] [address] Telephone Intake, Staff pac- post op-Iván from Last 3 Months Allergies Active Allergy [...] mellitus 12/05/2021 Hearing loss 12/05/2021 Overview (12/05/2021): [facility] audiology History of total hysterectom y with bilateral salpingo-oophorectomy (BSO) 12/05/2021 Lower urinary tract infectious disease Menopausal syndrome 12/05/2021 Obesity 12/05/2021 Osteoarthritis 12/05/2021 Pelvic pain in female 12/05/2021 Pernicious anemia 12/05/2021 Posttraumatic stress disorder 12/05/2021 Respiratory abnormalities 12/05/2021 Shoulder pain 12/05/2021 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 Vertigo 12/05/2021 Trigger finger of thumb 11/10/2021 Overview (11/10/2021): Added automatically from request for surgery [id number] Trigger index finger of left hand 11/10/2021 Overview (11/10/2021): Added automatically from request for surgery [id number] COVID-19 virus infection 11/25/2020 Overview (12/05/2021): Last [...] Description 06/06/2024 2:45 PM EDT Procedure visit [address] [address] Sandy Snyder DO [address] [place] [phone] 07/17/2024 11:30 AM EDT Follow-Up [address] [address] Luis Minor MD [address] [place] [id number] Medical Devices Implanted Type Area Unix Consultant Device Identifier Shelf Expiration Date Model / Serial / Lot [place] Suture Double Loaded With White/Blue White/Black Suturetape [employer] - [id number] Implanted:Qty: 1 on 04/02/2020 by Luis Minor MD at [facility] Implant Right: Shoulder [employer] 01/11/2023 [id number] / / [id number] Insurance [facility] [place] [id number] Advance Directives * Full Code (Latest Code Status on File) Date Activated Date Inactivated Comments 04/02/2020 10:29 AM 04/02/2020 6:36 PM Healthcare Agents on File Name Relationship Healthcare Agent [facility] p Communication Pilar Olvera Sister Next of Kin [phone] (Kamala griffin) Care Teams Health Care / Medical Job Titles Relationship Specialty Start Date End Date Clare Wilson [address] [place] [phone] PCP - General Family Medicine 09/10/23
--- OUTSIDE RECORDS SUMMARY | 2024-05-06 16:02 | XMS_ITS | Data Portability ---
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 Evaluation in the field was performed by my admissions advisor colleague, as noted above, I provided real-time [...] tpain, cough atilhou Not available 03/29/2024 18:07:00 04/13/2024 04/13/2024 I have reviewed and agree with the assessment and plan as documented by the admissions advisor. I provided real time medical direction for this encounter and was immediately available to provide additional phone based assistance as needed. History as noted by admissions advisor. Pt with history of COPD, ex smoker, [...] and evaluation. btils Not available 04/13/2024 13:10:03 04/21/2024 04/21/2024 I provided real -time medical direction via phone for this encounter and was available for additional phone-based assistance as needed. I have reviewed and agree with the Assessment and Plan as documented by the Research Animal Attendant. Patient given the opportunity to ask questions. Our service contacted for an assessment of: Palpitations As per above, patient with a history of excessive caffeine intake and generalized anxiety disorder. Calls this service for concern of racing heart rate after stating she had excessive caffeine intake. Denies dyspnea on exertion and shortness of breath. Per admissions advisor on the scene, vital signs are stable [...] Lab rapid strep group A, throat 2024 [facility], [address] [place] [address], [id number], 12:55:09 rapid SARS CoV 2 Ag, QL IA, respiratory specimen [address], [address], 12:55:09 rapid flu (A+B) 2024 025 [facility], [address] [place] [address], [address], 12:55:09 rapid SARS CoV 2 Ag, QL IA, respiratory specimen 2024 025 [facility], [address] [place] [address], [address], 19:53:01 rapid flu (A+B) 2024 025 [facility], [address] [place] [address], [address], 19:52:39 Referral None recorded. Procedures None recorded. Surgeries None recorded. Imaging None recorded. Medication Orders ketorolac 30 mg/mL injection solution 2024 025 [facility], [address] [place] [address], [address], 18:04:09 Patient TargetsNo targets recorded. Patient InstructionsNo instructions recorded. Reason for Referral None Reported. Results Created Date Observation Date Name Description Value Unit Range Abnormal Flag Note LastModifiedBy Organization Detail LastModifiedTime 03/27/19 25 03/27/2024 rapid strep group A, throa t Strep negati ve Not Available [facility] ed [address] [place] [address], [address], 03/27/2024 11:54:46 03/29/19 25 03/29/2024 rapid SARS CoV 2 Ag, QL IA, respi rator y speci men rapid SARS CoV 2 Ag, QL IA, respiratory specimen negati ve Not Available [facility] ed [address] [place] [address], [address], 03/29/2024 18:05:28 03/29/19 25 03/29/2024 rapid flu (A+B) Flu negati ve Not Available [facility] ed [address] [place] [address], [address], 03/29/2024 18:05:28 Result Notes None recorded. Medical [...] medicatio n diarrhea Not available low 04/30/2022 66418 2 RxNorm EMELY DHILLON MD [address] [place] [address],[address], [place], [address], [facility] - [facility], [facility] 4 09:58:09 4312 Bactrim medicatio n Not available Not available Not available 02/20/2023 88296 9 RxNorm Not Available [facility] - production 4 03:41:14 4313 sulfameth oxazole / trimethop rim medicatio n Not available Not available Not available 02/20/2023 40338 RxNorm Marita Ramos MD [address] [place] [address],[address], [place], [address], [facility] 4 14:13:42 4314 doxycycli ne Not available Not available Not available Not available 02/20/2023 3640 RxNorm Not Available [facility] - production 03:41:14 5895 Seroquel medicatio n Not available Not available Not available 09/30/2023 62427 RxNorm EMELY DHILLON MD [address] [place] [address],[address], [place], [address], [facility] 4 18:08:17 5896 fluoxetin e medicatio n Not available Not available Not available 09/30/2023 4493 RxNorm EMELY DHILLON MD [address] [place] [address],[address], [place], [address], [facility] 4 18:08:31 5897 nabumeton e medicatio n Not available Not available Not available 09/30/2023 74066 RxNorm EMELY DHILLON MD [address] [place] [address],[address], [place], [address], [facility] 4 18:08:46 5898 propranol ol medicatio n Not available Not available Not available 09/30/2023 8787 RxNorm EMELY DHILLON MD [address] [place] [address],[address], [place], [address], [facility] 4 18:09:03 7995 Product containin g penicilli n (product) medicatio n Not available Not available Not available 12/11/2023 36644 8001 SNOMED Not Available [facility] - production 03:41:14 Medications Name Sig Start Date Stop Date Status Note LastModified by Organization Details LastModified Time Prescription - Renewal active Not Available Not Available No t Available cod liver cap active Not Available Not Available Not Available multivitamin tablet active Not Available Not Available Not Available ketorolac 15 mg/mL injection solution Inject 15 mg by intramuscul ar route for 1 day. 06/01/ 2024 active Not Available Not Available Not Avai [...] propionate 50 mcg/actuatio n nasal spray,suspen zoe Cecil 1 spray every day by intranasal route. [...] [degF] 116 mm[Hg] 69 mm[Hg] Not Available [facility] - production 5 17:58:46 Date Recorded Heart rate Body weight Respiratory rate Body temperature Oxygen saturation Oxygen saturation in Arterial blood by Pulse oximetry Body height Systolic blood pressure Diastolic blood pressure Provider Name and Address Organization Details Last Updated DateTime 5 85 /min 26417.1 52 g 18 /min 98.4 [degF] 94 % 94 % 154.94 cm 133 mm[Hg] 75 mm[Hg] Not Available [facility] - production 5 12:47:43 Date Recorded Heart rate Respiratory rate Oxygen saturation Oxygen saturation in Arterial blood by Pulse oximetry Body temperature Systolic blood pressure Diastolic blood pressure Provider Name and Address Organization Details Last Updated DateTime 5 67 /min 16 /min 99 % 99 % 98.5 [degF] 142 mm[Hg] 70 mm[Hg] Not Available [facility] - production 5 18:36:07 Date Recorded Oxygen saturation Oxygen saturation in Arterial blood by Pulse oximetry Body temperature Heart rate Respiratory rate Systolic blood pressure Diastolic blood pressure Provider Name and Address Organization Details Last Updated DateTime 5 99 % 99 % 98.2 [degF] 78 /min 16 /min 134 mm[Hg] 84 mm[Hg] Not Available [facility] - production 5 20:25:47 Date Recorded Respiratory rate Heart rate Body weight Body temperature Body height Oxygen saturation Oxygen saturation in Arterial blood by Pulse oximetry Systolic blood pressure Diastolic blood pressure Provider Name and Address Organization Details Last Updated DateTime 5 20 /min 59 /min 86261.4 16 g 97.9 [degF] 154.94 cm 98 [...] Note 112 Amisha Huntley MD [facility] [address] [place] [address] 03/31/2021 20:59:17 08/30/2021 11:57:03 Osteoarthritis of right knee joint 1585759165 12852 M17.11 Pain of ri ght knee joint 7312207641 69519 M25.561 1721 Luis Cutler MD Main - [address] [address] 07/03/2021 12:08:30 10/26/2021 13:35:38 Urinary tract infectious disease 54752313 N39.0 This order set is for complicate d UTIs -- those with concern for early pyelo, abnormal anatomy, indwelling catheter, or other higher-ris k features. For MDRO options see UTI-MDRO Kidney stone 73238563 N2 0.0 Acute cystitis 85968444 N30.00 These are first-line agents for lower-risk , uncomplica sharmin UTI. For resistance concerns, early pyelo, or other complicati ons, see complicate d UTI [id number] Maryanne Yip MD Main - [facility] [address] [place] [address] 09/04/2021 13:33:24 10/18/2021 16:29:06 Pain in right foot 6339505445 09087 M79.671 Pt p/w acute onset atraumatic foot [...] assessment and plan as documented by the admissions advisor. I provided real time medical direction for this encounter and was immediatel y available to provide additional phone based assistance as needed. [id number] Luis Cutler MD Main - [facility] [address] [place] [address] 12/04/2021 16:52:50 12/05/2021 14:55:01 Upper respiratory infection 79840196 J06.9 6649 Amisha Huntley MD Main - [facility] [address] [place] [address] 02/11/2022 14:16:07 02/14/2022 16:09:43 COVID-19 043496076 U07.1 pat on carbamazep ine expl paxlovid [...] send refill- she requests Rx go to [facility] in [facility] due to holiday weekend( [facility]l [facility]) Due to dark green sputum may have bacterial superinfec tion in sinuses or lungs will cover w/ azithromyc in which she reports she tolerates well. Advised Tylenol for pain/ fever has 500 mg caps- can take 1000 mg 3x /24 hrs based on her stated weight [id number] Luis Soto MD Main - [facility] [address] [place] [address] 02/14/2022 19:31:12 02/16/2022 10:53:42 COVID-19 824938395 U07.1 [id number] Rogelio Vasquez MD Main - [facility] [address] [place] [address] 02/18/2022 19:38:25 02/20/2022 10:27:07 Acute exacerbation of chronic obstructive pulmonary disease 877289729 J44.1 Wheezing on exam. Was not candidate for anti-viral s for COVID. Prednisone improved symptoms. WIll rx for additional 5 days. COVID-19 675564184 U07.1 Was not candidate for anti-viral s. Prednisone improved symptoms. WIll rx for additional 5 days. 7057 Maryanne Yip MD Main - [facility] [address] [place] [address] 02/26/2022 16:27:03 02/28/2022 12:34:42 Exacerbation of moderate persistent asthma [id number] J45.41 Pt with recent COVID infection (now [...] assessment and plan as documented by the admissions advisor. I provided real time medical direction for this encounter and was immediatel y available to provide additional phone based assistance as needed. 7393 Luis Cutler MD Main - [facility] [address] [place] [address] 03/12/2022 21:49:28 03/14/2022 10:01:04 Postviral cough 078527604 R05.3 As noted, we were called to see this patient regarding concerns of cough and respirator y symptoms following COVID and PNA, treated with cefpodoxim e and possibly also azithro. Evaluation in the field was performed by my admissions advisor colleague, as noted above, I provided real-time [...] 7820 Luis Soto MD Main - [facility] [address] [place] [phone] 03/30/2022 16:57:05 04/06/2022 14:01:29 Acute urinary tract infection 840783403 N39.0 7909 Mandy Portillo MD Main - [facility] [address] [place] [address] 04/03/2022 20:15:34 04/06/2022 15:58:00 Viral upper respiratory tract infection 024528795 J06.9 [id number] Maryanne Yip MD Main - [facility] [address] [place] [address] 04/16/2022 13:22:29 04/18/2022 09:19:04 Productive cough 21997524 R05.9 Evaluation in the field was performed by my admissions advisor colleague, as noted above, I provided real-time [...] 8475 Mandy Portillo MD Main - [facility] [address] [place] [address] 04/24/2022 18:57:17 04/26/2022 10:49:34 Flank pain 090560839 R10.9 8654 Amisha Huntley MD Main - [facility] [address] [place] [address] 04/30/2022 18:17:58 05/02/2022 09:44:42 Pain of right shoulder joint 6114734768 6323717 M25.511 pat had nl renal function 03/02/22( [...] she verbalized understand ing of instructio ns [id number] Rogelio Vasquez MD Main - [facility] [address] [place] [address] 05/21/2022 19:11:05 05/22/2022 10:54:13 Paronychia of finger of right hand 4704838897 2530302 L03.011 No s/s of cellulitis . Advised to do warm soaks and if persistent pain to go to PCP for removal of potential ingrown nail 9545 Mandy Portillo MD Main - [facility] [address] [place] [address] 05/29/2022 18:58:29 05/30/2022 11:45:45 Pain in right thumb 4749097373 738827 M79.644 [id number] Maryanne Yip MD Main - [address] [address] 06/17/2022 12:55:35 06/19/2022 10:39:24 Thoracic back pain 556920205 M54.6 Evaluation in the field was performed by my admissions advisor colleague, as noted above, I provided real-time [...] shortness of breath, cough, chest pain, fever. [id number] Kindra Wright MD Main - [facility] [address] [place] [address] 07/03/2022 20:06:35 07/04/2022 15:03:54 Rheumatoid arthritis 93911841 M06.9 [id number] Luis Cutler MD Main - [facility] [address] [place] [address] 07/08/2022 12:56:39 07/10/2022 18:48:54 Pain 17848800 R52 As noted, we were called to see this patient regarding concerns of pain in rib and with inspiratio n subsequent to fall. Evaluation in the field was performed by my admissions advisor colleague, as noted above, I provided real-time [...] LH, or anything unusual. Fracture of rib 48345745 S22.32XA [id number] TOÑITO VARELA MD Main - [facility] [address] [place] [address] 07/09/2022 13:21:31 07/10/2022 19:03:27 Rib pain 191243832 R07.81 [id number] Elizabeth Victoria MD Main - [facility] [address] [place] [address] 07/11/2022 20:04:39 07/12/2022 09:35:01 Chronic obstructive pulmonary disease 40663346 J44.9 [id number] Yuliya Maldonado MD Main - [facility] [address] [place] [address] 07/16/2022 16:26:39 07/26/2022 10:17:58 Rib pain 068538187 R07.81 case supervised and discussed with admissions advisor. Patient was given opportunit y to ask questions, warning signs/symp toms of pertinent medical emergency reviewed. mechanical fall several weeks ago, [facility] (xrays, no fractures) but prescribed oxycodone. Continues to experience excruciati ng pain, reproducib le on palpation. Explained to patient that [facility] does not have any imaging capabiliti es for diagnostic purposes, so wont be able to provide much additional insight to the etiology of her acute pain. Pt adamant she wanted a diagnosis JERMAINE and additional therapeuti cs, for which I explained she would have to present to the ED. Pt requested admissions advisor call ambulance. [id number] Abida Mcleod MD [facility] - [address] [address] 08/27/2022 13:28:03 08/28/2022 12:04:02 Urinary symptoms 575106910 R39.9 61 year old female being evaluated [...] new symptoms before culture data are available. [id number] Mandy Portillo MD Main - [address] [address] 08/27/2022 18:13:48 08/28/2022 10:29:08 Pain 70339010 R52 [id number] Amisha Huntley MD [facility] - [address] [address] 09/04/2022 11:12:04 09/04/2022 16:13:04 Sinus headache 8106015 R51.9 Patient is already taking Johanny and she states she took Sudafed at 8 AM which helped. I advised caution with Sudafed with a history of hypertensi on as [...] time which I discussed with the patient [id number] Maryanne Yip MD Main - [facility] [address] [place] [address] 0 09/11/2022 19:18:28 09/11/2022 23:12:11 Contact dermatitis 23568795 L25.9 Evaluation in the field was performed by my admissions advisor colleague, as noted above, I provided real-time [...] shortness of breath, cough, chest pain, fever. [id number] Yuliya Maldonado MD Main - [facility] [address] [place] [address] 0 09/23/2022 17:13:29 09/26/2022 15:32:41 Pain in throat 686828062 R07.0 1-2 d sore throat iso increased exposure to high volume AC. Strep negative. Some possible sick contacts. No fevers/chi lls or other infectious sx on exam or history. takes johanny bid, endorses post nasal drip but states that any nasal spray gives her a head ache. Dicsussed monitoring and supportive care with tea/honey etc. Warning signs/sx reviewed, pt and admissions advisor agree with plan. [id number] Liam Cheung MD Main - [facility] [address] [place] [phone] 0 09/24/2022 13:32:56 09/26/2022 15:37:52 Acute pharyngitis 692211981 J02.9 Patient with pharyngiti s/laryngit is. No signs of bacterial superinfec tion. POC COVID and Strep neg. Advised continued supportive care. [id number] Amisha Huntley MD Main - [facility] [address] [place] [address] 0 09/30/2022 18:28:05 10/02/2022 07:15:34 Acute exacerbation of chronic obstructive pulmonary disease 723394717 J44.1 With possible minor URIadvised to use [...] y, but her blood sugar is normal [id number] Marita Ramos MD Main - [facility] [address] [place] [address]65[address] 0 10/12/2022 13:11:26 10/12/2022 19:18:57 Respiratory tract congestion and cough 361521912 R05.9 [id number] Jas Woodall MD Main - [facility] [address] [place] [address] 0 10/14/2022 11:55:33 10/16/2022 20:25:38 Pain of right wrist 8729061631 03213 M25.531 Dizziness 895540066 R42 [id number] Elizabeth Victoria MD Main - [facility] [address] [place] [address] 0 10/19/2022 20:24:42 10/19/2022 23:38:55 Dysuria 99514556 R30.0 Urinary symptoms 1423759 08 R39.9 [id number] Yuliya Socolovsky , MD Main - [facility] [address] [place] [address] 0 10/29/2022 10:52:45 12/12/2022 15:05:16 Cough 61749464 R05.9 I provided real -time medical direction via phone for this encounter, and was available for additional phone based assistance as needed. I have reviewed and agree with the Assessment and Plan as documented by the Research Animal Attendant. Patient given the opportunit y to ask [...] Reviewed supportive care strategies and warning signs/sx. [id number] Elizabeth Victoria MD Main - [facility] [address] [place] [address] 0 10/31/2022 19:47:09 11/01/2022 12:07:59 Acute viral pharyngitis 652226026 J02.9 [id number] Abida Mcleod MD Main - [facility] [address] [place] [address] 11/03/2022 19:45:46 11/05/2022 18:05:51 Pharyngitis 323729063 J02.9 62 year old female being evaluated [...] assessment and plan as documented by the admissions advisor. I provided real-time medical direction for this encounter and was immediatel y available to provide additional phone-base d assistance as needed. [id number] Maryanne Yip MD Main - [facility] [address] [place] [address] 0 11/05/2022 11:22:03 11/05/2022 18:18:37 Acute pharyngitis 919849232 J02.9 Evaluation in the field was performed by my admissions advisor colleague, as noted above, I provided real-time [...] shortness of breath, cough, chest pain, fever. [id number] Mandy Portillo MD Main - [address] [address] 12/19/2022 20:38:38 12/27/2022 18:34:30 Hoarse 18594118 R49.0 [id number] Marita Ramos MD Main - [facility] [address] [place] [address] 0 12/21/2022 15:09:02 12/22/2022 13:12:24 Nausea and vomiting 16284509 R11.2 [id number] Luis Cutler MD [facility] [address] [place] [address] 0 12/24/2022 17:29:23 12/25/2022 14:41:46 Cellulitis 464943525 L03.90 As noted, we were called to see this patient regarding concerns of cellulitis . Evaluation in the field was performed by my admissions advisor colleague, as noted above, I provided real-time [...] particular ly high fever, unresolvin g pain. [id number] Marita Ramos MD Main - [facility] [address] [place] [address] 0 12/27/2022 19:57:19 12/27/2022 22:46:42 Cellulitis 498850407 L03.90 [id number] Elizabeth Victoria MD Main - [facility] [address] [place] [address]68[address]211 0 01/23/2023 20:58:40 01/24/2023 13:37:45 Acute sinusitis 00297022 J01.90 [id number] EMELY DHILLON MD Main - [facility] [address] [place] [address] 0 01/27/2023 19:31:06 01/30/2023 10:07:25 Abscess 405287262 L02.91 As noted, we were called to see this patient regarding concerns of recurring right nostril abscess Evaluation in the field was performed by my admissions advisor colleague, as noted above, I provided real-time [...] surgeon, but no appt available until May.Per admissions advisor exam, right nostril blocked completely with puss Impression :Right nare abscess Plan:Pt was send to ED for I& D and possible IV antibiotic sNo Tramadol give since increases risk of bleeding during the I&D Primary care, consider__ _ Dispositio n: We discussed the situation and I recommende d referral to the emergency department . [id number] Yuliya Maldonado MD Main - [facility] [address] [place] [address] 0 02/17/2023 18:16:57 02/18/2023 15:31:40 Acute urinary tract infection 248532804 N39.0 62 yo h/o recurrent UTis today p/w 1d severe flank pain. UA positive for LE and nitrites. Pt is in significan t distress 2/2 pain on exam, reports this is much worse than prior. Requesting transport to ED. [id number] Marita Ramos MD Main - [facility] [address] [place] [address] 0 02/20/2023 14:07:45 02/21/2023 11:03:01 Renal angle tenderness 284616058 R10.829 Dysuria 69110112 R30.0 [id number] Rangel Robledo MD Main - [facility] [address] [place] [address]382 0 02/23/2023 17:39:45 02/26/2023 17:26:50 Chronic thoracic back pain 6691083717 56531 M54.6 39838 Ninoska Juarez MD Main - [facility] [address] [place] [address] 87001-983 0 03/10/2023 16:45:25 03/11/2023 15:32:12 Viral upper respiratory tract infection 008678306 J06.9 [id number] Elizabeth Victoria MD Main - [facility] [address] [place] [address] 64472-768 0 04/10/2023 20:36:05 04/11/2023 17:22:36 Pain in left foot 2977316873 81192 M79.672 [id number] Sam Perez MD Main - [facility] [address] [place] [address] 98829-599 0 04/25/2023 15:11:36 04/25/2023 22:44:01 Pain in left arm 259228646 M79.602 This 62-year-ol d female has a three month history of left upper back and shoulder pain with no history of trauma. She has been taking Tylenol, but today the pain is worse. I ordered Toradol 15 mg IM. I also recommende d she alternate ibuprofen with the Tylenol. She will follow-up with her PCP. The patient agreed with this plan. [id number] Elizabeth Victoria MD Main - [facility] [address] [place] [address]108 0 05/10/2023 20:23:10 05/14/2023 18:12:54 Acute urinary tract infection 280664860 N39.0 servce called for abd painfound 62 girish withDiabet es,COPD/As thma,Hyper tensionrec urrent UTIc/o 2-3 lower abd pain, urinary frequency, back painmost recent UCx 10/2022 with mixed floraAll: augmentin, bactrimVS noted elev BPreported examabd tender LLQ and RLQ #UTIempiri c macrobidf/ up Ucx [id number] Mandy Portillo MD Main - [facility] [address] [place] [address] 13285-581 0 05/29/2023 21:28:01 05/29/2023 22:30:30 Urinary symptoms [id number] R39.9 [id number] Sara Rucker MD Main - [facility] [address] [place] [address] 32736-151 0 05/30/2023 13:40:04 05/30/2023 15:20:06 Pyelonephritis 71553899 N12 Urinary symptoms 3980751 08 R39.9 [id number] Ninoska Juarez MD Main - [facility] [address] [place] [address] 31154-833 0 06/17/2023 20:18:31 06/19/2023 11:51:51 Community acquired pneumonia [id number] J18.9 [id number] Abida Mcleod MD Main - [facility] [address] [place] [address] 57530-809 0 07/02/2023 18:08:47 07/03/2023 17:43:48 Abdominal pain 80614236 R10.9 62 year old female being evaluated [...] assessment and plan as documented by the admissions advisor. I provided real-time medical direction for this encounter and was immediatel y available to provide additional phone-base d assistance as needed. We discussed the diagnostic uncertaint y of home visits and associated risks. We discussed the need to seek care urgently/e mergently in the setting of any new or worsening symptoms. [id number] EMELY DHILLON MD Main - [address] [address]644[address] 0 07/14/2023 20:33:44 07/16/2023 10:38:00 Urinary symptoms 010075899 R39.9 Evaluation in the field was performed by my admissions advisor colleague, as noted above, I provided real-time direction and supervisio n for this visit. The evaluation revealed 62 yo female who was seen by us on 07/01 with abdominal pain 10/10 and was sent to the ED. Pt [...] plan for BMP and IV hydration, but admissions advisor unable to place a PIV or draw [...] pain CVA tenderness or any other concerns. [id number] EMELY DHILLON MD Main - [facility] [address] [place] [address] [phone] 0 07/15/2023 20:22:18 07/16/2023 10:43:33 Left lower quadrant pain [id number] R10.32 Evaluation in the field was performed by my admissions advisor colleague, as noted above, I provided real-time [...] right side 1 yr prior. She denied MARTINEZ, dizziness, cough, sore throat, CP, SOB, diarrhea.P t was treated with ceftriaxon e and Ketorolac [...] Department Primary care, consider__ _ Dispositio n:ER [id number] Marita Ramos MD [facility] [address] [place] [address] [phone] 07/25/2023 08:03:15 07/26/2023 09:54:40 Seasonal allergy [id number] J30.2 [id number] Abida Mcleod MD [facility] [address] [place] [address] [phone] 0 09/28/2023 18:39:05 09/28/2023 20:43:24 Pain of left shoulder joint [id number] M25.512 63 year old female being evaluated [...] assessment and plan as documented by the admissions advisor. I provided real-time medical direction for this encounter and was immediatel y available to provide additional phone-base d assistance as needed. We discussed the diagnostic uncertaint y of home visits and associated risks. We discussed the need to seek care urgently/e mergently in the setting of any new or worsening symptoms. [id number] EMELY DHILLON MD Main - [facility] [address] [place] [address] [phone] 0 09/30/2023 18:55:46 10/01/2023 12:23:23 Pain of left shoulder joint [id number] M25.512 Evaluation in the field was performed by my admissions advisor colleague, as noted above, I provided real-time [...] arm, CP, SOB or any other concerns. [id number] EMELY DHILLON MD Main - [facility] [address] [place] [address] [phone] 0 10/03/2023 18:14:26 10/04/2023 12:20:55 Pain of left shoulder joint [id number] M25.512 Evaluation in the field was performed by my admissions advisor colleague, as noted above, I provided real-time [...] for Lidocaine gel sent to her pharmacy- [facility] the pharmacy was closed , so could [...] arm, CP, SOB or any other concerns. [id number] EMELY DHILLON MD Main - [facility] [address] [place] [address] [phone] 0 10/12/2023 09:53:35 10/12/2023 22:05:57 Acute sinusitis [id number] J01.90 Evaluation in the field was performed by my admissions advisor colleague, as noted above, I provided real-time [...] first dose was administer ed by the admissions advisor. -A prescripti on for Flonase was sent [...] tolerate PO, weakness or any other concerns. [id number] EMELY DHILLON MD Main - [facility] [address] [place] [address] [phone] 11/08/2023 17:29:57 11/08/2023 23:24:56 Candidal intertrigo [id number] B37.2 Evaluation in the field was performed by my admissions advisor colleague, as noted above, I provided real-time direction and supervisio n for this visit. The evaluation revealed a 63-year-ol d female with a past medical history of diabetes mellitus, COPD, hypertensi on, and chronic shoulder pain, presenting with complaints of a fungal infection under both breasts. The patient reports she went to [facility] ED on 11/04 for a rash under [...] rash in new areas any other concerns. [id number] Marita Ramos MD Main - [facility] [address] [place] [address] [phone] 0 11/12/2023 14:09:08 11/13/2023 13:10:59 Candidal intertrigo [id number] B37.2 [id number] Jas Woodall MD Main - [facility] [address] [place] [address] [phone] 0 11/29/2023 11:03:27 11/29/2023 15:42:06 Shoulder pain [id number] M25.519 [id number] Marita Ramos MD Main - [facility] [address] [place] [address] [phone] 0 12/15/2023 15:20:51 12/15/2023 19:16:04 Pruritic rash [id number] L28.2 [id number] Luis Cutler MD Main - [facility] [address] [place] [address] [phone] 0 12/16/2023 20:24:02 12/17/2023 00:34:23 Pain of bilateral hands [id number] M79.641 As noted, we were called to see this patient regarding concerns of hand pain. Evaluation in the field was performed by my admissions advisor colleague, as noted above, I provided real-time [...] today Primary care, considerch asim in call [id number] KATE KESSLER MD Main - [facility] [address] [place] [address] [phone] 0 01/03/2024 17:27:17 01/03/2024 18:46:50 Pain of right knee joint [id number] 30633 M25.561 [id number] Wes Regan MD Main - [facility] [address] [place] [address] [phone] 0 01/16/2024 19:06:51 01/17/2024 08:57:49 History of operative procedure on shoulder [id number] Z98.890 [id number] Luis Cutler MD Main - [facility] [address] [place] [address] [phone] 0 01/20/2024 18:38:49 01/20/2024 21:54:58 Shoulder pain [id number] M25.519 As noted, we were called to see this patient regarding concerns of severe shoulder pain apparently due to an injury in a sensitive recently post-op patient. Evaluation in the field was performed by my admissions advisor colleague, as noted above, I provided real-time direction and supervisio n for this visit. Impression :Severe shoulder pain, refractory to OTC APAP Plan:IV or IM ketorolac 30 mg [id number] Marita Ramos MD Main - [facility] [address] [place] [address] [phone] 0 02/10/2024 17:37:40 02/12/2024 21:08:43 Urinary symptoms [id number] R39.9 [id number] EMELY DHILLON MD Main - [facility] [address] [place] [address] [phone] 0 02/16/2024 20:12:37 02/18/2024 00:14:16 Pain of left shoulder joint [id number] M25.512 Evaluation in the field was performed by my admissions advisor colleague, as noted above, I provided real-time [...] arm, CP, SOB or any other concerns. [id number] Loi Wu MD Main - [facility] [address] [place] [address] [phone] 0 02/28/2024 13:48:17 02/28/2024 20:22:02 Upper respiratory infection [id number] J06.9 [id number] Marita Ramos MD Main - [facility] [address] [place] [address] [phone] 0 03/05/2024 16:43:16 03/05/2024 19:19:50 Asthma 283246158 J45.909 [id number] Maryanne Yip MD Main - [facility] [address] [place] [address] [phone] 0 03/15/2024 14:54:03 03/18/2024 16:38:13 Upper respiratory infection 35791229 J06.9 Evaluation in the field was performed by my admissions advisor colleague, as noted above, I provided real-time direction and supervisio n for this visit. 63yo F asthma, HTN p/w ongoing nasal congestion , cough. On prednisone x 48 hrs without improvemen t. Denies feveres, orthopnea, PND. On admissions advisor eval sat 97% rest also wnl, exam [...] shortness of breath, cough, chest pain, fever. [id number] Rogelio Vasquez MD Main - [facility] [address] [place] [address] [phone] 0 03/16/2024 10:41:49 03/18/2024 17:02:49 Viral upper respiratory tract infection [id number] J06.9 Patient 4 days into prednisone course. Vitals stable. Taking inhalers at home though mild wheezing noted by admissions advisor and administer ed duoneb with good effect. Declined COVID/flu testing as out of window for treatment. Discussed red flag signs for which to seek higher level of care. [id number] Rangel Robledo MD Main - [facility] [address] [place] [address] [phone] 0 03/27/2024 11:44:09 03/27/2024 14:25:14 Sore throat [id number] J02.9 [id number] Ninoska Juarez MD Main - [facility] [address] [place] [address] [phone] 0 03/29/2024 17:58:44 03/30/2024 15:29:24 Pharyngitis 191013790 J02.9 [id number] Rangel Robledo MD Main - [facility] [address] [place] [address] [phone] 0 04/13/2024 12:47:37 04/14/2024 09:49:23 Viral upper respiratory tract infection 384931622 J06.9 Acute pharyngitis 897234 003 J02.9 [id number] Rogelio Vasquez MD Main - [facility] [address] [place] [address] [phone] 0 04/17/2024 18:32:56 04/17/2024 21:18:53 Effusion of joint of right knee [id number] 33783 M25.461 Effusion with difficulty walking; in past has required drainage. Given severity of pain advised to go to ED for evaluation and patient in agreement in order to get aspiration . [id number] Marita Ramos MD Main - [facility] [address] [place] [address] [phone] 0 04/21/2024 20:25:45 04/22/2024 10:22:29 Generalized anxiety disorder 61369209 F41.1 [id number] EMELY DHILLON MD [facility] [address] [place] [address] [phone] 0 05/03/2024 18:00:06 05/05/2024 13:55:51 Pain of right knee joint [id number] 18985 M25.561 Evaluation in the field was performed by my admissions advisor colleague, as noted above, I provided real-time [...] VS stableExam done and discussed with the admissions advisor : R knee reveals visible swelling and [...] Valdez Member ID Guarantor Name 03/29/2024 1 [facility] - DOS ON OR AFTER 2022 - DUAL ELIGIBLE - [facility] OPTIONS AND ONE CARE (MEDICARE REPLACEMENT/ADV ANTAGE - HMO) Elizabeth Huang [id number] Elizabeth Huang 04/13/2024 1 [facility] - DOS ON OR AFTER 2022 - DUAL ELIGIBLE - [facility] OPTIONS AND ONE CARE (MEDICARE REPLACEMENT/ADV ANTAGE - HMO) Elizabeth Huang [id number] Elizabeth uHang 04/17/2024 1 [facility] - DOS ON OR AFTER 2022 - DUAL ELIGIBLE - [facility] OPTIONS AND ONE CARE (MEDICARE REPLACEMENT/ADV ANTAGE - HMO) Elizabeth Huang [id number] Elizabeth Huang 04/21/2024 1 [facility] - DOS ON OR AFTER 2022 - DUAL ELIGIBLE - [facility] OPTIONS AND ONE CARE (MEDICARE REPLACEMENT/ADV ANTAGE - HMO) Elizabeth Huang [id number] Elizabeth Huang 05/03/2024 1 [facility] - DOS ON OR AFTER 2022 - DUAL ELIGIBLE - [facility] OPTIONS AND ONE CARE (MEDICARE REPLACEMENT/ADV ANTAGE - HMO) Elizabeth Huang [id number] Elizabeth Huang Notes Date Note Type Note Provider Name and Address Organization Details Recorded Time 03/29/2024 text/html [facility] Nurse Triage Notes (Jaylen Escobar - CAROL ANN): Reason For Request: Patient lost her voice, sore throat. Denies: Sudden onset of dental pain, unable to manage own secretions Nosebleed lasting longer than one hour; unable to stop bleeding Throat swelling/difficult swallowing Chief Complaints: Sore throat PMH: COPD/Asthma, Severe Persistent Mental Illness (SPMI), Hypertension PMH Reviewed at 03/29/2024 - 14:11 Allergies Reviewed at 03/29/2024 - 14:11 Comments: Rail Splitter verified the patient's name//address and phone number. [...] emergency treatment if needed -Allison Escobar RN Research Animal Attendant Organization Information for Deonte Max [employer] Legal Name: [facility] Address: [address] [place] [address], [address] Judge: Edward Anna MD [place] No.: [id number] Research Animal Attendant POC Test Results from Raschilla, Deonte - ALS Rapid COVID antigen (17:57:58) COVID: - Rapid influenza antigen (17:57:59) Flu: - Rapid strep test (17:57:59) Strep: - ..................... ..................... ..................... ..................... ..................... ..................... ............... Research Animal Attendant Note From Deonte Max: This 63-year-old female [...] questions and is agreeable to this plan. ..................... ..................... ..................... ..................... ..................... ..................... ............... [facility] Consulted: Ninoska Juarez ..................... ..................... ..................... ..................... ..................... ..................... ............... Disposition: Fulfilled Ninoska Juarez MD [address] [place] [address],[address], [place], [phone], [employer] 03/29/2024 18:27:39 04/13/2024 text/html This was a super vised home visit with admissions advisor Cheyanne Wilson. [facility] Nurse Triage Notes (Alberto Morocho): Reason For [...] Illness (SPMI), HypertensionPMH Reviewed at 04/13/2024 - 11:34[facility] Reviewed at 04/13/2024 - 11:34Comments: Rail Splitter verified the Pt.'s name//address and phone number. [...] needed - [facility] same. ER treatment declined Research Animal Attendant Organization Information for Cheyanne Wilson Legal Name: [employer]Address: [address] [place] [address], Medical Director: Burton Kruse [facility] No.: [id number] Research Animal Attendant POC Test Results from Cheyanne Wilson - MING Rapid strep test (12:41:36)Strep: -Attachments uploaded as part of this test result can be found under Documents section. Rapid COVID antigen (12:42:22)COVID: -Attachments uploaded as part of this test result can be found under Documents section. Rapid influenza antigen (12:42:23)Flu: - ..................... ..................... ..................... ..................... ..................... ..................... ............... Research Animal Attendant Note From Cheyanne Wilson: [facility] makes pt contact. She is walking around [...] is denying fevers/chills, n/v/d, cp, and sob. [facility] obtains vistal signs and pt is assessed. Lungs present w/ expiratory wheezes. Throat appears to have some irritation, but no drainage, swelling, or pustules are noted. Neck is supple, trachea is midline w/ no swelling noted. Auscultation of the throat is clear. Pt is swabbed for COVID/flu, and strep A and all tests are negative. [facility] contacts [facility] and discusses the above. [facility] recommends pt speak w/ her PCP about seeing an ENT for a scope of her vocal cords. [facility] will send a note to pt's primary care team w/ the recommendation as well and recommends pt continue w/ her current course of care. Pt is amendable to the plan. [facility] is clear. Report completed by ROULA Wilson [id number]. [facility] Lab Orders: rapid strep group A, throat: Performed rapid SARS CoV 2 Ag, QL IA, respiratory specimen: Performed rapid flu (A+B): Performed ..................... ..................... ..................... ..................... ..................... ..................... ............... [facility] Consulted: Rangel Robledo ..................... ..................... ..................... ..................... ..................... ..................... ............... Disposition: Fulfilled Rangel Robledo MD [address] [place] [address],[address], [place], [phone], [employer] 04/13/2024 15:27:33 04/17/2024 text/html [facility] Nurse Triage Notes (Nicky Seth): Reason For Request: right knee is swollen, pt experiencing pain while walking, knee is sensitive to the touch Chief Complaints: Extremity Pain, Wound Care, Rash PMH: COPD/Asthma, Severe Persistent Mental Illness (SPMI), Hypertension, Anxiety Disorder, Rheumatoid Arthritis PMH Reviewed at 04/17/2024 - 17:02 Allergies Reviewed at 04/17/2024 - 17:02 Comments: c/o right knee swelling, pain, hot to touch. Limited ROM, hard to bear weight on, uses walker @ baseline. Onset was one day. Hx of arthroscopy in the right knee, incidence has happened before. Feels like fluid around the knee. Educated about response time and verified info. Micheline MAHARAJ Will place referral for cellulitis w/u, pain assessment, vs more interventions needed for drainage. Home health Aid is with this member at this time. ..................... ..................... ..................... ..................... ..................... ..................... ............... Research Animal Attendant Note From Jacques Nix: Dispatched to the [...] 911 called on behalf of the Pt. [facility] ALS unit transported Pt to [facility] ED per her request. All times are approx. ..................... ..................... ..................... ..................... ..................... ..................... ............... [facility] Consulted: Víctor Vasquez ..................... ..................... ..................... ..................... ..................... ..................... ............... Disposition: Fulfilled Rogelio Vasquez MD [address] [facility],[address], [place], [address], [employer] 04/17/2024 20:43:33 04/21/2024 text/html [facility] Nurse Triage Notes (Jaylen Escobar): Reason For Request: drank too much caffeine /feeling jittery Patient Reports: Diaphoretic/Sweating Denies: History of Heart Attack, in the [...] - :49 Allergies Reviewed at 04/21/2024 - 17:49 Comments: Rail Splitter verified the patient's name//address and phone number. [...] emergency treatment if needed -Allison Escobar RN ..................... ..................... ..................... ..................... ..................... ..................... ............... Research Animal Attendant Note From Jacques Nix: Dispatched to the [...] pupils PERRL, lungs CTA, Afebrile, +CMSx4, -edema/swelling. C consulted. ALL times are approx. ..................... ..................... ..................... ..................... ..................... ..................... ............... [facility] Consulted: Marita Ramos ..................... ..................... ..................... ..................... ..................... ..................... ............... Disposition: Jamie Marita Ramos MD [address] [facility],[address], [place], [address], [employer] 04/22/2024 08:15:29 05/03/2024 text/html [facility] Nurse Triage Notes (Alberto [...] Disorder, Rheumatoid ArthritisPMH Reviewed at 05/03/2024 - 16:54Allergies Reviewed at 05/03/2024 - :54Comments: Rail Splitter verified the Pt.'s name//address and phone number. [...] taking Tylenol and Motrin with some relief. ..................... ..................... ..................... ..................... ..................... ..................... ............... Research Animal Attendant Note From Cheyanne Wilson: [facility] makes pt contact. She is laying supine [...] in order to get around. Pt says [facility] visited her a week ago for the same thing and it has continued to get worse. She has no other complaints at this time. [facility] obtains vital signs and pt is assessed. [...] tests performed in comparison to the L. [facility] contacts [facility] and discusses the above. [facility] orders 30mg ketorolac IM for pt. [facility] administers 30mg ketorolac in the R deltoid and covers w/ an adhesive bandage. [facility] recommends pt continue w/ ice and Tylenol for pain and continue w/ elevation and limiting activity on the knee until she has her appt on Sunday. Pt is also encouraged to call back if necessary. [facility] is clear. Report completed by ROULA Wilson [id number]. [facility] Medication Orders: ketorolac 30 mg/mL injection solution: Administered ..................... ..................... ..................... ..................... ..................... ..................... ............... [facility] Consulted: Emely Dhillon ..................... ..................... ..................... ..................... ..................... ..................... ............... Disposition: Fulfilled EMELY DHILLON MD [address] [facility],[address], [place], [address], [email or web address] 05/03/2024 19:14:21 OBGyn Episode No OBEpisode recorded.
--- OUTSIDE RECORDS SUMMARY | 2024-05-06 16:02 | XMS_ITS | Continuity of Care Document ---
Author Organization [employer] Address [address] [place] [address] Care Team Providers Care Brusher Warp Name Role Phone HIM CCA OTHER PONCHO BAHENA Primary Care Provider Assessment Encounter Date Assessment Date Assessment LastModified by Organization Details LastModified Time 04/13/2024 04/13/2024 I have reviewed and agree with the assessment and plan as documented by the director of strategic sourcing. I provided real time medical direction for this encounter and was immediately available to provide additional phone based assistance as needed. History as noted by director of strategic sourcing. Pt with history of COPD, ex smoker, [...] rapid strep group A, throat [facility] [address] [place] [address], [phone], 12:55:09 rapid SARS CoV 2 Ag, QL IA, respiratory specimen 2024 025 [facility] [address] [place] [address], [phone], 12:55:09 rapid flu (A+B) 2024 025 [facility] [address] [place] [address], [phone], 12:55:09 Referral None recorded. Procedures None recorded. [...] medicatio n diarrhea Not available low 04/30/2022 28653 2 RxNorm GAURAV DHILLON MD [address] [place] [address],[address], [place], [address], [facility] 4 09:58:09 4312 Bactrim medicatio n Not available Not available Not available 02/20/2023 26907 9 RxNorm Not Available [facility] - production 03:41:14 4313 sulfameth oxazole / trimethop rim medicatio n Not available Not available Not available 02/20/2023 22540 RxNorm Marita Ramos MD [address] [place] [address],[address], [place], [address], [facility] 14:13:42 4314 doxycycli ne Not available Not available Not available Not available 02/20/2023 3640 RxNorm Not Available [facility] - production 03:41:14 5895 Seroquel medicatio n Not available Not available Not available 09/30/2023 64330 RxNorm GAURAV DHILLON MD [address] [place] [address],[address], [place], [address], [facility] 4 18:08:17 5896 fluoxetin e medicatio n Not available Not available Not available 09/30/2023 4493 RxNorm GAURAV DHILLON MD [address] [place] [address],[address], [place], [address], [facility] 4 18:08:31 5897 nabumeton e medicatio n Not available Not available Not available 09/30/2023 73349 RxNorm GAURAV DHILLON MD [address] [place] [address],[address], [place], [address], [facility] 4 18:08:46 5898 propranol ol medicatio n Not available Not available Not available 09/30/2023 8787 RxNorm GAURAV DHILLON MD [address] [place] [address],[address], [place], [address], [facility] 4 18:09:03 7995 Product containin g penicilli n (product) medicatio n Not available Not available Not available 12/11/2023 91292 8001 SNOMED Not Available [facility] - production [...] fluticasone propionate 50 mcg/actuatio n nasal spray,suspen zeo [place] 1 spray every day by intranasal route. [...] Details Last Updated DateTime 5 85 /min 66765.1 52 g 18 /min 98.4 [degF] 94 [...] SNOMED-CT Code Diagnosis ICD10 Code Diagnosis Note [id number] Rogelio Vasquez MD Main - [address] [address] 03/16/2024 10:41:49 03/18/2024 17:02:49 Viral upper respiratory tract infection 372915910 J06.9 Patient 4 days into prednisone course. Vitals stable. Taking inhalers at home though mild wheezing noted by director of strategic sourcing and administer ed duoneb with good effect. Declined COVID/flu testing as out of window for treatment. Discussed red flag signs for which to seek higher level of care. [id number] Rangel Robledo MD Main - [address] [address] 03/27/2024 11:44:09 03/27/2024 14:25:14 Sore throat 186395661 J02.9 11145 Ninoska Juarez MD Main - [address] [address] 03/29/2024 17:58:44 03/30/2024 15:29:24 Pharyngitis 495364009 J02.9 87116 Rangel Robledo MD Main - [facility] [address] [place] [address] 04/13/2024 12:47:37 04/14/2024 09:49:23 Viral upper respiratory tract infection 442507164 J06.9 Acute pharyngitis 095367 003 J02.9 Health Concerns Section Related Observation LastModified by Organization Detai ls LastModified Time None Recorded Concern Status LastModified by Organization Details LastModified Time None Recorded Payers Encounter Date Sequence Insurance Name Policy Number Policy Valdez Covered Member ID Valdez Member ID Guarantor Name 04/13/2024 1 [facility] - DOS ON OR AFTER 2022 - DUAL ELIGIBLE - SNF OPTIONS AND ONE CARE (MEDICARE REPLACEMENT/ADV ANTAGE - HMO) Elizabeth Huang [id number] Elizabeth Huang Notes Date Note Type Note Provider Name and Address Organization Details Recorded Time 04/13/2024 text/html This was a super vised home visit with director of strategic sourcing Cheyanne Wilson. CRC Nurse Triage Notes (Alberto [...] - 11:34Allergies Reviewed at 04/13/2024 - 11:34Comments: Veterinary Medicine Teacher verified the Pt.'s name//address and phone number. [...] needed - [facility] same. ER treatment declined Methodologist Organization Information for Cheyanne Wilsonsalazar Legal Name: [employer]Address: [address] [place] [address], Medical Director: Burton Kruse [facility] No.: [id number] Methodologist POC Test Results from Cheyanne Wilson - MING Rapid strep test (12:41:36)Strep: -Attachments uploaded as part of this test result can be found under Documents section. Rapid COVID antigen (12:42:22)COVID: -Attachments uploaded as part of this test result can be found under Documents section. Rapid influenza antigen (12:42:23)Flu: - ..................... ..................... ..................... ..................... ..................... ..................... ............... Methodologist Note From Cheyanne Wilson: [facility] makes pt contact. She is walking around [...] is denying fevers/chills, n/v/d, cp, and sob. [facility] obtains vistal signs and pt is assessed. Lungs present w/ expiratory wheezes. Throat appears to have some irritation, but no drainage, swelling, or pustules are noted. Neck is supple, trachea is midline w/ no swelling noted. Auscultation of the throat is clear. Pt is swabbed for COVID/flu, and strep A and all tests are negative. [facility] contacts [facility] and discusses the above. [facility] recommends pt speak w/ her PCP about seeing an ENT for a scope of her vocal cords. [facility] will send a note to pt's primary care team w/ the recommendation as well and recommends pt continue w/ her current course of care. Pt is amendable to the plan. [facility] is clear. Report completed by ROULA Wilson [id number]. [facility] Lab Orders: rapid strep group A, throat: Performed rapid SARS CoV 2 Ag, QL IA, respiratory specimen: Performed rapid flu (A+B): Performed ..................... ..................... ..................... ..................... ..................... ..................... ............... [facility] Consulted: Rangel Robledo ..................... ..................... ..................... ..................... ..................... ..................... ............... Disposition: Fulfilled Rangel Robledo MD [address] [facility],[address], [place], [address], FAHAD GALEANA 04/13/2024 15:27:33 OBGyn Episode No OBEpisode recorded.
--- OUTSIDE RECORDS SUMMARY | 2024-05-06 16:02 | XMS_ITS | Continuity of Care Document ---
Author Organization [place] [facility], [facility] Address [address] [place] [address] Assessment Encounter Date Assessment Date Assessment LastModified [...] Appointments Establish ed 15 2024 11:00A M FARHEEN ARMSTRONG PA-C Not available Not available Not available Lab None recorded. Referral speech therapy referral 2024 025 [facility], [address] [place] [address] [place], [address], 04/29/2024 10:52:29 Procedures None recorded. Surgeries None recorded. Imaging None recorded. Medication Orders None recorded. Patient TargetsNo targets recorded. Patient InstructionsNo instructions recorded. Reason for Referral Referring Physician: Farheen Whitaker ot, Otolaryngology, Encounter Date: 04/25/2024 Problems Name Problem SNOMED Code Status Onset Date Resolution Date Notes Provider Name and Address Organization Details Recorded Time Bilateral tinnitus 37850742401 02 Active 2015 Tinnitus, bilateral ; Note: Date Diagnosed : 06/22/2015 2:10 PM (H93.13) Not Available [facility] 4 02:46:51 Otitis externa of bilateral ears 39804619047 39596 Active 2015 Other otitis externa, bilateral ; Note: Date Diagnosed : 05/12/2015 12:59 AM (H60.8X3) Not Available [facility] 4 02:46:49 Dizziness and giddiness 646080899 Active 2015 Dizziness and giddiness ; Note: Date Diagnosed : 06/22/2015 2:10 PM (R42) Not Available [facility] 4 02:46:50 Arthralgi a of temporoma ndibular joint 92383367 Active 2015 Arthralgi a of temporoma ndibular joint; Note: Date Diagnosed : 05/12/2015 12:58 AM (M26.62) Not Available [facility] 4 02:46:52 Impacted cerumen in right ear 31075117518 78345 Active 2017 Impacted cerumen, right ear; Note: Date Diagnosed : 03/06/2017 4:03 PM (H61.21) Not Available [facility] 4 02:46:52 Sensorine ural hearing loss of bilateral ears 747119327 Active 2015 Sensorine ural hearing loss, bilateral ; Note: Date Diagnosed : 06/22/2015 2:10 PM (H90.3) Not Available [facility] 4 02:46:54 Impacted cerumen of bilateral ears 35711586664 54148 Active 2016 Impacted cerumen, bilateral ; Note: Date Diagnosed : 08/08/2016 2:34 PM (H61.23) Not Available [facility] 4 02:46:56 Diffuse otitis externa 40183234 Active 2018 Diffuse otitis externa, right ear; Note: Date Diagnosed : 02/25/2018 4:53 PM (H60.311) Not Available [facility] 4 02:46:56 Nasal congestio n 10346971 Active 2023 JUAN PABLO KABA MD [address] [place] [address], [place], [address] , [facility] - [facility] 4 21:32:56 Foreign body in right ear 86049188453 744254 Active 2023 JUAN PABLO KABA MD [address] [facility], [place], [address] , [facility] - [facility] 4 21:33:01 Chronic hoarsenes s 70795757854 05 Active 2024 FARHEEN ARMSTRONG PA-C [address], [place], [address] , [facility] - [facility] 5 11:50:32 Gastroeso phageal reflux disease without esophagit is 974851541 Active 2024 FARHEEN ARMSTRONG PA-C [address], [place], [address] , [facility] - [facility] 5 12:33:50 Problem Notes None recorded. Procedures Surgical History Date Name Laterality Status Provider Name and Address Organization Details Recorded Time 5 FOL_DP completed FARHEEN ARMSTRONG PA-C [address],[place] [address], [place], [address], [facility] - [facility] 04/25/2024 12:31:13 4 Removal of foreign body from ear canal completed JUAN PABLO KABA MD [address],[place] [address], [place], [address], [facility] - [facility] 10/07/2023 21:35:30 Imaging Results None recorded. Procedure Notes None recorded. Medical Equipment None Reported. Medications Name Sig Start Date Stop Date Status Note LastModified by Organization Details LastModified Time multivita min tablet active Not Available Not Available Not Available amoxicill in 500 mg capsule active Not Available Not Available Not Available mineral oil oral 2015 active Medicati on ID: 431428 D uration Value: 23 Brand Name: mineral [...] mg tablet 2015 active Medicati on ID: 367619 D uration Value: 5 Brand Name: naproxen [...] mg tablet 2015 active Medicati on ID: 315440 D uration Value: 30 Brand Name: ranitidi [...] Not Available sertralin e 100 mg tablet 01/14 /2019 completed Medicati on ID: 609399 D uration Value: 30 Brand Name: sertrali ne Send Method: E-Prescr ibed Sub s Allowed: subs OK Medic ationGen ericName : sertrali ne Not Available Not Available Not Available prednison e 5 mg tablet active Not Available Not Available Not Available quetiapin e 200 mg tablet 02/25 completed Medicati on ID: 135760 D uration Value: 30 Brand Name: quetiapi [...] mg tablet 03/07 completed Medicati on ID: 126013 D uration Value: 10 Prescri bed By [...] 2 hr 2015 active Medicati on ID: 960122 D uration Value: 30 Brand Name: carbamaz [...] mg capsule 2015 active Medicati on ID: 889009 D uration Value: 12 Brand Name: progeste [...] mg capsule 02/25 completed Medicati on ID: 956908 D uration Value: 30 Brand Name: gabapent [...] mg tablet 2015 active Medicati on ID: 475697 D uration Value: 30 Brand Name: diazepam Send Method: E-Prescr ibed Sub s Allowed: subs OK Medic ationGen ericName : diazepam Not Available Not Available Not Available amoxicill in 875 mg-potass ium clavulana te 125 mg tablet 05/29 completed Medicati on ID: [id number] D uration Value: 20 Reason: () Brand [...] ous solution 2015 active Medicati on ID: 917543 D uration Value: 28 Brand Name: Xolair [...] n capsules 2015 active Medicati on ID: 816925 D uration Value: 30 Brand Name: Spiriva [...] mg capsule 2015 active Medicati on ID: [id number] D uration Value: 20 Brand Name: butalbit [...] Updated DateTime 04/25/2024 154.94 cm 32.7 kg/m2 57971.48 g Saima Morejon [place] - [facility] 04/25/2024 11:00:15 Social History None recorded. Functional [...] SNOMED-CT Code Diagnosis ICD10 Code Diagnosis Note [id number] SULEMAN SCHULTZ MD [facility] [address] [address] 04/25/2024 10:31:44 04/25/2024 11:53:14 Chronic hoarseness 8905424985 105 R49.0 Gastroesop hageal reflux disease without esophagitis 268535847 K21.9 Health Concerns Section Related Observation LastModified by Organization Detai ls LastModified Time None Recorded Concern Status LastModified by Organization Details LastModified Time None Recorded Payers Encounter Date Sequence Insurance Name Policy Number Policy Valdez Covered Member ID Valdez Member ID Guarantor Name 04/25/2024 1 [facility] - DOS ON OR AFTER 2022 - MEDICARE ADVANTAGE [place] (MEDICARE REPLACEMENT/ADV ANTAGE - PPO) Elizabeth Huang [id number] Elizabeth Huang Notes Date Note Type Note Provider Name and Address Organization Details Recorded Time 04/25/2024 text/html 63 year old female presents reporting three weeks of laryngitis. She [...] that she is prediabetic. SULEMAN SCHULTZ MD [address] [place] [address], [address], [facility] - [facility] 04/25/2024 16:52:12 OBGyn Episode No OBEpisode recorded.
== END 2024-05-06 13:31 | disposition home or self-care (01) ==
LOC: HO.PMC 13:13
PROVIDERS: PCP Family Medicine; Visit Provider Nurse Practitioner Family
DX: M25.512 Pain in left shoulder (principal); Z98.890 Other specified postprocedural states
CPT/HCPCS: 99213; G2211

== ENCOUNTER → 2024-05-06 13:12 | Outpatient (BNVA) | payer OTHER, SELFPAY | PROVIDERS: PCP Family Medicine; Visit Provider Nurse Practitioner Family | DX: M25.512 Pain in left shoulder (principal); Z98.890 Other specified postprocedural states | CPT/HCPCS: 99212 ==

== ENCOUNTER 2024-05-29 06:10 | Outpatient (REF) | payer OTHER, SELFPAY ==
--- OUTSIDE RECORDS SUMMARY | 2024-05-29 06:14 | XMS_ITS | Encounter Summary ---
Author Organization [facility] Address [address] [place] [address] Care Team Providers Care Tavern Car Attendant Name Role Phone Clare Wilson Primary Care Provider [phone] Reason for Visit * Auth/Cert (Routine) Specialty Diagnoses / Procedures Referred By Contshanna t Referred To Contact Diagnoses Chronic left shoulder pain Chronic left shoulder pain [M25.512, G89.29] Procedures NC SHLDR ARTHROSCOP,SURG,W/ROTAT CUFF REPR NC SHLDR ARTHROSCOP,EXTEN DEBRIDE NC REPAIR BICEPS LONG TENDON ARTHROSCOPY, SHOULDER, SURGICAL;?? WITH ROTATOR CUFF REPAIR ARTHROSCOPY, SHOULDER, SURGICAL;?? DEBRIDEMENT, EXTENSIVE TENODESIS OF LONG TENDON OF BICEPS Luis Minor MD [address] [place] [address] Phone: tel: fax: Referral ID Status Reason Start Date Expiration Date Visits Re quested Visits Authorized [id number] 10/03/2023 99 99 Encounter Details Date Type [...] Care Team (Late st Contact Info) Description 08/08/2024 1:45 PM EDT Procedure visit [facility] [address] [place] [address] Sandy Snyder DO [address] [place] [address] 10/02/2024 1:45 PM EDT Follow-Up [address] [address] Luis Minor MD [address] [place] [address] documented as of this encounter Visit Diagnoses Diagnosis Shoulder pain- Primary Pain in joint, shoulder region documented in this encounter Admitting Diagnoses Diagnosis Shoulder pain Pain in joint, shoulder region documented in this encounter Care Teams Tavern Car Attendant Relationship Specialty Start Date End Date Clare Wilson [address] [place] [phone] PCP - General Family Medicine 09/10/23 documented as of this encounter
--- OUTSIDE RECORDS SUMMARY | 2024-05-29 06:14 | XMS_ITS | Clinical Summary ---
Author Organization [facility] Address [address] [place] [address] Care Team Providers Care Health Information Coder Name Role Phone Lexa Wilsonsun Sharpe Primary Care Provider [phone] Allergies Active Allergy Reactions Criticality Noted Date [...] mellitus 12/05/2021 Hearing loss 12/05/2021 Overview (12/05/2021): [facility] audiology History of total hysterectom y with bilateral salpingo-oophorectomy (BSO) 12/05/2021 Lower urinary tract infectious disease 2 Menopausal syndrome 12/05/2021 Obesity 12/05/2021 Osteoarthritis 12/05/2021 Pelvic pain in female 12/05/2021 Pernicious anemia 12/05/2021 Posttraumatic stress disorder 12/05/2021 Respiratory abnormalities 12/05/2021 Shoulder pain 12/05/2021 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 Dr [facility] Asthma 06/16/2013 Overview (12/05/2021): Asthma Asthma Last Assessment & Plan: No acute symptoms, continue outpatient medications Seasonal allergic rhinitis 06/16/2013 Overview (12/05/2021): Allergic rhinitis Encounters Date Type Department Care Team Description 04/03/2024 2:00 [place] [address] Luis Minor MD Adhesive capsulitis of left shoulder (Primary Dx) 03/20/2024 [place] [address] Telephone Intake, Staff PAC Appt Request - Established_Iván 03/05/2024 [place] [address] Telephone Intake, Staff PAC Dr. Minor_ Left shoulder rotatorcuff_ PostOP from Last 3 Months Family History Medical [...] Description 08/08/2024 1:45 PM EDT Procedure visit [address] [address] Sandy Snyder DO [address] [place] [address] 10/02/2024 1:45 PM EDT Follow-Up [address] [address] Luis Minor MD [address] [place] [address] Health Maintenance Due Date Last Done Comments Cologuard 1962 Colon Cancer Screening 1962 Colonoscopy 1962 FOBT / Fit Test 1962 HIV Screening 1962 Hepatitis C Screening 1962 Sigmoidoscopy 1962 Ophthalmology Exam 1972 Urine Microalbumin 1972 RSV Vaccine (60+ years old a nd patients) (1 - Risk 60-74 years 1-dose series) 2022 COVID-19 Vaccine (6 - 2023-2 5 season) 2023 10/22/2021, 06/11/2021, 01/02/2021, Additional history exists Alcohol/Substance Use Screening 02/13/2024 Depression Screening and Follow-Up 02/13/2024 Social Drivers of Health Nia ual [...] history exists Medical Devices Implanted Type Area Polymer Chemist Device Identifier Shelf Expiration Date Model / Serial / Lot [place] Suture Double Loaded With White/Blue White/Black Suturetape [employer] Rc - [id number] Implanted:Qty: 1 on 04/02/2020 by Luis Minor MD at [facility] Implant Right: Shoulder [employer] 01/11/2023 [place]-[id number] / / [id number] Insurance [facility] [place] [id number] Advance Directives * Full Code (Latest Code Status on File) Date Activated Date Inactivated Comments 04/02/2020 10:29 AM 04/02/2020 6:36 PM Healthcare Agents on File Name Relationship Healthcare Agent Relationshi p Communication Pilar Olvera Sister Next of Kin [phone] (M obronald) Care Teams Health Information Coder Relationship Specialty Start Date End Date Clare Wilson [address] [place] [phone] PCP - General Family Medicine 09/10/23
--- OUTSIDE RECORDS SUMMARY | 2024-05-29 06:14 | XMS_ITS | Referral Summary ---
Author Organization [facility] Address [address] [place] [address] Care Team Providers Care Casino Floor Runner Name Role Phone SteveClare Annemarie Primary Care Provider [phone] Encounters Date Type Department Care Team Description 04/03/2024 2:00 [place] [address] Luis Minor MD Adhesive capsulitis of left shoulder (Primary Dx) 03/20/2024 [place] [address] Telephone Intake, Staff PAC Appt Request - Established_Iván 03/05/2024 Telephone [place] [phone] Telephone Intake, Staff PAC Dr. Minor_ Left shoulder rotatorcuff_ PostOP from Last 3 Months Allergies Active Allergy [...] (PATANOL) 0.1 % ophthalmic solution as needed. 03/27/202 0 Active XOLAIR 150 mg injection Inject [...] 100 mgoral2 times daily, Reported on 01/07/2024 Lars Autoinjector 80 mg/mL auto-injector Inject 80 mg under the skin. Active aspirin 81 mg EC tablet Take 1 tablet (81 mg total) by mouth 2 (two) times a day. 28 tablet 4 Active Active Problems Problem Noted Date Diagnosed Date Chronic obstructive pulmonary disease 12/05/2021 Calculus of kidney 12/05/2021 Abdominal pain 12/05/2021 Knee pain 12/05/2021 Diabetes mellitus 12/05/2021 Hearing loss 12/05/2021 Overview (12/05/2021): [facility] audiology History of total hysterectom y with bilateral salpingo-oophorectomy (BSO) 12/05/2021 Lower urinary tract infectious disease Menopausal syndrome 12/05/2021 Obesity 12/05/2021 Osteoarthritis 12/05/2021 Pelvic pain in female 12/05/2021 Pernicious anemia 12/05/2021 Posttraumatic stress disorder 12/05/2021 Respiratory abnormalities 12/05/2021 Shoulder pain 12/05/2021 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 Vertigo 12/05/2021 Trigger finger of thumb 11/10/2021 Overview (11/10/2021): Added automatically from request for surgery [id number] Trigger index finger of left hand 11/10/2021 Overview (11/10/2021): Added automatically from request for surgery [id number] COVID-19 virus infection 11/25/2020 Overview (12/05/2021): Last [...] Description 08/08/2024 1:45 PM EDT Procedure visit [address] [address] Sandy Snyder DO [address] [place] [address] 10/02/2024 1:45 PM EDT Follow-Up [address] [address] Luis Minor MD [address] [place] [address] Medical Devices Implanted Type Area Nougat Cutter Machine Device Identifier Shelf Expiration Date Model / Serial / Lot [place] Suture Double Loaded With White/Blue White/Black Suturetape [employer] Rc - [id number] Implanted:Qty: 1 on 04/02/2020 by Luis Minor MD at [facility] Implant Right: Shoulder [employer] 01/11/2023 AR-[id number] / / [id number] Insurance [facility] [place] [id number] Advance Directives * Full Code (Latest Code Status on File) Date Activated Date Inactivated Comments 04/02/2020 10:29 AM 04/02/2020 6:36 PM Healthcare Agents on File Name Relationship Healthcare Agent [facility] p Communication Pilar Olvera Sister Next of Kin [phone] (Kamala griffin) Care Teams Casino Floor Runner Relationship Specialty Start Date End Date Clare Wilson [address] [place] [phone] PCP - General Family Medicine 09/10/23
--- OUTSIDE RECORDS SUMMARY | 2024-05-29 06:14 | XMS_ITS | Data Portability ---
Author Organization [place] - [facility], Allergy Address [address] [place] [phone] Assessment Encounter Date Assessment Date Assessment LastModified [...] recorded. Referral speech therapy referral 2024 025 [facility], [address] [place] [address] [place], [address], 04/29/2024 10:52:29 Procedures None recorded. Surgeries None [...] Address Organization Details Recorded Time Bilateral tinnitus [id number] 02 Active 2015 Tinnitus, bilateral ; Note: Date Diagnosed : 06/22/2015 2:10 PM (H93.13) Not Available [facility] 4 02:46:51 Otitis externa of bilateral ears 03755016013 86348 Active 2015 Other otitis externa, bilateral ; Note: Date Diagnosed : 05/12/2015 12:59 AM (H60.8X3) Not Available [facility] 4 02:46:49 Dizziness and giddiness 665306888 Active 2015 Dizziness and giddiness ; Note: Date Diagnosed : 06/22/2015 2:10 PM (R42) Not Available [facility] 4 02:46:50 Arthralgi a of temporoma ndibular joint 74905495 Active 2015 Arthralgi a of temporoma ndibular joint; Note: Date Diagnosed : 05/12/2015 12:58 AM (M26.62) Not Available [facility] 4 02:46:52 Impacted cerumen in right ear 21485931856 61793 Active 2017 Impacted cerumen, right ear; Note: Date Diagnosed : 03/06/2017 4:03 PM (H61.21) Not Available [facility] 4 02:46:52 Sensorine ural hearing loss of bilateral ears 652762494 Active 2015 Sensorine ural hearing loss, bilateral ; Note: Date Diagnosed : 06/22/2015 2:10 PM (H90.3) Not Available [facility] 4 02:46:54 Impacted cerumen of bilateral ears 72826652420 16534 Active 2016 Impacted cerumen, bilateral ; Note: Date Diagnosed : 08/08/2016 2:34 PM (H61.23) Not Available [facility] 4 02:46:56 Diffuse otitis externa 99470172 Active 2018 Diffuse otitis externa, right ear; Note: Date Diagnosed : 02/25/2018 4:53 PM (H60.311) Not Available [facility] 4 02:46:56 Nasal congestio n 65931151 Active 2023 JUAN PABLO KABA MD [address] [facility],[place] [address], [place], [address] , [place] - [facility] 4 21:32:56 Foreign body in right ear 36755003909 133835 Active 2023 JUAN PABLO KABA MD [address] [facility],[place] [address], [place], [address] , [place] - [facility] 4 21:33:01 Chronic hoarsenes s 85645760279 05 Active 2024 RICKIE ARMSTRONG PA-C [address] [facility],[place] [address], [place], [address] , [place] - [facility] 5 11:50:32 Gastroeso phageal reflux disease without esophagit is 147152516 Active 2024 RICKIE ARMSTRONG PA-C [address] [facility], [place], [address] , [place] - [facility] 5 12:33:50 Problem Notes None recorded. Procedures Surgical History Date Name Laterality Status Provider Name and Address Organization Details Recorded Time 5 FOL_DP completed RICKIE ARMSTRONG PA-C [address] [facility], [place], [address], [facility] - [facility] 04/25/2024 12:31:13 4 Removal of foreign body from ear canal completed JUAN PABLO KABA MD [address] [facility], [place], [address], [facility] - [facility] 10/07/2023 21:35:30 Imaging Results Imaging Date [...] oil oral 2015 active Medicati on ID: [id number] D uration Value: 23 Brand Name: mineral [...] mg tablet 2015 active Medicati on ID: [id number] D uration Value: 5 Brand Name: naproxen [...] mg tablet 2015 active Medicati on ID: [id number] D uration Value: 30 Brand Name: ranitidi [...] mg tablet 02/25 completed Medicati on ID: [id number] D uration Value: 30 Brand Name: sertrali ne Send Method: E-Prescr ibed Sub s Allowed: subs OK Medic ationGen ericName : sertrali ne Not Available Not Available Not Available prednison e 5 mg tablet active Not Available Not Available Not Available quetiapin e 200 mg tablet 02/25 completed Medicati on ID: [id number] D uration Value: 30 Brand Name: quetiajc [...] mg tablet 03/07 completed Medicati on ID: [id number] D uration Value: 10 Prescri bed By Name: CELIO Herrera nd Name: ciproflo xacin HCl Send Method: E-Prescr ibed Sub s Allowed: subs OK Speci al Instruct ion: 1 po BID for [facility]flo x[facility] HCl Not Available [...] 2 hr 2015 active Medicati on ID: [id number] D uration Value: 30 Brand Name: carbamaz [...] mg capsule 2015 active Medicati on ID: 900291 D uration Value: 12 Brand Name: progeste [...] mg capsule 02/25 completed Medicati on ID: [id number] D uration Value: 30 Brand Name: gabapent [...] mg tablet 2015 active Medicati on ID: [id number] D uration Value: 30 Brand Name: diazepam Send Method: E-Prescr ibed Sub s Allowed: subs OK Medic ationGen ericName : diazepam Not Available Not Available Not Available amoxicill in 875 mg-potass ium clavulana te 125 mg tablet 05/29 completed Medicati on ID: [id number] D uration Value: 20 Reason: () Brand [...] ous solution 2015 active Medicati on ID: [id number] D uration Value: 28 Brand Name: Xolair [...] n capsules 2015 active Medicati on ID: 173424 D uration Value: 30 Brand Name: Spiriva [...] mg capsule 2015 active Medicati on ID: [id number] D uration Value: 20 Brand Name: butalbit [...] Updated DateTime 04/25/2024 154.94 cm 32.7 kg/m2 66514.48 g Saima Morejon [place] - [facility] 04/25/2024 11:00:15 Social History None recorded. [...] SNOMED-CT Code Diagnosis ICD10 Code Diagnosis Note [id number] JUAN PABLO KABA MD [facility] on [address] [place] [address] 10/02/2023 09:52:16 10/02/2023 12:00:59 Foreign body in right ear [id number] 5600051 T16.1XXA Nasal congestion 0520155 0 R09.81 63-year-ol d female presents today [...] her hearing. She may follow-up as needed. [id number] SULEMAN SCHULTZ MD [facility] [address] [address] 04/25/2024 10:31:44 04/25/2024 11:53:14 Chronic hoarseness 7293027369 105 R49.0 Gastroesop hageal reflux disease without esophagitis 811413108 K21.9 Health Concerns Section Related Observation LastModified by Organization Detai ls LastModified Time None Recorded Concern Status LastModified by Organization Details LastModified Time None Recorded Advance Directives Directive None Recorded Payers Encounter Date Sequence Insurance Name Policy Number Policy Valdez Covered Member ID Valdez Member ID Guarantor Name 10/02/2023 1 [facility] - DOS ON OR AFTER 2022 - MEDICARE [place]/ADV ANTAGE - PPO) Elizabeth Huang [id number] Elizabeth Huang 04/25/2024 1 [facility] - DOS ON OR AFTER 2022 - [place]/ADV ANTAGE - PPO) Elizabeth Huang [id number] Elizabeth Huang Notes Date Note Type Note [...] No epistaxis. JUAN PABLO KABA MD [address] [facility],[address], [address], [place] - [facility] 10/07/2023 21:36:00 04/25/2024 text/html 63 year old [...] that she is prediabetic. SULEMAN SCHULTZ MD [address] [place] [address],[address], [address], [place] - [facility] 04/25/2024 16:52:12 OBGyn Episode No OBEpisode recorded.
--- OUTSIDE RECORDS SUMMARY | 2024-05-29 06:14 | XMS_ITS | Encounter Summary ---
Author Organization [facility] Address [address] [place] [address] Care Team Providers Care Shirt Marker Name Role Phone Clare Wilson Annemarie Primary Care Provider [phone] Encounter Details Date Type Department Care Team (Late Contact Info) Description 01/16/2024 Orders Only [facility] Surgery [address] [place], [place] [phone] Jesus Gillis MD [address] [place] [address] Social History Tobacco Use Types Packs/Day Years [...] Department Care Team (Late Contact Info) Description 08/08/2024 1:45 PM EDT Procedure visit [facility] Medicine [address] [place], [place] [phone] Sandy Snyder DO [address] [place] [address] 10/02/2024 1:45 PM EDT Follow-Up [facility] Sports Medicine [address] [place] [phone] Luis Minor MD [address] [place] [phone] documented as of this encounter Visit Diagnoses Not on filedocumented in this encounter Care Teams Shirt Marker Relationship Specialty Start Date End Date Clare Wilson [address] [place] [phone] PCP - General Family Medicine 09/10/23 documented as of this encounter
--- OUTSIDE RECORDS SUMMARY | 2024-05-29 06:14 | XMS_ITS | Data Portability ---
Author Organization [place] - [facility] Address [address] [place] [id number] Assessment Encounter Date Assessment Date Assessment LastModified [...] after care of this patient according to [facility]'s infection prevention protocols. Time On Scene with Patient: 00:41:51 Not available 11/01/2019 16:50:03 11/23/2019 11/23/2019 Overview/History : 59[facility], DM, HTN is seen today [...] after care of this patient [facility]. Time On Scene with Patient: 00:18:09 [email or web address] Not available 11/23/2019 11:49:44 Plan of Treatment Reminders Order Date Submit Date Provider Last Modified By Organization Details Last Modified Time Details Appointments None recorded. Lab 6+ iStat 2019 020 zak [facility], [address] [place], [address], 0 21:16:36 creatinin e, blood 2019 020 zak [facility] - [facility], [address] [place], [address], 0 21:16:35 Referral None recorded. Procedures None recorded. Surgeries None recorded. Imaging XR, lumbosacr al spine - No COIVD Sxs or exposure 2019 [facility] [address] , [place], [address], 0 17:40:23 Medication Orders naproxen 500 mg tablet 2019 [email or web address] [id number], [address] [place] [address], [address], 0 09:58:29 Lidoderm 5 % topical patch 2019 INTERFACE [id number], [address] [place] [address], [address], 0 15:29:37 methocarb bhavani 500 mg tablet 2019 INTERFACE [facility], [address] [place] [address], [address], 0 15:29:37 ketorolac 30 mg/mL (1 mL) injection solution 2019 020 [email or web address] [facility], [address] [place] [address], [address], 0 15:30:29 prednison e 10 mg tablet 2019 020 [email or web address] Not available 0 18:42:27 lidocaine 4 % topical cream 2019 INTERFACE [facility], [address] [place] [address], [address], 0 16:25:56 prednison e 20 mg tablet 2019 INTERFACE [facility], [address] [place] [address], [address], 0 16:26:02 sodium chloride 0.9 % intraveno us solution 2019 [email or web address] [facility], [address] [place] [address], [address], 0 16:13:18 Zofran 2 mg/mL intraveno us solution 2019 020 [email or web address] [id number], [address] [place], [address], 0 21:16:37 Patient TargetsNo targets recorded. Patient Instructions Encounter Date Encounter Id Patient Instructions Last Modified By Organization Details Last Modified Time 08/19/[id number] Thank you for yo ur visit with [facility] today. We cannot always find the exact [...] in your condition between 8am-10pm, please call [facility] at [phone] to help navigate your care. Acute Nausea [...] disease, do not use Tylenol. Ask your LITHOGRAPH PRESS OPERATOR how to address fever if you are concerned about Tylenol use. 3) Anti-diarrheal medicines: These are available doip-mwb-ciwkhnf, but in some cases are not recommended and can even worsen some cases of intestinal problems. Ask your LITHOGRAPH PRESS OPERATOR if you should use them. In children [...] with one of the PCP suggestions from [facility]. SEEK CARE IMMEDIATELY IF: 1) You [...] in your condition between 8am-10pm, please call [facility] at [phone] to help navigate your care. [email or web address] Not available 08/19/2019 20:45:42 08/31/2019 [id number] Thank you for yo ur visit with [facility] today. We cannot always find the exact [...] in your condition between 8am-10pm, please call [facility] at [phone] to help navigate your care. Thank you for your visit with [facility] today. You do not appear to have [...] in your condition between 8am-10pm, please call [facility] at [phone] to help navigate your care. [email or web address] Not available 08/31/2019 16:24:13 11/01/2019 [id number] Thank you for yo ur visit with [facility] today. It appears you have lower back [...] symtpoms worsen then please follow up with [facility]. Follow up with your primary care provider [...] condition between 8am-10pm, please call [facility] at [phone] to help navigate your care. Not available 11/01/2019 15:29:26 11/23/2019 [id number] STOP TAKING THE IBUPROFEN BEGIN TAKING THE [...] PAIN [facility]. We cannot always find the exact [...] condition between 8am-10pm, please call [facility] at [phone] to help navigate your care. Not available 11/23/2019 09:58:05 06/03/2021 [id number] Sinusitis Instructions Basic Information Sinusitis is an [...] headache and sinus pressure Instructions Medications: Decongestants: Frdh-sxe-cpfbtvs decongestants such as sudafed are helpful. You should not use these for prolonged periods of time and they may not be contraindicated due to drug interactions with your regular medications or if you have medical problems such as high blood pressure. Ask your LITHOGRAPH PRESS OPERATOR. decongestant sprays such as Afrin and Yury-synephrine may also help your symptoms. However, if theses are used for over 3 days in a row, the congestion can actually get worse when you stop using them. So, use sparingly. If you have high blood pressure, your LITHOGRAPH PRESS OPERATOR may not recommend use. nasal steroid drops/spray [...] in your condition between 8am-10pm, please [facility] at [phone] to help navigate your care. [email or web address] Not available 06/03/2021 15:24:52 Reason for Referral None Reported. Results Created Date Observation Date Name Description Value Unit Range Abnormal Flag Note LastModifiedBy Organization Detail LastModifiedTime 08/19/19 20 08/19/2019 creat inine , blood crea 0.5 mg/dL 0.6-1. 3 Not Available Spr - Home [address] [place], [address], 08/19/2019 20:44:44 08/19/19 20 08/19/2019 6+ iStat Na 140 mmol/ L 138-14 6 Not Available [facility] - Home [address] [place], [address], 08/19/2019 20:44:38 08/19/19 20 08/19/2019 6+ iStat K 3.7 mmol/ L 3.5-4. 9 Not Available [facility] - [facility] [address] [place], [address], 08/19/2019 20:44:38 08/19/19 20 08/19/2019 6+ iStat cL 108 mmol/ L 98-109 Not Available [facility] - Home [address] [place], [address], 08/19/2019 20:44:38 08/19/19 20 08/19/2019 6+ iStat BUN 10 mg/dL 8-26 Not Available [facility] - [facility] [address] [place], [address], 08/19/2019 20:44:38 08/19/19 20 08/19/2019 6+ iStat glu 98 mg/dL 70-105 Not Available [facility] - Home [address] [place], [address], 08/19/2019 20:44:38 08/19/19 20 08/19/2019 6+ iStat HCT 38 %_pcv 37-47 Not Available Spr - Home [address] [place], [address], 08/19/2019 20:44:38 08/19/19 20 08/19/2019 6+ iStat Hb 12.9 g/dL 12-17 Not Available Spr - Home [address] [place], [address], 08/19/2019 20:44:38 08/03/19 20 08/03/2019 urina lysis , dipst ick Appearance cloudy Not Available Spr - H ome [address] [place], [address], 08/03/2019 17:19:58 08/03/19 20 08/03/2019 urina lysis , dipst ick Color yellow Not Available Spr - Home [address] [place], [address], 08/03/2019 17:19:58 08/03/19 20 08/03/2019 urina lysis , dipst ick Glucose negati ve Not Available Spr - Home [address] [place], [address], 08/03/2019 17:19:58 08/03/19 20 08/03/2019 urina lysis , dipst ick Bilirubin negati ve Not Available Spr - Home [address] [place], [address], 08/03/2019 17:19:58 08/03/19 20 08/03/2019 urina lysis , dipst ick Ketones NEG Not Available [facility] [address] [place], [address], 08/03/2019 17:19:58 08/03/19 20 08/03/2019 urina lysis , dipst ick Sp. Baldwin 1.015 Not Available Spr - Home [address] [place], [address], 08/03/2019 17:19:58 08/03/19 20 08/03/2019 urina lysis , dipst ick Blood NEG Not Available Spr - Home [address] [place], [address], 08/03/2019 17:19:58 08/03/19 20 08/03/2019 urina lysis , dipst ick pH 6.5 Not Available Spr - Home [address] [place], [address], 08/03/2019 17:19:58 08/03/19 20 08/03/2019 urina lysis , dipst ick Protein negati ve Not Available Spr - [facility] [address] [place], [address], 08/03/2019 17:19:58 08/03/19 20 08/03/2019 urina lysis , dipst ick Urobilirubin negati ve Not Available Spr - [facility] [address] [place], [address], 08/03/2019 17:19:58 08/03/19 20 08/03/2019 urina lysis , dipst ick Nitrites NEG Not Available Spr - Maximino e [address] [place], [address], 08/03/2019 17:19:58 08/03/19 20 08/03/2019 urina lysis , dipst ick Leukocytes + Not Available Spr - H o[facility] [address], [place], [address], 08/03/2019 17:19:58 11/01/19 20 11/01/2019 XR, lumbo [...] Annemarie ARMENDARIZ.O. 020 5:34:0 0 PM EDT. [email or web address] [facility] ([facility]) [address] , [place], [address], 11/27/2019 11:20:00 Result Notes None recorded. Problems Name Problem SNOMED Code Status Onset Date Resolution Date Notes Provider Name and Address Organization Details Recorded Time Asthma 756389618 Active ANI MERRITT NP [address] [place], [address] , [place] [facility] 0 17:18:03 Problem Notes None recorded. Procedures Surgical History Date Name Laterality Status Provider Name and Address Organization Details Recorded Time 0 IV Start Procedure - DH completed ANI MERRITT NP [address] [place], [address], [place] [facility] 08/19/2019 20:40:42 Imaging Results Imaging Date Name Status LastModified by Organiz ation Details LastModified Time 11/01/2019 XR, lumbosacral spine completed [email or web address] [facility] ([facility]) [address] , [place], [address], 11/27/2019 11:20:00 Procedure Notes None recorded. Medical Equipment None Reported. Allergies Allergen ID Allergen Name Allergen Category Reaction Reaction Severity Criticality Documentation Date Start Date Code Code System Note Provider Name and Address Organization Details Recorded Time 811025 Bactrim medicatio n Not available Not available Not available 08/03/2019 27917 9 RxNorm ANI RENÉ , LITHOGRAPH PRESS OPERATOR [address], [place], [address], [place] [facility] 0 17:09:16 315386 morphine medicatio n Not available Not available Not available 08/03/2019 7052 RxNorm ANI KRAUSJACINTO , CHRISTIANO [address], [place], [address], [place] [facility] 0 17:09:23 381274 Inderal medicatio n Not available Not available Not available 08/03/2019 15585 0 RxNorm ANI KRAUSJACINTO , CHRISTIANO [address], [place], [address], [place] [facility] 0 17:09:56 911415 Iodinated contrast media (substanc e) medicatio n Not available Not available Not available 08/03/2019 55103 2004 SNOMED ANI MERRITT NP [address], [place], [address], [place] [facility] 0 17:10:22 873204 Product containin g penicilli n (product) medicatio n Not available Not available Not available 11/01/2019 03624 8001 SNOMED KINA PHILLIPS [address], [place], [place], [address], [place] [facility] [...] % 118 mm[Hg] 80 mm[Hg] Not Available [facility] 0 20:20:07 Date Recorded Respiratory rate Oxygen saturation Oxygen saturation in Arterial blood by Pulse oximetry Heart rate Body temperature Systolic blood pressure Diastolic blood pressure Provider Name and Address Organization Details Last Updated DateTime 0 18 /min 97 % 97 % 75 /min 97.9 [degF] 106 mm[Hg] 64 mm[Hg] Not Available [facility] 0 16:13:19 Date Recorded Heart rate Body temperature Oxygen saturation Oxygen saturation in Arterial blood by Pulse oximetry Respiratory rate Systolic blood pressure Diastolic blood pressure Provider Name and Address Organization Details Last Updated DateTime 0 75 /min 97.2 [degF] 97 % 97 % 16 /min 112 mm[Hg] 68 mm[Hg] Not Available [facility] 0 15:09:28 Date Recorded Heart rate Oxygen saturation Oxygen saturation in Arterial blood by Pulse oximetry Body temperature Respiratory rate Systolic blood pressure Diastolic blood pressure Provider Name and Address Organization Details Last Updated DateTime 0 90 /min 98 % 98 % 98.3 [degF] 18 /min 112 mm[Hg] 58 mm[Hg] Not Available [facility] 0 09:52:46 Date Recorded Respiratory rate Oxygen saturation Oxygen saturation in Arterial blood by Pulse oximetry Body temperature Heart rate Systolic blood pressure Diastolic blood pressure Provider Name and Address Organization Details Last Updated DateTime 2 18 /min 98 % 98 % 97.7 [degF] 74 /min 114 mm[Hg] 68 mm[Hg] Not Available [facility] 2 14:57:34 Social History Question Answer Notes LastModified by Organizat ion Details LastModified Time Tobacco Smoking Status Former Smoker ANI MERRITT NP [address] [facility] [place], [address], [place] [facility] 08/03/2019 17:19:22 Do You Have An Advance [...] History Nothing Reported. Medical History Condition Response Coronary Artery Disease N Depression Y COPD N Diabetes Y Cancer N Stroke N Asthma Y High Cholesterol N Pulmonary Embolism N Hypertension Y Kidney Disease N Gynecological HistoryNo gynecological history recorded. Obstetrics History GPAL:G 0 P 0 0 0 0 Past Encounters Encounter ID Performer Location Encounter Start Date Encounter Closed Date Diagnosis/Indication Diagnosis SNOMED-CT Code Diagnosis ICD10 Code Diagnosis Note [id number] ANI MERRITT NP [facility] [address] [place] [address] 08/03/2019 17:07:49 08/04/2019 16:16:45 Abdominal pain 02865826 R10.9 [id number] ANI MERRITT NP [facility] [address] [place] [address] 08/19/2019 20:15:27 08/20/2019 17:21:09 Dizziness present 999455816 R42 Acute vomiting 97365690 R11.10 [id number] ANI MERRITT NP [facility] [address] [place] [address] 08/31/2019 16:09:02 09/03/2019 13:28:55 Sciatica 11793731 M54.32 [id number] KINA PHILLIPS [facility] [address] [place] [address] 11/01/2019 14:16:21 11/03/2019 15:44:39 Lumbago with sciatica 822839883 M54.42 [id number] KINA ROGERS [facility] [address] [place] [address] 11/23/2019 09:30:22 11/27/2019 10:52:45 Pain of right wrist 0780361970 13395 M25.531 [id number] KINA Kothari [facility] [address] [place] [address] 06/03/2021 14:53:00 06/06/2021 19:57:36 Viral syndrome 253491941 B34.9 Proper Personal Protective Equipment (PPE), including [...] after care of this patient according to [facility]'s infection prevention protocols. Overview/H istory: 60 yo female with 2-3 days of sinus pressure, congestion and clear drinage, dry cough, and sore throat is seen for eval. She was placed on pred 20mg QD x5d by her rehab therapy manager yesterday. Exam: neuro exam wnl, ENT exam [...] free fluid intake-and will discuss with her rehab therapy manager sunday if there are no improvemen t [...] Valdez Member ID Guarantor Name 08/19/2019 1 [facility] - DOS PRIOR TO 2022 - DUAL ELIGIBLE (MEDICARE REPLACEMENT/ADV ANTAGE - HMO) Elizabeth Leot [id number] Elizabeth Leot 08/31/2019 1 [facility] - DOS PRIOR TO 2022 - DUAL ELIGIBLE (MEDICARE REPLACEMENT/ADV ANTAGE - HMO) Elizabeth Perezgent [id number] Elizabeth Perezgent 11/01/2019 1 [facility] - DOS PRIOR TO 2022 - DUAL ELIGIBLE (MEDICARE REPLACEMENT/ADV ANTAGE - HMO) Elizabeth Perezgent [id number] Elizabeth Perezgent 11/23/2019 1 [facility] - DOS PRIOR TO 2022 - DUAL ELIGIBLE (MEDICARE REPLACEMENT/ADV ANTAGE - HMO) Elizabeth Perezgent [id number] Elizabeth Perezgent 06/03/2021 1 [facility] - DOS PRIOR TO 2022 - DUAL ELIGIBLE (MEDICARE REPLACEMENT/ADV ANTAGE - HMO) Elizabeth Huang [id number] Elizabeth Huang Notes Date Note Type Note [...] ago. ANI MERRITT, CHRISTIANO [address], [place], [address], [place] [facility] 08/19/2019 21:17:01 08/31/2019 text/html Pt reports left hip pain that has been dx as sciatica. She has gone for an evaluation for PT and is awaiting insurance approval. Pt has been referred to a hip specialist at [facility] and confirmed that it was sciatica. [...] well. ANI MERRITT, CHRISTIANO [address], [place], [address], [place] [facility] 08/31/2019 16:58:16 11/01/2019 text/html [...] B/B control. KINA PHILLIPS [address], [place], [address], [place] [facility] 11/01/2019 16:52:45 11/23/2019 text/html [...] other complaints. KINA ROGERS [address], [place], [address], [place] [facility] 11/23/2019 11:49:51 06/03/2021 text/html 60 yo female new to provider known to [facility] reports a sinus infection going on (+) sinus headache 2-3 dayspain now /10 improved with APAPpt reports she spoke with her rehab therapy manager Lakshmi Luna yesterdayand she was prednisone 20mg QD x5dshe has not called them back since yesterdaynares are patent and she reports some clear to green drainageshe has some assoc sore throat, and dry cough KINA Kothari [address] [place] [address], [address], [place] [facility] 06/03/2021 15:30:17 OBGyn Episode No OBEpisode recorded.
--- OUTSIDE RECORDS SUMMARY | 2024-05-29 06:15 | XMS_ITS | Data Portability ---
Author Organization [employer] [employer] [facility] [employer] Address [address] [place] [address] Care Team Providers Care It Consulting Manager Name Role Phone HIM CCA OTHER PONCHO BAHENA Primary Care Provider Assessment Encounter Date Assessment Date Assessment LastModified by Organization Details LastModified Time 03/29/2024 03/29/2024 As noted, we aayush e called to see this patient regarding concerns of pharyngitis. Evaluation in the field was performed by my machine washer colleague, as noted above, I provided real-time [...] assessment and plan as documented by the machine washer. I provided real time medical direction for this encounter and was immediately available to provide additional phone based assistance as needed. History as noted by machine washer. Pt with history of COPD, ex smoker, [...] Assessment and Plan as documented by the Business Unit Director. Patient given the opportunity to ask questions. Our service contacted for an assessment of: Palpitations As per above, patient with a history of excessive caffeine intake and generalized anxiety disorder. Calls this service for concern of racing heart rate after stating she had excessive caffeine intake. Denies dyspnea on exertion and shortness of breath. Per machine washer on the scene, vital signs are stable [...] rapid strep group A, throat [address], [address] 12:55:09 rapid SARS CoV 2 Ag, QL IA, respiratory specimen [address], [address] [place] [address] 12:55:09 rapid flu (A+B) [address] [place] [address], [address] [place] [address] 12:55:09 rapid SARS CoV 2 Ag, QL IA, respiratory specimen [address] [place] [address], [address] [place] [address] 19:53:01 rapid flu (A+B) [address], [address] 19:52:39 Referral None recorded. Procedures None recorded. Surgeries None recorded. Imaging None recorded. Medication Orders ketorolac 30 mg/mL injection solution 2024 025 [facility], [address] [place] [address], [address], 18:04:09 Patient TargetsNo targets recorded. Patient InstructionsNo instructions recorded. Reason for Referral None Reported. Results Created Date Observation Date Name Description Value Unit Range Abnormal Flag Note LastModifiedBy Organization Detail LastModifiedTime 03/27/1903/27/2024 rapid strep group A, throa t Strep negati ve Not Available [facility] ed [address] [place] [address], [phone] 03/27/2024 11:54:46 03/29/19 25 03/29/2024 rapid SARS CoV 2 Ag, QL IA, respi rator y speci men rapid SARS CoV 2 Ag, QL IA, respiratory specimen negati ve Not Available [address], [address] 03/29/2024 18:05:28 03/29/19 25 03/29/2024 rapid flu (A+B) Flu negati ve Not Available [facility] ed [address] [place] [address], [phone] 03/29/2024 18:05:28 Result Notes None recorded. Medical Equipment None Reported. Allergies Allergen ID Allergen Name Allergen Category Reaction Reaction Severity Criticality Documentation Date Start Date Code Code System Note Provider Name and Address Organization Details Recorded Time 2117 aspirin medicatio n Not available Not available Not available 04/30/2022 1191 RxNorm Not Available [facility] - production 4 03:41:14 211 morphine medicatio n Not available Not available Not available 04/30/2022 7052 RxNorm Not Available [facility] - production 4 03:41:14 2120 Augmentin medicatio n diarrhea Not available low 04/30/2022 23160 2 RxNorm EMELY DHILLON MD [address] [place] [address],[address], [place], [address], [facility] 4 09:58:09 4312 Bactrim medicatio n Not available Not available Not available 02/20/2023 81709 9 RxNorm Not Available [facility] - production 4 03:41:14 4313 sulfameth oxazole / trimethop rim medicatio n Not available Not available Not available 02/20/2023 58154 RxNorm Marita Ramos MD [address] [place] [address],[address], [place], [address], [facility] 4 14:13:42 4314 doxycycli ne Not available Not available Not available Not available 02/20/2023 3640 RxNorm Not Available [facility] - production 4 03:41:14 5895 Seroquel medicatio n Not available Not available Not available 09/30/2023 80956 RxQue DHILLON MD [address] [place] [address],[address], [place], [address], [facility] 4 18:08:17 5896 fluoxetin e medicatio n Not available Not available Not available 09/30/2023 4493 RxQue DHILLON MD [address] [place] [address],[address], [place], [address], [facility] 4 18:08:31 5897 nabumeton e medicatio n Not available Not available Not available 09/30/2023 24311 RxQue DHILLON MD [address] [place] [address],[address], [place], [address], [facility] 4 18:08:46 5898 propranol ol medicatio n Not available Not available Not available 09/30/2023 8787 RxQue DHILLON MD [address] [place] [address],[address], [place], [address], [facility] 4 18:09:03 7995 Product containin g penicilli n (product) medicatio n Not available Not available Not available 12/11/2023 74707 8001 SNOMED Not Available [facility] - production [...] acetaminophe n 325 mg tablet Take 2 tablet(s) every 6 hours by oral route for [...] propionate 50 mcg/actuatio n nasal spray,suspen zoe [place] 1 spray every day by intranasal route. [...] [degF] 116 mm[Hg] 69 mm[Hg] Not Available [facility] 5 17:58:46 Date Recorded Heart rate Body weight Respiratory rate Body temperature Oxygen saturation Oxygen saturation in Arterial blood by Pulse oximetry Body height Systolic blood pressure Diastolic blood pressure Provider Name and Address Organization Details Last Updated DateTime 5 85 /min 22608.1 52 g 18 /min 98.4 [degF] 94 % 94 % 154.94 cm 133 mm[Hg] 75 mm[Hg] Not Available [facility] 12:47:43 Date Recorded Heart rate Respiratory rate Oxygen saturation Oxygen saturation in Arterial blood by Pulse oximetry Body temperature Systolic blood pressure Diastolic blood pressure Provider Name and Address Organization Details Last Updated DateTime 5 67 /min 16 /min 99 % 99 % 98.5 [degF] 142 mm[Hg] 70 mm[Hg] Not Available [facility] 5 18:36:07 Date Recorded Oxygen saturation Oxygen saturation in Arterial blood by Pulse oximetry Body temperature Heart rate Respiratory rate Systolic blood pressure Diastolic blood pressure Provider Name and Address Organization Details Last Updated DateTime 5 99 % 99 % 98.2 [degF] 78 /min 16 /min 134 mm[Hg] 84 mm[Hg] Not Available [facility] 5 20:25:47 Date Recorded Respiratory rate Heart rate Body weight Body temperature Body height Oxygen saturation Oxygen saturation in Arterial blood by Pulse oximetry Systolic blood pressure Diastolic blood pressure Provider Name and Address Organization Details Last Updated DateTime 5 20 /min 59 /min 51908.4 16 g 97.9 [degF] 154.94 cm 98 % 98 % 118 mm[Hg] 80 mm[Hg] Not Available [facility] 5 18:00:08 Social History None recorded. Functional Status [...] 112 Amisha Huntley MD Main - [facility] [address] [place] [address] 03/31/2021 20:59:17 08/30/2021 11:57:03 Osteoarthritis of right knee joint 2812862283 01573 M17.11 Pain of ri ght knee joint 2847858086 88103 M25.561 1721 Luis Cutler MD Main - [facility] [address] [place] [address] 07/03/2021 12:08:30 10/26/2021 13:35:38 Urinary tract infectious disease 21986221 N39.0 This order set is for complicate d UTIs -- those with concern for early pyelo, abnormal anatomy, indwelling catheter, or other higher-ris k features. For MDRO options see UTI-MDRO Kidney stone 98254267 N2 0.0 Acute cystitis 34665658 N30.00 These are first-line agents for lower-risk , uncomplica sharmin UTI. For resistance concerns, early pyelo, or other complicati ons, see complicate d UTI 2887 Maryanne Yip MD Main - [facility] [address] [place] [phone] 09/04/2021 13:33:24 10/18/2021 16:29:06 Pain in right foot 2247511572 26099 M79.671 Pt p/w acute onset atraumatic foot [...] assessment and plan as documented by the machine washer. I provided real time medical direction for this encounter and was immediatel y available to provide additional phone based assistance as needed. 4782 Luis Cutler MD Main - [facility] [address] [place] [phone] 12/04/2021 16:52:50 12/05/2021 14:55:01 Upper respiratory infection 86767001 J06.9 6649 Amisha Huntley MD Main - [facility] [address] [place] [phone] 02/11/2022 14:16:07 02/14/2022 16:09:43 COVID-19 988102652 U07.1 pat on carbamazep ine expl paxlovid contraindi cated cannot abruptly stop medPat states her rheumatolo gist told her not to be on prednisone before her US of her hand and wrist- does not know time frame - scheduled for 03/13/22. Advised more important to control breathing - can delay/resc hedule US if needed/adv ised to touch base w/ her DrAbdon on Sunday- inform re 5 day course of steroid-pa t responded well to neb -lungs cta- reassure re exam- has refill on her albuterol mdi but pharmacy informed her cannot fill before 02/23- will try and send refill- she requests Rx go to [facility] in [facility] due to holiday weekend( nl uses [facility]) Due to dark green sputum may have bacterial superinfec tion in sinuses or lungs will cover w/ azithromyc in which she reports she tolerates well. Advised Tylenol for pain/ fever has 500 mg caps- can take 1000 mg 3x /24 hrs based on her stated weight 6718 Luis Soto MD Main - [facility] [address] [place], [place] [phone] 02/14/2022 19:31:12 02/16/2022 10:53:42 COVID-19 [id number] U07.1 [id number] Rogelio Vasquez MD Main - [facility] [address] [place] [phone] 02/18/2022 19:38:25 02/20/2022 10:27:07 Acute exacerbation of chronic obstructive pulmonary disease 752083542 J44.1 Wheezing on exam. Was not candidate for anti-viral s for COVID. Prednisone improved symptoms. WIll rx for additional 5 days. COVID-19 864453135 U07.1 Was not candidate for anti-viral s. Prednisone improved symptoms. WIll rx for additional 5 days. 7057 Maryanne Yip MD Main - [facility] [address] [place] [phone] 02/26/2022 16:27:03 02/28/2022 12:34:42 Exacerbation of moderate persistent asthma 121997110 J45.41 Pt with recent COVID infection (now [...] assessment and plan as documented by the machine washer. I provided real time medical direction for this encounter and was immediatel y available to provide additional phone based assistance as needed. 7393 Luis Cutler MD Main - [address] [address] 03/12/2022 21:49:28 03/14/2022 10:01:04 Postviral cough 723682288 R05.3 As noted, we were called to see this patient regarding concerns of cough and respirator y symptoms following COVID and PNA, treated with cefpodoxim e and possibly also azithro. Evaluation in the field was performed by my machine washer colleague, as noted above, I provided real-time [...] 7820 Luis Soto MD Main - [facility] [address] [place] [phone] 03/30/2022 16:57:05 04/06/2022 14:01:29 Acute urinary tract infection 242696422 N39.0 7909 Mandy Portillo MD Main - [facility] [address] [place] [phone] 04/03/2022 20:15:34 04/06/2022 15:58:00 Viral upper respiratory tract infection 841603395 J06.9 8239 Maryanne Yip MD Main - [facility] [address] [place] [address] 04/16/2022 13:22:29 04/18/2022 09:19:04 Productive cough 63748295 R05.9 Evaluation in the field was performed by my machine washer colleague, as noted above, I provided real-time [...] 8475 Mandy Portillo MD Main - [facility] [address] [place], [place] [phone] 04/24/2022 18:57:17 04/26/2022 10:49:34 Flank pain 988146715 R10.9 8654 Amisha Huntley MD Main - [facility] [address] [place], [place] [phone] 04/30/2022 18:17:58 05/02/2022 09:44:42 Pain of right shoulder joint 6117478698 0590252 M25.511 pat had nl renal function 03/02/22( [...] she verbalized understand ing of instructio ns 9210 Rogelio Vasquez MD Main - [facility] [address] [place] [address] 0 05/21/2022 19:11:05 05/22/2022 10:54:13 Paronychia of finger of right hand [id number] 3763233 L03.011 No s/s of cellulitis . Advised to do warm soaks and if persistent pain to go to PCP for removal of potential ingrown nail 9589 Mandy Portillo MD Main - [facility] [address] [place] [address] 05/29/2022 18:58:29 05/30/2022 11:45:45 Pain in right thumb 4798265552 865107 M79.644 [id number] Maryanne Yip MD Main - [facility] [address] [place], [place] [phone] 06/17/2022 12:55:35 06/19/2022 10:39:24 Thoracic back pain 782851275 M54.6 Evaluation in the field was performed by my machine washer colleague, as noted above, I provided real-time [...] shortness of breath, cough, chest pain, fever. 66434 Knidra Wright MD Main - [facility] [address] [place] [phone] 07/03/2022 20:06:35 07/04/2022 15:03:54 Rheumatoid arthritis 62316837 M06.9 73871 Luis Cutler MD Main - [facility] [address] [place] [address] 0 07/08/2022 12:56:39 07/10/2022 18:48:54 Pain 29526678 R52 As noted, we were called to see this patient regarding concerns of pain in rib and with inspiratio n subsequent to fall. Evaluation in the field was performed by my machine washer colleague, as noted above, I provided real-time [...] LH, or anything unusual. Fracture of rib 13874040 S22.32XA 52407 TOÑITO VARELA MD [facility] - [address] [address] 07/09/2022 13:21:31 07/10/2022 19:03:27 Rib pain 561917088 R07.81 [id number] Elizabeth Victoria MD [address] [address] 07/11/2022 20:04:39 07/12/2022 09:35:01 Chronic obstructive pulmonary disease 29068781 J44.9 [id number] Yuliya Maldonado MD [address] [address] 07/16/2022 16:26:39 07/26/2022 10:17:58 Rib pain 230652659 R07.81 case supervised and discussed with machine washer. Patient was given opportunit y to ask questions, warning signs/symp toms of pertinent medical emergency reviewed. mechanical fall several weeks ago, seen at two different [facility] without identified etiology on imaging (xrays, no fractures) but prescribed oxycodone. Continues to experience excruciati ng pain, reproducib le on palpation. Explained to patient that [facility] does not have any imaging capabiliti es for diagnostic purposes, so wont be able to provide much additional insight to the etiology of her acute pain. Pt adamant she wanted a diagnosis JERMAINE and additional therapeuti cs, for which I explained she would have to present to the ED. Pt requested machine washer call ambulance. [id number] Abida Mcleod MD Main - [facility] [address] [place] [phone] 08/27/2022 13:28:03 08/28/2022 12:04:02 Urinary symptoms 695904702 R39.9 61 year old female being evaluated [...] new symptoms before culture data are available. [id number] Mandy Portillo MD Main - [facility] [address] [place] [address] 0 08/27/2022 18:13:48 08/28/2022 10:29:08 Pain 94165187 R52 [id number] Amisha Huntley MD Main - [facility] [address] [place] [phone] 0 09/04/2022 11:12:04 09/04/2022 16:13:04 Sinus headache 4423397 R51.9 Patient is already taking Johanny and [...] time which I discussed with the patient [id number] Maryanne Yip MD Main - [facility] [address] [place] [phone] 0 09/11/2022 19:18:28 09/11/2022 23:12:11 Contact dermatitis 52208705 L25.9 Evaluation in the field was performed by my machine washer colleague, as noted above, I provided real-time [...] shortness of breath, cough, chest pain, fever. [id number] Yuliya Maldonado MD Main - [facility] [address] [place] [address] 09/23/2022 17:13:29 09/26/2022 15:32:41 Pain in throat 079843249 R07.0 1-2 d sore throat iso increased exposure to high volume AC. Strep negative. Some possible sick contacts. No fevers/chi lls or other infectious sx on exam or history. takes johanny bid, endorses post nasal drip but states that any nasal spray gives her a head ache. Dicsussed monitoring and supportive care with tea/honey etc. Warning signs/sx reviewed, pt and machine washer agree with plan. [id number] Liam Cheung MD Main - [facility] [address] [place] [phone] 0 09/24/2022 13:32:56 09/26/2022 15:37:52 Acute pharyngitis 305523803 J02.9 Patient with pharyngiti s/laryngit is. No signs of bacterial superinfec tion. POC COVID and Strep neg. Advised continued supportive care. [id number] Amisha Huntley MD Main - [facility] [address] [place] [phone] 0 09/30/2022 18:28:05 10/02/2022 07:15:34 Acute exacerbation of chronic obstructive pulmonary disease 209483675 J44.1 With possible minor URIadvised to use [...] y, but her blood sugar is normal [id number] Marita Ramos MD Main - [facility] [address] [place] [address] 0 10/12/2022 13:11:26 10/12/2022 19:18:57 Respiratory tract congestion and cough 514121033 R05.9 69309 Jas Woodall MD Main - [facility] [address] [place] [address] 0 10/14/2022 11:55:33 10/16/2022 20:25:38 Pain of right wrist 2680180907 76162 M25.531 Dizziness 651046968 R42 [id number] Elizabeth Victoria MD Main - [facility] [address] [place] [address] 0 10/19/2022 20:24:42 10/19/2022 23:38:55 Dysuria 19976622 R30.0 Urinary symptoms 4838118 08 R39.9 [id number] Yuliya Maldonado MD Main - [facility] [address] [place] [address] 0 10/29/2022 10:52:45 12/12/2022 15:05:16 Cough 79867654 R05.9 I provided real -time medical direction via phone for this encounter, and was available for additional phone based assistance as needed. I have reviewed and agree with the Assessment and Plan as documented by the Business Unit Director. Patient given the opportunit y to ask [...] Reviewed supportive care strategies and warning signs/sx. [id number] Elizabeth Victoria MD Main - [facility] [address] [place] [address] 0 10/31/2022 19:47:09 11/01/2022 12:07:59 Acute viral pharyngitis 833975756 J02.9 [id number] [facility] [address] [place] [phone] 0 11/03/2022 19:45:46 11/05/2022 18:05:51 Pharyngitis 097486074 J02.9 62 year old female being evaluated [...] assessment and plan as documented by the machine washer. I provided real-time medical direction for this encounter and was immediatel y available to provide additional phone-base d assistance as needed. [id number] Maryanne Yip MD Main - [facility] [address] [place] [phone] 0 11/05/2022 11:22:03 11/05/2022 18:18:37 Acute pharyngitis 514878454 J02.9 Evaluation in the field was performed by my machine washer colleague, as noted above, I provided real-time [...] shortness of breath, cough, chest pain, fever. 10749 Mandy Portillo MD Main - [facility] [address] [place] [phone] 0 12/19/2022 20:38:38 12/27/2022 18:34:30 Hoarse 76707877 R49.0 [id number] Marita Ramos MD Main - [facility] [address] [place] [address] 0 12/21/2022 15:09:02 12/22/2022 13:12:24 Nausea and vomiting 66726196 R11.2 [id number] Luis Cutler MD Main - [facility] [address] [place] [address]584 0 12/24/2022 17:29:23 12/25/2022 14:41:46 Cellulitis 718504994 L03.90 As noted, we were called to see this patient regarding concerns of cellulitis . Evaluation in the field was performed by my machine washer colleague, as noted above, I provided real-time [...] particular ly high fever, unresolvin g pain. 83414 Marita Ramos MD Main - [facility] [address] [place] [phone] 0 12/27/2022 19:57:19 12/27/2022 22:46:42 Cellulitis 843287899 L03.90 [id number] Elizabeth Victoria MD Main - [facility] [address] [place] [address] [phone] 0 01/23/2023 20:58:40 01/24/2023 13:37:45 Acute sinusitis 49986544 J01.90 [id number] EMELY DHILLON MD Main - [facility] [address] [place] [phone] 0 01/27/2023 19:31:06 01/30/2023 10:07:25 Abscess 565130139 L02.91 As noted, we were called to see this patient regarding concerns of recurring right nostril abscess Evaluation in the field was performed by my machine washer colleague, as noted above, I provided real-time [...] surgeon, but no appt available until May.Per machine washer exam, right nostril blocked completely with puss Impression :Right nare abscess Plan:Pt was send to ED for I& D and possible IV antibiotic sNo Tramadol give since increases risk of bleeding during the I&D Primary care, consider__ _ Dispositio n: We discussed the situation and I recommende d referral to the emergency department . [id number] Yuliya Maldonado MD [facility] - [facility] [address] [place] [phone] 0 02/17/2023 18:16:57 02/18/2023 15:31:40 Acute urinary tract infection 158778298 N39.0 62 yo h/o recurrent UTis today p/w 1d severe flank pain. UA positive for LE and nitrites. Pt is in significan t distress 2/2 pain on exam, reports this is much worse than prior. Requesting transport to ED. 11677 Marita Ramos MD Main - [facility] [address] [place], [place] [address] 02/20/2023 14:07:45 02/21/2023 11:03:01 Renal angle tenderness 844141819 R10.829 Dysuria 28250338 R30.0 78971 Rangel Robledo MD Main - [facility] [address] [place], [place] [phone] 02/23/2023 17:39:45 02/26/2023 17:26:50 Chronic thoracic back pain 4094939486 52043 M54.6 34770 Ninoska Juarez MD Main - [facility] [address] [place] [address] 09418-615 0 03/10/2023 16:45:25 03/11/2023 15:32:12 Viral upper respiratory tract infection 291448763 J06.9 77601 Elizabeth Victoria MD Main - [facility] [address] [place] [address]90-316 0 04/10/2023 20:36:05 04/11/2023 17:22:36 Pain in left foot 7647555190 26129 M79.672 69418 Sam Perez MD Main - [facility] [address] [place] [address]49-262 0 04/25/2023 15:11:36 04/25/2023 22:44:01 Pain in left arm 390362635 M79.602 This 62-year-ol d female has a three month history of left upper back and shoulder pain with no history of trauma. She has been taking Tylenol, but today the pain is worse. I ordered Toradol 15 mg IM. I also recommende d she alternate ibuprofen with the Tylenol. She will follow-up with her PCP. The patient agreed with this plan. 21068 Elizabeth Victoria MD Main - [facility] [address] [place] [phone] 0 05/10/2023 20:23:10 05/14/2023 18:12:54 Acute urinary tract infection 933618443 N39.0 servce called for abd painfound 62 girish withDiabet es,COPD/As thma,Hyper tensionrec urrent UTIc/o 2-3 lower abd pain, urinary frequency, back painmost recent UCx 10/2022 with mixed floraAll: augmentin, bactrimVS noted elev BPreported examabd tender LLQ and RLQ #UTIempiri c macrobidf/ up Ucx [id number] Mandy Portillo MD Main - [facility] [address] [place] [phone] 0 05/29/2023 21:28:01 05/29/2023 22:30:30 Urinary symptoms 515060981 R39.9 [id number] Sara Rucker MD Main - [facility] [address] [place] [address] 18550-323 0 05/30/2023 13:40:04 05/30/2023 15:20:06 Pyelonephritis 33751795 N12 Urinary symptoms 6875806 08 R39.9 38648 Ninoska Juarez MD Main - [facility] [address] [place] [address] 74[address]-698 0 06/17/2023 20:18:31 06/19/2023 11:51:51 Community acquired pneumonia 266843628 J18.9 32369 Abida Mcleod MD Main - [facility] [address] [place] [address] [phone] 0 07/02/2023 18:08:47 07/03/2023 17:43:48 Abdominal pain 03349581 R10.9 62 year old female being evaluated [...] assessment and plan as documented by the machine washer. I provided real-time medical direction for this encounter and was immediatel y available to provide additional phone-base d assistance as needed. We discussed the diagnostic uncertaint y of home visits and associated risks. We discussed the need to seek care urgently/e mergently in the setting of any new or worsening symptoms. 28333 EMELY DHILLON MD Main - [facility] [address] [place] [address] [phone] 0 07/14/2023 20:33:44 07/16/2023 10:38:00 Urinary symptoms 271822686 R39.9 Evaluation in the field was performed by my machine washer colleague, as noted above, I provided real-time [...] plan for BMP and IV hydration, but machine washer unable to place a PIV or draw [...] pain CVA tenderness or any other concerns. 62616 EMELY DHILLON MD Main - [facility] [address] [place] [address] [phone] 0 07/15/2023 20:22:18 07/16/2023 10:43:33 Left lower quadrant pain 511687392 R10.32 Evaluation in the field was performed by my machine washer colleague, as noted above, I provided real-time [...] Department Primary care, consider__ _ Dispositio n:ER 78409 Marita Ramos MD Main - [address] [phone] 07/25/2023 08:03:15 07/26/2023 09:54:40 Seasonal allergy [id number] J30.2 [id number] Abida Mcleod MD Main - [address] [address] 09/28/2023 18:39:05 09/28/2023 20:43:24 Pain of left shoulder joint [id number] M25.512 63 year old female being evaluated [...] assessment and plan as documented by the machine washer. I provided real-time medical direction for this encounter and was immediatel y available to provide additional phone-base d assistance as needed. We discussed the diagnostic uncertaint y of home visits and associated risks. We discussed the need to seek care urgently/e mergently in the setting of any new or worsening symptoms. [id number] [facility] [address] [place] [phone] 09/30/2023 18:55:46 10/01/2023 12:23:23 Pain of left shoulder joint [id number] M25.512 Evaluation in the field was performed by my machine washer colleague, as noted above, I provided real-time [...] arm, CP, SOB or any other concerns. [id number] EMELY DHILLON MD Main - [facility] [address] [place] [address] 0 10/03/2023 18:14:26 10/04/2023 12:20:55 Pain of left shoulder joint [id number] M25.512 Evaluation in the field was performed by my machine washer colleague, as noted above, I provided real-time [...] vomiting. The patient took Ibuprofen 800 mg formerly [facility] 3 hours prior to the visit. [...] [facility] , so could [...] arm, CP, SOB or any other concerns. [id number] EMELY DHILLON MD Main - [facility] [address] [place] [phone] 0 10/12/2023 09:53:35 10/12/2023 22:05:57 Acute sinusitis [id number] J01.90 Evaluation in the field was performed by my machine washer colleague, as noted above, I provided real-time [...] first dose was administer ed by the machine washer. -A prescripti on for Flonase was sent [...] tolerate PO, weakness or any other concerns. [id number] EMELY DHILLON MD Main - [facility] [address] [place] [address] 11/08/2023 17:29:57 11/08/2023 23:24:56 Candidal intertrigo [id number] B37.2 Evaluation in the field was performed by my machine washer colleague, as noted above, I provided real-time direction and supervisio n for this visit. The evaluation revealed a 63-year-ol d female with a past medical history of diabetes mellitus, COPD, hypertensi on, and chronic shoulder pain, presenting with complaints of a fungal infection under both breasts. The patient reports she went to [facility] ED on 11/04 for a rash [...] rash in new areas any other concerns. [id number] Marita Ramos MD Main - [facility] [address] [place] [phone] 0 11/12/2023 14:09:08 11/13/2023 13:10:59 Candidal intertrigo [id number] B37.2 [id number] Jas Woodall MD Main - [facility] [address] [place] [address] 0 11/29/2023 11:03:27 11/29/2023 15:42:06 Shoulder pain [id number] M25.519 [id number] Marita Ramos MD Main - [facility] [address] [place] [phone] 0 12/15/2023 15:20:51 12/15/2023 19:16:04 Pruritic rash [id number] L28.2 [id number] Luis Cutler MD Main - [facility] [address] [place] [address] 0 12/16/2023 20:24:02 12/17/2023 00:34:23 Pain of bilateral hands [id number] 2480865 M79.641 As noted, we were called to see this patient regarding concerns of hand pain. Evaluation in the field was performed by my machine washer colleague, as noted above, I provided real-time [...] need for Cr check today [facility] [id number] KATE KESSLER MD Main - [facility] [address] [place] [phone] 0 01/03/2024 17:27:17 01/03/2024 18:46:50 Pain of right knee joint [id number] 54108 M25.561 [id number] Wes Regan MD Main - [facility] [address] [place] [address] 0 01/16/2024 19:06:51 01/17/2024 08:57:49 History of operative procedure on shoulder [id number] Z98.890 [id number] Luis Cutler MD Main - [facility] [address] [place] [address]278 0 01/20/2024 18:38:49 01/20/2024 21:54:58 Shoulder pain 98854064 M25.519 As noted, we were called to see this patient regarding concerns of severe shoulder pain apparently due to an injury in a sensitive recently post-op patient. Evaluation in the field was performed by my machine washer colleague, as noted above, I provided real-time direction and supervisio n for this visit. Impression :Severe shoulder pain, refractory to OTC APAP Plan:IV or IM ketorolac 30 mg [id number] Marita Ramos MD Main - [facility] [address] [place] [phone] 02/10/2024 17:37:40 02/12/2024 21:08:43 Urinary symptoms [id number] R39.9 [id number] EMELY DHILLON MD Main - [address] [phone] 02/16/2024 20:12:37 02/18/2024 00:14:16 Pain of left shoulder joint [id number] M25.512 Evaluation in the field was performed by my machine washer colleague, as noted above, I provided real-time [...] arm, CP, SOB or any other concerns. [id number] Loi Wu MD Main - [facility] [address] [place] [phone] 0 02/28/2024 13:48:17 02/28/2024 20:22:02 Upper respiratory infection [id number] J06.9 [id number] Marita Ramos MD Main - [facility] [address] [place] [phone] 0 03/05/2024 16:43:16 03/05/2024 19:19:50 Asthma [id number] J45.909 [id number] Maryanne Yip MD Main - [facility] [address] [place] [address] 0 03/15/2024 14:54:03 03/18/2024 16:38:13 Upper respiratory infection 20091403 J06.9 Evaluation in the field was performed by my machine washer colleague, as noted above, I provided real-time direction and supervisio n for this visit. 63yo F asthma, HTN p/w ongoing nasal congestion , cough. On prednisone x 48 hrs without improvemen t. Denies feveres, orthopnea, PND. On machine washer eval sat 97% rest also wnl, exam [...] shortness of breath, cough, chest pain, fever. [id number] Rogelio Vasquez MD Main - [address] [address] 03/16/2024 10:41:49 03/18/2024 17:02:49 Viral upper respiratory tract infection [id number] J06.9 Patient 4 days into prednisone course. Vitals stable. Taking inhalers at home though mild wheezing noted by machine washer and administer ed duoneb with good effect. Declined COVID/flu testing as out of window for treatment. Discussed red flag signs for which to seek higher level of care. [id number] Rangel Robledo MD Main - [address] [phone] 03/27/2024 11:44:09 03/27/2024 14:25:14 Sore throat [id number] J02.9 [id number] Ninoska Juarez MD [facility] - [address] [address] 0 03/29/2024 17:58:44 03/30/2024 15:29:24 Pharyngitis [id number] J02.9 [id number] Rangel Robledo MD Main - [address] [address] 0 04/13/2024 12:47:37 04/14/2024 09:49:23 Viral upper respiratory tract infection 088332315 J06.9 Acute pharyngitis 524047 003 J02.9 [id number] Rogelio Vasquez MD [address] [address] 04/17/2024 18:32:56 04/17/2024 21:18:53 Effusion of joint of right knee [id number] 34679 M25.461 Effusion with difficulty walking; in past has required drainage. Given severity of pain advised to go to ED for evaluation and patient in agreement in order to get aspiration . [id number] Marita Ramos MD Main - [facility] [address] [place] [address] 0 04/21/2024 20:25:45 04/22/2024 10:22:29 Generalized anxiety disorder [id number] F41.1 [id number] EMELY DHILLON MD Main - [facility] [address] [place] [address]71[address]573 0 05/03/2024 18:00:06 05/05/2024 13:55:51 Pain of right knee joint [id number] 77511 M25.561 Evaluation in the field was performed by my machine washer colleague, as noted above, I provided real-time [...] VS stableExam done and discussed with the machine washer : R knee reveals visible swelling and [...] Valdez Member ID Guarantor Name 03/29/2024 1 [facility] - DOS ON OR AFTER 2022 - DUAL ELIGIBLE - JAIL OPTIONS AND ONE CARE (MEDICARE REPLACEMENT/ADV ANTAGE - HMO) Elizabeth Huang [id number] Elizabeth Huang 04/13/2024 1 [facility] [place] - DOS ON OR AFTER 2022 - DUAL ELIGIBLE - JAIL OPTIONS AND ONE CARE (MEDICARE REPLACEMENT/ADV ANTAGE - HMO) Elizabeth Huang [id number] Elizabeth Huang 04/17/2024 1 [facility] [place] - DOS ON OR AFTER 2022 - DUAL ELIGIBLE - JAIL OPTIONS AND ONE CARE (MEDICARE REPLACEMENT/ADV ANTAGE - HMO) Eilzabeth Huang [id number] Elizabethevita Huang 04/21/2024 1 [facility] [place] - DOS ON OR AFTER 2022 - DUAL ELIGIBLE - JAIL OPTIONS AND ONE CARE (MEDICARE REPLACEMENT/ADV ANTAGE - HMO) Elizabeth Huang [id number] Elizabeth Huang 05/03/2024 1 [facility] - DOS ON OR AFTER 2022 - DUAL ELIGIBLE - JAIL OPTIONS AND ONE CARE (MEDICARE REPLACEMENT/ADV ANTAGE - HMO) Elizabeth Huang [id number] Elizabeth Huang Notes Date Note Type Note [...] Allergies Reviewed at 03/29/2024 - 14:11 Comments: Audit Clerks Supervisor verified the patient's name//address and phone number. [...] emergency treatment if needed -Allison Escobar RN Business Unit Director Organization Information for [employer] Business Legal Name: [facility] Address: [address] [place] [address], [place] [address], Wire Stretcher: Edward Anna MD CLIA No.: [id number] Business Unit Director POC Test Results from [employer] Rapid COVID antigen (17:57:58) COVID: - Rapid influenza antigen (17:57:59) Flu: - Rapid strep test (17:57:59) Strep: - ..................... ..................... ..................... ..................... ..................... ..................... ............... Business Unit Director Note From [employer] [facility]: This 63-year-old female [...] ..................... ..................... ..................... ..................... ..................... ..................... ............... [facility] Consulted: Ninoska Juarez ..................... ..................... ..................... ..................... ..................... ..................... ............... Disposition: Fulfilled Ninoska Juarez MD [address] [place] [address],[address], [place], [address], [employer] 03/29/2024 18:27:39 04/13/2024 text/html This was a super vised home visit with machine washer Cheyanne Wilson. CRC Nurse Triage Notes (Alberto [...] Illness (SPMI), HypertensionPMH Reviewed at 04/13/2024 - :34Allergies Reviewed at 04/13/2024 - 11:34Comments: Audit Clerks Supervisor verified the Pt.'s name//address and phone number. [...] needed - [facility] and 03/29 for same. ER treatment declined Business Unit Director Organization Information for Cheyanne Wilson Legal Name: [employer]Address: [address] [place] [address], Medical Director: Burton Kruse [facility] No.: [id number] Business Unit Director POC Test Results from Cheyanne Wilson - [facility] Rapid strep test (12:41:36)Strep: -Attachments uploaded as part of this test result can be found under Documents section. Rapid COVID antigen (12:42:22)COVID: -Attachments uploaded as part of this test result can be found under Documents section. Rapid influenza antigen (12:42:23)Flu: - ..................... ..................... ..................... ..................... ..................... ..................... ............... Business Unit Director Note From Cheyanne Wilson: [facility] makes pt contact. She is walking [...] is denying fevers/chills, n/v/d, cp, and sob. [facility] obtains vistal signs and pt is assessed. Lungs present w/ expiratory wheezes. Throat appears to have some irritation, but no drainage, swelling, or pustules are noted. Neck is supple, trachea is midline w/ no swelling noted. Auscultation of the throat is clear. Pt is swabbed for COVID/flu, and strep A and all tests are negative. [facility] contacts [facility] and discusses the above. [facility] recommends pt speak w/ her PCP about seeing an ENT for a scope of her vocal cords. [facility] will send a note to pt's primary care team w/ the recommendation as well and recommends pt continue w/ her current course of care. Pt is amendable to the plan. [facility] is clear. Report completed by ROULA Wilson [id number]. [facility] Lab Orders: rapid strep group A, throat: Performed rapid SARS CoV 2 Ag, QL IA, respiratory specimen: Performed rapid flu (A+B): Performed ..................... ..................... ..................... ..................... ..................... ..................... ............... [facility] Consulted: Rangel Robledo ..................... ..................... ..................... ..................... ..................... ..................... ............... Disposition: Fulfilled Rangel Robledo MD [address], [place], [address], [employer] 04/13/2024 15:27:33 04/17/2024 text/html CRC Nurse Triage Notes (Nicky Seth): Reason For Request: right knee is swollen, pt experiencing pain while walking, knee is sensitive to the touch Chief Complaints: Extremity Pain, Wound Care, Rash PMH: COPD/Asthma, Severe Persistent Mental Illness (SPMI), Hypertension, Anxiety Disorder, Rheumatoid Arthritis PMH Reviewed at 04/17/2024 - 17: Allergies Reviewed at 04/17/2024 - : Comments: c/o right knee swelling, pain, hot [...] ..................... ..................... ..................... ..................... ..................... ..................... ............... Business Unit Director Note From Jacques Nix: Dispatched to the [...] 911 called on behalf of the Pt. [facility] ALS unit transported Pt to [facility] ED per her request. All times are approx. ..................... ..................... ..................... ..................... ..................... ..................... ............... [facility] Consulted: Víctor Vasquez ..................... ..................... ..................... ..................... ..................... ..................... ............... Disposition: Fulfilled Rogelio Vasquez MD [address] [place] [address],[address], [place], [address], [employer] 04/17/2024 20:43:33 04/21/2024 text/html CRC Nurse Triage [...] at 04/21/2024 - :49 Allergies Reviewed at 04/21/2024:49 Comments: Audit Clerks Supervisor verified the patient's name//address and phone number. [...] ..................... ..................... ..................... ..................... ..................... ..................... ............... Business Unit Director Note From Jacques Nix: Dispatched to the [...] -edema/swelling. [facility] consulted. ALL times are approx. ..................... ..................... ..................... ..................... ..................... ..................... ............... [facility] Consulted: Marita Ramos ..................... ..................... ..................... ..................... ..................... ..................... ............... Disposition: Jamie Ramos MD [address], [place], [address], [facility] 04/22/2024 08:15:29 05/03/2024 text/html CRC Nurse Triage [...] Hypertension, Anxiety Disorder, Rheumatoid ArthritisPMH Reviewed at 05/03/2024:54Allergies Reviewed at 05/03/2024 - :54Comments: Audit Clerks Supervisor verified the Pt.'s name//address and phone number. [...] ..................... ..................... ..................... ..................... ..................... ..................... ............... Business Unit Director Note From Cheyanne Wilson: [facility] makes pt contact. She is laying [...] in order to get around. Pt says [facility] visited her a week ago for the same thing and it has continued to get worse. She has no other complaints at this time. [facility] obtains vital signs and pt is [...] tests performed in comparison to the L. [facility] contacts [facility] and discusses the above. [facility] orders 30mg ketorolac IM for pt. [facility] administers 30mg ketorolac in the R deltoid and covers w/ an adhesive bandage. [facility] recommends pt continue w/ ice and Tylenol for pain and continue w/ elevation and limiting activity on the knee until she has her appt on Sunday. Pt is also encouraged to call back if necessary. [facility] is clear. Report completed by ROULA Wilson [id number]. [facility] Medication Orders: ketorolac 30 mg/mL injection solution: Administered ..................... ..................... ..................... ..................... ..................... ..................... ............... [facility] Consulted: Emely Dhillon ..................... ..................... ..................... ..................... ..................... ..................... ............... Disposition: Fulfilled EMELY DHILLON MD [address] [place] [address],[address], [place], [address], [employer] [facility] 05/03/2024 19:14:21 OBGyn Episode No OBEpisode recorded.
== END 2024-05-29 06:11 | disposition home or self-care (01) ==
LOC: CF 06:10
PROVIDERS: Visit Provider Internal Medicine
DX: M25.512 Pain in left shoulder (principal); Z98.890 Other specified postprocedural states
CPT/HCPCS: 64555; C1778; J2003

== ENCOUNTER 2024-05-29 10:18 | Outpatient (AMB) | payer OTHER, SELFPAY ==
[2024-05-29 10:30] VITALS: BP 108/46; PULSE 67; RESP 16; O2SAT 97
--- NOTE | 2024-05-29 10:30 | A.OFFVIS_ITS ---
Vital Signs 05/29/24 10:30 05/29/24 11:13 BP 108/46 L 117/61 Blood Pressure Location Lt brachial Lt brachial Position Sitting Sitting Respiration 16 16 Pulse 67 70 Pulse Source Pulse Oximeter Pulse Oximeter Pulse Oximetry (%) 97 96 Oxygen Delivery Method Room Air Room Air Intake Visit Reasons: Left suprascapular Sprint Scrap Charger Required: No Allergies cephalexin Allergy (Intermediate, Verified 05/29/24 10:31) Diarrhea Iodinated Contrast Media [IV CONTRAST] Allergy (Intermediate, Verified 05/29/24 10:31) DIFF BREATHING morphine [MORPHINE] Allergy (Intermediate, Verified 05/29/24 10:31) HIVES nabumetone [NABUMETONE] Allergy (Intermediate, Verified 05/29/24 10:31) HIVES sulfamethoxazole [From BACTRIM] Allergy (Intermediate, Verified 05/29/24 10:31) HIVES trimethoprim [From BACTRIM] Allergy (Intermediate, Verified 05/29/24 10:31) HIVES dicloxacillin Allergy (Unknown, Verified 05/29/24 10:31) Rash dyclonine Allergy (Unknown, Verified 05/29/24 10:31) Unknown propranolol [Inderal LA] Allergy (Unknown, Verified 05/29/24 10:31) unknown quetiapine [Seroquel] Allergy (Unknown, Verified 05/29/24 10:31) rash seafood Allergy (Unknown, Verified 05/29/24 10:31) Unknown Sulfa (Sulfonamide Antibiotics) Allergy (Unknown, Verified 05/29/24 10:31) hives amoxicillin [From Augmentin] Allergy (Verified 05/29/24 10:31) stomach pain clavulanic acid [From Augmentin] Allergy (Verified 05/29/24 10:31) stomach pain polyethylene glycol [From Golytely] Adverse Reaction (Severe, Verified 05/29/24 10:31) Hallucinations polyethylene glycol 3350 [From Golytely] Adverse Reaction (Severe, Verified 05/29/24 10:31) Hallucinations potassium chloride [From Golytely] Adverse Reaction (Severe, Verified 05/29/24 10:31) Hallucinations sodium [From Golytely] Adverse Reaction (Severe, Verified 05/29/24 10:31) Hallucinations sodium bicarbonate [From Golytely] Adverse Reaction (Severe, Verified 05/29/24 10:31) Hallucinations sodium chloride [From Golytely] Adverse Reaction (Severe, Verified 05/29/24 10:31) Hallucinations sodium sulfate [From Golytely] Adverse Reaction (Severe, Verified 05/29/24 10:31) Hallucinations doxycycline [DOXYCYCLINE] Adverse Reaction (Intermediate, Verified 05/29/24 10:31) NAUSEA & VOMITTING From INDERAL Allergy (Intermediate, Uncoded 05/29/24 10:31) RASH Codeine Sulfate Allergy (Unknown, Uncoded 05/29/24 10:31) Unknown Medication List - Last Reconciled 05/29/24 by Shannon Webb LPN albuterol sulfate 90 mcg/actuation (Ventolin HFA) 2 puffs inhalation Q4H PRN aripiprazole 10 mg PO DAILY ascorbic acid (vitamin C) (Vitamin C) 500 mg PO DAILY carbamazepine ER (Tegretol XR) 400 mg PO BID cholecalciferol (vitamin D3) PO diclofenac sodium 1% 1 g topical QID PRN diclofenac sodium 75 mg PO BID PRN dicyclomine 10 mg PO Q6H PRN docusate sodium 100 mg PO BID epinastine 0.05% drkelle ophthalmic (eye) estradiol 1 mg PO DAILY fexofenadine 180 mg PO BID fluticasone propion-salmeterol 500-50 mcg/dose 1 ea inhalation BID folic acid 1 mg PO DAILY gabapentin 800 mg PO TID ibuprofen 600 mg PO TID lactase 3,000 - 6,000 units (1 - 2 x 3,000 unit) PO TIDAC PRN levofloxacin 500 mg PO DAILY lidocaine 5% 1 patch topical DAILY lisinopril 20 mg PO DAILY lorazepam 1 mg PO DAILY PRN meclizine 25 mg PO QID melatonin 9 mg PO BEDTIME metformin 500 mg PO BID methotrexate sodium 15 mg (6 x 2.5 mg) PO QWEEK metronidazole 500 mg PO TID 10 days montelukast (Singulair) 10 mg PO BEDTIME multivitamin 1 tab PO DAILY multivitamin with folic acid 400 mcg (Daily-Maikel (with folic acid)) 1 tab PO DAILY omalizumab (Xolair) mg subcut Q2W omalizumab (Xolair) mg subcut Q2W ondansetron 4 mg PO Q8H PRN pantoprazole 40 mg PO BID prazosin 4 mg PO BEDTIME prednisone Take 3 tabs daily for 1 week, 2 tabs daily for 1 week, 1 tab daily for 1 week then stop risperidone (Risperdal) 3 mg PO BID risperidone 4 mg PO BEDTIME sertraline 25 mg PO DAILY sod sulf-pot chloride-mag sulf 1.479-0.188- 0.225 gram (Sutab) PO Per [facility] Gastroenterology instructions sumatriptan succinate 100 mg PO DAILY PRN Taltz Autoinjector (ixekizumab) 80 mg subcut Q4W NS topiramate 150 mg PO BID topiramate 50 mg PO BID trazodone mg PO umeclidinium 62.5 mcg/actuation (Incruse Ellipta) 1 inh inhalation DAILY valacyclovir 500 mg PO BID 7 days vitamin B complex (Vitamins B Complex capsule) 1 cap PO DAILY [wrist splint Wear nightly and as much as possible throughout the day] HPI HPI Left suprascapular Sprint: Details: Patient presents for scheduled procedure. Denies any recent cough, cold, infection, fever or other significant changes in medical history since last office visit. PFS Medical History Spinal stenosis TMJ (dislocation of temporomandibular joint) Migraine COPD (chronic obstructive pulmonary disease) Asthma Depression Anxiety Prediabetes Arthritis of right knee Umbilical hernia Chronic idiopathic constipation Surgical History History of shoulder surgery (~01/2024) History of carpal tunnel release Hx of colonoscopy History of esophagogastroduodenoscopy (EGD) Hx of hand surgery H/O eye surgery Hx of hysterectomy Family History Father Bone cancer Mother Diabetes Family/Other Family history of breast cancer Social History Household Members: None Housing: Apartment Do you presently have visiting nurse or other home services: Yes (nursing once a week, home health aid 4x week) Alcohol intake: current Alcohol intake frequency: does not drink Patient Tobacco Use Status: Former Tobacco user service: No Physical Exam Vital Signs: Last Vital Signs Pulse 70 05/29/24 11:13 Resp 16 05/29/24 11:13 BP 117/61 05/29/24 11:13 Pulse Ox 96 05/29/24 11:13 Oxygen Delivery Method Room Air 05/29/24 11:13 Office Procedures Details: Peripheral Nerve Stimulation Temporary Lead Placement, Ultrasound-Guided, Suprascapular Nerve, Left ? After the risks, benefits and alternatives were discussed with the patient and informed consent was obtained, patient was placed in the sitting position and padded to foster comfort. Appropriate skin and bony landmarks were identified using ultrasound, including the left suprascapular notch. The skin overlying the needle entry site was prepped and draped in sterile fashion. After identifying and marking the intended target along the course of the suprascapular nerve, the skin around the planned entry point and the subcutaneous tissues were injected with local anesthetic. An introducer needle and stimulating probe were assembled, inserted and advanced along the intended course of the suprascapular nerve, taking care to maintain the proper depth of insertion as the introducer was advanced under ultrasound guidance. Bony contact was achieved with the scapula and maintained throughout. The introducer needle was delivered to a location in proximity to the nerve. Multiple stimulation parameters were used to deliver stimulation to the suprascapular nerve in concert with stimulating at multiple positions around the nerve. Nerve target acquisition was confirmed noting generation of sensory and mild motor effects (paresthesia, muscle tension, etc) in the shoulder and proximal arm; corresponding to the distribution of the suprascapular nerve. Various electrical parameter combinations were tested, and the lead location was adjusted (physically relocated under image guidance) until the patient indicated shoulder paresthesia and tension overlapping the distribution of the patient?s typical region of pain. The stimulating probe was removed from the introducer and a percutaneous lead was guided through the needle and delivered to a location in similar proximity to the nerve. Final location was verified with electrical stimulation and documented. The introducer needle was removed, and the exposed end of the percutaneous lead was attached to an external stimulator unit. Various elec trical parameter combinations were again tested until the patient indicated paresthesia and muscle tension overlapping the distribution of the patient?s typical region of pain. After confirming that lead impedance was in the normal range, the external unit was detached, the needle was removed, and the lead was anchored at the skin. The needle entry site was occluded with dermabond. The lead was threaded into the connector block and electrical continuity and desired patient response was confirmed. The connector block was attached to the external stimulator unit. The site was covered with a sterile occlusive dressing.? A final image was taken to document final placement. The patient was observed for stability of vital signs and comfort. Sprint PNS Device: Sprint PNS Device [id number] Percutaneous Peripheral Neuroelectrode Procedure: 24765 - Percutaneous Peripheral Neuroelectrode Procedure code (CPT) selection complete Office Meds lidocaine HCl 10 mg/mL (1 %) injection solution Performing Provider: Vladislav Esteban MD Performing Location: [facility] Administered by: Shannon Webb LPN on 05/29/24 10:51 Dose Route Admin Location Dispensed Lot Number Expiration Date NDC Intertype Operator 5 mL subcut 5 mL Assessment & Plan Assessment & Plan (1) Left shoulder pain: Code(s): M25.512 - Pain in left shoulder Category: Medical (2) History of shoulder surgery: Onset Date: ~01/2024 Code(s): Z98.890 - Other specified postprocedural states Category: Surgical Plan Patient is status post temporary left suprascapular nerve stimulator placement. Patient tolerated procedure well and was discharged home in stable condition with discharge instructions. All questions were answered. We will follow-up via telephone or in clinic to assess response to therapy. A follow-up appointment was made during today's visit. Orders: Orders US guide needle placement Today Farheen Thacker APRN, ASSEMBLY MACHINE TENDER M25.512 - Pain in left shoulder AMB Sprint PNS Today Vladislav Esteban MD M25.512 - Pain in left shoulder, Z98.890 - Other specified postprocedural states Coding Level of Care Code Procedure Only Diagnoses Left shoulder pain M25.512 History of shoulder surgery Z98.890 CPT Codes Sprint PNS - Sprint PNS Device: Sprint PNS Device ([id number]) Sprint PNS - SPRINT: 09145 - Percutaneous Peripheral Neuroelectrode ([id number]) Implantable Device Implantable Device Implantable Devices Qty Intertype Operator Implant Date Expiration Date Analgesic PENS system 1 [employer] 05/29/24 11/04/25
[2024-05-29 11:13] VITALS: BP 117/61; PULSE 70; RESP 16; O2SAT 96
--- OUTSIDE RECORDS SUMMARY | 2024-05-29 12:14 | XMS_ITS | Encounter Summary ---
Author Organization [facility] Address [address] [place] [address] Care Team Providers Care Fire Officer Name Role Phone Clare Wilson Primary Care Provider [phone] Reason for Visit * Auth/Cert (Routine) Specialty Diagnoses / Procedures Referred By Contshanna t Referred To Contact Diagnoses Chronic left shoulder pain Chronic left shoulder pain [M25.512, G89.29] Procedures MS SHLDR ARTHROSCOP,SURG,W/ROTAT CUFF REPR MS SHLDR ARTHROSCOP,EXTEN DEBRIDE MS REPAIR BICEPS LONG TENDON ARTHROSCOPY, SHOULDER, SURGICAL;?? WITH ROTATOR CUFF REPAIR ARTHROSCOPY, SHOULDER, SURGICAL;?? DEBRIDEMENT, EXTENSIVE TENODESIS OF LONG TENDON OF BICEPS Luis Minor MD [address] [place] [address] Phone: tel: fax: Referral ID Status Reason Start Date Expiration Date Visits Re quested Visits Authorized [id number] 10/03/2023 99 99 Encounter Details Date Type [...] Description 08/08/2024 1:45 PM EDT Procedure visit [facility] [address] [place] [address] Sandy Snyder DO [address] [place] [address] 10/02/2024 1:45 PM EDT Follow-Up [address] [address] Luis Minor MD [address] [place] [phone] documented as of this encounter Visit Diagnoses Diagnosis Shoulder pain- Primary Pain in joint, shoulder region documented in this encounter Admitting Diagnoses Diagnosis Shoulder pain Pain in joint, shoulder region documented in this encounter Care Teams Fire Officer Relationship Specialty Start Date End Date Clare Wilson [address] [place] [phone] PCP - General Family Medicine 09/10/23 documented as of this encounter
--- OUTSIDE RECORDS SUMMARY | 2024-05-29 12:14 | XMS_ITS | Referral Summary ---
Author Organization [facility] Address [address] [place] [address] Care Team Providers Care Cosmetic Consultant Name Role Phone SteveClare Annemarie Primary Care Provider [phone] Encounters Date Type Department Care Team Description 04/03/2024 2:00 [place] [address] Luis Minor MD Adhesive capsulitis of left shoulder (Primary Dx) 03/20/2024 [place] [address] Telephone Intake, Staff PAC Appt Request - Established_Iván 03/05/2024 Telephone [place] [phone] Telephone Intake, Staff PAC Dr. 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 Vertigo 12/05/2021 Trigger finger of thumb 11/10/2021 Overview (11/10/2021): Added automatically from request for surgery [id number] Trigger index finger of left hand 11/10/2021 Overview (11/10/2021): Added automatically from request for surgery [id number] COVID-19 virus infection 11/25/2020 Overview (12/05/2021): Last [...] Description 08/08/2024 1:45 PM EDT Procedure visit [address] [address] Sandy Snyder DO [address] [place] [address] 10/02/2024 1:45 PM EDT Follow-Up [address] [address] Luis Minor MD [address] [place] [phone] Medical Devices Implanted Type Area Furniture Decals Inspector Device Identifier Shelf Expiration Date Model / Serial / Lot Jay Suture Double Loaded With White/Blue White/Black Suturetape Fibertrak Rc - [id number] Implanted:Qty: 1 on 04/02/2020 by Luis Minor MD at [facility] Implant Right: Shoulder [employer] 01/11/2023 AR-3632 / / [id number] Insurance [facility] [place] [id number] Advance Directives * Full Code (Latest Code Status on File) Date Activated Date Inactivated Comments 04/02/2020 10:29 AM 04/02/2020 6:36 PM Healthcare Agents on File Name Relationship Healthcare Agent [facility] p Communication Pilar Olvera Sister Next of Kin [phone] (Kamala griffin) Care Teams Cosmetic Consultant Relationship Specialty Start Date End Date Clare Wilson [address] [place] [phone] PCP - General Family Medicine 09/10/23
--- OUTSIDE RECORDS SUMMARY | 2024-05-29 12:14 | XMS_ITS | Clinical Summary ---
Author Organization [facility] Address [address] [place] [address] Care Team Providers Care Business Analytics Director Name Role Phone Lexa Wilsonsun Sharpe Primary Care Provider [phone] Allergies Active Allergy Reactions Criticality Noted Date [...] mellitus 12/05/2021 Hearing loss 12/05/2021 Overview (12/05/2021): [facility] audiology History of total hysterectom y with bilateral salpingo-oophorectomy (BSO) 12/05/2021 Lower urinary tract infectious disease 2 Menopausal syndrome 12/05/2021 Obesity 12/05/2021 Osteoarthritis 12/05/2021 Pelvic pain in female 12/05/2021 Pernicious anemia 12/05/2021 Posttraumatic stress disorder 12/05/2021 Respiratory abnormalities 12/05/2021 Shoulder pain 12/05/2021 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 06/16/2013 Overview (12/05/2021): Asthma Asthma Last Assessment & Plan: No acute symptoms, continue outpatient medications Seasonal allergic rhinitis 06/16/2013 Overview (12/05/2021): Allergic rhinitis Encounters Date Type Department Care Team Description 04/03/2024 2:00 [place] [address] Luis Minor MD Adhesive capsulitis of left shoulder (Primary Dx) 03/20/2024 [place] [address] Telephone Intake, Staff PAC Appt Request - Established_Iván 03/05/2024 [place] [address] Telephone Intake, Staff PAC Dr. Minor_ Left [...] Description 08/08/2024 1:45 PM EDT Procedure visit [address] [address] Sandy Snyder DO [address] [place] [address] 10/02/2024 1:45 PM EDT Follow-Up [address] [address] Luis Minor MD [address] [place] [address] Health Maintenance Due Date Last Done Comments [...] history exists Medical Devices Implanted Type Area Grinder Operator Surface Tool Device Identifier Shelf Expiration Date Model / Serial / Lot [place] Suture Double Loaded With White/Blue White/Black Suturetape [employer]ert[employer] Rc - [id number] Implanted:Qty: 1 on 04/02/2020 by Luis Minor MD at [facility] Implant Right: Shoulder [employer] 01/11/2023 AR-3632 / / [id number] Insurance [facility] [place] [id number] Advance Directives * Full Code (Latest Code Status on File) Date Activated Date Inactivated Comments 04/02/2020 10:29 AM 04/02/2020 6:36 PM Healthcare Agents on File Name Relationship Healthcare Agent Relationshi p Communication Pilar Olvera Sister Next of Kin [phone] (M obronald) Care Teams Business Analytics Director Relationship Specialty Start Date End Date Clare Wilson [address] [place] [phone] PCP - General Family Medicine 09/10/23
--- OUTSIDE RECORDS SUMMARY | 2024-05-29 12:14 | XMS_ITS | Encounter Summary ---
Author Organization [facility] Address [address] [place] [address] Care Team Providers Care Dynamite Cartridge Crimper Name Role Phone Clare Wilson Annemarie Primary Care Provider [phone] Encounter Details Date Type Department Care Team (Late Contact Info) Description 01/16/2024 Orders Only [facility] Surgery [address] [place], [place] [phone] Jesus Gillis MD [address] [place] [address] Social History Tobacco Use Types Packs/Day Years [...] Description 08/08/2024 1:45 PM EDT Procedure visit [facility] Medicine [address] [place], [place] [phone] Sandy Snyder DO [address] [place] [address] 10/02/2024 1:45 PM EDT Follow-Up [facility] Sports Medicine [address] [place] [address] Luis Minor MD [address] [place] [id number] documented as of this encounter Visit Diagnoses Not on filedocumented in this encounter Care Teams Dynamite Cartridge Crimper Relationship Specialty Start Date End Date Clare Wilson [address] [place] [phone] PCP - General Family Medicine 09/10/23 documented as of this encounter
== END 2024-05-29 11:21 | disposition home or self-care (01) ==
LOC: HO.PMCPRC 10:18
PROVIDERS: PCP Family Medicine; Visit Provider Internal Medicine
DX: M25.512 Pain in left shoulder (principal); Z98.890 Other specified postprocedural states
CPT/HCPCS: 64555

== ENCOUNTER 2024-06-10 12:59 | Outpatient (AMB) | payer OTHER, SELFPAY ==
--- NOTE | 2024-06-10 12:59 | A.OFFVIS_ITS ---
Vital Signs 06/10/24 13:09 Height 5 ft 1 in Weight 174 lb BMI 32.9 BP 168/70 H Blood Pressure Location Lt brachial Position Sitting Pulse 81 Pulse Source Pulse Oximeter Pulse Oximetry (%) 97 Oxygen Delivery Method Room Air Intake Visit Reasons: s/p Left suprascapular Sprint Intake Note: Pain today 05/22 Branch Retail Executive Required: No Accompanied by: RESERVES CLERK Allergies cephalexin Allergy (Intermediate, Verified 06/10/24 13:09) Diarrhea Iodinated Contrast Media [IV CONTRAST] Allergy (Intermediate, Verified 06/10/24 13:09) DIFF BREATHING morphine [MORPHINE] Allergy (Intermediate, Verified 06/10/24 13:09) HIVES nabumetone [NABUMETONE] Allergy (Intermediate, Verified 06/10/24 13:09) HIVES sulfamethoxazole [From BACTRIM] Allergy (Intermediate, Verified 06/10/24 13:09) HIVES trimethoprim [From BACTRIM] Allergy (Intermediate, Verified 06/10/24 13:09) HIVES dicloxacillin Allergy (Unknown, Verified 06/10/24 13:09) Rash dyclonine Allergy (Unknown, Verified 06/10/24 13:09) Unknown propranolol [Inderal LA] Allergy (Unknown, Verified 06/10/24 13:09) unknown quetiapine [Seroquel] Allergy (Unknown, Verified 06/10/24 13:09) rash seafood Allergy (Unknown, Verified 06/10/24 13:09) Unknown Sulfa (Sulfonamide Antibiotics) Allergy (Unknown, Verified 06/10/24 13:09) hives amoxicillin [From Augmentin] Allergy (Verified 06/10/24 13:09) stomach pain clavulanic acid [From Augmentin] Allergy (Verified 06/10/24 13:09) stomach pain polyethylene glycol [From Golytely] Adverse Reaction (Severe, Verified 06/10/24 13:09) Hallucinations polyethylene glycol 3350 [From Golytely] Adverse Reaction (Severe, Verified 06/10/24 13:09) Hallucinations potassium chloride [From Golytely] Adverse Reaction (Severe, Verified 06/10/24 13:09) Hallucinations sodium [From Golytely] Adverse Reaction (Severe, Verified 06/10/24 13:09) Hallucinations sodium bicarbonate [From Golytely] Adverse Reaction (Severe, Verified 06/10/24 13:09) Hallucinations sodium chloride [From Golytely] Adverse Reaction (Severe, Verified 06/10/24 13:09) Hallucinations sodium sulfate [From Golytely] Adverse Reaction (Severe, Verified 06/10/24 13:09) Hallucinations doxycycline [DOXYCYCLINE] Adverse Reaction (Intermediate, Verified 06/10/24 13:09) NAUSEA & VOMITTING From INDERAL Allergy (Intermediate, Uncoded 05/29/24 10:31) RASH Codeine Sulfate Allergy (Unknown, Uncoded 05/29/24 10:31) Unknown HPI Comments Details: The patient is a 63-year-old female presenting with a postoperative follow-up for left suprascapular peripheral nerve stimulator (PNS) placement. One week post-procedure, the patient reports progressive improvement in shoulder mobility , specifically an increased ability to lift her left arm. Despite this progress, she continues to experience limitations in flexibility, particularly in movements behind her back, while overhead activities remain pain-free. The patient reports her current pain level as 4 out of 10. Guidance was provided to incrementally adjust the stimulator setting from 43 to 46, with a target to continue adjust stimulation to reach optimal pain relief and function improvement. The patient confirms having reached a setting of 46 with positive paresthesia and good tolerance without overstimulation symptoms. Patient reports her RESERVES CLERK will be available next week for dressing changes. Denies any recent cough, cold, infection, fever or any significant changes in medical history since last office visit. The dressing was removed today. Lead insertion site is clean, dry, intact, no redness or swelling, no pathological discharge. Area was cleansed with Chloraprep and covered with tegaderm Sprint dressing. Past Procedures: 05/29/24: Left suprascapular Sprint PNS-60% ongoing pain relief 04/21/24:Diagnostic left suprascapular nerve block-100% pain for 4 days PRIOR: Patient is a 63 years old female with history of arthritis, spinal stenosis, anxiety and depression, recent left shoulder surgery 01/2024 at [facility], right carpal tunnel release 09/2022, COPD, asthma, presents today for initial evaluation of left elbow pain and left shoulder pain. She was referred to our office by [facility]. Patient reports cortisone injections are no longer effective and she is interested in alternative treatment options. She resides in [facility] and is accompanied by RESERVES CLERK staff. Patient reports global left shoulder and elbow pain with localized tenderness to anterior and posterior aspects of shoulder and lateral aspect of elbow without any swelling, redness or warmth. Pain affects her daily activities and functioning, mood, sleep, social interactions and quality of life. Denies any neck pain, fever or chills, dizziness, chest pain, shortness of breath, numbness or tingling, bladder or bowel dysfunction or saddle anesthesia. Location: Left shoulder and left elbow Duration: Chronic pain >1 year, recent left shoulder surgery at [facility] Characteristics of symptom or complaint: aching, sharp, dull,tingling Aggravating or associated factors: Movements, ROM, lifting, pulling, overhead reaches, cold weather Relieving factors: Rest, avoiding using left arm, elevation, Tylenol, NSAID, gabapentin Treatment: Injections at Orthopedics, recent left shoulder surgery at [facility] Medical History Spinal stenosis TMJ (dislocation of temporomandibular joint) Migraine COPD (chronic obstructive pulmonary disease) Asthma Depression Anxiety Prediabetes Arthritis of right knee Umbilical hernia Chronic idiopathic constipation Surgical History History of shoulder surgery (~01/2024) History of carpal tunnel release Hx of colonoscopy History of esophagogastroduodenoscopy (EGD) Hx of hand surgery H/O eye surgery Hx of hysterectomy Family History Father Bone cancer Mother Diabetes Family/Other Family history of breast cancer Social History Household Members: None Housing: Apartment Do you presently have visiting nurse or other home services: Yes (nursing once a week, home health aid 4x week) Alcohol intake: current Alcohol intake frequency: does not drink Patient Tobacco Use Status: Former Tobacco user service: No Review of Systems Const Details: - Musculoskeletal: Reports limitations in reaching behind with good overhead mobility All systems reviewed & are unremarkable except as noted in HPI and below Physical Exam General: Appears afebrile. Alert and oriented. Mood and affect appropriate. Follows and participates in conversation appropriately. Respiratory effort is unlabored. No cough. Able to transition from sit to stand unassisted. Uses walker with seat for ambulation. Ambulates with bilaterally normal heel strike and toe off. Lead Insertion Site: Lead insertion site looks clean, dry, intact.? No pathological discharge, no swelling and no erythema.? Lead site dressing were changed today in the clinic. Positive paresthesia at 46 on the left. Results Reviewed Results Reviewed: XR ELBOW, LEFT 03/12/23 CLINICAL INFORMATION: Pain in unspecified elbow. COMPARISON: None available. TECHNIQUE: AP, lateral, and oblique views of the left elbow. FINDINGS: Small rounded calcifications in the superficial soft tissues. Alignment preserved. Mild spurring along the dorsal aspect of the olecranon. Mild degenerative changes with spurring along the ventral aspect of the elbow. No significant joint effusion. IMPRESSION: 1. Mild degenerative changes. 2. Recommend follow up images in 10-14 days if fracture is suspected. Assessment & Plan Assessment & Plan (1) Left shoulder pain: Code(s): M25.512 - Pain in left shoulder Category: Medical (2) History of shoulder surgery: Onset Date: ~01/2024 Code(s): Z98.890 - Other specified postprocedural states Category: Surgical Plan Patient is one week status post temporary left suprascapular nerve stimulator p lacement. Patient reports improved range of motion, mobility and functioning. Patient will continue to monitor and adjust his stimulation as needed with follow up in one week. A return visit has been arranged to coincide with the RESERVES CLERK/home health aide's availability to ensure proper dressing change techniques are taught, reinforcing the maintenance of hygiene and preventing device displacement. The patient has been educated on the necessary precautions with device care and dressing changes. All questions were answered and the patient agreed with the plan. Follow up in 1 week for Sprint dressing change and sooner if needed. Patient was informed and verbally consented to the use of an ambient scribe for clinic note documentation during this visit. Patient Instructions: We discussed the importance of gradual adjustment of the suprascapular PNS, aiming to increment the setting progressively to achieve optimal pain relief without discomfort. The patient understands how to carefully manage dressing changes, ensuring cleanliness and to prevent device displacement, and the stimulator adjustments. Follow-up guidance was provided, anticipating the return of her home appliance washing machine mechanic next week for practical assistance and instruction. Coding Level of Care Code Est Pt Level 3 (43943) Complex EM visit Add On G2211 Diagnoses Left shoulder pain M25.512 History of shoulder surgery Z98.893
[2024-06-10 13:09] VITALS: BP 168/70; PULSE 81; O2SAT 97; BMI 32.9
--- OUTSIDE RECORDS SUMMARY | 2024-06-10 14:53 | XMS_ITS | Encounter Summary ---
Author Organization [facility] Address [address] [place] [address] Care Team Providers Care Brainer Name Role Phone Clare Wilson Primary Care Provider [phone] Reason for Visit * Auth/Cert (Routine) Specialty Diagnoses / Procedures Referred By Contshanna t Referred To Contact Diagnoses Chronic left shoulder pain Chronic left shoulder pain [M25.512, G89.29] Procedures WI SHLDR ARTHROSCOP,SURG,W/ROTAT CUFF REPR WI SHLDR ARTHROSCOP,EXTEN DEBRIDE WI REPAIR BICEPS LONG TENDON ARTHROSCOPY, SHOULDER, SURGICAL;?? WITH ROTATOR CUFF REPAIR ARTHROSCOPY, SHOULDER, SURGICAL;?? DEBRIDEMENT, EXTENSIVE TENODESIS OF LONG TENDON OF BICEPS Luis Minor MD [address] [place] [address] Phone: tel: fax: Referral ID Status Reason Start Date Expiration Date Visits Re quested Visits Authorized [id number] 10/03/2023 99 99 Encounter Details Date Type [...] Description 08/08/2024 1:45 PM EDT Procedure visit [facility] [address] [place] [address] Sandy Snyder DO [address] [place] [address] 10/02/2024 1:45 PM EDT Follow-Up [address] [address] Luis Minor MD [address] [place] [address] documented as of this encounter Visit Diagnoses Diagnosis Shoulder pain- Primary Pain in joint, shoulder region documented in this encounter Admitting Diagnoses Diagnosis Shoulder pain Pain in joint, shoulder region documented in this encounter Care Teams Brainer Relationship Specialty Start Date End Date Clare Wilson [address] [place] [phone] PCP - General Family Medicine 09/10/23 documented as of this encounter
--- OUTSIDE RECORDS SUMMARY | 2024-06-10 14:53 | XMS_ITS | Data Portability ---
Author Organization [place] - [facility], Allergy Address [address] [place] [phone] Assessment Encounter Date Assessment Date Assessment LastModified [...] recorded. Referral speech therapy referral 2024 025 [facility], [address] [place] [address] [place], [address], 04/29/2024 10:52:29 Procedures None recorded. Surgeries None recorded. Imaging None recorded. Medication Orders None recorded. Patient TargetsNo targets recorded. Patient InstructionsNo instructions recorded. Reason for Referral Referring Physician: Farheen Whitaker ot, Otolaryngology, Encounter Date: 04/25/2024 Results [...] Address Organization Details Recorded Time Bilateral tinnitus 92029392688 02 Active 2015 Tinnitus, bilateral ; Note: Date Diagnosed : 06/22/2015 2:10 PM (H93.13) Not Available [facility] 4 02:46:51 Otitis externa of bilateral ears 86249007178 95343 Active 2015 Other otitis externa, bilateral ; Note: Date Diagnosed : 05/12/2015 12:59 AM (H60.8X3) Not Available [facility] 4 02:46:49 Dizziness and giddiness 553325790 Active 2015 Dizziness and giddiness ; Note: Date Diagnosed : 06/22/2015 2:10 PM (R42) Not Available [facility] 4 02:46:50 Pain of temporoma ndibular joint 26471090 Active 2015 Arthralgi a of temporoma ndibular joint; Note: Date Diagnosed : 05/12/2015 12:58 AM (M26.62) Not Available [facility] 4 02:46:52 Impacted cerumen in right ear 99607177506 76532 Active 2017 Impacted cerumen, right ear; Note: Date Diagnosed : 03/06/2017 4:03 PM (H61.21) Not Available [facility] 4 02:46:52 Sensorine ural hearing loss of bilateral ears 908726581 Active 2015 Sensorine ural hearing loss, bilateral ; Note: Date Diagnosed : 06/22/2015 2:10 PM (H90.3) Not Available [facility] 4 02:46:54 Impacted cerumen of bilateral ears 95309243523 [address] Active 2016 Impacted cerumen, bilateral ; Note: Date Diagnosed : 08/08/2016 2:34 PM (H61.23) Not Available [facility] 4 02:46:56 Diffuse otitis externa 76582077 Active 2018 Diffuse otitis externa, right ear; Note: Date Diagnosed : 02/25/2018 4:53 PM (H60.311) Not Available [facility] 4 02:46:56 Nasal congestio n 40771645 Active 2023 JUAN PABLO KABA MD [address] [facility],[place] [address], [place], [address] , [place] - [facility] 4 21:32:56 Foreign body in right ear 47026292957 974239 Active 2023 JUAN PABLO KABA MD [address] [facility],[place] [address], [place], [address] , [place] - [facility] 4 21:33:01 Chronic hoarsenes s 68961115871 05 Active 2024 FARHEEN ARMSTRONG PA-C [address] [place] [address],[place] [address], [place], [address] , [place] - [facility] 5 11:50:32 Gastroeso phageal reflux disease without esophagit is 438977312 Active 2024 FARHEEN ARMSTRONG PA-C [address] [facility],[place] [address], [place], [address] , [place] - [facility] 5 12:33:50 Problem Notes None recorded. Procedures Surgical History Date Name Laterality Status Provider Name and Address Organization Details Recorded Time 5 FOL_DP completed FARHEEN ARMSTRONG PA-C [address] [facility], [place], [address], [facility] - [facility] 04/25/2024 12:31:13 4 Removal of foreign body from ear canal completed JUAN PABLO KABA MD [address] [facility], [place], [address], [facility] - [facility] 10/07/2023 21:35:30 Imaging Results Imaging Date [...] oil oral 2015 active Medicati on ID: [id number] D uration Value: 23 Brand Name: mineral [...] mg tablet 2015 active Medicati on ID: [id number] D uration Value: 5 Brand Name: naproxen [...] mg tablet 2015 active Medicati on ID: [id number] D uration Value: 30 Brand Name: ranitidi [...] mg tablet 02/25 completed Medicati on ID: [id number] D uration Value: 30 Brand Name: sertrali ne Send Method: E-Prescr ibed Sub s Allowed: subs OK Medic ationGen ericName : sertrali ne Not Available Not Available Not Available prednison e 5 mg tablet active Not Available Not Available Not Available quetiapin e 200 mg tablet 02/25 completed Medicati on ID: [id number] D uration Value: 30 Brand Name: quetiajc [...] mg tablet 03/07 completed Medicati on ID: [id number] D uration Value: 10 Prescri bed By [...] 2 hr 2015 active Medicati on ID: [id number] D uration Value: 30 Brand Name: carbamaz [...] mg capsule 2015 active Medicati on ID: [id number] D uration Value: 12 Brand Name: progeste [...] mg capsule 02/25 completed Medicati on ID: [id number] D uration Value: 30 Brand Name: gabapent [...] mg tablet 2015 active Medicati on ID: [id number] D uration Value: 30 Brand Name: diazepam Send Method: E-Prescr ibed Sub s Allowed: subs OK Medic ationGen ericName : diazepam Not Available Not Available Not Available amoxicill in 875 mg-potass ium clavulana te 125 mg tablet 05/29 completed Medicati on ID: [id number] D uration Value: 20 Reason: () Brand [...] ous solution 2015 active Medicati on ID: [id number] D uration Value: 28 Brand Name: Xolair [...] n capsules 2015 active Medicati on ID: [id number] D uration Value: 30 Brand Name: Spiriva [...] mg capsule 2015 active Medicati on ID: [id number] D uration Value: 20 Brand Name: butalbit [...] Updated DateTime 04/25/2024 154.94 cm 32.7 kg/m2 47499.48 g Saima Morejon [place] - [facility] 04/25/2024 11:00:15 Social History None recorded. Functional Status None recorded. Mental Status None recorded. Family History Relationship Description Onset Age of this Age Resolved Age Notes LastModified by Organization Details LastModified Time Father No current problems or disability [email or web address] Not available 09/13 21:28:46 Mother No current problems or disability [email or web address] Not available 09/13 21:28:46 Medical History Condition Response Anxiety Y Migraines Y Hypertension Y Depression Y Asthma Y Gynecological HistoryNo gynecological history recorded. Obstetrics History GPAL:G 0 P 0 0 0 0 Past Encounters Encounter ID Performer Location Encounter Start Date Encounter Closed Date Diagnosis/Indication Diagnosis SNOMED-CT Code Diagnosis ICD10 Code Diagnosis Note [id number] JUAN PABLO KABA MD [facility] on [address] [place] [address] 10/02/2023 09:52:16 10/02/2023 12:00:59 Foreign body in right ear 5789270469 6688552 T16.1XXA Nasal congestion 9194473 0 R09.81 63-year-ol d female presents today [...] her hearing. She may follow-up as needed. [id number] SULEMAN SCHULTZ MD [facility] [address] [address] 04/25/2024 10:31:44 04/25/2024 11:53:14 Chronic hoarseness 3886068273 105 R49.0 Gastroesop hageal reflux disease without esophagitis 054293603 K21.9 Health Concerns Section Related Observation LastModified by Organization Detai ls LastModified Time None Recorded Concern Status LastModified by Organization Details LastModified Time None Recorded Advance Directives Directive None Recorded Payers Encounter Date Sequence Insurance Name Policy Number Policy Valdez Covered Member ID Valdez Member ID Guarantor Name 10/02/2023 1 [facility] - DOS ON OR AFTER 2022 - MEDICARE [place]/ADV ANTAGE - PPO) Elizabeth Huang [id number] Elizabeth Huang 04/25/2024 1 [facility] - DOS ON OR AFTER 2022 - [place]V ANTAGE - [place]PO) Elizabeth Huang [id number] Elizabeth Huang Notes Date Note Type Note [...] No epistaxis. JUAN PABLO KABA MD [address] [facility],[address], [address], [place] - [facility] 10/07/2023 21:36:00 04/25/2024 text/html 63 year [...] that she is prediabetic. SULEMAN SCHULTZ MD [address] [place] [address],[address], [address], [place] - [facility] 04/25/2024 16:52:12 OBGyn Episode No OBEpisode recorded.
--- OUTSIDE RECORDS SUMMARY | 2024-06-10 14:53 | XMS_ITS | Referral Summary ---
Author Organization [facility] Address [address] [place] [address] Care Team Providers Care Chemical Manager Name Role Phone Clare Wilson Annemarie Primary Care Provider [phone] Encounters Date Type Department Care Team Description 04/03/2024 2:00 [place] [address] Luis Minor MD Adhesive capsulitis of left shoulder (Primary Dx) 03/20/2024 Telephone [place] [phone] Telephone Intake, Staff PAC Appt Request - Established_Iván from Last 3 Months Allergies Active Allergy [...] (11/10/2021): Added automatically from request for surgery [id number] Trigger index finger of left hand 11/10/2021 Overview (11/10/2021): Added automatically from request for surgery [id number] COVID-19 virus infection 11/25/2020 Overview (12/05/2021): Last [...] risperidone, and prazosin as prescribed. Dr Renae Wallernet Asthma 06/16/2013 Overview (12/05/2021): Asthma Asthma Last [...] Description 08/08/2024 1:45 PM EDT Procedure visit [address] [address] Sandy Snyder DO [address] [place] [address] 10/02/2024 1:45 PM EDT Follow-Up [address] [address] Luis Minor MD [address] [place] [address] Medical Devices Implanted Type Area Face Hardener Device Identifier Shelf Expiration Date Model / Serial / Lot [place] Suture Double Loaded With White/Blue White/Black Suturetape [employer] - [id number] Implanted:Qty: 1 on 04/02/2020 by Luis Minor MD at [facility] Implant Right: Shoulder [employer] 01/11/2023 [id number] / / [id number] Insurance [facility] [place] [id number] Advance Directives * Full Code (Latest Code Status on File) Date Activated Date Inactivated Comments 04/02/2020 10:29 AM 04/02/2020 6:36 PM Healthcare Agents on File Name Relationship Healthcare Agent [facility] p Communication Pilar Olvera Sister Next of Kin [phone] (Kamala griffin) Care Teams Chemical Manager Relationship Specialty Start Date End Date Clare Wilson [address] [place] [phone] PCP - General Family Medicine 09/10/23
--- OUTSIDE RECORDS SUMMARY | 2024-06-10 14:53 | XMS_ITS | Clinical Summary ---
Author Organization [facility] Address [address] [place] [address] Care Team Providers Care Family Service Aide Name Role Phone Lexa Wilsonsun Sharpe Primary Care Provider [phone] Allergies Active Allergy Reactions Criticality Noted Date [...] mellitus 12/05/2021 Hearing loss 12/05/2021 Overview (12/05/2021): [facility] audiology History of total hysterectom y with bilateral salpingo-oophorectomy (BSO) 12/05/2021 Lower urinary tract infectious disease 2 Menopausal syndrome 12/05/2021 Obesity 12/05/2021 Osteoarthritis 12/05/2021 Pelvic pain in female 12/05/2021 Pernicious anemia 12/05/2021 Posttraumatic stress disorder 12/05/2021 Respiratory abnormalities 12/05/2021 Shoulder pain 12/05/2021 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 Dr Macdonald [facility] Asthma 06/16/2013 Overview (12/05/2021): Asthma Asthma Last Assessment & Plan: No acute symptoms, continue outpatient medications Seasonal allergic rhinitis 06/16/2013 Overview (12/05/2021): Allergic rhinitis Encounters Date Type Department Care Team Description 04/03/2024 2:00 [place] [address] Luis Minor MD Adhesive capsulitis of left shoulder (Primary Dx) 03/20/2024 [place] [address] Telephone Intake, Staff PAC Appt Request - Established_Iván from Last 3 Months Family History Medical [...] Description 08/08/2024 1:45 PM EDT Procedure visit [address] [address] Sandy Snyder DO [address] [place] [id number] 10/02/2024 1:45 PM EDT Follow-Up [address] [address] Luis Minor MD [address] [place] [id number] Health Maintenance Due Date Last Done Comments [...] history exists Medical Devices Implanted Type Area Batch Blender Device Identifier Shelf Expiration Date Model / Serial / Lot Berne Suture Double Loaded With White/Blue White/Black Suturetape [employer] - [id number] Implanted:Qty: 1 on 04/02/2020 by Luis Minor MD at [facility] Implant Right: Shoulder [employer] 01/11/2023 [id number] / / [id number] Insurance [facility] [place], [place] [id number] Advance Directives * Full Code (Latest Code Status on File) Date Activated Date Inactivated Comments 04/02/2020 10:29 AM 04/02/2020 6:36 PM Healthcare Agents on File Name Relationship Healthcare Agent Relationshi p Communication Pilar Olvera Sister Next of Kin [phone] (Kamala griffin) Care Teams Family Service Aide Relationship Specialty Start Date End Date Clare Wilson [address] [place] [phone] PCP - General Family Medicine 09/10/23
--- OUTSIDE RECORDS SUMMARY | 2024-06-10 14:53 | XMS_ITS | Data Portability ---
Author Organization [facility] [employer] Address [address] [place] [address] Care Team Providers Care Parking Technician Name Role Phone HIM CCA OTHER PONCHO BAHENA Primary Care Provider [phone] Assessment Encounter Date Assessment Date Assessment LastModified by Organization Details LastModified Time 04/13/2024 04/13/2024 I have reviewed and agree with the assessment and plan as documented by the food services manager. I provided real time medical direction for this encounter and was immediately available to provide additional phone based assistance as needed. History as noted by food services manager. Pt with history of COPD, ex smoker, [...] Assessment and Plan as documented by the Animal Anatomy Teacher. Patient given the opportunity to ask questions. Our service contacted for an assessment of: Palpitations As per above, patient with a history of excessive caffeine intake and generalized anxiety disorder. Calls this service for concern of racing heart rate after stating she had excessive caffeine intake. Denies dyspnea on exertion and shortness of breath. Per food services manager on the scene, vital signs are stable [...] mental status [email or web address] Not available 04/21/2024 20:32:44 05/31/2024 05/31/2024 I have reviewed and agree with the assessment and plan as documented by the food services manager. I provided real-time medical direction for this encounter and was immediately available to provide additional phone-based assistance as needed. HPI: 63 F presenting with disconnected nerve stimulator. Was implanted last week. No pain or symptoms, otherwise feels well. VSS. Area of stimulator appears well, clean, dry. Exam otherwise unremarkable per the food services manager. Wires reconnected. Impression/Plan: Wires reconnected, questions answered. No further complaints. We discussed the diagnostic uncertainty of home visits and the risk associated with this. In this case, the patient and I felt this to be an acceptable and reasonable amount of risk given the benefit of avoiding an ED visit. We discussed the need to seek care urgently/emergentl y in the setting of any new or worsening serious symptoms, particularly weakness, dizziness, fever, chills, CP, SOB, worsening diarrhea, nausea, vomiting or any other concerns. [email or web address] Not available 05/31/2024 15:23:15 Plan of Treatment Reminders Order Date Submit Date Provider Last Modified By Organization Details Last Modified Time Details Appointments None recorded. Lab rapid strep group A, throat 2024 025 [facility], [address] [place] [address], [id number] 12:55:09 rapid SARS CoV 2 Ag, QL IA, respiratory specimen 2024 025 [facility], [address] [place] [address], [id number] 12:55:09 rapid flu (A+B) [address], [id number] 12:55:09 Referral None recorded. Procedures None recorded. Surgeries None recorded. Imaging None recorded. Medication Orders ketorolac 30 mg/mL injection solution [address] [facility], [address] [place] [address], [address], 18:04:09 Patient TargetsNo targets recorded. Patient InstructionsNo instructions recorded. Reason for Referral None Reported. Results Created Date Observation Date Name Description Value Unit Range Abnormal Flag Note LastModifiedBy Organization Detail LastModifiedTime 03/27/1903/27/2024 rapid strep group A, throa t Strep negati ve Not Available [facility] ed [address] [place] [address], [id number] 03/27/2024 11:54:46 03/29/19 25 03/29/2024 rapid SARS CoV 2 Ag, QL IA, respi rator y speci men rapid SARS CoV 2 Ag, QL IA, respiratory specimen negati ve Not Available [facility] - [facility] ed [address] [place] [address], [id number] 03/29/2024 18:05:28 03/29/19 25 03/29/2024 rapid flu (A+B) Flu negati ve Not Available Main - [facility] ed [address] [place] [address], [id number] 03/29/2024 18:05:28 Result Notes None recorded. Medical [...] medicatio n diarrhea Not available low 04/30/2022 19970 2 RxNorm EMELY DHILLON MD [address] [place] [address],[address], [place], [address], [facility] 4 09:58:09 4312 Bactrim medicatio n Not available Not available Not available 02/20/2023 72410 9 RxNorm Not Available [facility] - production 4 03:41:14 4313 sulfameth oxazole / trimethop rim medicatio n Not available Not available Not available 02/20/2023 89750 RxNorm Marita Ramos MD [address] [place] [address],[address], [place], [address], idiag 4 14:13:42 4314 doxycycli ne Not available Not available Not available Not available 02/20/2023 3640 RxNorm Not Available [facility] - production 4 03:41:14 5895 Seroquel medicatio n Not available Not available Not available 09/30/2023 48284 RxNorm EMELY DHILLON MD [address] [place] [address],[address], [place], [address], [facility] 4 18:08:17 5896 fluoxetin e medicatio n Not available Not available Not available 09/30/2023 4493 RxNorm EMELY DHILLON MD [address] [place] [address],[address], [place], [address], [facility] 4 18:08:31 5897 nabumeton e medicatio n Not available Not available Not available 09/30/2023 92660 Mitch DHILLON MD [address], [place], [address], [facility] 4 18:08:46 5898 propranol ol medicatio n Not available Not available Not available 09/30/2023 8787 Mitch DHILLON MD [address] [facility],[address], [place], [address], [facility] 4 18:09:03 7995 Product containin g penicilli n (product) medicatio n Not available Not available Not available 12/11/2023 58808 8001 SNOMED Not Available [facility] - production [...] propionate 50 mcg/actuatio n nasal spray,suspen zoe Oxford 1 spray every day by intranasal route. [...] Details Last Updated DateTime 5 85 /min 76209.1 52 g 18 /min 98.4 [degF] 94 % 94 % 154.94 cm 133 mm[Hg] 75 mm[Hg] Not Available [facility] - production 5 12:47:43 Date Recorded Heart rate Respiratory rate Oxygen saturation Oxygen saturation in Arterial blood by Pulse oximetry Body temperature Systolic blood pressure Diastolic blood pressure Provider Name and Address Organization Details Last Updated DateTime 5 67 /min 16 /min 99 % 99 % 98.5 [degF] 142 mm[Hg] 70 mm[Hg] Not Available [employer] production 5 18:36:07 Date Recorded Oxygen saturation Oxygen saturation in Arterial blood by Pulse oximetry Body temperature Heart rate Respiratory rate Systolic blood pressure Diastolic blood pressure Provider Name and Address Organization Details Last Updated DateTime 5 99 % 99 % 98.2 [degF] 78 /min 16 /min 134 mm[Hg] 84 mm[Hg] Not Available [facility] 5 20:25:47 Date Recorded Respiratory rate Heart rate Body weight Body temperature Body height Oxygen saturation Oxygen saturation in Arterial blood by Pulse oximetry Systolic blood pressure Diastolic blood pressure Provider Name and Address Organization Details Last Updated DateTime 5 20 /min 59 /min 16070.4 16 g 97.9 [degF] 154.94 cm 98 % 98 % 118 mm[Hg] 80 mm[Hg] Not Available Provender 18:00:08 Date Recorded Heart rate Oxygen saturation Oxygen saturation in Arterial blood by Pulse oximetry Respiratory rate Body temperature Systolic blood pressure Diastolic blood pressure Provider Name and Address Organization Details Last Updated DateTime 5 73 /min 94 % 94 % 18 /min 98.2 [degF] 118 mm[Hg] 72 mm[Hg] Not Available [facility] 5 15:20:30 Social History None recorded. Functional Status None [...] 112 Amisha Huntley MD Main - [facility] [address] [place] [address] 03/31/2021 20:59:17 08/30/2021 11:57:03 Osteoarthritis of right knee joint 1667390509 02734 M17.11 Pain of ri ght knee joint 2033696050 98827 M25.561 1721 Luis Cutler MD Main - [facility] [address] [place] [address] 07/03/2021 12:08:30 10/26/2021 13:35:38 Urinary tract infectious disease 86837013 N39.0 This order set is for complicate d UTIs -- those with concern for early pyelo, abnormal anatomy, indwelling catheter, or other higher-ris k features. For MDRO options see UTI-MDRO Kidney stone 53251022 N2 0.0 Acute cystitis 81557644 N30.00 These are first-line agents for lower-risk , uncomplica sharmin UTI. For resistance concerns, early pyelo, or other complicati ons, see complicate d UTI 2887 Maryanne Yip MD Main - [facility] [address] [place] [address] 09/04/2021 13:33:24 10/18/2021 16:29:06 Pain in right foot 0201724697 27664 M79.671 Pt p/w acute onset atraumatic foot [...] assessment and plan as documented by the food services manager. I provided real time medical direction for this encounter and was immediatel y available to provide additional phone based assistance as needed. 4782 Luis Cutler MD Main - [facility] [address] [place] [phone] 12/04/2021 16:52:50 12/05/2021 14:55:01 Upper respiratory infection 79009422 J06.9 6649 Amisha Huntley MD Main - [facility] [address] [place] [address] 02/11/2022 14:16:07 02/14/2022 16:09:43 COVID-19 019424839 U07.1 pat on carbamazep ine expl paxlovid [...] send refill- she requests Rx go to [facility] in [facility] due to holiday weekend( nl uses [facility]) Due to dark green sputum may have bacterial superinfec tion in sinuses or lungs will cover w/ azithromyc in which she reports she tolerates well. Advised Tylenol for pain/ fever has 500 mg caps- can take 1000 mg 3x /24 hrs based on her stated weight 6718 Luis Soto MD Main - [facility] [address] [place] [address] 02/14/2022 19:31:12 02/16/2022 10:53:42 COVID-19 404529038 U07.1 [id number] Rogelio Vasquez MD Main - [facility] [address] [place] [address] 02/18/2022 19:38:25 02/20/2022 10:27:07 Acute exacerbation of chronic obstructive pulmonary disease 788316762 J44.1 Wheezing on exam. Was not candidate for anti-viral s for COVID. Prednisone improved symptoms. WIll rx for additional 5 days. COVID-19 220485729 U07.1 Was not candidate for anti-viral s. Prednisone improved symptoms. WIll rx for additional 5 days. 7057 Maryanne Yip MD Main - [facility] [address] [place] [phone] 02/26/2022 16:27:03 02/28/2022 12:34:42 Exacerbation of moderate persistent asthma 606210051 J45.41 Pt with recent COVID infection (now [...] assessment and plan as documented by the food services manager. I provided real time medical direction for this encounter and was immediatel y available to provide additional phone based assistance as needed. 7393 Luis Cutler MD Main - [address] [address] 03/12/2022 21:49:28 03/14/2022 10:01:04 Postviral cough 340046693 R05.3 As noted, we were called to see this patient regarding concerns of cough and respirator y symptoms following COVID and PNA, treated with cefpodoxim e and possibly also azithro. Evaluation in the field was performed by my food services manager colleague, as noted above, I provided [...] 7820 Luis Soto MD Main - [facility] [address] [place] [phone] 03/30/2022 16:57:05 04/06/2022 14:01:29 Acute urinary tract infection 777886819 N39.0 7909 Mandy Portillo MD Main - [facility] [address] [place] [address] 04/03/2022 20:15:34 04/06/2022 15:58:00 Viral upper respiratory tract infection 344823789 J06.9 8239 Maryanne Yip MD Main - [facility] [address] [place] [address] 04/16/2022 13:22:29 04/18/2022 09:19:04 Productive cough 79492831 R05.9 Evaluation in the field was performed by my food services manager colleague, as noted above, I provided [...] 8475 Mandy Portillo MD Main - [facility] [address] [place] [address] 0 04/24/2022 18:57:17 04/26/2022 10:49:34 Flank pain 601350246 R10.9 8654 Amisha Huntley MD Main - [facility] [address] [place] [address] 04/30/2022 18:17:58 05/02/2022 09:44:42 Pain of right shoulder joint [id number] 8088116 M25.511 pat had nl renal function 03/02/22( [...] she verbalized understand ing of instructio ns 4987 Rogelio Vasquez MD Main - [facility] [address] [place] [address] 0 05/21/2022 19:11:05 05/22/2022 10:54:13 Paronychia of finger of right hand 7376590559 5083296 L03.011 No s/s of cellulitis . Advised to do warm soaks and if persistent pain to go to PCP for removal of potential ingrown nail 9523 Mandy Portillo MD Main - [facility] [address] [place] [address] 0 05/29/2022 18:58:29 05/30/2022 11:45:45 Pain in right thumb [id number] 662449 M79.644 30540 Maryanne Yip MD Main - [facility] [address] [place] [address] 0 06/17/2022 12:55:35 06/19/2022 10:39:24 Thoracic back pain 857423608 M54.6 Evaluation in the field was performed by my food services manager colleague, as noted above, I provided [...] shortness of breath, cough, chest pain, fever. 00091 Kindra Wright MD Main - [facility] [address] [place] [address] 07/03/2022 20:06:35 07/04/2022 15:03:54 Rheumatoid arthritis 03716474 M06.9 [id number] Luis Cutler MD Main - [facility] [address] [place] [address] 07/08/2022 12:56:39 07/10/2022 18:48:54 Pain 76374355 R52 As noted, we were called to see this patient regarding concerns of pain in rib and with inspiratio n subsequent to fall. Evaluation in the field was performed by my food services manager colleague, as noted above, I provided [...] LH, or anything unusual. Fracture of rib 50617995 S22.32XA 16123 TOÑITO VARELA MD [address] [address] 07/09/2022 13:21:31 07/10/2022 19:03:27 Rib pain 241997999 R07.81 [id number] Elizabeth Victoria MD [address] [address] 07/11/2022 20:04:39 07/12/2022 09:35:01 Chronic obstructive pulmonary disease 36029370 J44.9 61508 Yuliya Maldonado MD [address] [address] 07/16/2022 16:26:39 07/26/2022 10:17:58 Rib pain 424450759 R07.81 case supervised and discussed with food services manager. Patient was given opportunit y to ask questions, warning signs/symp toms of pertinent medical emergency reviewed. mechanical fall several weeks ago, seen at two different [facility] without identified etiology on imaging (xrays, no fractures) but prescribed oxycodone. Continues to experience excruciati ng pain, reproducib le on palpation. Explained to patient that [facility] does not have any imaging capabiliti es for diagnostic purposes, so wont be able to provide much additional insight to the etiology of her acute pain. Pt adamant she wanted a diagnosis JERMAINE and additional therapeuti cs, for which I explained she would have to present to the ED. Pt requested food services manager call ambulance. 24196 Abida Mcleod MD [address] [address] 08/27/2022 13:28:03 08/28/2022 12:04:02 Urinary symptoms 312514391 R39.9 61 year old female being evaluated [...] new symptoms before culture data are available. 14954 Mandy Portillo MD Main - [facility] [address] [place] [address] 08/27/2022 18:13:48 08/28/2022 10:29:08 Pain 18327274 R52 [id number] Amisha Huntley MD Main - [facility] [address] [place] [address] 09/04/2022 11:12:04 09/04/2022 16:13:04 Sinus headache 6443827 R51.9 Patient is already taking Johanny and [...] time which I discussed with the patient [id number] Maryanne Yip MD Main - [facility] [address] [place] [address] 09/11/2022 19:18:28 09/11/2022 23:12:11 Contact dermatitis 02023389 L25.9 Evaluation in the field was performed by my food services manager colleague, as noted above, I provided [...] shortness of breath, cough, chest pain, fever. 32776 Yuliya Maldonado MD Main - [facility] [address] [place] [address] 0 09/23/2022 17:13:29 09/26/2022 15:32:41 Pain in throat 750128571 R07.0 1-2 d sore throat iso increased exposure to high volume AC. Strep negative. Some possible sick contacts. No fevers/chi lls or other infectious sx on exam or history. takes johanny bid, endorses post nasal drip but states that any nasal spray gives her a head ache. Dicsussed monitoring and supportive care with tea/honey etc. Warning signs/sx reviewed, pt and food services manager agree with plan. 10005 Liam Cheung MD Main - [facility] [address] [place] [address] 09/24/2022 13:32:56 09/26/2022 15:37:52 Acute pharyngitis 619579118 J02.9 Patient with pharyngiti s/laryngit is. No signs of bacterial superinfec tion. POC COVID and Strep neg. Advised continued supportive care. 38903 Amisha Huntley MD Main - [facility] [address] [place] [address] 0 09/30/2022 18:28:05 10/02/2022 07:15:34 Acute exacerbation of chronic obstructive pulmonary disease 687944127 J44.1 With possible minor URIadvised to use [...] y, but her blood sugar is normal [id number] Marita Ramos MD Main - [facility] [address] [place] [address] 10/12/2022 13:11:26 10/12/2022 19:18:57 Respiratory tract congestion and cough 783258730 R05.9 33670 aJs Woodall MD Main - [facility] [address] [place] [address] 0 10/14/2022 11:55:33 10/16/2022 20:25:38 Pain of right wrist 0197230689 74842 M25.531 Dizziness 876374735 R42 [id number] Elizabeth Victoria MD Main - [facility] [address] [place] [address] 0 10/19/2022 20:24:42 10/19/2022 23:38:55 Dysuria 55438674 R30.0 Urinary symptoms 9427157 08 R39.9 11864 Yuliya Maldonado MD Main - [facility] [address] [place] [address] 0 10/29/2022 10:52:45 12/12/2022 15:05:16 Cough 80106125 R05.9 I provided real -time medical direction via phone for this encounter, and was available for additional phone based assistance as needed. I have reviewed and agree with the Assessment and Plan as documented by the Animal Anatomy Teacher. Patient given the opportunit y to ask [...] Reviewed supportive care strategies and warning signs/sx. 26946 Elizabeth Victoria MD Main - [facility] [address] [place] [address] 0 10/31/2022 19:47:09 11/01/2022 12:07:59 Acute viral pharyngitis 655201834 J02.9 19716 Abida Mcleod MD Main - [address] [address] 11/03/2022 19:45:46 11/05/2022 18:05:51 Pharyngitis 916938102 J02.9 62 year old female being evaluated [...] assessment and plan as documented by the food services manager. I provided real-time medical direction for this encounter and was immediatel y available to provide additional phone-base d assistance as needed. 03959 Maryanne Yip MD Main - [address] [address] 11/05/2022 11:22:03 11/05/2022 18:18:37 Acute pharyngitis 877968747 J02.9 Evaluation in the field was performed by my food services manager colleague, as noted above, I provided [...] shortness of breath, cough, chest pain, fever. 84209 Mandy Portillo MD Main - [facility] [address] [place] [address]33[address]507 0 12/19/2022 20:38:38 12/27/2022 18:34:30 Hoarse 40408661 R49.0 22028 Marita Ramos MD Main - [facility] [address] [place] [address]179 0 12/21/2022 15:09:02 12/22/2022 13:12:24 Nausea and vomiting 58282086 R11.2 08859 Luis Cutler MD Main - [facility] [address] [place] [address]38[address] 0 12/24/2022 17:29:23 12/25/2022 14:41:46 Cellulitis 028695061 L03.90 As noted, we were called to see this patient regarding concerns of cellulitis . Evaluation in the field was performed by my food services manager colleague, as noted above, I provided [...] particular ly high fever, unresolvin g pain. [id number] Marita Ramos MD Main - [facility] [address] [place] [address]68[address] 0 12/27/2022 19:57:19 12/27/2022 22:46:42 Cellulitis 783360562 L03.90 [id number] Elizabeth Victoria MD Main - [facility] [address] [place] [address]68[address]287 0 01/23/2023 20:58:40 01/24/2023 13:37:45 Acute sinusitis 05593343 J01.90 19448 EMELY DHILLON MD Main - [facility] [address] [place] [address]12[address] 0 01/27/2023 19:31:06 01/30/2023 10:07:25 Abscess 107029508 L02.91 As noted, we were called to see this patient regarding concerns of recurring right nostril abscess Evaluation in the field was performed by my food services manager colleague, as noted above, I provided [...] surgeon, but no appt available until May.Per food services manager exam, right nostril blocked completely with puss Impression :Right nare abscess Plan:Pt was send to ED for I& D and possible IV antibiotic sNo Tramadol give since increases risk of bleeding during the I&D Primary care, consider__ _ Dispositio n: We discussed the situation and I recommende d referral to the emergency department . [id number] Yuliya Maldonado MD Main - [facility] [address] [place] [address] 0 02/17/2023 18:16:57 02/18/2023 15:31:40 Acute urinary tract infection 534216263 N39.0 62 yo h/o recurrent UTis today p/w 1d severe flank pain. UA positive for LE and nitrites. Pt is in significan t distress 2/2 pain on exam, reports this is much worse than prior. Requesting transport to ED. 37495 Marita Ramos MD Main - [facility] [address] [place] [address] 83027[address]147 0 02/20/2023 14:07:45 02/21/2023 11:03:01 Renal angle tenderness 728607962 R10.829 Dysuria 64615818 R30.0 16117 Rangel Robledo MD Main - [facility] [address] [place] [address]1194[address]431 0 02/23/2023 17:39:45 02/26/2023 17:26:50 Chronic thoracic back pain 6516845926 38975 M54.6 13205 Ninoska Juarez MD Main - [facility] [address] [place] [address]17[address] 0 03/10/2023 16:45:25 03/11/2023 15:32:12 Viral upper respiratory tract infection 873079330 J06.9 [id number] Elizabeth Victoria MD Main - [facility] [address] [place] [address] 99254-349 0 04/10/2023 20:36:05 04/11/2023 17:22:36 Pain in left foot 1501769549 67957 M79.672 47986 Sam Perez MD Main - [facility] [address] [place] [address]11[address]906 0 04/25/2023 15:11:36 04/25/2023 22:44:01 Pain in left arm 289674481 M79.602 This 62-year-ol d female has a three month history of left upper back and shoulder pain with no history of trauma. She has been taking Tylenol, but today the pain is worse. I ordered Toradol 15 mg IM. I also recommende d she alternate ibuprofen with the Tylenol. She will follow-up with her PCP. The patient agreed with this plan. 15466 Elizabeth Victoria MD Main - [facility] [address] [place] [address]11[address] 0 05/10/2023 20:23:10 05/14/2023 18:12:54 Acute urinary tract infection 919537256 N39.0 servce called for abd painfound 62 girish withDiabet es,COPD/As thma,Hyper tensionrec urrent UTIc/o 2-3 lower abd pain, urinary frequency, back painmost recent UCx 10/2022 with mixed floraAll: augmentin, bactrimVS noted elev BPreported examabd tender LLQ and RLQ #UTIempiri c macrobidf/ up Ucx [id number] Mandy Portillo MD Main - [facility] [address] [place] [address] 30292[address]155 0 05/29/2023 21:28:01 05/29/2023 22:30:30 Urinary symptoms 546948424 R39.9 [id number] Sara Rucker MD Main - [facility] [address] [place] [address] 44641-426 0 05/30/2023 13:40:04 05/30/2023 15:20:06 Pyelonephritis 94735535 N12 Urinary symptoms 4802335 08 R39.9 90234 Ninoska Juarez MD Main - [facility] [address] [place] [address] 78373-202 0 06/17/2023 20:18:31 06/19/2023 11:51:51 Community acquired pneumonia 555036225 J18.9 70371 Abida Mcleod MD Main - [facility] [address] [place] [address]109[address]993 0 07/02/2023 18:08:47 07/03/2023 17:43:48 Abdominal pain 22910959 R10.9 62 year old female being evaluated [...] assessment and plan as documented by the food services manager. I provided real-time medical direction for this encounter and was immediatel y available to provide additional phone-base d assistance as needed. We discussed the diagnostic uncertaint y of home visits and associated risks. We discussed the need to seek care urgently/e mergently in the setting of any new or worsening symptoms. 08352 EMELY DHILLON MD Main - [address] [address] 07/14/2023 20:33:44 07/16/2023 10:38:00 Urinary symptoms 085594643 R39.9 Evaluation in the field was performed by my food services manager colleague, as noted above, I provided [...] plan for BMP and IV hydration, but food services manager unable to place a PIV or draw [...] pain CVA tenderness or any other concerns. 33156 EMELY DHILLON MD Main - [facility] [address] [place] [address] 11398-757 0 07/15/2023 20:22:18 07/16/2023 10:43:33 Left lower quadrant pain 326265280 R10.32 Evaluation in the field was performed by my food services manager colleague, as noted above, I provided [...] via ambulance after expect was called [facility] Primary care, consider__ _ Dispositio n:ER [id number] Marita Ramos MD [facility] [address] [place] [address] [phone] 0 07/25/2023 08:03:15 07/26/2023 09:54:40 Seasonal allergy [id number] J30.2 [id number] Abida Mcleod MD Main - [facility] [address] [place] [address] [phone] 0 09/28/2023 18:39:05 09/28/2023 20:43:24 Pain of left shoulder joint [id number] M25.512 63 year old female being evaluated [...] assessment and plan as documented by the food services manager. I provided real-time medical direction for this encounter and was immediatel y available to provide additional phone-base d assistance as needed. We discussed the diagnostic uncertaint y of home visits and associated risks. We discussed the need to seek care urgently/e mergently in the setting of any new or worsening symptoms. [id number] EMELY DHILLON MD Main - [facility] [address] [place] [address] [phone] 0 09/30/2023 18:55:46 10/01/2023 12:23:23 Pain of left shoulder joint [id number] M25.512 Evaluation in the field was performed by my food services manager colleague, as noted above, I provided [...] arm, CP, SOB or any other concerns. [id number] EMELY DHILLON MD Main - [facility] [address] [place] [address] [phone] 0 10/03/2023 18:14:26 10/04/2023 12:20:55 Pain of left shoulder joint [id number] M25.512 Evaluation in the field was performed by my food services manager colleague, as noted above, I provided [...] with orthopedic s on that shoulder on 9/4. She is prescribed gabapentin and Tylenol, but these have not provided significan t relief. Diclofenac gel was prescribed at her last visit; however, the patient reports it is not covered by her insurance. She denies fever, chills, chest pain, shortness of breath, weakness, numbness in the left arm, nausea, or vomiting. The patient took Ibuprofen 800 [facility] hours prior to the visit. [...] [facility] , so could [...] arm, CP, SOB or any other concerns. [id number] EMELY DHILLON MD Main - [facility] [address] [place] [address] [phone] 0 10/12/2023 09:53:35 10/12/2023 22:05:57 Acute sinusitis [id number] J01.90 Evaluation in the field was performed by my food services manager colleague, as noted above, I provided [...] first dose was administer ed by the food services manager. -A prescripti on for Flonase was sent [...] tolerate PO, weakness or any other concerns. [id number] EMELY DHILLON MD Main - [facility] [address] [place] [address] [phone] 0 11/08/2023 17:29:57 11/08/2023 23:24:56 Candidal intertrigo [id number] B37.2 Evaluation in the field was performed by my food services manager colleague, as noted above, I provided real-time direction and supervisio n for this visit. The evaluation revealed a 63-year-ol d female with a past medical history of diabetes mellitus, COPD, hypertensi on, and chronic shoulder pain, presenting with complaints of a fungal infection under both breasts. The patient reports she went to [facility] ED on 11/04 for a rash [...] rash in new areas any other concerns. [id number] Marita Ramos MD Main - [facility] [address] [place] [address] [phone] 0 11/12/2023 14:09:08 11/13/2023 13:10:59 Candidal intertrigo [id number] B37.2 40884 Jas Woodall MD Main - [facility] [address] [place] [address] [phone] 0 11/29/2023 11:03:27 11/29/2023 15:42:06 Pain of shoulder region [id number] M25.519 [id number] Marita Ramos MD Main - [facility] [address] [place] [address] [phone] 0 12/15/2023 15:20:51 12/15/2023 19:16:04 Pruritic rash [id number] L28.2 15537 Luis Cutler MD Main - [facility] [address] [place] [address] [phone] 0 12/16/2023 20:24:02 12/17/2023 00:34:23 Pain of bilateral hands [id number] M79.641 As noted, we were called to see this patient regarding concerns of hand pain. Evaluation in the field was performed by my food services manager colleague, as noted above, I provided [...] today Primary care, considerch asim in call [id number] KATE KESSLER MD Main - [facility] [address] [place], [place] [address] 0 01/03/2024 17:27:17 01/03/2024 18:46:50 Pain of right knee joint [id number] 60645 M25.561 37957 eWs Regan MD Main - [facility] [address] [place] [address] 0 01/16/2024 19:06:51 01/17/2024 08:57:49 History of operative procedure on shoulder [id number] Z98.890 18066 Luis Cutler MD Main - [facility] [address] [place] [address] [phone] 0 01/20/2024 18:38:49 01/20/2024 21:54:58 Pain of shoulder region 99678412 M25.519 As noted, we were called to see this patient regarding concerns of severe shoulder pain apparently due to an injury in a sensitive recently post-op patient. Evaluation in the field was performed by my food services manager colleague, as noted above, I provided real-time direction and supervisio n for this visit. Impression :Severe shoulder pain, refractory to OTC APAP Plan:IV or IM ketorolac 30 mg [id number] Marita Ramos MD Main - [facility] [address] [place] [address] [phone] 0 02/10/2024 17:37:40 02/12/2024 21:08:43 Urinary symptoms [id number] R39.9 67168 EMELY DHILLON MD Main - [facility] [address] [place] [address] [id number] 0 02/16/2024 20:12:37 02/18/2024 00:14:16 Pain of left shoulder joint [id number] M25.512 Evaluation in the field was performed by my food services manager colleague, as noted above, I provided [...] arm, CP, SOB or any other concerns. [id number] Loi Wu MD Main - [facility] [address] [place] [address] [phone] 0 02/28/2024 13:48:17 02/28/2024 20:22:02 Upper respiratory infection [id number] J06.9 [id number] Marita Ramos MD Main - [facility] [address] [place] [address] [phone] 0 03/05/2024 16:43:16 03/05/2024 19:19:50 Asthma [id number] J45.909 [id number] Maryanne Yip MD Main - [facility] [address] [place] [address] [phone] 0 03/15/2024 14:54:03 03/18/2024 16:38:13 Upper respiratory infection 08473487 J06.9 Evaluation in the field was performed by my food services manager colleague, as noted above, I provided real-time direction and supervisio n for this visit. 63yo F asthma, HTN p/w ongoing nasal congestion , cough. On prednisone x 48 hrs without improvemen t. Denies feveres, orthopnea, PND. On food services manager eval sat 97% rest also wnl, exam without sig wheezing, good air movement. POC COVID and flu negative. Recommend symptomati c mgmt, pt frustrated as she is unable to afford OTCs. Encouraged f/up with allergy/im munology and PCP given chronicity of symptoms. PCP: given frequent pt visits for URI symptoms consider developing care [facility] We discussed the diagnostic [...] shortness of breath, cough, chest pain, fever. [id number] Rogelio Vasquez MD Main - [facility] [address] [place] [address] [phone] 0 03/16/2024 10:41:49 03/18/2024 17:02:49 Viral upper respiratory tract infection [id number] J06.9 Patient 4 days into prednisone course. Vitals stable. Taking inhalers at home though mild wheezing noted by food services manager and administer ed duoneb with good effect. Declined COVID/flu testing as out of window for treatment. Discussed red flag signs for which to seek higher level of care. [id number] Rangel Robledo MD Main - [facility] [address] [place] [address] [phone] 0 03/27/2024 11:44:09 03/27/2024 14:25:14 Sore throat [id number] J02.9 47853 Ninoska Juarez MD Main - [facility] [address] [place] [address] [phone] 0 03/29/2024 17:58:44 03/30/2024 15:29:24 Pharyngitis 776711314 J02.9 [id number] Rangel Robledo MD Main - [facility] [address] [place] [address] [phone] 0 04/13/2024 12:47:37 04/14/2024 09:49:23 Viral upper respiratory tract infection 806620969 J06.9 Acute pharyngitis [id number] 003 J02.9 21242 Rogelio Vasquez MD Main - [facility] [address] [place] [address] [phone] 0 04/17/2024 18:32:56 04/17/2024 21:18:53 Effusion of joint of right knee [id number] 54163 M25.461 Effusion with difficulty walking; in past has required drainage. Given severity of pain advised to go to ED for evaluation and patient in agreement in order to get aspiration . [id number] Marita Ramos MD Main - [facility] [address] [place] [address] [phone] 0 04/21/2024 20:25:45 04/22/2024 10:22:29 Generalized anxiety disorder 97082352 F41.1 84128 EMELY DHILLON MD Main - [facility] [address] [place] [address] [phone] 0 05/03/2024 18:00:06 05/05/2024 13:55:51 Pain of right knee joint 6052785191 52529 M25.561 Evaluation in the field was performed by my food services manager colleague, as noted above, I provided [...] VS stableExam done and discussed with the food services manager : R knee reveals visible swelling and [...] to move put weight on that leg [id number] Mandy Portillo MD Main - [address] [phone] 05/31/2024 15:20:28 06/02/2024 14:38:52 Complication associated with neurological device [id number] T85.199A Health Concerns Section Related Observation LastModified by Organization Detai ls LastModified Time None Recorded Concern Status LastModified by Organization Details LastModified Time None Recorded Advance Directives Directive None Recorded Payers Encounter Date Sequence Insurance Name Policy Number Policy Valdez Covered Member ID Valdez Member ID Guarantor Name 04/13/2024 1 [employer] - DOS ON OR AFTER 2022 - DUAL ELIGIBLE - CUSTODIAL OPTIONS AND ONE CARE (MEDICARE REPLACEMENT/ADV ANTAGE - HMO) Elizabeth Huang [id number] Elizabeth Wray Reina 04/17/2024 1 [employer] - DOS ON OR AFTER 2022 - DUAL ELIGIBLE - CUSTODIAL OPTIONS AND ONE CARE (MEDICARE REPLACEMENT/ADV ANTAGE - HMO) Elizabeth Huang [id number] Elizabeth Wray [place] 04/21/2024 1 [employer] - DOS ON OR AFTER 2022 - DUAL ELIGIBLE - CUSTODIAL OPTIONS AND ONE CARE (MEDICARE REPLACEMENT/ADV ANTAGE - HMO) Elizabeth Huang [id number] Elizabeth Wray Reina 05/03/2024 1 [facility] - DOS ON OR AFTER 2022 - DUAL ELIGIBLE - CUSTODIAL OPTIONS AND ONE CARE (MEDICARE REPLACEMENT/ADV ANTAGE - HMO) Elizabeth Huang [id number] Elizabeth Wray [place] 05/31/2024 1 [facility] - DOS ON OR AFTER 2022 - DUAL ELIGIBLE - CUSTODIAL OPTIONS AND ONE CARE (MEDICARE REPLACEMENT/ADV ANTAGE - HMO) Elizabeth Huang [id number] Elizabeth Wray Reina Notes Date Note Type Note Provider Name and Address Organization Details Recorded Time 04/13/2024 text/html This was a super vised home visit with food services manager Cheyanne Wilson. [facility] Nurse Triage Notes (Alberto Morocho): Reason For [...] Persistent Mental Illness (SPMI), HypertensionPMH Reviewed at 04/13/2024:34Allergies Reviewed at 04/13/2024:34Comments: Business Analytics Faculty Member verified the Pt.'s name//address and phone number. [...] needed - [facility] and 03/29 for same. ER treatment declined Animal Anatomy Teacher Organization Information for Cheyanne Wilson Legal Name: [employer]Address: [address] [place] [address], USMedical Director: Burton Kruse [facility] No.: [id number] Animal Anatomy Teacher POC Test Results from Cheyanne Wilson Rapid strep test (12:41:36)Strep: -Attachments uploaded as part of this test result can be found under Documents section. Rapid COVID antigen (12:42:22)COVID: -Attachments uploaded as part of this test result can be found under Documents section. Rapid influenza antigen (12:42:23)Flu: - ..................... ..................... ..................... ..................... ..................... ..................... ............... Animal Anatomy Teacher Note From Cheyanne Wilson: [facility] makes pt contact. She is walking [...] is denying fevers/chills, n/v/d, cp, and sob. [facility] obtains vistal signs and pt is assessed. Lungs present w/ expiratory wheezes. Throat appears to have some irritation, but no drainage, swelling, or pustules are noted. Neck is supple, trachea is midline w/ no swelling noted. Auscultation of the throat is clear. Pt is swabbed for COVID/flu, and strep A and all tests are negative. [facility] contacts [facility] and discusses the above. [facility] recommends pt speak w/ her PCP about seeing an ENT for a scope of her vocal cords. [facility] will send a note to pt's primary care team w/ the recommendation as well and recommends pt continue w/ her current course of care. Pt is amendable to the plan. [facility] is clear. Report completed by ROULA Wilson [id number]. [facility] Lab Orders: rapid strep group A, throat: Performed rapid SARS CoV 2 Ag, QL IA, respiratory specimen: Performed rapid flu (A+B): Performed ..................... ..................... ..................... ..................... ..................... ..................... ............... [facility] Consulted: Rangel Robledo ..................... ..................... ..................... ..................... ..................... ..................... ............... Disposition: Jamie Robledo MD [address] [facility],[address], [place], [address], [place] 04/13/2024 15:27:33 04/17/2024 text/html [facility] Nurse Triage [...] ..................... ..................... ..................... ..................... ..................... ..................... ............... Animal Anatomy Teacher Note From Jacques Nix: Dispatched to the [...] 911 called on behalf of the Pt. [facility] ALS unit transported Pt to [facility] ED per her request. All times are approx. ..................... ..................... ..................... ..................... ..................... ..................... ............... [facility] Consulted: Víctor Vasquez ..................... ..................... ..................... ..................... ..................... ..................... ............... Disposition: Fulfilled Rogelio Vasquez MD [address] [place] [address],[address] [facility], [place], [phone], [place] 04/17/2024 20:43:33 04/21/2024 text/html [facility] Nurse Triage [...] Anxiety Disorder, Rheumatoid Arthritis PMH Reviewed at 04/21/2024:49 Allergies Reviewed at 04/21/2024 - 17:49 Comments: Business Analytics Faculty Member verified the patient's name//address and phone number. [...] ..................... ..................... ..................... ..................... ..................... ..................... ............... Animal Anatomy Teacher Note From Jacques Nix: Dispatched to the [...] ..................... ..................... ..................... ..................... ..................... ..................... ............... [facility] Consulted: Marita Ramos ..................... ..................... ..................... ..................... ..................... ..................... ............... Disposition: Fulfilled Marita Ramos MD [address] [place] [address],[address], [place], [phone], [employer] 04/22/2024 08:15:29 05/03/2024 text/html [facility] Nurse Triage Notes (Alberto Morocho): Reason For [...] Anxiety Disorder, Rheumatoid ArthritisPMH Reviewed at 05/03/2024 16:54Allergies Reviewed at 05/03/2024 - 16:54Comments: Business Analytics Faculty Member verified the Pt.'s name//address and phone number. [...] ..................... ..................... ..................... ..................... ..................... ..................... ............... Animal Anatomy Teacher Note From Cheyanne Wilson: [facility] makes pt [...] in order to get around. Pt says [facility] visited her a week ago for the same thing and it has continued to get worse. She has no other complaints at this time. [facility] obtains vital signs and pt is [...] tests performed in comparison to the L. [facility] contacts [facility] and discusses the above. [facility] orders 30mg ketorolac IM for pt. [facility] administers 30mg ketorolac in the R deltoid and covers w/ an adhesive bandage. [facility] recommends pt continue w/ ice and Tylenol for pain and continue w/ elevation and limiting activity on the knee until she has her appt on Sunday. Pt is also encouraged to call back if necessary. [facility] is clear. Report completed by ROULA Wilson [id number]. [facility] Medication Orders: ketorolac 30 mg/mL injection solution: Administered ..................... ..................... ..................... ..................... ..................... ..................... ............... [facility] Consulted: Emely Dhillon ..................... ..................... ..................... ..................... ..................... ..................... ............... Disposition: Jamie DHILLON MD [address] [facility],[address], [place], [address], [place] 05/03/2024 19:14:21 05/31/2024 text/html [facility] Nurse Triage Notes (Jaylen Escobar): Reason For Request: Pt reporting, she having trouble connecting equipment she recently got, nerve stimulator lead connect error on her remote for it Chief Complaints: Postoperative Problems PMH: COPD/Asthma, Severe Persistent Mental Illness (SPMI), Hypertension, Anxiety Disorder, Rheumatoid Arthritis PMH Reviewed at 05/31/2024: Allergies Reviewed at 05/31/2024:41 Comments: Business Analytics Faculty Member verified the patient's name//address and phone number. Pt calling reporting she believes she pulled the wire out of the main base of a nerve stimulator on her L shoulder. Pt states she may have dislodged a wire while changing this morning. Pt reports she is getting a lead connect error message on the monitor. Pt requesting visit for someone to help her trouble shoot device. Education provided on the response time and the patient was advised to monitor reported s/s and seek emergency treatment if needed -Allison Escobar RN ..................... ..................... ..................... ..................... ..................... ..................... ............... Animal Anatomy Teacher Note From Satish Brito: Encountered patient conscious, alert and seated upright. Patient reports that on 05/29/24 she had a ? n erve stimulator? device and plant it into her left shoulder. Patient states while attempting to put on a bra this morning, she accidentally disconnected a lead wire which prompted a fault on her monitoring device. Patient denies any complaints or ailments at this time, but is seeking help with troubleshooting her device. Skin warm, dry and of appropriate color for ethnicity. Head and neck, free of trauma and edema.-JVD. Incision site examined, no signs of infection or tenderness noted. Breath sounds present clear and equal bilaterally. Extremities free of trauma and edema. [facility] contacted: this movie writer notified [facility] of patient? s device issues. The device was reconnected, restarted and shortly after, according to patient ? I can feel it working and I feel better already.? [facility] states as this was a routine visit for a medical affairs director failure that no further interventions or treatment were necessary. Patient was advised to seek further medical attention, including 911 if she were to develop acute symptoms such as chest pain, shortness of breath or acute changes in vision. Patient verbalizes understanding and gratitude with assistance of her device, states she has come through with the plan of remaining at home at this time. ..................... ..................... ..................... ..................... ..................... ..................... ............... [facility] Consulted: Mandy Portillo ..................... ..................... ..................... ..................... ..................... ..................... ............... Disposition: Jamie Portillo MD [address] [facility],[address], [place], [address], [place] 05/31/2024 17:28:07 OBGyn Episode No OBEpisode recorded.
--- OUTSIDE RECORDS SUMMARY | 2024-06-10 14:53 | XMS_ITS | Encounter Summary ---
Author Organization [facility] Address [address] [place] [address] Care Team Providers Care Hospice Director Name Role Phone Clare Wilson Annemarie Primary Care Provider [phone] Encounter Details Date Type Department Care Team (Late Contact Info) Description 01/16/2024 Orders Only [facility] Surgery [address] [place], [place] [phone] Jesus Gillis MD [address] [place] [address] Social History Tobacco Use Types Packs/Day Years [...] Description 08/08/2024 1:45 PM EDT Procedure visit [facility] Medicine [address] [place], [place] [phone] Sandy Snyder DO [address] [place] [address] 10/02/2024 1:45 PM EDT Follow-Up [facility] Sports Medicine [address] [place] [id number] Luis Minor MD [address] [place] [address] documented as of this encounter Visit Diagnoses Not on filedocumented in this encounter Care Teams Hospice Director Relationship Specialty Start Date End Date Clare Wilson [address] [place] [phone] PCP - General Family Medicine 09/10/23 documented as of this encounter
== END 2024-06-10 13:16 | disposition home or self-care (01) ==
PROVIDERS: PCP Family Medicine; Visit Provider Nurse Practitioner Family
DX: M25.512 Pain in left shoulder (principal); Z98.890 Other specified postprocedural states
CPT/HCPCS: 99213; G2211

== ENCOUNTER → 2024-06-10 12:59 | Outpatient (BNVA) | payer OTHER, SELFPAY | PROVIDERS: PCP Family Medicine; Visit Provider Nurse Practitioner Family | DX: M25.512 Pain in left shoulder (principal); Z96.82 Presence of neurostimulator; Z98.890 Other specified postprocedural states | CPT/HCPCS: 99212 ==

== ENCOUNTER → 2024-06-17 15:02 | Outpatient (BNVA) | payer OTHER, SELFPAY | PROVIDERS: PCP Family Medicine; Visit Provider Nurse Practitioner Family ==

== ENCOUNTER 2024-06-30 09:34 | Day surgery (SDC) | payer OTHER, SELFPAY ==
--- NOTE | 2024-06-30 09:43 | MHC.SHP ---
Pre-Procedural Eval Section A - 24 Hr Update-Section A only Date of Service: 06/30/24 The patient is an INPATIENT: No The patient has been examined within 24 hours of the surgical procedure. The History & Physical has been completed within 30 days and I have reviewed it.: No Section B - Complete if H&P > 30 days Chief Complaint: Gastro-esophageal reflux disease without esophagit Relevant Family History (Specify if Yes): No Relevant Social History: Tobacco Use (Former smoker) Present Medications: see Short Stay Collaborative assessment Medical History: Significant History (Spinal stenosis TMJ (dislocation of temporomandibular joint) Migraine COPD (chronic obstructive pulmonary disease) Asthma Depression Anxiety Prediabetes Arthritis of right knee Umbilical hernia Chronic idiopathic constipation) History of Previous Operations: Relevant previous surgery/procedure and date(s) (History of carpal tunnel release Hx of colonoscopy History of esophagogastroduodenoscopy (EGD) Hx of hand surgery H/O eye surgery Hx of hysterectomy) Allergies: Allergies Allergy/AdvReac Type Severity Reaction Status Date / Time cephalexin Allergy Intermediate Diarrhea Verified 06/10/24 13:09 Iodinated Contrast Media Allergy Intermediate DIFF Verified 06/10/24 13:09 [IV CONTRAST] BREATHING morphine [MORPHINE] Allergy Intermediate HIVES Verified 06/10/24 13:09 nabumetone [NABUMETONE] Allergy Intermediate HIVES Verified 06/10/24 13:09 sulfamethoxazole Allergy Intermediate HIVES Verified 06/10/24 13:09 [From BACTRIM] trimethoprim [From BACTRIM] Allergy Intermediate HIVES Verified 06/10/24 13:09 dicloxacillin Allergy Unknown Rash Verified 06/10/24 13:09 dyclonine Allergy Unknown Unknown Verified 06/10/24 13:09 propranolol [Inderal LA] Allergy Unknown unknown Verified 06/10/24 13:09 quetiapine [Seroquel] Allergy Unknown rash Verified 06/10/24 13:09 seafood Allergy Unknown Unknown Verified 06/10/24 13:09 Sulfa (Sulfonamide Allergy Unknown hives Verified 06/10/24 13:09 Antibiotics) amoxicillin [From Augmentin] Allergy stomach Verified 06/10/24 13:09 pain clavulanic acid Allergy stomach Verified 06/10/24 13:09 [From Augmentin] pain polyethylene glycol AdvReac Severe Hallucinati Verified 06/10/24 13:09 [From Golytely] ons polyethylene glycol 3350 AdvReac Severe Hallucinati Verified 06/10/24 13:09 [From Golytely] ons potassium chloride AdvReac Severe Hallucinati Verified 06/10/24 13:09 [From Golytely] ons sodium [From Golytely] AdvReac Severe Hallucinati Verified 06/10/24 13:09 ons sodium bicarbonate AdvReac Severe Hallucinati Verified 06/10/24 13:09 [From Golytely] ons sodium chloride AdvReac Severe Hallucinati Verified 06/10/24 13:09 [From Golytely] ons sodium sulfate AdvReac Severe Hallucinati Verified 06/10/24 13:09 [From Golytely] ons doxycycline [DOXYCYCLINE] AdvReac Intermediate NAUSEA & Verified 06/10/24 13:09 VOMITTING From INDERAL Allergy Intermediate RASH Uncoded 05/29/24 10:31 Codeine Sulfate Allergy Unknown Unknown Uncoded 05/29/24 10:31 Review of Systems Sugical H&P ROS: Negative: Cardiovascular and Respiratory and Yes, Specify: Constitution (ambulates with a walker) and Gastrointestinal (diarrhea) Exam Surgical H&P Exam: Normal: Heart, Normal: Lungs, Normal: Extremities and Normal: Abdomen Plan Diagnosis/Plan: Unchanged I have reviewed the history and physical and performed a pertinent physical examination on my patient. No changes have occurred unless specified. Time Spent With Patient Time: Total time managing care of this patient today ____ minutes.
--- OUTSIDE RECORDS SUMMARY | 2024-06-30 09:48 | XMS_ITS | Clinical Summary ---
Author Organization [facility] Address [address] [place] [address] Care Team Providers Care Machine Sander Name Role Phone Lexa Wilsonsun Sharpe Primary Care Provider Allergies Active Allergy Reactions Criticality Noted Date [...] mellitus 12/05/2021 Hearing loss 12/05/2021 Overview (12/05/2021): [facility] audiology History of total hysterectom y with bilateral salpingo-oophorectomy (BSO) 12/05/2021 Lower urinary tract infectious disease 2 Menopausal syndrome 12/05/2021 Obesity 12/05/2021 Osteoarthritis 12/05/2021 Pelvic pain in female 12/05/2021 Pernicious anemia 12/05/2021 Posttraumatic stress disorder 12/05/2021 Respiratory abnormalities 12/05/2021 Shoulder pain 12/05/2021 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 Vertigo 12/05/2021 Trigger finger of thumb 11/10/2021 Overview (11/10/2021): Added automatically from request for surgery [id number] Trigger index finger of left hand 11/10/2021 Overview (11/10/2021): Added automatically from request for surgery [id number] COVID-19 virus infection 11/25/2020 Overview (12/05/2021): Last [...] Team Description 04/03/2024 2:00 PM EST Follow-Up [facility] [address] [place] [address] Luis Minor MD Adhesive capsulitis of left shoulder (Primary Dx) from Last 3 Months Family History Medical [...] 08/08/2024 1:45 PM EDT Procedure visit [address] [address] Sandy Snyder DO [address] [place] [address] 10/02/2024 1:45 PM EDT Follow-Up [address] [address] Luis Minor MD [address] [place] [address] Health Maintenance Due Date Last Done Comments [...] history exists Medical Devices Implanted Type Area Educator Senior Clinical Device Identifier Shelf Expiration Date Model / Serial / Lot [place] Suture Double Loaded With White/Blue White/Black Suturetape Fibertrak Rc - [id number] Implanted:Qty: 1 on 04/02/2020 by Luis Minor MD at [facility] Implant Right: Shoulder [employer] 01/11/2023 AR-3632 / / [id number] Insurance [facility] Advance Directives * Full Code (Latest Code Status on File) Date Activated Date Inactivated Comments 04/02/2020 10:29 AM 04/02/2020 6:36 PM Healthcare Agents on File Name Relationship Healthcare Agent [facility] p Communication Pilar Olvera Sister Next of Kin [phone] (Kamala griffin) Care Teams Machine Sander Relationship Specialty Start Date End Date Clare Wilson [address] [place] [phone] PCP - General Family Medicine 09/10/23
--- OUTSIDE RECORDS SUMMARY | 2024-06-30 09:48 | XMS_ITS | Encounter Summary ---
Author Organization [facility] Address [address] [place] [address] Care Team Providers Care Business Instructor Name Role Phone Clare Wilson Annemarie Primary Care Provider [phone] Encounter Details Date Type Department Care Team (Late Contact Info) Description 01/16/2024 Orders Only [facility] Surgery [address], [place] [phone] Jesus Gillis MD [address] [place] [address] Social History Tobacco Use Types Packs/Day Years [...] Description 08/08/2024 1:45 PM EDT Procedure visit [facility] Medicine [address] [place], [place] [phone] Sandy Snyder DO [address] [place] [address] 10/02/2024 1:45 PM EDT Follow-Up [facility] Sports Medicine [address] [place] [address] Luis Minor MD [address] [place] [address] documented as of this encounter Visit Diagnoses Not on filedocumented in this encounter Care Teams Business Instructor Relationship Specialty Start Date End Date Clare Wilson [address] [place] [phone] PCP - General Family Medicine 09/10/23 documented as of this encounter
--- OUTSIDE RECORDS SUMMARY | 2024-06-30 09:48 | XMS_ITS | Encounter Summary ---
Author Organization [facility] Address [address] [place] [address] Care Team Providers Care Boom Tender Name Role Phone Clare Wilson Primary Care Provider [phone] Reason for Visit * Auth/Cert (Routine) Specialty Diagnoses / Procedures Referred By Contshanna t Referred To Contact Diagnoses Chronic left shoulder pain Chronic left shoulder pain [M25.512, G89.29] Procedures WA SHLDR ARTHROSCOP,SURG,W/ROTAT CUFF REPR WA SHLDR ARTHROSCOP,EXTEN DEBRIDE WA REPAIR BICEPS LONG TENDON ARTHROSCOPY, SHOULDER, SURGICAL;?? WITH ROTATOR CUFF REPAIR ARTHROSCOPY, SHOULDER, SURGICAL;?? DEBRIDEMENT, EXTENSIVE TENODESIS OF LONG TENDON OF BICEPS Luis Minor MD [address] [place] [address] Phone: tel: fax: Referral ID Status Reason Start Date Expiration Date Visits Re quested Visits Authorized [id number] 10/03/2023 99 99 Encounter Details Date Type [...] Description 08/08/2024 1:45 PM EDT Procedure visit [facility] [address] [place] [address] Sandy Snyder DO [address] [place] [address] 10/02/2024 1:45 PM EDT Follow-Up [address] [address] Luis Minor MD [address] [place] [address] documented as of this encounter Visit Diagnoses Diagnosis Shoulder pain- Primary Pain in joint, shoulder region documented in this encounter Admitting Diagnoses Diagnosis Shoulder pain Pain in joint, shoulder region documented in this encounter Care Teams Boom Tender Relationship Specialty Start Date End Date Clare Wilson [address] [place] [phone] PCP - General Family Medicine 09/10/23 documented as of this encounter
--- OUTSIDE RECORDS SUMMARY | 2024-06-30 09:48 | XMS_ITS | Referral Summary ---
Author Organization [facility] Address [address] [place] [address] Care Team Providers Care Nurseryman Assistant Name Role Phone Clare Wilson Annemarie Primary Care Provider [phone] Encounters Date Type Department Care Team Description 04/03/2024 2:00 PM EST Follow-Up [facility] Sports Medicine [address] [place] [address] Luis Minor MD Adhesive capsulitis of left shoulder (Primary Dx) from Last 3 Months Allergies [...] mellitus 12/05/2021 Hearing loss 12/05/2021 Overview (12/05/2021): [facility] audiology History of total hysterectom y with bilateral salpingo-oophorectomy (BSO) 12/05/2021 Lower urinary tract infectious disease Menopausal syndrome 12/05/2021 Obesity 12/05/2021 Osteoarthritis 12/05/2021 Pelvic pain in female 12/05/2021 Pernicious anemia 12/05/2021 Posttraumatic stress disorder 12/05/2021 Respiratory abnormalities 12/05/2021 Shoulder pain 12/05/2021 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 Vertigo 12/05/2021 Trigger finger of thumb 11/10/2021 Overview (11/10/2021): Added automatically from request for surgery [id number] Trigger index finger of left hand 11/10/2021 Overview (11/10/2021): Added automatically from request for surgery [id number] COVID-19 virus infection 11/25/2020 Overview (12/05/2021): Last [...] Description 08/08/2024 1:45 PM EDT Procedure visit [address] [address] Sandy Snyder DO [address] [place] [address] 10/02/2024 1:45 PM EDT Follow-Up [address] [address] Luis Minor MD [address] [place] [address] Medical Devices Implanted Type Area Phytopathology Teacher Device Identifier Shelf Expiration Date Model / Serial / Lot [place] Suture Double Loaded With White/Blue White/Black Suturetape [employer] Rc - [id number] Implanted:Qty: 1 on 04/02/2020 by Luis Minor MD at [facility] Implant Right: Shoulder [employer] 01/11/2023 AR-3632 / / [id number] Insurance [facility] [place] [id number] Advance Directives * Full Code (Latest Code Status on File) Date Activated Date Inactivated Comments 04/02/2020 10:29 AM 04/02/2020 6:36 PM Healthcare Agents on File Name Relationship Healthcare Agent Relationshi p Communication Pilar Olvera Sister Next of Kin [phone] (Kamala griffin) Care Teams Nurseryman Assistant Relationship Specialty Start Date End Date Clare Wilson [address] [place] [phone] PCP - General Family Medicine 09/10/23
--- OUTSIDE RECORDS SUMMARY | 2024-06-30 09:48 | XMS_ITS | Data Portability ---
Author Organization [place] [facility] Address [address] [place] [phone] Assessment Encounter Date Assessment Date Assessment LastModified [...] recorded. Referral speech therapy referral 2024 025 [facility] Speech & Hearing [facility], [address] [place] [address] [place], [address], 04/29/2024 10:52:29 Procedures None recorded. Surgeries None [...] Address Organization Details Recorded Time Bilateral tinnitus 84624100656 02 Active 2015 Tinnitus, bilateral ; Note: Date Diagnosed : 06/22/2015 2:10 PM (H93.13) Not Available [facility] 4 02:46:51 Otitis externa of bilateral ears 39029461989 34537 Active 2015 Other otitis externa, bilateral ; Note: Date Diagnosed : 05/12/2015 12:59 AM (H60.8X3) Not Available [facility] 4 02:46:49 Dizziness and giddiness 814080032 Active 2015 Dizziness and giddiness ; Note: Date Diagnosed : 06/22/2015 2:10 PM (R42) Not Available [facility] 4 02:46:50 Pain of temporoma ndibular joint 47667825 Active 2015 Arthralgi a of temporoma ndibular joint; Note: Date Diagnosed : 05/12/2015 12:58 AM (M26.62) Not Available [facility] 4 02:46:52 Impacted cerumen in right ear 60539508618 53232 Active 2017 Impacted cerumen, right ear; Note: Date Diagnosed : 03/06/2017 4:03 PM (H61.21) Not Available [facility] 4 02:46:52 Sensorine ural hearing loss of bilateral ears 588718365 Active 2015 Sensorine ural hearing loss, bilateral ; Note: Date Diagnosed : 06/22/2015 2:10 PM (H90.3) Not Available [facility] 4 02:46:54 Impacted cerumen of bilateral ears 71864363954 30798 Active 2016 Impacted cerumen, bilateral ; Note: Date Diagnosed : 08/08/2016 2:34 PM (H61.23) Not Available [facility] 4 02:46:56 Diffuse otitis externa 55852338 Active 2018 Diffuse otitis externa, right ear; Note: Date Diagnosed : 02/25/2018 4:53 PM (H60.311) Not Available [facility] 4 02:46:56 Nasal congestio n 68105819 Active 2023 JUAN PABLO KABA MD [address] [facility],[place] [address], [place], [phone] , [place] - [facility] 4 21:32:56 Foreign body in right ear 96726058587 671378 Active 2023 JUAN PABLO KABA MD [address] [facility],[place] [address], [place], [address] , [place] - [facility] 4 21:33:01 Chronic hoarsenes s 15830348417 05 Active 2024 FARHEEN ARMSTRONG PA-C [address] [place] [address],[place] [address], [place], [phone] , [place] - [facility] 5 11:50:32 Gastroeso phageal reflux disease without esophagit is 882711862 Active 2024 FARHEEN ARMSTRONG PA-C [address] [facility],[place] [address], [place], [phone] , [place] - [facility] 5 12:33:50 Problem Notes None recorded. Procedures Surgical History Date Name Laterality Status Provider Name and Address Organization Details Recorded Time 5 FOL_DP completed FARHEEN ARMSTRONG PA-C [address] [facility], [place], [address], [facility] - [facility] 04/25/2024 12:31:13 4 Removal of foreign body from ear canal completed JUAN PABLO KABA MD [address] [facility], [place], [address], [facility] - [facility] 10/07/2023 21:35:30 Imaging Results Imaging Date Name [...] oil oral 2015 active Medicati on ID: [id number] D uration Value: 23 Brand Name: mineral [...] mg tablet 2015 active Medicati on ID: [id number] D uration Value: 5 Brand Name: naproxen [...] mg tablet 2015 active Medicati on ID: 554919 D uration Value: 30 Brand Name: ranitidi [...] mg tablet 02/25 completed Medicati on ID: [id number] D uration Value: 30 Brand Name: sertrali ne Send Method: E-Prescr ibed Sub s Allowed: subs OK Medic ationGen ericName : sertrali ne Not Available Not Available Not Available prednison e 5 mg tablet active Not Available Not Available Not Available quetiapin e 200 mg tablet 02/25 completed Medicati on ID: [id number] D uration Value: 30 Brand Name: quetiajc [...] mg tablet 03/07 completed Medicati on ID: 895837 D uration Value: 10 Prescri bed By [...] 2 hr 2015 active Medicati on ID: [id number] D uration Value: 30 Brand Name: carbamaz [...] mg capsule 2015 active Medicati on ID: 872095 D uration Value: 12 Brand Name: progeste [...] mg capsule 02/25 completed Medicati on ID: 253564 D uration Value: 30 Brand Name: gabapent [...] mg tablet 2015 active Medicati on ID: 026488 D uration Value: 30 Brand Name: diazepam Send Method: E-Prescr ibed Sub s Allowed: subs OK Medic ationGen ericName : diazepam Not Available Not Available Not Available amoxicill in 875 mg-potass ium clavulana te 125 mg tablet 05/29 completed Medicati on ID: [id number] D uration Value: 20 Reason: () Brand [...] ous solution 2015 active Medicati on ID: 636272 D uration Value: 28 Brand Name: Xolair [...] n capsules 2015 active Medicati on ID: 467124 D uration Value: 30 Brand Name: Spiriva [...] mg capsule 2015 active Medicati on ID: 550298 D uration Value: 20 Brand Name: butalbit [...] Updated DateTime 04/25/2024 154.94 cm 32.7 kg/m2 90075.48 g Saima Morejon [place] - [facility] 04/25/2024 11:00:15 Social History None recorded. Functional [...] SNOMED-CT Code Diagnosis ICD10 Code Diagnosis Note [id number] JUAN PABLO KABA MD [facility] on [address] [place] [address] 10/02/2023 09:52:16 10/02/2023 12:00:59 Foreign body in right ear [id number] 1271157 T16.1XXA Nasal congestion 7216093 0 R09.81 63-year-ol d female presents today [...] her hearing. She may follow-up as needed. [id number] FARHEEN ARMSTRONG PA-C [facility] [address] [address] 04/25/2024 10:31:44 04/25/2024 11:53:14 Chronic hoarseness 7782215875 105 R49.0 Gastroesop hageal reflux disease without esophagitis 124678226 K21.9 Health Concerns Section Related Observation LastModified by Organization Detai ls LastModified Time None Recorded Concern Status LastModified by Organization Details LastModified Time None Recorded Advance Directives Directive None Recorded Payers Insurance Date Sequence Insurance Name Policy Number Policy Valdez Covered Member ID Valdez Member ID Guarantor Name 04/22/[address] [facility] - DOS ON OR AFTER 2022 - MEDICARE [place]VANTAGE [place] (MEDICARE REPLACEMENT/ADV ANTAGE - PPO) Elizabeth Huang [id number] Elizabeth Huang Notes Date Note Type Note [...] pain. No epistaxis. JUAN PABLO KABA MD [address] [place] [address], [phone], [place] - [facility] 10/07/2023 21:36:00 04/25/2024 text/html 63 year old [...] that she is prediabetic. SULEMAN SCHULTZ MD [address] [place] [address] [address], [place], [address], [place] - [facility] 04/25/2024 16:52:12 OBGyn Episode No OBEpisode recorded.
--- OUTSIDE RECORDS SUMMARY | 2024-06-30 09:49 | XMS_ITS | Data Portability ---
Author Organization [employer] [employer] Address [address] [place] [address] Care Team Providers Care Retail Assistant Manager Name Role Phone HIM CCA OTHER PONCHO BAHENA Primary Care Provider [phone] Assessment Encounter Date Assessment Date Assessment LastModified by Organization Details LastModified Time 04/21/2024 04/21/2024 I provided real -time medical direction via phone for this encounter and was available for additional phone-based assistance as needed. I have reviewed and agree with the Assessment and Plan as documented by the Diamond Mounter. Patient given the opportunity to ask questions. Our service contacted for an assessment of: Palpitations As per above, patient with a history of excessive caffeine intake and generalized anxiety disorder. Calls this service for concern of racing heart rate after stating she had excessive caffeine intake. Denies dyspnea on exertion and shortness of breath. Per supervisor char house on the scene, vital signs are stable [...] assessment and plan as documented by the supervisor char house. I provided real-time medical direction for this encounter and was immediately available to provide additional phone-based assistance as needed. HPI: 63 F presenting with disconnected nerve stimulator. Was implanted last week. No pain or symptoms, otherwise feels well. VSS. Area of stimulator appears well, clean, dry. Exam otherwise unremarkable per the supervisor char house. Wires reconnected. Impression/Plan: Wires reconnected, questions answered. [...] other concerns. paysola Not available 05/31/2024 15:23:15 06/22/2024 06/22/2024 Ms. Huang is a 63 yo F with COPD/Asthma, Severe Persistent Mental Illness (SPMI), Hypertension, Anxiety Disorder, Rheumatoid Arthritis who is calling today about R knee pain. Per patient and medic, she is calling today about R knee pain. Pt states R knee is locking up on her and she says it is hot to the touch. Pt states she saw her Ortho provider and they recommended she start physical therapy. Pt denies fever or chills. Pt reports she has her first PT appointment tomorrow around 3pm. Pt states her [facility]NA nurse felt her R knee might be more swollen then normal too. R knee is swollen with the medic. Maxing out tylenol and motrin because of the pain. Hasn't been trying heat or ice. Knee is medially tender to touch along the joint line. Thinks that it was originally from the knee giving out while walking a while. R knee is swollen. But not red or warm. No open wounds. Is not on AC. Hasn't had any imaging of that knee ever. Had ibuprofen last at 10am. No renal history. Likely patient had injury to meniscus or ACL given the mechanism and persistent pain and sx. Would recommend XR and consideration for MRI imaging. No c/f acute fx or dislocation given the duration of sx. With her weight and risk factors, consider also OA and benefit of steroid injections vs discussion adjunct faculty for medical terminology about partial vs total knee replacement, contingent on imaging, etc. Plan: -30mg IM toradol. Advised for outpatient imaging of the XR and outpatient ortho. Update: -ultimately, patient feels like her pain is too severe to wait until tomorrow. Requesting ER and plan for transfer to [facility]. -signed out at 8:07pm. Jefe MAHARAJ I provided real -time medical direction via phone for this encounter, and was available for additional phone based assistance as needed. I have reviewed and agree with the Assessment and Plan as documented by the Diamond Mounter. We discussed the diagnostic uncertainty of home visits and the risk associated with this. In this case the patient and I felt transfer to the ER was safest for disposition and continued care as their needs exceeded what could safely be supported in the home setting. [email or web address] Not available 06/22/2024 20:07:33 Plan of Treatment Reminders Order Date Submit Date Provider Last Modified By Organization Details Last Modified Time Details Appointments None recorded. Lab None recorded. Referral None recorded. Procedures None recorded. Surgeries None recorded. Imaging None recorded. Medication Orders ketorolac 30 mg/mL injection solution 2024 025 [email or web address] i7 [facility], [address] [place] [address], [id number], 19:46:05 ketorolac 30 mg/mL injection solution 2024 025 gbaci [facility], [address] [place] [address], [id number], 18:04:09 Patient TargetsNo targets recorded. Patient InstructionsNo instructions recorded. Reason for Referral None Reported. Results Created Date Observation Date Name Description Value Unit Range Abnormal Flag Note LastModifiedBy Organization Detail LastModifiedTime 03/27/1903/27/2024 rapid strep group A, throa t Strep negati ve Not Available [facility] [address] [place] [address], [phone] 03/27/2024 11:54:46 03/29/1903/29/2024 rapid SARS CoV 2 Ag, QL IA, respi rator y speci men rapid SARS CoV 2 Ag, QL IA, respiratory specimen negati ve Not Available [facility] [address] [place] [address], [phone] 03/29/2024 18:05:28 03/29/19 25 03/29/2024 rapid flu (A+B) Flu negati ve Not Available [facility] [address] [place] [address], [phone] 03/29/2024 18:05:28 Result Notes None recorded. Medical [...] Not available 04/30/2022 7052 RxNorm [facility] Available [facility] 03:41:14 2120 Augmentin medicatio n diarrhea Not available [facility] 04/30/2022 37672 2 RxNorm EMELY DHILLON MD [address] [place] [address],[address], [place], [phone], [facility] 4 09:58:09 4312 Bactrim medicatio n Not available Not available Not available 02/20/2023 72889 9 RxNorm Not Available [facility] - production 4 03:41:14 4313 sulfameth oxazole / trimethop rim medicatio n Not available Not available Not available 02/20/2023 74443 RxNorm Marita Ramos MD [address] [place] [address],[address], [place], [phone], [facility] 4 14:13:42 4314 doxycycli ne Not available Not available Not available Not available 02/20/2023 3640 RxNorm Not Available [facility] - production 4 03:41:14 5895 Seroquel medicatio n Not available Not available Not available 09/30/2023 55526 RxNorm EMELY DHILLON MD [address] [place] [address],[address], [place], [address], [facility] 4 18:08:17 5896 fluoxetin e medicatio n Not available Not available Not available 09/30/2023 4493 RxNorm EMELY DHILLON MD [address] [place] [address],[address], [place], [address], [facility] 4 18:08:31 5897 nabumeton e medicatio n Not available Not available Not available 09/30/2023 71797 RxNorm EMELY DHILLON MD [address] [place] [address],[address], [place], [address], [facility] 4 18:08:46 5898 propranol ol medicatio n Not available Not available Not available 09/30/2023 8787 RxNorm EMELY DHILLON MD [address] [place] [address],[address], [place], [address], [facility] 4 18:09:03 7995 Product containin g penicilli n (product) medicatio n Not available Not available Not available 12/11/2023 35453 8001 SNOMED Not Available [facility] - production [...] propionate 50 mcg/actuatio n nasal spray,suspen zoe [place] 1 spray every day by intranasal route. [...] mm[Hg] Not Available [facility] - production 5 18:36:07 Date Recorded Oxygen saturation Oxygen saturation in Arterial blood by Pulse oximetry Body temperature Heart rate Respiratory rate Systolic blood pressure Diastolic blood pressure Provider Name and Address Organization Details Last Updated DateTime 5 99 % 99 % 98.2 [degF] 78 /min 16 /min 134 mm[Hg] 84 mm[Hg] Not Available [email or web address] - production 5 20:25:47 Date Recorded Respiratory rate Heart rate Body weight Body temperature Body height Oxygen saturation Oxygen saturation in Arterial blood by Pulse oximetry Systolic blood pressure Diastolic blood pressure Provider Name and Address Organization Details Last Updated DateTime 5 20 /min 59 /min 95216.4 16 g 97.9 [degF] 154.94 cm 98 % 98 % 118 mm[Hg] 80 mm[Hg] Not Available [email or web address] - production 5 18:00:08 Date Recorded Heart rate Oxygen saturation Oxygen saturation in Arterial blood by Pulse oximetry Respiratory rate Body temperature Systolic blood pressure Diastolic blood pressure Provider Name and Address Organization Details Last Updated DateTime 5 73 /min 94 % 94 % 18 /min 98.2 [degF] 118 mm[Hg] 72 mm[Hg] Not Available [facility] 5 15:20:30 Date Recorded Body height Respiratory rate Heart rate Body temperature Body weight Oxygen saturation Oxygen saturation in Arterial blood by Pulse oximetry Systolic blood pressure Diastolic blood pressure Provider Name and Address Organization Details Last Updated DateTime 5 154.94 cm 20 /min 67 /min 97.4 [degF] 44164.7 2 g 97 % 97 % 144 mm[Hg] 70 mm[Hg] Not Available [email or web address] 5 19:42:21 Social History None recorded. Functional Status None [...] 112 Amisha Huntley MD Main - [facility] [address] [place] [address] 03/31/2021 20:59:17 08/30/2021 11:57:03 Osteoarthritis of right knee joint 8462269741 91048 M17.11 Pain of ri ght knee joint 5119266755 41221 M25.561 1721 Luis Cutler MD Main - [facility] [address] [place] [address] 07/03/2021 12:08:30 10/26/2021 13:35:38 Urinary tract infectious disease 17364341 N39.0 This order set is for complicate d UTIs -- those with concern for early pyelo, abnormal anatomy, indwelling catheter, or other higher-ris k features. For MDRO options see UTI-MDRO Kidney stone 85674956 N2 0.0 Acute cystitis 78977582 N30.00 These are first-line agents for lower-risk , uncomplica sharmin UTI. For resistance concerns, early pyelo, or other complicati ons, see complicate d UTI [id number] Maryanne Yip MD Main - [facility] [address] [place] [phone] 09/04/2021 13:33:24 10/18/2021 16:29:06 Pain in right foot [id number] 99489 M79.671 Pt p/w acute onset atraumatic foot [...] assessment and plan as documented by the supervisor char house. I provided real time medical direction for this encounter and was immediatel y available to provide additional phone based assistance as needed. [id number] Luis Cutler MD Main - [facility] [address] [place] [phone] 12/04/2021 16:52:50 12/05/2021 14:55:01 Upper respiratory infection 26053265 J06.9 6649 Amisha Huntley MD Main - [facility] [address] [place] [phone] 0 02/11/2022 14:16:07 02/14/2022 16:09:43 COVID-19 743645330 U07.1 pat on carbamazep ine expl paxlovid [...] send refill- she requests Rx go to [facility] in [facility] due to holiday weekend( nl uses [facility]) Due to dark green sputum may have bacterial superinfec tion in sinuses or lungs will cover w/ azithromyc in which she reports she tolerates well. Advised Tylenol for pain/ fever has 500 mg caps- can take 1000 mg 3x /24 hrs based on her stated weight [id number] Luis Soto MD Main - [facility] [address] [place] [phone] 02/14/2022 19:31:12 02/16/2022 10:53:42 COVID-19 [id number] U07.1 [id number] Rogelio Vasquez MD Main - [facility] [address] [place] [phone] 02/18/2022 19:38:25 02/20/2022 10:27:07 Acute exacerbation of chronic obstructive pulmonary disease 519034025 J44.1 Wheezing on exam. Was not candidate for anti-viral s for COVID. Prednisone improved symptoms. WIll rx for additional 5 days. COVID-19 866625839 U07.1 Was not candidate for anti-viral s. Prednisone improved symptoms. WIll rx for additional 5 days. 7057 Maryanne Yip MD Main - [facility] [address] [place] [phone] 0 02/26/2022 16:27:03 02/28/2022 12:34:42 Exacerbation of moderate persistent asthma 225494902 J45.41 Pt with recent COVID infection (now [...] assessment and plan as documented by the supervisor char house. I provided real time medical direction for this encounter and was immediatel y available to provide additional phone based assistance as needed. 7393 Luis Cutler MD Main - [address] [phone] 03/12/2022 21:49:28 03/14/2022 10:01:04 Postviral cough 611884294 R05.3 As noted, we were called to see this patient regarding concerns of cough and respirator y symptoms following COVID and PNA, treated with cefpodoxim e and possibly also azithro. Evaluation in the field was performed by my supervisor char house colleague, as noted above, I provided real-time [...] 7820 Luis Soto MD Main - [facility] [address] [place] [phone] 0 03/30/2022 16:57:05 04/06/2022 14:01:29 Acute urinary tract infection 820638647 N39.0 7909 Mandy Portillo MD Main - [facility] [address] [place] [address] 0 04/03/2022 20:15:34 04/06/2022 15:58:00 Viral upper respiratory tract infection 350062838 J06.9 8239 Maryanne Yip MD Main - [facility] [address] [place] [address] 0 04/16/2022 13:22:29 04/18/2022 09:19:04 Productive cough 90642809 R05.9 Evaluation in the field was performed by my supervisor char house colleague, as noted above, I provided real-time [...] 8475 Mandy Portillo MD Main - [facility] [address] [place] [phone] 0 04/24/2022 18:57:17 04/26/2022 10:49:34 Flank pain 745787674 R10.9 8654 Amisha Huntley MD Main - [facility] [address] [place] [address] 0 04/30/2022 18:17:58 05/02/2022 09:44:42 Pain of right shoulder joint 9052826707 4712617 M25.511 pat had nl renal function 03/02/22( [...] she verbalized understand ing of instructio ns 1787 Rogelio Vasquez MD Main - [facility] [address] [place] [address] 0 05/21/2022 19:11:05 05/22/2022 10:54:13 Paronychia of finger of right hand 3344261827 7102798 L03.011 No s/s of cellulitis . Advised to do warm soaks and if persistent pain to go to PCP for removal of potential ingrown nail 9523 Mandy Portillo MD Main - [facility] [address] [place], [place] [phone] 0 05/29/2022 18:58:29 05/30/2022 11:45:45 Pain in right thumb 0379467680 434605 M79.644 [id number] Maryanne Yip MD Main - [facility] [address] [place], [place] [phone] 06/17/2022 12:55:35 06/19/2022 10:39:24 Thoracic back pain 035245040 M54.6 Evaluation in the field was performed by my supervisor char house colleague, as noted above, I provided real-time [...] shortness of breath, cough, chest pain, fever. 62206 Kindra Wright MD Main - [facility] [address] [place] [address] 0 07/03/2022 20:06:35 07/04/2022 15:03:54 Rheumatoid arthritis 20212975 M06.9 [id number] Luis Cutler MD Main - [facility] [address] [place] [address] 0 07/08/2022 12:56:39 07/10/2022 18:48:54 Pain 82015550 R52 As noted, we were called to see this patient regarding concerns of pain in rib and with inspiratio n subsequent to fall. Evaluation in the field was performed by my supervisor char house colleague, as noted above, I provided real-time [...] LH, or anything unusual. Fracture of rib 01122965 S22.32XA [id number] TO[facility]O VARELA [facility] [address] [place] [address] 0 07/09/2022 13:21:31 07/10/2022 19:03:27 Rib pain 744887512 R07.[id number] [facility] - [address] [address] 0 07/11/2022 20:04:39 07/12/2022 09:35:01 Chronic obstructive pulmonary disease 75142750 J44.9 [id number] Yuliya Maldonado MD Main - [address] [address] 0 07/16/2022 16:26:39 07/26/2022 10:17:58 Rib pain 394986292 R07.81 case supervised and discussed with supervisor char house. Patient was given opportunit y to ask questions, warning signs/symp toms of pertinent medical emergency reviewed. mechanical fall several weeks ago, seen at two different [facility] without identified etiology on imaging (xrays, no fractures) but prescribed oxycodone. Continues to experience excruciati ng pain, reproducib le on palpation. Explained to patient that [facility] does not have any imaging capabiliti es for diagnostic purposes, so wont be able to provide much additional insight to the etiology of her acute pain. Pt adamant she wanted a diagnosis JERMAINE and additional therapeuti cs, for which I explained she would have to present to the ED. Pt requested supervisor char house call ambulance. [id number] Abida [facility]cleod MD [facility] [address] [place] [phone] 0 08/27/2022 13:28:03 08/28/2022 12:04:02 Urinary symptoms 740942178 R39.9 61 year old female being evaluated [...] new symptoms before culture data are available. 39001 Mandy Portillo MD Main - [facility] [address] [place] [address] [phone] 0 08/27/2022 18:13:48 06/13/2024 12:51:11 Pain 03939626 R52 [id number] Amisha Huntley MD Main - [facility] [address] [place] [address] 69569[address]969 0 09/04/2022 11:12:04 09/04/2022 16:13:04 Sinus headache 7946281 R51.9 Patient is already taking Johanny and [...] time which I discussed with the patient [id number] Maryanne Yip MD Main - [facility] [address] [place] [phone] 0 09/11/2022 19:18:28 09/11/2022 23:12:11 Contact dermatitis 58613124 L25.9 Evaluation in the field was performed by my supervisor char house colleague, as noted above, I provided real-time [...] shortness of breath, cough, chest pain, fever. [id number] Yuliya Maldonado MD Main - [facility] [address] [place] [address]817 0 09/23/2022 17:13:29 09/26/2022 15:32:41 Pain in throat 329287402 R07.0 1-2 d sore throat iso increased exposure to high volume AC. Strep negative. Some possible sick contacts. No fevers/chi lls or other infectious sx on exam or history. takes johanny bid, endorses post nasal drip but states that any nasal spray gives her a head ache. Dicsussed monitoring and supportive care with tea/honey etc. Warning signs/sx reviewed, pt and supervisor char house agree with plan. 67718 Liam Cheung MD Main - [facility] [address] [place] [address]475 0 09/24/2022 13:32:56 09/26/2022 15:37:52 Acute pharyngitis 705920586 J02.9 Patient with pharyngiti s/laryngit is. No signs of bacterial superinfec tion. POC COVID and Strep neg. Advised continued supportive care. 29943 Amisha Huntley MD Main - [facility] [address] [place] [address]769 0 09/30/2022 18:28:05 10/02/2022 07:15:34 Acute exacerbation of chronic obstructive pulmonary disease 456726669 J44.1 With possible minor URIadvised to use [...] y, but her blood sugar is normal 66501 Marita Ramos MD Main - [facility] [address] [place] [address] [phone] 0 10/12/2022 13:11:26 10/12/2022 19:18:57 Respiratory tract congestion and cough 995468221 R05.9 05550 Jas Woodall MD Main - [facility] [address] [place] [address] 79189[address]110 0 10/14/2022 11:55:33 10/16/2022 20:25:38 Pain of right wrist 8640939041 65378 M25.531 Dizziness 198550040 R42 [id number] Elizabeth Victoria MD Main - [facility] [address] [place] [address] 82731-921 0 10/19/2022 20:24:42 10/19/2022 23:38:55 Dysuria 85038599 R30.0 Urinary symptoms 6599789 08 R39.9 15500 Yuliya Maldonado MD Main - [facility] [address] [place] [address] 98874-298 0 10/29/2022 10:52:45 12/12/2022 15:05:16 Cough 38796032 R05.9 I provided real -time medical direction via phone for this encounter, and was available for additional phone based assistance as needed. I have reviewed and agree with the Assessment and Plan as documented by the Diamond Mounter. Patient given the opportunit y to ask [...] Reviewed supportive care strategies and warning signs/sx. [id number] Elizabeth Victoria MD Main - [facility] [address] [place] [address] [phone] 0 10/31/2022 19:47:09 11/01/2022 12:07:59 Acute viral pharyngitis 858603512 J02.9 [id number] Abida Mcleod MD Main - [facility] [address] [place] [address] [phone] 0 11/03/2022 19:45:46 11/05/2022 18:05:51 Pharyngitis 370773753 J02.9 62 year old female being evaluated [...] assessment and plan as documented by the supervisor char house. I provided real-time medical direction for this encounter and was immediatel y available to provide additional phone-base d assistance as needed. [id number] [facility]ip MD [facility] [address] [place] [phone] 0 11/05/2022 11:22:03 11/05/2022 18:18:37 Acute pharyngitis 636640779 J02.9 Evaluation in the field was performed by my supervisor char house colleague, as noted above, I provided real-time [...] shortness of breath, cough, chest pain, fever. [id number] Mandy Portillo MD Main - [facility] [address] [place] [address] 15203-801 0 12/19/2022 20:38:38 12/27/2022 18:34:30 Hoarse 04637036 R49.0 [id number] Marita aRmos MD Main - [facility] [address] [place] [address] 67177-282 0 12/21/2022 15:09:02 12/22/2022 13:12:24 Nausea and vomiting 48861788 R11.2 [id number] Luis Cutler MD Main - [facility] [address] [place] [address] [phone] 0 12/24/2022 17:29:23 12/25/2022 14:41:46 Cellulitis 615900184 L03.90 As noted, we were called to see this patient regarding concerns of cellulitis . Evaluation in the field was performed by my supervisor char house colleague, as noted above, I provided real-time [...] particular ly high fever, unresolvin g pain. [id number] Marita Ramos MD Main - [facility] [address] [place] [address] 21508-824 0 12/27/2022 19:57:19 12/27/2022 22:46:42 Cellulitis 827065774 L03.90 [id number] Elizabeth Victoria MD Main - [facility] [address] [place] [address] 42701-257 0 01/23/2023 20:58:40 01/24/2023 13:37:45 Acute sinusitis 54897518 J01.90 [id number] EMELY DHILLON MD Main - [facility] [address] [place] [address] 24462-192 0 01/27/2023 19:31:06 01/30/2023 10:07:25 Abscess [id number] L02.91 As noted, we were called to see this patient regarding concerns of recurring right nostril abscess Evaluation in the field was performed by my supervisor char house colleague, as noted above, I provided real-time [...] surgeon, but no appt available until May.Per supervisor char house exam, right nostril blocked completely with puss Impression :Right nare abscess Plan:Pt was send to ED for I& D and possible IV antibiotic sNo Tramadol give since increases risk of bleeding during the I&D Primary care, consider__ _ Dispositio n: We discussed the situation and I recommende d referral to the emergency department . [id number] Yuliya Maldonado MD Main - [facility] [address] [place] [address] 44068-788 0 02/17/2023 18:16:57 02/18/2023 15:31:40 Acute urinary tract infection 242438797 N39.0 62 yo h/o recurrent UTis today p/w 1d severe flank pain. UA positive for LE and nitrites. Pt is in significan t distress 2/2 pain on exam, reports this is much worse than prior. Requesting transport to ED. [id number] Marita Ramos MD Main - [facility] [address] [place] [address] 86405-230 0 02/20/2023 14:07:45 02/21/2023 11:03:01 Renal angle tenderness 413707427 R10.829 Dysuria 52772654 R30.0 51181 Rangel Robledo MD Main - [facility] [address] [place] [address] 28073-229 0 02/23/2023 17:39:45 02/26/2023 17:26:50 Chronic thoracic back pain 6786921060 19065 M54.6 56018 Ninoska Juarez MD Main - [facility] [address] [place] [address] 64535-829 0 03/10/2023 16:45:25 03/11/2023 15:32:12 Viral upper respiratory tract infection 971561518 J06.9 [id number] Elizabeth Victoria MD Main - [facility] [address] [place] [address] 76324-871 0 04/10/2023 20:36:05 04/11/2023 17:22:36 Pain in left foot 2436271066 27587 M79.672 60996 Sam Perez MD Main - [facility] [address] [place] [address] 57108-802 0 04/25/2023 15:11:36 04/25/2023 22:44:01 Pain in left arm 934943355 M79.602 This 62-year-ol d female has a three month history of left upper back and shoulder pain with no history of trauma. She has been taking Tylenol, but today the pain is worse. I ordered Toradol 15 mg IM. I also recommende d she alternate ibuprofen with the Tylenol. She will follow-up with her PCP. The patient agreed with this plan. [id number] Elizabeth Victoria MD Main - [facility] [address] [place] [address] [phone] 0 05/10/2023 20:23:10 05/14/2023 18:12:54 Acute urinary tract infection 039042629 N39.0 servce called for abd painfound 62 girish withDiabet es,COPD/As thma,Hyper tensionrec urrent UTIc/o 2-3 lower abd pain, urinary frequency, back painmost recent UCx 10/2022 with mixed floraAll: augmentin, bactrimVS noted elev BPreported examabd tender LLQ and RLQ #UTIempiri c macrobidf/ up Ucx [id number] Mandy Portillo MD Main - [facility] [address] [place] [id number] 05/29/2023 21:28:01 05/29/2023 22:30:30 Urinary symptoms [id number] R39.9 [id number] Sara Rucker MD Main - instED [address] [place] [address] [phone] 0 05/30/2023 13:40:04 05/30/2023 15:20:06 Pyelonephritis [id number] N12 Urinary symptoms [id number] R39.9 [id number] Ninoska Juarez MD Main - inst[facility] [address] [place] [address] [phone] 0 06/17/2023 20:18:31 06/19/2023 11:51:51 Community acquired pneumonia [id number] J18.9 [id number] Abida Mcleod MD Main - instED [address] [place] [address] [phone] 0 07/02/2023 18:08:47 07/03/2023 17:43:48 Abdominal pain [id number] R10.9 62 year old female being evaluated [...] assessment and plan as documented by the supervisor char house. I provided real-time medical direction for this encounter and was immediatel y available to provide additional phone-base d assistance as needed. We discussed the diagnostic uncertaint y of home visits and associated risks. We discussed the need to seek care urgently/e mergently in the setting of any new or worsening symptoms. [id number] EMELY DHILLON MD Main - instED [address] [place] [address] [phone] 0 07/14/2023 20:33:44 07/16/2023 10:38:00 Urinary symptoms [id number] R39.9 Evaluation in the field was performed by my supervisor char house colleague, as noted above, I provided real-time [...] plan for BMP and IV hydration, but supervisor char house unable to place a PIV or draw [...] pain CVA tenderness or any other concerns. [id number] EMELY DHILLON MD Main - [address] [phone] 0 07/15/2023 20:22:18 07/16/2023 10:43:33 Left lower quadrant pain [id number] R10.32 Evaluation in the field was performed by my supervisor char house colleague, as noted above, I provided real-time [...] Department Primary care, consider__ _ Dispositio n:ER [id number] Marita Ramos MD Main - [address] [phone] 0 07/25/2023 08:03:15 07/26/2023 09:54:40 Seasonal allergy [id number] J30.[id number] [facility] - [address] [id number] 0 09/28/2023 18:39:05 09/28/2023 20:43:24 Pain of left shoulder joint [id number] M25.512 63 year old female being evaluated [...] assessment and plan as documented by the supervisor char house. I provided real-time medical direction for this encounter and was immediatel y available to provide additional phone-base d assistance as needed. We discussed the diagnostic uncertaint y of home visits and associated risks. We discussed the need to seek care urgently/e mergently in the setting of any new or worsening symptoms. [id number] EMELY DHILLON MD Main - [address] 46023-765 0 09/30/2023 18:55:46 10/01/2023 12:23:23 Pain of left shoulder joint [id number] 0003781 M25.512 Evaluation in the field was performed by my supervisor char house colleague, as noted above, I provided real-time [...] arm, CP, SOB or any other concerns. [id number] EMELY DHILLON MD Main - instED [address] [place] [address] [phone] 0 10/03/2023 18:14:26 10/04/2023 12:20:55 Pain of left shoulder joint [id number] M25.512 Evaluation in the field was performed by my supervisor char house colleague, as noted above, I provided real-time [...] vomiting. The patient [facility] hours prior to the visit. VSS.Exam [...] for Lid[facility] , so [...] arm, CP, SOB or any other concerns. [id number] EMELY DHILLON MD Main - instED [address] [place] [address] [phone] 0 10/12/2023 09:53:35 10/12/2023 22:05:57 Acute sinusitis [id number] J01.90 Evaluation in the field was performed by my supervisor char house colleague, as noted above, I provided real-time [...] first dose was administer ed by the supervisor char house. -A prescripti on for Flonase was sent [...] tolerate PO, weakness or any other concerns. [id number] EMELY DHILLON MD Main - [facility] [address] [place] [address] [phone] 0 11/08/2023 17:29:57 11/08/2023 23:24:56 Candidal intertrigo [id number] B37.2 Evaluation in the field was performed by my supervisor char house colleague, as noted above, I provided real-time direction and supervisio n for this visit. The evaluation revealed a 63-year-ol d female with a past medical history of diabetes mellitus, COPD, hypertensi on, and chronic shoulder pain, presenting with complaints of a fungal infection under both breasts. The patient reports she went to [facility] ED on 11/04 for a rash [...] rash in new areas any other concerns. [id number] Marita Ramos MD Main - [facility] [address] [place] [address] [phone] 0 11/12/2023 14:09:08 11/13/2023 13:10:59 Candidal intertrigo [id number] B37.2 [id number] Jas Woodall MD Main - [facility] [address] [place] [address] [phone] 0 11/29/2023 11:03:27 11/29/2023 15:42:06 Pain of shoulder region [id number] M25.519 [id number] Marita Ramos MD Main - [facility] [address] [place] [address] [phone] 0 12/15/2023 15:20:51 12/15/2023 19:16:04 Pruritic rash 50280668 L28.2 [id number] Luis Cutler MD Main - [facility] [address] [place] [address] [phone] 0 12/16/2023 20:24:02 12/17/2023 00:34:23 Pain of bilateral hands [id number] 4781156 M79.641 As noted, we were called to see this patient regarding concerns of hand pain. Evaluation in the field was performed by my supervisor char house colleague, as noted above, I provided real-time [...] today Primary care, considerch asim in call [id number] KATE KESSLER MD Main - [facility] [address] [place] [address] [phone] 0 01/03/2024 17:27:17 01/03/2024 18:46:50 Pain of right knee joint [id number] 54942 M25.561 [id number] Wes Regan MD Main - [facility] [address] [place] [address] [phone] 0 01/16/2024 19:06:51 01/17/2024 08:57:49 History of operative procedure on shoulder 056284994 Z98.890 [id number] Luis Cutler MD Main - [facility] [address] [place] [address] [phone] 0 01/20/2024 18:38:49 01/20/2024 21:54:58 Pain of shoulder region 18713190 M25.519 As noted, we were called to see this patient regarding concerns of severe shoulder pain apparently due to an injury in a sensitive recently post-op patient. Evaluation in the field was performed by my supervisor char house colleague, as noted above, I provided real-time direction and supervisio n for this visit. Impression :Severe shoulder pain, refractory to OTC APAP Plan:IV or IM ketorolac 30 mg [id number] Marita Ramos MD Main - [facility] [address] [place] [address] [id number] 0 02/10/2024 17:37:40 02/12/2024 21:08:43 Urinary symptoms [id number] R39.9 [id number] EMELY DHILLON MD Main - [facility] [address] [place] [address] [phone] 0 02/16/2024 20:12:37 02/18/2024 00:14:16 Pain of left shoulder joint [id number] 2168613 M25.512 Evaluation in the field was performed by my supervisor char house colleague, as noted above, I provided real-time [...] arm, CP, SOB or any other concerns. [id number] Loi uW MD Main - [facility] [address] [place] [address] [phone] 0 02/28/2024 13:48:17 02/28/2024 20:22:02 Upper respiratory infection [id number] J06.9 [id number] Marita Ramos MD Main - [facility] [address] [place] [address] [phone] 0 03/05/2024 16:43:16 03/05/2024 19:19:50 Asthma 317816003 J45.909 [id number] Maryanne Yip MD Main - [facility] [address] [place] [address] [phone] 0 03/15/2024 14:54:03 03/18/2024 16:38:13 Upper respiratory infection 76259519 J06.9 Evaluation in the field was performed by my supervisor char house colleague, as noted above, I provided real-time direction and supervisio n for this visit. 63yo F asthma, HTN p/w ongoing nasal congestion , cough. On prednisone x 48 hrs without improvemen t. Denies feveres, orthopnea, PND. On supervisor char house eval sat 97% rest also wnl, exam [...] shortness of breath, cough, chest pain, fever. [id number] Rogelio Vasquez MD Main - [facility] [address] [place] [address] [phone] 0 03/16/2024 10:41:49 03/18/2024 17:02:49 Viral upper respiratory tract infection 887109064 J06.9 Patient 4 days into prednisone course. Vitals stable. Taking inhalers at home though mild wheezing noted by supervisor char house and administer ed duoneb with good effect. Declined COVID/flu testing as out of window for treatment. Discussed red flag signs for which to seek higher level of care. [id number] Rangel Robledo MD Main - inst[facility] [address] [place], [place] [phone] 0 03/27/2024 11:44:09 03/27/2024 14:25:14 Sore throat 516329177 J02.9 [id number] Ninoska Juarez MD Main - inst[facility] [address] [place], [place] [phone] 03/29/2024 17:58:44 03/30/2024 15:29:24 Pharyngitis 436006546 J02.9 [id number] Rangel Robledo MD Main - inst[facility] [address] [place], [place] [phone] 0 04/13/2024 12:47:37 04/14/2024 09:49:23 Viral upper respiratory tract infection 122197203 J06.9 Acute pharyngitis 269411 003 J02.9 [id number] Rogelio Vasquez MD Main - [facility] [address] [place] [address] [phone] 0 04/17/2024 18:32:56 04/17/2024 21:18:53 Effusion of joint of right knee 6381838950 37655 M25.461 Effusion with difficulty walking; in past has required drainage. Given severity of pain advised to go to ED for evaluation and patient in agreement in order to get aspiration . [id number] Marita Ramos MD Main - [facility] [address] [place] [address] [phone] 0 04/21/2024 20:25:45 04/22/2024 10:22:29 Generalized anxiety disorder 43720547 F41.1 [id number] EMELY DHILLON MD Main - [facility] [address] [place] [address] [phone] 0 05/03/2024 18:00:06 05/05/2024 13:55:51 Pain of right knee joint 7495388265 85076 M25.561 Evaluation in the field was performed by my supervisor char house colleague, as noted above, I provided real-time [...] VS stableExam done and discussed with the supervisor char house : R knee reveals visible swelling and [...] to move put weight on that leg [id number] Mandy Portillo MD Main - [facility] [address] [place] [address] [phone] 0 05/31/2024 15:20:28 06/02/2024 14:38:52 Complication associated with neurological device 691872575 T85.199A [id number] KYRA VACA MD Main - [facility] [address] [place] [address] [phone] 0 06/22/2024 19:35:09 06/23/2024 13:27:58 Pain of right knee joint 7736590702 13837 M25.561 Health Concerns Section Related Observation LastModified by Organization Detai ls LastModified Time None Recorded Concern Status LastModified by Organization Details LastModified Time None Recorded Advance Directives Directive None Recorded Payers Insurance Date Sequence Insurance Name Policy Number Policy Valdez Covered Member ID Valdez Member ID Guarantor Name 07/03/2023 1 [facility] - DOS PRIOR TO 2022 - DUAL ELIGIBLE (MEDICARE REPLACEMENT/ADV ANTAGE - HMO) Elizabeth Huang [id number] Elizabeth Huang 06/22/2024 1 [facility] - DOS ON OR AFTER 2022 - DUAL ELIGIBLE - PENITENTIARY OPTIONS AND ONE CARE (MEDICARE REPLACEMENT/ADV ANTAGE - HMO) Elizabeth Huang [id number] Elizabeth Huang Notes Date Note Type Note [...] ..................... ..................... ..................... ..................... ..................... ..................... ............... Diamond Mounter Note From Jacques Nix: Dispatched to the [...] [facility] ALS unit transported Pt to [facility] per her request. All times are approx. ..................... ..................... ..................... ..................... ..................... ..................... ............... [facility] Consulted: Víctor Vasquez ..................... ..................... ..................... ..................... ..................... ..................... ............... Disposition: Fulfilled Rogelio Vasquez MD [address] [place] [address],[address], [place], [phone], [employer] 04/17/2024 20:43:33 04/21/2024 text/html CRC Nurse Triage [...] Rheumatoid Arthritis PMH Reviewed at 04/21/2024 - 17:49 Allergies Reviewed at 04/21/2024 - 17:49 Comments: Psych Assistant verified the patient's name//address and phone number. [...] ..................... ..................... ..................... ..................... ..................... ..................... ............... Diamond Mounter Note From Jacques Nix: Dispatched to the [...] ..................... ..................... ..................... ..................... ..................... ............... [facility] Consulted: Marita Ramos ..................... ..................... ..................... ..................... ..................... ..................... ............... Disposition: Fulfilled Marita Ramos MD [address] [place] [address],[address] [facility], [place], [phone] [employer] 04/22/2024 08:15:29 05/03/2024 text/html CRC Nurse Triage [...] 05/03/2024 - 16:54Allergies Reviewed at 05/03/2024 - 16:54Comments: Psych Assistant verified the Pt.'s name//address and phone number. [...] ..................... ..................... ..................... ..................... ..................... ..................... ............... Diamond Mounter Note From Cheyanne Wilson: AMINA makes pt [...] in order to get around. Pt says [facility] visited her a week ago for the same thing and it has continued to get worse. She has no other complaints at this time. [facility] obtains vital signs and pt is [...] tests performed in comparison to the L. [facility] contacts [facility] and discusses the above. [facility] orders 30mg ketorolac IM for pt. [facility] administers 30mg ketorolac in the R deltoid and covers w/ an adhesive bandage. [facility] recommends pt continue w/ ice and Tylenol for pain and continue w/ elevation and limiting activity on the knee until she has her appt on Sunday. Pt is also encouraged to call back if necessary. [facility] is clear. Report completed by ROULA Wilson [id number]. [facility] Medication Orders: ketorolac 30 mg/mL injection solution: Administered ..................... ..................... ..................... ..................... ..................... ..................... ............... [facility] Consulted: Emely Dhillon ..................... ..................... ..................... ..................... ..................... ..................... ............... Disposition: Fulfilled EMELY DHILLON MD [address] [facility],[address], [place], [address], [place] [employer] 05/03/2024 19:14:21 05/31/2024 text/html CRC Nurse Triage Notes (Jaylen Escobar): Reason For Request: Pt reporting, she having trouble connecting equipment she recently got, nerve stimulator lead connect error on her remote for it Chief Complaints: Postoperative Problems PMH: COPD/Asthma, Severe Persistent Mental Illness (SPMI), Hypertension, Anxiety Disorder, Rheumatoid Arthritis PMH Reviewed at 05/31/2024: Allergies Reviewed at 05/31/2024:41 Comments: Psych Assistant verified the patient's name//address and phone number. [...] ..................... ..................... ..................... ..................... ..................... ..................... ............... Diamond Mounter Note From Satish Brtio: Encountered patient conscious, alert and seated upright. [...] bilaterally. Extremities free of trauma and edema. [facility] contacted: this copywriter notified [facility] of patient? s device issues. The device was reconnected, restarted and shortly after, according to patient ? I can feel it working and I feel better already.? [facility] states as this was a routine visit for a medical records tech failure that no further interventions or treatment [...] ..................... ..................... ..................... ..................... ..................... ............... [facility] Consulted: Mandy Portillo ..................... ..................... ..................... ..................... ..................... ..................... ............... Disposition: Fulfilled Mandy Portillo MD [address] [facility],[address], [place], [address], [employer] 05/31/2024 17:28:07 06/22/2024 text/html CRC Nurse Triage Notes (Jaylen Escobar): Reason For Request: Pt reporting that her right knee has been acting up for a while now/worsening>states she starts Physical therapy tomorrow>Denies: Valderrama ? Flash, circumferential valderrama Valderrama reported with black tissue to the area Open skin area after a fall with uncontrolled bleeding Abscess/infection with streaking noted, presence of fever or without Chief Complaints: Extremity PainPMH: COPD/Asthma, Severe Persistent Mental Illness (SPMI), Hypertension, Anxiety Disorder, Rheumatoid ArthritisPMH Reviewed at 06/22/2024:55Allergies Reviewed at 06/22/2024 - :55Pain Assessment: Level null out of 10Comments: 63 y.o female complains of Extremity PainPatient calling reporting R knee pain. Pt states R knee is locking up on her and she says it is hot to the touch. Pt states she saw her Ortho provider and they recommended she start physical therapy. Pt reports she has her first PT appointment tomorrow around 3pm. Pt states her [facility] nurse felt her R knee might be more swollen then normal too. Pt denies fever or chills. I provided information on the mobile health provider response time and advised the patient and/or caregiver to monitor reported signs and symptoms. I discussed the warning signs of when to seek emergency care -Allison Escobar RN06/22 @ 1746- Accidentally rescheduled patient to tomorrow, patient visit request changed back to today, 06/22 -Allison Escobar RN ..................... ..................... ..................... ..................... ..................... ..................... ............... Diamond Mounter Note From Cheyanne Wilson: AMINA makes pt contact. She is found laying supine on the sofa in her living room watching TV. She is moving and rubbing her R knee. She is not in acute distress. She is not tripoding and no stridor or sonorous respirations are noted. No facial droop, one-sided weakness, or slurred speech are observed and she is not bleeding anywhere. She endorses 10/10 knee pain that has been getting worse over the weekend as she tries to walk around. She has her first PT appointment for the knee tomorrow, but she doesn't think she is going to make it through the night w/ the pain. She denies any recent inciting trauma to the knee, just ADLs. She describes the pain as a bad ache that occasionally is sharp. It radiates through the knee from the medial side to the lateral side. Pt has been taking Tylenol 1G TID and ibuprofen 800mg TID w/ little relief. Pt says she has not had any imaging done on the knee. She is denying cp and sob and no other pain at this time. [facility] obtains vital signs and focused assessment of R knee is performed. It is visibly swollen compared to the left. It is not red or warm to touch. Pt is tender to palpation over the medial joint space and swelling is noted above the patella on the lateral aspect. CMS is intact bilaterally. [facility] discusses adding heat and ice to her pain management program. [facility] contacts [facility] and discusses the above. [facility] stresses the need for more imaging for pt and orders 20mg IM Ketorolac. As [facility] is preparing the medication, pt begins to sob and says she wants to have an xray done tonight at the hospital and she requests [facility] call 911 for her. [facility] contacts [facility] to inform of pt's decision and [facility] confirms [facility] to administer the medication. [facility] administers 30mg Ketorolac IM in the L deltoid. [facility] calls EMS and assists pt w/ putting on sweatpants and gathering her personal items for transport. Pt is transported to [facility] by [facility]. [facility] is clear. Report completed by ROULA Wilson [id number]. [facility] Medication Orders: ketorolac 30 mg/mL injection solution: Administered ..................... ..................... ..................... ..................... ..................... ..................... ............... [facility] Consulted: Kyra Vaca ..................... ..................... ..................... ..................... ..................... ..................... ............... Disposition: Fulfilled KYRA VACA MD [address] [facility],[address] [facility], [place], [address], [employer] [facility] 06/22/2024 20:54:25 OBGyn Episode No OBEpisode recorded.
--- NOTE | 2024-06-30 09:56 | P.CONAN_ITS ---
COUNT INCLUDES THE [facility] Active Problems Active Problems: All Active Problems History of shoulder surgery (Acute ~01/2024) Left shoulder pain (Acute) RLQ abdominal pain (Acute) Left carpal tunnel syndrome (Acute) Left tennis elbow (Acute) Sepsis (Acute) Left upper lobe pneumonia (Acute) Tendinopathy of right rotator cuff (Acute) Psoriatic arthritis (Acute) Diabetes mellitus (Acute) Stiffness of finger joint of right hand (Acute) Cubital tunnel syndrome on right (Acute) Carpal tunnel syndrome of right wrist (Acute) Numbness of right thumb (Acute) Swelling of thumb, right (Acute) Diarrhea (Acute) 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) Periumbilical abdominal pain (Acute) Tubular adenoma (Acute) Arthritis of right knee (Acute) Urinary frequency (Acute) IBS (irritable bowel syndrome) (Acute) Abdominal cramping (Acute) GERD (gastroesophageal reflux disease) (Acute) Past Medical History Medical History Spinal stenosis TMJ (dislocation of temporomandibular joint) Migraine COPD (chronic obstructive pulmonary disease) Asthma Depression Anxiety Prediabetes Arthritis of right knee Umbilical hernia Chronic idiopathic constipation Family History Family History Father Bone cancer Mother Diabetes Family/Other Family history of breast cancer Family history of problems with anesthesia: No Surgical History Surgical History History of shoulder surgery (~01/2024) History of carpal tunnel release Hx of colonoscopy History of esophagogastroduodenoscopy (EGD) Hx of hand surgery H/O eye surgery Hx of hysterectomy History of Problems with Anesthesia: No Social History Social History Household Members: None Housing: Apartment Do you presently have visiting nurse or other home services: Yes (nursing once a week, home health aid 4x week) Alcohol intake: current Alcohol intake frequency: does not drink Patient Tobacco Use Status: Former Tobacco user Advance Directives: No Advance Directives Information Provided: Yes service: No Meds Allergies Allergy/AdvReac Type Severity Reaction Status Date / Time cephalexin Allergy Intermediate Diarrhea Verified 06/10/24 13:09 Iodinated Contrast Media Allergy Intermediate DIFF Verified 06/10/24 13:09 [IV CONTRAST] BREATHING morphine [MORPHINE] Allergy Intermediate HIVES Verified 06/10/24 13:09 nabumetone [NABUMETONE] Allergy Intermediate HIVES Verified 06/10/24 13:09 sulfamethoxazole Allergy Intermediate HIVES Verified 06/10/24 13:09 [From BACTRIM] trimethoprim [From BACTRIM] Allergy Intermediate HIVES Verified 06/10/24 13:09 dicloxacillin Allergy Unknown Rash Verified 06/10/24 13:09 dyclonine Allergy Unknown Unknown Verified 06/10/24 13:09 propranolol [Inderal LA] Allergy Unknown unknown Verified 06/10/24 13:09 quetiapine [Seroquel] Allergy Unknown rash Verified 06/10/24 13:09 seafood Allergy Unknown Unknown Verified 06/10/24 13:09 Sulfa (Sulfonamide Allergy Unknown hives Verified 06/10/24 13:09 Antibiotics) amoxicillin [From Augmentin] Allergy stomach Verified 06/10/24 13:09 pain clavulanic acid Allergy stomach Verified 06/10/24 13:09 [From Augmentin] pain polyethylene glycol AdvReac Severe Hallucinati Verified 06/10/24 13:09 [From Golytely] ons polyethylene glycol 3350 AdvReac Severe Hallucinati Verified 06/10/24 13:09 [From Golytely] ons potassium chloride AdvReac Severe Hallucinati Verified 06/10/24 13:09 [From Golytely] ons sodium [From Golytely] AdvReac Severe Hallucinati Verified 06/10/24 13:09 ons sodium bicarbonate AdvReac Severe Hallucinati Verified 06/10/24 13:09 [From Golytely] ons sodium chloride AdvReac Severe Hallucinati Verified 06/10/24 13:09 [From Golytely] ons sodium sulfate AdvReac Severe Hallucinati Verified 06/10/24 13:09 [From Golytely] ons doxycycline [DOXYCYCLINE] AdvReac Intermediate NAUSEA & Verified 06/10/24 13:09 VOMITTING From INDERAL Allergy Intermediate RASH Uncoded 05/29/24 10:31 Codeine Sulfate Allergy Unknown Unknown Uncoded 05/29/24 10:31 Active Medications: Current Medications Naloxone HCl (Naloxone Hcl 0.4 Mg/Ml Vial) 0.04 mg IVPUSH Q5M PRN PRN Reason: Excessive sedation or RR < 8 Home Medications ?Medication ?Instructions ?Recorded ?Confirmed ?Last Taken ?Type carbamazepine 400 mg 400 mg PO BID 02/11/20 05/29/24 Unknown History tablet,extended release,12 hr (Tegretol XR) montelukast 10 mg tablet 10 mg PO BEDTIME 02/11/20 05/29/24 Unknown History (Singulair) fexofenadine 180 mg tablet 180 mg PO BID 08/30/21 05/29/24 Unknown History estradiol 1 mg tablet 1 mg PO DAILY 01/13/22 05/29/24 Unknown History meclizine 25 mg tablet 25 mg PO QID 05/12/22 05/29/24 Unknown History risperidone 3 mg tablet (Risperdal) 3 mg PO BID 05/12/22 05/29/24 Unknown History fluticasone 500 mcg-salmeterol 50 1 ea inhalation BID 05/30/22 05/29/24 Unknown History mcg/dose blistr powdr for inhalation metformin 500 mg tablet 500 mg PO BID 05/30/22 05/29/24 Unknown History vitamin B complex (Vitamins B 1 cap PO DAILY 05/30/22 05/29/24 Unknown History Complex capsule) topiramate 100 mg tablet 150 mg PO BID 08/02/22 05/29/24 Unknown History umeclidinium 62.5 mcg/actuation 1 inh inhalation DAILY 08/02/22 05/29/24 Unknown History blister powder for inhalation (Incruse Ellipta) albuterol sulfate 90 mcg/actuation 2 puff inhalation Q4H PRN Wheezing 09/08/22 05/29/24 Unknown History aerosol inhaler (Ventolin HFA) melatonin 3 mg tablet 9 mg PO BEDTIME 09/08/22 05/29/24 Unknown History sumatriptan succinate 100 mg tablet 100 mg PO DAILY PRN Migraine 09/08/22 05/29/24 Unknown History Headache diclofenac sodium 1 % topical gel 1 g topical QID PRN Pain 11/23/22 05/29/24 Unknown History multivitamin with folic acid 400 1 tab PO DAILY 11/23/22 05/29/24 Unknown History mcg tablet (Daily-Maikel (with folic acid)) prazosin 2 mg capsule 4 mg PO BEDTIME 11/23/22 05/29/24 Unknown History aripiprazole 10 mg tablet 10 mg PO DAILY 04/10/23 05/29/24 Unknown History omalizumab 150 mg/mL subcutaneous mg subcut Q2W 04/10/23 05/29/24 Unknown History syringe (Xolair) omalizumab 75 mg/0.5 mL mg subcut Q2W 04/10/23 05/29/24 Unknown History subcutaneous syringe (Xolair) ascorbic acid (vitamin C) 500 mg 500 mg PO DAILY 08/01/23 05/29/24 Unknown History tablet (Vitamin C) cholecalciferol (vitamin D3) 25 PO 08/01/23 05/29/24 Unknown History mcg (1,000 unit) tablet epinastine 0.05 % eye drops drp ophthalmic (eye) 08/01/23 05/29/24 Unknown History gabapentin 800 mg tablet 800 mg PO TID 08/01/23 05/29/24 Unknown History lidocaine 5 % topical patch 1 patch topical DAILY 08/01/23 05/29/24 Unknown History lorazepam 1 mg tablet 1 mg PO DAILY PRN 08/01/23 05/29/24 Unknown History multivitamin 1 tab PO DAILY 08/01/23 05/29/24 Unknown History risperidone 4 mg tablet 4 mg PO BEDTIME 08/01/23 05/29/24 Unknown History topiramate 50 mg tablet 50 mg PO BID 08/01/23 05/29/24 Unknown History trazodone 50 mg tablet mg PO 08/01/23 05/29/24 Unknown History lisinopril 20 mg tablet 20 mg PO DAILY 05/06/24 05/29/24 Unknown History sertraline 25 mg tablet 25 mg PO DAILY 05/06/24 05/29/24 Unknown History sertraline 50 mg tablet 50 mg PO DAILY 06/10/24 Unknown History Exam Airway Mallampati Class: II (edentulous) TM Dist: >3cm Neck ROM: Full Heart: rrr Lungs: cta Assessment and Plan Assessment Anesthesia Assessment: Anesthesia Plan Discussed and Chart Reviewed Final Anesthetic Review Family History of Problems with Anesthesia: No History of Problems with Anesthesia: No NPO: Yes ASA Class: III Final Preanesthetic Review: No Changes in Pt Med Stat, Meds/Allgs Chart Reviewed and Consent Obtained/Reviewed Patient Risk: Intermediate Procedure Risk: Intermediate Anesthetic Plan Anesthetic Plan: MAC: Disposition: Standard PACU
[2024-06-30 10:05] VITALS: BP 110/42; PULSE 73; RESP 16; TEMP 36.6; O2SAT 96; BMI 32.1
[2024-06-30] MEDS: Lactated Ringers 1,000 ML 80 ML IVCONT (10:17)
[2024-06-30 10:24] LABS: Glucose, Whole Blood 136 mg/dL (60-115)
--- NOTE | 2024-06-30 10:28 | P.OPN-COLO_ITS ---
Colonoscopy Operative Note Operative Note Date of Service: 06/30/24 Narrative: FLEXIBLE TRANSORAL UPPER GASTROINTESTINAL ENDOSCOPY WITH BIOPSIES AND COLONOSCOPY TILL CECUM WITH BIOPSIES, SNARE POLYPECTOMY, SUBMUCOSAL INJECTION AND HEMOCLIP PLACEMENT Pre-op diagnosis: Colon cancer screening, GERD Post-op diagnosis: GERD, Gastritis, small hiatal hernia Colon Polyps, Diverticulosis, hemorrhoids Endoscopist:? Jerilyn Santana MD Anesthesia:?MAC UPPER ENDOSCOPY Consent: Indications for the procedure and potential complications of bleeding, perforation, reaction to medications and missed diagnosis were discussed with the patient and informed consent was obtained. Instrument: Olympus GIF H 190 mid size upper endoscope Monitoring: Vital signs and clinical assessment, continuous EKG monitoring, Pulse oximetry, Carbon Dioxide monitoring and blood pressure monitoring were done throughout the procedure. Procedure: The patient was placed in the left lateral decubitis position and pre-procedure medications were administered and a bite block was placed. The endoscope was inserted into the mouth and advanced under direct vision to the third part of duodenum. A careful inspection was made as the upper endoscope was withdrawn including a retroflexed examination of the proximal stomach; Findings and interventions are described below. Findings: Larynx: Normal Esophagus: GE junction at 34 cms, small hiatal hernia 34 to 36 cms. No esophagitis or Peoples's. Stomach: Mild gastric antral erythema - biopsies were obtained to check for H pylori. Grade 2 flap valve on retroflexed examination of the cardia. Duodenum: Normal bulb and descending duodenum Biopsies were obtained from descending duodenum to check for celiac sprue Intervention: Biopsies as noted above COLONOSCOPY PROCEDURE NOTE Instrument: Olympus CF H 190 L variable stiffness adult colonoscope Monitoring: Vital signs and clinical assessment, intermittent blood pressure monitoring, continuous EKG monitoring, Pulse oximetry and Carbon Dioxide monitoring were done throughout the procedure. Please see anesthesia flowsheet. Colon withdrawl time was 30 minutes. Procedure: The patient was placed in the left lateral decubitis position and pre-procedure medications were administered. After a digital rectal examination of the ano-rectum, the video colonoscope was inserted into the rectum and advanced through the colon to the cecum. The colonoscope was slowly withdrawn in a retrograde panoramic fashion and the colon mucosa was carefully examined including a retroflexed view of the rectum. Findings and interventions are described below. Procedure Difficulty: Colon was long and tortuous and there was spasm and some loop formation. LLQ pressure was applied to intubate the cecum Findings: Terminal Ileum: Not evaluated Cecum: Normal Ascending Colon: A 2-3 mm sessile polyp in the proximal AC - removed with a cold biopsy. A 10 - 12 mm sessile polyp - removed with a stiff hot snare A 2 cms flat polyp at the hepatic flexure at 70 cms. Polyp was raised with 5 cc of [place] and removed with a stiff hot snare. Polypectomy site was treated with the APC, closed with 1 hemoclip and marked by addy ink Transverse Colon: A 12 - 15 mm flat polyp - raised with 3 cc of [place] and removed with a stiff hot snare. Polypectomy site was closed with 2 hemoclips. A 7-8 mm sessile polyp - removed with a stiff hot snare. Descending Colon: Moderate diverticulosis Sigmoid Colon: Moderate diverticulosis Rectum: Normal Ano-rectum: Small internal hemorrhoids Colon preparation: Good after some irrigation. [place] Bowel Preparation Scale Right colon; 2 Transverse colon: 2 Left colon; 2 (0 = Unprepared colon segment with mucosa not seen due to solid stool that cannot be cleared. 1 = Portion of mucosa of the colon segment seen, but other areas of the colon segment not well seen due to staining, residual stool and/or opaque liquid. 2 = Minor amount of residual staining, small fragments of stool and/or opaque liquid, but mucosa of colon segment seen well. 3 = Entire mucosa of colon segment seen well with no residual staining, small fragments of stool or opaque liquid) Impression and Post Procedure Diagnosis: Endoscopy Findings: ESOPHAGUS: Small hiatal hernia 34 to 36 cms. No esophagitis or Peoples's. STOMACH: Mild antral gastritis DUODENUM: Normal - biopsied to check for celiac sprue Colonoscopy Findings: Five small to medium sized polyps were removed Moderate diverticulosis seen in the left colon Small hemorrhoids on retroflexed exam. Plan: Pt has a FU appointment on 07/17/24 with Ana Maria Adorno NP. Repeat Colonoscopy in 1 year to check polypectomy site at the hepatic flexure if polyps are adenomatous A summary of above findings and relevant handouts were given to the patient. BIOPSIES SHOWED: A. Small bowel, biopsy: Small intestinal mucosa within normal limits. B. Stomach, antrum, biopsy: Antral-type mucosa within normal limits; no Helicobacter organisms seen. C. Colon, transverse, polypectomies: Fragments of tubular adenomata; negative for high-grade dysplasia or carcinoma. D. Colon, ascending, polypectomies: - Tubular adenoma; negative for high-grade dysplasia or carcinoma. - Clinically polypoid colonic mucosa with thermal artifact. E. Colon, hepatic flexure, polypectomy: Fragments of tubular adenoma; negative for high-grade dysplasia or carcinoma. F. Colon, random, biopsy: Colonic mucosa within normal limits Letter sent to the patient with biopsy results. Patient was placed on the colonoscopy recall list for repeat colonoscopy in 1 year.
[2024-06-30 11:41] VITALS: BP 135/73; PULSE 70; RESP 16; TEMP 36.4; O2SAT 98
[2024-06-30 11:56] VITALS: BP 122/63; PULSE 80; RESP 18; O2SAT 98
[2024-06-30 12:11] VITALS: BP 130/59; PULSE 67; RESP 18; TEMP 36.2; O2SAT 98
== END 2024-06-30 13:12 | disposition home or self-care (01) ==
PROVIDERS: PCP Family Medicine; Visit Provider Internal Medicine Gastroenterology
PROC: (CPT 45385; principal; 2024-06-30 10:20)
DX: Z12.11 Encounter for screening for malignant neoplasm of colon (principal); D12.2 Benign neoplasm of ascending colon; D12.3 Benign neoplasm of transverse colon; K56.2 Volvulus; K57.30 Diverticulosis of large intestine without perforation or abscess without bleeding; K64.8 Other hemorrhoids; Z86.0101 Personal history of adenomatous and serrated colon polyps; K29.60 Other gastritis without bleeding; K21.9 Gastro-esophageal reflux disease without esophagitis; K44.9 Diaphragmatic hernia without obstruction or gangrene; E11.9 Type 2 diabetes mellitus without complications; K58.9 Irritable bowel syndrome, unspecified; J44.9 Chronic obstructive pulmonary disease, unspecified; Z87.891 Personal history of nicotine dependence; Z79.899 Other long term (current) drug therapy; Z79.84 Long term (current) use of oral hypoglycemic drugs
CPT/HCPCS: 45385; 45380; 45381; 43239; 82947; 88305; 88313; 88342; J2003; J2250; J2704

== ENCOUNTER → 2024-06-30 09:34 | Outpatient (BNV) | payer OTHER, SELFPAY | PROVIDERS: PCP Family Medicine; Visit Provider Internal Medicine Gastroenterology | DX: Z12.11 Encounter for screening for malignant neoplasm of colon (principal); K63.5 Polyp of colon; K57.90 Diverticulosis of intestine, part unspecified, without perforation or abscess without bleeding; K64.8 Other hemorrhoids; K21.9 Gastro-esophageal reflux disease without esophagitis; K29.70 Gastritis, unspecified, without bleeding; K44.9 Diaphragmatic hernia without obstruction or gangrene | CPT/HCPCS: 43239; 45380; 45381; 45385 ==

== ENCOUNTER → 2024-07-02 10:51 | Outpatient (BNV) | payer OTHER, SELFPAY ==
--- NOTE | 2024-07-02 10:51 | A.OFFVIS_ITS ---
Intake Visit Reasons: Amb Documentation Allergies cephalexin Allergy (Intermediate, Verified 06/30/24 10:05) Diarrhea Iodinated Contrast Media [IV CONTRAST] Allergy (Intermediate, Verified 06/30/24 10:05) DIFF BREATHING morphine [MORPHINE] Allergy (Intermediate, Verified 06/30/24 10:05) HIVES nabumetone [NABUMETONE] Allergy (Intermediate, Verified 06/30/24 10:05) HIVES sulfamethoxazole [From BACTRIM] Allergy (Intermediate, Verified 06/30/24 10:05) HIVES trimethoprim [From BACTRIM] Allergy (Intermediate, Verified 06/30/24 10:05) HIVES dicloxacillin Allergy (Unknown, Verified 06/30/24 10:05) Rash dyclonine Allergy (Unknown, Verified 06/30/24 10:05) Unknown propranolol [Inderal LA] Allergy (Unknown, Verified 06/30/24 10:05) unknown quetiapine [Seroquel] Allergy (Unknown, Verified 06/30/24 10:05) rash seafood Allergy (Unknown, Verified 06/30/24 10:05) Unknown Sulfa (Sulfonamide Antibiotics) Allergy (Unknown, Verified 06/30/24 10:05) hives amoxicillin [From Augmentin] Allergy (Verified 06/30/24 10:05) stomach pain clavulanic acid [From Augmentin] Allergy (Verified 06/30/24 10:05) stomach pain polyethylene glycol [From Golytely] Adverse Reaction (Severe, Verified 06/30/24 10:05) Hallucinations polyethylene glycol 3350 [From Golytely] Adverse Reaction (Severe, Verified 06/30/24 10:05) Hallucinations potassium chloride [From Golytely] Adverse Reaction (Severe, Verified 06/30/24 10:05) Hallucinations sodium [From Golytely] Adverse Reaction (Severe, Verified 06/30/24 10:05) Hallucinations sodium bicarbonate [From Golytely] Adverse Reaction (Severe, Verified 06/30/24 10:05) Hallucinations sodium chloride [From Golytely] Adverse Reaction (Severe, Verified 06/30/24 10:05) Hallucinations sodium sulfate [From Golytely] Adverse Reaction (Severe, Verified 06/30/24 10:05) Hallucinations doxycycline [DOXYCYCLINE] Adverse Reaction (Intermediate, Verified 06/30/24 10:05) NAUSEA & VOMITTING From INDERAL Allergy (Intermediate, Uncoded 05/19/25 10:05) RASH Codeine Sulfate Allergy (Unknown, Uncoded 06/30/24 10:05) Unknown HPI HPI Amb Documentation: Details: On 07/02/24 @ 10:49 Ana Maria Adorno Wrote To Ana Maria Adorno (2) Called patient at 10:10 this morning and she reports to me that she has had pain that she describes as sharp and stabbing just above the umbilicus that is fixed but does radiate straight to her back, specifically the lower back. The intensity of the pain is 8 to 10/10. It is intermittent and she can not describe any exacerbating factors but she says that it is sometimes is mildly helped by rubbing her stomach. She says that this picking predates her colon oscopy by many weeks. I have not seen her since last summer, so I let her know this is new to me. She do not not feel the pain is related to moving her bowels or eating particularly that she can identify. She says she was moving her bowels normally without any feeling of constipation or diarrhea. I review her ER records from [facility], and the GI system appears to be completely normal including her pancreas. However, they do note perinephritic stranding, and when I ask her she has not any history of kidney stones she says she does not in the past a urologist had to extract 1 surgically in [place]. She also states that she has had trouble urinating. She reports drinking plenty of fluids. I let her know that this is likely not diverticulosis particularly given the negative CAT scan findings. She was a bit hysterical and continues about diverticulosis which was found on her colonoscopy versus diverticulitis. I explained to her that most people with diverticulosis to not go on to develop an infection and that does not appear to be the source of her pain at this time. However they did not obtain a urinalysis and I would like to get that to see if there is hematuria or infection and I think an ultrasound of her renal system may be in order. She wants to know what she should do for the pain, and I tell her I do not know what to do at this point because we are not sure what the source it and that affects the treatment decision. However, I will start her on some Flomax to see if this makes a difference particularly the 8 in urination so that we can obtain a urine sample. It is possible that she has a UTI but the differential diagnosis for her pain is extremely wide and could include musculoskeletal or even psychogenic causes. Because she has no response to the pain with her dicyclomine I doubt that it is colonic in nature. Because the pain 3 8 colonoscopy I also doubt that this is constipation driven despite their saying there is a mild stool burden on CAT scan. Her upper endoscopy also has only very mild findings that would not correlate well with the description of pain. She already has a follow-up appointment booked with me in early July and she would like to see me sooner, we will see what evolves with her testing as my schedule is quite limited at this time. I let her know this, but I will be in touch with her. [facility] Medical History (Updated 07/02/24 @ 10:52 by CLIFF Turk) RLQ abdominal pain Spinal stenosis TMJ (dislocation of temporomandibular joint) Migraine COPD (chronic obstructive pulmonary disease) Asthma Depression Anxiety Prediabetes Arthritis of right knee Umbilical hernia Chronic idiopathic constipation Surgical History History of shoulder surgery (~01/2024) History of carpal tunnel release Hx of colonoscopy History of esophagogastroduodenoscopy (EGD) Hx of hand surgery H/O eye surgery Hx of hysterectomy Family History Father Bone cancer Mother Diabetes Family/Other Family history of breast cancer Social History Household Members: None Housing: Apartment Are you a primary field care advocate to a significant other at home: No Do you presently have visiting nurse or other home services: No Alcohol intake: current Alcohol intake frequency: does not drink Patient Tobacco Use Status: Former Tobacco user Use of substances other than those prescribed or required for medical reasons: No Have you been hit, kicked, punched, or otherwise hurt by someone within the past year? If so, by whom?: No Are you DNR?: No Advance Directives: No Advance Directives Information Provided: Yes Patient : No service: No Review of Systems Const Denies fatigue, Denies fever(s), Denies lethargy, Denies malaise and Denies poor appetite GI Reports abdominal pain, Reports bloating, Denies constipation, Denies heartburn, Denies diarrhea, Denies nausea and Denies vomiting Reports difficulty voiding and Reports dysuria Musc Reports back pain Psych Reports anxiety and Reports panic attacks Endo Denies fatigue Assessment & Plan Assessment & Plan (1) Abnormal CT scan: Comment: perinephretic stranding on CT from [facility] 07/02/2024 Code(s): R93.89 - Abnormal findings on diagnostic imaging of other specified body structures Category: Medical (2) Nephrolithiasis: Code(s): N20.0 - Calculus of kidney Category: Medical (3) Periumbilical abdominal pain: Code(s): R10.33 - Periumbilical pain Category: Medical Plan On 07/02/24 @ 10:49 Ana Maria Adorno Wrote To Ana Maria Adorno (2) Called patient at 10:10 this morning and she reports to me that she has had pain that she describes as sharp and stabbing just above the umbilicus that is fixed but does radiate straight to her back, specifically the lower back. The in tensity of the pain is 8 to 10/10. It is intermittent and she can not describe any exacerbating factors but she says that it is sometimes is mildly helped by rubbing her stomach. She says that this picking predates her colonoscopy by many weeks. I have not seen her since last summer, so I let her know this is new to me. She do not not feel the pain is related to moving her bowels or eating particularly that she can identify. She says she was moving her bowels normally without any feeling of constipation or diarrhea. I review her ER records from [facility], and the GI system appears to be completely normal including her pancreas. However, they do note perinephritic stranding, and when I ask her she has not any history of kidney stones she says she does not in the past a urologist had to extract 1 surgically in [place]. She also states that she has had trouble urinating. She reports drinking plenty of fluids. I let her know that this is likely not diverticulosis particularly given the negative CAT scan findings. She was a bit hysterical and continues about diverticulosis which was found on her colonoscopy versus diverticulitis. I explained to her that most people with diverticulosis to not go on to develop an infection and that does not appear to be the source of her pain at this time. However they did not obtain a urinalysis and I would like to get that to see if there is hematuria or infection and I think an ultrasound of her renal system may be in order. She wants to know what she should do for the pain, and I tell her I do not know what to do at this point because we are not sure what the source it and that affects the treatment decision. However, I will start her on some Flomax to see if this makes a difference particularly the 8 in urination so that we can obtain a urine sample. It is possible that she has a UTI but the differential diagnosis for her pain is extremely wide and could include musculoskeletal or even psychogenic causes. Because she has no response to the pain with her dicyclomine I doubt that it is colonic in nature. Because the pain 3 8 colonoscopy I also doubt that this is constipation driven despite their saying there is a mild stool burden on CAT scan. Her upper endoscopy also has only very mild findings that would not correlate well with the description of pain. She already has a follow-up appointment booked with me in early July and she would like to see me sooner, we will see what evolves with her testing as my schedule is quite limited at this time. I let her know this, but I will be in touch with her. Medications: Discontinued diclofenac sodium Discontinued Reason: Doctor's Order 75 mg PO BID PRN 60 tabs 0RF pain Coding Level of Care Code Tele Est Pt Level 3 (49691) Diagnoses Abnormal CT scan R93.89 Nephrolithiasis N20.0 Periumbilical abdominal pain R10.33 Time Spent (min) 28
== END ==
PROVIDERS: PCP Family Medicine; Visit Provider Nurse Practitioner
DX: R93.89 Abnormal findings on diagnostic imaging of other specified body structures (principal); N20.0 Calculus of kidney; R10.33 Periumbilical pain
CPT/HCPCS: 99213

== ENCOUNTER 2024-07-02 16:37 | Emergency (ER) | payer OTHER, SELFPAY ==
--- NOTE | ~2024-07-02 | CT_ITS ---
CLINICAL HISTORY: Increased abdominal pain after endoscopy CT abdomen and pelvis without contrast Comparison: CT/REG/SR - CT ABDOMEN PELVIS WO IV CON - 03/26/22 03:51 EST Findings: Faint patchy density medially at the right lung base, nonspecific, axial images 12-41. Series 4. The gallbladder is absent. The liver, spleen, adrenal glands and pancreas are unremarkable. There are 2 nonobstructing left renal calculi measuring up to 4 mm. No right-sided calculus. No obstructive uropathy bilaterally. The bladder is partially distended without focal abnormality. Normal appendix. No bowel obstruction. Scattered diverticulosis. Scattered gas and fluid throughout nondistended small and large bowel. No evidence of free air. No pneumatosis or portal venous gas. Moderate atherosclerotic disease Impression: Nonspecific faint patchy density medially in the right lung base. Correlation for pneumonia. No definite acute process within the abdomen or pelvis. This document has been electronically signed by: Miguel Reyes MD on 07/02/2024 20:08:30
--- NOTE | ~2024-07-02 | XR_ITS ---
CLINICAL HISTORY: ? Pneumonia on CT 1 view chest Comparison: CR/SR - XR CHEST 2V - 11/23/22 11:19 EDT Findings: Cardiac and mediastinal contours are normal. Mild interstitial prominence with scattered peribronchial thickening. No focal consolidation. No effusion. No pneumothorax. No acute osseous finding. Impression: Mild interstitial prominence with scattered peribronchial thickening. No focal consolidation. This document has been electronically signed by: Miguel Reyes MD on 07/02/2024 21:01:53
--- NOTE | 2024-07-02 16:53 | ED.ABDPAIN ---
HPI - Abdominal Pain General Chief Complaint: Abdominal Pain Stated Complaint: Abd Pain, Back Pain Time Seen by Provider: 07/02/24 17:36 Source: patient Mode of arrival: ambulatory Limitations: no limitations History of Present Illness ED Provider: DR. Galan HPI narrative: 63-year-old female with a past medical history GERD, IBS, asthma, depression, prediabetes, chronic constipation presenting to the ED c/o lower abdominal pain & lower back pain x few weeks. Reports urinary retention since yesterday morning. Had endoscopy & colonoscopy at [facility] on Sunday by Dr. Santana, patient was instructed by GI to come to the ED for further evaluation. no dysuria, no frequency urination, no hematuria, last bowel movement was yesterday, patient is passing gas his. History was significant for cholecystectomy. Related Data Home Medications ?Medication ?Instructions ?Recorded ?Confirmed carbamazepine 400 mg 400 mg PO BID 02/11/20 05/29/24 tablet,extended release,12 hr (Tegretol XR) montelukast 10 mg tablet 10 mg PO BEDTIME 02/11/20 05/29/24 (Singulair) fexofenadine 180 mg tablet 180 mg PO BID 08/30/21 05/29/24 estradiol 1 mg tablet 1 mg PO DAILY 01/13/22 05/29/24 meclizine 25 mg tablet 25 mg PO QID 05/12/22 05/29/24 risperidone 3 mg tablet (Risperdal) 3 mg PO BID 05/12/22 05/29/24 fluticasone 500 mcg-salmeterol 50 1 ea inhalation BID 05/30/22 05/29/24 mcg/dose blistr powdr for inhalation metformin 500 mg tablet 500 mg PO BID 05/30/22 05/29/24 vitamin B complex (Vitamins B 1 cap PO DAILY 05/30/22 05/29/24 Complex capsule) topiramate 100 mg tablet 150 mg PO BID 08/02/22 05/29/24 umeclidinium 62.5 mcg/actuation 1 inh inhalation DAILY 08/02/22 05/29/24 blister powder for inhalation (Incruse Ellipta) albuterol sulfate 90 mcg/actuation 2 puff inhalation Q4H PRN Wheezing 09/08/22 05/29/24 aerosol inhaler (Ventolin HFA) melatonin 3 mg tablet 9 mg PO BEDTIME 09/08/22 05/29/24 sumatriptan succinate 100 mg tablet 100 mg PO DAILY PRN Migraine 09/08/22 05/29/24 Headache diclofenac sodium 1 % topical gel 1 g topical QID PRN Pain 11/23/22 05/29/24 multivitamin with folic acid 400 1 tab PO DAILY 11/23/22 05/29/24 mcg tablet (Daily-Maikel (with folic acid)) prazosin 2 mg capsule 4 mg PO BEDTIME 11/23/22 05/29/24 aripiprazole 10 mg tablet 10 mg PO DAILY 04/10/23 05/29/24 omalizumab 150 mg/mL subcutaneous mg subcut Q2W 04/10/23 05/29/24 syringe (Xolair) omalizumab 75 mg/0.5 mL mg subcut Q2W 04/10/23 05/29/24 subcutaneous syringe (Xolair) ascorbic acid (vitamin C) 500 mg 500 mg PO DAILY 08/01/23 05/29/24 tablet (Vitamin C) cholecalciferol (vitamin D3) 25 PO 08/01/23 05/29/24 mcg (1,000 unit) tablet epinastine 0.05 % eye drops drp ophthalmic (eye) 08/01/23 05/29/24 gabapentin 800 mg tablet 800 mg PO TID 08/01/23 05/29/24 lidocaine 5 % topical patch 1 patch topical DAILY 08/01/23 05/29/24 lorazepam 1 mg tablet 1 mg PO DAILY PRN 08/01/23 05/29/24 multivitamin 1 tab PO DAILY 08/01/23 05/29/24 risperidone 4 mg tablet 4 mg PO BEDTIME 08/01/23 05/29/24 topiramate 50 mg tablet 50 mg PO BID 08/01/23 05/29/24 trazodone 50 mg tablet mg PO 08/01/23 05/29/24 lisinopril 20 mg tablet 20 mg PO DAILY 05/06/24 05/29/24 sertraline 25 mg tablet 25 mg PO DAILY 05/06/24 05/29/24 sertraline 50 mg tablet 50 mg PO DAILY 06/10/24 Previous Rx's ?Medication ?Instructions ?Recorded valacyclovir 500 mg tablet 500 mg PO BID 7 days #0 tabs 11/28/22 docusate sodium 100 mg capsule 100 mg PO BID #60 caps 04/10/23 ondansetron 4 mg disintegrating 4 mg PO Q8H PRN nausea and 04/10/23 tablet vomiting #10 tabs ibuprofen 600 mg tablet 600 mg PO TID pain #90 tabs 08/01/23 levofloxacin 500 mg tablet 500 mg PO DAILY #14 tabs 08/01/23 metronidazole 500 mg tablet 500 mg PO TID 10 days #30 tabs 08/01/23 wrist splint #1 ea 08/01/23 prednisone 5 mg tablet See Rx Instructions PO .COMPLEX 08/21/23 #42 tabs Taltz Autoinjector 80 mg/mL 80 mg subcut Q4W #1 mL 09/20/23 subcutaneous (ixekizumab) lactase 3,000 unit tablet 3,000 - 6,000 unit (1 - 2 x 3,000 12/17/23 unit) PO TIDAC PRN DAIRY INTOLERANCE #120 tabs pantoprazole 40 mg tablet,delayed 40 mg PO BID #60 tabs 12/25/23 release folic acid 1 mg tablet 1 mg PO DAILY #90 tabs 05/12/24 methotrexate sodium 2.5 mg tablet 15 mg (6 x 2.5 mg) PO QWEEK #96 05/14/24 tabs dicyclomine 10 mg capsule 10 mg PO Q6H PRN abdominal pain 06/11/24 #120 caps magnesium citrate 300 ml PO DAILY PRN constipation 06/27/24 #592 mL azithromycin 250 mg tablet See Rx Instructions PO .COMPLEX #6 07/02/24 (Zithromax Z-Everett) tabs tamsulosin 0.4 mg capsule (Flomax) 0.4 mg PO DAILY #30 caps 07/02/24 Allergies Allergy/AdvReac Type Severity Reaction Status Date / Time cephalexin Allergy Intermediate Diarrhea Verified 07/02/24 16:56 Iodinated Contrast Media Allergy Intermediate DIFF Verified 07/02/24 16:56 [IV CONTRAST] BREATHING morphine [MORPHINE] Allergy Intermediate HIVES Verified 07/02/24 16:56 nabumetone [NABUMETONE] Allergy Intermediate HIVES Verified 07/02/24 16:56 sulfamethoxazole Allergy Intermediate HIVES Verified 07/02/24 16:56 [From BACTRIM] trimethoprim [From BACTRIM] Allergy Intermediate HIVES Verified 07/02/24 16:56 dicloxacillin Allergy Unknown Rash Verified 07/02/24 16:56 dyclonine Allergy Unknown Unknown Verified 07/02/24 16:56 propranolol [Inderal LA] Allergy Unknown unknown Verified 07/02/24 16:56 quetiapine [Seroquel] Allergy Unknown rash Verified 07/02/24 16:56 seafood Allergy Unknown Unknown Verified 07/02/24 16:56 Sulfa (Sulfonamide Allergy Unknown hives Verified 07/02/24 16:56 Antibiotics) amoxicillin [From Augmentin] Allergy stomach Verified 07/02/24 16:56 pain clavulanic acid Allergy stomach Verified 07/02/24 16:56 [From Augmentin] pain polyethylene glycol AdvReac Severe Hallucinati Verified 07/02/24 16:56 [From Golytely] ons polyethylene glycol 3350 AdvReac Severe Hallucinati Verified 07/02/24 16:56 [From Golytely] ons potassium chloride AdvReac Severe Hallucinati Verified 07/02/24 16:56 [From Golytely] ons sodium [From Golytely] AdvReac Severe Hallucinati Verified 07/02/24 16:56 ons sodium bicarbonate AdvReac Severe Hallucinati Verified 07/02/24 16:56 [From Golytely] ons sodium chloride AdvReac Severe Hallucinati Verified 07/02/24 16:56 [From Golytely] ons sodium sulfate AdvReac Severe Hallucinati Verified 07/02/24 16:56 [From Golytely] ons doxycycline [DOXYCYCLINE] AdvReac Intermediate NAUSEA & Verified 07/02/24 16:56 VOMITTING From INDERAL Allergy Intermediate RASH Uncoded 06/30/24 10:05 Codeine Sulfate Allergy Unknown Unknown Uncoded 06/30/24 10:05 Review of Systems Review of Systems all other systems are reviewed and are negative Constitutional: Reports as per HPI and Reports no additional constitutional complaints Eyes: Reports as per HPI and Reports no additional eye complaints Reports system reviewed and no additional complaints, except as documented Cardiovascular: Reports as per HPI and Reports no additional cardiovascular complaints Respiratory: Reports as per HPI and Reports no additional respiratory complaints Gastrointestinal: Reports as per HPI and Reports no additional gastrointestinal complaints Genitourinary: Reports no additional female genitourinary complaints Musculoskeletal: Reports no additional musculoskeletal complaints Skin/Breast: Reports system reviewed and no additional complaints, except as docu Psychiatric: Reports no additional psychiatric complaints Endocrine: Reports no additional endocrine complaints Hematologic/Lymphatic: Reports no additional hematologic/lymphatic complaints Allergic/Immunologic: Reports no additional allergic/immunologic complaints Reports system reviewed and no additional complaints, except as documented and Reports Abnormal speech present [facility] Past Medical History Medical History RLQ abdominal pain Spinal stenosis TMJ (dislocation of temporomandibular joint) Migraine COPD (chronic obstructive pulmonary disease) Asthma Depression Anxiety Prediabetes Arthritis of right knee Umbilical hernia Chronic idiopathic constipation Surgical History History of shoulder surgery (~01/2024) History of carpal tunnel release Hx of colonoscopy History of esophagogastroduodenoscopy (EGD) Hx of hand surgery H/O eye surgery Hx of hysterectomy Family History Family History Father Bone cancer Mother Diabetes Family/Other Family history of breast cancer Social History Social History Household Members: None Housing: Apartment Are you a primary health care coach to a significant other at home: No Do you presently have visiting nurse or other home services: No Alcohol intake: current Alcohol intake frequency: does not drink Patient Tobacco Use Status: Former Tobacco user Smoked in Last 30 Days: No Use of substances other than those prescribed or required for medical reasons: No Advance Directives: No Advance Directives Information Provided: Yes Do you have a plan to hurt others: No Plan Patient : No service: No Physical Exam ED Vital Signs: Vital Signs - 24 hr 07/02/24 16:54 07/02/24 19:14 Temperature 97.9 F 97.6 F Pulse Rate 62 53 Respiratory Rate 20 18 Blood Pressure 142/45 H 149/40 H Pulse Oximetry 98 98 Oxygen Delivery Method Room Air Room Air BMI result Body Mass Index 33.8 Vital signs have been reviewed and appear to be correct. Blood pressure elevated. Heart rate normal. Respiratory rate normal. Temperature normal. Oxygen saturation normal. Appearance: Alert. Oriented X3. No acute distress. Head: Normal external exam. Normocephalic. Atraumatic. No Diaz signs noted. No raccoon eyes noted Eyes: PERRLA. EOMI. Conjunctiva and sclera normal. Eyelids normal. ENT: TM's Normal. Pharynx normal. Uvula midline. Moist mucous membranes. No trismus noted. No drooling noted. No muffled voice noted. Neck: Normal inspection. Neck supple. FROM. No adenopathy. Thyroid Normal. No meningeal signs. No neck mass noted. CVS: Normal heart rate and rhythm. Heart sound normal. No murmurs noted. Pulses normal throughout. Respiratory: No respiratory distress. Painless inspiration. Breath sounds normal. No wheezes/rales/rhonchi noted. Chest nontender. No accessory muscle usage noted or decreased air movement noted. Abdomen: Soft and nontender. Bowel sounds normal in all 4 quadrants. No distention noted. No organomegaly noted. No visible injury noted. Back: No CVA tenderness. Full range of motion noted. Skin: Skin warm and dry. Normal skin color. Normal skin turgor. No rashes/lesions/lacerations noted. Extremities: No lower extremity edema. Extremities exhibit normal range of motion. Extremities nontender. Neuro: Oriented X 3. Cranial nerve exam: II-XII are grossly intact No motor deficit. No sensory deficit. Reflexes normal. Course Course Course Narrative: This is a Rapid Medical Exam performed in triage by Allison Trujillo PA-C. Full HPI, ROS and PE to be performed by primary ED provider. PE: abdomen soft with diffuse ttp, no rebound or guarding, Plan: labs, UA, bladder scan Reevaluation(s) Reevaluation #1: patient feels much better after was given Dilaudid in the ED. CT abdomen pelvis reveals no intra abdominal acute pathology to explain patient's symptoms, incidental infiltrate in the right lung patient confirmed that she has been having a productive cough with yellow sputum for the past 2 3 days patient is a former smoker quit 12 years ago, no fever, no chills. Will start the patient on Z-Everett. Time: 21:54 Medical Decision Making Differential Diagnosis Differential Diagnoses: The differential diagnosis associated with the presentation includes ( Pneumonia, pneumothorax, pleural effusion, colitis, GI endoscopy's complications, electrolyte derangement, severe anemia, esophagitis, gastritis.) Admission/Observation Consideration of admission/observation: Escalation of care including admission/observation considered Lab Data MDM Lab Attestation statement: I reviewed the patient's lab results. 07/02/24 17:07 07/02/24 17:07 Labs: Lab Results 07/02/24 07/02/24 Range/Units 17:07 18:19 WBC 6.2 (4.8-10.8) X10*3/uL RBC 3.70 L (4.20-5.50) X10*6/uL Hgb 11.3 L (12.0-16.0) g/dl Hct 34.8 L (37.0-47.0) % MCV 94.1 (80.0-98.0) fL MCH 30.5 (27.0-33.0) pg MCHC 32.5 (31.0-35.0) g/dl RDW 13.9 (11.0-16.0) % Plt Count 192 D (160-400) X10*3/uL MPV 10.2 (9.4-12.3) fL Immature Gran % (Auto) 0.5 H (0.0-0.4) % Neut % (Auto) 53.0 (45-73) % Lymph % (Auto) 34.8 (20-40) % [place] % (Auto) 8.8 (2-11) % Eos % (Auto) 2.4 (0-4) % Baso % (Auto) 0.5 (0-2) % Lymph # (Auto) 2.2 (1.2-4.9) X10*3/uL [place] # (Auto) 0.6 (0.1-1.2) X10*3/uL Eos # (Auto) 0.2 (0.0-0.4) X10*3/uL Baso # (Auto) 0.0 (0.0-0.2) X10*3/uL Abs Immat Gran (auto) 0.03 (0.00-0.03) X10*3/uL Absolute Neuts (auto) 3.3 (2.0-8.3) x10*3/uL Absolute Nucleated RBC 0.000 (0.0-0.012) X10*3/uL Nucleated RBC % (auto) 0.0 (0.0-0.2) /100WBC Sodium 138 (135-145) mmol/L Potassium 4.5 (3.3-5.1) mmol/L Chloride 112 H (96-108) mmol/L Carbon Dioxide 19 L (22-29) mmol/L Anion Gap 12 (12-20) BUN 10 (9-16) mg/dL Creatinine 0.57 (0.5-1.4) mg/dL Estim Creat Clear Calc 100.0 Estimated GFR > 60 Random Glucose 81 (60-115) mg/dL Calcium 8.6 (8.4-10.2) mg/dL Magnesium 1.9 (1.6-2.6) mg/dL Total Bilirubin 0.2 (0.0-1.0) mg/dL Direct Bilirubin < 0.2 (0.0-0.5) mg/dL AST 35 H (5-31) U/L ALT 17 (0-31) U/L Alkaline Phosphatase 88 (39-117) U/L Total Protein 7.6 (6.5-8.0) g/dL Albumin 3.6 (3.5-5.0) g/dL Lipase 38 (8-78) U/L Urine Color Yellow Urine Appearance Clear Urine pH 7.5 (5.0-9.0) Ur Specific [place] 1.010 (1.005-1.025) Urine Protein Negative (Neg-Trace) mg/dL Urine Glucose (UA) Negative (Negative) mg/dL Urine Ketones Negative (Negative) mg/dL Urine Blood Negative (Negative) Urine Nitrite Negative (Negative) Ur Leukocyte Esterase Negative (Negative) Independent Interpretation I performed an independent interpretation of an: Plain X-Ray ( Chest:Mild interstitial prominence with scattered peribronchial thickening. No focal consolidation.) and CT Scan ( Abdomen and pelvis:Nonspecific faint patchy density medially in the right lung base. Correlation for pneumonia.) Radiology Impression Discussion of test interpretation with radiology: I have reviewed the radiologist's reading. Medications Administered Discontinued Medications Generic Name Dose Route Start Last Admin Trade Name Freq PRN Reason Stop Dose Admin Al Hydroxide/Mg Hydroxide 30 ml 07/02/24 17:48 07/02/24 18:56 Magnesium Hydrox/Alum Hydrox 30 Ml Oral.Susp PO 07/02/24 17:49 30 ml ONCE ONE Administration Diatrizoate Meglum/Diatrizoate Sod 30 ml 07/02/24 19:04 07/02/24 19:04 Diatrizoate Meglumine, Sodium 30 Ml Solution PO 07/02/24 19:05 30 ml ONCE ONE Administration Famotidine 20 mg 07/02/24 17:51 07/02/24 18:56 Famotidine 20 Mg Tablet PO 07/02/24 17:52 20 mg ONCE ONE Administration Hydromorphone HCl 1 mg 07/02/24 17:51 07/02/24 18:57 Hydromorphone Hcl 1 Mg/Ml Syringe IM 07/02/24 17:52 1 mg ONCE ONE Administration Protocol Discharge Plan Discharge Clinical Impression: GERD (gastroesophageal reflux disease), Pneumonia Patient Disposition: Home, Self-Care Instructions: Community Acquired Pneumonia (ED) Prescriptions: New azithromycin [Zithromax Z-Everett] 250 mg tablet See Rx Instructions .ROUTE .COMPLEX Qty: 6 0RF Rx Instructions: For 250 mg dose pack: take 500 mg today (day 1), then 250 mg for 4 days (days 2-5) No Action prednisone 5 mg tablet See Rx Instructions PO .COMPLEX Qty: 42 0RF Rx Instructions: Take 3 tabs daily for 1 week, 2 tabs daily for 1 week, 1 tab daily for 1 week then stop Taltz Autoinjector 80 mg/mL auto-injector 80 mg subcut Q4W Qty: 1 3RF lactase 3,000 unit tablet 3,000 - 6,000 unit PO TIDAC PRN (Reason: DAIRY INTOLERANCE) Qty: 120 6RF pantoprazole 40 mg tablet,delayed release (DR/EC) 40 mg PO BID Qty: 60 6RF folic acid 1 mg tablet 1 mg PO DAILY Qty: 90 1RF methotrexate sodium 2.5 mg tablet 15 mg PO QWEEK Qty: 96 0RF dicyclomine 10 mg capsule 10 mg PO Q6H PRN (Reason: abdominal pain) Qty: 120 6RF magnesium citrate Solution 300 ml PO DAILY PRN (Reason: constipation) Qty: 592 0RF Rx Instructions: drink 1 bottle the day before colonoscopy at 4pm, followed by 8oz of water/ clear liquid drink 2nd bottle the day before colonoscopy at 9pm, followed by 8oz of water/clear liquid tamsulosin [Flomax] 0.4 mg capsule 0.4 mg PO DAILY Qty: 30 1RF prazosin 2 mg capsule 4 mg PO BEDTIME diclofenac sodium 1 % gel 1 g topical QID PRN (Reason: Pain) multivitamin with folic acid [Daily-Maikel (with folic acid)] 400 mcg tablet 1 tab PO DAILY valacyclovir 500 mg Tablet 500 mg PO BID 7 Days Qty: 0 0RF carbamazepine [Tegretol XR] 400 mg tablet extended release 12 hr 400 mg PO BID montelukast [Singulair] 10 mg tablet 10 mg PO BEDTIME risperidone [Risperdal] 3 mg tablet 3 mg PO BID Patient Comments: 3 mg in the morning and 6 mg at bedtime. fexofenadine 180 mg tablet 180 mg PO BID meclizine 25 mg tablet 25 mg PO QID estradiol 1 mg tablet 1 mg PO DAILY vitamin B complex [Vitamins B Complex] Capsule 1 cap PO DAILY fluticasone propion-salmeterol 500-50 mcg/dose blister with device 1 ea inhalation BID metformin 500 mg tablet 500 mg PO BID Xolair 150 mg/mL syringe subcut Q2W Xolair 75 mg/0.5 mL syringe subcut Q2W topiramate 100 mg tablet 150 mg PO BID Incruse Ellipta 62.5 mcg/actuation blister with device 1 inh inhalation DAILY albuterol sulfate [Ventolin HFA] 90 mcg/actuation HFA aerosol inhaler 2 puff inhalation Q4H PRN (Reason: Wheezing) melatonin 3 mg tablet 9 mg PO BEDTIME sumatriptan succinate 100 mg tablet 100 mg PO DAILY PRN (Reason: Migraine Headache) (DME) wrist splint See Rx Instructions .Route .MEDSUPPLY Qty: 1 0RF Rx Instructions: Wear nightly and as much as possible throughout the day lorazepam 1 mg tablet 1 mg PO DAILY PRN multivitamin Tablet 1 tab PO DAILY risperidone 4 mg tablet 4 mg PO BEDTIME gabapentin 800 mg tablet 800 mg PO TID trazodone 50 mg tablet PO topiramate 50 mg tablet 50 mg PO BID cholecalciferol (vitamin D3) 25 mcg (1,000 unit) tablet PO lidocaine 5 % adhesive patch,medicated 1 patch topical DAILY ascorbic acid (vitamin C) [Vitamin C] 500 mg tablet 500 mg PO DAILY epinastine 0.05 % drops ophthalmic (eye) levofloxacin 500 mg tablet 500 mg PO DAILY Qty: 14 0RF metronidazole 500 mg tablet 500 mg PO TID 10 Days Qty: 30 0RF ibuprofen 600 mg tablet 600 mg PO TID Qty: 90 0RF lisinopril 20 mg tablet 20 mg PO DAILY sertraline 25 mg tablet 25 mg PO DAILY aripiprazole 10 mg tablet 10 mg PO DAILY ondansetron 4 mg tablet,disintegrating 4 mg PO Q8H PRN (Reason: nausea and vomiting) Qty: 10 0RF docusate sodium 100 mg capsule 100 mg PO BID Qty: 60 6RF sertraline 50 mg tablet 50 mg PO DAILY Referrals: Jenny Pugh MD [Primary Care Provider] - Stand Alone Forms: Work/School Release Print Language: Vietnamese
[2024-07-02 16:54] VITALS: BP 142/45; PULSE 62; RESP 20; TEMP 36.6; O2SAT 98; BMI 33.8
--- OUTSIDE RECORDS SUMMARY | 2024-07-02 17:09 | XMS_ITS | Data Portability ---
Author Organization [place] - [facility], Allergy Address [address] [place] [address] Assessment Encounter Date Assessment Date Assessment LastModified [...] recorded. Referral speech therapy referral 2024 025 [facility] [place] [facility], [address] [place] [address] [place], [address], 04/29/2024 10:52:29 Procedures None recorded. Surgeries None [...] Address Organization Details Recorded Time Bilateral tinnitus 78592551018 02 Active 2015 Tinnitus, bilateral ; Note: Date Diagnosed : 06/22/2015 2:10 PM (H93.13) Not Available [facility] 4 02:46:51 Otitis externa of bilateral ears 94719347594 19554 Active 2015 Other otitis externa, bilateral ; Note: Date Diagnosed : 05/12/2015 12:59 AM (H60.8X3) Not Available [facility] 4 02:46:49 Dizziness and giddiness 901301667 Active 2015 Dizziness and giddiness ; Note: Date Diagnosed : 06/22/2015 2:10 PM (R42) Not Available [facility] 4 02:46:50 Pain of temporoma ndibular joint 83159530 Active 2015 Arthralgi a of temporoma ndibular joint; Note: Date Diagnosed : 05/12/2015 12:58 AM (M26.62) Not Available [facility] 4 02:46:52 Impacted cerumen in right ear 08905566896 11237 Active 2017 Impacted cerumen, right ear; Note: Date Diagnosed : 03/06/2017 4:03 PM (H61.21) Not Available [facility] [place] 4 02:46:52 Sensorine ural hearing loss of bilateral ears 799704760 Active 2015 Sensorine ural hearing loss, bilateral ; Note: Date Diagnosed : 06/22/2015 2:10 PM (H90.3) Not Available [facility] [place] 4 02:46:54 Impacted cerumen of bilateral ears 10211356201 48434 Active 2016 Impacted cerumen, bilateral ; Note: Date Diagnosed : 08/08/2016 2:34 PM (H61.23) Not Available [facility] [place] 4 02:46:56 Diffuse otitis externa 15915742 Active 2018 Diffuse otitis externa, right ear; Note: Date Diagnosed : 02/25/2018 4:53 PM (H60.311) Not Available [facility] [place] 4 02:46:56 Nasal congestio n 88562403 Active 2023 JUAN PABLO KABA MD [address] [facility],[place] [address], [place], [address] , [place] - [facility] 4 21:32:56 Foreign body in right ear 91678437112 726418 Active 2023 JUAN PABLO KABA MD [address] [facility],[place] [address], [place], [address] , [place] - [facility] 4 21:33:01 Chronic hoarsenes s 65062511802 05 Active 2024 FARHEEN ARMSTRONG PA-C [address] [place] [address],[place] [address], [place], [address] , [place] - [facility] 5 11:50:32 Gastroeso phageal reflux disease without esophagit is 568425044 Active 2024 FARHEEN ARMSTRONG PA-C [address] [facility],[place] [address], [place], [address] , [place] - [facility] 5 12:33:50 Problem Notes None recorded. Procedures Surgical History Date Name Laterality Status Provider Name and Address Organization Details Recorded Time 5 FOL_DP completed FARHEEN ARMSTRONG PA-C [address] [facility] [address], [place], [address], [facility] - [facility] 04/25/2024 12:31:13 4 Removal of foreign body from ear canal completed JUAN PABLO KABA MD [address] [facility] [address], [place], [address], [facility] - [facility] 10/07/2023 21:35:30 Imaging Results Imaging Date [...] oil oral 2015 active Medicati on ID: 863932 D uration Value: 23 Brand Name: mineral [...] mg tablet 2015 active Medicati on ID: 385251 D uration Value: 5 Brand Name: naproxen [...] mg tablet 2015 active Medicati on ID: 604649 D uration Value: 30 Brand Name: ranitidi [...] mg tablet 02/25 completed Medicati on ID: 507348 D uration Value: 30 Brand Name: sertrali ne Send Method: E-Prescr ibed Sub s Allowed: subs OK Medic ationGen ericName : sertrali ne Not Available Not Available Not Available prednison e 5 mg tablet active Not Available Not Available Not Available quetiapin e 200 mg tablet 02/25 completed Medicati on ID: 450045 D uration Value: 30 Brand Name: quetiajc [...] mg tablet 03/07 completed Medicati on ID: 887733 D uration Value: 10 Prescri bed By [...] 2 hr 2015 active Medicati on ID: 723058 D uration Value: 30 Brand Name: carbamaz [...] mg capsule 2015 active Medicati on ID: 029230 D uration Value: 12 Brand Name: progeste [...] mg capsule 02/25 completed Medicati on ID: 754521 D uration Value: 30 Brand Name: gabapent [...] mg tablet 2015 active Medicati on ID: 109361 D uration Value: 30 Brand Name: diazepam Send Method: E-Prescr ibed Sub s Allowed: subs OK Medic ationGen ericName : diazepam Not Available Not Available Not Available amoxicill in 875 mg-potass ium clavulana te 125 mg tablet 05/29 completed Medicati on ID: 146419 D uration Value: 20 Reason: () Brand [...] ous solution 2015 active Medicati on ID: 028769 D uration Value: 28 Brand Name: Xolair [...] n capsules 2015 active Medicati on ID: 468008 D uration Value: 30 Brand Name: Spiriva [...] mg capsule 2015 active Medicati on ID: 946780 D uration Value: 20 Brand Name: butalbit [...] Updated DateTime 04/25/2024 154.94 cm 32.7 kg/m2 46937.48 g Saima Morejon [place] - [facility] 04/25/2024 11:00:15 Social History None recorded. [...] SNOMED-CT Code Diagnosis ICD10 Code Diagnosis Note [id number] JUAN PABLO KABA MD [facility] [address] [place] [address] 10/02/2023 09:52:16 10/02/2023 12:00:59 Foreign body in right ear [id number] 9633878 T16.1XXA Nasal congestion 4177762 0 R09.81 63-year-ol d female presents today [...] her hearing. She may follow-up as needed. [id number] FARHEEN ARMSTRONG PA-C [facility] [address] [address] 04/25/2024 10:31:44 04/25/2024 11:53:14 Chronic hoarseness 6065441012 105 R49.0 Gastroesop hageal reflux disease without esophagitis 951723154 K21.9 Health Concerns Section Related Observation LastModified by Organization Detai ls LastModified Time None Recorded Concern Status LastModified by Organization Details LastModified Time None Recorded Advance Directives Directive None Recorded Payers Insurance Date Sequence Insurance Name Policy Number Policy Valdez Covered Member ID Valdez Member ID Guarantor Name 04/22/2024 1 [facility] - DOS ON OR AFTER 2022 - MEDICARE [place]VANTAGE [place] (MEDICARE REPLACEMENT/ADV ANTAGE - PPO) Elizabeth Huang [id number] Elizabeth Huang Notes Date Note Type Note [...] pain. No epistaxis. JUAN PABLO KABA MD [address] [place] [address], [address], [place] - [facility] 10/07/2023 21:36:00 04/25/2024 text/html 63 year [...] that she is prediabetic. SULEMAN SCHULTZ MD [address] [place] [address] [address], [place], [address], [place] - [facility] 04/25/2024 16:52:12 OBGyn Episode No OBEpisode recorded.
--- OUTSIDE RECORDS SUMMARY | 2024-07-02 17:09 | XMS_ITS | Referral Summary ---
Author Organization [facility] Address [address] [place] [address] Care Team Providers Care Corporate Real Estate Specialist Name Role Phone Clare Wilson Primary Care Provider [phone] Encounters Date Type Department Care Team Description 07/02/2024 Telephone [facility] Sports Medicine [address] [place] [address] Telephone Intake, Staff PAC Surgery/procedure Scheduling - Rufo from Last 3 Months Allergies Active Allergy [...] 100 mgoral2 times daily, Reported on 01/07/2024 Mobile2Win Indiatz Autoinjector 80 mg/mL auto-injector Inject 80 mg under the skin. Active aspirin 81 mg EC tablet Take 1 tablet (81 mg total) by mouth 2 (two) times a day. 28 tablet 4 Active Active Problems Problem Noted Date Diagnosed Date Chronic obstructive pulmonary disease 12/05/2021 Calculus of kidney 12/05/2021 Abdominal pain 12/05/2021 Knee pain 12/05/2021 Diabetes mellitus 12/05/2021 Hearing loss 12/05/2021 Overview (12/05/2021): [facility] audiology History of total hysterectom y with bilateral salpingo-oophorectomy (BSO) 12/05/2021 Lower urinary tract infectious disease Menopausal syndrome 12/05/2021 Obesity 12/05/2021 Osteoarthritis 12/05/2021 Pelvic pain in female 12/05/2021 Pernicious anemia 12/05/2021 Posttraumatic stress disorder 12/05/2021 Respiratory abnormalities 12/05/2021 Shoulder pain 12/05/2021 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 Vertigo 12/05/2021 Trigger finger of thumb 11/10/2021 Overview (11/10/2021): Added automatically from request for surgery [id number] Trigger index finger of left hand 11/10/2021 Overview (11/10/2021): Added automatically from request for surgery [id number] COVID-19 virus infection 11/25/2020 Overview (12/05/2021): Last [...] Description 08/08/2024 1:45 PM EDT Procedure visit [address] [address] Sandy Snyder DO [address] [place] [address] 10/02/2024 1:45 PM EDT Follow-Up [address] [phone] Luis Minor MD [address] [place] [address] Medical Devices Implanted Type Area Fabrication Supervisor Device Identifier Shelf Expiration Date Model / Serial / Lot [place] Suture Double Loaded With White/Blue White/Black Suturetape Fibertrak Rc - [id number] Implanted:Qty: 1 on 04/02/2020 by Luis Minor MD at [facility] Implant Right: Shoulder [employer] 01/11/2023 AR-[id number] / / [id number] Insurance [facility] Advance Directives * Full Code (Latest Code Status on File) Date Activated Date Inactivated Comments 04/02/2020 10:29 AM 04/02/2020 6:36 PM Healthcare Agents on File Name Relationship Healthcare Agent [facility] Communication Pilar Olvera Sister Next of Kin [phone] (Kamala griffin) Care Teams Corporate Real Estate Specialist Relationship Specialty Start Date End Date Claer Wilson [address] [place] [phone] PCP - General Family Medicine 09/10/23
--- OUTSIDE RECORDS SUMMARY | 2024-07-02 17:09 | XMS_ITS | Clinical Summary ---
Author Organization [facility] Address [address] [place] [address] Care Team Providers Care Patent Solicitor Name Role Phone Lexa Wilsonsun Sharpe Primary Care Provider [phone] Allergies Active Allergy Reactions Criticality Noted Date [...] (11/10/2021): Added automatically from request for surgery [id number] Trigger index finger of left hand 11/10/2021 Overview (11/10/2021): Added automatically from request for surgery [id number] COVID-19 virus infection 11/25/2020 Overview (12/05/2021): Last [...] risperidone, and prazosin as prescribed. Dr Renae Saunders Asthma 06/16/2013 Overview (12/05/2021): Asthma Asthma Last Assessment & Plan: No acute symptoms, continue outpatient medications Seasonal allergic rhinitis 06/16/2013 Overview (12/05/2021): Allergic rhinitis Encounters Date Type Department Care Team Description 07/02/2024 Telephone [facility] Sports Medicine [address] [place], [place] [phone] Telephone Intake, Staff PAC Surgery/procedure Scheduling - Rufo from Last 3 Months Family History Medical [...] Description 08/08/2024 1:45 PM EDT Procedure visit [address] [address] Sandy Snyder DO [address] [place] [address] 10/02/2024 1:45 PM EDT Follow-Up [address] [address] Luis Minor MD [address] [place] [address] Health Maintenance Due Date Last Done Comments [...] history exists Medical Devices Implanted Type Area Engraver Optical Frames Device Identifier Shelf Expiration Date Model / Serial / Lot [place] Suture Double Loaded With White/Blue White/Black Suturetape Fibertrak Rc - [id number] Implanted:Qty: 1 on 04/02/2020 by Luis Minor MD at [facility] Implant Right: Shoulder [employer] 01/11/2023 AR-[id number] / / [id number] [place] [address] Advance Directives * Full Code (Latest Code Status on File) Date Activated Date Inactivated Comments 04/02/2020 10:29 AM 04/02/2020 6:36 PM Healthcare Agents on File Name Relationship Healthcare Agent Relationshi p Communication Pilar Olvera Sister Next of Kin [phone] (M gaby) Care Teams Patent Solicitor Relationship Specialty Start Date End Date Clare Wilson [address] [place] [phone] PCP - General Family Medicine 09/10/23
--- OUTSIDE RECORDS SUMMARY | 2024-07-02 17:09 | XMS_ITS | Encounter Summary ---
Author Organization [facility] Address [address] [place] [address] Care Team Providers Care Absorption Plant Operator Helper Name Role Phone Clare Wilson Primary Care Provider [phone] Reason for Visit * Auth/Cert (Routine) Specialty Diagnoses / Procedures Referred By Contshanna t Referred To Contact Diagnoses Chronic left shoulder pain Chronic left shoulder pain [M25.512, G89.29] Procedures MA SHLDR ARTHROSCOP,SURG,W/ROTAT CUFF REPR MA SHLDR ARTHROSCOP,EXTEN DEBRIDE MA REPAIR BICEPS LONG TENDON ARTHROSCOPY, SHOULDER, SURGICAL;?? WITH ROTATOR CUFF REPAIR ARTHROSCOPY, SHOULDER, SURGICAL;?? DEBRIDEMENT, EXTENSIVE TENODESIS OF LONG TENDON OF BICEPS Luis Minor MD [address] [place] [address] Phone: tel: fax: Referral ID Status Reason Start Date Expiration Date Visits Re quested Visits Authorized [id number] 10/03/2023 99 99 Encounter Details Date Type [...] Description 08/08/2024 1:45 PM EDT Procedure visit [facility] [address] [place] [address] Sandy Snyder DO [address] [place] [address] 10/02/2024 1:45 PM EDT Follow-Up [address] [address] Luis Minor MD [address] [place] [address] documented as of this encounter Visit Diagnoses Diagnosis Shoulder pain- Primary Pain in joint, shoulder region documented in this encounter Admitting Diagnoses Diagnosis Shoulder pain Pain in joint, shoulder region documented in this encounter Care Teams Absorption Plant Operator Helper Relationship Specialty Start Date End Date Clare Wilson [address] [place] [phone] PCP - General Family Medicine 09/10/23 documented as of this encounter
--- OUTSIDE RECORDS SUMMARY | 2024-07-02 17:09 | XMS_ITS | Encounter Summary ---
Author Organization [facility] Address [address] [place] [address] Care Team Providers Care Marine Drafter Name Role Phone Clare Wilson Annemarie Primary Care Provider [phone] Encounter Details Date Type Department Care Team (Late Contact Info) Description 01/16/2024 Orders Only [facility] Surgery [address] [place], [place] [phone] Jesus Gillis MD [address] [place] [address] Social History Tobacco Use Types Packs/Day Years [...] Description 08/08/2024 1:45 PM EDT Procedure visit [facility] Medicine [address] [place], [place] [phone] Sandy Snyder DO [address] [place] [address] 10/02/2024 1:45 PM EDT Follow-Up [facility] Sports Medicine [address] [place] [address] Luis Minor MD [address] [place] [address] documented as of this encounter Visit Diagnoses Not on filedocumented in this encounter Care Teams Marine Drafter Relationship Specialty Start Date End Date Clare Wilson [address] [place] [phone] PCP - General Family Medicine 09/10/23 documented as of this encounter
--- OUTSIDE RECORDS SUMMARY | 2024-07-02 17:09 | XMS_ITS | Encounter Summary ---
Author Organization [facility] Address [address] [place] [address] Care Team Providers Care Car Sweeper Name Role Phone Clare Wilson Primary Care Provider [phone] Reason for Visit * Reason Onset Date Comments PAC Surgery/procedure Scheduling - Claudio 07/03/19 Encounter Details Date Type Department Care Team (Late st Contact Info) Description 07/02/[address] [address] Telephone Intake, Staff PAC Surgery/procedure Scheduling - Claudio Social History Tobacco Use Types Packs/Day Years [...] encounter Miscellaneous Notes * Telephone Encounter - Ashley Del Angel - 07/02/2024 10:26 AM EDT Nithin is the shoe parts caser for Pt. He is asking Dr Snyder's office to call Pt to discuss her injection rebecca scheduled for 08/08. Please call back [phone] documented in this encounter Plan of Treatment Upcoming Encounters Date Type Department Care Team (Late st Contact Info) Description 08/08/2024 1:45 PM EDT Procedure visit [address] [address] Sandy Snyder DO [address] [place] [address] 10/02/2024 1:45 PM EDT Follow-Up [address] [address] Luis Minor MD [address] [place] [address] documented as of this encounter Visit Diagnoses Not on filedocumented in this encounter Care Teams Car Sweeper Relationship Specialty Start Date End Date Clare Wilson [address] [place] [phone] PCP - General Family Medicine 09/10/23 documented as of this encounter
[2024-07-02 17:12] LABS: MANUAL DIFF FLAG NO
[2024-07-02 17:13] LABS: Basophils Percent Auto 0.5 % (0-2); Eosinophils Absolute Auto 0.2 X10*3/uL (0.0-0.4); Eosinophils Percent Auto 2.4 % (0-4); Hematocrit 34.8 % (37.0-47.0); Hemoglobin 11.3 g/dl (12.0-16.0); Imm Gran Abs Auto 0.03 X10*3/uL (0.00-0.03); Imm Gran Pct Auto 0.5 % (0.0-0.4); Lymphocytes Absolute Auto 2.2 X10*3/uL (1.2-4.9); Lymphocytes Percent Auto 34.8 % (20-40); Mean Corpuscular HGB Conc 32.5 g/dl (31.0-35.0); Mean Corpuscular Hemoglobin 30.5 pg (27.0-33.0); Mean Corpuscular Volume 94.1 fL (80.0-98.0); Mean Platelet Volume 10.2 fL (9.4-12.3); Monocytes Absolute Auto 0.6 X10*3/uL (0.1-1.2); Monocytes Percent Auto 8.8 % (2-11); Neutrophils Absolute Auto 3.3 x10*3/uL (2.0-8.3); Platelet Count 192 X10*3/uL (160-400); Red Cell Distribution Width 13.9 % (11.0-16.0); White Blood Count 6.2 X10*3/uL (4.8-10.8)
[2024-07-02 17:35] LABS: Alanine Aminotransferase 17 U/L (0-31); Albumin Level 3.6 g/dL (3.5-5.0); Alkaline Phosphatase 88 U/L (39-117); Anion Gap 12 (12-20); Aspartate Amino Transferase 35 U/L (5-31); Bilirubin Direct < 0.2 mg/dL (0.0-0.5); Bilirubin Total 0.2 mg/dL (0.0-1.0); Blood Urea Nitrogen 10 mg/dL (9-16); Calcium 8.6 mg/dL (8.4-10.2); Carbon Dioxide 19 mmol/L (22-29); Chloride 112 mmol/L (96-108); Estimated Glomerular Filt Rate > 60; Glucose Random 81 mg/dL (60-115); Lipase 38 U/L (8-78); Magnesium 1.9 mg/dL (1.6-2.6); Potassium 4.5 mmol/L (3.3-5.1); Sodium 138 mmol/L (135-145); Total Protein 7.6 g/dL (6.5-8.0)
[2024-07-02 18:30] LABS: Appearance Urine Clear; Color Urine Yellow; Glucose Urine UA Negative (Negative); Leukocyte Esterase Urine Negative (Negative); Nitrite Urine Negative (Negative); PH 7.5 (5.0-9.0); Urine Blood Negative (Negative); Urine Ketones Negative (Negative); Urine Protein Negative (Neg-Trace)
[2024-07-02] MEDS: Famotidine 20 MG TABLET PO (18:56)
[2024-07-02] MEDS: Magnesium Hydrox/Alum Hydrox 30 ML ORAL.SUSP PO (18:56)
[2024-07-02] MEDS: HYDROmorphone HCl 1 MG/ML SYRINGE IM (18:57)
[2024-07-02] MEDS: Diatrizoate Meglumine, Sodium 30 ML SOLUTION PO (19:04)
[2024-07-02 19:14] VITALS: BP 149/40; PULSE 53; RESP 18; TEMP 36.4; O2SAT 98
[2024-07-02] MEDS: Azithromycin 500 MG TABLET PO (22:05)
[2024-07-02 22:10] VITALS: BP 119/37; PULSE 84; RESP 16; TEMP 36.4; O2SAT 98
== END 2024-07-02 22:12 | disposition home or self-care (01) ==
PROVIDERS: Physician Assistant; Emergency Provider Emergency Medicine; PCP Family Medicine
DX: K21.9 Gastro-esophageal reflux disease without esophagitis (principal); J18.9 Pneumonia, unspecified organism; R10.2 Pelvic and perineal pain; M54.50 Low back pain, unspecified; R33.9 Retention of urine, unspecified; Z79.899 Other long term (current) drug therapy; Z87.891 Personal history of nicotine dependence
CPT/HCPCS: 36415; 71045; 74176; 80048; 80076; 81003; 83690; 83735; 85025; 96372; 99284; J1171

== ENCOUNTER → 2024-07-02 17:43 | Outpatient (BNV) | payer OTHER, SELFPAY | PROVIDERS: Emergency Provider Emergency Medicine; PCP Family Medicine; Visit Provider Radiology Vascular & Interventional Radiology | DX: R91.8 Other nonspecific abnormal finding of lung field (principal) | CPT/HCPCS: 71045; 74176 ==

== ENCOUNTER 2024-09-03 12:05 | Outpatient (AMB) | payer OTHER, SELFPAY ==
--- NOTE | 2024-09-03 12:06 | MHC.OFFVIS ---
Vital Signs 09/03/24 12:07 Height 5 ft 1 in Weight 171 lb 15.369 oz BMI 32.5 BP 107/66 Blood Pressure Location Lt brachial Position Sitting Pulse 74 Intake Visit Reasons: Follow up 2 months Intake Note: Elizabeth presents in the office as a follow up 2 month follow up. CC: She states that needs results from EGD and COLO. Was in the ED 3 times. 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 Allergies cephalexin Allergy (Intermediate, Verified 09/03/24 12:12) Diarrhea Iodinated Contrast Media (IV CONTRAST) Allergy (Intermediate, Verified 09/03/24 12:12) DIFF BREATHING morphine (MORPHINE) Allergy (Intermediate, Verified 09/03/24 12:12) HIVES nabumetone (NABUMETONE) Allergy (Intermediate, Verified 09/03/24 12:12) HIVES sulfamethoxazole (From BACTRIM) Allergy (Intermediate, Verified 09/03/24 12:12) HIVES trimethoprim (From BACTRIM) Allergy (Intermediate, Verified 09/03/24 12:12) HIVES dicloxacillin Allergy (Unknown, Verified 09/03/24 12:12) Rash dyclonine Allergy (Unknown, Verified 09/03/24 12:12) Unknown propranolol (Inderal LA) Allergy (Unknown, Verified 09/03/24 12:12) unknown quetiapine (Seroquel) Allergy (Unknown, Verified 09/03/24 12:12) rash seafood Allergy (Unknown, Verified 09/03/24 12:12) Unknown Sulfa (Sulfonamide Antibiotics) Allergy (Unknown, Verified 09/03/24 12:12) hives amoxicillin (From Augmentin) Allergy (Verified 09/03/24 12:12) stomach pain clavulanic acid (From Augmentin) Allergy (Verified 09/03/24 12:12) stomach pain polyethylene glycol (From Golytely) Adverse Reaction (Severe, Verified 09/03/24 12:12) Hallucinations polyethylene glycol 3350 (From Golytely) Adverse Reaction (Severe, Verified 09/03/24 12:12) Hallucinations potassium chloride (From Golytely) Adverse Reaction (Severe, Verified 09/03/24 12:12) Hallucinations sodium (From Golytely) Adverse Reaction (Severe, Verified 09/03/24 12:12) Hallucinations sodium bicarbonate (From Golytely) Adverse Reaction (Severe, Verified 09/03/24 12:12) Hallucinations sodium chloride (From Golytely) Adverse Reaction (Severe, Verified 09/03/24 12:12) Hallucinations sodium sulfate (From Golytely) Adverse Reaction (Severe, Verified 09/03/24 12:12) Hallucinations doxycycline (DOXYCYCLINE) Adverse Reaction (Intermediate, Verified 09/03/24 12:12) NAUSEA & VOMITTING From INDERAL Allergy (Intermediate, Uncoded 09/03/24 12:12) RASH Codeine Sulfate Allergy (Unknown, Uncoded 09/03/24 12:12) Unknown HPI HPI Follow up 2 months: Details: Assessment & Plan (1) Abnormal CT scan: Comment: perinephretic stranding on CT from [facility] 07/02/2024 Code(s): R93.89 - Abnormal findings on diagnostic imaging of other specified body structures Category: Medical (2) Nephrolithiasis: Code(s): N20.0 - Calculus of kidney Category: Medical (3) Periumbilical abdominal pain: Code(s): R10.33 - Periumbilical pain Category: Medical Plan On 07/02/24 @ 10:49 Ana Maria Adorno Wrote To Ana Maria Adorno (2) Called patient at 10:10 this morning and she reports to me that she has had pain that she describes as sharp and stabbing just above the umbilicus that is fixed but does radiate straight to her back, specifically the lower back. The intensity of the pain is 8 to 10/10. It is intermittent and she can not describe any exacerbating factors but she says that it is sometimes is mildly helped by rubbing her stomach. She says that this picking predates her colonoscopy by many weeks. I have not seen her since last summer, so I let her know this is new to me. She do not not feel the pain is related to moving her bowels or eating particularly that she can identify. She says she was moving her bowels normally without any feeling of constipation or diarrhea. I review her ER records from [facility], and the GI system appears to be completely normal including her pancreas. However, they do note perinephritic stranding, and when I ask her she has not any history of kidney stones she says she does not in the past a urologist had to extract 1 surgically in [place]. She also states that she has had trouble urinating. She reports drinking plenty of fluids. I let her know that this is likely not diverticulosis particularly given the negative CAT scan findings. She was a bit hysterical and continues about diverticulosis which was found on her colonoscopy versus diverticulitis. I explained to her that most people with diverticulosis to not go on to develop an infection and that does not appear to be the source of her pain at this time. However they did not obtain a urinalysis and I would like to get that to see if there is hematuria or infection and I think an ultrasound of her renal system may be in order. She wants to know what she should do for the pain, and I tell her I do not know what to do at this point because we are not sure what the source it and that affects the treatment decision. However, I will start her on some Flomax to see if this makes a difference particularly the 8 in urination so that we can obtain a urine sample. It is possible that she has a UTI but the differential diagnosis for her pain is extremely wide and could include musculoskeletal or even psychogenic causes. Because she has no response to the pain with her dicyclomine I doubt that it is colonic in nature. Because the pain 3 8 colonoscopy I also doubt that this is constipation driven despite their saying there is a mild stool burden on CAT scan. Her upper endoscopy also has only very mild findings that would not correlate well with the description of pain. She already has a follow-up appointment booked with me in early July and she would like to see me sooner, we will see what evolves with her testing as my schedule is quite limited at this time. I let her know this, but I will be in touch with her. Medications: Discontinued diclofenac sodium Discontinued Reason: Doctor's Order 75 mg PO BID PRN 60 tabs 0RF pain She developed sudden onset RLQ pain 3 weeks ago. She has had a CT and an US that showed only, on US, ? of renal stone. The pain feels like someone id stabbing her with a knife and radiates to her back. The pain comes and goes, but will last hours when it starts, She can not ID any precipitating factors, and only is better with laying on her left side. The pain is worse when she urinates but is not worse with BM. She has been taking tylenol and motrin which only takes the edge off. The pain is 10/10. She continues on her dicyclomine, Colace, Lactaid tablets, and pantoprazole twice a day. I am afraid that she may have smoldering appendicitis since this can frequently be difficult to diagnose. I am going to try treating her with an antibiotic to see if it gets any better and I did let her know that if it gets severely where she should report to the ER that this can be a tricky thing to diagnose. Will also get a urinalysis to see if this any blood in the urine in any reason to suspect that she is passing kidney stone. Will give her some ibuprofen since this together with Tylenol should help her with the pain. Return office visit in 1 week given the mysterious and sudden onset of her pain. Orders: Orders UA CC w/rflx Micro + Cult 08/01/23 R10.31 - Right lower quadrant pain Medications: New metronidazole 500 mg PO TID 30 tabs 0RF 10 days ibuprofen 600 mg PO TID 90 tabs 0RF pain R10.31 - Right lower quadrant pain levofloxacin 500 mg PO DAILY 14 tabs 0RF R10.31 - Right lower quadrant pain LABS: 07/02/24 Collection Time: 1817 Source: Urine, Clean Catch Test Result Flag Reference Ur Color Yellow Ur Appear Clear PH 7.5 5.0-9.0 Ur Glu Negative Negative mg/dL Urine Blood Negative Negative Spec Forest Ur 1.010 1.005-1.025 Urine Protein Negative Neg-Trace mg/dL Urine Ketones Negative Negative mg/dL Ur Nitrite Negative Negative Ur Deric Esterase Negative Negative EGD/ COLONOSCOPY 06/30/2024 Larynx: Normal Esophagus: GE junction at 34 cms, small hiatal hernia 34 to 36 cms. No esophagitis or Peoples's. Stomach: Mild gastric antral erythema - biopsies were obtained to check for H pylori. Grade 2 flap valve on retroflexed examination of the cardia. Duodenum: Normal bulb and descending duodenum Biopsies were obtained from descending duodenum to check for celiac sprue Findings: Terminal Ileum: Not evaluated Cecum: Normal Ascending Colon: A 2-3 mm sessile polyp in the proximal AC - removed with a cold biopsy. A 10 - 12 mm sessile polyp - removed with a stiff hot snare A 2 cms flat polyp at the hepatic flexure at 70 cms. Polyp was raised with 5 cc of Eleview and removed with a stiff hot snare. Polypectomy site was treated with the APC, closed with 1 hemoclip and marked by addy ink Transverse Colon: A 12 - 15 mm flat polyp - raised with 3 cc of Eleview and removed with a stiff hot snare. Polypectomy site was closed with 2 hemoclips. A 7-8 mm sessile polyp - removed with a stiff hot snare. Descending Colon: Moderate diverticulosis Sigmoid Colon: Moderate diverticulosis Rectum: Normal Ano-rectum: Small internal hemorrhoids Impression and Post Procedure Diagnosis: Endoscopy Findings: ESOPHAGUS: Small hiatal hernia 34 to 36 cms. No esophagitis or Peoples's. STOMACH: Mild antral gastritis DUODENUM: Normal - biopsied to check for celiac sprue Colonoscopy Findings: Five small to medium sized polyps were removed Moderate diverticulosis seen in the left colon Small hemorrhoids on retroflexed exam. Plan: Pt has a FU appointment on 07/17/24 with Ana Maria Adorno NP. Repeat Colonoscopy in 1 year to check polypectomy site at the hepatic flexure if polyps are adenomatous A summary of above findings and relevant handouts were given to the patient. BIOPSIES SHOWED: A. Small bowel, biopsy: Small intestinal mucosa within normal limits. B. Stomach, antrum, biopsy: Antral-type mucosa within normal limits; no Helicobacter organisms seen. C. Colon, transverse, polypectomies: Fragments of tubular adenomata; negative for high-grade dysplasia or carcinoma. D. Colon, ascending, polypectomies: - Tubular adenoma; negative for high-grade dysplasia or carcinoma. - Clinically polypoid colonic mucosa with thermal artifact. E. Colon, hepatic flexure, polypectomy: Fragments of tubular adenoma; negative for high-grade dysplasia or carcinoma. F. Colon, random, biopsy: Colonic mucosa within normal limits TODAY'S VISIT She is agreeable to a 1 year follow-up. The procedure was well tolerated. The results were explained and the patient is agreeable to the follow-up interval as stated. The bowel pattern has returned to normal. Education was provided to tell any 1st degree relatives about their findings to be sure that they are screened by age 45. Educated that they will be put on a recall list when it is time for their repeat scope but should they move out of state or away from the hospital they will need to remember along with their primary to repeat the procedure in a timely fashion to avoid any adverse complications. She continues on her dicyclomine, Colace, Lactaid tablets, and pantoprazole twice a day. She is in a hurry to get going today because she has a birthday constitution party to attend! Return office visit in 6 months [facility] Medical History RLQ abdominal pain Spinal stenosis TMJ (dislocation of temporomandibular joint) Migraine COPD (chronic obstructive pulmonary disease) Asthma Depression Anxiety Prediabetes Arthritis of right knee Umbilical hernia Chronic idiopathic constipation Surgical History History of shoulder surgery (~01/2024) History of carpal tunnel release Hx of colonoscopy History of esophagogastroduodenoscopy (EGD) Hx of hand surgery H/O eye surgery Hx of hysterectomy Family History Father Bone cancer Mother Diabetes Family/Other Family history of breast cancer Social History Household Members: None Housing: Apartment Are you a primary career based intervention coordinator to a significant other at home: No Do you presently have visiting nurse or other home services: No Alcohol intake: current Alcohol intake frequency: does not drink Patient Tobacco Use Status: Former Tobacco user service: No Review of Systems Const Denies fatigue, Denies fever(s), Denies night sweats, Denies poor appetite and Denies weight loss ENT Reports Normal hearing present, Denies dental pain, Denies dysphagia, Denies hearing loss, Denies mouth pain, Denies odynophagia, Denies throat swelling, Denies tongue swelling and Reports other (Dentition adequate) Card Reports no additional complaints Resp Reports no additional complaints GI Details: Denies abdominal pain, Denies melena, Denies bloating, Denies hematochezia, Denies constipation, Denies GI cramping, Denies dysphagia, Denies excessive flatus, Denies early satiety, Reports heartburn, Denies diarrhea, Reports loose stools, Denies nausea, Denies odynophagia, Denies vomiting and Denies hematemesis Skin/Breast Denies pruritus, Denies lesions, Denies rash and Denies jaundice Neuro Reports Normal hearing present and Denies Abnormal speech present Endo Denies fatigue Aller/Immun Denies throat swelling and Denies tongue swelling Physical Exam Vital Signs: Last Vital Signs Pulse 74 09/03/24 12:07 BP 107/66 09/03/24 12:07 BMI result Body Mass Index 32.5 Const General: cooperative, no acute distress, well developed and well groomed Nutritional Appearance: well nourished and overweight Orientation/consciousness: oriented to person, oriented to place and oriented to time Limitations: No language barrier and ambulation with walker HEENT Head: Yes normocephalic and Yes atraumatic Eyes General: appearance normal, both eyes and all related structures Pupils: Equal, round and reactive pupils present Neck Neck: Yes normal visual inspection and Yes no lymphadenopathy Thyroid: Thyroid normal Resp Effort & Inspection: normal respiratory effort and able to speak in complete sentences Auscultation: clear to auscultation bilaterally Cardio Rate: regular rate Rhythm: regular rhythm Heart sounds: Normal, physiologic split S2 sound present Peripheral pulses: radial pulses present and posterior tibial pulses present GI Inspection: No distended and No Abdominal panniculus present Palpation (GI): Soft to palpation, nontender, no guarding, not rigid, No hepatosplenomegaly present and Hepatosplenomegaly present Percussion: Yes normal to percussion Auscultation: normal bowel sounds Rectal Exam - Female: deferred Skin General skin exam: no rashes or lesions noted, turgor normal, skin not dry, no jaundice, No spider nevi and no striae Rashes: no rashes Nails: normal Neuro General: oriented to person, oriented to place and oriented to time Cranial nerves: Yes Equal, round and reactive pupils present and Yes Normal hearing present Speech: No Abnormal speech present Extrem General: Yes normal to inspection, No clubbing, No cyanosis and No edema Psych Appearance: grossly normal and well kempt Mental Status: mental status grossly normal Speech and movement: Normal speech and movement present Affect: normal affect Attitude: cooperative Thought process: Normal thought process present and not confabulating Thought content: Normal thought content present Insight: Limited insight present (Psych) Judgement: Limited judgement present (Psych) Assessment & Plan Assessment & Plan (1) GERD (gastroesophageal reflux disease): Code(s): K21.9 - Gastro-esophageal reflux disease without esophagitis Category: Medical (2) IBS (irritable bowel syndrome): Code(s): K58.9 - Irritable bowel syndrome, unspecified Category: Medical (3) Diarrhea: Code(s): R19.7 - Diarrhea, unspecified Category: Medical Plan She is agreeable to a 1 year follow-up. The procedure was well tolerated. The results were explained and the patient is agreeable to the follow-up interval as stated. The bowel pattern has returned to normal. Education was provided to tell any 1st degree relatives about their findings to be sure that they are screened by age 45. Educated that they will be put on a recall list when it is time for their repeat scope but should they move out of state or away from the hospital they will need to remember along with their primary to repeat the procedure in a timely fashion to avoid any adverse complications. She continues on her dicyclomine, Colace, Lactaid tablets, and pantoprazole twice a day. She is in a hurry to get going today because she has a birthday constitution party to attend! Return office visit in 6 months Medications: Refilled dicyclomine 10 mg PO Q6H PRN 120 caps 6RF abdominal pain docusate sodium 100 mg PO BID 60 caps 6RF pantoprazole 40 mg PO BID 60 tabs 6RF K21.9 - Gastro-esophageal reflux disease without esophagitis Coding Level of Care Code Est Pt Level 3 (23187) Diagnoses GERD (gastroesophageal reflux disease) K21.9 IBS (irritable bowel syndrome) K58.9 Diarrhea R19.7
[2024-09-03 12:07] VITALS: BP 107/66; PULSE 74; BMI 32.5
--- OUTSIDE RECORDS SUMMARY | 2024-09-03 12:43 | XMS_ITS | Encounter Summary ---
Author Organization [facility] Address [address] [place] [address] [place] [phone] Phone Care Team Providers Care Mechanical Systems Design Engineer Name Role Phone Amisha Frost Primary Care Provider Amilcar Hadley MD Primary Care Provider [phone] Arabella Cerda NP Primary Care Provider Clare Wilson MD Primary Care Provider + Tamiko Manrique-C Unavailable Clare Wilson MD Primary Care Provider + Leandro Pugh MD Primary Care Provider Encounter Details Date Type Department Care Team (Late st Contact Info) Description 08/03/2019 Procedure Pass [facility], Ct Scan - [address] [address] Social History Tobacco Use Types Packs/Day Years Used Date Smoking Tobacco: Former Cigarettes Q uit: 2012 Smokeless Tobacco: Never Alcohol Use Standard Drinks/Week Comments No 0 (1 standard drink = 0.6 oz pur e alcohol) Comments No Sex and Gender Information Value Date Recorded Sex Assigned at Female 02/19/2017 9:43 AM EST Legal Sex Female 5:56 PM EST Gender Identity Female 11/10/2022 1:55 PM EDT Sexual Orientation Straight 02/09/2018 1: 15 PM EST documented as of this encounter Plan of Treatment Upcoming Encounters Date Type Department Care Team (Late st Contact Info) Description 09/23/2024 11:00 AM EDT Infusion [facility] [address] [place] [phone] Aaron Cheng MD [address] [place] [phone] 10/01/2024 11:00 AM EDT Office Visit [facility] [address] [place] [phone] Sebastien Go PA-C [address] [place] [address] [place] [phone] 10/17/2024 11:00 AM EDT Infusion [facility] Infusion [facility] [address] [place] [phone] Aaron Cheng MD [address] [place] [address] 11/07/2024 11:00 AM EDT Infusion [facility] Infusion [facility] [address] [place] [address] Aaron Cheng MD [address] [place] [address] 12/01/2024 11:00 AM EDT Infusion [facility]fusion [facility] [address] [place] [address] Aaron Cheng MD [address] [place] [address] 12/22/2024 11:00 AM EST Infusion [facility] Infusion [facility] [address] [place] [address] Aaron Cheng MD [address] [place] [phone] 01/13/2025 11:00 AM EST Infusion [facility]fusion [facility] [address] [place] [address] Aaron Cheng MD [address] [place] [phone] 02/03/2025 11:00 AM EST Infusion [facility] Infusion [address] [address] Aaron Cheng MD [address] [place] [address] 02/24/2025 11:00 AM EST Infusion [facility] Infusion [address] [address] Aaron Cheng MD [address] [place] [address] documented as of this encounter Visit Diagnoses Not on filedocumented in this encounter Additional Health Concerns Infection Onset Date Last Indicated Resolved Time MRSA Comment:Infection Loaded by the Load Infection Utility 06/28/2016 06/28/2016 03/29/2022 1:[address] CoV-Risk 08/27/2019 08/28/2019 09/05/2019 8:47 AM EDT CoV-Risk 03/02/2020 03/02/2020 03/12/2020 1:24 AM EST COVID-19 11/25/2020 11/25/2020 12/16/2020 1:24 AM EDT CoV-Risk 12/05/2021 12/05/2021 12/16/2021 1:22 AM EDT CoV-Risk 02/13/2022 02/13/2022 02/13/2022 6:07 PM EST COVID-19 02/13/2022 02/13/2022 03/06/2022 1:21 AM EST CoV-Risk 09/24/2022 09/24/2022 10/05/2022 1:21 AM EDT CoV-Exposed Comment:Removed via automated background process based on negative test result 06/11/2023 06/11/2023 06/16/2023 5:30 PM E DT CoV-Risk 06/11/2023 06/16/2023 06/27/2023 1:21 AM EDT CoV-Risk 08/04/2023 08/04/2023 08/15/2023 1:21 AM EDT CoV-Risk 11/12/2023 11/12/2023 11/23/2023 1:22 AM EDT CoV-Risk 12/09/2023 12/09/2023 12/20/2023 1:23 AM EST CoV-Risk 03/12/2024 03/12/2024 03/23/2024 1:21 AM EST CoV-Risk 04/01/2024 04/01/2024 04/12/2024 1:25 AM EST documented as of this encounter Care Teams Mechanical Systems Design Engineer Relationship Specialty Start Date End Date Amisha Frost PA [address] [place] [address] [email or web address] PCP - General 12/08/18 09/26/19 Amilcar Hadley MD [address] [address] [email or web address] PCP - General 09/27/19 03/01/20 Arabella Cerda NP [address] [place] [address] PCP - General Family Medicine 08/17/21 09/15/23 Clare Wilson MD [address] [place] [address] [email or web address] PCP - General Family Medicine 09/16/23 12/05/23 Clare Wilson MD [address] [place] [address] [email or web address] PCP - General Family Medicine 12/06/23 03/11/24 Leandro Pugh MD [address] [address] [email or web address] PCP - General Family Medicine 08/22/24 Tamiko Manrique PA-C [address] [place] [id number] [email or web address] Physician Food Consultant 11/14/23 documented as of this encounter Additional Source Comments The information contained in this document represents components of the legal health record. It is not the complete legal health record.[facility]
--- OUTSIDE RECORDS SUMMARY | 2024-09-03 12:44 | XMS_ITS | Data Portability ---
Author Organization [place] - [facility], Allergy Address [address] [address] Assessment Encounter Date Assessment Date Assessment LastModified [...] Appointments None recorded. Lab None recorded. Referral speech therapy referral 2024 025 [facility], [address] [place] [address] [place], [address], 10:52:29 Procedures None recorded. Surgeries None recorded. Imaging None recorded. Medication Orders None recorded. Patient TargetsNo targets recorded. Patient InstructionsNo instructions recorded. Reason for Referral Referring Physician: Farheen nieves, Otolaryngology, Encounter Date: 04/25/2024 Results Created Date Observation Date Name Description Value Unit Range Abnormal Flag Note LastModifiedBy Organization Detail LastModifiedTime 10/02/1905/11/2018 imagi ng/di agnos tic resul t No [...] Name and Address Organization Details Recorded Time Otitis externa of bilateral ears [id number] Active 2015 Other otitis externa, bilateral ; Note: Date Diagnosed : 05/12/2015 12:59 AM (H60.8X3) Not Available [facility] 4 02:46:49 Pain of temporoma ndibular joint 95492885 Active 2015 Arthralgi a of temporoma ndibular joint; Note: Date Diagnosed : 05/12/2015 12:58 AM (M26.62) Not Available [facility] 4 02:46:52 Bilateral tinnitus 67895423918 02 Active 2015 Tinnitus, bilateral ; Note: Date Diagnosed : 06/22/2015 2:10 PM (H93.13) Not Available [facility] 4 02:46:51 Dizziness and giddiness 175477936 Active 2015 Dizziness and giddiness ; Note: Date Diagnosed : 06/22/2015 2:10 PM (R42) Not Available [facility] 4 02:46:50 Sensorine ural hearing loss of bilateral ears 957349719 Active 2015 Sensorine ural hearing loss, bilateral ; Note: Date Diagnosed : 06/22/2015 2:10 PM (H90.3) Not Available [facility] 4 02:46:54 Impacted cerumen of bilateral ears 27781075610 97598 Active 2016 Impacted cerumen, bilateral ; Note: Date Diagnosed : 08/08/2016 2:34 PM (H61.23) Not Available [facility] 4 02:46:56 Impacted cerumen in right ear 74074029493 97475 Active 2017 Impacted cerumen, right ear; Note: Date Diagnosed : 03/06/2017 4:03 PM (H61.21) Not Available [facility] 4 02:46:52 Diffuse otitis externa 41877105 Active 2018 Diffuse otitis externa, right ear; Note: Date Diagnosed : 02/25/2018 4:53 PM (H60.311) Not Available [facility] 4 02:46:56 Nasal congestio n 98008742 Active 2023 JUAN PABLO KABA MD [address] [place] [address], [place], [address] , [facility] - [facility] 4 21:32:56 Foreign body in right ear 32311457478 703529 Active 2023 JUAN PABLO KABA MD [address] [place] [address], [place], [address] , [facility] - [facility] 4 21:33:01 Chronic hoarsenes s 75799191330 05 Active 2024 FARHEEN ARMSTRONG PA-C [address] [place] [address], [place], [address] , [facility] - [facility] 5 11:50:32 Gastroeso phageal reflux disease without esophagit is 663835185 Active 2024 FARHEEN ARMSTRONG PA-C [address] [place] [address],[place] [address], [place], [address] , [facility] - [facility] 5 12:33:50 Problem Notes None recorded. Procedures Surgical History Date Name Laterality Status Provider Name and Address Organization Details Recorded Time 5 FOL_DP completed FARHEEN ARMSTRONG PA-C 100 [facility], [place], [address], [facility] - [facility] 04/25/2024 12:31:13 4 Removal of foreign body from ear canal completed JUAN PABLO KABA MD 100 [facility], [place], [address], [facility] - [facility] 10/07/2023 21:35:30 Imaging Results None recorded. Procedure Notes None recorded. Medical Equipment None Reported. Medications Name Sig Start Date Stop Date Status Note LastModified by Organization Details LastModified Time multivita min tablet active Not Available Not Available Not Available amoxicill in 500 mg capsule active Not Available Not Available Not Available mineral oil oral 2015 active Medicati on ID: [id number] D uration Value: 23 Brand Name: mineral [...] mg tablet 2015 active Medicati on ID: [id number] D uration Value: 5 Brand Name: naproxen [...] mg tablet 2015 active Medicati on ID: [id number] D uration Value: 30 Brand Name: ranitidi [...] mg tablet 02/25 completed Medicati on ID: [id number] D uration Value: 30 Brand Name: sertrali ne Send Method: E-Prescr ibed Sub s Allowed: subs OK Medic ationGen ericName : sertrali ne Not Available Not Available Not Available prednison e 5 mg tablet active Not Available Not Available Not Available quetiapin e 200 mg tablet 02/25 completed Medicati on ID: [id number] D uration Value: 30 Brand Name: quetiapi [...] mg tablet 03/07 completed Medicati on ID: [id number] D uration Value: 10 Prescri bed By Name: CELIO Herrera nd Name: ciproflo xacin HCl Send Method: E-Prescr ibed Sub s Allowed: subs OK Speci al Instruct ion: 1 po BID for 10 days Med icationG enKevin me: ciproflo xacin HCl Not Available Not [...] 2 hr 2015 active Medicati on ID: [id number] D uration Value: 30 Brand Name: carbamaz [...] mg capsule 2015 active Medicati on ID: [id number] D uration Value: 12 Brand Name: timothy lindsayiz ed Send Method: E-Prescr ibed Sub s Allowed: subs OK Medic ationGen ericName : progeschandler laura microniz ed Not Available Not Available Not [...] mg capsule 02/25 completed Medicati on ID: [id number] D uration Value: 30 Brand Name: gabapent [...] mg tablet 2015 active Medicati on ID: [id number] D uration Value: 30 Brand Name: diazepam Send Method: E-Prescr ibed Sub s Allowed: subs OK Medic ationGen ericName : diazepam Not Available Not Available Not Available amoxicill in 875 mg-potass ium clavulana te 125 mg tablet 05/29 completed Medicati on ID: [id number] D uration Value: 20 Reason: () Brand [...] ous solution 2015 active Medicati on ID: [id number] D uration Value: 28 Brand Name: Xolair [...] n capsules 2015 active Medicati on ID: [id number] D uration Value: 30 Brand Name: Spiriva [...] mg capsule 2015 active Medicati on ID: [id number] D uration Value: 20 Brand Name: butalbit [...] Updated DateTime 04/25/2024 154.94 cm 32.7 kg/m2 22752.48 g Saima Morejon [place] - [facility] 04/25/2024 11:00:15 Social History None recorded. Functional Status None recorded. Mental Status None recorded. Family History Relationship Description Onset Age of this Age Resolved Age Notes LastModified by Organization Details LastModified Time Father No current problems or disability [email or web address] Not available 09/13 21:28:46 Mother No current problems or disability [email or web address] Not available 09/13 21:28:46 Medical History Condition Response Migraines Y Anxiety Y Hypertension Y Depression Y Asthma Y Gynecological HistoryNo gynecological history recorded. Obstetrics History GPAL:G 0 P 0 0 0 0 Past Encounters Encounter ID Performer Location Encounter Start Date Encounter Closed Date Diagnosis/Indication Diagnosis SNOMED-CT Code Diagnosis ICD10 Code Diagnosis Note [id number] JUAN PABLO KABA MD [facility] [address] [address] 10/02/2023 09:52:16 10/02/2023 12:00:59 Foreign body in right ear [id number] 2584012 T16.1XXA Nasal congestion 8774032 0 R09.81 63-year-ol d female presents today [...] her hearing. She may follow-up as needed. [id number] FARHEEN ARMSTRONG PA-C [facility] [address] [address] 04/25/2024 10:31:44 04/25/2024 11:53:14 Chronic hoarseness 6600718839 105 R49.0 Gastroesop hageal reflux disease without esophagitis 614128998 K21.9 Health Concerns Section Related Observation LastModified by Organization Detai ls LastModified Time None Recorded Concern Status LastModified by Organization Details LastModified Time None Recorded Advance Directives Directive None Recorded Payers Insurance Date Sequence Insurance Name Policy Number Policy Valdez Covered Member ID Valdez Member ID Guarantor Name 08/14/2024 1 [facility] - DOS ON OR AFTER 2022 - MEDICARE ADVANTAGE [place] (MEDICARE REPLACEMENT/ADV ANTAGE - PPO) Elizabeth Huang [id number] Elizabeth Huang Notes Date Note Type Note [...] pain. No epistaxis. JUAN PABLO KABA MD [address] [place] [address], [phone], [facility] - [facility] 10/07/2023 21:36:00 04/25/2024 text/html 63 year old [...] that she is prediabetic. SULEMAN SCHULTZ MD [address] [place] [address], [phone], [facility] - [facility] 04/25/2024 16:52:12 OBGyn Episode No OBEpisode recorded.
--- OUTSIDE RECORDS SUMMARY | 2024-09-03 12:44 | XMS_ITS | Encounter Summary ---
Author Organization [facility] Address [address] [place] [address] Care Team Providers Care City Recorder Name Role Phone Clare Wilson Primary Care Provider Encounter Details Date Type Department Care Team (Late Contact Info) Description 01/16/2024 Orders Only [facility] Surgery [address] [place], [place] [phone] Jesus Gillis MD [address] [place] [address] Social History Tobacco Use Types Packs/Day Years [...] Department Care Team (Late Contact Info) Description 10/02/2024 1:45 PM EDT Follow-Up [facility] Medicine [address] [place] [address] [phone] Luis Minor MD [address] [place] [address] [phone] documented as of this encounter Visit Diagnoses Not on filedocumented in this encounter Care Teams City Recorder Relationship Specialty Start Date End Date Clare Wilson [address] [place] [phone] PCP - General Family Medicine 09/10/23 documented as of this encounter
--- OUTSIDE RECORDS SUMMARY | 2024-09-03 12:44 | XMS_ITS | Continuity of Care Document ---
Author Name Stuart Cutler Address [address] [place] [address] Organization Unknown Address [address] [place] [address] Medications No known medications Problems No known problems
== END 2024-09-03 12:34 | disposition home or self-care (01) ==
LOC: HO.HGI 12:06
PROVIDERS: PCP Family Medicine; Visit Provider Nurse Practitioner
DX: K21.9 Gastro-esophageal reflux disease without esophagitis (principal); K58.9 Irritable bowel syndrome, unspecified; R19.7 Diarrhea, unspecified
CPT/HCPCS: 99213

== ENCOUNTER → 2024-09-03 12:05 | Outpatient (BNVA) | payer OTHER, SELFPAY | PROVIDERS: PCP Family Medicine; Visit Provider Nurse Practitioner | DX: K21.9 Gastro-esophageal reflux disease without esophagitis (principal); K58.0 Irritable bowel syndrome with diarrhea | CPT/HCPCS: 99212 ==

== ENCOUNTER 2024-10-21 12:18 | Outpatient (AMB) | payer OTHER, SELFPAY ==
--- OUTSIDE RECORDS SUMMARY | 2024-10-17 11:00 | XMS_ITS | Encounter Summary ---
Author Organization [facility] Address [address] [facility] [address] [place] [address] Phone Care Team Providers Care Flat Surfacer Jewel Name Role Phone Tamiko Manrique PA-C Unavailable [phone] Jenny Pugh MD Primary Care Provider [phone] Reason for Visit * Treatment and Therapy Plan (Routine) - Pending Review Specialty Diagnoses / Procedures Referred By Gerardo ag Referred To Contact Diagnoses Selective deficiency of IgG subclasses Procedures GAMMAGARD LIQUID INJECTION, 500 MG WI IV INFUS HYDRATION INITIAL 31 MIN-1 HOUR - [address] Aaron Cheng MD [address] [place] [address] Phone: tel: fax: Aaron Cheng MD [address] [place] [address] Phone: tel: fax: Referral ID Status Reason Start Date Expiration Date V isits Requested Visits Authorized [id number] Pending Review 10/17/2023 10/29/2038 99 99 Encounter Details Date Type Department Care Team ([facility] st Contact Info) Description 10/17/2024 11:00 AM EDT Infusion [facility] [address] [place] [address] Aaron Cheng MD [address] [place] [address] Selective deficiency of IgG subclasses (Primary Dx) Social History Tobacco Use Types Packs/Day Years Used Date Smoking Tobacco: Former Cigarettes Q uit: 2012 Smokeless Tobacco: Never Alcohol Use Standard Drinks/Week Comments No 0 (1 standard drink = 0.6 oz pur e alcohol) Education Answer Date Recorded Are you interested in more education? Not on ramesh e 06/14/2022 Are you concerned about learning? Not on file 06/14/2022 No 06/14/2022 No 06/14/2022 Food Answer Date Recorded Within the past 6 months we worried whether our food would run out before we got money to buy more. Never True 10/07/2024 Within the past 6 months the food we bought just didn't last and we didn't have enough money to get more. Never True Residential Stability Answer Date Recor ded What is your housing situation today? I have vero sing 10/07/2024 How many times have you move d in the past 12 months? Zero (I did not move) 10/07/2024 Paying for Meds Answer Date Recorded Do you have trouble paying for medicines? No 10/07/2024 Paying Utility Bills Answer Date Record ed Do you have trouble paying your heating or elect ricity bill? No 10/07/2024 Transportation Answer Date Recorded Has the lack of transportati on kept you from medical appointments or from getting medications? No 10/07/2024 Digital Access Answer Date Recorded No 10/07/2024 Yes 10/07/2024 Do you have reliable internet access at home? Ye s 10/07/2024 Do you have a device (e.g., phone, tablet, computer) with a working camera? Yes 10/07/2024 Intimate Partner Violence Answer Date R ecorded Are you denied basic needs s uch as food, clothing, or medical care? No 10/07/2024 In the past 12 months have y ou been in a relationship with a person who hurts, threatens, or tries to control you? No 10/07/2024 Are you denied basic needs s uch as food, clothing, or medical care? No 10/07/2024 In the past 12 months have y ou been in a relationship with a person who hurts, threatens, or tries to control you? No 10/07/2024 Comments No Sex and Gender Information Value Date Recorded Sex Assigned at Female 02/19/2017 9:43 AM EST Legal Sex Female 5:56 PM EST Gender Identity Female 11/10/2022 1:55 PM EDT Sexual Orientation Straight 02/09/2018 1: 15 PM EST documented as of this encounter Last Filed Vital Signs Vital Sign Reading Time Taken Comments Blood Pressure 141/78 10/17/2024 2:12 PM EDT Pulse 77 10/17/2024 2:12 PM EDT Temperature 36.7 C (98 F) 10/17/2024 11:00 AM EDT Respiratory Rate 20 10/17/2024 11:00 AM EDT Oxygen Saturation 97% 10/17/2024 2:12 PM EDT Inhaled Oxygen Concentration - - Weight - - Height - - Body Mass Index - - documented in this encounter Progress Notes * Felicitas Sepulveda RN - 10/17/2024 11:00 AM EDT Patient here for IVIG and reports stable at this time after several weeks of some issues with mental health. Tolerated Gammagard 30 gram infusion over rates of 40, 80, 160 max without any issues. documented in this encounter Plan of Treatment Upcoming Encounters Date Type Department Care Team (Late st Contact Info) Description 11/07/2024 11:00 AM EDT Infusion [facility] [address] [place] [address] Araon Cheng MD [address] [place] [address] 12/01/2024 11:00 AM EDT Infusion [facility] [address] [place] [address] Aaron Cheng MD [address] [place] [address] 12/22/2024 11:00 AM EST Infusion [facility] [address] [place] [address] Aaron Cheng MD [address] [place] [address] 01/13/2025 11:00 AM EST Infusion [facility] [address] [place] [address] Aaron Cheng MD [address] [place] [address] 02/03/2025 11:00 AM EST Infusion [facility] Infusion [address] [address] Aaron Cheng MD [address] [place] [address] 02/24/2025 11:00 AM EST Infusion [facility] Infusion [address] [address] Aaron Cheng MD [address] [place] [address] documented as of this encounter Visit Diagnoses Diagnosis Selective deficiency of IgG subclasses- Primary documented in this encounter Administered Medications Inactive Administered Medications - up to 3 most recent administrations Medication Order MAR Action Action Date Dose Rate Site diphenhydrAMINE (BENADRYL) injection 25 mg 25 mg, Intravenous, As needed, itching, hives or adjunct treatment for mild-moderate, or SEVERE reaction, Starting on Sun10/17/24 at 1056, For 2 doses, Begin with 25 mg. If patient has continued reaction, administer additional 25 mg.Indications:Selective deficiency of IgG subclasses Given 10/17/2024 11:31 AM EDT 25 mg immune globulin (human) (GAMMAGARD) IV injection 30 g 30 g, Intravenous, Once, On Sun10/17/24 at 1215, For 1 dose, DAY 1 (or single day) Gammagard Infusion rates and titration are based on patient s Actual Body Weight.Indications:Selective deficiency of IgG subclasses New Bag 10/17/2024 11:37 AM EDT 30 g documented in this encounter Care Teams Flat Surfacer Jewel Relationship Specialty Start Date End Date Jenny Pugh MD [address] [place] [address] [email or web address] PCP - General Family Medicine 08/22/24 Tamiko Manrique PA-C [address] [place], [place] [phone] [email or web address] Physician Supervisor Assembly Department 11/14/23 documented as of this encounter Additional Source Comments The information contained in this document represents components of the legal health record. It is not the complete legal health record.[facility]
--- NOTE | 2024-10-21 12:20 | A.OFFVIS_ITS ---
Vital Signs 10/21/24 12:21 Height 5 ft 1 in Weight 182 lb 12.211 oz BMI 34.5 BP 100/70 Blood Pressure Location Lt brachial Position Sitting Pulse 77 Pulse Source Pulse Oximeter Pulse Oximetry (%) 98 Oxygen Delivery Method Room Air Intake Visit Reasons: PsA Intake Note: Patient presents for PsA. Accompanied by: Self / Same As Patient Allergies cephalexin Allergy (Intermediate, Verified 09/03/24 12:12) Diarrhea Iodinated Contrast Media (IV CONTRAST) Allergy (Intermediate, Verified 09/03/24 12:12) DIFF BREATHING morphine (MORPHINE) Allergy (Intermediate, Verified 09/03/24 12:12) HIVES nabumetone (NABUMETONE) Allergy (Intermediate, Verified 09/03/24 12:12) HIVES sulfamethoxazole (From BACTRIM) Allergy (Intermediate, Verified 09/03/24 12:12) HIVES trimethoprim (From BACTRIM) Allergy (Intermediate, Verified 09/03/24 12:12) HIVES dicloxacillin Allergy (Unknown, Verified 09/03/24 12:12) Rash dyclonine Allergy (Unknown, Verified 09/03/24 12:12) Unknown propranolol (Inderal LA) Allergy (Unknown, Verified 09/03/24 12:12) unknown quetiapine (Seroquel) Allergy (Unknown, Verified 09/03/24 12:12) rash seafood Allergy (Unknown, Verified 09/03/24 12:12) Unknown Sulfa (Sulfonamide Antibiotics) Allergy (Unknown, Verified 09/03/24 12:12) hives amoxicillin (From Augmentin) Allergy (Verified 09/03/24 12:12) stomach pain clavulanic acid (From Augmentin) Allergy (Verified 09/03/24 12:12) stomach pain polyethylene glycol (From Golytely) Adverse Reaction (Severe, Verified 09/03/24 12:12) Hallucinations polyethylene glycol 3350 (From Golytely) Adverse Reaction (Severe, Verified 09/03/24 12:12) Hallucinations potassium chloride (From Golytely) Adverse Reaction (Severe, Verified 09/03/24 12:12) Hallucinations sodium (From Golytely) Adverse Reaction (Severe, Verified 09/03/24 12:12) Hallucinations sodium bicarbonate (From Golytely) Adverse Reaction (Severe, Verified 09/03/24 12:12) Hallucinations sodium chloride (From Golytely) Adverse Reaction (Severe, Verified 09/03/24 12:12) Hallucinations sodium sulfate (From Golytely) Adverse Reaction (Severe, Verified 09/03/24 12:12) Hallucinations doxycycline (DOXYCYCLINE) Adverse Reaction (Intermediate, Verified 09/03/24 12:12) NAUSEA & VOMITTING From INDERAL Allergy (Intermediate, Uncoded 09/03/24 12:12) RASH Codeine Sulfate Allergy (Unknown, Uncoded 09/03/24 12:12) Unknown Medication List - Last Reconciled 10/21/24 by Markell Leonard MD albuterol sulfate 90 mcg/actuation (Ventolin HFA) 2 puffs inhalation Q4H PRN aripiprazole 10 mg PO DAILY ascorbic acid (vitamin C) (Vitamin C) 500 mg PO DAILY carbamazepine ER (Tegretol XR) 400 mg PO BID cholecalciferol (vitamin D3) PO diclofenac sodium 1% 1 g topical QID PRN dicyclomine 10 mg PO Q6H PRN docusate sodium 100 mg PO BID estradiol 1 mg PO DAILY fexofenadine 180 mg PO BID fluticasone propion-salmeterol 500-50 mcg/dose 1 ea inhalation BID folic acid 1 mg PO DAILY gabapentin 800 mg PO TID lactase (Dairy-Aid) 3,000 - 60,000 units (1 - 20 x 3,000 unit) PO TID PRN lidocaine 5% 1 patch topical DAILY lisinopril 20 mg PO DAILY lorazepam 1 mg PO DAILY PRN meclizine 25 mg PO QID melatonin 9 mg PO BEDTIME metformin 500 mg PO BID methotrexate sodium 15 mg (6 x 2.5 mg) PO QWEEK montelukast (Singulair) 10 mg PO BEDTIME multivitamin 1 tab PO DAILY omalizumab (Xolair) mg subcut Q2W omalizumab (Xolair) 300 mg subcut Q2W ondansetron 4 mg PO Q8H PRN pantoprazole 40 mg PO BID prazosin 4 mg PO BEDTIME risperidone (Risperdal) 3 mg PO BID risperidone 4 mg PO BEDTIME sertraline 50 mg PO DAILY sertraline 25 mg PO DAILY sumatriptan succinate 100 mg PO DAILY PRN Taltz Autoinjector (ixekizumab) 80 mg subcut Q4W NS topiramate 150 mg PO BID topiramate 50 mg PO BID trazodone mg PO umeclidinium 62.5 mcg/actuation (Incruse Ellipta) 1 inh inhalation DAILY valacyclovir 500 mg PO BID 7 days vitamin B complex (Vitamins B Complex capsule) 1 cap PO DAILY [wrist splint Wear nightly and as much as possible throughout the day] HPI HPI PsA: Details: She is not taking Talz. She discontinued it after hospitalization dx with PNA and COVID-19 02/2024. She started Gammagard IVIG every 3 weeks for IgG deficiency prescribed by Dr. Cheng in February. Continues to take MTX. MS 30 minutes Right hand is swollen. R knee is swollen. She had an MRI R knee to evaluate for meniscal injury. She has history of psoriasis under breast folds and arms. PCP started meloxicam 1 month ago, which benefit. She wakes up at 01:00 with pain and stiffness. Meloxicam is not lasting all day. PFSH Medical History RLQ abdominal pain Spinal stenosis TMJ (dislocation of temporomandibular joint) Migraine COPD (chronic obstructive pulmonary disease) Asthma Depression Anxiety Prediabetes Arthritis of right knee Umbilical hernia Chronic idiopathic constipation Surgical History History of shoulder surgery (~01/2024) History of carpal tunnel release Hx of colonoscopy History of esophagogastroduodenoscopy (EGD) Hx of hand surgery H/O eye surgery Hx of hysterectomy Family History Father Bone cancer Mother Diabetes Family/Other Family history of breast cancer Social History Household Members: None Housing: Apartment Are you a primary manager intensive care to a significant other at home: No Do you presently have visiting nurse or other home services: No Alcohol intake: current Alcohol intake frequency: does not drink Patient Tobacco Use Status: Former Tobacco user service: No Physical Exam Vital Signs: Last Vital Signs Pulse 77 10/21/24 12:21 BP 100/70 10/21/24 12:21 Pulse Ox 98 10/21/24 12:21 Oxygen Delivery Method Room Air 10/21/24 12:21 BMI result Body Mass Index 34.5 Const Other: General: Comfortable CVS: RRR Respiratory: clear to auscultation bilaterally. Good respiratory effort Skin: No lesions seen MSK: Tender to palpate right 2nd to 5th MCP. Tender right DIPJ, wrists, shoulders, right knee. [place] nodes present. Limited abduction above 120 degrees of bilateral shoulders. She has good internal external rotation of bilateral shoulders. Right knee flexion 90 degrees, left 100 degrees. No MTP tenderness. Assessment & Plan Assessment & Plan (1) Psoriatic arthritis: Comment: Inflammatory arthritis is not controlled off of Taltz. Methotrexate dose was decreased from 20 mg once weekly to 15 mg once weekly due to mild elevation in AST. I will repeat labs this visit. If LFTs are normal, I will increase dose to 17.5 mg once weekly. I will then have her repeat labs in 1 month. If she continues to have normal LFTs, I will increase methotrexate back to 20 mg once weekly, where she felt psoriatic arthritis was better managed. Rheumatology history: dx 03/06. Right thumb dactylitis 06/04. MTX started 07/04 effective. Humira added 11/04 DC 12/04 due to pneumonia admission. Taltz 02/2023 effective discontinued due to admission diagnosed with pneumonia and COVID-02 March 2024. She is on IVIG Gammagard since February 2024 for IgG deficiency prescribe arch cushion press operator Dr. Palomo. Code(s): L40.50 - Arthropathic psoriasis, unspecified Category: Medical Plan: Labs for drug monitoring on high-risk medication ordered. After lab results are back, I will optimize methotrexate dose as above. Continue methotrexate 15 mg once weekly Continue folic acid 1 mg daily Change meloxicam to Celebrex 200 mg twice a day Return to clinic in 3 months Orders: Orders Complete Blood Count Auto Diff Today Z79.899 - Other long term care pharmacist (current) drug therapy C Reactive Protein Today Z79.899 - Other penitentiary (current) drug therapy Erythrocyte Sedimentation Rate Today Z79.899 - Other penitentiary (current) drug therapy XR Shoulder Pablo min 2V Today L40.50 - Arthropathic psoriasis, unspecified Alanine Aminotransferase Today Z79.899 - Other penitentiary (current) drug therapy Aspartate Amino Transferase Today Z79.899 - Other penitentiary (current) drug therapy Creatinine Today Z79.899 - Other penitentiary (current) drug therapy XR Foot Pablo 3V Today L40.50 - Arthropathic psoriasis, unspecified XR Hand Bilat min 3v Today L40.50 - Arthropathic psoriasis, unspecified Medications: New meloxicam 15 mg PO DAILY celecoxib Take with food. Replace meloxicam 200 mg PO BID 60 caps 2RF Coding Level of Care Code Est Pt Level 4 (18746) Complex EM visit Add On G2211 Diagnoses Psoriatic arthritis L40.50
[2024-10-21 12:21] VITALS: BP 100/70; PULSE 77; O2SAT 98; BMI 34.5
--- OUTSIDE RECORDS SUMMARY | 2024-10-21 14:42 | XMS_ITS | Encounter Summary ---
Author Organization [facility] Address [address] [place] [address] [place] [address] Phone Care Team Providers Care Dispensing Lead Name Role Phone Amisha Frost Primary Care Provider Amilcar Hadley MD Primary Care Provider [phone] Arabella Cerda NP Primary Care Provider Clare Wilson MD Primary Care Provider + Tamiko Manrique-C Unavailable [phone] Clare Wilson MD Primary Care Provider + Jenny Pugh MD Primary Care Provider Encounter Details Date Type Department Care Team (Late st Contact Info) Description 08/03/2019 Procedure Pass [facility], Ct Scan - [address] [address] Social History Tobacco Use Types Packs/Day Years [...] Info) Description 11/07/2024 11:00 AM EDT Infusion [facility] Medical Infusion Center [address] [place] [address] Aaron Cheng MD [address] [place] [address] 12/01/2024 11:00 AM EDT Infusion [facility] Infusion [address] [address] Aaron Cheng MD [address] [place] [address] 12/22/2024 11:00 AM EST Infusion [facility] Infusion [address] [address] Aaron Cheng MD [address] [place] [address] 01/13/2025 11:00 AM EST Infusion [facility] Medical Infusion [address] [address] Aaron Cheng MD [address] [place] [address] 02/03/2025 11:00 AM EST Infusion [facility] Infusion [address] [address] Aaron Cheng MD [address] [place] [address] 02/24/2025 11:00 AM EST Infusion [facility] Infusion [address] [address] Aaron Cheng MD [address] [place] [address] documented as of this encounter Visit Diagnoses [...] documented as of this encounter Care Teams Dispensing Lead Relationship Specialty Start Date End Date Amisha Frost PA [address] [place] [phone] [email or web address] PCP - General 12/08/18 09/26/19 Amilcar Hadley MD [address] [facility] [address] [address] [email or web address] PCP - General 09/27/19 03/01/20 Arabella Cerda NP [address] [place] [address] PCP - General Family Medicine 08/17/21 09/15/23 Clare Wilson MD [address] [place] [address] [email or web address] PCP - General Family Medicine 09/16/23 12/05/23 Clare Wilson MD [address] [place] [address] [email or web address] PCP - General Family Medicine 12/06/23 03/11/24 Jenny Pugh MD [address] [place] [address] [email or web address] PCP - General Family Medicine 08/22/24 Tamiko Manrique PA-C [address] [place] [address] [email or web address] Physician Entertainment Usher 11/14/23 documented as of this encounter Additional Source Comments The information contained in this document represents components of the legal health record. It is not the complete legal health record.[facility]
--- OUTSIDE RECORDS SUMMARY | 2024-10-21 14:42 | XMS_ITS | Encounter Summary ---
Author Organization [facility] Address [address] [place] [address] [place] [address] Phone Care Team Providers Care Drafter Chief Design Name Role Phone Arabella Cerda NP Primary Care Provider [phone] Clare Wilson MD Primary Care Provider + Tamiko Manrique PA-C Unavailable [phone] Clare Wilson MD Primary Care Provider + Jenny Pugh MD Primary Care Provider Encounter Details Date Type Department Care Team (Late st Contact Info) Description 03/30/2022 Procedure Pass [facility], Ct Scan - [facility] [address] [place], [place] [id number] Social History Tobacco Use Types Packs/Day Years Used Date Smoking Tobacco: Former Cigarettes Q uit: 2011 Smokeless Tobacco: Never Comments:Sister Pilra is jayme rgency contact Alcohol Use Standard Drinks/Week Comments No 0 (1 standard drink = 0.6 oz pur e alcohol) Comments No Sex and Gender Information Value Date Recorded Sex Assigned at Female 02/19/2017 9:43 AM EST Legal Sex Female 5:56 PM EST Gender Identity Female 11/10/2022 1:55 PM EDT Sexual Orientation Straight 02/09/2018 1: 15 PM EST documented as of this encounter Functional Status * Calculated C-SSRS Risk Score (Lifetime/Recent) Answer Date of Assessment Author No Risk Indicated 03/30/2022 6:01 PM EST Saima Ramirez RN * [place] Suicide Severity Rating Scale (Screener/Recent Self-Report) Question Answer Date of Assessment Author 1. Wish to be (Past 1 Month) No 03/30/2022 6:01 PM Saima Luz RN 2. Non-Specific Active Suici faith Thoughts (Past 1 Month) No 03/30/2022 6:01 PM Laz Luz RN 6. Suicidal Behavior (Lifetime) No 6:01 PM Saima Luz RN documented as of this encounter Plan of Treatment Upcoming Encounters Date Type Department Care Team (Late st Contact Info) Description 11/07/2024 11:00 AM EDT Infusion [facility] [address] [address] Aaron Cheng MD [address] [place] [address] 12/01/2024 11:00 AM EDT Infusion [facility] [address] [address] Aaron Cheng MD [address] [place] [address] 12/22/2024 11:00 AM EST Infusion [facility] [address] [address] Aaron Cheng MD [address] [place] [address] 01/13/2025 11:00 AM EST Infusion [facility] Medical Infusion [address] [address] Aaron Cheng MD [address] [place] [address] 02/03/2025 11:00 AM EST Infusion [facility] [address] [address] Aaron Cheng MD [address] [place] [address] 02/24/2025 11:00 AM EST Infusion [facility] [address] [place] [address] Aaron Cheng MD [address] [place] [address] documented as of this encounter Visit Diagnoses Not on filedocumented in this encounter Additional Health Concerns Infection Onset Date Last Indicated Resolved Time CoV-Risk 09/24/2022 09/24/2022 10/05/2022 1:21 AM EDT [...] documented as of this encounter Care Teams Drafter Chief Design Relationship Specialty Start Date End Date Arabella Cerda NP [address] [place] [address] PCP - General Family Medicine 08/17/21 09/15/23 Clare Wilson MD [address] [place] [address] [email or web address] PCP - General Family Medicine 09/16/23 12/05/23 Clare Wilson MD [address] [place] [address] [email or web address] PCP - General Family Medicine 12/06/23 03/11/24 Jenny Pugh MD [address] [address] [email or web address] PCP - General Family Medicine 08/22/24 Tamiko Manrique PA-C [address] [place] [address] [email or web address] Physician Armored Vehicle Officer 11/14/23 documented as of this encounter Additional Source Comments The information contained in this document represents components of the legal health record. It is not the complete legal health record.[facility]
--- OUTSIDE RECORDS SUMMARY | 2024-10-21 14:42 | XMS_ITS | Encounter Summary ---
Author Organization [facility] Address [address] [place] [address] Encounters * CPT with Medical instED at [employer] on 2024-09-28 { reasonForRequest : vertigo , patientReports : Dizziness with positional change; Sensitive to light , denies :[ Worst Headache of life ,"New onset of vision loss , Sudden onset -unilateral weakness/gait disturbance ,"Fall with head strike and altered LOC , New onset of Slurred speech or difficulty finding words , Sudden Mental status changes , Head pain with fever chills and neckpain , Seizure activity , Head pain not relieved by medication greater than 8 hours , Head pain greater than 8 hours -unrelated to falls or injury , Head pain with nausea vomiting ], chiefComplaints : Dizziness , pmh : COPD/Asthma, Severe Persistent Mental Illness (SPMI), Hypertension, Anxiety Disorder, Rheumatoid Arthritis, Pneumonia , allergies : Aspirin, Doxycycline, Morphine, Bactrim, Penicillins, Augmentin , otherAllergies :null, painAssessment : , v isitOutcome : , additionalComments : 64 y.o female complains of Dizziness - x 1 day\n\nPt reports feeling unwell with dizziness - Reports having a history of vertigo with nausea/vomiting \n\nReports taking meclizine - 1 hour ago\n\nDenies chest pain - Denies shortnessof breath - Denies headache \n\nWellness check requested \n\n\nI provided information on the mobilehealth provider response time and advised the patient and/or caregiver to monitor reported signs and symptoms. I discussed the warning signs of when to seek emergency care. } KANIKA responds to the listed address for a 64 yof w/ a c/c of dizziness. Upon arrival, pt is found laying R lateral recumbent on her sofa. She opens her eyes on approach and makes eye contact w/ MIH. Her skin in w/p/d, she is not in acute distress, and she is not bleedinganywhere. When asked what is going on, pt simply states, Vertigo! Pt has a known hx of vertigo and says she woke up w/ it this morning. She denies any recent illnesses, cp, sob, diarrhea,urinary symptoms, MARTINEZ, or vision changes. She took one of her prescribed meclizine about an hour PTAand has had two bouts of emesis consisting of bile. She continues to feel nauseated and would like some relief. [facility] obtains vital signs and pt is assessed. HEENT is unremarkable, no nystagmus, clear sclera, and extraocular movements are intact. Abdomen is soft and nontender in all quadrants. Lung sounds are expiratory wheezes, pt has taken her prescribed inhalers today. No peripheral edema is noted. [facility] contacts [facility] and discusses the above. [facility] orders 4mg Zofran ODT for pt and sends prescription for the same to pt's pharmacy. [facility] administers 4mg x1 tablet Zofran ODT to pt and advises her to seek emergency care if she develops worsening symptoms, sudden MARTINEZ, severe n/v/d, fever, visual disturbances, or sudden onset speech problems, or loss of control of one side of her body. Pt nods in agreement. [facility] is clear. Report completed by ROULA Wilson [id number]. IV_(FLUIDS_AND/OR_MEDICATION), POC_BLOODWORK, ORTHOSTATIC_VITAL_SIGNS, PO_MEDICATION Written by Medical instED on 2024-09-28
--- OUTSIDE RECORDS SUMMARY | 2024-10-21 14:42 | XMS_ITS | Encounter Summary ---
Author Organization [facility] Address [address] [place] [address] Phone Care Team Providers Care Microphone Boom Operator Name Role Phone Tamiko Manrique PA-C Unavailable [phone] Leandro Pugh MD Primary Care Provider [phone] Encounter Details Date Type Department Care Team (Late st Contact Info) Description 05/30/2024 Procedure Pass [facility], Ct Scan - [facility] [address] [place] [address] Social History Tobacco Use Types Packs/Day Years [...] got money to buy more. Never True 05/30/2024 Within the past 6 months the food we bought just didn't last and we didn't have enough money to get more. Never True Residential Stability Answer Date Recor ded What is your housing situation today? I have vero sing 05/30/2024 How many times have you move d in the past 12 months? Zero (I did not move) 05/30/2024 Paying for Meds Answer Date Recorded Do you have trouble paying for medicines? No 05/30/2024 Paying Utility Bills Answer Date Record ed Do you have trouble paying your heating or elect ricity bill? No 05/30/2024 Transportation Answer Date Recorded Has the lack of transportati on kept you from medical appointments or from getting medications? No 05/30/2024 Digital Access Answer Date Recorded No 05/30/2024 Yes 05/30/2024 Do you have reliable internet access at home? Ye s 05/30/2024 Do you have a device (e.g., phone, tablet, computer) with a working camera? Yes 05/30/2024 Intimate Partner Violence Answer Date R ecorded Are you denied basic needs s uch as food, clothing, or medical care? No 05/30/2024 In the past 12 months have y ou been in a relationship with a person who hurts, threatens, or tries to control you? No 05/30/2024 Are you denied basic needs s uch as food, clothing, or medical care? No 05/30/2024 In the past 12 months have y ou been in a relationship with a person who hurts, threatens, or tries to control you? No 05/30/2024 Comments No Sex and Gender Information Value Date Recorded Sex Assigned at Female 02/19/2017 9:43 AM EST Legal Sex Female 5:56 PM EST Gender Identity Female 11/10/2022 1:55 PM EDT Sexual Orientation Straight 02/09/2018 1: 15 PM EST documented as of this encounter Functional Status * Calculated C-SSRS Risk Score (Lifetime/Recent) Answer Date of Assessment Author No Risk Indicated 05/30/2024 1:26 AM EDT Rosa Elena Graves RN * [place] Suicide Severity Rating Scale (Screener/Recent Self-Report) Question Answer Date of Assessment Author 1. Wish to be (Past 1 Month) No 025 1:26 AM KAYLAT Rosa Elena Noonan RN 2. Non-Specific Active Suici faith Thoughts (Past 1 Month) No 05/30/2024 1:26 AM KAYLAT Elroy Noonan ra RN 6. Suicidal Behavior (Lifetime) No 1:26 AM KAYLAT Rosa Elena Noonan, RN documented as of this encounter Plan of Treatment Upcoming Encounters Date Type Department Care Team (Late st Contact Info) Description 11/07/2024 11:00 AM EDT Infusion [facility] Infusion [facility] [address] [place] [address] Aaron Cheng MD [address] [place] [address] 12/01/2024 11:00 AM EDT Infusion [facility] Medical Infusion [address] [address] Aaron Cheng MD [address] [place] [address] 12/22/2024 11:00 AM EST Infusion [facility] Medical Infusion [address] [address] Aaron Cheng MD [address] [place] [address] 01/13/2025 11:00 AM EST Infusion [facility] Medical Infusion [address] [address] Aaron Cheng MD [address] [place] [address] 02/03/2025 11:00 AM EST Infusion [facility] Infusion [address] [address] Aaron Cheng MD [address] [place] [address] 02/24/2025 11:00 AM EST Infusion [facility] Medical Infusion [address] [address] Aaron Cheng MD [address] [place] [address] documented as of this encounter Visit Diagnoses Not on filedocumented in this encounter Care Teams Microphone Boom Operator Relationship Specialty Start Date End Date [facility] Pugh [facility] [place] [address] [email or web address] PCP - General Family Medicine 08/22/24 Tamiko Manrique PA-C [address] [place] [address] [email or web address] Physician Vegetable Specker 11/14/23 documented as of this encounter Additional Source Comments The information contained in this document represents components of the legal health record. It is not the complete legal health record.[facility]
--- OUTSIDE RECORDS SUMMARY | 2024-10-21 14:43 | XMS_ITS | Encounter Summary ---
Author Organization [facility] Address [address] [facility] [address] [place] [address] Phone Care Team Providers Care Insole Buffer Name Role Phone Arabella Cerda NP Primary Care Provider [phone] Clare Wilson MD Primary Care Provider + Tamiko Manrique PA-C Unavailable [phone] Clare Wilson MD Primary Care Provider + Jenny Pugh MD Primary Care Provider [phone] Encounter Details Date Type Department Care Team (Late st Contact Info) Description 06/14/2022 Procedure Pass [facility], Ct Scan - [address] [id number] Social History Tobacco Use Types Packs/Day Years Used Date Smoking Tobacco: Former Cigarettes Q uit: 2011 Smokeless Tobacco: Never Comments:Sister Pilar is jayme rgency contact Alcohol Use Standard Drinks/Week Comments No 0 (1 standard drink = 0.6 oz pur e alcohol) Education Answer Date Recorded Are you interested in more education? Not on ramesh e 06/14/2022 Are you concerned about learning? Not on file 06/14/2022 No 06/14/2022 No 06/14/2022 Comments No Sex and Gender Information Value Date Recorded Sex Assigned at Female 02/19/2017 9:43 AM EST Legal Sex Female 5:56 PM EST Gender Identity Female 11/10/2022 1:55 PM EDT Sexual Orientation Straight 02/09/2018 1: 15 PM EST documented as of this encounter Functional Status * Calculated C-SSRS Risk Score (Lifetime/Recent) Answer Date of Assessment Author Moderate Risk 06/14/2022 2:57 PM EDT Dolores Javier RN * [place] Suicide Severity Rating Scale (Screener/Recent Self-Report) Question Answer Date of Assessment Author 1. Wish to be (Past 1 Month) No 023 2:57 PM EDT Dolores Javier, CAROL ANN 2. Non-Specific Active Suici faith Thoughts (Past 1 Month) No 06/14/2022 2:57 PM EDT Jan Javier, CAROL ANN 6. Suicidal Behavior (Lifetime) Yes 3 2:57 PM EDT Dolores Javier RN 6. Suicidal Behavior (3 Months) No 3 2:57 PM EDT Dolores Javier, CAROL ANN documented as of this encounter Plan of Treatment Upcoming Encounters Date Type Department Care Team (Late st Contact Info) Description 11/07/2024 11:00 AM EDT Infusion [facility] Medical Infusion [address] [address] Aaron Cheng MD [address] [place] [address] 12/01/2024 11:00 AM EDT Infusion [facility] Infusion [address] [address] Aaron Cheng MD [address] [place] [address] 12/22/2024 11:00 AM EST Infusion [facility] Medical Infusion [address] [address] Aaron Cheng MD [address] [place] [address] 01/13/2025 11:00 AM EST Infusion [facility] Infusion [address] [address] Aaron Cheng MD [address] [place] [address] 02/03/2025 11:00 AM EST Infusion [facility] Medical Infusion Center 30 [place] [address] Aaron Cheng MD [address] [place] [address] 02/24/2025 11:00 AM EST Infusion [facility] Infusion Center 30 [place] [address] Aaron Cheng MD [address] [place] [address] documented as of this encounter Visit Diagnoses [...] documented as of this encounter Care Teams Insole Buffer Relationship Specialty Start Date End Date Arabella Cerda NP [address] [place] [address] PCP - General Family Medicine 08/17/21 09/15/23 Clare Wilson MD [address] [place] [address] [email or web address] PCP - General Family Medicine 09/16/23 12/05/23 Clare Wilson MD [address] [place] [address] [email or web address] PCP - General Family Medicine 12/06/23 03/11/24 Jenny Pugh MD [address] [address] [email or web address] PCP - General Family Medicine 08/22/24 Tamiko Manrique PA-C 30 [place] [address] [email or web address] Physician Cardroom Attendant 11/14/23 documented as of this encounter Additional Source Comments The information contained in this document represents components of the legal health record. It is not the complete legal health record.[facility]
--- OUTSIDE RECORDS SUMMARY | 2024-10-21 14:43 | XMS_ITS | Encounter Summary ---
Author Organization [facility] Address [address] [facility] [address] [place] [address] Phone Care Team Providers Care Stenotypist Name Role Phone Arabella Cerda NP Primary Care Provider [phone] Clare Wilson MD Primary Care Provider + Tamiko Manrique PA-C Unavailable [phone] Clare Wilson MD Primary Care Provider + Jenny Pugh MD Primary Care Provider Encounter Details Date Type Department Care Team (Late st Contact Info) Description 07/20/2022 Procedure Pass [facility], Ct Scan - [facility] [address] [place], [place] [id number] Social History Tobacco Use Types Packs/Day Years [...] on file 06/14/2022 No 06/14/2022 No 06/14/2022 Digital Access Answer Date Recorded No 07/06/2022 No 07/06/2022 Reliable internet access at home? Not on file 07/06/2022 Device with a working camera? Not on file Comments No Sex and Gender Information Value Date Recorded Sex Assigned at Female 02/19/2017 9:43 AM EST Legal Sex Female 5:56 PM EST Gender Identity Female 11/10/2022 1:55 PM EDT Sexual Orientation Straight 02/09/2018 1: 15 PM EST documented as of this encounter Plan of Treatment Upcoming Encounters Date Type Department Care Team (Late st Contact Info) Description 11/07/2024 11:00 AM EDT Infusion [facility] Infusion [address] [address] Aaron Cheng MD [address] [place] [address] 12/01/2024 11:00 AM EDT Infusion [facility] Infusion [address] [address] Aaron Cheng MD [address] [place] [address] 12/22/2024 11:00 AM EST Infusion [facility] Infusion [address] [address] Aaron Cheng MD [address] [place] [address] 01/13/2025 11:00 AM EST Infusion [facility] Infusion [address] [address] Aaron Cheng MD [address] [place] [address] 02/03/2025 11:00 AM EST Infusion [facility] Medical Infusion [address] [address] Aaron Cheng MD [address] [place] [address] 02/24/2025 11:00 AM EST Infusion [facility] Infusion [address] [address] Aaron Cheng MD [address] [place] [address] documented as of this encounter Visit Diagnoses [...] documented as of this encounter Care Teams Stenotypist Relationship Specialty Start Date End Date Arabella Cerda NP [address] [place] [address] PCP - General Family Medicine 08/17/21 09/15/23 Clare Wilson MD [address] [place] [address] [email or web address] PCP - General Family Medicine 09/16/23 12/05/23 Clare Wilson MD [address] [place] [address] [email or web address] PCP - General Family Medicine 12/06/23 03/11/24 [facility] [place] [address] [email or web address] PCP - General Family Medicine 08/22/24 Tamiko Manrique PA-C [address] [place] [address] [email or web address] Physician Sheet Rock Taper 11/14/23 documented as of this encounter Additional Source Comments The information contained in this document represents components of the legal health record. It is not the complete legal health record.[facility]
--- OUTSIDE RECORDS SUMMARY | 2024-10-21 14:43 | XMS_ITS | Encounter Summary ---
Author Organization [facility] Address [address] [place] [address] [place] [address] Phone Care Team Providers Care Wastewater Treatment Supervisor Name Role Phone Arabella Cerda NP Primary Care Provider [phone] Clare Wilson MD Primary Care Provider + Tamiko Manrique PA-C Unavailable [phone] Clare Wilson MD Primary Care Provider + Jenny Pugh MD Primary Care Provider Encounter Details Date Type Department Care Team (Late st Contact Info) Description 10/12/2020 Procedure Pass [facility] Admitting Dept - Virtual Department [address] [place] [address] Social History Tobacco Use Types Packs/Day Years Used Date Smoking Tobacco: Former Cigarettes Q uit: 2011 Smokeless Tobacco: Never Alcohol Use Standard Drinks/Week [...] Department Care Team (Late Contact Info) Description 11/07/2024 11:00 AM EDT Infusion [facility] Medical Infusion Center 30 [place] [address] Aaron Cheng MD [address] [place] [address] 12/01/2024 11:00 AM EDT Infusion [facility] Infusion [address] [address] Aaron Cheng MD [address] [place] [address] 12/22/2024 11:00 AM EST Infusion [facility] Infusion [address] [address] Aaron Cheng MD [address] [place] [address] 01/13/2025 11:00 AM EST Infusion [facility] Infusion [address] [address] Aaron Cheng MD [address] [place] [address] 02/03/2025 11:00 AM EST Infusion [facility] Infusion [address] [address] Aaron Cheng MD [address] [place] [address] 02/24/2025 11:00 AM EST Infusion [facility] Infusion [address] [address] Aaron Cheng MD [address] [place] [address] documented as of this encounter Visit Diagnoses Not on filedocumented in this encounter Additional Health Concerns Infection Onset Date Last Indicated Resolved Time MRSA Comment:Infection Loaded by the Load Infection Utility 06/28/2016 06/28/2016 03/29/2022 1:[address] COVID-19 11/25/2020 11/25/2020 12/16/2020 1:24 AM EDT [...] documented as of this encounter Care Teams Wastewater Treatment Supervisor Relationship Specialty Start Date End Date Arabella Cerda NP [address] [place] [address] PCP - General Family Medicine 08/17/21 09/15/23 Clare Wilson MD [address] [place] [address] [email or web address] PCP - General Family Medicine 09/16/23 12/05/23 Clare Wilson MD [address] [place] [address] [email or web address] PCP - General Family Medicine 12/06/23 03/11/24 Jenny Pugh MD [address] [place] [address] [email or web address] PCP - General Family Medicine 08/22/24 Tamiko Manrique PA-C [address] [place] [address] [email or web address] Physician Flexographic Press Set Up Operator 11/14/23 documented as of this encounter Additional Source Comments The information contained in this document represents components of the legal health record. It is not the complete legal health record.[facility]
--- OUTSIDE RECORDS SUMMARY | 2024-10-21 14:43 | XMS_ITS | Encounter Summary ---
Author Organization [facility] Address [address] [facility] [address] [place] [address] Phone Care Team Providers Care Repeat Photocomposing Machine Operator Name Role Phone Arabella Cerda NP Primary Care Provider [phone] Clare Wilson MD Primary Care Provider + Tamiko Manrique PA-C Unavailable [phone] Clare Wilson MD Primary Care Provider + Jenny Pugh MD Primary Care Provider [phone] Reason for Referral * MRI/CAT Scan - Closed Specialty Diagnoses / Procedures Referred By Gerardo ag Referred To Contact Radiology Diagnoses Abnormal findings on diagnostic imaging of other specified body structures Procedures CT Chest CHG DIAGNOSTIC COMPUTED TOMOGRAPHY THORAX W/O CNTRST Arabella Cerda NP Phone: tel: Referral ID Status Reason Start Date Expiration Date Visits Re quested Visits Authorized [id number] Closed 12/18/2022 04/24/2023 1 1 Encounter Details Date Type Department Care Team (Latest Contact Info) Description 12/18/2022 Transcribe Orders Virtual Department [address] [place] [address] Arabella Cerda NP [address] [place], [place] [phone] Abnormal findings on diagnostic imaging of other specified body structures (Primary Dx) Social History Tobacco Use Types Packs/Day Years Used Date Smoking Tobacco: Former Cigarettes Q uit: 2012 Smokeless Tobacco: Never Comments:Sister Pilar is jayme [...] Info) Description 11/07/2024 11:00 AM EDT Infusion [facility] Infusion [address] [address] Aaron Cheng MD [address] [place] [address] 12/01/2024 11:00 AM EDT Infusion [facility] Infusion [address] [address] Aaron Cheng MD [address] [place] [address] 12/22/2024 11:00 AM EST Infusion [facility] Infusion [address] [address] Aaron Cheng MD [address] [place] [address] 01/13/2025 11:00 AM EST Infusion [facility] Infusion [address] [address] Aaron Cheng MD [address] [place] [address] 02/03/2025 11:00 AM EST Infusion [facility] Medical Infusion Center [address] [place] [address] Aaron Cheng MD [address] [place] [address] 02/24/2025 11:00 AM EST Infusion [facility] Medical Infusion Center [address] [place] [address] Aaron Cheng MD [address] [place] [address] documented as of this encounter Results * CT CHEST WITHOUT CONTRAST (04/24/2023 11:29 AM EDT) Anatomical Region Laterality Modality Chest Computed Tomogra phy 04/25/2023 4:52 PM EDT Impressions 04/25/2023 7:27 PM EDT 1. Diffuse bronchial wall thickening with scarring or atelectasis in the RIGHT middle lobe and lingula may be from acute and chronic aspiration changes, no evidence of significant pulmonary nodule mass or pneumonia. Narrative 04/25/2023 7:[address] CHEST WITHOUT CONTRAST Referring clinician's provided indication for this examination in Epic: Outside Radiology Order; ABNORMAL CT TECHNIQUE: Multidetector CT of the chest was performed without intravenous contrast using tailored dose modulation. COMPARISON: None, there are prior abdominal CT scans. FINDINGS: Devices/Tubes/Lines: None. Lungs: There is diffuse bronchial wall thickening upper lobe predominant. There is peripheral reticulation anterior medially within the lingula and RIGHT middle lobe, which may be from recurrent infection or aspiration, atypical. No evidence of consolidative pneumonia or edema Pleura: No evidence of pleural effusion or pneumothorax Mediastinum: The heart and pericardium are stable there is severe coronary artery calcification. No evidence of pericardial effusion Lymph Nodes: No enlarged supraclavicular, axillary, mediastinal, or hilar lymph nodes. Upper Abdomen: No interval change detected in the visualized upper abdomen. Absence of intravenous contrast limits sensitivity for detecting solid organ findings. Chest Wall: No chest wall mass. Bones: No suspicious lytic or blastic lesions. Procedure Note Neha Mauro MD - 04/25/2023 CT CHEST WITHOUT CONTRAST Referring clinician's provided indication for this examination in [facility]:Outside Radiology Order; ABNORMAL CT TECHNIQUE: Multidetector CT of the chest was performed without intravenouscontrast using tailored dose modulation. COMPARISON: None, there are prior abdominal CT scans. FINDINGS: Devices/Tubes/Lines: None. Lungs: There is diffuse bronchial wall thickening upper lobe predominant.There is peripheral reticulation anterior medially within the lingula andRIGHT middle lobe, which may be from recurrent infection or aspiration,atypical. No evidence of consolidative pneumonia or edema Pleura: No evidence of pleural effusion or pneumothorax Mediastinum: The heart and pericardium are stable there is severe coronaryartery calcification. No evidence of pericardial effusion Lymph Nodes: No enlarged supraclavicular, axillary, mediastinal, or hilarlymph nodes. Upper Abdomen: No interval change detected in the visualized upperabdomen. Absence of intravenous contrast limits sensitivity for detectingsolid organ findings. Chest Wall: No chest wall mass. Bones: No suspicious lytic or blastic lesions. IMPRESSION: 1. Diffuse bronchial wall thickening with scarring or atelectasis in theRIGHT middle lobe and lingula may be from acute and chronic aspirationchanges, no evidence of significant pulmonary nodule mass or pneumonia. Arabella Creda PUMP PRESS OPERATOR IMG CT CHEST Final Result documented in this encounter Visit Diagnoses Diagnosis Abnormal findings on diagnostic imaging of other specified body structures- Primary Abnormal findings on diagnostic imaging of other specified body structures documented in this encounter Additional Health Concerns Infection Onset Date Last Indicated Resolved Time CoV-Exposed Comment:Removed via automated background process based on negative test result 06/11/2023 06/11/2023 06/16/2023 5:30 PM E DT CoV-Risk 06/11/2023 06/16/2023 06/27/2023 1:21 AM EDT CoV-Risk 08/04/2023 08/04/2023 08/15/2023 1:21 AM EDT CoV-Risk 11/12/2023 11/12/202311/2211/23/2023 1:22 AM EDT CoV-Risk 12/09/2023 12/09/2023 12/20/2023 1:23 AM EST CoV-Risk 03/12/2024 03/12/2024 03/23/2024 1:21 AM EST CoV-Risk 04/01/2024 04/01/2024 04/12/2024 1:25 AM EST documented as of this encounter Care Teams Repeat Photocomposing Machine Operator Relationship Specialty Start Date End Date Arabella Cerda NP [address] [place] [address] PCP - General Family Medicine 08/17/21 09/15/23 Clare Wilson MD [address] [place] [address] [email or web address] PCP - General Family Medicine 09/16/23 12/05/23 Clare Wilson MD [address] [place] [address] [email or web address] PCP - General Family Medicine 12/06/23 03/11/24 Jenny Pugh MD [address] [address] [email or web address] PCP - General Family Medicine 08/22/24 Tamiko Manrique PA-C [address] [place] [address] [email or web address] Physician Restaurant Server 11/14/23 documented as of this encounter Additional Source Comments The information contained in this document represents components of the legal health record. It is not the complete legal health record.[facility]
--- OUTSIDE RECORDS SUMMARY | 2024-10-21 14:43 | XMS_ITS | Encounter Summary ---
Author Organization [facility] Address [address] [facility] [address] [place] [address] Phone Care Team Providers Care Cut Out Worker Name Role Phone Arabella Cerda NP Primary Care Provider [phone] Clare Wilson MD Primary Care Provider + Tamiko Manrique PA-C Unavailable [phone] Clare Wilson MD Primary Care Provider + Jenny Pugh MD Primary Care Provider [phone] Encounter Details Date Type Department Care Team (Late st Contact Info) Description 11/19/2022 Procedure Pass [facility], Ct Scan - [facility] [address] [place], [place] [phone] Social History Tobacco Use Types Packs/Day Years [...] Info) Description 11/07/2024 11:00 AM EDT Infusion [facility] Infusion [address] [address] Aaron Cheng MD [address] [place] [address] 12/01/2024 11:00 AM EDT Infusion [facility] Infusion [address] [address] Aaron Cheng MD [address] [place] [address] 12/22/2024 11:00 AM EST Infusion [facility] Infusion [address] [address] Aaron Cheng MD [address] [place] [address] 01/13/2025 11:00 AM EST Infusion [facility] Infusion [address] [address] Aaron Cheng MD [address] [place] [address] 02/03/2025 11:00 AM EST Infusion [facility] Medical Infusion [address] [address] Aaron Cheng MD [address] [place] [address] 02/24/2025 11:00 AM EST Infusion [facility] Infusion [address] [address] Aaron Cheng MD [address] [place] [address] documented as of this encounter Visit Diagnoses [...] documented as of this encounter Care Teams Cut Out Worker Relationship Specialty Start Date End Date Arabella Cerda NP [address] [place] [address] PCP - General Family Medicine 08/17/21 09/15/23 Clare Wilson MD [address] [place] [address] [email or web address] PCP - General Family Medicine 09/16/23 12/05/23 Clare Wilson MD [address] [place] [address] [email or web address] PCP - General Family Medicine 12/06/23 03/11/24 Jenny Pugh MD [address] [place] [address] [email or web address] PCP - General Family Medicine 08/22/24 Tamiko Manrique PA-C [address] [place] [email or web address] Physician Eap Counselor 11/14/23 documented as of this encounter Additional Source Comments The information contained in this document represents components of the legal health record. It is not the complete legal health record.[facility]
--- OUTSIDE RECORDS SUMMARY | 2024-10-21 14:43 | XMS_ITS | Encounter Summary ---
Author Organization [facility] Address [address] [facility] [address] [place] [address] Phone Care Team Providers Care Duck Bill Operator Name Role Phone Tamiko Manrique PA-C Unavailable [phone] Leandro Pugh MD Primary Care Provider [phone] Encounter Details Date Type Department Care Team (Late st Contact Info) Description 05/30/2024 Procedure Pass [facility], Ct Scan - [facility] [address] [place] [address] Social History Tobacco Use Types Packs/Day Years [...] AM EDT Rosa Elena Graves RN * [place] Suicide Severity Rating Scale (Screener/Recent Self-Report) Question [...] Info) Description 11/07/2024 11:00 AM EDT Infusion [facility] Medical Infusion Center [address] [place] [address] Aaron Cheng MD [address] [place] [address] 12/01/2024 11:00 AM EDT Infusion [facility] Medical Infusion [address] [address] Aaron Cheng MD [address] [place] [address] 12/22/2024 11:00 AM EST Infusion [facility] Medical Infusion [address] [address] Aaron Cheng MD [address] [place] [address] 01/13/2025 11:00 AM EST Infusion [facility] Medical Infusion [address] [address] Aaron Cheng MD [address] [place] [address] 02/03/2025 11:00 AM EST Infusion [facility] Infusion [address] [address] Aaron Cheng MD [address] [place] [address] 02/24/2025 11:00 AM EST Infusion [facility] Medical Infusion [address] [address] Aaron Cheng MD [address] [place] [address] documented as of this encounter Visit Diagnoses Not on filedocumented in this encounter Care Teams Duck Bill Operator Relationship Specialty Start Date End Date Leandro Pugh [place] [address] [email or web address] PCP - General Family Medicine 08/22/24 Tamiko Manrique PA-C [address] [place] [address] [email or web address] Physician Generator Assembler 11/14/23 documented as of this encounter Additional Source Comments The information contained in this document represents components of the legal health record. It is not the complete legal health record.[facility]
--- OUTSIDE RECORDS SUMMARY | 2024-10-21 14:43 | XMS_ITS | Encounter Summary ---
Author Organization [facility] Address [address] [facility] [address] [place] [address] Phone Care Team Providers Care Vp Global Marketing [employer] Name Role Phone Tamiko Manrique PA-C Unavailable [phone] Jenny Pugh MD Primary Care Provider [phone] Encounter Details Date Type Department Care Team (Late st Contact Info) Description 05/06/2024 Procedure Pass [facility], Ct Scan - [facility] [address] [place] [address] Social History Tobacco Use Types Packs/Day Years [...] with a working camera? Not on file Intimate Partner Violence Answer Date R ecorded Are you denied basic needs s uch as food, clothing, or medical care? No 05/05/2024 In the past 12 months have y ou been in a relationship with a person who hurts, threatens, or tries to control you? No 05/05/2024 Are you denied basic needs s uch as food, clothing, or medical care? No 05/05/2024 In the past 12 months have y ou been in a relationship with a person who hurts, threatens, or tries to control you? No 05/05/2024 Comments No Sex and Gender Information Value Date Recorded Sex Assigned at Female 02/19/2017 9:43 AM EST Legal Sex Female 5:56 PM EST Gender Identity Female 11/10/2022 1:55 PM EDT Sexual Orientation Straight 02/09/2018 1: 15 PM EST documented as of this encounter Plan of Treatment Upcoming Encounters Date Type Department Care Team (Late st Contact Info) Description 11/07/2024 11:00 AM EDT Infusion [facility] Infusion [address] [address] Aaron Cheng MD [address] [place] [address] 12/01/2024 11:00 AM EDT Infusion [facility] Infusion [address] [address] Aaron Cheng MD [address] [place] [address] 12/22/2024 11:00 AM EST Infusion [facility] Infusion [address] [address] Aaron Cehng MD [address] [place] [address] 01/13/2025 11:00 AM EST Infusion [facility] Infusion [address] [address] Aaron Cheng MD [address] [place] [address] 02/03/2025 11:00 AM EST Infusion [facility] Infusion [address] [address] Aaron Cheng MD [address] [place] [address] 02/24/2025 11:00 AM EST Infusion [facility] [address] [place] [address] Aaron Cheng MD [address] [place] [address] documented as of this encounter Visit Diagnoses Not on filedocumented in this encounter Care Teams Vp Global Marketing [employer] Relationship Specialty Start Date End Date Jenny Pugh MD [address] [place] [address] [email or web address] PCP - General Family Medicine 08/22/24 Tamiko Manrique PA-C [address] [place] [address] [email or web address] Physician Public Works Inspector 11/14/23 documented as of this encounter Additional Source Comments The information contained in this document represents components of the legal health record. It is not the complete legal health record.[facility]
--- OUTSIDE RECORDS SUMMARY | 2024-10-21 14:44 | XMS_ITS | Encounter Summary ---
Author Organization [facility] Address 399 [facility] [address] [place] [address] Phone Care Team Providers Care Hot Shot Name Role Phone Tamiko Manrique PA-C Unavailable [phone] Jenny Pugh MD Primary Care Provider [phone] Encounter Details Date Type Department Care Team (Late st Contact Info) Description 07/02/2024 Procedure Pass [facility], Ct Scan - [facility] [address] [place] [address] Social History Tobacco Use Types Packs/Day Years [...] got money to buy more. Never True 06/23/2024 Within the past 6 months the food we bought just didn't last and we didn't have enough money to get more. Never True Residential Stability Answer Date Recor ded What is your housing situation today? I have vero sing 06/23/2024 How many times have you move d in the past 12 months? Zero (I did not move) 06/23/2024 Paying for Meds Answer Date Recorded Do you have trouble paying for medicines? No 06/23/2024 Paying Utility Bills Answer Date Record ed Do you have trouble paying your heating or elect ricity bill? No 06/23/2024 Transportation Answer Date Recorded Has the lack of transportati on kept you from medical appointments or from getting medications? No 06/23/2024 Digital Access Answer Date Recorded No 06/23/2024 Yes 06/23/2024 Do you have reliable internet access at home? Ye s 06/23/2024 Do you have a device (e.g., phone, tablet, computer) with a working camera? Yes 06/23/2024 Intimate Partner Violence Answer Date R ecorded Are you denied basic needs s uch as food, clothing, or medical care? No 07/02/2024 In the past 12 months have y ou been in a relationship with a person who hurts, threatens, or tries to control you? No 07/02/2024 Are you denied basic needs s uch as food, clothing, or medical care? No 07/02/2024 In the past 12 months have y ou been in a relationship with a person who hurts, threatens, or tries to control you? No 07/02/2024 Comments No Sex and Gender Information Value Date Recorded Sex Assigned at Female 02/19/2017 9:43 AM EST Legal Sex Female 5:56 PM EST Gender Identity Female 11/10/2022 1:55 PM EDT Sexual Orientation Straight 02/09/2018 1: 15 PM EST documented as of this encounter Functional Status * Calculated C-SSRS Risk Score (Lifetime/Recent) Answer Date of Assessment Author Moderate Risk 07/02/2024 3:05 AM Kaycee Pinzon RN * [place] Suicide Severity Rating Scale (Screener/Recent Self-Report) Question Answer Date of Assessment Author 1. Wish to be (Past 1 Month) No 07/02/2024 3:05 AM Kaycee Pinzon RN 2. Non-Specific Active Suicidal Thoughts (Past 1 Month) No 07/02/2024 3:05 AM Kaycee Pinzon, CAROL ANN 6. Suicidal Behavior (Lifetime) Yes 07/02/2024 3:05 AM Kaycee Pinzon RN 6. Suicidal Behavior (3 Months) No 07/02/2024 3:05 AM EDT Kaycee Andrew RN documented as of this encounter Plan of Treatment Upcoming Encounters Date Type Department Care Team (Late st Contact Info) Description 11/07/2024 11:00 AM EDT Infusion [facility] Medical Infusion [address] [address] Aaron Cheng MD [address] [place] [address] 12/01/2024 11:00 AM EDT Infusion [facility] Medical Infusion [address] [address] Aaron Cheng MD [address] [place] [address] 12/22/2024 11:00 AM EST Infusion [facility] Infusion [address] [address] Aaron Cheng MD [address] [place] [address] 01/13/2025 11:00 AM EST Infusion [facility] Infusion [address] [address] Aaron Cheng MD [address] [place] [address] 02/03/2025 11:00 AM EST Infusion [facility] Infusion [address] [address] Aaron Cheng MD [address] [place] [address] 02/24/2025 11:00 AM EST Infusion [facility] Infusion [address] [address] Aaron Cheng MD [address] [place] [address] documented as of this encounter Visit Diagnoses Not on filedocumented in this encounter Care Teams Hot Shot Relationship Specialty Start Date End Date Jenny Pugh MD [address] [place] [address] [email or web address] PCP - General Family Medicine 08/22/24 Tamiko Manrique PA-C [address] [place] [address] [email or web address] Physician Coremaker Experimental 11/14/23 documented as of this encounter Additional Source Comments The information contained in this document represents components of the legal health record. It is not the complete legal health record.[facility]
--- OUTSIDE RECORDS SUMMARY | 2024-10-21 14:44 | XMS_ITS | Encounter Summary ---
Author Organization [facility] Address 399 [facility] [address] [place] [address] Phone Care Team Providers Care Crop Grain Or Livestock Farmer Name Role Phone Arabella Cerda NP Primary Care Provider [phone] Clare [place] MD Primary Care Provider + Tamiko Manrique PA-C Unavailable [phone] Clare [place] MD Primary Care Provider + Jenny Pugh MD Primary Care Provider Encounter Details Date Type Department Care Team (Late st Contact Info) Description 01/25/2023 Procedure Pass [facility], Ct Scan - [facility] 30 [place], [place] [id number] Social History Tobacco Use Types Packs/Day Years [...] Date of Assessment Author No Risk Indicated 01/27/2023 7:56 PM Mamta Gaston, CAROL ANN * [place] Suicide Severity Rating Scale (Screener/Recent Self-Report) Question Answer Date of Assessment Author 1. Wish to be (Past 1 Month) No 023 7:56 PM Mamta Gaston RN 2. Non-Specific Active Suici faith Thoughts (Past 1 Month) No 01/27/2023 7:56 PM Mamta Gaston RN 6. Suicidal Behavior (Lifetime) No 7:56 PM Mamta Gaston RN documented as of this encounter Plan of Treatment Upcoming Encounters Date Type Department Care Team (Late st Contact Info) Description 11/07/2024 11:[address] [facility] Infusion [address] [address] Aaron Cheng MD [address] [place] [address] 12/01/2024 11:[address] [facility] Infusion [address] [address] Aaron Cheng MD [address] [place] [address] 12/22/2024 11:[address] [facility] Infusion [address] [address] Aaron Cheng MD [address] [place] [address] 01/13/2025 11:[address] [facility] Infusion [address] [address] Aaron Cheng MD [address] [place] [address] 02/03/2025 11:00 AM EST Infusion [facility] [address] [place] [address] Aaron Cheng MD [address] [place] [address] 02/24/2025 11:00 AM EST Infusion [facility] [address] [place] [address] Aaron Cheng MD 90 [place] [address] documented as of this encounter Visit Diagnoses [...] documented as of this encounter Care Teams Crop Grain Or Livestock Farmer Relationship Specialty Start Date End Date Arabella Cerda NP [address] [place] [address] PCP - General Family Medicine 08/17/21 09/15/23 lCare [place] MD [address] [place] [address] [email or web address] PCP - General Family Medicine 09/16/23 12/05/23 Clare [place] MD 70 [place] [address] [email or web address] PCP - General Family Medicine 12/06/23 03/11/24 Jenny Pugh MD [address] [address] [email or web address] PCP - General Family Medicine 08/22/24 Tamiko Manrique PA-C 30 [place] [address] [email or web address] Physician Driver Supervisor 11/14/23 documented as of this encounter Additional Source Comments The information contained in this document represents components of the legal health record. It is not the complete legal health record.[facility]
--- OUTSIDE RECORDS SUMMARY | 2024-10-21 14:44 | XMS_ITS | Encounter Summary ---
Author Organization [facility] Address 399 [facility] [address] [place] [address] Phone Care Team Providers Care Car Shifter Name Role Phone Arabella Cerda NP Primary Care Provider [phone] Clare [place] MD Primary Care Provider + Tamiko Manrique PA-C Unavailable [phone] Clare [place] MD Primary Care Provider + Jenny Pugh MD Primary Care Provider Encounter Details Date Type Department Care Team (Late st Contact Info) Description 07/16/2023 Procedure Pass [facility], Ct Scan - [facility] [address] [place], [place] [phone] Social History Tobacco Use Types Packs/Day Years [...] Info) Description 11/07/2024 11:00 AM EDT Infusion [facility] Infusion [address] [address] Aaron Cheng MD [address] [place] [address] 12/01/2024 11:00 AM EDT Infusion [facility] Infusion [address] [address] Aaron Cheng MD [address] [place] [address] 12/22/2024 11:00 AM EST Infusion [facility] Infusion [address] [address] Aaron Cheng MD [address] [place] [address] 01/13/2025 11:00 AM EST Infusion [facility] Infusion [address] [address] Aaron Cheng MD [address] [place] [address] 02/03/2025 11:00 AM EST Infusion [facility] Medical Infusion [address] [address] Aaron Cheng MD [address] [place] [address] 02/24/2025 11:00 AM EST Infusion [facility] Infusion [address] [address] Aaron Cheng MD [address] [place] [address] documented as of this encounter Visit Diagnoses Not on filedocumented in this encounter Additional Health Concerns Infection Onset Date Last Indicated Resolved Time CoV-Risk 08/04/2023 08/04/2023 08/15/2023 1:21 AM EDT CoV-Risk 11/12/2023 11/12/2023 11/23/2023 1:22 AM EDT CoV-Risk 12/09/2023 12/09/2023 12/20/2023 1:23 AM EST CoV-Risk 03/12/2024 03/12/2024 03/23/2024 1:21 AM EST CoV-Risk 04/01/2024 04/01/2024 04/12/2024 1:25 AM EST documented as of this encounter Care Teams Car Shifter Relationship Specialty Start Date End Date Arabella Cerda CODING AUDITOR [address] [place] [address] PCP - General Family Medicine 08/17/21 09/15/23 Clare [place] MD [address] [place] [address] [email or web address] PCP - General Family Medicine 09/16/23 12/05/23 Clare [place] MD [address] [place] [address] [email or web address] PCP - General Family Medicine 12/06/23 03/11/24 Jenny Pugh MD [address] [place] [address] [email or web address] PCP - General Family Medicine 08/22/24 Tamiko Manrique PA-C [address] [place] [address] [email or web address] Physician Caddy Packer 11/14/23 documented as of this encounter Additional Source Comments The information contained in this document represents components of the legal health record. It is not the complete legal health record.[facility]
--- OUTSIDE RECORDS SUMMARY | 2024-10-21 14:44 | XMS_ITS | Encounter Summary ---
Author Organization [facility] Address [address] [facility] [address] [place] [address] Phone Care Team Providers Care Deputy Editor In Chief Name Role Phone Arabella Cerda NP Primary Care Provider [phone] Clare [place] MD Primary Care Provider + Tamiko Manrique PA-C Unavailable [phone] Clare [place] MD Primary Care Provider + Jenny Pugh MD Primary Care Provider Encounter Details Date Type Department Care Team (Late st Contact Info) Description 12/18/2022 Procedure Pass [facility], Ct Scan - [facility] 30 [place], [place] [phone] Social History Tobacco Use Types Packs/Day Years [...] Description 11/07/2024 11:[address] [facility] Infusion [address] [address] Aaron Cheng MD [address] [place] [address] 12/01/2024 11:[address] [facility] Infusion [address] [address] Aaron Cheng MD [address] [place] [address] 12/22/2024 11:[address] [facility] Infusion [address] [address] Aaron Cheng MD [address] [place] [address] 01/13/2025 11:[address] [facility] Infusion [address] [address] Aaron Cheng MD [address] [place] [address] 02/03/2025 11:00 AM EST Infusion [facility] Medical Infusion [address] [address] Aaron Cheng MD [address] [place] [address] 02/24/2025 11:[address] [facility] Infusion [address] [address] Aaron Cheng MD [address] [place] [address] documented as of this encounter Visit Diagnoses [...] documented as of this encounter Care Teams Deputy Editor In Chief Relationship Specialty Start Date End Date Arabella Cerda NP [address] [place] [address] PCP - General Family Medicine 08/17/21 09/15/23 Clare [place] MD [address] [place] [address] [email or web address] PCP - General Family Medicine 09/16/23 12/05/23 Clare [place] MD 70 [place] [address] [email or web address] PCP - General Family Medicine 12/06/23 03/11/24 Jenny Pugh MD [address] [place] [address] [email or web address] PCP - General Family Medicine 08/22/24 Tamiko Manrique PA-C [address] [place] [address] [email or web address] Physician Rate Inserter 11/14/23 documented as of this encounter Additional Source Comments The information contained in this document represents components of the legal health record. It is not the complete legal health record.[facility]
--- OUTSIDE RECORDS SUMMARY | 2024-10-21 14:44 | XMS_ITS | Encounter Summary ---
Author Organization [facility] Address 399 [facility] [address] [place] [address] Phone Care Team Providers Care Food Server Name Role Phone Arabella Cerda NP Primary Care Provider [phone] Clare [place] MD Primary Care Provider + Tamiko Manrique PA-C Unavailable [phone] Clare [place] MD Primary Care Provider + Jenny Pugh MD Primary Care Provider Encounter Details Date Type Department Care Team (Late st Contact Info) Description 02/17/2023 Procedure Pass [facility], Ct Scan - [facility] [address] [place], [place] [phone] Social History Tobacco Use Types Packs/Day Years [...] Date of Assessment Author No Risk Indicated 02/17/2023 7:06 PM Kathy Candelaria, CAROL ANN * [place] Suicide Severity Rating Scale (Screener/Recent Self-Report) Question Answer Date of Assessment Author 1. Wish to be (Past 1 Month) No 024 7:06 PM Kathy Candelaria, CAROL ANN 2. Non-Specific Active Suici faith Thoughts (Past 1 Month) No 02/17/2023 7:06 PM Sanket Candelaria RN 6. Suicidal Behavior (Lifetime) No 7:06 PM Kathy Candelaria, CAROL ANN documented as of this encounter Plan of Treatment Upcoming Encounters Date Type Department Care Team (Late st Contact Info) Description 11/07/2024 11:00 AM EDT Infusion [facility] Infusion [address] [address] Aaron Cheng MD [address] [place] [address] 12/01/2024 11:00 AM EDT Infusion [facility] Infusion [address] [address] Aaron Cheng MD [address] [place] [address] 12/22/2024 11:00 AM EST Infusion [facility] Infusion [address] [address] Aaron Cheng MD [address] [place] [address] 01/13/2025 11:00 AM EST Infusion [facility] Infusion [address] [address] Aaron Cheng MD [address] [place] [address] 02/03/2025 11:00 AM EST Infusion [facility] Infusion Center [address] [place] [address] Aaron Cheng MD [address] [place] [address] 02/24/2025 11:00 AM EST Infusion [facility] Infusion Center [address] [place] [address] Aaron Cheng MD 90 [place] [address] documented as of this encounter Visit Diagnoses [...] documented as of this encounter Care Teams Food Server Relationship Specialty Start Date End Date Arabella Cerda NP [address] [place] [address] PCP - General Family Medicine 08/17/21 09/15/23 Clare [place] MD [address] [place] [address] [email or web address] PCP - General Family Medicine 09/16/23 12/05/23 Clare [place] MD [address] [place] [address] [email or web address] PCP - General Family Medicine 12/06/23 03/11/24 Jenny Pugh MD [address] [address] [email or web address] PCP - General Family Medicine 08/22/24 Tamiko Manrique PA-C [address] [place] [address] [email or web address] Physician Wire Photo Operator News 11/14/23 documented as of this encounter Additional Source Comments The information contained in this document represents components of the legal health record. It is not the complete legal health record.[facility]
--- OUTSIDE RECORDS SUMMARY | 2024-10-21 14:44 | XMS_ITS | Encounter Summary ---
Author Organization [facility] Address [address] [place] [address] [place] [address] Phone Care Team Providers Care Nitrator Operator Name Role Phone Arabella Cerda NP Primary Care Provider [phone] Clare [place] MD Primary Care Provider + Tamiko Manrique PA-C Unavailable [phone] Clare [place] MD Primary Care Provider + Jenny Pugh MD Primary Care Provider Encounter Details Date Type Department Care Team (Late st Contact Info) Description 11/26/2020 Procedure Pass [place] Admitting Dept - Virtual Department [address] [place] [address] Social History Tobacco Use Types Packs/Day Years [...] Info) Description 11/07/2024 11:00 AM EDT Infusion [facility]fusion Center [address] [place] [address] Aaron Cheng MD [address] [place] [address] 12/01/2024 11:00 AM EDT Infusion [facility] Infusion [address] [address] Aaron Cheng MD [address] [place] [address] 12/22/2024 11:00 AM EST Infusion [facility] Infusion [address] [address] Aaron Cheng MD [address] [place] [address] 01/13/2025 11:00 AM EST Infusion [facility] Infusion [address] [address] Aaron Cheng MD [address] [place] [address] 02/03/2025 11:00 AM EST Infusion [facility] Infusion [address] [address] Aaron Cheng MD [address] [place] [address] 02/24/2025 11:00 AM EST Infusion [facility] Infusion [address] [address] Aaron Cheng MD [address] [place] [address] documented as of this encounter Visit Diagnoses [...] documented as of this encounter Care Teams Nitrator Operator Relationship Specialty Start Date End Date Arabella Cerda NP [address] [place] [address] PCP - General Family Medicine 08/17/21 09/15/23 Clare [place] MD [address] [place] [address] [email or web address] PCP - General Family Medicine 09/16/23 12/05/23 Clare [place] MD [address] [place] [address] [email or web address] PCP - General Family Medicine 12/06/23 03/11/24 Jenny Pugh MD [address] [place] [address] [email or web address] PCP - General Family Medicine 08/22/24 Tamiko Manrique PA-C [address] [place] [address] [email or web address] Physician Procurement Accountant 11/14/23 documented as of this encounter Additional Source Comments The information contained in this document represents components of the legal health record. It is not the complete legal health record.[facility]
--- OUTSIDE RECORDS SUMMARY | 2024-10-21 14:44 | XMS_ITS | Encounter Summary ---
Author Organization [facility] Address [address] [facility] [address] [place] [address] Phone Care Team Providers Care Healthcare Administrative Assistant Name Role Phone Arabella Cerda NP Primary Care Provider [phone] Clare Wilson MD Primary Care Provider + Tamiko Manrique PA-C Unavailable [phone] Clare Wilson MD Primary Care Provider + Jenny Pugh MD Primary Care Provider Encounter Details Date Type Department Care Team (Late st Contact Info) Description 07/25/2023 Procedure Pass [facility], Ct Scan - [facility] [address] [place], [place] [id number] Social History Tobacco Use Types Packs/Day Years [...] Date of Assessment Author No Risk Indicated 07/25/2023 12:15 PM EDT Tonya Elizondo RN * [place] Suicide Severity Rating Scale (Screener/Recent Self-Report) Question Answer Date of Assessment Author 1. Wish to be (Past 1 Month) No 024 12:15 PM EDT Tonya Elizondo RN 2. Non-Specific Active Suici faith Thoughts (Past 1 Month) No 07/25/2023 12:15 PM EDT Fransisca Elizondo RN 6. Suicidal Behavior (Lifetime) No 12:15 PM EDT Tonya Elizondo RN documented as of this encounter Plan of Treatment Upcoming Encounters Date Type Department Care Team (Late st Contact Info) Description 11/07/2024 11:00 AM EDT Infusion [facility] Infusion [address] [address] Aaron Cheng MD [address] [place] [address] 12/01/2024 11:00 AM EDT Infusion [facility] Infusion [address] [address] Aaron Cheng MD [address] [place] [address] 12/22/2024 11:00 AM EST Infusion [facility] Infusion [address] [address] Aaron Cheng MD [address] [place] [address] 01/13/2025 11:00 AM EST Infusion [facility] Infusion [address] [address] Aaron Cheng MD [address] [place] [address] 02/03/2025 11:00 AM EST Infusion [facility] Infusion [address] [address] Aaron Cheng MD [address] [place] [address] 02/24/2025 11:00 AM EST Infusion [facility] Infusion [address] [address] Aaron Cheng MD [address] [place] [address] documented as of this encounter Visit Diagnoses [...] documented as of this encounter Care Teams Healthcare Administrative Assistant Relationship Specialty Start Date End Date Arabella Cerda NP [address] [place] [address] PCP - General Family Medicine 08/17/21 09/15/23 Clare Wilson MD [address] [place] [address] [email or web address] PCP - General Family Medicine 09/16/23 12/05/23 Clare Wilson MD 70 [place] [address] [email or web address] PCP - General Family Medicine 12/06/23 03/11/24 Jenny Pugh MD [address] [address] [email or web address] PCP - General Family Medicine 08/22/24 Tamiko Manrique PA-C 30 [place] [address] [email or web address] Physician Telegraph Dispatcher 11/14/23 documented as of this encounter Additional Source Comments The information contained in this document represents components of the legal health record. It is not the complete legal health record.[facility]
--- OUTSIDE RECORDS SUMMARY | 2024-10-21 14:44 | XMS_ITS | Encounter Summary ---
Author Organization [facility] Address [address] [place] [address] [place] [address] Phone Care Team Providers Care Flooring Grader Name Role Phone Arabella Cerda NP Primary Care Provider [phone] Clare Wilson MD Primary Care Provider + Tamiko Manrique PA-C Unavailable [phone] Clare Wilson MD Primary Care Provider + Jenny Pugh MD Primary Care Provider [phone] Encounter Details Date Type Department Care Team (Late st Contact Info) Description 11/21/2020 Procedure Pass [facility], Ct Scan - [address] [id number] Social History Tobacco Use Types Packs/Day Years [...] Date of Assessment Author No Risk Indicated 11/23/2020 5:34 PM EDT Maryellen Anand RN * [place] Suicide Severity Rating Scale (Screener/Recent Self-Report) Question Answer Date of Assessment Author 1. Wish to be (Past 1 Month) No 5:34 PM EDT Maryellen Anand, RN 2. Non-Specific Active Suici faith Thoughts (Past 1 Month) No 11/23/2020 5:34 PM EDT Maryellen Anand, RN 6. Suicidal Behavior (Lifetime) No 5:34 PM EDT Maryellen Anand, RN documented as of this encounter Plan of Treatment Upcoming Encounters Date Type Department Care Team (Late st Contact Info) Description 11/07/2024 11:00 AM EDT Infusion [facility] Medical Infusion [address] [address] Aaron Cheng MD [address] [place] [address] 12/01/2024 11:00 AM EDT Infusion [facility] Medical Infusion [address] [address] Aaron Cheng MD [address] [place] [address] 12/22/2024 11:00 AM EST Infusion [facility] Medical Infusion [address] [address] Aaron Cehng MD [address] [place] [address] 01/13/2025 11:00 AM EST Infusion [facility] Medical Infusion [address] [address] Aaron Cheng MD [address] [place] [address] 02/03/2025 11:00 AM EST Infusion [facility] Medical Infusion [address] [address] Aaron Cheng MD [address] [place] [address] 02/24/2025 11:00 AM EST Infusion [facility] [address] [place] [address] Aaron Cheng MD 90 [place] [address] documented as of this encounter Visit Diagnoses [...] documented as of this encounter Care Teams Flooring Grader Relationship Specialty Start Date End Date Arabella Cerda NP [address] [place] [address] PCP - General Family Medicine 08/17/21 09/15/23 Clare Wilson MD 70 [place] [address] [email or web address] PCP - General Family Medicine 09/16/23 12/05/23 Clare Wilson MD [address] [place] [address] [email or web address] PCP - General Family Medicine 12/06/23 03/11/24 Jenny Pugh MD [address] [place] [address] [email or web address] PCP - General Family Medicine 08/22/24 Tamiko Manrique PA-C 30 [place] [address] [email or web address] Physician Piece Meat Trimmer 11/14/23 documented as of this encounter Additional Source Comments The information contained in this document represents components of the legal health record. It is not the complete legal health record.[facility]
--- OUTSIDE RECORDS SUMMARY | 2024-10-21 14:45 | XMS_ITS | Encounter Summary ---
Author Organization [facility] Address [address] [facility] [address] [place] [address] Phone Care Team Providers Care Audio/Video Technician Name Role Phone Tamiko Manrique PA-C Unavailable [phone] Leandro Pugh MD Primary Care Provider [phone] Encounter Details Date Type Department Care Team (Late st Contact Info) Description 09/15/2024 Procedure Pass [facility], Ct Scan - [facility] 30 [place] [address] Social History Tobacco Use Types Packs/Day Years [...] got money to buy more. Never True 08/24/2024 Within the past 6 months the food we bought just didn't last and we didn't have enough money to get more. Never True Residential Stability Answer Date Recor ded What is your housing situation today? I have vero sing 08/24/2024 How many times have you move d in the past 12 months? Zero (I did not move) 08/24/2024 Paying for Meds Answer Date Recorded Do you have trouble paying for medicines? No 08/24/2024 Paying Utility Bills Answer Date Record ed Do you have trouble paying your heating or elect ricity bill? No 08/24/2024 Transportation Answer Date Recorded Has the lack of transportati on kept you from medical appointments or from getting medications? No 08/24/2024 Digital Access Answer Date Recorded Yes 08/24/2024 No 08/24/2024 Do you have reliable internet access at home? No 08/24/2024 Do you have a device (e.g., phone, tablet, computer) with a working camera? No 08/24/2024 Intimate Partner Violence Answer Date R ecorded Are you denied basic needs s uch as food, clothing, or medical care? No 09/15/2024 In the past 12 months have y ou been in a relationship with a person who hurts, threatens, or tries to control you? No 09/15/2024 Are you denied basic needs s uch as food, clothing, or medical care? No 09/15/2024 In the past 12 months have y ou been in a relationship with a person who hurts, threatens, or tries to control you? No 09/15/2024 Comments No Sex and Gender Information Value Date Recorded Sex Assigned at Female 02/19/2017 9:43 AM EST Legal Sex Female 5:56 PM EST Gender Identity Female 11/10/2022 1:55 PM EDT Sexual Orientation Straight 02/09/2018 1: 15 PM EST documented as of this encounter Functional Status * Calculated C-SSRS Risk Score (Lifetime/Recent) Answer Date of Assessment Author No Risk Indicated 09/15/2024 6:48 PM EDT Anastacia Webster RN * [place] Suicide Severity Rating Scale (Screener/Recent Self-Report) Question Answer Date of Assessment Author 1. Wish to be (Past 1 Month) No 025 6:48 PM EDT Anastacia Webster, RN 2. Non-Specific Active Suici faith Thoughts (Past 1 Month) No 09/15/2024 6:48 PM EDT Anastacia Webster, RN 6. Suicidal Behavior (Lifetime) No 6:48 PM EDT Anastacia Webster, RN documented as of this encounter Plan of Treatment Upcoming Encounters Date Type Department Care Team (Late st Contact Info) Description 11/07/2024 11:[address] [facility] Medical Infusion [address] [address] Aaron Cheng MD [address] [place] [address] 12/01/2024 11:[address] [facility] Medical Infusion [address] [address] Aaron Cheng MD [address] [place] [address] 12/22/2024 11:00 AM EST Infusion [facility] Infusion [address] [address] Aaron Cheng MD [address] [place] [address] 01/13/2025 11:[address] [facility] Medical Infusion [address] [address] Aaron Cheng MD [address] [place] [address] 02/03/2025 11:00 AM EST Infusion [facility] Infusion [address] [address] Aaron Cheng MD [address] [place] [address] 02/24/2025 11:[address] [facility] Medical Infusion [address] [address] Aaron Cheng MD [address] [place] [address] documented as of this encounter Visit Diagnoses Not on filedocumented in this encounter Care Teams Audio/Video Technician Relationship Specialty Start Date End Date Leandro Pugh MD [address] [place] [address] [email or web address] PCP - General Family Medicine 08/22/24 Tamiko Manrique PA-C [address] [place] [address] [email or web address] Physician Conveyor Attendant 11/14/23 documented as of this encounter Additional Source Comments The information contained in this document represents components of the legal health record. It is not the complete legal health record.[facility]
--- OUTSIDE RECORDS SUMMARY | 2024-10-21 14:45 | XMS_ITS | Encounter Summary ---
Author Organization [facility] Address [address] [place] [address] [place] [address] Phone Care Team Providers Care Access Services Librarian Name Role Phone Arabella Cerda NP Primary Care Provider [phone] Clare Wilson MD Primary Care Provider + Tamiko Manrique PA-C Unavailable [phone] Clare Wilson MD Primary Care Provider + Jenny Pugh MD Primary Care Provider Encounter Details Date Type Department Care Team (Late st Contact Info) Description 07/03/2021 Procedure Pass [facility], Ct Scan - [address] [id number] Social History Tobacco Use Types Packs/Day Years [...] Answer Date of Assessment Author Moderate Risk 07/03/2021 3:56 PM EDT Dorcas Weber, RN * [place] Suicide Severity Rating Scale (Screener/Recent Self-Report) Question Answer Date of Assessment Author 1. Wish to be (Past 1 Month) No 022 3:56 PM EDT Dorcas Weber RN 2. Non-Specific Active Suici faith Thoughts (Past 1 Month) No 07/03/2021 3:56 PM EDT Sarah Weber RN 6. Suicidal Behavior (Lifetime) Yes 2 3:56 PM EDT Dorcas Weber RN 6. Suicidal Behavior (3 Months) No 2 3:56 PM EDT Dorcas Weber RN documented as of this encounter Plan of Treatment Upcoming Encounters Date Type Department Care Team (Late st Contact Info) Description 11/07/2024 11:00 AM EDT Infusion [facility] Infusion [address] [address] Aaron Cheng MD [address] [place] [address] 12/01/2024 11:00 AM EDT Infusion [facility] Infusion [address] [address] Aaron Cheng MD [address] [place] [address] 12/22/2024 11:00 AM EST Infusion [facility] Infusion [address] [address] Aaron Cheng MD [address] [place] [address] 01/13/2025 11:00 AM EST Infusion [facility] Medical Infusion [address] [address] Aaron Cheng MD [address] [place] [address] 02/03/2025 11:00 AM EST Infusion [facility] Infusion [address] [address] Aaron Cheng MD [address] [place] [address] 02/24/2025 11:00 AM EST Infusion [facility] 30 [place] [address] Aaron Cheng MD 90 [place] [address] documented as of this encounter Visit Diagnoses Not on filedocumented in this encounter Additional Health Concerns Infection Onset Date Last Indicated Resolved Time MRSA Comment:Infection Loaded by the Load Infection Utility 06/28/2016 06/28/2016 03/29/2022 1:30 A M EST CoV-Risk 12/05/2021 12/05/2021 12/16/2021 1:22 AM EDT CoV-Risk 02/13/2022 02/13/2022 02/13/2022 6:07 PM EST COVID-19 02/13/2022 02/13/2022 03/06/2022 1:21 AM EST CoV-Risk 09/24/2022 09/24/2022 10/05/2022 1:21 AM EDT CoV-Exposed Comment:Removed via automated background process based on negative test result 06/11/2023 06/11/2023 06/16/2023 5:30 PM EDT CoV-Risk 06/11/2023 06/16/2023 06/27/2023 1:21 AM EDT CoV-Risk 08/04/2023 08/04/2023 08/15/2023 1:2 1 AM EDT CoV-Risk 11/12/2023 11/12/2023 11/23/2023 1:22 AM EDT CoV-Risk 12/09/2023 12/09/2023 12/20/2023 1:23 AM EST CoV-Risk 03/12/2024 03/12/2024 03/23/2024 1:21 AM EST CoV-Risk 04/01/2024 04/01/2024 04/12/2024 1:25 AM EST documented as of this encounter Care Teams Access Services Librarian Relationship Specialty Start Date End Date Arabella Cerda NP 70 [place] [address] PCP - General Family Medicine 08/17/21 09/15/23 Clare Wilson MD [address] [place] [address] [email or web address] PCP - General Family Medicine 09/16/23 12/05/23 Clare Wilson MD [address] [place] [address] [email or web address] PCP - General Family Medicine 12/06/23 03/11/24 Jenny Pugh MD [address] [place] [address] [email or web address] PCP - General Family Medicine 08/22/24 Tamiko Manrique PA-C [address] [place] [address] [email or web address] Physician Cheese Weigher 11/14/23 documented as of this encounter Additional Source Comments The information contained in this document represents components of the legal health record. It is not the complete legal health record.[facility]
--- OUTSIDE RECORDS SUMMARY | 2024-10-21 14:45 | XMS_ITS | Encounter Summary ---
Author Organization [facility] Address [address] [facility] [address] [place] [address] Encounters * CPT with Stuart Cutlre at [facility] on 2024-08-25 { reasonForRequest : Patient is starting to get sharp pains on the right side of herbody. , patientReports : , denies :[ Sharp focal or diffuse abdominal pain , Vomiting blood/coffee ground material , Bloating, jaundice new onset with pain , Nausea and vomiting greater than 2 hours with abdominal pain ,&q uot;Tearing pain that radiates to back , Food Impaction ], chiefComplaints : Abdominal Pain , pmh : COPD/Asthma, Severe Persistent Mental Illness (SPMI), Hypertension, Anxiety Disorder, Rheumatoid Arthritis, Pneumonia , allergies :"Aspirin, Doxycycline, Morphine, Bactrim, Penicillins, Augmentin , otherAllergies :n ull, painAssessment : , visitOutcome : , additionalComments : 63 y.o female complains of Abdominal Pain\nPatient calling reporting sharp pain on the L side of her groin/ pelvic area that started earlier today. Patient reports the pain has been intermittent all day, but states it has gotten worse in the last hour of so. Patient reports hx ofkidney stones, but states pain is usually in flank area; denies any urinary symptoms. Patient also reports hx of abdominal hernia repair in the past as well. Patient denies nausea or vomiting, statesdiarrhea earlier this morning. Patient denies fever or chills. Patient reports pain radiates down her L leg; patient denies any known injury to the area. I provided information on the mobile health provider response time and advised the patient and/or caregiver to monitor reported signs and symptoms. I discussed the warning signs of when to seek emergency care -Allison Escobar RN } This 63-year-old female with a history including but not limited to COPD, anxiety/depression, HTN, RA requested a visit to address 11/21 left lower abdominal and superpubic pain since earlier this afternoon. Patient states she had similar pain back in the early s and ended up having surgery to repair a hernia. Patient states she had two episodes of diarrhea this morning. Patient denies any strenuous activity, dysuria, hematuria, flank pain, fevers, nausea, vomiting. Patient presents awake and alert, in moderate distress and speaking full sentences. Her vital signsare reasonably stable and she is afebrile. Nonfocal neurological exam. Normal gait. Lungs are clearthroughout auscultation. Left lower quadrant and suprapubic region are tender upon palpation, abdomen otherwise benign. No CVA tenderness. No lower extremity edema. We discussed the diagnostic uncertainty of home visits and the risk associated with this. In this case, I feel that the patient would benefit from emergency department evaluation for imaging or proper diagnosis. The patient is agreeable for ambulance transport to [facility]. 911 was initiated and SBAR was given to [facility]. IV_(FLUIDS_AND/OR_MEDICATION), MEDICATION_IM Written by Stuart Cutler on 2024-08-25
--- OUTSIDE RECORDS SUMMARY | 2024-10-21 14:45 | XMS_ITS | Clinical Summary ---
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 Name Role Phone Tamiko Manrique PA-C Unavailable [phone] eJnny Pugh MD Primary Care Provider Allergies Active Allergy Reactions Criticality Noted Date Comments Aspirin GI Upset 06/18/2013 Cephalexin Diarrhea Medium 11/28/2022 Chocolate Fatigue Medium 11/28/2022 Clavulanic Acid 11/28/2022 Other Reaction(s): stomach pain Doxycycline Nausea And Vomiting 06/18/2013 Fish 11/06/2021 Iodinated Contrast Media Hives,Anaphylaxis High 07/14 Methyclothiazide Other (See Comments) 05/27/2015 Pt states do not recall reaction Milk Medium 11/28/2022 Other Reaction(s): can take with lactaid Morphine Hives 06/18/2013 Nabumetone Hives 06/18/2013 Onion High 11/28/2022 Other Reaction(s): migraine Other 09/04/2019 Chocolate, Onion, Gravy, Pickles, Aspertame Other reaction(s): hives ? Rash Penicillins Pain High 10/28/2019 augmentin Polyethylene Glycol High 11/28/2022 Potassium Chloride High 11/28/2022 Propranolol Hives 06/18/2013 Quetiapine Hives,Other (See Comments) 06/18/2013 Tolerates Seroquel Fish Derived 12/01/2018 Shellfish Containing Products High 11/28/2022 Other Reaction(s): Anaphylaxis Sodium Benzoate High 11/28/2022 Sulfa (Sulfonamide Antibiotics) Hives 06/18/2013 Other Reaction(s): unknown reaction severity Sulfamethoxazole-Trimetho prim Hives High 05/27/2015 Thiazides Unknown 11/06/2021 Other reaction(s): hives Other reaction(s): hives Trimethoprim Medium 11/28/2022 Other Reaction(s): hives Medications * This document contains information received from the source organization and may not represent a complete record from that organization. albuterol 90 mcg/actuation inhaler Inhale 2 puffs into the lungs every 4 (four) hours as needed for wheezing or shortness of breath/dyspnea. 18 g 023 Active adalimumab (HUMIRA) 40 mg/0.4 mL pen kit citrate free Inject 0.4 mL (40 mg total) under the skin every 14 (fourteen) days. 0.8 mL 023 Active Additional Information Patient not taking.Reported on 09/27/2024 ascorbic acid, vitamin C, (VITAMIN C) 250 MG tablet Take 2 tablets (500 mg total) by mouth daily. 30 tablet 023 Active carBAMazepine (TEGRETOL XR) 400 MG 12 hr tablet Take 1 tablet (400 mg total) by mouth 2 (two) times a day. 60 tablet 023 Active cholecalciferol (VITAMIN D3) 25 MCG (1,000 unit) tablet Take 2 tablets (2,000 Units total) by mouth daily. 60 tablet 023 Active estradioL (ESTRACE) 1 MG tablet Take 1 tablet (1 mg total) by mouth daily. 30 tablet 023 Active fluticasone propion-salmetero L (ADVAIR DISKUS) 500-50 mcg/dose DISKUS Inhale 1 puff into the lungs every 12 (twelve) hours. 1 each 023 Active lactase (LACTAID) 3,000 unit tablet Take 1 tablet (3,000 Units total) by mouth 4 (four) times a day. 120 tablet 023 Active lisinopril (PRINIVIL,ZESTRIL ) 10 MG tablet Take 1 tablet (10 mg total) by mouth daily. 30 tablet 023 Active meclizine (ANTIVERT) 25 mg tablet Take 1 tablet (25 mg total) by mouth 3 (three) times a day as needed. 90 tablet Active melatonin 3 mg Tab Take 3 tablets (9 mg total) by mouth nightly at bedtime. 90 tablet Active metFORMIN (GLUCOPHAGE) 500 MG tablet Take 1 tablet (500 mg total) by mouth 2 (two) times a day with meals. 60 tablet Active montelukast (SINGULAIR) 10 mg tablet Take 1 tablet (10 mg total) by mouth nightly at bedtime. 30 tablet Active multivitamins capsule Take 1 capsule by mouth daily. 30 capsule Active pantoprazole (PROTONIX) 20 MG tablet Take 2 tablets (40 mg total) by mouth 2 (two) times a day. 60 tablet Active prazosin (MINIPRESS) 2 MG capsule Take 2 capsules (4 mg total) by mouth nightly at bedtime. 2mg prn insomnia 60 capsule Active topiramate (TOPAMAX) 100 MG tablet Take 1.5 tablets (150 mg total) by mouth 2 (two) times a day. 90 tablet 023 Active umeclidinium (INCRUSE ELLIPTA) 62.5 mcg/actuation inhalationIndicat ions:last filled 10/14 Inhale 62.5 mcg (1 puff total) into the lungs daily. Indications: last filled 10/14 30 each 023 Active dicyclomine (BENTYL) 10 MG capsule Take 1 capsule (10 mg total) by mouth 4 (four) times a day. 120 capsule Active docusate sodium (COLACE) 100 MG capsule Take 1 capsule (100 mg total) by mouth 3 (three) times a day. 90 capsule 023 Active lidocaine 4 % Place 1 patch onto the skin daily. 30 patch Active senna (SENOKOT) 8.6 mg tablet Take 2 tablets by mouth nightly at bedtime. 60 tablet Active hydrOXYzine (ATARAX) 50 MG tablet Take 1 tablet (50 mg total) by mouth 3 (three) times a day as needed for anxiety (insomnia). 90 tablet Active traZODone (DESYREL) 50 MG tablet Take 1 tablet (50 mg total) by mouth nightly at bedtime as needed. 30 tablet Active sodium chloride (OCEAN) 0.65 % nasal spray 1 spray by Nasal route as needed for congestion. 15 mL 12 Active Additional Information Patient not taking.Reported on 09/27/2024 nystatin (NYSTOP) powder Apply topically 4 (four) times a day. 15 g Active miconazole 2 % powder Apply topically as needed for itching. 70 g Active Additional Information Patient not taking.Reported on 09/27/2024 ARIPiprazole (ABILIFY) 10 MG tablet Take 10 mg by mouth daily. Active gabapentin (NEURONTIN) 800 MG tablet Take 800 mg by mouth 3 (three) times a day. Active risperiDONE (RISPERDAL) 3 MG tablet Take 3 mg by mouth daily with lunch. Active risperiDONE (RISPERDAL) 4 MG tablet Take 4 mg by mouth nightly at bedtime. Active traMADoL (ULTRAM) 50 mg tablet Take 50 mg by mouth 2 (two) times a day as needed for pain (specific location in comments). Active ibuprofen (MOTRIN) 600 mg tablet (To-Go) Take 1 tablet by mouth every 6 hours as needed for pain. Active sertraline (ZOLOFT) 25 MG tablet Take 3 tablets (75 mg total) by mouth nightly at bedtime. 90 tablet Active bisacodyl (DULCOLAX) 5 mg EC tablet Take 1 tablet (5 mg total) by mouth daily as needed. 30 tablet Active ixekizumab (TALTZ AUTOINJECTOR) 80 mg/mL subcutaneous auto-injector Inject 80 mg under the skin every 30 (thirty) days. Active SUMAtriptan (IMITREX) 100 MG tablet Take 100 mg by mouth once as needed for migraine. Active albuterol 2.5 mg /3 mL (0.083 %) nebulizer solution Take 3 mL (2.5 mg total) by nebulization 4 (four) times a day as needed. 30 mL 01/29/2 025 Active LORazepam (ATIVAN) 0.5 MG tablet Take 1 tablet (0.5 mg total) by mouth every 6 (six) hours as needed for anxiety. 12 tablet 025 Active chlorhexidine (PERIDEX) 0.12 % solution Use as directed 15 mL in the mouth or throat 2 (two) times a day. 120 mL 025 Active omalizumab (XOLAIR) 150 mg/mL subcutaneous syringe Active ondansetron (ZOFRAN-ODT) 4 MG disintegrating tablet Take 1 tablet (4 mg total) by mouth every 8 (eight) hours as needed for nausea. 12 tablet 025 Active ondansetron (ZOFRAN-ODT) 4 MG disintegrating tabletIndications :last filled 11/26 Take 1 tablet (4 mg total) by mouth every 8 (eight) hours as needed for nausea. Indications: last filled 11/26 60 tablet 023 2024 Discontinued(D uplicate order) ondansetron (ZOFRAN-ODT) 4 MG disintegrating tablet Take 1 tablet (4 mg total) by mouth every 8 (eight) hours as needed for nausea. 8 tablet 024 2024 Discontinued cefuroxime (CEFTIN) 250 mg tablet (To-Go) Take 500 mg (2 tablets) by mouth twice daily for 7 days. 025 2024 oxyCODONE-acetami nophen (PERCOCET) 5-325 mg per tablet Take 1 tablet by mouth every 4 (four) hours as needed for pain (specific location in comments). 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 Bleeding 11/20/2022 Assessment & Plan (11/20/2022 10:19 AM EDT): Psychiatry staff were concerned for possible vaginal bleeding on 11/18 and advised to consult [facility] No further bleeding has been noted by pt or staff Pt advised to follow up outpatient with [facility] if there is concern for bleeding Constipation 11/19/2022 Assessment & Plan (11/20/2022 10:18 AM EDT): Pt received imodium on admission for diarrhea Imodium discontinued Pt received Senna/Colace Miralax PRN Mag Citrate and Lactulose given 11/19 with > 3 bowel movement overnight 11/19 CT Abd/Pelvis with significant amount stool scattered throughout the colon Regular diet Pt was encourage to hydrate when she was constipated and then she developed diarrhea with subsequent decrease in sodium. Pt instructed to return to normal oral intake and to avoid large quantities of free water intake. Continue fluid restricted diet and recheck BMP in two days. FIT test was ordered and was not sent overnight, pt denies any further bleeding. Severe major depression 11/10/2022 Verbalizes suicidal thoughts 11/09/2022 Community acquired pneumonia 02/28/2022 Assessment & Plan (03/01/2022 1:02 PM EST): She came to the emergency department with shortness of breath and cough, in the setting of recent COVID-19 infection. She was febrile in the ED to 1 and 1.3 and had a marked leukocytosis to 27.2 thousand. COVID PCR negative. Chest x-ray showed left lung consolidations, suspected CAP. Improving -Continue ceftriaxone and azithromycin as scheduled -Strep pneumo and Legionella urinary antigens pending -We will continue to trend white blood cell count and encourage ambulation with clinical improvement Posttraumatic stress disorder 12/05/2021 Chronic obstructive pulmonary disease 12/05/2021 Hearing loss 12/05/2021 Overview (07/03/2024): [facility] audiology Pernicious anemia 12/05/2021 Ureterolithiasis 11/25/2020 Assessment & Plan (11/20/2022 10:13 AM EDT): Abdominal pain much improved today pt had > [address] abd/pelvis: Punctate nonobstructing stones in the left kidney similar to prior study. No hydronephrosis in either kidney UA negative on 11/19 Pt states she does have frequent UTI and takes Keflex at home, no evidence of active UTI Assessment & Plan (11/29/2020 9:22 AM EDT): Without ureteral obstruction. POD #3 s/p laser lithotripsy, cystoscopy, uteroscopy, retrograde stone extraction. -Patient will need to follow-up with urology as an outpatient -urine cx from 11/25 no growth COVID-19 virus infection 11/25/2020 Assessment & Plan (02/28/2022 10:50 AM EST): Diagnosed with COVID on 02/13. PCR today is negative. This is her second infection. She had an initial vaccine series but has never been boosted. -No indication for remdesivir at this time -She appears to be COVID recovered serologically Assessment & Plan (11/29/2020 11:43 AM EDT): The patient is asymptomatic, no hypoxia, vital [...] how asymptomatic people can still transmit Covid. Glaucoma 12/03/2019 Severe major depression without psychotic featur es 09/04/2019 Severe recurrent major depre ssion without psychotic features 11/25/2018 Assessment & Plan (11/19/2022 2:19 PM EDT): Pt admitted with suicidal ideation, management per psychiatry Allergic rhinitis 06/16/2013 Overview (04/03/2014): Allergic rhinitis Asthma 06/16/2013 Overview (04/03/2014): Asthma Assessment & Plan (03/01/2022 12:58 PM EST): Asthma exacerbation secondary to recent COVID-19 and now suspected bacterial pneumonia. She is much improved overnight but has been on steroids intermittently over the last few months --Transition from IV Solu-Medrol to prednisone --Continue scheduled duo nebs, Advair, as needed albuterol, singular -Continue antihistamines, substituting Claritin for Johanny Assessment & Plan (11/29/2020 9:25 AM EDT): No acute symptoms, continue outpatient medications Bipolar disorder 06/16/2013 Overview (04/03/2014): Bipolar disorder Assessment & Plan (02/28/2022 10:51 AM EST): Continue Abilify and Risperdal Assessment & Plan (11/25/2020 5:06 PM EDT): Mood is stable. No SI. Continue Abilify, risperidone, and prazosin as prescribed. Gastroesophageal reflux disease 06/16/2013 Overview (04/03/2014): Gastroesophageal reflux disease Seizure disorder 06/16/2013 Overview (04/03/2014): Seizure disorder Assessment & Plan (02/28/2022 10:52 AM EST): Continue Tegretol, Topamax and gabapentin Assessment & Plan (11/29/2020 9:24 AM EDT): No seizures while inpatient. Continue carbamazepine and topiramate as prescribed. Migraine 06/16/2013 Overview (04/03/2014): Migraine Encounters Date Type Department Care Team Description 10/17/2024 11:00 AM EDT Infusion [facility] [address] [place] [address] Aaron Cheng MD Selective deficiency of IgG subclasses (Primary Dx) 10/06/2024 4:07 PM EDT - 10/08/2024 11:28 AM EDT Emergency [facility] Emergency [address] [place] [address] Phillip Rico MD Savage, Justin G, DO Perez, Alberto Juan Ignacio, MD Discharge Disposition: Home or Self Care 10/05/2024 5:30 PM EDT - 10/05/2024 8:05 PM EDT Emergency [facility] Emergency [address] [place] [address] Discharge Disposition: Home or Self Care 09/28/2024 3:47 PM EDT - 09/28/2024 9:57 PM EDT Emergency [facility] Emergency [address] [place] [address] Amador Bob MD, MPH, MAXIME Discharge Disposition: Home or Self Care 09/27/2024 4:40 PM EDT Office Visit [facility] at [address] [address] Phillip Roth, PACindaC Teagan Florian PA-C Chronic pain of right knee (Primary Dx) 09/23/2024 11:00 AM EDT Infusion [facility] Medical Infusion Center [address] [place] [address] Aaron Cheng MD Selective deficiency of IgG subclasses (Primary Dx) 09/21/2024 4:31 PM EDT - 09/21/2024 9:48 PM EDT Emergency [facility] Emergency [address] [place] [address] Geremias Crow MD Discharge Disposition: Home or Self Care 09/15/2024 10:36 PM EDT - 09/16/2024 1:19 AM EDT Emergency [facility] Emergency [address] [place] [phone] Teo Kirby DO Discharge Disposition: Home or Self Care 09/15/2024 Procedure Pass [facility], Ct Scan - [facility] Hospital [address] [place] [address] 09/10/2024 11:36 PM EDT - 09/11/2024 12:25 AM EDT Emergency [facility] Emergency [address] [place] [address] Teo Kirby DO Discharge Disposition: Home or Self Care 08/24/2024 9:41 PM EDT - 08/25/2024 3:33 AM EDT Emergency [facility] Emergency [address] [place] [address] Discharge Disposition: Home or Self Care 08/24/2024 Procedure Pass [facility], Ct Scan - [address] [address] 08/22/2024 11:00 AM EDT Infusion [facility] Medical Infusion [facility] [address] [place] [address] Aaron Cheng MD Selective deficiency of IgG subclasses (Primary Dx) 07/25/2024 4:14 PM EDT - 07/26/2024 3:09 PM EDT Emergency [facility] Emergency [address] [place] [address] Teo Kirby DO Andrade, Olyn Amanda, MD Discharge Disposition: [facility] 07/24/2024 Orders Only [facility] Pharmacy Department Virtual Deparment [address] [place] [address] Aaron Cheng MD 07/24/2024 Orders Only Virtual Department [address] [place] [address] Aaron Cheng MD Selective deficiency of IgG subclasses (Primary Dx) from Last 3 Months Immunizations Immunization Administration Dates Next Due COVID-19 (Pre-12/04) Moderna Vaccine, mRNA, PF 10/22/2021,05/27/2020,04/29/2020 Hepatitis B Adult 04/01/2009,10/22/2008,09/22/19 09 INFLUENZA, SPLIT VIRUS, TRIVALENT PF 10/31/2023, 11/10/2018 INFLUENZA, SPLIT VIRUS, TRIV ALENT W/ PRESERVATIVE IM 11/19/2019,12/05/2017,11/23/2016,2015,12/11/2013,11/30/2012,10/09/2011,0 10/20/2010,11/21/2009,10/23/2008 Influenza Nasal, Unspecified Formulation 11/26/2013 Influenza Quadrivalent Prese rvative Free IM 11/20/2022(Deferred: Contraindication - pt unsure if she has already gotten vaccinated),01/28/2022,12/10/2020,11/29(Deferred: Patient Refused),11/26/2018(Deferred: No Longer Needed),11/21/2017 Influenza Quadrivalent w/ Preservative IM 10/14/2019 Influenza, Unspecified Formulation 06/28,10/30/2015,01/21/2013,2007,12/26/2006,12/05/2004,11/12/2003,1 02/24/2002,11/27/2001,01/11/2001, 000 Novel [id number], Injectable 12/23/2008 Pneumococcal conjugate PCV13 11/23/2016 Pneumococcal conjugate PCV20 10/22/2023 Pneumococcal polysaccharide PPSV23 04/09/2014,,11/27/2001 Td (adult),2 Lf Tetanus Toxo id, PF, Adsorbed 05/26/2020 Td, unspecified formulation 06/30/2002 Tdap 06/01/2018,04/25/2013,03/24/2010 Zoster recombinant 02/11/2021,09/07/2020 Family History Medical History Relation Comments Diabetes mellitus Mother Relation Status Comments Father Mother Social History Tobacco Use Types Packs/Day Years Used Date Smoking Tobacco: Former Cigarettes Q uit: 2011 Smokeless Tobacco: Never Tobacco Cessation:Counseling Given: No Alcohol Use Standard Drinks/Week Comments No 0 [...] your housing situation today? I have vero zayas 10/07/2024 How many times have you move [...] Orientation Straight 02/09/2018 1: 15 PM EST Last Filed Vital Signs Vital Sign Reading Time Taken Comments Blood Pressure 141/78 10/17/2024 2:12 PM EDT Pulse 77 10/17/2024 2:12 PM EDT Temperature 36.7 C (98 F) 10/17/2024 11:00 AM EDT Respiratory Rate 20 10/17/2024 11:0 0 AM EDT Oxygen Saturation 97% 10/17/2024 2:12 PM EDT Inhaled Oxygen Concentration - - Weight 79.8 kg (175 lb 14.8 oz) 10/07/2024 7:00 AM EDT Height 154.9 cm (5' 0.98 ) 10/07/2024 7:00 AM ED T Body Mass Index 33.26 10/07/2024 7:00 AM EDT Plan of Treatment Upcoming Encounters Date Type Department Care Team (Late st Contact Info) Description 11/07/2024 11:00 AM EDT Infusion [facility] [address] [address] Aaron Cheng MD [address] [place] [address] 12/01/2024 11:00 AM EDT Infusion [facility] [address] [address] Aaron Cheng MD [address] [place] [address] 12/22/2024 11:00 AM EST Infusion [facility] [address] [address] Aaron Cheng MD [address] [place] [address] 01/13/2025 11:00 AM EST Infusion [facility] [address] [address] Aaron Cheng MD [address] [place] [address] 02/03/2025 11:00 AM EST Infusion [facility] [address] [address] Aaron Cheng MD [address] [place] [address] 02/24/2025 11:00 AM EST Infusion [facility] [address] [address] Aaron Cheng MD [address] [place] [address] Health Maintenance Due Date Last Done Comments DEPRESSION SCREENING 1974 SMOKING Hx and SMOKELESS TOBACCO SCREENING 09/09/1975 HEPATITIS C SCREENING 1980 HIV ONE-TIME SCREENING (18-65 YEARS) 1980 PAP SMEAR 09/09/1983 COLOGUARD 09/09/2007 COLONOSCOPY 09/09/2007 COLORECTAL CANCER SCREENING 09/09/2007 FIT TEST 09/09/2007 FOBT 09/09/2007 SIGMOIDOSCOPY 09/09/2007 VIRTUAL COLONOSCOPY 09/09/2007 RSV VACCINE (1 - Risk 60-74 years 1-dose series) 2022 MAMMOGRAM 11/10/2023 11/09/2021, 08/13, 11/05/2017, Additional history exists DIABETIC EYE EXAM 07/03/2024 INFLUENZA VACCINE (#1) 2024 , 01/28/2022, 12/10/2020, Additional history exists COVID-19 VACCINE ( season) 2024 10/22/2021, 10/22/2021, 06/11/2021, Additional history exists LIPID PANEL 12/07/2024 12/08/2023, 10/15, 11/26/2018 HEMOGLOBIN A1C 01/24/2025 07/25/2024, 11/13, 11/11/2022, Additional history exists BLOOD PRESSURE 04/16/2025 10/17/2024 CARBAMAZEPINE (TEGRETOL) LEVEL 10/06/2025 10/06/2024, 09/21/2024, 12/10/2023, Additional history exists CREATININE LEVEL 10/06/2025 10/06/2024, , 09/28/2024, Additional history exists POTASSIUM LEVEL 10/06/2025 10/06/2024, 09/13, 09/28/2024, Additional history exists Adult Td,Tdap Booster 05/26/2030 05/26/2020 , 06/01/2018, 04/25/2013, Additional history exists ZOSTER VACCINES Completed 02/11/2021, 09/07/2020 PNEUMOCOCCAL VACCINES (50+ years) Completed 10/22/2023, 11/23/2016, 04/09/2014, Additional history exists HEPATITIS A VACCINES Aged Out No long er eligible based on patient's age to complete this topic HIB VACCINES Aged Out No longer eligi ble based on patient's age to complete this topic MENINGOCOCCAL VACCINES (ACWY) Aged Out No longer eligible based on patient's age to complete this topic MENINGOCOCCAL VACCINES (B) Aged Out N o longer eligible based on patient's age to complete this topic Medical Devices Implanted Type Area Mortgage Loan Counselor Device Identifier Shelf Expiration Date Model / Serial / Lot Stent Ureteral 7frx22 To 30cm Double Pigtail Suture Stretch Vl Positioner - [id number] Implanted:Qty: 1 on 11/26/2020 by Pérez Hall MD at [facility] Right: Ureter [employer] 05/08/2022 [id number] / / [id number] Procedures Procedure Name Priority Date/Time Associated Diagnosis Comments CARBAMAZEPINE (TEGRETOL) LEVEL STAT 10/06/2024 7:27 PM EDT SALICYLATES STAT 10/06/2024 7:27 PM EDT ACETAMINOPHEN LEVEL STAT 10/06/2024 7 :27 PM EDT ETHANOL, BLOOD STAT 10/06/2024 7:27 PM EDT LFTS (HEPATIC PANEL) STAT 10/06/2024 7:27 PM EDT BASIC METABOLIC PANEL STAT 10/06/2024 7:27 PM EDT CBC AND DIFFERENTIAL STAT 10/06/2024 7:27 PM EDT TOXICOLOGY SCREEN, URINE STAT 10/06/2024 6:43 PM EDT SALICYLATES STAT 10/05/2024 6:22 PM EDT ACETAMINOPHEN LEVEL STAT 10/05/2024 6 :22 PM EDT ETHANOL, BLOOD STAT 10/05/2024 6:22 PM EDT LFTS (HEPATIC PANEL) STAT 10/05/2024 6:22 PM EDT BASIC METABOLIC PANEL STAT 10/05/2024 6:22 PM EDT CBC AND DIFFERENTIAL STAT 10/05/2024 6:22 PM EDT TOXICOLOGY SCREEN, URINE STAT 10/05/2024 6:04 PM EDT TROPONIN STAT 09/28/2024 5:16 PM EDT TROPONIN STAT 09/28/2024 4:40 PM EDT PHOSPHORUS STAT 09/28/2024 4:40 PM EDT MAGNESIUM STAT 09/28/2024 4:40 PM EDT BASIC METABOLIC PANEL STAT 09/28/2024 4:40 PM EDT CBC AND DIFFERENTIAL STAT 09/28/2024 4:40 PM EDT ECG 12-LEAD STAT 09/28/2024 3:20 PM EDT CREATININE (RANDOM URINE) Routine 09/23/2024 10:40 AM EDT Selective deficiency of IgG subclasses URINALYSIS W/REFLEX URINE CULTURE STAT 09/21/2024 4:35 PM EDT CARBAMAZEPINE (TEGRETOL) LEVEL STAT 09/21/2024 3:26 PM EDT LFTS (HEPATIC PANEL) STAT 09/21/2024 3:26 PM EDT BASIC METABOLIC PANEL STAT 09/21/2024 3:26 PM EDT CBC AND DIFFERENTIAL STAT 09/21/2024 3:26 PM EDT ECG 12-LEAD STAT 09/21/2024 2:[address] ABDOMEN/PELVIS (KIDNEY STONE) WITHOUT CONTRAST Routine 09/15/2024 11:10 PM EDT URINE SEDIMENT STAT 09/15/2024 10:44 PM EDT URINALYSIS W/REFLEX URINE CULTURE STAT 09/15/2024 10:44 PM EDT URINE CULTURE Routine 09/15/2024 10:44 PM EDT LIPASE STAT 09/15/2024 7:05 PM EDT LFTS (HEPATIC PANEL) STAT 09/15/2024 7:05 PM EDT BASIC METABOLIC PANEL STAT 09/15/2024 7:05 PM EDT CBC AND DIFFERENTIAL STAT 09/15/2024 7:05 PM EDT URINALYSIS W/REFLEX URINE CULTURE STAT 08/25/2024 2:[address] ABDOMEN/PELVIS WITHOUT CONTRAST Routine 08/24/2024 10:57 PM EDT LIPASE STAT 08/24/2024 10:02 PM EDT LFTS (HEPATIC PANEL) STAT 08/24/2024 10:02 PM EDT CBC AND DIFFERENTIAL STAT 08/24/2024 10:02 PM EDT BASIC METABOLIC PANEL STAT 08/24/2024 10:02 PM EDT TOXICOLOGY SCREEN, URINE STAT 07/26/2024 11:31 AM EDT POCT GLUCOSE Routine 07/26/2024 10:46 AM EDT HEMOGLOBIN A1C Routine 07/25/2024 5:54 PM EDT MAGNESIUM STAT 07/25/2024 5:54 PM EDT LFTS (HEPATIC PANEL) STAT 07/25/2024 5:54 PM EDT BASIC METABOLIC PANEL STAT 07/25/2024 5:54 PM EDT CBC AND DIFFERENTIAL STAT 07/25/2024 5:54 PM EDT LIPID PANEL Routine 12/08/2023 6:37 AM EDT BI MAMMOGRAM OUTSIDE (NO INTERPRETATION) Routine 11/09/2021 12:00 AM EDT from Last 3 Months or Most Recently Relevant to Health Maintenance Results * Ethanol, blood (10/06/2024 7:27 PM EDT) Only the most recent of2 resultswithin the time period is included. ETHANOL <10 <10 mg/dL [facility] Blood 10/06/2024 7:27 PM EDT 10/06/2024 7:33 PM EDT us Phillip Rico MD LAB BLOOD ORDERABLES Final Result [address] [address] * LFTs (hepatic panel) (10/06/2024 7:27 PM EDT) Only the most recent of6 resultswithin the time period is included. ALKALINE PHOSPHATASE 107 39 - 117 U/L [facility] TOTAL BILIRUBIN <0.2 0.0 - 1.2 mg/dL [facility] DIRECT BILIRUBIN <0.1 0.0 - 0.2 mg/dL [facility] Bilirubin (Indirect) NOT CALCULATED 0 - 1.5 mg/dL [facility] AST 16 0 - 37 U/L [facility] ALT 12 0 - 40 U/L [facility] TOTAL PROTEIN 7.3 6.5 - 8.0 g/dL [facility] ALBUMIN 3.9 3.9 - 4.8 g/dL [facility] GLOBULIN 3.4 1 - 4.8 g/dL [facility] A/G Ratio 1.15 1.00 - 4.80 RATIO [facility] Blood 10/06/2024 7:27 PM EDT 10/06/2024 7:33 PM EDT us Phillip Rico MD LAB BLOOD ORDERABLES Final Result [facility] [address], [place] [id number] * CBC and differential (10/06/2024 7:27 PM EDT) Only the most recent of7 resultswithin the time period is included. WBC 6.85 4.00 - 11.00 K/uL [facility] RBC 4.10 4.00 - 5.20 M/uL [facility] HGB 12.2 12.0 - 16.0 g/dL [facility] HCT 37.9 36.0 - 46.0 % [facility] PLT 273 150 - 450 K/uL [facility] MCV 92.4 80.0 - 100.0 fL [facility] MCH 29.8 27.0 - 31.0 pg [facility] MCHC 32.2 32.0 - 36.0 g/dL [facility] RDW 13.3 11.5 - 14.5 % [facility] MPV 10.3 8.4 - 12.0 fL [facility] NRBC 0.00 0.00 /100 WBCs [facility] ABSOLUTE NRBC 0.00 0.00 K/uL [facility] DIFF METHOD Auto [facility] NEUTS 54.2 48.0 - 76.0 % [facility] LYMPHS 37.5 18.0 - 41.0 % [facility] MONOS 6.9 4.0 - 11.0 % [facility] EOS 0.9 0.0 - 5.0 % [facility] BASOS 0.4 0.0 - 1.5 % [facility] Granulocytes, immature (%) 0.1 0.0 - 0.9 % [facility] ABSOLUTE NEUTS 3.71 1.92 - 7.60 K/uL [facility] ABSOLUTE LYMPHS 2.57 0.72 - 4.10 K/uL [facility] ABSOLUTE MONOS 0.47 0.16 - 1.10 K/uL [facility] ABSOLUTE EOS 0.06 0.00 - 0.50 K/uL [facility] ABSOLUTE BASOS 0.03 0.00 - 0.15 K/uL [facility] Granulocytes, immature 0.01 0.00 - 0.09 K/uL [facility] Blood 10/06/2024 7:27 PM EDT 10/06/2024 7:33 PM EDT Phillip Rico MD LAB BLOOD ORDERABLES Final Result Performing Organization Address [facility]/ZIP Co de Phone Number [address] [address] * (ABNORMAL) Acetaminophen level (10/06/2024 7:27 PM EDT) Only the most recent of2 resultswithin the time period is included. ACETAMINOPHEN <5.0(L) 15.0 - 30.0 ug/mL [facility] Blood 10/06/2024 7:27 PM EDT 10/06/2024 7:33 PM EDT Phillip Rico MD LAB BLOOD ORDERABLES Final Result Performing Organization Address City/[facility]/ZIP Co de Phone Number [address] [address] * (ABNORMAL) Salicylates (10/06/2024 7:27 PM EDT) Only the most recent of2 resultswithin the time period is included. SALICYLATES <0.3(L) 2.8 - 19.9 mg/dL [facility] Blood 10/06/2024 7:27 PM EDT 10/06/2024 7:33 PM EDT us Phillip Rico MD LAB BLOOD ORDERABLES Final Result Performing Organization Address City/[facility]/ZIP Co de Phone Number [address] [address] * (ABNORMAL) Carbamazepine (Tegretol) level (10/06/2024 7:27 PM EDT) Only the most recent of2 resultswithin the time period is included. CARBAMAZEPINE 7.7(L) 8.0 - 12.0 ug/mL [facility] Blood 10/06/2024 7:27 PM EDT 10/06/2024 7:33 PM EDT us Phillip Rico MD LAB BLOOD ORDERABLES Final Result Performing Organization Address [facility] Co de Phone Number [address] [address] * (ABNORMAL) Basic metabolic panel (10/06/2024 7:27 PM EDT) Only the most recent of7 resultswithin the time period is included. SODIUM 142 133 - 146 mmol/L [facility] CHLORIDE 107 96 - 108 mmol/L [facility] POTASSIUM 3.6 3.3 - 5.1 mmol/L [facility] CO2 21 21 - 35 mmol/L [facility] BUN 9 6 - 19 mg/dL [facility] CREATININE 0.50 0.5 - 1.5 mg/dL [facility] GLUCOSE 107(H) 70 - 99 mg/dL [facility] CALCIUM 9.0 8.4 - 10.3 mg/dL [facility] EGFR 106 >59 mL/min/1.7 3m2 [facility] Comment:Estimated glomerular filtration rate calculated using the CKD-EPI refit equation. ANION GAP 18 10 - 20 mmol/L [facility] Blood 10/06/2024 7:27 PM EDT 10/06/2024 7:33 PM EDT Result Jazmine Rico MD LAB BLOOD ORDERABLES Final Result [facility] [address] [place] [address] * Toxicology screen, urine (10/06/2024 6:43 PM EDT) Only the most recent of3 resultswithin the time period is included. URINE CANNABINOIDS NONE DETECTED NONE DETECTED [facility] Comment:Cutoff: 50 ng/mL URINE COCAINE METAB NONE DETECTED NONE DETECTED [facility] Comment:Cutoff: 300 ng/mL URINE AMPHETAMINES NONE DETECTED NONE DETECTED [facility] Comment:Cutoff: 1000 ng/mL URINE METHADONE NONE DETECTED NONE DETECTED [facility] Comment:Cutoff: 300 ng/mL URINE OPIATES NONE DETECTED NONE DETECTED [facility] Comment:Cutoff: 300 ng/mL URINE PHENCYCLIDINE NONE DETECTED NONE DETECTED [facility] Comment:Cutoff: 25 ng/mL URINE OXYCODONE NONE DETECTED NONE DETECTED [facility] Comment:Cutoff: 300 ng/mL URINE BARBITURATES NONE DETECTED NONE DETECTED [facility] Comment:Cutoff: 200 ng/mL URINE BENZODIAZEPINE NONE DETECTED NONE DETECTED [facility] Comment:Cutoff: 200 ng/mL URINE BUPRENORPHINE NONE DETECTED NONE DETECTED [facility] Comment:Cutoff: 5 ng/mL Fentanyl, urine NONE DETECTED NONE DETECTED [facility] Comment: Cutoff: 5 ng/mL INTERPRETATION FOR TOXICOLOGY PANEL: These results are unconfirmed and should be used for Medical Treatment purposes only. Urine (Urine) 10/06/2024 6:4 3 PM EDT 10/06/2024 6:53 PM EDT us Phillip Rico MD URINE ORDERABLES Final Resu lt [facility] [address] [place] [address] * Troponin (09/28/2024 5:16 PM EDT) Only the most recent of2 resultswithin the time period is included. Troponin-T, HS Gen5 <6 0 - 9 ng/L [facility] Blood 09/28/2024 5:16 PM EDT 09/28/2024 5:19 PM EDT Amador Bob MD, MPH, MAXIME LAB BLOOD O RDERABLES Final Result Performing Organization Address [facility] Co de Phone Number [address] [address] * Phosphorus (09/28/2024 4:40 PM EDT) PHOSPHORUS 3.2 2.7 - 4.5 mg/dL [facility] Blood 09/28/2024 4:40 PM EDT 09/28/2024 4:43 PM EDT Amador Bob MD, MPH, MAXIME LAB BLOOD O RDERABLES Final Result Performing Organization Address [facility] de Phone Number [address] [address] * Magnesium (09/28/2024 4:40 PM EDT) Only the most recent of2 resultswithin the time period is included. MAGNESIUM 1.9 1.6 - 2.6 mg/dL [facility] Blood 09/28/2024 4:40 PM EDT 09/28/2024 4:43 PM EDT Amador Bob MD, MPH, MAXIME LAB BLOOD O RDERABLES Final Result Performing Organization Address [facility] Co de Phone Number [address] [address] * ECG 12-LEAD (09/28/2024 3:20 PM EDT) Only the most recent of2 resultswithin the time period is included. Ventricular Rate EKG/MIN 78 BPM [facility] Atrial Rate 78 BPM [facility] MI Interval 182 ms [facility] QRS Duration 92 ms [facility] QT Interval 384 ms [facility] QTC Interval 437 ms [facility] P Era 80 degrees [facility] R Wave Era 38 degrees [facility] T Wave Era 80 degrees [facility] 09/28/2024 3:20 PM EDT 09/29/2024 1:58 PM EDT Narrative [facility] - 09/29/2024 1:58 PM EDT Normal sinus rhythm Normal ECG When compared with ECG of 21-Sep-2024 14:04, No significant change was found Confirmed by Linden Julien ([id number]) on 09/29/2024 1:58:08 PM us Josh Grayson MD ECG ORDERABLES Final Re sult Performing Organization Address [facility]/ZIP Co de Phone Number [email or web address] * Creatinine, random urine (09/23/2024 10:40 AM EDT) URINE CREATININE 23 mg/dL [facility] Urine 09/23/2024 10:4 0 AM EDT 09/23/2024 11:44 AM EDT us Aaron Cheng MD URINE ORDERABLES Final Result Performing Organization Address [facility]/ZIP Co de Phone Number [address] [address] * Urinalysis w/reflex Urine Culture (09/21/2024 4:35 PM EDT) Only the most recent of3 resultswithin the time period is included. COLOR Yellow Yellow [facility] CLARITY Clear [facility] GLUCOSE Negative Negative [facility] BILI Negative Negative [facility] KETONES Negative Negative [facility] SPECIFIC GRAVITY 1.015 1.005 - 1.030 [facility] BLOOD Negative Negative [facility] PH 6.5 5.0 - 8.0 [facility] Protein-UA Negative Negative [facility] NITRITE Negative Negative [facility] Leukocyte esterase, ur Negative Negative [facility] Urine (Urine) 09/21/2024 4:3 5 PM EDT 09/21/2024 4:44 PM EDT us Phillip Rico MD URINE ORDERABLES Final Resu lt [facility] [address] [place] [address] * CT ABDOMEN/PELVIS (KIDNEY STONE) WITHOUT CONTRAST (09/15/2024 11:10 PM EDT) Anatomical Region Laterality Modality Abdomen, Pelvis Computed Tomogra phy 09/16/2024 12:0 1 AM EDT Impressions 09/16/2024 12:57 AM EDT 1. No acute abnormality in the abdomen or pelvis within the limits of a noncontrast exam. 2. Nonobstructing 2 mm left renal stone. No ureteral stones or hydronephrosis. ATTESTATION: I, Dylon Dorsey as teaching physician, have reviewed the images for this case and if necessary edited the report originally created by Javier Mi. Narrative 09/16/2024 12:[address] ABDOMEN/PELVIS (KIDNEY STONE) WITHOUT CONTRAST Referring clinician's provided indication for this examination in Epic: * Flank pain, kidney stone suspected TECHNIQUE: Multidetector-row CT of the abdomen and pelvis was performed without administration of intravenous contrast using tailored dose modulation techniques. Images were reconstructed in the axial, coronal, and sagittal planes. COMPARISON: CT ABDOMEN/PELVIS WITHOUT CONTRAST FINDINGS: The study is limited by lack of intravenous contrast, particularly for the evaluation of the solid organs and vasculature. Lower Chest: No consolidation or pleural effusions. Tiny hiatal hernia. Liver: No appreciable focal lesions. Biliary: Status post cholecystectomy. Mild prominence of the bile ducts likely related to postcholecystectomy reservoir effect. Spleen: No splenomegaly or focal lesions. Pancreas: No masses or ductal dilatation. Adrenal Glands: No nodules. Kidneys/Ureters: 2 mm nonobstructing stone in the left kidney. No ureteral stones or hydronephrosis. Bowel: Normal appendix. No bowel dilatation or wall thickening. Few colonic diverticula. Duodenal diverticulum. Peritoneum/Retroperitoneum: No masses, pneumoperitoneum, or fluid. Lymph Nodes: No lymphadenopathy. Pelvic Organs/Bladder: Hysterectomy. No mass. Vessels: No abdominal aortic aneurysm. Overall moderate atherosclerosis. Bones/Soft Tissues: Postoperative changes in the anterior pelvic wall. Mild degenerative changes. No aggressive appearing osseous lesions. Procedure Note Dylon Dorsey MD - 09/16/2024 CT ABDOMEN/PELVIS (KIDNEY STONE) WITHOUT CONTRAST Referring clinician's provided indication for this examination in Epic: *Flank pain, kidney stone suspected TECHNIQUE: Multidetector-row CT of the abdomen and pelvis was performedwithout administration of intravenous contrast using tailored dosemodulation techniques. Images were reconstructed in the axial, coronal,and sagittal planes. COMPARISON: CT ABDOMEN/PELVIS WITHOUT CONTRAST FINDINGS: The study is limited by lack of intravenous contrast, particularly for theevaluation of the solid organs and vasculature. Lower Chest: No consolidation or pleural effusions. Tiny hiatal hernia. Liver: No appreciable focal lesions. Biliary: Status post cholecystectomy. Mild prominence of the bile ductslikely related to postcholecystectomy reservoir effect. Spleen: No splenomegaly or focal lesions. Pancreas: No masses or ductal dilatation. Adrenal Glands: No nodules. Kidneys/Ureters: 2 mm nonobstructing stone in the left kidney. No ureteralstones or hydronephrosis. Bowel: Normal appendix. No bowel dilatation or wall thickening. Fewcolonic diverticula. Duodenal diverticulum. Peritoneum/Retroperitoneum: No masses, pneumoperitoneum, or fluid. Lymph Nodes: No lymphadenopathy. Pelvic Organs/Bladder: Hysterectomy. No mass. Vessels: No abdominal aortic aneurysm. Overall moderate atherosclerosis. Bones/Soft Tissues: Postoperative changes in the anterior pelvic wall.Mild degenerative changes. No aggressive appearing osseous lesions. IMPRESSION: 1. No acute abnormality in the abdomen or pelvis within the limits of anoncontrast exam. 2. Nonobstructing 2 mm left renal stone. No ureteral stones orhydronephrosis. ATTESTATION: I, Dylon Dorsey as teaching physician, have reviewed theimages for this case and if necessary edited the report originally createdby Javier Mi. us Teo Kirby DO IMG CT ABD/PELVIS Final Resul t * (ABNORMAL) Urine Culture (09/15/2024 10:44 PM EDT) Special Requests None Reflexed from [id number] 09/16/2024 12:37 AM EDT [facility] Urine Culture >100,000 colony forming units per mL KLEBSIELLA PNEUMONIAE(A) 09/18/2024 7:25 AM EDT [facility] Urine 09/15/2024 10:4 4 PM EDT 09/16/2024 12:15 AM EDT Narrative Organism Antibiotic Method Susceptibility Klebsiella pneumoniae Ampicillin JUANITO METHOD <=2: Resistant Klebsiella pneumoniae Amoxicillin + Clavulanate JUANITO ME THOD <=2: Susceptible Klebsiella pneumoniae Ampicillin + Sulbactam JUANITO METHO D <=2: Susceptible Klebsiella pneumoniae Cefazolin JUANITO METHOD <=4: Susceptible Klebsiella pneumoniae Cefepime JUANITO METHOD <=1: Susceptible Klebsiella pneumoniae Ceftazidime JUANITO METHOD <=1: Susceptible Klebsiella pneumoniae Ceftriaxone JUANITO METHOD <=1: Susceptible Klebsiella pneumoniae Ciprofloxacin JUANITO METHOD <=0.25: Susceptible Klebsiella pneumoniae Extended Spectrum B-lactamase HI C METHOD Negative Klebsiella pneumoniae Gentamicin JUANITO METHOD <=1: Susceptible Klebsiella pneumoniae Levofloxacin JUANITO METHOD <=0.12: Susceptible Klebsiella pneumoniae Nitrofurantoin JUANITO METHOD 64: Intermediate Klebsiella pneumoniae Piperacillin-tazobactam JUANITO METH OD <=4: Susceptible Klebsiella pneumoniae Trimethoprim/sulfamethoxazole HI C METHOD <=20: Susceptible Comment: Phillip Rico MD MICROBIOLOGY - GENERAL ORDE [facility] Final Result [address] [address] * (ABNORMAL) Urine sediment (09/15/2024 10:44 PM EDT) WBC 21-49(A) NONE SEEN /hpf [facility] RBC NONE SEEN NONE SEEN /hpf [facility] URINE EPITHELIAL 0-4(A) NONE SEEN [facility] MUCUS NONE SEEN NONE SEEN /hpf [facility] BACTERIA 1+(A) NONE SEEN /hpf [facility] 09/15/2024 10:4 4 PM EDT 09/16/2024 12:15 AM EDT us Phillip Rico MD URINE ORDERABLES Final Resu lt Performing Organization Address [facility]/ZIP Co de Phone Number [address] [address] * Lipase (09/15/2024 7:05 PM EDT) Only the most recent of2 resultswithin the time period is included. LIPASE 58 16 - 63 U/L [facility] Blood 09/15/2024 7:05 PM EDT 09/15/2024 7:12 PM EDT us Phillip Rico MD LAB BLOOD ORDERABLES Final Result Performing Organization Address [facility] Co de Phone Number [address] [address] * CT ABDOMEN/PELVIS WITHOUT CONTRAST (08/24/2024 10:57 PM EDT) Anatomical Region Laterality Modality Abdomen, Pelvis Computed Tomogra phy 08/25/2024 1:00 AM EDT Impressions 08/25/2024 1:05 [address] EDT No acute CT findings in the abdomen or pelvis. Narrative 08/25/2024 1:[address] ABDOMEN/PELVIS WITHOUT CONTRAST Referring clinician's provided indication for this examination in Epic: * Abdominal pain, hernia suspected; * Bowel obstruction suspected TECHNIQUE: Multidetector-row CT of the abdomen and pelvis was performed without administration of intravenous contrast using tailored dose modulation techniques. Images were reconstructed in the axial, coronal, and sagittal planes. COMPARISON: CT ABDOMEN/PELVIS WITHOUT CONTRAST FINDINGS: ABDOMEN / PELVIS: Lower Chest: No consolidation or pleural effusions. Small hiatal hernia. Liver: No suspicious lesions. Biliary: Cholecystectomy. No biliary ductal dilatation. Pancreas: No ductal dilatation or peripancreatic inflammation. Spleen: No suspicious lesions. Bowel: Periampullary duodenal diverticulum. Normal caliber small bowel and colon. Noninflamed appendix. Endoscopy clip in the proximal transverse colon. Adrenal Glands: No suspicious nodules. Kidneys/Ureters: Tiny nonobstructing left superior pole stone. No obstructing stones or hydronephrosis. Mild symmetric perinephric fat stranding. A previously seen 5 mm stone in the lower pole of the left kidney is no longer visualized and may have passed at some indeterminate point in the interval. Pelvic Organs/Bladder: Hysterectomy. Peritoneum/Retroperitoneum: No free air or significant free fluid. Lymph Nodes: No suspicious lymphadenopathy by CT size criteria. Vessels: Aortic atherosclerosis. No aortic aneurysm. Bones/Soft Tissues: Mild multilevel degenerative changes of the spine. Ventral abdominal wall postsurgical changes. Procedure Note Dionte Maxwell MD - 08/25/2024 CT ABDOMEN/PELVIS WITHOUT CONTRAST Referring clinician's provided indication for this examination in Epic: *Abdominal pain, hernia suspected; * Bowel obstruction suspected TECHNIQUE: Multidetector-row CT of the abdomen and pelvis was performedwithout administration of intravenous contrast using tailored dosemodulation techniques. Images were reconstructed in the axial, coronal,and sagittal planes. COMPARISON: CT ABDOMEN/PELVIS WITHOUT CONTRAST FINDINGS: ABDOMEN / PELVIS: Lower Chest: No consolidation or pleural effusions. Small hiatal hernia. Liver: No suspicious lesions. Biliary: Cholecystectomy. No biliary ductal dilatation. Pancreas: No ductal dilatation or peripancreatic inflammation. Spleen: No suspicious lesions. Bowel: Periampullary duodenal diverticulum. Normal caliber small bowel andcolon. Noninflamed appendix. Endoscopy clip in the proximal transversecolon. Adrenal Glands: No suspicious nodules. Kidneys/Ureters: Tiny nonobstructing left superior pole stone. Noobstructing stones or hydronephrosis. Mild symmetric perinephric fatstranding. A previously seen 5 mm stone in the lower pole of the left kidney is nolonger visualized and may have passed at some indeterminate point in theinterval. Pelvic Organs/Bladder: Hysterectomy. Peritoneum/Retroperitoneum: No free air or significant free fluid. Lymph Nodes: No suspicious lymphadenopathy by CT size criteria. Vessels: Aortic atherosclerosis. No aortic aneurysm. Bones/Soft Tissues: Mild multilevel degenerative changes of the spine.Ventral abdominal wall postsurgical changes. IMPRESSION: No acute CT findings in the abdomen or pelvis. us Iggy P Bartus PA-C IMG CT ABD/PELVIS Final Resu lt * (ABNORMAL) POCT Glucose (07/26/2024 10:46 AM EDT) Glucose, POCT 113(H) 70 - 100 mg/dL [facility] 07/26/2024 10:4 6 AM EDT 07/26/2024 10:48 AM EDT Wendy Sinclair MD POINT OF CARE TEST ORDERA BLES Final Result Performing Organization Address City/[facility]/ZIP Co de Phone Number [address] [address] * Hemoglobin A1c (07/25/2024 5:54 PM EDT) HEMOGLOBIN A1C 5.8 4.3 - 5.8 % [facility] 07/25/2024 5:54 PM EDT 07/25/2024 5:59 PM EDT Maryann Perales PA-C LAB BLOOD ORDERABLES Fi nal Result Performing Organization Address [facility]/ZIP Co de Phone Number [address] [address] * (ABNORMAL) Lipid panel (12/08/2023 6:37 AM EDT) HDL 66 mg/dL [facility] Comment: Interpretation <40 mg/dL: Low HDL cholesterol (major risk factor for CHD) Greater than or equal to 60 mg/dL: High HDL cholesterol ( negative risk factor for CHD) HDL - cholesterol is affected by a number of factors, e.g. smoking, excerise, hormones, sex and age. CHOLESTEROL 192 0 - 240 mg/dL [facility] TRIGLYCERIDES 137 30 - 160 mg/dL [facility] LDL 99 50 - 129 mg/dL [facility] Comment: LDL levels in terms of risk for coronary heart disease: <100 mg/dL: Optimal 100-129 mg/dL: Near or above optimal 130-159 mg/dL: Borderline high 160-189 mg/dL: High >190 mg/dL: Very High CARDIAC RISK RATIO 2.9(L) 3.3 - 4.4 [facility] Blood 12/08/2023 6:37 AM EDT 12/08/2023 7:28 AM EDT us Julia Duncan MD LAB BLOOD ORDERABLES Final Re sult [facility] [address] [place] [address] * Mammogram Outside (No Interpretation) (11/09/2021 12:00 AM EDT) Narrative Astrid Manrique - 04/06/2023 2:37 PM EST This study is for PACS storage only and not for interpretation. Procedure Note Astrid Manrique - 04/06/2023 This study is for PACS storage only and not for interpretation. us Unknown Unknown IMG OUTSIDE IMAGING W/OUT INT ERPRETATION Final Result from Last 3 Months or Most Recently Relevant to Health Maintenance Insurance [facility] CARE MEDICARE REPLACEMENT MEDICARE PART A & B MEDICARE PART A & B CARE MEDICARE REPLACEMENT MEDICARE PART A & B MEDICARE PART A & B MEDICARE PART A & B Member Subscriber Plan / Payer ( fective 2012-Present) Name:Elizabeth Huang Relation to Subscriber:Self Name:Elizabeth Huang Payer ID:[id number] (NAIC) Group ID:[id number] Type:Medicare Address: [place] [id number] MEDICARE PART A & B Advance Directives For more information, please contact: [phone] (9AM - 5PM Priyanka/[place], Sunday-Sunday) * Full Code (Latest Code Status on File) Date Activated Date Inactivated Comments 11/25/2020 5:03 PM Question Answer Comments Code Status Confirmed With: Patient * Full Code (Presumed) Date Activated Date Inactivated Comments 09/04/2019 2:29 PM 11/25/2020 5:03 PM * Full Code (Presumed) Date Activated Date Inactivated Comments 11/25/2018 10:11 PM 12/02/2018 5:20 PM Care Teams Rug Underlay Machine Operator Relationship Specialty Start Date End Date Jenny Pugh MD [address] [address] [email or web address] PCP - General Family Medicine 08/22/24 Tamiko Manrique PA-C [address] [place] [address] [email or web address] Physician Office Support Clerk 11/14/23 Additional Source Comments The information contained in this document represents components of the legal health record. It is not the complete legal health record.[facility]
--- OUTSIDE RECORDS SUMMARY | 2024-10-21 14:45 | XMS_ITS | Encounter Summary ---
Author Organization [facility] Address [address] [place] [address] Care Team Providers Care Felting Machine Operator Helper Name Role Phone Clare Wilson Primary Care Provider [phone] Encounter Details Date Type Department Care Team (Late st Contact Info) Description 01/16/2024 Orders Only [facility] Surgery [address], [place] [id number] Jesus Gillis MD [address] [place] [address] Social History Tobacco Use Types Packs/Day Years [...] as of this encounter Plan of Treatment Not on file documented as of this encounter Visit Diagnoses Not on filedocumented in this encounter Care Teams Felting Machine Operator Helper Relationship Specialty Start Date End Date Clare Wilson [address] [place] [phone] PCP - General Family Medicine 09/10/23 documented as of this encounter
--- OUTSIDE RECORDS SUMMARY | 2024-10-21 14:45 | XMS_ITS | Continuity of Care Document ---
Author Name [facility], Medical Address [address] [place] [id number] Organization Unknown Address [address] [place] [address] Medications No known medications Problems No known problems
--- OUTSIDE RECORDS SUMMARY | 2024-10-21 14:45 | XMS_ITS ---
Author Organization [facility] on Care Team Providers Care Artistic Associate Name Role Phone Becca Cai Unavailable Unavailable Colton Cordoba Unavailable Unavailable Landen Lunsford Unavailable Unavailable Elizabeth Piedra Unavailable Unavailable Breanna Ortega Unavailable Unavailable Roxie Perez Unavailable Unavailable Allergies and adverse reactions Code CodeSystem Substance Reaction Severity StartDate Concern Status 62189 RXNORM Trimethoprim Morbilliform eruption (code- 748840233, SNOMED CT) Moderate 11/28/2022 active 68551 RXNORM Sulfamethoxazole Morbillifor m eruption (code- 375223500, SNOMED CT) Moderate 11/28/[address] Sulfa Antibiotics Morbillifo rm eruption (code- 497203458, SNOMED CT) Unknown 11/28/[address] Sodium Benzoate Severe 11/28/2022 a ctive Shell Fish Anaphylaxis (code- 30213383, SNOMED CT) Severe 11/28/2022 active 50133 RXNORM QUEtiapine Unknown 11/28/2022 active 8787 RXNORM Propranolol Unknown 11/28/2022 active 8591 RXNORM Potassium Chloride Severe 11/28/2022 ac tive 8516 RXNORM Polyethylene Glycol Severe 11/28/2022 active Onion Nausea (code- 094386684, SNOMED CT) Severe 11/28/2022 active 36264 RXNORM Nabumetone Morbilliform eruption (code- 719302142, SNOMED CT) Moderate 11/28/2022 active 7052 RXNORM Morphine Morbilliform eruption (code- 926887129, SNOMED CT) Moderate 11/28/2022 active Milk & Milk Products Nausea (code- 221409771, SNOMED CT) Moderate 11/28/[address] Iodinated Contra st Media Anaphylaxis (code- 54349965, SNOMED CT) Moderate 11/28/2022 active Fish Anaphylaxis (code- 06017049, SNOMED CT) Severe 11/28/2022 active Dyazide Unknown 11/28/2022 active 3640 RXNORM Doxycycline Nausea (code- 841114463, SNOMED CT) Unknown 11/28/2022 active 3356 RXNORM Dicloxacillin Morbilliform eruption (code- 703506880, SNOMED CT) Unknown 11/28/2022 active 2670 RXNORM Codeine Moderate 11/28/2022 active 64813 RXNORM Clavulanic Acid Nausea (code - 977422829, SNOMED CT) Unknown 11/28/2022 active Chocolate Nausea (code- 350074616, SNOMED CT) Moderate 11/28/2022 active 2231 RXNORM Cephalexin Nausea (code- 146098609, SNOMED CT) Moderate 11/28/2022 active 723 RXNORM Amoxicillin Nausea (code- 849831152, SNOMED CT) Unknown 11/28/2022 active Care Team Name Role Address Phone Organization Dates Landen CHENG [address] [place] [address] [address], [place], [address], [place]Office): : [facility] 11/28/2022 - 12/07/2022 Becca Cai [address] [place] [address], [place], [address], [place] (Office): [facility] 11/28/2022 - 12/07/2022 Colton Cordoba [address] [place] [address], [address], [place] (Office): [facility] 11/28/2022 - 12/07/2022 Elizabeth Piedra [address] [place] [address], [address], [place]Office[place] : [facility] 11/28/2022 - 12/07/2022 Breanna Ortega [facility] [address] [facility], [place], [address], [place]Office[place] : [facility] 11/28/2022 - 12/07/2022 Roxie Perez [address] [place] [address] [address], [place], [address], [place] (Office[place] : [facility] 11/28/2022 - 12/07/2022 Functional Status Warning: Section unavailable due to data not found error. Immunizations Immunization Status Vaccine Details Vaccine Code CodeSystem Date Notes Influenza completed Influenza, split virus, trivalent, injectable, contains preservative 141 CVX created date: 11/30/19 administ ered date: 01/29/20 22 verified by ShahiyaIS Pneumococcal Polysaccharide Vaccine (PPSV23) completed pneumococcal polysaccharide [...] administ ered date: 04/30/19 21 modernaverified by [employer] Shingrix completed zoster vaccine recombinant 187 CVX created date: 11/30/19 administ ered date: 02/12/20 21 verified by [employer] SARS-COV-2 (COVID-19 BOOSTER) completed SARS-COV-2 (COVID-19) vaccine, mRNA, spike protein, LNP, bivalent, preservative free, 50 mcg/0.5 mL or 25 mcg/0.25 mL dose 229 CVX created date: 11/30/19 administ ered date: 10/23/19 22 moderna bivalent boosterverified by [employer] SARS-COV-2 (COVID-19 BOOSTER) completed SARS-COV-2 (COVID-19) vaccine, mRNA, spike protein, LNP, preservative free, 100 mcg/0.5mL dose or 50 mcg/0.25mL dose 207 CVX created date: 11/30/19 administ ered date: 06/12/19 22 modernaverified by [employer] SARS-COV-2 (COVID-19 BOOSTER) completed SARS-COV-2 (COVID-19) vaccine, mRNA, spike protein, LNP, preservative free, 100 mcg/0.5mL dose or 50 mcg/0.25mL dose 207 CVX created date: 11/30/19 23 administ ered date: 01/03/20 21 modernaverified by [email or web address] Mental Status Section Date Assessment Total Score Description 12/07/2022 BIMS 15 cognitively int act CAM 0 No delirium ind icated PHQ-9 00 Problems Problem # Description Date of onset Resolved Date Code CodeSystem Concern Status 1 COVID-[address] active 2 ANEMIA, UNSPECIFIED [address] active 3 ANXIETY DISORDER, UNSPECIFIED [address] active 4 BIPOLAR DISORDER, UNSPECIFIED [address] active 5 CHRONIC IDIOPATHIC CONSTIPATION [address] active 6 CHRONIC OBSTRUCTIVE PULMONARY DISEASE, UNSPECIFIED [address] active 7 HERPESVIRAL INFECTION, UNSPECIFIED [address] active 8 IMMUNODEFICIENCY DUE TO DRUGS [address] active 9 MAJOR DEPRESSIVE DISORDER, RECURRENT, UNSPECIFIED [address] active 10 MIGRAINE, UNSPECIFIED, NOT INTRACTABLE, WITHOUT STATUS MIGRAINOSUS [address] active 11 PNEUMONIA, UNSPECIFIED ORGANISM [address] active 12 PSORIATIC ARTHRITIS MUTILANS [address] active 13 RIGHT TEMPOROMANDIBULAR JOINT DISORDER, UNSPECIFIED [address] active 14 SEPSIS, UNSPECIFIED ORGANISM [address] active 15 TYPE 2 DIABETES MELLITUS WITHOUT COMPLICATIONS [address] active Reason for Referral No Reasons for Referral Entered Social History Social History Observation Description Start Date End Date Code Code System Current Smoking Status Tobacco smoking consumption unknown 085537273 SNOMED CT Sex Assigned At Female 1960 00815-9 [facility] Gender Identity Sexual Orientation Vital Signs Code Code System Vitals Name Values and Units Timing Information 9279-1 [facility] Respiratory Rate Value=18.0 Units=/m in 12/07/2022 8462-4 [facility] Blood Pressure-Diastolic Value=76 Un its=mmHg 12/07/2022 8480-6 [facility] Blood Pressure-Systolic Uapuw=057 Un its=mmHg 12/07/2022 8310-5 [facility] Body Temperature Value=97.5 Units= F 12/07/2022 8867-4 [facility] Heart rate Value=77.0 Units=/min 26038-9 [facility] O2 % BldC Oximetry Value=96.0 Units= % 12/07/2022 62164-1 [facility] Pain Level Value=0.0 12/06/2022 95665-7 [facility] Weight Qdwdx=466.0 Units=Lbs 8302-2 [facility] Height Value=61.0 Units=Inches 11/29/2022
--- OUTSIDE RECORDS SUMMARY | 2024-10-21 14:45 | XMS_ITS | Encounter Summary ---
Author Organization [facility] Address [address] [facility] [address] [place] [address] Phone Care Team Providers Care Websphere Developer Name Role Phone Tamiko Manrique PA-C Unavailable [phone] Leandro Pugh MD Primary Care Provider [phone] Encounter Details Date Type Department Care Team (Late st Contact Info) Description 08/24/2024 Procedure [facility], Ct Scan - [facility] [address] [place] [address] Social History Tobacco Use Types Packs/Day Years [...] as food, clothing, or medical care? No 08/24/2024 In the past 12 months have y ou been in a relationship with a person who hurts, threatens, or tries to control you? No 08/24/2024 Are you denied basic needs s uch as food, clothing, or medical care? No 08/24/2024 In the past 12 months have y ou been in a relationship with a person who hurts, threatens, or tries to control you? No 08/24/2024 Comments No Sex and Gender Information Value Date Recorded Sex Assigned at Female 02/19/2017 9:43 AM EST Legal Sex Female 5:56 PM EST Gender Identity Female 11/10/2022 1:55 PM EDT Sexual Orientation Straight 02/09/2018 1: 15 PM EST documented as of this encounter Functional Status * Calculated C-SSRS Risk Score (Lifetime/Recent) Answer Date of Assessment Author No Risk Indicated 08/24/2024 10:24 PM EDT Ingrid Aguirre RN * [place] Suicide Severity Rating Scale (Screener/Recent Self-Report) Question Answer Date of Assessment Author 1. Wish to be (Past 1 Month) No 025 10:24 PM EDT Ingrid Gaelano RN 2. Non-Specific Active Suici faith Thoughts (Past 1 Month) No 08/24/2024 10:24 PM EDT Evita Galeano RN 6. Suicidal Behavior (Lifetime) No 10:24 PM EDT Ingrid Galeano, CAROL ANN documented as of this encounter Plan of Treatment Upcoming Encounters Date Type Department Care Team (Bharathi Contact Info) Description 11/07/2024 11:00 AM EDT Infusion [facility] Medical Infusion [address] [address] Aaron Cheng MD [address] [place] [address] 12/01/2024 11:00 AM EDT Infusion [facility] Medical Infusion [address] [address] Aaron Cheng MD [address] [place] [address] 12/22/2024 11:00 AM EST Infusion [facility] Infusion [address] [address] Aaron Cheng MD [address] [place] [address] 01/13/2025 11:00 AM EST Infusion [facility] Medical Infusion [address] [address] Aaron Cheng MD [address] [place] [address] 02/03/2025 11:00 AM EST Infusion [facility] Infusion [address] [address] Aaron Cheng MD [address] [place] [address] 02/24/2025 11:00 AM EST Infusion [facility] Infusion [address] [address] Aaron Cheng MD [address] [place] [address] documented as of this encounter Visit Diagnoses Not on filedocumented in this encounter Care Teams Websphere Developer Relationship Specialty Start Date End Date Leandro Pugh MD [address] [place] [address] [email or web address] PCP - General Family Medicine 08/22/24 Tamiko Manrique PA-C [address] [place] [address] [email or web address] Physician Supervisor Special Services 11/14/23 documented as of this encounter Additional Source Comments The information contained in this document represents components of the legal health record. It is not the complete legal health record.[facility]
--- OUTSIDE RECORDS SUMMARY | 2024-10-21 14:45 | XMS_ITS | Clinical Summary ---
Author Organization [facility] Address [address] [place] [address] Care Team Providers Care Rubber Goods Assembler Name Role Phone Lexa Wilsonsun Sharpe Primary Care Provider [phone] Allergies Active Allergy Reactions Criticality Noted Date [...] mellitus 12/05/2021 Hearing loss 12/05/2021 Overview (12/05/2021): [facility] History of total hysterectom y with bilateral salpingo-oophorectomy (BSO) 12/05/2021 Lower urinary tract infectious disease 2 Menopausal syndrome 12/05/2021 Obesity 12/05/2021 Osteoarthritis 12/05/2021 Pelvic pain in female 12/05/2021 Pernicious anemia 12/05/2021 Posttraumatic stress disorder 12/05/2021 Respiratory abnormalities 12/05/2021 Shoulder pain 12/05/2021 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 Dr Macdonald [facility] Asthma 06/16/2013 Overview (12/05/2021): Asthma Asthma Last Assessment & Plan: No acute symptoms, continue outpatient medications Seasonal allergic rhinitis 06/16/2013 Overview (12/05/2021): Allergic rhinitis Family History Medical History Relation Name Comments [...] 82 05/06/2020 9:10 AM EDT Temperature 36.3 C (97.4 F) 05/06/2020 9:10 AM EDT Respiratory Rate 20 05/06/2020 9:10 AM EDT Oxygen Saturation 99% 05/06/2020 9:10 AM EDT Inhaled Oxygen Concentration - - Weight 80.5 kg (177 lb 7.5 oz) 05/06/2020 7:00 A M EDT Height 154.9 cm (5' 1 ) 04/29/2020 3:04 PM EDT Body Mass Index 33.53 04/29/2020 3:04 PM EDT Plan of Treatment Health Maintenance Due Date Last Done Comments Cologuard 1960 Colon Cancer Screening 1960 Colonoscopy 1960 FOBT / Fit Test 1960 HIV Screening 1960 Hepatitis C Screening 1960 Sigmoidoscopy 1960 Ophthalmology Exam 1972 Urine Microalbumin 1972 RSV Vaccine (60+ years old a nd patients) (1 - Risk 60-74 years 1-dose series) 2022 Alcohol/Substance Use Screening 02/13/2024 Depression Screening and Follow-Up 02/13/2024 Social Drivers of Health Nia ual Screening 02/13/2024 CT Lung Cancer Screening (Baseline) 04/23/2024 04/24/2023 COVID-19 Vaccine (2024-2 6 season) 2024 10/22/2021, 06/11/2021, 01/02/2021, Additional history exists Influenza Vaccine (#1) 2024 , 01/28/2022, 12/10/2020, Additional history exists Hemoglobin A1C 01/24/2025 07/25/2024, 11/13, 11/11/2022 Basic Metabolic Panel 07/25/2025 07/25/2024 , 07/02/2024, 05/30/2024, Additional history exists Mammogram 12/08/2025 12/09/2023 DTaP,Tdap,and Td Vaccines (5 - Td or Tdap) 05/26/2030 05/26/2020, 06/01/2018, 04/25/2013, Additional history exists Hepatitis B Vaccines Completed 04/01/2009, 10/22/2008, 09/21/2008 Zoster Vaccines Completed 02/11/2021, 09/07/2020 CT Lung Cancer Screening (12 months, previous LungRADS 1 or 2) Discontinued 04/24/2023 Pneumococcal Vaccine: 50+ Years Completed 10/22/2023, 11/23/2016, 04/09/2014, Additional history exists Medical Devices Implanted Type Area Contact Center Rep Device Identifier Shelf Expiration Date Model / Serial / Lot Stonewall Suture Double Loaded With White/Blue White/Black Suturetape [employer] - [id number] Implanted:Qty: 1 on 04/02/2020 by Luis Minor MD at [facility] Implant Right: Shoulder [employer] 01/11/2023 [id number] / / [id number] Insurance [facility] [place] [id number] Advance Directives * Full Code (Latest Code Status on File) Date Activated Date Inactivated Comments 04/02/2020 10:29 AM 04/02/2020 6:36 PM Healthcare Agents on File Name Relationship Healthcare Agent [facility] p Communication Pilar Olvera Sister Next of Kin [phone] (Kamala griffin) Care Teams Rubber Goods Assembler Relationship Specialty Start Date End Date Clare Wilson [address] [place] [phone] PCP - General Family Medicine 09/10/23
== END 2024-10-21 13:16 | disposition home or self-care (01) ==
LOC: HO.RHES 12:19
PROVIDERS: PCP Family Medicine; Visit Provider Internal Medicine Rheumatology
DX: L40.50 Arthropathic psoriasis, unspecified (principal)
CPT/HCPCS: 99214; G2211

== ENCOUNTER 2024-10-21 12:18 | Outpatient (REF) | payer OTHER, SELFPAY | END 2024-10-21 12:19 | disposition home or self-care (01) | LOC: HO.HKASLDS 12:18 | PROVIDERS: PCP Family Medicine; Visit Provider Internal Medicine Rheumatology | DX: L40.50 Arthropathic psoriasis, unspecified (principal); Z79.631 Long term (current) use of antimetabolite agent; Z79.899 Other long term (current) drug therapy | CPT/HCPCS: 99212 ==

== ENCOUNTER 2024-12-05 11:55 | Outpatient (AMB) | payer OTHER, SELFPAY ==
--- OUTSIDE RECORDS SUMMARY | 2024-12-01 11:00 | XMS_ITS | Encounter Summary ---
Author Organization [facility] Address [address] [place] [address] [place] [address] Phone Care Team Providers Care Surface Water Manager Name Role Phone Tamiko Manrique PA-C Unavailable [phone] Jenny Pugh MD Primary Care Provider [phone] Reason for Visit * Treatment and Therapy Plan (Routine) - Authorized Specialty Diagnoses / Procedures Referred By Gerardo t Referred To Contact Diagnoses Selective deficiency of IgG subclasses Procedures GAMMAGARD LIQUID INJECTION, 500 MG AR IV INFUS HYDRATION INITIAL 31 MIN-1 HOUR - [address] Aaron Cheng MD [address] [place] [address] Phone: tel: fax: Aaron Cheng MD [address] [place] [address] Phone: tel: fax: Referral ID Status Reason Start Date Expiration Date V isits Requested Visits Authorized [id number] Authorized 10/17/2023 07/16/2038 99 99 Encounter Details Date Type Department Care Team (Late st Contact Info) Description 12/01/2024 11:00 AM EDT Infusion [facility] [address] [place] [address] Aaron Cheng MD [address] [place] [address] Selective deficiency of IgG subclasses (Primary Dx) [...] as food, clothing, or medical care? No 11/26/2024 In the past 12 months have y ou been in a relationship with a person who hurts, threatens, or tries to control you? No 11/26/2024 Are you denied basic needs s uch as food, clothing, or medical care? No 11/26/2024 In the past 12 months have y ou been in a relationship with a person who hurts, threatens, or tries to control you? No 11/26/2024 Comments No Sex and Gender Information Value Date Recorded Sex Assigned at Female 02/19/2017 9:43 AM EST Legal Sex Female 5:56 PM EST Gender Identity Female 11/10/2022 1:55 PM EDT Sexual Orientation Straight 02/09/2018 1: 15 PM EST documented as of this encounter Last Filed Vital Signs Vital Sign Reading Time Taken Comments Blood Pressure 140/77 12/01/2024 2:04 PM EDT Pulse 69 12/01/2024 2:04 PM EDT Temperature 36.6 C (97.9 F) 12/01/2024 2:04 PM EDT Respiratory Rate 18 12/01/2024 2:04 PM EDT Oxygen Saturation 98% 12/01/2024 2:04 PM EDT Inhaled Oxygen Concentration - - Weight - - Height - - Body Mass Index - - documented in this encounter Progress Notes * Felicitas Sepulveda RN - 12/01/2024 11:00 AM EDT Patient here for IVIG this cycle and appears well. Patient reports stable at this time. Mostly awake during infusion with several short naps. Tolerated Gammagard 30 gram infusion over rates of 40, 80, 160 with rate bumps every 30 minutes without any issues. documented in this encounter Plan of Treatment Upcoming Encounters Date Type Department Care Team (Late st Contact Info) Description 12/22/2024 11:00 AM EST Infusion [facility] Medical Infusion Center [address] [place] [address] Aaron Cheng MD [address] [place] [address] 01/13/2025 11:00 AM EST Infusion [facility] Medical Infusion Center [address] [place] [address] Aaron Cheng MD [address] [place] [address] 02/03/2025 11:00 AM EST Infusion [facility] Medical Infusion Center [address] [place] [address] Aaron Cheng MD [address] [place] [address] 02/24/2025 11:00 AM EST Infusion [facility] [address] [place] [address] Aaron Cheng MD [address] [place] [address] documented as of this encounter Visit Diagnoses Diagnosis Selective deficiency of IgG subclasses- Primary documented in this encounter Administered Medications Inactive Administered Medications - up to 3 most recent administrations Medication Order MAR Action Action Date Dose Rate Site acetaminophen (TYLENOL) tablet 325 mg 325 mg, Oral, Once, On Sun12/01/24 at 1130, For 1 dose, Administer at least 30 mins prior to principal medication.Indications:Select jesus deficiency of IgG subclasses Given 12/01/2024 11:12 AM EDT 325 mg diphenhydrAMINE (BENADRYL) injection 25 mg 25 mg, Intravenous, As needed, itching, hives or adjunct treatment for mild-moderate, or SEVERE reaction, Starting on Sun12/01/24 at 1110, For 2 doses, Begin with 25 mg. If patient has continued reaction, administer additional 25 mg.Indications:Selective deficiency of IgG subclasses Given 12/01/2024 11:20 AM EDT 25 mg immune globulin (human) (GAMMAGARD) IV injection 30 g 30 g, Intravenous, Once, On Sun12/01/24 at 1200, For 1 dose, DAY 1 (or single day) Gammagard Infusion rates and titration are based on patient s Actual Body Weight.Indications:Selective deficiency of IgG subclasses New Bag 12/01/2024 11:24 AM EDT 30 g 4 0 mL/hr documented in this encounter Additional Health Concerns Infection Onset Date Last Indicated Resolved Time CoV-Risk 11/26/2024 11/26/2024 documented as of this encounter Care Teams Surface Water Manager Relationship Specialty Start Date End Date [facility] [place] [address] [email or web address] PCP - General Family Medicine 08/22/24 Tamiko Manrique, CELIO [address] [place] [address] [email or web address] Physician Health Psychologist 11/14/23 documented as of this encounter Additional Source Comments The information contained in this document represents components of the legal health record. It is not the complete legal health record.[facility]
--- NOTE | 2024-12-05 11:56 | MHC.OFFVIS ---
Vital Signs 12/05/24 12:00 Height 5 ft 1 in Weight 180 lb BMI 34.0 BP 103/80 Blood Pressure Location Rt brachial Position Sitting Pulse 89 Pulse Source Pulse Oximeter Pulse Oximetry (%) 95 Oxygen Delivery Method Room Air Intake Visit Reasons: Shoulder pain Intake Note: Pain today 11/21 Structural Drafter Required: No Accompanied by: GAME PR[employer] Allergies cephalexin Allergy (Intermediate, Verified 12/05/24 12:01) Diarrhea Iodinated Contrast Media (IV CONTRAST) Allergy (Intermediate, Verified 12/05/24 12:01) DIFF BREATHING morphine (MORPHINE) Allergy (Intermediate, Verified 12/05/24 12:01) HIVES nabumetone (NABUMETONE) Allergy (Intermediate, Verified 12/05/24 12:01) HIVES sulfamethoxazole (From BACTRIM) Allergy (Intermediate, Verified 12/05/24 12:01) HIVES trimethoprim (From BACTRIM) Allergy (Intermediate, Verified 12/05/24 12:01) HIVES dicloxacillin Allergy (Unknown, Verified 12/05/24 12:01) Rash dyclonine Allergy (Unknown, Verified 12/05/24 12:01) Unknown propranolol (Inderal LA) Allergy (Unknown, Verified 12/05/24 12:01) unknown quetiapine (Seroquel) Allergy (Unknown, Verified 12/05/24 12:01) rash seafood Allergy (Unknown, Verified 12/05/24 12:01) Unknown Sulfa (Sulfonamide Antibiotics) Allergy (Unknown, Verified 12/05/24 12:01) hives amoxicillin (From Augmentin) Allergy (Verified 12/05/24 12:01) stomach pain clavulanic acid (From Augmentin) Allergy (Verified 12/05/24 12:01) stomach pain polyethylene glycol (From Golytely) Adverse Reaction (Severe, Verified 12/05/24 12:01) Hallucinations polyethylene glycol 3350 (From Golytely) Adverse Reaction (Severe, Verified 12/05/24 12:01) Hallucinations potassium chloride (From Golytely) Adverse Reaction (Severe, Verified 12/05/24 12:01) Hallucinations sodium (From Golytely) Adverse Reaction (Severe, Verified 12/05/24 12:01) Hallucinations sodium bicarbonate (From Golytely) Adverse Reaction (Severe, Verified 12/05/24 12:01) Hallucinations sodium chloride (From Golytely) Adverse Reaction (Severe, Verified 12/05/24 12:01) Hallucinations sodium sulfate (From Golytely) Adverse Reaction (Severe, Verified 12/05/24 12:01) Hallucinations doxycycline (DOXYCYCLINE) Adverse Reaction (Intermediate, Verified 12/05/24 12:01) NAUSEA & VOMITTING From INDERAL Allergy (Intermediate, Uncoded 09/03/24 12:12) RASH Codeine Sulfate Allergy (Unknown, Uncoded 09/03/24 12:12) Unknown HPI Comments Details: The patient is a 64-year-old female presenting with chronic left shoulder pain. The shoulder pain initially responded well to the placement of a Sprint PNS device in May, which was removed in July during a psychiatric admission at [facility]. The patient reports that the shoulder pain has returned and persists, affecting her daily activities and increased with certain movements, especially overhead or backside pocket reaches. An MRI of the shoulder was performed at [facility] in May 2023, revealing bursitis and potential calcific tendinopathy. The MRI was conducted without contrast due to an allergy. Patient is interested to undergo therapeutic left shoulder injection with ultrasound guidance as next steps. Denies any recent cough, cold, infection, fever or any other significant changes in medical history since last office visit. Past Procedures: 05/29/24: Left suprascapular Sprint PNS-60% ongoing pain relief 04/21/24:Diagnostic left suprascapular nerve block-100% pain for 4 days PRIOR: Patient is a 63 years old female with history of arthritis, spinal stenosis, anxiety and depression, recent left shoulder surgery 01/2024 at [facility], right carpal tunnel release 09/2022, COPD, asthma, presents today for initial evaluation of left elbow pain and left shoulder pain. She was referred to our office by [facility]. Patient reports cortisone injections are no longer effective and she is interested in alternative treatment options. She resides in [facility] and is accompanied by [employer] staff. Patient reports global left shoulder and elbow pain with localized tenderness to anterior and posterior aspects of shoulder and lateral aspect of elbow without any swelling, redness or warmth. Pain affects her daily activities and functioning, mood, sleep, social interactions and quality of life. Denies any neck pain, fever or chills, dizziness, chest pain, shortness of breath, numbness or tingling, bladder or bowel dysfunction or saddle anesthesia. Location: Left shoulder and left elbow Duration: Chronic pain >1 year, recent left shoulder surgery at [facility] Characteristics of symptom or complaint: aching, sharp, dull,tingling Aggravating or associated factors: Movements, ROM, lifting, pulling, overhead reaches, cold weather Relieving factors: Rest, avoiding using left arm, elevation, Tylenol, NSAID, gabapentin Treatment: Injections at Orthopedics, recent left shoulder surgery at [facility] Medical History RLQ abdominal pain Spinal stenosis TMJ (dislocation of temporomandibular joint) Migraine COPD (chronic obstructive pulmonary disease) Asthma Depression Anxiety Prediabetes Arthritis of right knee Umbilical hernia Chronic idiopathic constipation Surgical History History of shoulder surgery (~01/2024) History of carpal tunnel release Hx of colonoscopy History of esophagogastroduodenoscopy (EGD) Hx of hand surgery H/O eye surgery Hx of hysterectomy Family History Father Bone cancer Mother Diabetes Family/Other Family history of breast cancer Social History Household Members: None Housing: Apartment Are you a primary long term care administrator to a significant other at home: No Do you presently have visiting nurse or other home services: No Alcohol intake: current Alcohol intake frequency: does not drink Patient Tobacco Use Status: Former Tobacco user service: No Review of Systems Const All systems reviewed & are unremarkable except as noted in HPI and below Physical Exam Vital Signs: Last Vital Signs Pulse 89 12/05/24 12:00 BP 103/80 12/05/24 12:00 Pulse Ox 95 12/05/24 12:00 Oxygen Delivery Method Room Air 12/05/24 12:00 BMI result Body Mass Index 34.0 General: Appears afebrile. Alert and oriented. Mood and affect appropriate. Follows and participates in conversation appropriately. Respiratory effort is unlabored. No cough. Able to transition from sit to stand unassisted. Uses walker with seat for ambulation. Ambulates with bilaterally normal heel strike and toe off. Extrem General: Yes capillary refill normal, Yes no clubbing, cyanosis or edema and Yes no calf tenderness Left upper extremity: shoulder/upper arm (Limited ROM, increased pain with internal rotation. Limited overhead reach) Details: inspection abnormal, tenderness (global left shoulder) and other (well healed scars); no swelling, no ecchymosis, no crepitus and no unsual warmth Results Reviewed Results Reviewed: XR ELBOW, LEFT 03/12/23 CLINICAL INFORMATION: Pain in unspecified elbow. COMPARISON: None available. TECHNIQUE: AP, lateral, and oblique views of the left elbow. FINDINGS: Small rounded calcifications in the superficial soft tissues. Alignment preserved. Mild spurring along the dorsal aspect of the olecranon. Mild degenerative changes with spurring along the ventral aspect of the elbow. No significant joint effusion. IMPRESSION: 1. Mild degenerative changes. 2. Recommend follow up images in 10-14 days if fracture is suspected. Assessment & Plan Assessment & Plan (1) Left shoulder pain: Code(s): M25.512 - Pain in left shoulder Category: Medical (2) Calcific tendonitis of left shoulder: Code(s): M75.32 - Calcific tendinitis of left shoulder Category: Medical Plan Left shoulder MRI report 2023 reviewed with patient. Plan to schedule left therapeutic shoulder injection with ultrasound guidance for pain management. Expectations, risks and benefits were reviewed. Patient is aware she will be contacted to schedule this procedure. All questions and concerns have been answered and patient agreed with the treatment plan. Follow up for and sooner as needed. Patient was informed and verbally consented to the use of an ambient scribe for clinic note documentation during this visit. Coding Level of Care Code Est Pt Level 4 (42069) Complex EM visit Add On G2211 Diagnoses Left shoulder pain M25.512 Calcific tendonitis of left shoulder M75.32
[2024-12-05 12:00] VITALS: BP 103/80; PULSE 89; O2SAT 95; BMI 34.0
--- OUTSIDE RECORDS SUMMARY | 2024-12-05 14:12 | XMS_ITS | Encounter Summary ---
Author Organization [facility] Address [address] [place] [address] [place] [address] Phone Care Team Providers Care Lead Producer Name Role Phone Arabella Cerda NP Primary Care Provider [phone] Clare Wilson MD Primary Care Provider + Tamiko Manrique PA-C Unavailable [phone] Clare Wilson MD Primary Care Provider + Jenny Pugh MD Primary Care Provider [phone] Encounter Details Date Type Department Care Team (Late st Contact Info) Description 06/14/2022 Procedure Pass [facility], Ct Scan - [address] [phone] Social History Tobacco Use Types Packs/Day Years [...] Moderate Risk 06/14/2022 2:57 PM EDT Dolores Javier, CAROL ANN * [place] Suicide Severity Rating Scale (Screener/Recent Self-Report) Question Answer Date of Assessment Author 1. Wish to be (Past 1 Month) No 023 2:57 PM EDT Dolores Javier, CAROL ANN 2. Non-Specific Active Suici faith Thoughts (Past 1 Month) No 06/14/2022 2:57 PM EDT Jan Javier, CAROL ANN 6. Suicidal Behavior (Lifetime) Yes 3 2:57 PM EDT Dolores Javier, CAROL ANN 6. Suicidal Behavior (3 Months) No 3 2:57 PM EDT Dolores Javier RN documented as of this encounter Plan of Treatment Upcoming Encounters Date Type Department Care Team (Late st Contact Info) Description 12/22/2024 11:00 AM EST Infusion [facility] Medical Infusion [address] [address] Aaron Cheng MD [address] [place] [address] 01/13/2025 11:00 AM EST Infusion [facility] Infusion [address] [address] Aaron Cheng MD [address] [place] [address] 02/03/2025 11:00 AM EST Infusion [facility] Medical Infusion [address] [address] Aaron Cheng MD [address] [place] [address] 02/24/2025 11:00 AM EST Infusion [facility] Infusion [address] [address] Aaron Cheng MD [address] [place] [address] documented as of this encounter Visit Diagnoses [...] CoV-Risk 04/01/2024 04/01/2024 04/12/2024 1:25 AM EST CoV-Risk 11/01/2024 11/01/2024 11/12/2024 1:21 AM EDT CoV-Risk 11/26/2024 11/26/2024 documented as of this encounter Care Teams Lead Producer Relationship Specialty Start Date End Date Arabella Cerda NP [address] [place] [address] PCP - General Family Medicine 08/17/21 09/15/23 Clare Wilson MD [address] [place] [address] [email or web address] PCP - General Family Medicine 09/16/23 12/05/23 Clare Wilson MD [address] [place] [address] [email or web address] PCP - General Family Medicine 12/06/23 03/11/24 Jenny Pugh MD [address] [place] [address] [email or web address] PCP - General Family Medicine 08/22/24 Tamiko Manrique PA-C [address] [place] [address] [email or web address] Physician Metal Hanger 11/14/23 documented as of this encounter Additional Source Comments The information contained in this document represents components of the legal health record. It is not the complete legal health record.[facility]
--- OUTSIDE RECORDS SUMMARY | 2024-12-05 14:12 | XMS_ITS | Encounter Summary ---
Author Organization [facility] Address [address] [place] [address] [place] [address] Phone Care Team Providers Care Integrated Specialist Name Role Phone Arabella Cerda NP Primary Care Provider [phone] Clare Wilson MD Primary Care Provider + Tamiko Manrique PA-C Unavailable [phone] Clare Wilson MD Primary Care Provider + Jenny Pugh MD Primary Care Provider [phone] Encounter Details Date Type Department Care Team (Late st Contact Info) Description 03/30/2022 Procedure Pass [facility], Ct Scan - [address] [phone] Social History Tobacco Use Types Packs/Day Years [...] 6:01 PM EST Saima Ramirez RN * [place] Suicide Severity Rating Scale (Screener/Recent Self-Report) Question [...] Info) Description 12/22/2024 11:00 AM EST Infusion [facility] Medical Infusion [address] [address] Aaron Cheng MD [address] [place] [address] 01/13/2025 11:00 AM EST Infusion [facility] Infusion [address] [address] Aaron Cheng MD [address] [place] [address] 02/03/2025 11:00 AM EST Infusion [facility] Infusion [address] [address] Aaron Cheng MD [address] [place] [address] 02/24/2025 11:00 AM EST Infusion [facility] Infusion [address] [address] Aaron Cheng MD [address] [place] [address] documented as of this encounter Visit Diagnoses [...] documented as of this encounter Care Teams Integrated Specialist Relationship Specialty Start Date End Date Arabella Cerda NP [address] [place] [address] PCP - General Family Medicine 08/17/21 09/15/23 Clare Wilson MD [address] [place] [address] [email or web address] PCP - General Family Medicine 09/16/23 12/05/23 Clare Wilson MD [address] [place] [address] [email or web address] PCP - General Family Medicine 12/06/23 03/11/24 Jenny Pugh MD [address] [address] [email or web address] PCP - General Family Medicine 08/22/24 Tamiko Manrique PA-C [address] [place] [address] [email or web address] Physician Biomedical Engineer 11/14/23 documented as of this encounter Additional Source Comments The information contained in this document represents components of the legal health record. It is not the complete legal health record.[facility]
--- OUTSIDE RECORDS SUMMARY | 2024-12-05 14:12 | XMS_ITS | Encounter Summary ---
Author Organization [facility] Address [address] [facility] [address] [place] [address] Phone Care Team Providers Care Systems Software Specialist Name Role Phone Tamiko Manrique PA-C Unavailable [phone] Jenny Pugh MD Primary Care Provider [phone] Encounter Details Date Type Department Care Team (Late st Contact Info) Description 05/30/2024 Procedure Pass [facility], Ct Scan - [address] [address] Social History Tobacco Use Types Packs/Day Years [...] AM EDT Rosa Elena Graves RN * [place] Suicide Severity Rating Scale (Screener/Recent Self-Report) Question Answer Date of Assessment Author 1. Wish to be (Past 1 Month) No 025 1:26 AM KAYLAT Rosa Elena Noonan, CAROL ANN 2. Non-Specific Active Suici faith Thoughts (Past 1 Month) No 05/30/2024 1:26 AM KAYLAT Elroy Noonan ra RN 6. Suicidal Behavior (Lifetime) No 1:26 AM KAYLAT Rosa Elena Noonan, RN documented as of this encounter Plan of Treatment Upcoming Encounters Date Type Department Care Team (Late st Contact Info) Description 12/22/2024 11:00 AM EST Infusion [facility] Medical Infusion Center [address] [place] [address] Aaron Cheng MD [address] [place] [address] 01/13/2025 11:00 AM EST Infusion [facility] Infusion [address] [address] Aaron Cheng MD [address] [place] [address] 02/03/2025 11:00 AM EST Infusion [facility] Infusion [address] [address] Aaron Cheng MD [address] [place] [address] 02/24/2025 11:00 AM EST Infusion [facility] Infusion [address] [address] Aaron Cheng MD [address] [place] [address] documented as of this encounter Visit Diagnoses Not on filedocumented in this encounter Additional Health Concerns Infection Onset Date Last Indicated Resolved Time CoV-Risk 11/01/2024 11/01/2024 11/12/2024 1:21 AM EDT CoV-Risk 11/26/2024 11/26/2024 documented as of this encounter Care Teams Systems Software Specialist Relationship Specialty Start Date End Date Jenny Pugh MD [address] [place] [address] [email or web address] PCP - General Family Medicine 08/22/24 Tamiko Manrique PA-C [address] [place] [address] [email or web address] Physician Blue Prints Trimmer 11/14/23 documented as of this encounter Additional Source Comments The information contained in this document represents components of the legal health record. It is not the complete legal health record.[facility]
--- OUTSIDE RECORDS SUMMARY | 2024-12-05 14:12 | XMS_ITS | Encounter Summary ---
Author Organization [facility] Address [address] [facility] [address] [place] [address] Phone Care Team Providers Care Poultry Breeder Name Role Phone Tamiko Manrique PA-C Unavailable [phone] Jenny Pugh MD Primary Care Provider [phone] Encounter Details Date Type Department Care Team (Late st Contact Info) Description 05/06/2024 Procedure Pass [facility], Ct Scan - [address] [address] Social History Tobacco Use Types Packs/Day Years [...] Info) Description 12/22/2024 11:00 AM EST Infusion [facility] Medical Infusion Center [address] [place] [address] Aaron Cheng MD [address] [place] [address] 01/13/2025 11:00 AM EST Infusion [facility] Infusion [address] [address] Aaron Cheng MD [address] [place] [address] 02/03/2025 11:00 AM EST Infusion [facility] Infusion [address] [address] Aaron Cheng MD [address] [place] [address] 02/24/2025 11:00 AM EST Infusion [facility] Infusion [address] [address] Aaron Cheng MD [address] [place] [address] documented as of this encounter Visit Diagnoses Not on filedocumented in this encounter Additional Health Concerns Infection Onset Date Last Indicated Resolved Time CoV-Risk 11/01/2024 11/01/2024 11/12/2024 1:21 AM EDT CoV-Risk 11/26/2024 11/26/2024 documented as of this encounter Care Teams Poultry Breeder Relationship Specialty Start Date End Date Jenny Pugh MD [address] [address] [email or web address] PCP - General Family Medicine 08/22/24 Tamiko Manrique PA-C [address] [place] [address] [email or web address] Physician Winding Department Supervisor 11/14/23 documented as of this encounter Additional Source Comments The information contained in this document represents components of the legal health record. It is not the complete legal health record.[facility]
--- OUTSIDE RECORDS SUMMARY | 2024-12-05 14:12 | XMS_ITS | Encounter Summary ---
Author Organization [facility] Address [address] [place] [address] [place] [address] Phone Care Team Providers Care Test Car Driver Name Role Phone Arabella Cerda NP Primary Care Provider [phone] Clare Wilson MD Primary Care Provider + Tamiko Manrique PA-C Unavailable [phone] Clare Wilson MD Primary Care Provider + Jenny Pugh MD Primary Care Provider Encounter Details Date Type Department Care Team (Late Contact Info) Description 10/12/2020 Procedure Pass [place] Admitting Dept - Virtual Department [address] [place] [address] Social History Tobacco Use Types Packs/Day Years [...] Department Care Team (Late Contact Info) Description 12/22/2024 11:00 AM EST Infusion [facility] Medical Infusion Center [address] [place] [address] Aaron Cheng MD [address] [place] [address] 01/13/2025 11:00 AM EST Infusion [facility] Medical Infusion Center [address] [place] [address] Aaron Cheng MD [address] [place] [address] 02/03/2025 11:00 AM EST Infusion [facility] Infusion [address] [address] Aaron Cheng MD [address] [place] [address] 02/24/2025 11:00 AM EST Infusion [facility] Infusion [address] [address] Aaron Cheng MD [address] [place] [address] documented as of this encounter Visit Diagnoses [...] documented as of this encounter Care Teams Test Car Driver Relationship Specialty Start Date End Date Arabella Cerda SIGNAL PERSON [address] [place] [address] PCP - General Family Medicine 08/17/21 09/15/23 Clare Wilson MD [address] [place] [address] [email or web address] PCP - General Family Medicine 09/16/23 12/05/23 Clare Wilson MD [address] [place] [address] [email or web address] PCP - General Family Medicine 12/06/23 03/11/24 Jenny Pugh MD [address] [place] [address] [email or web address] PCP - General Family Medicine 08/22/24 Tamiko Manrique PA-C [address] [place] [address] Physician Ski Topper 11/14/23 documented as of this encounter Additional Source Comments The information contained in this document represents components of the legal health record. It is not the complete legal health record.[facility]
--- OUTSIDE RECORDS SUMMARY | 2024-12-05 14:12 | XMS_ITS | Encounter Summary ---
Author Organization [facility] Address [address] [place] [address] [place] [address] Phone Care Team Providers Care Weld Technician Name Role Phone Amisha Frost Primary Care Provider Amilcar Hadley MD Primary Care Provider [phone] Arabella Cerda NP Primary Care Provider [phone] Clare Wilson MD Primary Care Provider + Tamiko Manrique-C Unavailable Clare Wilson MD Primary Care Provider + Jenny Pugh MD Primary Care Provider Encounter Details Date Type Department Care Team (Late Contact Info) Description 08/03/2019 Procedure Pass [facility], Ct Scan - [address] [phone] Social History Tobacco Use Types Packs/Day Years [...] Info) Description 12/22/2024 11:[address] [facility] [address] [place] [address] Aaron Cheng MD [address] [place] [address] 01/13/2025 11:00 AM EST Infusion [facility] Infusion [address] [address] Aaron Cheng MD [address] [place] [address] 02/03/2025 11:00 AM EST Infusion [facility] Infusion [address] [address] Aaron Cheng MD [address] [place] [address] 02/24/2025 11:00 AM EST Infusion [facility] Infusion [address] [address] Aaron Cheng MD [address] [place] [address] documented as of this encounter Visit Diagnoses [...] documented as of this encounter Care Teams Weld Technician Relationship Specialty Start Date End Date Amisha Frost PA [address] [place] [address] [email or web address] PCP - General 12/08/18 09/26/19 Amilcar Hadley MD [address] [place] [address] [email or web address] PCP - General 09/27/19 03/01/20 Arabella Cerda NP [address] [place] [address] PCP - General Family Medicine 08/17/21 09/15/23 Clare Wilson MD [address] [place] [address] [email or web address] PCP - General Family Medicine 09/16/23 12/05/23 Clare Wilson MD [address] [place] [address] [email or web address] PCP - General Family Medicine 12/06/23 03/11/24 Jenny Pugh MD [address] [address] [email or web address] PCP - General Family Medicine 08/22/24 Tamiko Manrique PA-C [address] [place] [address] [email or web address] Physician Dip Stand Loader 11/14/23 documented as of this encounter Additional Source Comments The information contained in this document represents components of the legal health record. It is not the complete legal health record.[facility]
--- OUTSIDE RECORDS SUMMARY | 2024-12-05 14:13 | XMS_ITS | Encounter Summary ---
Author Organization [facility] Address [address] [facility] [address] [place] [address] Phone Care Team Providers Care Shutdown Planner Name Role Phone Arabella Cerda NP Primary Care Provider [phone] Clare Wilson MD Primary Care Provider + Tamiko Manrique PA-C Unavailable [phone] Clare Wilson MD Primary Care Provider + Jenny Pugh MD Primary Care Provider [phone] Encounter Details Date Type Department Care Team (Late st Contact Info) Description 07/20/2022 Procedure Pass [facility], Ct Scan - [address] [id number] Social History Tobacco Use Types Packs/Day Years [...] Upcoming Encounters Date Type Department Care Team ([facility] st Contact Info) Description 12/22/2024 11:00 AM EST Infusion [facility] Medical Infusion [address] [address] Aaron Cheng MD [address] [place] [address] 01/13/2025 11:00 AM EST Infusion [facility] Infusion [address] [address] Aaron Cheng MD [address] [place] [address] 02/03/2025 11:00 AM EST Infusion [facility] Infusion [address] [address] Aaron Cheng MD [address] [place] [address] 02/24/2025 11:00 AM EST Infusion [facility] Infusion [address] [address] Aaron Cheng MD [address] [place] [address] documented as of this encounter Visit Diagnoses [...] documented as of this encounter Care Teams Shutdown Planner Relationship Specialty Start Date End Date Arabella Cerda NP [address] [place] [address] PCP - General Family Medicine 08/17/21 09/15/23 Clare Wilson MD [address] [place] [address] [email or web address] PCP - General Family Medicine 09/16/23 12/05/23 Clare Wilson MD [address] [place] [address] [email or web address] PCP - General Family Medicine 12/06/23 03/11/24 Jenny Pugh MD [address] [place] [address] [email or web address] PCP - General Family Medicine 08/22/24 Tamiko Manrique PA-C [address] [place] [address] [email or web address] Physician Rock Splitter 11/14/23 documented as of this encounter Additional Source Comments The information contained in this document represents components of the legal health record. It is not the complete legal health record.[facility]
--- OUTSIDE RECORDS SUMMARY | 2024-12-05 14:13 | XMS_ITS | Encounter Summary ---
Author Organization [facility] Address [address] [facility] [address] [place] [address] Phone Care Team Providers Care Campaign Analyst Name Role Phone Arabella Cerda NP Primary Care Provider [phone] Clare Wilson MD Primary Care Provider + Tamiko Manrique PA-C Unavailable [phone] Clare Wilson MD Primary Care Provider + Jenny Pugh MD Primary Care Provider [phone] Reason for Referral * MRI/CAT Scan - Closed Specialty Diagnoses / Procedures Referred By Contac t Referred To Contact Radiology Diagnoses Abnormal findings on diagnostic imaging of other specified body structures Procedures CT Chest CHG DIAGNOSTIC COMPUTED TOMOGRAPHY THORAX W/O CNTRST Arabella Cerda NP Phone: tel: Referral ID Status Reason Start Date Expiration Date Visits Re quested Visits Authorized [id number] Closed 12/18/2022 04/24/2023 1 1 Encounter Details Date Type Department Care Team (Latest Contact Info) Description 12/18/2022 Transcribe Orders Virtual Department 30 [place] [address] Arabella Cerda NP [address] [place], [place] [phone] Abnormal findings on diagnostic imaging of other [...] Info) Description 12/22/2024 11:00 AM EST Infusion [facility] Infusion [address] [address] Aaron Cheng MD [address] [place] [address] 01/13/2025 11:00 AM EST Infusion [facility] Infusion [address] [address] Aaron Cheng MD [address] [place] [address] 02/03/2025 11:00 AM EST Infusion [facility] Infusion [address] [address] Aaron Cheng MD [address] [place] [address] 02/24/2025 11:00 AM EST Infusion [facility] Infusion [address] [address] Aaron Cheng MD [address] [place] [address] documented as of this encounter Results * [...] clinician's provided indication for this examination in [facility]: Outside Radiology Order; ABNORMAL CT TECHNIQUE: Multidetector [...] clinician's provided indication for this examination in Epic:Outside Radiology Order; ABNORMAL CT TECHNIQUE: Multidetector CT [...] significant pulmonary nodule mass or pneumonia. Arabella Cerda CORN SHELLER IMG CT CHEST Final Result documented in [...] documented as of this encounter Care Teams Campaign Analyst Relationship Specialty Start Date End Date Arabella Cerda NP [address] [place] [address] PCP - General Family Medicine 08/17/21 09/15/23 Clare Wilson MD [address] [place] [address] [email or web address] PCP - General Family Medicine 09/16/23 12/05/23 Clare Wilson MD [address] [place] [address] [email or web address] PCP - General Family Medicine 12/06/23 03/11/24 Jenny Pugh MD [address] [address] [email or web address] PCP - General Family Medicine 08/22/24 Tamiko Manrique PA-C [address] [place] [address] [email or web address] Physician Varnish Dipper 11/14/23 documented as of this encounter Additional Source Comments The information contained in this document represents components of the legal health record. It is not the complete legal health record.[facility]
--- OUTSIDE RECORDS SUMMARY | 2024-12-05 14:13 | XMS_ITS | Encounter Summary ---
Author Organization [facility] Address [address] [facility] [address] [place] [address] Phone Care Team Providers Care Continuing Education Specialist Name Role Phone Arabella Cerda NP Primary Care Provider [phone] Clare Wilson MD Primary Care Provider + Tamiko Manrique PA-C Unavailable [phone] Clare Wilson MD Primary Care Provider + Jenny Pugh MD Primary Care Provider [phone] Encounter Details Date Type Department Care Team (Late st Contact Info) Description 11/19/2022 Procedure Pass [facility], Ct Scan - [address] [phone] Social History Tobacco Use Types Packs/Day Years [...] Upcoming Encounters Date Type Department Care Team ([facility] st Contact Info) Description 12/22/2024 11:00 AM EST Infusion [facility] Medical Infusion [address] [address] Aaron Cheng MD [address] [place] [address] 01/13/2025 11:00 AM EST Infusion [facility] Infusion [address] [address] Aaron Cheng MD [address] [place] [address] 02/03/2025 11:00 AM EST Infusion [facility] Infusion [address] [address] Aaron Cheng MD [address] [place] [address] 02/24/2025 11:00 AM EST Infusion [facility] Infusion [address] [address] Aaron Cheng MD [address] [place] [address] documented as of this encounter Visit Diagnoses [...] documented as of this encounter Care Teams Continuing Education Specialist Relationship Specialty Start Date End Date Arabella Cerda NP [address] [place] [address] PCP - General Family Medicine 08/17/21 09/15/23 Clare Wilson MD [address] [place] [address] [email or web address] PCP - General Family Medicine 09/16/23 12/05/23 Clare Wilson MD 70 [place] [address] [email or web address] PCP - General Family Medicine 12/06/23 03/11/24 Jenny Pugh MD [address] [address] [email or web address] PCP - General Family Medicine 08/22/24 Tamiko Manrique PA-C 30 [place] [address] [email or web address] Physician Firewall Administrator 11/14/23 documented as of this encounter Additional Source Comments The information contained in this document represents components of the legal health record. It is not the complete legal health record.[facility]
--- OUTSIDE RECORDS SUMMARY | 2024-12-05 14:13 | XMS_ITS | Encounter Summary ---
Author Organization [facility] Address [address] [facility] [address] [place] [address] Phone Care Team Providers Care Marketing Proposal Specialist Name Role Phone Tamiko Manrique PA-C Unavailable [phone] Jenny Pugh MD Primary Care Provider [phone] Encounter Details Date Type Department Care Team (Late st Contact Info) Description 07/02/2024 Procedure Pass [facility], Ct Scan - [address] [address] Social History Tobacco Use Types Packs/Day Years [...] 07/02/2024 3:05 AM Kaycee Pinzon RN * [place] Suicide Severity Rating Scale (Screener/Recent Self-Report) Question Answer Date of Assessment Author 1. Wish to be (Past 1 Month) No 07/02/2024 3:05 AM Kaycee Pinzon RN 2. Non-Specific Active Suicidal Thoughts (Past 1 Month) No 07/02/2024 3:05 AM Kaycee Pinzon RN 6. Suicidal Behavior (Lifetime) Yes 07/02/2024 3:05 AM Kaycee Pinzon RN 6. Suicidal Behavior (3 Months) No 07/02/2024 3:05 AM Kaycee Pinzon RN documented as of this encounter Plan of Treatment Upcoming Encounters Date Type Department Care Team (Late st Contact Info) Description 12/22/2024 11:00 AM EST Infusion [facility] Medical Infusion [address] [address] Aaron Cheng MD [address] [place] [address] 01/13/2025 11:00 AM EST Infusion [facility] Medical Infusion [address] [address] Aaron Cheng MD [address] [place] [address] 02/03/2025 11:00 AM EST Infusion [facility] Infusion [address] [address] Aaron Cheng MD [address] [place] [address] 02/24/2025 11:00 AM EST Infusion [facility] Infusion [address] [address] Aaron Cheng MD [address] [place] [address] documented as of this encounter Visit Diagnoses Not on filedocumented in this encounter Additional Health Concerns Infection Onset Date Last Indicated Resolved Time CoV-Risk 11/01/2024 11/01/2024 11/12/2024 1:21 AM EDT CoV-Risk 11/26/2024 11/26/2024 documented as of this encounter Care Teams Marketing Proposal Specialist Relationship Specialty Start Date End Date Jenny Pugh MD [address] [place] [address] [email or web address] PCP - General Family Medicine 08/22/24 Tamiko Manrique PA-C [address] [place] [address] [email or web address] Physician Central Office Maintainer 11/14/23 documented as of this encounter Additional Source Comments The information contained in this document represents components of the legal health record. It is not the complete legal health record.[facility]
--- OUTSIDE RECORDS SUMMARY | 2024-12-05 14:13 | XMS_ITS | Encounter Summary ---
Author Organization [facility] Address [address] [facility] [address] [place] [address] Phone Care Team Providers Care Evp Sales Name Role Phone Tamiko Manrique PA-C Unavailable [phone] Jenny Pugh MD Primary Care Provider [phone] Encounter Details Date Type Department Care Team (Late st Contact Info) Description 05/30/2024 Procedure Pass [facility], Ct Scan - [address] [address] Social History Tobacco Use Types Packs/Day Years [...] AM EDT Rosa Elena Graves RN * [place] Suicide Severity Rating Scale (Screener/Recent Self-Report) Question [...] Info) Description 12/22/2024 11:00 AM EST Infusion [facility] Medical Infusion Center [address] [place] [address] Aaron Cheng MD [address] [place] [address] 01/13/2025 11:00 AM EST Infusion [facility] Infusion [address] [address] Aaron Cheng MD [address] [place] [address] 02/03/2025 11:00 AM EST Infusion [facility] Infusion [address] [address] Aaron Cheng MD [address] [place] [address] 02/24/2025 11:00 AM EST Infusion [facility] Infusion [address] [address] Aaron Cheng MD [address] [place] [address] documented as of this encounter Visit Diagnoses Not on filedocumented in this encounter Additional Health Concerns Infection Onset Date Last Indicated Resolved Time CoV-Risk 11/01/2024 11/01/2024 11/12/2024 1:21 AM EDT CoV-Risk 11/26/2024 11/26/2024 documented as of this encounter Care Teams Evp Sales Relationship Specialty Start Date End Date Jenny Pugh MD [address] [place] [address] [email or web address] PCP - General Family Medicine 08/22/24 Tamiko Manrique PA-C [address] [place] [address] [email or web address] Physician Generalist 11/14/23 documented as of this encounter Additional Source Comments The information contained in this document represents components of the legal health record. It is not the complete legal health record.[facility]
--- OUTSIDE RECORDS SUMMARY | 2024-12-05 14:13 | XMS_ITS | Encounter Summary ---
Author Organization [facility] Address [address] [place] [address] [place] [address] Phone Care Team Providers Care Clinical Program Consultant Name Role Phone Arabella Cerda NP Primary Care Provider [phone] Clare Wilson MD Primary Care Provider + Tamiko Manrique PA-C Unavailable [phone] Clare Wilson MD Primary Care Provider + Jenny Pugh MD Primary Care Provider Encounter Details Date Type Department Care Team (Late Contact Info) Description 11/26/2020 Procedure Pass [place] Admitting Dept - Virtual Department [address] [place] [address] Social History Tobacco Use Types Packs/Day Years [...] Info) Description 12/22/2024 11:00 AM EST Infusion [facility] Infusion Center [address] [place] [address] Aaron Cheng MD [address] [place] [address] 01/13/2025 11:00 AM EST Infusion [facility] Medical Infusion Center [address] [place] [address] Aaron Cheng MD [address] [place] [address] 02/03/2025 11:00 AM EST Infusion [facility] Infusion [address] [address] Aaron Cheng MD [address] [place] [address] 02/24/2025 11:00 AM EST Infusion [facility] Infusion [address] [address] Aaron Cheng MD [address] [place] [address] documented as of this encounter Visit Diagnoses [...] documented as of this encounter Care Teams Clinical Program Consultant Relationship Specialty Start Date End Date Arabella Cerda POWER SYSTEMS ENGINEER [address] [place] [address] PCP - General Family Medicine 08/17/21 09/15/23 Clare Wilson MD [address] [place] [address] PCP - General Family Medicine 09/16/23 12/05/23 Clare Wilson MD 70 [place] [address] PCP - General Family Medicine 12/06/23 03/11/24 Jenny Pugh MD [address] [place] [address] [email or web address] PCP - General Family Medicine 08/22/24 Tamiko Manrique PA-C [address] [place] [address] [email or web address] Physician Yield Loss Inspector 11/14/23 documented as of this encounter Additional Source Comments The information contained in this document represents components of the legal health record. It is not the complete legal health record.[facility]
--- OUTSIDE RECORDS SUMMARY | 2024-12-05 14:13 | XMS_ITS | Encounter Summary ---
Author Organization [facility] Address [address] [facility] [address] [place] [address] Phone Care Team Providers Care Canvas Baster Jumpbasting Name Role Phone Arabella Cerda NP Primary Care Provider [phone] Clare Wilson MD Primary Care Provider + Tamiko aMnrique PA-C Unavailable [phone] Clare Wilson MD Primary Care Provider + Jenny Pugh MD Primary Care Provider Encounter Details Date Type Department Care Team (Late st Contact Info) Description 11/21/2020 Procedure Pass [facility], Ct Scan - [address] [phone] Social History Tobacco Use Types Packs/Day Years [...] Risk Indicated 11/23/2020 5:34 PM EDT Maryellen Anand, RN * [place] Suicide Severity Rating Scale (Screener/Recent Self-Report) Question Answer Date of Assessment Author 1. Wish to be (Past 1 Month) No 021 5:34 PM EDT Maryellen Anand, CAROL ANN 2. Non-Specific Active Suici faith Thoughts (Past 1 Month) No 11/23/2020 5:34 PM EDT Maryellen Anand, RN 6. Suicidal Behavior (Lifetime) No 5:34 PM EDT Maryellen Anand, RN documented as of this encounter Plan of Treatment Upcoming Encounters Date Type Department Care Team (Late st Contact Info) Description 12/22/2024 11:00 AM EST Infusion [facility] Infusion [address] [address] Aaron Cheng MD [address] [place] [address] 01/13/2025 11:00 AM EST Infusion [facility] Infusion [address] [address] Aaron Cheng MD [address] [place] [address] 02/03/2025 11:00 AM EST Infusion [facility] Infusion [address] [address] Aaron Cheng MD [address] [place] [address] 02/24/2025 11:00 AM EST Infusion [facility] Infusion [address] [address] Aaron Cheng MD [address] [place] [address] documented as of this encounter Visit Diagnoses [...] documented as of this encounter Care Teams Canvas Baster Jumpbasting Relationship Specialty Start Date End Date Arabella Cerda NP [address] [place] [address] PCP - General Family Medicine 08/17/21 09/15/23 Clare Wilson MD 70 [place] [address] [email or web address] PCP - General Family Medicine 09/16/23 12/05/23 Clare Wilson MD [address] [place] [address] [email or web address] PCP - General Family Medicine 12/06/23 03/11/24 Jenny Pugh MD [address] [address] [email or web address] PCP - General Family Medicine 08/22/24 Tamiko Manrique PA-C [address] [place] [address] [email or web address] Physician Butadiene Converter Operator 11/14/23 documented as of this encounter Additional Source Comments The information contained in this document represents components of the legal health record. It is not the complete legal health record.[facility]
--- OUTSIDE RECORDS SUMMARY | 2024-12-05 14:14 | XMS_ITS | Encounter Summary ---
Author Organization [facility] Address [address] [facility] [address] [place] [address] Phone Care Team Providers Care Remelter Name Role Phone Arabella Cerda NP Primary Care Provider [phone] Clare Wilson MD Primary Care Provider + Tamiko Manrique PA-C Unavailable [phone] Clare Wilson MD Primary Care Provider + Jenny Pugh MD Primary Care Provider [phone] Encounter Details Date Type Department Care Team (Late st Contact Info) Description 07/16/2023 Procedure Pass [facility], Ct Scan - [address] [id number] Social History Tobacco Use Types Packs/Day Years [...] Info) Description 12/22/2024 11:00 AM EST Infusion [facility] Medical Infusion [address] [address] Aaron Cheng MD [address] [place] [address] 01/13/2025 11:00 AM EST Infusion [facility] Infusion [address] [address] Aaron Cheng MD [address] [place] [address] 02/03/2025 11:00 AM EST Infusion [facility] Infusion [address] [address] Aaron Cheng MD [address] [place] [address] 02/24/2025 11:00 AM EST Infusion [facility] Infusion [address] [address] Aaron Cheng MD [address] [place] [address] documented as of this encounter Visit Diagnoses [...] documented as of this encounter Care Teams Remelter Relationship Specialty Start Date End Date Arabella Cerda NP [address] [place] [address] PCP - General Family Medicine 08/17/21 09/15/23 Clare Wilsno MD [address] [place] [address] [email or web address] PCP - General Family Medicine 09/16/23 12/05/23 Clare Wilson MD [address] [place] [address] [email or web address] PCP - General Family Medicine 12/06/23 03/11/24 Jenny Pugh MD [address] [address] [email or web address] PCP - General Family Medicine 08/22/24 Tamiko Manrique PA-C [address] [place] [address] [email or web address] Physician Mva Still Operator 11/14/23 documented as of this encounter Additional Source Comments The information contained in this document represents components of the legal health record. It is not the complete legal health record.[facility]
--- OUTSIDE RECORDS SUMMARY | 2024-12-05 14:14 | XMS_ITS | Encounter Summary ---
Author Organization [facility] Address [address] [facility] [address] [place] [address] Encounters * CPT with Medical [facility] at [employer] [facility] [facility] on 2024-11-02 { reasonForRequest : Patient just doesn't feel well. , patientReports&quot ;: , denies :[ Worst Headache of life , New onset of vision loss , Sudden onset -unilateral weakness/gait disturbance , Fall with head strike and altered LOC , New onset of Slurred speech or difficulty finding words , Sudden Mental status changes , Head pain with fever chills and neck pain , Seizure ac tivity ], chiefComplaints : Dizziness , pmh : COPD/Asthma, Severe Persistent Mental Illness (SPMI), Hypertension, Anxiety Disorder, Rheumatoid Arthritis, Pneumonia , allergies : Aspirin, Doxycycline, Morphine, Bactrim, Penicillins, Augmentin , otherAllergies :null, painAssessment : , visitOutcome&q uot;: , additionalComments : 64 y.o female complains of Dizziness\n\nPatient calling in to place a referral\nPatient reports all day dizziness, weakness and generally not feeling well\n+chills and sweats\nShe denies headaches\nShe denies any chest pain, no shortness of breath\nNo body pain, no numbness or tingling anywhere\nMoving her bowels and bladder withough difficulty\nDenies nausea or vomiting, mild diarrhea\nDoes not wear supplemental o2\nShe would like to be jenny luated\n\n\nI provided information on the mobile health provider response time and advised the patient and/or caregiver to monitor reported signs and symptoms. I discussed the warning signs of when to seek emergency care. } AL08 dispatched to the address listed above for the report of a female constitution party with dizziness. Arrival on scene, patient was found lying on the couch on her right side, conscious and alert initially but noted to be lethargic, patent airway, breathing non labored speaking in complete sentences, skin WPD. +/= Chest rise. -SOB, -CP, -NVD, -Trauma, -Fever. GCS 15 initially. Patient reports new onset ofdizziness, nausea, headache, and generalized weakness that started this morning with history of vertigo, reports that she has been medication compliant and has taken her Meclizine today. Patient reports normal food and fluid intake. Patient denies any recent trauma, denies fever/chills, denies any other illicit drugs or alcohol, denies use of blood thinner, denies history of CVA. Further assessment of patient revealed right side facial droop, slurred speech, and right visual neglect. Patient eyes able to follow to left side but not to the right side. Patient noted to have increased lethargy and somnolence, stating that she just wants to sleep. Patient noted to go through periods of gazing into the distance and not responding. Patient vital signs obtained. [facility] consulted and recommended that patient goes to the hospital which C agreed. 911 was called for patient with [facility] arrival on scene shortly after. Patient report given to EMS and care was transferred. EMS assisted as needed until transport. SC08 Clear. IV_(FLUIDS_AND/OR_MEDICATION), POC_BLOODWORK, ORTHOSTATIC_VITAL_SIGNS, PO_MEDICATION Written by Medical instED on 2024-11-02
--- OUTSIDE RECORDS SUMMARY | 2024-12-05 14:14 | XMS_ITS | Encounter Summary ---
Author Organization [facility] Address [address] [facility] [address] [place] [address] Phone Care Team Providers Care Racecourse Barrier Attendant Name Role Phone Tamiko Manrique PA-C Unavailable [phone] Jenny Pugh MD Primary Care Provider [phone] Encounter Details Date Type Department Care Team (Late st Contact Info) Description 09/15/2024 Procedure Pass [facility], Ct Scan - [address] [address] Social History Tobacco Use Types Packs/Day Years [...] Risk Indicated 09/15/2024 6:48 PM EDT Anastacia Webster, RN * [place] Suicide Severity Rating Scale (Screener/Recent Self-Report) Question [...] Info) Description 12/22/2024 11:00 AM EST Infusion [facility] [address] [place] [address] Aaron Cheng MD [address] [place] [address] 01/13/2025 11:00 AM EST Infusion [facility] Medical Infusion [address] [address] Aaron Cheng MD [address] [place] [address] 02/03/2025 11:00 AM EST Infusion [facility] Infusion [address] [address] Aaron Cheng MD [address] [place] [address] 02/24/2025 11:00 AM EST Infusion [facility] Infusion [address] [address] Aaron Cheng MD [address] [place] [address] documented as of this encounter Visit Diagnoses Not on filedocumented in this encounter Additional Health Concerns Infection Onset Date Last Indicated Resolved Time CoV-Risk 11/01/2024 11/01/2024 11/12/2024 1:21 AM EDT CoV-Risk 11/26/2024 11/26/2024 documented as of this encounter Care Teams Racecourse Barrier Attendant Relationship Specialty Start Date End Date Jenny Pugh MD [address] [place] [address] [email or web address] PCP - General Family Medicine 08/22/24 Tamiko Manrique PA-C [address] [place] [address] [email or web address] Physician Yarn Hauler 11/14/23 documented as of this encounter Additional Source Comments The information contained in this document represents components of the legal health record. It is not the complete legal health record.[facility]
--- OUTSIDE RECORDS SUMMARY | 2024-12-05 14:14 | XMS_ITS | Encounter Summary ---
Author Organization [facility] Address [address] [facility] [address] [place] [address] Encounters * CPT with Medical [facility] at [employer] on 2024-12-03 { reasonForRequest : Patient's Left Arm is swollen and painful. , patientRe ports : , denies :[ Valderrama Flash, circumferential valderrama ,"Valderrama reported with black tissue to the area , Open skin area after a fall with uncontrolled bleeding , Abscess/infection with streaking noted, presence of fever or without , History of cellulitis, isolated redness noted , Fever and chills noted in setting of wound , Rash , Bites -bugs, spider , Abscess ], chiefCompl aints : Extremity Swelling , pmh : COPD/Asthma, Severe Persistent Mental Illness (SPMI), Hypertension, Anxiety Disorder, Rheumatoid Arthritis, Pneumonia , aller gies : Aspirin, Doxycycline, Morphine, Bactrim, Penicillins, Augmentin , otherAl lergies :null, painAssessment : Level 10 out of 10 , visitOutcome&quot ;: , additionalComments : 64 y.o female complains of Extremity Swelling\n\nPt has c/o upper arm swelling on left arm for a few days. \Iftikhar thinks she slept on it wrong, 10/10 pain . She has been taking tylenol but has not helped, she has not tried ice or heat. \nThe swelling has remained unchanged over the past few days. \nSjavi has not been lifting or engaging in any repetitive movements. She denies any any falls or injuries. \nShe had surgery on the left arm back in dec ember on the same arm , she does not remember what she had done , but this can occur. \Iftikhar is not on blood thinners, no h/o blood clots. She has no shortness of breath or chest pain \n\n\nI providedinformation on the mobile health provider response time and advised the patient and/or caregiver tomonitor reported signs and symptoms. I discussed the warning signs of when to seek emergency care."} [employer] visit for female patient with complaint of left shoulder/left upper arm pain. Patient reports chronic history of the same and reports having surgery done last January but does not know what the diagnosis or surgery was. Patient???s history does note rheumatoid arthritis as well. Patient denies injury, exertion or strain. Patient presents in no obvious distress sitting on couch in apartment. Vital signs taken as listed.No fever noted. Patients arm and shoulder were examined with no external signs of injury. No appreciable swelling though patient believes there is some. Patient has a lidocaine patch on the left shoulder. Image taken of for [facility] review. Consulted with [facility] who ordered 30 MG of IM Toradol given on seen by medic. Allergies confirmed prior to administration. No contraindications noted. Patient informed she can resume oral NSAIDs tomorrow to get her through to pain management appointment this Sunday. IV_(FLUIDS_AND/OR_MEDICATION), MEDICATION_IM, ORAL_MEDICATION, WOUND_CARE, ORTHOSTATIC_VITAL_SIGNS Written by Medical [facility] on 2024-12-03
--- OUTSIDE RECORDS SUMMARY | 2024-12-05 14:14 | XMS_ITS | Continuity of Care Document ---
Author Name [facility], Medical Address [address] [place] [address] Organization Unknown Address [address] [place] [address] Medications No known medications Problems No known problems
--- OUTSIDE RECORDS SUMMARY | 2024-12-05 14:14 | XMS_ITS | Encounter Summary ---
Author Organization [facility] Address [address] [facility] [address] [place] [address] Phone Care Team Providers Care Merchant Mill Utility Worker Name Role Phone Arabella Cerda NP Primary Care Provider [phone] Clare Wilson MD Primary Care Provider + Tamiko Manrique PA-C Unavailable [phone] Clare Wilson MD Primary Care Provider + Jenny Pugh MD Primary Care Provider [phone] Encounter Details Date Type Department Care Team (Late st Contact Info) Description 12/18/2022 Procedure Pass [facility], Ct Scan - [address] [id number] Social History Tobacco Use Types Packs/Day Years [...] Upcoming Encounters Date Type Department Care Team ([facility] st Contact Info) Description 12/22/2024 11:00 AM EST Infusion [facility] Medical Infusion [address] [address] Aaron Cheng MD [address] [place] [address] 01/13/2025 11:00 AM EST Infusion [facility] Infusion [address] [address] Aaron Cheng MD [address] [place] [address] 02/03/2025 11:00 AM EST Infusion [facility] Infusion [address] [address] Aaron Cheng MD [address] [place] [address] 02/24/2025 11:00 AM EST Infusion [facility] Infusion [address] [address] Aaron Cheng MD [address] [place] [address] documented as of this encounter Visit Diagnoses [...] documented as of this encounter Care Teams Merchant Mill Utility Worker Relationship Specialty Start Date End Date Arabella Cerda NP [address] [place] [address] PCP - General Family Medicine 08/17/21 09/15/23 Clare Wilson MD [address] [place] [address] [email or web address] PCP - General Family Medicine 09/16/23 12/05/23 Clare Wilson MD [address] [place] [address] [email or web address] PCP - General Family Medicine 12/06/23 03/11/24 Jenny Pugh MD [address], [place] [address] [email or web address] PCP - General Family Medicine 08/22/24 Tamiko Manrique PA-C [address] [place] [address] [email or web address] Physician Laboratory Supervisor 11/14/23 documented as of this encounter Additional Source Comments The information contained in this document represents components of the legal health record. It is not the complete legal health record.[facility]
--- OUTSIDE RECORDS SUMMARY | 2024-12-05 14:14 | XMS_ITS | Encounter Summary ---
Author Organization [facility] Address [address] [facility] [address] [place] [address] Phone Care Team Providers Care Mica Patcher Name Role Phone Arabella Cerda NP Primary Care Provider [phone] Clare Wilson MD Primary Care Provider + Tamiko Manrique PA-C Unavailable [phone] Clare Wilson MD Primary Care Provider + Jenny Pugh MD Primary Care Provider [phone] Encounter Details Date Type Department Care Team (Late st Contact Info) Description 07/25/2023 Procedure Pass [facility], Ct Scan - [address] [phone] Social History Tobacco Use Types Packs/Day Years [...] 12:15 PM EDT Tonya Elizondo RN * [place] Suicide Severity Rating Scale (Screener/Recent Self-Report) Question Answer Date of Assessment Author 1. Wish to be (Past 1 Month) No 024 12:15 PM EDT Tonya Eliozndo RN 2. Non-Specific Active Suici faith Thoughts (Past 1 Month) No 07/25/2023 12:15 PM EDT Fransisca Elizondo RN 6. Suicidal Behavior (Lifetime) No 12:15 PM EDT Tonya Elizondo RN documented as of this encounter Plan of Treatment Upcoming Encounters Date Type Department Care Team (Late st Contact Info) Description 12/22/2024 11:00 AM EST Infusion [facility] Medical Infusion Center [address] [place] [address] Aaron Cheng MD [address] [place] [address] 01/13/2025 11:00 AM EST Infusion [facility] Infusion [address] [address] Aaron Cheng MD [address] [place] [address] 02/03/2025 11:00 AM EST Infusion [facility] Infusion [address] [address] Aaron Cheng MD [address] [place] [address] 02/24/2025 11:00 AM EST Infusion [facility] Infusion [address] [address] Aaron Cheng MD [address] [place] [address] documented as of this encounter Visit Diagnoses [...] documented as of this encounter Care Teams Mica Patcher Relationship Specialty Start Date End Date Arabella Cerda NP [address] [place] [address] PCP - General Family Medicine 08/17/21 09/15/23 Clare Wilson MD [address] [place] [address] [email or web address] PCP - General Family Medicine 09/16/23 12/05/23 Clare Wilson MD [address] [place] [address] [email or web address] PCP - General Family Medicine 12/06/23 03/11/24 Jenny Pugh MD [address] [place] [address] [email or web address] PCP - General Family Medicine 08/22/24 Tamiko Manrique, BEBETOC [address] [place] [address] [email or web address] Physician Dividend Deposit Voucher Clerk 11/14/23 documented as of this encounter Additional Source Comments The information contained in this document represents components of the legal health record. It is not the complete legal health record.[facility]
--- OUTSIDE RECORDS SUMMARY | 2024-12-05 14:14 | XMS_ITS | Encounter Summary ---
Author Organization [facility] Address [address] [facility] [address] [place] [address] Phone Care Team Providers Care Outside Sales Engineer Name Role Phone Tamiko Manrique PA-C Unavailable [phone] Jenny Pugh MD Primary Care Provider [phone] Encounter Details Date Type Department Care Team ([facility] st Contact Info) Description 08/24/2024 Procedure Pass [facility], Ct Scan - [address] [address] Social History Tobacco Use Types Packs/Day Years [...] 10:24 PM EDT Ingrid Aguirre RN * [place] Suicide Severity Rating Scale (Screener/Recent Self-Report) Question Answer Date of Assessment Author 1. Wish to be (Past 1 Month) No 025 10:24 PM EDT Ingrid Galeano RN 2. Non-Specific Active Suici faith Thoughts (Past 1 Month) No 08/24/2024 10:24 PM EDT Melissa Galeano RN 6. Suicidal Behavior (Lifetime) No 10:24 PM KAYLAT Ingrid Galeano, CAROL ANN documented as of this encounter Plan of Treatment Upcoming Encounters Date Type Department Care Team (Late st Contact Info) Description 12/22/2024 11:00 AM EST Infusion [facility] Medical Infusion Center [address] [place] [address] Aaron Cheng MD [address] [place] [address] 01/13/2025 11:00 AM EST Infusion [facility] Medical Infusion [address] [address] Aaron Cheng MD [address] [place] [address] 02/03/2025 11:00 AM EST Infusion [facility] Infusion [address] [address] Aaron Cheng MD [address] [place] [address] 02/24/2025 11:00 AM EST Infusion [facility] Medical Infusion [address] [address] Aaron Cheng MD [address] [place] [address] documented as of this encounter Visit Diagnoses Not on filedocumented in this encounter Additional Health Concerns Infection Onset Date Last Indicated Resolved Time CoV-Risk 11/01/2024 11/01/2024 11/12/2024 1:21 AM EDT CoV-Risk 11/26/2024 11/26/2024 documented as of this encounter Care Teams Outside Sales Engineer Relationship Specialty Start Date End Date Jenny Pugh MD [address] [place] [address] [email or web address] PCP - General Family Medicine 08/22/24 Tamiko Manrique PA-C [address] [place] [address] [email or web address] Physician Recreational Director 11/14/23 documented as of this encounter Additional Source Comments The information contained in this document represents components of the legal health record. It is not the complete legal health record.[facility]
--- OUTSIDE RECORDS SUMMARY | 2024-12-05 14:14 | XMS_ITS | Clinical Summary ---
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 18 g 10/27/19 Active adalimumab (HUMIRA) 40 mg/0.4 mL pen kit citrate free Inject 0.4 mL (40 mg total) under the skin every 14 (fourteen) days. 0.8 mL 12/01/19 Active Additional Information Patient not taking.Reported on 09/27/2024 ascorbic acid, vitamin C, (VITAMIN C) 250 MG tablet Take 2 tablets (500 mg total) by mouth daily. 30 tablet 11/21/19 Active carBAMazepine (TEGRETOL XR) 400 MG 12 hr tablet Take 1 tablet (400 mg total) by mouth 2 (two) times a day. 60 tablet 11/21/19 Active cholecalciferol (VITAMIN D3) 25 MCG (1,000 unit) tablet Take 2 tablets (2,000 Units total) by mouth daily. 60 tablet 11/21/19 Active estradioL (ESTRACE) 1 MG tablet Take 1 tablet (1 mg total) by mouth daily. 30 tablet 11/21/19 Active fluticasone propion-salmeteroL (ADVAIR DISKUS) 500-50 mcg/dose DISKUS Inhale 1 puff into the lungs every 12 (twelve) hours. 1 each 11/21/19 Active lactase (LACTAID) 3,000 unit tablet Take 1 tablet (3,000 Units total) by mouth 4 (four) times a day. 120 tablet 11/21/19 Active lisinopril (PRINIVIL,ZESTRIL) 10 MG tablet Take 1 tablet (10 mg total) by mouth daily. 30 tablet 11/21/19 Active meclizine (ANTIVERT) 25 mg tablet Take 1 tablet (25 mg total) by mouth 3 (three) times a day as needed. 90 tablet 11/21/19 Active melatonin 3 mg Tab Take 3 tablets (9 mg total) by mouth nightly at bedtime. 90 tablet 11/21/19 Active metFORMIN (GLUCOPHAGE) 500 MG tablet Take 1 tablet (500 mg total) by mouth 2 (two) times a day with meals. 60 tablet 11/21/19 Active montelukast (SINGULAIR) 10 mg tablet Take 1 tablet (10 mg total) by mouth nightly at bedtime. 30 tablet 11/21/19 Active multivitamins capsule Take 1 capsule by mouth daily. 30 capsule 11/21/19 Active pantoprazole (PROTONIX) 20 MG tablet Take 2 tablets (40 mg total) by mouth 2 (two) times a day. 60 tablet 11/21/19 Active prazosin (MINIPRESS) 2 MG capsule Take 2 capsules (4 mg total) by mouth nightly at bedtime. 2mg prn insomnia 60 capsule 11/21/19 Active topiramate (TOPAMAX) 100 MG tablet Take 1.5 tablets (150 mg total) by mouth 2 (two) times a day. 90 tablet 11/21/19 Active umeclidinium (INCRUSE ELLIPTA) 62.5 mcg/actuation inhalationIndicati ons:last filled 10/14 Inhale 62.5 mcg (1 puff total) into the lungs daily. Indications: last filled 10/14 30 each 11/21/19 Active dicyclomine (BENTYL) 10 MG capsule Take 1 capsule (10 mg total) by mouth 4 (four) times a day. 120 capsule 11/21/19 Active docusate sodium (COLACE) 100 MG capsule Take 1 capsule (100 mg total) by mouth 3 (three) times a day. 90 capsule 11/21/19 Active lidocaine 4 % Place 1 patch onto the skin daily. 30 patch 11/22/19 Active senna (SENOKOT) 8.6 mg tablet Take 2 tablets by mouth nightly at bedtime. 60 tablet 11/21/19 Active hydrOXYzine (ATARAX) 50 MG tablet Take 1 tablet (50 mg total) by mouth 3 (three) times a day as needed for anxiety (insomnia). 90 tablet 11/21/19 Active traZODone (DESYREL) 50 MG tablet Take 1 tablet (50 mg total) by mouth nightly at bedtime as needed. 30 tablet 11/21/19 Active sodium chloride (OCEAN) 0.65 % nasal spray 1 spray by Nasal route as needed for congestion. 15 mL 12 01/28/20 Active Additional Information Patient not taking.Reported on 09/27/2024 nystatin (NYSTOP) powder Apply topically 4 (four) times a day. 15 g 11/06/19 Active miconazole 2 % powder Apply topically as needed for itching. 70 g 11/12/19 Active Additional Information Patient not taking.Reported on 09/27/2024 ARIPiprazole (ABILIFY) 10 MG tablet Take 10 mg by mouth daily. Active gabapentin (NEURONTIN) 800 MG tablet Take 800 mg by mouth 3 (three) times a day. 11/13/19 Active risperiDONE (RISPERDAL) 3 MG tablet Take [...] every 6 hours as needed for pain. 12/07/19 Active sertraline (ZOLOFT) 25 MG tablet Take 3 tablets (75 mg total) by mouth nightly at bedtime. 90 tablet 12/14/19 Active bisacodyl (DULCOLAX) 5 mg EC tablet Take 1 tablet (5 mg total) by mouth daily as needed. 30 tablet 12/14/19 Active ixekizumab (TALTZ AUTOINJECTOR) 80 mg/mL subcutaneous auto-injector Inject 80 mg under the skin every 30 (thirty) days. Active SUMAtriptan (IMITREX) 100 MG tablet Take 100 mg by mouth once as needed for migraine. 12/26/19 Active albuterol 2.5 mg /3 mL (0.083 %) nebulizer solution Take 3 mL (2.5 mg total) by nebulization 4 (four) times a day as needed. 30 mL 03/12/19 Active LORazepam (ATIVAN) 0.5 MG tablet Take 1 tablet (0.5 mg total) by mouth every 6 (six) hours as needed for anxiety. 12 tablet 03/12/19 25 Active chlorhexidine (PERIDEX) 0.12 % solution Use as directed 15 mL in the mouth or throat 2 (two) times a day. 120 mL 09/11/19 25 Active omalizumab (XOLAIR) 150 mg/mL subcutaneous syringe Active ondansetron (ZOFRAN-ODT) 4 MG disintegrating tablet Take 1 tablet (4 mg total) by mouth every 8 (eight) hours as needed for nausea. 12 tablet 09/29/19 25 Active ondansetron (ZOFRAN-ODT) 4 MG disintegrating tablet (To-Go) Take 1-2 tablet(s) by mouth every 8 hours as needed for nausea/vomiting 6 tablet 11/03/19 25 Active Active Problems Problem Noted Date Diagnosed Date Psychiatric care 10/06/2024 snf current use of systemic steroids 07/03 Knee pain 07/03/2024 Chondromalacia of both patellae 07/03/2024 Osteoarthritis of both knees 07/03/2024 Rheumatoid arthritis 03/31/2024 Controlled type 2 diabetes m fadumo, without long-term current use of insulin 03/31/2024 Suicidal ideations 02/18/2024 Mental health problem 12/07/2023 Selective deficiency of IgG subclasses 4 Anxiety disorder 11/28/2022 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 Bleeding 11/20/2022 Assessment & Plan (11/20/2022 10:19 AM EDT): Psychiatry staff were concerned for possible vaginal bleeding on 11/18 and advised to consult [employer]ES MA[employer]GER No further bleeding has been noted by pt or staff Pt advised to follow up outpatient with [employer]IDE SALES MANAGER if there is concern for bleeding Constipation [...] disease 12/05/2021 Hearing loss 12/05/2021 Overview (07/03/2024): [facility] audiology Pernicious anemia 12/05/2021 Ureterolithiasis 11/25/2020 [...] Encounters Date Type Department Care Team Description 12/01/2024 11:00 AM EDT Infusion [facility] Infusion [address] [address] Aaron Cheng MD Selective deficiency of IgG subclasses (Primary Dx) 11/26/2024 11:26 PM EDT - 11/27/2024 2:48 AM EDT Emergency [facility] Emergency [address] [place] [address] Discharge Disposition: Home or Self Care 11/07/2024 11:00 AM EDT Infusion [facility] Infusion [address] [address] Aarno Cheng MD Selective deficiency of IgG subclasses (Primary Dx) 11/01/2024 10:09 PM EDT - 11/02/2024 1:50 AM EDT Emergency [facility] Emergency [address] [place] [address] Discharge Disposition: Home or Self Care 10/17/2024 11:00 AM EDT Infusion [facility] Infusion [address] [address] Aaron Cheng MD Selective deficiency of IgG subclasses (Primary Dx) 10/06/2024 4:07 PM EDT - 10/08/2024 11:28 AM EDT Emergency [facility] Emergency [address] [place] [address] Phillip Rico MD Savage, Justin G, DO Perez, Alberto Juan Ignacio, MD Discharge Disposition: Home or Self Care 10/05/2024 5:30 PM EDT - 10/05/2024 8:05 PM EDT Emergency [facility] Emergency [address] [place] [id number] Discharge Disposition: Home or Self Care 09/28/2024 3:47 PM EDT - 09/28/2024 9:57 PM EDT Emergency [facility] Emergency [address] [place] [address] Amador Bob MD, MPH, MAXIME Discharge Disposition: Home or Self Care 09/27/2024 4:40 PM EDT Office Visit [facility] at [address] [address] Phillip Roth, PA-C Teagan Florian PA-C Chronic pain of right knee (Primary Dx) 09/23/2024 11:00 AM EDT Infusion [facility]fusion [facility] [address] [place] [address] Aaron Cheng MD Selective deficiency of IgG subclasses (Primary Dx) 09/21/2024 4:31 PM EDT - 09/21/2024 9:48 PM EDT Emergency [facility] Emergency [address] [place] [address] Geremias Crow MD Discharge Disposition: Home or Self Care 09/15/2024 10:36 PM EDT - 09/16/2024 1:19 AM EDT Emergency [facility] Emergency [address] [place] [address] Teo Kirby DO Discharge Disposition: Home or Self Care 09/15/2024 Procedure Pass [facility], Ct Scan - [facility] [address] [place] [address] 09/10/2024 11:36 PM EDT - 09/11/2024 12:25 AM EDT Emergency [facility] Emergency [address] [place] [address] Teo Kirby, DO Discharge Disposition: Home or Self Care from Last 3 Months Immunizations Immunization Administration [...] Influenza, Unspecified Formulation 06/28,10/30/2015,01/21/2013,2007,12/26/2006,12/05/2004,11/12/2003,1 02/24/2002,11/27/2001,01/11/2001, 000 Novel [id number], Injectable 12/23/2008 Pneumococcal conjugate PCV13 11/23/2016 Pneumococcal [...] Cigarettes Q uit: 2012 Smokeless Tobacco: Never Tobacco Cessation:Counseling Given: No [...] EDT Inhaled Oxygen Concentration - - Weight 79.4 kg (175 lb) 11/01/2024 10:15 PM EDT Height 154.9 cm (5' 1 ) 11/01/2024 10:15 PM EDT Body Mass Index 33.07 11/01/2024 10:15 PM EDT Plan of Treatment Upcoming Encounters Date Type Department Care Team (Late st Contact Info) Description 12/22/2024 11:00 AM EST Infusion [facility] Infusion [address] [address] Aaron Cheng MD [address] [place] [phone] 01/13/2025 11:00 AM EST Infusion [facility] Infusion [address] [address] Aaron Cheng MD [address] [place] [address] 02/03/2025 11:00 AM EST Infusion [facility] Infusion [address] [address] Aaron Cheng MD [address] [place] [address] 02/24/2025 11:00 AM EST Infusion [facility] Infusion Center [address] [place] [address] Aaron Cheng MD [address] [place] [address] Health Maintenance Due Date Last Done Comments DEPRESSION SCREENING 1974 SMOKING Hx and SMOKELESS TOBACCO SCREENING 09/09/1975 HEPATITIS C SCREENING 1980 HIV ONE-TIME SCREENING (18-65 YEARS) 1980 PAP SMEAR 09/09/1983 COLOGUARD 09/09/2007 COLONOSCOPY 09/09/2007 COLORECTAL CANCER SCREENING 09/09/2007 FIT TEST 09/09/2007 FOBT 09/09/2007 SIGMOIDOSCOPY 09/09/2007 VIRTUAL COLONOSCOPY 09/09/2007 RSV VACCINE (1 - Risk 50-74 years 1-dose series) 2012 MAMMOGRAM 11/10/2023 11/09/2021, 08/13, 11/05/2017, Additional history exists DIABETIC EYE EXAM 07/03/2024 INFLUENZA VACCINE (#1) 2024 , 01/28/2022, 12/10/2020, Additional history exists COVID-19 VACCINE ( season) 2024 10/22/2021, 10/22/2021, 06/11/2021, Additional history exists LIPID PANEL 12/07/2024 12/08/2023, 10/15, 11/26/2018 HEMOGLOBIN A1C 01/24/2025 07/25/2024, 11/13, 11/11/2022, Additional history exists BLOOD PRESSURE 06/01/2025 12/01/2024 CARBAMAZEPINE (TEGRETOL) LEVEL 10/06/2025 10/06/2024, 09/21/2024, 12/10/2023, Additional history exists CREATININE LEVEL 11/01/2025 11/01/2024, , 10/05/2024, Additional history exists POTASSIUM LEVEL 11/01/2025 11/01/2024, 09/13, 10/05/2024, Additional history exists Adult Td,Tdap Booster 05/26/2030 [...] this topic Medical Devices Implanted Type Area Data Communications Analyst Device Identifier Shelf Expiration Date Model / Serial / Lot Stent Ureteral [id number] To 30cm Double Pigtail Suture Stretch Vl Positioner - [id number] Implanted:Qty: 1 on 11/26/2020 by Pérez Hall MD at [facility] Right: Ureter uTaP 05/08/2022 [id number] / / [id number] Procedures Procedure Name Priority Date/Time Associated Diagnosis Comments COVID PANDEMIC RESPIRATORY VIRAL ORDER (PRO) STAT 11/26/2024 11:59 PM EDT ECG 12-LEAD STAT 11/01/2024 11:13 PM EDT LIPASE STAT 11/01/2024 10:42 PM EDT LFTS (HEPATIC PANEL) STAT 11/01/2024 10:42 PM EDT BASIC METABOLIC PANEL STAT 11/01/2024 10:42 PM EDT CBC AND DIFFERENTIAL STAT 11/01/2024 10:42 PM EDT COVID PANDEMIC RESPIRATORY VIRAL ORDER (PRO) STAT 11/01/2024 10:30 PM EDT CARBAMAZEPINE (TEGRETOL) LEVEL STAT 10/06/2024 7:27 PM [...] AND DIFFERENTIAL STAT 09/15/2024 7:05 PM EDT HEMOGLOBIN A1C Routine 07/25/2024 5:54 PM EDT LIPID PANEL Routine 12/08/2023 6:37 AM EDT BI MAMMOGRAM OUTSIDE (NO INTERPRETATION) Routine 11/09/2021 12:00 AM EDT from Last 3 Months or Most Recently Relevant to Health Maintenance Results * COVID Pandemic Respiratory Viral Order (PRO) (11/26/2024 11:59 PM EDT) Only the most recent of2 resultswithin the time period is included. Test Ordered COVID, Flu has been ordered [facility] Specimen Source/Descriptio n NASOPHARYNGEAL SWAB [facility] Influenza A PCR Not Detected Not Detected [facility] Influenza B PCR Not Detected Not Detected [facility] SARS-CoV 2 (COVID-19) PCR Not Detected Not Detected [facility] Comment: SARS-CoV-2 not detected Negative results do not preclude SARS-CoV-2 infection and should not be used as the sole basis for patient management decisions. Negative results must be combined with clinical observations, patient history, and epidemiological information. Other (Nasopharyngeal swab) 11/26/2024 11:59 PM EDT 11/27/2024 12:04 AM EDT us Carlos A Pham MD BODY FLUIDS AND STOOLS O RDERABLES Final Result [facility] [address] [place] [address] * ECG 12-LEAD (11/01/2024 11:13 PM EDT) Only the most recent of3 resultswithin the time period is included. Ventricular Rate EKG/MIN 72 BPM [facility] Atrial Rate 72 BPM [facility] OK Interval 194 ms [facility] QRS Duration 86 ms [facility] QT Interval 414 ms [facility] QTC Interval 453 ms [facility] P Denhoff 52 degrees [facility] R Wave [place] 47 degrees [facility] T Wave [place] 74 degrees [facility] 11/01/2024 11:1 3 PM EDT 11/03/2024 2:12 PM EDT Narrative [facility] - 11/03/2024 2:12 PM EDT Normal sinus rhythm Normal ECG When compared with ECG of 28-Sep-2024 15:20, No significant change was found Confirmed by Karan Marie ([id number]) on 11/03/2024 2:12:39 PM us Teo Kirby DO ECG ORDERABLES Final Result [facility] * LFTs (hepatic panel) (11/01/2024 10:42 PM EDT) Only the most recent of5 resultswithin the time period is included. ALKALINE PHOSPHATASE 115 39 - 117 U/L [facility] TOTAL BILIRUBIN <0.2 0.0 - 1.2 mg/dL [facility] DIRECT BILIRUBIN <0.1 0.0 - 0.2 mg/dL [facility] Bilirubin (Indirect) NOT CALCULATED 0 - 1.5 mg/dL [facility] AST 13 0 - 37 U/L [facility] ALT 10 0 - 40 U/L [facility] TOTAL PROTEIN 7.4 6.5 - 8.0 g/dL [facility] ALBUMIN 4.0 3.9 - 4.8 g/dL [facility] GLOBULIN 3.4 1 - 4.8 g/dL [facility] A/G Ratio 1.18 1.00 - 4.80 RATIO [facility] Blood 11/01/2024 10:4 2 PM EDT 11/01/2024 10:48 PM EDT us Iggy Ga PA-C LAB BLOOD ORDERABLES Final R esult [facility] [address] [place] [address] * (ABNORMAL) CBC and differential (11/01/2024 10:42 PM EDT) Only the most recent of6 resultswithin the time period is included. WBC 8.14 4.00 - 11.00 K/uL [facility] RBC 4.22 4.00 - 5.20 M/uL [facility] HGB 12.3 12.0 - 16.0 g/dL [facility] HCT 39.0 36.0 - 46.0 % [facility] PLT 250 150 - 450 K/uL [facility] MCV 92.4 80.0 - 100.0 fL [facility] MCH 29.1 27.0 - 31.0 pg [facility] MCHC 31.5(L) 32.0 - 36.0 g/dL [facility] RDW 13.3 11.5 - 14.5 % [facility] MPV 9.8 8.4 - 12.0 fL [facility] NRBC 0.00 0.00 /100 WBCs [facility] ABSOLUTE NRBC 0.00 0.00 K/uL [facility] DIFF METHOD Auto [facility] NEUTS 60.4 48.0 - 76.0 % [facility] LYMPHS 32.6 18.0 - 41.0 % [facility] MONOS 5.3 4.0 - 11.0 % [facility] EOS 1.0 0.0 - 5.0 % [facility] BASOS 0.5 0.0 - 1.5 % [facility] Granulocytes, immature (%) 0.2 0.0 - 0.9 % [facility] ABSOLUTE NEUTS 4.92 1.92 - 7.60 K/uL [facility] ABSOLUTE LYMPHS 2.65 0.72 - 4.10 K/uL [facility] ABSOLUTE MONOS 0.43 0.16 - 1.10 K/uL [facility] ABSOLUTE EOS 0.08 0.00 - 0.50 K/uL [facility] ABSOLUTE BASOS 0.04 0.00 - 0.15 K/uL [facility] Granulocytes, immature 0.02 0.00 - 0.09 K/uL [facility] Blood 11/01/2024 10:4 2 PM EDT 11/01/2024 10:48 PM EDT Iggy Ga PA-C LAB BLOOD ORDERABLES Final R esult Performing Organization Address City/[facility]/ZIP Co de Phone Number [address] [phone] * Lipase (11/01/2024 10:42 PM EDT) Only the most recent of2 resultswithin the time period is included. LIPASE 39 16 - 63 U/L [facility] Blood 11/01/2024 10:4 2 PM EDT 11/01/2024 10:48 PM EDT Iggy CASTANON-C LAB BLOOD ORDERABLES Final R esult Performing Organization Address [facility] Co de Phone Number [address] [address] * (ABNORMAL) Basic metabolic panel (11/01/2024 10:42 PM EDT) Only the most recent of6 resultswithin the time period is included. SODIUM 138 133 - 146 mmol/L [facility] CHLORIDE 107 96 - 108 mmol/L [facility] POTASSIUM 3.5 3.3 - 5.1 mmol/L [facility] CO2 20(L) 21 - 35 mmol/L [facility] BUN 12 6 - 19 mg/dL [facility] CREATININE 0.50 0.5 - 1.5 mg/dL [facility] GLUCOSE 115(H) 70 - 99 mg/dL [facility] CALCIUM 8.7 8.4 - 10.3 mg/dL [facility] EGFR 106 >59 mL/min/1.7 3m2 [facility] Comment:Estimated glomerular filtration rate calculated using the CKD-EPI refit equation. ANION GAP 15 10 - 20 mmol/L [facility] Blood 11/01/2024 10:4 2 PM EDT 11/01/2024 10:48 PM EDT Iggy CASTANON-[place] LAB BLOOD ORDERABLES Final R esult Performing Organization Address City/[facility]/ZIP Co de Phone Number [address] [address] * Ethanol, blood (10/06/2024 7:27 PM EDT) Only the most recent of2 resultswithin the time period is included. ETHANOL <10 <10 mg/dL [facility] Blood 10/06/2024 7:27 PM EDT 10/06/2024 7:33 PM EDT us Phillip Rioc MD LAB BLOOD ORDERABLES Final Result Performing Organization Address [facility] de Phone Number [address] [phone] * (ABNORMAL) Acetaminophen level (10/06/2024 7:27 PM EDT) Only the most recent of2 resultswithin the time period is included. ACETAMINOPHEN <5.0(L) 15.0 - 30.0 ug/mL [facility] Blood 10/06/2024 7:27 PM EDT 10/06/2024 7:33 PM EDT us Phillip Rico MD LAB BLOOD ORDERABLES Final Result Performing Organization Address [facility] de Phone Number [address] [address] * (ABNORMAL) Salicylates (10/06/2024 7:27 PM EDT) Only the most recent of2 resultswithin the time period is included. SALICYLATES <0.3(L) 2.8 - 19.9 mg/dL [facility] Blood 10/06/2024 7:27 PM EDT 10/06/2024 7:33 PM EDT us Phillip Rico MD LAB BLOOD ORDERABLES Final Result Performing Organization Address [facility] Co de Phone Number [address] [place] [address] * (ABNORMAL) Carbamazepine (Tegretol) level (10/06/2024 7:27 PM EDT) Only the most recent of2 resultswithin the time period is included. CARBAMAZEPINE 7.7(L) 8.0 - 12.0 ug/mL [facility] Blood 10/06/2024 7:27 PM EDT 10/06/2024 7:33 PM EDT us Phillip Rico MD LAB BLOOD ORDERABLES Final Result [address] [address] * Toxicology screen, urine (10/06/2024 6:43 PM EDT) Only the most recent of2 resultswithin the time period is included. Pathologist [facility] URINE CANNABINOIDS NONE DETECTED NONE DETECTED [facility] Comment:Cutoff: 50 ng/mL URINE COCAINE METAB NONE DETECTED NONE DETECTED [facility] Comment:Cutoff: 300 ng/mL URINE AMPHETAMINES NONE DETECTED NONE DETECTED [facility] Comment:Cutoff: 1000 ng/mL URINE METHADONE NONE DETECTED NONE DETECTED [facility] Comment:Cutoff: 300 ng/mL URINE OPIATES NONE DETECTED NONE DETECTED [facility] Comment:Cutoff: 300 ng/mL URINE PHENCYCLIDINE NONE DETECTED NONE DETECTED [facility] Comment:Cutoff: 25 ng/mL URINE OXYCODONE NONE DETECTED NONE DETECTED [facility] Comment:Cutoff: 300 ng/mL URINE BARBITURATES NONE DETECTED NONE DETECTED [facility] Comment:Cutoff: 200 ng/mL URINE BENZODIAZEPINE NONE DETECTED NONE DETECTED [facility] Comment:Cutoff: 200 ng/mL URINE BUPRENORPHINE NONE DETECTED NONE DETECTED [facility] Comment:Cutoff: 5 ng/mL Fentanyl, urine NONE DETECTED NONE DETECTED [facility] Comment: Cutoff: 5 ng/mL INTERPRETATION FOR TOXICOLOGY PANEL: These results are unconfirmed and should be used for Medical Treatment purposes only. Urine (Urine) 10/06/2024 6:4 3 PM EDT 10/06/2024 6:53 PM EDT us Phillip Rico MD URINE ORDERABLES Final Resu lt Performing Organization Address [facility] de Phone Number [address] [address] * Troponin (09/28/2024 5:16 PM EDT) Only the most recent of2 resultswithin the time period is included. Troponin-T, HS Gen5 <6 0 - 9 ng/L [facility] Blood 09/28/2024 5:16 PM EDT 09/28/2024 5:19 PM EDT Amador Bob MD, MPH, MAXIME LAB BLOOD O RDERABLES Final Result Performing Organization Address [facility] de Phone Number [address] [phone] * Phosphorus (09/28/2024 4:40 PM EDT) PHOSPHORUS 3.2 2.7 - 4.5 mg/dL [facility] Blood 09/28/2024 4:40 PM EDT 09/28/2024 4:43 PM EDT Amador Bob MD, MPH, MAXIME LAB BLOOD O RDERABLES Final Result Performing Organization Address [facility] Co de Phone Number [address] [phone] * Magnesium (09/28/2024 4:40 PM EDT) MAGNESIUM 1.9 1.6 - 2.6 mg/dL [facility] Blood 09/28/2024 4:40 PM EDT 09/28/2024 4:43 PM EDT Amador Bob MD, MPH, MAXIME LAB BLOOD O RDERABLES Final Result Performing Organization Address [facility]/ZIP Co de Phone Number [address] [address] * Creatinine, random urine (09/23/2024 10:40 AM EDT) URINE CREATININE 23 mg/dL [facility] Urine 09/23/2024 10:4 0 AM EDT 09/23/2024 11:44 AM EDT us Aaron Cheng MD URINE ORDERABLES Final Result Performing Organization Address [facility] de Phone Number [address] [phone] * Urinalysis w/reflex Urine Culture (09/21/2024 4:35 PM EDT) Only the most recent of2 resultswithin the time period is included. COLOR Yellow Yellow [facility] CLARITY Clear [facility] GLUCOSE Negative Negative [facility] BILI Negative Negative [facility] KETONES Negative Negative [facility] SPECIFIC GRAVITY 1.015 1.005 - 1.030 [facility] BLOOD Negative Negative [facility] PH 6.5 5.0 - 8.0 [facility] Protein-UA Negative Negative [facility] NITRITE Negative Negative [facility] Leukocyte esterase, ur Negative Negative [facility] Urine (Urine) 09/21/2024 4:3 5 PM EDT 09/21/2024 4:44 PM EDT us Phillip Rico MD URINE ORDERABLES Final Resu lt Performing Organization Address [facility] de Phone Number [address] [address] * CT ABDOMEN/PELVIS (KIDNEY STONE) WITHOUT CONTRAST [...] PM EDT) Special Requests None Reflexed from [id number] 09/16/2024 12:37 AM EDT [facility] Urine Culture >100,000 colony forming units per mL KLEBSIELLA PNEUMONIAE(A) 09/18/2024 7:25 AM EDT [facility] Urine 09/15/2024 10:4 4 PM EDT 09/16/2024 [...] <=0.25: Susceptible Klebsiella pneumoniae Extended Spectrum B-lactamase SC C METHOD Negative Klebsiella pneumoniae Gentamicin JUANITO METHOD <=1: Susceptible Klebsiella pneumoniae Levofloxacin JUANITO METHOD <=0.12: Susceptible Klebsiella pneumoniae Nitrofurantoin JUANITO METHOD 64: Intermediate Klebsiella pneumoniae Piperacillin-tazobactam JUANITO METH OD <=4: Susceptible Klebsiella pneumoniae Trimethoprim/sulfamethoxazole SC C METHOD <=20: Susceptible Comment: Phillip Rico MD MICROBIOLOGY - GENERAL ORDE [facility] Final Result Performing Organization Address [facility] Co de Phone Number [address] [address] * (ABNORMAL) Urine sediment (09/15/2024 10:44 PM EDT) WBC 21-49(A) NONE SEEN /hpf [facility] RBC NONE SEEN NONE SEEN /hpf [facility] URINE EPITHELIAL 0-4(A) NONE SEEN [facility] MUCUS NONE SEEN NONE SEEN /hpf [facility] BACTERIA 1+(A) NONE SEEN /hpf [facility] 09/15/2024 10:4 4 PM EDT 09/16/2024 12:15 AM EDT Phillip Rico MD URINE ORDERABLES Final Resu lt Performing Organization Address [facility]/ZIP Co de Phone Number [address] [address] * Hemoglobin A1c (07/25/2024 5:54 PM EDT) HEMOGLOBIN A1C 5.8 4.3 - 5.8 % [facility] 07/25/2024 5:54 PM EDT 07/25/2024 5:59 PM EDT Maryann Perales PA-C LAB BLOOD ORDERABLES Fi nal Result Performing Organization Address City/[facility]/ZIP Co de Phone Number [address] [address] * (ABNORMAL) Lipid panel (12/08/2023 6:37 AM EDT) HDL 66 mg/dL [facility] Comment: Interpretation <40 mg/dL: Low HDL cholesterol (major risk factor for CHD) Greater than or equal to 60 mg/dL: High HDL cholesterol ( negative risk factor for CHD) HDL - cholesterol is affected by a number of factors, e.g. smoking, excerise, hormones, sex and age. CHOLESTEROL 192 0 - 240 mg/dL [facility] TRIGLYCERIDES 137 30 - 160 mg/dL [facility] LDL 99 50 - 129 mg/dL [facility] Comment: LDL levels in terms of risk for coronary heart disease: <100 mg/dL: Optimal 100-129 mg/dL: Near or above optimal 130-159 mg/dL: Borderline high 160-189 mg/dL: High >190 mg/dL: Very High CARDIAC RISK RATIO 2.9(L) 3.3 - 4.4 C [facility] Blood 12/08/2023 6:37 AM EDT 12/08/2023 7:28 AM EDT Julia Duncan MD LAB BLOOD ORDERABLES Final Re sult Performing Organization Address City/[facility]/ZIP Co de Phone Number [address] [address] * Mammogram Outside (No Interpretation) (11/09/2021 12:00 AM EDT) Narrative Astrid Manrique - 04/06/2023 2:37 PM EST This study is for PACS storage only and not for interpretation. Procedure Note Astrid Manrique - 04/06/2023 This study is for PACS storage only and not for interpretation. us Unknown Unknown MD [facility] OUTSIDE IMAGING W/OUT INT ERPRETATION Final Result from Last 3 Months or Most Recently Relevant to Health Maintenance Additional Health Concerns Infection Onset Date Last Indicated CoV-Risk 11/26/2024 11/26/[address] [place] [address] CARE MEDICARE REPLACEMENT MEDICARE PART A & B [address] [place] [id number] [place] [address] CARE MEDICARE REPLACEMENT MEDICARE PART A & B ONE CARE MEDICARE REPLACEMENT MEDICARE PART A & B [facility] CARE MEDICARE REPLACEMENT MEDICARE PART A & B [place] [id number] MEDICARE PART A & [place] [id number] [facility] ONE CARE MEDICARE REPLACEMENT [place] [id number] MEDICARE PART A & B Advance Directives For more information, please contact: [phone] (9AM - 5PM [facility], Sunday-Sunday) * Full Code (Latest Code Status on File) Date Activated Date Inactivated Comments 11/25/2020 5:03 PM Question Answer Comments Code Status Confirmed With: Patient * Full Code (Presumed) Date Activated Date Inactivated Comments 09/04/2019 2:29 PM 11/25/2020 5:03 PM * Full Code (Presumed) Date Activated Date Inactivated Comments 11/25/2018 10:11 PM 12/02/2018 5:20 PM Care Teams Cylinder Press Operator Relationship Specialty Start Date End Date Jenny Pugh MD [address] [place] [address] [email or web address] PCP - General Family Medicine 08/22/24 Tamiko Manrique, BEBETOC [address] [place] [address] Physician County Assessor 11/14/23 Additional Source Comments The information contained in this document represents components of the legal health record. It is not the complete legal health record.[facility]
--- OUTSIDE RECORDS SUMMARY | 2024-12-05 14:14 | XMS_ITS | Encounter Summary ---
Author Organization [facility] Address [address] [place] [address] Phone Care Team Providers Care Interior Design Principal Name Role Phone Arabella Cerda NP Primary Care Provider [phone] Clare Wilson MD Primary Care Provider + Tamiko Manrique PA-C Unavailable [phone] Clare Wilson MD Primary Care Provider + Jenny Pugh MD Primary Care Provider [phone] Encounter Details Date Type Department Care Team (Late st Contact Info) Description 02/17/2023 Procedure Pass [facility], Ct Scan - [address] [id number] Social History Tobacco Use Types Packs/Day Years [...] 7:06 PM Kathy Candelaria, CAROL ANN * [place] Suicide Severity Rating Scale (Screener/Recent Self-Report) Question [...] 12/22/2024 11:00 AM EST Infusion [facility] Medical Infusion [address] [address] Aaron Cheng MD [address] [place] [address] 01/13/2025 11:00 AM EST Infusion [facility] Infusion [address] [address] Aaron Cheng MD [address] [place] [address] 02/03/2025 11:00 AM EST Infusion [facility] Medical Infusion [address] [address] Aaron Cheng MD [address] [place] [address] 02/24/2025 11:00 AM EST Infusion [facility] Infusion [address] [address] Aaron Cheng MD [address] [place] [address] documented as of this encounter Visit Diagnoses [...] documented as of this encounter Care Teams Interior Design Principal Relationship Specialty Start Date End Date Arabella Cerda NP [address] [place] [address] PCP - General Family Medicine 08/17/21 09/15/23 Clare Wilson MD [address] [place] [address] [email or web address] PCP - General Family Medicine 09/16/23 12/05/23 Clare Wilson MD [address] [place] [address] [email or web address] PCP - General Family Medicine 12/06/23 03/11/24 Jenny Pugh MD [address] [place] [address] [email or web address] PCP - General Family Medicine 08/22/24 Tamiko Manrique PA-C [address] [place] [address] [email or web address] Physician Tar And Ammonia Pump Operator 11/14/23 documented as of this encounter Additional Source Comments The information contained in this document represents components of the legal health record. It is not the complete legal health record.[facility]
--- OUTSIDE RECORDS SUMMARY | 2024-12-05 14:14 | XMS_ITS | Continuity of Care Document ---
Author Name [facility], Medical Address [address] [place] [address] Organization Unknown Address [address] [place] [address] Medications No known medications Problems No known problems
--- OUTSIDE RECORDS SUMMARY | 2024-12-05 14:14 | XMS_ITS | Encounter Summary ---
Author Organization [facility] Address [address] [facility] [address] [place] [address] Phone Care Team Providers Care Javascript Software Engineer Name Role Phone Arabella Cerda NP Primary Care Provider [phone] Clare Wilson MD Primary Care Provider + Tamiko Manrique PA-C Unavailable [phone] Clare Wilson MD Primary Care Provider + Jenny Pugh MD Primary Care Provider [phone] Encounter Details Date Type Department Care Team (Late st Contact Info) Description 07/03/2021 Procedure Pass [facility], Ct Scan - [address] [id number] Social History Tobacco Use Types Packs/Day Years [...] 3:56 PM EDT Dorcas Weber, RN * [place] Suicide Severity Rating Scale (Screener/Recent Self-Report) Question Answer Date of Assessment Author 1. Wish to be (Past 1 Month) No 022 3:56 PM EDT Dorcas Weber, CAROL ANN 2. Non-Specific Active Suici faith Thoughts (Past 1 Month) No 07/03/2021 3:56 PM EDT Sarah Weber, CAROL ANN 6. Suicidal Behavior (Lifetime) Yes 2 3:56 PM EDT Dorcas Weber, CAROL ANN 6. Suicidal Behavior (3 Months) No 2 3:56 PM EDT Dorcas Weber RN documented as of this encounter Plan of Treatment Upcoming Encounters Date Type Department Care Team (Late st Contact Info) Description 12/22/2024 11:00 AM EST Infusion [facility] Medical Infusion [facility] [address] [place] [address] Aaron Cheng MD [address] [place] [address] 01/13/2025 11:00 AM EST Infusion [facility] Infusion [address] [address] Aaron Cheng MD [address] [place] [address] 02/03/2025 11:00 AM EST Infusion [facility] Infusion [address] [address] Aaron Cheng MD [address] [place] [address] 02/24/2025 11:00 AM EST Infusion [facility] Infusion [address] [address] Aaron Cheng MD [address] [place] [address] documented as of this encounter Visit Diagnoses Not on filedocumented in this encounter Additional Health Concerns Infection Onset Date Last Indicated Resolved Time MRSA Comment:Infection Loaded by the Load Infection Utility 06/28/2016 06/28/2016 03/29/2022 1:[address] CoV-Risk 12/05/2021 12/05/2021 12/16/2021 1:22 AM EDT [...] documented as of this encounter Care Teams Javascript Software Engineer Relationship Specialty Start Date End Date Arabella Cerda NP [address] [place] [address] PCP - General Family Medicine 08/17/21 09/15/23 Clare Wilson MD [address] [place] [address] [email or web address] PCP - General Family Medicine 09/16/23 12/05/23 Clare Wilson MD [address] [place] [address] [email or web address] PCP - General Family Medicine 12/06/23 03/11/24 Jenny Pugh MD [address] [place] [address] [email or web address] PCP - General Family Medicine 08/22/24 Tamiko Manrique PA-C [address] [place] [address] [email or web address] Physician Beef Farmer 11/14/23 documented as of this encounter Additional Source Comments The information contained in this document represents components of the legal health record. It is not the complete legal health record.[facility]
--- OUTSIDE RECORDS SUMMARY | 2024-12-05 14:14 | XMS_ITS | Clinical Summary ---
Author Organization [facility] Address [address] [place] [address] Care Team Providers Care Blood Bank Supervisor Name Role Phone Lexa Wilsonsun Sharpe Primary Care Provider [phone] Allergies Active Allergy Reactions Criticality Noted Date [...] mellitus 12/05/2021 Hearing loss 12/05/2021 Overview (12/05/2021): [facility] audiology History of total hysterectom y with bilateral salpingo-oophorectomy (BSO) 12/05/2021 Lower urinary tract infectious disease 2 Menopausal syndrome 12/05/2021 Obesity 12/05/2021 Osteoarthritis 12/05/2021 Pelvic pain in female 12/05/2021 Pernicious anemia 12/05/2021 Posttraumatic stress disorder 12/05/2021 Respiratory abnormalities 12/05/2021 Shoulder pain 12/05/2021 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 Vertigo 12/05/2021 Trigger finger of thumb 11/10/2021 Overview (11/10/2021): Added automatically from request for surgery [id number] Trigger index finger of left hand 11/10/2021 Overview (11/10/2021): Added automatically from request for surgery [id number] COVID-19 virus infection 11/25/2020 Overview (12/05/2021): Last [...] history exists Medical Devices Implanted Type Area 3Rd Pressman Device Identifier Shelf Expiration Date Model / Serial / Lot Monroe Suture Double Loaded With White/Blue White/Black Suturetape [employer] - [id number] Implanted:Qty: 1 on 04/02/2020 by Luis Minor MD at [facility] Implant Right: Shoulder [employer] 01/11/2023 [id number] / / [id number] Insurance [facility] [place] [id number] Advance Directives * Full Code (Latest Code Status on File) Date Activated Date Inactivated Comments 04/02/2020 10:29 AM 04/02/2020 6:36 PM Healthcare Agents on File Name Relationship Healthcare Agent [facility] p Communication Pilar Olvera Sister Next of Kin [phone] (Kamala griffin) Care Teams Blood Bank Supervisor Relationship Specialty Start Date End Date Clare Wilson [address] [place] [phone] PCP - General Family Medicine 09/10/23
--- OUTSIDE RECORDS SUMMARY | 2024-12-05 14:14 | XMS_ITS | Encounter Summary ---
Author Organization [facility] Address [address] [place] [address] Care Team Providers Care Talent Scout Name Role Phone Clare Wilson Primary Care Provider [phone] Encounter Details Date Type Department Care Team (Late st Contact Info) Description 01/16/2024 Orders Only [facility] Surgery [address] [place], [place] [phone] Jesus Gillis MD [address] [place] [address] Social History Tobacco Use Types Packs/Day Years [...] on filedocumented in this encounter Care Teams Talent Scout Relationship Specialty Start Date End Date Clare Wilson [address] [place] [phone] PCP - General Family Medicine 09/10/23 documented as of this encounter
== END 2024-12-05 12:14 | disposition home or self-care (01) ==
LOC: HO.PMC 11:55
PROVIDERS: PCP Family Medicine; Visit Provider Nurse Practitioner Family
DX: M25.512 Pain in left shoulder (principal); M75.32 Calcific tendinitis of left shoulder
CPT/HCPCS: 99214; G2211

== ENCOUNTER → 2024-12-05 11:55 | Outpatient (BNVA) | payer OTHER, SELFPAY | PROVIDERS: PCP Family Medicine; Visit Provider Nurse Practitioner Family | DX: M75.32 Calcific tendinitis of left shoulder (principal); M25.512 Pain in left shoulder; Z98.890 Other specified postprocedural states | CPT/HCPCS: 99212 ==

== ENCOUNTER 2024-12-25 13:50 | Outpatient (REF) | payer OTHER, SELFPAY ==
--- OUTSIDE RECORDS SUMMARY | 2024-12-25 17:17 | XMS_ITS | Encounter Summary ---
Author Organization [facility] Address [address] [facility] [address] [place] [address] Encounters * CPT with Medical [facility] at [employer] on 2024-12-08 { reasonForRequest : right ear bothering her, vertigo , patientReports&quot ;: , denies :[ Sudden onset of dental pain, unable to manage own secretion s , Nosebleed lasting longer than one hour; unable to stop bleeding , Throat swe lling/difficult swallowing ], chiefComplaints : Ear Complaint, Dizziness ,& quot;pmh : COPD/Asthma, Severe Persistent Mental Illness (SPMI), Hypertension, Anxiety Disorder, Rheumatoid Arthritis, Pneumonia , allergies : Aspirin, Doxycycline, Morphine, Bactrim, Penicillins, Augmentin , otherAllergies :null, painAssessment&quot ;: , visitOutcome : , additionalComments : 64 y.o female complains of Ear Complaint, Dizziness\nPatient calling reporting \ my R ear has been acting up all weekend\ . Patient reports the R ear gets infected easily, states \ I get swimmer's ear\ . Patient also reports she is having episodes of dizziness and she does have a history of vertigo. Patient reports pain \ inside the canal\ of the R ear. Patient states she hastried Acetaminophen every 6 hours with some relief in pain. Patient reports the dizziness is room spinning when she gets the episodes. Patient states she feels warm, but denies known fever and denies chills. I provided information on the mobile health provider response time and advised the patient and/or caregiver to monitor reported signs and symptoms. I discussed the warning signs of when to seek emergency care -Allison Escobar RN } Patient Chief complained today of right-sided ear pain. Patient notes that all signs and symptoms have been occurring for approximately 3 days prior to [facility] arrival on scene today. Patient also expresses that she does have an extensive history of ear infections. Patient states at last and reported ear infection was approximately 6 months ago where she was prescribed and ear drop solution. Patient also does express vertigo. However she does have a noted history of vertigo which is being treated. Patient also states that she has been taking Tylenol every 6 hours with general positive relief. Patient today would appreciate a generalized assessment as well as possible treatment. Patient currently expresses no signs and symptoms of chest pain, nvd, headache and or changes in vision. Patient allergies noted. Non-neural focal exam, afebrile, vital signs fully within normal limits for the baseline of the patient. (Hypertensive ). Patient able to ambulate at her appropriate baseline without the assistance of a walking device and or a person. Upon auscultations of lungs [facility] note slight congestion. However,no difficulty with immediate breathing. Benign abdominal exam, no new or worsening noted lower extremity edema. Patient is CaoX4 with a GCS of 15. [facility] Amparo jenkins consulted. Patient is informed of findings. Patient informed she may take Tylenol PRN every 4 hours for pain relief as needed. Patient also informed she may use her Duo nebulizer approximately every 4 to 5 hours as needed for assistance with any congestion and or shortness of breath. [facility] sends over prescription to patient preferred pharmacy ear solution antibiotic. [facility] provider educates patient on general red flag signs and symptoms and expresses to call emergency services if any. Present. Patient told tocall her PCP at earliest convenience for follow-up as needed. IV_(FLUIDS_AND/OR_MEDICATION), MEDICATION_IM, ORAL_MEDICATION, POC_BLOODWORK, ORTHOSTATIC_VITAL_SIGNS, PO_MEDICATION Written by Medical instED on 2024-12-08
--- OUTSIDE RECORDS SUMMARY | 2024-12-25 17:17 | XMS_ITS | Continuity of Care Document ---
Author Name [facility], Medical Address [address] [place] [address] Organization Unknown Address [address] [place] [address] Medications No known medications Problems No known problems
--- OUTSIDE RECORDS SUMMARY | 2024-12-25 17:17 | XMS_ITS | Continuity of Care Document ---
Author Name [facility], Medical Address [address] [place] [address] Organization Unknown Address [address] [place] [address] Medications No known medications Problems No known problems
--- OUTSIDE RECORDS SUMMARY | 2024-12-25 17:18 | XMS_ITS | Continuity of Care Document ---
Author Organization [employer] [facility], [facility] Address [address] [place] [address] Care Team Providers Care Divisional Storekeeper Name Role Phone HIM CCA OTHER PONCHO BAHENA Primary Care Provider Assessment Encounter Date Assessment Date Assessment LastModified by Organization Details LastModified Time 12/21/2024 12/21/2024 Ms. Huang is a 64 yo F with COPD/Asthma, Severe Persistent Mental Illness (SPMI), Hypertension, Anxiety Disorder, Rheumatoid Arthritis, Pneumonia, Kidney Stones who is calling today about RUQ pain. Per patient and medic, is calling today with lower left abdominal pain has now evolved into RUQ pain. No rigidity or guarding with medic. 10/22 abdominal pain. No recent injuries. No bruising. Unable to do blood work on Sunday, but abdominal pain never really went away. Just evolved. Now using Tylenol with minimal changes to pain admin. Denies n/v. Denies fevers. No cold/cough sx. IV able to be obtained with medic. Still has her appendix, s/p cholecystectom y. Given the patient's presenting pain and sx, will need imaging. She's had consistent and chronic pain now for about 3 days. Non responsive to tylenol and toradol. Did consider pancreatitis. POC UA was done on Sunday and was negative for infection at the time. Unlikely pyelonephritis . No c/f cystitis. Will defer repeat POC UA at this time. Unable to get blood with medic 2/2 patient's dehydration status. Will need blood work, imaging, and sx management and imaging at ER. Patient normally goes to [facility]. Will call ahead. Elizabeth MAHARAJ for sign out: 10:30pm. I provided real -time medical direction via phone for this encounter, and was available for additional phone based assistance as needed. I have reviewed and agree with the Assessment and Plan as documented by the Beef Skinner. We discussed the diagnostic uncertainty of home visits and the risk associated with this. In this case the patient and I felt transfer to the ER was safest for disposition and continued care as their needs exceeded what could safely be supported in the home setting. [email or web address] Not available 12/21/2024 22:40:29 Plan of Treatment Reminders Order Date Submit [...] Abnormal Flag Note LastModifiedBy Organization Detail LastModifiedTime 12/20/1912/22/2024 URINE CULTU RE, UROLO GY SUNITA P urine culture, urology workup Final report Not Available [facility] ([facility]) [address] [place], [address], 12/22/2024 06:05:53 12/20/1912/22/2024 URINE CULTU RE, UROLO GY SUNITA P result 1 Lactob acillu s specie s 10,00 0-25, 000 colon y formi ng units per mL Susce ptibi lity not elsa lly perfo rmed on this organ ism. Not Available [facility] ([facility]) [address] [facility], [place], [address], 12/22/2024 06:05:53 Result Notes None recorded. Medical Equipment None Reported. Allergies Allergen ID Allergen Name Allergen Category Reaction Reaction Severity Criticality Documentation Date Start Date Code Code System Note Provider Name and Address Organization Details Recorded Time 05056 sulfameth oxazole / trimethop rim medicatio n Not available Not available Not available 12/07/2024 52973 RxNorm Not Available [employer] - External Data Service - prod 19:58:48 13172 Thiazide (substanc e) medicatio n Not available Not available Not available 12/07/2024 80295 6002 SNOMED Not Available [employer] External Data Service - prod 19:58:48 05566 amoxicill in medicatio n Not available Not available Not available 12/07/2024 723 RxNorm Not Available [employer] - External Data Service - prod 19:58:48 00969 amoxicill in / clavulana te medicatio n Not available Not available Not available 12/07/2024 35504 RxNorm Not Available [employer] - External Data Service - prod 19:58:48 60773 quetiapin e medicatio n Not available Not available Not available 12/07/2024 72796 RxNorm Not Available [employer] - External Data Service - prod 19:58:48 38552 aspartame food,medi cation Not available Not available Not available 12/07/2024 76407 24 RxNorm Not Available [employer] - External Data Service - prod 19:58:50 08254 Iodinated contrast media (substanc e) medicatio n Not available Not available Not available 12/07/2024 41576 2004 SNOMED Not Available [employer] - External Data Service - prod 19:58:50 53140 lactose food,medi cation Not available Not available Not available 12/07/2024 6211 RxNorm Not Available [employer] - External Data Service - prod 19:58:50 36108 Inderal medicatio n Not available Not available Not available 12/07/2024 00344 0 RxNorm Not Available [employer] - External Data Service - prod 19:58:51 62004 methyclot hiazide medicatio n Not available Not available Not available 12/14/20242015 6860 RxNorm Pt state s do not recal l react ion Not Available [employer] - External Data Service - prod 17:33:25 79760 cephalexi n medicatio n diarrhea Not available high 12/14/20242022 2231 RxNorm Not Available [employer] [employer] External Data Service - prod 17:33:34 10764 clavulani c acid Not available Not available Not available Not available 12/14/20242022 04476 RxNorm Other React ion(s ): stoma ch pain Not Available [employer] - prod 17:33:34 64352 cow milk allergeni c extract food,medi cation Not available Not available high 12/14/20242022 77157 5 RxNorm Other React ion(s ): can take with lacta id Not Available [employer] - prod 17:33:34 92640 onion extract food,medi cation Not available Not available high 12/14/20242022 09086 69 RxNorm Other React ion(s ): migra ine Not Available [employer] - prod 17:33:34 37583 polyethyl alejo glycols medicatio n Not available Not available high 12/14/20242022 8516 RxNorm Not Available [employer] - prod 17:33:34 22429 potassium chloride medicatio n Not available Not available high 12/14/20242022 8591 RxNorm Not Available [employer] - prod 17:33:34 79147 Shellfish (substanc e) food,medi cation Not available Not available high 12/14/20242022 74673 9006 SNOMED Other React ion(s ): Anaph ylaxi s Not Available [employer] - prod 17:33:34 15983 sodium benzoate medicatio n Not available Not available high 12/14/20242022 53572 RxNorm Not Available [employer] - prod 17:33:34 37585 Substance with sulfonami de structure and antibacte rial mechanism of action (substanc e) medicatio n hives Not available Not available 12/14/20242013 34257 8003 SNOMED Other React ion(s ): unkno wn react ion sever ity Not Available [employer] - prod 17:33:34 50621 trimethop rim medicatio n Not available Not available high 12/14/20242022 27769 RxNorm Other React ion(s ): hives Not Available [place] - External Data Service - prod 5 17:33:34 2118 aspirin medicatio n Not available Not available Not available 04/30/2022 1191 RxNorm Not Available [employer] - production 5 20:20:50 2119 morphine medicatio n Not available Not available Not available 04/30/2022 7052 RxNorm Not Available [employer] - production 5 20:20:50 2120 Augmentin medicatio n Not available Not available Not available 04/30/2022 55573 2 RxNorm Not Available [employer] - production 5 20:20:50 4312 Bactrim medicatio n Not available Not available Not available 02/20/2023 81955 9 RxNorm Not Available [employer] - production 4 03:41:14 4313 sulfameth oxazole / trimethop rim medicatio n Not available Not available Not available 02/20/2023 28399 RxNorm Marita Ramos MD [address] [place] [address],[address], [place], [address], [employer], [employer] 4 14:13:42 4314 doxycycli ne Not available Not available Not available Not available 02/20/2023 3640 RxNorm Not Available [employer] - production 4 03:41:14 5895 Seroquel medicatio n Not available Not available Not available 09/30/2023 26101 RxNorm GAURAV DHILLON MD [address] [place] [address],[address], [place], [address], [employer], [employer] 4 18:08:17 5896 fluoxetin e medicatio n Not available Not available Not available 09/30/2023 4493 RxNorm GAURAV DHILLON MD [address] [place] [address],[address], [place], [address], [employer], [employer] 4 18:08:31 5897 nabumeton e medicatio n Not available Not available Not available 09/30/2023 79823 RxNorm GAURVA DHILLON MD [address] [facility],[address], [place], [address], [employer] 4 18:08:46 5898 propranol ol medicatio n Not available Not available Not available 09/30/2023 8787 RxNorm GAURAV DHILLON MD [address] [place] [address],[address], [place], [address], [employer] 4 18:09:03 7995 Product containin g penicilli n (product) medicatio n Not available Not available Not available 12/11/2023 02745 8001 SNOMED Not Available [employer] - production [...] active Not Available Not Available Not Available benzonatate 200 mg capsule TAKE 1 [...] day by oral route for 2 days. 2024 active Not Available Not Available Not Avai lable naproxen 250 mg tablet TAKE 1 TABLET TWICE A DAY BY ORAL ROUTE NEEDED. active Not Available Not Available No t Available Diflucan 150 mg tablet Take 1 tablet every week by oral route for 1 day, for 2 weeks. 2024 active Not Available Not Available Not Avai lable metronidazol e 500 mg tablet active Not [...] Available oxycodone-ac etaminophen 5 mg-325 mg tablet TAKE 1 TABLET BY MOUTH EVERY 4 HOURS NEEDED FOR PAIN active Not Available Not Available No t Available terbinafine HCl 250 mg tablet active [...] active Not Available Not Available Not Available nystatin 100,000 unit/gram topical powder APPLY TO THE AFFECTED AREA(S) BY TOPICAL ROUTE 2 TIMES PER DAY 2024 active Not Available Not Available Not Avai lable lorazepam 1 mg tablet active Not Available [...] Available ondansetron 4 mg disintegrati ng tablet Place 1 tablet every 6 hours by translingua l route, for prn nausea. 2024 active Not Available Not Available Not Avai lable topiramate 100 mg tablet active Not Available Not Available Not Available fluticasone propionate 50 mcg/actuatio n nasal spray,suspen zoe [place] 1 spray every day by intranasal route. [...] active Not Available Not Available Not Available Ciprodex 0.3 %-0.1 % ear drops,suspen zoe INSTILL 4 DROPS INTO AFFECTED EAR(S) BY OTIC ROUTE 2 TIMES PER DAY FOR 7 DAYS 2024 active Not Available Not Available Not Avai lable Alcohol Prep Pads USE TWICE DAILY DIRECTED [...] Not Available Vitals Date Recorded Respiratory rate Body height Body temperature Heart rate Oxygen saturation Oxygen saturation in Arterial blood by Pulse oximetry Body weight Systolic And Diastolic Provider Name and Address Organization Details Last Updated DateTime 5 19 /min 154.94 cm 97.8 [degF] 63 /min 98 % 98 % 42546.3 2 g 149/63 mm[Hg] Not Available [employer] - production 5 20:09:32 Social History None recorded. Functional Status None recorded. Mental Status None recorded. Family History Nothing Reported. Medical History No medical history recorded. Gynecological HistoryNo gynecological history recorded. Obstetrics History GPAL:G 0 P 0 0 0 0 Past Encounters Encounter ID Performer Location Encounter Start Date Encounter Closed Date Diagnosis/Indication Diagnosis SNOMED-CT Code Diagnosis ICD10 Code Diagnosis IMO Codes Diagnosis Note [id number] KYRA MIN MD [facility] [address] [address] 12/03/2024 17:11:49 12/04/2024 12:32:35 Pain of left shoulder joint [id number] M25.512 [id number] Amparo Pineda MD [address] [address] 12/07/2024 19:57:45 12/07/2024 21:48:00 Dizziness [id number] R42 51490 As noted, we were called to see this patient regarding concerns of dizziness and ear pain. Evaluation in the field was performed by my district manager postal service colleague, as noted above, I provided real-time direction and supervisio n for this visit. The evaluation revealed 64 yo woman with recurrent ear infections , vertigo, HTN who calls for ear pain since sunday. The pain radiates down her jaw but no further. She has no drainage, no trauma, no fevers, no headaches. Tylenol has been helping.Maira garsia also has HTN, chronicall y, and has taken her lisinopril this morning. She has mild dyspnea but has not taken her prescribed nebulizers . On exam her ear is TTP without obvious erythema, bruising or drainage. Impression :Otitis media Plan:7 days ciprodex drops BID Dispositio n: We discussed the diagnostic uncertaint [...] new or worsening serious symptoms, particular ly changes to consciousn ess, chest pain, dyspnea. [id number] Mandy Portillo MD [facility] [address] [place] [address] 12/14/2024 17:32:24 12/16/2024 15:37:40 Pain of toe of left foot [id number] 20717 M79.675 [id number] GAURAV DHILLON MD [facility] [address] [place] [address] 12/19/2024 18:01:46 12/19/2024 20:03:30 Urinary symptoms [id number] R39.9 75365 Evaluation in the field was performed by my district manager postal service colleague, as noted above, I provided real-time direction and supervisio n for this visit. The evaluation revealed 64-year-ol d female with history of COPD/asthm a, severe persistent mental illness (SPMI), hypertensi on, anxiety disorder, rheumatoid arthritis, and recurrent nephrolith iasis (last stone passed spontaneou sly a few months ago) presents with burning with urination, urinary frequency, and left lower quadrant pain radiating to the left flank. She reports that this feels similar to prior UTI and kidney stone episodes. She has been drinking increased fluids, which may have worsened frequency. She notes chronic low back pain, but describes this discomfort as different in quality and location. She denies fever, chills, nausea, or vomiting.S he reports mild shortness of breath, attributed to running out of her albuterol inhaler, with refill scheduled for delivery tomorrow. BP: 138/72 , Pulse: 88 , RR: 22, Temp: 98.8 F, SpO2: 96% on room airExam : Gen: Alert, oriented, no acute distressLu ngs: Diminished breath sounds, most pronounced at apices; no wheezing or ralesAbdom en: Soft, non-tender , non-disten ded; no rebound or guarding; no CVA tenderness Extremitie s: No edemaBMP :UA: Negative for leukocytes , nitrites, and blood; trace protein, 1+ bilirubin, specific gravity 1.000 overall unremarkab le and dilute.BUN / creat 13/0.7 ( 09/2023 )Allergies reviewed. Impression :Left flank and LLQ pain differenti al includes early UTI vs ureteral stone. Symptoms overlap prior nephrolith iasis, but UA negative for infection or hematuria, making infection less likely; stone still possible despite negative dipstick.M ild shortness of breath likely related to COPD/asthm a with albuterol depletion; lungs diminished but clear, oxygenatio n preserved. Plan:Pasquale edic unable to obtain IV line or labsKetoro lac 15 mg IM given for pain ( has tolerated in the past ) . Advised to avoid further NSAIDs until tomorrow. May take acetaminop hen 1 g PO every 8 hours as needed for pain.Rx for Pyridium short-term for dysuria sent to pharmacyUr ine culture sent; will follow results. Noted that due to very dilute urine, dipstick may yield false-nega tive findings.E ncourage continued oral fluid intake.Duo neb x1 administer ed for mild shortness of breath.Red flag symptoms reviewed advised to seek immediate care if fever, worsening flank pain, vomiting, urinary retention, or shortness of breath develop. Primary care, consider__ _ Dispositio n: We [...] or worsening serious symptoms, particular ly fever, worsening flank pain, vomiting, urinary retention, or shortness of breath develop. [id number] KYRA MIN MD [facility] ED Medical [address] [address] 12/21/2024 20:09:27 12/22/2024 11:56:05 Right upper quadrant pain [id number] R10.11 [id number] Health Concerns Section Related Observation LastModified by Organization Detai ls LastModified Time None Recorded Concern Status LastModified by Organization Details LastModified Time None Recorded Payers Encounter Date Sequence Insurance Name Policy Number Policy Valdez Covered Member ID Valdez Member ID Guarantor Name 12/21/2024 1 [facility] - DOS ON OR AFTER 2022 - DUAL ELIGIBLE - NURSING HOME OPTIONS AND ONE CARE (MEDICARE REPLACEMENT/ADV ANTAGE - HMO) Elizabeth Huang [id number] Elizabeth Huang Notes Date Note Type Note Provider Name and Address Organization Details Recorded Time 12/21/2024 text/html ROS as noted in the HPI [facility] Nurse Triage Notes (Jaylen Escobar): Reason For Request: pain in sideDenies: Sharp focal or diffuse abdominal pain Vomiting blood/coffee ground material Bloating, jaundice new onset with pain Nausea and vomiting greater than 2 hours with abdominal pain Tearing pain that radiates to back Food Impaction Chief Complaints: Abdominal PainPMH: COPD/Asthma, Severe Persistent Mental Illness (SPMI), Hypertension, Anxiety Disorder, Rheumatoid Arthritis, Pneumonia, Kidney StonesPMH Reviewed at 12/21/2024 - :Allergies Reviewed at 12/21/2024 - :Comments: 64 y.o female complains of Abdominal PainPatient calling stating on Sunday she was having left lower sided abdominal pain. Patient states today she is having R upper abdominal pain. Patient reports one episode of diarrhea earlier this morning. Patient denies nausea or vomiting. Patient reports she took Tylenol for the pain. I provided information on the mobile health provider response time and advised the patient and/or caregiver to monitor reported signs and symptoms. I discussed the warning signs of when to seek emergency care -Allison Escobar RN .................... .................... .................... .................... .................... .................... .................... . Beef Skinner Note From Carroll Bettencourt: Patient Chief complaint today of right upper abdominal quadrant pain. Patient notes that all signs and symptoms have been occurring for 48 hours prior to [facility] arrival on scene today. Patient notes that she was seen 48 hours prior to today for similar pain located in her lower left quadrant. patient was given 30 mg of ketorlac IM. patient notes that there was very small positive effect at point in time. Patient expresses she has been using Tylenol intermittently with minimal positive effect. Patient Expresses 10 out of 10 level of pain while at rest and upper right quadrant. Patient notes, no trauma to the area as well as having normal bowel movements. patient today Would appreciate a general assessment as well as treatment if possible. Patient expresses no new signs and symptoms of chest pain, shortness of breath, NVD, dizziness and or changes in vision. Non-neural focal exam, a febrile, all vitals with their normal limits for the baseline of the patient. Patient able to ambulate at her appropriate baseline without the use of a walking device and or a person. Patient lungs present as clear bilaterally upon auscultations. No new and or worsening lower extremity edema. Upon assessment of abdomen [facility] provider notes no Rigidity/ deformity or trauma to the area. Patient does note tenderness upon palpation in upper right quadrant no guarding. Patient is Cheek x 4 with a GCS score of 15. 22 gauge IV placed in right hand. Unable to acquire blood work. [facility] Kyra Min consulted Patient is informed that due to her Chief complaint as well as past medical history, it is recommended for her to be seen at a center of higher care for diagnostic imaging. Patient agrees. [facility] provider contact local emergency services. [facility] calls ahead to [facility] in [place], [place] for report. [facility] provider remains on scene to provide full transfer of care to 911 crew. .................... .................... .................... .................... .................... .................... .................... . [facility] Consulted: Kyra Min .................... .................... .................... .................... .................... .................... .................... . Disposition: Fulfilled KYRA MIN MD [address] [place] [address],[address], [place], [address], MARY - FAHAD BLAS 12/21/2024 22:40:32 OBGyn Episode No OBEpisode recorded.
--- OUTSIDE RECORDS SUMMARY | 2024-12-25 17:18 | XMS_ITS | Data Portability ---
Author Organization [place] - [facility], Allergy Address [address] [address] Assessment Encounter Date Assessment Date Assessment LastModified [...] recorded. Referral speech therapy referral 2024 025 [facility] Speech & Hearing [facility], [address] [place] [address] [place], [address], 10:52:29 Procedures None recorded. Surgeries None recorded. Imaging None recorded. Medication Orders None recorded. Patient TargetsNo targets recorded. Patient InstructionsNo instructions recorded. Reason for Referral Referring Physician: Rickie nieves, Otolaryngology, Encounter Date: 04/25/2024 Results Created [...] Recorded Time Otitis externa of bilateral ears [id number] Active 2015 Other otitis externa, bilateral ; Note: Date Diagnosed : 05/12/2015 12:59 AM (H60.8X3) Not Available [facility] 4 02:46:49 Pain of temporoma ndibular joint 53527415 Active 2015 Arthralgi a of temporoma ndibular joint; Note: Date Diagnosed : 05/12/2015 12:58 AM (M26.62) Not Available [facility] 4 02:46:52 Bilateral tinnitus 42231490144 02 Active 2015 Tinnitus, bilateral ; Note: Date Diagnosed : 06/22/2015 2:10 PM (H93.13) Not Available [facility] 4 02:46:51 Dizziness and giddiness 838885301 Active 2015 Dizziness and giddiness ; Note: Date Diagnosed : 06/22/2015 2:10 PM (R42) Not Available [facility] 4 02:46:50 Sensorine ural hearing loss of bilateral ears 869578478 Active 2015 Sensorine ural hearing loss, bilateral ; Note: Date Diagnosed : 06/22/2015 2:10 PM (H90.3) Not Available [facility] 4 02:46:54 Impacted cerumen of bilateral ears 43819251055 01385 Active 2016 Impacted cerumen, bilateral ; Note: Date Diagnosed : 08/08/2016 2:34 PM (H61.23) Not Available [facility] 4 02:46:56 Impacted cerumen in right ear 43271494057 66292 Active 2017 Impacted cerumen, right ear; Note: Date Diagnosed : 03/06/2017 4:03 PM (H61.21) Not Available [facility] 4 02:46:52 Diffuse otitis externa 35820838 Active 2018 Diffuse otitis externa, right ear; Note: Date Diagnosed : 02/25/2018 4:53 PM (H60.311) Not Available [facility] 4 02:46:56 Nasal congestio n 61336487 Active 2023 JUAN PABLO KABA MD [address] [place] [address], [place], [address] , [facility] - [facility] 4 21:32:56 Foreign body in right ear 27298694381 332482 Active 2023 JUAN PABLO KABA MD [address] [place] [address], [place], [address] , [facility] - [facility] 4 21:33:01 Chronic hoarsenes s 19114278565 05 Active 2024 Rickie rajput MA - [facility] 5 11:50:32 Gastroeso phageal reflux disease without esophagit is 456742322 Active 2024 Rickie rajput MA - [facility] 5 12:33:50 Problem Notes None recorded. Procedures Surgical History Date Name Laterality Status Provider Name and Address Organization Details Recorded Time 5 FOL_DP completed Rcikie Armstrong MA - [facility] 04/25/2024 12:31:13 4 Removal of foreign body from ear canal completed JUAN PABLO KABA MD [address], [address], [facility] - [facility] 10/07/2023 21:35:30 Imaging Results None recorded. Procedure Notes None recorded. Medical Equipment None Reported. Medications Name Sig Start Date Stop Date Status Note LastModified by Organization Details LastModified Time multivita min tablet active Not Available Not Available Not Available amoxicill in 500 mg capsule active Not Available Not Available Not Available mineral oil oral 2015 active Medicati on ID: [id number] D uration Value: 23 Brand Name: mineral [...] mg tablet 2015 active Medicati on ID: [id number] D uration Value: 5 Brand Name: naproxen [...] mg tablet 2015 active Medicati on ID: 393430 D uration Value: 30 Brand Name: ranitidi [...] mg tablet 02/25 completed Medicati on ID: [id number] D uration Value: 30 Brand Name: sertrali ne Send Method: E-Prescr ibed Sub s Allowed: subs OK Medic ationGen ericName : sertrali ne Not Available Not Available Not Available prednison e 5 mg tablet active Not Available Not Available Not Available quetiapin e 200 mg tablet 02/25 completed Medicati on ID: [id number] D uration Value: 30 Brand Name: quetiapi [...] mg tablet 03/07 completed Medicati on ID: [id number] D uration Value: 10 Prescri bed By [...] 2 hr 2015 active Medicati on ID: [id number] D uration Value: 30 Brand Name: carbamaz [...] mg capsule 2015 active Medicati on ID: [id number] D uration Value: 12 Brand Name: progeste [...] mg capsule 02/25 completed Medicati on ID: [id number] D uration Value: 30 Brand Name: gabapent [...] mg tablet 2015 active Medicati on ID: [id number] D uration Value: 30 Brand Name: diazepam Send Method: E-Prescr ibed Sub s Allowed: subs OK Medic ationGen ericName : diazepam Not Available Not Available Not Available amoxicill in 875 mg-potass ium clavulana te 125 mg tablet 05/29 completed Medicati on ID: [id number] D uration Value: 20 Reason: () Brand [...] ous solution 2015 active Medicati on ID: [id number] D uration Value: 28 Brand Name: Xolair [...] n capsules 2015 active Medicati on ID: [id number] D uration Value: 30 Brand Name: Spiriva [...] mg capsule 2015 active Medicati on ID: [id number] D uration Value: 20 Brand Name: butalbit [...] Updated DateTime 04/25/2024 154.94 cm 32.7 kg/m2 59352.48 g Saima Morejon MA - [facility] 04/25/2024 11:00:15 Social History None recorded. Functional [...] ICD10 Code Diagnosis IMO Codes Diagnosis Note [id number] JUAN PABLO KABA MD [facility] [address] [address] 10/02/2023 09:52:16 10/02/2023 12:00:59 Foreign body in right ear [id number] T16.1XXA Nasal congestion 4007796 0 R09.81 63-year-ol d female presents today [...] her hearing. She may follow-up as needed. [id number] RICKIE ARMSTRONG PA-C [facility] [address] [address] 04/25/2024 10:31:44 04/25/2024 11:53:14 Chronic hoarseness 5164585571 105 R49.0 Gastroesop hageal reflux disease without esophagitis 246520626 K21.9 Health Concerns Section Related Observation LastModified by Organization Detai ls LastModified Time None Recorded Concern Status LastModified by Organization Details LastModified Time None Recorded Advance Directives Directive None Recorded Payers Insurance Date Sequence Insurance Name Policy Number Policy Valdez Covered Member ID Valdez Member ID Guarantor Name 08/14/2024 1 [facility] - DOS ON OR AFTER 2022 - MEDICARE [place]ANTAGE [place] RE[place]ACEMENT/ADV ANTAGE - PPO) Elizabeth Huang [id number] Elizabeth Wray Reina Notes Date Note Type Note Provider Name and Address Organization Details Recorded Time 10/02/2023 text/html ROS as noted in the [facility] 63-year-old female presents today for evaluation of nasal abscess. [...] pain. No epistaxis. JUAN PABLO KABA MD [address] [place] [address], [phone], [facility] - [facility] 10/07/2023 21:36:00 04/25/2024 text/html ROS as noted in the [facility] 63 year old female presents reporting three [...] that she is prediabetic. SULEMAN SCHULTZ MD [address] [place] [address], [phone], [facility] - [facility] 04/25/2024 16:52:12 OBGyn Episode No OBEpisode recorded.
--- OUTSIDE RECORDS SUMMARY | 2024-12-25 17:18 | XMS_ITS | Continuity of Care Document ---
Author Name [facility], Medical Address [address] [place] [id number] Organization Unknown Address [address] [place] [id number] Medications No known medications Problems No known problems
--- OUTSIDE RECORDS SUMMARY | 2024-12-25 17:18 | XMS_ITS | Data Portability ---
Author Organization [facility] Address [address] [place] [address] Care Team Providers Care Car Restorer Name Role Phone HIM CCA OTHER PONCHO BAHENA Primary Care Provider Assessment Encounter Date Assessment Date Assessment LastModified by Organization Details LastModified Time 12/03/2024 12/03/2024 Ms. Huang is a 64 yo F with RA on MTX who has chronic L shoulder pain calling today with L shoulder pain. Per patient and medic, patient has known left shoulder pain. States that this is similar to her normal baseline left shoulder pain. No recent trauma or injuries or falls. Denies any chest pain or shortness of breath. States that this is typical for her pain. Is currently receiving methotrexate for her rheumatoid arthritis. Patient is not on blood thinners. She s been trying and Tylenol for symptom management. No recent Motrin use. Has tolerated tore it all well in the past for symptom relief. MDM: based on her exam in the history that seems like consistent acute on chronic shoulder pain, likely secondary to her rheumatoid arthritis. No concern for fracture dislocation. No indication for imaging. No overlying signs or symptoms of infection. Reasonable for 30 mg IM toradol with medic and then return precautions and outpatient follow up. I provided real -time medical direction via phone for this encounter, and was available for additional phone based assistance as needed. I have reviewed and agree with the Assessment and Plan as documented by the Application Programmer Analyst. We discussed the diagnostic uncertainty of home visits and the risk associated with this. In this case the patient and I felt this to be an acceptable and reasonable amount of risk given the benefit of avoiding an ED visit. The patient given the opportunity to ask questions. Follow up with primary care was recommended, as needed. Advised if develops CP/severe SOB/turning blue/uncontrolle d n/v/d or black/bloody emesis or stool/ AMS/ syncope/ high fever unresponsive to APAP to call 911- verbalized understanding of instruction. Not available 12/03/2024 17:35:53 12/14/2024 12/14/2024 I have reviewed and agree with the assessment and plan as documented by the bandoleer straightener stamper. I provided real-time medical direction for this encounter and was immediately available to provide additional phone-based assistance as needed. 64F presenting with left 5th toe pain x few days. Improved after she took shoe off. No injury or trauma. No redness or swelling. On gabapentin TID. Physical exam unremarkable. Recommend avoiding using those shoes and to use ice/Tylenol as needed. Red flags discussed. paysola Not available 12/14/2024 17:36:38 12/21/2024 12/21/2024 Ms. Huang is a 64 [...] with medic. Still has her appendix, s/p cholecystectomy. Given the patient's presenting pain and sx, will need imaging. She's had consistent and chronic pain now for about 3 days. Non responsive to tylenol and toradol. Did consider pancreatitis. POC UA was done on Sunday and was negative for infection at the time. Unlikely pyelonephritis. No c/f cystitis. Will defer repeat POC UA at this time. Unable to get blood with medic 2/2 patient's dehydration status. Will need blood work, imaging, and sx management and imaging at ER. [facility]. Will call ahead. Elizabeth MAHARAJ for sign out: 10:30pm. I provided real -time medical direction via phone for this encounter, and was available for additional phone based assistance as needed. I have reviewed and agree with the Assessment and Plan as documented by the Application Programmer Analyst. We discussed the diagnostic uncertainty of home visits and the risk associated with this. In this case the patient and I felt transfer to the ER was safest for disposition and continued care as their needs exceeded what could safely be supported in the home setting. Not available 12/21/2024 22:40:29 Plan of Treatment Reminders Order Date Submit Date Provider Last Modified By Organization Details Last Modified Time Details Appointments None recorded. Lab culture, urine 2024 [facility] (Centralized Electronic Ordering - All Locations), Patient Can Go To The Location Of Their Choice, [address] 22:05:32 urinalysis, dipstick 2024 [facility], [address] [place] [address], [id number] 19:09:39 Referral None recorded. Procedures None recorded. Surgeries None recorded. Imaging None recorded. Medication Orders ipratropium 0.5 mg-albutero l 3 mg (2.5 mg base)/3 mL nebulizatio n soln 2024 [facility], [address] [place] [address], [id number], 18:18:35 ketorolac 15 mg/mL injection solution 2024 [facility], [address] [place] [address], [address], 18:42:53 Pyridium 200 mg tablet 2024 [facility], [address] [place] [address], [address], 19:04:48 Ciprodex 0.3 %-0.1 % ear drops,suspe nsion 2024 [facility], [address] [place] [address], [address], 20:08:37 ketorolac 30 mg/mL injection solution 2024 025 shabbir i7 [facility], [address] [place] [address], [id number], 17:22:32 Patient TargetsNo targets recorded. Patient InstructionsNo instructions recorded. Reason for Referral None Reported. Results Created Date Observation Date Name Description Value Unit Range Abnormal Flag Note LastModifiedBy Organization Detail LastModifiedTime 12/20/1912/22/2024 URINE CULTU RE, UROLO GY SUNITA P urine culture, urology workup Final report Not Available [facility] ([facility] [address], [place], [address], 12/22/2024 06:05:53 12/20/1912/22/2024 URINE CULTU RE, UROLO GY SUNITA P result 1 Lactob acillu s specie s 10,00 0-25, 000 colon y formi ng units per mL Susce ptibi lity not elsa lly perfo rmed on this organ ism. Not Available [facility] ([facility] [address], [place], [address], 12/22/2024 06:05:53 Result Notes None recorded. Medical Equipment None Reported. Allergies Allergen ID Allergen Name Allergen Category Reaction Reaction Severity Criticality Documentation Date Start Date Code Code System Note Provider Name and Address Organization Details Recorded Time 31002 sulfameth oxazole / trimethop rim medicatio n Not available Not available Not available 12/07/2024 07343 RxNorm Not Available [facility] - External Data Service - prod 19:58:48 87133 Thiazide (substanc e) medicatio n Not available Not available Not available 12/07/2024 28195 6002 SNOMED Not Available [facility] - External Data Service - prod 19:58:48 98289 amoxicill in medicatio n Not available Not available Not available 12/07/2024 723 RxNorm Not Available [facility] - External Data Service - prod 19:58:48 84326 amoxicill in / clavulana te medicatio n Not available Not available Not available 12/07/2024 66952 RxNorm Not Available [facility] - External Data Service - prod 19:58:48 78442 quetiapin e medicatio n Not available Not available Not available 12/07/2024 80465 RxNorm Not Available [facility] - External Data Service - prod 19:58:48 29147 aspartame food,medi cation Not available Not available Not available 12/07/2024 05245 24 RxNorm Not Available [facility] - External Data Service - prod 19:58:50 22816 Iodinated contrast media (substanc e) medicatio n Not available Not available Not available 12/07/2024 42862 2004 SNOMED Not Available [facility] - External Data Service - prod 19:58:50 09818 lactose food,medi cation Not available Not available Not available 12/07/2024 6211 RxNorm Not Available [facility] - External Data Service - prod 19:58:50 30132 Inderal medicatio n Not available Not available Not available 12/07/2024 68546 0 RxNorm Not Available [facility] - External Data Service - prod 19:58:51 71090 methyclot hiazide medicatio n Not available Not available Not available 12/14/20242015 6860 RxNorm Pt state s do not recal l react ion Not Available [facility] - External Data Service - prod 17:33:25 28384 cephalexi n medicatio n diarrhea Not available high 12/14/20242022 2231 RxNorm Not Available [facility] - External Data Service - prod 17:33:34 72386 clavulani c acid Not available Not available Not available Not available 12/14/20242022 18340 RxNorm Other React ion(s ): stoma ch pain Not Available [facility] FST21 External Data Service - prod 17:33:34 97654 cow milk allergeni c extract food,medi cation Not available Not available high 12/14/20242022 42118 5 RxNorm Other React ion(s ): can take with lacta id Not Available [facility] - External Data Service - prod 17:33:34 74696 onion extract food,medi cation Not available Not available high 12/14/20242022 42538 69 RxNorm Other React ion(s ): migra ine Not Available [facility] - External Data Service - prod 17:33:34 29203 polyethyl alejo glycols medicatio n Not available Not available high 12/14/20242022 8516 RxNorm Not Available [facility] - External Data Service - prod 17:33:34 83536 potassium chloride medicatio n Not available Not available high 12/14/20242022 8591 RxNorm Not Available [facility] - External Data Service - prod 17:33:34 85070 Shellfish (substanc e) food,medi cation Not available Not available high 12/14/20242022 11215 9006 SNOMED Other React ion(s ): Anaph ylaxi s Not Available [facility] - prod 17:33:34 00619 sodium benzoate medicatio n Not available Not available high 12/14/20242022 74727 RxNorm Not Available [facility] - External Data Service - prod 17:33:34 94374 Substance with sulfonami de structure and antibacte rial mechanism of action (substanc e) medicatio n hives Not available Not available 12/14/20242013 69608 8003 SNOMED Other React ion(s ): unkno wn react ion sever ity Not Available [facility] - External Data Service - prod 17:33:34 48895 trimethop rim medicatio n Not available Not available high 12/14/20242022 56996 RxNorm Other React ion(s ): hives Not Available [facility] - External Data Service - prod 17:33:34 2118 aspirin medicatio n Not available Not available Not available 04/30/2022 1191 RxNorm Not Available [facility] - production 07/13/202 5 20:20:50 2119 morphine medicatio n Not available Not available Not available 04/30/2022 7052 RxNorm Not Available [facility] - production 5 20:20:50 2120 Augmentin medicatio n Not available Not available Not available 04/30/2022 05024 2 RxNorm Not Available [facility] - production 5 20:20:50 4312 Bactrim medicatio n Not available Not available Not available 02/20/2023 58296 9 RxNorm Not Available [facility] - production 4 03:41:14 4313 sulfameth oxazole / trimethop rim medicatio n Not available Not available Not available 02/20/2023 82474 RxNorm Marita Ramos MD [address] [place] [address],[address], [place], [address], [employer] 4 14:13:42 4314 doxycycli ne Not available Not available Not available Not available 02/20/2023 3640 RxNorm Not Available [facility] - production 4 03:41:14 5895 Seroquel medicatio n Not available Not available Not available 09/30/2023 66553 RxNorm EMELY DHILLON MD [address] [place] [address],[address], [place], [address], [employer] 4 18:08:17 5896 fluoxetin e medicatio n Not available Not available Not available 09/30/2023 4493 RxNorm EMELY DHILLON MD [address] [place] [address],[address], [place], [address], [facility] [employer], [employer] [facility] 4 18:08:31 5897 nabumeton e medicatio n Not available Not available Not available 09/30/2023 88880 RxNorm EMELY DHILLON MD [address] [place] [address],[address], [place], [address], [employer], [employer] 4 18:08:46 5898 propranol ol medicatio n Not available Not available Not available 09/30/2023 8787 RxNofrankie DHILLON MD [address] [facility],[address], [place], [address], [facility] 4 18:09:03 7995 Product containin g penicilli n (product) medicatio n Not available Not available Not available 12/11/2023 70356 8001 SNOMED Not Available [facility] - production [...] propionate 50 mcg/actuatio n nasal spray,suspen zoe Napier 1 spray every day by intranasal route. [...] Not Available Vitals Date Recorded Body weight Body temperature Respiratory rate Heart rate Body height Oxygen saturation Oxygen saturation in Arterial blood by Pulse oximetry Systolic And Diastolic Provider Name and Address Organization Details Last Updated DateTime 5 30255.5 6 g 97.6 [degF] 16 /min 74 /min 154.94 cm 96 % 96 % 169/72 mm[Hg] Not Available [facility] 5 17:17:19 Date Recorded Body temperature Respiratory rate Body weight Heart rate Body height Oxygen saturation Oxygen saturation in Arterial blood by Pulse oximetry Systolic And Diastolic Provider Name and Address Organization Details Last Updated DateTime 5 97.5 [degF] 18 /min 50422.5 6 g 64 /min 154.94 cm 100 % 100 % 180/76 mm[Hg] Not Available [facility] 5 19:57:49 Date Recorded Respiratory rate Heart rate Body weight Body temperature Body height Oxygen saturation Oxygen saturation in Arterial blood by Pulse oximetry Systolic And Diastolic Provider Name and Address Organization Details Last Updated DateTime 5 18 /min 69 /min 01796.5 6 g 97.8 [degF] 154.94 cm 98 % 98 % 147/69 mm[Hg] Not Available [facility] [place] 17:32:27 Date Recorded Body weight Oxygen saturation Oxygen saturation in Arterial blood by Pulse oximetry Heart rate Body temperature Body height Respiratory rate Systolic And Diastolic Provider Name and Address Organization Details Last Updated DateTime 5 18277.5 6 g 96 % 96 % 88 /min 98.8 [degF] 154.94 cm 22 /min 138/72 mm[Hg] Not Available [facility] [place] 18:01:50 Date Recorded Respiratory rate Body height Body temperature Heart rate Oxygen saturation Oxygen saturation in Arterial blood by Pulse oximetry Body weight Systolic And Diastolic Provider Name and Address Organization Details Last Updated DateTime 5 19 /min 154.94 cm 97.8 [degF] 63 /min 98 % 98 % 96946.3 2 g 149/63 mm[Hg] Not Available [facility] 20:09:32 Social History None recorded. Functional Status None recorded. Mental Status None recorded. Family History Nothing Reported. Medical History No medical history recorded. Gynecological HistoryNo gynecological history recorded. Obstetrics History GPAL:G 0 P 0 0 0 0 Past Encounters Encounter ID Performer Location Encounter Start Date Encounter Closed Date Diagnosis/Indication Diagnosis SNOMED-CT Code Diagnosis ICD10 Code Diagnosis IMO Codes Diagnosis Note [id number] Amisha Huntley MD [facility] - [facility] [address] [place] [address] 03/31/2021 20:59:17 08/30/2021 11:57:03 Osteoarthritis of right knee joint 7006139073 90028 M17.11 Pain of ri ght knee joint 3516403859 82796 M25.561 [id number] Luis Cutler MD Main - [facility] [address] [place] [address] 07/03/2021 12:08:30 10/26/2021 13:35:38 Urinary tract infectious disease 45558708 N39.0 This order set is for complicate d UTIs -- those with concern for early pyelo, abnormal anatomy, indwelling catheter, or other higher-ris k features. For MDRO options see UTI-MDRO Kidney stone 99814994 N2 0.0 Acute cystitis 09338317 N30.00 These are first-line agents for lower-risk , uncomplica sharmin UTI. For resistance concerns, early pyelo, or other complicati ons, see complicate d UTI [id number] Maryanne Yip MD Main - [facility] [address] [place] [address] 09/04/2021 13:33:24 10/18/2021 16:29:06 Pain in right foot 1198699430 96692 M79.671 Pt p/w acute onset atraumatic foot [...] assessment and plan as documented by the bandoleer straightener stamper. I provided real time medical direction for this encounter and was immediatel y available to provide additional phone based assistance as needed. [id number] Luis Cutler MD Main - [facility] [address] [place] [address] 12/04/2021 16:52:50 12/05/2021 14:55:01 Upper respiratory infection 81070016 J06.9 [id number] Amisha Huntley MD Main - [facility] [address] [place] [address] 02/11/2022 14:16:07 02/14/2022 16:09:43 COVID-19 643938545 U07.1 pat on carbamazep ine expl paxlovid [...] send refill- she requests Rx go to [facility] in [facility] due to holiday weekend( nl uses [facility]) Due to dark green sputum may have bacterial superinfec tion in sinuses or lungs will cover w/ azithromyc in which she reports she tolerates well. Advised Tylenol for pain/ fever has 500 mg caps- can take 1000 mg 3x /24 hrs based on her stated weight [id number] Luis Soto MD Main - [facility] [address] [place] [phone] 02/14/2022 19:31:12 02/16/2022 10:53:42 COVID-19 279542851 U07.1 [id number] Rogelio Vasquez MD Main - [facility] [address] [place] [phone] 02/18/2022 19:38:25 02/20/2022 10:27:07 Acute exacerbation of chronic obstructive pulmonary disease 311582551 J44.1 Wheezing on exam. Was not candidate for anti-viral s for COVID. Prednisone improved symptoms. WIll rx for additional 5 days. COVID-19 121324428 U07.1 Was not candidate for anti-viral s. Prednisone improved symptoms. WIll rx for additional 5 days. [id number] Maryanne Yip MD Main - [facility] [address] [place] [phone] 02/26/2022 16:27:03 02/28/2022 12:34:42 Exacerbation of moderate persistent asthma 467400414 J45.41 Pt with recent COVID infection (now [...] assessment and plan as documented by the bandoleer straightener stamper. I provided real time medical direction for this encounter and was immediatel y available to provide additional phone based assistance as needed. [id number] [facility] [address] [place] [phone] 03/12/2022 21:49:28 03/14/2022 10:01:04 Postviral cough 105911623 R05.3 As noted, we were called to see this patient regarding concerns of cough and respirator y symptoms following COVID and PNA, treated with cefpodoxim e and possibly also azithro. Evaluation in the field was performed by my bandoleer straightener stamper colleague, as noted above, I provided real-time [...] [id number] Luis Soto MD Main - [facility] [address] [place] [phone] 03/30/2022 16:57:05 04/06/2022 14:01:29 Acute urinary tract infection 516798842 N39.0 [id number] Mandy Portillo MD Main - [facility] [address] [place] [phone] 04/03/2022 20:15:34 04/06/2022 15:58:00 Viral upper respiratory tract infection 848463810 J06.9 [id number] Maryanne Yip MD Main - [facility] [address] [place] [address] 04/16/2022 13:22:29 04/18/2022 09:19:04 Productive cough 18445240 R05.9 Evaluation in the field was performed by my bandoleer straightener stamper colleague, as noted above, I provided real-time [...] [id number] Mandy Portillo MD Main - [facility] [address] [place] [phone] 04/24/2022 18:57:17 04/26/2022 10:49:34 Flank pain 833102756 R10.9 [id number] Amisha Huntley MD Main - [facility] [address] [place] [address] 04/30/2022 18:17:58 05/02/2022 09:44:42 Pain of right shoulder joint 1280119863 8153627 M25.511 pat had nl renal function 03/02/22( [...] she verbalized understand ing of instructio ns [id number] Rogelio Vasquez MD Main - [facility] [address] [place], [place] [phone] 05/21/2022 19:11:05 05/22/2022 10:54:13 Paronychia of finger of right hand 4217410820 2816865 L03.011 No s/s of cellulitis . Advised to do warm soaks and if persistent pain to go to PCP for removal of potential ingrown nail [id number] Mandy Portillo MD Main - [facility] [address] [place], [place] [phone] 05/29/2022 18:58:29 05/30/2022 11:45:45 Pain in right thumb 7453401933 994403 M79.644 [id number] Maryanne Yip MD Main - [facility] [address] [place], [place] [phone] 06/17/2022 12:55:35 06/19/2022 10:39:24 Thoracic back pain 385641400 M54.6 Evaluation in the field was performed by my bandoleer straightener stamper colleague, as noted above, I provided real-time [...] shortness of breath, cough, chest pain, fever. [id number] Kindra Wright MD Main - [facility] [address] [place] [id number] 07/03/2022 20:06:35 07/04/2022 15:03:54 Rheumatoid arthritis 15212890 M06.9 [id number] Luis Cutler MD Main - [facility] [address] [place] [id number] 07/08/2022 12:56:39 07/10/2022 18:48:54 Pain 73458342 R52 As noted, we were called to see this patient regarding concerns of pain in rib and with inspiratio n subsequent to fall. Evaluation in the field was performed by my bandoleer straightener stamper colleague, as noted above, I provided real-time [...] LH, or anything unusual. Fracture of rib 99134319 S22.32XA [id number] TOÑITO VARELA MD Main - [address] [address] 07/09/2022 13:21:31 07/10/2022 19:03:27 Rib pain 377079298 R07.81 [id number] Elizabeth Victoria MD [facility] - [address] [phone] 07/11/2022 20:04:39 07/12/2022 09:35:01 Chronic obstructive pulmonary disease 12597762 J44.9 [id number] Yuliya Maldonado MD Main - [address] [address] 07/16/2022 16:26:39 07/26/2022 10:17:58 Rib pain 242139922 R07.81 case supervised and discussed with bandoleer straightener stamper. Patient was given opportunit y to ask questions, warning signs/symp toms of pertinent medical emergency reviewed. mechanical fall several weeks ago, seen at two different [facility] without identified etiology on imaging (xrays, no fractures) but prescribed oxycodone. Continues to experience excruciati ng pain, reproducib le on palpation. Explained to patient that [facility] does not have any imaging capabiliti es for diagnostic purposes, so wont be able to provide much additional insight to the etiology of her acute pain. Pt adamant she wanted a diagnosis JERMAINE and additional therapeuti cs, for which I explained she would have to present to the ED. Pt requested bandoleer straightener stamper call ambulance. [id number] Abida Mcleod MD Main - [address] [phone] 08/27/2022 13:28:03 08/28/2022 12:04:02 Urinary symptoms 983826992 R39.9 61 year old female being evaluated [...] new symptoms before culture data are available. [id number] Mandy Portillo MD Main - [facility] [address] [place] [phone] 08/27/2022 18:13:48 06/13/2024 12:51:11 Pain 79436289 R52 [id number] Amisha Huntley MD Main - [facility] [address] [place] [phone] 09/04/2022 11:12:04 09/04/2022 16:13:04 Sinus headache 8069700 R51.9 Patient is already taking Johanny and [...] time which I discussed with the patient [id number] Maryanne Yip MD Main - [facility] [address] [place] [phone] 09/11/2022 19:18:28 09/11/2022 23:12:11 Contact dermatitis 82982711 L25.9 Evaluation in the field was performed by my bandoleer straightener stamper colleague, as noted above, I provided real-time [...] shortness of breath, cough, chest pain, fever. [id number] Yuliya Maldonado MD Main - [facility] [address] [place], [place] [phone] 09/23/2022 17:13:29 09/26/2022 15:32:41 Pain in throat 697062529 R07.0 1-2 d sore throat iso increased exposure to high volume AC. Strep negative. Some possible sick contacts. No fevers/chi lls or other infectious sx on exam or history. takes johanny bid, endorses post nasal drip but states that any nasal spray gives her a head ache. Dicsussed monitoring and supportive care with tea/honey etc. Warning signs/sx reviewed, pt and bandoleer straightener stamper agree with plan. [id number] Liam Cheung MD Main - [facility] [address] [place] [phone] 09/24/2022 13:32:56 09/26/2022 15:37:52 Acute pharyngitis 503236506 J02.9 Patient with pharyngiti s/laryngit is. No signs of bacterial superinfec tion. POC COVID and Strep neg. Advised continued supportive care. [id number] Amisha Huntley MD Main - [facility] [address] [place] [phone] 09/30/2022 18:28:05 10/02/2022 07:15:34 Acute exacerbation of chronic obstructive pulmonary disease 740998137 J44.1 With possible minor URIadvised to use [...] y, but her blood sugar is normal [id number] Marita Ramos MD Main - [facility] [address] [place] [address] 10/12/2022 13:11:26 10/12/2022 19:18:57 Respiratory tract congestion and cough [id number] R05.9 [id number] Jas Woodall MD [facility] - [facility] [address] [place] [address] 91421-774 0 10/14/2022 11:55:33 10/16/2022 20:25:38 Pain of right wrist [id number] 56312 M25.531 Dizziness [id number] R42 [id number] Elizabeth Victoria MD Main - [facility] [address] [place] [address] 70030-083 0 10/19/2022 20:24:42 10/19/2022 23:38:55 Dysuria [id number] R30.0 Urinary symptoms [id number] 08 R39.9 [id number] Yuliya Maldonado MD [facility] - [facility] [address] [place] [address] 95610-847 0 10/29/2022 10:52:45 12/12/2022 15:05:16 Cough [id number] R05.9 I provided real -time medical direction via phone for this encounter, and was available for additional phone based assistance as needed. I have reviewed and agree with the Assessment and Plan as documented by the Application Programmer Analyst. Patient given the opportunit y to ask [...] Reviewed supportive care strategies and warning signs/sx. [id number] Elizabeth Victoria MD [facility] - [facility] [address] [place] [address] 51274-757 0 10/31/2022 19:47:09 11/01/2022 12:07:59 Acute viral pharyngitis [id number] J02.9 06857 Abida Mcleod MD [facility] - [facility] [address] [place] [address] 86463-934 0 11/03/2022 19:45:46 11/05/2022 18:05:51 Pharyngitis 238069821 J02.9 62 year old female being evaluated [...] assessment and plan as documented by the bandoleer straightener stamper. I provided real-time medical direction for this encounter and was immediatel y available to provide additional phone-base d assistance as needed. [id number] Maryanne Yip MD Main - [facility] [address] [place] [address] [phone] 0 11/05/2022 11:22:03 11/05/2022 18:18:37 Acute pharyngitis 982481071 J02.9 Evaluation in the field was performed by my bandoleer straightener stamper colleague, as noted above, I provided real-time [...] shortness of breath, cough, chest pain, fever. 08466 Mandy Portillo MD [facility] - [facility] [address] [place] [address] 85525-111 0 12/19/2022 20:38:38 12/27/2022 18:34:30 Hoarse [id number] R49.0 [id number] Marita Ramos MD Main - [facility] [address] [place] [address] 59445-014 0 12/21/2022 15:09:02 12/22/2022 13:12:24 Nausea and vomiting 73137868 R11.2 52042 Luis Cutler MD Main - [facility] [address] [place] [address] 39936-237 0 12/24/2022 17:29:23 12/25/2022 14:41:46 Cellulitis [id number] L03.90 As noted, we were called to see this patient regarding concerns of cellulitis . Evaluation in the field was performed by my bandoleer straightener stamper colleague, as noted above, I provided real-time [...] particular ly high fever, unresolvin g pain. [id number] Marita Ramos MD [facility] - [facility] [address] [place] [address] 44090-643 0 12/27/2022 19:57:19 12/27/2022 22:46:42 Cellulitis [id number] L03.90 [id number] Elizabeth Victoria MD Main - [facility] [address] [place] [address] 83676-892 0 01/23/2023 20:58:40 01/24/2023 13:37:45 Acute sinusitis 38731384 J01.90 02284 EMELY DHILLON MD [facility] - [facility] [address] [place] [address] 40421-582 0 01/27/2023 19:31:06 01/30/2023 10:07:25 Abscess 953915769 L02.91 As noted, we were called to see this patient regarding concerns of recurring right nostril abscess Evaluation in the field was performed by my bandoleer straightener stamper colleague, as noted above, I provided real-time [...] surgeon, but no appt available until May.Per bandoleer straightener stamper exam, right nostril blocked completely with puss Impression :Right nare abscess Plan:Pt was send to ED for I& D and possible IV antibiotic sNo Tramadol give since increases risk of bleeding during the I&D Primary care, consider__ _ Dispositio n: We discussed the situation and I recommende d referral to the emergency department . [id number] Yuliya Maldonado MD [facility] - [facility] [address] [place] [address] 51214-707 0 02/17/2023 18:16:57 02/18/2023 15:31:40 Acute urinary tract infection 067265280 N39.0 62 yo h/o recurrent UTis today p/w 1d severe flank pain. UA positive for LE and nitrites. Pt is in significan t distress 2/2 pain on exam, reports this is much worse than prior. Requesting transport to ED. 20042 Marita Ramos MD [facility] - [facility] [address] [place] [address] 01883-827 0 02/20/2023 14:07:45 02/21/2023 11:03:01 Renal angle tenderness 978744633 R10.829 Dysuria 39781263 R30.0 [id number] Rangel Robledo MD [facility] - [facility] [address] [place] [address] 84390-133 0 02/23/2023 17:39:45 02/26/2023 17:26:50 Chronic thoracic back pain 3808537040 41836 M54.6 93080 Ninoska Juarez MD [facility] - [facility] [address] [place] [address] 43887-534 0 03/10/2023 16:45:25 03/11/2023 15:32:12 Viral upper respiratory tract infection 672090446 J06.9 [id number] Elizabeth Victoria MD [facility] - [facility] [address] [place] [address] 38590-765 0 04/10/2023 20:36:05 04/11/2023 17:22:36 Pain in left foot 6962742210 63360 M79.672 73414 Sam Perez MD Main - [facility] [address] [place] [address] 71783-918 0 04/25/2023 15:11:36 04/25/2023 22:44:01 Pain in left arm 603876664 M79.602 This 62-year-ol d female has a three month history of left upper back and shoulder pain with no history of trauma. She has been taking Tylenol, but today the pain is worse. I ordered Toradol 15 mg IM. I also recommende d she alternate ibuprofen with the Tylenol. She will follow-up with her PCP. The patient agreed with this plan. 21078 Elizabeth Victoria MD [facility] - [facility] [address] [place] [address] 17729-520 0 05/10/2023 20:23:10 05/14/2023 18:12:54 Acute urinary tract infection 876314270 N39.0 servce called for abd painfound 62 girish withDiabet es,COPD/As thma,Hyper tensionrec urrent UTIc/o 2-3 lower abd pain, urinary frequency, back painmost recent UCx 10/2022 with mixed floraAll: augmentin, bactrimVS noted elev BPreported examabd tender LLQ and RLQ #UTIempiri c macrobidf/ up Ucx 97712 Mandy Portillo MD [facility] - [facility] [address] [place] [address] 64916-111 0 05/29/2023 21:28:01 05/29/2023 22:30:30 Urinary symptoms [id number] R39.9 [id number] Sara Rucker MD [facility] - [facility] [address] [place] [address] 90094-713 0 05/30/2023 13:40:04 05/30/2023 15:20:06 Pyelonephritis 83727095 N12 Urinary symptoms 4055869 08 R39.9 10767 Ninoska Juarez MD Main - [facility] [address] [place] [address] 54925-334 0 06/17/2023 20:18:31 06/19/2023 11:51:51 Community acquired pneumonia 722744114 J18.9 33006 Abida Mcleod MD [facility] - [facility] [address] [place] [address] 31001-682 0 07/02/2023 18:08:47 07/03/2023 17:43:48 Abdominal pain 04724158 R10.9 62 year old female being evaluated [...] assessment and plan as documented by the bandoleer straightener stamper. I provided real-time medical direction for this encounter and was immediatel y available to provide additional phone-base d assistance as needed. We discussed the diagnostic uncertaint y of home visits and associated risks. We discussed the need to seek care urgently/e mergently in the setting of any new or worsening symptoms. 23910 EMELY DHILLON MD Main - [facility] [address] [place] [address] 02792-830 0 07/14/2023 20:33:44 07/16/2023 10:38:00 Urinary symptoms [id number] R39.9 Evaluation in the field was performed by my bandoleer straightener stamper colleague, as noted above, I provided real-time [...] plan for BMP and IV hydration, but bandoleer straightener stamper unable to place a PIV or draw [...] pain CVA tenderness or any other concerns. 10902 EMELY DHILLON MD Main - [address] 13897-659 0 07/15/2023 20:22:18 07/16/2023 10:43:33 Left lower quadrant pain 390150486 R10.32 Evaluation in the field was performed by my bandoleer straightener stamper colleague, as noted above, I provided real-time [...] Department Primary care, consider__ _ Dispositio n:ER 22953 Marita Ramos MD Main - [address] 93241-822 0 07/25/2023 08:03:15 07/26/2023 09:54:40 Seasonal allergy 465104143 J30.2 97548 Abida Mcleod MD Main - [address] 68891-523 0 09/28/2023 18:39:05 09/28/2023 20:43:24 Pain of left shoulder joint 7415065090 1781183 M25.512 63 year old female being evaluated [...] assessment and plan as documented by the bandoleer straightener stamper. I provided real-time medical direction for this encounter and was immediatel y available to provide additional phone-base d assistance as needed. We discussed the diagnostic uncertaint y of home visits and associated risks. We discussed the need to seek care urgently/e mergently in the setting of any new or worsening symptoms. 36883 EMELY DHILLON MD [facility] - [facility] [address] [place] [address] 78231-992 0 09/30/2023 18:55:46 10/01/2023 12:23:23 Pain of left shoulder joint 9358963020 4381065 M25.512 Evaluation in the field was performed by my bandoleer straightener stamper colleague, as noted above, I provided real-time [...] arm, CP, SOB or any other concerns. 55828 EMELY DHILLON MD Main - [facility] [address] [place] [address] 73545-287 0 10/03/2023 18:14:26 10/04/2023 12:20:55 Pain of left shoulder joint 3168235991 7413807 M25.512 Evaluation in the field was performed by my bandoleer straightener stamper colleague, as noted above, I provided real-time [...] vomiting. The patient took Ibuprofen 800 mg [facility] 3 hours prior to the visit. [...] Lidocaine gel sent to her pharmacy- una the pharmacy was closed , so could [...] arm, CP, SOB or any other concerns. 11096 EMELY DHILLON MD Main - [facility] [address] [place] [address] 52794-362 0 10/12/2023 09:53:35 10/12/2023 22:05:57 Acute sinusitis 36661187 J01.90 Evaluation in the field was performed by my bandoleer straightener stamper colleague, as noted above, I provided real-time [...] Vital signs stable. Low-grade temperatur e of 99.9 F (post-Tyle nol).Exam reveals maxillary sinus tenderness and [...] first dose was administer ed by the bandoleer straightener stamper. -A prescripti on for Flonase was sent [...] tolerate PO, weakness or any other concerns. 39756 EMELY DHILLON MD Main - [facility] [address] [place] [address] 27403-542 0 11/08/2023 17:29:57 11/08/2023 23:24:56 Candidal intertrigo 474619681 B37.2 Evaluation in the field was performed by my bandoleer straightener stamper colleague, as noted above, I provided real-time direction and supervisio n for this visit. The evaluation revealed a 63-year-ol d female with a past medical history of diabetes mellitus, COPD, hypertensi on, and chronic shoulder pain, presenting with complaints of a fungal infection under both breasts. The patient reports she went to [facility] ED on 11/04 for a rash [...] rash in new areas any other concerns. [id number] Marita Ramos MD Main - [facility] [address] [place] [address] 60269-695 0 11/12/2023 14:09:08 11/13/2023 13:10:59 Candidal intertrigo [id number] B37.2 88494 Jas Woodall MD Main - [facility] [address] [place] [address] 43869-326 0 11/29/2023 11:03:27 11/29/2023 15:42:06 Pain of shoulder region 25246495 M25.519 69040 Marita Ramos MD Main - [facility] [address] [place] [address] 09637-586 0 12/15/2023 15:20:51 12/15/2023 19:16:04 Pruritic rash [id number] L28.2 28596 Luis Cutler MD Main - [facility] [address] [place] [address] 28079-714 0 12/16/2023 20:24:02 12/17/2023 00:34:23 Pain of bilateral hands 9733101152 2718696 M79.641 As noted, we were called to see this patient regarding concerns of hand pain. Evaluation in the field was performed by my bandoleer straightener stamper colleague, as noted above, I provided real-time [...] today Primary care, considerch asim in call [id number] KATE KESSLER MD Main - [facility] [address] [place] [address] 36584-706 0 01/03/2024 17:27:17 01/03/2024 18:46:50 Pain of right knee joint 9000135010 53759 M25.561 90373 Wes Regan MD Main - [facility] [address] [place] [address] 07304-210 0 01/16/2024 19:06:51 01/17/2024 08:57:49 History of operative procedure on shoulder 125708622 Z98.890 82107 Luis Cutler MD Main - [facility] [address] [place] [address] 60755-104 0 01/20/2024 18:38:49 01/20/2024 21:54:58 Pain of shoulder region 88802988 M25.519 As noted, we were called to see this patient regarding concerns of severe shoulder pain apparently due to an injury in a sensitive recently post-op patient. Evaluation in the field was performed by my bandoleer straightener stamper colleague, as noted above, I provided real-time direction and supervisio n for this visit. Impression :Severe shoulder pain, refractory to OTC APAP Plan:IV or IM ketorolac 30 mg [id number] Marita Ramos MD Main - [facility] [address] [place] [address] 62490-265 0 02/10/2024 17:37:40 02/12/2024 21:08:43 Urinary symptoms 973961011 R39.9 [id number] EMELY DHILLON MD Main - [facility] [address] [place] [address] 03426-003 0 02/16/2024 20:12:37 02/18/2024 00:14:16 Pain of left shoulder joint 8337186640 7807012 M25.512 Evaluation in the field was performed by my bandoleer straightener stamper colleague, as noted above, I provided real-time [...] arm, CP, SOB or any other concerns. 25068 Loi Wu MD Main - [address] 01290-514 0 02/28/2024 13:48:17 02/28/2024 20:22:02 Upper respiratory infection 22452294 J06.9 22717 Marita Ramos MD [facility] - [address] 59427-546 0 03/05/2024 16:43:16 03/05/2024 19:19:50 Asthma 952971316 J45.909 40184 Maryanne Yip MD [facility] - [address] 92277-216 0 03/15/2024 14:54:03 03/18/2024 16:38:13 Upper respiratory infection 39640776 J06.9 Evaluation in the field was performed by my bandoleer straightener stamper colleague, as noted above, I provided real-time direction and supervisio n for this visit. 63yo F asthma, HTN p/w ongoing nasal congestion , cough. On prednisone x 48 hrs without improvemen t. Denies feveres, orthopnea, PND. On bandoleer straightener stamper eval sat 97% rest also wnl, exam without sig wheezing, good air movement. POC COVID and flu negative. Recommend symptomati c mgmt, pt frustrated as she is unable to afford OTCs. Encouraged f/up with allergy/im munology and PCP given chronicity of symptoms. PCP: given frequent pt visits for URI symptoms [facility] We discussed the diagnostic [...] shortness of breath, cough, chest pain, fever. 28815 Rogelio Vasquez MD Main - [facility] [address] [place] [address] 38679-044 0 03/16/2024 10:41:49 03/18/2024 17:02:49 Viral upper respiratory tract infection 539853704 J06.9 Patient 4 days into prednisone course. Vitals stable. Taking inhalers at home though mild wheezing noted by bandoleer straightener stamper and administer ed duoneb with good effect. Declined COVID/flu testing as out of window for treatment. Discussed red flag signs for which to seek higher level of care. 81070 Rangel Robledo MD Main - [facility] [address] [place] [address] 27413-074 0 03/27/2024 11:44:09 03/27/2024 14:25:14 Sore throat 570785401 J02.9 33778 Ninoska Juarez MD Main - [facility] [address] [place] [address] 74249-903 0 03/29/2024 17:58:44 03/30/2024 15:29:24 Pharyngitis 941919224 J02.9 11304 Rangel Robledo MD Main - [facility] [address] [place] [address] 07257-359 0 04/13/2024 12:47:37 04/14/2024 09:49:23 Viral upper respiratory tract infection 059129476 J06.9 Acute pharyngitis 341837 003 J02.9 14659 Rogelio Vasquez MD Main - [facility] [address] [place] [address] 58862-010 0 04/17/2024 18:32:56 04/17/2024 21:18:53 Effusion of joint of right knee 6591909484 53320 M25.461 Effusion with difficulty walking; in past has required drainage. Given severity of pain advised to go to ED for evaluation and patient in agreement in order to get aspiration . [id number] Marita Ramos MD Main - [facility] [address] [place] [address] 27583-894 0 04/21/2024 20:25:45 04/22/2024 10:22:29 Generalized anxiety disorder 44808132 F41.1 99549 EMELY DHILLON MD Main - [facility] [address] [place] [address] 68398-201 0 05/03/2024 18:00:06 05/05/2024 13:55:51 Pain of right knee joint 2962695389 25860 M25.561 Evaluation in the field was performed by my bandoleer straightener stamper colleague, as noted above, I provided real-time [...] VS stableExam done and discussed with the bandoleer straightener stamper : R knee reveals visible swelling and [...] to move put weight on that leg 22356 Mandy Portillo MD Main - [facility] [address] [place] [address] 84164-995 0 05/31/2024 15:20:28 06/02/2024 14:38:52 Complication associated with neurological device 894485555 T85.199A 63502362 66103 KYRA VACA MD Main - [facility] [address] [place] [address] 81349-181 0 06/22/2024 19:35:09 06/23/2024 13:27:58 Pain of right knee joint 8858448694 66506 M25.561 576543 13392 Amparo Jenkins MD Main - [facility] [address] [place] [address] 27154-013 0 07/05/2024 14:45:11 07/05/2024 15:41:41 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 Evaluation in the field was performed by my bandoleer straightener stamper colleague, as noted above, I provided real-time direction and supervisio n for this visit. The evaluation revealed 63 yo woman with prior fungal skin rash who calls for recurrence . She is out of nystatin powder.Navin h is typical on exam. She has no systemic symptoms. Impression :fungal rash Plan:nysta tin powder Dispositio n: We discussed the diagnostic uncertaint [...] changes to consciousn ess, chest pain, dyspnea. 13942 Loi Wu MD Main - [address] 18281-786 0 07/07/2024 11:26:15 07/07/2024 20:09:29 Dermal mycosis 07526015 B36.9 [id number] 88138 Mandy Portillo MD [facility] [address] 47880-207 0 08/24/2024 21:04:29 08/25/2024 11:06:39 Left lower quadrant pain 425057420 R10.32 [id number] 02771 CHI TOBAR MD [address] 74231-381 0 09/28/2024 12:18:57 09/29/2024 21:02:38 Vertigo 606376854 R42 75471 21983 EMELY DHILLON MD [address] 20173-704 0 11/01/2024 21:24:41 11/03/2024 23:48:25 Dizziness 014252435 R42 80391 As noted, we were called to see this patient regarding concerns of ___ Evaluation in the field was performed by my bandoleer straightener stamper colleague, as noted above, I provided real-time direction and supervisio n for this visit. The evaluation revealed 64-year-ol d female with PMH of COPD/asthm a, severe persistent mental illness (SPMI), hypertensi on, anxiety disorder, rheumatoid arthritis, and prior pneumonia, presenting with acute dizziness. HPI:Patien t reports new onset of dizziness, nausea, headache, and generalize d weakness beginning this morning. She has a prior history of vertigo and took meclizine today without improvemen t. Reports normal food and fluid intake. Denies trauma, fever, chills, alcohol or illicit drug use. No history of CVA. Denies anticoagul ant use and states she is medication -compliant . Vital Signs:BP: 104/68 , HR: 80 , RR: 16, Temp: 97.8 F, SpO2: 96% RAExamNeur o:Finger-t o-nose: impaired tracking on right, intact on left.No pronator drift present.Br ief episode of altered awareness ( o ut of it ~10 sec).Progr ession noted during assessment : new right facial droop, slurred speech, and right visual neglect.Ge neral: Progressiv e neurologic decline with waxing/wan ing responsive ness.Tasneem mcnamaraeren reviewedIm pression:T his patient s course demonstrat es progressiv e focal neurologic deficits consistent with an acute ischemic stroke. Plan:Patie nt transferre d to the ED for stroke activation and neuroimagi ng.Multipl e attempts to connect with ED at [facility] were unsuccessf ul; patient was nonetheles s transporte d for emergent evaluation . Primary care, consider__ _ Dispositio n:We discussed the situation and I recommende d referral to the emergency department . 23548 KYRA VACA MD [facility] [address] 17931-684 0 12/03/2024 17:11:49 12/04/2024 12:32:35 Pain of left shoulder joint 1626522619 7129423 M25.512 397722 76077 Amparo Jenkins MD [facility] [address] 16489-698 0 12/07/2024 19:57:45 12/07/2024 21:48:00 Dizziness 094678323 R42 54565 As noted, we were called to see this patient regarding concerns of dizziness and ear pain. Evaluation in the field was performed by my bandoleer straightener stamper colleague, as noted above, I provided real-time [...] changes to consciousn ess, chest pain, dyspnea. 48089 Mandy Portillo MD [facility] ED Medical [address] 77991-492 0 12/14/2024 17:32:24 12/16/2024 15:37:40 Pain of toe of left foot 3571369881 27144 M79.675 [id number] 54544 EMELY DHILLON MD [facility] [address] 63541-486 0 12/19/2024 18:01:46 12/19/2024 20:03:30 Urinary symptoms 387739703 R39.9 99882 Evaluation in the field was performed by my bandoleer straightener stamper colleague, as noted above, I provided real-time [...] urinary retention, or shortness of breath develop. 20193 KYRA VACA MD Main-[facility] ED Medical [address] 24470-775 0 12/21/2024 20:09:27 12/22/2024 11:56:05 Right upper quadrant pain 936631891 R10.11 [id number] Health Concerns Section Related Observation LastModified by Organization Detai ls LastModified Time None Recorded Concern Status LastModified by Organization Details LastModified Time None Recorded Advance Directives Directive None Recorded Payers Insurance Date Sequence Insurance Name Policy Number Policy Valdez Covered Member ID Valdez Member ID Guarantor Name 07/03/2023 1 [facility] - DOS PRIOR TO 2022 - DUAL ELIGIBLE (MEDICARE REPLACEMENT/ADV ANTAGE - HMO) Elizabeth Huang [id number] Elizabeth Huang 12/21/2024 1 [facility] - DOS ON OR AFTER 2022 - DUAL ELIGIBLE - PENITENTIARY OPTIONS AND ONE CARE (MEDICARE REPLACEMENT/ADV ANTAGE - HMO) Elizabeth Huang [id number] Elizabeth Perezgent Notes Date Note Type Note Provider Name and Address Organization Details Recorded Time 12/03/2024 text/html ROS as noted in the [facility] Nurse Triage Notes (Shira Henning): Reason For Request: Patient's Left Arm is swollen and painful. Denies: Valderrama Flash, circumferential valderrama Valderrama reported with black tissue to the area Open skin area after a fall with uncontrolled bleeding Abscess/infection with streaking noted, presence of fever or without History of cellulitis, isolated redness noted Fever and chills noted in setting of wound Rash Bites -bugs, spider Abscess Chief Complaints: Extremity Swelling PMH: COPD/Asthma, Severe Persistent Mental Illness (SPMI), Hypertension, Anxiety Disorder, Rheumatoid Arthritis, Pneumonia PMH Reviewed at 12/03/2024 - 16:03 Allergies Reviewed at 12/03/2024 - 16:03 Pain Assessment: Level 10 out of 10 Comments: 64 y.o female complains of Extremity Swelling Pt has c/o upper arm swelling on left arm for a few days. She thinks she slept on it wrong, 10/10 pain . She has been taking tylenol but has not helped, she has not tried ice or heat. The swelling has remained unchanged over the past few days. She has not been lifting or engaging in any repetitive movements. She denies any any falls or injuries. She had surgery on the left arm back in january on the same arm , she does not remember what she had done , but this can occur. She is not on blood thinners, no h/o blood clots. She has no shortness of breath or chest pain I provided information on the mobile health provider response time and advised the patient and/or caregiver to monitor reported signs and symptoms. I discussed the warning signs of when to seek emergency care. ...................... ...................... ...................... ...................... ...................... ...................... ......... Application Programmer Analyst Note From Igor Casas: [facility] visit for female patient with complaint of left shoulder/left upper arm pain. Patient reports chronic history of the same and reports having surgery done last January but does not know what the diagnosis or surgery was. Patient s history does note rheumatoid arthritis as well. Patient denies injury, exertion or strain. Patient presents in no obvious distress sitting on couch in apartment. Vital signs taken as listed. No fever noted. Patients arm and shoulder were examined with no external signs of injury. No appreciable swelling though patient believes there is some. Patient has a lidocaine patch on the left shoulder. Image taken of for [facility] review. Consulted with [facility] who ordered 30 MG of IM Toradol given on seen by medic. Allergies confirmed prior to administration. No contraindications noted. Patient informed she can resume oral NSAIDs tomorrow to get her through to pain management appointment this Sunday. [facility] Medication Orders: ketorolac 30 mg/mL injection solution: Administered ...................... ...................... ...................... ...................... ...................... ...................... ......... [facility] Consulted: Kyra Vaca ...................... ...................... ...................... ...................... ...................... ...................... ......... Disposition: Fulfilled KYRA VACA MD [address] [facility],[address], [place], [phone], [address] 12/03/2024 22:01:09 12/07/2024 text/html CRC Nurse Triage Notes (Jaylen Escobar): Reason For Request: right ear bothering her, vertigo Denies: Sudden onset of dental pain, unable to manage own secretions Nosebleed lasting longer than one hour; unable to stop bleeding Throat swelling/difficult swallowing Chief Complaints: Ear Complaint, Dizziness PMH: COPD/Asthma, Severe Persistent Mental Illness (SPMI), Hypertension, Anxiety Disorder, Rheumatoid Arthritis, Pneumonia PMH Reviewed at 12/07/2024:40 Allergies Reviewed at 12/07/2024:40 Comments: 64 y.o female complains of Ear Complaint, Dizziness Patient calling reporting my R ear has been acting up all weekend . Patient reports the R ear gets infected easily, states I get swimmer's ear . Patient also reports she is having episodes of dizziness and she does have a history of vertigo. Patient reports pain inside the canal of the R ear. Patient states she has tried Acetaminophen every 6 hours with some relief [...] to seek emergency care -Allison Escobar RN ...................... ...................... ...................... ...................... ...................... ...................... ......... Application Programmer Analyst Note From Carroll Bettencourt: Patient Chief complained today of right-sided ear pain. Patient notes that all signs and symptoms have been occurring for approximately 3 days prior to [facility] arrival on scene today. Patient also expresses [...] or a person. Upon auscultations of lungs [facility] note slight congestion. However, no difficulty with immediate breathing. Benign abdominal exam, no new or worsening noted lower extremity edema. Patient is CaoX4 with a GCS of 15. [facility] Amparo jenkins consulted. Patient is informed of findings. Patient informed she may take Tylenol PRN every 4 hours for pain relief as needed. Patient also informed she may use her Duo nebulizer approximately every 4 to 5 hours as needed for assistance with any congestion and or shortness of breath. [facility] sends over prescription to patient preferred pharmacy ear solution antibiotic. [facility] provider educates patient on general red flag signs and symptoms and expresses to call emergency services if any. Present. Patient told to call her PCP at earliest convenience for follow-up as needed. ...................... ...................... ...................... ...................... ...................... ...................... ......... [facility] Consulted: Amparo Jenkins ...................... ...................... ...................... ...................... ...................... ...................... ......... Disposition: Jamie Jenkins MD [address] [place] [address],[address], [place], [phone] [address] 12/07/2024 21:25:23 12/14/2024 text/html CRC Nurse Triage Notes (Barbara Campos): Reason For Request: Patient has sharp pain on her left Pinky Toe. Denies: Valderrama Flash, circumferential valderrama Valderrama reported with black tissue to the area Open skin area after a fall with uncontrolled bleeding Abscess/infection with streaking noted, presence of fever or without Chief Complaints: Extremity Pain PMH: COPD/Asthma, Severe Persistent Mental Illness (SPMI), Hypertension, Anxiety Disorder, Rheumatoid Arthritis, Pneumonia PMH Reviewed at 12/14/2024 - 16:11 Allergies Reviewed at 12/14/2024 - 16:11 Comments: 64 y.o female complains of Extremity Pain Patient calling in to place a referral Patient with left 4th and 5th toe pain on/off for a few weeks She reports the pain is constant today and worse, radiating to her whole foot She has been out all day and does not know if there is any redness, warmth or swelling to the toes or foot, but does endorse some relief with removing her shoe She also endorses it feeling like pins and needles running through her toes No history of gout She takes gabapentin TID and celebrex, which offers her some relief occasional, but none today She denies any injury or trauma to the toes/foot She would like to be evaluated I provided information on the mobile health provider response time and advised the patient and/or caregiver to monitor reported signs and symptoms. I discussed the warning signs of when to seek emergency care. ...................... ...................... ...................... ...................... ...................... ...................... ......... Application Programmer Analyst Note From Carroll Bettencourt: Patient Chief complaint today of left foot small toe pain. Patient expresses that all signs and symptoms have been occurring for multiple weeks up to about three prior to [facility]. Patient notes that increase level of pain has occurred within the last 3 days. Prompting the patient to need [facility] assistance today. Patient expresses there has been no trauma that she is able to recall to the area. Patient is on prescribed gabapentin for neurological damage 800 mg of gabapentin three times per day. Patient expresses that no significant relief has occurred with the gabapentin being taken. Patient today. Would appreciate general assessment as well as potential treatment if possible. Patient endorses no signs and symptoms of chest pain, shorts of breath, NVD, dizziness and or changes in vision. Non-neurofocal exam, afebrile, all vitals within the normal baseline limits of the patient. Patient able to ambulate at her appropriate baseline without the use of a walking device and or person. Patient lungs present as clear bilaterally upon auscultation. Benign abdominal exam, no new and or worsening noted lower extremity edema. Upon assessment of area in question. [facility] provider notes no deformity, bleeding, trauma and or signs of fracture to the area. Tender upon palpation, 7 out of 10 level of pain. Patient does endorse some relief with removal of shoe. Patient is noted to be CHEEK* 4 with a GCS of 15. Positive CSM in all extremities. [facility] Bandar Galvan consulted Patient informed the findings Patient told to limit her use of shoes as well as to allow her foot to rest without walking. Patient informed she may use Tylenol as needed for pain management. Patient also informed to contact her PCP as well as her neurologist for potential follow-up as needed. Patient educated on red flag signs and symptoms and told to call emergency services if any present. ...................... ...................... ...................... ...................... ...................... ...................... ......... [facility] Consulted: Mandy Portillo ...................... ...................... ...................... ...................... ...................... ...................... ......... Disposition: Jamie Portillo MD [address] [facility],[address], [place], [phone], [address] 12/14/2024 21:13:33 12/19/2024 text/html ROS as noted in the [facility] Nurse Triage Notes (Emmanuelle Schumacher): Reason For Request: back pain Patient Reports: Painful urination; Frequent and increased urination with flank pain; Painful urination with or without fever Denies: Unable to void greater than 5 hours Erection that will not go away after 2 hours Fall or trauma that results in urinary incontinence in the setting of pain Fall or injury that results in incontinence in the absence of pain Lower back pain either unilateral or bilateral, unable to void, painful urination -hematuria Inability to fully empty bladder Chief Complaints: Back Pain PMH: COPD/Asthma, Severe Persistent Mental Illness (SPMI), Hypertension, Anxiety Disorder, Rheumatoid Arthritis, Pneumonia, Kidney Stones PMH Reviewed at 12/19/2024: Allergies Reviewed at 12/19/2024:40 Pain Assessment: Level 10 out of 10 Comments: 64 y.o female complains of Back Pain Self-referring. Sharp and dull L sided weakness along with dysuria starting this morning. Per patient prone to kidney stones and similar symptoms now. Denies hematuria. Unsure if its cloudy, reports it is malodorous. Increased frequency and urgency. Denies fever/chills, nausea/vomiting. Pain worse with movement. Rating pain PRN 10/10. Took PRN Celebrex and gabapentin right before the call. Originally attributed it to constipation but pain not improved after bowel movement. Not on anticoagulation. Denies kidney issues aside from frequent kidney stones. I provided information on the mobile health provider response time and advised the patient and/or caregiver to monitor reported signs and symptoms. I discussed the warning signs of when to seek emergency care. Application Programmer Analyst Organization Information for [employer] Legal Name: [employer]. Address: [address] [place] [address], Adult Ministries Director: Burton Kruse MD CLIA No.: [id number] Application Programmer Analyst POC Test Results from Dylon Carranza Urine Dipstick (17:50:59) Urine leukocytes: -MOHAMUD Urine nitrites: -NIT Urine urobilinogen: 0.2 3.5URO Urine protein: 15 o.15PRO Urine pH: 7pH Urine blood: -BLO Urine specific gravity: 1SG Urine ketones: -KET Urine bilirubin: 1 17BIL Urine glucose: -GLU ...................... ...................... ...................... ...................... ...................... ...................... ......... Application Programmer Analyst Note From Dylon Carranza: Dispatched to the above address for a 64 y/f with a cc of possible UTI. Proper ppe was worn throughout the call. Upon arrival: Pt AOx4 greeted [facility] and gave a verbal report. Pt stated that for the past 2 weeks she has been having the following complaints: lower left abd pain that radiates to her left flank/burning sensation when urinating/painful urination/frequent urination'. Pt stated that she has a hx of kidney stones/UTI and her last known kidney stone was 2 months ago. Pt stated that this episode feels like another kidney stone, but is not sure due to poor vision (baseline) and unable to see if there is any blood/cloudiness in the urine. Pt denied to diff urination. Pt also added that she ran out of her albuterol and has been having some minor SOB when walking around. Pt noted that she is supposed to pickup the albuterol tomorrow. AOx4 - Airway: Patent - Breathing: equal chest rise and fall - LS: diminished in the bases, minor wheezing in the apice - Skin: pink, warm, dry - Pupils: PERRL - CMSx4 - Lower extremity: no edema noted - ABD: soft, non tender, no discoloration, pain on palpation noted to the left lower quadrant (pt explained the the pain is present , but doesn't get worse or better on palpation) Pain also radiates to her left flank (pt noted that she had the same complaints with her last kidney stone - Back: no crepitus, (-) CVA tenderness - Pelvis: stable. Pt denied to headaches/dizziness/ch est pain/blood in urine/difficulty urinating/vaginal discharge/vaginal itchiness/fever/diarrh ea/constipation/cough. HEENT. skin in tact with no deformity. Pupils were equal and reactive to light bilaterally. Eyes tracking normally to six cardinal points of gaze. Nose and mouth were unobstructed. Trachea midline, jugular veins were nondistended in seated position. Face symmetrical with equal movement and sensation. Patient denied changes to vision or hearing and denied double vision. Tongue and uvula midline with palate raises symmetrically. No arm drift present, finger - nose test normal, no neglect noted. FAST ED score: 0 MIH performed urine dip stick (clean catch) [facility]: gave orders for BMP, and possible fluids/Toradol after BMP. MIH attempt multiple times with no success. Pt stated that she is a hard stick and noted that last time at the ER 9 attempts were made for an iv line. After [facility] notified, orders were given to administer 15 mg of ketorolac IM/duo neb (successfully done). medications sent over to pt pharmacy. Pt educations/red flags given. Pt understood. MIH clear. All times approximate. [facility] Lab Orders: culture, urine: Performed urinalysis, dipstick: Performed [facility] Medication Orders: ipratropium 0.5 mg-albuterol 3 mg (2.5 mg base)/3 mL nebulization soln: Performed ketorolac 15 mg/mL injection solution: Performed ...................... ...................... ...................... ...................... ...................... ...................... ......... [facility] Consulted: Emely Dhillon ...................... ...................... ...................... ...................... ...................... ...................... ......... Disposition: Jamie EMELY DHILLON MD [address] [facility],[address], [place], [phone], [address] 12/19/2024 19:32:42 12/21/2024 text/html ROS as noted in the [facility] Nurse Triage Notes (Jaylen Escobar): Reason [...] Pneumonia, Kidney StonesPMH Reviewed at 12/21/2024 - 17:01Allergies Reviewed at 12/21/2024 - :Comments: 64 y.o [...] to seek emergency care -Allison Escobar RN ...................... ...................... ...................... ...................... ...................... ...................... ......... Application Programmer Analyst Note From Carroll Bettencourt: Patient Chief complaint today of right upper abdominal quadrant pain. Patient notes that all signs and symptoms have been occurring for 48 hours [facility] to [facility]. Patient notes [...] extremity edema. Upon assessment of abdomen [facility] provider notes no Rigidity/ deformity or trauma to the area. Patient does note tenderness upon palpation in upper right quadrant no guarding. Patient is Cheek x 4 with a GCS score of 15. 22 gauge IV placed in right hand. Unable to acquire blood work. [facility] Kyra Vaca consulted Patient is informed that due to her Chief complaint as well as past medical history, it is recommended for her to be seen at a center of higher care for diagnostic imaging. Patient agrees. [facility] provider contact local emergency services. [facility] calls ahead to [facility] in [place], [place] for report. [facility] provider remains on scene to provide full transfer of care to [facility] crew. ...................... ...................... ...................... ...................... ...................... ...................... ......... [facility] Consulted: Kyra Vaca ...................... ...................... ...................... ...................... ...................... ...................... ......... Disposition: Fulfilled KYRA VACA MD [address] [place] [address],[address] [facility], [place], [phone], [address] 12/21/2024 22:40:32 OBGyn Episode No OBEpisode recorded.
--- OUTSIDE RECORDS SUMMARY | 2024-12-25 17:18 | XMS_ITS | Continuity of Care Document ---
Author Name instED, Medical Address [address] [place] [id number] Organization Unknown Address [address] [place] [address] Medications No known medications Problems No known problems
--- OUTSIDE RECORDS SUMMARY | 2024-12-25 17:18 | XMS_ITS | Continuity of Care Document ---
Author Organization [place] - [facility], GLENDY Vargas 1st Floor Address [address] [place] [address] Care Team Providers Care Production Pattern Maker Name Role Phone PONCHO BAHENA Primary Care Provider Assessment No assessment recorded. Plan of Treatment Reminders Order Date Submit Date Provider Last Modified By Organization Details Last Modified Time Details Appointments RECHECK 15 2024 02:00P M Aaron Toney PA-C Not available Not available Not available Lab None recorded. Referral None recorded. Procedures None recorded. Surgeries None recorded. Imaging MRI, knee, w/o contrast - right knee mri ?MMT [address] [facility] ([facility]), [address], [place], [address], 10/21/2024 15:44:46 XR, knee, 4 or more view - room 112, R knee 4v 2024 025 becki [facility], [address], [facility] [address], [place], [address], 09/30/2024 16:48:25 Medication Orders meloxicam 15 mg tablet 2024 025 [email or web address] [facility], [address] [place] [address], [address], 09/30/2024 16:48:25 Patient TargetsNo targets recorded. Patient InstructionsNo instructions recorded. Reason for Referral None Reported. Results Created Date Observation Date Name Description Value Unit Range Abnormal Flag Note LastModifiedBy Organization Detail LastModifiedTime 10/01/1909/30/2024 XR, knee, 4 or more view http:/ [email or web address]:[email or web address] ?Encry pted=s hAaTro YD8dLq bEUv6g %2BXZw aYqtaq 0bqfl% 2Fg9IQ a4ajBk vP9nXo QUaueC m3YtLR FvZlgJ JJ8mAn HZtai3 9y5290 AC0Klb 3%2BNV qKhKiQ trMwF INTERFACE [facility] [address], [place], [address], 09/30/2024 16:27:59 10/01/19 25 09/30/2024 XR, knee, 4 or more view http:/ [email or web address] ?Encry pted=s hAaTro YD8dLq bEUv6g %2BXZw aYqtaq 0bqfl% 2Fg9IQ a4ajBk vP9nXo QUaueC m3YtLR FvZlgJ JJ8[place] HZtai3 3l0784 AC0Klb 3%2BNV qKhKiQ trMwF INTERFACE [facility] [address], [place], [address], 09/30/2024 16:28:01 10/22/19 25 10/20/2024 MRI, knee, w/o contr ast [facility] Access ion Number : [id number] Francesco ag Name: Felipa ag, Elizabeth Medica l Record Number : [id number] Date of : 1960 Date of Exam: 2024 Referr ing Physic ritika: Aaron Toney [address] [facility], [facility] s [address] Exam: MR Knee (C-) CPT 96826 - Right Room Descri ption: [place] GE Pion 3T MRI Joint Ext Lower W/O Contra st Right CLINIC AL INDICA TION: Modera te daily right knee pain for years with swelli ng and instab ility. Histor y of a fall on 10/18/19 25. Clinic al concer n for medial menisc al tear. TECHNI QUE: MRI of the right knee was perfor med withou t intrav enous contra st. COMPAR VANCE: MRI of the right knee dated 09/14/19 14 and right knee radiog raphs dated 023. FINDIN GS: Joint effusi on: Small joint effusi on. Mild scarri ng in Hoffa' s fat pad. Menisc i: The medial menisc us is intact . There is a partia lly discoi d latera l menisc us with no eviden ce for latera l menisc al tear. Tendon s and ligame nts: The ACL and PCL are intact . The collat eral ligame nts are unrema rkable . The ilioti bial band is unrema rkable . The extens or mechan ism is normal . Articu lar cartil age and bone: Irregu lar full-t hickne ss chondr al loss is seen over much of the latera l patell ar facet with adjace nt subcho ndral marrow edema like signal . Irregu lar chondr al thinni ng in the medial patell ar facet is seen. Chondr al loss in the latera l trochl ea also extend s full-t hickne ss in the superi or, latera l aspect with adjace nt subcho ndral marrow edema like signal . There is mild periph eral cartil age thinni ng in the medial compar tment and chondr al thinni ng of the disbursement clerk ior aspect of the medial femora l condyl e with mild adjace nt subcho ndral marrow edema like signal . No focal chondr al defect s are seen in the latera l compar tment. Is degene rative change of the proxim al tibiof ibular joint with mild chondr al thinni ng and subcho ndral cysts. IMPRES DONOVAN: 1. No eviden ce of menisc al or crucia te ligame nt tear. 2. Degene rative change greate st in the patell ofemor al joint, progre ssed as compar ed to 2014. I have person ally review ed the images and I agree with this report . WSN: [id number] Orderi ng Physic ritika: Aaron Toney onical ly Signed By: Glory [email or web address] [facility] ([facility]) [address], [place], [address], 11/04/2024 15:07:28 Result Notes Documentation Provider Name and Address Organization Details Recorded Time Xr, Knee, 4 Or More View : [email or web address]? Encrypted=itXxKoiVJ3aRbqL Uv6g%5USEwsEopei1uvyg%2Fg 0BXh3hfGcgY7gQpZUducCz5Re FAXkVngGLE7pUuOCium83m834 8IS3Rdq1%2BNVqKhKiQtrMwF Not Available [facility] 09/30/2024 16:2 8:00 Xr, Knee, 4 Or More View : [email or web address]? Encrypted=vmRiBdtLF8eSiqI Uv6g%0UPGldEymzl2ramt%2Fg 4SFp2xiDviG2cXxIYepzFf1Jb YBFcFxiDOS2pIpNFaio91a308 7UE2Diy6%2BNVqKhKiQtrMwF Not Available [facility] 09/30/2024 16:2 8:02 Medical Equipment None Reported. Allergies Allergen ID Allergen Name Allergen Category Reaction Reaction Severity Criticality Documentation Date Start Date Code Code System Note Provider Name and Address Organization Details Recorded Time 004879 aspartame food,medi cation Not available Not available Not available 09/30/2024 83863 24 RxNorm Minnie rajput [facility] 16:22:00 609070 Augmentin medicatio n Not available Not available Not available 09/30/2024 23390 2 RxNorm Minnie rajput [facility] 16:22:14 941577 Bactrim medicatio n Not available Not available Not available 09/30/2024 45526 9 RxNorm Minnie rajput [facility] 16:22:23 052343 Iodinated contrast media (substanc e) medicatio n Not available Not available Not available 09/30/2024 51960 2004 SNOMED Minnie Samir rajput, [facility] 5 16:22:30 410663 lactose food,medi cation Not available Not available Not available 09/30/2024 6211 RxNorm Minnie rajput, [facility] 5 16:22:38 645451 Seroquel medicatio n Not available Not available Not available 09/30/2024 19299 RxNorm Minnie rajput, [facility] 5 16:22:45 663611 amoxicill in medicatio n Not available Not available Not available 09/30/2024 723 RxNorm Minnie rajput, [facility] 5 16:22:55 985646 aspirin medicatio n Not available Not available Not available 09/30/2024 1191 RxNorm Minnie rajput, [facility] 5 16:23:19 005441 doxycycli ne Not available Not available Not available Not available 09/30/2024 3640 RxNorm Minnie rajput, [facility] 5 16:23:29 642236 morphine medicatio n Not available Not available Not available 09/30/2024 7052 RxNorm Minnie rajput, [facility] 5 16:23:37 129349 nabumeton e medicatio n Not available Not available Not available 09/30/2024 64741 RxNorm Minnie rajput, [facility] 5 16:23:47 539206 Product containin g penicilli n (product) medicatio n Not available Not available Not available 09/30/2024 69972 8001 SNOMED Minnie rajput, [facility] 5 16:23:53 972364 propranol ol medicatio n Not available Not available Not available 09/30/2024 8787 RxNorm Minnie rajput, [facility] 5 16:24:05 897229 sulfameth oxazole / trimethop rim medicatio n Not available Not available Not available 09/30/2024 39424 RxNorm Minnie rajput [place] - [facility] 16:24:15 486945 Thiazide (substanc e) medicatio n Not available Not available Not available 09/30/2024 40792 6002 SNOMED Minnie rajput [place] [facility] 16:24:26 Medications Name Sig Start Date Stop Date Status Note LastModified by Organization Details LastModified Time metformin 500 mg tablet Take 1 tablet twice a day by oral route. active Not Available Not Available No t Available sumatriptan 100 mg tablet Take by oral route. active Not Available Not Available No t Available meloxicam 15 mg tablet Take 1 tablet every day by oral route after meal(s) for 30 days. 2024 active Not Available Not Available Not Avai lable prednisone 20 mg tablet Take 1 tablet every day by oral route. active Not Available Not Available No t Available risperidone 3 mg tablet Take 1 tablet twice a day by oral route. active Not Available Not Available No t Available Sudogest 30 mg tablet Take 2 tablets every 4 hours by oral route. active Not Available Not Available No t Available carbamazepi ne ER 400 mg tablet,exte nded release,12 hr Take 1 tablet every 12 hours by oral route. active Not Available Not Available No t Available oxycodone-a cetaminophe n 5 mg-325 mg tablet TAKE 1 TABLET BY MOUTH EVERY 4 HOURS NEEDED FOR PAIN 09/30 completed Not Available Not Available Not Available gabapentin 800 mg tablet Take 1 tablet 3 times a day by oral route. active Not Available Not Available No t Available dicyclomine 20 mg tablet Take 1 tablet 4 times a day by oral route. active Not Available Not Available No t Available meclizine 25 mg tablet Take 1 tablet 3 times a day by oral route. active Not Available Not Available No t Available pantoprazol e 40 mg tablet,felicia yed release Take 1 tablet every day by oral route. active Not Available Not Available No t Available lisinopril 10 mg tablet Take 1 tablet every day by oral route. active Not Available Not Available No t Available fluticasone 500 mcg-salmete rol 50 mcg/dose blistr powdr for inhalation Inhale 1 puff twice a day by inhalatio n route. active Not Available Not Available No t Available montelukast 10 mg tablet Take 1 tablet every day by oral route. active Not Available Not Available No t Available topiramate 100 mg tablet Take 1 tablet twice a day by oral route. active Not Available Not Available No t Available sertraline 50 mg tablet Take 1 tablet every day by oral route. active Not Available Not Available No t Available prazosin 2 mg capsule Take 1 capsule 3 times a day by oral route. active Not Available Not Available No t Available Abilify 5 mg tablet Take 1 tablet every day by oral route. active Not Available Not Available No t Available estradiol active Not Available Not Jodi ilable Not Available folic acid active Not Available Not Av ailable Not Available Ventolin HFA active Not Available Not Available Not Available FeroSul 325 mg (65 mg iron) tablet Take 1 tablet every day by oral route. active Not Available Not Available No t Available epinephrine 0.3 mg/0.3 mL injection syringe Take by injection route. active Not Available Not Available No t Available Johanny Allergy active Not Available Not Available Not Available methotrexat e 2.5 mg tablet Take by oral route. active Not Available Not Available No t Available Incruse Ellipta 62.5 mcg/actuati on powder for inhalation Inhale 1 puff every day by inhalatio n route. active Not Available Not Available No t Available melatonin 3 mg capsule Take by oral route. active Not Available Not Available No t Available Xolair 75 mg/0.5 mL subcutaneou s auto-inject or Inject by subcutane ous route. active Not Available Not Available No t Available Vitals None Recorded Social History None recorded. Functional Status None recorded. Mental Status None recorded. Family History Nothing Reported. Medical History Condition Response Diabetes Y Breathing or lung disorders Y Anemia Y Kidney/Bladder Problems Y Seizures/Epilepsy Y Arthritis Y Acid Reflux (GERD) Y Hypertension Y COPD Y Asthma Y Gynecological HistoryNo gynecological history recorded. Obstetrics History GPAL:G 0 P 0 0 0 0 Past Encounters Encounter ID Performer Location Encounter Start Date Encounter Closed Date Diagnosis/Indication Diagnosis SNOMED-CT Code Diagnosis ICD10 Code Diagnosis IMO Codes Diagnosis Note [id number] [facility] Alexander [address] [place] [address] 09/30/2024 15:59:08 10/15/2024 06:54:58 Pain of right knee joint 8380364868 24514 M25.561 745563 Tear of me dial meniscus of knee 199859678 S83.241A 45209254 Chondromal acia of right patella 8873958080 7634873 M22.41 5802278 Health Concerns Section Related Observation LastModified by Organization Detai ls LastModified Time None Recorded Concern Status LastModified by Organization Details LastModified Time None Recorded Payers Encounter Date Sequence Insurance Name Policy Number Policy Valdez Covered Member ID Valdez Member ID Guarantor Name 09/30/[address] [facility] - DOS ON OR AFTER 2022 - MEDICARE [place]VANTAGE [place] (MEDICARE REPLACEMENT/ADV ANTAGE - PPO) Elizabeth Huang [id number] Elizabeth Huang Notes Date Note Type Note Provider Name and Address Organization Details Recorded Time 09/30/2024 text/html ROS as noted in the HPI I am seeing the patient today under the supervision of Dr. Pritchard who was available but who did not see the patient. HPI: Patient is a 64-year-old female who presents to the office today with complaint of right knee pain. Patient is having pain on and off for the last couple of years but as of recently has been significantly worse for her. Patient notes the pain to be sharp in the medial aspect of her knee. She did recently present to urgent care clinic was given hinged knee brace. She also previously received a cortisone injection about 6 months ago without any relief. Has been utilizing Tylenol as well as ibuprofen on an as-needed basis. Does complain of clicking within the knee. No catching or locking. Past family, medical, social history and review of systems has been reviewed, updated and is located in the patient s chart. Examination: Well-appearing 64-year-old female in no acute distress. Alert and oriented x 3. Ambulates with a walker. Right knee reveals no erythema, warmth, ecchymosis, swelling noted. Tenderness over the medial joint line. No lateral joint line tenderness. Range of motion from 0-120 degrees with increasing discomfort at endpoint flexion. Mild retropatellar crepitance. Knee is stable to valgus and varus stress testing. Knee strength 5/5 against resistance with flexion and extension. Negative Renetta test. Equivocal Lupillo's maneuver. Calf soft and nontender. 4 views of the right knee obtained and independently reviewed in the office today reveals fairly well-preserved medial lateral joint space. There is degenerative changes noted of the patellofemoral joint especially in the lateral patellar facet with mild lateral patellar tilt. No fracture. Impression:Mild patellofemoral arthritis, and medial meniscus tear Plan:Discussed nature of diagnosis with the patient as well as further conservative management versus potential surgical intervention. Patient does have evidence of patellofemoral arthritis. Most of her symptoms at this point that she is experiencing is in the medial compartment that is sharp. Does have fairly well-preserved joint space so likely experiencing pain from a meniscus tear. she has tried conservative management with anti-inflammatory medications, activity modification as well as previous injection which have not provided her with relief. At this point MRI was ordered to rule out medial meniscus tear versus other internal derangement. In the interim patient was given prescription for meloxicam 15 mg and she will utilize once daily in the morning with food to avoid upset stomach. Advised that utilize any other anti-inflammatory medications while she is taking this to avoid medication interaction. Can continue utilizing Tylenol with this as needed. We did discuss that once MRI results come back to me I will call the patient with these and we will discuss further conservative versus surgical intervention. Patient agrees with this treatment plan. At this time all patient questions and concerns answered and addressed today. Aaron Toney PA-C [address], [place], [address], [facility] 10/01/2024 14:12:27 OBGyn Episode No OBEpisode recorded.
--- OUTSIDE RECORDS SUMMARY | 2024-12-25 17:18 | XMS_ITS | Encounter Summary ---
Author Organization [facility] Address [address] [place] [address] Encounters * CPT with Medical [facility] at [facility] on 2024-12-20 { reasonForRequest : back pain , patientReports : Painful urination; Frequent and increased urination with flank pain; Painful urination with or without fever , denies :[ Unable to void greater than 5 hours , Erection that will not goaway after 2 hours , Fall or trauma that results in urinary incontinence in the setting of pain , Fall or injury that results in incontinence in the absence of pain , Lower back pain either unilateral or bilateral, unable to void, painful urination -hematuria ,"Inability to fully empty bladder ], chiefComplaints : Back Pain , pmh : COPD/Asthma, Severe Persistent Mental Illness (SPMI), Hypertension, Anxiety Disorder,Rheumatoid Arthritis, Pneumonia, Kidney Stones , allergies : Aspirin, Doxycycline, Morphine, Bactrim, Penicillins, Augmentin , otherAllergies :null, painAssessment : Level 10 out of 10 , visitOutcome : , additionalComments : 64 y.o female complains of Back Pain\n\nSelf-referring. Sharp and dull L sided weakness along [...] kidney issues aside from frequent kidney stones. \n\nI provided information on the mobile health provider response time and advised the patient and/or caregiver to monitor reported signs and symptoms. I discussed the warning signs of when to seek emergency care. } Dispatched to the above address for a 64 y/f with a cc of possible UTI. Proper ppe was worn throughout the call. Upon arrival: Pt AOx4 greeted [facility] and gave a verbal report. Pt stated that for the past 2 weeks shehas been having the following complaints: lower left [...] Pt also added that she ran out ofher albuterol and has been having some minor SOB when walking around. Pt noted that she is supposedto pickup the albuterol tomorrow. AOx4 - Airway: Patent - Breathing: equal chest rise and fall - LS: diminished in the bases, minor wheezing in the apice - Skin: pink, warm, dry - Pupils: PERRL - CMSx4 - Lower extremity: no edema noted - ABD: soft, non tender, no discoloration, pain on palpation noted to the left lower quadrant (ptexplained the the pain is present , but doesn't get worse or better on palpation) Pain also radiates to her left flank (pt noted that she had the same complaints with her last kidney stone - Back: nocrepitus, (-) CVA tenderness - Pelvis: stable. Pt denied to headaches/dizziness/chest pain/blood inurine/difficulty urinating/vaginal discharge/vaginal itchiness/fever/diarrhea/constipation/cough. HEENT. skin in tact with no deformity. [...] after BMP. [facility] attempt multiple times with nosuccess. Pt stated that she is a hard stick and noted that last time at the ER 9 attempts were made for an iv line. After [facility] notified, orders were given to administer 15 mg of ketorolac IM/duo neb (successfully done). medications sent over to pt pharmacy. Pt educations/red flags given.Pt understood. [facility] clear. All times approximate. IV_(FLUIDS_AND/OR_MEDICATION), MEDICATION_IM, ORAL_MEDICATION, EKG Written by Medical [facility] on 2024-12-20
--- OUTSIDE RECORDS SUMMARY | 2024-12-25 17:18 | XMS_ITS | Encounter Summary ---
Author Organization Count Includes [facility] Address [address] [place] [address] Encounters * CPT with Medical [facility] at [facility] on 2024-12-14 { reasonForRequest : Patient has sharp pain on her left Pinky Toe. , patie ntReports : , denies :[ Valderrama Flash, circumferential valderrama , Valderrama reported with black tissue to the area , Open skin area after a fall with uncontrolled bleeding , Abscess/infection with streaking noted, presence of fever or without"], chiefComplaints : Extremity Pain , pmh : COPD/Asthma, Severe Persistent Mental Illness (SPMI), Hypertension, Anxiety Disorder, Rheumatoid Arthritis, Pneumonia , allergies : Aspirin, Doxycycline, Morphine, Bactrim, Penicillins, Augmentin&q uot;, otherAllergies :null, painAssessment : , visitOutcome&quot ;: , additionalComments : 64 y.o female complains of Extremity Pain\n\nPatient calling in to place a referral\nPatient with left 4th and 5th toe pain on/off for a few weeks\nShe reports the pain is constant today and worse, radiating to her whole foot\nShe has been out nayeli and does not know if there is any redness, warmth or swelling to the toes or foot, but does endorse some relief with removing her shoe\nShe also endorses it feeling like pins and needles running through her toes\nNo history of gout\nShe takes gabapentin TID and celebrex, which offers her some relief occasional, but none today\nShe denies any injury or trauma to the toes/foot\nShe would like to be evaluated\n\nI provided information on the mobile health provider response time and advised the patient and/or caregiver to monitor reported signs and symptoms. I discussed the warning signs of when to seek emergency care. } Patient Chief complaint today of left foot small toe pain. Patient expresses that all signs and symptoms have been occurring for multiple weeks up to about three prior to [facility] arrival on scene today. Patient notes that increase level of pain has occurred within the last 3 days. Prompting the patientto need [facility] assistance today. Patient expresses there has been no trauma that she is able to recallto the area. Patient is on prescribed gabapentin for neurological damage 800 mg of gabapentin threetimes per day. Patient expresses that no significant relief has occurred with the gabapentin being taken. Patient today. Would appreciate general assessment as well as potential treatment if possible. Patient endorses no signs and symptoms of chest pain, shorts of breath, NVD, dizziness and or changes in vision. Non-neurofocal exam, afebrile, all vitals within the normal baseline limits of the patient. Patientable to ambulate at her appropriate baseline without the use of a walking device and or person. Patient lungs present as clear bilaterally upon auscultation. Benign abdominal exam, no new and or worsening noted lower extremity edema. Upon assessment of area in question. [facility] provider notes no deformity, bleeding, trauma and or signs of fracture to the area. Tender upon palpation, 7 out of 10 levelof pain. Patient does endorse some relief with removal of shoe. Patient is noted to be SMITH* 4 with a GCS of 15. Positive CSM in all extremities. [facility] Galvan consulted Patient informed the findings [...] to call emergency services if any present. IV_(FLUIDS_AND/OR_MEDICATION), MEDICATION_IM, ORAL_MEDICATION, WOUND_CARE, ORTHOSTATIC_VITAL_SIGNS Written by Medical [facility] on 2024-12-14
--- OUTSIDE RECORDS SUMMARY | 2024-12-25 17:18 | XMS_ITS | Data Portability ---
Author Organization [place] - [facility], GLENDY Patterson Address [address] [place] [address] Care Team Providers Care Lead Security Officer Name Role Phone PONCHO BAHENA Primary Care Provider [phone] Assessment No assessment recorded. Plan of Treatment Reminders Order Date Submit Date Provider Last Modified By Organization Details Last Modified Time Details Appointments RECHECK 15 2024 02:00P Kamala Toney PA-C Not available Not available Not available Lab None recorded. Referral None recorded. Procedures None recorded. Surgeries None recorded. Imaging MRI, knee, w/o contrast - right knee mri ?MMT 2024 025 [facility] ([facility]), [address] [facility], [place], [address], 10/21/2024 15:44:46 XR, knee, 4 or more view - room 112, R knee 4v 2024 025 becki [facility], [address], [facility], [place], [address], 09/30/2024 16:48:25 Medication Orders meloxicam 15 mg tablet 2024 025 [email or web address] [facility], [address] [place] [address], [address], 09/30/2024 16:48:25 Patient TargetsNo targets recorded. Patient InstructionsNo instructions recorded. Reason for Referral None Reported. Results Created Date Observation Date Name Description Value Unit Range Abnormal Flag Note LastModifiedBy Organization Detail LastModifiedTime 10/01/1909/30/2024 XR, knee, 4 or more view http:/ [email or web address] 0:7083 ?Encry pted=s hAaTro YD8dLq bEUv6g %2BXZw aYqtaq 0bqfl% 2Fg9IQ a4ajBk vP9nXo QUaueC m3YtLR FvZlgJ JJ8mAn HZtai3 4j5079 AC0Klb 3%2BNV qKhKiQ trMwF INTERFACE [facility] [address], [place], [address], 09/30/2024 16:27:59 10/01/19 25 09/30/2024 XR, knee, 4 or more view http:/ [email or web address] 20 0:7083 ?Encry pted=s hAaTro YD8dLq bEUv6g %2BXZw aYqtaq 0bqfl% 2Fg9IQ a4ajBk vP9nXo QUaueC m3YtLR FvZlgJ JJ8mAn HZtai3 0i9609 AC0Klb 3%2BNV qKhKiQ trMwF INTERFACE [facility] [address], [place], [address], 09/30/2024 16:28:01 10/22/19 25 10/20/2024 MRI, knee, w/o contr ast [facility] Access ion Number : [id number] Frances[address] ag Name: Felipa ag, Elizabeth Medica l Record Number : [id number] Date of : 1960 Date of Exam: 2024 Referr ing Physic ritika: Aaron Toney [address] [facility], [facility] [address] Exam: MR Knee (C-) CPT 23582 - Right Room Descri ption: Bois D Arc GE Pion 3T MRI Joint Ext Lower [...] and chondr al thinni ng 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 WSN: [id number] Orderi ng Physic ritika: Aaron Toney onical ly Signed By: Glory White ra, MD, [email or web address] [facility] ([facility]) [address], [place], [address], 11/04/2024 15:07:28 Result Notes Documentation Provider Name and Address Organization Details Recorded Time Xr, Knee, 4 Or More View : [email or web address] Encrypted=foOmClpKY3zDgsS Uv6g%4QQJwcKbqgo1utaj%2Fg 4GJp0drLrfA0tXkXFbytLg6Us DDMwRbwESP0kUaSNjsq28i903 8BG4Gfy4%2BNVqKhKiQtrMwF Not Available [facility] 09/30/2024 16:28:00 Xr, Knee, 4 Or More View : [email or web address] Encrypted=nbBfHgzDF7oBeiK Uv6g%2QFBqvNoxyn7btse%2Fg 4SFv4tnMgvZ3bDgELxweNj3Fc TBAxJydREO7pZaSXnuy23v622 9LC8Env6%2BNVqKhKiQtrMwF Not Available [facility] 09/30/2024 16:28:02 Mri, Knee, W/o Contrast : [facility] Accession Number: [id number] Patient Name: Elizabeth Huang Date of : 1960 Date of Exam: 10-20-2024 Referring Physician: Aaron Toney [address] [place], [place] [address] Exam: MR Knee (C-) CPT 17899 - Right Room Description: [facility] 3T MRI Joint Ext Lower W/O Contrast Right CLINICAL INDICATION: Moderate daily right knee pain for years with swelling and instability. History of a fall on 10/17/2024. Clinical concern for medial meniscal tear. TECHNIQUE: MRI of the right knee was performed without intravenous contrast. COMPARISON: MRI of the right knee dated 09/13/2013 and right knee radiographs dated 07/04/2022. FINDINGS: Joint effusion: Small joint effusion. Mild scarring in Hoffa's fat pad. Menisci: The medial meniscus is intact. There is a partially discoid lateral meniscus with no evidence for lateral meniscal tear. Tendons and ligaments: The ACL and PCL are intact. The collateral ligaments are unremarkable. The iliotibial band is unremarkable. The extensor mechanism is normal. Articular cartilage and bone: Irregular full-thickness chondral loss is seen over much of the lateral patellar facet with adjacent subchondral marrow edema like signal. Irregular chondral thinning in the medial patellar facet is seen. Chondral loss in the lateral trochlea also extends full-thickness in the superior, lateral aspect with adjacent subchondral marrow edema like signal. There is mild peripheral cartilage thinning in the medial compartment and chondral thinning of the posterior aspect of the medial femoral condyle with mild adjacent subchondral marrow edema like signal. No focal chondral defects are seen in the lateral compartment. Is degenerative change of the proximal tibiofibular joint with mild chondral thinning and subchondral cysts. IMPRESSION: 1. No evidence of meniscal or cruciate ligament tear. 2. Degenerative change greatest in the patellofemoral joint, progressed as compared to 2014. I have personally reviewed the images and I agree with this report. WSN: [id number] Ordering Physician: Aaron Toney Electronically Signed By: Glory Toney PA-C [address] [facility] [address], [place], [address], [facility] 11/04/2024 15:07:28 Medical Equipment None Reported. Allergies Allergen ID Allergen Name Allergen Category Reaction Reaction Severity Criticality Documentation Date Start Date Code Code System Note Provider Name and Address Organization Details Recorded Time 319219 aspartame food,medi cation Not available Not available Not available 09/30/2024 47380 24 RxNorm Minnie Samir [facility], [facility] 16:22:00 156954 Augmentin medicatio n Not available Not available Not available 09/30/2024 02571 2 RxNorm Minnie Samir [facility] 16:22:14 217599 Bactrim medicatio n Not available Not available Not available 09/30/2024 66289 9 RxNorm Minnie Samir [facility], [facility] 16:22:23 848798 Iodinated contrast media (substanc e) medicatio n Not available Not available Not available 09/30/2024 38367 2004 SNOMED Minnie Samir rajput, [facility] 5 16:22:30 215034 lactose food,medi cation Not available Not available Not available 09/30/2024 6211 RxNorm Minnie rajput, [facility] 5 16:22:38 439611 Seroquel medicatio n Not available Not available Not available 09/30/2024 67278 RxNorm Minnie Samir rajput, [facility] 5 16:22:45 489298 amoxicill in medicatio n Not available Not available Not available 09/30/2024 723 RxNorm Minnie rajput, [facility] 5 16:22:55 399776 aspirin medicatio n Not available Not available Not available 09/30/2024 1191 RxNorm Minnie rajput, [facility] 5 16:23:19 295529 doxycycli ne Not available Not available Not available Not available 09/30/2024 3640 RxNorm Minnie rajput, [facility] 5 16:23:29 549245 morphine medicatio n Not available Not available Not available 09/30/2024 7052 RxNorm Minnie rajput, [facility] 5 16:23:37 886463 nabumeton e medicatio n Not available Not available Not available 09/30/2024 48333 RxNorm Minnie Samir rajput, [facility] 5 16:23:47 905466 Product containin g penicilli n (product) medicatio n Not available Not available Not available 09/30/2024 67951 8001 SNOMED Minnie rajput, [facility] 5 16:23:53 871284 propranol ol medicatio n Not available Not available Not available 09/30/2024 8787 RxNorm Minnie rajput, [facility] 16:24:05 542320 sulfameth oxazole / trimethop rim medicatio n Not available Not available Not available 09/30/[address] [facility] 16:24:15 504655 Thiazide (substanc e) medicatio n Not available Not available Not available 09/30/2024 [address] [facility] 16:24:26 Medications Name Sig Start Date [...] Diabetes Y Breathing or lung disorders Y Kidney/Bladder Problems Y Anemia Y Seizures/Epilepsy Y Arthritis Y Acid Reflux (GERD) Y Hypertension Y COPD Y Asthma Y Gynecological HistoryNo gynecological history recorded. Obstetrics History GPAL:G 0 P 0 0 0 0 Past Encounters Encounter ID Performer Location Encounter Start Date Encounter Closed Date Diagnosis/Indication Diagnosis SNOMED-CT Code Diagnosis ICD10 Code Diagnosis IMO Codes Diagnosis Note [id number] CELIO Alexander [address] [place] [address] 09/30/2024 15:59:08 10/15/2024 06:54:58 Pain of right knee joint 6975158972 38123 M25.561 729565 Tear of me dial meniscus of knee 891518119 S83.241A 85166939 Chondromal acia of right patella 8738183453 0075793 M22.41 [id number] Health Concerns Section Related Observation LastModified by Organization Detai ls LastModified Time None Recorded Concern Status LastModified by Organization Details LastModified Time None Recorded Advance Directives Directive None Recorded Payers Insurance Date Sequence Insurance Name Policy Number Policy Valdez Covered Member ID Valdez Member ID Guarantor Name 10/15/2024 1 [facility] - DOS ON OR AFTER 2022 - MEDICARE [place]VANTAGE [place] (MEDICARE REPLACEMENT/ADV ANTAGE - PPO) Elizabeth Huang [id number] Elizabeth Huang Notes Date Note Type Note [...] answered and addressed today. Aaron Toney PA-C [address] [place], [place] [address] [address], [place], [address], [facility] 10/01/2024 14:12:27 OBGyn Episode No OBEpisode recorded.
--- OUTSIDE RECORDS SUMMARY | 2024-12-25 17:18 | XMS_ITS | Clinical Summary ---
Author Organization [facility] Address [address] [place] [address] Care Team Providers Care Poleyard Supervisor Name Role Phone Lexa Wilsonsun Sharpe Primary Care Provider [phone] Allergies Active Allergy Reactions Criticality Noted Date [...] mellitus 12/05/2021 Hearing loss 12/05/2021 Overview (12/05/2021): [facility] audiology History of total hysterectom y with bilateral salpingo-oophorectomy (BSO) 12/05/2021 Lower urinary tract infectious disease 2 Menopausal syndrome 12/05/2021 Obesity 12/05/2021 Osteoarthritis 12/05/2021 Pelvic pain in female 12/05/2021 Pernicious anemia 12/05/2021 Posttraumatic stress disorder 12/05/2021 Respiratory abnormalities 12/05/2021 Shoulder pain 12/05/2021 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 Dr Macdonald [facility] Asthma 06/16/2013 Overview (12/05/2021): Asthma [...] history exists Medical Devices Implanted Type Area Hog Sticker Device Identifier Shelf Expiration Date Model / Serial / Lot [place] Suture Double Loaded With White/Blue White/Black Suturetape [employer] - [id number] Implanted:Qty: 1 on 04/02/2020 by Luis Minor MD at [facility] Implant Right: Shoulder [employer] 01/11/2023 [id number] / / [id number] Insurance [facility] [place] [id number] Advance Directives * Full Code (Latest Code Status on File) Date Activated Date Inactivated Comments 04/02/2020 10:29 AM 04/02/2020 6:36 PM Healthcare Agents on File Name Relationship Healthcare Agent [facility] p Communication Pilar Olvera Sister Next of Kin [phone] (Kamala griffin) Care Teams Poleyard Supervisor Relationship Specialty Start Date End Date Clare Wilson [address] [place] [phone] PCP - General Family Medicine 09/10/23
--- OUTSIDE RECORDS SUMMARY | 2024-12-25 17:18 | XMS_ITS | Data Portability ---
Author Organization [place] - [facility] Address [address] [place] [id number] Assessment Encounter Date Assessment Date Assessment LastModified [...] after care of this patient according [facility] prevention protocols. Time On Scene with Patient: 00:41:51 Not available 11/01/2019 16:50:03 11/23/2019 11/23/2019 Overview/History : 59yoF known to pmx asthma, bipolar, DM, HTN is seen today [...] after care of this patient according to [facility]'s infection prevention protocols. Time On Scene with Patient: 00:18:09 [email or web address] Not available 11/23/2019 11:49:44 Plan of Treatment Reminders Order Date Submit Date Provider Last Modified By Organization Details Last Modified Time Details Appointments None recorded. Lab 6+ iStat 2019 020 zak Spr - Home, [address] [place], [address], 0 21:16:36 creatinin e, blood 2019 020 zak Spr - Home, [address] [facility], [place], [address], 0 21:16:35 Referral None recorded. Procedures None recorded. Surgeries None recorded. Imaging XR, lumbosacr al spine - No COIVD Sxs or exposure 2019 LORE [facility] ([facility]), [address], [place], [address], 0 17:40:23 Medication Orders naproxen 500 mg tablet 2019 [email or web address] [id number], [address] [place] [address], [address], 0 09:58:29 Lidoderm 5 % topical patch 2019 INTERFACE [facility], [address] [place] [address], [address], 0 15:29:37 methocarb bhavani 500 mg tablet 2019 INTERFACE [facility], [address] [place] [address], [address], 0 15:29:37 ketorolac 30 mg/mL (1 mL) injection solution 2019 020 [email or web address] [facility], [address] [place] [address], [address], 0 15:30:29 prednison e 10 mg tablet 2019 [email or web address] Not available 0 18:42:27 lidocaine 4 % topical cream 2019 INTERFACE [facility], [address] [place] [address], [address], 0 16:25:56 prednison e 20 mg tablet 2019 INTERFACE [facility], [address] [place] [address], [address], 0 16:26:02 sodium chloride 0.9 % intraveno us solution 2019 [email or web address] [facility], [address] [place] [address], [address], 0 16:13:18 Zofran 2 mg/mL intraveno us solution 2019 020 [email or web address] [facility], [address] [place], [address], 0 21:16:37 Patient TargetsNo targets recorded. Patient Instructions Encounter Date Encounter Id Patient Instructions Last Modified By Organization Details Last Modified Time 08/19/[id number] Thank you for yo ur visit with [facility] today. We cannot always find the exact [...] in your condition between 8am-10pm, please call [facility] at [phone] to help navigate your care. Acute Nausea [...] caused by toxins released from food that g oes bad as well as some types of bacteria [...] disease, do not use Tylenol. Ask your DYNAMICIST how to address fever if you are concerned about Tylenol use. 3) Anti-diarrheal medicines: These are available sbzv-vac-sqagkkm, but in some cases are not recommended and can even worsen some cases of intestinal problems. Ask your DYNAMICIST if you should use them. In children [...] with one of the PCP suggestions from [facility]. SEEK CARE IMMEDIATELY IF: 1) You are [...] in your condition between 8am-10pm, please call [facility] at [phone] to help navigate your care. [email or web address] Not available 08/19/2019 20:45:42 08/31/2019 [id number] Thank you for yo ur visit with [facility] today. We cannot always find the exact [...] in your condition between 8am-10pm, please call [facility] at [phone] to help navigate your care. Thank you for your visit with [facility] today. You do not appear to have [...] in your condition between 8am-10pm, please call [facility] at [phone] to help navigate your care. [email or web address] Not available 08/31/2019 16:24:13 11/01/2019 [id number] Thank you for yo ur visit with [facility] today. It appears you have lower back [...] symtpoms worsen then please follow up with [facility]. Follow up with your primary care provider or specialist within 24-48 hours to be rechecked . [...] condition between 8am-10pm, please call [facility] at [phone] to help navigate your care. Not available 11/01/2019 15:29:26 11/23/2019 [id number] STOP TAKING THE IBUPROFEN BEGIN TAKING THE [...] PAIN [facility]. We cannot always find the [...] condition between 8am-10pm, please call [facility] at [phone] to help navigate your care. [email or web address] Not available 11/23/2019 09:58:05 06/03/2021 [id number] Sinusitis Instructions Basic Information Sinusitis is an [...] headache and sinus pressure Instructions Medications: Decongestants: Xwpe-fxu-nabafxe decongestants such as sudafed are helpful. You should not use these for prolonged periods of time and they may not be contraindicated due to drug interactions with your regular medications or if you have medical problems such as high blood pressure. Ask your DYNAMICIST. decongestant sprays such as Afrin and Yury-synephrine may also help your symptoms. However, if theses are used for over 3 days in a row, the congestion can actually get worse when you stop using them. So, use sparingly. If you have high blood pressure, your DYNAMICIST may not recommend use. nasal steroid drops/spray [...] the syringe firmly but gently while you b reathe in the solution through your nose. Alternate both [...] condition between 8am-10pm, please call [facility] at [phone] to help navigate your care. [email or web address] Not available 06/03/2021 15:24:52 Reason for Referral None Reported. Results Created Date Observation Date Name Description Value Unit Range Abnormal Flag Note LastModifiedBy Organization Detail LastModifiedTime 08/19/19 20 08/19/2019 creat inine , blood crea 0.5 mg/dL 0.6-1. 3 Not Available Spr - Home [address] [place], [address], 08/19/2019 20:44:44 08/19/19 20 08/19/2019 6+ iStat Na 140 mmol/ L 138-14 6 Not Available Spr - Home [address] [place], [address], 08/19/2019 20:44:38 08/19/19 20 08/19/2019 6+ iStat K 3.7 mmol/ L 3.5-4. 9 Not Available Spr - Home [address] [place], [address], 08/19/2019 20:44:38 08/19/19 20 08/19/2019 6+ iStat cL 108 mmol/ L 98-109 Not Available Spr - Home [address] [place], [address], 08/19/2019 20:44:38 08/19/19 20 08/19/2019 6+ iStat BUN 10 mg/dL 8-26 Not Available Spr - Home [address] [place], [address], 08/19/2019 20:44:38 08/19/19 20 08/19/2019 6+ iStat glu 98 mg/dL 70-105 Not Available Spr - Home [address] [place], [address], 08/19/2019 20:44:38 08/19/19 20 08/19/2019 6+ iStat HCT 38 %_pcv 37-47 Not Available Spr - Home [address] [place], [address], 08/19/2019 20:44:38 08/19/19 20 08/19/2019 6+ iStat Hb 12.9 g/dL 12-17 Not Available Spr - Home [address] [place], [address], 08/19/2019 20:44:38 08/03/19 20 08/03/2019 urina lysis , dipst ick Appearance cloudy Not Available Spr - H [address]me [address] [place], [address], 08/03/2019 17:19:58 08/03/19 20 08/03/2019 urina lysis , dipst ick Color yellow Not Available Spr - Home [address] [place], [address], 08/03/2019 17:19:58 08/03/19 20 08/03/2019 urina lysis , dipst ick Glucose negati ve Not Available Spr - Home [address] [place], [address], 08/03/2019 17:19:58 08/03/19 20 08/03/2019 urina lysis , dipst ick Bilirubin negati ve Not Available Spr - Home [address] [place], [address], 08/03/2019 17:19:58 08/03/19 20 08/03/2019 urina lysis , dipst ick Ketones NEG Not Available Spr - Home [address] [place], [address], 08/03/2019 17:19:58 08/03/19 20 08/03/2019 urina lysis , dipst ick Sp. [place] 1.015 Not Available Spr - Home [address] [place], [address], 08/03/2019 17:19:58 08/03/19 20 08/03/2019 urina lysis , dipst ick Blood NEG Not Available Spr - Home [address] [place], [address], 08/03/2019 17:19:58 08/03/19 20 08/03/2019 urina lysis , dipst ick pH 6.5 Not Available Spr - Home [address] [place], [address], 08/03/2019 17:19:58 08/03/19 20 08/03/2019 urina lysis , dipst ick Protein negati ve Not Available Spr - Home [address] [place], [address], 08/03/2019 17:19:58 08/03/19 20 08/03/2019 urina lysis , dipst ick Urobilirubin negati ve Not Available Spr - Home [address] [place], [address], 08/03/2019 17:19:58 08/03/19 20 08/03/2019 urina lysis , dipst ick Nitrites NEG Not Available Spr - [facility] e [address] [place], [address], 08/03/2019 17:19:58 08/03/19 20 08/03/2019 urina lysis , dipst ick Leukocytes + Not Available Spr - ome [address], [place], [address], 08/03/2019 17:19:58 11/01/19 20 11/01/2019 XR, lumbo [...] change s. ELECTR ONICAL LY SIGNED BY KRISHNA MCFADDEN D.O. 020 5:34:0 0 PM EDT. LUMBAR SPINE [...] change s. Electr onical ly signed by KRISHNA MCFADDEN D.O. 020 5:34:0 0 PM EDT. [email or web address] [facility] ([facility]) [address] , [place], [address], 11/27/2019 11:20:00 Result Notes Documentation Provider Name and Address Organization Details Recorded Time Xr, Lumbosacral Spine : LUMBAR SPINE W/ OBLIQ FINDINGS: Lumbar vertebral bodies show a mild degree of degenerative osteophytic spurring. A mild amount of disc height reduction is seen. No acute osseous injury is visualized. Radiodensities overlie the patient, possibly artifactual. Surgical clips are seen. CONCLUSION: Mild degenerative changes. ELECTRONICALLY SIGNED BY KRISHNA NGUYEN D.O. 11/01/2019 5:34:00 PM EDT. LUMBAR SPINE W/ OBLIQ Results: Lumbar vertebral bodies show a mild degree of degenerative osteophytic spurring. A mild amount of disc height reduction is seen. No acute osseous injury is visualized. Radiodensities overlie the patient, possibly artifactual. Surgical clips are seen. Conclusion: Mild degenerative changes. Electronically signed by KRISHNA NGUYEN D.O. 11/01/2019 5:34:00 PM EDT. Poly Vaughan at[place], [place] [facility] 11/27/2019 11:20:00 Problems Name Problem SNOMED Code Status Onset Date Resolution Date Notes Provider Name and Address Organization Details Recorded Time Asthma 061969296 Active 020 ANI MERRITT NP [address], [place], [address] , [place] [facility] 0 17:18:03 Problem Notes None recorded. Procedures Surgical History Date Name Laterality Status Provider Name and Address Organization Details Recorded Time 0 IV Start Procedure - DH completed ANIJONO MERRITT NP [address], [place], [address], [place] [facility] 08/19/2019 20:40:42 Imaging Results None recorded. Procedure Notes None recorded. Medical Equipment None Reported. Allergies Allergen ID Allergen Name Allergen Category Reaction Reaction Severity Criticality Documentation Date Start Date Code Code System Note Provider Name and Address Organization Details Recorded Time 208102 Bactrim medicatio n Not available Not available Not available 08/03/2019 11766 9 RxNorm ANI KRAUSJACINTO , CHRISTIANO [address], [place], [address], [place] [facility] 0 17:09:16 358254 morphine medicatio n Not available Not available Not available 08/03/2019 7052 RxNorm ANI KRAUSCHRISTIANO CASEY [address], [place], [address], [place] [facility] 0 17:09:23 255704 Inderal medicatio n Not available Not available Not available 08/03/2019 69470 0 RxNorm ANI KRAUSJACINTO , DYNAMICIST [address], [place], [address], [place] [facility] 0 17:09:56 813106 Iodinated contrast media (substanc e) medicatio n Not available Not available Not available 08/03/2019 44956 2003 SNOMED ANI RENÉ , DYNAMICIST [address], [facility] [place], [address], [place] [facility] 0 17:10:22 919490 Product containin g penicilli n (product) medicatio n Not available Not available Not available 11/01/2019 55401 8001 SNOMED FELIX CHRISTINE, PA [address], [place], [address], [place] [facility] 0 [...] Available N ot Available Vitals Date Recorded Respiratory rate Oxygen saturation Oxygen saturation in Arterial blood by Pulse oximetry Body temperature Heart rate Systolic And Diastolic Provider Name and Address Organization Details Last Updated DateTime 2 18 /min 98 % 98 % 97.7 [degF] 74 /min 114/68 mm[Hg] Not Available [facility] 2 14:57:34 Date Recorded Body temperature Respiratory rate Heart rate Oxygen saturation Oxygen saturation in Arterial blood by Pulse oximetry Systolic And Diastolic Provider Name and Address Organization Details Last Updated DateTime 0 97.9 [degF] 14 /min 68 /min 97 % 97 % 118/80 mm[Hg] Not Available [facility] 0 20:20:07 Date Recorded Respiratory rate Oxygen saturation Oxygen saturation in Arterial blood by Pulse oximetry Heart rate Body temperature Systolic And Diastolic Provider Name and Address Organization Details Last Updated DateTime 0 18 /min 97 % 97 % 75 /min 97.9 [degF] 106/64 mm[Hg] Not Available [facility] 0 16:13:19 Date Recorded Heart rate Body temperature Oxygen saturation Oxygen saturation in Arterial blood by Pulse oximetry Respiratory rate Systolic And Diastolic Provider Name and Address Organization Details Last Updated DateTime 0 75 /min 97.2 [degF] 97 % 97 % 16 /min 112/68 mm[Hg] Not Available [facility] 0 15:09:28 Date Recorded Heart rate Oxygen saturation Oxygen saturation in Arterial blood by Pulse oximetry Body temperature Respiratory rate Systolic And Diastolic Provider Name and Address Organization Details Last Updated DateTime 0 90 /min 98 % 98 % 98.3 [degF] 18 /min 112/58 mm[Hg] Not Available [facility] 0 09:52:46 Social History Question Answer Notes LastModified by Organizat ion Details LastModified Time Tobacco Smoking Status Former Smoker ANI MERRITT NP [address] [facility] [place], [address], [place] [facility] 08/03/2019 17:19:22 Do You Have An Advance [...] History Condition Response Coronary Artery Disease N COPD N Depression Y Cancer N Stroke N High Cholesterol N Kidney Disease N Diabetes Y Asthma Y Pulmonary Embolism N Hypertension Y Gynecological HistoryNo gynecological history recorded. Obstetrics History GPAL:G 0 P 0 0 0 0 Past Encounters Encounter ID Performer Location Encounter Start Date Encounter Closed Date Diagnosis/Indication Diagnosis SNOMED-CT Code Diagnosis ICD10 Code Diagnosis IMO Codes Diagnosis Note [id number] ANI MERRITT NP [facility] - [facility] [address] [place] [place] [address] 08/03/2019 17:07:49 08/04/2019 16:16:45 Abdominal pain 40835197 R10.9 [id number] ANI MERRITT NP [facility] - HOME [address] [place] [address] 08/19/2019 20:15:27 08/20/2019 17:21:09 Dizziness present 277450069 R42 Acute vomiting 49886220 R11.10 [id number] ANI MERRITT NP [facility] - HOME [address] [place] [address] 08/31/2019 16:09:02 09/03/2019 13:28:55 Sciatica 16422472 M54.32 [id number] KINA PHILLIPS [facility] - [facility] [address] [place] [address] 11/01/2019 14:16:21 11/03/2019 15:44:39 Lumbago with sciatica 179554697 M54.42 [id number] KINA ROGERS [facility] [address] [facility] [place] [address] 11/23/2019 09:30:22 11/27/2019 10:52:45 Pain of right wrist 4795491906 61403 M25.531 [id number] KINA Kothari [facility] - [facility] [address] [facility] [place] [address] 06/03/2021 14:53:00 06/06/2021 19:57:36 Viral syndrome 817677637 B34.9 Proper Personal Protective Equipment (PPE), including gloves, eye protection and masks were donned and doffed hakeem tuttle and all equipment cleaned using approved technique with germicidal disposable wipes prior to and after care of this patient according to [facility]'s infection prevention protocols. Overview/H istory: 60 yo female with 2-3 days of sinus pressure, congestion and clear drinage, dry cough, and sore throat is seen for eval. She was placed on pred 20mg QD x5d by her route deliverer yesterday. Exam: neuro exam wnl, ENT exam [...] free fluid intake-and will discuss with her route deliverer sunday if there are no improvemen t of symptoms-i f symptoms worsen, she will see emergent re-eval Health Concerns Section Related Observation LastModified by Organization Detai ls LastModified Time None Recorded Concern Status LastModified by Organization Details LastModified Time None Recorded Advance Directives Directive N: Payers Insurance Date Sequence Insurance Name Policy Number Policy Valdez Covered Member ID Valdez Member ID Guarantor Name 08/03/2019 1 [facility] - DOS PRIOR TO 2022 - DUAL ELIGIBLE (MEDICARE REPLACEMENT/ADV ANTAGE - HMO) Elizabeth Wray Reina [id number] Elizabeth Perezgent 08/03/2019 1 *SELF PAY* Elizabeth Perezgent [id number] Elizabeth Perezgent 08/03/2019 1 [facility] - DOS PRIOR TO 2022 - DUAL ELIGIBLE (MEDICARE REPLACEMENT/ADV ANTAGE - HMO) Elizabeth Perezgent [id number] Elizabeth Perezgent 08/19/2019 1 [facility] - DOS PRIOR TO 2022 - DUAL ELIGIBLE (MEDICARE REPLACEMENT/ADV ANTAGE - HMO) Elizabeth Perezgent [id number] Elizabeth Perezgent 07/01/2020 1 [facility] - DOS PRIOR TO 2022 - DUAL ELIGIBLE (MEDICARE REPLACEMENT/ADV ANTAGE - HMO) Elizabeth Wray Vernonia [id number] Elizabeth Perezgent 07/01/2020 1 [facility] - MEDICARE PREFERRED (MEDICARE REPLACEMENT HMO) Elizabeth Wray Reina [id number] Elizabeth Perezgent 06/06/2021 1 [facility] - DOS PRIOR TO 2022 - DUAL ELIGIBLE (MEDICARE REPLACEMENT/ADV ANTAGE - HMO) Elizabeth Wray Reina [id number] Elizabeth Perezgent Notes Date Note Type Note Provider Name and Address Organization Details Recorded Time 08/19/2019 text/html Pt reports she has a hx of vertigo, states it started [...] threw up about 1 hour ago. ANI MERRITT NP [address], [place], [address], [place] [facility] 08/19/2019 21:17:01 08/31/2019 text/html Pt reports left hip pain that has been dx as sciatica. She has gone for an evaluation for PT and is awaiting insurance approval. Pt has been referred to a hip specialist at [facility] and confirmed that it was sciatica. [...] for the hip pain as well. ANI MERRITT NP [address], [place], [address], [place] [facility] 08/31/2019 16:58:16 11/01/2019 text/html 59 yo female known to and new to this provider c/o [...] loss of B/B control. KINA PHILLIPS [address], [place], [address], [place] [facility] 11/01/2019 16:52:45 11/23/2019 text/html 59yoF known to pmhx asthma, depression, DM and HTN is [...] denies any other complaints. KINA ROGERS [address], [place], [address], [place] [facility] 11/23/2019 11:49:51 06/03/2021 text/html General HPI Temp late - DHReported by Patient 60 yo female [facility] a [facility] (+) sinus headache 2-3 dayspain now 04/21 improved with APAPpt reports she spoke with her route deliverer Lakshmi Luna yesterdayand she was prednisone 20mg QD x5dshe has not called them back since yesterdaynares are patent and she reports some clear to green drainageshe has some assoc sore throat, and dry cough KINA Kothari [address], [place], [address], [place] [facility] 06/03/2021 15:30:17 OBGyn Episode No OBEpisode recorded.
--- OUTSIDE RECORDS SUMMARY | 2024-12-25 17:18 | XMS_ITS | Encounter Summary ---
Author Organization [facility] Address [address] [place] [address] Care Team Providers Care Manager Planning Name Role Phone Clare Wilson Primary Care Provider [phone] Encounter Details Date Type Department Care Team (Late st Contact Info) Description 01/16/2024 Orders Only [facility] Surgery [address] [place], [place] [phone] Jesus Gillis MD [address] [place] [address] Social History Tobacco Use Types Packs/Day Years [...] on filedocumented in this encounter Care Teams Manager Planning Relationship Specialty Start Date End Date Clare Wilson [address] [place] [address] PCP - General Family Medicine 09/10/23 documented as of this encounter
--- OUTSIDE RECORDS SUMMARY | 2024-12-25 17:18 | XMS_ITS | Encounter Summary ---
Author Organization [facility] Address [address] [place] [address] Encounters * CPT with [facility] at [email or web address] on 2024-12-22 { reasonForRequest : pain in side , patientReports : ,"denies :[ Sharp focal or diffuse abdominal pain , Vomiting blood/coffee ground material , Bloating, jaundice new onset with pain , Nausea and vomiting greater than 2 hours with abdominal pain , Tearing pain that radiates to back , Food Im paction ], chiefComplaints : Abdominal Pain , pmh : COPD/Asthma, Severe Persistent Mental Illness (SPMI), Hypertension, Anxiety Disorder, Rheumatoid Arthritis,Pneumonia, Kidney Stones , allergies : Aspirin, Doxycycline, Morphine, Bactrim,Penicillins, Augmentin , otherAllergies :null, painAssessment : , visitOutcome : , additionalComments : 64 y.o female complainsof Abdominal Pain\nPatient calling stating on Sunday she was having left lower sided abdominal pain. Patient states today she is having R upper abdominal pain. Patient reports one episode of diarrheaearlier this morning. Patient denies nausea or vomiting. Patient reports she took Tylenol for the pain. I provided information on the mobile health provider response time and advised the patient and/or caregiver to monitor reported signs and symptoms. I discussed the warning signs of when to seek emergency care -Allison Escobar RN } Patient Chief complaint today of right upper abdominal quadrant pain. Patient notes that all signs and symptoms have been occurring for 48 hours prior to [facility] arrival on scene today. Patient notes that [...] bowel movements. patient today Would appreciate a generalassessment as well as treatment if possible. Patient [...] lower extremity edema. Upon assessment of abdomen [facility] provider notes no Rigidity/ deformity or trauma to the area. Patient does note tenderness upon palpation in upper right quadrant no guarding. Patientis Cheek x 4 with a GCS score of 15. 22 gauge IV placed in right hand. Unable to acquire blood work. [facility] Lesli Vaca consulted Patient is informed that due to her Chief complaint as well as past medical history, it is recommended for her to be seen at a center of higher care for diagnostic imaging. Patient agrees. [facility] provider contact local emergency services. [facility] calls ahead to [facility] in [facility] for report. [facility] provider remains on scene to provide full transfer of care to 911 crew. IV_(FLUIDS_AND/OR_MEDICATION), MEDICATION_IM Written by [facility] on 2024-12-22
[2024-12-25 17:39] LABS: MANUAL DIFF FLAG NO
[2024-12-25 17:54] LABS: Hematocrit 34.8 % (37.0-47.0); Hemoglobin 11.2 g/dl (12.0-16.0); Imm Gran Abs Auto 0.01 X10*3/uL (0.00-0.03); Imm Gran Pct Auto 0.3 % (0.0-0.4); Lymphocytes Absolute Auto 1.7 X10*3/uL (1.2-4.9); Mean Corpuscular HGB Conc 32.2 g/dl (31.0-35.0); Mean Corpuscular Hemoglobin 29.3 pg (27.0-33.0); Mean Corpuscular Volume 91.1 fL (80.0-98.0); NRBC Abs Auto 0.000 X10*3/uL (0.0-0.012); NRBC Pct Auto 0.0 /100WBC (0.0-0.2); Platelet Count 269 X10*3/uL (160-400); Red Blood Count 3.82 X10*6/uL (4.20-5.50); White Blood Count 3.9 X10*3/uL (4.8-10.8)
[2024-12-25 18:18] LABS: Alanine Aminotransferase 19 U/L (0-31); Aspartate Amino Transferase 24 U/L (5-31); Estimated Glomerular Filt Rate > 60
== END 2024-12-25 13:51 | disposition home or self-care (01) ==
LOC: HO.HKASLDS 13:50
PROVIDERS: PCP Family Medicine; Visit Provider Internal Medicine Rheumatology
DX: Z79.899 Other long term (current) drug therapy (principal)
CPT/HCPCS: 36415; 82565; 84450; 84460; 85025; 85652; 86140

== ENCOUNTER 2024-12-29 09:39 | Outpatient (AMB) | payer OTHER, SELFPAY ==
--- NOTE | 2024-12-29 09:41 | A.OFFVIS_ITS ---
Vital Signs 12/29/24 09:43 Height 5 ft 1 in Weight 198 lb BMI 37.4 BP 132/58 L Blood Pressure Location Lt brachial Position Sitting Respiration 16 Pulse 87 Pulse Source Pulse Oximeter Pulse Oximetry (%) 95 Oxygen Delivery Method Room Air Intake Visit Reasons: LEFT SHOULDER INJECTION W/ULTRASOUND [employer] Manager Required: No Health Program Manager: Health Program Manager Present Accompanied by: Agustin T Allergies cephalexin Allergy (Intermediate, Verified 12/29/24 09:45) Diarrhea Iodinated Contrast Media (IV CONTRAST) Allergy (Intermediate, Verified 12/29/24 09:45) DIFF BREATHING morphine (MORPHINE) Allergy (Intermediate, Verified 12/29/24 09:45) HIVES nabumetone (NABUMETONE) Allergy (Intermediate, Verified 12/29/24 09:45) HIVES sulfamethoxazole (From BACTRIM) Allergy (Intermediate, Verified 12/29/24 09:45) HIVES trimethoprim (From BACTRIM) Allergy (Intermediate, Verified 12/29/24 09:45) HIVES dicloxacillin Allergy (Unknown, Verified 12/29/24 09:45) Rash dyclonine Allergy (Unknown, Verified 12/29/24 09:45) Unknown propranolol (Inderal LA) Allergy (Unknown, Verified 12/29/24 09:45) unknown quetiapine (Seroquel) Allergy (Unknown, Verified 12/29/24 09:45) rash seafood Allergy (Unknown, Verified 12/29/24 09:45) Unknown Sulfa (Sulfonamide Antibiotics) Allergy (Unknown, Verified 12/29/24 09:45) hives amoxicillin (From Augmentin) Allergy (Verified 12/29/24 09:45) stomach pain clavulanic acid (From Augmentin) Allergy (Verified 12/29/24 09:45) stomach pain polyethylene glycol (From Golytely) Adverse Reaction (Severe, Verified 12/29/24 09:45) Hallucinations polyethylene glycol 3350 (From Golytely) Adverse Reaction (Severe, Verified 12/29/24 09:45) Hallucinations potassium chloride (From Golytely) Adverse Reaction (Severe, Verified 12/29/24 09:45) Hallucinations sodium (From Golytely) Adverse Reaction (Severe, Verified 12/29/24 09:45) Hallucinations sodium bicarbonate (From Golytely) Adverse Reaction (Severe, Verified 12/29/24 09:45) Hallucinations sodium chloride (From Golytely) Adverse Reaction (Severe, Verified 12/29/24 09:45) Hallucinations sodium sulfate (From Golytely) Adverse Reaction (Severe, Verified 12/29/24 09:45) Hallucinations doxycycline (DOXYCYCLINE) Adverse Reaction (Intermediate, Verified 12/29/24 09:45) NAUSEA & VOMITTING From INDERAL Allergy (Intermediate, Uncoded 12/29/24 09:45) RASH Codeine Sulfate Allergy (Unknown, Uncoded 12/29/24 09:45) Unknown Medication List - Last Reconciled 12/29/24 by Shannon Webb LPN albuterol sulfate 90 mcg/actuation (Ventolin HFA) 2 puffs inhalation Q4H PRN aripiprazole 10 mg PO DAILY ascorbic acid (vitamin C) (Vitamin C) 500 mg PO DAILY carbamazepine ER (Tegretol XR) 400 mg PO BID celecoxib 200 mg PO BID cholecalciferol (vitamin D3) PO diclofenac sodium 1% 1 g topical QID PRN dicyclomine 10 mg PO Q6H PRN estradiol 1 mg PO DAILY fexofenadine 180 mg PO BID fluticasone propion-salmeterol 500-50 mcg/dose 1 ea inhalation BID folic acid 1 mg PO DAILY gabapentin 800 mg PO TID lactase (Dairy-Aid) 3,000 - 6,000 units (1 - 2 x 3,000 unit) PO TID PRN lidocaine 5% 1 patch topical DAILY lisinopril 20 mg PO DAILY lorazepam 1 mg PO DAILY PRN meclizine 25 mg PO QID melatonin 9 mg PO BEDTIME meloxicam 15 mg PO DAILY metformin 500 mg PO BID methotrexate sodium 15 mg (6 x 2.5 mg) PO QWEEK montelukast (Singulair) 10 mg PO BEDTIME multivitamin 1 tab PO DAILY omalizumab (Xolair) mg subcut Q2W omalizumab (Xolair) 300 mg subcut Q2W ondansetron 4 mg PO Q8H PRN pantoprazole 40 mg PO BID prazosin 4 mg PO BEDTIME risperidone 4 mg PO BEDTIME risperidone 1 mg PO BEDTIME sertraline 50 mg PO DAILY sertraline 25 mg PO DAILY sumatriptan succinate 100 mg PO DAILY PRN topiramate 150 mg PO BID topiramate 50 mg PO BID trazodone mg PO umeclidinium 62.5 mcg/actuation (Incruse Ellipta) 1 inh inhalation DAILY vitamin B complex (Vitamins B Complex capsule) 1 cap PO DAILY [wrist splint Wear nightly and as much as possible throughout the day] HPI HPI LEFT SHOULDER INJECTION W/ULTRASOUND: Details: History of Present Illness The patient is a 64-year-old female presenting for a subacromial shoulder injection for calcific tendinopathy of the infraspinatus tendon. The condition involves the accumulation of calcium deposits in the infraspinatus tendon, leading to shoulder pain and limited range of motion. The patient has been experiencing significant discomfort, which has prompted the decision to proceed with the injection. Pain Description - Location: Left shoulder - Quality: Pain associated with calcific deposits - Exacerbating factors: Movement of the shoulder - Relieving factors: Injection planned to alleviate pain Procedure - Procedure: Subacromial shoulder injection for calcific tendinopathy of the infraspinatus tendon - Ultrasound guidance was used to visualize the infraspinatus tendon and guide the needle placement in an out of place technique. - Medication: 40 mg of Kenalog mixed with 0.5% bupivacaine, 5 mL total, was injected without pain on injection. - Outcome: The patient tolerated the procedure well without any side effects or blood loss. Image saved. [facility] Medical History RLQ abdominal pain Spinal stenosis TMJ (dislocation of temporomandibular joint) Migraine COPD (chronic obstructive pulmonary disease) Asthma Depression Anxiety Prediabetes Arthritis of right knee Umbilical hernia Chronic idiopathic constipation Surgical History History of shoulder surgery (~01/2024) History of carpal tunnel release Hx of colonoscopy History of esophagogastroduodenoscopy (EGD) Hx of hand surgery H/O eye surgery Hx of hysterectomy Family History Father Bone cancer Mother Diabetes Family/Other Family history of breast cancer Social History Household Members: None Housing: Apartment Are you a primary home day care provider to a significant other at home: No Do you presently have visiting nurse or other home services: No Alcohol intake: current Alcohol intake frequency: does not drink Patient Tobacco Use Status: Former Tobacco user service: No Physical Exam Vital Signs: Last Vital Signs Pulse 87 12/29/24 09:43 Resp 16 12/29/24 09:43 BP 132/58 L 12/29/24 09:43 Pulse Ox 95 12/29/24 09:43 Oxygen Delivery Method Room Air 12/29/24 09:43 BMI result Body Mass Index 37.4 Assessment & Plan Assessment & Plan (1) Calcific tendonitis of left shoulder: Code(s): M75.32 - Calcific tendinitis of left shoulder Category: Medical Plan Plan Patient was informed and verbally consented to the use of an ambient scribe for clinic note documentation during this visit. 1. Calcific Tendinopathy Of The Infraspinatus Tendon - Administered subacromial shoulder injection under ultrasound guidance to alleviate pain and improve shoulder function. Discussion Notes The patient was informed about the procedure, including the use of ultrasound guidance for accurate needle placement and the medications involved in the injection. The potential benefits of pain relief and improved shoulder function were discussed, along with the need to monitor for any adverse effects post- procedure. Patient Instructions - Monitor for any signs of adverse reactions such as increased pain, swelling, or redness at the injection site. - Follow up with the clinic if symptoms do not improve or if there are any concerns. Coding Level of Care Code Procedure Only Diagnoses Calcific tendonitis of left shoulder M75.32
[2024-12-29 09:43] VITALS: BP 132/58; PULSE 87; RESP 16; O2SAT 95; BMI 37.4
== END 2024-12-29 10:31 | disposition home or self-care (01) ==
LOC: HO.PMC 09:40
PROVIDERS: PCP Family Medicine; Visit Provider Internal Medicine
DX: M75.32 Calcific tendinitis of left shoulder (principal)
CPT/HCPCS: 20611

== ENCOUNTER → 2024-12-29 09:39 | Outpatient (BNVA) | payer OTHER, SELFPAY | PROVIDERS: PCP Family Medicine; Visit Provider Internal Medicine | DX: M75.32 Calcific tendinitis of left shoulder (principal) | CPT/HCPCS: 20611; J0665; J3301 ==